=== PATIENT | female | born 1955 | race African-American/Black ===

== ENCOUNTER 2020-04-18 15:00 | Inpatient (IN) | payer MEDICARE, MEDICAID, SELFPAY ==
[2020-04-18 15:01] VITALS: BP 158/100; PULSE 89; RESP 19; TEMP 36.1; O2SAT 99; BMI 19.3
--- NOTE | 2020-04-18 15:05 | ED.RN ---
ENRICO GIBSON - [phone], SABRINA MANRIQUE - [phone], FRIENDS THAT CAN BE CALLED IF NEEDED.
--- NOTE | 2020-04-18 15:31 | ED.VISSUMM ---
- ER Visit Summary Date of Service: 04/18/20 Chief Complaint: Requesting detox for alcohol abuse History of Present Illness: The patient is a 65 F history of alcohol and cocaine abuse. Prior DVT and COPD. Currently has no physician is not taking her medications. Patient states that she has been sober for about a year but started drinking again heavily daily and also smoking crack cocaine. She denies being ill. She is requesting help. She states her last detox was 13 years ago. Physical Examination: Older female no acute distress vital signs stable afebrile. H EENT exam unremarkable. Neck nontender. Lungs clear to auscultation. Heart regular rhythm no murmur. Rate about 90. Chest were nontender. Abdomen soft nontender. Patient moving all 4 extremities. No track hill. 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 Neurologically she is awake and alert. Moving all 4 extremities. Test Results: Screening labs obtained. Urine for drugs abuse pending and will be evaluated by the hospitalist. Emergency Department Course and Treatment: I spoke to the hospitalist and he will admit the patient to general medical floor for detox Treatment Plan: Detox inpatient Disposition: admission Impression: Requesting detox for alcohol abuse History of alcohol and cocaine abuse History of COPD History of DVT This note was generated with [employer] dictation software. It may contain incorrect words, spelling, and punctuation that were not noted in review of the chart prior to signing ED Disposition - Plan for ED Patient: Referrals: NOT,DEFINED [Primary Care Provider] -
--- NOTE | 2020-04-18 15:49 | CM.ED ---
Social Work Consult: Substance Abuse Informant: Self-Referral Met with patient in room. Introduced self as well as social media editor role. Patient unable to stay still or focus on this social workers questions. Patient does report that drug of choice is anything but I don't like needles or pills. Patient states to have used Cocaine today. Patient reports to be homeless and from [place]. Patient states to have a history of Depression and inpatient psychiatric treatment but it is unclear as to when inpatient treatment was received. Patient states to have been clean for 13 years and then relapsed sometime in the past year. Patient restless and not wanting to speak further. Patient updated on [facility] program, patient is wanting to be admitted for medical management of withdrawal symptoms. Patient is seeking residential. Collaborating with Dr. Jesus. Plan is for admission. Telephone call to Debbie Abebe. Updated on patient being admitted and needing assessment completed. Debbie reports plan to complete assessment with patient tomorrow. Velma GODFREY, LUIS EDUARDO
[2020-04-18 16:00] VITALS: BP 158/100; PULSE 89; RESP 19; TEMP 36.6; O2SAT 99
[2020-04-18 16:04] LABS: Absolute Lymphocyte Count 2.36 X10^3/uL (0.83-4.51); Absolute Neutrophil Count 3.2 X10^3/uL (2.0-7.7); Basophil# 0.04 X10^3/uL; Basophil% 0.6 % (0-1); Eosinophil# 0.39 X10^3/uL; Eosinophils% 5.8 % (0-5); Hematocrit 44.9 % (37-47); Hemoglobin 14.9 g/dL (12.0-15.0); Lymphocyte # 2.36 X10^3/ul (4.0); Mean Corp Hgb Conc 33.2 g/dL (32-36); Mean Corpuscular Volume 93.3 fL (81-99); Mean Platelet Vol. 10.1 fl (6.2-12.0); Monocyte# 0.71 X10^3/uL; Monocyte% 10.5 % (0-10); NRBC Flagged by Analyzer 0 % (0-5); Neutrophil # 3.23 X10^3/uL (2.7-7.7); Platelet Count 235 K/mm3 (150-450); RBC Distribution Width CV 14.9 % (11.6-14.6); RBC Distribution Width SD 51.3 fl (35.1-43.9); Red Blood Count 4.81 M/mm3 (4.2-5.4); White Blood Count 6.7 K/mm3 (4.4-11.0)
[2020-04-18 16:20] LABS: Anion Gap 4 (5-15); BUN 29 mg/dL (7-18); BUN/Creat Ratio 23.2 RATIO (10-20); Calcium,Total 9.1 mg/dL (8.5-10.1); Chloride 108 mmol/L (98-107); Creatinine, Serum 1.25 mg/dL (0.55-1.02); EST Glomerular Filtration Rate 46 mL/min (>60); Est Glom Filt Rate - Afr Amer 55 mL/min (>60); Estimated Creatinine Clearance 39.07 ml/min; Glucose 101 mg/dL (74-106); Sodium Level 143 mmol/L (136-145)
[2020-04-18 16:30] VITALS: BMI 19.3
[2020-04-18 16:34] VITALS: BMI 19.3
[2020-04-18 16:46] LABS: Amphetamine Urine VISTA NEGATIVE (<1000 ng/mL); Barbiturate Urine VISTA NEGATIVE (< 200 ng/mL); Benzodiazepine Urine VISTA NEGATIVE (< 200 ng/mL); Cocaine Urine VISTA POSITIVE (< 300 ng/mL); Ecstacy Urine VISTA NEGATIVE (< 500 ng/mL); Methadone Urine VISTA NEGATIVE (< 300 ng/mL); PCP Urine VISTA NEGATIVE (< 25 ng/mL); THC Urine VISTA POSITIVE (< 50 ng/mL); Vista UDS pH Range 5
--- NOTE | 2020-04-18 16:54 | PCM.HP.STD ---
<Tory Terrell - Last Filed: 04/18/20 16:54> Problem List (1) Cocaine abuse Status: Acute (2) Alcohol abuse Status: Acute (3) History of DVT (deep vein thrombosis) Status: Chronic (4) Tobacco abuse Status: Chronic (5) COPD (chronic obstructive pulmonary disease) Status: Chronic (6) Depression Status: Chronic History of Present Illness Date of Admission: 04/18/20 Chief Complaint: Polysubstance use, alcohol withdrawal. The patient is a 65 year old F who presents the emergency room due to polysubstance use and alcohol withdrawal. Patient states she snorts/smokes crack daily and drinks beer or wine daily as well. HPI difficult to obtain as patient is falling asleep and laughing/appears under the influence during exam. Patient states she has been in multiple treatment programs over the years and at one point in her life was sober for 13 years. She is currently homeless, she is from [place]. When asked how much cocaine she uses, she states a lot. She reports she last used alcohol and cocaine earlier today. Patient requesting long-term treatment and states she is motivated to obtain sobriety. She reports a past medical history of COPD, tobacco dependence, history of DVT, depression. 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 Lives: Homeless Smoking Status: Current every day smoker Tobacco Use: Cigarettes Alcohol: Heavy Drugs: Cocaine, Marijuana - *Family History Maternal History Items: Hypertension Paternal History Items: - - States she does not know anything about that juliocesar Review of Systems Constitutional: Denies: Chills, Fever, Weight Change HEENT: Denies: Head Aches, Sinus Congestion, Sinus Drainage Cardiovascular: Denies: Chest Pain, Palpitations Respiratory: Denies: Cough, Shortness of breath at rest, Sputum production Gastrointestinal: Denies: Abdominal Pain, Nausea, Vomiting Genitourinary: Denies: Dysuria Musculoskeletal: Denies: Joint Pain, Joint Tenderness Skin: Denies: Rash, Wounds Neurological: Denies: Numbness, Tingling, Focal weakness Psychiatric: Reports: Depression. Denies: Anxiety, Homicidal Ideations, Suicidal Ideations Hematologic/ Lymphatic: Denies: Easy Bruising, Easy Bleeding VTE Information - Inpt Only VTE Present on Admission: No VTE Mechan Device Prophylaxis: None VTE Pharm Prophylaxis ordered?: Yes Patient Problems: Active and Suspected Problems Cocaine abuse (Acute) Alcohol abuse (Acute) - Physical Exam Vitals/I&O's: Vital Signs Temp Pulse Resp BP Pulse Ox 97.9 F 89 19 H 158/100 H 99 04/18/20 16:00 04/18/20 16:00 04/18/20 16:00 04/18/20 16:00 04/18/20 16:00 Oxygen Delivery Method Room Air Weight: 119 lb 7.849 oz Body Mass Index (BMI) 19.3 General: - - Drowsy, falls asleep during questioning. Laughing inappropriately. Restless. HEENT: Atraumatic, PERRLA, EOMI, Normocephalic Oral: Dry Mucosa Neck: Supple, No JVD, Negative Carotid Bruits Lungs: Clear to auscultation, Diminished Cardiovascular: Regular rate, No murmurs Abdomen: Bowel Sounds Present, Soft, Non Tender, Non-Distended Extremities: No clubbing, No cyanosis, No edema, Capillary Refill Less than 3 Seconds Skin: No rashes, No breakdown Musculoskeletal: No Tenderness to Palpation of Joints or Extremities Neurological: Cranial nerves II-XII grossly intact, Neuro grossly intact Psych/Mental Status: Impulsive, Restless Laboratory Results 04/18/20 15:10: Urine Opiates Screen NEGATIVE, Urine Methadone Screen NEGATIVE, Ur Barbiturates Screen NEGATIVE, Ur Phencyclidine Scrn NEGATIVE, Ur Amphetamines Screen NEGATIVE, U Methamphetamin-MDMA NEGATIVE, U Benzodiazepines Scrn NEGATIVE, Urine Cocaine Screen POSITIVE H, U Cannabinoids Screen POSITIVE H, Ur Drug Screen Comment 04/18/20 15:55: WBC 6.7, RBC 4.81, Hgb 14.9, Hct 44.9, MCV 93.3, MCH 31.0, MCHC 33.2, RDW Std Deviation 51.3 H, RDW Coeff of Oleg 14.9 H, Plt Count 235, MPV 10.1, Immature Gran % (Auto) 0.100, Neut % (Auto) 48.0, Lymph % (Auto) 35.0, Lumpkin % (Auto) 10.5 H, Eos % (Auto) 5.8 H, Baso % (Auto) 0.6, Absolute Neuts (auto) 3.2, Absolute Lymphs (auto) 2.36, Nucleated RBC % 0 04/18/20 15:55: Sodium 143, Potassium 4.0, Chloride 108 H, Carbon Dioxide 31.0, Anion Gap 4 L, BUN 29 H, Creatinine 1.25 H, Estim Creat Clear Calc 39.07, Est GFR (MDRD) Af Amer 55 L, Est GFR (MDRD) Non-Af 46 L, BUN/Creatinine Ratio 23.2 H, Glucose 101, Calcium 9.1 Current Medications Acetaminophen (Tylenol) 650 mg PO Q6H PRN PRN PRN Reason: Pain Score 1-10/Temp > 100.7 F Dicyclomine HCl (Bentyl) 20 mg PO Q6H PRN PRN PRN Reason: abdominal discomfort Folic Acid (Folic Acid) 1 mg PO DAILY@0800 [facility] Gabapentin (Neurontin) 300 mg PO Q8H PRN PRN PRN Reason: moderate to severe anxiety Hydroxyzine Pamoate (Vistaril Pamoate Capsule) 50 mg PO Q4H PRN PRN PRN Reason: mild anxiety Loperamide HCl (Imodium) 2 mg PO Q4H PRN PRN PRN Reason: LOOSE STOOLS Ondansetron HCl (Zofran) 4 mg IV Q8H PRN PRN PRN Reason: NAUSEA/VOMITING Ondansetron HCl (Zofran) 8 mg PO Q8H PRN PRN PRN Reason: NAUSEA Phenobarbital (Phenobarbital) 97.2 mg PO UD [facility]; Taper Stop: 04/23/20 00:59 Sodium Chloride () 10 - 40 ml IV UD PRN PRN Reason: SALINE FLUSH Thiamine HCl (Vitamin B1) 100 mg PO DAILYCM [facility] Trazodone HCl (Desyrel) 100 mg PO QHS PRN PRN Reason: INSOMNIA Assessment/Plan All Active Problems Cocaine abuse (Acute) Alcohol abuse (Acute) 1. Alcohol withdrawal-phenobarbital taper. PRN regimen for somatic complaints. Folic acid, thiamine, multivitamin supplementation. [facility] protocol. [facility] consult for residential evaluation. EtOH level pending. 2. Polysubstance abuse-tox screen positive for cocaine, marijuana. Patient requesting residential treatment. 3. Mildly increased creatinine-suspect secondary to dehydration. Gentle IV fluids. Trend BMP. 4. Tobacco dependence-encouraged cessation. Nicotine replacement patch. 5. History of DVT-states she was previously on Coumadin however is not been taking medications for several years. 6. Chronic COPD-as needed albuterol aerosol. 7. Depression-not on regimen. Outpatient follow-up. DVT prophylaxis- Lovenox sc This patient was seen by CHICO Vicente under the supervision of Dr. Hutson. <Estevan Hutson F - Last Filed: 04/18/20 18:31> History of Present Illness The patient is a 65 year old F [] Past Medical History Allergies No Known Allergies Allergy (Verified 04/18/20 15:01) - Physical Exam Vitals/I&O's: Vital Signs Temp Pulse Resp BP Pulse Ox 97.7 F L 76 18 153/76 H 95 04/18/20 17:08 04/18/20 17:08 04/18/20 17:08 04/18/20 17:08 04/18/20 17:08 Oxygen Delivery Method Room Air Weight: 119 lb 7.849 oz Body Mass Index (BMI) 19.3 Intake and Output for Last 24 Hours 04/16/20 04/17/20 04/18/20 23:59 23:59 23:59 Intake Total 500 / 500 Balance 500 / 500 Laboratory Results 04/18/20 15:10: Urine Opiates Screen NEGATIVE, Urine Methadone Screen NEGATIVE, Ur Barbiturates Screen NEGATIVE, Ur Phencyclidine Scrn NEGATIVE, Ur Amphetamines Screen NEGATIVE, U Methamphetamin-MDMA NEGATIVE, U Benzodiazepines Scrn NEGATIVE, Urine Cocaine Screen POSITIVE H, U Cannabinoids Screen POSITIVE H, Ur Drug Screen Comment 04/18/20 15:55: WBC 6.7, RBC 4.81, Hgb 14.9, Hct 44.9, MCV 93.3, MCH 31.0, MCHC 33.2, RDW Std Deviation 51.3 H, RDW Coeff of Oleg 14.9 H, Plt Count 235, MPV 10.1, Immature Gran % (Auto) 0.100, Neut % (Auto) 48.0, Lymph % (Auto) 35.0, Lumpkin % (Auto) 10.5 H, Eos % (Auto) 5.8 H, Baso % (Auto) 0.6, Absolute Neuts (auto) 3.2, Absolute Lymphs (auto) 2.36, Nucleated RBC % 0 04/18/20 15:55: Sodium 143, Potassium 4.0, Chloride 108 H, Carbon Dioxide 31.0, Anion Gap 4 L, BUN 29 H, Creatinine 1.25 H, Estim Creat Clear Calc 39.07, Est GFR (MDRD) Af Amer 55 L, Est GFR (MDRD) Non-Af 46 L, BUN/Creatinine Ratio 23.2 H, Glucose 101, Calcium 9.1 04/18/20 17:44: Ethyl Alcohol < 3.0 04/18/20 17:44: Hepatitis A IgM Ab Pending, Hepatitis A Ab Total Pending, Hep Bs Antigen Pending, Hep B Core Total Ab Pending, Hep B Core IgM Ab Pending 04/18/20 17:44: HIV 1&2 Antibody Pending Current Medications Acetaminophen (Tylenol) 650 mg PO Q6H PRN PRN PRN Reason: Pain Score 1-10/Temp > 100.7 F Dicyclomine HCl (Bentyl) 20 mg PO Q6H PRN PRN PRN Reason: abdominal discomfort Enoxaparin Sodium (Lovenox) 40 mg SC DAILY@0600 [facility] Folic Acid (Folic Acid) 1 mg PO DAILY@0800 [facility] Gabapentin (Neurontin) 300 mg PO Q8H PRN PRN PRN Reason: moderate to severe anxiety Hydroxyzine Pamoate (Vistaril Pamoate Capsule) 50 mg PO Q4H PRN PRN PRN Reason: mild anxiety Sodium Chloride () 1,000 mls @ 150 mls/hr IV .Q6H40M [facility] Stop: 04/18/20 23:59 Last Admin: 04/18/20 18:10 Dose: 150 mls/hr Documented by: Loperamide HCl (Imodium) 2 mg PO Q4H PRN PRN PRN Reason: LOOSE STOOLS Nicotine (Nicoderm Cq (Pbkc)) 21 mg TRANSDERM. DAILY [facility] Last Admin: 04/18/20 18:10 Dose: 21 mg Documented by: Nutritional Formula (Lactose Free) (Ensure Enlive) 120 ml PO 4X/DAY [facility] Last Admin: 04/18/20 18:11 Dose: Not Given Documented by: Ondansetron HCl (Zofran) 4 mg IV Q8H PRN PRN PRN Reason: NAUSEA/VOMITING Ondansetron HCl (Zofran) 8 mg PO Q8H PRN PRN PRN Reason: NAUSEA Phenobarbital (Phenobarbital) 97.2 mg PO Q4H [facility]; Taper Stop: 04/23/20 00:59 Last Admin: 04/18/20 18:10 Dose: 97.2 mg Documented by: Sodium Chloride () 10 - 40 ml IV UD PRN PRN Reason: SALINE FLUSH Last Admin: 04/18/20 18:10 Dose: 10 ml Documented by: Thiamine HCl (Vitamin B1) 100 mg PO DAILYCM [facility] Trazodone HCl (Desyrel) 100 mg PO QHS PRN PRN Reason: INSOMNIA Addendum: Dr. Hutson I personally examined the patient and reviewed the chart. I agree with the above. 65-year-old female presents with polysubstance abuse and alcohol withdrawal. She also smokes crack cocaine. She is from [place] however she came down here for detox. She cannot tell me how much alcohol she drinks so she says that that is a lot. She also says it is a lot for the crack that she smokes. On evaluation she is very anxious and restless and she she has periods of being tearful. She states that she lost everything in November including her home and her daughters. She is hopeful that she will be able to get into a long-term inpatient rehab unit. She cannot tell me any medical history of her dad as they are estranged, and her mother had hypertension. We will start her on the alcohol withdrawal protocol with phenobarbital and will obtain a UDS for further clarification of what all she is used. Also obtain a hepatitis panel for completeness. Inpatient E&M: 06456 Init Hosp L3
[2020-04-18 17:08] VITALS: BP 153/76; PULSE 76; RESP 18; TEMP 36.5; O2SAT 95
--- NOTE | 2020-04-18 17:24 | NURSING ---
Patient requests that her son, Aries, be the service advocate contact. Aries was called by this RN at this time to update per patient's request. Demo sheet updated with his information. Both patient and Aries are aware that there are no visitors allowed while in the [facility] program.
[2020-04-18] MEDS: 0.9% Saline Lock 10 ML Syringe IV (18:10)
[2020-04-18] MEDS: 0.9% Normal Saline 1,000 ML 150 ML IV (18:10)
[2020-04-18] MEDS: Phenobarbital 32.4 MG Tablet 64.8 MG PO ×2 (18:10→21:41)
[2020-04-18 18:16] LABS: Alcohol, Blood (Medical)-Serum < 3.0 mg/dL
[2020-04-18 19:16] LABS: HIV - WCH Non-Reactive (Nonreactive)
[2020-04-18 19:55] VITALS: BP 136/67; PULSE 71; RESP 17; TEMP 36.6; O2SAT 95
[2020-04-18 19:56] VITALS: BP 136/67; PULSE 71; RESP 17; TEMP 36.6; O2SAT 95
[2020-04-18] MEDS: Gabapentin 300 MG Capsule PO (21:44)
[2020-04-19 00:23] VITALS: BP 117/65; PULSE 68; RESP 16; TEMP 36.6; O2SAT 98
[2020-04-19] MEDS: Phenobarbital 32.4 MG Tablet 64.8 MG PO ×6 (00:27→20:30)
[2020-04-19 00:32] VITALS: BP 117/65; PULSE 68; RESP 16; TEMP 36.6; O2SAT 98
[2020-04-19 05:13] VITALS: BP 133/69; PULSE 66; RESP 16; TEMP 36.6; O2SAT 96
[2020-04-19] MEDS: Enoxaparin 40 MG/0.4 ML Syringe SC (05:18)
[2020-04-19 08:31] VITALS: BP 127/80; PULSE 72; RESP 16; TEMP 36.6; O2SAT 95
[2020-04-19] MEDS: Folic Acid 1 MG Tablet PO (09:17)
[2020-04-19] MEDS: Thiamine Hydrochloride 100 MG Tablet PO (09:17)
--- NOTE | 2020-04-19 10:08 | CASEMGMT ---
Social Work Note Pt is [facility] pt. SW placed a call to Debbie at [facility] and left message that pt will need to be seen. Cherry Ochoa PETROPHYSICIST, WORKSHOP MANAGER
--- NOTE | 2020-04-19 11:23 | PN_ITS ---
<Tory Terrell - Last Filed: 04/19/20 11:27> Patient Problems: Active and Suspected Problems Cocaine abuse (Acute) Alcohol abuse (Acute) Subjective: Patient seen and examined. Requesting Ensure and sugar. Denies withdrawal symptoms. Falling asleep intermittently during conversation. Patient again states that she needs residential treatment. - Physical Exam Vitals/I&O's: Vital Signs Temp Pulse Resp BP Pulse Ox 97.8 F 72 16 127/80 H 95 04/19/20 08:31 04/19/20 08:31 04/19/20 08:31 04/19/20 08:31 04/19/20 08:31 Oxygen Delivery Method Room Air Weight: 119 lb 7.849 oz Body Mass Index (BMI) 19.3 Intake and Output for Last 24 Hours 04/17/20 04/18/20 04/19/20 23:59 23:59 23:59 Intake Total 740 / 740 1320 / 1320 Balance 740 / 740 1320 / 1320 General: Alert, Oriented x3, Cooperative, No apparent distress HEENT: Atraumatic, PERRLA, EOMI, Normocephalic Neck: Supple, No JVD, Negative Carotid Bruits Lungs: Clear to auscultation, Diminished Cardiovascular: Regular rate, No murmurs Abdomen: Bowel Sounds Present, Soft, Non Tender, Non-Distended Extremities: No clubbing, No cyanosis, No edema, Capillary Refill Less than 3 Seconds Skin: No rashes, No breakdown Musculoskeletal: No Tenderness to Palpation of Joints or Extremities Neurological: Cranial nerves II-XII grossly intact, Neuro grossly intact Psych/Mental Status: Impulsive Laboratory Results 04/18/20 15:10: Urine Opiates Screen NEGATIVE, Urine Methadone Screen NEGATIVE, Ur Barbiturates Screen NEGATIVE, Ur Phencyclidine Scrn NEGATIVE, Ur Amphetamines Screen NEGATIVE, U Methamphetamin-MDMA NEGATIVE, U Benzodiazepines Scrn NEGATIVE, Urine Cocaine Screen POSITIVE H, U Cannabinoids Screen POSITIVE H, Ur Drug Screen Comment 04/18/20 15:55: WBC 6.7, RBC 4.81, Hgb 14.9, Hct 44.9, MCV 93.3, MCH 31.0, MCHC 33.2, RDW Std Deviation 51.3 H, RDW Coeff of Oleg 14.9 H, Plt Count 235, MPV 10.1, Immature Gran % (Auto) 0.100, Neut % (Auto) 48.0, Lymph % (Auto) 35.0, Jackson % (Auto) 10.5 H, Eos % (Auto) 5.8 H, Baso % (Auto) 0.6, Absolute Neuts (auto) 3.2, Absolute Lymphs (auto) 2.36, Nucleated RBC % 0 04/18/20 15:55: Sodium 143, Potassium 4.0, Chloride 108 H, Carbon Dioxide 31.0, Anion Gap 4 L, BUN 29 H, Creatinine 1.25 H, Estim Creat Clear Calc 39.07, Est GFR (MDRD) Af Amer 55 L, Est GFR (MDRD) Non-Af 46 L, BUN/Creatinine Ratio 23.2 H , Glucose 101, Calcium 9.1 04/18/20 17:44: Ethyl Alcohol < 3.0 04/18/20 17:44: Hepatitis A IgM Ab Pending, Hepatitis A Ab Total Pending, Hep Bs Antigen Pending, Hep B Core Total Ab Pending, Hep B Core IgM Ab Pending 04/18/20 17:44: HIV 1&2 Antibody Non-Reactive 04/18/20 18:55: COVID-19 ([facility]) Not Detected Current Medications Acetaminophen (Tylenol) 650 mg PO Q6H PRN PRN PRN Reason: Pain Score 1-10/Temp > 100.7 F Dicyclomine HCl (Bentyl) 20 mg PO Q6H PRN PRN PRN Reason: abdominal discomfort Enoxaparin Sodium (Lovenox) 40 mg SC DAILY@0600 [facility] Last Admin: 04/19/20 05:18 Dose: 40 mg Documented by: Folic Acid (Folic Acid) 1 mg PO DAILY@0800 [facility] Last Admin: 04/19/20 09:17 Dose: 1 mg Documented by: Gabapentin (Neurontin) 300 mg PO Q8H PRN PRN PRN Reason: moderate to severe anxiety Last Admin: 04/18/20 21:44 Dose: 300 mg Documented by: Hydroxyzine Pamoate (Vistaril Pamoate Capsule) 50 mg PO Q4H PRN PRN PRN Reason: mild anxiety Loperamide HCl (Imodium) 2 mg PO Q4H PRN PRN PRN Reason: LOOSE STOOLS Nicotine (Nicoderm Cq (Pbkc)) 21 mg TRANSDERM. DAILY [facility] Last Admin: 04/19/20 10:04 Dose: 21 mg Documented by: Nutritional Formula (Lactose Free) (Ensure Enlive) 120 ml PO 4X/DAY [facility] Last Admin: 04/19/20 09:17 Dose: 120 ml Documented by: Ondansetron HCl (Zofran) 4 mg IV Q8H PRN PRN PRN Reason: NAUSEA/VOMITING Ondansetron HCl (Zofran) 8 mg PO Q8H PRN PRN PRN Reason: NAUSEA Phenobarbital (Phenobarbital) 97.2 mg PO Q4H [facility]; Taper Stop: 04/23/20 00:59 Last Admin: 04/19/20 09:17 Dose: 97.2 mg Documented by: Sodium Chloride () 10 - 40 ml IV UD PRN PRN Reason: SALINE FLUSH Last Admin: 04/18/20 18:10 Dose: 10 ml Documented by: Thiamine HCl (Vitamin B1) 100 mg PO DAILYCM [facility] Last Admin: 04/19/20 09:17 Dose: 100 mg Documented by: Trazodone HCl (Desyrel) 100 mg PO QHS PRN PRN Reason: INSOMNIA Medical Necessity - Tobacco Use Smoking Status: Current every day smoker Tobacco Use: Cigarettes Assessment/Plan All Active Problems Cocaine abuse (Acute) Alcohol abuse (Acute) 1. Alcohol withdrawal-phenobarbital taper. PRN regimen for somatic complaints. Folic acid, thiamine, multivitamin supplementation. [facility] protocol. [facility] consult for residential evaluation. EtOH level <3. 2. Polysubstance abuse-tox screen positive for cocaine, marijuana. Patient requesting residential treatment. 3. Mildly increased creatinine-suspect secondary to dehydration. 1 L fluids given. Repeat BMP. 4. Tobacco dependence-encouraged cessation. Nicotine replacement patch. 5. History of DVT-states she was previously on Coumadin however is not been taking medications for several years. 6. Chronic COPD-as needed albuterol aerosol. 7. Depression-not on regimen. Outpatient follow-up. DVT prophylaxis- Lovenox sc This patient was seen by CHICO Vicente under the supervision of Dr. Clarke. <Natasha Clarke - Last Filed: 04/19/20 14:34> - Physical Exam Vitals/I&O's: Vital Signs Temp Pulse Resp BP Pulse Ox 97.8 F 72 16 127/80 H 95 04/19/20 08:31 04/19/20 08:31 04/19/20 08:31 04/19/20 08:31 04/19/20 08:31 Oxygen Delivery Method Room Air Weight: 54.2 kg Body Mass Index (BMI) 19.3 Intake and Output for Last 24 Hours 04/17/20 04/18/20 04/19/20 23:59 23:59 23:59 Intake Total 740 / 740 1320 / 1320 Balance 740 / 740 1320 / 1320 Laboratory Results 04/18/20 15:10: Urine Opiates Screen NEGATIVE, Urine Methadone Screen NEGATIVE, Ur Barbiturates Screen NEGATIVE, Ur Phencyclidine Scrn NEGATIVE, Ur Amphetamines Screen NEGATIVE, U Methamphetamin-MDMA NEGATIVE, U Benzodiazepines Scrn NEGATIVE, Urine Cocaine Screen POSITIVE H, U Cannabinoids Screen POSITIVE H, Ur Drug Screen Comment 04/18/20 15:55: WBC 6.7, RBC 4.81, Hgb 14.9, Hct 44.9, MCV 93.3, MCH 31.0, MCHC 33.2, RDW Std Deviation 51.3 H, RDW Coeff of Oleg 14.9 H, Plt Count 235, MPV 10.1, Immature Gran % (Auto) 0.100, Neut % (Auto) 48.0, Lymph % (Auto) 35.0, Jackson % (Auto) 10.5 H, Eos % (Auto) 5.8 H, Baso % (Auto) 0.6, Absolute Neuts (auto) 3.2, Absolute Lymphs (auto) 2.36, Nucleated RBC % 0 04/18/20 15:55: Sodium 143, Potassium 4.0, Chloride 108 H, Carbon Dioxide 31.0, Anion Gap 4 L, BUN 29 H, Creatinine 1.25 H, Estim Creat Clear Calc 39.07, Est GFR (MDRD) Af Amer 55 L, Est GFR (MDRD) Non-Af 46 L, BUN/Creatinine Ratio 23.2 H , Glucose 101, Calcium 9.1 04/18/20 17:44: Ethyl Alcohol < 3.0 04/18/20 17:44: Hepatitis A IgM Ab Pending, Hepatitis A Ab Total Pending, Hep Bs Antigen Pending, Hep B Core Total Ab Pending, Hep B Core IgM Ab Pending 04/18/20 17:44: HIV 1&2 Antibody Non-Reactive 04/18/20 18:55: COVID-19 (SHEELA) Not Detected Current Medications Acetaminophen (Tylenol) 650 mg PO Q6H PRN PRN PRN Reason: Pain Score 1-10/Temp > 100.7 F Dicyclomine HCl (Bentyl) 20 mg PO Q6H PRN PRN PRN Reason: abdominal discomfort Enoxaparin Sodium (Lovenox) 40 mg SC DAILY@0600 [facility] Last Admin: 04/19/20 05:18 Dose: 40 mg Documented by: Folic Acid (Folic Acid) 1 mg PO DAILY@0800 [facility] Last Admin: 04/19/20 09:17 Dose: 1 mg Documented by: Gabapentin (Neurontin) 300 mg PO Q8H PRN PRN PRN Reason: moderate to severe anxiety Last Admin: 04/18/20 21:44 Dose: 300 mg Documented by: Hydroxyzine Pamoate (Vistaril Pamoate Capsule) 50 mg PO Q4H PRN PRN PRN Reason: mild anxiety Loperamide HCl (Imodium) 2 mg PO Q4H PRN PRN PRN Reason: LOOSE STOOLS Nicotine (Nicoderm Cq (Pbkc)) 21 mg TRANSDERM. DAILY [facility] Last Admin: 04/19/20 10:04 Dose: 21 mg Documented by: Nutritional Formula (Lactose Free) (Ensure Enlive) 120 ml PO 4X/DAY [facility] Last Admin: 04/19/20 09:17 Dose: 120 ml Documented by: Ondansetron HCl (Zofran) 4 mg IV Q8H PRN PRN PRN Reason: NAUSEA/VOMITING Ondansetron HCl (Zofran) 8 mg PO Q8H PRN PRN PRN Reason: NAUSEA Phenobarbital (Phenobarbital) 97.2 mg PO Q4H [facility]; Taper Stop: 04/23/20 00:59 Last Admin: 04/19/20 09:17 Dose: 97.2 mg Documented by: Sodium Chloride () 10 - 40 ml IV UD PRN PRN Reason: SALINE FLUSH Last Admin: 04/18/20 18:10 Dose: 10 ml Documented by: Thiamine HCl ([facility]itamin B1) [facility] Last Admin: 04/19/20 09:17 Dose: 100 mg Documented by: Trazodone HCl (Desyrel) 100 mg PO QHS PRN PRN Reason: INSOMNIA Assessment/Plan This patient was seen in conjunction with Tory Terrell NP. I have independently interviewed and examined the patient and reviewed pertinent historical, laboratory, and other data. Please refer to her note for patient's presentation, findings, and recommendations. Patient was seen and examined. She appeared lethargic. Denied any new complaints. No acute events overnight. Vitals were reviewed -stable Physical Exam: Gen: Lethargic, not pale, not jaundiced, alert oriented x3 CVS:HS I +II, regular, no murmurs RESP: Diminished at lung bases GI: BS present and normal, nontender, no palpable organs EXT:No edema Labs reviewed: ASSESSMENT: 1. Acute alcohol withdrawal 2. Polysubstance use disorder 3. Dehydration 4. Nicotine dependence 5. Depression 6. COPD Meds reviewed Patient continues to require medication and monitoring for withdrawal based on regular assessment and remains appropriate for ASAM level 4.0 Plan: Continue on the withdrawal protocol Continue nicotine replacement Will monitor sedation to prevent oversedation Inpatient E&M: 51515 Subs Hosp L2
[2020-04-19 13:33] LABS: Anion Gap 4 (5-15); BUN 17 mg/dL (7-18); BUN/Creat Ratio 16.5 RATIO (10-20); Calcium,Total 8.4 mg/dL (8.5-10.1); Chloride 110 mmol/L (98-107); Creatinine, Serum 1.03 mg/dL (0.55-1.02); EST Glomerular Filtration Rate 57 mL/min (>60); Est Glom Filt Rate - Afr Amer 69 mL/min (>60); Estimated Creatinine Clearance 47.21 ml/min; Glucose 135 mg/dL (74-106); Potassium 4.2 mmol/L (3.5-5.1); Sodium Level 141 mmol/L (136-145)
[2020-04-19 14:00] VITALS: BP 136/77; PULSE 93; RESP 16; TEMP 37.4; O2SAT 96
--- NOTE | 2020-04-19 16:40 | ADDICTION ---
This curriculum writer met with patient in her room to conduct ASAM assessment and to begin discharge planning. Patient was asleep when this curriculum writer arrived but roused to verbal queuing. She was alert and oriented x4 and participated appropriately. She appeared to be experiencing a flight of ideas and was very focused on ?don?t let them throw me to the wolves?. She nodded off multiple times during assessment but roused easily. This curriculum writer has made referrals to [facility] and [facility] for women?s residential treatment. This curriculum writer has requested that patient remain in the hospital until 04/25/2020 to allow for coordination of care and warm handoff to agency that will be taking her for residential. This curriculum writer will continue to coordinate as needed. ZBIGNIEW?s obtained for both agencies. ASAM, MSE, DUDIT, AUDIT and ROIs to be faxed to . She is appropraite for 4.0 Medically Managed Intensive Inpatient Services based on completed ASAM assessment.
[2020-04-19 20:19] VITALS: BP 151/82; PULSE 88; RESP 16; TEMP 37.1; O2SAT 97
[2020-04-20] MEDS: Phenobarbital 32.4 MG Tablet 64.8 MG PO ×2 (01:19→17:18)
[2020-04-20 01:30] VITALS: BP 128/78; PULSE 74; RESP 16; TEMP 36.7; O2SAT 98
[2020-04-20 05:07] LABS: HEPATITIS B SURFACE AG Negative (Negative); Hepatitis A AB, Total Positive (Negative); Hepatitis A IgM Antibody Negative (Negative); Hepatitis B Core AB IgM Negative (Negative); Hepatitis B Core Ab Total Negative (Negative)
--- NOTE | 2020-04-20 05:39 | NURSING ---
Pt very agitated at this time. Pulled out IV and will not let this RN start new one. Also refusing am medications. Yelling at staff to leave room. Wants to sleep at this time.
[2020-04-20 08:00] VITALS: BP 140/85; PULSE 75; RESP 18; TEMP 36.7; O2SAT 99
[2020-04-20 09:35] LABS: Hep B Surface Antibodies Non Reactive (.)
[2020-04-20 09:37] LABS: Hepatitis C Ab >11.0 s/co ratio (0.0-0.9)
--- NOTE | 2020-04-20 10:56 | ADDICTION ---
This web content writer met with patient in her room. She was awake, alert and oriented and in a euthymic mood. She presented with broad affect and effectively communicated with this web content writer. This web content writer informed patient that she may be able to engage in inpatient treatment at the [facility] and obtained an ZBIGNIEW. This web content writer obtained medical records including nursing and BH notes, demographics, and insurance information to send to potential place of referral. Patient amiable.
--- NOTE | 2020-04-20 11:40 | PCM.PROGNOTE ---
<Tory Terrell - Last Filed: 04/20/20 11:48> Patient Problems: Active and Suspected Problems Cocaine abuse (Acute) Alcohol abuse (Acute) Subjective: Patient seen and examined. Lethargic this morning and overnight per nursing report. Patient arouses to noxious stimuli however becomes irritated when she is awoken. No active withdrawal symptoms. - Physical Exam Vitals/I&O's: Vital Signs Temp Pulse Resp BP Pulse Ox 98.1 F 75 18 140/85 H 99 04/20/20 08:00 04/20/20 08:00 04/20/20 08:00 04/20/20 08:00 04/20/20 08:00 Oxygen Delivery Method Room Air Weight: 119 lb 7.849 oz Body Mass Index (BMI) 19.3 Intake and Output for Last 24 Hours 04/18/20 04/19/20 04/20/20 23:59 23:59 23:59 Intake Total 740 / 740 1800 / 1800 Balance 740 / 740 1800 / 1800 General: Lethargic HEENT: Atraumatic, PERRLA, EOMI, Normocephalic Oral: Dry Mucosa Neck: Supple, No JVD, Negative Carotid Bruits Lungs: Clear to auscultation, Normal air movement Cardiovascular: Regular rate, No murmurs Abdomen: Bowel Sounds Present, Soft, Non Tender, Non-Distended Extremities: No clubbing, No cyanosis, No edema, Capillary Refill Less than 3 Seconds Skin: No rashes, No breakdown Musculoskeletal: No Tenderness to Palpation of Joints or Extremities Neurological: Cranial nerves II-XII grossly intact, Neuro grossly intact Psych/Mental Status: Impulsive Laboratory Results 04/18/20 17:44: Hepatitis A IgM Ab Negative, Hepatitis A Ab Total Positive H, Hep Bs Antigen Negative, Hep B Core Total Ab Negative, Hep B Core IgM Ab Negative, Hepatitis C Ab Confirm >11.0 H 04/19/20 12:55: Sodium 141, Potassium 4.2, Chloride 110 H, Carbon Dioxide 27.0, Anion Gap 4 L, BUN 17, Creatinine 1.03 H, Estim Creat Clear Calc 47.21, Est GFR (MDRD) Af Amer 69, Est GFR (MDRD) Non-Af 57 L, BUN/Creatinine Ratio 16.5, Glucose 135 H, Calcium 8.4 L Current Medications Acetaminophen (Tylenol) 650 mg PO Q6H PRN PRN PRN Reason: Pain Score 1-10/Temp > 100.7 F Dicyclomine HCl (Bentyl) 20 mg PO Q6H PRN PRN PRN Reason: abdominal discomfort Enoxaparin Sodium (Lovenox) 40 mg SC DAILY@0600 [facility] Last Admin: 04/20/20 05:29 Dose: Not Given Documented by: Folic Acid (Folic Acid) 1 mg PO DAILY@0800 [facility] Last Admin: 04/20/20 09:21 Dose: Not Given Documented by: Gabapentin (Neurontin) 300 mg PO Q8H PRN PRN PRN Reason: moderate to severe anxiety Last Admin: 04/18/20 21:44 Dose: 300 mg Documented by: Hydroxyzine Pamoate (Vistaril Pamoate Capsule) 50 mg PO Q4H PRN PRN PRN Reason: mild anxiety Loperamide HCl (Imodium) 2 mg PO Q4H PRN PRN PRN Reason: LOOSE STOOLS Nicotine (Nicoderm Cq (Pbkc)) 21 mg TRANSDERM. DAILY [facility] Last Admin: 04/20/20 10:35 Dose: 21 mg Documented by: Nutritional Formula (Lactose Free) (Ensure Enlive) 120 ml PO 4X/DAY [facility] Last Admin: 04/20/20 10:41 Dose: 120 ml Documented by: Ondansetron HCl (Zofran) 4 mg IV Q8H PRN PRN PRN Reason: NAUSEA/VOMITING Ondansetron HCl (Zofran) 8 mg PO Q8H PRN PRN PRN Reason: NAUSEA Phenobarbital (Phenobarbital) 64.8 mg PO Q4H [facility]; Taper Stop: 04/23/20 00:59 Last Admin: 04/20/20 09:21 Dose: Not Given Documented by: Sodium Chloride () 10 - 40 ml IV UD PRN PRN Reason: SALINE FLUSH Last Admin: 04/18/20 18:10 Dose: 10 ml Documented by: Thiamine HCl (Vitamin B1) 100 mg PO DAILYCM [facility] Last Admin: 04/20/20 09:21 Dose: Not Given Documented by: Trazodone HCl (Desyrel) 100 mg PO QHS PRN PRN Reason: INSOMNIA Medical Necessity - Tobacco Use Smoking Status: Current every day smoker Tobacco Use: Cigarettes Assessment/Plan All Active Problems Cocaine abuse (Acute) Alcohol abuse (Acute) 1. Alcohol withdrawal-phenobarbital taper. PRN regimen for somatic complaints. Folic acid, thiamine, multivitamin supplementation. [facility] protocol. [place] consult for residential evaluation. EtOH level <3. Patient very lethargic this morning. Will discuss with Dr. Pereyra recommendations on de-escalating phenobarbital taper. 2. Polysubstance abuse-tox screen positive for cocaine, marijuana. Patient requesting residential treatment. 3. Mildly increased creatinine-suspect secondary to dehydration. 1 L fluids given. Repeat BMP improved. 4. Tobacco dependence-encouraged cessation. Nicotine replacement patch. 5. History of DVT-states she was previously on Coumadin however is not been taking medications for several years. 6. Chronic COPD-as needed albuterol aerosol. 7. Depression-not on regimen. Outpatient follow-up. 8. Hepatitis a/hepatitis C-outpatient follow-up. DVT prophylaxis- Lovenox sc Discharge planning: Plan for residential treatment facility when bed is available. This patient was seen by CHICO Vicente under the supervision of Dr. Clarke. <Natasha Clarke - Last Filed: 04/20/20 13:36> - Physical Exam Vitals/I&O's: Vital Signs Temp Pulse Resp BP Pulse Ox 97.6 F L 86 18 110/57 L 95 04/20/20 13:16 04/20/20 13:16 04/20/20 13:16 04/20/20 13:16 04/20/20 13:16 Oxygen Delivery Method Room Air Weight: 54.2 kg Body Mass Index (BMI) 19.3 Intake and Output for Last 24 Hours 04/18/20 04/19/20 04/20/20 23:59 23:59 23:59 Intake Total 740 / 740 1800 / 1800 240 / 240 Balance 740 / 740 1800 / 1800 240 / 240 Laboratory Results 04/18/20 17:44: Hepatitis A IgM Ab Negative, Hepatitis A Ab Total Positive H, Hep Bs Antigen Negative, Hep B Core Total Ab Negative, Hep B Core IgM Ab Negative, Hepatitis C Ab Confirm >11.0 H 04/19/20 12:55: Sodium 141, Potassium 4.2, Chloride 110 H, Carbon Dioxide 27.0, Anion Gap 4 L, BUN 17, Creatinine 1.03 H, Estim Creat Clear Calc 47.21, Est GFR (MDRD) Af Amer 69, Est GFR (MDRD) Non-Af 57 L, BUN/Creatinine Ratio 16.5, Glucose 135 H, Calcium 8.4 L Current Medications Acetaminophen (Tylenol) 650 mg PO Q6H PRN PRN PRN Reason: Pain Score 1-10/Temp > 100.7 F Dicyclomine HCl (Bentyl) 20 mg PO Q6H PRN PRN PRN Reason: abdominal discomfort Enoxaparin Sodium (Lovenox) 40 mg SC DAILY@0600 [facility] Last Admin: 04/20/20 05:29 Dose: Not Given Documented by: Folic Acid (Folic Acid) 1 mg PO DAILY@0800 [facility] Last Admin: 04/20/20 09:21 Dose: Not Given Documented by: Gabapentin (Neurontin) 300 mg PO Q8H PRN PRN PRN Reason: moderate to severe anxiety Last Admin: 04/18/20 21:44 Dose: 300 mg Documented by: Hydroxyzine Pamoate (Vistaril Pamoate Capsule) 50 mg PO Q4H PRN PRN PRN Reason: mild anxiety Loperamide HCl (Imodium) 2 mg PO Q4H PRN PRN PRN Reason: LOOSE STOOLS Nicotine (Nicoderm Cq (Pbkc)) 21 mg TRANSDERM. DAILY [facility] Last Admin: 04/20/20 10:35 Dose: 21 mg Documented by: Nutritional Formula (Lactose Free) (Ensure Enlive) 120 ml PO 4X/DAY [facility] Last Admin: 04/20/20 10:41 Dose: 120 ml Documented by: Ondansetron HCl (Zofran) 4 mg IV Q8H PRN PRN PRN Reason: NAUSEA/VOMITING Ondansetron HCl (Zofran) 8 mg PO Q8H PRN PRN PRN Reason: NAUSEA Phenobarbital (Phenobarbital) 64.8 mg PO Q4H [facility]; Taper Stop: 04/23/20 00:59 Last Admin: 04/20/20 13:18 Dose: Not Given Documented by: Sodium Chloride () 10 - 40 ml IV UD PRN PRN Reason: SALINE FLUSH Last Admin: 04/18/20 18:10 Dose: 10 ml Documented by: Thiamine HCl (Vitamin B1) 100 mg PO DAILYCM [facility] Last Admin: 04/20/20 09:21 Dose: Not Given Documented by: Trazodone HCl (Desyrel) 100 mg PO QHS PRN PRN Reason: INSOMNIA Assessment/Plan This patient was seen in conjunction with Tory Terrell NP. I have independently interviewed and examined the patient and reviewed pertinent historical, laboratory, and other data. Please refer to her note for patient's presentation, findings, and recommendations. Patient was seen and examined. She is sleeping; irritated when woken up. No acute events overnight. Vitals were reviewed -stable Physical Exam: Gen: Lethargic, not pale, not jaundiced, alert oriented x3 CVS:HS I +II, regular, no murmurs RESP: Diminished at lung bases GI: BS present and normal, nontender, no palpable organs EXT:No edema Labs reviewed: ASSESSMENT: 1. Acute alcohol withdrawal 2. Polysubstance use disorder 3. Dehydration 4. Nicotine dependence 5. Depression 6. COPD Meds reviewed Patient continues to require medication and monitoring for withdrawal based on regular assessment and remains appropriate for ASAM level 4.0 Plan: Hold phenobarb when lethargic, continue to monitor with CIWA protocol Continue nicotine replacement Will monitor sedation to prevent oversedation Inpatient E&M: 39795 Subs Hosp L2
--- NOTE | 2020-04-20 11:55 | CASEMGMT ---
Addendum entered by Cherry Ochoa 04/20/20 15:00: VITA received call from Debbie at [facility] requesting pt sign [facility] [place]. SW in to speak with pt. Pt signed ZBIGNIEW for [facility]. SW faxed ZBIGNIEW to Debbie at [facility], placed original on pt's chart. Original Note: Social Work Note Jennifer with [facility] updated this worker that pt would like to speak with this worker. SW in to speak with pt. Pt states what are you doing with me for discharge? SW explained that Debbie from [facility] is the person working on the discharge and the [facility] SW are not the ones working on her discharge. SW explained that that is why Debbie from [facility] met with pt yesterday and today as she is the one facilitating pt's discharge. Pt asked when am I leaving? SW explained that discharge depends on when pt gets through the medical detox and when Debbie can arrange discharge plans for pt. Pt states understanding. SW spoke with HEALTH CARE LAW SPECIALIST, it is not appropriate to keep pt until Saturday for [facility] residential. [facility] should look for different options for pt. Debbie from [facility] at [facility] and SW updated Debbie that it is not medically necessary to keep pt until Saturday to get into [facility] residential. Cherry Ochoa DINKEY LOCOMOTIVE OPERATOR, TOOL AND GAUGE INSPECTOR
[2020-04-20 13:16] VITALS: BP 110/57; PULSE 86; RESP 18; TEMP 36.4; O2SAT 95
[2020-04-20 20:38] VITALS: BP 116/67; PULSE 82; RESP 18; TEMP 37.2; O2SAT 96
[2020-04-21 02:52] VITALS: BP 140/74; PULSE 80; RESP 18; TEMP 36.6; O2SAT 98
[2020-04-21] MEDS: Enoxaparin 40 MG/0.4 ML Syringe SC (05:53)
[2020-04-21 08:00] VITALS: BP 133/69; PULSE 88; RESP 18; TEMP 37.1; O2SAT 98
[2020-04-21] MEDS: Folic Acid 1 MG Tablet PO (08:48)
[2020-04-21] MEDS: Thiamine Hydrochloride 100 MG Tablet PO (08:49)
[2020-04-21] MEDS: Magnesium Hydroxide 30 ML UDC PO (10:28)
[2020-04-21] MEDS: Phenobarbital 32.4 MG Tablet PO ×2 (10:30→21:54)
--- NOTE | 2020-04-21 13:41 | PCM.PN.HOSP ---
<Faustino Wesley - Last Filed: 04/21/20 13:41> Patient Problems: Active and Suspected Problems Cocaine abuse (Acute) Alcohol abuse (Acute) Reason for Visit: alcohol withdrawal Subjective: lethargic. mild tremor. no anxiety, nausea, vomiting. pt still without place to go at dc. Vitals/I&O's: Vital Signs Temp Pulse Resp BP Pulse Ox 98.7 F 88 18 133/69 H 98 04/21/20 08:00 04/21/20 08:00 04/21/20 08:00 04/21/20 08:00 04/21/20 08:00 Oxygen Delivery Method Room Air Weight: 119 lb 7.849 oz Body Mass Index (BMI) 19.3 Intake and Output for Last 24 Hours 04/19/20 04/20/20 04/21/20 23:59 23:59 23:59 Intake Total 1800 / 1800 1670 / 1670 940 / 940 Balance 1800 / 1800 1670 / 1670 940 / 940 General: Alert, Oriented x3, Cooperative HEENT: Atraumatic, PERRLA, EOMI, Normocephalic Neck: Supple, No JVD, Negative Carotid Bruits Lungs: Clear to auscultation, Normal air movement Cardiovascular: Regular rate, No murmurs Abdomen: Bowel Sounds Present, Soft, Non Tender Extremities: No edema, Capillary Refill Less than 3 Seconds Skin: No rashes, No breakdown Musculoskeletal: No Tenderness to Palpation of Joints or Extremities Neurological: Cranial nerves II-XII grossly intact Psych/Mental Status: Normal Affect, Appropriate, Alert and oriented to time, place, person, mood and affect Current Medications Acetaminophen (Tylenol) 650 mg PO Q6H PRN PRN PRN Reason: Pain Score 1-10/Temp > 100.7 F Dicyclomine HCl (Bentyl) 20 mg PO Q6H PRN PRN PRN Reason: abdominal discomfort Enoxaparin Sodium (Lovenox) 40 mg SC DAILY@0600 [facility] Last Admin: 04/21/20 05:53 Dose: 40 mg Documented by: Folic Acid (Folic Acid) 1 mg PO DAILY@0800 [facility] Last Admin: 04/21/20 08:48 Dose: 1 mg Documented by: Gabapentin (Neurontin) 300 mg PO Q8H PRN PRN PRN Reason: moderate to severe anxiety Last Admin: 04/18/20 21:44 Dose: 300 mg Documented by: Hydroxyzine Pamoate (Vistaril Pamoate Capsule) 50 mg PO Q4H PRN PRN PRN Reason: mild anxiety Loperamide HCl (Imodium) 2 mg PO Q4H PRN PRN PRN Reason: LOOSE STOOLS Nicotine (Nicoderm Cq (Pbkc)) 21 mg TRANSDERM. DAILY [facility] Last Admin: 04/21/20 08:49 Dose: 21 mg Documented by: Nutritional Formula (Lactose Free) (Ensure Enlive) 120 ml PO 4X/DAY [facility] Last Admin: 04/21/20 08:51 Dose: 120 ml Documented by: Ondansetron HCl (Zofran) 4 mg IV Q8H PRN PRN PRN Reason: NAUSEA/VOMITING Ondansetron HCl (Zofran) 8 mg PO Q8H PRN PRN PRN Reason: NAUSEA Phenobarbital (Phenobarbital) 32.4 mg PO BID [facility] Last Admin: 04/21/20 10:30 Dose: 32.4 mg Documented by: Sodium Chloride () 10 - 40 ml IV UD PRN PRN Reason: SALINE FLUSH Last Admin: 04/18/20 18:10 Dose: 10 ml Documented by: Thiamine HCl (Vitamin B1) 100 mg PO DAILYCM [facility] Last Admin: 04/21/20 08:49 Dose: 100 mg Documented by: Trazodone HCl (Desyrel) 100 mg PO QHS PRN PRN Reason: INSOMNIA Medical Necessity - Tobacco Use Smoking Status: Current every day smoker Tobacco Use: Cigarettes Assessment/Plan All Active Problems Cocaine abuse (Acute) Alcohol abuse (Acute) 1. Alcohol withdrawal - pheno taper held for lethargy. ativan prn. 2. Polysubstance abuse - cocaine, marijuana 3. Hx hepatitis - Hep A ab +, Hep C Ab +. Follow up as outpatient 4. Hx DVT - off coumadin for years. 5. Homelessness - complicating the above DVT ppx: lovenox DC planning: completes withdrawal program tomorrow. would benefit from inpatient treatment This patient was seen by Faustino Wesley PA-C under the supervision of Doctor Tricia. <Tricia,[place] - Last Filed: 04/21/20 15:31> Vitals/I&O's: Vital Signs Temp Pulse Resp BP Pulse Ox 98.2 F 85 18 139/77 H 95 04/21/20 14:00 04/21/20 14:00 04/21/20 14:00 04/21/20 14:00 04/21/20 14:00 Oxygen Delivery Method Room Air Weight: 54.2 kg Body Mass Index (BMI) 19.3 Intake and Output for Last 24 Hours 04/19/20 04/20/20 04/21/20 23:59 23:59 23:59 Intake Total 1800 / 1800 1670 / 1670 940 / 940 Balance 1800 / 1800 1670 / 1670 940 / 940 Current Medications Acetaminophen (Tylenol) 650 mg PO Q6H PRN PRN PRN Reason: Pain Score 1-10/Temp > 100.7 F Dicyclomine HCl (Bentyl) 20 mg PO Q6H PRN PRN PRN Reason: abdominal discomfort Enoxaparin Sodium (Lovenox) 40 mg SC DAILY@0600 [facility] Last Admin: 04/21/20 05:53 Dose: 40 mg Documented by: Folic Acid (Folic Acid) 1 mg PO DAILY@0800 [facility] Last Admin: 04/21/20 08:48 Dose: 1 mg Documented by: Gabapentin (Neurontin) 300 mg PO Q8H PRN PRN PRN Reason: moderate to severe anxiety Last Admin: 04/18/20 21:44 Dose: 300 mg Documented by: Hydroxyzine Pamoate (Vistaril Pamoate Capsule) 50 mg PO Q4H PRN PRN PRN Reason: mild anxiety Loperamide HCl (Imodium) 2 mg PO Q4H PRN PRN PRN Reason: LOOSE STOOLS Nicotine (Nicoderm Cq (Pbkc)) 21 mg TRANSDERM. DAILY [facility] Last Admin: 04/21/20 08:49 Dose: 21 mg Documented by: Nutritional Formula (Lactose Free) (Ensure Enlive) 120 ml PO 4X/DAY [facility] Last Admin: 04/21/20 15:04 Dose: 120 ml Documented by: Ondansetron HCl (Zofran) 4 mg IV Q8H PRN PRN PRN Reason: NAUSEA/VOMITING Ondansetron HCl (Zofran) 8 mg PO Q8H PRN PRN PRN Reason: NAUSEA Phenobarbital (Phenobarbital) 32.4 mg PO BID [facility] Last Admin: 04/21/20 10:30 Dose: 32.4 mg Documented by: Polyethylene Glycol (Miralax) 17 gm PO BID PRN PRN PRN Reason: Constipation Sodium Chloride () 10 - 40 ml IV UD PRN PRN Reason: SALINE FLUSH Last Admin: 04/18/20 18:10 Dose: 10 ml Documented by: Thiamine HCl (Vitamin B1) 100 mg PO DAILYCM [facility] Last Admin: 04/21/20 08:49 Dose: 100 mg Documented by: Trazodone HCl (Desyrel) 100 mg PO QHS PRN PRN Reason: INSOMNIA STROKE Vital Signs/Narrative: Vital Signs Temp Pulse Resp BP Pulse Ox 04/21/20 14:00 98.2 F 85 18 139/77 H 95 Assessment/Plan This patient was seen in conjunction with CARIE Fitzgerald. I have independently interviewed and examined the patient and reviewed pertinent historical, laboratory, and other data. Please refer to CARIE Fitzgerald note for his patient's presentation, findings, and recommendations. I have reviewed and his note and concur with his documentation Patient was seen and examined. She is much more awake today. I discussed about her hepatitis C diagnosis. I recommended follow-up with primary care doctor. She tells me she does not have a primary care doctor. Vitals were reviewed -stable Physical Exam: Gen: Alert, oriented x 3, not pale, not jaundiced, alert oriented x3 CVS:HS I +II, regular, no murmurs RESP: Diminished at lung bases GI: BS present and normal, nontender, no palpable organs EXT:No edema Labs reviewed: ASSESSMENT: 1. Acute alcohol withdrawal 2. Polysubstance use disorder 3. Dehydration 4. Nicotine dependence 5. Depression 6. COPD Meds reviewed Patient continues to require medication and monitoring for withdrawal based on regular assessment and remains appropriate for ASAM level 4.0 Plan: Continue on phenobarb and CIWA protocol Continue nicotine replacement Will monitor sedation to prevent oversedation Plan: Inpatient E&M: 52678 Subs Hosp L2
[2020-04-21 14:00] VITALS: BP 139/77; PULSE 85; RESP 18; TEMP 36.8; O2SAT 95
--- NOTE | 2020-04-21 14:03 | ADDICTION ---
This entry writer coordinated care plan with [facility] long-term and outpatient departments. Patient is scheduled to admit into [facility] immediately following discharge from [facility] and will engage in individual counseling and IOP to address substance abuse barriers. She is amiable to this plan. This entry writer will provide transportation for patient to [facility] upon discharge.
[2020-04-21] MEDS: Polyethylene Glycol 3350 17 GM PACKET PO (19:48)
[2020-04-22 04:30] VITALS: BP 140/91; PULSE 87; RESP 16; TEMP 36.6; O2SAT 98
[2020-04-22] MEDS: Enoxaparin 40 MG/0.4 ML Syringe SC (06:09)
[2020-04-22 06:13] LABS: Absolute Lymphocyte Count 2.14 X10^3/uL (0.83-4.51); Absolute Neutrophil Count 2.3 X10^3/uL (2.0-7.7); Basophil# 0.03 X10^3/uL; Basophil% 0.6 % (0-1); Eosinophil# 0.33 X10^3/uL; Eosinophils% 6.3 % (0-5); Hematocrit 45.9 % (37-47); Lymphocyte # 2.14 X10^3/ul (4.0); Lymphocyte % 40.6 % (19-41); Mean Corp Hgb Conc 32.7 g/dL (32-36); Mean Corpuscular Hgb 30.5 pg (27.0-32.0); Mean Corpuscular Volume 93.5 fL (81-99); Mean Platelet Vol. 10.3 fl (6.2-12.0); Monocyte# 0.45 X10^3/uL; Monocyte% 8.5 % (0-10); NRBC Flagged by Analyzer 0 % (0-5); Neutrophil # 2.31 X10^3/uL (2.7-7.7); Neutrophil % 43.8 % (47-70); Platelet Count 202 K/mm3 (150-450); RBC Distribution Width CV 15.1 % (11.6-14.6); RBC Distribution Width SD 52.5 fl (35.1-43.9); Red Blood Count 4.91 M/mm3 (4.2-5.4); White Blood Count 5.3 K/mm3 (4.4-11.0)
[2020-04-22 06:37] LABS: ALB/GLOB Ratio 0.8 RATIO (0.9-2.4); AST(SGOT) 24 U/L (15-37); Alanine Aminotransfer ALT/SGPT 21 U/L (13-56); Albumin, Serum 2.8 g/dL (3.2-5.0); Alkaline Phosphatase 70 U/L (45-117); Anion Gap 1 (5-15); BUN 19 mg/dL (7-18); BUN/Creat Ratio 23.6 RATIO (10-20); Chloride 107 mmol/L (98-107); EST Glomerular Filtration Rate 76 mL/min (>60); Est Glom Filt Rate - Afr Amer 92 mL/min (>60); Estimated Creatinine Clearance 60.79 ml/min; Globulin 3.7 g/dL (2.2-4.2); Glucose 91 mg/dL (74-106); Potassium 4.5 mmol/L (3.5-5.1); Protein, Total 6.5 g/dL (6.4-8.2); Sodium Level 138 mmol/L (136-145)
[2020-04-22] MEDS: Thiamine Hydrochloride 100 MG Tablet PO (09:34)
[2020-04-22] MEDS: Phenobarbital 32.4 MG Tablet PO (09:34)
[2020-04-22] MEDS: Folic Acid 1 MG Tablet PO (09:34)
[2020-04-22 09:43] VITALS: BP 132/75; PULSE 85; RESP 18; TEMP 36.6; O2SAT 95
--- NOTE | 2020-04-22 11:46 | DCINST_ITS ---
- Discharge Diagnoses Current Active Problems: Current Active and Chronic Problems Cocaine abuse (Acute) Alcohol abuse (Acute) History of DVT (deep vein thrombosis) (Chronic) Tobacco abuse (Chronic) COPD (chronic obstructive pulmonary disease) (Chronic) Depression (Chronic) You will use the following diet at home:: No restrictions Your food should be the consistency of: Regular Your liquids should be the consistency of: Regular/Thin Discharge Activity: Return to Normal Activity Allergies/Adverse Reactions: Allergies No Known Allergies Allergy (Verified 04/18/20 15:01) Primary Care Physician: NOT,DEFINED [NON-STAFF] - Please follow up with your Primary Care Physician in: 1-2 weeks Test Results: Test results from this visit will be discussed in further detail at your follow- up appointment, if applicable.
--- NOTE | 2020-04-22 12:35 | DS.PCM_ITS ---
<Faustino Wesley - Last Filed: 04/22/20 12:35> Discharge Date and Diagnosis Date of Admission: 04/18/20 Date of Discharge: 04/22/20 - Primary Discharge Diagnosis Acute Problems: Active Problems Alcohol abuse (Acute) Cocaine abuse (Acute) History of hepatitis History of DVT Onychomycosis - Secondary Discharge Diagnosis Chronic Problems: Chronic Problems History of DVT (deep vein thrombosis) (Chronic) Tobacco abuse (Chronic) COPD (chronic obstructive pulmonary disease) (Chronic) Depression (Chronic) Hospital Course and Treatment Operations: None Procedures: None Summary of Care Provided: Hospital course: The patient is a 65 year old F with past medical history of alcoholism, hepatitis, DVT, cocaine abuse, homelessness, who presented to the emergency room with a call withdrawal. It was unclear how much alcohol or cocaine she had recently been using but she was using daily. She requested long-term treatment and expressed desire to become sober, had previously been sober for 13 years. She was admitted to the general medical floor and started on the alcohol detox phenobarbital per. She was very lethargic with this and the doses were decreased. She tolerated her withdrawal well with few issues. At discharge she expressed concern about her toes, she has significant dystrophy of her toenails and onychomycosis. We arranged for her to follow-up with podiatry for trimming. We also arranged for her to go to a women's nursing home at discharge and to have follow-up with the [facility]. The patient was discharged home to the nursing home in stable condition. She will need follow-up with a PCP in 1 to 2 weeks, follow-up with podiatry next week, and follow-up with 180 today. This patient was seen by Faustino Wesley PA-C under the supervision of Doctor Clarke. [] - Physical Exam Vitals/I&O's: Vital Signs Temp Pulse Resp BP Pulse Ox 97.8 F 85 18 132/75 H 95 04/22/20 09:43 04/22/20 09:43 04/22/20 09:43 04/22/20 09:43 04/22/20 09:43 Oxygen Delivery Method Room Air Weight: 119 lb 7.849 oz Body Mass Index (BMI) 19.3 Intake and Output for Last 24 Hours 04/20/20 04/21/20 04/22/20 23:59 23:59 23:59 Intake Total 1670 / 1670 0 / 0 1300 / 1300 Balance 1669 / 1670 1659 / 0 1300 / 1300 General: Alert, Oriented x3, Cooperative HEENT: Atraumatic, PERRLA, EOMI, Normocephalic Neck: Supple, No JVD, Negative Carotid Bruits Lungs: Clear to auscultation, Normal air movement Cardiovascular: Regular rate, No murmurs Abdomen: Bowel Sounds Present, Soft, Non Tender Extremities: No edema, Capillary Refill Less than 3 Seconds Skin: No rashes, No breakdown Musculoskeletal: No Tenderness to Palpation of Joints or Extremities Neurological: Cranial nerves II-XII grossly intact Psych/Mental Status: Normal Affect, Appropriate, Alert and oriented to time, юлия ce, person, mood and affect Laboratory Results 04/22/20 05:45: WBC 5.3, RBC 4.91, Hgb 15.0, Hct 45.9, MCV 93.5, MCH 30.5, MCHC 32.7, RDW Std Deviation 52.5 H, RDW Coeff of Oleg 15.1 H, Plt Count 202, MPV 10.3, Immature Gran % (Auto) 0.200, Neut % (Auto) 43.8 L, Lymph % (Auto) 40.6, [place] % (Auto) 8.5, Eos % (Auto) 6.3 H, Baso % (Auto) 0.6, Absolute Neuts (auto) 2.3, Absolute Lymphs (auto) 2.14, Nucleated RBC % 0 04/22/20 05:45: Sodium 138, Potassium 4.5, Chloride 107, Carbon Dioxide 30.0, Anion Gap 1 L, BUN 19 H, Creatinine 0.80, Estim Creat Clear Calc 60.79, Est GFR (MDRD) Af Amer 92, Est GFR (MDRD) Non-Af 76, BUN/Creatinine Ratio 23.6 H, Glucose 91, Calcium 9.0, Total Bilirubin 0.20, AST 24, ALT 21, Alkaline Phosphatase 70, Total Protein 6.5, Albumin 2.8 L, Globulin 3.7, Albumin/Globulin Ratio 0.8 L Current Medications Acetaminophen (Tylenol) 650 mg PO Q6H PRN PRN PRN Reason: Pain Score 1-10/Temp > 100.7 F Dicyclomine HCl (Bentyl) 20 mg PO Q6H PRN PRN PRN Reason: abdominal discomfort Enoxaparin Sodium (Lovenox) 40 mg SC DAILY@0600 [facility] Last Admin: 04/22/20 06:09 Dose: 40 mg Documented by: Folic Acid (Folic Acid) 1 mg PO DAILY@0800 [facility] Last Admin: 04/22/20 09:34 Dose: 1 mg Documented by: Gabapentin (Neurontin) 300 mg PO Q8H PRN PRN PRN Reason: moderate to severe anxiety Last Admin: 04/18/20 21:44 Dose: 300 mg Documented by: Hydroxyzine Pamoate (Vistaril Pamoate Capsule) 50 mg PO Q4H PRN PRN PRN Reason: mild anxiety Loperamide HCl (Imodium) 2 mg PO Q4H PRN PRN PRN Reason: LOOSE STOOLS Nicotine (Nicoderm Cq (Pbkc)) 21 mg TRANSDERM. DAILY [facility] Last Admin: 04/22/20 09:34 Dose: 21 mg Documented by: Nutritional Formula (Lactose Free) (Ensure Enlive) 120 ml PO 4X/DAY [facility] Last Admin: 04/22/20 09:34 Dose: 120 ml Documented by: Ondansetron HCl (Zofran) 4 mg IV Q8H PRN PRN PRN Reason: NAUSEA/VOMITING Ondansetron HCl (Zofran) 8 mg PO Q8H PRN PRN PRN Reason: NAUSEA Phenobarbital (Phenobarbital) 32.4 mg PO BID [facility] Last Admin: 04/22/20 09:34 Dose: 32.4 mg Documented by: Polyethylene Glycol (Miralax) 17 gm PO BID PRN PRN PRN Reason: Constipation Last Admin: 04/21/20 19:48 Dose: 17 gm Documented by: Sodium Chloride () 10 - 40 ml IV UD PRN PRN Reason: SALINE FLUSH Last Admin: 04/18/20 18:10 Dose: 10 ml Documented by: Thiamine HCl (Vitamin B1) 100 mg PO DAILYCM [facility] Last Admin: 04/22/20 09:34 Dose: 100 mg Documented by: Trazodone HCl (Desyrel) 100 mg PO QHS PRN PRN Reason: INSOMNIA Discharge Diet: - - no alcohol whatsoever Discharge Activity: Return to Normal Activity Primary Care Physician: NOT,DEFINED [NON-STAFF] - Please follow up with your Primary Care Physician in: 1-2 weeks Please Follow Up With: [facility] program When: today Please Follow Up With: Chastity Dietrich DPM When: Next week Disposition: Home Minutes spent on discharge:: 35 Patient Condition:: Stable Medical Necessity - Tobacco Use Smoking Status: Current every day smoker Tobacco Use: Cigarettes Meaningful Use Info Meaningful Use Diagnoses (Choose all that apply): None applicable <[place] - Last Filed: 04/22/20 15:28> Discharge Date and Diagnosis - Secondary Discharge Diagnosis Chronic Problems: Chronic Problems History of DVT (deep vein thrombosis) (Chronic) Tobacco abuse (Chronic) COPD (chronic obstructive pulmonary disease) (Chronic) Depression (Chronic) Hospital Course and Treatment Summary of Care Provided: This patient was seen in conjunction with CARIE Fitzgerald. I have independently interviewed and examined the patient and reviewed pertinent historical, laboratory, and other data. Please refer to CARIE Fitzgerald note for his patient's presentation, findings, and recommendations. I have reviewed and his note and concur with his documentation 65-year-old female past medical history of polysubstance use disorder, alcoholism who comes in requesting for medical stabilization. Patient was seen in alcohol withdrawal. Her urine tox was positive for a cane and cannabinoids. She was maintained on the phenobarbital withdrawal protocol. Patient was very lethargic in the initial part of his stay. Phenobarbital was held for lethargy. It was resumed and patient was more alert. She tolerated it. She was seen by [facility] and the plan is for discharge to nursing home and later inpatient drug rehab program. On the day of discharge, patient was seen and examined. She complains of dystrophic nails and requested podiatry consult for treatment. Upon contacting podiatry, they could not see her before her discharge at 12 noon, she was recommended to follow-up with a garment turner on Saturday or Saturday following discharge. Physical Exam: Gen: Alert, oriented x 3, not pale, not jaundiced, alert oriented x3 CVS:HS I +II, regular, no murmurs RESP: Diminished at lung bases GI: BS present and normal, nontender, no palpable organs EXT:No edema - Physical Exam Vitals/I&O's: Vital Signs Temp Pulse Resp BP Pulse Ox 97.8 F 85 18 132/75 H 95 04/22/20 09:43 04/22/20 09:43 04/22/20 09:43 04/22/20 09:43 04/22/20 09:43 Oxygen Delivery Method Room Air Weight: 54.2 kg Body Mass Index (BMI) 19.3 Intake and Output for Last 24 Hours 04/20/20 04/21/20 04/22/20 23:59 23:59 23:59 Intake Total 1670 / 1670 1660 / 2120 1300 / 1300 Balance 1670 / 1670 1660 / 2120 1300 / 1300 Laboratory Results 04/22/20 05:45: WBC 5.3, RBC 4.91, Hgb 15.0, Hct 45.9, MCV 93.5, MCH 30.5, MCHC 32.7, RDW Std Deviation 52.5 H, RDW Coeff of Oleg 15.1 H, Plt Count 202, MPV 10.3, Immature Gran % (Auto) 0.200, Neut % (Auto) 43.8 L, Lymph % (Auto) 40.6, [place] % (Auto) 8.5, Eos % (Auto) 6.3 H, Baso % (Auto) 0.6, Absolute Neuts (auto) 2.3, Absolute Lymphs (auto) 2.14, Nucleated RBC % 0 04/22/20 05:45: Sodium 138, Potassium 4.5, Chloride 107, Carbon Dioxide 30.0, An ion Gap 1 L, BUN 19 H, Creatinine 0.80, Estim Creat Clear Calc 60.79, Est GFR (MDRD) Af Amer 92, Est GFR (MDRD) Non-Af 76, BUN/Creatinine Ratio 23.6 H, Glucose 91, Calcium 9.0, Total Bilirubin 0.20, AST 24, ALT 21, Alkaline Phosphatase 70, Total Protein 6.5, Albumin 2.8 L, Globulin 3.7, Albumin/Globulin Ratio 0.8 L Inpatient E&M: 95011 Disch Hosp
--- NOTE | 2020-04-22 13:06 | ADDICTION ---
This software writer is transporting patient to [facility] ([facility]) upon discharge. She is scheduled to begin treatment with [facility] on 04/25/2020 and is amiable to these recommendations.
== END 2020-04-22 13:55 | disposition home or self-care (01) | DRG 897 ==
LOC: ED 15:47 → MS3 16:05
PROVIDERS: Nurse Practitioner Family; Admitting Provider Family Medicine; Emergency Provider Emergency Medicine; Visit Provider Internal Medicine
DX: F10.239 Alcohol dependence with withdrawal, unspecified (principal); B15.9 Hepatitis A without hepatic coma; B19.20 Unspecified viral hepatitis C without hepatic coma; B35.1 Tinea unguium; L60.3 Nail dystrophy; E86.0 Dehydration; F32.9 Major depressive disorder, single episode, unspecified; J44.9 Chronic obstructive pulmonary disease, unspecified; Z86.718 Personal history of other venous thrombosis and embolism; F17.210 Nicotine dependence, cigarettes, uncomplicated; F14.10 Cocaine abuse, uncomplicated; F12.10 Cannabis abuse, uncomplicated; Z59.0 Homelessness
CPT/HCPCS: 36415; 80048; 80053; 80307; 80320; 85025; 86703; 86704; 86705; 86706; 86708; 86709; 86803; 87340; 87635; 97161; 97165; 97530; 97802; 99283; 99406; G2023; J7030; A4216; G0480; U0003

== ENCOUNTER → 2020-06-28 10:10 | Outpatient (CLI) | payer MEDICARE, MEDICAID, SELFPAY ==
[2020-04-25 13:01] VITALS: BMI 19.3
--- NOTE | 2020-06-28 10:45 | CT_ITS ---
STUDY: CTA OF THE ABDOMINAL AORTA AND BILATERAL LOWER EXTREMITIES REASON FOR EXAM: Female, 65 years old. ISCHEMIC LIMB LEFT ANTIONETTE. HX OF LEFT SIDE STENTS RADIATION DOSAGE (If Supplied By Facility): CTDIvol = ( 8.57 ) mGy, DLP = ( 925.23 ) mGycm TECHNIQUE: Axial CT angiography multi-detector data acquisition was obtained from the dome of the liver to the ankle joints following intravenous administration of IV 100mL Isovue-370. Axial images and MIP images were reconstructed from the axial data set. Post-processing of the angiographic images was performed, with multiplanar reformation and 3D reconstruction. Individualized dose optimization techniques were used for this CT. TECHNICAL QUALITY: Good COMPARISON: None. Descriptors of Narrowing: None (0%) Mild (< 50%) Moderate (50-70%) Severe (70-90%) Subtotal/Total Occlusion (90-100%) Non-Evaluable (technically non-diagnostic FINDINGS: Abdominal aorta: Atherosclerotic calcific plaques. Minimal dilatation of the distal abdominal aorta with a transverse dimension of 2.6 sinus. There is evidence of a mural thrombus along the medial wall of the distal abdominal aorta. Stents are seen in both common iliac arteries with the proximal portion in the distal aspect of the aorta. Celiac and superior mesenteric arteries: No demonstrated narrowing. Inferior mesenteric artery: No demonstrated narrowing. Right renal artery(arteries): No demonstrated narrowing. Left renal artery(arteries): No demonstrated narrowing. Right common iliac artery: A stent is seen in the right common iliac artery. Atherosclerotic plaques more prominent on the posterior aspect of the common iliac artery. Right external iliac artery: Approximately 50% narrowing of the lumen of the distal external iliac artery. Right internal iliac artery: No demonstrated narrowing. Left common iliac artery: Vascular stent seen in the common and external iliac arteries. Left external iliac artery: Patent stent is seen. Left internal iliac artery: No demonstrated narrowing. RIGHT LOWER EXTREMITY Right common femoral artery: Nonstenotic calcific plaques in its distal portion. Right profundus femoris: No demonstrated narrowing. Right superficial femoral: No demonstrated narrowing. Right popliteal artery: No demonstrated narrowing. Right tibioperoneal trunk: No demonstrated narrowing. Right anterior tibial artery: No demonstrated narrowing. Right posterior tibial artery: No demonstrated narrowing. Right peroneal artery: No demonstrated narrowing. LEFT LOWER EXTREMITY Left common femoral artery: No demonstrated narrowing. Left profundus femoris: No demonstrated narrowing. Left superficial femoral: Occlusion of the superficial femoral artery in its distal portion. Left popliteal artery: Occluded. Left tibioperoneal trunk: Reconstitution at its origin. Left anterior tibial artery: Patent. Left posterior tibial artery: Not visualized. Left peroneal artery: Not visualized. 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 Reconstitution of the left tibial peroneal trunk at its origin. Single-vessel runoff in the left leg mainly the anterior tibial artery. Electronically Signed: Anthony Perez, at 12:51 EDT , Service support ,
[2020-07-02 13:26] LABS: CREATININE FINGERSTICK 0.73 mg/dL (0.55-1.02); EGFR FINGERSTICK > 60 mL/min (>60)
== END ==
PROVIDERS: PCP Nurse Practitioner Primary Care
DX: I99.8 Other disorder of circulatory system (principal)
CPT/HCPCS: 75635; Q9967

== ENCOUNTER 2020-08-26 14:32 | Inpatient (IN) | payer MEDICARE, MEDICAID, SELFPAY ==
[2020-04-25 13:01] VITALS: BMI 19.3
[2020-08-26] VITALS (7 sets, daily range): BP systolic 125–136; BP diastolic 78–106; PULSE 60–99; RESP 18–20; TEMP 36.2–36.8; O2SAT 93–97; BMI 28.9; BMI 29.0; BMI 25.5
--- NOTE | 2020-08-26 14:49 | RAD_ITS ---
EXAM DESCRIPTION: PORTABLE AP CHEST CLINICAL HISTORY: 65 years Female, WORSENING DYSPNEA AND COUGH PAST WEEK, EXPOSED TO COVID APPROX 2-3 WEEKS AGO. HX OF COPD WORSENING DYSPNEA AND COUGH PAST WEEK, EXPOSED TO COVID APPROX 2-3 WEEKS AGO. HX OF COPD COMPARISON: None FINDINGS: The thorax is intact. The heart and mediastinum appear to be within normal limits. The lungs appear to be well areated without evidence of pneumonic consolidation or pleural effusion. RAD/Chest 1 View (Portable) IMPRESSION: Normal portable chest. Electronically Signed: Demarco Brenner, at 16:04 EST Tel , Service support ,
--- NOTE | 2020-08-26 14:49 | EKG12_ITS ---
Test Reason : Blood Pressure : / mmHG Vent. Rate : 077 BPM Atrial Rate : 077 BPM P-R Int : 126 ms QRS Dur : 074 ms QT Int : 350 ms P-R-T Axes : 077 077 059 degrees QTc Int : 396 ms Normal sinus rhythm Nonspecific T wave abnormality Abnormal ECG Confirmed by ANN CORTÉS, SONIDO ([id number]), medical editor ANNABELLE HWANG ([id number]) on 08/30/2020 9:05:41 AM Referred By: PHYLICIA Confirmed By:SONIDO JUAREZ MD
--- NOTE | 2020-08-26 14:51 | ED.VISSUMM ---
- ER Visit Summary Date of Service: 08/26/20 Chief Complaint: Shortness of breath History of Present Illness: The patient is a [address] Castillo. She reports she has shortness of breath began 3 days ago. She has an occasional nonproductive cough. She denies any fever, chills, chest pain. Patient reports her shortness of breath is mild now. It is severe with exertion. She reports that she has been wheezing and is not getting relief from her inhaler. She reports that she had similar symptoms all the time. States that she used to be on home O2. Patient does report that she has had sick contacts. 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 She was wearing a mask at that time. Physical Examination: Vitals: Stable. Afebrile. General: Well-nourished and well-developed. Head: Normocephalic atraumatic. Neck: Supple, no lymphadenopathy. No JVD. Nontender. Cardiovascular: Regular rate and rhythm. No murmurs. Respiratory: No respiratory distress. Minimal end expiratory wheezing ds. No guarding, rebound, or peritoneal signs. Back: Nontender. Extremities: Nontender, no edema. Skin: Normal color, no rash. Neurologic: Alert and oriented ?3. Cranial nerves II through XII are intact. Normal strength and sensation. Psych: Normal affect. Test Results: EKG is sinus at [address] changes and inferior T wave inversions. There is no old EKG for comparison. CBC shows an H&H of 15.2 and 47.3, eosinophils of 9. Chem-7 shows potassium 5.3 (moderate hemolysis), chloride of 108, BUN 29, creatinine 1.22. Creatinine has been 0.8?1.25 in 2019. Troponin 0.016. Covid antigen is negative. Chest x-ray shows chronic changes. Emergency Department Course and Treatment: Patient had an IV placed. She was given Solu-Medrol IV. Her ambulatory pulse ox was 88% on room air. Treatment Plan: Patient will be treated discussed with the hospitalist and admitted for further evaluation and treatment. Disposition: Admitted in improved and stable condition. Impression: 1. COPD exacerbation. 2. Hypoxia. This note was generated with [employer] software. It may contain incorrect words, spelling, and punctuation that were not noted in review of the chart prior to signing ED Disposition - Plan for ED Patient: Referrals: Martinez Underwood PERSONAL LINES INSURANCE ADVISOR, PERSONAL LINES INSURANCE ADVISOR-C [NON-STAFF] -
[2020-08-26] MEDS: MethylPREDNISolone 125 MG/2 ML Vial IV (14:54)
[2020-08-26 15:00] LABS: Absolute Lymphocyte Count 2.43 X10^3/uL (0.83-4.51); Absolute Neutrophil Count 3.7 X10^3/uL (2.0-7.7); Basophil# 0.05 X10^3/uL; Basophil% 0.7 % (0-1); Eosinophil# 0.66 X10^3/uL; Eosinophils% 8.9 % (0-5); Hematocrit 47.3 % (37-47); Hemoglobin 15.2 g/dL (12.0-15.0); Lymphocyte # 2.43 X10^3/ul (4.0); Lymphocyte % 32.7 % (19-41); Mean Corp Hgb Conc 32.1 g/dL (32-36); Mean Corpuscular Hgb 30.1 pg (27.0-32.0); Mean Corpuscular Volume 93.7 fL (81-99); Monocyte# 0.55 X10^3/uL; Monocyte% 7.4 % (0-10); NRBC Flagged by Analyzer 0 % (0-5); Neutrophil # 3.73 X10^3/uL (2.7-7.7); Neutrophil % 50.2 % (47-70); Platelet Count 302 K/mm3 (150-450); RBC Distribution Width CV 13.1 % (11.6-14.6); RBC Distribution Width SD 44.7 fl (35.1-43.9); Red Blood Count 5.05 M/mm3 (4.2-5.4); White Blood Count 7.4 K/mm3 (4.4-11.0)
[2020-08-26 15:27] LABS: Anion Gap 2 (5-15); BUN 29 mg/dL (7-18); BUN/Creat Ratio 23.6 RATIO (10-20); Calcium,Total 9.7 mg/dL (8.5-10.1); Chloride 108 mmol/L (98-107); Creatinine, Serum 1.23 mg/dL (0.55-1.02); EST Glomerular Filtration Rate 47 mL/min (>60); Est Glom Filt Rate - Afr Amer 56 mL/min (>60); Estimated Creatinine Clearance 43.26 ml/min; Glucose 92 mg/dL (74-106); Potassium 5.3 mmol/L (3.5-5.1); Sodium Level 139 mmol/L (136-145)
[2020-08-26] MEDS: Doxycycline 100 MG CAPSULE PO (15:55)
[2020-08-26] MEDS: 0.9% Normal Saline 1,000 ML 100 ML IV (18:00)
--- NOTE | 2020-08-26 18:09 | HP.PCM_ITS ---
<Faustino Wesley - Last Filed: 08/26/20 18:09> Problem List (1) COPD exacerbation Status: Acute (2) PAD (peripheral artery disease) Status: Chronic (3) Alcohol abuse Status: Chronic (4) Cocaine abuse Status: Chronic (5) COPD (chronic obstructive pulmonary disease) Status: Chronic (6) Depression Status: Chronic History of Present Illness Date of Admission: 08/26/20 Chief Complaint: SOB The patient is a 65 year old F with pmhx of COPD, nicotine abuse (in remission since February 2020), cocaine and alcohol addiction (sober x128 days), HTN, PAD, cervical pinched nerve, who presented to the ER with c/o SOB. She has been SOB since saturday with progressive worsening. SOB is worth with exertion better at rest. She has an albuterol inhaler however this did not provide her significant relief. She thinks she coughed once, but has not coughed today. She has no fever or chills. She has no CP. She has no LE edema. She is requesting something to help with her chronic neck pain. [] Past Medical History Past Medical History (Chronic Problems): Chronic Problems Cocaine abuse (Chronic) Alcohol abuse (Chronic) History of DVT (deep vein thrombosis) (Chronic) Tobacco abuse (Chronic) COPD (chronic obstructive pulmonary disease) (Chronic) Depression (Chronic) PAD (peripheral artery disease) (Chronic) Allergies No Known Allergies Allergy (Verified 08/26/20 14:37) Home Medications: Ambulatory Orders Medication Instructions Recorded Albuterol Sulfate [Ventolin Hfa] 2 puff IH Q4H PRN PRN 08/26/20 Aspirin [Aspirin, Baby] 81 mg PO DAILY 08/26/20 Cilostazol 100 mg PO BID 08/26/20 Lisinopril [Zestril] 10 mg PO DAILY 08/26/20 Meloxicam [Mobic] 7.5 mg PO DAILY 08/26/20 Oxybutynin Chloride [Oxybutynin 5 mg PO DAILY 08/26/20 Chloride ER] Tizanidine HCl [Zanaflex] 2 mg PO Q8 PRN 08/26/20 Surgical History: - - peripheral arterial stenting Psychiatric History: Depression [place] [place] History: No pertinent [place] history Lives: Alone Smoking Status: Former smoker Tobacco Use: Cigarettes Alcohol: Sober Drugs: - - former cocaine - *Family History Maternal History Items: Hypertension Paternal History Items: - - States she does not know anything about that juliocesar Sibling History Items: Heart Disease - ID Review of Systems Constitutional: Denies: Chills, Fever, Weight Change HEENT: Denies: Head Aches, Sinus Congestion, Sinus Drainage Cardiovascular: Denies: Chest Pain, Edema, Palpitations Respiratory: Reports: Shortness of Breath, Shortness of breath at rest, Re rtness of breath upon exertion, Wheezing. Denies: Cough, Sputum production Gastrointestinal: Denies: Abdominal Pain, Nausea, Vomiting Genitourinary: Denies: Dysuria, Hesitancy, Urgency Musculoskeletal: Denies: Joint Pain, Joint Tenderness, Muscle pain Skin: Denies: Lesions, Rash, Wounds Neurological: Denies: Numbness, Tingling, Focal weakness Psychiatric: Denies: Anxiety, Depression, Homicidal Ideations, Suicidal Ideations Hematologic/ Lymphatic: Denies: Easy Bruising, Easy Bleeding VTE Information - Inpt Only VTE Present on Admission: No VTE Mechan Device Prophylaxis: None VTE Pharm Prophylaxis ordered?: Yes - Physical Exam Vitals/I&O's: Vital Signs Temp Pulse Resp BP Pulse Ox 98.1 F 92 20 H 125/78 H 93 08/26/20 17:20 08/26/20 17:20 08/26/20 17:20 08/26/20 17:20 08/26/20 17:20 Oxygen Flow Rate (L/min) 2 Oxygen Delivery Method Nasal Cannula Weight: 158 lb 7.3 oz Body Mass Index (BMI) 25.5 General: Alert, Oriented x3, Cooperative HEENT: Atraumatic, PERRLA, EOMI, Normocephalic Neck: Supple, No JVD, Negative Carotid Bruits Lungs: Diminished, Wheezes Cardiovascular: Regular rate, No murmurs Abdomen: Bowel Sounds Present, Soft, Non Tender Extremities: No edema, Capillary Refill Less than 3 Seconds Skin: No rashes, No breakdown Musculoskeletal: No Tenderness to Palpation of Joints or Extremities Neurological: Cranial nerves II-XII grossly intact Psych/Mental Status: Normal Affect, Appropriate, Alert and oriented to time, place, person, mood and affect Microbiology Past 72 Hours 08/26/20 14:55 Mucosa - Nose SARS-CoV-2 Antigen (Rapid) - Final Laboratory Results 08/26/20 14:35: WBC 7.4, RBC 5.05, Hgb 15.2 H, Hct 47.3 H, MCV 93.7, MCH 30.1, MCHC 32.1, RDW Std Deviation 44.7 H, RDW Coeff of Oleg 13.1, Plt Count 302, MPV 10.0, Immature Gran % (Auto) 0.100, Neut % (Auto) 50.2, Lymph % (Auto) 32.7, Citrus % (Auto) 7.4, Eos % (Auto) 8.9 H, Baso % (Auto) 0.7, Absolute Neuts (auto) 3.7, Absolute Lymphs (auto) 2.43, Nucleated RBC % 0 08/26/20 14:35: Sodium 139, Potassium 5.3 H, Chloride 108 H, Carbon Dioxide 29.0, Anion Gap 2 L, BUN 29 H, Creatinine 1.23 H, Estim Creat Clear Calc 43.26, Est GFR (MDRD) Af Amer 56 L, Est GFR (MDRD) Non-Af 47 L, BUN/Creatinine Ratio 23.6 H, Glucose 92, Calcium 9.7, Troponin I 0.016 Current Medications Sodium Chloride () 1,000 mls @ 100 mls/hr IV .Q10H [facility] Melatonin (Melatonin 3 Mg Tablet) 3 mg PO QHS PRN PRN PRN Reason: INSOMNIA Ondansetron HCl (Ondansetron 4 Mg/2 Ml Vial) 4 mg IV Q8H PRN PRN PRN Reason: NAUSEA/VOMITING Prednisone (Prednisone 20 Mg Tablet) 40 mg PO DAILY@0800 [facility] Sodium Chloride (0.9% Saline Lock 10 Ml Syringe) 10 - 40 ml IV UD PRN PRN Reason: SALINE FLUSH Assessment/Plan All Active Problems COPD exacerbation (Acute) 1. Acute COPD exacerbation with acute hypoxic resp insufficiency - provide solumedrol, duonebs, IS, CXR is normal. No fever/leukocytosis. Covid neg. 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 States this is first hospital admission for COPD. Quit smoking February 2020. Trop neg. She was 88 percent with ambulation now stable on 2 lpm. 2. Hyperkalemia - kayex x1. 3. PAD - prior stenting - pletal, aspirin 4. HTN - lisinopril 5. Cervical pinched nerve - chronic neck pain, zanaflex and meloxicam as outpatient. continue 6. Former alcoholic - sober x 128 days 7. Former crack cocaine addict - sober x 128 days - check tox screen. DVT ppx: lovenox This patient was seen by Faustino Wesley PA-C under the supervision of Dr. Hutson. <Estevan Hutson F - Last Filed: 08/26/20 19:26> History of Present Illness The patient is a 65 year old F [] Past Medical History Allergies No Known Allergies Allergy (Verified 08/26/20 14:37) - Physical Exam Vitals/I&O's: Vital Signs Temp Pulse Resp BP Pulse Ox 98.1 F 92 20 H 125/78 H 93 08/26/20 17:20 08/26/20 17:20 08/26/20 17:20 08/26/20 17:20 08/26/20 17:20 Oxygen Flow Rate (L/min) 2 Oxygen Delivery Method Nasal Cannula Weight: 158 lb 7.3 oz Body Mass Index (BMI) 25.5 Microbiology Past 72 Hours 08/26/20 14:55 Mucosa - Nose SARS-CoV-2 Antigen (Rapid) - Final Laboratory Results 08/26/20 14:35: WBC 7.4, RBC 5.05, Hgb 15.2 H, Hct 47.3 H, MCV 93.7, MCH 30.1, MCHC 32.1, RDW Std Deviation 44.7 H, RDW Coeff of Oleg 13.1, Plt Count 302, MPV 10.0, Immature Gran % (Auto) 0.100, Neut % (Auto) 50.2, Lymph % (Auto) 32.7, Citrus % (Auto) 7.4, Eos % (Auto) 8.9 H, Baso % (Auto) 0.7, Absolute Neuts (auto) 3.7, Absolute Lymphs (auto) 2.43, Nucleated RBC % 0 08/26/20 14:35: Sodium 139, Potassium 5.3 H, Chloride 108 H, Carbon Dioxide 29.0, Anion Gap 2 L, BUN 29 H, Creatinine 1.23 H, Estim Creat Clear Calc 43.26, Est GFR (MDRD) Af Amer 56 L, Est GFR (MDRD) Non-Af 47 L, BUN/Creatinine Ratio 23.6 H, Glucose 92, Calcium 9.7, Troponin I 0.016 Current Medications Sodium Chloride () 1,000 mls @ 100 mls/hr IV .Q10H [facility] Melatonin (Melatonin 3 Mg Tablet) 3 mg PO QHS PRN PRN PRN Reason: INSOMNIA Ondansetron HCl (Ondansetron 4 Mg/2 Ml Vial) 4 mg IV Q8H PRN PRN PRN Reason: NAUSEA/VOMITING Prednisone (Prednisone 20 Mg Tablet) 40 mg PO DAILY@0800 [facility] Sodium Chloride (0.9% Saline Lock 10 Ml Syringe) 10 - 40 ml IV UD PRN PRN Reason: SALINE FLUSH Addendum: Dr. Hutson I personally examined the patient and reviewed the chart. I agree with the above. 65-year-old female with a history of COPD presents to the hospital with an exacerbation. In the ER she was 96% on room air however with ambulation she dropped to 88%. We will continue with p.o. prednisone and will also obtain a urine drug screen as she is a former cocaine addict as well as has a history of alcohol abuse. Check a urine drug screen and blood alcohol level. She is currently on oxygen for comfort though she is 93% on room air prior to the initiation of oxygen. Continue with IV fluids for her creatinine of 1.23 as well as her elevated potassium, will likely correct by a.m. OBSV E&M: [id number] Initial observation care L3
[2020-08-26] MEDS: tiZANidine HCl 2 MG Tablet PO (20:31)
[2020-08-26 20:37] LABS: Alcohol, Blood (Medical)-Serum < 3.0 mg/dL
[2020-08-27] VITALS (10 sets, daily range): BP systolic 108–153; BP diastolic 62–97; PULSE 86–103; RESP 18–26; TEMP 36.3–36.5; O2SAT 85–97
[2020-08-27] MEDS: BENZOCAINE/MENTHOL 1 LOZENGE MUCOUS MEM ×6 (00:22→22:34)
[2020-08-27] MEDS: 0.9% Normal Saline 1,000 ML 100 ML IV ×3 (02:17→22:31)
[2020-08-27] MEDS: tiZANidine HCl 2 MG Tablet PO ×2 (04:37→18:08)
[2020-08-27 08:21] LABS: Anion Gap 7 (5-15); BUN 26 mg/dL (7-18); BUN/Creat Ratio 27.1 RATIO (10-20); Calcium,Total 8.8 mg/dL (8.5-10.1); Chloride 108 mmol/L (98-107); Creatinine, Serum 0.96 mg/dL (0.55-1.02); EST Glomerular Filtration Rate 62 mL/min (>60); Est Glom Filt Rate - Afr Amer 75 mL/min (>60); Estimated Creatinine Clearance 55.42 ml/min; Glucose 192 mg/dL (74-106); Sodium Level 137 mmol/L (136-145)
[2020-08-27 08:46] LABS: Absolute Lymphocyte Count 1.26 X10^3/uL (0.83-4.51); Absolute Neutrophil Count 7.5 X10^3/uL (2.0-7.7); Basophil# 0.01 X10^3/uL; Basophil% 0.1 % (0-1); Hematocrit 41.6 % (37-47); Hemoglobin 13.1 g/dL (12.0-15.0); Lymphocyte # 1.26 X10^3/ul (4.0); Lymphocyte % 14.1 % (19-41); Mean Corp Hgb Conc 31.5 g/dL (32-36); Mean Corpuscular Hgb 29.7 pg (27.0-32.0); Mean Corpuscular Volume 94.3 fL (81-99); Mean Platelet Vol. 10.1 fl (6.2-12.0); Monocyte% 2.2 % (0-10); NRBC Flagged by Analyzer 0 % (0-5); Neutrophil # 7.47 X10^3/uL (2.7-7.7); Neutrophil % 83.4 % (47-70); Platelet Count 288 K/mm3 (150-450); RBC Distribution Width CV 12.7 % (11.6-14.6); RBC Distribution Width SD 43.9 fl (35.1-43.9); Red Blood Count 4.41 M/mm3 (4.2-5.4)
[2020-08-27] MEDS: predniSONE 20 MG Tablet 40 MG PO (09:10)
[2020-08-27] MEDS: Aspirin 81 MG TAB.CHEW PO (09:10)
[2020-08-27] MEDS: Tolterodine Tartrate 2 MG CAP.SA PO (09:10)
[2020-08-27] MEDS: Lisinopril 10 MG Tablet PO (09:11)
[2020-08-27] MEDS: Meloxicam 7.5 MG Tablet PO (09:11)
--- NOTE | 2020-08-27 10:46 | PCM.PN.HOSP ---
<Faustino Wesley - Last Filed: 08/27/20 10:46> Patient Problems: Active and Suspected Problems COPD exacerbation (Acute) Reason for Visit: SOB Subjective: Pt resting comfortably in bed, somewhat restless. She does appear SOB with conversation. She requested to be given medication for pain in her neck. She does c/o SOB at rest. She has minimal cough. Denies fever/chills. She has no LE edema. She reports ambulating is difficulty due to pain from PAD in her left leg. Vitals/I&O's: Vital Signs Temp Pulse Resp BP Pulse Ox 97.5 F L 95 22 H 120/94 H 95 08/27/20 09:00 08/27/20 09:00 08/27/20 09:00 08/27/20 09:00 08/27/20 09:00 Oxygen Flow Rate (L/min) 1 Oxygen Delivery Method Nasal Cannula Weight: 158 lb 7.3 oz Body Mass Index (BMI) 25.5 Intake and Output for Last 24 Hours 08/25/20 08/26/20 08/27/20 23:59 23:59 23:59 Intake Total 828.33 / 828.33 Output Total 600 / 600 Balance 228.33 / 228.33 General: Alert, Oriented x3, Cooperative HEENT: Atraumatic, PERRLA, EOMI, Normocephalic Neck: Supple, No JVD, Negative Carotid Bruits Lungs: Diminished, Wheezes Cardiovascular: Regular rate, No murmurs Abdomen: Bowel Sounds Present, Soft, Non Tender Extremities: No edema, Capillary Refill Less than 3 Seconds Skin: No rashes, No breakdown Musculoskeletal: No Tenderness to Palpation of Joints or Extremities Neurological: Cranial nerves II-XII grossly intact Psych/Mental Status: Anxious, Alert and oriented to time, place, person, mood and affect Microbiology Past 72 Hours 08/26/20 14:55 Mucosa - Nose SARS-CoV-2 Antigen (Rapid) - Final Laboratory Results 08/26/20 14:35: WBC 7.4, RBC 5.05, Hgb 15.2 H, Hct 47.3 H, MCV 93.7, MCH 30.1, MCHC 32.1, RDW Std Deviation 44.7 H, RDW Coeff of Oleg 13.1, Plt Count 302, MPV 10.0, Immature Gran % (Auto) 0.100, Neut % (Auto) 50.2, Lymph % (Auto) 32.7, Jennings % (Auto) 7.4, Eos % (Auto) 8.9 H, Baso % (Auto) 0.7, Absolute Neuts (auto) 3.7, Absolute Lymphs (auto) 2.43, Nucleated RBC % 0 08/26/20 14:35: Sodium 139, Potassium 5.3 H, Chloride 108 H, Carbon Dioxide 29.0, Anion Gap 2 L, BUN 29 H, Creatinine 1.23 H, Estim Creat Clear Calc 43.26, Est GFR (MDRD) Af Amer 56 L, Est GFR (MDRD) Non-Af 47 L, BUN/Creatinine Ratio 23.6 H, Glucose 92, Calcium 9.7, Troponin I 0.016 08/26/20 20:00: Ethyl Alcohol < 3.0 08/27/20 07:36: WBC 9.0, RBC 4.41, Hgb 13.1, Hct 41.6, MCV 94.3, MCH 29.7, MCHC 31.5 L, RDW Std Deviation 43.9, RDW Coeff of Oleg 12.7, Plt Count 288, MPV 10.1, Immature Gran % (Auto) 0.200, Neut % (Auto) 83.4 H, Lymph % (Auto) 14.1 L, Jennings % (Auto) 2.2, Eos % (Auto) 0.0, Baso % (Auto) 0.1, Absolute Neuts (auto) 7.5, Absolute Lymphs (auto) 1.26, Nucleated RBC % 0 08/27/20 07:36: Sodium 137, Potassium 4.0, Chloride 108 H, Carbon Dioxide 22.0, Anion Gap 7, BUN 26 H, Creatinine 0.96, Estim Creat Clear Calc 55.42, Est GFR (MDRD) Af Amer 75, Est GFR (MDRD) Non-Af 62, BUN/Creatinine Ratio 27.1 H, Glucose 192 H, Calcium 8.8 Current Medications Albuterol Sulfate (Albuterol 2.5 Mg/3 Ml Vial.Neb.) 2.5 mg INHALATION Q6H PRN PRN PRN Reason: SOB &/OR WHEEZING Albuterol/Ipratropium (Ipratropium/Albuterol Sulfate 3 Ml Ampul.Neb) 3 ml INHALATION Q4HWA.RT [facility] Aspirin (Aspirin 81 Mg Tab.Chew) 81 mg PO DAILYCM [facility] Last Admin: 08/27/20 09:10 Dose: 81 mg Documented by: Sodium Chloride () 1,000 mls @ 100 mls/hr IV .Q10H [facility] Last Admin: 08/27/20 02:17 Dose: 100 mls/hr Documented by: Lisinopril (Lisinopril 10 Mg Tablet) 10 mg PO DAILY [facility] Last Admin: 08/27/20 09:11 Dose: 10 mg Documented by: Melatonin (Melatonin 3 Mg Tablet) 3 mg PO QHS PRN PRN PRN Reason: INSOMNIA Meloxicam (Meloxicam 7.5 Mg Tablet) 7.5 mg PO DAILY [facility] Last Admin: 08/27/20 09:11 Dose: 7.5 mg Documented by: Ondansetron HCl (Ondansetron 4 Mg/2 Ml Vial) 4 mg IV Q8H PRN PRN PRN Reason: NAUSEA/VOMITING Prednisone (Prednisone 20 Mg Tablet) 40 mg PO DAILY@0800 [facility] Last Admin: 08/27/20 09:10 Dose: 40 mg Documented by: Sodium Chloride (0.9% Saline Lock 10 Ml Syringe) 10 - 40 ml IV UD PRN PRN Reason: SALINE FLUSH Throat Lozenges (Benzocaine/Menthol 1 Lozenge) 1 lozenge MUCOUS MEM Q2H PRN PRN PRN Reason: sore throat/cough Last Admin: 08/27/20 09:12 Dose: 1 lozenge Documented by: Tizanidine HCl (Tizanidine Hcl 2 Mg Tablet) 2 mg PO Q8H PRN PRN PRN Reason: MUSCLE SPASM Last Admin: 08/27/20 04:37 Dose: 2 mg Documented by: Tolterodine Tartrate (Tolterodine Tartrate 2 Mg Cap.Sa) 2 mg PO DAILY [facility] Last Admin: 08/27/20 09:10 Dose: 2 mg Documented by: STROKE Vital Signs/Narrative: Vital Signs Temp Pulse Resp BP Pulse Ox 08/27/20 09:00 97.5 F L 95 22 H 120/94 H 95 Medical Necessity - Tobacco Use Smoking Status: Former smoker Tobacco Use: Cigarettes Assessment/Plan All Active Problems COPD exacerbation (Acute) 1. Acute COPD exacerbation with acute hypoxic resp insufficiency - provide solumedrol, duonebs, IS, CXR is normal. No fever/leukocytosis. Covid neg. 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 States this is first hospital admission for COPD. Quit smoking February 2020. Trop neg. She was 88 percent with ambulation now stable on 2 lpm. -Wean o2 as tolerated -continue solumedrol/duonebs 2. Hyperkalemia - resolved with IV fluids. 3. PAD - prior stenting - pletal, aspirin. follow up with vascular surgeon as o/p in [place]. Pt planning to have some sort of surgical procedure to correct this in September. 4. HTN - lisinopril 5. Cervical pinched nerve - chronic neck pain, zanaflex and meloxicam as outpatient - continue. 6. Former alcoholic - sober x 128 days 7. Former crack cocaine addict - sober x 128 days - tox screen pending. DVT ppx: lovenox This patient was seen by Faustino Wesley PA-C under the supervision of Dr. Kenny <Rita Kenny - Last Filed: 08/27/20 15:08> Vitals/I&O's: Vital Signs Temp Pulse Resp BP Pulse Ox 97.7 F L 103 H 18 108/97 H 97 08/27/20 12:00 08/27/20 12:00 08/27/20 12:00 08/27/20 12:00 08/27/20 12:00 Oxygen Flow Rate (L/min) 1 Oxygen Delivery Method Nasal Cannula Weight: 158 lb 7.3 oz Body Mass Index (BMI) 25.5 Intake and Output for Last 24 Hours 08/25/20 08/26/20 08/27/20 23:59 23:59 23:59 Intake Total 2428.33 / 2428.33 Output Total 1100 / 1100 Balance 1328.33 / 1328.33 Microbiology Past 72 Hours 08/26/20 14:55 Mucosa - Nose SARS-CoV-2 Antigen (Rapid) - Final Laboratory Results 08/26/20 14:35: WBC 7.4, RBC 5.05, Hgb 15.2 H, Hct 47.3 H, MCV 93.7, MCH 30.1, MCHC 32.1, RDW Std Deviation 44.7 H, RDW Coeff of Oleg 13.1, Plt Count 302, MPV 10.0, Immature Gran % (Auto) 0.100, Neut % (Auto) 50.2, Lymph % (Auto) 32.7, Jennings % (Auto) 7.4, Eos % (Auto) 8.9 H, Baso % (Auto) 0.7, Absolute Neuts (auto) 3.7, Absolute Lymphs (auto) 2.43, Nucleated RBC % 0 08/26/20 14:35: Sodium 139, Potassium 5.3 H, Chloride 108 H, Carbon Dioxide 29.0, Anion Gap 2 L, BUN 29 H, Creatinine 1.23 H, Estim Creat Clear Calc 43.26, Est GFR (MDRD) Af Amer 56 L, Est GFR (MDRD) Non-Af 47 L, BUN/Creatinine Ratio 23.6 H, Glucose 92, Calcium 9.7, Troponin I 0.016 08/26/20 20:00: Ethyl Alcohol < 3.0 08/27/20 07:36: WBC 9.0, RBC 4.41, Hgb 13.1, Hct 41.6, MCV 94.3, MCH 29.7, MCHC 31.5 L, RDW Std Deviation 43.9, RDW Coeff of Oleg 12.7, Plt Count 288, MPV 10.1, Immature Gran % (Auto) 0.200, Neut % (Auto) 83.4 H, Lymph % (Auto) 14.1 L, Jennings % (Auto) 2.2, Eos % (Auto) 0.0, Baso % (Auto) 0.1, Absolute Neuts (auto) 7.5, Absolute Lymphs (auto) 1.26, Nucleated RBC % 0 08/27/20 07:36: Sodium 137, Potassium 4.0, Chloride 108 H, Carbon Dioxide 22.0, Anion Gap 7, BUN 26 H, Creatinine 0.96, Estim Creat Clear Calc 55.42, Est GFR (MDRD) Af Amer 75, Est GFR (MDRD) Non-Af 62, BUN/Creatinine Ratio 27.1 H, Glucose 192 H, Calcium 8.8 08/27/20 11:00: Urine Opiates Screen NEGATIVE, Urine Methadone Screen NEGATIVE, Ur Barbiturates Screen NEGATIVE, Ur Phencyclidine Scrn NEGATIVE, Ur Amphetamines Screen NEGATIVE, U Methamphetamin-MDMA NEGATIVE, U Benzodiazepines Scrn NEGATIVE, Urine Cocaine Screen NEGATIVE, U Cannabinoids Screen NEGATIVE, Ur Drug Screen Comment Current Medications Albuterol Sulfate (Albuterol 2.5 Mg/3 Ml Vial.Neb.) 2.5 mg INHALATION Q6H PRN PRN PRN Reason: SOB &/OR WHEEZING Albuterol/Ipratropium (Ipratropium/Albuterol Sulfate 3 Ml Ampul.Neb) 3 ml INHALATION Q4HWA.RT [facility] Last Admin: 08/27/20 11:33 Dose: 3 ml Documented by: Aspirin (Aspirin 81 Mg Tab.Chew) 81 mg PO DAILYCM [facility] Last Admin: 08/27/20 09:10 Dose: 81 mg Documented by: Sodium Chloride () 1,000 mls @ 100 mls/hr IV .Q10H [facility] Last Admin: 08/27/20 12:22 Dose: 100 mls/hr Documented by: Lisinopril (Lisinopril 10 Mg Tablet) 10 mg PO DAILY [facility] Last Admin: 08/27/20 09:11 Dose: 10 mg Documented by: Melatonin (Melatonin 3 Mg Tablet) 3 mg PO QHS PRN PRN PRN Reason: INSOMNIA Meloxicam (Meloxicam 7.5 Mg Tablet) 7.5 mg PO DAILY [facility] Last Admin: 08/27/20 09:11 Dose: 7.5 mg Documented by: Ondansetron HCl (Ondansetron 4 Mg/2 Ml Vial) 4 mg IV Q8H PRN PRN PRN Reason: NAUSEA/VOMITING Prednisone (Prednisone 20 Mg Tablet) 40 mg PO DAILY@0800 [facility] Last Admin: 08/27/20 09:10 Dose: 40 mg Documented by: Sodium Chloride (0.9% Saline Lock 10 Ml Syringe) 10 - 40 ml IV UD PRN PRN Reason: SALINE FLUSH Throat Lozenges (Benzocaine/Menthol 1 Lozenge) 1 lozenge MUCOUS MEM Q2H PRN PRN PRN Reason: sore throat/cough Last Admin: 08/27/20 11:01 Dose: 1 lozenge Documented by: Tizanidine HCl (Tizanidine Hcl 2 Mg Tablet) 2 mg PO Q8H PRN PRN PRN Reason: MUSCLE SPASM Last Admin: 08/27/20 04:37 Dose: 2 mg Documented by: Tolterodine Tartrate (Tolterodine Tartrate 2 Mg Cap.Sa) 2 mg PO DAILY [facility] Last Admin: 08/27/20 09:10 Dose: 2 mg Documented by: STROKE Vital Signs/Narrative: Vital Signs Temp Pulse Resp BP Pulse Ox 08/27/20 12:00 97.7 F L 103 H 18 108/97 H 97 08/27/20 11:35 95 24 H 91 Assessment/Plan Patient seen by Faustino Wesley PA-C under my supervision Patient seen and examined. He was admitted with a complaint of shortness of breath and has been managed for acute COPD exacerbation. Patient still complains of feeling short of breath today and is wheezing. Is also coughing. Covid was negative. He states he quit smoking in February 2020. She denies any fever or chills, nausea vomiting. Review of symptoms otherwise negative. O/E: Vital Signs Temp Pulse Resp BP Pulse Ox 97.7 F L 103 H 18 108/97 H 97 08/27/20 12:00 08/27/20 12:00 08/27/20 12:00 08/27/20 12:00 08/27/20 12:00 General: Alert, Oriented x3, Cooperative HEENT: Atraumatic, PERRLA, EOMI, Normocephalic Neck: Supple, No JVD, Negative Carotid Bruits Lungs: Diminished, Wheezes Cardiovascular: Regular rate, No murmurs Abdomen: Bowel Sounds Present, Soft, Non Tender Extremities: No edema, Capillary Refill Less than 3 Seconds Skin: No rashes, No breakdown Musculoskeletal: No Tenderness to Palpation of Joints or Extremities Neurological: Cranial nerves II-XII grossly intact Psych/Mental Status: Anxious, Alert and oriented to time, place, person, mood and affect Plan is to switch PO prednisone to IV solumedrol; continue breathing treatment with bronchodilators. Titrate oxygen to maintain saturation above 90%. Patient also had mild hyperkalemia which is now resolved. Patient also complains of pinched nerve in her neck which is chronic and she is to follow-up with a spine surgeon on outpatient basis. Continue Zanaflex and Mobic. Rest as per Faustino Wesley PA-C's note, which I have reviewed and endorsed. Inpatient E&M: [id number] Subs Hosp L2
[2020-08-27 11:32] LABS: Amphetamine Urine VISTA NEGATIVE (<1000 ng/mL); Barbiturate Urine VISTA NEGATIVE (< 200 ng/mL); Benzodiazepine Urine VISTA NEGATIVE (< 200 ng/mL); Cocaine Urine VISTA NEGATIVE (< 300 ng/mL); Ecstacy Urine VISTA NEGATIVE (< 500 ng/mL); Methadone Urine VISTA NEGATIVE (< 300 ng/mL); PCP Urine VISTA NEGATIVE (< 25 ng/mL); THC Urine VISTA NEGATIVE (< 50 ng/mL); Vista UDS pH Range 5
[2020-08-27] MEDS: Ipratropium/Albuterol Sulfate 3 ML AMPUL.NEB INHALATION ×3 (11:33→19:21)
--- NOTE | 2020-08-27 12:40 | CASEMGMT ---
RN ERIK Face to Face with patient for initial transition planning/care coordination assessment. RN CM introduced self and role at [facility]. Patient lying in bed, alert and oriented. Patient willing to participate in assessment and is able to answer all questions appropriately. Care providers, pharmacy, and demographics verified. Patient wishes to discharge home, denies need for home health at this time. Patient states she has no further needs or concerns at this time. CM to follow for discharge planning needs that may arise. PCP: Anna PCP Specialists: [facility] vascular surgeon Preferred Pharmacy: [facility] Insurance: JAYCEE SMITH Prescription Benefit: yes Living Will/HPOA: none LNOK: son Living Arrangements: Patient lives alone in a first floor apartment. Patient state she is independent at home. Transportation: public transport DME/HHC: Patient denies DME or previous HHC. Will monitor need for home oxygen at discharge. DME list provided and would like [employer]. Disposition Plan: Patient to discharge home with follow-up plans in place. Cherry KRISHNAMURTHY, RN, CM
[2020-08-27] MEDS: 0.9% Saline Lock 10 ML Syringe IV (21:02)
[2020-08-27] MEDS: Acetaminophen 325 MG Tablet 650 MG PO (22:31)
[2020-08-28] VITALS (11 sets, daily range): BP systolic 128–175; BP diastolic 53–99; PULSE 68–110; RESP 18–28; TEMP 36.2–37.2; O2SAT 89–100
[2020-08-28] MEDS: BENZOCAINE/MENTHOL 1 LOZENGE MUCOUS MEM ×4 (01:46→17:19)
[2020-08-28] MEDS: tiZANidine HCl 2 MG Tablet PO ×2 (01:51→14:36)
--- NOTE | 2020-08-28 02:50 | EKG12_ITS ---
Test Reason : CP Blood Pressure : / mmHG Vent. Rate : 108 BPM Atrial Rate : 108 BPM P-R Int : 122 ms QRS Dur : 070 ms QT Int : 310 ms P-R-T Axes : 079 084 -83 degrees QTc Int : [address] & T wave abnormality, consider inferolateral ischemia Abnormal ECG Confirmed by MARÍA CORTÉS, BRYANT ([id number]), writer editor ANNABELLE HWANG ([id number]) on 08/31/2020 9:54:05 AM Referred By: CARLOS Confirmed By:BRYANT DANIEL MD
[2020-08-28] MEDS: guaiFENesin/Codeine 5 ML UDC PO ×3 (03:49→17:57)
[2020-08-28] MEDS: Acetaminophen 325 MG Tablet 650 MG PO ×3 (04:53→21:06)
[2020-08-28] MEDS: Ipratropium/Albuterol Sulfate 3 ML AMPUL.NEB INHALATION ×4 (06:50→19:05)
--- NOTE | 2020-08-28 06:54 | CPS ---
patient oxygen 100% while resting, decreases when up moving
[2020-08-28] MEDS: Lisinopril 10 MG Tablet PO (08:32)
[2020-08-28] MEDS: Meloxicam 7.5 MG Tablet PO (08:32)
[2020-08-28] MEDS: Tolterodine Tartrate 2 MG CAP.SA PO (08:32)
[2020-08-28] MEDS: Aspirin 81 MG TAB.CHEW PO (08:32)
[2020-08-28] MEDS: 0.9% Normal Saline 1,000 ML 100 ML IV (08:35)
--- NOTE | 2020-08-28 11:35 | PN_ITS ---
Patient Problems: Active and Suspected Problems COPD exacerbation (Acute) Subjective: Patient seen and examined. She feels much better today, though she does feel short of breath. She denies any cough, chest pain, palpitations, dizziness, nausea and vomiting. Review of systems is otherwise negative. BP is elevated this morning at 175/99. She apparently complained of some chest pain overnight and EKG done showed no acute ST changes. Troponins checked were negative. Vitals/I&O's: Vital Signs Temp Pulse Resp BP Pulse Ox 98.4 F 99 20 H 175/99 H 95 08/28/20 08:20 08/28/20 10:32 08/28/20 10:32 08/28/20 08:20 08/28/20 08:20 Oxygen Flow Rate (L/min) 1 Oxygen Delivery Method Nasal Cannula Weight: 158 lb 7.3 oz Body Mass Index (BMI) 25.5 Intake and Output for Last 24 Hours 08/26/20 08/27/20 08/28/20 23:59 23:59 23:59 Intake Total 4028.33 / 4028.33 1230.33 / 1230.33 Output Total 1600 / 1600 1800 / 1800 Balance 2428.33 / 2428.33 -569.67 / -569.67 General: Alert, Oriented x3, Cooperative HEENT: Atraumatic, PERRLA, EOMI, Normocephalic Neck: Supple, No JVD, Negative Carotid Bruits Lungs: Diminished,minimal wheezes. On 1L of oxygen by nasal canula Cardiovascular: Regular rate, No murmurs Abdomen: Bowel Sounds Present, Soft, Non Tender Extremities: No edema, Capillary Refill Less than 3 Seconds Skin: No rashes, No breakdown Musculoskeletal: No Tenderness to Palpation of Joints or Extremities Neurological: Cranial nerves II-XII grossly intact Psych/Mental Status: Anxious, Alert and oriented to time, place, person, mood and affect Microbiology Past 72 Hours 08/26/20 14:55 Mucosa - Nose SARS-CoV-2 Antigen (Rapid) - Final Laboratory Results 08/28/20 03:35: Troponin I 0.025 08/28/20 07:17: Troponin I 0.033 08/28/20 09:11: Troponin I 0.021 Current Medications Acetaminophen (Acetaminophen 325 Mg Tablet) 650 mg PO Q6H PRN PRN PRN Reason: pain 1-07/09 Last Admin: 08/28/20 04:53 Dose: 650 mg Documented by: Albuterol Sulfate (Albuterol 2.5 Mg/3 Ml Vial.Neb.) 2.5 mg INHALATION Q6H PRN PRN PRN Reason: SOB &/OR WHEEZING Albuterol/Ipratropium (Ipratropium/Albuterol Sulfate 3 Ml Ampul.Neb) 3 ml INHALATION Q4HWA.RT [facility] Last Admin: 08/28/20 10:31 Dose: 3 ml Documented by: Aspirin (Aspirin 81 Mg Tab.Chew) 81 mg PO DAILYCM [facility] Last Admin: 08/28/20 08:32 Dose: 81 mg Documented by: Guaifenesin/Codeine Phosphate (Guaifenesin/Codeine 5 Ml Udc) 5 ml PO Q6H PRN PRN PRN Reason: COUGH Last Admin: 08/28/20 10:19 Dose: 5 ml Documented by: Lisinopril (Lisinopril 10 Mg Tablet) 10 mg PO DAILY [facility] Last Admin: 08/28/20 08:32 Dose: 10 mg Documented by: Melatonin (Melatonin 3 Mg Tablet) 3 mg PO QHS PRN PRN PRN Reason: INSOMNIA Meloxicam (Meloxicam 7.5 Mg Tablet) 7.5 mg PO DAILY [facility] Last Admin: 08/28/20 08:32 Dose: 7.5 mg Documented by: Methylprednisolone (Methylprednisolone 40 Mg/Ml Vial) 40 mg IV Q8 [facility] Last Admin: 08/28/20 04:53 Dose: 40 mg Documented by: Ondansetron HCl (Ondansetron 4 Mg/2 Ml Vial) 4 mg IV Q8H PRN PRN PRN Reason: NAUSEA/VOMITING Sodium Chloride (0.9% Saline Lock 10 Ml Syringe) 10 - 40 ml IV UD PRN PRN Reason: SALINE FLUSH Last Admin: 08/27/20 21:02 Dose: 10 ml Documented by: Throat Lozenges (Benzocaine/Menthol 1 Lozenge) 1 lozenge MUCOUS MEM Q2H PRN PRN PRN Reason: sore throat/cough Last Admin: 08/28/20 08:32 Dose: 1 lozenge Documented by: Tizanidine HCl (Tizanidine Hcl 2 Mg Tablet) 2 mg PO Q8H PRN PRN PRN Reason: MUSCLE SPASM Last Admin: 08/28/20 01:51 Dose: 2 mg Documented by: Tolterodine Tartrate (Tolterodine Tartrate 2 Mg Cap.Sa) 2 mg PO DAILY [facility] Last Admin: 08/28/20 08:32 Dose: 2 mg Documented by: STROKE Vital Signs/Narrative: Vital Signs Temp Pulse Resp BP Pulse Ox 08/28/20 10:32 99 20 H 08/28/20 08:20 98.4 F 85 20 H 175/99 H 95 Medical Necessity - Tobacco Use Smoking Status: Former smoker Tobacco Use: Cigarettes Assessment/Plan All Active Problems COPD exacerbation (Acute) # Acute COPD exacerbation * now on 1L of oxygen. Shortness of breath has improved, and wheezing is better. * on IV solumedrol 40mg q8,. and breathing treatment with bronchodilators * titrate oxygen to maintain sats >90% * check walking pulse ox prior to discharge to see if she qualifies for home oxygen * # Hyperkalemia: resolved # Peripheral artery disease * s/p stents. on aspirin and pletal * to follow up with vascular surgeon on outpatient basis * # Hypertension; on lisinopril # cervical pinched nerve: this is chronic. on xanaflex and meloxicam # History of alcohol and substance abuse: urine tox clean. Currently in outpatient rehab. DVT prophylaxis: lovenox Inpatient E&M: 16206 Subs Hosp L2
[2020-08-28] MEDS: 0.9% Saline Lock 10 ML Syringe IV ×2 (14:40→21:02)
[2020-08-28] MEDS: Senna/Docusate Sodium 1 Tablet 2 TABLET PO ×2 (18:43→21:06)
[2020-08-28] MEDS: MELATONIN 3 MG TABLET PO (21:06)
[2020-08-29] VITALS (8 sets, daily range): BP systolic 116–210; BP diastolic 77–126; PULSE 74–118; RESP 18–28; TEMP 36.2–36.9; O2SAT 89–98
[2020-08-29] MEDS: guaiFENesin/Codeine 5 ML UDC PO (05:49)
[2020-08-29] MEDS: Acetaminophen 325 MG Tablet 650 MG PO (05:49)
[2020-08-29] MEDS: 0.9% Saline Lock 10 ML Syringe IV (05:50)
[2020-08-29 05:52] LABS: Absolute Lymphocyte Count 0.81 X10^3/uL (0.83-4.51); Absolute Neutrophil Count 8.4 X10^3/uL (2.0-7.7); Basophil# 0.01 X10^3/uL; Basophil% 0.1 % (0-1); Hematocrit 41.6 % (37-47); Hemoglobin 13.4 g/dL (12.0-15.0); Lymphocyte # 0.81 X10^3/ul (4.0); Lymphocyte % 8.4 % (19-41); Mean Corp Hgb Conc 32.2 g/dL (32-36); Mean Corpuscular Hgb 30.3 pg (27.0-32.0); Mean Corpuscular Volume 94.1 fL (81-99); Monocyte# 0.21 X10^3/uL; Monocyte% 2.2 % (0-10); NRBC Flagged by Analyzer 0 % (0-5); Neutrophil # 8.43 X10^3/uL (2.7-7.7); Neutrophil % 87.9 % (47-70); Platelet Count 283 K/mm3 (150-450); RBC Distribution Width CV 13.2 % (11.6-14.6); RBC Distribution Width SD 45.4 fl (35.1-43.9); Red Blood Count 4.42 M/mm3 (4.2-5.4); White Blood Count 9.6 K/mm3 (4.4-11.0)
[2020-08-29 06:33] LABS: Anion Gap 4 (5-15); BUN 18 mg/dL (7-18); BUN/Creat Ratio 19.5 RATIO (10-20); Calcium,Total 9.1 mg/dL (8.5-10.1); Chloride 111 mmol/L (98-107); Creatinine, Serum 0.92 mg/dL (0.55-1.02); EST Glomerular Filtration Rate 65 mL/min (>60); Est Glom Filt Rate - Afr Amer 79 mL/min (>60); Estimated Creatinine Clearance 57.83 ml/min; Glucose 118 mg/dL (74-106); Potassium 4.6 mmol/L (3.5-5.1); Sodium Level 140 mmol/L (136-145)
[2020-08-29] MEDS: Aspirin 81 MG TAB.CHEW PO (07:56)
--- NOTE | 2020-08-29 08:34 | EKG12_ITS ---
Test Reason : CP Blood Pressure : / mmHG Vent. Rate : 101 BPM Atrial Rate : 101 BPM P-R Int : 186 ms QRS Dur : 078 ms QT Int : 328 ms P-R-T Axes : 075 082 -83 degrees QTc Int : 425 ms Sinus tachycardia T wave abnormality, consider inferior ischemia Abnormal ECG Confirmed by MARÍA CORTÉS, BRYANT ([id number]), video news editor ANNABELLE HWANG ([id number]) on 08/31/2020 9:56:33 AM Referred By: DR WOOTEN Confirmed By:BRYANT DANIEL MD
[2020-08-29] MEDS: Meloxicam 7.5 MG Tablet PO (09:52)
[2020-08-29] MEDS: Lisinopril 10 MG Tablet PO (09:52)
[2020-08-29] MEDS: Magnesium Hydroxide 30 ML UDC PO (09:52)
[2020-08-29] MEDS: Senna/Docusate Sodium 1 Tablet 2 TABLET PO (09:52)
[2020-08-29] MEDS: Tolterodine Tartrate 2 MG CAP.SA PO (09:52)
[2020-08-29] MEDS: Ipratropium/Albuterol Sulfate 3 ML AMPUL.NEB INHALATION (10:39)
--- NOTE | 2020-08-29 11:17 | DCINST_ITS ---
- Discharge Diagnoses Current Active Problems: Current Active and Chronic Problems Cocaine abuse (Chronic) Alcohol abuse (Chronic) COPD (chronic obstructive pulmonary disease) (Chronic) Depression (Chronic) PAD (peripheral artery disease) (Chronic) COPD exacerbation (Acute) You will use the following diet at home:: Cardiac Your food should be the consistency of: Regular Your liquids should be the consistency of: Regular/Thin Discharge Activity: Return to Normal Activity, - - avoid all smoke exposure Call your doctor if you observe: Fever of 101 or Higher, Shortness of breath Allergies/Adverse Reactions: Allergies No Known Allergies Allergy (Verified 08/26/20 14:37) Medications to take at Discharge Albuterol Sulfate [Ventolin Hfa] 2 puff IH Q4H PRN PRN 08/26/20 Aspirin [Aspirin, Baby] 81 mg PO DAILY 08/26/20 Cilostazol 100 mg PO BID 08/26/20 Lisinopril [Zestril] 10 mg PO DAILY 08/26/20 Oxybutynin Chloride [Oxybutynin Chloride ER] 5 mg PO DAILY 08/26/20 Tizanidine HCl [Zanaflex] 2 mg PO Q8 PRN 08/26/20 Acetaminophen [Tylenol Tablet] 650 mg PO Q6H PRN PRN tab 08/29/20 Meloxicam [Mobic] 7.5 mg PO DAILY #14 tab 08/29/20 Prednisone See Taper PO DAILY #30 tab 08/29/20 The following prescriptions were given: Meloxicam [Mobic] 7.5 mg PO DAILY #14 tab Prescription Printed Prednisone See Taper PO DAILY #30 tab Prescription Printed Primary Care Physician: Martinez Unedrwood NP, [employer] [NON-STAFF] - Please follow up with your Primary Care Physician in: 1 week Test Results: Test results from this visit will be discussed in further detail at your follow- up appointment, if applicable. Please Follow Up With: Vascular surgeon - Your own When: As previously directed Proposed Discharge Date: 08/29/20
--- NOTE | 2020-08-29 13:05 | PCM.DC.SUM ---
<Faustino Wesley - Last Filed: 08/29/20 13:05> Discharge Date and Diagnosis - Problem List Patient Problems: Active and Suspected Problems COPD exacerbation (Acute) Date of Admission: 08/26/20 Date of Discharge: 08/29/20 - Primary Discharge Diagnosis Acute Problems: Active Problems COPD exacerbation (Acute) - Secondary Discharge Diagnosis Chronic Problems: Chronic Problems Cocaine abuse (Chronic) Alcohol abuse (Chronic) History of DVT (deep vein thrombosis) (Chronic) Tobacco abuse (Chronic) COPD (chronic obstructive pulmonary disease) (Chronic) Depression (Chronic) PAD (peripheral artery disease) (Chronic) Hospital Course and Treatment Imaging Results: RAD/Chest 1 View (Portable) IMPRESSION: Normal portable chest. Operations: None Procedures: None Summary of Care Provided: Hospital Course: The patient is a 65 year old F with pmhx of COPD, nicotine abuse, alcoholism and cocaine abuse (now sober), PAD, and chronic neck pain, who presented to the ER with c/o SOB. She was found to have negative CXR, no evidence of sepsis, and she was wheezy with hypoxia to 88% ambulating on room air. The patient was admitted for COPD exacerbation. She was treated with solumedrol and aerosols. She did well with this regimen. Ambulatory hypoxia and wheezing resolved. She was transitioned to prednisone taper. She was discharged home in stable condition. She will follow up with her PCP in 1-2 weeks. She plans to have outpatient follow up with her vascular surgeon to have a bypass surgery for her PAD. This patient was seen by Faustino Wesley PA-C under the supervision of Dr. Kenny [] Patient Problems: Active and Suspected Problems COPD exacerbation (Acute) - Physical Exam Vitals/I&O's: Vital Signs Temp Pulse Resp BP Pulse Ox 97.2 F L 92 18 151/84 H 98 08/29/20 08:15 08/29/20 08:15 08/29/20 09:00 08/29/20 08:15 08/29/20 10:58 Oxygen Flow Rate (L/min) 2 Oxygen Delivery Method Room Air Weight: 158 lb 7.3 oz Body Mass Index (BMI) 25.5 Intake and Output for Last 24 Hours 08/27/20 08/28/20 08/29/20 23:59 23:59 23:59 Intake Total 4028.33 / 4028.33 2230.33 / 2230.33 950 / 950 Output Total 1600 / 1600 3400 / 3400 700 / 700 Balance 2428.33 / 2428.33 -1169.67 / -1169.67 250 / 250 General: Alert, Oriented x3, Cooperative HEENT: Atraumatic, PERRLA, EOMI, Normocephalic Neck: Supple, No JVD, Negative Carotid Bruits Lungs: Clear to auscultation, Normal air movement Cardiovascular: Regular rate, No murmurs Abdomen: Bowel Sounds Present, Soft, Non Tender Extremities: No edema, Capillary Refill Less than 3 Seconds Skin: No rashes, No breakdown Musculoskeletal: No Tenderness to Palpation of Joints or Extremities Neurological: Cranial nerves II-XII grossly intact Psych/Mental Status: Normal Affect, Appropriate, Alert and oriented to time, place, person, mood and affect Microbiology Past 72 Hours 08/26/20 14:55 Mucosa - Nose SARS-CoV-2 Antigen (Rapid) - Final Laboratory Results 08/29/20 05:25: WBC 9.6, RBC 4.42, Hgb 13.4, Hct 41.6, MCV 94.1, MCH 30.3, MCHC 32.2, RDW Std Deviation 45.4 H, RDW Coeff of Oleg 13.2, Plt Count 283, MPV 10.0, Immature Gran % (Auto) 1.400 H, Neut % (Auto) 87.9 H, Lymph % (Auto) 8.4 L, Dare % (Auto) 2.2, Eos % (Auto) 0.0, Baso % (Auto) 0.1, Absolute Neuts (auto) 8.4 H, Absolute Lymphs (auto) 0.81 L, Nucleated RBC % 0 08/29/20 05:25: Sodium 140, Potassium 4.6, Chloride 111 H, Carbon Dioxide 25.0, Anion Gap 4 L, BUN 18, Creatinine 0.92, Estim Creat Clear Calc 57.83, Est GFR (MDRD) Af Amer 79, Est GFR (MDRD) Non-Af 65, BUN/Creatinine Ratio 19.5, Glucose 118 H, Calcium 9.1 Current Medications Acetaminophen (Acetaminophen 325 Mg Tablet) 650 mg PO Q6H PRN PRN PRN Reason: pain 1-07/09 Last Admin: 08/29/20 05:49 Dose: 650 mg Documented by: Albuterol Sulfate (Albuterol 2.5 Mg/3 Ml Vial.Neb.) 2.5 mg INHALATION Q6H PRN PRN PRN Reason: SOB &/OR WHEEZING Albuterol/Ipratropium (Ipratropium/Albuterol Sulfate 3 Ml Ampul.Neb) 3 ml INHALATION Q4HWA.RT [facility] Last Admin: 08/29/20 10:39 Dose: 3 ml Documented by: Aspirin (Aspirin 81 Mg Tab.Chew) 81 mg PO DAILYCM [facility] Last Admin: 08/29/20 07:56 Dose: 81 mg Documented by: Guaifenesin/Codeine Phosphate (Guaifenesin/Codeine 5 Ml Udc) 5 ml PO Q6H PRN PRN PRN Reason: COUGH Last Admin: 08/29/20 05:49 Dose: 5 ml Documented by: Lisinopril (Lisinopril 10 Mg Tablet) 10 mg PO DAILY [facility] Last Admin: 08/29/20 09:52 Dose: 10 mg Documented by: Melatonin (Melatonin 3 Mg Tablet) 3 mg PO QHS PRN PRN PRN Reason: INSOMNIA Last Admin: 08/28/20 21:06 Dose: 3 mg Documented by: Meloxicam (Meloxicam 7.5 Mg Tablet) 7.5 mg PO DAILY [facility] Last Admin: 08/29/20 09:52 Dose: 7.5 mg Documented by: Methylprednisolone (Methylprednisolone 40 Mg/Ml Vial) 40 mg IV Q8 [facility] Last Admin: 08/29/20 05:49 Dose: 40 mg Documented by: Ondansetron HCl (Ondansetron 4 Mg/2 Ml Vial) 4 mg IV Q8H PRN PRN PRN Reason: NAUSEA/VOMITING Senna/Docusate Sodium (Senna/Docusate Sodium 1 Tablet) 2 tablet PO BID [facility] Last Admin: 08/29/20 09:52 Dose: 2 tablet Documented by: Sodium Chloride (0.9% Saline Lock 10 Ml Syringe) 10 - 40 ml IV UD PRN PRN Reason: SALINE FLUSH Last Admin: 08/29/20 05:50 Dose: 10 ml Documented by: Throat Lozenges (Benzocaine/Menthol 1 Lozenge) 1 lozenge MUCOUS MEM Q2H PRN PRN PRN Reason: sore throat/cough Last Admin: 08/28/20 17:19 Dose: 1 lozenge Documented by: Tizanidine HCl (Tizanidine Hcl 2 Mg Tablet) 2 mg PO Q8H PRN PRN PRN Reason: MUSCLE SPASM Last Admin: 08/28/20 14:36 Dose: 2 mg Documented by: Tolterodine Tartrate (Tolterodine Tartrate 2 Mg Cap.Sa) 2 mg PO DAILY [facility] Last Admin: 08/29/20 09:52 Dose: 2 mg Documented by: Discharge Diet: Low fat/ Low Cholesterol, 2000 mg Sodium Diet Discharge Activity: Return to Normal Activity, - - avoid all smoke exposure Call your doctor if you observe: Fever of 101 or Higher, Shortness of breath Home Medications: Medications to take at Discharge Albuterol Sulfate [Ventolin Hfa] 2 puff IH Q4H PRN PRN 08/26/20 Aspirin [Aspirin, Baby] 81 mg PO DAILY 08/26/20 Cilostazol 100 mg PO BID 08/26/20 Lisinopril [Zestril] 10 mg PO DAILY 08/26/20 Oxybutynin Chloride [Oxybutynin Chloride ER] 5 mg PO DAILY 08/26/20 Tizanidine HCl [Zanaflex] 2 mg PO Q8 PRN 08/26/20 Acetaminophen [Tylenol Tablet] 650 mg PO Q6H PRN PRN tab 08/29/20 Meloxicam [Mobic] 7.5 mg PO DAILY #14 tab 08/29/20 Prednisone See Taper PO DAILY #30 tab 08/29/20 Following Prescriptions Were Given to Patient: Meloxicam [Mobic] 7.5 mg PO DAILY #14 tab Prescription Printed Prednisone See Taper PO DAILY #30 tab Prescription Printed Primary Care Physician: Martinez Underwood NP, [employer] [NON-STAFF] - Please follow up with your Primary Care Physician in: 1 week Please Follow Up With: Vascular surgeon - Your own When: As previously directed Disposition: Home Minutes spent on discharge:: 35 Patient Condition:: Stable Medical Necessity - Tobacco Use Smoking Status: Former smoker Tobacco Use: Cigarettes Meaningful Use Info Meaningful Use Diagnoses (Choose all that apply): None applicable <Rita Kenny - Last Filed: 08/29/20 13:54> Discharge Date and Diagnosis - Primary Discharge Diagnosis Acute Problems: Active Problems COPD exacerbation (Acute) - Secondary Discharge Diagnosis Chronic Problems: Chronic Problems Cocaine abuse (Chronic) Alcohol abuse (Chronic) History of DVT (deep vein thrombosis) (Chronic) Tobacco abuse (Chronic) COPD (chronic obstructive pulmonary disease) (Chronic) Depression (Chronic) PAD (peripheral artery disease) (Chronic) Hospital Course and Treatment Summary of Care Provided: Patient seen by Faustino Wesley PA-C under my supervision The patient is a 65 year old F with past medical history as outlined was admitted through the ED with a complaint of shortness of breath and was wheezing and hypoxic as well. She was admitted and managed for acute COPD exacerbation. She was started on IV Solu-Medrol and breathing treatment and bronchodilators. She was also placed on oxygen as needed for shortness of breath. Shortness of breath and wheezing gradually resolved, and patient felt well. Elation, his saturation was 89% on room air and at rest she was at 98% on room air. Patient therefore did not qualify for home oxygen. She remained stable and was discharged on 08/29/2020 on a steroid taper. She is to follow-up with her PCP in 1 to 2 weeks and is also to follow-up with a vascular surgeon for management of her peripheral artery disease. Of note, patient also complained of a pinched nerve in her neck for which she is scheduled to follow-up with spine surgeon on outpatient basis. Patient seen and examined prior to discharge. She felt well and had no complaints. Shortness of breath had resolved. General complain of some constipation. Review of symptoms otherwise negative. Labs and vitals reviewed. Home medication reviewed and reconciled. O/E: Vital Signs Temp Pulse Resp BP Pulse Ox 97.2 F L 92 18 151/84 H 98 08/29/20 08:15 08/29/20 08:15 08/29/20 09:00 08/29/20 08:15 08/29/20 10:58 [] General: Alert, Oriented x3, Cooperative HEENT: Atraumatic, PERRLA, EOMI, Normocephalic Neck: Supple, No JVD, Negative Carotid Bruits Lungs: Diminished,minimal wheezes. On room air Cardiovascular: Regular rate, No murmurs Abdomen: Bowel Sounds Present, Soft, Non Tender Extremities: No edema, Capillary Refill Less than 3 Seconds Skin: No rashes, No breakdown Musculoskeletal: No Tenderness to Palpation of Joints or Extremities Neurological: Cranial nerves II-XII grossly intact Psych/Mental Status: Anxious, Alert and oriented to time, place, person, mood and affect Plan is for discharge home today as above. Rest as per Faustino Wesley PA-C's notes which I have reviewed and endorsed. - Physical Exam Vitals/I&O's: Vital Signs Temp Pulse Resp BP Pulse Ox 97.2 F L 92 18 151/84 H 98 08/29/20 08:15 08/29/20 08:15 08/29/20 09:00 08/29/20 08:15 08/29/20 10:58 Oxygen Flow Rate (L/min) 2 Oxygen Delivery Method Room Air Weight: 158 lb 7.3 oz Body Mass Index (BMI) 25.5 Intake and Output for Last 24 Hours 08/27/20 08/28/20 08/29/20 23:59 23:59 23:59 Intake Total 4028.33 / 4028.33 2230.33 / 2230.33 950 / 950 Output Total 1600 / 1600 3400 / 3400 700 / 700 Balance 2428.33 / 2428.33 -1169.67 / -1169.67 250 / 250 Microbiology Past 72 Hours 08/26/20 14:55 Mucosa - Nose SARS-CoV-2 Antigen (Rapid) - Final Laboratory Results 08/29/20 05:25: WBC 9.6, RBC 4.42, Hgb 13.4, Hct 41.6, MCV 94.1, MCH 30.3, MCHC 32.2, RDW Std Deviation 45.4 H, RDW Coeff of Oleg 13.2, Plt Count 283, MPV 10.0, Immature Gran % (Auto) 1.400 H, Neut % (Auto) 87.9 H, Lymph % (Auto) 8.4 L, Dare % (Auto) 2.2, Eos % (Auto) 0.0, Baso % (Auto) 0.1, Absolute Neuts (auto) 8.4 H, Absolute Lymphs (auto) 0.81 L, Nucleated RBC % 0 08/29/20 05:25: Sodium 140, Potassium 4.6, Chloride 111 H, Carbon Dioxide 25.0, Anion Gap 4 L, BUN 18, Creatinine 0.92, Estim Creat Clear Calc 57.83, Est GFR (MDRD) Af Amer 79, Est GFR (MDRD) Non-Af 65, BUN/Creatinine Ratio 19.5, Glucose 118 H, Calcium 9.1 Current Medications Acetaminophen (Acetaminophen 325 Mg Tablet) 650 mg PO Q6H PRN PRN PRN Reason: pain -07/09 Last Admin: 08/29/20 05:49 Dose: 650 mg Documented by: Albuterol Sulfate (Albuterol 2.5 Mg/3 Ml Vial.Neb.) 2.5 mg INHALATION Q6H PRN PRN PRN Reason: SOB &/OR WHEEZING Albuterol/Ipratropium (Ipratropium/Albuterol Sulfate 3 Ml Ampul.Neb) 3 ml INHALATION Q4HWA.RT [facility] Last Admin: 08/29/20 10:39 Dose: 3 ml Documented by: Aspirin ([facility] 81 [facility]w) [facility] Last Admin: 08/29/20 07:56 Dose: 81 mg Documented by: Guaifenesin/Codeine Phosphate (Guaifenesin/Codeine 5 Ml Udc) 5 ml PO Q6H PRN PRN PRN Reason: COUGH Last Admin: 08/29/20 05:49 Dose: 5 ml Documented by: Lisinopril (Lisinopril 10 Mg Tablet) 10 mg PO DAILY [facility] Last Admin: 08/29/20 09:52 Dose: 10 mg Documented by: Melatonin (Melatonin 3 Mg Tablet) 3 mg PO QHS PRN PRN PRN Reason: INSOMNIA Last Admin: 08/28/20 21:06 Dose: 3 mg Documented by: Meloxicam (Meloxicam 7.5 Mg Tablet) 7.5 mg PO DAILY [facility] Last Admin: 08/29/20 09:52 Dose: 7.5 mg Documented by: Methylprednisolone (Methylprednisolone 40 Mg/Ml Vial) 40 mg IV Q8 [facility] Last Admin: 08/29/20 05:49 Dose: 40 mg Documented by: Ondansetron HCl (Ondansetron 4 Mg/2 Ml Vial) 4 mg IV Q8H PRN PRN PRN Reason: NAUSEA/VOMITING Senna/Docusate Sodium (Senna/Docusate Sodium 1 Tablet) 2 tablet PO BID [facility] Last Admin: 08/29/20 09:52 Dose: 2 tablet Documented by: Sodium Chloride (0.9% Saline Lock 10 Ml Syringe) 10 - 40 ml IV UD PRN PRN Reason: SALINE FLUSH Last Admin: 08/29/20 05:50 Dose: 10 ml Documented by: Throat Lozenges (Benzocaine/Menthol 1 Lozenge) 1 lozenge MUCOUS MEM Q2H PRN PRN PRN Reason: sore throat/cough Last Admin: 08/28/20 17:19 Dose: 1 lozenge Documented by: Tizanidine HCl (Tizanidine Hcl 2 Mg Tablet) 2 mg PO Q8H PRN PRN PRN Reason: MUSCLE SPASM Last Admin: 08/28/20 14:36 Dose: 2 mg Documented by: Tolterodine Tartrate (Tolterodine Tartrate 2 Mg Cap.Sa) 2 mg PO DAILY [facility] Last Admin: 08/29/20 09:52 Dose: 2 mg Documented by: Inpatient E&M: [id number] Disch Hosp
--- NOTE | 2020-08-29 13:55 | PHA.DC.MC ---
Pharmacy Service has performed discharge medication reconciliation and counseling for this patient. 1. PREDNISONE 40MG PO DAILY X 3 DAYS, THEN 30MG X 3 DAYS, THEN 20MG X 3 DAYS, THEN 10MG X 3 DAYS The patient's discharge medication list was reviewed for discrepancies and discrepancies were resolved. Home Medications Albuterol Sulfate [Ventolin Hfa] 2 puff IH Q4H PRN PRN 08/26/20 Aspirin [Aspirin, Baby] 81 mg PO DAILY 08/26/20 Cilostazol 100 mg PO BID 08/26/20 Lisinopril [Zestril] 10 mg PO DAILY 08/26/20 Oxybutynin Chloride [Oxybutynin Chloride ER] 5 mg PO DAILY 08/26/20 Tizanidine HCl [Zanaflex] 2 mg PO Q8 PRN 08/26/20 Acetaminophen [Tylenol Tablet] 650 mg PO Q6H PRN PRN tab 08/29/20 Meloxicam [Mobic] 7.5 mg PO DAILY #14 tab 08/29/20 Prednisone See Taper PO DAILY #30 tab 08/29/20 The patient was counseled on the following discharge medications and changes in medications for homegoing were reviewed. The Reason for Use, instructions for use, and potential side effects were reviewed for all new medications. The patient's questions regarding all of their medications were answered. The patient was able to verbally demonstrate an understanding of their discharge medications.
== END 2020-08-29 14:29 | disposition home or self-care (01) | DRG 192 ==
LOC: ED 16:11 → MS3 16:39
PROVIDERS: Hospitalist; Admitting Provider Family Medicine; Emergency Provider Emergency Medicine; PCP Internal Medicine; Visit Provider Student in an Organized Health Care Education/Training Program
DX: J44.1 Chronic obstructive pulmonary disease with (acute) exacerbation (principal); F10.21 Alcohol dependence, in remission; F14.21 Cocaine dependence, in remission; I73.9 Peripheral vascular disease, unspecified; I10 Essential (primary) hypertension; F32.9 Major depressive disorder, single episode, unspecified; E87.5 Hyperkalemia; G58.9 Mononeuropathy, unspecified; G89.29 Other chronic pain; Z86.718 Personal history of other venous thrombosis and embolism; Z79.899 Other long term (current) drug therapy; Z79.82 Long term (current) use of aspirin; Z95.828 Presence of other vascular implants and grafts; Z87.891 Personal history of nicotine dependence
CPT/HCPCS: 36415; 71045; 80048; 80307; 80320; 84484; 85025; 87426; 93005; 94640; 99285; J7030; A4216; G0480

== ENCOUNTER 2020-09-12 19:48 | Inpatient (IN) | payer MEDICARE, MEDICAID, SELFPAY ==
[2020-08-26 16:50] VITALS: BMI 25.5
[2020-09-12] VITALS (7 sets, daily range): BP systolic 125–132; BP diastolic 81–95; PULSE 100–113; RESP 22–28; TEMP 36.9–37.5; O2SAT 95–96; BMI 26.5
--- NOTE | 2020-09-12 20:13 | EKG12_ITS ---
Test Reason : SOB Blood Pressure : / mmHG Vent. Rate : 102 BPM Atrial Rate : 102 BPM P-R Int : 118 ms QRS Dur : 078 ms QT Int : 306 ms P-R-T Axes : 070 073 249 degrees QTc Int : 398 ms Sinus tachycardia T wave abnormality, consider inferolateral ischemia Abnormal ECG Confirmed by NNAMDI CORTÉS, JOEL ([id number]), school photograph editor ANNABELLE HWANG ([id number]) on 09/21/2020 10:16:25 AM Referred By: IRINA Confirmed By:DEE COTO MD
--- NOTE | 2020-09-12 20:13 | ED.VIS.GEN ---
History of Present Illness Chief Complaint: Shortness of Breath Informant: Patient Narrative: 65-year-old female with history of COPD and previously on O2 presents with shortness of breath and cough. She states has been sick for about 3 days. She has not had a fever but does states she has body aches. She has a painful cough while she does not have chest pain. She states her O2 tanks are in [place]. She moved down here in March for detox from crack. After discharge she lives here now. She denies fevers, change of taste or smell. - Past Medical History (1) Alcohol abuse Status: Chronic (2) Cocaine abuse Status: Chronic (3) Depression Status: Chronic (4) PAD (peripheral artery disease) Status: Chronic Past Medical History - Allergies and Home Meds Allergies/Adverse Reactions: Allergies No Known Allergies Allergy (Verified 09/12/20 19:56) Primary Care Physician: Leonie Castillo MD [Primary Care Provider] - Prior records reviewed: Yes Past Medical History: None Surgical History: noncontributory, - - peripheral arterial stenting Lives: Alone Smoking Status: Former smoker Alcohol: None Drugs: None - Family History Sibling Family History: Reports: Heart Disease - [place] Maternal Family History: Reports: Hypertension Paternal Family History: Reports: - - States she does not know anything about that juliocesar Review of Systems General: Denies: Chills, Fever, Sweats Eyes: Denies: Visual changes - bilaterally, Diplopia ENT: Denies: Rhinorrhea, Sore throat Cardiovascular: Denies: Chest pain, Palpitations Respiratory: Reports: Dyspnea, Cough, Dyspnea on exertion Gastrointestinal: Denies: Abdominal pain, Nausea, Vomiting, Diarrhea, Melena, Hematochezia Genitourinary: Denies: Dysuria, Hematuria, Frequency Musculoskeletal: Reports: Myalgias. Denies: Arthralgias, Neck pain Skin: Denies: Rash, Wounds Neurological: Denies: Headache, Weakness, Numbness Psych: Denies: Depression, Anxiety Physical Exam Vital Signs/Narrative: Vital Signs Temp Pulse Resp BP Pulse Ox 09/12/20 19:49 98.6 F 112 H 28 H 132/95 H 95 Inital Vital Signs reviewed: Yes General: Well nourished, No Acute Distress Head: Normocephalic, Atraumatic Eyes: Perrl, EOMI ENT: Moist mucous membranes, No rhinorrhea Cardiovascular: Regular rate, Tachycardia Respiratory: No distress, Wheezing, Diminished, Decreased Air Movement - Bilateral bases Extremities: Nontender, No edema Skin: Normal color, No rash, Cyanosis. Negative for: Diaphoresis Neurological: Alert, Oriented x3 Psychological: Normal affect, Normal Mood Diagnostic/Tx/Re-eval Clinical Impression(s) from Imaging Studies Chest CTA 09/12/20 20:16 IMPRESSION: No pulmonary embolism, aortic aneurysm, or aortic dissection. Pulmonary emphysema. Severe respiratory motion when imaging the lower lungs. Although no pulmonary embolism is perceived, the negative predictive value of this study to exclude pulmonary embolism within the lower lungs is nondiagnostic due to registration artifact from the respiratory motion. Individualized dose optimization techniques were used for this CT. at 2137 Reported and signed by: Washington Perdomo MD Electronically Signed: Washington Perdomo MD at 21:36 EST Tel , Service support , Chest X-Ray 09/12/20 21:08 IMPRESSION: No acute cardiopulmonary disease. Pulmonary hyperexpansion suggestive of obstructive lung disease. At the time of dictation of the chest x-ray, a chest CT is available. Please refer to that dictation for any additional potential findings.. at 2125 Reported and signed by: Washington Perdomo MD Electronically Signed: Washington Perdomo MD at 21:24 EST Tel , Service support , Laboratory Data 09/12/20 09/12/20 09/12/20 20:05 20:05 20:05 WBC 6.9 RBC 4.50 Hgb 13.4 Hct 40.9 MCV 90.9 MCH 29.8 MCHC 32.8 RDW Std Deviation 44.0 H RDW Coeff of Oleg 13.3 Plt Count 185 MPV 9.9 Immature Gran % (Auto) 0.300 Neut % (Auto) 73.5 H Lymph % (Auto) 22.8 [place] % (Auto) 3.0 Eos % (Auto) 0.3 Baso % (Auto) 0.1 Absolute Neuts (auto) 5.1 Absolute Lymphs (auto) 1.57 Nucleated RBC % 0 PT Cancelled INR Cancelled APTT Cancelled Sodium 136 Potassium 4.6 Chloride 107 Carbon Dioxide 23.0 Anion Gap 6 BUN 19 H Creatinine 0.94 Estim Creat Clear Calc 56.60 Est GFR (MDRD) Af Amer 77 Est GFR (MDRD) Non-Af 64 BUN/Creatinine Ratio 20.3 H Glucose 95 Lactic Acid Calcium 8.6 Total Bilirubin 0.40 AST 52 H ALT 35 Alkaline Phosphatase 68 Troponin I 0.026 Total Protein 7.0 Albumin 2.8 L Globulin 4.2 Albumin/Globulin Ratio 0.7 L Procalcitonin Urine Color Urine Clarity Urine pH Ur Specific [place] Urine Protein Urine Glucose (UA) Urine Ketones Urine Occult Blood Urine Nitrite Urine Bilirubin Urine Urobilinogen Ur Leukocyte Esterase Urine RBC Urine WBC Ur Squamous Epith Cells Amorphous Sediment Urine Bacteria Urine Mucus 09/12/20 09/12/20 09/12/20 20:05 20:49 20:49 WBC RBC Hgb Hct MCV MCH MCHC RDW Std Deviation RDW Coeff of Oleg Plt Count MPV Immature Gran % (Auto) Neut % (Auto) Lymph % (Auto) [place] % (Auto) Eos % (Auto) Baso % (Auto) Absolute Neuts (auto) Absolute Lymphs (auto) Nucleated RBC % PT 12.8 INR 1.0 APTT 33.5 Sodium Potassium Chloride Carbon Dioxide Anion Gap BUN Creatinine Estim Creat Clear Calc Est GFR (MDRD) Af Amer Est GFR (MDRD) Non-Af BUN/Creatinine Ratio Glucose Lactic Acid 0.8 Calcium Total Bilirubin AST ALT Alkaline Phosphatase Troponin I Total Protein Albumin Globulin Albumin/Globulin Ratio Procalcitonin < 0.04 Urine Color Urine Clarity Urine pH Ur Specific [place] Urine Protein Urine Glucose (UA) Urine Ketones Urine Occult Blood Urine Nitrite Urine Bilirubin Urine Urobilinogen Ur Leukocyte Esterase Urine RBC Urine WBC Ur Squamous Epith Cells Amorphous Sediment Urine Bacteria Urine Mucus 09/12/20 20:55 WBC RBC Hgb Hct MCV MCH MCHC RDW Std Deviation RDW Coeff of Oleg Plt Count MPV Immature Gran % (Auto) Neut % (Auto) Lymph % (Auto) [place] % (Auto) Eos % (Auto) Baso % (Auto) Absolute Neuts (auto) Absolute Lymphs (auto) Nucleated RBC % PT INR APTT Sodium Potassium Chloride Carbon Dioxide Anion Gap BUN Creatinine Estim Creat Clear Calc Est GFR (MDRD) Af Amer Est GFR (MDRD) Non-Af BUN/Creatinine Ratio Glucose Lactic Acid Calcium Total Bilirubin AST ALT Alkaline Phosphatase Troponin I Total Protein Albumin Globulin Albumin/Globulin Ratio Procalcitonin Urine Color Yellow Urine Clarity Sl. Cloudy Urine pH 6.0 Ur Specific [place] 1.020 Urine Protein 30 H Urine Glucose (UA) Normal Urine Ketones 5 H Urine Occult Blood 10 H Urine Nitrite Negative Urine Bilirubin Negative Urine Urobilinogen 4 H Ur Leukocyte Esterase 25 H Urine RBC 0-5 SEEN Urine WBC 0-5 SEEN Ur Squamous Epith Cells 0-5 SEEN Amorphous Sediment 1+ URATE Urine Bacteria 0 SEEN Urine Mucus 2+ - Rhythm Strip Rhythm Strip: Sinus Rhythm Rate: 102 - EKG Initial EKG Interpretation: Sinus Tachycardia, Inverted T-Waves - Lateral leads - Medical Decision Making 65-year-old female with history of COPD presenting with shortness of breath. On initial examination she is wheezing. She is given Solu-Medrol 125 mg as well as breathing treatments. She was initially requiring 2 L of oxygen but now she is requiring 4 L of oxygen. Alert and oriented. She is afebrile. She is not complaining of any chest pain. She did have an EKG which is sinus rhythm with T wave inversions in the lateral leads as well as some slight depression in leads II and III interpreted by myself. Does not appear to be changed from her previous EKGs in July 2020. Chest x-ray was negative for acute process as read by myself and the radiologist.. CTA has a lot of motion artifact but does not show any acute PE or obvious disease. CBC is within normal limits. She is slightly dehydrated but otherwise her renal function electrolytes are normal. Regulation studies are normal. Lactic acid is negative. Troponin is negative. Procalcitonin is also negative. On reevaluation patient still appears tachycardic. I did take off her oxygen and she quickly desaturates to 88%. This is without ambulation. Given these findings I did speak with the hospitalist for admission for COPD exacerbation. He states he will wait to determine the Covid status of the patient and determine her needs for home-going versus admission. Patient will be signed out to incoming ED doc for follow-up. Impression: 1. Hypoxia 2. COPD exacerbation ED Disposition - Plan for ED Patient: Referrals: Leonie Castillo MD [Primary Care Provider] -
--- NOTE | 2020-09-12 20:16 | CT_ITS ---
HISTORY: HEMOPTYSIS X 4 DAYS, RECENT HOSPITALIZATION, SOB, HX COPD, RECENT HOSPITALIZATION, HTN, HEPATITIS, SMOKER TECHNIQUE: Helically acquired images were obtained of the chest following the intravenous administration of 75 ML of Isovue-370 Iodinated contrast. as per pulmonary angiogram protocol with 2D , without 3-D MIP reconstructions. A radiation dose optimization technique was used for this scan. COMPARISON: September 12, 2020, a few minutes earlier chest x-ray. A CT angiogram abdomen and pelvis and lower extremity runoff was performed on June 28, 2020. That study begins at the dome of the liver demonstrate some of the lung bases FINDINGS: # of images incl. paperwork: 1125 Motion artifact is fairly severe throughout imaging the lung bases. This significantly diminishes the overall utility of the study. Pulmonary emphysema. Chronic bronchitis. Small area of posterior left lower lobe airspace disease. Small area of left posterior costophrenic sulcus airspace disease. No effusions. Within the thoracic spinebony alignment is normal. 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 Only at the T3-T4 level as they're been ankylosing across the interspinous ligament. Vertebral body height is normal. Facets are well aligned. No rib lesions are perceived. Heart is not enlarged. Thoracic aorta diseased with atherosclerotic plaque. No aneurysms, stenoses, dissections, nor occlusions. Mildly prominent hilar and mediastinal lymphoid tissue without definitive lymphadenopathy. No pulmonary embolism is perceived. However, due to the severity of the respiratory motion within the lower lungs there is significant registration artifact, making this study nondiagnostic to exclude pulmonary embolism within either lower lung Visualized portions of the upper abdomen are without identified acute pathology. CT/CTA Chest W/WO Contrast IMPRESSION: No pulmonary embolism, aortic aneurysm, or aortic dissection. Pulmonary emphysema. Severe respiratory motion when imaging the lower lungs. Although no pulmonary embolism is perceived, the negative predictive value of this study to exclude pulmonary embolism within the lower lungs is nondiagnostic due to registration artifact from the respiratory motion. Individualized dose optimization techniques were used for this CT. at 2137 Reported and signed by: Washington Perdomo MD Electronically Signed: Washington Perdomo MD at 21:36 EST Tel , Service support ,
[2020-09-12 20:25] LABS: Absolute Lymphocyte Count 1.57 X10^3/uL (0.83-4.51); Absolute Neutrophil Count 5.1 X10^3/uL (2.0-7.7); Basophil# 0.01 X10^3/uL; Basophil% 0.1 % (0-1); Eosinophil# 0.02 X10^3/uL; Eosinophils% 0.3 % (0-5); Hematocrit 40.9 % (37-47); Hemoglobin 13.4 g/dL (12.0-15.0); Lymphocyte # 1.57 X10^3/ul (4.0); Lymphocyte % 22.8 % (19-41); Mean Corp Hgb Conc 32.8 g/dL (32-36); Mean Corpuscular Hgb 29.8 pg (27.0-32.0); Mean Corpuscular Volume 90.9 fL (81-99); Mean Platelet Vol. 9.9 fl (6.2-12.0); Monocyte# 0.21 X10^3/uL; NRBC Flagged by Analyzer 0 % (0-5); Neutrophil # 5.06 X10^3/uL (2.7-7.7); Neutrophil % 73.5 % (47-70); Platelet Count 185 K/mm3 (150-450); RBC Distribution Width CV 13.3 % (11.6-14.6); White Blood Count 6.9 K/mm3 (4.4-11.0)
[2020-09-12 20:51] LABS: ALB/GLOB Ratio 0.7 RATIO (0.9-2.4); AST(SGOT) 52 U/L (15-37); Alanine Aminotransfer ALT/SGPT 35 U/L (13-56); Albumin, Serum 2.8 g/dL (3.2-5.0); Alkaline Phosphatase 68 U/L (45-117); Anion Gap 6 (5-15); BUN 19 mg/dL (7-18); BUN/Creat Ratio 20.3 RATIO (10-20); Calcium,Total 8.6 mg/dL (8.5-10.1); Chloride 107 mmol/L (98-107); Creatinine, Serum 0.94 mg/dL (0.55-1.02); EST Glomerular Filtration Rate 64 mL/min (>60); Est Glom Filt Rate - Afr Amer 77 mL/min (>60); Globulin 4.2 g/dL (2.2-4.2); Glucose 95 mg/dL (74-106); Potassium 4.6 mmol/L (3.5-5.1); Sodium Level 136 mmol/L (136-145)
[2020-09-12 21:03] LABS: Bacteria 0 SEEN /hpf (None Seen)
[2020-09-12 21:05] LABS: Color, Urine Yellow (Yellow); Glucose, Dipstick Normal (Normal); Ketone-Dipstick 5 mg/dl (Negative); Leukocyte Esterase-Dipstick 25 /ul (Negative); Nitrite-Dipstick Negative (Negative); Occult Blood-Urine 10 /ul (Negative); Protein-Dipstick 30 mg/dl (Negative); Urine Bilirubin Dipstick Negative (Negative); Urine Clarity Sl. Cloudy (Clear); Urine Urobilinogen 4 mg/dl (Normal)
--- NOTE | 2020-09-12 21:08 | RAD_ITS ---
HISTORY: Tquot;pt recently admitted and discharged around [facility]. cough, started having green and blood tinged sputum since . hx of COPD EXAM: XR Chest 1 View: COMPARISON: August 26, 2020 FINDINGS: # of images incl. paperwork: 1 Calcific plaque in the aortic arch persists. Pulmonary hyperexpansion with interstitial lung disease at the lung bases, left greater than left is chronic Heart is not enlarged. No acute osseous pathology perceived. Pulmonary vascularity is distinct. No effusions. RAD/Chest 1 View (Portable) IMPRESSION: No acute cardiopulmonary disease. Pulmonary hyperexpansion suggestive of obstructive lung disease. At the time of dictation of the chest x-ray, a chest CT is available. Please refer to that dictation for any additional potential findings.. at 2122 Reported and signed by: Washington Perdomo MD Electronically Signed: Washington Perdomo MD at 21:24 EST Tel , Service support ,
[2020-09-12 21:12] LABS: Amorphous Sediment 1+ URATE; Mucous, Urine 2+ /hpf (<or=2+); Red Blood Cells-Urine 0-5 SEEN /hpf (0-5); Squamous Epithelial Cells - UA 0-5 SEEN /hpf (5-10); White Blood Cells 0-5 SEEN /hpf (0-5)
[2020-09-12 21:24] LABS: Partial Thromboplast Time 33.5 Seconds (24.1-36.2); Prothrombin Time (Protime)PT. 12.8 SECONDS (11.7-14.9)
[2020-09-12 21:32] LABS: Lactic Acid 0.8 mmol/L (0.4-1.9)
[2020-09-12] MEDS: Ipratropium/Albuterol Sulfate 3 ML AMPUL.NEB INHALATION (21:34)
[2020-09-12] MEDS: Albuterol 2.5 MG/3 ML VIAL.NEB. INHALATION (21:35)
[2020-09-12 21:37] LABS: Procalcitonin < 0.04 ng/mL (0.00-0.09)
[2020-09-12] MEDS: MethylPREDNISolone 125 MG/2 ML Vial IV (22:55)
[2020-09-13] VITALS (9 sets, daily range): BP systolic 127–147; BP diastolic 53–86; PULSE 92–118; RESP 16–24; TEMP 36.4–37.5; O2SAT 93–96; BMI 25.8; BMI 25.9
--- NOTE | 2020-09-13 00:38 | PCM.HP.STD ---
Problem List (1) Cocaine abuse Status: Chronic (2) Alcohol abuse Status: Chronic (3) Tobacco abuse Status: Chronic (4) COPD (chronic obstructive pulmonary disease) Status: Acute (5) Depression Status: Chronic (6) COPD exacerbation Status: Acute History of Present Illness Date of Admission: 09/13/20 Chief Complaint: Shortness of breath The patient is a 65 year old female patient with a history of drug abuse and chronic obstructive pulmonary disease with a history of smoking presents the emergency room with shortness of breath. She has recently moved here from [place] and has gone through drug detox program. She has not continued her at home use of oxygen that she had been on chronically. She presents with shortness of breath. Covid testing is negative here in the emergency room. CT scan is consistent with COPD exacerbation. Due to hypoxia and increased oxygen demand with tachycardia and rapid respiratory rate patient will be admitted for observation with oxygen support and further support for COPD Past Medical History Past Medical History (Chronic Problems): Chronic Problems Cocaine abuse (Chronic) Alcohol abuse (Chronic) History of DVT (deep vein thrombosis) (Chronic) Tobacco abuse (Chronic) Depression (Chronic) PAD (peripheral artery disease) (Chronic) Allergies No Known Allergies Allergy (Verified 09/12/20 19:56) Home Medications: Ambulatory Orders Medication Instructions Recorded Albuterol Sulfate [Ventolin Hfa] 2 puff IH Q4H PRN PRN 08/26/20 Aspirin [Aspirin, Baby] 81 mg PO DAILY 08/26/20 Cilostazol 100 mg PO BID 08/26/20 Lisinopril [Zestril] 10 mg PO DAILY 08/26/20 Oxybutynin Chloride [Oxybutynin 5 mg PO DAILY 08/26/20 Chloride ER] Tizanidine HCl [Zanaflex] 2 mg PO Q8 PRN 08/26/20 Acetaminophen [Tylenol Tablet] 650 mg PO Q6H PRN PRN tab 08/29/20 Meloxicam [Mobic] 7.5 mg PO DAILY #14 tab 08/29/20 Prednisone See Taper PO DAILY #30 tab 08/29/20 Gabapentin [Neurontin] 300 mg PO QHS 09/12/20 Surgical History: noncontributory, - - peripheral arterial stenting Psychiatric History: Depression 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 Denies: Cough, Sputum production Gastrointestinal: Denies: Abdominal Pain, Nausea, Vomiting Genitourinary: Denies: Dysuria Musculoskeletal: Denies: Joint Pain, Joint Tenderness Skin: Denies: Rash, Wounds Neurological: Denies: Numbness, Tingling, Focal weakness Psychiatric: Denies: Anxiety, Depression, Homicidal Ideations, Suicidal Ideations Hematologic/ Lymphatic: Denies: Easy Bruising, Easy Bleeding VTE Information - Inpt Only VTE Present on Admission: No VTE Mechan Device Prophylaxis: None VTE Pharm Prophylaxis ordered?: Yes - Physical Exam Vitals/I&O's: Vital Signs Temp Pulse Resp BP Pulse Ox 99.5 F H 118 H 24 H 130/86 H 96 09/13/20 00:06 09/13/20 00:06 09/13/20 00:06 09/13/20 00:06 09/13/20 00:06 Oxygen Flow Rate (L/min) 2 Oxygen Delivery Method Nasal Cannula Weight: 164 lb 7.437 oz Body Mass Index (BMI) 26.5 Intake and Output for Last 24 Hours 09/11/20 09/12/20 09/13/20 23:59 23:59 23:59 Intake Total 500 / 500 Balance 500 / 500 General: Alert, Oriented x3, Cooperative HEENT: Atraumatic, Normocephalic Neck: Supple Lungs: Diminished, Wheezes Cardiovascular: Normal S1, Normal S2, No murmurs, Tachycardic Abdomen: Bowel Sounds Present, Soft, Non Tender Extremities: No edema Skin: No rashes Musculoskeletal: No Tenderness to Palpation of Joints or Extremities Neurological: Neuro grossly intact Psych/Mental Status: Normal Affect, Appropriate Microbiology Past 72 Hours 09/12/20 23:45 Mucosa - Nasopharyngeal SARS-CoV-2 Antigen (Rapid) - Final Laboratory Results 09/12/20 20:05: WBC 6.9, RBC 4.50, Hgb 13.4, Hct 40.9, MCV 90.9, MCH 29.8, MCHC 32.8, RDW Std Deviation 44.0 H, RDW Coeff of Oleg 13.3, Plt Count 185, MPV 9.9, Immature Gran % (Auto) 0.300, Neut % (Auto) 73.5 H, Lymph % (Auto) 22.8, [place] % (Auto) 3.0, Eos % (Auto) 0.3, Baso % (Auto) 0.1, Absolute Neuts (auto) 5.1, Absolute Lymphs (auto) 1.57, Nucleated RBC % 0 09/12/20 20:05: PT Cancelled, INR Cancelled, APTT Cancelled 09/12/20 20:05: Sodium 136, Potassium 4.6, Chloride 107, Carbon Dioxide 23.0, Anion Gap 6, BUN 19 H, Creatinine 0.94, Estim Creat Clear Calc 56.60, Est GFR (MDRD) Af Amer 77, Est GFR (MDRD) Non-Af 64, BUN/Creatinine Ratio 20.3 H, Glucose 95, Calcium 8.6, Total Bilirubin 0.40, AST 52 H, ALT 35, Alkaline Phosphatase 68, Troponin I 0.026, Total Protein 7.0, Albumin 2.8 L, Globulin 4.2, Albumin/Globulin Ratio 0.7 L 09/12/20 20:05: Procalcitonin < 0.04 09/12/20 20:49: Lactic Acid 0.8 09/12/20 20:49: PT 12.8, INR 1.0, APTT 33.5 09/12/20 20:55: Urine Color Yellow, Urine Clarity Sl. Cloudy, Urine pH 6.0, Ur Specific [place] 1.020, Urine Protein 30 H, Urine Glucose (UA) Normal, Urine Ketones 5 H, Urine Occult Blood 10 H, Urine Nitrite Negative, Urine Bilirubin Negative, Urine Urobilinogen 4 H, Ur Leukocyte Esterase 25 H, Urine RBC 0-5 SEEN, Urine WBC 0-5 SEEN, Ur Squamous Epith Cells 0-5 SEEN, Amorphous Sediment 1+ URATE, Urine Bacteria 0 SEEN, Urine Mucus 2+ Assessment/Plan All Active Problems COPD (chronic obstructive pulmonary disease) (Acute) COPD exacerbation (Acute) Chronic Problems Cocaine abuse (Chronic) Alcohol abuse (Chronic) History of DVT (deep vein thrombosis) (Chronic) Tobacco abuse (Chronic) COPD (chronic obstructive pulmonary disease) (Chronic) Depression (Chronic) PAD (peripheral artery disease) (Chronic) Plan 1. Acute COPD exacerbation?Place patient in general medical floor, oxygen support per routine, Solu-Medrol 40 mg IV every 8 hours, DuoNeb INH every 4 hours as needed, consult case management for assistance with discharge planning and home oxygen therapy. 2. Tobacco abuse?patient states that she has quit this week however cessation was encouraged further 3. Depression continue home medications 4. DVT prophylaxis?low molecular weight heparin 5. History of cocaine and alcohol abuse?patient is status post rehab but will observe and monitor for symptoms of withdrawal Inpatient E&M: 38211 Init Hosp L3
[2020-09-13] MEDS: 0.9% Normal Saline 1,000 ML 75 ML IV ×2 (02:07→15:05)
[2020-09-13] MEDS: Acetaminophen 325 MG Tablet 650 MG PO ×3 (05:13→21:56)
[2020-09-13] MEDS: Ipratropium/Albuterol Sulfate 3 ML AMPUL.NEB INHALATION ×4 (07:10→23:24)
[2020-09-13 07:41] LABS: Absolute Lymphocyte Count 0.46 X10^3/uL (0.83-4.51); Hematocrit 38.2 % (37-47); Hemoglobin 12.5 g/dL (12.0-15.0); Lymphocyte # 0.46 X10^3/ul (4.0); Mean Corp Hgb Conc 32.7 g/dL (32-36); Mean Corpuscular Hgb 29.6 pg (27.0-32.0); Mean Corpuscular Volume 90.5 fL (81-99); Mean Platelet Vol. 9.9 fl (6.2-12.0); Monocyte# 0.03 X10^3/uL; Monocyte% 0.8 % (0-10); NRBC Flagged by Analyzer 0 % (0-5); Neutrophil # 3.03 X10^3/uL (2.7-7.7); Neutrophil % 85.9 % (47-70); POSITIVE DIFFERENTIAL YES; POSITIVE MORPHOLOGY YES; Platelet Count 176 K/mm3 (150-450); RBC Distribution Width CV 13.2 % (11.6-14.6); RBC Distribution Width SD 43.6 fl (35.1-43.9); Red Blood Count 4.22 M/mm3 (4.2-5.4); White Blood Count 3.5 K/mm3 (4.4-11.0)
--- NOTE | 2020-09-13 07:41 | CCHN_ITS ---
Hospitalist Note 65-year-old female with history of substance use, crack cocaine and smoking cigarette, chronic hypoxic respiratory failure on home oxygen, noncompliant was admitted with shortness of breath, cough along with greenish and blood-tinged sputum consistent with COPD exacerbation. Patient complaining of chronic numbness and tingling of left lower extremities and states she has peripheral vascular disease. Physical exam General: Alert, Oriented x3, Cooperative HEENT: Atraumatic, PERRLA, EOMI, Normocephalic Oral: No Gingival or Mucosal Lesions/ Ulcerations Neck: Supple, No JVD, Negative Carotid Bruits Lungs: Air entry diminished diffusely in all lung stevens. Bilateral coarse rhonchi and wheezing present. Cardiovascular: S1-S2 regular, no murmur gallop or rub. 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 Abdomen: Bowel Sounds Present, Soft, Non Tender, Non-Distended : No renal angle tenderness. No suprapubic tenderness. Extremities: No edema, Capillary Refill Less than 3 Seconds Skin: No rashes, No breakdown Musculoskeletal: No Tenderness to Palpation of Joints or Extremities Neurological: Cranial nerves II-XII grossly intact, Deep Tendon Reflexes 2+/4 and Symmetrical, Neuro grossly intact Psych/Mental Status: Anxious, restless crying. And 1. Acute COPD exacerbation?Place patient in general medical floor, oxygen support per routine, Solu-Medrol 40 mg IV every 8 hours, DuoNeb INH every 4 hours as needed, consult case management for discharge planning and home oxygen therapy. 2. Tobacco abuse?patient states that she has quit this week however cessation was encouraged further. Consult [facility]. 3. Depression continue home medications 4. DVT prophylaxis?low molecular weight heparin 5. History of cocaine and alcohol abuse?patient is status post rehab but will observe and monitor for symptoms of withdrawal Clinical Impression(s) from Imaging Studies Chest CTA 09/12/20 20:16 IMPRESSION: No pulmonary embolism, aortic aneurysm, or aortic dissection. Pulmonary emphysema. Severe respiratory motion when imaging the lower lungs. Although no pulmonary embolism is perceived, the negative predictive value of this study to exclude pulmonary embolism within the lower lungs is nondiagnostic due to registration artifact from the respiratory motion. Individualized dose optimization techniques were used for this CT. Chest X-Ray 09/12/20 21:08 IMPRESSION: No acute cardiopulmonary disease. Pulmonary hyperexpansion suggestive of obstructive lung disease. At the time of dictation of the chest x-ray, a chest CT is available. Please refer to that dictation for any additional potential findings..
[2020-09-13 07:42] LABS: Differential Indicated SCAN CRITERIA MET
[2020-09-13] MEDS: Enoxaparin 40 MG/0.4 ML Syringe SC (07:48)
[2020-09-13] MEDS: Oxybutynin 5 MG Tablet PO (07:48)
[2020-09-13] MEDS: Aspirin 81 MG TAB.CHEW PO (07:48)
[2020-09-13] MEDS: Cilostazol 50 MG Tablet 100 MG PO ×2 (07:48→21:08)
[2020-09-13] MEDS: Meloxicam 7.5 MG Tablet PO (07:49)
[2020-09-13] MEDS: Lisinopril 10 MG Tablet PO (07:49)
[2020-09-13 07:54] LABS: Anion Gap 8 (5-15); BUN 20 mg/dL (7-18); BUN/Creat Ratio 18.7 RATIO (10-20); Calcium,Total 8.6 mg/dL (8.5-10.1); Chloride 105 mmol/L (98-107); Creatinine, Serum 1.07 mg/dL (0.55-1.02); EST Glomerular Filtration Rate 55 mL/min (>60); Est Glom Filt Rate - Afr Amer 66 mL/min (>60); Estimated Creatinine Clearance 49.72 ml/min; Glucose 288 mg/dL (74-106); Potassium 4.1 mmol/L (3.5-5.1); Sodium Level 137 mmol/L (136-145)
[2020-09-13] MEDS: busPIRone 5 MG Tablet 10 MG PO ×2 (12:20→21:08)
[2020-09-13 13:04] LABS: Pathologist Review Reviewed
--- NOTE | 2020-09-13 13:51 | CASEMGMT ---
CHARMAINE VALENCIA Readmission Note Previous Admission: 08/27/20-08/29/20 Diagnosis: COPD exacerbation, history of alcohol, tobacco and cocaine abuse. DC Disposition: Home Current Admission Diagnosis: COPD exacerbation Pt presented with shortness of breath, history of drug abuse and smoking. CHARMAINE VALENCIA intro role of CM to patient and attempted to discuss discharge planning. Patient is easily agitated and irritable. she focused on insisting she needs oxygen on discharge. CHARMAINE VALENCIA attempted to refocus on assessment and how patient was coping @ home. She states she has oxygen tanks up in [place] but has not used them for years. CHARMAINE VALENCIA let her know if oxygen testing showed she needed home oxygen, local company could be used. Pt is agreeable to [employer], but stated it has to be covered under my insurance or forget it. Pt then talked about a nebulizer physician ordered but because it had an $89 copay she did not take it. She states she was given one from a friend and the lady from [employer] got me a mask and the tubing. When asked about the medications for her nebulizer, the patient became agitated and states Nevermind that, I need oxygen. CHARMAINE VALENCIA concluded visit. Patient plans to return home to her apartment on discharge. DC PLAN: home. oxygen testing prior to discharge and [facility] if oxygen is needed. Oh KRISHNAMURTHY RN AC
[2020-09-13] MEDS: traZODone 50 MG Tablet 100 MG PO (21:08)
[2020-09-13] MEDS: Gabapentin 300 MG Capsule PO (21:08)
[2020-09-14] VITALS (11 sets, daily range): BP systolic 137–155; BP diastolic 53–92; PULSE 101–133; RESP 18–20; TEMP 36.4–36.9; O2SAT 90–96
[2020-09-14] MEDS: 0.9% Normal Saline 1,000 ML 75 ML IV ×2 (04:02→17:02)
[2020-09-14] MEDS: busPIRone 5 MG Tablet 10 MG PO ×3 (05:29→22:16)
[2020-09-14] MEDS: Ipratropium/Albuterol Sulfate 3 ML AMPUL.NEB INHALATION ×5 (07:20→23:40)
[2020-09-14] MEDS: Aspirin 81 MG TAB.CHEW PO (09:39)
[2020-09-14] MEDS: Lisinopril 10 MG Tablet PO (09:40)
[2020-09-14] MEDS: Cilostazol 50 MG Tablet 100 MG PO ×2 (09:40→22:16)
[2020-09-14] MEDS: Oxybutynin 5 MG Tablet PO (09:41)
[2020-09-14] MEDS: Meloxicam 7.5 MG Tablet PO (09:41)
[2020-09-14] MEDS: Enoxaparin 40 MG/0.4 ML Syringe SC (09:41)
[2020-09-14] MEDS: 0.9% Saline Lock 10 ML Syringe IV (14:02)
--- NOTE | 2020-09-14 15:24 | PCM.PN.HOSP ---
Patient Problems: Active and Suspected Problems COPD (chronic obstructive pulmonary disease) (Acute) COPD exacerbation (Acute) Reason for Visit: Follow-up for chronic hypoxic respiratory failure and COPD exacerbation Objective: Patient is still short of breath and wheezing. Patient is restless, anxious and has bipolar disorder. 65-year-old female with history of substance use, crack cocaine and smoking cigarette, chronic hypoxic respiratory failure on home oxygen, noncompliant was admitted with shortness of breath, cough along with greenish and blood-tinged sputum consistent with COPD exacerbation. Patient complaining of chronic numbness and tingling of left lower extremities and states she has peripheral vascular disease. Physical exam General: Alert, Oriented x3, Cooperative HEENT: Atraumatic, PERRLA, EOMI, Normocephalic Oral: No Gingival or Mucosal Lesions/ Ulcerations Neck: Supple, No JVD, Negative Carotid Bruits Lungs: Air entry diminished diffusely in all lung stevens. Bilateral coarse rhonchi and wheezing present. Pulse ox 93% on room air Cardiovascular: S1-S2 regular, no murmur gallop or rub. 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 Abdomen: Bowel Sounds Present, Soft, Non Tender, Non-Distended : No renal angle tenderness. No suprapubic tenderness. Extremities: No edema, Capillary Refill Less than 3 Seconds Skin: No rashes, No breakdown Musculoskeletal: No Tenderness to Palpation of Joints or Extremities Neurological: Cranial nerves II-XII grossly intact, Deep Tendon Reflexes 2+/4 and Symmetrical, Neuro grossly intact Psych/Mental Status: Anxious, restless and has flight of ideas. Vitals/I&O's: Vital Signs Temp Pulse Resp BP Pulse Ox 98.5 F 129 H 18 137/53 H 93 09/14/20 13:48 09/14/20 13:48 09/14/20 13:54 09/14/20 13:48 09/14/20 13:48 Oxygen Flow Rate (L/min) 2 Oxygen Delivery Method Room Air Weight: 160 lb 4.417 oz Body Mass Index (BMI) 25.8 Intake and Output for Last 24 Hours 09/12/20 09/13/20 09/14/20 23:59 23:59 23:59 Intake Total 500 / 500 2450.00 / 2450.00 1887.50 / 1887.50 Balance 500 / 500 2450.00 / 2450.00 1887.50 / 1887.50 Microbiology Past 72 Hours 09/13/20 08:05 Sputum, Expectorated/Coughed Gram Stain - Final 09/13/20 08:05 Sputum, Expectorated/Coughed Respiratory Culture - Preliminary Appears to be normal respiratory tanesha. Further studies to follow. 09/12/20 20:55 Urine, Clean Catch Urine Culture - Final Mixed Gram Positive Organisms 09/12/20 23:45 Mucosa - Nasopharyngeal SARS-CoV-2 Antigen (Rapid) - Final Current Medications Acetaminophen (Acetaminophen 325 Mg Tablet) 650 mg PO Q6H PRN PRN PRN Reason: Pain 1-10 or Fever Last Admin: 09/13/20 21:56 Dose: 650 mg Documented by: Albuterol/Ipratropium (Ipratropium/Albuterol Sulfate 3 Ml Ampul.Neb) 3 ml INHALATION Q4H.RT [facility] Last Admin: 09/14/20 15:08 Dose: 3 ml Documented by: Aspirin (Aspirin 81 Mg Tab.Chew) 81 mg PO DAILY [facility] Last Admin: 09/14/20 09:39 Dose: 81 mg Documented by: Buspirone HCl (Buspirone 5 Mg Tablet) 10 mg PO TID [facility] Last Admin: 09/14/20 14:02 Dose: 10 mg Documented by: Cilostazol (Cilostazol 50 Mg Tablet) 100 mg PO BID [facility] Last Admin: 09/14/20 09:40 Dose: 100 mg Documented by: Enoxaparin Sodium (Enoxaparin 40 Mg/0.4 Ml Syringe) 40 mg SC DAILY [facility] Last Admin: 09/14/20 09:41 Dose: 40 mg Documented by: Gabapentin (Gabapentin 300 Mg Capsule) 300 mg PO QHS [facility] Last Admin: 09/13/20 21:08 Dose: 300 mg Documented by: Azithromycin 500 mg/ Dextrose 255 mls @ 250 mls/hr IV Q24 [facility] Stop: 09/15/20 11:02 Last Infusion: 09/14/20 10:41 Dose: Infused Documented by: Sodium Chloride () 1,000 mls @ 75 mls/hr IV .[id number] [facility] Last Infusion: 09/14/20 10:41 Dose: 75 mls/hr Documented by: Lisinopril (Lisinopril 10 Mg Tablet) 10 mg PO DAILY [facility] Last Admin: 09/14/20 09:40 Dose: 10 mg Documented by: Meloxicam (Meloxicam 7.5 Mg Tablet) 7.5 mg PO DAILY [facility] Last Admin: 09/14/20 09:41 Dose: 7.5 mg Documented by: Methylprednisolone (Methylprednisolone 40 Mg/Ml Vial) 40 mg IV Q8 [facility] Last Admin: 09/14/20 14:02 Dose: 40 mg Documented by: Oxybutynin Chloride (Oxybutynin 5 Mg Tablet) 5 mg PO DAILY [facility] Last Admin: 09/14/20 09:41 Dose: 5 mg Documented by: Sodium Chloride (0.9% Saline Lock 10 Ml Syringe) 10 - 40 ml IV UD PRN PRN Reason: SALINE FLUSH Last Admin: 09/14/20 14:02 Dose: 10 ml Documented by: Trazodone HCl (Trazodone 50 Mg Tablet) 100 mg PO QHS [facility] Last Admin: 09/13/20 21:08 Dose: 100 mg Documented by: STROKE Vital Signs/Narrative: Vital Signs Temp Pulse Resp BP Pulse Ox 09/14/20 13:54 18 09/14/20 13:48 98.5 F 129 H 18 137/53 H 93 Medical Necessity - Tobacco Use Smoking Status: Current every day smoker Assessment/Plan All Active Problems COPD (chronic obstructive pulmonary disease) (Acute) COPD exacerbation (Acute) 65-year-old female was admitted with shortness of breath, wheezing consistent with COPD exacerbation. Patient was probably prescribed oxygen in the past but not at compliant. 1. Acute COPD exacerbation?Place patient in general medical floor, oxygen support per routine, Solu-Medrol 40 mg IV every 8 hours, DuoNeb INH every 4 hours as needed, consult case management for discharge planning and home oxygen therapy. 09/14: Discussed with the case hardener and social work lecturer. Patient has not followed up gastroenterologist and had PFT. Continue incentive spirometry and PEP. 2. Tobacco abuse?patient states that she has quit this week however cessation was encouraged further. Consult 180. 3. Anxiety and depression primarily bipolar disorder continue home medications 4. DVT prophylaxis?low molecular weight heparin 5. History of cocaine and alcohol abuse?patient is status post rehab but will observe and monitor for symptoms of withdrawal Clinical Impression(s) from Imaging Studies Chest CTA 09/12/20 20:16 IMPRESSION: No pulmonary embolism, aortic aneurysm, or aortic dissection. Pulmonary emphysema. Severe respiratory motion when imaging the lower lungs. Although no pulmonary embolism is perceived, the negative predictive value of this study to exclude pulmonary embolism within the lower lungs is nondiagnostic due to registration artifact from the respiratory motion. Individualized dose optimization techniques were used for this CT. Chest X-Ray 09/12/20 21:08 IMPRESSION: No acute cardiopulmonary disease. Pulmonary hyperexpansion suggestive of obstructive lung disease. At the time of dictation of the chest x-ray, a chest CT is available. Please refer to that dictation for any additional potential findings.. Inpatient E&M: 12862 Subs Hosp L2
[2020-09-14] MEDS: Gabapentin 300 MG Capsule PO (22:16)
[2020-09-14] MEDS: traZODone 50 MG Tablet 100 MG PO (22:16)
[2020-09-15] VITALS (7 sets, daily range): BP systolic 151–166; BP diastolic 84–102; PULSE 100–146; RESP 18–24; TEMP 36.6–37.1; O2SAT 90–97
[2020-09-15] MEDS: busPIRone 5 MG Tablet 10 MG PO (06:16)
[2020-09-15] MEDS: 0.9% Normal Saline 1,000 ML 75 ML IV (06:20)
[2020-09-15] MEDS: Ipratropium/Albuterol Sulfate 3 ML AMPUL.NEB INHALATION ×2 (07:23→11:20)
--- NOTE | 2020-09-15 08:21 | DCINST_ITS ---
- Discharge Diagnoses Current Active Problems: Current Active and Chronic Problems Cocaine abuse (Chronic) Alcohol abuse (Chronic) Tobacco abuse (Chronic) COPD (chronic obstructive pulmonary disease) (Acute) Depression (Chronic) PAD (peripheral artery disease) (Chronic) COPD exacerbation (Acute) You will use the following diet at home:: Cardiac Your food should be the consistency of: Regular Your liquids should be the consistency of: Regular/Thin Discharge Activity: May Not Drive Weight Bearing Status: Weight bearing as tolerated Call your doctor if you observe: Fever of 101 or Higher, Coldness, Increased Pain, Change in Color, Inability to urinate, Inability to have a bowel movement, Using more than one pad per hour, Shortness of breath, Dizziness, Fainting spells, Chest pain, Prolonged hiccoughing, Increased palpitations (irregular heartbeat), Calf discomfort, Uncontrolled pain Additional Instructions: Patient follows [facility] subspecialist. Advised to follow-up grounds supervisor, referred by PCP in 2 to 3 weeks for formal PFT evaluation, 6- minute walk test. It seems patient was discharged on oxygen but she is noncompliant and mildly following grounds supervisor. She does not remember or cannot tell me know the name of grounds supervisor. Allergies/Adverse Reactions: Allergies No Known Allergies Allergy (Verified 09/12/20 19:56) Medications to take at Discharge Albuterol Sulfate [Ventolin Hfa] 2 puff IH Q4H PRN PRN 08/26/20 Aspirin [Aspirin, Baby] 81 mg PO DAILY 08/26/20 Cilostazol 100 mg PO BID 08/26/20 Lisinopril [Zestril] 10 mg PO DAILY 08/26/20 Oxybutynin Chloride [Oxybutynin Chloride ER] 5 mg PO DAILY 08/26/20 Tizanidine HCl [Zanaflex] 2 mg PO Q8 PRN 08/26/20 Acetaminophen [Tylenol Tablet] 650 mg PO Q6H PRN PRN tab 08/29/20 Meloxicam [Mobic] 7.5 mg PO DAILY #14 tab 08/29/20 Gabapentin [Neurontin] 300 mg PO QHS 09/12/20 traZODone [Desyrel] 50 - 100 mg PO QHS 09/13/20 Guaifenesin [Mucinex] 1,200 mg PO BID #14 tab.er.12h 09/15/20 Prednisone 10 mg PO DAILY #30 tab 09/15/20 The following prescriptions were given: Guaifenesin [Mucinex] 1,200 mg PO BID #14 tab.er.12h Transmission Status: Pending to [facility]30 Prednisone 10 mg PO DAILY #30 tab Transmission Status: Pending to [facility] Primary Care Physician: Leonie Castillo MD [Primary Care Provider] - Please follow up with your Primary Care Physician in: in 1-2 week Test Results: Test results from this visit will be discussed in further detail at your follow- up appointment, if applicable. Please Follow Up With: Zeyad Espinoza DO When: in 3-4 weeks.
--- NOTE | 2020-09-15 08:24 | PCM.DC.SUM ---
Discharge Date and Diagnosis - Problem List Patient Problems: Active and Suspected Problems COPD (chronic obstructive pulmonary disease) (Acute) COPD exacerbation (Acute) Date of Admission: 09/13/20 Date of Discharge: 09/15/20 - Primary Discharge Diagnosis Acute Problems: Active Problems COPD (chronic obstructive pulmonary disease) (Acute) COPD exacerbation (Acute) - Secondary Discharge Diagnosis Chronic Problems: Chronic Problems Cocaine abuse (Chronic) Alcohol abuse (Chronic) History of DVT (deep vein thrombosis) (Chronic) Tobacco abuse (Chronic) Depression (Chronic) PAD (peripheral artery disease) (Chronic) Hospital Course and Treatment Operations: None Summary of Care Provided: The patient is a 65-year-old female was admitted with shortness of breath, wheezing consistent with COPD exacerbation. Patient was probably prescribed oxygen in the past but not at compliant. 1. Acute COPD exacerbation secondary to left lower lobe Streptococcus pneumoniae pneumonia?the patient was admitted on general medical floor, oxygen support per routine, Solu-Medrol 40 mg IV every 8 hours, DuoNeb INH every 4 hours as needed. CTA chest shows no pulmonary embolism but a small left posterior lateral airspace consolidation suggestive of pneumonia. Sputum culture further showed Streptococcus pneumoniae. Patient is discharged home cefdinir 300 mg every 12 total of 7 days of antibiotic. Patient had Zithromax. Discussed with Dr. Espinoza. Patient is to follow-up in pulmonary clinic and has formal PFT and sleep study. Discharged on tapering dose of prednisone. 2. Tobacco abuse?patient states that she has quit this week however cessation was encouraged further. 180 was consulted. On aspirin and cilostazol. She also follows pain management. 3. Peripheral arterial disease mainly in the left lower leg: Patient follows vascular surgeon as an outpatient. 4. Anxiety and depression primarily bipolar disorder continue home medications 5. DVT prophylaxis?low molecular weight heparin History of cocaine and alcohol abuse?patient is status post rehab but will observe and monitor for symptoms of withdrawal Discharge medication reconciliation done. Discharge follow-up instructions completed. Discharge process discussed with the patient and all questions were answered to patient's satisfaction. Total time spent, exact 35 minutes on discharge meds reconciliation, examination, coordination of care with nurses and ancillary staff, review of imaging and blood test and discussion with the patient on follow-up instructions Clinical Impression(s) from Imaging Studies Chest CTA 09/12/20 20:16 IMPRESSION: No pulmonary embolism, aortic aneurysm, or aortic dissection. Pulmonary emphysema. Severe respiratory motion when imaging the lower lungs. Although no pulmonary embolism is perceived, the negative predictive value of this study to exclude pulmonary embolism within the lower lungs is nondiagnostic due to registration artifact from the respiratory motion. Individualized dose optimization techniques were used for this CT. Chest X-Ray 09/12/20 21:08 IMPRESSION: No acute cardiopulmonary disease. Pulmonary hyperexpansion suggestive of obstructive lung disease. At the time of dictation of the chest x-ray, a chest CT is available. Please refer to that dictation for any additional potential findings.. at 2125 Reported and signed by: Washington Perdomo MD Electronically Signed: Washingotn Perdomo MD at 21:24 EST Tel , Service support , Patient Problems: Active and Suspected Problems COPD (chronic obstructive pulmonary disease) (Acute) COPD exacerbation (Acute) Objective: She did not had any fever or chills. Heart rate is elevated mainly related to anxiety. Pulse ox 96% on room air, on ambulation 90% on room air. Physical exam General: Alert, Oriented x3, Cooperative HEENT: Atraumatic, PERRLA, EOMI, Normocephalic Oral: No Gingival or Mucosal Lesions/ Ulcerations Neck: Supple, No JVD, Negative Carotid Bruits Lungs: Air entry diminished diffusely in all lung stevens. Lungs are clear. Pulse ox 96% on room air. Cardiovascular: S1-S2 regular, no murmur gallop or rub. Peripheral pulses diminished mainly in left lower leg, [employer] and dorsalis pedis more than right leg. Abdomen: Bowel Sounds Present, Soft, Non Tender, Non-Distended : No renal angle tenderness. No suprapubic tenderness. Extremities: No edema, Capillary Refill Less than 3 Seconds Skin: No rashes, No breakdown Musculoskeletal: No Tenderness to Palpation of Joints or Extremities Neurological: Cranial nerves II-XII grossly intact, Deep Tendon Reflexes 2+/4 and Symmetrical, Neuro grossly intact Psych/Mental Status: Anxious, restless and has flight of ideas. - Physical Exam Vitals/I&O's: Vital Signs Temp Pulse Resp BP Pulse Ox 97.9 F 117 H 20 H 151/84 H 97 09/15/20 03:15 09/15/20 03:15 09/15/20 03:15 09/15/20 03:15 09/15/20 03:15 Oxygen Flow Rate (L/min) 2 Oxygen Delivery Method Nasal Cannula Weight: 160 lb 4.417 oz Body Mass Index (BMI) 25.8 Intake and Output for Last 24 Hours 09/13/20 09/14/20 09/15/20 23:59 23:59 23:59 Intake Total 2450.00 / 2450.00 2363.75 / 2763.75 1897.5 / 1897.5 Balance 2450.00 / 2450.00 2363.75 / 2763.75 1897.5 / 1897.5 Microbiology Past 72 Hours 09/12/20 20:49 Blood Culture (Wb) - Left Hand Blood Culture - Preliminary No growth in 48 hours. 09/12/20 20:45 Blood Culture (Wb) - Left Wrist Blood Culture - Preliminary No growth in 48 hours. 09/13/20 08:05 Sputum, Expectorated/Coughed Gram Stain - Final 09/13/20 08:05 Sputum, Expectorated/Coughed Respiratory Culture - Preliminary Appears to be normal respiratory tanesha. Further studies to follow. 09/12/20 20:55 Urine, Clean Catch Urine Culture - Final Mixed Gram Positive Organisms 09/12/20 23:45 Mucosa - Nasopharyngeal SARS-CoV-2 Antigen (Rapid) - Final Current Medications Acetaminophen (Acetaminophen 325 Mg Tablet) 650 mg PO Q6H PRN PRN PRN Reason: Pain 1-10 or Fever Last Admin: 09/13/20 21:56 Dose: 650 mg Documented by: Albuterol/Ipratropium (Ipratropium/Albuterol Sulfate 3 Ml Ampul.Neb) 3 ml INHALATION Q4H.RT [facility] Last Admin: 09/15/20 07:23 Dose: 3 ml Documented by: Aspirin (Aspirin 81 Mg Tab.Chew) 81 mg PO DAILY [facility] Last Admin: 09/14/20 09:39 Dose: 81 mg Documented by: Buspirone HCl (Buspirone 5 Mg Tablet) 10 mg PO TID [facility] Last Admin: 09/15/20 06:16 Dose: 10 mg Documented by: Cilostazol (Cilostazol 50 Mg Tablet) 100 mg PO BID [facility] Last Admin: 09/14/20 22:16 Dose: 100 mg Documented by: Enoxaparin Sodium (Enoxaparin 40 Mg/0.4 Ml Syringe) 40 mg SC DAILY [facility] Last Admin: 09/14/20 09:41 Dose: 40 mg Documented by: Gabapentin (Gabapentin 300 Mg Capsule) 300 mg PO QHS [facility] Last Admin: 09/14/20 22:16 Dose: 300 mg Documented by: Azithromycin 500 mg/ Dextrose 255 mls @ 250 mls/hr IV Q24 [facility] Stop: 09/15/20 11:02 Last Infusion: 09/14/20 10:41 Dose: Infused Documented by: Sodium Chloride () 1,000 mls @ 75 mls/hr IV .[id number] [facility] Last Admin: 09/15/20 06:20 Dose: 75 mls/hr Documented by: Lisinopril (Lisinopril 10 Mg Tablet) 10 mg PO DAILY [facility] Last Admin: 09/14/20 09:40 Dose: 10 mg Documented by: Meloxicam (Meloxicam 7.5 Mg Tablet) 7.5 mg PO DAILY [facility] Last Admin: 09/14/20 09:41 Dose: 7.5 mg Documented by: Methylprednisolone (Methylprednisolone 40 Mg/Ml Vial) 40 mg IV Q8 [facility] Last Admin: 09/15/20 06:16 Dose: 40 mg Documented by: Oxybutynin Chloride (Oxybutynin 5 Mg Tablet) 5 mg PO DAILY [facility] Last Admin: 09/14/20 09:41 Dose: 5 mg Documented by: Sodium Chloride (0.9% Saline Lock 10 Ml Syringe) 10 - 40 ml IV UD PRN PRN Reason: SALINE FLUSH Last Admin: 09/14/20 14:02 Dose: 10 ml Documented by: Trazodone HCl (Trazodone 50 Mg Tablet) 100 mg PO QHS [facility] Last Admin: 09/14/20 22:16 Dose: 100 mg Documented by: Discharge Activity: May Not Drive Weight Bearing Status: Weight bearing as tolerated Call your doctor if you observe: Fever of 101 or Higher, Coldness, Increased Pain, Change in Color, Inability to urinate, Inability to have a bowel movement, Using more than one pad per hour, Shortness of breath, Dizziness, Fainting spells, Chest pain, Prolonged hiccoughing, Increased palpitations (irregular heartbeat), Calf discomfort, Uncontrolled pain Home Medications: Medications to take at Discharge Albuterol Sulfate [Ventolin Hfa] 2 puff IH Q4H PRN PRN 08/26/20 Aspirin [Aspirin, Baby] 81 mg PO DAILY 08/26/20 Cilostazol 100 mg PO BID 08/26/20 Lisinopril [Zestril] 10 mg PO DAILY 08/26/20 Oxybutynin Chloride [Oxybutynin Chloride ER] 5 mg PO DAILY 08/26/20 Tizanidine HCl [Zanaflex] 2 mg PO Q8 PRN 08/26/20 Acetaminophen [Tylenol Tablet] 650 mg PO Q6H PRN PRN tab 08/29/20 Meloxicam [Mobic] 7.5 mg PO DAILY #14 tab 08/29/20 Gabapentin [Neurontin] 300 mg PO QHS 09/12/20 traZODone [Desyrel] 50 - 100 mg PO QHS 09/13/20 Cefdinir 300 mg PO BID #14 cap 09/15/20 Guaifenesin [Mucinex] 1,200 mg PO BID #14 tab.er.12h 09/15/20 Prednisone 10 mg PO DAILY #30 tab 09/15/20 Following Prescriptions Were Given to Patient: Cefdinir 300 mg PO BID #14 cap Transmission Status: Pending to [facility] #30 Guaifenesin [Mucinex] 1,200 mg PO BID #14 tab.er.12h Transmission Status: Received by [facility] #30 Prednisone 10 mg PO DAILY #30 tab Transmission Status: Received by [facility] #30 Primary Care Physician: Leonie Castillo MD [Primary Care Provider] - Please follow up with your Primary Care Physician in: in 1-2 week Please Follow Up With: Zeyad Espinoza DO When: in 3-4 weeks. Medical Necessity - Tobacco Use Smoking Status: Current every day smoker Meaningful Use Info Meaningful Use Diagnoses (Choose all that apply): None applicable Inpatient E&M: [id number] [facility]
[2020-09-15] MEDS: Aspirin 81 MG TAB.CHEW PO (10:28)
[2020-09-15] MEDS: Enoxaparin 40 MG/0.4 ML Syringe SC (10:29)
[2020-09-15] MEDS: Cilostazol 50 MG Tablet 100 MG PO (10:29)
[2020-09-15] MEDS: Lisinopril 10 MG Tablet PO (10:29)
[2020-09-15] MEDS: Oxybutynin 5 MG Tablet PO (10:29)
[2020-09-15] MEDS: Meloxicam 7.5 MG Tablet PO (10:29)
[2020-09-15] MEDS: Acetaminophen 325 MG Tablet 650 MG PO (11:22)
--- NOTE | 2020-09-15 13:12 | CASEMGMT ---
RN CM updated by nursing that patient does not qualify for home oxygen at discharge.
--- NOTE | 2020-09-16 14:00 | CASEMGMT ---
CHARMAINE VALENCIA Discharge Follow-up Phone Call: RAE: 12 Strata: 3 Call Date: 09/16/20 Discharge Date: 09/15/20 Time of Call: 1400 Duration: 3 min Admitting Diagnosis: SOB CHARMAINE VALENCIA completed follow-up phone call after recent hospitalization. Patient thankful for call. Patient inquired why she wasn't setup with home oxygen. CHARMAINE VALENCIA explained that patient was tested and did not qualify so [facility] will not cover home oxygen. CHARMAINE VALENCIA instructed patient to attend follow-up appt with PCP and pulmonology. Patient states she lives in [place] and will take care of it. Patient hung up phone with CM before finishing questions.
== END 2020-09-15 14:01 | disposition home or self-care (01) | DRG 190 ==
LOC: ED 20:32 → MS3 09-13 01:04
PROVIDERS: Admitting Provider Family Medicine; Emergency Provider Student in an Organized Health Care Education/Training Program; PCP Internal Medicine; Visit Provider Internal Medicine
DX: J44.0 Chronic obstructive pulmonary disease with (acute) lower respiratory infection (principal); J13 Pneumonia due to Streptococcus pneumoniae; J96.11 Chronic respiratory failure with hypoxia; J44.1 Chronic obstructive pulmonary disease with (acute) exacerbation; F17.200 Nicotine dependence, unspecified, uncomplicated; F31.9 Bipolar disorder, unspecified; F41.9 Anxiety disorder, unspecified; I73.9 Peripheral vascular disease, unspecified; Z86.718 Personal history of other venous thrombosis and embolism; F10.10 Alcohol abuse, uncomplicated; F14.10 Cocaine abuse, uncomplicated; Z79.82 Long term (current) use of aspirin; Z79.899 Other long term (current) drug therapy; Z99.81 Dependence on supplemental oxygen
CPT/HCPCS: 36415; 71045; 71275; 80048; 80053; 81001; 83605; 84145; 84484; 85025; 85610; 85730; 87040; 87070; 87077; 87086; 87088; 87186; 87205; 87426; 93005; 94640; 94667; 99251; 99285; J7030; J7040; Q9967; A4216; G0463

== ENCOUNTER → 2020-10-21 06:15 | Outpatient (CLI) | payer MEDICARE, MEDICAID, SELFPAY ==
[2020-09-13 01:34] VITALS: BMI 25.8
--- NOTE | 2020-10-21 14:58 | STRESSREP ---
Stress Test Report Pharmacologic myocardial perfusion stress test. 65-year-old lady with a history of chest pain. Stress protocol: Resting EKG demonstrates normal sinus rhythm with a rate of 82 bpm T wave inversions noted in leads II, III and aVF V4 through V6. 0.4 mg of regadenoson was infused per usual protocol followed by rapid intravenous saline flush injection continuous EKG monitoring was performed. The maximum heart rate attained was 114 bpm which was 73% of max impacted heart rate the maximum workload was 1 metabolic equivalent. At rest there were no ST or T wave changes noted to suggest ischemia at peak infusion nonspecific ST-T wave changes were noted with no meet the criteria for ischemia. No clinical angina was noted. The test was terminated due to the end of the protocol. The resting blood pressure was 148/80 with a final blood pressure of 154/88 mmHg. Myocardial perfusion protocol. 11.9 mCi of technetium 99m sestamibi was injected at rest. 0.4 mg of regadenoson was infused per usual protocol. At peak infusion 33.8 mCi of technetium 99m sestamibi was injected stress images were obtained stress and rest images were reconstructed and compared in the short axis vertical long horizontal long axis. Gated images were also obtained Perfusion SPECT analysis: Review of the stress images demonstrate normal uptake of tracer noted in all areas of the myocardium the resting images similar demonstrate normal uptake of tracer noted in all areas of the myocardium. No areas of reversibility are noted suggest ischemia no previous infarct is noted. Gated SPECT analysis: The gated ejection fraction is 80%. Conclusion: Normal pharmacologic myocardial perfusion stress test. Preserved ejection fraction.
== END ==
PROVIDERS: PCP Internal Medicine; Referring Provider Internal Medicine Interventional Cardiology; Visit Provider Internal Medicine Interventional Cardiology
DX: Z01.810 Encounter for preprocedural cardiovascular examination (principal); I73.9 Peripheral vascular disease, unspecified; R06.02 Shortness of breath
CPT/HCPCS: 78452; 93017; A9500; A4216; J2785

== ENCOUNTER 2021-02-07 20:45 | Inpatient (IN) | payer MEDICARE, MEDICAID, SELFPAY ==
[2021-02-07 20:45] VITALS: BP 182/86; PULSE 128; RESP 28; TEMP 37.5; BMI 27.4
--- NOTE | 2021-02-07 21:08 | EKG12_ITS ---
Test Reason : COUGH Blood Pressure : / mmHG Vent. Rate : 118 BPM Atrial Rate : 118 BPM P-R Int : 132 ms QRS Dur : 076 ms QT Int : 296 ms P-R-T Axes : 078 080 072 degrees QTc Int : 414 ms Sinus tachycardia Otherwise normal ECG Confirmed by ANN CORTÉS, SONIDO ([id number]), assignment editor ANNABELLE HWANG ([id number]) on 02/09/2021 1:29:19 PM Referred By: Confirmed By:SONIDO JUAREZ MD
[2021-02-07] MEDS: Ipratropium/Albuterol Sulfate 3 ML AMPUL.NEB INHALATION (21:23)
[2021-02-07] MEDS: Albuterol 2.5 MG/3 ML VIAL.NEB. INHALATION ×3 (21:23→22:08)
[2021-02-07 21:27] VITALS: PULSE 120; RESP 28
[2021-02-07 21:47] VITALS: BP 139/70; PULSE 122; PULSE 125; RESP 25; TEMP 37.5; O2SAT 96; O2SAT 97
[2021-02-07 21:49] VITALS: O2SAT 96
--- NOTE | 2021-02-07 21:49 | RAD_ITS ---
STUDY: X-RAY CHEST REASON FOR EXAM: Female, 66 years old. sob TECHNIQUE: Frontal view COMPARISON: 09/12/2020 FINDINGS: The lungs are expanded. Possible mild right infrahilar infiltrate. Normal size heart. Normal mediastinum and tea. Normal visualized pulmonary arteries. Calcified aortic arch and descending thoracic aorta. Degenerative changes of the thoracic spine. Normal visualized ribs, clavicles, and shoulders. There is no demonstrated abnormality of the visualized soft tissue structures of the upper abdomen. RAD/Chest 1 View (Portable) IMPRESSION: Possible mild right infrahilar infiltrate. Electronically Signed: Kyle Whalen DO at 22:37 EDT Tel [phone], Service support ,
[2021-02-07 22:00] VITALS: PULSE 126; RESP 25; O2SAT 91
[2021-02-07 22:31] LABS: Absolute Lymphocyte Count 3.94 X10^3/uL (0.83-4.51); Absolute Neutrophil Count 7.7 X10^3/uL (2.0-7.7); Basophil# 0.04 X10^3/uL; Basophil% 0.3 % (0-1); Eosinophil# 0.24 X10^3/uL; Eosinophils% 1.9 % (0-5); Hematocrit 47.1 % (37-47); Hemoglobin 15.2 g/dL (12.0-15.0); Lymphocyte # 3.94 X10^3/ul (0.83-4.51); Lymphocyte % 31.5 % (19-41); Mean Corp Hgb Conc 32.3 g/dL (32-36); Mean Corpuscular Hgb 29.5 pg (27.0-32.0); Mean Corpuscular Volume 91.3 fL (81-99); Mean Platelet Vol. 10.3 fl (6.2-12.0); Monocyte# 0.54 X10^3/uL; Monocyte% 4.3 % (0-10); NRBC Flagged by Analyzer 0 % (0-5); Neutrophil # 7.73 X10^3/uL (2.7-7.7); Neutrophil % 61.8 % (47-70); Platelet Count 239 K/mm3 (150-450); RBC Distribution Width CV 15.5 % (11.6-14.6); RBC Distribution Width SD 50.1 fl (35.1-43.9); Red Blood Count 5.16 M/mm3 (4.2-5.4); White Blood Count 12.5 K/mm3 (4.4-11.0)
[2021-02-07 23:08] LABS: AST(SGOT) 27 U/L (15-37); Alanine Aminotransfer ALT/SGPT 26 U/L (13-56); Albumin, Serum 3.6 g/dL (3.2-5.0); Alkaline Phosphatase 90 U/L (45-117); Anion Gap 5 (5-15); BUN 16 mg/dL (7-18); BUN/Creat Ratio 13.8 RATIO (10-20); Calcium,Total 9.1 mg/dL (8.5-10.1); Chloride 110 mmol/L (98-107); Creatinine, Serum 1.16 mg/dL (0.55-1.02); EST Glomerular Filtration Rate 50 mL/min (>60); Est Glom Filt Rate - Afr Amer 60 mL/min (>60); Estimated Creatinine Clearance 45.26 ml/min; Globulin 3.6 g/dL (2.2-4.2); Glucose 94 mg/dL (74-106); Potassium 4.5 mmol/L (3.5-5.1); Protein, Total 7.2 g/dL (6.4-8.2); Sodium Level 140 mmol/L (136-145)
[2021-02-07 23:18] VITALS: BP 130/67; PULSE 118; RESP 18; O2SAT 92
[2021-02-07] MEDS: Morphine 4 MG/ML Syringe IV (23:23)
[2021-02-07] MEDS: Ondansetron 4 MG/2 ML Vial IV (23:23)
[2021-02-08] VITALS (9 sets, daily range): BP systolic 111–128; BP diastolic 52–75; PULSE 79–108; RESP 18–24; TEMP 36.6–36.7; O2SAT 93–100; BMI 26.7
--- NOTE | 2021-02-08 00:24 | EX.ED.DYSGE1 ---
HPI History of Present Illness Chief Complaint: Cough Informant: patient Narrative Narrative: 66-year-old female presenting with shortness of breath, cough, chest pain. She states this has been ongoing over the past week and progressively worsening. She states her shortness of breath was severe today. She has had low-grade fevers. Denies exposure to Covid. Her chest pain is worsened with coughing. Prior similar symptoms: Yes Recent Illness/Hospitalization: No PFSH [facility] Medical History (Updated 02/08/21 @ 00:[address] Jerica Urena MD) DVT (deep venous thrombosis) H/O cocaine abuse H/O ETOH abuse Hepatitis C HTN (hypertension) Lumbar herniated disc Pinched nerve in neck Stenosis of artery of left lower extremity Home Medications albuterol sulfate 2 puff IH Q4H PRN PRN 08/26/20 [History Last Taken 08/26/20] aspirin 81 mg PO DAILY 08/26/20 [History Last Taken 09/12/20] cilostazol 100 mg PO BID 08/26/20 [History Last Taken 09/12/20] lisinopril 10 mg PO DAILY 08/26/20 [History Last Taken 09/12/20] oxybutynin chloride 5 mg PO DAILY 08/26/20 [History Last Taken 09/12/20] tizanidine 2 mg PO Q8 PRN 08/26/20 [History Last Taken 08/26/20] acetaminophen 650 mg PO Q6H PRN PRN tab 08/29/20 [Rx Last Taken Unknown] meloxicam 7.5 mg PO DAILY #14 tab 08/29/20 [Rx Last Taken 09/12/20] gabapentin 300 mg PO QHS 09/12/20 [History Last Taken 09/11/20] trazodone 50 - 100 mg PO QHS 09/13/20 [History Last Taken Unknown] guaifenesin 1,200 mg PO BID #14 tab.er.12h 09/15/20 [Rx Last Taken Unknown] prednisone 10 mg PO DAILY #30 tab 09/15/20 [Rx Last Taken Unknown] atorvastatin 40 mg PO DAILY 02/07/21 [History Last Taken Unknown] Allergy/AdvReac Type Severity Reaction Status Date / Time No Known Allergies Allergy Verified 09/12/20 19:56 Social History Smoking Status: Former smoker ROS [facility] ED Constitutional Constitutional ED: Reports chills and fever(s) Eyes Eyes: Denies change in vision ENT ENT ED: Denies rhinorrhea or sore throat Cardiovascular Cardiovascular: Reports chest pain; Denies palpitations Respiratory/Chest Respiratory/Chest: Reports cough, dyspnea and sputum Gastrointestinal Gastrointestinal: Denies abdominal pain, diarrhea, nausea or vomiting Genitourinary Genitourinary ED: Denies dysuria Musculoskeletal Musculoskeletal: Reports myalgias Integumentary Denies rash Neurologic Neurologic: Denies headache(s) Psychiatric Psychiatric: Denies suicidal thoughts EXAM Physical Exam Const Vital Signs: 02/07/21 20:45 02/07/21 21:27 02/07/21 21:47 Temperature 99.5 F H 99.5 F H Temperature Source Temporal Temporal Pulse Rate 128 H 120 H 125 H Respiratory Rate 28 H 28 H 25 H Respiratory Effort Respiratory Depth Respiratory Pattern Blood Pressure 182/86 H 139/70 H Blood Pressure Mean 118 93 Pulse Ox 97 Oxygen Delivery Method Simple Mask Oxygen Flow Rate (L/min) 10 Fraction of Inspired Oxygen (FIO2) 10 02/07/21 21:49 02/07/21 22:00 02/07/21 23:18 Temperature Temperature Source Pulse Rate 126 H 118 H Respiratory Rate 25 H 18 Respiratory Effort Short of Breath Respiratory Depth Normal Respiratory Pattern Tachypnea Blood Pressure 130/67 H Blood Pressure Mean 88 Pulse Ox 91 92 Oxygen Delivery Method Simple Mask Room Air Room Air Oxygen Flow Rate (L/min) 10 Fraction of Inspired Oxygen (FIO2) Positive well nourished and well developed General Appearance ED: well developed HEENT Reports normocephalic and head/scalp atraumatic Eyes PERRL and EOMs intact bilaterally Neck supple General: Negative for tenderness Chest Wall inspection of chest normal Resp normal respiratory effort Auscultation: wheezes and diminished lung sounds Cardio regular rate and regular rhythm GI non-tender and non-distended Palpation: soft; Negative for guarding or rebound tenderness present no CVA tenderness Extremity normal to inspection Neuro oriented x3 Sensorium / Orientation: alert Psych mental status grossly normal MDM MDM MDM Narrative Medical decision making narrative: Patient was given albuterol, Atrovent aerosols. Chest x-ray read by radiology and myself shows right infrahilar infiltrate. Blood cultures were sent. Patient was given Levaquin IV. Patient has continued wheezing after aerosol treatments but is improved. She states she does not feel well enough to go home. Discussed with hospitalist for admission. Lab Data Attestation: I reviewed the patient's lab results. Labs: Laboratory Results - last 24 hr 02/07/21 02/07/21 02/07/21 22:15 22:15 22:15 WBC 12.5 H RBC 5.16 Hgb 15.2 H Hct 47.1 H MCV 91.3 MCH 29.5 MCHC 32.3 RDW Std Deviation 50.1 H RDW Coeff of Oleg 15.5 H Plt Count 239 MPV 10.3 Immature Gran % (Auto) 0.200 Neut % (Auto) 61.8 Lymph % (Auto) 31.5 [place] % (Auto) 4.3 Eos % (Auto) 1.9 Baso % (Auto) 0.3 Absolute Neuts (auto) 7.7 Absolute Lymphs (auto) 3.94 Nucleated RBC % 0 D-Dimer Quant (PE/DVT) Cancelled Sodium 140 Potassium 4.5 Chloride 110 H Carbon Dioxide 25.0 Anion Gap 5 BUN 16 Creatinine 1.16 H Estim Creat Clear Calc 45.26 Est GFR (MDRD) Af Amer 60 Est GFR (MDRD) Non-Af 50 L BUN/Creatinine Ratio 13.8 Glucose 94 Lactic Acid Calcium 9.1 Total Bilirubin 0.50 AST 27 ALT 26 Alkaline Phosphatase 90 Troponin I 0.032 Total Protein 7.2 Albumin 3.6 Globulin 3.6 Albumin/Globulin Ratio 1.0 02/07/21 22:15 WBC RBC Hgb Hct MCV MCH MCHC RDW Std Deviation RDW Coeff of Oleg Plt Count MPV Immature Gran % (Auto) Neut % (Auto) Lymph % (Auto) [place] % (Auto) Eos % (Auto) Baso % (Auto) Absolute Neuts (auto) Absolute Lymphs (auto) Nucleated RBC % D-Dimer Quant (PE/DVT) Sodium Potassium Chloride Carbon Dioxide Anion Gap BUN Creatinine Estim Creat Clear Calc Est GFR (MDRD) Af Amer Est GFR (MDRD) Non-Af BUN/Creatinine Ratio Glucose Lactic Acid Cancelled Calcium Total Bilirubin AST ALT Alkaline Phosphatase Troponin I Total Protein Albumin Globulin Albumin/Globulin Ratio Radiography Chest X-Ray - ED: 1 View, Read by ED Physician and Read by Radiologist Diagnostic Testing: Radiology Impression Chest X-Ray 02/07/21 21:49 IMPRESSION: Possible mild right infrahilar infiltrate. Electronically Signed: Kyle Whalen DO at 22:37 EDT Tel [phone], Service support , EKG Initial EKG: Attestation: I personally reviewed and interpreted this EKG as follows: Interpretation: No Acute Injury Pattern and Sinus Tachycardia Prior EKG tracings: available for review Prior: Unchanged Discharge Plan Triage Chief Complaint: Cough ED Provider: Jerica Urena Dx/Rx/DC Orders Clinical Impression: Pneumonia, COPD exacerbation Prescriptions: No Action cilostazol 100 MG tablet 100 mg PO BID RF: 0 lisinopril 10 MG tablet 10 mg PO DAILY RF: 0 oxybutynin chloride 5 MG tablet extended release 24hr 5 mg PO DAILY RF: 0 aspirin 81 MG tablet,chewable 81 mg PO DAILY RF: 0 albuterol sulfate 18 GM HFA aerosol inhaler 2 puff IH Q4H PRN PRN (Reason: Wheezing) RF: 0 tizanidine 2 MG capsule 2 mg PO Q8 PRN (Reason: Muscle Spasm) RF: 0 acetaminophen 325 MG tablet 650 mg PO Q6H PRN PRN (Reason: pain 1-07/09) RF: 0 meloxicam 7.5 MG tablet 7.5 mg PO DAILY Qty: 14 RF: 0 gabapentin 300 MG capsule 300 mg PO QHS RF: 0 trazodone 50 MG tablet 50 - 100 mg PO QHS RF: 0 prednisone 10 MG tablet 10 mg PO DAILY Qty: 30 RF: 0 guaifenesin 1,200 MG tablet extended release 12hr 1,200 mg PO BID Qty: 14 RF: 0 atorvastatin 40 mg tablet 40 mg PO DAILY RF: 0 Primary Care Provider: Leonie Castillo Referrals: Leonie Castillo MD [Primary Care Provider] - Disposition Disposition: Acute Care Hospital [facility]
[2021-02-08] MEDS: levoFLOXacin IV 750 MG/150 ML BAG 100 MG IV (01:02)
--- NOTE | 2021-02-08 01:27 | HP.PCM.HOS_ITS ---
HPI - General HPI Narrative INDIRA HOLLINGSWORTH, is a 66 F with a significant history of tobacco abuse and cocaine abuse but now in remission; COPD on supplemental home oxygen; DVT; PAD with stents who presents with 1 week history of cough. Usually her cough is dry but occasionally she has a productive sputum. Associated symptom is wheezing; headache; neck pain and back pain. She attributes her pain to coughing. [facility] Medical History (Updated 02/08/21 @ 01:[address] Ede Jimenez MD) Alcohol abuse Cocaine abuse DVT (deep venous thrombosis) H/O cocaine abuse H/O ETOH abuse Hepatitis C HTN (hypertension) Lumbar herniated disc Pinched nerve in neck Presence of stent in artery Home Medications albuterol sulfate 2 puff IH Q4H PRN PRN 08/26/20 [History Last Taken 08/26/20] aspirin 81 mg PO DAILY 08/26/20 [History Last Taken 09/12/20] cilostazol 100 mg PO BID 08/26/20 [History Last Taken 09/12/20] lisinopril 10 mg PO DAILY 08/26/20 [History Last Taken 09/12/20] oxybutynin chloride 5 mg PO DAILY 08/26/20 [History Last Taken 09/12/20] tizanidine 2 mg PO Q8 PRN 08/26/20 [History Last Taken 08/26/20] acetaminophen 650 mg PO Q6H PRN PRN tab 08/29/20 [Rx Last Taken Unknown] meloxicam 7.5 mg PO DAILY #14 tab 08/29/20 [Rx Last Taken 09/12/20] gabapentin 300 mg PO QHS 09/12/20 [History Last Taken 09/11/20] trazodone 50 - 100 mg PO QHS 09/13/20 [History Last Taken Unknown] guaifenesin 1,200 mg PO BID #14 tab.er.12h 09/15/20 [Rx Last Taken Unknown] prednisone 10 mg PO DAILY #30 tab 09/15/20 [Rx Last Taken Unknown] atorvastatin 40 mg PO DAILY 02/07/21 [History Last Taken Unknown] Allergy/AdvReac Type Severity Reaction Status Date / Time No Known Allergies Allergy Verified 09/12/20 19:56 Family History Other Alcoholism Hypertension Surgical History (Updated 02/08/21 @ 01:[address] Ede Jimenez MD) Stenosis of artery of left lower extremity Social History (Updated 02/08/21 @ 01:[address] Ede Jimenez MD) Smoking Status: Current every day smoker ROS ROS Narrative 12 point review of system is negative except as stated in HPI. Vital Signs Vital Signs Vital Signs: 02/07/21 20:45 02/07/21 21:27 02/07/21 21:47 Temperature 99.5 F H 99.5 F H Temperature Source Temporal Temporal Pulse Rate 128 H 120 H 125 H Respiratory Rate 28 H 28 H 25 H Respiratory Effort Respiratory Depth Respiratory Pattern Blood Pressure 182/86 H 139/70 H Blood Pressure Mean 118 93 Pulse Ox 97 Oxygen Delivery Method Simple Mask Oxygen Flow Rate (L/min) 10 Fraction of Inspired Oxygen (FIO2) 10 02/07/21 21:49 02/07/21 22:00 02/07/21 23:18 Temperature Temperature Source Pulse Rate 126 H 118 H Respiratory Rate 25 H 18 Respiratory Effort Short of Breath Respiratory Depth Normal Respiratory Pattern Tachypnea Blood Pressure 130/67 H Blood Pressure Mean 88 Pulse Ox 91 92 Oxygen Delivery Method Simple Mask Room Air Room Air Oxygen Flow Rate (L/min) 10 Fraction of Inspired Oxygen (FIO2) 02/08/21 01:04 Temperature Temperature Source Pulse Rate 108 H Respiratory Rate 24 H Respiratory Effort Respiratory Depth Respiratory Pattern Blood Pressure 114/52 L Blood Pressure Mean 72 Pulse Ox 93 Oxygen Delivery Method Nasal Cannula Oxygen Flow Rate (L/min) 3 Fraction of Inspired Oxygen (FIO2) Physical Exam Narrative Alert and oriented x3 Nontraumatic; normocephalic Tachypnea; lung clear to auscultate Heart sounds S1-S2. Tachycardia; no murmur, gallop or rubs. Abdomen bowel sounds present soft, nontender nondistended Extremity without edema cyanosis or clubbing. Lab / Micro Data Result Diagrams: 02/07/21 22:15 02/07/21 22:15 Labs: Laboratory Results - last 24 hr 02/07/21 02/07/21 02/07/21 22:15 22:15 22:15 WBC 12.5 H RBC 5.16 Hgb 15.2 H Hct 47.1 H MCV 91.3 MCH 29.5 MCHC 32.3 RDW Std Deviation 50.1 H RDW Coeff of Oleg 15.5 H Plt Count 239 MPV 10.3 Immature Gran % (Auto) 0.200 Neut % (Auto) 61.8 Lymph % (Auto) 31.5 [place] % (Auto) 4.3 Eos % (Auto) 1.9 Baso % (Auto) 0.3 Absolute Neuts (auto) 7.7 Absolute Lymphs (auto) 3.94 Nucleated RBC % 0 D-Dimer Quant (PE/DVT) Cancelled Sodium 140 Potassium 4.5 Chloride 110 H Carbon Dioxide 25.0 Anion Gap 5 BUN 16 Creatinine 1.16 H Estim Creat Clear Calc 45.26 Est GFR (MDRD) Af Amer 60 Est GFR (MDRD) Non-Af 50 L BUN/Creatinine Ratio 13.8 Glucose 94 Lactic Acid Calcium 9.1 Total Bilirubin 0.50 AST 27 ALT 26 Alkaline Phosphatase 90 Troponin I 0.032 Total Protein 7.2 Albumin 3.6 Globulin 3.6 Albumin/Globulin Ratio 1.0 02/07/21 22:15 WBC RBC Hgb Hct MCV MCH MCHC RDW Std Deviation RDW Coeff of Oleg Plt Count MPV Immature Gran % (Auto) Neut % (Auto) Lymph % (Auto) [place] % (Auto) Eos % (Auto) Baso % (Auto) Absolute Neuts (auto) Absolute Lymphs (auto) Nucleated RBC % D-Dimer Quant (PE/DVT) Sodium Potassium Chloride Carbon Dioxide Anion Gap BUN Creatinine Estim Creat Clear Calc Est GFR (MDRD) Af Amer Est GFR (MDRD) Non-Af BUN/Creatinine Ratio Glucose Lactic Acid Cancelled Calcium Total Bilirubin AST ALT Alkaline Phosphatase Troponin I Total Protein Albumin Globulin Albumin/Globulin Ratio Micro: Microbiology 02/07/21 21:52 SARS-CoV-2 Antigen (Rapid) - Final Nasal Secretion Radiology Impression Chest X-Ray 02/07/21 21:49 IMPRESSION: Possible mild right infrahilar infiltrate. Electronically Signed: Kyle Whalen DO at 22:37 EDT Tel [phone], Service support , Assessment & Plan Assessment/Plan (1) COPD (chronic obstructive pulmonary disease): QUALIFIERS: COPD type: COPD with acute exacerbation Qualified Code(s): J44.1 - Chronic obstructive pulmonary disease with (acute) exacerbation (2) Pneumonia: QUALIFIERS: Pneumonia type: due to unspecified organism Laterality: right Lung location: unspecified part of lung Qualified Code(s): J18.9 - Pneumonia, unspecified organism (3) Tobacco abuse: PLAN: Acute Exacerbation of COPD Impression of chest x-ray by radiology: Possible mild right infrahilar infiltrate. Scheduled DuoNeb ordered Albuterol as needed ordered Prednisone 40 mg daily. Levaquin 750 mg IV daily ordered at the emergency department and continued. Continue supplemental oxygen. Titrate oxygen to maintain oxygen saturation to at least 92%. Monitor BMP and CBC Pneumonia Gram-positive and gram-negative. Chest x-ray independently viewed show some mild infiltrate at right infrahilar area. Started on on Levaquin IV at emergency department; continue Trend CBC and BMP. Noted to have tachycardia and tachypnea; likely secondary to COPD Tobacco abuse Counseled Nicotine patch prescribed DVT prophylaxis Subcutaneous Lovenox ordered. Visit Charges OBSV E&M: 40133 Initial observation care L3
[2021-02-08] MEDS: Acetaminophen 325 MG Tablet 650 MG PO (05:47)
[2021-02-08 06:58] LABS: Absolute Lymphocyte Count 2.77 X10^3/uL (0.83-4.51); Absolute Neutrophil Count 4.1 X10^3/uL (2.0-7.7); Basophil# 0.01 X10^3/uL; Basophil% 0.1 % (0-1); Eosinophil# 0.16 X10^3/uL; Eosinophils% 2.1 % (0-5); Hemoglobin 12.4 g/dL (12.0-15.0); Lymphocyte # 2.77 X10^3/ul (0.83-4.51); Lymphocyte % 36.5 % (19-41); Mean Corp Hgb Conc 31.8 g/dL (32-36); Mean Corpuscular Hgb 28.5 pg (27.0-32.0); Mean Corpuscular Volume 89.7 fL (81-99); Mean Platelet Vol. 10.2 fl (6.2-12.0); Monocyte# 0.49 X10^3/uL; Monocyte% 6.5 % (0-10); NRBC Flagged by Analyzer 0 % (0-5); Neutrophil # 4.14 X10^3/uL (2.7-7.7); Neutrophil % 54.5 % (47-70); Platelet Count 202 K/mm3 (150-450); RBC Distribution Width CV 14.6 % (11.6-14.6); RBC Distribution Width SD 47.9 fl (35.1-43.9); Red Blood Count 4.35 M/mm3 (4.2-5.4); White Blood Count 7.6 K/mm3 (4.4-11.0)
[2021-02-08 07:27] LABS: Anion Gap 6 (5-15); BUN 19 mg/dL (7-18); BUN/Creat Ratio 18.1 RATIO (10-20); Calcium,Total 8.6 mg/dL (8.5-10.1); Chloride 107 mmol/L (98-107); Creatinine, Serum 1.05 mg/dL (0.55-1.02); EST Glomerular Filtration Rate 56 mL/min (>60); Est Glom Filt Rate - Afr Amer 68 mL/min (>60); Glucose 117 mg/dL (74-106); Potassium 3.6 mmol/L (3.5-5.1); Sodium Level 139 mmol/L (136-145)
[2021-02-08] MEDS: Aspirin 81 MG TAB.CHEW PO (09:29)
[2021-02-08] MEDS: predniSONE 20 MG Tablet 40 MG PO (09:29)
[2021-02-08] MEDS: Lisinopril 10 MG Tablet PO (09:29)
[2021-02-08] MEDS: Cilostazol 50 MG Tablet 100 MG PO ×2 (09:29→21:45)
[2021-02-08] MEDS: Tolterodine Tartrate 2 MG CAP.SA PO (09:30)
[2021-02-08] MEDS: guaiFENesin 1,200 MG Tablet 1200 MG PO ×2 (09:30→21:45)
[2021-02-08] MEDS: Enoxaparin 40 MG/0.4 ML Syringe SC (09:36)
--- NOTE | 2021-02-08 09:59 | CASEMGMT ---
CHARMAINE VALENCIA Assessment: Face to Face with pt for initial transition planning/care coordination assessment. CHARMAINE VALENCIA introduced self and role at [facility], pt voices understanding and consents to assessment. Pt is A/O x4 and answers all questions appropriately at this time. Pt lying in bed with O2 on at 3L NC in no distress. Care providers, pharmacy, and demographics verified/updated. Admitting Dx: COPD exac PCP: [facility] Specialists: Pt states she does not know her specialists name. She states she has a lung doctor in [place] and per previous note, a vascular surgeon at [facility]. Preferred Pharmacy: [facility] Insurance: [facility] Prescription Benefit: yes LW/HPOA: Pt denies having a LW/DPOA LNOK: Aries Alves, son; Felicitas Glez, friend Living Arrangements: Pt lives alone in a ground apartment with 1 step to enter. Pt reports being I in ADL's and denies concerns at home. Transportation: Pt able to drive but states she does not have a car. She uses public transportation and has no concerns with transportation. DME/HHC/SNF: Pt states she has an O2 concentrator that she got from a friend in [place]. She uses 2L continuous at home. She also states she has an old concentrator from [employer] that needs returned because it doesn't work properly. Denies any previous HHC. She states she has stayed at [facility]. She is unsure of where this is. Pt provided list of local in network DME companies. Pt states she does not care who is chosen as she is not from around here. Pt states no concerns with going home at time of dc. Pt states no further concerns/needs. CM to follow. Advised pt to ask CM if any further question/concerns/needs arise, voices understanding. Pt Goal: Home Plan: Home, will follow for O2 needs.
[2021-02-08] MEDS: Ipratropium/Albuterol Sulfate 3 ML AMPUL.NEB INHALATION ×3 (10:55→19:29)
[2021-02-08] MEDS: oxyCODONE 5 MG Tablet PO (16:48)
--- NOTE | 2021-02-08 18:37 | PCM.HOSP.N ---
Hospitalist Note Patient was seen and examined briefly today, she is having coarse expiratory wheezes bilaterally, patient states that she has oxygen at home that was given to her by a friend-she appears to have a concentrator. Patient states that she has been coughing for several days and has severe chest discomfort from the coughing. I have decided to order respiratory panel and the patient, I also placed her on IV Solu-Medrol and discontinued her oral prednisone. Patient will be reevaluated tomorrow
--- NOTE | 2021-02-08 20:30 | NURSING ---
Pt set the bed exit off. Pt found in bathroom. Instructed pt to call for help because of having 02 tubing. we dont want her to fall. Pt told this nurse she aint waiting on anyone because she is not going to pee her pants. Informed pt it is for stafety reason. Pt said not going to happen. Bed exit on
[2021-02-08] MEDS: Gabapentin 300 MG Capsule PO (21:45)
[2021-02-08] MEDS: 0.9% Saline Lock 10 ML Syringe IV (21:45)
[2021-02-08] MEDS: Atorvastatin Calcium 40 MG Tablet PO (21:45)
[2021-02-08] MEDS: levoFLOXacin 750 MG Tablet PO (21:45)
[2021-02-08] MEDS: traZODone 50 MG Tablet PO (21:45)
[2021-02-09] VITALS (10 sets, daily range): BP systolic 103–116; BP diastolic 44–63; PULSE 94–110; RESP 18–22; TEMP 36.5–36.6; O2SAT 92–99
[2021-02-09] MEDS: traZODone 50 MG Tablet PO (00:36)
[2021-02-09] MEDS: Ipratropium/Albuterol Sulfate 3 ML AMPUL.NEB INHALATION ×5 (03:35→23:25)
[2021-02-09] MEDS: 0.9% Saline Lock 10 ML Syringe IV ×3 (05:07→21:17)
[2021-02-09 09:27] LABS: D-Dimer Quantitative (DVT/PE) 1.97 FEU/ug/m (0.27-0.49)
--- NOTE | 2021-02-09 10:16 | CT_ITS ---
EXAM: CT ANGIOGRAPHY CHEST WITHOUT AND WITH INTRAVENOUS CONTRAST : 1955 CLINICAL INDICATION: elevated d-dimer, hypoxia TECHNIQUE: Helically acquired angiography images were obtained of the chest without and with intravenous contrast. This CT exam was performed using one or more of the following dose reduction techniques: automated exposure control, adjustment of the mA and/or kV according to patient size, and/or use of iterative reconstruction technique. This report was created using [employer] report generation technology. MIP reconstructed images were created and reviewed. CONTRAST: IV 100mL [id number] COMPARISON: None. FINDINGS: PULMONARY ARTERIES: Unremarkable. Normal in caliber. No evidence of pulmonary embolism. AORTA: Unremarkable. Normal in caliber. No evidence of dissection. GREAT VESSELS OF AORTIC ARCH: Unremarkable. Normal in caliber. No evidence of dissection. LUNGS AND PLEURAL SPACES: There is consolidation in the lung bases. There is also patchy airspace disease in the right middle lobe. Pression. Consolidation in the lower lobes which may represent atelectasis or developing pneumonia. No mass. No pleural effusion or thickening. HEART: Unremarkable. Heart size is normal. No pericardial effusion. No signs of right heart strain. MEDIASTINUM: Unremarkable. No mediastinal or hilar adenopathy. Esophagus is unremarkable. No hiatal hernia. THYROID: Unremarkable. No thyroid lesions. BONES/JOINTS: Unremarkable. No suspicious lytic or blastic abnormality. CT/CTA Chest W/WO Contrast IMPRESSION: No evidence of pulmonary embolus. Individualized dose optimization techniques were used for this CT. at 1113 Reported and signed by: Renard Chavez MD Electronically Signed: Renard Chavez MD at 11:12 EDT Tel , Service support ,
[2021-02-09] MEDS: Aspirin 81 MG TAB.CHEW PO (10:24)
[2021-02-09] MEDS: oxyCODONE 5 MG Tablet PO (10:24)
[2021-02-09] MEDS: Cilostazol 50 MG Tablet 100 MG PO ×2 (10:25→21:16)
[2021-02-09] MEDS: Tolterodine Tartrate 2 MG CAP.SA PO (10:25)
[2021-02-09] MEDS: Enoxaparin 40 MG/0.4 ML Syringe SC (10:26)
[2021-02-09] MEDS: Lisinopril 10 MG Tablet PO (10:26)
[2021-02-09] MEDS: guaiFENesin 1,200 MG Tablet 1200 MG PO ×2 (10:26→21:17)
--- NOTE | 2021-02-09 11:56 | CASEMGMT ---
Pt screened with [facility] Palliative Care Screening Tool d/t Strata 3, pt did not meet criteria.
--- NOTE | 2021-02-09 12:37 | PCM.PN.HOSP ---
Documented by User: Demarco DARNELL 02/09/21 12:51 Subjective Subjective Patient is a 66-year-old female who is lying in bed, alert and oriented x3. Patient reports significant low back pain, difficulty breathing and productive cough. Denies chest pain, palpitations, fever, chills, N/V/D. Objective Data Objective Data Vital Signs: Vital Signs Temp Pulse Resp BP Pulse Ox 97.9 F 97 18 107/63 99 02/09/21 09:30 02/09/21 09:30 02/09/21 09:30 02/09/21 09:30 02/09/21 09:30 Oxygen Flow Rate (L/min) 2 Oxygen Delivery Method Nasal Cannula Weight: 165 lb 12.602 oz Body Mass Index (BMI) 26.7 Intake & Output: Intake and Output for Last 24 Hours 02/07/21 02/08/21 02/09/21 23:59 23:59 23:59 Intake Total 1000 / 1320 380 / 380 Balance 1000 / 1320 380 / 380 Lab / Micro Data Result Diagrams: 02/08/21 06:45 02/08/21 06:45 Labs: Laboratory Results - last 24 hr 02/09/21 08:08 D-Dimer Quant (PE/DVT) 1.97 H* Micro: Microbiology 02/08/21 17:00 Mucosa - Other Respiratory Panel (PCR) - Final 02/07/21 21:52 Nasal Secretion SARS-CoV-2 Antigen (Rapid) - Final Radiography Diagnostic Testing: Radiology Impression Chest CTA 02/09/21 10:16 IMPRESSION: No evidence of pulmonary embolus. Individualized dose optimization techniques were used for this CT. at 1113 Reported and signed by: Renard Chavez MD Electronically Signed: Renard Chavez MD at 11:12 EDT Tel , Service support , Physical Exam Narrative See subjective. Const alert, oriented x3, no apparent distress and average body habitus HEENT head/scalp atraumatic and moist oral mucous membranes Head and Scalp: normocephalic Eyes PERRL and EOMs intact bilaterally Neck no lymphadenopathy, supple and no JVD Resp Effort and Inspection: respiratory distress Auscultation: rhonchi, wheezes and diminished lung sounds Cardio regular rate, regular rhythm, no murmurs and no JVD GI normal to inspection, nondistended, normoactive bowel sounds, soft to palpation, non-tender and non-distended Extremity normal to inspection, full ROM and no clubbing, cyanosis or edema Skin no rashes or lesions noted, no wounds, skin turgor normal, no jaundice and no petechiae Neuro CN's II-XII intact bilaterally Psych affect normal Assessment & Plan Assessment/Plan (1) COPD (chronic obstructive pulmonary disease): QUALIFIERS: COPD type: COPD with acute exacerbation Qualified Code(s): J44.1 - Chronic obstructive pulmonary disease with (acute) exacerbation (2) Pneumonia: QUALIFIERS: Laterality: right Lung location: unspecified part of lung Pneumonia type: due to unspecified organism Qualified Code(s): J18.9 - Pneumonia, unspecified organism (3) Tobacco abuse: PLAN: See subjective for patient presentation. D-dimer elevated at 1.97, CT- A demonstrated no evidence of PE. 1) COPD exacerbation On my exam patient endorses difficulty breathing as well as productive cough. Lung sounds diminished bilaterally, more pronounced on the right. Vital signs stable, currently satting 99% on 3 L via nasal cannula. Plan; continue supplemental oxygen, titrate to at least 92%, albuterol as needed, DuoNeb every 4, methylprednisolone 40 mg IV every 8 hours, incentive spirometry encouraged. 2) Pneumonia Chest x-ray demonstrates mild right infrahilar infiltrate. Vital signs as above. CBC and BMP unremarkable. Rapid Covid negative. Viral respiratory panel unremarkable. Blood cultures pending. Plan; continue Levaquin, continue to monitor. 3) Tobacco abuse Counseled for smoking cessation. Plan; continue nicotine patch. DVT prophylaxis -Lovenox [place] Patient seen by Demarco Coulter PA-C, under the supervision of Dr. Bejarano. Documented by User: Dr. Stuart Meadows DO 02/09/21 19:03 Objective Data Lab / Micro Data Result Diagrams: 02/08/21 06:45 02/08/21 06:45 Addendum Addendum: Patient was seen and examined today independently of Demarco Coulter, she is still having expiratory rhonchi and I ordered a D-dimer on her today which was elevated, we got a CTA of her chest which showed no evidence of PE. She conveyed she complained of chest discomfort when she coughs, she is still currently on supplemental oxygen-she is only requiring 2 L/min at this time. On examination she appeared in good health and spirits, she does not appear to be in any distress. Vital signs as documented. Skin warm and dry and without overt rashes. Neck without JVD, thyroid appears normal, trachea is midline, neck is supple. Lungs-expiratory rhonchi are noted bilaterally, normal air movement was noted. Heart exam notable for regular rhythm, normal sounds and absence of murmurs, rubs or gallops. Abdomen unremarkable and without evidence of organomegaly, masses, or abdominal aortic enlargement, bowel sounds are present in all 4 quadrants, no abdominal tenderness was noted. Extremities nonedematous, no cyanosis was noted, no clubbing was noted. Neuro: Cranial nerves II through XII are grossly intact, no focal motor deficits were noted, sensation to light touch and pinprick is intact, motor exam 5/5 throughout. Psych: Patient is alert and oriented x3, she does not appear anxious or depressed, she does not appear agitated. Continue present treatment, she will be reevaluated tomorrow. I have reviewed Demarco Coulter's progress note including his medical assessment and plan of care and endorse it. Visit Charges Inpatient E&M: 26726 Subs Hosp L2
[2021-02-09] MEDS: levoFLOXacin 750 MG Tablet PO (21:16)
[2021-02-09] MEDS: Gabapentin 300 MG Capsule PO (21:16)
[2021-02-09] MEDS: Atorvastatin Calcium 40 MG Tablet PO (21:17)
[2021-02-10] VITALS (11 sets, daily range): BP systolic 105–118; BP diastolic 56–77; PULSE 92–110; RESP 16–20; TEMP 36.4; O2SAT 88–97
[2021-02-10] MEDS: traZODone 50 MG Tablet PO (00:03)
[2021-02-10] MEDS: 0.9% Saline Lock 10 ML Syringe IV (05:03)
[2021-02-10] MEDS: Senna/Docusate Sodium 1 Tablet 2 TABLET PO (05:19)
[2021-02-10 06:41] LABS: Absolute Lymphocyte Count 0.94 X10^3/uL (0.83-4.51); Absolute Neutrophil Count 9.9 X10^3/uL (2.0-7.7); Basophil# 0.01 X10^3/uL; Basophil% 0.1 % (0-1); Hematocrit 38.8 % (37-47); Hemoglobin 12.5 g/dL (12.0-15.0); Lymphocyte # 0.94 X10^3/ul (0.83-4.51); Lymphocyte % 8.4 % (19-41); Mean Corp Hgb Conc 32.2 g/dL (32-36); Mean Corpuscular Hgb 28.9 pg (27.0-32.0); Mean Corpuscular Volume 89.8 fL (81-99); Mean Platelet Vol. 10.6 fl (6.2-12.0); Monocyte# 0.21 X10^3/uL; Monocyte% 1.9 % (0-10); NRBC Flagged by Analyzer 0 % (0-5); Neutrophil # 9.91 X10^3/uL (2.7-7.7); Neutrophil % 88.8 % (47-70); Platelet Count 252 K/mm3 (150-450); RBC Distribution Width CV 14.6 % (11.6-14.6); Red Blood Count 4.32 M/mm3 (4.2-5.4); White Blood Count 11.2 K/mm3 (4.4-11.0)
[2021-02-10 07:02] LABS: Anion Gap 5 (5-15); BUN 21 mg/dL (7-18); BUN/Creat Ratio 19.6 RATIO (10-20); Calcium,Total 9.4 mg/dL (8.5-10.1); Chloride 107 mmol/L (98-107); Creatinine, Serum 1.07 mg/dL (0.55-1.02); EST Glomerular Filtration Rate 55 mL/min (>60); Est Glom Filt Rate - Afr Amer 66 mL/min (>60); Estimated Creatinine Clearance 49.07 ml/min; Glucose 163 mg/dL (74-106); Potassium 4.6 mmol/L (3.5-5.1); Sodium Level 137 mmol/L (136-145)
[2021-02-10] MEDS: Ipratropium/Albuterol Sulfate 3 ML AMPUL.NEB INHALATION ×2 (07:28→11:24)
[2021-02-10] MEDS: oxyCODONE 5 MG Tablet PO (08:51)
[2021-02-10] MEDS: Lisinopril 10 MG Tablet PO (08:52)
[2021-02-10] MEDS: Tolterodine Tartrate 2 MG CAP.SA PO (08:52)
[2021-02-10] MEDS: guaiFENesin 1,200 MG Tablet 1200 MG PO (08:52)
[2021-02-10] MEDS: Aspirin 81 MG TAB.CHEW PO (08:53)
[2021-02-10] MEDS: Enoxaparin 40 MG/0.4 ML Syringe SC (08:53)
[2021-02-10] MEDS: Cilostazol 50 MG Tablet 100 MG PO (09:43)
--- NOTE | 2021-02-10 11:29 | PCM.DC ---
Discharge Instructions Follow Up Care Test Results: Test results from this visit will be discussed in further detail at your follow-up appointment, if applicable. Discharge Plan Admission Admit Date/Time: 02/08/21 09:19 Primary Reason for Your Visit: COPD exacerbation Attending Provider: Stuart Meadows Primary Care Provider: Leonie Castillo Instructions Patient Instructions: Care for COPD, COPD: Using Inhalers, ED COPD Flare Discharge Orders/Prescriptions Prescriptions: New albuterol sulfate [ProAir HFA] 90 mcg/actuation HFA aerosol inhaler 1 puff inhalation Q6H Qty: 6.7 RF: 0 prednisone 20 mg tablet 40 mg PO DAILY Qty: 10 RF: 0 levofloxacin 500 mg tablet 500 mg PO DAILY Qty: 5 RF: 0 Advair HFA 45-21 mcg/actuation HFA aerosol inhaler 2 puff inhalation BID Qty: 12 RF: 0 Continued cilostazol 100 MG tablet 100 mg PO BID RF: 0 lisinopril 10 MG tablet 10 mg PO DAILY RF: 0 oxybutynin chloride 5 MG tablet extended release 24hr 5 mg PO DAILY RF: 0 aspirin 81 MG tablet,chewable 81 mg PO DAILY RF: 0 albuterol sulfate 18 GM HFA aerosol inhaler 2 puff IH Q4H PRN PRN (Reason: Wheezing) RF: 0 tizanidine 2 MG capsule 2 mg PO Q8 PRN (Reason: Muscle Spasm) RF: 0 acetaminophen 325 MG tablet 650 mg PO Q6H PRN PRN (Reason: pain 1-10/10) RF: 0 meloxicam 7.5 MG tablet 7.5 mg PO DAILY Qty: 14 RF: 0 gabapentin 300 MG capsule 300 mg PO QHS RF: 0 trazodone 50 MG tablet 50 - 100 mg PO QHS RF: 0 guaifenesin 1,200 MG tablet extended release 12hr 1,200 mg PO BID Qty: 14 RF: 0 atorvastatin 40 mg tablet 40 mg PO DAILY RF: 0 Discontinued prednisone 10 MG tablet 10 mg PO DAILY Qty: 30 RF: 0 Referrals / Follow Up: Leonie Castillo MD [Primary Care Provider] - Disposition Disposition (needs filled in before D/C Order can be placed): Home, self care
--- NOTE | 2021-02-10 11:30 | CASEMGMT ---
RN CM noted pt to be dc'd with home O2. Referral faxed to [facility]. TC to [facility] and confirmed receipt of referral. O2 to be delivered to pt room.
[2021-02-10] MEDS: Bisacodyl 10 MG Suppository RC (13:01)
--- NOTE | 2021-02-10 14:20 | PHA.DC.MC ---
Pharmacy Service has performed discharge medication reconciliation and counseling for this patient. 1. ADVAIR 2PUFFS PO BID 2. LEVOFLOXACIN 500MG PO DAILY 3. PREDNISONE 40MG PO DAILY X 5 DAYS The patient's discharge medication list was reviewed for discrepancies and discrepancies were resolved. This [facility] spoke to CARIE Coulter, new Adv and a scheduled Proair ordered for q6h. Demarco james D/Taryn scheduled Proair, patient already has one at home ordered Q4H PRN. Home Medications albuterol sulfate 2 puff IH Q4H PRN PRN 08/26/20 aspirin 81 mg PO DAILY 08/26/20 cilostazol 100 mg PO BID 08/26/20 lisinopril 10 mg PO DAILY 08/26/20 oxybutynin chloride 5 mg PO DAILY 08/26/20 tizanidine 2 mg PO Q8 PRN 08/26/20 acetaminophen 650 mg PO Q6H PRN PRN tab 08/29/20 meloxicam 7.5 mg PO DAILY #14 tab 08/29/20 gabapentin 300 mg PO QHS 09/12/20 trazodone 50 - 100 mg PO QHS 09/13/20 guaifenesin 1,200 mg PO BID #14 tab.er.12h 09/15/20 atorvastatin 40 mg PO DAILY 02/07/21 fluticasone propion-salmeterol [Advair HFA] 2 puff INHALATION BID #12 g 02/10/21 levofloxacin 500 mg PO DAILY #5 tab 02/10/21 prednisone 40 mg PO DAILY #10 tab 02/10/21 The patient was counseled on the following discharge medications and changes in medications for homegoing were reviewed. The Reason for Use, instructions for use, and potential side effects were reviewed for all new medications. The patient's questions regarding all of their medications were answered. The patient was able to verbally demonstrate an understanding of their discharge medications. Patient counseled by Robert perez.
--- NOTE | 2021-02-10 14:31 | DS.PCM_ITS ---
Providers Date of Admission: 02/08/21 Primary Care Physician: Dr. Leonie Castillo MD Reason For Visit: COPD EXACERBATION Diagnosis Discharge Diagnosis (1) COPD (chronic obstructive pulmonary disease): Status: Acute Code(s): J44.9 - Chronic obstructive pulmonary disease, unspecified Qualifiers: COPD type: COPD with acute exacerbation Qualified Code(s): J44.1 - Chronic obstructive pulmonary disease with (acute) exacerbation (2) Pneumonia: Status: Acute Code(s): J18.9 - Pneumonia, unspecified organism Qualifiers: Pneumonia type: due to unspecified organism Laterality: right Lung location: unspecified part of lung Qualified Code(s): J18.9 - Pneumonia, unspecified organism (3) Tobacco abuse: Status: Chronic Code(s): Z72.0 - Tobacco use Medications at Discharge Home Medications albuterol sulfate 2 puff IH Q4H PRN PRN 08/26/20 aspirin 81 mg PO DAILY 08/26/20 cilostazol 100 mg PO BID 08/26/20 lisinopril 10 mg PO DAILY 08/26/20 oxybutynin chloride 5 mg PO DAILY 08/26/20 tizanidine 2 mg PO Q8 PRN 08/26/20 acetaminophen 650 mg PO Q6H PRN PRN tab 08/29/20 meloxicam 7.5 mg PO DAILY #14 tab 08/29/20 gabapentin 300 mg PO QHS 09/12/20 trazodone 50 - 100 mg PO QHS 09/13/20 guaifenesin 1,200 mg PO BID #14 tab.er.12h 09/15/20 atorvastatin 40 mg PO DAILY 02/07/21 fluticasone propion-salmeterol [Advair HFA] 2 puff INHALATION BID #12 g 02/10/21 levofloxacin 500 mg PO DAILY #5 tab 02/10/21 nicotine [Nicoderm CQ] 1 patch TRANSDERMAL Q24H #14 ea 02/10/21 oxycodone 5 mg PO Q8H PRN 5 Days #15 cap 02/10/21 prednisone 40 mg PO DAILY #10 tab 02/10/21 Hospital Course Summary of Care Provided Minutes Spent on Discharge: 35 Hospital Course: See subjective for patient presentation. Vital signs stable. CBC and BMP unremarkable. Patient reports feeling strong enough to return home for recovery. 1) COPD exacerbation Patient symptoms much improved from yesterday in regard to her shortness of breath and cough. Lung sounds diminished bilaterally, more pronounced on the right. Vital signs stable, currently satting 99% on 3 L via nasal cannula. Patient does endorse chronic chest pain which she relates to her cough. EKG on admission only demonstrated sinus tachycardia that is since resolved. CT- A revealed no evidence of pulmonary embolism or arterial dissection. Chest pain could be related to pleuritis, oxycodone prescribed on discharge. Patient does qualify for home oxygen as her ambulatory pulse ox on room air was 88% with amb ulation. Plan; Advair initiated on discharge, home oxygen initiated on discharge, prednisone burst initiated on discharge for 5 days, Levaquin 500 mg x 5 days initiated on discharge, continue albuterol. 2) Pneumonia Chest x-ray demonstrates mild right infrahilar infiltrate. Vital signs as above. CBC and BMP unremarkable. Rapid Covid negative. Viral respiratory panel unremarkable. Blood cultures demonstrate no growth. Plan; Levaquin x5 days continued on discharge. 3) Tobacco abuse Counseled for smoking cessation. Plan; NicoDerm patches for 2 weeks given at discharge. Patient seen by Demarco Coulter PA-C, under the supervision of Dr. Bejarano. Physical Exam Narrative Patient is a 66-year-old female comfortably resting in bed, alert and oriented x3. Patient symptoms in regard to her shortness of breath and cough are much improved from yesterday, patient feels she is strong enough to return home to resume her recovery. Denies fever, chills, N/V/D. ABG / Lab / Microbiology Data Result Diagrams: 02/10/21 06:08 02/10/21 06:08 Laboratory: Laboratory Results - last 24 hr 02/10/21 02/10/21 06:08 06:08 WBC 11.2 H RBC 4.32 Hgb 12.5 Hct 38.8 MCV 89.8 MCH 28.9 MCHC 32.2 RDW Std Deviation 48.0 H RDW Coeff of Oleg 14.6 Plt Count 252 MPV 10.6 Immature Gran % (Auto) 0.800 Neut % (Auto) 88.8 H Lymph % (Auto) 8.4 L [place] % (Auto) 1.9 Eos % (Auto) 0.0 Baso % (Auto) 0.1 Absolute Neuts (auto) 9.9 H Absolute Lymphs (auto) 0.94 Nucleated RBC % 0 Sodium 137 Potassium 4.6 Chloride 107 Carbon Dioxide 25.0 Anion Gap 5 BUN 21 H Creatinine 1.07 H Estim Creat Clear Calc 49.07 Est GFR (MDRD) Af Amer 66 Est GFR (MDRD) Non-Af 55 L BUN/Creatinine Ratio 19.6 Glucose 163 H Calcium 9.4 Microbiology: Microbiology 02/07/21 22:15 Blood Culture - Preliminary Blood Culture (Wb) - Anticubital Right No growth in 48 hours. Microbiology 02/07/21 22:15 Blood Culture (Wb) - Anticubital Right Blood Culture - Preliminary No growth in 48 hours. 02/08/21 17:00 Mucosa - Other Respiratory Panel (PCR) - Final 02/07/21 21:52 Nasal Secretion SARS-CoV-2 Antigen (Rapid) - Final Meaningful Use Info Meaningful Use Diagnoses (Choose all that apply): None applicable Discharge Plan Admission Admit Date/Time: 02/08/21 09:19 Primary Reason for Your Visit: COPD exacerbation Attending Provider: Stuart Meadows Primary Care Provider: Leonie Castillo Instructions Patient Instructions: Care for COPD, COPD: Using Inhalers, ED COPD Flare Discharge Orders/Prescriptions Prescriptions: New prednisone 20 mg tablet 40 mg PO DAILY Qty: 10 RF: 0 levofloxacin 500 mg tablet 500 mg PO DAILY Qty: 5 RF: 0 Advair HFA 45-21 mcg/actuation HFA aerosol inhaler 2 puff inhalation BID Qty: 12 RF: 0 oxycodone 5 mg capsule 5 mg PO Q8H PRN (Reason: pain) 5 Days Qty: 15 RF: 0 nicotine [Nicoderm CQ] 7 mg/24 hr patch 24 hour 1 patch transdermal Q24H Qty: 14 RF: 0 Continued cilostazol 100 MG tablet 100 mg PO BID RF: 0 lisinopril 10 MG tablet 10 mg PO DAILY RF: 0 oxybutynin chloride 5 MG tablet extended release 24hr 5 mg PO DAILY RF: 0 aspirin 81 MG tablet,chewable 81 mg PO DAILY RF: 0 albuterol sulfate 18 GM HFA aerosol inhaler 2 puff IH Q4H PRN PRN (Reason: Wheezing) RF: 0 tizanidine 2 MG capsule 2 mg PO Q8 PRN (Reason: Muscle Spasm) RF: 0 acetaminophen 325 MG tablet 650 mg PO Q6H PRN PRN (Reason: pain 1-07/09) RF: 0 meloxicam 7.5 MG tablet 7.5 mg PO DAILY Qty: 14 RF: 0 gabapentin 300 MG capsule 300 mg PO QHS RF: 0 trazodone 50 MG tablet 50 - 100 mg PO QHS RF: 0 guaifenesin 1,200 MG tablet extended release 12hr 1,200 mg PO BID Qty: 14 RF: 0 atorvastatin 40 mg tablet 40 mg PO DAILY RF: 0 Discontinued prednisone 10 MG tablet 10 mg PO DAILY Qty: 30 RF: 0 Referrals / Follow Up: Leonie Castillo MD [Primary Care Provider] - 02/16/21 7:40 am Disposition Disposition (needs filled in before D/C Order can be placed): Home, self care
--- NOTE | 2021-02-13 16:08 | CASEMGMT ---
CHARMAINE VALENCIA Discharge Follow-Up Phone Call. Anastasiia: 12 Strata: 3 Discharge Date: 02/10/21 Adm Dx: COPD Exac Call to pt to inquire about how she has been doing since being discharged from the hospital. Pt stated, I'm doing just fine. I did get the oxygen machine. Thank everyone for me that is there, b/c [facility] is just awesome. Pt states she was able to diamond picker the new prescriptions from the pharmacy. Medications reviewed w/pt at this time and pt voices good understanding. She states she did get the Nicotine patches, which she paid $25 for d/t insurance did not cover. She states they gave her 8 patches and she is to return to diamond picker the other 6. Pt stated, I started to smoke a cigarette and then started to cough, so I quit. CHARMAINE VALENCIA instructed pt on the dangers in smoking while wearing the Nicotine patch and she states she is aware. She states her assistant men's soccer coach from [facility] came to her home and saw the pack of cigarettes there and took them so I can't smoke them now. Discussed appt w/Dr Castillo on 02/16 @ 0740. Pt states she was not aware of this appt and she will call to schedule a cab for that AM to pick her up @ 0715 on as soon as she gets off of the phone with this CHARMAINE VALENCIA. Pt inquires if her insurance will pay for Chux and for Ensure. CHARMAINE VALENCIA made her aware they will not cover for Chux, but they may for the Ensure, with a script from her physician and advised her to f/u with her insurance co and angel/Dr Castillo re: same. She voices understanding. She denies having any other questions, concerns, or needs and voices appreciation for the follow-up phone call. Jumana KRISHNAMURTHY RN, CM
== END 2021-02-10 16:21 | disposition home or self-care (01) | DRG 190 ==
LOC: ED 02-08 01:07 → PCU 02-08 02:01
PROVIDERS: Physician Assistant; Admitting Provider Hospitalist; Emergency Provider Emergency Medicine; PCP Internal Medicine; Visit Provider Internal Medicine
DX: J44.1 Chronic obstructive pulmonary disease with (acute) exacerbation (principal); J18.9 Pneumonia, unspecified organism; J44.0 Chronic obstructive pulmonary disease with (acute) lower respiratory infection; R79.89 Other specified abnormal findings of blood chemistry; G89.29 Other chronic pain; I10 Essential (primary) hypertension; M51.26 Other intervertebral disc displacement, lumbar region; I73.9 Peripheral vascular disease, unspecified; Z79.82 Long term (current) use of aspirin; Z86.718 Personal history of other venous thrombosis and embolism; Z99.81 Dependence on supplemental oxygen; Z86.19 Personal history of other infectious and parasitic diseases; Z79.899 Other long term (current) drug therapy; Z87.891 Personal history of nicotine dependence
CPT/HCPCS: 36415; 71045; 71275; 80048; 80053; 84484; 85025; 85379; 87040; 87426; 87633; 93005; 94640; 94667; 94668; 97161; 97166; 97530; 97535; 99251; 99285; J7050; Q9967; A4216; G0463; J2405

== ENCOUNTER 2021-04-20 15:19 | Emergency (ER) | payer MEDICARE, MEDICAID, SELFPAY ==
[2021-02-08 02:49] VITALS: BMI 26.7
[2021-04-20 15:20] VITALS: BP 132/59; PULSE 82; RESP 18; TEMP 36.3; O2SAT 98; BMI 29.2
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
[2021-04-20] MEDS: HYDROcodone Bitartrate/Apap 5/325 Tablet PO (15:32)
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
[2021-04-20 16:29] LABS: Mucous, Urine 0 SEEN /hpf (<or=2+); Red Blood Cells-Urine 0 SEEN /hpf (0-5)
[2021-04-20 16:34] LABS: Color, Urine Yellow (Yellow); Glucose, Dipstick Normal (Normal); Ketone-Dipstick Negative (Negative); Leukocyte Esterase-Dipstick 25 /ul (Negative); Nitrite-Dipstick Negative (Negative); Occult Blood-Urine Negative /ul (Negative); Protein-Dipstick Negative (Negative); Specific Gravity, Urine 1.015 (1.002-1.030); Urine Bilirubin Dipstick Negative (Negative); Urine Clarity Sl. Cloudy (Clear); Urine Urobilinogen Normal (Normal)
[2021-04-20 17:02] LABS: Bacteria 1+ /hpf (None Seen); Squamous Epithelial Cells - UA 0-5 SEEN /hpf (5-10); White Blood Cells 0-5 SEEN /hpf (0-5)
== END 2021-04-20 16:55 | disposition home or self-care (01) ==
PROVIDERS: Emergency Provider Emergency Medicine; PCP Internal Medicine
DX: S30.0XXA Contusion of lower back and pelvis, initial encounter (principal); V03.10XA Pedestrian on foot injured in collision with car, pick-up truck or van in traffic accident, initial encounter; Y93.01 Activity, walking, marching and hiking; Y92.9 Unspecified place or not applicable; I10 Essential (primary) hypertension; F32.9 Major depressive disorder, single episode, unspecified; I73.9 Peripheral vascular disease, unspecified; J44.9 Chronic obstructive pulmonary disease, unspecified; Z86.718 Personal history of other venous thrombosis and embolism; Z79.82 Long term (current) use of aspirin; Z79.899 Other long term (current) drug therapy; F17.210 Nicotine dependence, cigarettes, uncomplicated
CPT/HCPCS: 72100; 72170; 81001; 99284; A4216

== ENCOUNTER 2022-07-30 12:32 | Emergency (ER) | payer MEDICARE, MEDICAID, SELFPAY ==
[2022-07-30 12:33] VITALS: BP 140/93; PULSE 98; RESP 16; TEMP 36.6; O2SAT 95; BMI 32.9
--- NOTE | 2022-07-30 13:50 | EKG12_ITS ---
Test Reason : Blood Pressure : / mmHG Vent. Rate : 069 BPM Atrial Rate : 069 BPM P-R Int : 132 ms QRS Dur : 072 ms QT Int : 334 ms P-R-T Axes : 078 080 -31 degrees QTc Int : 357 ms Normal sinus rhythm Nonspecific T wave abnormality : consider myocardial ischmia: inferior-lateral Abnormal ECG Confirmed by MARÍA CORTÉS, BRYANT ([id number]), material expeditor ANNABELLE HWANG ([id number]) on 08/01/2022 9:26:51 AM Referred By: CLIFF Confirmed By:BRYANT DANIEL MD
--- NOTE | 2022-07-30 13:51 | EDS_ITS ---
HPI History of Present Illness Chief Complaint: Shortness of Breath Informant: patient Narrative Narrative: 2-week history dyspnea productive cough with wheezing. History of COPD chronic oxygen to 3 L. States has appointment with pulmonology tomorrow. Chest dis comfort due to tightness and wheezing. Stop smoking this past January. No vomiting or diarrhea. No myalgias. Prior similar symptoms: Yes PFSH PFSH Medical History Alcohol abuse Chest pain Cocaine abuse COPD (chronic obstructive pulmonary disease) DVT (deep venous thrombosis) H/O cocaine abuse H/O ETOH abuse Hepatitis C HTN (hypertension) Lumbar herniated disc Pinched nerve in neck Presence of stent in artery Smoker Home Medications albuterol sulfate 90 mcg/actuation aerosol inhaler 2 puff IH Q4H PRN PRN Wheezing 08/26/20 [History Last Taken 08/26/20] aspirin 81 mg chewable tablet 81 mg PO DAILY BLOOD CLOT 08/26/20 [History Last Taken 09/12/20] cilostazol 100 mg tablet 100 mg PO BID blood flow 08/26/20 [History Last Taken 09/12/20] lisinopril 10 mg tablet 10 mg PO DAILY bp 08/26/20 [History Last Taken 09/12/20] oxybutynin chloride 5 mg tablet,extended release 24 hr 5 mg PO DAILY BLADDER 08/26/20 [History Last Taken 09/12/20] tizanidine 2 mg capsule 2 mg PO Q8 PRN Muscle Spasm 08/26/20 [History Last Taken 08/26/20] acetaminophen 325 mg tablet 650 mg PO Q6H PRN PRN pain 1-07/0908/29/20 [Rx Last Taken Unknown] meloxicam 7.5 mg tablet 7.5 mg PO DAILY Check with primary doctor #14 tabs 08/29/20 [Rx Last Taken 09/12/20] gabapentin 300 mg capsule 300 mg PO QHS nerve pain 09/12/20 [History Last Taken 09/11/20] trazodone 50 mg tablet 50 - 100 mg PO QHS sleep 09/13/20 [History Last Taken Unknown] guaifenesin 1,200 mg tablet, extended release 12 hr 1,200 mg PO BID ##14 09/15/20 [Rx Last Taken Unknown] atorvastatin 40 mg tablet 40 mg PO DAILY 02/07/21 [History Last Taken Unknown] fluticasone propionate 45 mcg-salmeterol 21 mcg/actuation HFA inhaler (Advair HFA) 2 puff inhalation BID #12 grams 02/10/21 [Rx Last Taken Unknown] nicotine 7 mg/24 hr daily transdermal patch (Nicoderm CQ) 1 patch transdermal Q24H #14 ea 02/10/21 [Rx Last Taken Unknown] oxycodone 5 mg capsule 5 mg PO Q8H PRN pain 5 days #15 caps 02/10/21 [Rx Last Taken Unknown] azithromycin 250 mg tablet 250 mg PO DAILY #4 tabs 07/30/22 [Rx Last Taken Unknown] prednisone 20 mg tablet 60 mg PO DAILY #12 tabs 07/30/22 [Rx Last Taken Unknown] Allergy/AdvReac Type Severity Reaction Status Date / Time No Known Allergies Allergy Verified 07/30/22 12:32 Family History Other Alcoholism Hypertension Surgical History Stenosis of artery of left lower extremity Social History household members: none Smoking Status: Current every day smoker tobacco type: cigarettes details: History of alcoholism substance use type: crack/cocaine ROS ROS ED Constitutional Constitutional ED: Denies chills, fever(s) or sweats Eyes Eyes: Denies change in vision ENT ENT ED: Denies dysphagia or sore throat Cardiovascular Cardiovascular: Denies chest pain, leg edema, palpitations or racing heartbeat Respiratory/Chest Respiratory/Chest: Reports cough, dyspnea and dyspnea on exertion Gastrointestinal Gastrointestinal: Denies abdominal pain, diarrhea, nausea or vomiting Genitourinary Genitourinary ED: Denies dysuria, hematuria or urinary frequency Musculoskeletal Musculoskeletal: Denies back pain, extremity pain or neck pain Integumentary Denies rash or wounds Neurologic Neurologic: Denies headache(s), paresthesias or weakness EXAM Physical Exam Const Vital Signs: 07/30/22 12:33 07/30/22 14:03 07/30/22 14:10 Temperature 97.8 F Temperature Source Temporal Pulse Rate 98 79 Respiratory Rate 16 20 H Respiratory Effort Non-Labored Short of Breath Respiratory Depth Normal Respiratory Pattern Normal Blood Pressure 140/93 H Blood Pressure Mean 108 Pulse Ox 95 95 Oxygen Delivery Method Nasal Cannula Nasal Cannula Nasal Cannula Oxygen Flow Rate (L/min) 3 3 07/30/22 14:34 07/30/22 15:57 07/30/22 13:50 Temperature Temperature Source Pulse Rate 98 Respiratory Rate 20 H 18 Respiratory Effort Respiratory Depth Respiratory Pattern Normal Blood Pressure Blood Pressure Mean Pulse Ox 97 Oxygen Delivery Method Room Air Oxygen Flow Rate (L/min) Positive well nourished and well developed Constitutional Narrative: 3 L nasal cannula no respiratory distress speaking in full sentences. General Appearance ED: well developed and NAD HEENT Reports moist mucous membranes normocephalic and atraumatic Eyes PERRL, EOMs intact bilaterally and conjunctivae normal General Eye ED: Yes normal appearance of both eyes Neck no lymphadenopathy and supple General: Negative for tenderness Chest Wall Chest: Negative for tenderness Resp Resp Narrative: Diminished breath sounds at the bases. Effort and Inspection: symmetric chest movement; Negative for respiratory distress Cardio regular rate, regular rhythm and no murmurs Peripheral Pulses: pulses 2+ throughout GI normal to inspection, nondistended, normoactive bowel sounds and non-tender Palpation: Negative for guarding or rebound tenderness present Back/Spine no CVA tenderness and no thoracic nor lumbar tenderness Extremity normal to inspection General Extremety ED: Negative for edema or tenderness General Extremity: Negative for edema Neuro oriented x3 and no sensory deficits noted Sensorium / Orientation: awake and alert Skin no rashes or lesions noted and no wounds MDM MDM MDM Narrative Medical decision making narrative: Patient is stable on her baseline nasal cannula. She is in no respiratory distress mild diminished breath sounds in the bases. COPD history new produc tive cough with reported wheezing. Aerosol treatment given along with steroids started. Two-view chest x-ray reviewed by myself and read by radiology negative for acute process labs are stable. EKG is nonspecific findings in V6 chronic T wave inversions in inferior leads. COVID testing negative. Reevaluation clinically subjectively improved symptoms. She states at baseline even with well she does not ambulate far distances. Did not want to try. She has a pulmonary appointment tomorrow. She is treated according to golds criteria with antibiotic started. Zithromax started. Additional 4 days of steroids antibiotic sent to her pharmacy. Return precautions. All questions were answered. Lab Data Attestation: I reviewed the patient's lab results. Labs: Laboratory Results - last 24 hr 07/30/22 07/30/22 14:24 14:24 WBC 6.1 RBC 4.70 Hgb 14.1 Hct 42.7 MCV 90.9 MCH 30.0 MCHC 33.0 RDW Std Deviation 44.6 H RDW Coeff of Oleg 13.3 Plt Count 245 MPV 10.3 Immature Gran % (Auto) 0.300 Neut % (Auto) 45.4 L Lymph % (Auto) 39.5 [place] % (Auto) 7.2 Eos % (Auto) 6.9 H Baso % (Auto) 0.7 Absolute Neuts (auto) 2.8 Absolute Lymphs (auto) 2.42 Nucleated RBC % 0 Sodium 140 Potassium 3.9 Chloride 106 Carbon Dioxide 30.0 Anion Gap 4 L BUN 17 Creatinine 0.99 Estim Creat Clear Calc 52.33 Est GFR (MDRD) Af Amer 72 Est GFR (MDRD) Non-Af 59 L BUN/Creatinine Ratio 17.1 Glucose 100 Calcium 9.8 Radiography Diagnostic Testing: Clinical Impression(s) from Imaging Studies Chest X-Ray 07/30/22 15:20 IMPRESSION: Hyperinflation. Mild increased markings in the right middle lobe and lingular segment of the left upper lobe suggestive of scarring. Electronically Signed: Anthony Perez MD at 15:41 EDT , EKG Initial EKG: Attestation: I personally reviewed and interpreted this EKG as follows: Comments: Sinus rate of 69, no ST changes or T wave inversions inferior leads with some similar to January 2021. New T wave version V6, is nonspecific. Discharge Plan Triage Chief Complaint: Shortness of Breath ED Provider: Lucas Marshall Dx/Rx/DC Orders Clinical Impression: COPD exacerbation, Acute dyspnea Instructions: Discharge Instructions: COPD Prescriptions: New azithromycin [azithromycin] 250 mg tablet 250 mg PO DAILY Qty: 4 0RF prednisone 20 mg tablet 60 mg PO DAILY Qty: 12 0RF Discontinued prednisone 20 mg tablet 40 mg PO DAILY Qty: 10 0RF levofloxacin 500 mg tablet 500 mg PO DAILY Qty: 5 0RF No Action cilostazol 100 MG tablet 100 mg PO BID lisinopril 10 MG tablet 10 mg PO DAILY oxybutynin chloride 5 MG tablet extended release 24hr 5 mg PO DAILY aspirin 81 MG tablet,chewable 81 mg PO DAILY Label Comments: Take 1 tablet by mouth once daily. albuterol sulfate 18 GM HFA aerosol inhaler 2 puff IH Q4H PRN PRN (Reason: Wheezing) Label Comments: Inhale 2 Puffs as instructed every 4 hours as needed. tizanidine 2 MG capsule 2 mg PO Q8 PRN (Reason: Muscle Spasm) acetaminophen 325 MG tablet 650 mg PO Q6H PRN PRN (Reason: pain 1-07/09) 0RF meloxicam 7.5 MG tablet 7.5 mg PO DAILY Qty: 14 0RF gabapentin 300 MG capsule 300 mg PO QHS trazodone 50 MG tablet 50 - 100 mg PO QHS guaifenesin 1,200 MG tablet extended release 12hr 1,200 mg PO BID Qty: 14 0RF atorvastatin 40 mg tablet 40 mg PO DAILY Label Comments: Take 1 tablet by mouth once daily. Advair HFA 45-21 mcg/actuation HFA aerosol inhaler 2 puff inhalation BID Qty: 12 0RF oxycodone 5 mg capsule 5 mg PO Q8H PRN (Reason: pain) 5 Days Qty: 15 0RF nicotine [Nicoderm CQ] 7 mg/24 hr patch 24 hour 1 patch transdermal Q24H Qty: 14 0RF Primary Care Provider: Leonie Castillo Referrals: Leonie Castillo MD [Primary Care Provider] - 1 Week Activity Restrictions/Additional Instructions: Take antibiotic and steroid as prescribed. Next dose tomorrow. Keep yoUr pulmonology appointment tomorrow. COVID-negative chest x-ray negative labs are stable. return if any worsening symptoms. Disposition Disposition: Home, Self Care Discharge Date/Time: 07/30/22 16:06
[2022-07-30 14:03] VITALS: PULSE 79; RESP 20; O2SAT 95
[2022-07-30 14:10] VITALS: O2SAT 96
[2022-07-30] MEDS: MethylPREDNISolone 125 MG/2 ML Vial IV (14:21)
[2022-07-30 14:34] VITALS: PULSE 98; RESP 20
[2022-07-30] MEDS: Ipratropium/Albuterol Sulfate 3 ML AMPUL.NEB INHALATION (14:34)
[2022-07-30 14:39] LABS: Absolute Lymphocyte Count 2.42 X10^3/uL (0.83-4.51); Absolute Neutrophil Count 2.8 X10^3/uL (2.0-7.7); Basophil# 0.04 X10^3/uL; Basophil% 0.7 % (0-1); Eosinophil# 0.42 X10^3/uL; Eosinophils% 6.9 % (0-5); Hematocrit 42.7 % (37-47); Hemoglobin 14.1 g/dL (12.0-15.0); Lymphocyte # 2.42 X10^3/ul (0.83-4.51); Lymphocyte % 39.5 % (19-41); Mean Corpuscular Volume 90.9 fL (81-99); Mean Platelet Vol. 10.3 fl (6.2-12.0); Monocyte# 0.44 X10^3/uL; Monocyte% 7.2 % (0-10); NRBC Flagged by Analyzer 0 % (0-5); Neutrophil # 2.78 X10^3/uL (2.7-7.7); Neutrophil % 45.4 % (47-70); Platelet Count 245 K/mm3 (150-450); RBC Distribution Width CV 13.3 % (11.6-14.6); RBC Distribution Width SD 44.6 fl (35.1-43.9); White Blood Count 6.1 K/mm3 (4.4-11.0)
[2022-07-30 14:57] LABS: Anion Gap 4 (5-15); BUN 17 mg/dL (7-18); BUN/Creat Ratio 17.1 RATIO (10-20); Calcium,Total 9.8 mg/dL (8.5-10.1); Chloride 106 mmol/L (98-107); Creatinine, Serum 0.99 mg/dL (0.55-1.02); EST Glomerular Filtration Rate 59 mL/min (>60); Est Glom Filt Rate - Afr Amer 72 mL/min (>60); Estimated Creatinine Clearance 52.33 ml/min; Glucose 100 mg/dL (74-106); Potassium 3.9 mmol/L (3.5-5.1); Sodium Level 140 mmol/L (136-145)
--- NOTE | 2022-07-30 15:20 | RAD_ITS ---
STUDY: X-RAY CHEST REASON FOR EXAM: Female, 67 years old. Cough'' TECHNIQUE: AP and lateral views of the chest. COMPARISON: Comparison is made with prior study dated 02/07/2021. FINDINGS: EKG electrodes are seen. Hyperinflation. Mild increased markings in the right middle lobe and lingular segment of the left upper lobe suggestive of scarring. There is no demonstrated pleural abnormality. Normal size heart. Normal mediastinum and tea. Normal visualized pulmonary arteries. There is atherosclerotic calcification of the aortic arch with tortuosity. There are diffuse degenerative changes of the visualized thoracic spine. Normal visualized ribs, clavicles, and shoulders. There is no demonstrated abnormality of the visualized soft tissue structures of the upper abdomen. RAD/Chest PA and Lateral IMPRESSION: Hyperinflation. Mild increased markings in the right middle lobe and lingular segment of the left upper lobe suggestive of scarring. Electronically Signed: Anthony Perez MD at 15:41 EDT ,
[2022-07-30] MEDS: Azithromycin 250 MG Tablet 500 MG PO (15:50)
[2022-07-30 15:57] VITALS: RESP 18; O2SAT 97
== END 2022-07-30 16:06 | disposition home or self-care (01) ==
PROVIDERS: Emergency Provider Emergency Medicine; PCP Internal Medicine; Visit Provider Emergency Medicine
DX: J44.1 Chronic obstructive pulmonary disease with (acute) exacerbation (principal); F17.210 Nicotine dependence, cigarettes, uncomplicated; I10 Essential (primary) hypertension; Z20.822 Contact with and (suspected) exposure to COVID-19; R06.00 Dyspnea, unspecified; Z99.81 Dependence on supplemental oxygen; Z79.52 Long term (current) use of systemic steroids
CPT/HCPCS: 71046; 80048; 85025; 87811; 93005; 94640; 96374; 99285; A4216

== ENCOUNTER 2022-09-19 12:20 | Outpatient (RCR) | payer MEDICARE, MEDICAID, SELFPAY | END 2022-09-19 14:55 | disposition home or self-care (01) | LOC: PT 12:20 | PROVIDERS: PCP Internal Medicine; Referring Provider Internal Medicine; Visit Provider Internal Medicine | DX: J44.9 Chronic obstructive pulmonary disease, unspecified (principal); Z99.81 Dependence on supplemental oxygen; J96.11 Chronic respiratory failure with hypoxia; I27.20 Pulmonary hypertension, unspecified; R79.89 Other specified abnormal findings of blood chemistry ==

== ENCOUNTER 2022-10-22 15:57 | Emergency (ER) | payer MEDICARE, MEDICAID, SELFPAY ==
[2022-10-22 15:58] VITALS: BP 122/86; PULSE 85; RESP 18; TEMP 36.1; O2SAT 100; BMI 33.9
--- NOTE | 2022-10-22 16:41 | EDS_ITS ---
HPI History of Present Illness Chief Complaint: Other, Pain/Inj Narrative Narrative: 67-year-old female past medical history of COPD, wears oxygen at home, was brought in by her 180 counselor/friend because of left neck pain. She has history of pinched nerve in her neck and she used to receive injections she states. Over the last few months, she has left neck pain but she also states that she has muscle spasms in her hands and feet bilaterally. No fevers or chills. She states when her hands lock up she is not sure if she is having a stroke. She denies any headache, no other symptoms. She presents because of the left neck pain that radiates down her left arm at times. PFSH PFSH Medical History Alcohol abuse Chest pain Chronic hepatitis C without hepatic coma Cocaine abuse COPD (chronic obstructive pulmonary disease) DVT (deep venous thrombosis) H/O cocaine abuse H/O ETOH abuse Hepatitis C HTN (hypertension) Lumbar herniated disc Pinched nerve in neck Presence of stent in artery Smoker Home Medications albuterol sulfate 90 mcg/actuation aerosol inhaler 2 puff IH Q4H PRN PRN Wheezing 08/26/20 [History Last Taken 08/26/20] aspirin 81 mg chewable tablet 81 mg PO DAILY BLOOD CLOT 08/26/20 [History Last Taken 09/12/20] cilostazol 100 mg tablet 100 mg PO BID blood flow 08/26/20 [History Last Taken 09/12/20] lisinopril 10 mg tablet 10 mg PO DAILY bp 08/26/20 [History Last Taken 09/12/20] oxybutynin chloride 5 mg tablet,extended release 24 hr 5 mg PO DAILY BLADDER 08/26/20 [History Last Taken 09/12/20] tizanidine 2 mg capsule 2 mg PO Q8 PRN Muscle Spasm 08/26/20 [History Last Taken 08/26/20] acetaminophen 325 mg tablet 650 mg PO Q6H PRN PRN pain 1-07/0908/29/20 [Rx Last Taken Unknown] meloxicam 7.5 mg tablet 7.5 mg PO DAILY Check with primary doctor #14 tabs 08/29/20 [Rx Last Taken 09/12/20] gabapentin 300 mg capsule 300 mg PO QHS nerve pain 09/12/20 [History Last Taken 09/11/20] trazodone 50 mg tablet 50 - 100 mg PO QHS sleep 09/13/20 [History Last Taken Unknown] guaifenesin 1,200 mg tablet, extended release 12 hr 1,200 mg PO BID ##14 09/15/20 [Rx Last Taken Unknown] atorvastatin 40 mg tablet 40 mg PO DAILY 02/07/21 [History Last Taken Unknown] fluticasone propionate 45 mcg-salmeterol 21 mcg/actuation HFA inhaler (Advair HFA) 2 puff inhalation BID #12 grams 02/10/21 [Rx Last Taken Unknown] nicotine 7 mg/24 hr daily transdermal patch (Nicoderm CQ) 1 patch transdermal Q24H #14 ea 02/10/21 [Rx Last Taken Unknown] oxycodone 5 mg capsule 5 mg PO Q8H PRN pain 5 days #15 caps 02/10/21 [Rx Last Taken Unknown] azithromycin 250 mg tablet 250 mg PO DAILY #4 tabs 07/30/22 [Rx Last Taken Unknown] prednisone 20 mg tablet 60 mg PO DAILY #12 tabs 07/30/22 [Rx Last Taken Unknown] furosemide 20 mg tablet 20 mg PO DAILY 10/17/22 [History Last Taken Unknown] potassium chloride 10 mEq capsule,extended release 10 meq PO DAILY 10/17/22 [History Last Taken Unknown] Allergy/AdvReac Type Severity Reaction Status Date / Time No Known Allergies Allergy Verified 10/22/22 15:58 Family History Other Alcoholism Hypertension Surgical History Stenosis of artery of left lower extremity Social History household members: none Smoking Status: Former smoker details: History of alcoholism substance use type: crack/cocaine ROS ROS ED ROS Narrative Constitutional: No fever, no chills. HEENT: No sore throat. Positive neck pain. No loss of vision. No rhinorrhea. Cardiovascular: No chest pain. No palpitations. No pedal edema. Respiratory: No cough, no shortness of breath. Abdominal: No abdominal pain. No nausea. No vomiting. Genitourinary: No dysuria. No hematuria. Musculoskeletal: No myalgias. No arthralgias. States has muscle spasms in hands and feet bilaterally. Occasional left arm pain. Neurologic: No headaches. No dizziness. No lightheadedness. Skin: No rash. No change in color. Psychiatric: No depression. No anxiety. EXAM Physical Exam Narrative Exam Narrative: Afebrile. Vital signs noted. HEENT: Normocephalic. Atraumatic. PERRL, EOMI. Neck soft and supple. No point tenderness or step off. Cardiovascular: Regular rate and rhythm. No murmurs, rubs, or gallops appreciated. Respiratory: No tachypnea. Lungs clear to auscultation bilaterally. Gastrointestinal: Abdomen soft, nontender, with normoactive bowel sounds. No rebound or guarding. Neurological: Awake. Alert. Nonfocal, nonlateralizing. Able to raise arms above head without difficulty. Skin: No rash. Normal color. No pallor. Musculoskeletal: No pedal edema. Full range of motion extremities. Const Vital Signs: 10/22/22 15:58 10/22/22 16:36 Temperature 97 F L Temperature Source Temporal Pulse Rate 85 Respiratory Rate 18 Respiratory Effort Normal Non-Labored Respiratory Pattern Normal Blood Pressure 122/86 H Blood Pressure Mean 98 Pulse Ox 100 Oxygen Delivery Method Room Air MDM MDM MDM Narrative Medical decision making narrative: I do feel that the patient is having exacerbation of her chronic pinched nerve in her neck/cervical radiculopathy. I do not feel that CT of the brain is indicated. She was reassured that her bilateral hand and feet cramping is not secondary to stroke. I will check her CBC and BMP to look for an electrolyte imbalance. She was told that she will more than likely need to follow-up with her primary care provider or if she was getting injections in her neck for a pinched nerve with that physician even if it is pain management. X-rays were obtained of the cervical spine, interpreted by myself. My interpretation shows no evidence of fracture, there are degenerative changes. I reviewed the radiology report and they confirm. I reviewed her laboratory work. She has normal white count of 6.3, normal hemoglobin of 14.1, although her potassium is slightly elevated at 5.4 I think is nonspecific, I do not feel that she needs to be treated for hyperkalemia. She has a creatinine slightly elevated at 1.12, with a BUN of 19. Glucose normal at 96 with a normal anion gap of 6. As this is a chronic neck pain, I feel she be discharged safely home to use [id number] medications. She was told that narcotic pain medication should come from her primary care provider as this is more of a chronic problem. Return instructions to the emergency department were reviewed. Disposition is discharged home in stable condition. Lab Data Attestation: I reviewed the patient's lab results. Labs: Laboratory Results - last 24 hr 10/22/22 10/22/22 17:10 17:10 WBC 6.3 RBC 4.77 Hgb 14.1 Hct 43.1 MCV 90.4 MCH 29.6 MCHC 32.7 RDW Std Deviation 45.9 H RDW Coeff of Oleg 13.9 Plt Count 244 MPV 10.1 Immature Gran % (Auto) 0.200 Neut % (Auto) 46.3 L Lymph % (Auto) 40.1 Jackson % (Auto) 7.0 Eos % (Auto) 5.9 H Baso % (Auto) 0.5 Absolute Neuts (auto) 2.9 Absolute Lymphs (auto) 2.52 Nucleated RBC % 0 Sodium 138 Potassium 5.4 H Chloride 110 H Carbon Dioxide 22.0 Anion Gap 6 BUN 19 H Creatinine 1.12 H Estim Creat Clear Calc 46.25 Est GFR (MDRD) Af Amer 63 Est GFR (MDRD) Non-Af 52 L BUN/Creatinine Ratio 17.0 Glucose 96 Calcium 9.2 Radiography Diagnostic Testing: Clinical Impression(s) from Imaging Studies Cervical Spine X-Ray 10/22/22 17:50 IMPRESSION: Mild degenerative change. No acute fracture or other significant bony pathology Electronically Signed: Cole Christine MD at 18:09 EST Reading Location ID and State: [facility] / [place] , Service support , Discharge Plan Triage Chief Complaint: Other, Pain/Inj Other Complaint: Numb/Ting Upper Extremity Injury ED Provider: Ganga Kingsley Dx/Rx/DC Orders Clinical Impression: Cervical radiculopathy, Neck pain, chronic Instructions: ED Neck Pain, ED Radiculopathy, Cervical Prescriptions: No Action furosemide 20 mg tablet 20 mg PO DAILY potassium chloride 10 mEq capsule, extended release 10 meq PO DAILY cilostazol 100 MG tablet 100 mg PO BID lisinopril 10 MG tablet 10 mg PO DAILY oxybutynin chloride 5 MG tablet extended release 24hr 5 mg PO DAILY aspirin 81 MG tablet,chewable 81 mg PO DAILY Label Comments: Take 1 tablet by mouth once daily. albuterol sulfate 18 GM HFA aerosol inhaler 2 puff IH Q4H PRN PRN (Reason: Wheezing) Label Comments: Inhale 2 Puffs as instructed every 4 hours as needed. tizanidine 2 MG capsule 2 mg PO Q8 PRN (Reason: Muscle Spasm) acetaminophen 325 MG tablet 650 mg PO Q6H PRN PRN (Reason: pain 1-07/09) 0RF meloxicam 7.5 MG tablet 7.5 mg PO DAILY Qty: 14 0RF gabapentin 300 MG capsule 300 mg PO QHS trazodone 50 MG tablet 50 - 100 mg PO QHS guaifenesin 1,200 MG tablet extended release 12hr 1,200 mg PO BID Qty: 14 0RF atorvastatin 40 mg tablet 40 mg PO DAILY Label Comments: Take 1 tablet by mouth once daily. Advair HFA 45-21 mcg/actuation HFA aerosol inhaler 2 puff inhalation BID Qty: 12 0RF oxycodone 5 mg capsule 5 mg PO Q8H PRN (Reason: pain) 5 Days Qty: 15 0RF nicotine [Nicoderm CQ] 7 mg/24 hr patch 24 hour 1 patch transdermal Q24H Qty: 14 0RF azithromycin [azithromycin] 250 mg tablet 250 mg PO DAILY Qty: 4 0RF prednisone 20 mg tablet 60 mg PO DAILY Qty: 12 0RF Primary Care Provider: Leonie Castillo Referrals: Leonie Castillo MD [Primary Care Provider] - As soon as possible Disposition Disposition: Home, Self Care
[2022-10-22 17:26] LABS: Absolute Lymphocyte Count 2.52 X10^3/uL (0.83-4.51); Absolute Neutrophil Count 2.9 X10^3/uL (2.0-7.7); Basophil# 0.03 X10^3/uL; Basophil% 0.5 % (0-1); Eosinophil# 0.37 X10^3/uL; Eosinophils% 5.9 % (0-5); Hematocrit 43.1 % (37-47); Hemoglobin 14.1 g/dL (12.0-15.0); Lymphocyte # 2.52 X10^3/ul (0.83-4.51); Lymphocyte % 40.1 % (19-41); Mean Corp Hgb Conc 32.7 g/dL (32-36); Mean Corpuscular Hgb 29.6 pg (27.0-32.0); Mean Corpuscular Volume 90.4 fL (81-99); Mean Platelet Vol. 10.1 fl (6.2-12.0); Monocyte# 0.44 X10^3/uL; NRBC Flagged by Analyzer 0 % (0-5); Neutrophil # 2.91 X10^3/uL (2.7-7.7); Neutrophil % 46.3 % (47-70); Platelet Count 244 K/mm3 (150-450); RBC Distribution Width CV 13.9 % (11.6-14.6); RBC Distribution Width SD 45.9 fl (35.1-43.9); Red Blood Count 4.77 M/mm3 (4.2-5.4); White Blood Count 6.3 K/mm3 (4.4-11.0)
[2022-10-22 17:46] LABS: Anion Gap 6 (5-15); BUN 19 mg/dL (7-18); Calcium,Total 9.2 mg/dL (8.5-10.1); Chloride 110 mmol/L (98-107); Creatinine, Serum 1.12 mg/dL (0.55-1.02); EST Glomerular Filtration Rate 52 mL/min (>60); Est Glom Filt Rate - Afr Amer 63 mL/min (>60); Estimated Creatinine Clearance 46.25 ml/min; Glucose 96 mg/dL (74-106); Potassium 5.4 mmol/L (3.5-5.1); Sodium Level 138 mmol/L (136-145)
--- NOTE | 2022-10-22 17:50 | RAD_ITS ---
STUDY: X-RAY - CERVICAL SPINE REASON FOR EXAM: Female, 67 years old. pain TECHNIQUE: 3 view(s) of the cervical spine were obtained. COMPARISON: None FINDINGS: Normal anterior atlantoaxial articulation. Normal odontoid process. Normal cervical lordosis. Normal vertebral bodies . Narrowed C5-6 and C6-7 disc spaces with endplate spurring . Normal visualized intervertebral neuroforamina. The soft tissue structures are unremarkable. RAD/Cerv Spine 2 or 3 Views IMPRESSION: Mild degenerative change. No acute fracture or other significant bony pathology Electronically Signed: Cole Christine MD at 18:09 EST ,
== END 2022-10-22 18:39 | disposition home or self-care (01) ==
PROVIDERS: Emergency Provider Emergency Medicine; PCP Internal Medicine; Visit Provider Emergency Medicine
DX: M54.12 Radiculopathy, cervical region (principal); J44.9 Chronic obstructive pulmonary disease, unspecified; G89.29 Other chronic pain; I10 Essential (primary) hypertension; Z99.81 Dependence on supplemental oxygen; Z79.899 Other long term (current) drug therapy; Z87.891 Personal history of nicotine dependence
CPT/HCPCS: 72040; 80048; 85025; 99282; A4216

== ENCOUNTER 2023-01-14 15:49 | Outpatient (CLI) | payer MEDICARE, MEDICAID, SELFPAY ==
[2023-01-14 16:25] LABS: Absolute Lymphocyte Count 1.72 X10^3/uL (0.83-4.51); Absolute Neutrophil Count 3.7 X10^3/uL (2.0-7.7); Basophil# 0.02 X10^3/uL; Basophil% 0.3 % (0-1); Eosinophil# 0.24 X10^3/uL; Hematocrit 44.9 % (37-47); Hemoglobin 14.6 g/dL (12.0-15.0); Lymphocyte # 1.72 X10^3/ul (0.83-4.51); Lymphocyte % 28.6 % (19-41); Mean Corp Hgb Conc 32.5 g/dL (32-36); Mean Corpuscular Volume 89.3 fL (81-99); Mean Platelet Vol. 10.3 fl (6.2-12.0); Monocyte# 0.33 X10^3/uL; Monocyte% 5.5 % (0-10); NRBC Flagged by Analyzer 0 % (0-5); Neutrophil % 61.6 % (47-70); Platelet Count 244 K/mm3 (150-450); RBC Distribution Width CV 14.1 % (11.6-14.6); RBC Distribution Width SD 46.4 fl (35.1-43.9); Red Blood Count 5.03 M/mm3 (4.2-5.4)
[2023-01-14 16:34] LABS: Erythrocyte Sedimentation Rate 19 mm/hr (0-30)
[2023-01-14 16:36] LABS: International Normalized Ratio 1.1; Prothrombin Time (Protime)PT. 14.2 SECONDS (11.7-14.9)
[2023-01-14 18:33] LABS: HIV - WCH Non-Reactive (Nonreactive)
[2023-01-14 19:46] LABS: ALB/GLOB Ratio 1.2 RATIO (0.9-2.4); AST(SGOT) 21 U/L (15-37); Alanine Aminotransfer ALT/SGPT 24 U/L (13-56); Alkaline Phosphatase 94 U/L (45-117); Anion Gap 7 (5-15); BUN 20 mg/dL (7-18); BUN/Creat Ratio 19.2 RATIO (10-20); CRP < 2.90 mg/L (0.0-3.0); Calcium,Total 9.2 mg/dL (8.5-10.1); Chloride 109 mmol/L (98-107); Creatinine, Serum 1.04 mg/dL (0.55-1.02); EST Glomerular Filtration Rate 56 mL/min (>60); Est Glom Filt Rate - Afr Amer 68 mL/min (>60); Ferritin 67 ng/mL (8-252); Globulin 3.3 g/dL (2.2-4.2); Glucose 146 mg/dL (74-106); LDH 213 U/L (84-246); Potassium 3.9 mmol/L (3.5-5.1); Protein, Total 7.3 g/dL (6.4-8.2); Sodium Level 139 mmol/L (136-145)
[2023-01-15 07:28] LABS: Hepatitis C Antibody REACTIVE (Nonreactive)
[2023-01-16 14:09] LABS: Anti-Centromere B Ab <0.2 AI (0.0-0.9); Anti-Chromatin <0.2 AI (0.0-0.9); Anti-Jo <0.2 AI (0.0-0.9); Anti-Mitochondrial AB <20.0 Units (0.0-20.0); Anti-Scleroderma-70 AB <0.2 AI (0.0-0.9); Anti-dsDNA Ab 3 IU/mL (0-9); RNP Ab <0.2 AI (0.0-0.9); SJOGREN'S Anti-SS-A test < 0.2 AI (0.0-0.9); SJOGREN'S Anti-SS-B test < 0.2 AI (0.0-0.9); Smith Ab <0.2 AI (0.0-0.9)
== END 2023-01-14 23:59 | disposition home or self-care (01) ==
PROVIDERS: PCP Internal Medicine; Referring Provider Internal Medicine Gastroenterology; Visit Provider Internal Medicine Gastroenterology
DX: B19.20 Unspecified viral hepatitis C without hepatic coma (principal); B15.9 Hepatitis A without hepatic coma
CPT/HCPCS: 36415; 80053; 80074; 82140; 82164; 82390; 82525; 82728; 83010; 83516; 83615; 85025; 85610; 85652; 86140; 86225; 86235; 86256; 86703; 86708; 86709; 86803; 87522; 87902

== ENCOUNTER → 2023-01-29 | Outpatient (CLI) | payer MEDICARE, MEDICAID, SELFPAY | END | disposition home or self-care (01) | LOC: PSN 12:51 | PROVIDERS: PCP Internal Medicine; Referring Provider Internal Medicine; Visit Provider Internal Medicine | DX: J44.9 Chronic obstructive pulmonary disease, unspecified (principal) | CPT/HCPCS: 94667 ==

== ENCOUNTER 2023-02-15 14:51 | Emergency (ER) | payer MEDICARE, MEDICAID, SELFPAY ==
[2023-02-15 14:53] VITALS: BP 151/121; PULSE 83; RESP 28; TEMP 36.7; O2SAT 97; BMI 36.6
--- NOTE | 2023-02-15 15:09 | RAD_ITS ---
STUDY: X-RAY - LEFT WRIST REASON FOR EXAM: Female, 68 years old. fall TECHNIQUE: 3 view(s) of the wrist were obtained. COMPARISON: None. FINDINGS: There is comminuted nondisplaced fracture involving the distal radial metaphysis. Fracture is intra-articular. Minimal impaction. No significant angulation. No displaced fragments. No radiocarpal dislocation. Old nondisplaced fracture of the tip of the ulnar styloid. Nonspecific soft tissue swelling. RAD/Wrist min 3 Views IMPRESSION: Comminuted nondisplaced intra-articular fractures of the distal radial metaphysis. Electronically Signed: Gary Abrams MD at 16:41 EDT ,
--- NOTE | 2023-02-15 15:09 | RAD_ITS ---
STUDY: X-RAY - LEFT SHOULDER REASON FOR EXAM: Female, 68 years old. fall TECHNIQUE: 2 view(s) of the shoulder. COMPARISON: None. FINDINGS: Normal glenohumeral articulation. Normal acromioclavicular joint. Normal acromion. Normal humeral head and visualized proximal humerus. The soft tissue structures are unremarkable. There is no demonstrated fracture. Normal visualized pulmonary apex. RAD/Shoulder min 2 Views IMPRESSION: Normal x-ray examination of the shoulder. Electronically Signed: Gary Abrams MD at 16:40 EDT ,
--- NOTE | 2023-02-15 15:12 | ED.VIS.FALL ---
HPI HPI - Fall History of Present Illness Chief Complaint: Fall Informant: patient Occured/Mechanism Occurred: Today Narrative Narrative: Patient presents after a fall in the parking lot. She did come to the hospital for what she thought was preop clearance for upcoming shoulder surgery. She states they were pushing her out to her car any wheelchair. They did not move the foot pedals out of the way and when she got up she tripped over them and fell forward. She has abrasion to her lip. She has pain to her left shoulder and left wrist along with her left chest wall. PFSH [facility] Medical History Alcohol abuse Chest pain Chronic hepatitis C without hepatic coma Cocaine abuse COPD (chronic obstructive pulmonary disease) DVT (deep venous thrombosis) H/O cocaine abuse H/O ETOH abuse HTN (hypertension) Lumbar herniated disc Pinched nerve in neck Presence of stent in artery Smoker Thyroid disorder Home Medications albuterol sulfate 90 mcg/actuation aerosol inhaler 2 puff IH Q4H PRN PRN Wheezing 08/26/20 [History Last Taken 08/26/20] aspirin 81 mg chewable tablet 81 mg PO DAILY BLOOD CLOT 08/26/20 [History Last Taken 09/12/20] lisinopril 10 mg tablet 10 mg PO DAILY bp 08/26/20 [History Last Taken 09/12/20] tizanidine 2 mg capsule 2 mg PO Q8 PRN Muscle Spasm 08/26/20 [History Last Taken 08/26/20] atorvastatin 40 mg tablet 40 mg PO DAILY 02/07/21 [History Last Taken Unknown] furosemide 20 mg tablet 20 mg PO DAILY 10/17/22 [History Last Taken Unknown] potassium chloride 10 mEq capsule,extended release 10 meq PO DAILY 10/17/22 [History Last Taken Unknown] budesonide 160 mcg-glycopyr 9 mcg-formot 4.8 mcg/actuation HFA inhaler (Breztri Aerosphere) 2 inh inhalation BID 02/08/23 [History Last Taken Unknown] etodolac 400 mg tablet 400 mg PO BID 02/08/23 [History Last Taken Unknown] gabapentin 300 mg capsule 300 mg PO TID nerve pain 02/08/23 [History Last Taken Unknown] ipratropium 0.5 mg-albuterol 3 mg (2.5 mg base)/3 mL nebulization soln 3 ml inhalation TID 02/08/23 [History Last Taken Unknown] meloxicam 15 mg tablet 15 mg PO DAILY 02/08/23 [History Last Taken Unknown] oxybutynin chloride 10 mg tablet,extended release 24 hr 10 mg PO DAILY 02/08/23 [History Last Taken Unknown] diclofenac sodium 1 % topical gel (Voltaren Arthritis Pain) 2 g topical BID PRN 02/15/23 [History Last Taken Unknown] oxycodone-acetaminophen 5 mg-325 mg tablet (Percocet) 1 tab PO Q6H PRN pain 3 days #14 tabs 02/15/23 [Rx Last Taken Unknown] Allergy/AdvReac Type Severity Reaction Status Date / Time No Known Allergies Allergy Verified 02/15/23 14:51 Family History Mother Hypertension Other Alcoholism Surgical History H/O vascular surgery Stenosis of artery of left lower extremity Social History household members: none Smoking Status: Former smoker how long ago did patient quit smoking: January 2022 alcohol intake: never substance use type: former substance user Date of last use: 03/2020 and crack/cocaine caffeine: Yes Type: carbonated beverages and coffee ROS ROS ED Constitutional Constitutional ED: Denies chills or fever(s) Eyes Eyes: Denies change in vision or discharge from eye(s) ENT ENT ED: Denies discharge from eye(s), rhinorrhea or sore throat Cardiovascular Cardiovascular: Denies chest pain Respiratory/Chest Respiratory/Chest: Denies cough or dyspnea Gastrointestinal Gastrointestinal: Denies abdominal pain, nausea or vomiting Genitourinary Genitourinary ED: Denies dysuria Musculoskeletal Musculoskeletal: Reports extremity pain; Denies back pain Integumentary Reports Abrasions; Denies rash Neurologic Neurologic: Denies headache(s) or weakness Psychiatric Psychiatric: Reports anxiety Allergic/Immunologic Allergic/Immunologic ED: Denies lip swelling or urticaria EXAM Physical Exam Const Vital Signs: 02/15/23 14:53 02/15/23 15:24 Temperature 98.0 F Temperature Source Oral Pulse Rate 83 Respiratory Rate 28 H Respiratory Effort Normal Respiratory Pattern Tachypnea Blood Pressure 151/121 H Blood Pressure Mean 131 Pulse Ox 97 Oxygen Delivery Method Nasal Cannula Positive well nourished and well developed General Appearance ED: well developed HEENT Reports normocephalic HEENT Narrative: Abrasion noted to the upper lip. Teeth are stable. No evidence of dental fracture. Eyes PERRL and EOMs intact bilaterally Neck supple Chest Wall inspection of chest normal and palpation of chest normal Chest Narrative: Patient reports left chest wall pain just beneath her left breast but no reproducible pain with palpation. Resp normal respiratory effort and clear to auscultation bilaterally Cardio regular rate and regular rhythm GI normal to inspection, nondistended, normoactive bowel sounds Palpation: soft Extremity Extremity Narrative: Tenderness location left shoulder and left wrist. Mild edema noted to the wrist. Able to wiggle fingers and has normal sensation and cap refill. Neuro oriented x3 and no sensory deficits noted Neuro Narrative: Decreased range of motion left upper extremity secondary to pain. Sensorium / Orientation: alert Psych mental status grossly normal Skin Skin Narrative: Lip abrasion as noted above. MDM MDM MDM Narrative Medical decision making narrative: Patient given morphine and Zofran for pain control. Patient sent for CT scan of the head and neck to evaluate for fracture, bleed, acute injury. Patient also sent for x-rays of the chest, left shoulder, and left wrist to evaluate for fracture. Radiography Diagnostic Testing: Clinical Impression(s) from Imaging Studies Shoulder X-Ray 02/15/23 15:09 IMPRESSION: Normal x-ray examination of the shoulder. Electronically Signed: Gary Abrams MD at 16:40 EDT , Wrist X-Ray 02/15/23 15:09 IMPRESSION: Comminuted nondisplaced intra-articular fractures of the distal radial metaphysis. Electronically Signed: Gary Abrams MD at 16:41 EDT , Brain CT 02/15/23 15:30 IMPRESSION: Normal unenhanced CT scan of the brain. Electronically Signed: Gary Abrams MD at 16:32 EDT , Cervical Spine CT 02/15/23 15:30 IMPRESSION: There is no definite acute fracture/dislocation. Degenerative changes. Electronically Signed: Gary Abrams MD at 16:37 EDT , Treatment and Re-Evaluation Narrative: CT scan of the head and C-spine reveal chronic changes with no acute findings. Chest x-ray per my interpretation reveals chronic changes with no evidence of obvious rib fracture. No pneumothorax. Radiology interpretation is reviewed. Left shoulder x-rays per my interpretation reveal no evidence of acute fracture or dislocation. Radiology interpretation is reviewed and agrees. Left wrist x-ray per my interpretation reveals a intra-articular fracture of the distal radius. No significant malalignment is noted at this time. Radiology interpretation is reviewed and agrees. Test results are discussed with the patient. AP Ortho-Glass splint is placed in the left wrist. Following splint application patient can wiggle fingers and has good cap refill and sensation distally. Patient be given a sling. She has an appointment to see her orthopedic doctor this coming week, a week before her scheduled shoulder surgery. I will have her images printed on a disc to take with her to her appointment as her wrist fracture may not change her surgical plan. Prescription for Percocet will be sent to drug [place] for her. Discharge Plan Triage Chief Complaint: Fall ED Provider: Debbie Delgadillo Dx/Rx/DC Orders Clinical Impression: Fall, Fracture of left wrist, Chest wall contusion, Abrasion of lip Instructions: ED Abrasion, ED Chest Wall Contusion, ED Fracture, Wrist, General Prescriptions: New oxycodone-acetaminophen [Percocet] 5-325 mg tablet 1 tab PO Q6H PRN (Reason: pain) 3 Days Qty: 14 0RF No Action furosemide 20 mg tablet 20 mg PO DAILY potassium chloride 10 mEq capsule, extended release 10 meq PO DAILY Passworks 160-9-4.8 mcg/actuation HFA aerosol inhaler 2 inh inhalation BID ipratropium-albuterol 0.5 mg-3 mg(2.5 mg base)/3 mL solution for nebulization 3 ml inhalation TID etodolac 400 mg tablet 400 mg PO BID meloxicam 15 mg tablet 15 mg PO DAILY oxybutynin chloride 10 mg tablet extended release 24hr 10 mg PO DAILY diclofenac sodium [Voltaren Arthritis Pain] 1 % gel 2 g topical BID PRN Rx Instructions: apply to single elbow, wrist or hand; for hand includes palm/fingers/back of hand lisinopril 10 MG tablet 10 mg PO DAILY aspirin 81 MG tablet,chewable 81 mg PO DAILY Label Comments: Take 1 tablet by mouth once daily. albuterol sulfate 18 GM HFA aerosol inhaler 2 puff IH Q4H PRN PRN (Reason: Wheezing) Label Comments: Inhale 2 Puffs as instructed every 4 hours as needed. tizanidine 2 MG capsule 2 mg PO Q8 PRN (Reason: Muscle Spasm) gabapentin 300 mg capsule 300 mg PO TID atorvastatin 40 mg tablet 40 mg PO DAILY Label Comments: Take 1 tablet by mouth once daily. Primary Care Provider: Leonie Castillo Referrals: Leonie Castillo MD [Primary Care Provider] - Activity Restrictions/Additional Instructions: Follow-up with your orthopedic surgeon this coming week as planned. Keep your splint in place until evaluated by your surgeon. The lip abrasions need to be cleansed 3 times daily. You can apply triple antibiotic ointment or bacitracin topically. Disposition Disposition: Home, Self Care
[2023-02-15] MEDS: Morphine 4 MG/ML Syringe IV (15:22)
[2023-02-15] MEDS: Ondansetron 4 MG/2 ML Vial IV (15:22)
--- NOTE | 2023-02-15 15:30 | CT_ITS ---
STUDY: CT CERVICAL SPINE WITHOUT CONTRAST REASON FOR EXAM: Female, 68 years old. trauma RADIATION DOSAGE (If Supplied By Facility): CTDIvol = ( 28.69 ) mGy, DLP = ( 614.34 ) mGycm TECHNIQUE: High resolution transaxial imaging was performed without contrast material. Sagittal and coronal images were reconstructed. Individualized dose optimization techniques were used for this CT. COMPARISON: None FINDINGS: No definite acute fracture/dislocation. The cervical junction is intact. C1-C2 articulation is intact. Mild reversal of curvature. There is normal alignment. Facet joints are intact at all levels bilaterally. No jumped facets. There is multilevel spondyloarthropathy. Multilevel degenerative disc disease seen. Multilevel loss of disc height. Multilevel posterior marginal osteophytes and disc bulges. Multilevel neural foraminal narrowing. Multilevel narrowing of the spinal canal. Visualized paraspinal soft tissues and structures are unremarkable. CT/Spine Cervical without Contras IMPRESSION: There is no definite acute fracture/dislocation. Degenerative changes. Electronically Signed: Gary Abrams MD at 16:37 EDT ,
--- NOTE | 2023-02-15 15:30 | CT_ITS ---
STUDY: CT BRAIN WITHOUT CONTRAST REASON FOR EXAM: Female, 68 years old. trauma RADIATION DOSAGE (If Supplied By Facility): CTDIvol = ( 44.99 ) mGy, DLP = ( 846.73 ) mGycm TECHNIQUE: Transaxial CT imaging of the brain was performed without administration of intravenous contrast material. Individualized dose optimization techniques were used for this CT. COMPARISON: No relevant priors. FINDINGS: Normal soft tissue structures. Normal calvarium. Normal size ventricles and extra-axial spaces for the patient''s age. Normal white matter tracts of the cerebral hemispheres. Normal basal ganglia and thalami. Normal brainstem. Normal cerebellum. There is no intracranial hemorrhage. There are no findings of an acute ischemic infarction. There is mucoperiosteal inflammatory disease of the paranasal sinuses consistent with mild chronic sinusitis. CT/Brain/Head without Contrast IMPRESSION: Normal unenhanced CT scan of the brain. Electronically Signed: Gary Abrams MD at 16:32 EDT ,
--- NOTE | 2023-02-15 15:45 | RAD_ITS ---
STUDY: X-RAY CHEST REASON FOR EXAM: Female, 68 years old. fall TECHNIQUE: Frontal and lateral views of the chest. COMPARISON: 07/30/2022. FINDINGS: The lungs are hyperexpanded. There are coarsened interstitial markings suggestive of mild chronic fibrosis. There is scarring in both lower lung stevens. No gross focal infiltrates. No gross effusions. Normal size heart. Normal mediastinum and tea. Normal visualized pulmonary arteries. Normal visualized aortic arch and descending thoracic aorta. There are diffuse degenerative changes of the visualized thoracic spine. There is degenerative osteoarthritis of the bilateral shoulders. There is no demonstrated abnormality of the visualized soft tissue structures of the upper abdomen. RAD/Chest PA and Lateral IMPRESSION: There are findings consistent with COPD. There is no evidence of acute chest disease. Electronically Signed: Gary Abrams MD at 16:39 EDT ,
[2023-02-15] MEDS: oxyCODONE 5 MG Tablet PO (16:04)
[2023-02-15 17:34] VITALS: BP 106/75; PULSE 76; RESP 14; O2SAT 99
== END 2023-02-15 17:36 | disposition home or self-care (01) ==
PROVIDERS: Emergency Provider Emergency Medicine; PCP Internal Medicine; Visit Provider Emergency Medicine
DX: S62.92XA Unspecified fracture of left hand, initial encounter for closed fracture (principal); J44.9 Chronic obstructive pulmonary disease, unspecified; S00.511A Abrasion of lip, initial encounter; S20.20XA Contusion of thorax, unspecified, initial encounter; Y92.481 Parking lot as the place of occurrence of the external cause; I10 Essential (primary) hypertension; Z87.891 Personal history of nicotine dependence; W17.89XA Other fall from one level to another, initial encounter; Z86.718 Personal history of other venous thrombosis and embolism; Z79.899 Other long term (current) drug therapy; Z79.82 Long term (current) use of aspirin; Z79.51 Long term (current) use of inhaled steroids
CPT/HCPCS: A4565; 29125; 70450; 71046; 72125; 73030; 73110; 96374; 96375; 99284; J7030; A4216; J2405

== ENCOUNTER 2023-04-13 10:30 | Emergency (ER) | payer MEDICARE, MEDICAID, SELFPAY ==
[2023-04-13 10:31] VITALS: BP 181/134; PULSE 88; RESP 16; TEMP 36.6; O2SAT 96; BMI 35.8
--- NOTE | 2023-04-13 11:14 | EDS_ITS ---
HPI History of Present Illness HPI Narrative: 68-year-old female lives alone at home with her dogs. History of COPD on oxygen, DVT and hypertension. Denies any prior hip surgery. States she had atraumatic hip pain for the last several days. Does not remember any recent falls or trauma. No fever or redness. States her left hip feels unstable when she walks. Denies any other complaints. Chief Complaint: Lower Extremity Injury Informant: patient Occured/Mechanism Mechanism/Context: No injury and No blunt trauma Onset/Context/Timing Onset: Days Context: Gradual Onset Timing: Continuous Quality of Pain: Dull and Aching Maximum Severity: Mild Associated Symptoms Associated Symptoms: Negative for Parasthesia, Weakness or Loss of Funtion Narrative Narrative: 68-year-old atraumatic left hip pain. Prior similar symptoms: No Recent Illness/Hospitalization: No PFSH PFSH Medical History Alcohol abuse Chest pain Chronic hepatitis C without hepatic coma Cocaine abuse COPD (chronic obstructive pulmonary disease) DVT (deep venous thrombosis) H/O cocaine abuse H/O ETOH abuse HTN (hypertension) Lumbar herniated disc Pinched nerve in neck Presence of stent in artery Smoker Thyroid disorder Home Medications albuterol sulfate 90 mcg/actuation aerosol inhaler 2 puff IH Q4H PRN PRN Wheezing 08/26/20 [History Last Taken 08/26/20] aspirin 81 mg chewable tablet 81 mg PO DAILY BLOOD CLOT 08/26/20 [History Last Taken 09/12/20] lisinopril 10 mg tablet 10 mg PO DAILY bp 08/26/20 [History Last Taken 09/12/20] tizanidine 2 mg capsule 2 mg PO Q8 PRN Muscle Spasm 08/26/20 [History Last Taken 08/26/20] atorvastatin 40 mg tablet 40 mg PO DAILY 02/07/21 [History Last Taken Unknown] furosemide 20 mg tablet 20 mg PO DAILY 10/17/22 [History Last Taken Unknown] potassium chloride 10 mEq capsule,extended release 10 meq PO DAILY 10/17/22 [History Last Taken Unknown] budesonide 160 mcg-glycopyr 9 mcg-formot 4.8 mcg/actuation HFA inhaler (Breztri Aerosphere) 2 inh inhalation BID 02/08/23 [History Last Taken Unknown] etodolac 400 mg tablet 400 mg PO BID 02/08/23 [History Last Taken Unknown] gabapentin 300 mg capsule 300 mg PO TID nerve pain 02/08/23 [History Last Taken Unknown] ipratropium 0.5 mg-albuterol 3 mg (2.5 mg base)/3 mL nebulization soln 3 ml inhalation TID 02/08/23 [History Last Taken Unknown] meloxicam 15 mg tablet 15 mg PO DAILY 02/08/23 [History Last Taken Unknown] oxybutynin chloride 10 mg tablet,extended release 24 hr 10 mg PO DAILY 02/08/23 [History Last Taken Unknown] diclofenac sodium 1 % topical gel (Voltaren Arthritis Pain) 2 g topical BID PRN 02/15/23 [History Last Taken Unknown] oxycodone-acetaminophen 5 mg-325 mg tablet (Percocet) 1 tab PO Q6H PRN pain 3 days #14 tabs 02/15/23 [Rx Last Taken Unknown] Allergy/AdvReac Type Severity Reaction Status Date / Time No Known Allergies Allergy Verified 04/13/23 10:32 Family History Mother Hypertension Other Alcoholism Surgical History H/O vascular surgery Stenosis of artery of left lower extremity Social History household members: none Smoking Status: Former smoker how long ago did patient quit smoking: January 2022 alcohol intake: never substance use type: former substance user Date of last use: 03/2020 and crack/cocaine caffeine: Yes Type: carbonated beverages and coffee ROS ROS ED ROS Narrative Denies recent illness. Review of Systems ROS Unobtainable: Denies due to encephalopathy Constitutional Constitutional ED: Denies chills or fever(s) Eyes Eyes: Denies blurry vision ENT ENT ED: Denies ear pain Cardiovascular Cardiovascular: Denies chest pain Respiratory/Chest Respiratory/Chest: Denies cough or dyspnea Gastrointestinal Gastrointestinal: Denies abdominal pain Genitourinary Genitourinary ED: Denies dysuria or hematuria Musculoskeletal Musculoskeletal: Denies arthralgias Integumentary Denies abscess or Abrasions Neurologic Neurologic: Denies headache(s) Psychiatric Psychiatric: Denies anxiety Endocrine Endocrinology: Denies polydipsia Hematologic/Lymphatic Hematologic/Lymphatic: Denies easy bleeding or easy bruising Allergic/Immunologic Allergic/Immunologic ED: Denies mouth swelling or tongue swelling EXAM Physical Exam Narrative Exam Narrative: [id number] female no acute distress. Lying on her right hip. No one else present in the room. H EENT exam unremarkable. Neck nontender. Lungs clear to auscultation bilaterally. Chest wall nontender. Abdomen soft nontender. Moving all 4 extremities. Calves are nontender without edema or cords. There is no deformities. 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 Dorsi plantarflexion intact. The left hip appears normal. There is no redness or warmth. No bruising. She has normal flexion extension. No bony deformity. No swelling. She is able to flex and extend her left knee, ankle and foot. Back nontender. Left SI joint nontender. Negative straight leg raise. She is awake and alert with no focal motor deficits. Const Vital Signs: 04/13/23 10:31 Temperature 97.9 F Temperature Source Temporal Pulse Rate 88 Respiratory Rate 16 Blood Pressure 181/134 H Blood Pressure Mean 149 Pulse Ox 96 Oxygen Delivery Method Nasal Cannula Oxygen Flow Rate (L/min) 3 Positive well nourished and well developed; Negative for cachectic, contractures or unkempt General Appearance ED: well developed and NAD; Negative for unkempt, cachectic or contractures Nutritional Appearance: Negative for cachectic HEENT Reports moist mucous membranes normocephalic and atraumatic; Negative for trauma or tenderness Eyes PERRL General Eye ED: Negative for other Neck full ROM and supple Thyroid: Negative for tender Lymph Lymphatic: Negative for other Chest Wall inspection of chest normal and palpation of chest normal Chest: Negative for other Resp normal respiratory effort, no retractions and clear to auscultation bilaterally Effort and Inspection: Negative for pain with movement Auscultation: Negative for rales, rhonchi or wheezes Cardio regular rate, regular rhythm, S1 normal heart sound, S2 normal heart sound and no murmurs Rate: Negative for bradycardia or tachycardic Rhythm: Negative for abnormal rhythm GI non-tender, non-distended and no masses Inspection: Negative for abdominal distention Auscultation: normoactive bowel sounds Palpation: soft; Negative for tender or guarding Bladder / Kidney Exam: No other Back/Spine no CVA tenderness General Back: Negative for CVA tenderness Cervical Spine: Negative for cervical spine tenderness Thoracic Spine / Upper Back: Negative for thoracic spinal tenderness Lumbar Spine / Lower Back: Negative for lumbar spinal tenderness or straight leg raise positive - left Extremity normal to inspection and full ROM General Extremety ED: Negative for cyanosis or edema General Extremity: Negative for cyanosis or edema Neuro oriented x3, CN's II-XII intact bilaterally and moves all extremities Sensorium / Orientation: alert, oriented to person, oriented to place and oriented to time; Negative for orientation impaired, confused, lethargic or stuporous Motor Exam: strength 5/5 throughout Psych mental status grossly normal Appearance: Negative for unkempt Speech: No other Mood & Affect: Negative for anxious Skin No no wounds Lesions: no lesions Rashes: no rashes Trauma: Negative for abrasion, laceration or puncture MDM MDM MDM Narrative Medical decision making narrative: 68-year-old female with atraumatic left hip pain. Exam is benign. She has normal range of motion. No redness no, warmth or swelling. X-ray will be obtained. Repeat exam unchanged. I discussed her x-ray results with her. Nurses will ambulate her. She ambulates okay she will be discharged home and follow-up with primary care physician. Motrin and Tylenol for pain. History & Record Review Discussion w/independent historian: Patient Radiography Diagnostic Testing: Left hip and pelvis x-rays x3. Interpreted by me shows no acute abnormality. There is a prior vascular stent. There are some arthritis in the hip. There is no fracture or dislocation noted. Chronic changes no acute process. Discharge Plan Triage Chief Complaint: Lower Extremity Injury ED Provider: Titi Jesus Dx/Rx/DC Orders Prescriptions: No Action furosemide 20 mg tablet 20 mg PO DAILY potassium chloride 10 mEq capsule, extended release 10 meq PO DAILY Breztri Aerosphere 160-9-4.8 mcg/actuation HFA aerosol inhaler 2 inh inhalation BID ipratropium-albuterol 0.5 mg-3 mg(2.5 mg base)/3 mL solution for nebulization 3 ml inhalation TID etodolac 400 mg tablet 400 mg PO BID meloxicam 15 mg tablet 15 mg PO DAILY oxybutynin chloride 10 mg tablet extended release 24hr 10 mg PO DAILY diclofenac sodium [Voltaren Arthritis Pain] 1 % gel 2 g topical BID PRN Rx Instructions: apply to single elbow, wrist or hand; for hand includes palm/fingers/back of hand lisinopril 10 MG tablet 10 mg PO DAILY aspirin 81 MG tablet,chewable 81 mg PO DAILY Patient Comments: Take 1 tablet by mouth once daily. albuterol sulfate 18 GM HFA aerosol inhaler 2 puff IH Q4H PRN PRN (Reason: Wheezing) Patient Comments: Inhale 2 Puffs as instructed every 4 hours as needed. tizanidine 2 MG capsule 2 mg PO Q8 PRN (Reason: Muscle Spasm) gabapentin 300 mg capsule 300 mg PO TID atorvastatin 40 mg tablet 40 mg PO DAILY Patient Comments: Take 1 tablet by mouth once daily. oxycodone-acetaminophen [Percocet] 5-325 mg tablet 1 tab PO Q6H PRN (Reason: pain) 3 Days Qty: 14 0RF Primary Care Provider: Leonie Castillo Referrals: Leonie Castillo MD [Primary Care Provider] -
--- NOTE | 2023-04-13 11:14 | RAD_ITS ---
STUDY: X-RAY - PELVIS AND LEFT HIP REASON FOR EXAM: Female, 68 years old. left hip pain TECHNIQUE: 3 views of the pelvis and hip. COMPARISON: None. FINDINGS: There is a non-specific bowel gas pattern. Normal visualized soft tissue structures. Normal bilateral iliac wings, sacroiliac joints and visualized sacrum. Normal bilateral superior and inferior pubic rami. Normal pubic symphysis. Normal bilateral ischial tuberosities. Normal visualized femoral head. Normal acetabulum. Normal hip joint. RAD/HIP, UNI W/ Pelvis 2-3 Views IMPRESSION: Normal x-ray examination of the pelvis and hip. Electronically Signed: Duke Douglass MD at 11:57 EDT ,
== END 2023-04-13 11:51 | disposition home or self-care (01) ==
LOC: ED 11:39
PROVIDERS: Emergency Provider Emergency Medicine; PCP Internal Medicine; Visit Provider Emergency Medicine
DX: M25.552 Pain in left hip (principal); J44.9 Chronic obstructive pulmonary disease, unspecified; I10 Essential (primary) hypertension; Z87.891 Personal history of nicotine dependence; Z79.899 Other long term (current) drug therapy; Z79.82 Long term (current) use of aspirin; Z79.51 Long term (current) use of inhaled steroids; Z95.5 Presence of coronary angioplasty implant and graft
CPT/HCPCS: 73502; 99282

== ENCOUNTER → 2023-05-23 | Outpatient (CLI) | payer MEDICARE, MEDICAID, SELFPAY ==
--- NOTE | 2023-05-23 14:25 | RAD_ITS ---
STUDY: X-RAY - ABDOMEN/PELVIS REASON FOR EXAM: Female, 68 years old. Bloating. TECHNIQUE: Single AP view of the abdomen / pelvis on 3 images. COMPARISON: None. FINDINGS: Normal visualized lung bases. Normal bowel gas pattern with air seen to the rectosigmoid. No disproportionate dilatation or free abdominal air. The visualized liver, spleen and kidneys are grossly normal in size and morphology. Phleboliths. Normal visualized osseous structures. RAD/Abd [employer] Decub and/or Erect IMPRESSION: No acute abnormality of the lower chest, abdomen or pelvis. Electronically Signed: Juancarlos Mishra MD at 9:45 EDT ,
== END | disposition home or self-care (01) ==
LOC: RAD 14:10
PROVIDERS: PCP Nurse Practitioner; Referring Provider Internal Medicine Gastroenterology; Visit Provider Internal Medicine Gastroenterology
DX: R14.0 Abdominal distension (gaseous) (principal); B19.20 Unspecified viral hepatitis C without hepatic coma
CPT/HCPCS: 74019

== ENCOUNTER 2023-06-04 12:43 | Emergency (ER) | payer MEDICARE, MEDICAID, SELFPAY ==
[2023-06-04 12:45] VITALS: BP 99/88; PULSE 89; RESP 20; TEMP 37; O2SAT 92
--- NOTE | 2023-06-04 14:01 | EX.ED.DYSGE1 ---
HPI History of Present Illness Chief Complaint: Back Informant: patient Narrative Narrative: Here with daughter nontraumatic right hip pain since yesterday. On meloxicam last dose this morning. Status post left ORIF of the wrist in February from [facility]. States his residual tingling to her thumb. No new injuries. Patient able to ambulate however has difficulty. Does not [place] with assistance. Chronic 2 L oxygen with COPD history. Previous on oxycodone's postsurgery. No history of gastric ulcers or kidney injury. Prior similar symptoms: No PFSH PFSH Medical History Alcohol abuse Chest pain Chronic hepatitis C without hepatic coma Cocaine abuse COPD (chronic obstructive pulmonary disease) DVT (deep venous thrombosis) Euthyroid sick syndrome H/O cocaine abuse H/O ETOH abuse HTN (hypertension) Lumbar herniated disc Pinched nerve in neck Presence of stent in artery Smoker Thyroid disorder Home Medications albuterol sulfate 90 mcg/actuation aerosol inhaler 2 puff IH Q4H PRN PRN Wheezing 08/26/20 [History Last Taken 08/26/20] aspirin 81 mg chewable tablet 81 mg PO DAILY BLOOD CLOT 08/26/20 [History Last Taken 09/12/20] lisinopril 10 mg tablet 10 mg PO DAILY bp 08/26/20 [History Last Taken 09/12/20] tizanidine 2 mg capsule 2 mg PO Q8 PRN Muscle Spasm 08/26/20 [History Last Taken 08/26/20] atorvastatin 40 mg tablet 40 mg PO DAILY 02/07/21 [History Last Taken Unknown] furosemide 20 mg tablet 20 mg PO DAILY 10/17/22 [History Last Taken Unknown] potassium chloride 10 mEq capsule,extended release 10 meq PO DAILY 10/17/22 [History Last Taken Unknown] budesonide 160 mcg-glycopyr 9 mcg-formot 4.8 mcg/actuation HFA inhaler (Breztri Aerosphere) 2 inh inhalation BID 02/08/23 [History Last Taken Unknown] etodolac 400 mg tablet 400 mg PO BID 02/08/23 [History Last Taken Unknown] gabapentin 300 mg capsule 300 mg PO TID nerve pain 02/08/23 [History Last Taken Unknown] ipratropium 0.5 mg-albuterol 3 mg (2.5 mg base)/3 mL nebulization soln 3 ml inhalation TID 02/08/23 [History Last Taken Unknown] meloxicam 15 mg tablet 15 mg PO DAILY 02/08/23 [History Last Taken Unknown] oxybutynin chloride 10 mg tablet,extended release 24 hr 10 mg PO DAILY 02/08/23 [History Last Taken Unknown] diclofenac sodium 1 % topical gel (Voltaren Arthritis Pain) 2 g topical BID PRN 02/15/23 [History Last Taken Unknown] oxycodone-acetaminophen 5 mg-325 mg tablet (Percocet) 1 tab PO Q6H PRN pain 3 days #14 tabs 02/15/23 [Rx Last Taken Unknown] oxycodone-acetaminophen 5 mg-325 mg tablet (Percocet) 1 tab PO Q6H pain 3 days #12 tabs 06/04/23 [Rx Last Taken Unknown] prednisone 20 mg tablet 60 mg (3 x 20 mg) PO DAILY #15 TABLETS 06/04/23 [Rx Last Taken Unknown] Allergy/AdvReac Type Severity Reaction Status Date / Time No Known Allergies Allergy Verified 06/04/23 12:44 Family History Mother Hypertension Other Alcoholism Surgical History H/O vascular surgery Stenosis of artery of left lower extremity Social History household members: none Smoking Status: Former smoker how long ago did patient quit smoking: January 2022 alcohol intake: never substance use type: former substance user Date of last use: 03/2020 and crack/cocaine caffeine: Yes Type: carbonated beverages and coffee ROS ROS ED Constitutional Constitutional ED: Denies chills, fever(s) or sweats Eyes Eyes: Denies change in vision ENT ENT ED: Denies dysphagia or sore throat Cardiovascular Cardiovascular: Denies chest pain, leg edema, palpitations or racing heartbeat Respiratory/Chest Respiratory/Chest: Denies cough, dyspnea or dyspnea on exertion Gastrointestinal Gastrointestinal: Denies abdominal pain, diarrhea, nausea or vomiting Genitourinary Genitourinary ED: Denies dysuria, hematuria or urinary frequency Musculoskeletal Musculoskeletal: Reports extremity pain; Denies back pain or neck pain Integumentary Denies rash or wounds Neurologic Neurologic: Denies headache(s), paresthesias or weakness EXAM Physical Exam Const Vital Signs: 06/04/23 12:45 Temperature 98.6 F Temperature Source Temporal Pulse Rate 89 Respiratory Rate 20 H Blood Pressure 99/88 H Blood Pressure Mean 91 Pulse Ox 92 Oxygen Delivery Method Nasal Cannula Oxygen Flow Rate (L/min) 3 Positive well nourished and well developed Constitutional Narrative: 2 L nasal cannula General Appearance ED: well developed and NAD HEENT Reports moist mucous membranes normocephalic and atraumatic Eyes PERRL, EOMs intact bilaterally and conjunctivae normal General Eye ED: Yes normal appearance of both eyes Neck no lymphadenopathy and supple General: Negative for tenderness Chest Wall Chest: Negative for tenderness Resp normal respiratory effort and normal air movement Effort and Inspection: symmetric chest movement; Negative for respiratory distress Cardio regular rate, regular rhythm and no murmurs Peripheral Pulses: pulses 2+ throughout GI normal to inspection, nondistended, normoactive bowel sounds and non-tender Palpation: Negative for guarding or rebound tenderness present Back/Spine no CVA tenderness and no thoracic nor lumbar tenderness Back/Spine Narrative: No midline tenderness. Straight leg test negative. Extremity Extremity Narrative: Right lower extremity: No shortening or deformities pain with rotation of the hip. Neuro vas intact distally. General Extremety ED: Negative for edema or tenderness General Extremity: Negative for edema Neuro oriented x3 and no sensory deficits noted Sensorium / Orientation: awake and alert Skin no rashes or lesions noted and no wounds MDM MDM MDM Narrative Medical decision making narrative: Interventions / MDM: Differential diagnosis: Hip strain Diagnosis considered but do not suspect: Fracture however image negative. No clinical sciatica presentation. My EKG interpretation: N/A Imaging independently reviewed and interpreted by myself: 3 view right hip with pelvis: No acute process also read by radiology. External documents reviewed: N/A Test considered but not ordered:N/A ED course: Patient right hip strain however is able to ambulate. Toradol oxycodone prescribed. X-ray obtained negative. She is able to ambulate. She is nondiabetic. She is on meloxicam. We will write for short prescription for prednisone short prescription of oxycodone. She follow with her orthopedist. All questions were answered. Re-evaluation: stable Disposition discussed with patient/family/significant other: Patient Case discussed with consulting clinician: N/A This note was generated with Kesha dictation software. It may contain incorrect words, spelling, and punctuation that were not noted in checking the note before signing. Radiography Diagnostic Testing: Clinical Impression(s) from Imaging Studies Hip/Pelvis X-Ray 06/04/23 14:30 IMPRESSION: No evidence of displaced pelvic or hip fracture. Electronically Signed: Arnold Alatorre MD at 14:47 EDT Reading Location ID and State: [facility] / [place] Tel , Service support , Discharge Plan Triage Chief Complaint: Back ED Provider: Lucas Marshall Dx/Rx/DC Orders Clinical Impression: Strain of muscle of right hip, COPD (chronic obstructive pulmonary disease) Instructions: ED Hip Strain Prescriptions: New oxycodone-acetaminophen [Percocet] 5-325 mg tablet 1 tab PO Q6H 3 Days Qty: 12 0RF prednisone 20 mg tablet 60 mg PO DAILY Qty: 15 0RF No Action furosemide 20 mg tablet 20 mg PO DAILY potassium chloride 10 mEq capsule, extended release 10 meq PO DAILY Breztri Aerosphere 160-9-4.8 mcg/actuation HFA aerosol inhaler 2 inh inhalation BID ipratropium-albuterol 0.5 mg-3 mg(2.5 mg base)/3 mL solution for nebulization 3 ml inhalation TID etodolac 400 mg tablet 400 mg PO BID meloxicam 15 mg tablet 15 mg PO DAILY oxybutynin chloride 10 mg tablet extended release 24hr 10 mg PO DAILY diclofenac sodium [Voltaren Arthritis Pain] 1 % gel 2 g topical BID PRN Rx Instructions: apply to single elbow, wrist or hand; for hand includes palm/fingers/back of hand lisinopril 10 MG tablet 10 mg PO DAILY aspirin 81 MG tablet,chewable 81 mg PO DAILY Patient Comments: Take 1 tablet by mouth once daily. albuterol sulfate 18 GM HFA aerosol inhaler 2 puff IH Q4H PRN PRN (Reason: Wheezing) Patient Comments: Inhale 2 Puffs as instructed every 4 hours as needed. tizanidine 2 MG capsule 2 mg PO Q8 PRN (Reason: Muscle Spasm) gabapentin 300 mg capsule 300 mg PO TID atorvastatin 40 mg tablet 40 mg PO DAILY Patient Comments: Take 1 tablet by mouth once daily. oxycodone-acetaminophen [Percocet] 5-325 mg tablet 1 tab PO Q6H PRN (Reason: pain) 3 Days Qty: 14 0RF Primary Care Provider: ELI BRAGG Referrals: ELI BRAGG, FLATWORK [employer]ER-C [Primary Care Provider] - Activity Restrictions/Additional Instructions: Right hip x-ray negative. Take steroids, continue your meloxicam. Use Percocet as needed. Follow-up with your doctors. Disposition Disposition: Home, Self Care
--- NOTE | 2023-06-04 14:30 | RAD_ITS ---
INDICATION: pain EXAMINATION/TECHNIQUE: X-RAY - XR Hip Unilateral with Pelvis when performed; 2-3 Views COMPARISON: 04/13/2023. FINDINGS: PELVIC BONES: No displaced fracture, destructive or sclerotic lesions. Note that overlapping bowel shadows may however obscure fine detail. Sacroiliac joints are unremarkable. No widening of the pubic symphysis. HIPS: The articular structures are within normal limits. No displaced fracture seen in this frontal view. SOFT TISSUES: Stents are seen in the region of the left iliac arteries or veins. RAD/HIP, UNI W/ Pelvis 2-3 Views IMPRESSION: No evidence of displaced pelvic or hip fracture. Electronically Signed: Arnold Alatorre MD at 14:47 EDT ,
[2023-06-04] MEDS: Ketorolac 30 MG/ML Syringe IM (14:44)
[2023-06-04] MEDS: oxyCODONE 5 MG Tablet PO (14:44)
== END 2023-06-04 15:24 | disposition home or self-care (01) ==
PROVIDERS: Emergency Provider Emergency Medicine; PCP Nurse Practitioner; Visit Provider Emergency Medicine
DX: S76.011A Strain of muscle, fascia and tendon of right hip, initial encounter (principal); J44.9 Chronic obstructive pulmonary disease, unspecified; B18.2 Chronic viral hepatitis C; Z87.891 Personal history of nicotine dependence; I10 Essential (primary) hypertension; Z99.81 Dependence on supplemental oxygen; Z79.82 Long term (current) use of aspirin; Z79.899 Other long term (current) drug therapy; Z79.51 Long term (current) use of inhaled steroids
CPT/HCPCS: 73502; 96372; 99283

== ENCOUNTER → 2023-06-17 | Outpatient (CLI) | payer MEDICARE, MEDICAID, SELFPAY ==
--- NOTE | 2023-06-17 09:48 | US_ITS ---
STUDY: ABDOMINAL ULTRASOUND - RIGHT UPPER QUADRANT; ELASTOGRAPHY REASON FOR VISIT: Female, 68 years old. History of hepatitis C TECHNIQUE: Ultrasound evaluation of the right upper quadrant was performed with real-time and static edwards-scale imaging. Point quantification shear wave elastography was performed ([employer]). TECHNICAL QUALITY: Adequate. COMPARISON: None. FINDINGS: Liver: The liver is mildly enlarged and measures 17.4 cm. There is normal echogenicity of the liver. The bile ducts are within normal limits. There is hepatic color flow. The direction of portal flow is hepatopetal. There is no demonstrated mass lesion. Median liver stiffness measured 5.2 kPa. Gallbladder: Normal distended gallbladder. The gallbladder wall measures 1.8 mm. There is a negative sonographic Anne''s sign. There is no pericholecystic fluid. There are no gallstones. Findings suggestive of adenomyomatosis of the gallbladder. Common Bile Duct (C.B.D.): The common bile duct measures 5.8 mm. Pancreas: There is normal echogenicity of the visualized pancreas. There is no demonstrated pancreatic mass or cyst. Right Kidney: Normal size of the right kidney. The right kidney measures 10 cm x 5.3 cm x 3.9 cm. Normal renal cortex. The right cortex measures 1.1 cm. There is no demonstrated renal mass or cyst. There is no right hydronephrosis. US/ABD Limited w/ Elastography IMPRESSION: 1. Liver stiffness measures 5.2 kPa compatible with F0-F1 (Normal to mild liver fibrosis) Metavir score. Electronically Signed: Anthony Perez MD at 15:10 EDT ,
== END | disposition home or self-care (01) ==
LOC: US 09:47
PROVIDERS: PCP Nurse Practitioner; Referring Provider Internal Medicine Gastroenterology; Visit Provider Internal Medicine Gastroenterology
DX: B19.20 Unspecified viral hepatitis C without hepatic coma (principal)
CPT/HCPCS: 76705; 76981

== ENCOUNTER 2023-06-24 10:30 | Outpatient (RCR) | payer MEDICARE, MEDICAID, SELFPAY ==
--- NOTE | 2023-05-01 15:07 | HP.OTEVAL_ITS ---
Patient's Visit Information Visit Information Visit Information: INDIRA HOLLINGSWORTH is a 68 year old F, referred to Occupational Therapy by Dr. Capo Yu MD, with a diagnosis of left wrist fx, with routine healing, subsequent encounter. Date of Evaluation: 05/01/23 Occupational Therapist: Felicitas Harris, ASHOK/Colton, CHT Subjective Subjective: Pt is a 68 year old female with a left wrist fracture now s/p 8 weeks. Injury occurred when patient was leaving hospital and tripped over the foot pedal on February 15 and had surgery on March 06. Pt reports main concern is numbness in thenar and palm of hand and ulnar pain/sensitivity and sensitive over scar. Pt has a wrist cock up splint that irritates the proximal end of her scar when she does not have a protective barrier, therefore is not wearing the brace. She cares for 2 dogs and has trouble picking the dogs up. Pt has COPD and is on 3L of O2 all of the time. Pt lives alone and reports sleeping in bed. Pt reports muscle spasm type wrist pain. Pt reports placing wrist in warm water helps decrease pain. Pt plans to have surgery for her left rotator cuff tear soon, was delayed due to injury. Pt is right hand dominant. ADLs Comments: Pt reports she has found was to compensate for ADL tasks, though does not give specific areas of concern at evaluation. 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: Right 35# Left 6# Lateral Pinch: Right 12# Left 4# Tripod Pinch: Right 10# Left 8# Sensation Thumb: Left and Right 2.83 normal sensation Index: Left and Right 2.83 normal sensation Middle: Left and Right 2.83 normal sensation Ring: Left and Right 2.83 normal sensation Other Location: Thenar eminence Left and Right 2.83 normal sensation Nine Hole Peg Right: 34 Left: 29 Quick DASH-Disab of Arm,Shoulder& Hand Quick DASH Score: 56.8175 Goals Goal:100% adherence to protocol: Yes Comment: distal radius ORIF guidelines Goal:Daily scar massage when approriate: Yes Goal:ROM equal to unaffected hand: Yes Goal:Drilling Machine Runner/Pinch strength at least 75% of unaffected hand: Yes Goal:No pain with affected hand use: Yes Goal:Full use of affected hand in daily activities including work: Yes Goal:Decrease scar hypersensitivity: Yes Rehabilitation General Assessment: Pt presents with a wrist fracture status post 8 weeks. Pt was very sensitive to light touch on scar, is limited in left UE ROM of radial and ulnar deviation, supination and left wrist flexion/extension. This is limiting pt's ability to perform ADL/IADL tasks. Pt will benefit from skilled OT for 1-2x a week for 8 weeks for increased strength and mobility in her left wrist to safely return to ADL/IADL tasks. Pt educated in sensory desensitization, wrist strengthening, and OT POC. Pt verbalizes understanding and agreeable to POC. Therapy session directly supervised and doc. approved by Felicitas Harris OTR/Colton,CHT. Rehabilitation Potential: Good Anticipated Interventions Anticipated Interventions: A/AAROM/PROM, Strengthening, Edema Control, Scar Care, Triggerpoint Release, Desensitization, Modalities, Joint Protection/Energy Conservation, Ergonomic Education, ADL Training, Education re Diagnosis and Home Program Visit Plan Frequency: 1-2x /Week Duration: 6 Weeks General Plan: Due to delay of skilled therapy will begin with stretching to increase ROM prior to strengthening following a general protocol for distal radius fracture ORIF Work on wrist ROM with stretching until stretch is ~30 change (1st-2nd visit) Following the wrist ORIF protocol as a guideline (pg 293 of [employer] hand and shoulder ) of 1-5 pounds for weight Can start BTE by 3rd visit or increase in ROM TEXT: Thank you for the opportunity to evaluate your patient. For Medicare and Medicare HMO plans, please review the plan of care and approve it. It will need to be FAXED BACK to us at [phone] for Medicare purposes. Please let me know if there are questions or concerns regarding this plan of care. Physician Signature: Date:
--- NOTE | 2023-06-24 11:10 | HP.OTDCSUM ---
Discharge Summary D/C Summary: It has been my pleasure to treat INDIRA HOLLINGSWORTH under orders from Dr. Capo Yu MD, for the diagnosis of left wrist fx, with routine healing, subsequent encounter for a total of 12 visit(s). Please see the following information for a summary of their discharge status. Overall Improvement % Improvement: 50 Objective Objective/Function: left wrist 55/45 initial was 35/50 left radiological equipment specialist 35# increase from initial 6# left lateral pinch 16# initial 4# left tripod pinch 8# initial 8# pt states she feels like she gets hand spasms from time to time. pt states she continues to get pain in wrist/ thumb area - ( pt points to CMC region ) pt also states she gets spasms in left hand. Goals Patient Goals: Decrease Pain, Improve Fine Motor Skills, Use Hand/Wrist/Arm Normally Again, Decrease Tingling/Numbness, Increase ROM, Decrease Sensitivity and Resume Former Household Responsibilities (Cooking,Cleaning,Yard, etc.) Goal:100% adherence to protocol: Yes Goal:Daily scar massage when approriate: Yes Goal:ROM equal to unaffected hand: Yes Goal:Road Design Engineer/Pinch strength at least 75% of unaffected hand: Yes Goal:No pain with affected hand use: Yes Goal:Full use of affected hand in daily activities including work: Yes Goal:Decrease scar hypersensitivity: Yes Plan Plan: D/C D/C Information Discharge Comments: pt states she has concerns with muscle spasms in left hand and pain in left thumb. refer to pt return DrJuan Antonio pt did meet initial established goals of left wrist. pt agrees to call and return to discuss pain of left thumb and muscle spasms. d/c sentence: If there are questions or concerns regarding this patient's occupational therapy, please fell free to call me at [phone]. Thank you for the referral of this patient. Sincerely, Felicitas Harris, OTR/L, CHT
== END 2023-06-24 19:00 | disposition home or self-care (01) ==
LOC: OT 10:30
PROVIDERS: PCP Nurse Practitioner; Referring Provider Orthopaedic Surgery; Visit Provider Orthopaedic Surgery
DX: S62.102D Fracture of unspecified carpal bone, left wrist, subsequent encounter for fracture with routine healing (principal)
CPT/HCPCS: 97110; 97166; 97530

== ENCOUNTER 2023-08-05 02:19 | Observation (INO) | payer MEDICARE, MEDICAID, SELFPAY ==
[2023-08-05] VITALS (10 sets, daily range): BP systolic 105–163; BP diastolic 58–97; PULSE 72–90; RESP 15–20; TEMP 36.1–36.7; O2SAT 88–98; BMI 39.1; BMI 36.8
--- NOTE | 2023-08-05 02:20 | ED.VIS.CHEST ---
HPI History of Present Illness Chief Complaint: Chest Pain [facility] Medical History (Updated 08/05/23 @ 05:[address] Miguelina Castanon MD) Alcohol abuse Chronic hepatitis C without hepatic coma Cocaine abuse COPD (chronic obstructive pulmonary disease) DVT (deep venous thrombosis) Euthyroid sick syndrome H/O cocaine abuse H/O ETOH abuse HTN (hypertension) Lumbar herniated disc Pinched nerve in neck Presence of stent in artery Smoker Thyroid disorder Home Medications albuterol sulfate 90 mcg/actuation aerosol inhaler 2 puff IH Q4H PRN PRN Wheezing 08/26/20 [History Last Taken 08/26/20] aspirin 81 mg chewable tablet 81 mg PO DAILY BLOOD CLOT 08/26/20 [History Last Taken 09/12/20] lisinopril 10 mg tablet 20 mg PO DAILY bp 08/26/20 [History Last Taken 09/12/20] tizanidine 2 mg capsule 2 mg PO Q8 PRN Muscle Spasm 08/26/20 [History Last Taken 08/26/20] atorvastatin 40 mg tablet 40 mg PO DAILY 02/07/21 [History Last Taken Unknown] furosemide 20 mg tablet 20 mg PO DAILY 10/17/22 [History Last Taken Unknown] potassium chloride 10 mEq capsule,extended release 10 meq PO DAILY 10/17/22 [History Last Taken Unknown] budesonide 160 mcg-glycopyr 9 mcg-formot 4.8 mcg/actuation HFA inhaler (Breztri Aerosphere) 2 inh inhalation BID 02/08/23 [History Last Taken Unknown] etodolac 400 mg tablet 400 mg PO BID 02/08/23 [History Last Taken Unknown] gabapentin 300 mg capsule 300 mg PO TID nerve pain 02/08/23 [History Last Taken Unknown] ipratropium 0.5 mg-albuterol 3 mg (2.5 mg base)/3 mL nebulization soln 3 ml inhalation TID 02/08/23 [History Last Taken Unknown] meloxicam 15 mg tablet 15 mg PO DAILY 02/08/23 [History Last Taken Unknown] oxybutynin chloride 10 mg tablet,extended release 24 hr 10 mg PO DAILY 02/08/23 [History Last Taken Unknown] diclofenac sodium 1 % topical gel (Voltaren Arthritis Pain) 2 g topical BID PRN pain 02/15/23 [History Last Taken Unknown] oxycodone-acetaminophen 5 mg-325 mg tablet (Percocet) 1 tab PO Q6H PRN pain 3 days #14 tabs 02/15/23 [Rx Last Taken Unknown] oxycodone-acetaminophen 5 mg-325 mg tablet (Percocet) 1 tab PO Q6H pain 3 days #12 tabs 06/04/23 [Rx Last Taken Unknown] prednisone 20 mg tablet 60 mg (3 x 20 mg) PO DAILY #15 TABLETS 06/04/23 [Rx Last Taken Unknown] gabapentin 100 mg capsule 400 mg PO QHS 08/05/23 [History Last Taken Unknown] omeprazole 40 mg capsule,delayed release 40 mg PO DAILY 08/05/23 [History Last Taken Unknown] Allergy/AdvReac Type Severity Reaction Status Date / Time No Known Allergies Allergy Verified 08/05/23 02:19 Family History (Updated 08/05/23 @ 05:[address] Miguelina Castanon MD) Mother Hypertension Other Alcoholism Surgical History (Updated 08/05/23 @ 05:[address] Miguelina Castanon MD) H/O vascular surgery History of rotator cuff surgery Stenosis of artery of left lower extremity Social History (Updated 08/05/23 @ 05:[address] Miguelina Castanon MD) household members: none Smoking Status: Former smoker how long ago did patient quit smoking: January 2022 alcohol intake: former substance use type: former substance user Date of last use: 03/2020 and crack/cocaine caffeine: Yes Type: carbonated beverages and coffee EXAM Physical Exam Const Vital Signs: 08/05/23 02:19 08/05/23 02:19 08/05/23 02:26 Temperature 96.9 F L Temperature Source Temporal Pulse Rate 90 Respiratory Rate 17 Respiratory Effort Normal Non-Labored Blood Pressure 163/85 H Blood Pressure Mean 111 Pulse Ox 93 Oxygen Delivery Method Room Air Oxygen Flow Rate (L/min) 08/05/23 04:58 08/05/23 02:27 Temperature Temperature Source Pulse Rate 85 Respiratory Rate 15 Respiratory Effort Blood Pressure 112/97 H Blood Pressure Mean 102 Pulse Ox 96 88 Oxygen Delivery Method Nasal Cannula Room Air Oxygen Flow Rate (L/min) 2 MDM MDM MDM Narrative Medical decision making narrative: HISTORY OF PRESENT ILLNESS: 68-year-old female here with concern for chest pain. Notes pain started approximately 1 hour prior to arrival. It is sharp. It is not pressure-like and is not associate with shortness of breath. She denies taking blood thinners. She denies any recent cocaine use. Denies any recent sick contacts or illnesses. No cough or fever. The patient denies recent surgery in the last 4 weeks or immobilization in the last 3 days, denies previous diagnosis of DVT or PE, hemoptysis, unilateral leg swelling or malignancy with treatment the last 6 months or palliative. No estrogen use noted. Patient denies sudden onset of pain, no tearing sensation, no migratory symptoms, no new numbness, weakness or loss of sensation. Patient denies family history or personal history of Connective tissue disorders (Marfan's Syndrome, Adilia Danlos etc) REVIEW OF SYSTEMS: Pertinent positives: Chest pain Pertinent negatives: Shortness of breath, cough, leg swelling, unilateral leg swelling or weakness PHYSICAL EXAM: Nursing triage notes reviewed, Vital signs reviewed Constitutional: please see mdm HENT: MMM Eyes: Pupils equal round and reactive to light, Extraocular muscles intact Neck: No stridor, no JVD, full neck ROM Lungs: Clear to auscultation, No wheezing or rales. No increased work of breathing, no conversational dyspnea, no accessory muscle use, no nasal flaring. No respiratory distress noted Heart: Regular rate and rhythm, No murmurs, No rubs and No gallops, 2+ distal pulses (radial, femoral, posterior tibial) in all extremities Abdomen: Soft, there is no tenderness, rigidity, rebound or guarding, no obvious peritoneal signs, no palpable pulsatile abdominal masses, no auscultated abdominal bruit : No CVAT Extremities: No edema Neuro: No focal neurological deficits, cranial nerves II through XII intact, 5/5 strength in all extremities. Intact sensation to light touch in all extremities, 2+ reflexes bilateral patella tendons. Normal gait. No ataxia. Skin: Surgical site of left shoulder is clean dry intact with no focal induration or signs of infection. MEDICAL DECISION MAKING: Chief Complaint: Chest pain External records reviewed: Prior echocardiogram reviewed. Last ejection fraction 69% Factors affecting care: COPD, history of DVT, history of peripheral artery disease, hyperlipidemia, attention history of possible abuse including cocaine Social determinants of health: History of cocaine use History obtained from others: EMS Consults: Internal medicine (Dr. Castanon) MDM Narrative: Patient was hemodynamically stable, afebrile, nontoxic-appearing. Exam without focal cardiopulmonary normalities. I considered the following differential diagnosis: ACS, arrhythmia, anemia, PE, cocaine induced chest pain, aortic dissection While the patient did not complain of pleuritic chest pain she did have history of DVT and recent surgery which increase her risk for PE substantially. Given this I obtained a CT scan of the chest with contrast. Patient was difficult to gain IV access on. I assess patient's willingness to continue with IV access. Patient is willing to continue IV access despite significant pain. Had a conversation with cottrell blower, RN for the patient about IV access. Occurred approximately 3 AM. Checked in again at 3:10 AM. At this time patient is awaiting using the bathroom we will attempt to try obtain IV access once again. After several attempts by multiple RNs I did place a right medial humerus peripheral IV. This IV unfortunately was nonfunctional and CT scan. I was able to obtain peripheral access at approximately 4:30 AM At 520 I asked if any nurses could do a ultrasound-guided IV. We will attempt this and reassess. There is a possibility of placing a line through a line company per hospitalist. Per cottrell blower is not available until potentially 10 or 11 AM. This point given elevated troponin and concern for PE I placed a right femoral vein central line. After central line was placed radiology called and said that they were not able to time the study probably for PE through a central line. I asked them to look at their timing protocols and adjust for the patient's needs. They said they are looking into it. ALL IMAGES (IF OBTAINED) HAVE BEEN PERSONALLY REVIEWED AND INTERPRETED BY MYSELF. EKG with normal sinus rhythm, normal axis, no STEMI. No evidence right axis deviation. Noted lateral non-specific t-wave changes that are similar to prior EKG from 2021. CBC without leukocytosis, severe anemia, no thrombocytopenia. BMP with hyperkalemia, GAILNA Initial troponin elevated consistent with myocardial ischemia, will send delta troponin BNP within normal limits suggestive of no increased ventricular stretch or significant heart strain CTA chest was attempted with patient's 1 and only IV did not allow for procedure to be completed In lieu of CTA chest obtained 1 view x-ray to rule out any intrathoracic pathology I have personally reviewed the patient's chest x-ray. Chest x-ray is unremarkable for pulmonary edema, pneumothorax, pneumonia or focal cardiopulmonary abnormality. Urine tox screen negative The synthesis of the patient's history, physical exam, labs, images show evidence of myocardial ischemia. EKG was nonischemic. Elevate troponin likely demand ischemia. Low suspicion for clot occlusion at this time. Elevate troponin may be secondary to demand ischemia given GALINA. Will be due to pulmonary embolism. Given patient difficult IV access did have to place a right femoral vein central venous catheter. Patient was consented. Consent form was signed. Procedure: Central line placement. Indication: Venous Access Consent: Written risks of bleeding, infection, and pneumothorax were explained. A time out was completed. Maximal sterile barrier technique was used including cap, gown, sterile gloves, large sheet, hand washing and chlorhexidine prep. Anesthesia: The area anesthetized with 1% lidocaine. Procedure: The right femoral vein vein was punctured with a 19 gauge finder needle, then a wire introducer was placed, a 7 [place] triple lumen catheter was placed using Seldinger technique. There were no complications. Blood return was low pressure and non-pulsatile dark blood. Line secured in place with suture, and a sterile bio-occlusive dressing was applied. Patient tolerated procedure well. The procedure was performed by Castro Lane DO The patient and/or family, caregivers express understanding. The patient and/or family, caregivers agrees with the plan. Shared decision making: I will have a discussion with the patient and or visitors regarding risk/benefits of further testing or admission. They will be made aware of of the risk/benefits inherent in this decision they will be given the opportunity to voice understanding. Total critical care time today provided was at least 0 minutes. This excludes separately billable procedures. Critical care time (if documented) is secondary to the patient having high probability of clinically significant/life threatening deterioration in the patient's condition which required my urgent intervention. Impression: 1. Chest pain 2. History of DVT 3. Elevated troponin 4. GALINA 5. Hyperkalemia 6. Hypoxia Dispo: Admit PCU observation Lab Data Labs: Laboratory Results - last 24 hr 08/05/23 08/05/23 03:20 05:00 WBC 6.3 RBC 4.69 Hgb 13.4 Hct 44.5 MCV 94.9 MCH 28.6 MCHC 30.1 L RDW Std Deviation 54.4 H RDW Coeff of Oleg 15.6 H Plt Count 244 MPV 10.5 Immature Gran % (Auto) 0.200 Neut % (Auto) 48.3 Lymph % (Auto) 37.6 Hardy % (Auto) 7.6 Eos % (Auto) 5.7 H Baso % (Auto) 0.6 Absolute Neuts (auto) 3.1 Absolute Lymphs (auto) 2.38 Nucleated RBC % 0 Sodium 137 Potassium 5.2 H Chloride 103 Carbon Dioxide 30.0 Anion Gap 4 L BUN 28 H Creatinine 1.30 H Estim Creat Clear Calc 39.31 Est GFR (MDRD) Af Amer 53 L Est GFR (MDRD) Non-Af 43 L BUN/Creatinine Ratio 21.5 H Glucose 115 H Calcium 9.2 Troponin I High Sens 73 H B-Natriuretic Peptide 7.2 Urine Opiates Screen POSITIVE H Urine Methadone Screen NEGATIVE Ur Barbiturates Screen NEGATIVE Ur Phencyclidine Scrn NEGATIVE Ur Amphetamines Screen NEGATIVE MDMA (Ecstasy) Screen NEGATIVE U Benzodiazepines Scrn NEGATIVE Urine Cocaine Screen NEGATIVE U Cannabinoids Screen NEGATIVE Ur Drug Screen Comment Radiography Diagnostic Testing: Clinical Impression(s) from Imaging Studies Chest X-Ray 08/05/23 05:05 IMPRESSION: No evidence of acute cardiopulmonary disease. Electronically Signed: Cole Huynh DO at 5:28 EST , Discharge Plan Triage Chief Complaint: Chest Pain ED Provider: Castro Lane Dx/Rx/DC Orders Primary Care Provider: Aquiles Jones
--- NOTE | 2023-08-05 02:27 | EKG12_ITS ---
Test Reason : DYSRHYTHMIA Blood Pressure : / mmHG Vent. Rate : 087 BPM Atrial Rate : 087 BPM P-R Int : 134 ms QRS Dur : 068 ms QT Int : 302 ms P-R-T Axes : 073 074 057 degrees QTc Int : 363 ms Normal sinus rhythm Nonspecific T wave abnormality Abnormal ECG Confirmed by NNAMDI CORTÉS, JOEL ([id number]), video editor ANNABELLE HWANG ([id number]) on 08/12/2023 10:10:41 AM Referred By: ILSA Confirmed By:DEE COTO MD
[2023-08-05 04:03] LABS: Absolute Lymphocyte Count 2.38 X10^3/uL (0.83-4.51); Absolute Neutrophil Count 3.1 X10^3/uL (2.0-7.7); Basophil# 0.04 X10^3/uL; Basophil% 0.6 % (0-1); Eosinophil# 0.36 X10^3/uL; Eosinophils% 5.7 % (0-5); Hematocrit 44.5 % (37-47); Hemoglobin 13.4 g/dL (12.0-15.0); Lymphocyte # 2.38 X10^3/ul (0.83-4.51); Lymphocyte % 37.6 % (19-41); Mean Corp Hgb Conc 30.1 g/dL (32-36); Mean Corpuscular Hgb 28.6 pg (27.0-32.0); Mean Corpuscular Volume 94.9 fL (81-99); Mean Platelet Vol. 10.5 fl (6.2-12.0); Monocyte# 0.48 X10^3/uL; Monocyte% 7.6 % (0-10); NRBC Flagged by Analyzer 0 % (0-5); Neutrophil # 3.06 X10^3/uL (2.7-7.7); Neutrophil % 48.3 % (47-70); Platelet Count 244 K/mm3 (150-450); RBC Distribution Width CV 15.6 % (11.6-14.6); RBC Distribution Width SD 54.4 fl (35.1-43.9); Red Blood Count 4.69 M/mm3 (4.2-5.4); White Blood Count 6.3 K/mm3 (4.4-11.0)
[2023-08-05 04:21] LABS: Anion Gap 4 (5-15); BUN 28 mg/dL (7-18); BUN/Creat Ratio 21.5 RATIO (10-20); Calcium,Total 9.2 mg/dL (8.5-10.1); Chloride 103 mmol/L (98-107); EST Glomerular Filtration Rate 43 mL/min (>60); Est Glom Filt Rate - Afr Amer 53 mL/min (>60); Estimated Creatinine Clearance 39.31 ml/min; Glucose 115 mg/dL (74-106); Potassium 5.2 mmol/L (3.5-5.1); Sodium Level 137 mmol/L (136-145); Troponin-I HS (w/2H Reflex) 73 pg/mL (3.0-54.0)
[2023-08-05 04:45] LABS: BNP,B-Type NATRIURETIC PEPTIDE 7.2 pg/mL (0-100)
[2023-08-05] MEDS: Aspirin 81 MG TAB.CHEW 324 MG PO (04:54)
--- NOTE | 2023-08-05 05:05 | RAD_ITS ---
INDICATION: chest pain EXAMINATION/TECHNIQUE: X-RAY - XR Chest 1 View COMPARISON: 02/15/2023. FINDINGS: LINES/DEVICES: None. LUNGS: No consolidation or evidence of an effusion. No evidence of edema or a pneumothorax. Hyperinflation of the lungs which may represent COPD. MEDIASTINUM AND CARDIOVASCULAR STRUCTURES: Cardiac silhouette is normal in size and contour. Mediastinum is unremarkable. BONES AND SOFT TISSUES: No acute abnormality. Chronic left rib fracture RAD/Chest 1 View (Portable) IMPRESSION: No evidence of acute cardiopulmonary disease. Electronically Signed: Cole Huynh DO at 5:28 EST ,
--- NOTE | 2023-08-05 05:25 | HP.PCM.HOS_ITS ---
HPI - General General Date of Admission: 08/05/23 Date of Service: 08/05/23 Chief Complaint: Chest pain. HPI Narrative The patient is a 68 y/o F w/ PMHx: Morbid Obesity, Chart reported thyroid disorder unclear type, PAD s/p LLE angioplasty/PCI, Hx VTE, COPD, EtOH abuse, Polysubstance abuse, Chronic Hepatitis C, HTN, Former tobacco use, Depression and Anxiety who presents to the [facility] ED on 08/05/23 with history of onset chest discomfort described as a burning and tightness in the sternal region starting approximately 1:15 AM with self administration of Mylanta without any marked improvement prompting self administration of oxycodone 5 mg without complete resolution prompting eventual ED evaluation. Notes that she was awake when the discomfort occurred and it was very short lasting rated 10 out of 10 in severity and resolved shortly after and has not recurred since. Unclear short of breath and this was unchanged. She denied any nausea or diaphoresis with this event. Patient had a rotater cuff repair on . In the ED patient administered full-strength aspirin therapy, famotidine 20 mg IV x1, Zofran 4 mg IV x1. Work-up in the ED included T96.9, heart rate 90, BP 163/85, respiratory rate 17, initially 93% on room air however desaturated to 88, improved to 96% on 2 L nasal cannula, CBC with WC 6.3, and 113.4, platelet 244 without marked shift, BMP with potassium 5.2, BUN/creatinine 28/1.30, glucose 115, troponin 73, UDS pending upon request evaluation of patient, EKG was sinus rhythm with no acute evidence of ischemia with lateral nonspecific T wave changes similar to previous, CXR with no acute evidence of ischemia. CTPA ordered upon requested evaluation of patient given patient history of onset of chest discomfort with recent rotator cuff repair on 07/30/2023 however unfortunately patient per discussion with ED physician does not have appropriate access to obtain the CT. Discussed with ED physician and given the fact that she would potentially need a stress test she would likely not be able to have both a V/Q and a nuclear stress test therefore requested ED initiate call for access placement with access company for potentially midline or other access to be placed to proceed with ED ordered CTPA as best course. [facility] Medical History (Updated 11/06/23 @ 05:[address] Miguelina Castanon MD) Alcohol abuse Chronic hepatitis C without hepatic coma Cocaine abuse COPD (chronic obstructive pulmonary disease) DVT (deep venous thrombosis) Euthyroid sick syndrome H/O cocaine abuse H/O ETOH abuse HTN (hypertension) Lumbar herniated disc Pinched nerve in neck Presence of stent in artery Smoker Thyroid disorder Home Medications albuterol sulfate 90 mcg/actuation aerosol inhaler 2 puff IH Q4H PRN PRN Wheezing 08/26/20 [History Last Taken 08/26/20] aspirin 81 mg chewable tablet 81 mg PO DAILY BLOOD CLOT 08/26/20 [History Last Taken 09/12/20] lisinopril 10 mg tablet 20 mg PO DAILY bp 08/26/20 [History Last Taken 09/12/20] tizanidine 2 mg capsule 2 mg PO Q8 PRN Muscle Spasm 08/26/20 [History Last Taken 08/26/20] atorvastatin 40 mg tablet 40 mg PO DAILY 02/07/21 [History Last Taken Unknown] furosemide 20 mg tablet 20 mg PO DAILY 10/17/22 [History Last Taken Unknown] potassium chloride 10 mEq capsule,extended release 10 meq PO DAILY 10/17/22 [History Last Taken Unknown] budesonide 160 mcg-glycopyr 9 mcg-formot 4.8 mcg/actuation HFA inhaler (Breztri Aerosphere) 2 inh inhalation BID 02/08/23 [History Last Taken Unknown] etodolac 400 mg tablet 400 mg PO BID 02/08/23 [History Last Taken Unknown] gabapentin 300 mg capsule 300 mg PO TID nerve pain 02/08/23 [History Last Taken Unknown] ipratropium 0.5 mg-albuterol 3 mg (2.5 mg base)/3 mL nebulization soln 3 ml inhalation TID 02/08/23 [History Last Taken Unknown] meloxicam 15 mg tablet 15 mg PO DAILY 02/08/23 [History Last Taken Unknown] oxybutynin chloride 10 mg tablet,extended release 24 hr 10 mg PO DAILY 02/08/23 [History Last Taken Unknown] diclofenac sodium 1 % topical gel (Voltaren Arthritis Pain) 2 g topical BID PRN pain 02/15/23 [History Last Taken Unknown] oxycodone-acetaminophen 5 mg-325 mg tablet (Percocet) 1 tab PO Q6H PRN pain 3 days #14 tabs 02/15/23 [Rx Last Taken Unknown] oxycodone-acetaminophen 5 mg-325 mg tablet (Percocet) 1 tab PO Q6H pain 3 days #12 tabs 06/04/23 [Rx Last Taken Unknown] prednisone 20 mg tablet 60 mg (3 x 20 mg) PO DAILY #15 TABLETS 06/04/23 [Rx Last Taken Unknown] gabapentin 100 mg capsule 400 mg PO QHS 08/05/23 [History Last Taken Unknown] omeprazole 40 mg capsule,delayed release 40 mg PO DAILY 08/05/23 [History Last Taken Unknown] Allergy/AdvReac Type Severity Reaction Status Date / Time No Known Allergies Allergy Verified 08/05/23 02:19 Family History (Updated 08/05/23 @ 05:[address] Miguelina Castanon MD) Mother Hypertension Other Alcoholism other (Patient does not know her paternal family history.) Surgical History (Updated 08/05/23 @ 05:[address] Miguelina Castanon MD) H/O vascular surgery History of rotator cuff surgery Stenosis of artery of left lower extremity Social History (Updated 08/05/23 @ 05:[address] Miguelina Castanon MD) household members: none Smoking Status: Former smoker how long ago did patient quit smoking: January 2022 alcohol intake: former substance use type: former substance user Date of last use: 03/2020 and crack/cocaine caffeine: Yes Type: carbonated beverages and coffee ROS ROS Narrative Admission Review of Systems: CONSTITUTIONAL: No weight loss, fever, chills, + weakness or fatigue. HEENT: Eyes: No visual loss, blurred vision, double vision or yellow sclerae. Ears, Nose, Throat: No hearing loss, sneezing, congestion, runny nose or sore throat. SKIN: No rash or itching, lesions, wounds. CARDIOVASCULAR: + chest pain. No palpitations, edema, orthopnea, syncopal even ts. RESPIRATORY: + Chronic shortness of breath. No cough or sputum, wheezing, hemoptysis. GASTROINTESTINAL: No anorexia, nausea, vomiting or diarrhea, abdominal pain, melena, BRBPR. GENITOURINARY: No dysuria, frequency, urgency or retention. NEUROLOGICAL: No headache, dizziness, syncope, paralysis, ataxia, numbness or tingling in the extremities, focal weakness, change in bowel or bladder control, seizure. MUSCULOSKELETAL: + muscle, back pain, joint pain or stiffness. HEMATOLOGIC: No anemia, bleeding or bruising. LYMPHATICS: No enlarged nodes. No history of splenectomy. PSYCHIATRIC: + history of depression or anxiety. ENDOCRINOLOGIC: No reports of sweating, cold or heat intolerance. No polyuria or polydipsia. ALLERGIES: No history of asthma, hives, eczema or rhinitis. Vital Signs Vital Signs Vital Signs: 08/05/23 02:19 08/05/23 02:19 08/05/23 02:26 Temperature 96.9 F L Temperature Source Temporal Pulse Rate 90 Respiratory Rate 17 Respiratory Effort Normal Non-Labored Blood Pressure 163/85 H Blood Pressure Mean 111 Pulse Ox 93 Oxygen Delivery Method Room Air Oxygen Flow Rate (L/min) 08/05/23 04:58 08/05/23 02:27 Temperature Temperature Source Pulse Rate 85 Respiratory Rate 15 Respiratory Effort Blood Pressure 112/97 H Blood Pressure Mean 102 Pulse Ox 96 88 Oxygen Delivery Method Nasal Cannula Room Air Oxygen Flow Rate (L/min) 2 Weight Weight: 242 lb 4.608 oz Body Mass Index (BMI) 39.1 Physical Exam Narrative Physical Examination: General: Awake, alert, oriented x 3 and cooperative, seated upright in the ED bed, denies any ongoing chest discomfort. Skin: Normal color, normal turgor, no icterus, no cyanosis. HEENT: AT/NC, EOMI, PERRLA, MMM, no carotid bruits or JVD noted. Lungs: Mildly diminished, greater bases, appropriate effort, no rales, ronchi or wheezing. Heart: Regular rate and rhythm; no gallop, rub audible. Abdomen: Soft, morbidly obese, NTTP, mildly hyperactive BS, no appreciated dist ention or HSM however difficult given habitus. Extremities: No cyanosis, no clubbing or marked peripheral pitting edema, status post recent left upper extremity rotator cuff repair with arm in sling, able to move fingers, pulses intact. Neurological: Patient awake, alert, oriented as noted, cognitive function intact; pupils equally reactive to light and accommodation, cranial nerves grossly normal, moving all 4 extremities except expected limitation left upper extremity with recent rotator cuff repair, strength accordingly moderately globally decreased. Psychiatric: Affect appears fatigued otherwise normal, no acute evidence of depressive or anxiety feelings. Results Lab / Micro Data 08/05/23 03:20 08/05/23 03:20 Labs: Laboratory Results - last 24 hr 08/05/23 03:20: WBC 6.3, RBC 4.69, Hgb 13.4, Hct 44.5, MCV 94.9, MCH 28.6, MCHC 30.1 L, RDW Std Deviation 54.4 H, RDW Coeff of Oleg 15.6 H, Plt Count 244, MPV 10.5, Immature Gran % (Auto) 0.200, Neut % (Auto) 48.3, Lymph % (Auto) 37.6, [place] % (Auto) 7.6, Eos % (Auto) 5.7 H, Baso % (Auto) 0.6, Absolute Neuts (auto) 3.1, Absolute Lymphs (auto) 2.38, Nucleated RBC % 0, Sodium 137, Potassium 5.2 H , Chloride 103, Carbon Dioxide 30.0, Anion Gap 4 L, BUN 28 H, Creatinine 1.30 H, Estim Creat Clear Calc 39.31, Est GFR (MDRD) Af Amer 53 L, Est GFR (MDRD) Non-Af 43 L, BUN/Creatinine Ratio 21.5 H, Glucose 115 H, Calcium 9.2, Troponin I High Sens 73 H, B-Natriuretic Peptide 7.2 08/05/23 05:00: Ur Drug Screen Comment Assessment & Plan Assessment/Plan (1) Chest pain: PLAN: Plan The patient is a 68 y/o F w/ PMHx: Morbid Obesity, Chart reported thyroid disorder unclear type, PAD s/p LLE angioplasty/PCI, Hx VTE, COPD, EtOH abuse, Polysubstance abuse, Chronic Hepatitis C, HTN, Former tobacco use, Depression and Anxiety who presents to the [facility] ED on 08/05/23 with history of onset chest discomfort described as a burning and tightness in the sternal region starting approximately 1:15 AM with self administration of Mylanta without any marked improvement prompting self administration of oxycodone 5 mg without complete resolution prompting eventual ED evaluation. #1. Chest Pain with indeterminate cardiac enzyme with Hypoxia: EKG in ED sinus rhythm with no acute evidence of ischemia with lateral nonspecific T wave changes similar to previous, CTPA pending upon request evaluation of patient, initial trop 73. Will admit to PCU, place on a monitored bed to assure no acute myocardial infarction with serial cardiac enzymes and EKGs. CTPA unable to be obtained secondary to lack of access per discussion with ED physician. Access company consulted and pending. Will obtain CTPA once access appropriately placed and if negative for any emboli or etiology precluding stress and repeat serial cardiac enzymes remain at least similar and did not further markedly elevate with also similar EKGs would need to then pursue a.m. cardiac stress testing. Magnesium level requested. FLP in AM. ECHO requested. Urine drug screen requested. ASA, NG. #2. Chronic COPD: Will continue oxygen supplementation with wean as tolerated to room air, new ATC DuoNeb therapy as well as temporally hold Breztri treatment and transition to ATC budesonide therapy, PRN albuterol, HOB, IS parameters. #3. Hypokalemia: Potassium 5.2, minimally elevated, continue to just hydration, repeat BMP in AM. #4. History of polysubstance abuse with chronic hepatitis C: Reportedly clean since 03/2020 with history of crack and cocaine usage, urine drug screen pending, unclear exact treatment history for hepatitis C. #5. History of alcohol abuse: Reportedly sober, encourage continued sobriety. #6. PAD: History of lower extremity angioplasty/PCI, will continue aspirin, statin, hypertensive regimen as noted. #7. Hypertension: Continue home regimen including lisinopril, Lasix, PRN hydralazine. #8. Hyperlipidemia: We will continue patient on statin therapy, FLP in AM. #9. Former tobacco use: Encourage continued tobacco cessation. #10. Morbid Obesity: Weight loss and lifestyle changes encouraged. #11. Chart reported thyroid disorder, unclear type: Clarify medications but currently does not appear to be on any thyroid medications, TSH and free T4 requested. #12. Anxiety and depression: Per current list not on any chronic regimen, encourage continued outpatient follow-up and evaluation. #13. History of VTE: Patient with chart reported history of previous DVT, not currently chronically anticoagulated. #14. DVT prophylaxis: Lovenox, therapeutic dosing given awaiting CTPA with concern for pulmonary emboli as potential chest pain etiology given high risk with recent operative intervention however if CTPA is negative for PE then will de-escalate to chemoprophylactic dosing only. #15. CODE STATUS: Full code. Charges/Coding Visit Charges Inpatient E&M: 12652 Init Hosp L2
[2023-08-05 05:52] LABS: Reflex Troponin-HS? (from REC) Y
[2023-08-05 05:55] LABS: Amphetamine Urine VISTA NEGATIVE (<1000 ng/mL); Barbiturate Urine VISTA NEGATIVE (< 200 ng/mL); Benzodiazepine Urine VISTA NEGATIVE (< 200 ng/mL); Cocaine Urine VISTA NEGATIVE (< 300 ng/mL); Ecstacy Urine VISTA NEGATIVE (< 500 ng/mL); Methadone Urine VISTA NEGATIVE (< 300 ng/mL); PCP Urine VISTA NEGATIVE (< 25 ng/mL); THC Urine VISTA NEGATIVE (< 50 ng/mL); Vista UDS pH Range 7
[2023-08-05 05:58] LABS: Magnesium 2.6 mg/dL (1.6-2.6)
[2023-08-05] MEDS: 0.9% Normal Saline (500mL Bag) 500 ML 999 ML IV (07:36)
[2023-08-05] MEDS: Ondansetron 4 MG/2 ML Vial IV (07:36)
[2023-08-05] MEDS: Famotidine 200 MG/20 ML MDV 20 MG in 0.9% Normal Saline (Pres. free 8 ML 300 MG IV (07:36)
--- NOTE | 2023-08-05 08:04 | PN.HOSP_ITS ---
Reason for Visit Reason for Visit: Diagnoses Chest pain, unspecified (08/05/23) Subjective Subjective Chest pain. Not active at present. Denied any radiation. Denied any diaphoresis or nausea and vomiting. Stating that she has to urinate quite a bit and is upset currently because her sling from her recent rotator cuff repair is sliding off. Objective Data Objective Data Vital Signs: Vital Signs Temp Pulse Resp BP Pulse Ox O2 Del Method O2 Flow Rate 36.1 C L 89 16 112/97 H 98 Nasal Cannula 2 08/05/23 02:19 08/05/23 07:59 08/05/23 07:59 08/05/23 07:59 08/05/23 07:59 08/05/23 04:58 08/05/23 04:58 Oxygen Flow Rate (L/min) 2 Oxygen Delivery Method Nasal Cannula Weight: 109.9 kg Body Mass Index (BMI) 39.1 Intake & Output: Intake and Output for Last 24 Hours 08/04/23 08/04/23 08/05/23 00:59 23:59 23:59 Intake Total Balance Lab / Micro Data 08/05/23 03:20 08/05/23 03:20 Labs: Laboratory Results - last 24 hr 08/05/23 03:20: WBC 6.3, RBC 4.69, Hgb 13.4, Hct 44.5, MCV 94.9, MCH 28.6, MCHC 30.1 L, RDW Std Deviation 54.4 H, RDW Coeff of Oleg 15.6 H, Plt Count 244, MPV 10.5, Immature Gran % (Auto) 0.200, Neut % (Auto) 48.3, Lymph % (Auto) 37.6, M evangelina % (Auto) 7.6, Eos % (Auto) 5.7 H, Baso % (Auto) 0.6, Absolute Neuts (auto) 3.1, Absolute Lymphs (auto) 2.38, Nucleated RBC % 0, Sodium 137, Potassium 5.2 H , Chloride 103, Carbon Dioxide 30.0, Anion Gap 4 L, BUN 28 H, Creatinine 1.30 H, Estim Creat Clear Calc 39.31, Est GFR (MDRD) Af Amer 53 L, Est GFR (MDRD) Non-Af 43 L, BUN/Creatinine Ratio 21.5 H, Glucose 115 H, Calcium 9.2, Troponin I High Sens 73 H, B-Natriuretic Peptide 7.2 08/05/23 05:00: Urine Opiates Screen POSITIVE H, Urine Methadone Screen NEGATIVE, Ur Barbiturates Screen NEGATIVE, Ur Phencyclidine Scrn NEGATIVE, Ur Amphetamines Screen NEGATIVE, MDMA (Ecstasy) Screen NEGATIVE, U Benzodiazepines Scrn NEGATIVE, Urine Cocaine Screen NEGATIVE, U Cannabinoids Screen NEGATIVE, Ur Drug Screen Comment 08/05/23 05:30: Magnesium 2.6 Radiography Diagnostic Testing: Radiology Impression Chest X-Ray 08/05/23 05:05 IMPRESSION: No evidence of acute cardiopulmonary disease. Electronically Signed: Cole HuynhDO tamra at 5:28 EST , Physical Exam Const Constitutional Narrative: Nontoxic. Anxious. No respiratory distress. No conversational dyspnea. HEENT head/scalp atraumatic Resp normal respiratory effort, no retractions, no use of accessory muscles and clear to auscultation bilaterally Cardio regular rate, regular rhythm, S1 normal heart sound and S2 normal heart sound GI normal to inspection, nondistended, normoactive bowel sounds, soft to palpation, non-tender and non-distended Extremity Extremity Narrative: Left arm in sling with dressing over the left shoulder. Assessment & Plan Assessment/Plan (1) Chest pain: QUALIFIERS: Chest pain type: unspecified Qualified Code(s): R07.9 - Chest pain, unspecified PLAN: Chest Pain with indeterminate cardiac enzyme with Hypoxia: EKG in ED sinus rhythm with no acute evidence of ischemia with lateral nonspecific T wave changes similar to previous, Patient with difficult IV access. Femoral central line placed but the ER physician was notified by radiology that they would not be able to do the contrast timing through that. D-dimer is elevated. Since they are unable to run it through the femoral line, patient will need to have a power PICC placed after which, patient can undergo a CT angiogram. FLP in AM. ECHO requested. Urine drug screen + opiates. PLAN: Plan Chronic conditions: * Chronic COPD: Will continue oxygen supplementation with wean as tolerated to room air, new ATC DuoNeb therapy as well as temporally hold Breztri treatment and transition to ATC budesonide therapy, PRN albuterol, HOB, IS parameters. * Hypokalemia: Potassium 5.2, minimally elevated, continue to just hydration, repeat BMP in AM. * History of polysubstance abuse with chronic hepatitis C: Reportedly clean since 03/2020 with history of crack and cocaine usage, urine drug screen pending, unclear exact treatment history for hepatitis C. * History of alcohol abuse: Reportedly sober, encourage continued sobriety. * PAD: History of lower extremity angioplasty/PCI, will continue aspirin, statin, hypertensive regimen as noted. * Hypertension: Continue home regimen including lisinopril, Lasix, PRN hydralazine. * Hyperlipidemia: We will continue patient on statin therapy, FLP in AM. * Former tobacco use: Encourage continued tobacco cessation. * Morbid Obesity: Weight loss and lifestyle changes encouraged. * Chart reported thyroid disorder, unclear type: Clarify medications but currently does not appear to be on any thyroid medications, TSH and free T4 requested. * Anxiety and depression: Per current list not on any chronic regimen, encourage continued outpatient follow-up and evaluation. * History of VTE: Patient with chart reported history of previous DVT, not currently chronically anticoagulated. DVT prophylaxis: Lovenox, therapeutic dosing given awaiting CTPA with concern for pulmonary emboli as potential chest pain etiology given high risk with recent operative intervention however if CTPA is negative for PE then will de- escalate to chemoprophylactic dosing only. CODE STATUS: Full code. Discussed with the patient's friend at bedside. Charges/Coding Visit Charges Inpatient E&M: 45869 Subs Hosp L2
[2023-08-05 08:07] LABS: Troponin-I HS 70 pg/mL (3.0-54.0)
--- NOTE | 2023-08-05 08:16 | ECHOCS_ITS ---
Reason For Study: CAD/ASHD Procedure This was a 2D Doppler, Color Flow transthoracic echocardiogram. The study was technically difficult. Patient scanned supine due to left rotator cuff surgery on (07/30/2023), patient unable to hold still for exam. Contrast injection was performed. Exam performed portable in patient room. Left Ventricle Normal LV size. The estimated ejection fraction is 70 %. No evidence for diastolic dysfunction. No regional wall motion abnormalities noted. Right Ventricle Normal RV size. Normal systolic function. Atria Normal left atrium. Normal right atrium. No doppler evidence for ASD. Mitral Valve There is no mitral valve stenosis. No mitral valve insufficiency. Tricuspid Valve There is no tricuspid stenosis. No tricuspid valve insufficiency. Unable to estimate RV systolic pressure due to inadequate jet, pulmonary artery pressure probably normal. Aortic Valve Trisinus/trileaflet aortic valve. There is no aortic stenosis. No aortic valve insufficiency. Pulmonic Valve There is no pulmonic valvular stenosis. No pulmonic valve insufficiency. Great Vessels Normal aortic root. Pericardium/Pleural No pericardial effusion. Medication Diluted definity 3ml given slow IV push to enhance endocardial definition. MMode/2D Measurements & Calculations LVIDd: 4.1 cm IVSd: 0.94 cm LA dimension: 2.6 cm LVIDs: 2.7 cm LVPWd: 0.98 cm RVDd: 3.7 cm FS: 34.8 % LAV(MOD-bp): 48.6 ml LA A4 area: 18.7 cm2 RA A4 area: 16.4 cm2 LAV(MOD-bp) Indexed: 22.4 ml/m2 LAV(MOD-sp2): 42.5 ml LAV(MOD-sp4): 50.5 ml TAPSE: 1.6 cm Time Measurements MV dec time: 0.28 sec Doppler Measurements & Calculations MV E max john: 58.5 cm/sec Lat Peak E' John: 10.1 cm/sec Med Peak E' John: 6.6 cm/sec MV A max john: 77.6 cm/sec E/E' lat: 5.8 E/E' med: 8.8 MV E/A: 0.75 MV V2 max: 83.7 cm/sec MV P1/2t max john: 67.3 cm/sec Ao V2 max: 135.3 cm/sec MV max P.8 mmHg MV P1/2t: 87.6 msec Ao max P.3 mmHg MV V2 mean: 45.9 cm/sec MV dec slope: 225.1 cm/sec2 Ao V2 mean: 94.6 cm/sec MV mean P.98 mmHg MVA(P1/2t): 2.5 cm2 Ao mean P.0 mmHg MV V2 VTI: 19.1 cm Ao V2 VTI: 29.0 cm AV (velocity ratio): 0.85 LV V1 max: 116.4 cm/sec PA V2 max: 66.2 cm/sec LV V1 max P.4 mmHg LV V1 mean P.8 mmHg LV V1 mean: 77.1 cm/sec LV V1 VTI: 24.7 cm ECHO/Echo Complete W/ Contrast Interpretation Summary The estimated ejection fraction is 70 %. No evidence for diastolic dysfunction. Ordering Physician: Miguelina Castanon Referring Physician: Aquiles Jones Performed By: Rick Pruitt RCS
[2023-08-05 09:20] LABS: D-Dimer Quantitative (DVT/PE) 9.13 FEU/ug/m (0.27-0.49)
[2023-08-05] MEDS: Gabapentin 300 MG Capsule PO ×2 (11:45→17:18)
[2023-08-05] MEDS: Enoxaparin 120 MG/0.8 ML Syringe 110 MG SC ×2 (11:46→20:38)
[2023-08-05] MEDS: 0.9% Normal Saline (1000mL) 1,000 ML 100 ML IV (11:47)
[2023-08-05] MEDS: Aspirin 81 MG TAB.CHEW PO (11:47)
[2023-08-05] MEDS: Lisinopril 20 MG Tablet PO (11:47)
[2023-08-05] MEDS: Pantoprazole Sodium 40 MG Tablet PO (11:47)
[2023-08-05] MEDS: Furosemide 20 MG Tablet PO (11:47)
[2023-08-05] MEDS: Ipratropium/Albuterol Sulfate 3 ML AMPUL.NEB INHALATION ×2 (13:04→19:34)
[2023-08-05 13:28] LABS: Troponin-I HS 64 pg/mL (3.0-54.0)
--- NOTE | 2023-08-05 19:11 | CASEMGMT ---
Social Work This chief writer received report patient is from [facility]. Met with patient in room and introduced to SW role. While this chief writer in room, nursing in room working on ultrasound guided IV insertion. Nursing and patient both indicated that okay for SW to be in room. Introduced self to patient and checking in about discharge planning. Patient reports has lived in [place] for 3 years, but most family is in the [place] area. Patient reports has surgery at [facility] and was placed at [facility] last Saturday08.02.23 for skilled care, which was to start today. This chief writer inquired whether this is patient's discharge plan, to return to [facility]. Patient indicated, where else am I going to go? as needs to get rehab. Patient then went on to reports that [facility] but was told there were no beds. Patient asked this chief writer to check on [facility] again. Let patient know there still may be not beds, but willing to check. Patient asked if this chief writer had any pull to get patient to TCU. Let patient know this chief writer can check, but unsure about availability. If no beds, then plan would be to go to [facility] again. This chief writer agreed to let patient know and update today if time allows, or tomorrow. Spoke with Milla in [facility]. At this time unit is at max capacity with [facility]. Unable to accept patient at this time. Plan: SW to follow up with patient again on 08.06.23 to update about [facility] not being an option. Due to patient's insurance, precert will be needed for patient to return to any . SW to follow and assist. -APARNA Enciso
[2023-08-05] MEDS: Budesonide Respules 0.5 MG/2 ML AMPUL.NEB. INHALATION (19:34)
[2023-08-05] MEDS: Atorvastatin Calcium 40 MG Tablet PO (20:38)
[2023-08-05] MEDS: Gabapentin 400 MG Capsule PO (20:38)
[2023-08-06] VITALS (7 sets, daily range): BP systolic 90–130; BP diastolic 50–67; PULSE 72–89; RESP 16–20; TEMP 36.2–36.7; O2SAT 93–98; BMI 29.9
[2023-08-06] MEDS: Acetaminophen 325 MG Tablet 650 MG PO ×4 (03:14→22:30)
[2023-08-06] MEDS: oxyCODONE 5 MG Tablet PO ×3 (05:45→20:30)
--- NOTE | 2023-08-06 06:51 | NURSING ---
Patient requested help through call light, nurse Kvng went into room. Patient was screaming saying her chest was hurting but wanted to talk to administration stating we aren't helping her pain. While patient was screaming, nurse Kvng tried to deescalate by saying that she needed to describe to this nurse her pain she was experiencing and that he was here to help and had given all her prescribed pain medicine when requested if it was available. She yelled at this nurse to get out of the room and not come back, and continuing to scream for administration. This nurse attempted to educate the patient that he was there to help and would contact physician for additional orders but patient continued to scream over this nurse to get out the room and to not come back. Notified discharge door operator.
--- NOTE | 2023-08-06 08:16 | CASEMGMT ---
Social Work As per initial stock clipper, pt does not have LW/POA and declined further information. DELANEY Barth
--- NOTE | 2023-08-06 08:35 | PCM.PN.HOSP ---
Reason for Visit Reason for Visit: Diagnoses Chest pain, unspecified (08/05/23) Subjective Subjective No further chest pain. Objective Data Objective Data Vital Signs: Vital Signs Temp Pulse Resp BP Pulse Ox O2 Del Method O2 Flow Rate 36.6 C 89 16 110/52 L 97 Nasal Cannula 2 08/06/23 03:24 08/06/23 03:24 08/06/23 03:24 08/06/23 03:24 08/06/23 03:24 08/06/23 03:24 08/06/23 03:24 Oxygen Flow Rate (L/min) 2 Oxygen Delivery Method Nasal Cannula Weight: 84.1 kg Body Mass Index (BMI) 29.9 Intake & Output: Intake and Output for Last 24 Hours 08/04/23 08/05/23 08/06/23 23:59 23:59 23:59 Intake Total 1695 / 1935 340 / 340 Output Total 550 / 750 500 / 500 Balance 1145 / 1185 -160 / -160 Lab / Micro Data 08/06/23 11:17 08/06/23 11:17 Labs: Laboratory Results - last 24 hr 08/05/23 05:30: D-Dimer Quant (PE/DVT) 9.13 H* 08/05/23 12:50: Troponin I High Sens 64 H Radiography Diagnostic Testing: Radiology Impression Echocardiogram 08/05/23 08:16 Interpretation Summary The estimated ejection fraction is 70 %. No evidence for diastolic dysfunction. Ordering Physician: Miguelina Castanon Referring Physician: Aquiles Jones Performed By: Rick Pruitt RCS Physical Exam Const alert and no apparent distress HEENT head/scalp atraumatic and moist oral mucous membranes Resp normal respiratory effort, no retractions, no use of accessory muscles and clear to auscultation bilaterally Cardio regular rate, regular rhythm, S1 normal heart sound and S2 normal heart sound GI normal to inspection, nondistended, normoactive bowel sounds, soft to palpation, non-tender and non-distended Assessment & Plan Assessment/Plan (1) Chest pain: QUALIFIERS: Chest pain type: unspecified Qualified Code(s): R07.9 - Chest pain, unspecified PLAN: Chest Pain with indeterminate cardiac enzyme with Hypoxia: EKG in ED sinus rhythm with no acute evidence of ischemia with lateral nonspecific T wave changes similar to previous, Patient with difficult IV access. Femoral central line placed but the ER physician was notified by radiology that they would not be able to do the contrast timing through that. D-dimer is elevated. Echocardiogram shows an EF of 70%. No diastolic dysfunction. Stress test negative. VQ scan pending. Urine drug screen + opiates. PLAN: Plan Chronic conditions: Chronic COPD: Will continue oxygen supplementation with wean as tolerated to room air, new ATC DuoNeb therapy as well as temporally hold Breztri treatment and transition to ATC budesonide therapy, PRN albuterol, HOB, IS parameters. Hypokalemia: Potassium 5.2, minimally elevated, continue to just hydration, repeat BMP in AM. History of polysubstance abuse with chronic hepatitis C: Reportedly clean since 03/2020 with history of crack and cocaine usage, urine drug screen pending, unclear exact treatment history for hepatitis C. History of alcohol abuse: Reportedly sober, encourage continued sobriety. PAD: History of lower extremity angioplasty/PCI, will continue aspirin, statin, hypertensive regimen as noted. Hypertension: Continue home regimen including lisinopril, Lasix, PRN hydralazine. Hyperlipidemia: We will continue patient on statin therapy, FLP in AM. Former tobacco use: Encourage continued tobacco cessation. Morbid Obesity: Weight loss and lifestyle changes encouraged. Chart reported thyroid disorder, unclear type: Clarify medications but currently does not appear to be on any thyroid medications, TSH and free T4 requested. Anxiety and depression: Per current list not on any chronic regimen, encourage continued outpatient follow-up and evaluation. History of VTE: Patient with chart reported history of previous DVT, not currently chronically anticoagulated. DVT prophylaxis: Lovenox, therapeutic dosing given awaiting CTPA with concern for pulmonary emboli as potential chest pain etiology given high risk with recent operative intervention however if CTPA is negative for PE then will de-escalate to chemoprophylactic dosing only. CODE STATUS: Full code. Charges/Coding Visit Charges Inpatient E&M: 98818 Subs Hosp L2
--- NOTE | 2023-08-06 09:18 | CASEMGMT ---
Discharge Planning Updates sent to [facility]. Emmie Perkins, Discharge Planning Asst.
--- NOTE | 2023-08-06 09:46 | CASEMGMT ---
Social Work SW let pt know that TCU will not be able to take her. Pt is agreeable to return to [facility]. SW also double checked w/pt about LW/POA, pt confirms does not have these documents, not interested in completing them at this time. DELANEY Barth
--- NOTE | 2023-08-06 10:14 | CASEMGMT ---
Met with patient to complete [employer] GU[employer]MAN form. [employer] form explained to patient who voiced understanding and signed form. Original form placed in pt?s chart and copy provided to?patient. Emmie Perkins, Discharge Planning Asst
[2023-08-06] MEDS: Gabapentin 300 MG Capsule PO ×2 (11:00→16:13)
[2023-08-06] MEDS: Pantoprazole Sodium 40 MG Tablet PO (11:00)
[2023-08-06] MEDS: Aspirin 81 MG TAB.CHEW PO (11:00)
[2023-08-06 11:26] LABS: Absolute Lymphocyte Count 2.34 X10^3/uL (0.83-4.51); Absolute Neutrophil Count 2.5 X10^3/uL (2.0-7.7); Basophil# 0.04 X10^3/uL; Basophil% 0.7 % (0-1); Eosinophil# 0.38 X10^3/uL; Eosinophils% 6.4 % (0-5); Lymphocyte # 2.34 X10^3/ul (0.83-4.51); Lymphocyte % 39.6 % (19-41); Mean Corp Hgb Conc 30.8 g/dL (32-36); Mean Corpuscular Hgb 28.8 pg (27.0-32.0); Mean Corpuscular Volume 93.5 fL (81-99); Mean Platelet Vol. 9.8 fl (6.2-12.0); Monocyte% 10.2 % (0-10); NRBC Flagged by Analyzer 0 % (0-5); Neutrophil # 2.54 X10^3/uL (2.7-7.7); Neutrophil % 42.9 % (47-70); Platelet Count 235 K/mm3 (150-450); RBC Distribution Width CV 15.3 % (11.6-14.6); RBC Distribution Width SD 52.4 fl (35.1-43.9); Red Blood Count 4.17 M/mm3 (4.2-5.4); White Blood Count 5.9 K/mm3 (4.4-11.0)
[2023-08-06] MEDS: Lisinopril 20 MG Tablet PO (12:06)
[2023-08-06] MEDS: Furosemide 20 MG Tablet PO (12:07)
[2023-08-06 12:10] LABS: ALB/GLOB Ratio 0.8 RATIO (0.9-2.4); AST(SGOT) 14 U/L (15-37); Alanine Aminotransfer ALT/SGPT 20 U/L (13-56); Albumin, Serum 2.8 g/dL (3.2-5.0); Alkaline Phosphatase 77 U/L (45-117); Anion Gap 1 (5-15); BUN 25 mg/dL (7-18); BUN/Creat Ratio 17.7 RATIO (10-20); Calcium,Total 8.4 mg/dL (8.5-10.1); Chloride 105 mmol/L (98-107); Cholesterol 131 mg/dL (200); Creatinine, Serum 1.41 mg/dL (0.55-1.02); EST Glomerular Filtration Rate 40 mL/min (>60); Est Glom Filt Rate - Afr Amer 48 mL/min (>60); Estimated Creatinine Clearance 36.24 ml/min; Globulin 3.4 g/dL (2.2-4.2); Glucose 112 mg/dL (74-106); High Density Lipoprotein 46 mg/dL; Potassium 4.4 mmol/L (3.5-5.1); Protein, Total 6.2 g/dL (6.4-8.2); Sodium Level 138 mmol/L (136-145); Triglycerides 108 mg/dL; Very Low Density Lipoprotein 22 mg/dL (5-40)
[2023-08-06] MEDS: Ipratropium/Albuterol Sulfate 3 ML AMPUL.NEB INHALATION ×2 (13:21→19:18)
--- NOTE | 2023-08-06 13:43 | STRESSREP_ITS ---
Stress Test Report Date: 08/06/2023 Procedure: Pharmacologic stress nuclear imaging study Indications: Chest pain Consent: Per the patient Procedure: The patient underwent pharmacologic (Regadenoson) evaluation with a peak heart rate of 100 beats per minute (65%predicted maximal heart rate) and a peak blood pressure of 122/62 mmHg. The baseline ECG demonstrated normal sinus rhythm, nonspecific ST-T changes. EKG during lexiscan infusion revealed no significant ischemic changes. EKG post infusion revealed no significant ischemic changes [There were no cardiac dysrhythmias pretest, during pharmacologic infusion, or recovery]. [There was no complaint of chest discomfort during pharmacologic infusion or recovery]. The examination was discontinued secondary to completion of protocol. Impression: 1. Lexiscan stress test test is negative for Lexiscan infusion induced EKG changes of ischemia. 2. Lexiscan stress test test is negative for Lexiscan infusion induced chest pain. 3. Results of the nuclear portion of the test is as below Myocardial perfusion imaging study: Technique: The patient was injected with 15 millicuries of technetium 99m Cardiolite and subsequently rest SPECT Cardiolite nuclear imaging was obtained in the horizontal long, vertical long, and short axis views. The patient underwent pharmacologic [Regadenoson 0.4mg] evaluation. Please see above for details. The patient was injected with 44.8 millicuries of technetium 99m Cardiolite and subsequently stress SPECT Cardiolite nuclear imaging was obtained in the horizontal long, vertical long, and short axis views. A gated Cardiolite study at peak stress was obtained. Interpretation: Rest and stress SPECT Cardiolite nuclear imaging status post realignment, normalization, and attenuation correction demonstrate overall normal myocardial radioisotope uptake. Gated images reveal no significant regional wall motion abnormalities. The reported LVEF is greater than 70%. Impression: 1. There is no evidence of significant ischemia or infarction. 2. Estimated ejection fraction is greater than 70%. This note was generated with [facility] software. It may contain incorrect words, spelling, and punctuation that were not noted in checking the note before signing.
--- NOTE | 2023-08-06 16:08 | CHAPLAIN ---
Type of Pastoral Visit _x__ Initial Visit ___ Follow-up Visit ___ On-call Visit ___ General Patient Visit ___ Spiritual Assessment ___ Family Conference ___ Bereavement ___ Rapid Response ___ Code Blue ___ Other (describe below) Pastoral Care Referral From _x__ Patient ___ Family ___ Nurse ___ Physician ___ Trade Facilitator ___ Box Blank Machine Feeder _x__ Other (describe below) Sacrament/Intervention _x__ Active listening ___ Anointing ___ Baptist ___ Bereavement ___ Communion ___ Laurie exploration ___ ___ Life review _x__ Prayer ___ Reconciliation ___ Sacrament of Sick _x__ Supportive presence ___ Wedding _x__ Other (describe below) Pastoral Comments EVS staff member contacted this sales professional bilingual to inform that patient was asking for spiritual literature to read; met patient in room and she welcomed the visit and asked for things to read that would be inspiring and helpful; brought back several booklets for patient; listened to pt tell her experience and need; pt has a restorationist connection and welcomed a prayer for extra support
[2023-08-06] MEDS: Budesonide Respules 0.5 MG/2 ML AMPUL.NEB. INHALATION (19:17)
[2023-08-06] MEDS: Enoxaparin 120 MG/0.8 ML Syringe 110 MG SC (20:29)
[2023-08-06] MEDS: Gabapentin 400 MG Capsule PO (20:30)
[2023-08-06] MEDS: Atorvastatin Calcium 40 MG Tablet PO (20:30)
[2023-08-07] VITALS (9 sets, daily range): BP systolic 91–141; BP diastolic 52–85; PULSE 72–88; RESP 16–20; TEMP 36.2–36.9; O2SAT 92–97; BMI 29.9
[2023-08-07] MEDS: Ipratropium/Albuterol Sulfate 3 ML AMPUL.NEB INHALATION ×3 (06:52→19:51)
[2023-08-07] MEDS: Budesonide Respules 0.5 MG/2 ML AMPUL.NEB. INHALATION ×2 (06:52→19:51)
[2023-08-07] MEDS: Furosemide 20 MG Tablet PO (08:23)
[2023-08-07] MEDS: Lisinopril 20 MG Tablet PO (08:23)
[2023-08-07] MEDS: Pantoprazole Sodium 40 MG Tablet PO (08:23)
[2023-08-07] MEDS: Enoxaparin 120 MG/0.8 ML Syringe 110 MG SC ×2 (08:23→22:05)
[2023-08-07] MEDS: Aspirin 81 MG TAB.CHEW PO (08:23)
[2023-08-07] MEDS: Gabapentin 300 MG Capsule PO ×3 (08:33→17:00)
[2023-08-07] MEDS: Acetaminophen 325 MG Tablet 650 MG PO (08:33)
[2023-08-07] MEDS: oxyCODONE 5 MG Tablet PO (08:33)
--- NOTE | 2023-08-07 08:51 | PN.HOSP_ITS ---
Reason for Visit Reason for Visit: Diagnoses Chest pain, unspecified (08/05/23) Subjective Subjective Still having pain in her left shoulder after rotator cuff surgery. Despite being told not to, patient has gotten up to go to the restroom. Patient again was reminded not to get up because of the femoral line that she still has. Objective Data Objective Data Vital Signs: Vital Signs Temp Pulse Resp BP Pulse Ox O2 Del Method O2 Flow Rate 36.9 C 87 16 126/77 H 92 Nasal Cannula 2 08/07/23 08:15 08/07/23 08:15 08/07/23 08:15 08/07/23 08:15 08/07/23 08:15 08/07/23 08:15 08/07/23 08:15 Oxygen Flow Rate (L/min) 2 Oxygen Delivery Method Nasal Cannula Weight: 84 kg Body Mass Index (BMI) 29.9 Intake & Output: Intake and Output for Last 24 Hours 08/05/23 08/06/23 08/07/23 23:59 23:59 23:59 Intake Total 1695 / 1935 1840 / 2080 240 / 240 Output Total 550 / 750 2150 / 2450 400 / 400 Balance 1145 / 1185 -310 / -370 -160 / -160 Lab / Micro Data 08/06/23 11:17 08/06/23 11:17 Labs: Laboratory Results - last 24 hr 08/06/23 11:17: WBC 5.9, RBC 4.17 L, Hgb 12.0, Hct 39.0, MCV 93.5, MCH 28.8, MCHC 30.8 L, RDW Std Deviation 52.4 H, RDW Coeff of Oleg 15.3 H, Plt Count 235, MPV 9.8, Immature Gran % (Auto) 0.200, Neut % (Auto) 42.9 L, Lymph % (Auto) 39.6, [place] % (Auto) 10.2 H, Eos % (Auto) 6.4 H, Baso % (Auto) 0.7, Absolute Neuts (auto) 2.5, Absolute Lymphs (auto) 2.34, Nucleated RBC % 0, Sodium 138, Potassium 4.4, Chloride 105, Carbon Dioxide 32.0, Anion Gap 1 L, BUN 25 H, Creatinine 1.41 H, Estim Creat Clear Calc 36.24, Est GFR (MDRD) Af Amer 48 L, Est GFR (MDRD) Non-Af 40 L, BUN/Creatinine Ratio 17.7, Glucose 112 H, Calcium 8.4 L, Total Bilirubin 0.30, AST 14 L, ALT 20, Alkaline Phosphatase 77, Total Protein 6.2 L, Albumin 2.8 L, Globulin 3.4, Albumin/Globulin Ratio 0.8 L, Triglycerides 108, Cholesterol 131, LDL Cholesterol 63, VLDL Cholesterol 22, HDL Cholesterol 46 Physical Exam Const alert and no apparent distress Constitutional Narrative: Pleasant today. Making jokes. Resp normal respiratory effort, no retractions and no use of accessory muscles Cardio regular rate, regular rhythm, S1 normal heart sound and S2 normal heart sound GI normal to inspection, nondistended, normoactive bowel sounds Extremity Extremity Narrative: Right femoral triple-lumen catheter sites intact without any hematoma. Psych affect normal Assessment & Plan Assessment/Plan (1) Chest pain: QUALIFIERS: Chest pain type: unspecified Qualified Code(s): R07.9 - Chest pain, unspecified PLAN: Chest Pain with indeterminate cardiac enzyme with Hypoxia. Hypoxia since resolved. Troponins only mildly elevated peaked at 73 and trended down since. Echocardiogram shows an EF of 70%. Stress test performed on the was negative. VQ scan has been ordered but unable to be performed until the so as the rest of the contrast can be washed out. Unfortunately, given the fact that patient is a extremely difficult IV access and needle access would benefit to obtain was a right femoral triple-lumen catheter. Radiology department was unable to coordinate a CTA of the chest with a femoral line therefore that has not been performed and we are proceeding with a VQ scan. If the VQ scan is negative I would not advise any additional work-up and to remove the triple- lumen catheter. (2) Difficult intravenous access: PLAN: Patient has been unable to have a peripheral IV placed. Partly is due to the fact that her left arm is not amenable to that given her recent rotator cuff surgery and requiring a sling. A PICC line was attempted but was unsuccessful. A triple-lumen catheter was placed in the right femoral vein. Patient is currently on bedrest while the femoral line is in place. Patient has gone up despite that and has been instructed to be on bedrest until that can be removed. If the VQ scan to be performed on the ninth is negative then the triple-lumen catheter can be removed and she can be off of bedrest. The patient does require frequent hospitalizations in the future, it may be advisable for the patient to be considered for port placement given the profound difficulty of IV access. PLAN: Plan Chronic conditions: * Chronic COPD: Will continue oxygen supplementation with wean as tolerated to room air, new ATC DuoNeb therapy as well as temporally hold Breztri treatment and transition to ATC budesonide therapy, PRN albuterol, HOB, IS parameters. * Hypokalemia: Potassium 5.2, minimally elevated, continue to just hydration, repeat BMP in AM. * History of polysubstance abuse with chronic hepatitis C: Reportedly clean since 03/2020 with history of crack and cocaine usage, urine drug screen pending, unclear exact treatment history for hepatitis C. * History of alcohol abuse: Reportedly sober, encourage continued sobriety. * PAD: History of lower extremity angioplasty/PCI, will continue aspirin, statin, hypertensive regimen as noted. * Hypertension: Continue home regimen including lisinopril, Lasix, PRN hydralazine. * Hyperlipidemia: We will continue patient on statin therapy, FLP in AM. * Former tobacco use: Encourage continued tobacco cessation. * Morbid Obesity: Weight loss and lifestyle changes encouraged. * Chart reported thyroid disorder, unclear type: Clarify medications but currently does not appear to be on any thyroid medications, TSH and free T4 requested. * Anxiety and depression: Per current list not on any chronic regimen, encourage continued outpatient follow-up and evaluation. * History of VTE: Patient with chart reported history of previous DVT, not currently chronically anticoagulated. * Recent rotator cuff pair in the left. Nonweightbearing on the left upper extremity. Patient may follow-up with orthopedics as outpatient. Patient requesting more pain control and her oxycodone was increased from 5 to 10 mg every 4 hours as needed. DVT prophylaxis: Lovenox, therapeutic dosing given awaiting CTPA with concern for pulmonary emboli as potential chest pain etiology given high risk with recent operative intervention however if CTPA is negative for PE then will de- escalate to chemoprophylactic dosing only. CODE STATUS: Full code. Disposition: Plan is for the patient to return to [facility], however she will require precertification before that. Unfortunately with the patient being on bedrest and having recent rotator cuff on the left and a femoral triple-lumen catheter on the right and being on bedrest, she is not able to participate in therapy at this time. After the triple-lumen catheter has been removed then physical therapy can be consulted. Then will need to wait on insurance authorization afterwards. Greater than 35 minutes of which greater than 50% time was counseled the patient at bedside about the need to remain on bedrest with the triple-lumen catheter is in place Charges/Coding Visit Charges Inpatient E&M: 79717 Subs Hosp L2
--- NOTE | 2023-08-07 10:01 | NURSING ---
Per nuclear medicine VQ scan cannot be done until 08/08 due to stress test isotope. Will take 48 ours for isotope to leave system before able to complete VQ scan.
--- NOTE | 2023-08-07 11:16 | VDLE_ITS ---
Reason For Study: Chest pain RIGHT LEFT GSV is normal. GSV is normal. PICC Line noted in groin area. CFV is compressible, spontaneous, phasic, CFV visualized with color and doppler only, competent, and demonstrates normal appear patent, normal venous flow. augmentation. FV is compressible, spontaneous, phasic, FV is compressible, spontaneous, phasic, competent and demonstrates normal competent and demonstrates normal augmentation. augmentation. POP V is compressible, spontaneous, phasic, POP V is compressible, spontaneous, phasic, competent and demonstrates normal competent and demonstrates normal augmentation. augmentation. T/P Trunk is compressible. T/P Trunk is compressible. PTV is compressible. PTV is compressible. RT PerV is compressible. LT PerV is compressible. Procedure Acute deep vein thrombosis is noted in the This is a venous duplex using B-mode, color Soleus V. It is dilated and NONCOMPRESSIBLE. flow and spectral Doppler. Exam performed portable in patient room. A preliminary report was called and/or faxed to [facility]. VL/Venous Duplex US - Shar Extrem Interpretation Summary Acute deep vein thrombosis is noted in the left soleus vein. Deep veins of the right lower extremity are patent and compressible segmentally . There is no evidence of right lower extremity deep vein thrombosis. The bilateral great sap henous veins appear patent and compressible segmentally. Ordering Physician: Woodrow Cardenas Referring Physician: Aquiles Jones Performed By: Cherry Mercedes RVT
[2023-08-07] MEDS: oxyCODONE 5 MG Tablet 10 MG PO ×2 (15:04→22:04)
[2023-08-07] MEDS: tiZANidine HCl 2 MG Tablet PO (17:00)
[2023-08-07] MEDS: Acetaminophen 500 MG Tablet 1000 MG PO (17:00)
--- NOTE | 2023-08-07 20:32 | CPS ---
Asked pt to put call light on to take off aerosol, RT was called to [facility] care [facility].
[2023-08-07] MEDS: Gabapentin 400 MG Capsule PO (22:04)
[2023-08-07] MEDS: Atorvastatin Calcium 40 MG Tablet PO (22:04)
[2023-08-08] VITALS (7 sets, daily range): BP systolic 115–136; BP diastolic 71–85; PULSE 74–86; RESP 12–20; TEMP 36.1–36.8; O2SAT 2–95; BMI 30.1
[2023-08-08] MEDS: Acetaminophen 500 MG Tablet 1000 MG PO (02:09)
[2023-08-08] MEDS: Senna/Docusate Sodium 1 Tablet 2 TABLET PO (02:09)
[2023-08-08] MEDS: Mag Hydrox/Al Hydrox/Simeth 30 ML UDC PO (02:10)
[2023-08-08] MEDS: oxyCODONE 5 MG Tablet 10 MG PO ×4 (03:15→21:58)
[2023-08-08] MEDS: Budesonide Respules 0.5 MG/2 ML AMPUL.NEB. INHALATION ×2 (07:18→20:58)
[2023-08-08] MEDS: Ipratropium/Albuterol Sulfate 3 ML AMPUL.NEB INHALATION ×3 (07:18→20:58)
[2023-08-08] MEDS: Gabapentin 300 MG Capsule PO ×3 (08:56→16:11)
[2023-08-08] MEDS: Aspirin 81 MG TAB.CHEW PO (08:56)
[2023-08-08] MEDS: Furosemide 20 MG Tablet PO (08:57)
[2023-08-08] MEDS: Pantoprazole Sodium 40 MG Tablet PO (08:57)
[2023-08-08] MEDS: Lisinopril 20 MG Tablet PO (08:57)
[2023-08-08] MEDS: Enoxaparin 120 MG/0.8 ML Syringe 110 MG SC ×2 (08:57→20:34)
--- NOTE | 2023-08-08 10:00 | NM_ITS ---
CLINICAL: 68-year-old female with history of chest discomfort and elevation of the d-dimer. VENTILATION-PERFUSION LUNG SCINTIGRAPHY COMPARISON: Plain film chest radiograph report 08/05/2023 FINDINGS: The patient was administered 29.5 mCi 99m Tc DTPA aerosol. The aerosol ventilation study demonstrates heterogeneous ventilation in the bilateral lung stevens without corresponding radiographic changes visualized on review of plain film chest x-ray dated 08/05/2023. Central clumping of the aerosol is identified in the bilateral hemithorax. Following the intravenous administration of 5.9 mCi of 99m Tc MAA, the pulmonary perfusion study reveals matching non-uniform perfusion in the right and left lungs of less significant severity than the previously defined ventilation pattern. No moderate subsegmental or large segmental ventilation-perfusion mismatches are noted. There are regions of retained normal perfusion visualized. NM/Lung Scan Vent/Perf IMPRESSION: 1. VERY LOW PROBABILITY FOR PULMONARY EMBOLUS (<10%) 99m Tc DTPA aerosol ventilation / 99m Tc MAA pulmonary perfusion imaging examination, according to PIOPED II interpretive criteria with regard given to the presence of > 2 ventilation-perfusion matches without corresponding radiographic changes. (Sotsman et al, Radiology 246: 941, 2008 Sotsman et al, J Nucl Med 49: 1741, 2008). 2. Central clumping of the aerosol may be secondary to obstructive airway mechanics and or clinical tachypnea. Electronically Signed: Duke Brunner DO at 11:19 EST ,
[2023-08-08] MEDS: tiZANidine HCl 2 MG Tablet PO (12:18)
--- NOTE | 2023-08-08 15:44 | CASEMGMT ---
Discharge Planning Updates sent to [facility]. Asked for precert to be submitted. Emmie Perkins, Discharge Planning Asst.
--- NOTE | 2023-08-08 17:31 | PN.HOSP_ITS ---
Reason for Visit Reason for Visit: Diagnoses Chest pain, unspecified (08/05/23) Other specified health status (08/05/23) Objective Data Objective Data Vital Signs: Vital Signs Temp Pulse Resp BP Pulse Ox O2 Del Method O2 Flow Rate 98.2 F 76 16 136/85 H 95 Room Air 2 08/08/23 15:31 08/08/23 15:31 08/08/23 15:31 08/08/23 15:31 08/08/23 15:31 08/08/23 15:31 08/08/23 15:08 Oxygen Flow Rate (L/min) 2 Oxygen Delivery Method Room Air Weight: 186 lb 8.177 oz Body Mass Index (BMI) 30.1 Intake & Output: Intake and Output for Last 24 Hours 08/06/23 08/07/23 08/08/23 23:59 23:59 23:59 Intake Total 1840 / 2080 1360 / 1760 900 / 900 Output Total 2150 / 2450 1500 / 1900 1100 / 1100 Balance -310 / -370 -140 / -140 -200 / -200 Lab / Micro Data 08/06/23 11:17 08/06/23 11:17 Radiography Diagnostic Testing: Radiology Impression Venous Doppler Study 08/07/23 11:16 Interpretation Summary Acute deep vein thrombosis is noted in the left soleus vein. Deep veins of the right lower extremity are patent and compressible segmentally. There is no evidence of right lower extremity deep vein thrombosis. The bilateral great saphenous veins appear patent and compressible segmentally. Ordering Physician: Woodrow Cardenas Referring Physician: Aquiles Jones Performed By: Cherry Mercedes RVT Lung Scan-VQ NM 08/08/23 10:00 IMPRESSION: 1. VERY LOW PROBABILITY FOR PULMONARY EMBOLUS (<10%) 99m Tc DTPA aerosol ventilation / 99m Tc MAA pulmonary perfusion imaging examination, according to PIOPED II interpretive criteria with regard given to the presence of > 2 ventilation-perfusion matches without corresponding radiographic changes. (Soladi et al, Radiology 246: 941, 2008 Soladi et al, J Nucl Med 49: 1741, 2008). 2. Central clumping of the aerosol may be secondary to obstructive airway mechanics and or clinical tachypnea. Electronically Signed: Duke Brunner, DO at 11:19 EST , Physical Exam Narrative Seen and examined. Patient has left shoulder surgery. Intermittently she gets spasm in the left neck. She has triple-lumen catheter in the groin which I ordered to remove as venous duplex of lower extremities negative. Physical exam General: Alert, Oriented x3, Cooperative, overweight BMI 30.1 kg/m? HEENT: Atraumatic, PERRLA, EOMI, Normocephalic Oral: No Gingival or Mucosal Lesions/ Ulcerations Neck: Supple, No JVD, Negative Carotid Bruits Lungs: Air entry diminished in bilateral lung bases. No crepitation/rhonchi Cardiovascular: Regular rate, Regular Rhythm, Normal S1, Normal S2, No murmurs Abdomen: Bowel Sounds Present, Soft, Non Tender, Non-Distended : No renal angle tenderness. No suprapubic tenderness. Extremities: No edema, Capillary Refill Less than 3 Seconds Skin: Triple-lumen catheter in groin. No rashes, No breakdown Musculoskeletal: No Tenderness to Palpation of Joints or Extremities. ROM restricted at knees and hip joints. Neurological: Cranial nerves II-XII grossly intact, DTR 2+/4. No acute focal neurological deficit. Psych/Mental Status: Flat affect. Assessment & Plan Assessment/Plan (1) Chest pain: QUALIFIERS: Chest pain type: unspecified Qualified Code(s): R07.9 - Chest pain, unspecified PLAN: Chest Pain with indeterminate cardiac enzyme with Hypoxia. Hypoxia since resolved. Troponins only mildly elevated peaked at 73 and trended down since. Echocardiogram shows an EF of 70%. Stress test performed on the seventh was negative. VQ scan has been ordered but unable to be performed until the so as the rest of the contrast can be washed out. Unfortunately, given the fact that patient is a extremely difficult IV access and needle access would benefit to obtain was a right femoral triple-lumen catheter. ' Radiologist but could not do CTA because of femoral line therefore VQ scan ordered. VQ scan reported very low priority for for PE. Triple-lumen catheter discontinued. PT and OT ordered. (2) Difficult intravenous access: PLAN: Patient has been unable to have a peripheral IV placed. Partly is due to the fact that her left arm is not amenable to that given her recent rotator cuff surgery and requiring a sling. A PICC line was attempted but was unsuccessful. For future hospitalizations recommended to have a Mediport as patient is difficult IV access PLAN: Plan Chronic conditions: * Chronic COPD: Will continue oxygen supplementation with wean as tolerated to room air, new ATC DuoNeb therapy as well as temporally hold Breztri treatment and transition to ATC budesonide therapy, PRN albuterol, HOB, IS parameters. * Hypokalemia: Potassium 5.2, minimally elevated, continue to just hydration, repeat BMP in AM. * History of polysubstance abuse with chronic hepatitis C: Reportedly clean since 03/2020 with history of crack and cocaine usage, urine drug screen pending, unclear exact treatment history for hepatitis C. * History of alcohol abuse: Reportedly sober, encourage continued sobriety. * PAD: History of lower extremity angioplasty/PCI, will continue aspirin, statin, hypertensive regimen as noted. * Hypertension: Continue home regimen including lisinopril, Lasix, PRN hydralazine. * Hyperlipidemia: We will continue patient on statin therapy, FLP in AM. * Former tobacco use: Encourage continued tobacco cessation. * Morbid Obesity: Weight loss and lifestyle changes encouraged. * Chart reported thyroid disorder, unclear type: Clarify medications but currently does not appear to be on any thyroid medications, TSH and free T4 requested. * Anxiety and depression: Per current list not on any chronic regimen, encourage continued outpatient follow-up and evaluation. * History of VTE: Patient with chart reported history of previous DVT, not currently chronically anticoagulated. * Recent rotator cuff pair in the left. Nonweightbearing on the left upper extremity. Patient may follow-up with orthopedics as outpatient. Patient requesting more pain control and her oxycodone was increased from 5 to 10 mg every 4 hours as needed. DVT prophylaxis: Lovenox, therapeutic dosing given awaiting CTPA with concern for pulmonary emboli as potential chest pain etiology given high risk with recent operative intervention however if CTPA is negative for PE then will de- escalate to chemoprophylactic dosing only. CODE STATUS: Full code. Disposition: Plan is for the patient to return to [facility], however she will require precertification before that. Unfortunately with the patient being on bedrest and having recent rotator cuff on the left and a femoral triple-lumen catheter on the right and being on bedrest, she is not able to participate in therapy at this time. After the triple-lumen catheter has been removed then physical therapy can be consulted. Then will need to wait on insurance authorization afterwards. Charges/Coding Visit Charges Inpatient E&M: 78683 Subs Hosp L2
[2023-08-08] MEDS: Gabapentin 400 MG Capsule PO (20:34)
[2023-08-08] MEDS: Atorvastatin Calcium 40 MG Tablet PO (20:34)
[2023-08-09] VITALS (8 sets, daily range): BP systolic 103–122; BP diastolic 51–78; PULSE 76–88; RESP 18–20; TEMP 36.3–36.6; O2SAT 92–100; BMI 30.4
[2023-08-09] MEDS: Lactulose 20 GM/30 ML UDC 30 GM PO (02:44)
[2023-08-09] MEDS: oxyCODONE 5 MG Tablet 10 MG PO ×3 (02:45→22:34)
[2023-08-09] MEDS: Polyethylene Glycol 3350 17 GM PACKET PO ×2 (02:48→12:52)
[2023-08-09] MEDS: Ipratropium/Albuterol Sulfate 3 ML AMPUL.NEB INHALATION ×2 (07:39→23:21)
[2023-08-09] MEDS: Budesonide Respules 0.5 MG/2 ML AMPUL.NEB. INHALATION ×2 (07:39→23:21)
[2023-08-09] MEDS: Gabapentin 300 MG Capsule PO ×3 (09:46→17:48)
[2023-08-09] MEDS: Enoxaparin 120 MG/0.8 ML Syringe 110 MG SC ×2 (09:46→22:23)
[2023-08-09] MEDS: Pantoprazole Sodium 40 MG Tablet PO (09:46)
[2023-08-09] MEDS: Furosemide 20 MG Tablet PO (09:46)
[2023-08-09] MEDS: Lisinopril 20 MG Tablet PO (09:46)
[2023-08-09] MEDS: Aspirin 81 MG TAB.CHEW PO (09:46)
[2023-08-09] MEDS: Acetaminophen 500 MG Tablet 1000 MG PO ×2 (12:57→22:23)
[2023-08-09] MEDS: Ondansetron ODT 4 MG Tablet PO (14:23)
[2023-08-09] MEDS: tiZANidine HCl 2 MG Tablet 4 MG PO ×2 (14:23→22:16)
--- NOTE | 2023-08-09 14:25 | CASEMGMT ---
Social Work Per Marni at [facility], the insurance is asking for provider notes within the last 72 hours indicating patient requires a skilled need. Noted documentation had previously indicated PT/OT not on board and patient on bedrest; patient did have a femoral line. Messaged Dr. Duong via back line, and also spoke with provider in person of need for updated note to reflect need for skilled services, if providers agrees. Plan: Send updated notes to [facility] when available; insurance determination pending. -APARNA Enciso
--- NOTE | 2023-08-09 17:19 | PN.HOSP_ITS ---
Reason for Visit Reason for Visit: Diagnoses Chest pain, unspecified (08/05/23) Other specified health status (08/05/23) Objective Data Objective Data Vital Signs: Vital Signs Temp Pulse Resp BP Pulse Ox O2 Del Method O2 Flow Rate 97.9 F 88 18 107/51 L 98 Nasal Cannula 2 08/09/23 15:45 08/09/23 15:45 08/09/23 15:45 08/09/23 15:45 08/09/23 15:45 08/09/23 15:45 08/09/23 15:45 Oxygen Flow Rate (L/min) 2 Oxygen Delivery Method Nasal Cannula Weight: 188 lb 14.978 oz Body Mass Index (BMI) 30.4 Intake & Output: Intake and Output for Last 24 Hours 08/07/23 08/08/23 08/09/23 23:59 23:59 23:59 Intake Total 1360 / 1760 1380 / 1380 480 / 480 Output Total 1500 / 1900 2350 / 2350 700 / 700 Balance -140 / -140 -970 / -970 -220 / -220 Lab / Micro Data 08/06/23 11:17 08/06/23 11:17 Physical Exam Narrative Seen and examined. Patient has left shoulder surgery. She is nonadherent to left shoulder sling and nurses tried to put several time when she removes it. Intermittently she gets spasm in the left neck, ongoing problem. She has triple-lumen catheter in the groin which was removed yesterday. Zofran dose increased to 4 mg 3 times daily. Tylenol increased to 1 g every 8 hourly. Physical exam General: Alert, Oriented x3, Cooperative, overweight BMI 30.1 kg/m? HEENT: Atraumatic, PERRLA, EOMI, Normocephalic Oral: No Gingival or Mucosal Lesions/ Ulcerations Neck: Supple, No JVD, Negative Carotid Bruits Lungs: Air entry diminished in bilateral lung bases. No crepitation/rhonchi Cardiovascular: Regular rate, Regular Rhythm, Normal S1, Normal S2, No murmurs Abdomen: Bowel Sounds Present, Soft, Non Tender, Non-Distended : No renal angle tenderness. No suprapubic tenderness. Extremities: No edema, Capillary Refill Less than 3 Seconds Skin: Triple-lumen catheter in groin. No rashes, No breakdown Musculoskeletal: No Tenderness to Palpation of Joints or Extremities. ROM restricted at knees and hip joints. Restricted left shoulder movement due to shoulder surgery. Neurological: Cranial nerves II-XII grossly intact, DTR 2+/4. No acute focal neurological deficit. Psych/Mental Status: Flat affect. Assessment & Plan Assessment/Plan (1) Chest pain: QUALIFIERS: Chest pain type: unspecified Qualified Code(s): R07.9 - Chest pain, unspecified PLAN: Chest Pain with indeterminate cardiac enzyme with Hypoxia. Hypoxia since resolved. Troponins only mildly elevated peaked at 73 and trended down since. Echocardiogram shows an EF of 70%. Stress test performed on the was negative. VQ scan has been ordered but unable to be performed until the so as the rest of the contrast can be washed out. Unfortunately, given the fact that patient is a extremely difficult IV access and needle access would benefit to obtain was a right femoral triple-lumen catheter. ' Radiologist but could not do CTA because of femoral line therefore VQ scan ordered. VQ scan reported very low priority for for PE. Triple-lumen catheter discontinued. PT and OT ordered. 06/09 chest pain seems most likely musculoskeletal. She is physically deconditio mell advised aggressive PT and OT which she does not follow. (2) Difficult intravenous access: PLAN: Patient has been unable to have a peripheral IV placed. Partly is due to the fact that her left arm is not amenable to that given her recent rotator cuff surgery and requiring a sling. A PICC line was attempted but was unsuccessful. For future hospitalizations recommended to have a Mediport as patient is difficult IV access She complains of severe pain and spasm of neck for which Zanaflex increased to 4 mg every 8 on Tylenol scheduled 1 g every 8 hourly along with oxycodone. PLAN: Plan Chronic conditions: * Chronic COPD: Will continue oxygen supplementation with wean as tolerated to room air, new ATC DuoNeb therapy as well as temporally hold Breztri treatment and transition to ATC budesonide therapy, PRN albuterol, HOB, IS parameters. * Hypokalemia: Potassium 5.2, minimally elevated, continue to just hydration, repeat BMP in AM. * History of polysubstance abuse with chronic hepatitis C: Reportedly clean since 03/2020 with history of crack and cocaine usage, urine drug screen pending, unclear exact treatment history for hepatitis C. * History of alcohol abuse: Reportedly sober, encourage continued sobriety. * PAD: History of lower extremity angioplasty/PCI, will continue aspirin, statin, hypertensive regimen as noted. * Hypertension: Continue home regimen including lisinopril, Lasix, PRN hydralazine. * Hyperlipidemia: We will continue patient on statin therapy, FLP in AM. * Former tobacco use: Encourage continued tobacco cessation. * Morbid Obesity: Weight loss and lifestyle changes encouraged. * Chart reported thyroid disorder, unclear type: Clarify medications but currently does not appear to be on any thyroid medications, TSH and free T4 requested. * Anxiety and depression: Per current list not on any chronic regimen, encourage continued outpatient follow-up and evaluation. * History of VTE: Patient with chart reported history of previous DVT, not currently chronically anticoagulated. * Recent rotator cuff pair in the left. Nonweightbearing on the left upper extremity. Patient may follow-up with orthopedics as outpatient. Patient requesting more pain control and her oxycodone was increased from 5 to 10 mg every 4 hours as needed. DVT prophylaxis: Lovenox, therapeutic dosing given awaiting CTPA with concern for pulmonary emboli as potential chest pain etiology given high risk with recent operative intervention however if CTPA is negative for PE then will de- escalate to chemoprophylactic dosing only. CODE STATUS: Full code. Disposition: Plan is for the patient to return to [facility], however she will require precertification before that. Unfortunately with the patient being on bedrest and having recent rotator cuff on the left and a femoral triple-lumen catheter on the right and being on bedrest, she is not able to participate in therapy at this time. After the triple-lumen catheter has been removed then physical therapy can be consulted. Then will need to wait on insurance authorization afterwards. Charges/Coding Visit Charges Inpatient E&M: 82865 Subs Hosp L2
[2023-08-09] MEDS: Senna/Docusate Sodium 1 Tablet 2 TABLET PO (22:16)
[2023-08-09] MEDS: Atorvastatin Calcium 40 MG Tablet PO (22:16)
[2023-08-09] MEDS: Gabapentin 400 MG Capsule PO (22:23)
[2023-08-10] VITALS (9 sets, daily range): BP systolic 95–116; BP diastolic 47–78; PULSE 69–80; RESP 16–18; TEMP 36.1–36.6; O2SAT 87–99; BMI 30.2
[2023-08-10] MEDS: Acetaminophen 500 MG Tablet 1000 MG PO ×3 (05:24→22:38)
[2023-08-10] MEDS: tiZANidine HCl 2 MG Tablet 4 MG PO ×3 (05:24→22:28)
[2023-08-10] MEDS: Budesonide Respules 0.5 MG/2 ML AMPUL.NEB. INHALATION ×2 (07:32→19:08)
[2023-08-10] MEDS: Ipratropium/Albuterol Sulfate 3 ML AMPUL.NEB INHALATION ×3 (07:32→19:08)
[2023-08-10] MEDS: Polyethylene Glycol 3350 17 GM PACKET PO (08:38)
[2023-08-10] MEDS: Gabapentin 300 MG Capsule PO ×3 (08:38→16:13)
[2023-08-10] MEDS: Senna/Docusate Sodium 1 Tablet 2 TABLET PO ×2 (08:48→20:24)
[2023-08-10] MEDS: Lisinopril 20 MG Tablet PO (08:48)
[2023-08-10] MEDS: Furosemide 20 MG Tablet PO (08:48)
[2023-08-10] MEDS: Pantoprazole Sodium 40 MG Tablet PO (08:48)
[2023-08-10] MEDS: Aspirin 81 MG TAB.CHEW PO (08:48)
[2023-08-10] MEDS: oxyCODONE 5 MG Tablet 10 MG PO ×3 (10:08→20:23)
[2023-08-10] MEDS: Sodium Chloride 0.65% 1 SPRAY SPRAY.BTL 2 SPRAY NASAL (13:00)
--- NOTE | 2023-08-10 14:22 | PN.HOSP_ITS ---
Reason for Visit Reason for Visit: Diagnoses Chest pain, unspecified (08/05/23) Other specified health status (08/05/23) Objective Data Objective Data Vital Signs: Vital Signs Temp Pulse Resp BP Pulse Ox O2 Del Method O2 Flow Rate 97.0 F L 79 16 116/78 90 Nasal Cannula 2 08/10/23 08:35 08/10/23 13:30 08/10/23 13:30 08/10/23 10:06 08/10/23 13:30 08/10/23 13:31 08/10/23 13:31 Oxygen Flow Rate (L/min) 2 Oxygen Delivery Method Nasal Cannula Weight: 187 lb 2.759 oz Body Mass Index (BMI) 30.2 Intake & Output: Intake and Output for Last 24 Hours 08/08/23 08/09/23 08/10/23 23:59 23:59 23:59 Intake Total 1380 / 1380 1100 / 1100 500 / 500 Output Total 2350 / 2350 700 / 700 350 / 350 Balance -970 / -970 400 / 400 150 / 150 Lab / Micro Data 08/06/23 11:17 08/06/23 11:17 Physical Exam Narrative Seen and examined. She has left shoulder sling and swath. Patient gets intermittently aggressive and inappropriate states she is bleeding a lot around the right groin around midline/femoral line. Redressing was done with pressure bandage applied. Encouraged to put shoulder sling to help her with the neck spasm pain. Physical exam General: Alert, Oriented x3, Cooperative, overweight BMI 30.1 kg/m? HEENT: Atraumatic, PERRLA, EOMI, Normocephalic Oral: No Gingival or Mucosal Lesions/ Ulcerations Neck: Supple, No JVD, Negative Carotid Bruits Lungs: Air entry diminished in bilateral lung bases. No crepitation/rhonchi Cardiovascular: Regular rate, Regular Rhythm, Normal S1, Normal S2, No murmurs Abdomen: Bowel Sounds Present, Soft, Non Tender, Non-Distended : No renal angle tenderness. No suprapubic tenderness. Extremities: Present dressing on right femoral triangle. No edema, Capillary Refill Less than 3 Seconds Skin: Triple-lumen catheter in groin. No rashes, No breakdown Musculoskeletal: No Tenderness to Palpation of Joints or Extremities. ROM restricted at knees and hip joints. Restricted left shoulder movement due to shoulder surgery. Neurological: Cranial nerves II-XII grossly intact, DTR 2+/4. No acute focal neurological deficit. Psych/Mental Status: Flat affect. Assessment & Plan Assessment/Plan (1) Chest pain: QUALIFIERS: Chest pain type: unspecified Qualified Code(s): R07.9 - Chest pain, unspecified PLAN: Chest Pain with indeterminate cardiac enzyme with Hypoxia. Hypoxia since resolved. Troponins only mildly elevated peaked at 73 and trended down since. Echocardiogram shows an EF of 70%. Stress test performed on the was negative. VQ scan has been ordered but unable to be performed until the so as the rest of the contrast can be washed out. Unfortunately, given the fact that patient is a extremely difficult IV access and needle access would benefit to obtain was a right femoral triple-lumen catheter. ' Radiologist but could not do CTA because of femoral line therefore VQ scan ordered. VQ scan reported very low priority for for PE. Triple-lumen catheter discontinued. PT and OT ordered. 08/09 chest pain seems most likely musculoskeletal. She is physically deconditioned advised aggressive PT and OT which she does not follow. 08/10: Patient encouraged for PT and OT after 3 to 4 hours bedrest after she had right groin bleeding. There is no active bleeding. Continue present bandage. (2) Difficult intravenous access: PLAN: Patient has been unable to have a peripheral IV placed. Partly is due to the fact that her left arm is not amenable to that given her recent rotator cuff surgery and requiring a sling. A PICC line was attempted but was unsuccessful. For future hospitalizations recommended to have a Mediport as patient is difficult IV access She complains of severe pain and spasm of neck for which Zanaflex increased to 4 mg every 8 on Tylenol scheduled 1 g every 8 hourly along with oxycodone. PLAN: Plan Chronic conditions: * Chronic COPD: Will continue oxygen supplementation with wean as tolerated to room air, new ATC DuoNeb therapy as well as temporally hold Breztri treatment and transition to ATC budesonide therapy, PRN albuterol, HOB, IS parameters. * Hypokalemia: Potassium 5.2, minimally elevated, continue to just hydration, repeat BMP in AM. * History of polysubstance abuse with chronic hepatitis C: Reportedly clean since 03/2020 with history of crack and cocaine usage, urine drug screen pending, unclear exact treatment history for hepatitis C. * History of alcohol abuse: Reportedly sober, encourage continued sobriety. * PAD: History of lower extremity angioplasty/PCI, will continue aspirin, statin, hypertensive regimen as noted. * Hypertension: Continue home regimen including lisinopril, Lasix, PRN hydralazine. * Hyperlipidemia: We will continue patient on statin therapy, FLP in AM. * Former tobacco use: Encourage continued tobacco cessation. * Morbid Obesity: Weight loss and lifestyle changes encouraged. * Chart reported thyroid disorder, unclear type: Clarify medications but currently does not appear to be on any thyroid medications, TSH and free T4 requested. * Anxiety and depression: Per current list not on any chronic regimen, encourage continued outpatient follow-up and evaluation. * History of VTE: Patient with chart reported history of previous DVT, not currently chronically anticoagulated. * Recent rotator cuff pair in the left. Nonweightbearing on the left upper extremity. Patient may follow-up with orthopedics as outpatient. Patient requesting more pain control and her oxycodone was increased from 5 to 10 mg every 4 hours as needed. DVT prophylaxis: Lovenox, therapeutic dosing given awaiting CTPA with concern for pulmonary emboli as potential chest pain etiology given high risk with recent operative intervention however if CTPA is negative for PE then will de- escalate to chemoprophylactic dosing only. CODE STATUS: Full code. Disposition: Plan is for the patient to return to [facility], however she will require precertification before that. Unfortunately with the patient being on bedrest and having recent rotator cuff on the left and a femoral triple-lumen catheter on the right and being on bedrest, she is not able to participate in therapy at this time. After the triple-lumen catheter has been removed then physical therapy can be consulted. Then will need to wait on insurance authorization afterwards. Charges/Coding Visit Charges Inpatient E&M: 79966 Subs Hosp L2
[2023-08-10] MEDS: Atorvastatin Calcium 40 MG Tablet PO (20:24)
[2023-08-10] MEDS: Gabapentin 400 MG Capsule PO ×2 (22:28)
--- NOTE | 2023-08-10 22:35 | NURSING ---
REmoved dressing from rt groin to assess bleeding from earlier today. Pt was very agitated with tape removal yelling you're trying to kill me during the encounter. explained to pt several times that this nurse was just trying to assess if the bleeding had stopped from earlier because she is supposed to get a blood thinner tonight. Pt refused the blood thinner. Femoral site was noted to have slight oozing to site. folded 4x4 gauze, sensitive skin tape, and abd dressing placed to site. Pt was also c/o burning to skin from tape irritation. applied powder to area per request.
[2023-08-11] VITALS (8 sets, daily range): BP systolic 99–122; BP diastolic 49–70; PULSE 62–85; RESP 12–20; TEMP 36.1–36.7; O2SAT 94–98
[2023-08-11] MEDS: Acetaminophen 500 MG Tablet 1000 MG PO ×3 (05:27→21:59)
[2023-08-11] MEDS: tiZANidine HCl 2 MG Tablet 4 MG PO (05:27)
[2023-08-11] MEDS: oxyCODONE 5 MG Tablet 10 MG PO ×3 (05:28→18:19)
[2023-08-11 06:27] LABS: Absolute Neutrophil Count 2.3 X10^3/uL (2.0-7.7); Basophil# 0.04 X10^3/uL; Basophil% 0.7 % (0-1); Eosinophil# 0.38 X10^3/uL; Eosinophils% 6.7 % (0-5); Hematocrit 41.3 % (37-47); Hemoglobin 12.9 g/dL (12.0-15.0); Lymphocyte % 44.2 % (19-41); Mean Corp Hgb Conc 31.2 g/dL (32-36); Mean Corpuscular Hgb 28.7 pg (27.0-32.0); Mean Corpuscular Volume 91.8 fL (81-99); Mean Platelet Vol. 10.2 fl (6.2-12.0); Monocyte# 0.46 X10^3/uL; Monocyte% 8.1 % (0-10); NRBC Flagged by Analyzer 0 % (0-5); Neutrophil # 2.26 X10^3/uL (2.7-7.7); Neutrophil % 40.1 % (47-70); Platelet Count 268 K/mm3 (150-450); RBC Distribution Width SD 50.7 fl (35.1-43.9); White Blood Count 5.7 K/mm3 (4.4-11.0)
[2023-08-11 07:16] LABS: Anion Gap 2 (5-15); BUN 43 mg/dL (7-18); BUN/Creat Ratio 30.1 RATIO (10-20); Calcium,Total 8.9 mg/dL (8.5-10.1); Chloride 103 mmol/L (98-107); Creatinine, Serum 1.43 mg/dL (0.55-1.02); EST Glomerular Filtration Rate 39 mL/min (>60); Est Glom Filt Rate - Afr Amer 47 mL/min (>60); Estimated Creatinine Clearance 35.74 ml/min; Glucose 95 mg/dL (74-106); Potassium 6.2 mmol/L (3.5-5.1); Sodium Level 134 mmol/L (136-145)
[2023-08-11] MEDS: Ipratropium/Albuterol Sulfate 3 ML AMPUL.NEB INHALATION ×3 (07:30→19:32)
[2023-08-11] MEDS: Budesonide Respules 0.5 MG/2 ML AMPUL.NEB. INHALATION ×2 (07:30→19:32)
[2023-08-11] MEDS: Enoxaparin 120 MG/0.8 ML Syringe 110 MG SC ×2 (09:48→22:07)
[2023-08-11] MEDS: Pantoprazole Sodium 40 MG Tablet PO (09:49)
[2023-08-11] MEDS: Aspirin 81 MG TAB.CHEW PO (09:49)
[2023-08-11] MEDS: Furosemide 20 MG Tablet PO (09:49)
[2023-08-11] MEDS: Lisinopril 20 MG Tablet PO (09:49)
[2023-08-11] MEDS: Senna/Docusate Sodium 1 Tablet 2 TABLET PO ×2 (09:49→21:58)
[2023-08-11] MEDS: Polyethylene Glycol 3350 17 GM PACKET PO (09:49)
[2023-08-11] MEDS: Gabapentin 300 MG Capsule PO ×3 (10:11→17:08)
[2023-08-11] MEDS: Sodium Polystyrene Sulfonate 15 GM/60 ML UDC 30 GM PO (11:17)
[2023-08-11 13:16] LABS: Potassium 5.8 mmol/L (3.5-5.1)
--- NOTE | 2023-08-11 15:08 | PN.HOSP_ITS ---
Reason for Visit Reason for Visit: Diagnoses Chest pain, unspecified (08/05/23) Other specified health status (08/05/23) Objective Data Objective Data Vital Signs: Vital Signs Temp Pulse Resp BP Pulse Ox O2 Del Method O2 Flow Rate 97.1 F L 85 16 122/49 H 96 Nasal Cannula 2 08/11/23 09:05 08/11/23 13:59 08/11/23 13:59 08/11/23 09:05 08/11/23 13:59 08/11/23 14:17 08/11/23 14:17 Oxygen Flow Rate (L/min) 2 Oxygen Delivery Method Nasal Cannula Weight: 187 lb 2.759 oz Body Mass Index (BMI) 30.2 Intake & Output: Intake and Output for Last 24 Hours 08/09/23 08/10/23 08/11/23 23:59 23:59 23:59 Intake Total 1100 / 1100 1300 / 1300 690 / 690 Output Total 700 / 700 950 / 950 900 / 900 Balance 400 / 400 350 / 350 -210 / -210 Lab / Micro Data 08/11/23 05:51 08/11/23 12:40 Labs: Laboratory Results - last 24 hr 08/11/23 05:51: WBC 5.7, RBC 4.50, Hgb 12.9, Hct 41.3, MCV 91.8, MCH 28.7, MCHC 31.2 L, RDW Std Deviation 50.7 H, RDW Coeff of Oleg 15.0 H, Plt Count 268, MPV 10.2, Immature Gran % (Auto) 0.200, Neut % (Auto) 40.1 L, Lymph % (Auto) 44.2 H, [place] % (Auto) 8.1, Eos % (Auto) 6.7 H, Baso % (Auto) 0.7, Absolute Neuts (auto) 2.3, Absolute Lymphs (auto) 2.50, Nucleated RBC % 0, Sodium 134 L, Potassium 6.2 H*, Chloride 103, Carbon Dioxide 29.0, Anion Gap 2 L, BUN 43 H, Creatinine 1.43 H, Estim Creat Clear Calc 35.74, Est GFR (MDRD) Af Amer 47 L, Est GFR (MDRD) Non-Af 39 L, BUN/Creatinine Ratio 30.1 H, Glucose 95, Calcium 8.9 08/11/23 12:40: Potassium 5.8 H Physical Exam Narrative Seen and examined. She has left shoulder sling and swath. Patient gets intermittently aggressive and inappropriate with change in her voice. No active bleeding or hematoma around the right groin around midline/femoral line which was removed on 08/08/2023. Encouraged to put shoulder sling to help her with the neck spasm pain. Physical exam General: Alert, Oriented x3, Cooperative, overweight BMI 30.1 kg/m? HEENT: Atraumatic, PERRLA, EOMI, Normocephalic Oral: No Gingival or Mucosal Lesions/ Ulcerations Neck: Supple, No JVD, Negative Carotid Bruits Lungs: Air entry diminished in bilateral lung bases. No crepitation/rhonchi Cardiovascular: Regular rate, Regular Rhythm, Normal S1, Normal S2, No murmurs Abdomen: Bowel Sounds Present, Soft, Non Tender, Non-Distended : No renal angle tenderness. No suprapubic tenderness. Extremities: Present dressing on right femoral triangle. No edema, Capillary Refill Less than 3 Seconds Skin: No active bleeding or hematoma at right femoral triangle. Mild tenderness. No rashes, No breakdown Musculoskeletal: No Tenderness to Palpation of Joints or Extremities. ROM restricted at knees and hip joints. Restricted left shoulder movement due to shoulder surgery. Steri-Strip dressing at left shoulder. Neurological: Cranial nerves II-XII grossly intact, DTR 2+/4. No acute focal neurological deficit. Psych/Mental Status: Flat affect. Assessment & Plan Assessment/Plan (1) Chest pain: QUALIFIERS: Chest pain type: unspecified Qualified Code(s): R07.9 - Chest pain, unspecified PLAN: Chest Pain with indeterminate cardiac enzyme with Hypoxia. Hypoxia since resolved. Troponins only mildly elevated peaked at 73 and trended down since. Echocardiogram shows an EF of 70%. Stress test performed on the was negative. VQ scan has been ordered but unable to be performed until the so as the rest of the contrast can be washed out. Unfortunately, given the fact that patient is a extremely difficult IV access and needle access would benefit to obtain was a right femoral triple-lumen catheter. ' Radiologist but could not do CTA because of femoral line therefore VQ scan ordered. VQ scan reported very low priority for for PE. Triple-lumen catheter discontinued. PT and OT ordered. 08/09 chest pain seems most likely musculoskeletal. She is physically deco nditioned advised aggressive PT and OT which she does not follow. 08/10: Patient encouraged for PT and OT after 3 to 4 hours bedrest after she had right groin bleeding. There is no active bleeding. Continue present bandage. 08/11: PT OT. Pre-CERT pending. Right groin no hematoma. Encourage to walk under supervision of PT. Ready for discharge. (2) Difficult intravenous access: PLAN: Patient has been unable to have a peripheral IV placed. Partly is due to the fact that her left arm is not amenable to that given her recent rotator cuff surgery and requiring a sling. A PICC line was attempted but was unsuccessful. For future hospitalizations recommended to have a Mediport as patient is difficult IV access She complains of severe pain and spasm of neck for which Zanaflex increased to 4 mg every 8 on Tylenol scheduled 1 g every 8 hourly along with oxycodone. PLAN: Plan Chronic conditions: * Chronic COPD: Will continue oxygen supplementation with wean as tolerated to room air, new ATC DuoNeb therapy as well as temporally hold Breztri treatment and transition to ATC budesonide therapy, PRN albuterol, HOB, IS parameters. * Hypokalemia: Potassium 5.2, minimally elevated, continue to just hydration, repeat BMP in AM. * History of polysubstance abuse with chronic hepatitis C: Reportedly clean since 03/2020 with history of crack and cocaine usage, urine drug screen pending, unclear exact treatment history for hepatitis C. * History of alcohol abuse: Reportedly sober, encourage continued sobriety. * PAD: History of lower extremity angioplasty/PCI, will continue aspirin, statin, hypertensive regimen as noted. * Hypertension: Continue home regimen including lisinopril, Lasix, PRN hydralazine. * Hyperlipidemia: We will continue patient on statin therapy, FLP in AM. * Former tobacco use: Encourage continued tobacco cessation. * Morbid Obesity: Weight loss and lifestyle changes encouraged. * Chart reported thyroid disorder, unclear type: Clarify medications but currently does not appear to be on any thyroid medications, TSH and free T4 requested. * Anxiety and depression: Per current list not on any chronic regimen, encourage continued outpatient follow-up and evaluation. * History of VTE: Patient with chart reported history of previous DVT, not currently chronically anticoagulated. * Recent rotator cuff pair in the left. Nonweightbearing on the left upper extremity. Patient may follow-up with orthopedics as outpatient. Patient requesting more pain control and her oxycodone was increased from 5 to 10 mg every 4 hours as needed. DVT prophylaxis: Lovenox, therapeutic dosing given awaiting CTPA with concern for pulmonary emboli as potential chest pain etiology given high risk with recent operative intervention however if CTPA is negative for PE then will de- escalate to chemoprophylactic dosing only. CODE STATUS: Full code. Disposition: Plan is for the patient to return to [facility], however she will require precertification before that. Unfortunately with the patient being on bedrest and having recent rotator cuff on the left and a femoral triple-lumen catheter on the right and being on bedrest, she is not able to participate in therapy at this time. After the triple-lumen catheter has been removed then physical therapy can be consulted. Then will need to wait on insurance authorization afterwards. Charges/Coding Visit Charges Inpatient E&M: 85245 Subs Hosp L2
[2023-08-11] MEDS: Atorvastatin Calcium 40 MG Tablet PO (21:58)
[2023-08-11] MEDS: Gabapentin 400 MG Capsule PO (22:06)
[2023-08-12 04:00] VITALS: BMI 30.3
[2023-08-12 05:45] VITALS: BP 104/60; PULSE 74; RESP 15; TEMP 36.7; O2SAT 97
[2023-08-12] MEDS: Acetaminophen 500 MG Tablet 1000 MG PO ×2 (05:52→14:32)
[2023-08-12] MEDS: oxyCODONE 5 MG Tablet 10 MG PO ×2 (05:58→10:52)
--- NOTE | 2023-08-12 06:29 | EKG12_ITS ---
Test Reason : CP Blood Pressure : / mmHG Vent. Rate : 067 BPM Atrial Rate : 067 BPM P-R Int : 148 ms QRS Dur : 074 ms QT Int : 372 ms P-R-T Axes : 077 075 070 degrees QTc Int : 393 ms Normal sinus rhythm Nonspecific T wave abnormality Abnormal ECG When compared with ECG of 05-AUG-2023 02:21, MANUAL COMPARISON REQUIRED, DATA IS UNCONFIRMED Confirmed by ANN CORTÉS, SONIDO ([id number]), photo editor ANNABELLE HWANG ([id number]) on 08/21/2023 12:48:02 PM Referred By: SUSANA Confirmed By:SONIDO JUAREZ MD
[2023-08-12] MEDS: Ipratropium/Albuterol Sulfate 3 ML AMPUL.NEB INHALATION ×2 (06:44→12:55)
[2023-08-12] MEDS: Budesonide Respules 0.5 MG/2 ML AMPUL.NEB. INHALATION (06:44)
[2023-08-12 06:45] VITALS: PULSE 72; RESP 18; O2SAT 94
[2023-08-12 10:10] LABS: Anion Gap 5 (5-15); BUN 30 mg/dL (7-18); BUN/Creat Ratio 22.1 RATIO (10-20); Chloride 102 mmol/L (98-107); Creatinine, Serum 1.36 mg/dL (0.55-1.02); EST Glomerular Filtration Rate 41 mL/min (>60); Est Glom Filt Rate - Afr Amer 50 mL/min (>60); Estimated Creatinine Clearance 37.58 ml/min; Glucose 148 mg/dL (74-106); Potassium 5.1 mmol/L (3.5-5.1); Sodium Level 138 mmol/L (136-145)
--- NOTE | 2023-08-12 10:20 | CASEMGMT ---
SW sent updates to [facility] via [employer]. Guera Fernández DIESEL ENGINE SPECIALIST HEAD COUNSELOR
[2023-08-12 10:32] VITALS: BP 97/52; PULSE 81; RESP 17; TEMP 36.6; O2SAT 96
[2023-08-12] MEDS: Furosemide 20 MG Tablet PO (10:52)
[2023-08-12] MEDS: Pantoprazole Sodium 40 MG Tablet PO (10:52)
[2023-08-12] MEDS: Polyethylene Glycol 3350 17 GM PACKET PO (10:52)
[2023-08-12] MEDS: Senna/Docusate Sodium 1 Tablet 2 TABLET PO (10:52)
[2023-08-12] MEDS: Enoxaparin 120 MG/0.8 ML Syringe 110 MG SC (10:53)
[2023-08-12] MEDS: Aspirin 81 MG TAB.CHEW PO (10:53)
[2023-08-12] MEDS: Gabapentin 300 MG Capsule PO ×2 (10:53→14:32)
--- NOTE | 2023-08-12 11:24 | CASEMGMT ---
Patient was approved to go back to [facility]. SW notified physician. Guera HOFF
[2023-08-12 12:55] VITALS: PULSE 68; RESP 18
--- NOTE | 2023-08-12 13:21 | DCINST_ITS ---
Discharge Instructions Diet Discharge Diet: Carb Control Diet Activity Discharge Activity: Return to Normal Activity Weight Bearing Status: Full weight bearing Follow Up Care Please Follow Up With: Aquiles Jones MD When: As needed Test Results: Test results from this visit will be discussed in further detail at your follow- up appointment, if applicable. Pending Tests Upon Discharge: None Discharge Plan Admission Admit Date/Time: 08/05/23 05:27 Attending Provider: Adrián Burris Primary Care Provider: Aquiles Jones Consulting Providers: Miguelina Castanon; Woodrow Cardenas; Julio Duong Instructions Additional Instructions / Restrictions: Please take medications as prescribed below on discharge. Follow-up with your primary care doctor after your stay at the rehab facility as needed. Discharge Orders/Prescriptions Prescriptions: New polyethylene glycol 3350 17 gram Powder In Packet 17 g PO DAILY 30 Days Qty: 30 0RF sennosides-docusate sodium [Stool Softener-Stimulant Laxat] 8.6-50 mg Tablet 2 tab PO BID 30 Days Qty: 120 0RF acetaminophen 500 mg Tablet 1,000 mg PO Q8 14 Days Qty: 84 0RF oxycodone 5 mg Tablet 10 mg PO Q4H PRN PRN (Reason: Pain Score 6-10) 7 Days Qty: 42 0RF enoxaparin 120 mg/0.8 mL Syringe 110 mg subcut BID 30 Days Qty: 43.998 0RF Continued furosemide 20 mg tablet 20 mg PO DAILY potassium chloride 10 mEq capsule, extended release 10 meq PO DAILY Breztri Aerosphere 160-9-4.8 mcg/actuation HFA aerosol inhaler 2 inh inhalation BID ipratropium-albuterol 0.5 mg-3 mg(2.5 mg base)/3 mL solution for nebulization 3 ml inhalation TID meloxicam 15 mg tablet 15 mg PO DAILY oxybutynin chloride 10 mg tablet extended release 24hr 10 mg PO DAILY diclofenac sodium [Voltaren Arthritis Pain] 1 % gel 2 g topical BID PRN (Reason: pain) Rx Instructions: apply to single elbow, wrist or hand; for hand includes palm/fingers/back of hand lisinopril 10 MG tablet 20 mg PO DAILY aspirin 81 MG tablet,chewable 81 mg PO DAILY Patient Comments: Take 1 tablet by mouth once daily. albuterol sulfate 18 GM HFA aerosol inhaler 2 puff IH Q4H PRN PRN (Reason: Wheezing) Patient Comments: Inhale 2 Puffs as instructed every 4 hours as needed. tizanidine 2 MG capsule 2 mg PO Q8 PRN (Reason: Muscle Spasm) gabapentin 300 mg capsule 300 mg PO TID atorvastatin 40 mg tablet 40 mg PO DAILY Patient Comments: Take 1 tablet by mouth once daily. gabapentin 100 mg capsule 400 mg PO QHS Patient Comments: TAKE 1 CAPSULE BY MOUTH DAILY AT BEDTIME FOR 90 DAYS. TAKE IN ADDITION TO 300MG DOSE TO EQUAL 400MG BEFORE BED omeprazole 40 mg capsule,delayed release(DR/EC) 40 mg PO DAILY Patient Comments: Take 1 capsule by mouth once daily. Discontinued etodolac 400 mg tablet 400 mg PO BID oxycodone-acetaminophen [Percocet] 5-325 mg tablet 1 tab PO Q6H PRN (Reason: pain) 3 Days Qty: 14 0RF oxycodone-acetaminophen [Percocet] 5-325 mg tablet 1 tab PO Q6H 3 Days Qty: 12 0RF prednisone 20 mg tablet 60 mg PO DAILY Qty: 15 0RF Referrals / Follow Up: Aquiles Jones MD [Primary Care Provider] - ELI BRAGG NP-C [Non-Staff] - Disposition Disposition (needs filled in before D/C Order can be placed): Detention Facility
[2023-08-12 13:28] VITALS: BP 105/48; PULSE 87; RESP 18; TEMP 36.6; O2SAT 99
--- NOTE | 2023-08-12 13:28 | PCM.DC.SUM ---
Providers Date of Admission: 08/05/23 Date of Discharge: 08/12/23 Primary Care Physician: Dr. Aquiles Jones MD Reason For Visit: CHEST PAIN, INDETERM TROP Diagnosis Discharge Diagnosis (1) Chest pain: Status: Acute Code(s): R07.9 - Chest pain, unspecified Qualifiers: Chest pain type: unspecified Qualified Code(s): R07.9 - Chest pain, unspecified (2) Difficult intravenous access: Status: Acute Code(s): Z78.9 - Other specified health status Medications at Discharge Home Medications albuterol sulfate 90 mcg/actuation aerosol inhaler 2 puff IH Q4H PRN PRN Wheezing 08/26/20 aspirin 81 mg chewable tablet 81 mg PO DAILY BLOOD CLOT 08/26/20 lisinopril 10 mg tablet 20 mg PO DAILY bp 08/26/20 tizanidine 2 mg capsule 2 mg PO Q8 PRN Muscle Spasm 08/26/20 atorvastatin 40 mg tablet 40 mg PO DAILY 02/07/21 furosemide 20 mg tablet 20 mg PO DAILY 10/17/22 potassium chloride 10 mEq capsule,extended release 10 meq PO DAILY 10/17/22 budesonide 160 mcg-glycopyr 9 mcg-formot 4.8 mcg/actuation HFA inhaler (Breztri Aerosphere) 2 inh inhalation BID 02/08/23 gabapentin 300 mg capsule 300 mg PO TID nerve pain 02/08/23 ipratropium 0.5 mg-albuterol 3 mg (2.5 mg base)/3 mL nebulization soln 3 ml inhalation TID 02/08/23 meloxicam 15 mg tablet 15 mg PO DAILY 02/08/23 oxybutynin chloride 10 mg tablet,extended release 24 hr 10 mg PO DAILY 02/08/23 diclofenac sodium 1 % topical gel (Voltaren Arthritis Pain) 2 g topical BID PRN pain 02/15/23 gabapentin 100 mg capsule 400 mg PO QHS 08/05/23 omeprazole 40 mg capsule,delayed release 40 mg PO DAILY 08/05/23 acetaminophen 500 mg tablet 1,000 mg (2 x 500 mg) PO Q8 14 days #84 tabs 08/12/23 enoxaparin 40 mg/0.4 mL subcutaneous syringe (Lovenox) 40 mg (0.4 mL) subcut DAILY 14 days #5.6 mL 08/12/23 oxycodone 5 mg tablet 10 mg (2 x 5 mg) PO Q4H PRN PRN Pain Score 6-10 7 days #42 tabs 08/12/23 polyethylene glycol 3350 17 gram oral powder packet 17 g PO DAILY 30 days #30 ea 08/12/23 sennosides 8.6 mg-docusate sodium 50 mg tablet (Stool Softener-Stimulant Laxative) 2 tab PO BID 30 days #120 tabs 08/12/23 Hospital Course Operations None Procedures EKG, Nuclear stress test, Transthoracic echo and - (VQ scan, venous Doppler study, chest x-ray) Summary of Care Provided Minutes Spent on Discharge: 35 Hospital Course: Patient presented to [facility] on 08/05/2023 from [facility] with chest pain. Hospital course as noted below. Chest pain: Presented with chest pain and mild hypoxia. Hypoxia resolved fairly quickly. Troponins were only mildly elevated. Stress test 08/06 was negative. Echo showed an EF of 70%, was otherwise normal. CTA was unable to be performed due to difficult IV access as noted below so VQ scan was done; VQ scan showed very low priority for PE. Suspected that chest pain is most likely musculoskeletal versus possibly due to acid reflux. Continued home PPI, symptom management as needed on discharge. Difficult IV access: Patient was unable to have a peripheral IV placed hospitalized. This was partially due to the fact that her left arm was not amenable to IV placement due to recent left rotator cuff surgery requiring a sling. A PICC line was attempted but was also unsuccessful. Patient ultimately had to have a right femoral triple-lumen catheter placed during admission. Femoral line was then removed prior to discharge. Patient did have some bleeding post line removal, required stitches at right femoral artery site. Ultimately, would recommend that patient have a Mediport placed for future hospitalizations if IV access is needed. Recent left rotator cuff repair, debility: Patient came to the ED from [facility]. PT/OT/case management followed during this hospitalization. Patient was stable for discharge back to [facility] on 08/12. Patient notably did require oxycodone somewhat frequently during his admission for pain control. Discharged on Tylenol 1000 mg every 8 hours scheduled plus oxycodone 10 mg every 4 hours as needed for pain control. Discharge diagnoses: ? Chest pain, improved ? Difficult IV access ? Recent left rotator cuff repair with pain ? Debility ? Chronic COPD ? Hyperkalemia, improved ? PAD ? Hypertension ? Hyperlipidemia ? Morbid obesity ? Anxiety/depression Total clinical time spent by myself addressing the patient's medical issues, reviewing all the data, and collaborating with patient's care team: 35 minutes. Physical Exam Const alert, oriented x3 and no apparent distress Constitutional Narrative: Obese, sitting comfortably in bed, conversing normally, no acute distress. General Appearance: cooperative and comfortable HEENT normocephalic, head/scalp atraumatic, hearing grossly normal bilaterally, nasal mucous membranes and turbinates normal and moist oral mucous membranes Eyes PERRL, EOMs intact bilaterally and conjunctivae normal Neck full ROM, no lymphadenopathy and supple Lymph Lymphatic: no lymphadenopathy noted Chest inspection of chest normal Resp normal respiratory effort, normal air movement, no use of accessory muscles and clear to auscultation bilaterally Cardio regular rate, regular rhythm, no murmurs and peripheral pulses 2+ throughout GI normal to inspection, nondistended, normoactive bowel sounds, soft to palpation, non-tender and non-distended Back/Spine normal ROM Extremity normal to inspection and no pedal edema Extremity Narrative: Left shoulder in sling. Skin no rashes or lesions noted Psych mental status grossly normal Weight / BMI Weight Weight: 85.2 kg Body Mass Index (BMI) 30.3 ABG / Lab / Microbiology Data 08/11/23 05:51 08/12/23 09:21 Laboratory: Laboratory Results - last 24 hr 08/12/23 09:21: Sodium 138, Potassium 5.1, Chloride 102, Carbon Dioxide 31.0, Anion Gap 5, BUN 30 H, Creatinine 1.36 H, Estim Creat Clear Calc 37.58, Est GFR (MDRD) Af Amer 50 L, Est GFR (MDRD) Non-Af 41 L, BUN/Creatinine Ratio 22.1 H, Glucose 148 H, Calcium 9.0 D/C Instructions Discharge Diet: Carb Control Diet Weight Bearing Status: Full weight bearing Pending Tests Upon Discharge: None Please Follow Up With: Aquiles Jones MD When: As needed Meaningful Use Info Meaningful Use Diagnoses (Choose all that apply): None applicable Discharge Plan Admission Admit Date/Time: 08/05/23 05:27 Attending Provider: Adrián Burris Primary Care Provider: Aquiles Jones Consulting Providers: Miguelina Castanon; Woodrow Cardenas; Julio Duong Instructions Additional Instructions / Restrictions: Please take medications as prescribed below on discharge. Follow-up with your primary care doctor after your stay at the rehab facility as needed. Discharge Orders/Prescriptions Prescriptions: New polyethylene glycol 3350 17 gram Powder In Packet 17 g PO DAILY 30 Days Qty: 30 0RF sennosides-docusate sodium [Stool Softener-Stimulant Laxat] 8.6-50 mg Tablet 2 tab PO BID 30 Days Qty: 120 0RF acetaminophen 500 mg Tablet 1,000 mg PO Q8 14 Days Qty: 84 0RF oxycodone 5 mg Tablet 10 mg PO Q4H PRN PRN (Reason: Pain Score 6-10) 7 Days Qty: 42 0RF enoxaparin [Lovenox] 40 mg/0.4 mL syringe 40 mg subcut DAILY 14 Days Qty: 5.6 0RF Continued furosemide 20 mg tablet 20 mg PO DAILY potassium chloride 10 mEq capsule, extended release 10 meq PO DAILY Breztri Aerosphere 160-9-4.8 mcg/actuation HFA aerosol inhaler 2 inh inhalation BID ipratropium-albuterol 0.5 mg-3 mg(2.5 mg base)/3 mL solution for nebulization 3 ml inhalation TID meloxicam 15 mg tablet 15 mg PO DAILY oxybutynin chloride 10 mg tablet extended release 24hr 10 mg PO DAILY diclofenac sodium [Voltaren Arthritis Pain] 1 % gel 2 g topical BID PRN (Reason: pain) Rx Instructions: apply to single elbow, wrist or hand; for hand includes palm/fingers/back of hand lisinopril 10 MG tablet 20 mg PO DAILY aspirin 81 MG tablet,chewable 81 mg PO DAILY Patient Comments: Take 1 tablet by mouth once daily. albuterol sulfate 18 GM HFA aerosol inhaler 2 puff IH Q4H PRN PRN (Reason: Wheezing) Patient Comments: Inhale 2 Puffs as instructed every 4 hours as needed. tizanidine 2 MG capsule 2 mg PO Q8 PRN (Reason: Muscle Spasm) gabapentin 300 mg capsule 300 mg PO TID atorvastatin 40 mg tablet 40 mg PO DAILY Patient Comments: Take 1 tablet by mouth once daily. gabapentin 100 mg capsule 400 mg PO QHS Patient Comments: TAKE 1 CAPSULE BY MOUTH DAILY AT BEDTIME FOR 90 DAYS. TAKE IN ADDITION TO 300MG DOSE TO EQUAL 400MG BEFORE BED omeprazole 40 mg capsule,delayed release(DR/EC) 40 mg PO DAILY Patient Comments: Take 1 capsule by mouth once daily. Discontinued etodolac 400 mg tablet 400 mg PO BID oxycodone-acetaminophen [Percocet] 5-325 mg tablet 1 tab PO Q6H PRN (Reason: pain) 3 Days Qty: 14 0RF oxycodone-acetaminophen [Percocet] 5-325 mg tablet 1 tab PO Q6H 3 Days Qty: 12 0RF prednisone 20 mg tablet 60 mg PO DAILY Qty: 15 0RF Referrals / Follow Up: Aquiles Jones MD [Primary Care Provider] - ELI BRAGG NP-C [Non-Staff] - Disposition Disposition (needs filled in before D/C Order can be placed): [facility] Facility Charges/Coding Visit Charges Inpatient E&M: 68316 Disch Hosp >30min
--- NOTE | 2023-08-12 13:37 | PHA.DC.MR.R ---
Pharmacy [place] Med Reconciliation Pharmacy Service has performed discharge medication reconciliation for this patient. The patient's discharge medication list was reviewed for discrepancies and discrepancies were resolved. Medications at Discharge Home Medications albuterol sulfate 90 mcg/actuation aerosol inhaler 2 puff IH Q4H PRN PRN Wheezing 08/26/20 aspirin 81 mg chewable tablet 81 mg PO DAILY BLOOD CLOT 08/26/20 lisinopril 10 mg tablet 20 mg PO DAILY bp 08/26/20 tizanidine 2 mg capsule 2 mg PO Q8 PRN Muscle Spasm 08/26/20 atorvastatin 40 mg tablet 40 mg PO DAILY 02/07/21 furosemide 20 mg tablet 20 mg PO DAILY 10/17/22 potassium chloride 10 mEq capsule,extended release 10 meq PO DAILY 10/17/22 budesonide 160 mcg-glycopyr 9 mcg-formot 4.8 mcg/actuation HFA inhaler (Breztri Aerosphere) 2 inh inhalation BID 02/08/23 gabapentin 300 mg capsule 300 mg PO TID nerve pain 02/08/23 ipratropium 0.5 mg-albuterol 3 mg (2.5 mg base)/3 mL nebulization soln 3 ml inhalation TID 02/08/23 meloxicam 15 mg tablet 15 mg PO DAILY 02/08/23 oxybutynin chloride 10 mg tablet,extended release 24 hr 10 mg PO DAILY 02/08/23 diclofenac sodium 1 % topical gel (Voltaren Arthritis Pain) 2 g topical BID PRN pain 02/15/23 gabapentin 100 mg capsule 400 mg PO QHS 08/05/23 omeprazole 40 mg capsule,delayed release 40 mg PO DAILY 08/05/23 acetaminophen 500 mg tablet 1,000 mg (2 x 500 mg) PO Q8 14 days #84 tabs 08/12/23 enoxaparin 120 mg/0.8 mL subcutaneous syringe 110 mg (0.7333 mL) subcut BID 30 days #43.998 mL 08/12/23 oxycodone 5 mg tablet 10 mg (2 x 5 mg) PO Q4H PRN PRN Pain Score 6-10 7 days #42 tabs 08/12/23 polyethylene glycol 3350 17 gram oral powder packet 17 g PO DAILY 30 days #30 ea 08/12/23 sennosides 8.6 mg-docusate sodium 50 mg tablet (Stool Softener-Stimulant Laxative) 2 tab PO BID 30 days #120 tabs 08/12/23
[2023-08-12 14:00] VITALS: O2SAT 99
--- NOTE | 2023-08-12 14:16 | CASEMGMT ---
Patient is ready for discharge back to [facility]. SW sent orders to [facility] via [employer]. SW called [facility] and arranged for patient to get picked up at 330 via wheelchair. RN and secretary board of commissioners notified. SW will also notify patient. Plan: d/c back to [facility] under skilled level of care. [facility] will transport patient. Guera HOFF
--- NOTE | 2023-08-12 15:40 | NURSING ---
Pt report called to [facility]. Pt left at 1540.
== END 2023-08-12 15:28 ==
LOC: ED 05:43 → PCU 05:46
PROVIDERS: Internal Medicine; Admitting Provider Family Medicine; Emergency Provider Emergency Medicine; PCP Family Medicine; Visit Provider Hospitalist
DX: R07.89 Other chest pain (principal); J44.9 Chronic obstructive pulmonary disease, unspecified; I73.9 Peripheral vascular disease, unspecified; E66.01 Morbid (severe) obesity due to excess calories; R53.81 Other malaise; I10 Essential (primary) hypertension; R77.8 Other specified abnormalities of plasma proteins; M25.512 Pain in left shoulder; Z79.82 Long term (current) use of aspirin; Z87.891 Personal history of nicotine dependence; E87.5 Hyperkalemia; E78.5 Hyperlipidemia, unspecified; Z68.30 Body mass index [BMI] 30.0-30.9, adult; R09.02 Hypoxemia; Z79.899 Other long term (current) drug therapy; Z87.898 Personal history of other specified conditions; Z86.19 Personal history of other infectious and parasitic diseases; Z86.718 Personal history of other venous thrombosis and embolism; R94.31 Abnormal electrocardiogram [ECG] [EKG]; Z98.890 Other specified postprocedural states
CPT/HCPCS: 36415; 71045; 78452; 78582; 80048; 80053; 80061; 80307; 83735; 83880; 84132; 84484; 85025; 85379; 93005; 93017; 93306; 93970; 94640; 94668; 96361; 96365; 96372; 96375; 97110; 97162; 97166; 97530; 97535; 99221; 99285; A9500; A9540; A9567; J7030; J7040; Q9957; A4216; C8929; G0378; J2405; J2785; J3490

== ENCOUNTER 2023-11-10 18:40 | Emergency (ER) | payer MEDICARE, MEDICAID, SELFPAY ==
[2023-11-10 18:41] VITALS: BP 182/94; PULSE 92; RESP 16; TEMP 36.3; O2SAT 99; BMI 35.0
--- NOTE | 2023-11-10 18:55 | ED.VIS.LOWEX ---
HPI History of Present Illness Chief Complaint: Lower Extremity Injury Informant: patient Narrative Narrative: Patient accidentally slipped and hit the left lateral 3 toes into the leg of a couch at home. No other injury. She did not fall to the ground. Nothing was else was hurt. This happened about 5 or 6 hours ago. [facility] Medical History Alcohol abuse Chronic hepatitis C without hepatic coma Cocaine abuse COPD (chronic obstructive pulmonary disease) DVT (deep venous thrombosis) Euthyroid sick syndrome H/O cocaine abuse H/O ETOH abuse HTN (hypertension) Lumbar herniated disc Pinched nerve in neck Presence of stent in artery Smoker Thyroid disorder Home Medications albuterol sulfate 90 mcg/actuation aerosol inhaler 2 puff IH Q4H PRN PRN Wheezing 08/26/20 [History Last Taken 08/26/20] aspirin 81 mg chewable tablet 81 mg PO DAILY BLOOD CLOT 08/26/20 [History Last Taken 09/12/20] lisinopril 10 mg tablet 20 mg PO DAILY bp 08/26/20 [History Last Taken 09/12/20] tizanidine 2 mg capsule 2 mg PO Q8 PRN Muscle Spasm 08/26/20 [History Last Taken 08/26/20] atorvastatin 40 mg tablet 40 mg PO DAILY 02/07/21 [History Last Taken Unknown] furosemide 20 mg tablet 20 mg PO DAILY 10/17/22 [History Last Taken Unknown] potassium chloride 10 mEq capsule,extended release 10 meq PO DAILY 10/17/22 [History Last Taken Unknown] budesonide 160 mcg-glycopyr 9 mcg-formot 4.8 mcg/actuation HFA inhaler (Breztri Aerosphere) 2 inh inhalation BID 02/08/23 [History Last Taken Unknown] gabapentin 300 mg capsule 300 mg PO TID nerve pain 02/08/23 [History Last Taken Unknown] ipratropium 0.5 mg-albuterol 3 mg (2.5 mg base)/3 mL nebulization soln 3 ml inhalation TID 02/08/23 [History Last Taken Unknown] meloxicam 15 mg tablet 15 mg PO DAILY 02/08/23 [History Last Taken Unknown] oxybutynin chloride 10 mg tablet,extended release 24 hr 10 mg PO DAILY 02/08/23 [History Last Taken Unknown] diclofenac sodium 1 % topical gel (Voltaren Arthritis Pain) 2 g topical BID PRN pain 02/15/23 [History Last Taken Unknown] gabapentin 100 mg capsule 400 mg PO QHS 08/05/23 [History Last Taken Unknown] omeprazole 40 mg capsule,delayed release 40 mg PO DAILY 08/05/23 [History Last Taken Unknown] acetaminophen 500 mg tablet 1,000 mg (2 x 500 mg) PO Q8 14 days #84 tabs 08/12/23 [Rx Last Taken Unknown] enoxaparin 40 mg/0.4 mL subcutaneous syringe (Lovenox) 40 mg (0.4 mL) subcut DAILY 14 days #5.6 mL 08/12/23 [Rx Last Taken Unknown] oxycodone 5 mg tablet 10 mg (2 x 5 mg) PO Q4H PRN PRN Pain Score 6-10 7 days #42 tabs 08/12/23 [Rx Last Taken Unknown] polyethylene glycol 3350 17 gram oral powder packet 17 g PO DAILY 30 days #30 ea 08/12/23 [Rx Last Taken Unknown] sennosides 8.6 mg-docusate sodium 50 mg tablet (Stool Softener-Stimulant Laxative) 2 tab PO BID 30 days #120 tabs 08/12/23 [Rx Last Taken Unknown] Allergy/AdvReac Type Severity Reaction Status Date / Time No Known Allergies Allergy Verified 08/05/23 02:19 Family History Mother Hypertension Other Alcoholism Surgical History H/O vascular surgery History of rotator cuff surgery Stenosis of artery of left lower extremity Social History household members: none Smoking Status: Former smoker how long ago did patient quit smoking: January 2022 alcohol intake: former substance use type: former substance user Date of last use: 03/2020 and crack/cocaine caffeine: Yes Type: carbonated beverages and coffee ROS ROS ED Constitutional Constitutional ED: Denies chills or fever(s) ENT ENT ED: Denies sore throat Cardiovascular Cardiovascular: Denies chest pain Respiratory/Chest Respiratory/Chest: Denies cough Gastrointestinal Gastrointestinal: Denies nausea or vomiting Musculoskeletal Musculoskeletal: Reports arthralgias Integumentary Denies rash Hematologic/Lymphatic Hematologic/Lymphatic: Denies easy bleeding or easy bruising Allergic/Immunologic Allergic/Immunologic ED: Denies urticaria EXAM Physical Exam Narrative Exam Narrative: General: Patient awake alert no acute distress laying comfortably on the bed. HEENT shows no trauma. Cardiorespiratory shows easy unlabored breathing. Abdomen is prominent but nontender. Extremities left foot had sock and shoe removed. There may be just a little bit of redness to the lateral 3 toes. But is not warm. It looks more contused. I see no deformity. There is mild tenderness. No tenderness in the midfoot ankle or higher up the leg. Const Vital Signs: 11/10/23 18:41 Temperature 97.3 F L Temperature Source Temporal Pulse Rate 92 Respiratory Rate 16 Blood Pressure 182/94 H Blood Pressure Mean 123 Pulse Ox 99 Oxygen Delivery Method Room Air MDM MDM MDM Narrative Medical decision making narrative: My independent interpretation of the patient's three-view x-ray of the left foot shows a fracture of the distal portion of the proximal phalanx of the fourth ray. This is seen in 1 view but not well and the others but she is tender there I think is likely real. But this should heal with kasandra taping and rest. I was going to prescribe pain meds for her. But when I do an online prescribing report she has gotten regular pain meds from a single prescriber for quite some time. She got 7 days of pain meds just about 5 or 6 days ago. I will give her Percocet here which she has had before but I cannot write for further narcotics at home. Radiography Diagnostic Testing: Clinical Impression(s) from Imaging Studies Foot X-Ray 11/10/23 19:10 IMPRESSION: Fracture through the distal portion of the fourth proximal phalanx. Electronically Signed: Jb Lei MD at 19:33 EST , Discharge Plan Triage Chief Complaint: Lower Extremity Injury ED Provider: Isidro Dominguez Dx/Rx/DC Orders Clinical Impression: Closed fracture of toe Instructions: ED Fracture, Toe, Closed Prescriptions: No Action furosemide 20 mg tablet 20 mg PO DAILY potassium chloride 10 mEq capsule, extended release 10 meq PO DAILY Breztri Aerosphere 160-9-4.8 mcg/actuation HFA aerosol inhaler 2 inh inhalation BID ipratropium-albuterol 0.5 mg-3 mg(2.5 mg base)/3 mL solution for nebulization 3 ml inhalation TID meloxicam 15 mg tablet 15 mg PO DAILY oxybutynin chloride 10 mg tablet extended release 24hr 10 mg PO DAILY diclofenac sodium [Voltaren Arthritis Pain] 1 % gel 2 g topical BID PRN (Reason: pain) Rx Instructions: apply to single elbow, wrist or hand; for hand includes palm/fingers/back of hand lisinopril 10 MG tablet 20 mg PO DAILY aspirin 81 MG tablet,chewable 81 mg PO DAILY Patient Comments: Take 1 tablet by mouth once daily. albuterol sulfate 18 GM HFA aerosol inhaler 2 puff IH Q4H PRN PRN (Reason: Wheezing) Patient Comments: Inhale 2 Puffs as instructed every 4 hours as needed. tizanidine 2 MG capsule 2 mg PO Q8 PRN (Reason: Muscle Spasm) gabapentin 300 mg capsule 300 mg PO TID atorvastatin 40 mg tablet 40 mg PO DAILY Patient Comments: Take 1 tablet by mouth once daily. gabapentin 100 mg capsule 400 mg PO QHS Patient Comments: TAKE 1 CAPSULE BY MOUTH DAILY AT BEDTIME FOR 90 DAYS. TAKE IN ADDITION TO 300MG DOSE TO EQUAL 400MG BEFORE BED omeprazole 40 mg capsule,delayed release(DR/EC) 40 mg PO DAILY Patient Comments: Take 1 capsule by mouth once daily. polyethylene glycol 3350 17 gram Powder In Packet 17 g PO DAILY 30 Days Qty: 30 0RF sennosides-docusate sodium [Stool Softener-Stimulant Laxat] 8.6-50 mg Tablet 2 tab PO BID 30 Days Qty: 120 0RF acetaminophen 500 mg Tablet 1,000 mg PO Q8 14 Days Qty: 84 0RF oxycodone 5 mg Tablet 10 mg PO Q4H PRN PRN (Reason: Pain Score 6-10) 7 Days Qty: 42 0RF enoxaparin [Lovenox] 40 mg/0.4 mL syringe 40 mg subcut DAILY 14 Days Qty: 5.6 0RF Primary Care Provider: Leonie Castillo Referrals: Leonie Castillo MD [Primary Care Provider] - 1 Week Disposition Disposition: Home, Self Care
--- OUTSIDE RECORDS SUMMARY | 2023-11-10 18:55 | XMS RPT_ITS | CCD ---
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 Role Phone Myke Burdick Attending Unavail able Darryl Boudreaux Referring Unavailable Brown, Delorise Primary Care Unavailable Myke Burdick Attending Unavail able Alexis, Delorise Primary Care Unavailable Myke Burdick Attending Unavail able Myke Burdick Referring Unavail able Brown, Delorise Primary Care Unavailable Myke Burdick Admitting Unavail able Iglesia Sesay Primary Care Provider UnavailLUCIANO Hawkins Attending Unavailable PROVIDER, UNKNOWN Admitting Unavailable PROVIDER, UNKNOWN Attending Unavailable PROVIDER, UNKNOWN Admitting Unavailable GANTA, MOLLY Primary Care Unavailable DOMINICK PAYTON Referring Unavailab le GANTA, MOLLY Primary Care Unavailable JANETTDOMINICK ARRIAGA Attending Unavailab le GANTA, MOLLY Primary Care Unavailable GANTA, MOLLY Primary Care Unavailable DOMINICK PAYTON Referring Unavailab le GANTA, MOLLY Primary Care Unavailable JANETTDOMINICK ARRIAGA Attending Unavailab le GANTA, MOLLY Primary Care Unavailable JANETTDOMINICK ARRIAGA Attending Unavailab le GANTA, MOLLY Primary Care Unavailable MAXWELL, MATTHEW Attending Unavailable GANTA, MOLLY Primary Care Unavailable MAXWELL MATTHEW Attending Unavailable GANTA, MOLLY Primary Care Unavailable MAXWELL, MATTHEW Attending Unavailable GANTA, MOLLY Primary Care Unavailable DIDI CARVAJAL Attending Unavailable GANTA, MOLLY Primary Care Unavailable ELI BRAGG Attending Unavailable GANTA, MOLLY Primary Care Unavailable CHANDANA CONN Attending Unavailable MAXWELL, MATTHEW Referring Unavailable GANTA, MOLLY Primary Care Unavailable CHANDANA CONN Attending Unavailable MAXWELL, MATTHEW Referring Unavailable GANTA, MOLLY Primary Care Unavailable KHUSHBOO HARMAN Referring Unavailable GANTA, MOLLY Primary Care Unavailable KATHLEEN GOINS Referring Unavailable KATHLEEN GOINS Attending Unavailable GANTA, MOLLY Primary Care Unavailable OLDER ELI Attending Unavailable GANTA, MOLLY Primary Care Unavailable OLDER, ELI Referring Unavailable GANTA, MOLLY Primary Care Unavailable MYKE CHONG Referring Unavailable GANTA, MOLLY Primary Care Unavailable STACEY LUZ Attending Unavailable OLDER, ELI Referring Unavailable GANTA, MOLLY Primary Care Unavailable CHANDANA CONN Attending Unavailable GANTA, MOLLY Primary Care Unavailable GANTA, MOLLY Referring Unavailable GANTA, MOLLY Primary Care Unavailable GANTA, MOLLY Referring Unavailable GANTA, MOLLY Referring Unavailable GANTA, MOLLY Primary Care Unavailable GANTA, MOLLY Primary Care Unavailable GANTA, MOLLY Referring Unavailable OLDER, ELI Referring Unavailable OBED BARTHA Attending Unavailable GANTA, MOLLY Primary Care Unavailable OBED BARTHA Attending Unavailable GANTA, MOLLY Primary Care Unavailable JOHN STOVALL Referring Unavailable GANTA, MOLLY Primary Care Unavailable KHUSHBOO HARMAN Attending Unavailable GANTA, MOLLY Primary Care Unavailable JOHN STOVALL Referring Unavailable GANTA, MOLLY Primary Care Unavailable JOHN STOVALL Attending Unavailable GANTA, MOLLY Primary Care Unavailable MYKE CHONG Attending Unavailable KHUSHBOO HARMAN Referring Unavailable GANTA, MOLLY Primary Care Unavailable OLDERELI Attending Unavailable GANTA, MOLLY Primary Care Unavailable OLDER ELI Attending Unavailable GANTA, MOLLY Primary Care Unavailable CHANDANA CONN Attending Unavailable GANTA, MOLLY Primary Care Unavailable GANTA, MOLLY Referring Unavailable CHANDANA CONN Attending Unavailable GANTA, MOLLY Primary Care Unavailable GANTA, MOLLY Referring Unavailable GANTA, MOLLY Primary Care Unavailable GANTA, MOLLY Referring Unavailable CHANDANA CONN Attending Unavailable GANTA, MOLLY Primary Care Unavailable GANTA, MOLLY Referring Unavailable OLDER, ELI Referring Unavailable GANTA, MOLLY Primary Care Unavailable GANTA, MOLLY Referring Unavailable GANTA, MOLLY Primary Care Unavailable OLDER ELI Attending Unavailable GANTA, MOLLY Primary Care Unavailable ARMANI GUTIERREZ Attending Unavailable GANTA, MOLLY Primary Care Unavailable GANTA, MOLLY Primary Care Unavailable GANTA, MOLLY Referring Unavailable MATHEUS FERNANDEZ Attending Unavailable GANTA, MOLLY Primary Care Unavailable DOMINICK PAYTON Attending Unavailab le GANTA, MOLLY Primary Care Unavailable GHAZALKHUSHBOO Referring Unavailable GANTA, MOLLY Primary Care Unavailable GHAZALKHUSHBOO Attending Unavailable GHAZAL, KHUSHBOO [place] Referring Unavailable GANTA, MOLLY Primary Care Unavailable KATHLEEN GOINS Referring Unavailable GANTA, MOLLY Primary Care Unavailable GANTA, MOLLY Primary Care Unavailable GANTA, MOLLY Referring Unavailable CHRIS CRAVEN Attending Unavailable GANTA, MOLLY Primary Care Unavailable OLDERELI Referring Unavailable GANTA, MOLLY Primary Care Unavailable GHAZALKHUSHBOO Referring Unavailable GANTA, MOLLY Primary Care Unavailable OLDERELI Attending Unavailable GANTA, MOLLY Primary Care Unavailable GANTA, MOLLY Attending Unavailable GANTA, MOLLY Primary Care Unavailable MIRTHA SAMANO Referring Unavailable GANTA, MOLLY Primary Care Unavailable MIRTHA SAMANO Attending Unavailable GANTA, MOLLY Primary Care Unavailable ELI BRAGG Attending Unavailable GANTA, MOLLY Primary Care Unavailable JOHN STOVALL Referring Unavailable JOHN STOVALL Attending Unavailable GANTA, MOLLY Primary Care Unavailable MATTHEW ARREOLA Referring Unavailable GANTA, MOLLY Primary Care Unavailable OLDERELI Attending Unavailable GANTA, MOLLY Primary Care Unavailable JOHN STOVALL Referring Unavailable GANTA, MOLLY Primary Care Unavailable GHAZALKHUSHBOO Referring Unavailable GANTA, MOLLY Primary Care Unavailable GHAZALKHUSHBOO Attending Unavailable GANTA, MOLLY Primary Care Unavailable GHAZAL, KHUSHBOO [place] Referring Unavailable GANTA, MOLLY Primary Care Unavailable GHAZALKHUSHBOO Referring Unavailable GANTA, MOLLY Primary Care Unavailable Allergies Allergy Classification Reported Allergen(s) Allergy Type Date of Onset Reaction(s) Facility (1 source) traMADol Drug Allergy 05-22-2016 Nausea Only [facility] [place], [place] Medications Current Medications Medication Drug Class(es) Dates Sig (Normalized) Sig (Original) PHENobarbital 97.2 mg oral tablet (1 source) Start: 04-13-2020 PHENobarbital (LUMINAL) tablet 97.2 mg Problems Active Problems Problem Classification Problem Date Documented Da te Episodic/Chronic Chronic obstructive pulmonary disease and bronchiectasis (5 sources) Chronic obstructive pulmonary disease, unspecified; Translations: [Chronic obstructive lung disease] Onset: 04-17-2016 05-22-2016 Chronic Complications of surgical procedures or medical care (1 source) Other intraoperative and postprocedural complications and disorders of the musculoskeletal system; Translations: [Failure of rotator cuff repair] Onset: 11-05-2023 Episodic Disorders of lipid metabolism (2 sources) Other hyperlipidemia; Translations: [Other hyperlipidemia] Onset: 12-12-2020 Chronic Essential hypertension (3 sources) Essential hypertension; Translations: [Essential (primary) hypertension] Onset: 04-17-2016 05-22-2016 Chronic Hepatitis (2 sources) Chronic viral hepatitis C; Translations: [Chronic hepatitis C without hepatic coma (HCC)] Onset: 06-07-2020 Chronic Mood disorders (1 source) Depressive disorder; Translations: [Depression] Onset: 04-17-2016 05-22-2016 Chronic Osteoarthritis (1 source) Secondary osteoarthritis, left shoulder; Translations: [Other secondary osteoarthritis of left shoulder] Onset: 11-05-2023 Chronic Other and ill-defined heart disease (1 source) Other ill-defined heart diseases; Translations: [Diastolic dysfunction] Onset: 09-13-2022 Chronic Other nervous system disorders (2 sources) Other chronic pain; Translations: [Chronic left shoulder pain] Onset: 11-01-2020 Chronic Other nervous system disorders (1 source) Other acute postprocedural pain; Translations: [Acute post-operative pain] Onset: 08-15-2023 Episodic Peripheral and visceral atherosclerosis (2 sources) Peripheral vascular disease, unspecified; Translations: [PAD (peripheral artery disease) ([facility])] Onset: 09-21-2020 Chronic Phlebitis; thrombophlebitis and thromboembolism (1 source) Personal history of other venous thrombosis and embolism; Translations: [Personal history of other venous thrombosis and embolism] Onset: 01-05-2019 Episodic Pulmonary heart disease (2 sources) Pulmonary hypertension, unspecified; Translations: [Pulmonary hypertension (HCC)] Onset: 09-13-2022 Chronic Residual codes; unclassified (4 sources) Other specified postprocedural states; Translations: [S/P left rotator cuff repair] Onset: 08-15-2023 Episodic Respiratory failure; insufficiency; arrest (adult) (3 sources) Chronic respiratory failure with hypoxia; Translations: [Dependence on supplemental oxygen] Onset: 07-19-2022 Chronic Spondylosis; intervertebral disc disorders; other back problems (3 sources) Other spondylosis with radiculopathy, cervical region; Translations: [Spondylosis without myelopathy or radiculopathy, cervical region] Onset: 01-05-2019 Chronic Substance-related disorders (3 sources) Nicotine dependence, cigarettes, uncomplicated; Translations: [Cocaine abuse] Onset: 04-17-2016 05-22-2016 Chronic Thyroid disorders (2 sources) Thyrotoxicosis, unspecified without thyrotoxic crisis or storm; Translations: [Other specified hypothyroidism] Onset: 01-30-2023 Chronic Unclassified (1 source) Long-term current use of drug therapy; 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] Onset: 04-17-2016 05-22-2016 Past or Other Problems Problem Classification Problem Date Documented Da te Episodic/Chronic Diabetes mellitus without complication (2 sources) Prediabetes; Translations: [Other abnormal glucose] Onset: 02-05-2023 Episodic Fracture of upper limb (2 sources) Fracture of unspecified carpal bone, left wrist, subsequent encounter for fracture with routine healing; Translations: [Closed fracture of left wrist with routine healing, subsequent encounter] Onset: 03-06-2023 Episodic Immunizations and screening for infectious disease (2 sources) Encounter for immunization; Translations: [Encounter for immunization] Onset: 05-17-2023 Episodic Malaise and fatigue (1 source) Asthenia; Translations: [Adynamia] Onset: 11-19-2011 05-22-2016 Episodic Other aftercare (1 source) Other detention (current) drug therapy; Translations: [Medication management] Onset: 05-22-2023 Episodic Other connective tissue disease (1 source) Other muscle spasm; Translations: [Muscle spasm] Onset: 02-22-2023 Episodic Other diseases of kidney and ureters (1 source) Disorder of kidney and ureter, unspecified; Translations: [Function kidney decreased] Onset: 07-02-2023 Episodic Other injuries and conditions due to external causes (1 source) Injury of shoulder and upper arm; Translations: [Injury of shoulder and upper arm] Onset: 04-05-2011 05-22-2016 Episodic Other lower respiratory disease (1 source) Shortness of breath; Translations: [SOB (shortness of breath)] Onset: 10-17-2020 Episodic Other non-traumatic joint disorders (3 sources) Pain in left shoulder; Translations: [Chronic left shoulder pain] Onset: 11-01-2020 Episodic Other screening for suspected conditions (not mental disorders or infectious disease) (4 sources) Encounter for screening for malignant neoplasm of respiratory organs; Translations: [Encounter for screening for osteoporosis] Onset: 12-27-2022 Episodic Residual codes; unclassified (1 source) Tobacco use; Translations: [Tobacco abuse] Onset: 06-26-2021 Episodic Residual codes; unclassified (1 source) Asymptomatic menopausal state; Translations: [Asymptomatic menopause] Onset: 05-17-2023 Episodic Screening and history of mental health and substance abuse codes (1 source) Personal history of nicotine dependence; Translations: [Former cigarette smoker] Onset: 05-28-2023 Episodic Spondylosis; intervertebral disc disorders; other back problems (4 sources) Radiculopathy, cervical region; Translations: [Backache] Onset: 04-17-2016 05-22-2016 Episodic Sprains and strains (1 source) Strain of muscle(s) and tendon(s) of the rotator cuff of left shoulder, subsequent encounter; Translations: [Traumatic tear of left rotator cuff, subsequent encounter] Onset: 07-18-2023 Episodic Results Test Name Value Interpretation Reference Range Facil ity Vital Signs Date Time Vital Sign Value Performing Clinician León andujar 04-13-2020 18:51-0400 Body Temperature 98.4 [degF] [facility] [place] 04-13-2020 18:51-0400 BP Diastolic 84 mm[Hg] [facility] [place] 04-13-2020 18:51-0400 BP Systolic 145 mm[Hg] [facility] [place] 04-13-2020 18:51-0400 Pulse (Heart Rate) 79 /min [facility] 04-13-2020 18:51-0400 Pulse Oximetry 95 % [facility] [place] 04-13-2020 18:51-0400 Respiratory Rate 18 /min [facility] [place] 04-13-2020 09:30-0400 BMI (Body Mass Index) 16.94 kg/m2 [facility] [place] 04-13-2020 09:30-0400 Body weight 47.6 kg [facility] [place] Encounters Encounter Date Encounter Type Care Provider Facility Start: 11-06-2023 End: 11-07-2023 ambulatory ELI BRGAG Facility:[facility] Start: 11-05-2023 End: 11-05-2023 ambulatory DOMINICK PAYTON Facility:[facility] Start: 10-25-2023 End: 10-25-2023 ambulatory MATTHEW MAXWELL Facility:[facility] Start: 10-04-2023 End: 10-04-2023 ambulatory CHANDANA FABIEN Facility:[facility] Start: 10-01-2023 End: 10-01-2023 ambulatory MATTHEW MAXWELL Facility:[facility] Start: 09-27-2023 End: 09-27-2023 ambulatory CHANDANA FABIEN Facility:[facility] Start: 09-19-2023 End: 09-19-2023 ambulatory MOLLY KEVINTA Facility:[facility] Start: 09-16-2023 End: 09-16-2023 ambulatory CHANDANA FABIEN Facility:[facility] Start: 09-13-2023 End: 09-13-2023 ambulatory CHANDANA FABIEN Facility:[facility] Start: 09-11-2023 End: 09-11-2023 ambulatory CHANDANA FABIEN Facility:[facility] Start: 09-10-2023 End: 09-10-2023 ambulatory MATTHEW MAXWELL Facility:[facility] Start: 09-04-2023 End: 09-04-2023 ambulatory MATHEUS FERNANDEZ Facility:[facility] Start: 09-03-2023 End: 09-03-2023 ambulatory CHANDANA FABIEN Facility:[facility] Start: 08-15-2023 End: 08-15-2023 ambulatory MATTHEW MAXWELL Facility:[facility] Start: 07-22-2023 End: 07-23-2023 ambulatory DOMINICK PAYTON Facility:[facility] Start: 07-17-2023 End: 07-17-2023 ambulatory KHUSHBOO HARMAN Facility:[facility] Start: 07-11-2023 End: 07-11-2023 ambulatory JOHN STOVALL Facility:[facility] Start: 07-10-2023 End: 07-10-2023 ambulatory ELI OLDER Facility:[facility] Start: 07-02-2023 End: 07-02-2023 ambulatory KATHLEEN HALLLE Facility:[facility] Start: 07-02-2023 End: 07-03-2023 ambulatory MOLLY GANTA Facility:[facility] Start: 06-28-2023 End: 06-28-2023 ambulatory KATHLEEN HALLLE Facility:[facility] Start: 05-28-2023 End: 05-28-2023 ambulatory MYKE TORITOPSTER Facility:[facility] Start: 05-27-2023 End: 05-28-2023 ambulatory ELI OLDER Facility:[facility] Start: 05-22-2023 End: 05-23-2023 ambulatory MOLLY GANTA Facility:[facility] Start: 05-17-2023 End: 05-18-2023 ambulatory ARMANI GUTIERREZ Facility:[facility] Start: 05-02-2023 End: 05-03-2023 ambulatory ELI OLDER Facility:[facility] Start: 05-01-2023 End: 05-01-2023 ambulatory MYKE ANNETER Facility:[facility] Start: 04-30-2023 End: 04-30-2023 ambulatory DOMINICK PAYTON Facility:[facility] Start: 04-15-2023 End: 04-15-2023 ambulatory JOHN STOVALL Facility:[facility] Start: 03-18-2023 End: 03-18-2023 ambulatory KHUSHBOO HARMAN Facility:[facility] Start: 03-06-2023 End: 03-06-2023 ambulatory UNKNOWN PROVIDER Facility:[facility] Start: 02-28-2023 End: 02-28-2023 ambulatory ELI OLDER Facility:[facility] Start: 02-22-2023 End: 02-23-2023 ambulatory ELI OLDER Facility:[facility] Start: 02-20-2023 End: 02-21-2023 ambulatory MOLLY PETERSON Facility:[facility] Start: 02-19-2023 Encounter for other preprocedural examination DOMINICK PAYTON [facility] Start: 02-11-2023 End: 02-11-2023 ambulatory KHUSHBOO HARMAN Facility:[facility] Start: 02-05-2023 End: 02-06-2023 ambulatory ELI OLDER Facility:[facility] Start: 02-05-2023 Encounter for other preprocedural examination DIDI CARVAJAL [facility] Start: 02-04-2023 End: 02-04-2023 ambulatory ELI OLDER Facility:[facility] Start: 01-30-2023 End: 01-31-2023 ambulatory MOLLY GANTA Facility:[facility] Start: 01-21-2023 End: 01-22-2023 ambulatory MOLLY GANTA Facility:[facility] Start: 01-21-2023 Encounter for other preprocedural examination MOLLY GANTA [facility] Start: 01-11-2023 End: 01-11-2023 ambulatory MOLLY GANTA Facility:[facility] Start: 01-10-2023 End: 01-10-2023 ambulatory MOLLY GANTA Facility:[facility] Start: 12-27-2022 End: 12-28-2022 ambulatory ELI OLDER Facility:[facility] Start: 12-27-2022 Encounter for other preprocedural examination ELI OLDER [facility] Start: 12-21-2022 End: 12-21-2022 ambulatory DIDI CARVAJAL Facility:[facility] Start: 12-19-2022 End: 12-19-2022 ambulatory KHUSHBOO HARMAN Facility:[facility] Start: 12-14-2022 End: 12-14-2022 ambulatory DOMINICK PAYTON Facility:[facility] Start: 12-11-2022 ambulatory DOMINICK PAYTON F acility:[facility] Start: 12-04-2022 End: 12-04-2022 ambulatory DOMINICK PAYTON Facility:[facility] Start: 11-29-2022 ambulatory CHRIS Traore lity:[facility] Start: 11-22-2022 End: 11-23-2022 ambulatory ELI OLDER Facility:[facility] Start: 11-09-2022 End: 11-09-2022 ambulatory MIRTHA SAMANO Facility:[facility] Start: 04-13-2020 End: 04-13-2020 Emergency department patient visit Tommie Odonnell Work Phone: [facility] Emergency Dept Procedures Date Procedure Procedure Detail Performing Clinician Start: 04-30-2023 Follow-up visit Follow Up PRASANTH PAYTON Start: 04-13-2020 COVID-19 Ben Box [employer] Work Phone: Start: 04-13-2020 Assay of ethanol Ben D Juan Work Phone: Start: 04-13-2020 Blood count complete auto&auto difrntl wbc Ben Franky [employer] Work Phone: Start: 04-13-2020 Comprehensive metabolic panel Ben Franky [employer] Work Phone: Start: 04-13-2020 Creatine kinase total A sirena Franky [employer] Work Phone: Start: 04-13-2020 Drug screen class list a Ben Franky Juan Work Phone: Start: 04-13-2020 Urnls dip stick/tabl et rgnt auto w/o microscopy Ben Franky [employer] Work Phone: Start: 12-12-2019 Blood count complete auto&auto difrntl wbc RAHI MELINDA Start: 12-12-2019 CATH BLADDER FOR UA RAH I MELINDA Start: 12-12-2019 Ct head/brain w/o co ntrast material RAHI MELINDA Start: 12-12-2019 DISCHARGE PATIENT RAHI MELINDA Start: 12-12-2019 Drug screen class list a RAHI MELINDA Start: 12-12-2019 Drug screen quantita tive alcohols RAHI MELINDA Start: 12-12-2019 PROVIDE CONSTANT SUP ERVISION, PSYCHIATRIC RAHI MELINDA Start: 12-12-2019 Urnls dip stick/tabl et rgnt auto w/o microscopy RAHI MELINDA Start: 11-29-2019 Electrocardiogram Start: 11-25-2019 Electrocardiogram Start: 01-05-2019 Njx dx/ther sbst int rlmnr crv/thrc w/img gdn Myke Burdick Plan of Treatment Date Care Activity Detail Author Start: 05-31-2020 Influenza vaccination Flu vaccine (# 1) [facility] [place] Start: 01-19-2006 Screening for malign ant neoplasm of breast Breast cancer screen [place], [place] Start: 01-19-2006 Screening for malign ant neoplasm of colon Colon cancer screen colonoscopy [place], [place] Start: 01-19-2006 Shingles Vaccine (1 of 2) Shingles Vaccine (1 of 2) [place], [place] Start: 1996 Lipid panel Lipid screen [place], [place] Start: 01-19-1977 Screening for malign ant neoplasm of cervix Cervical cancer screen [place], [place] Start: 01-19-1975 DTaP/Tdap/Td vaccine (1 - Tdap) DTaP/Tdap/Td vaccine (1 - Tdap) [place], [place] Start: 01-19-1971 HIV screening HIV screen [place], [place] Start: 1956 Creatinine measurement Creatinine mo nitoring [place], [place] Start: 1956 Hepatitis C screening Hepatitis C sc reen [place], [place] Start: 1956 [facility] [place] [place] Payers Date Payer Category Payer Unknown [id number] 2017 Medicaid [id number] 2017 Medicare [id number] 2016 Unknown [facility] [id number] 2016-Present [phone] CLAIMS DEPARTMENT [address] [place] [address] [id number] 1956 Unknown [id number] 1956 Unknown [id number] 1956 Unknown [id number] 1956 Unknown [id number] Medicare [id number] Social History Date Type Detail Facility Start: 04-13-2020 Tobacco smoking stat us NHIS Current every day smoker [place], [place] History of tobacco use Cigarette Smoker M [place], [place] Start: 04-13-2020 Cigarettes smoked current (pack per day) - Reported [place], [place] Start: 04-13-2020 Tobacco use and exposure Never used [place], [place] Start: 04-13-2020 Alcohol intake Current drinke r of alcohol (finding) [place], [place] Sex Assigned At Not on file [place] Exposure to SARS-CoV -2 (event) Not sure [place] Clinical Notes 11-09-2022 to 11-06-2023 Note Date & Type Note Facility 11-06-2023 Note [facility] 10-25-2023 Note [facility] 10-04-2023 Note [facility] 10-01-2023 Note HNO ID: [id number] Author: Matthew Arreola PA-C Service: ? Author Type: Physician Acid Adjuster Type: Progress Notes Filed: 10/01/2023 12:48 PM Note Text: Matthew Arreola PA-C Department of Orthopaedics October 01, 2023 SURGERY: Left shoulder arthroscopic rotator cuff repair of supraspinatus 1 cm, subscapularis 5 mm, biceps tenodesis SUBJECTIVE: Patient returns to clinic now 8 weeks status post the above procedure. Has continued to have fairly significant pain in the shoulder and arm, particularly into her biceps. Denies any specific injury. Has been struggling with physical therapy. Exam: Well healed portal sites. Active forward elevation to 90 with pain. Tender along biceps muscle but no obvious deformity. ASSESSMENT: M25.512 Left shoulder pain, unspecified chronicity (primary encounter diagnosis) Z98.890 S/P left rotator cuff repair SUMMARY/PLAN: Reviewed her exam and treatment options. She has had worsening pain over the last couple of weeks without acute injury that she can recall today. Will obtain an MRI of her shoulder to evaluate her repair. Recommend she continue with physical therapy in the interim. Return to clinic after the MRIs been completed to review the results with Dr. Payton. Matthew Arreola PA-C [facility] 09-27-2023 Note [facility] 09-19-2023 Note [facility] 09-16-2023 Note [facility] 09-13-2023 Note [facility] 09-11-2023 Note [facility] 09-10-2023 Note HNO ID: [id number] Author: Matthew Arreola PA-C Service: ? Author Type: Physician Acid Adjuster Type: Progress Notes Filed: 09/10/2023 10:55 AM Note Text: Matthew Arreola PA-C Department of Orthopaedics September 10, 2023 SURGERY: Left shoulder arthroscopic rotator cuff repair of supraspinatus 1 cm partial articular and subscapularis 5 mm articular, biceps tenodesis SUBJECTIVE: Patient returns to clinic now 6 weeks status post the above procedure. Has been progressing with PT. Very tearful today regarding pain. Requesting a refill. Recommend she stop her tizanidine while taking the Percocet. Exam: Well healed portal sites. Active forward elevation to 30, passive to 90 with guarding. ASSESSMENT: Z98.890 S/P left rotator cuff repair (primary encounter diagnosis) SUMMARY/PLAN: We will progress to PT phase 2 exercises. No lifting greater than 1 pound. Wean off pain medication as able. Continue to ice/heat as needed. Return to clinic in 6 weeks for repeat examination. Matthew Arreola PA-C [facility] 09-04-2023 Note [facility] 09-03-2023 Note [facility] 08-15-2023 Note HNO ID: [id number] Author: Matthew Arreola PA-C Service: ? Author Type: Physician Acid Adjuster Type: Progress Notes Filed: 08/15/2023 3:30 PM Note Text: Matthew Arreola PA-C Department of Orthopaedics August 15, 2023 SURGERY: Left shoulder arthroscopic rotator cuff repair of supraspinatus 1 cm partial articular and subscapularis 5 mm articular sided, arthroscopic biceps tenodesis SUBJECTIVE: Patient returns to clinic now 2 weeks status post the above procedure. Wearing sling as directed. Pain controlled on pain medication. [facility] been [facility] a [facility] facility and is not happy with this. She wants to go home. States they have not done any therapy with her. Exam: Examination of shoulder reveals healing portal sites without erythema or drainage. Resolving ecchymoses. Able to flex and extend through elbow and digits. ASSESSMENT: Z98.890 S/P rotator cuff repair (primary encounter diagnosis) G89.18 Acute post-operative pain SUMMARY/PLAN: Provided outpatient physical therapy order and rehabilitation protocol. I refilled her pain medication. No lifting greater than 1 lb with arm. Discussed sling use. Continue to ice the shoulder. She can discharge from the penitentiary facility when they deem her safe to do so. Return to clinic in 4 weeks for repeat examination. Matthew Arreola PA-C [facility] 08-02-2023 Note HNO ID: [id number] Author: Millie Barnes RN Service: Care Management Author Type: Registered Nurse Type: Care Mgt Progress Note Filed: 08/02/2023 3:07 PM Note Text: CARE MANAGEMENT DISCHARGE NOTE SERVICE DATE: August 02, 2023 SERVICE TIME: 3:05 PM Admission Date: 07/30/2023 LOS: 1 day Discharge Arrangement Discharge Arrangement: [facility] Facility Was an expedited discharge program used?: No Services Arranged Medical Services: Other: See Comment Provider Name: [facility] Caregiver Assessment Caregiver is ready, willing and able to meet the patient's needs as recommended by the inter-professional team: No Caregiver needed Transportation Arrangements Transportation Arrangements: Ambulance Transportation Agency and Phone #:: [facility] ( [facility] ) [phone] / [phone] Date of Trip: 08/02/23 Time of Trip: 1200 Type of Service: BLS Non-emergency Is Patient Medicaid Pending?: No Was transportation financial coverage discussed with family?: Patient [facility] Location: [facility] Destination: [facility] Financial Care Management Responsibility: None Additional Information: Discharge orders in place, pt has precert for [facility], facility able to accept pt today, pt agreeable to cot transportation at discharge, pt aware of potential oop cost, cot transportation set up for noon today through [employer]; pt notified of the following information and agreeable to plan; pt ready for discharge from care management standpoint SIGNATURE: Millie Barnes RN PATIENT NAME: Dianne Alves DATE: August 02, 2023 TIME: 3:05 PM CONTACT #: [id number] [facility] 08-02-2023 Note HNO ID: [id number] Author: Pankaj Lagos MD Service: Orthopaedic Surgery Author Type: Resident Type: Progress Notes Filed: 08/02/2023 6:25 AM Note Text: Orthopaedic Surgery Inpatient Progress Note Assessment Dianne Alves is a 68 year old female who is POD #2 status-post left rotator cuff repair. Plan Pain control. Weight Bearing Status: NWB in sling. Dressing(s): maintain sling and swatch with soft dressing PT/OT: recommending SNF DVT PPx: SCDs. Antibiotic PPx: 2 g ancef Q8H x 2 doses. Chang: none. Imaging: none. Anticipated Length of Stay/Disposition: SNF, precert accepted - discharge today Subjective No acute events overnight. Pain to left shoulder. No new numbness or tingling. Hasn't had a bowel movement in a few days. Senna added on. No fevers, chills, chest pain, or shortness of breath. No new complaints. Precert accepted. Plan to discharge today following transportation arrangements. Physical Examination Vitals BP 91/73 Pulse 78 Temp 36.2 ?C (97.2 ?F) (Oral) Resp 18 SpO2 96% General Alert. No acute distress. Cooperative with interview. Left Upper Extremity No swelling, ecchymosis, or erythema. Tape over left shoulder No open wounds or lacerations. SILT Ax/M/U/R. Motor intact Ax/AIN/PIN/U. R/U pulses palpable; BCR all digits. Compartments soft and compressible Labs Recent Labs 07/31/23 0426 CREAT 1.09* HB 14.4 HCT 43.7 Imaging No new imaging Pankaj Lagos MD Orthopaedic Surgery - PGY 3 5:59 AM 08/02/2023 Pager #[phone] [facility] 08-01-2023 Note HNO ID: [id number] Author: Karen Massey Service: Care Management Author Type: ? Type: Care Mgt Progress Note Filed: 08/01/2023 4:04 PM Note Text: [facility] ([facility]CERT [facility] for [facility]. Precert approved through 08/03. SIGNATURE: Karen Massey DATE: August 01, 2023 TIME: 4:04 PM [facility] 08-01-2023 Note HNO ID: [id number] Author: Millie Barnes RN Service: Care Management Author Type: Registered Nurse Type: Care Mgt Progress Note Filed: 08/01/2023 3:44 PM Note Text: -- Attestation signed by Doron Nicole MD at 08/01/2023 5:07 PM Agree with the above statement. No further changes. Patient in need of additional assistance in the form of penitentiary. Doron Nicole MD Orthopaedic Surgery 08/01/2023 5:07 PM -- CARE MANAGEMENT PROGRESS NOTE SERVICE DATE: 08/01/2023 SERVICE TIME: 3:43 PM LOS: 0 days Physician Certification of Less Than 30 Days Post-Acute Nursing Facility Needed Earliest Possible Discharge Date: 08/01/23 To the best of my knowledge, all information provided about the individual is a true and an accurate reflection of Dianne Alves's needs. I certify that following the inpatient level of care, a post-acute nursing facility stay is required for less than 30 days related to the condition(s) for which the patient was treated during the inpatient level of care: Principal Problem: Traumatic tear of left rotator cuff, subsequent encounter Resolved Problems: * No resolved hospital problems. * Physician: Doron Nicole MD SIGNATURE: Millie Barnes RN PATIENT NAME: Dianne Alves DATE: August 01, 2023 TIME: 3:43 PM PAGER/CONTACT #: [id number] [facility] 08-01-2023 Note HNO ID: [id number] Author: Millie Barnes RN Service: Care Management Author Type: Registered Nurse Type: Care Mgt Initial Assessment Filed: 08/01/2023 3:51 PM Note Text: CARE MANAGEMENT: ASSESSMENT AND DISCHARGE PLAN SERVICE DATE: August 01, 2023 SERVICE TIME: 2:27 PM PCP: Molly Peterson MD Primary Contact: Extended Emergency Contact Information Primary Emergency Contact: Felicitas Glez Relation: Friend Admission Status: Inpatient Insurance Provider: [facility] Discharge Planning requested by: Per Department Practice Potential Transition Plans [facility] Facility/Intermediate Care Facility Advance Directives Current Advance Directive: None [employer] Manager Attempted to Assist with AD Completion: Yes Action: Patient Unwilling Current Living Arrangements and Support Lives with: Alone Type of Residence: Private Residence (Apartment or Condo) Does the patient have to climb stairs at home?: Yes Support: Friends/neighbors How do you manage to accomplish the following: Independent: Ambulation;Bathe/Shower;Dress;Going to the bathroom;Meals/Meal Prep;Medication Management;Transportation to appointments/community Current Services/Equipment Current Post-Acute Service(s): DME Current DME Type: Other: See Comment, Oxygen (rollator) Current Post-Acute Service(s) Provider: receives O2 from [employer] Discharge Planning Patient Goal(s): General wellness, Ambulate a little better [place] of Choice Explained: [place] of Choice Given: Yes Level of Care Discussed: [facility] Facility Are you interested in bedside delivery of your medications? No Discharge Planning Participant(s): Patient Patient/Family Comments: Caregiver Assessment: Caregiver is ready, willing and able to meet the patient's needs as recommended by the inter-professional team: No Caregiver needed Transport at Discharge: Transportation Arrangements: Ambulance Needs Prior to Discharge: Needs Prior to Discharge: Accepting Facility;Precertification Post-Acute Discharge Plan: Functional: Independent prior to admission Transportation: pt will likely need cot transportation at dc Equipment Prior to Admission: rollator , home O2 (2-3L at baseline, from [employer]) Support: pt lives at home alone Pharmacy: [facility] PCP: Molly Peterson Spoke with pt for initial assessment , discussed PT/OT recs for SNF, pt agreeable to SNF list, SNF list provided, [facility] ; also agreeable to sending referrals to [facility], [facility] , and [facility]; referrals sent Addendum: [facility] not able to accept at this time, only accepting facility is [facility], pt agreeable to starting precert for SNF [facility] , precert requested SIGNATURE: Millie Barnes RN PATIENT NAME: Dianne Alves DATE: August 01, 2023 TIME: 2:27 PM CONTACT #: [id number] [facility] 08-01-2023 Note HNO ID: [id number] Author: Pankaj Lagos MD Service: Orthopaedic Surgery Author Type: Resident Type: Progress Notes Filed: 08/01/2023 6:14 AM Note Text: Orthopaedic Surgery Inpatient Progress Note Assessment Dianne Alves is a 68 year old female who is POD #2 status-post left rotator cuff repair. Plan Pain control. Weight Bearing Status: NWB in sling. Dressing(s): maintain sling and swatch with soft dressing PT/OT: recommending SNF DVT PPx: SCDs. Antibiotic PPx: 2 g ancef Q8H x 2 doses. Chang: none. Imaging: none. Anticipated Length of Stay/Disposition: SNF Subjective No acute events overnight. Still complaining of significant pain. Does not feel like she can go home and wants to go to a facility. No new numbness or tingling. No fevers, chills, chest pain, or shortness of breath. No new complaints. Physical Examination Vitals BP (!) 101/49 Pulse 72 Temp 36.7 ?C (98.1 ?F) (Axillary) Resp 16 SpO2 95% General Alert. No acute distress. Cooperative with interview. Left Upper Extremity No swelling, ecchymosis, or erythema. Tape over left shoulder No open wounds or lacerations. SILT Ax/M/U/R. Motor intact Ax/AIN/PIN/U. R/U pulses palpable; BCR all digits. Compartments soft and compressible Labs Recent Labs 07/31/23 0426 CREAT 1.09* HB 14.4 HCT 43.7 Imaging No new imaging Pankaj Lagos MD Orthopaedic Surgery - PGY 3 6:01 AM 08/01/2023 Pager #[phone] [facility] 07-31-2023 Note HNO ID: [id number] Author: Pankaj Lagos MD Service: Orthopaedic Surgery Author Type: Resident Type: Progress Notes Filed: 07/31/2023 6:24 AM Note Text: Orthopaedic Surgery Inpatient Progress Note Assessment Dianne Alves is a 68 year old female who is POD #1 status-post left rotator cuff repair. Plan Pain control. Weight Bearing Status: NWB in sling. Dressing(s): maintain sling and swatch with soft dressing PT/OT: Evaluation AND recommendations. DVT PPx: SCDs. Antibiotic PPx: 2 g ancef Q8H x 2 doses. Chang: none. Imaging: none. Anticipated Length of Stay/Disposition: dc home in AM. Subjective No acute events overnight. Pain to left shoulder. She says it kept her up at night. Denies any new numbness or tingling. No fevers, chills, chest pain, or shortness of breath. No new complaints. Physical Examination Vitals BP (!) 126/46 Pulse 79 Temp 36.8 ?C (98.2 ?F) (Temporal) Resp 15 SpO2 96% General Alert. No acute distress. Cooperative with interview. Left Upper Extremity No swelling, ecchymosis, or erythema. Tape over left shoulder No open wounds or lacerations. SILT Ax/M/U/R. Motor intact Ax/AIN/PIN/U. R/U pulses palpable; BCR all digits. Compartments soft and compressible Labs Recent Labs 07/31/23 0426 CREAT 1.09* HB 14.4 HCT 43.7 Imaging No new imaging Pankaj Lagos MD Orthopaedic Surgery - PGY 3 6:02 AM 07/31/2023 Pager #[phone] [facility] 07-30-2023 Note HNO ID: [id number] Author: Kristi Hoskins, CHARMAINE Service: Nursing Author Type: Registered Nurse Type: Nursing Progress Note Filed: 07/30/2023 5:30 PM Note Text: Dr. Sam at the bedside and gave 100 mcg phenylephrine IV. [facility] 07-30-2023 Note HNO ID: [id number] Author: Kristi Hoskins RN Service: Nursing Author Type: Registered Nurse Type: Nursing Progress Note Filed: 07/30/2023 5:28 PM Note Text: Dr. Sam aware of systolic blood pressures= 60's/70's. States he will come to the bedside. [facility] 07-30-2023 Note HNO ID: [id number] Author: Adia Mckeon APRN.CRNA Service: ? Author Type: Nurse Ticket Puller Type: Anesthesia Procedure Notes Filed: 07/30/2023 3:47 PM Note Text: ANESTHESIOLOGY PROCEDURE NOTE Airway General Information Procedure Start Time/Medication Administration: 07/30/2023 3:34 PM Patient location during procedure: OR Timeout Performed Pre-procedure: timeout performed Consent Obtained: Yes Patient identity confirmed: arm band Staffing Anesthesiologist: Delisa Howell MD [employer] PROGRAM COORDINATOR: Adia Mckeon APRN.CRNA SRNA: Drake Currie SRNA Performed by: BRENT Indications and Patient Condition Indications for airway management: anesthesia and airway protection Preoxygenated: yes anesthesia circuit Patient position: sniffing Method: asleep Cricoid Pressure: No Manual In-Line Stabilization: No Difficult Mask: No Airway Accessory: oral airway Final Airway Details Final airway type: endotracheal airway Final Endotracheal Airway: ETT Cuffed: yes Successful intubation technique: video laryngoscopy Devices used: Lang Endotracheal tube insertion site: oral Blade: Hernesto Blade size: #3 ETT size (mm): 7.0 Measured from: lips Measurement (cm): 22 Placement verified by: chest auscultation and capnometry Cormack-Lehane Classification: grade I - full view of glottis Number of attempts at approach: 1 Failed airway: no Unrecognized esophageal intubation: no Airway not difficult SIGNATURE: Adia Mckeon APRN.CRNA PATIENT NAME: Dianne Alves DATE: July 30, 2023 TIME: 3:47 PM CSN: [id number] [facility] 07-23-2023 Note HNO ID: [id number] Author: Courtney Cline APRN.CNP Service: General Surgery Author Type: Nurse Practitioner Type: Progress Notes Filed: 07/23/2023 10:44 AM Note Text: -- Summary: anesthesia -- Reviewed progress note from [facility] with Dr. Siddhartha Hong in anesthesia. Will evaluate patient DOS. OK to proceed at this time. [facility] 07-22-2023 Note HNO ID: [id number] Author: Addie Pratt APRN.CNP Service: ? Author Type: Nurse Practitioner Type: Progress Notes Filed: 07/22/2023 12:49 PM Note Text: -- Summary: [facility] -- [employer] please review with anesthesia for a heads up, patient is having shoulder surgery under general anesthesia with interscalene block, history significant for COPD and chronic use of O2, 3L today at [facility], pulse ox 92%, up to 96% after taking deep breaths, appears SOB with talking, however pt states it's been her baseline. Pt does have pulmonary, cardiac and primary care clearance, MARTIN with pulmonary 07/17/23. METs 1.75 Surgery 07/30/[address] Payton. PMHx: Traumatic tear of left rotator cuff, subsequent encounter Surgery scheduled 07/30/[address] Payton Chronic hypoxemic respiratory failure (HCC) Home O2 2-3L use - 3L when I'm up and about, 2L when in hospital Follow pulmonary, MARTIN 07/17/23 per note: ARISCAT score for postoperative pulmonary complications 11 points, low risk, 1.6% risk of in-hospital postop pulmonary complications including respiratory failure, respiratory infection, pleural effusion, atelectasis, pneumothorax, bronchospasm and aspiration pneumonia. Recommend use of triple inhaler therapy and scheduled Duoneb in perioperative periods; Early ambulation, IS; Monitor oxygen needs closely On PE pt appears SOB when talking, need to take a breath before finishing a sentence; patient states feeling breathing has been about the same, no increase in SOB. Lung sound CTA no crackles or wheezing Instructed patient to adhere with instruction from boat master and use inhalers as prescibed COPD (chronic obstructive pulmonary disease) (HCC) Bretzi, DuoNeb, Albuterol Pt uses rescue inhaler 1-2 times daily. Use of Duoneb sometimes. Denies hospitalization or pneumonia in the last 6 months. Instructed to use inhaler as prescribed and bring DOS. Tobacco abuse Former 52 years smoker, quit 02/11/22 Pulmonary hypertension (HCC) Follow with pulmonary ECHO 07/31/22 no measurement of RVSP, EF 69%, Grade I LV diastolic dysfuction Essential hypertension On lasix, lisinopril Instructed to take BP medication DOS with sip of water. Hold Lasix DOS PAD (peripheral artery disease) (HCC) S/p vascular surgery left leg stenting 2014 Stable, follow vascular. Other hyperlipidemia On statin Continue therapy perioperatively Chronic hepatitis C without hepatic coma ([facility]) No medication. Followed by PCP [facility] 07-17-2023 Note [facility] 07-17-2023 Note [facility] 07-11-2023 Note [facility] 07-11-2023 Note [facility] 07-10-2023 Note [facility] 07-02-2023 Note [facility] 07-02-2023 Note HNO ID: [id number] Author: Kathleen Goins, Service: ? Author Type: Physician Type: Progress Notes Filed: 07/30/2023 5:12 PM Note Text: This office note has been dictated. Kathleen Goins DO [facility] 05-28-2023 Note HNO ID: [id number] Author: Myke Chong APRN.CNP Service: ? Author Type: Nurse Practitioner Type: Progress Notes Filed: 05/28/2023 5:06 PM Note Text: opened in error [facility] 05-28-2023 Note [facility] 05-27-2023 Note [facility] 05-17-2023 Note [facility] 05-02-2023 Note [facility] 05-01-2023 Note [facility] 04-30-2023 Note HNO ID: [id number] Author: Dominick Payton MD Service: ? Author Type: Physician Type: Progress Notes Filed: 04/30/2023 2:03 PM Note Text: PAIN EVALUATION 04/30/2023 0958 Pain Level: 7 Description: Aching;Sore Encounter Diagnosis ICD-10-CM 1. Tear of left rotator cuff, unspecified tear extent, unspecified whether traumatic M75.102 Dianne Alves turns follow-up on left shoulder pain and weakness due to rotator cuff tearing. She had been scheduled for surgery but unfortunately broke her wrist and had to have this fixed. She has been recovering uneventfully from the wrist surgery and would like to reschedule her shoulder surgery. On exam today she demonstrates once again difficulty with lifting and rotating of the left shoulder with weakness in elevation and rotation. I reviewed her MRI which shows high-grade partial-thickness tearing with possible full-thickness component to the supraspinatus tearing. We discussed once again surgery to fix her rotator cuff. This would involve a 3 to 6-month recovery and I would like to wait at least 3 months from the time of her wrist surgery before she undergoes shoulder surgery to ensure that she heals from the last procedure. We will schedule her for an appropriate date later in the fall. Risk benefits and alternatives to surgery were discussed and informed consent was signed in the office. She will require presurgical testing as well specifically related to her COPD. We reviewed her history of drug abuse but she states she has been clean since about 2019 and she states that she would take a drug test if needed. We will order this for her prior to surgery if necessary based on anesthesia evaluation. Dominick Payton MD Shoulder AND Elbow Surgeon Department of Orthopaedic Surgery [facility] 04-30-2023 Note HNO ID: [id number] Author: Diogenes Maciel Tech Service: ? Author Type: Ironer Sock Type: Progress Notes Filed: 04/30/2023 2:03 PM Note Text: REVIEW OF SYSTEMS: GENERAL: Well developed, well nourished. No acute distress PAIN: Negative for pain, history of chronic pain or current treatment for chronic pain conditions CARDIOVASCULAR: Negative for chest pain, leg swelling and palpations. MSK: Negative for joint swelling SKIN: Negative for lesions, rash, itching, metal sensitivity NEURO: Numbness/tingling of extremties ENDOCRINE: Negative for diabetic associated symptoms HEMATOLOGY: Clots yes [facility] 04-15-2023 Note [facility] 04-15-2023 Note [facility] 04-15-2023 Note [facility] 03-18-2023 Note [facility] 03-18-2023 Note [facility] 03-18-2023 Note [facility] 03-18-2023 Note [facility] 03-06-2023 Note HNO ID: [id number] Author: Ben Walters MD Service: ? Author Type: Anesthesiologist Type: Anesthesia Procedure Notes Filed: 03/06/2023 2:48 PM Note Text: ANESTHESIOLOGY PROCEDURE NOTE Peripheral Nerve Block General Information Procedure Start Time/Medication Administration: 03/06/2023 2:04 PM Procedure End time: 03/06/2023 2:10 PM Patient location during procedure: OR Timeout Performed Pre-procedure: timeout performed Consent Obtained: Yes Patient identity confirmed: arm band and patient Reason for block: post-op pain management/at surgeon's request Staffing Anesthesiologist: Ben Walters MD Performed by: anesthesiologist Preparation Sterility Preparation: hand hygiene performed prior to procedure, sterile gloves, drapes, and procedure tray, surgical cap used, mask used, sterile drape used during line insertion, skin prep agent completely dried prior to procedure Site Prep: Chloraprep Pre-Procedure Neuro Exam Location: LUE Sensory: intact Motor: intact Procedure Details Patient Position: supine Block Type Upper Extremity: brachial plexus Approach: axillary Laterality: left Injection Technique: single-shot Ultrasound Guided: Yes Image in Chart: yes Needle Needle Type: echogenic Needle Gauge: 20 G Needle Length: 50 mm Assessment Injection assessment: negative aspiration, no paresthesia on injection, incremental injection and local visualized surrounding nerve on ultrasound Paresthesia: immediately resolved Post-Procedure Neuro Exam Expected Regional Anesthesia: No Medications Administered ropivacaine (PF) 5 mg/mL (0.5 %) injection (NAROPIN) - peripheral nerve block 10 mL - 03/06/2023 2:04:00 PM lidocaine 100 mg/5 mL (2 %) IV syringe - INTRAVENOUS 5 mL - 03/06/2023 2:04:00 PM SIGNATURE: Ben Walters MD PATIENT NAME: Dianne Alves DATE: March 06, 2023 TIME: 2:47 PM CSN: [id number] [facility] 02-28-2023 Note [facility] 02-22-2023 Note [facility] 02-20-2023 Note HNO ID: [id number] Author: Destiny Rivera APRN.[place] Service: ? Author Type: Nurse Practitioner Type: Progress Notes Filed: 02/20/2023 1:05 PM Note Text: -- Summary: PAT -- After completion of PAT visit, surgery was canceled by surgeon's office, per open case documentation. [facility] 02-11-2023 Note [facility] 02-05-2023 Note [facility] 02-04-2023 Note [facility] 01-21-2023 Note [facility] 01-10-2023 Note [facility] 12-27-2022 Note [facility] 12-24-2022 Note [facility] 12-21-2022 Note [facility] 12-19-2022 Note [facility] 12-19-2022 Note [facility] 12-19-2022 Note [facility] 12-19-2022 Note [facility] 12-11-2022 Note HNO ID: [id number] Author: Felicitas Whatley RT(R) Service: Radiology Author Type: Technologist Type: Progress Notes Filed: 12/11/2022 2:47 PM Note Text: Radiology Service Progress Note PATIENT NAME: Dianne Alves DATE OF SERVICE: December 11, 2022 TIME: 2:46 PM PATIENT IDENTITY VERIFICATION COMPLETED USING TWO (2) IDENTIFIERS: Name and Date of confirmed by patient verbally. FALL SCREENING: Has the patient had 2 falls in the last year or 1 fall with injury or currently using an Ambulatory Assistive Device (Walker, Cane, Wheelchair, Crutches, etc.)? No PATIENT GENDER DATA: Female. status: : No status: NO. PATIENT RELEVANT IMPLANT DATA REVIEWED: Not Applicable RADIOLOGY DEPARTMENT: MR; Exam(s) Completed: Upper MSK: Shoulder, left PERIPHERAL IV DATA: Not applicable SIGNED BY: Nino Forrest RT(R) December 11, 2022 2:46 PM [facility] 12-04-2022 Note HNO ID: [id number] Author: Dominick Payton MD Service: ? Author Type: Physician Type: Progress Notes Filed: 12/05/2022 8:03 AM Note Text: ORTHOPAEDIC SHOULDER AND ELBOW SERVICE HISTORY AND PHYSICAL EXAM REFERRING PROVIDER: SELF CHIEF COMPLAINT: Left shoulder pain and weakness PAIN EVALUATION 12/04/2022 1351 Pain Level: 8 Pain Location: Shoulder-Left Description: Shooting;Sharp;Aching;Radiating Duration Units: Years Frequency: Intermittent Intervention/Comfort measure: Reposition;Relaxation;Positioning Dianne Alves is a 67 year old woman presents today for evaluation of her left shoulder. She has been referred by her primary care office after she has had essentially no progress with conservative treatment including medical management and injections as well as physical therapy. She has been offered shoulder surgery in the past but declined this. She now is interested in discussing surgical options. She has pain both at rest and with use of the arm. She feels weak with any attempted lifting and rotating of the arm. Treatments and therapies to-date include: Activity modification/changes to daily activities: Yes Medical management (Tylenol, NSAIDs): Yes Physical therapy: Yes Corticosteroid Injection: Yes PAST MEDICAL HISTORY: PAST MEDICAL HISTORY Diagnosis Date Back injury COPD (chronic obstructive pulmonary disease) ([facility]) 09/18 CT chest c/w emphysema, history c/w chronic bronchitis. 12/12/20 FEV1 70% predicted. Depression DVT (deep venous thrombosis) ([facility]) Hepatitis C Hypertension Left shoulder pain PAD (peripheral artery disease) ([facility]) Pinched nerve in neck Substance abuse ([facility]) PAST SURGICAL HISTORY: PAST SURGICAL HISTORY Procedure Laterality Date SHX VASCULAR SURGERY 06/03/15 aortogram,bifem arteriogram,right approach SOCIAL HISTORY: Social History Tobacco Use Smoking status: Former Packs/day: 0.50 Years: 30.00 Pack years: 15.00 Types: Cigarettes Quit date: 02/11/2022 Years since quittin.8 Smokeless tobacco: Never Tobacco comments: I can't afford the patches. 12/12/2020 Vaping Use Vaping Use: Never used Substance Use Topics Alcohol use: Not Currently Comment: recovering alcoholic Drug use: Not Currently Types: Crack Cocaine, Marijuana, Opiates Comment: sober as of 04/19/2020 ALLERGIES: ALLERGIES No Known Allergies MEDICATIONS: Current Outpatient Medications on File Prior to Visit Medication Sig meloxicam (MOBIC) 15 mg tablet Take 1 tablet by mouth once daily. Take with food. diclofenac (VOLTAREN) 1 % topical gel Apply 2 g to affected area twice daily. tiZANidine (ZANAFLEX) 2 mg tablet Take 1-2 tablets every 8 hours as needed for pain/muscle spasms. rkmaubyvhi-mpcnxokm-oravtczhyv (BREZTRI) 160-9-4.8 mcg/actuation HFA aerosol inhaler Inhale 2 Puffs as instructed twice daily. guaiFENesin (MUCINEX) 600 mg 12 hr tablet Take 1 tablet by mouth twice daily. furosemide (LASIX) 20 mg tablet Take 1 tablet by mouth once daily. potassium chloride (K-TAB) 10 mEq tablet Take 1 tablet by mouth daily with breakfast. ipratropium-albuterol (DUONEB) 0.5 mg-3 mg(2.5 mg base)/3 mL nebu Inhale 3 mL as instructed three times daily. lisinopril (ZESTRIL, PRINIVIL) 10 mg tablet Take 1 tablet by mouth once daily. oxybutynin ER (DITROPAN XL) 10 mg 24 hr tablet Take 1 tablet by mouth once daily. Incontinence Pad, Liner, Disp pads 2-3x daily for urge incontinence Blood Pressure Monitor (BLOOD PRESSURE KIT) 1 Each once daily. albuterol HFA (VENTOLIN HFA) 90 mcg/actuation inhaler Inhale 2 Puffs as instructed every 4 hours as needed. atorvastatin (LIPITOR) 40 mg tablet Take 1 tablet by mouth once daily. aspirin 81 mg chewable tablet Take 1 tablet by mouth once daily. Nebulizer and Compressor For Neb 1 Each once daily. Nebulizer Accessories kit 1 Each three times daily as needed. gabapentin (NEURONTIN) 300 mg capsule Take 1 capsule by mouth three times daily for 30 days. Current Facility-Administered Medications on File Prior to Visit Medication perflutren lipid microspheres 1.3 mL in NaCl (PF) 0.9% 10 mL injection (DEFINITY) sodium chloride 0.9 % (flush) 10 mL (BD POSIFLUSH) PHYSICAL EXAMINATION: Resp 20 Ht 167.6 cm (5' 6 ) Wt 97.1 kg (214 lb) BMI 34.54 kg/m? EXAM: Shoulder Musculoskeletal Exam Inspection Left Ecchymosis: none Peripheral edema: none Atrophy: none Symmetry: symmetric Masses: none Skin tenting: none Prior incision: none Palpation Left Crepitus: no crepitus Increased warmth: none Tenderness: present Anterior shoulder: moderate Posterior shoulder: mild Clavicle: none AC joint: mild Sternoclavicular joint: none Rotator cuff: moderate Greater tuberosity: mild Trapezius: mild Medial scapula: none Superior pole of scapula: none Inferior pole of scapula: none Bicipital groove: mild Proximal biceps: moderate Range of Motion Left A (more content not included)... [facility] 11-22-2022 Note [facility] 11-09-2022 Note [facility] 11-09-2022 Note [facility] 11-09-2022 Note [facility] Summary Purpose Family History No Family History Records FoundNo Family History Records FoundNo Family History Records FoundNo Family History Records FoundNo Family History Records FoundNo Family History Records FoundNo Family History Records FoundNo Family History Records FoundNo Family History Records Found Advance Directives No Advanced Directives Records FoundDocuments on File Type Date Recorded Patient Antiquer Expl anation Advance Directives and Living Will Power of Senior Compensation Analyst Hospital Course Note NAME: DIANNE ALVES MR# : [id number] ADMIT DATE: 11/25/2019 DISCHARGE DATE: 12/07/2019 DISCHARGE SUMMARY HISTORY OF PRESENT ILLNESS: The patient is a 64-year-old -[place] female who was evicted from her apartment and brought to the ER. Apparently she reports that she has chronic neuropathy and a history of depression. She has been off medications for some time. For further details of her admitting history, past history, mental status upon admission, please refer to admitting psychiatric assessment. HOSPITAL COURSE: The patient was further assessed, evaluated, treated in our inpatient unit. Furthermore, she was encouraged to take part in all of the treatment activities including occupational and milieu therapies. She is compliant with the medication and treatment of care. There are no significant side effects from the medication. She is pleasant and cooperative. Affect and thought process both shows much improvement. She is more easily redirectable than before. The patient d (more content not included)... Discharge Instructions * Instructions* Ben Martinez PA - 04/13/2020 You were seen in the emergency Department for your cocaine. Unfortunately there are no beds at [facility] detox facility. Please follow-up with the resources provided to you for local help. * Attachments The following attachments cannot be sent through Care Everywhere. * Drug Overdose: Cocaine (Mongolian) documented in this encounter Assessments Diagnosis Cocaine abuse (HCC) Cocaine abuse, unspecified Additional Source Comments INFORMATION SOURCE (unrecogn ized section and content) DATE CREATED AUTHOR AUTHOR'S ORGANIZ ATION 06/19/2019 [facility] DATE CREATED AUTHOR AUTHOR'S ORGANIZ ATION 12/14/2019 [facility] DATE CREATED AUTHOR AUTHOR'S ORGANIZ ATION 02/12/2020 [facility] DATE CREATED AUTHOR AUTHOR'S ORGANIZ ATION 04/22/2020 [facility] DATE CREATED AUTHOR AUTHOR'S ORGANIZ ATION 10/29/2021 [facility] DATE CREATED AUTHOR AUTHOR'S ORGANIZ ATION 03/12/2023 [facility] DATE CREATED AUTHOR AUTHOR'S ORGANIZ ATION 11/06/2023 [facility] DATE CREATED AUTHOR AUTHOR'S ORGANIZ ATION 11/08/2023 [facility] Reason for Visit (unrecogniz ed section and content) FOR RECORDS PERTAINING TO PATIENTS WHO ARE OR HAVE BEEN ENROLLED IN A CHEMICAL DEPENDENCY/SUBSTANCEABUSE PROGRAM, SOME INFORMATION MAY BE OMITTED. This clinical summary was aggregated from multiple sources. Caution should be exercised in using it in the provision of clinical care. This summary normalizes information from multiple sources, and as a consequence, information in this document may materially change the coding, format and clinical context of patient data. In addition, data may be omitted in some cases. CLINICAL DECISIONS SHOULD BE BASED ON THE PRIMARY CLINICAL RECORDS. [facility]. provides no warranty or guarantee of the accuracy or completeness of information in this document.
--- NOTE | 2023-11-10 19:10 | RAD_ITS ---
STUDY: XR Foot Min 3 Views CLINICAL: Female, 68 years old. trauma TECHNIQUE: XR Foot Min 3 ViewsLEFT COMPARISON: None. FINDINGS: There is a plantar calcaneal spur. Normal visualized subtalar, talonavicular, calcaneocuboid, tarsal and tarsometatarsal articulations. Normal metatarsi. Normal metatarsophalangeal joint of the great toe. Normal tibial and fibular sesamoid bones. Normal interphalangeal joint of the great toe. Normal phalanges of the great toe. Normal second through fifth metatarsophalangeal joints. Fracture through the distal portion of the fourth proximal phalanx. The soft tissue structures are unremarkable. RAD/Foot min 3 Views IMPRESSION: Fracture through the distal portion of the fourth proximal phalanx. Electronically Signed: Jb Lei MD at 19:33 EST ,
[2023-11-10] MEDS: Oxycodone/Apap 5/325 Tablet PO (23:28)
== END 2023-11-10 23:35 | disposition home or self-care (01) ==
PROVIDERS: Emergency Provider Emergency Medicine; PCP Internal Medicine; Visit Provider Emergency Medicine
DX: S92.512A Displaced fracture of proximal phalanx of left lesser toe(s), initial encounter for closed fracture (principal); J44.9 Chronic obstructive pulmonary disease, unspecified; Z87.891 Personal history of nicotine dependence; W18.40XA Slipping, tripping and stumbling without falling, unspecified, initial encounter; Y92.009 Unspecified place in unspecified non-institutional (private) residence as the place of occurrence of the external cause; I10 Essential (primary) hypertension; Z79.82 Long term (current) use of aspirin; Z79.899 Other long term (current) drug therapy; Z79.51 Long term (current) use of inhaled steroids; Z86.718 Personal history of other venous thrombosis and embolism; Z79.01 Long term (current) use of anticoagulants
CPT/HCPCS: 73630; 99282

== ENCOUNTER 2023-11-21 11:23 | Emergency (ER) | payer MEDICARE, MEDICAID, SELFPAY ==
[2023-11-21 11:24] VITALS: BP 181/119; PULSE 89; RESP 14; TEMP 36.2; O2SAT 100
[2023-11-21 11:32] VITALS: BMI 34.0
--- NOTE | 2023-11-21 11:43 | CT_ITS ---
STUDY: CT ABDOMEN AND PELVIS WITHOUT CONTRAST REASON FOR EXAM: Female, 68 years old. Left flank pain RADIATION DOSAGE (If Supplied By Facility): CTDIvol = ( 16.80 ) mGy, DLP = ( 835.21 ) mGycm TECHNIQUE: Transaxial images were obtained from the dome of the diaphragm to the symphysis pubis without oral contrast, and without intravenous contrast. Sagittal and coronal images were reconstructed. Individualized dose optimization techniques were used for this CT. COMPARISON: None. FINDINGS: Increased markings in the posterior aspect of the right middle lobe abutting the fissure. Mild scarring at the lung bases. The visualized portions of the heart are within normal limits. Calcified granuloma in the upper aspect of the right lobe of the liver. Normal gallbladder and extrahepatic biliary system. Normal spleen. Normal pancreas. Normal bilateral adrenal glands. Normal right kidney. Normal left kidney. There is a small hiatal hernia. Normal small intestine. There are multiple colonic diverticula consistent with diverticulosis. The appendix is visualized and appears normal. There is diffuse atherosclerotic calcification of the abdominal aorta, without a demonstrated aneurysm. There is evidence of a intraluminal stenting in the distal abdominal aorta and both common iliac arteries. Normal inferior vena cava. Normal retroperitoneum. Normal urinary bladder. There is a small umbilical hernia containing fat. Normal osseous structures. CT/Abdomen/Pelvis without Cont IMPRESSION: Calcified granuloma in the right lobe of the liver. Small umbilical hernia containing fat. Prior stenting of the distal abdominal aorta and common iliac arteries bilaterally. No evidence of a urinary tract obstruction. Electronically Signed: Anthony Perez MD at 12:45 EST ,
--- NOTE | 2023-11-21 11:44 | EX.ED.DYSGE1 ---
HPI History of Present Illness Chief Complaint: Flank Pain Informant: patient Onset/Context/Timing Onset: Yesterday Narrative Narrative: Patient presents with left flank pain that started yesterday morning. She is rolling in the bed having difficult time staying still secondary to pain. She states she tried taking Mobic at home without improvement. No nausea or vomiting. [facility] Medical History Alcohol abuse Chronic hepatitis C without hepatic coma Cocaine abuse COPD (chronic obstructive pulmonary disease) DVT (deep venous thrombosis) Euthyroid sick syndrome H/O cocaine abuse H/O ETOH abuse HTN (hypertension) Lumbar herniated disc Pinched nerve in neck Presence of stent in artery Smoker Thyroid disorder Home Medications albuterol sulfate 90 mcg/actuation aerosol inhaler 2 puff IH Q4H PRN PRN Wheezing 08/26/20 [History Last Taken 08/26/20] aspirin 81 mg chewable tablet 81 mg PO DAILY BLOOD CLOT 08/26/20 [History Last Taken 09/12/20] lisinopril 10 mg tablet 20 mg PO DAILY bp 08/26/20 [History Last Taken 09/12/20] tizanidine 2 mg capsule 2 mg PO Q8 PRN Muscle Spasm 08/26/20 [History Last Taken 08/26/20] atorvastatin 40 mg tablet 40 mg PO DAILY 02/07/21 [History Last Taken Unknown] furosemide 20 mg tablet 20 mg PO DAILY 10/17/22 [History Last Taken Unknown] potassium chloride 10 mEq capsule,extended release 10 meq PO DAILY 10/17/22 [History Last Taken Unknown] budesonide 160 mcg-glycopyr 9 mcg-formot 4.8 mcg/actuation HFA inhaler (Breztri Aerosphere) 2 inh inhalation BID 02/08/23 [History Last Taken Unknown] gabapentin 300 mg capsule 300 mg PO TID nerve pain 02/08/23 [History Last Taken Unknown] ipratropium 0.5 mg-albuterol 3 mg (2.5 mg base)/3 mL nebulization soln 3 ml inhalation TID 02/08/23 [History Last Taken Unknown] meloxicam 15 mg tablet 15 mg PO DAILY 02/08/23 [History Last Taken Unknown] oxybutynin chloride 10 mg tablet,extended release 24 hr 10 mg PO DAILY 02/08/23 [History Last Taken Unknown] diclofenac sodium 1 % topical gel (Voltaren Arthritis Pain) 2 g topical BID PRN pain 02/15/23 [History Last Taken Unknown] gabapentin 100 mg capsule 400 mg PO QHS 08/05/23 [History Last Taken Unknown] omeprazole 40 mg capsule,delayed release 40 mg PO DAILY 08/05/23 [History Last Taken Unknown] acetaminophen 500 mg tablet 1,000 mg (2 x 500 mg) PO Q8 14 days #84 tabs 08/12/23 [Rx Last Taken Unknown] enoxaparin 40 mg/0.4 mL subcutaneous syringe (Lovenox) 40 mg (0.4 mL) subcut DAILY 14 days #5.6 mL 08/12/23 [Rx Last Taken Unknown] oxycodone 5 mg tablet 10 mg (2 x 5 mg) PO Q4H PRN PRN Pain Score 6-10 7 days #42 tabs 08/12/23 [Rx Last Taken Unknown] polyethylene glycol 3350 17 gram oral powder packet 17 g PO DAILY 30 days #30 ea 08/12/23 [Rx Last Taken Unknown] sennosides 8.6 mg-docusate sodium 50 mg tablet (Stool Softener-Stimulant Laxative) 2 tab PO BID 30 days #120 tabs 08/12/23 [Rx Last Taken Unknown] oxycodone 5 mg tablet 5 mg PO Q6H PRN pain 3 days #10 tabs 11/21/23 [Rx Last Taken Unknown] Allergy/AdvReac Type Severity Reaction Status Date / Time No Known Allergies Allergy Verified 11/21/23 11:26 Family History Mother Hypertension Other Alcoholism Surgical History H/O vascular surgery History of rotator cuff surgery Stenosis of artery of left lower extremity Social History household members: none Smoking Status: Former smoker how long ago did patient quit smoking: January 2022 alcohol intake: former substance use type: former substance user Date of last use: 03/2020 and crack/cocaine caffeine: Yes Type: carbonated beverages and coffee ROS ROS ED Constitutional Constitutional ED: Denies chills or fever(s) Eyes Eyes: Denies discharge from eye(s) ENT ENT ED: Denies discharge from eye(s), rhinorrhea or sore throat Cardiovascular Cardiovascular: Denies chest pain or palpitations Respiratory/Chest Respiratory/Chest: Denies cough or dyspnea Gastrointestinal Gastrointestinal: Reports abdominal pain; Denies nausea or vomiting Genitourinary Genitourinary ED: Denies dysuria Musculoskeletal Musculoskeletal: Reports back pain; Denies extremity pain Integumentary Denies Abrasions or rash Neurologic Neurologic: Denies headache(s) or weakness Psychiatric Psychiatric: Reports anxiety; Denies depression Allergic/Immunologic Allergic/Immunologic ED: Denies lip swelling or urticaria EXAM Physical Exam Const Vital Signs: 11/21/23 11:24 11/21/23 13:23 11/21/23 15:00 Temperature 97.1 F L Temperature Source Temporal Pulse Rate 89 75 72 Respiratory Rate 14 19 H 16 Blood Pressure 181/119 H 157/120 H 117/96 H Blood Pressure Mean 139 132 103 Pulse Ox 100 99 100 Oxygen Delivery Method Nasal Cannula Nasal Cannula Nasal Cannula Oxygen Flow Rate (L/min) 3 2 2 11/21/23 16:54 Temperature Temperature Source Pulse Rate 83 Respiratory Rate 17 Blood Pressure 124/82 H Blood Pressure Mean 96 Pulse Ox 99 Oxygen Delivery Method Nasal Cannula Oxygen Flow Rate (L/min) 2 Positive obese Nutritional Appearance: obese HEENT Reports moist mucous membranes Eyes EOMs intact bilaterally Chest Wall inspection of chest normal and palpation of chest normal Resp normal respiratory effort and clear to auscultation bilaterally Cardio regular rate and regular rhythm GI non-tender Palpation: soft Extremity normal to inspection Neuro oriented x3 Psych Mood & Affect: anxious MDM MDM MDM Narrative Medical decision making narrative: IV line established. Patient given morphine, Toradol, Zofran, and IV fluids. Labwork obtained to evaluate for leukocytosis, anemia, and electrolyte derangement. Urinalysis obtained to evaluate for infection/hematuria. CT flank obtained to evaluate for potential renal stone. History & Record Review Discussion w/independent historian: Patient Lab Data Attestation: I reviewed the patient's lab results. Labs: Laboratory Results - last 24 hr 11/21/23 11/21/23 11/21/23 12:05 12:05 12:50 WBC Cancelled 7.6 Corrected WBC Cancelled RBC Cancelled 5.61 H Hgb Cancelled 15.8 H Hct Cancelled 49.6 H MCV Cancelled 88.4 MCH Cancelled 28.2 MCHC Cancelled 31.9 L RDW Std Deviation Cancelled 43.2 RDW Coeff of Oleg Cancelled 13.3 Plt Count Cancelled 196 MPV Cancelled 10.5 Immature Gran % (Auto) Cancelled 0.300 Neut % (Auto) Cancelled 64.6 Lymph % (Auto) Cancelled 26.8 [place] % (Auto) Cancelled 7.3 Eos % (Auto) Cancelled 0.5 Baso % (Auto) Cancelled 0.5 Absolute Neuts (auto) Cancelled 4.9 Absolute Lymphs (auto) Cancelled 2.03 Total Counted Cancelled Neutrophils % (Manual) Cancelled Band Neutrophils % Cancelled Lymphocytes % (Manual) Cancelled Monocytes % (Manual) Cancelled Eosinophils % (Manual) Cancelled Basophils % (Manual) Cancelled Metamyelocytes % Cancelled Myelocytes % Cancelled Promyelocytes % Cancelled Blast Cells % Cancelled Plasma Cell % (Manual) Cancelled Other Cells % Cancelled Nucleated RBC % Cancelled 0 Nucleated RBCs/100 WBC Cancelled Differential Comment Cancelled Diff Path Review Cancelled Hypersegmented Neuts Cancelled Atypical Lymphocytes Cancelled Reactive Lymphocytes Cancelled Smudge Cells Cancelled Toxic Granulation Cancelled Toxic Vacuolation Cancelled Dohle Bodies Cancelled [place] Cancelled Platelet Estimate Cancelled Plt Morphology Comment Cancelled RBC Morphology Cancelled Cancelled Polychromasia Cancelled Hypochromasia Cancelled Poikilocytosis Cancelled Basophilic Stippling Cancelled Anisocytosis Cancelled Microcytosis Cancelled Macrocytosis Cancelled Spherocytes Cancelled Sickle Cells Cancelled Target Cells Cancelled Tear Drop Cells Cancelled Ovalocytes Cancelled Stomatocytes Cancelled [place] Bodies Cancelled Vinny Cells Cancelled Bite Cells Cancelled Crenated Cell Cancelled Acanthocytes (Spur) Cancelled Rouleaux Cancelled Schistocytes Cancelled Sodium Cancelled 138 Potassium Cancelled 4.0 Chloride Cancelled 112 H Carbon Dioxide Cancelled 23.0 Anion Gap Cancelled 3 L BUN Cancelled 19 H Creatinine Cancelled 0.98 Estim Creat Clear Calc Cancelled 64.92 Est GFR (MDRD) Af Amer Cancelled 73 Est GFR (MDRD) Non-Af Cancelled 60 BUN/Creatinine Ratio Cancelled 19.4 Glucose Cancelled 97 Calcium Cancelled 9.7 Total Bilirubin Cancelled 0.70 Direct Bilirubin Cancelled 0.14 AST Cancelled 17 ALT Cancelled 26 Alkaline Phosphatase Cancelled 88 Troponin I High Sens Total Protein Cancelled 7.4 Albumin Cancelled 3.7 Globulin Cancelled 3.7 Urine Color Urine Clarity Urine pH Ur Specific [place] Urine Protein Urine Glucose (UA) Urine Ketones Urine Occult Blood Urine Nitrite Urine Bilirubin Urine Urobilinogen Ur Leukocyte Esterase Urine RBC Urine WBC Ur Squamous Epith Cells Urine Bacteria Urine Mucus 11/21/23 11/21/23 11/21/23 13:35 14:04 16:23 WBC Corrected WBC RBC Hgb Hct MCV MCH MCHC RDW Std Deviation RDW Coeff of Oleg Plt Count MPV Immature Gran % (Auto) Neut % (Auto) Lymph % (Auto) [place] % (Auto) Eos % (Auto) Baso % (Auto) Absolute Neuts (auto) Absolute Lymphs (auto) Total Counted Neutrophils % (Manual) Band Neutrophils % Lymphocytes % (Manual) Monocytes % (Manual) Eosinophils % (Manual) Basophils % (Manual) Metamyelocytes % Myelocytes % Promyelocytes % Blast Cells % Plasma Cell % (Manual) Other Cells % Nucleated RBC % Nucleated RBCs/100 WBC Differential Comment Diff Path Review Hypersegmented Neuts Atypical Lymphocytes Reactive Lymphocytes Smudge Cells Toxic Granulation Toxic Vacuolation Dohle Bodies [place] Rods Platelet Estimate Plt Morphology Comment RBC Morphology Polychromasia Hypochromasia Poikilocytosis Basophilic Stippling Anisocytosis Microcytosis Macrocytosis Spherocytes Sickle Cells Target Cells Tear Drop Cells Ovalocytes Stomatocytes [place] Bodies Vinny Cells Bite Cells Crenated Cell Acanthocytes (Spur) Rouleaux Schistocytes Sodium Potassium Chloride Carbon Dioxide Anion Gap BUN Creatinine Estim Creat Clear Calc Est GFR (MDRD) Af Amer Est GFR (MDRD) Non-Af BUN/Creatinine Ratio Glucose Calcium Total Bilirubin Direct Bilirubin AST ALT Alkaline Phosphatase Troponin I High Sens 67 H 64 H Total Protein Albumin Globulin Urine Color Yellow Urine Clarity Clear Urine pH 6.0 Ur Specific [place] 1.020 Urine Protein 30 H Urine Glucose (UA) Normal Urine Ketones 15 H Urine Occult Blood Negative Urine Nitrite Negative Urine Bilirubin Negative Urine Urobilinogen Normal Ur Leukocyte Esterase 25 H Urine RBC 0 SEEN Urine WBC 0-5 SEEN Ur Squamous Epith Cells 0 SEEN Urine Bacteria 0 SEEN Urine Mucus 0 SEEN Radiography Diagnostic Testing: Clinical Impression(s) from Imaging Studies Abdomen/Pelvis CT 11/21/23 11:43 IMPRESSION: Calcified granuloma in the right lobe of the liver. Small umbilical hernia containing fat. Prior stenting of the distal abdominal aorta and common iliac arteries bilaterally. No evidence of a urinary tract obstruction. Electronically Signed: Anthony Perez MD at 12:45 EST , Chest X-Ray 11/21/23 13:19 IMPRESSION: Hyperinflation. Stable increased markings at the lung bases suggestive of bibasilar scarring. Electronically Signed: Anthony Perez MD at 14:30 EST , Treatment and Re-Evaluation :: CBC was normal white count 7.6 with a hemoglobin concentrated at 15.8. Chemistry studies unremarkable with normal renal function, creatinine 0.98. Glucose is 97. LFTs are unremarkable. Urinalysis reveals no evidence of infection and no evidence of hematuria. CT scan of the flank is obtained that reveals calcified granuloma in the right lobe of the liver. There is a small umbilical hernia containing fat. Prior stenting to the distal abdominal aorta and common iliac arteries are noted with no acute abnormalities. No evidence of ureteral tract stone. As notified by nursing staff that the patient was now complaining of pain radiating up into her chest. At that time EKG, chest x-ray, and troponin is added. EKG is sinus rhythm at 75 bpm with nonspecific lateral T wave flattening. This is unchanged compared to her prior EKGs. Portable chest x-ray per my interpretation was chronic changes with no focal infiltrate. Radiology interpretation reviewed and agrees. Initial troponin is 67 with a repeat 2-hour troponin of 64. Patient was admitted to the hospital in July secondary to chest pain. Troponin values were in the 60s at that time. She had a stress test that was normal. After receiving Dilaudid patient was quite comfortable. I does appear patient is comfortable and watching TV frequently, but will then start complaining of pain and rolling [id number] in the bed. I did review her OARRS report. She has been getting analgesics [place] She states that she had a rotator cuff surgery on July 30 and just found out in late September that it did not hold. They are currently scheduling her for another shoulder surgery. Based on the most recent meds prescribed, patient does not have any opiates at home at this time. She will be given a short prescription for oxycodone which she has done well with in the past. When she is complaining of recurrent pain at this time she continues to complain of pain to the left flank. I believe this is likely musculoskeletal in nature. Given her recent cardiac workup with flat troponins I do not feel she needs repeat admission for further cardiac investigation. Discharge Plan Triage Chief Complaint: Flank Pain ED Provider: Debbie Delgadillo Dx/Rx/DC Orders Clinical Impression: Left flank pain, Chest pain Instructions: ED Chest Pain, Uncertain Cause, ED Flank Pain, Uncertain Cause Prescriptions: New oxycodone 5 mg tablet 5 mg PO Q6H PRN (Reason: pain) 3 Days Qty: 10 0RF No Action furosemide 20 mg tablet 20 mg PO DAILY potassium chloride 10 mEq capsule, extended release 10 meq PO DAILY Breztri Aerosphere 160-9-4.8 mcg/actuation HFA aerosol inhaler 2 inh inhalation BID ipratropium-albuterol 0.5 mg-3 mg(2.5 mg base)/3 mL solution for nebulization 3 ml inhalation TID meloxicam 15 mg tablet 15 mg PO DAILY oxybutynin chloride 10 mg tablet extended release 24hr 10 mg PO DAILY diclofenac sodium [Voltaren Arthritis Pain] 1 % gel 2 g topical BID PRN (Reason: pain) Rx Instructions: apply to single elbow, wrist or hand; for hand includes palm/fingers/back of hand lisinopril 10 MG tablet 20 mg PO DAILY aspirin 81 MG tablet,chewable 81 mg PO DAILY Patient Comments: Take 1 tablet by mouth once daily. albuterol sulfate 18 GM HFA aerosol inhaler 2 puff IH Q4H PRN PRN (Reason: Wheezing) Patient Comments: Inhale 2 Puffs as instructed every 4 hours as needed. tizanidine 2 MG capsule 2 mg PO Q8 PRN (Reason: Muscle Spasm) gabapentin 300 mg capsule 300 mg PO TID atorvastatin 40 mg tablet 40 mg PO DAILY Patient Comments: Take 1 tablet by mouth once daily. gabapentin 100 mg capsule 400 mg PO QHS Patient Comments: TAKE 1 CAPSULE BY MOUTH DAILY AT BEDTIME FOR 90 DAYS. TAKE IN ADDITION TO 300MG DOSE TO EQUAL 400MG BEFORE BED omeprazole 40 mg capsule,delayed release(DR/EC) 40 mg PO DAILY Patient Comments: Take 1 capsule by mouth once daily. polyethylene glycol 3350 17 gram Powder In Packet 17 g PO DAILY 30 Days Qty: 30 0RF sennosides-docusate sodium [Stool Softener-Stimulant Laxat] 8.6-50 mg Tablet 2 tab PO BID 30 Days Qty: 120 0RF acetaminophen 500 mg Tablet 1,000 mg PO Q8 14 Days Qty: 84 0RF oxycodone 5 mg Tablet 10 mg PO Q4H PRN PRN (Reason: Pain Score 6-10) 7 Days Qty: 42 0RF enoxaparin [Lovenox] 40 mg/0.4 mL syringe 40 mg subcut DAILY 14 Days Qty: 5.6 0RF Primary Care Provider: Leonie Castillo Referrals: Leonie Castillo MD [Primary Care Provider] - 1 Week Disposition Disposition: Home, Self Care
[2023-11-21] MEDS: Morphine 4 MG/ML Syringe IV (12:13)
[2023-11-21] MEDS: Ketorolac 15 MG/ML Vial IV (12:13)
[2023-11-21] MEDS: Ondansetron 4 MG/2 ML Vial IV (12:13)
--- OUTSIDE RECORDS SUMMARY | 2023-11-21 12:23 | XMS RPT_ITS | CCD ---
Author Name Unknown Address [address] [place] [address] Organization [facility] Care Team Providers Care Medical Records Specialist Name Role Phone Myke Burdick Attending Unavail [...] Admitting Unavailable GANTA, MOLLY Primary Care Unavailable DIDI [...] Primary Care Unavailable STACEY LUZ Attending Unavailable OLDER ELI Referring Unavailable GANTA, MOLLY Primary Care Unavailable CHANDANA CONN Attending Unavailable GANTA, MOLLY Primary Care Unavailable GANTA, MOLLY Referring Unavailable GANTA, MOLLY Primary Care Unavailable GANTA, MOLLY Referring Unavailable GANTA, MOLLY Referring Unavailable GANTA, MOLLY Primary Care Unavailable GANTA, MOLLY Primary Care Unavailable GANTA, MOLLY Referring Unavailable ELI BRAGG Referring Unavailable OBED BARTHA Attending Unavailable GANTA, [...] Referring Unavailable GANTA, MOLLY Primary Care Unavailable ELI [...] Primary Care Unavailable GANTA, MOLLY Referring Unavailable OLDERELI Referring Unavailable GANTA, MOLLY Primary Care Unavailable GANTA, MOLLY Referring Unavailable GANTA, MOLLY Primary Care Unavailable ELI BRAGG Attending Unavailable GANTA, MOLLY Primary Care Unavailable ARMANI GUTIERREZ Attending Unavailable GANTA, MOLLY Primary Care Unavailable GANTA, MOLLY Primary Care Unavailable GANTA, MOLLY Referring Unavailable MATHEUS FERNANDEZ Attending Unavailable GANTA, MOLLY Primary Care Unavailable DOMINICK PAYTON Attending Unavailab le GANTA, MOLLY Primary Care Unavailable KHUSHBOO HARMAN Referring Unavailable GANTA, MOLLY Primary Care Unavailable KHUSHBOO HARMAN Attending Unavailable KHSUHBOO HARMAN Referring Unavailable GANTA, MOLLY Primary Care Unavailable KATHLEEN GOINS Referring Unavailable GANTA, MOLLY Primary Care Unavailable GANTA, MOLLY Primary Care Unavailable GANTA, MOLLY Referring Unavailable CHRIS CRAVEN Attending Unavailable GANTA, MOLLY Primary Care Unavailable ELI BRAGG Referring Unavailable GANTA, MOLLY Primary Care Unavailable KHUSHBOO HARMAN Referring Unavailable GANTA, MOLLY Primary Care Unavailable ELI BRAGG Attending Unavailable GANTA, MOLLY Primary Care Unavailable GANTA, MOLLY Attending Unavailable GANTA, MOLLY Primary Care Unavailable MIRTHA SAMANO Referring Unavailable GANTA, MOLLY Primary Care Unavailable MIRTHA SAMANO Attending Unavailable GANTA, MOLLY Primary Care Unavailable OLDER, ELI Attending Unavailable GANTA, MOLLY Primary Care Unavailable JOHN STOVALL Referring Unavailable STOVALLJOHN Attending Unavailable GANTA, MOLLY Primary Care Unavailable MAXWELL, MATTHEW Referring Unavailable GANTA, MOLLY Primary Care Unavailable OLDERELI Attending Unavailable GANTA, MOLLY Primary Care Unavailable JOHN STOVALL Referring Unavailable GANTA, MOLLY Primary Care Unavailable GHAZALADILIAKHUSHBOO M Referring Unavailable GANTA, MOLLY Primary Care Unavailable GHAZALKHUSHBOO M Attending Unavailable GANTA, MOLLY Primary Care Unavailable GHAZAL, KHUSHBOO M Referring Unavailable GANTA, MOLLY Primary Care Unavailable GHAZAL, KHUSHBOO M Referring Unavailable GANTA, MOLLY Primary Care Unavailable MAXWELL, MATTHEW Attending Unavailable GANTA, MOLLY Primary Care Unavailable MAXWELL, MATTHEW Attending Unavailable GANTA, MOLLY Primary Care Unavailable MAXWELL, MATTHEW Attending Unavailable GANTA, MOLLY Primary Care Unavailable DOMINICK PAYTON Attending Unavailab le GANTA, MOLLY Primary Care Unavailable JANETTDOMINICK Attending Unavailab le GANTA, MOLLY Primary Care Unavailable DOMINICK PAYTON Referring Unavailab le GANTA, MOLLY Primary Care Unavailable GANTA, MOLLY Primary Care Unavailable DOMINICK PAYTON Attending Unavailab le GANTA, MOLLY Primary Care Unavailable DOMINICK PAYTON Referring Unavailab le GANTA, MOLLY Primary Care Unavailable Allergies Allergy Classification Reported Allergen(s) Allergy Type Date of Onset Reaction(s) Facility (1 source) traMADol Drug Allergy 05-22-2016 Nausea Only [facility] [place], [place] Medications Current Medications Medication Drug [...] [Chronic left shoulder pain] Onset: 11-01-2020 Chronic Peripheral and visceral atherosclerosis (2 sources) Peripheral vascular disease, unspecified; Translations: [PAD (peripheral artery disease) ([facility])] Onset: 09-21-2020 Chronic Phlebitis; thrombophlebitis and thromboembolism [...] Respiratory failure; insufficiency; arrest (adult) (3 sources) Dependence on supplemental oxygen; Translations: [Chronic respiratory failure with hypoxia] Onset: 07-19-2022 Chronic Spondylosis; intervertebral disc disorders; [...] current use of drug therapy; Translations: [Other director long term care (current) drug therapy] Onset: 04-17-2016 05-22-2016 Past or Other Problems Problem Classification Problem Date Documented Date Episodic/Chronic Diabetes mellitus without complication (2 sources) [...] 05-22-2016 Episodic Other aftercare (1 source) Other director long term care (current) drug therapy; Translations: [Medication management] Onset: [...] (shortness of breath)] Onset: 10-17-2020 Episodic Other nervous system disorders (1 source) Other acute postprocedural pain; Translations: [Acute post-operative pain] Onset: 08-15-2023 Episodic Other non-traumatic joint disorders (3 sources) Pain in left shoulder; Translations: [Chronic left shoulder pain] Onset: 11-01-2020 Episodic Other screening for suspected conditions (not mental disorders or infectious disease) (4 sources) Encounter for screening for malignant neoplasm of respiratory organs; Translations: [Encounter for screening for osteoporosis] Onset: 12-27-2022 Episodic Residual codes; unclassified (1 source) Asymptomatic menopausal state; Translations: [Asymptomatic menopause] Onset: 05-17-2023 Episodic Residual codes; unclassified (1 source) Tobacco use; Translations: [Tobacco abuse] Onset: 06-26-2021 Episodic Screening and history of mental health [...] 04-13-2020 18:51-0400 Body Temperature 98.4 [degF] [facility] [place] 04-13-2020 18:51-0400 BP Diastolic 84 mm[Hg] [facility] , [place] 04-13-2020 18:51-0400 BP Systolic 145 mm[Hg] Tommie [facility] , [place] 04-13-2020 18:51-0400 Pulse (Heart Rate) 79 /min Tommie [facility] 04-13-2020 18:51-0400 Pulse Oximetry 95 % [facility] [place] 04-13-2020 18:51-0400 Respiratory Rate 18 /min [facility] [place] 04-13-2020 09:30-0400 BMI (Body Mass Index) 16.94 kg/m2 [facility] [place] 04-13-2020 09:30-0400 Body weight 47.6 kg [facility] [place] [facility] [place] Encounters Encounter Date Encounter Type Care Provider Facility Start: 11-06-2023 End: 11-07-2023 ambulatory ELI BRAGG Facility:[facility] Start: 11-05-2023 End: 11-05-2023 ambulatory DOMINICK PAYTON Facility:[facility] Start: 10-25-2023 End: 10-25-2023 ambulatory MATTHEW MAXWELL Facility:[facility] Start: 10-04-2023 End: 10-04-2023 ambulatory CHANDANA FABIEN Facility:[facility] Start: 10-01-2023 End: 10-01-2023 ambulatory MATTHEW MAXWELL Facility:[facility] Start: 09-27-2023 End: 09-27-2023 ambulatory CHANDANA FABIEN Facility:[facility] Start: 09-19-2023 End: 09-19-2023 ambulatory MOLLY GANTA Facility:[facility] Start: 09-16-2023 End: 09-16-2023 ambulatory CHANDANA FABIEN Facility:[facility] Start: 09-13-2023 End: 09-13-2023 ambulatory CHANDANA FABIEN Facility:[facility] Start: 09-11-2023 End: 09-11-2023 ambulatory CHANDANA FABIEN Facility:[facility] Start: 09-10-2023 End: 09-10-2023 ambulatory MATTHEW MAXWELL Facility:[facility] Start: 09-04-2023 End: 09-04-2023 ambulatory MATHEUS FERNANDEZ Facility:[facility] Start: 09-03-2023 End: 09-03-2023 ambulatory CHANDANAValerie CONN Facility:[facility] Start: 08-15-2023 End: 08-15-2023 ambulatory MATTHEW MAXWELL Facility:[facility] Start: 07-22-2023 End: 07-23-2023 ambulatory DOMINICK PAYTON Facility:[facility] Start: 07-17-2023 End: 07-17-2023 ambulatory KHUSHBOO HARMAN Facility:[facility] Start: 07-11-2023 End: 07-11-2023 ambulatory JOHN STOVALL Facility:[facility] Start: 07-10-2023 End: 07-10-2023 ambulatory ELI OLDER Facility:[facility] Start: 07-02-2023 End: 07-02-2023 ambulatory KATHLEEN HALLLE Facility:[facility] Start: 07-02-2023 End: 07-03-2023 ambulatory MOLLY GANTA Facility:[facility] Start: 06-28-2023 End: 06-28-2023 ambulatory KATHLEEN HALLLE Facility:[facility] Start: 05-28-2023 End: 05-28-2023 ambulatory MYKE HARPSTER Facility:[facility] Start: 05-27-2023 End: 05-28-2023 ambulatory ELI OLDER Facility:[facility] Start: 05-22-2023 End: 05-23-2023 ambulatory MOLLY GANTA Facility:[facility] Start: 05-17-2023 End: 05-18-2023 ambulatory ARMANI GUTIERREZ Facility:[facility] Start: 05-02-2023 End: 05-03-2023 ambulatory ELI OLDER Facility:[facility] Start: 05-01-2023 End: 05-01-2023 ambulatory MYKE DAYANATER Facility:[facility] Start: 04-30-2023 End: 04-30-2023 ambulatory DOMINICK PAYTON Facility:[facility] Start: 04-15-2023 End: 04-15-2023 ambulatory JOHN STOVALL Facility:[facility] Start: 03-18-2023 End: 03-18-2023 ambulatory KHUSHBOO HARMAN Facility:[facility] Start: 03-06-2023 End: 03-06-2023 ambulatory UNKNOWN PROVIDER Facility:[facility] Start: 02-28-2023 End: 02-28-2023 ambulatory ELI OLDER Facility:[facility] Start: 02-22-2023 End: 02-23-2023 ambulatory ELI OLDER Facility:[facility] Start: 02-20-2023 End: 02-21-2023 ambulatory MOLLY PETERSON Facility:[facility] Start: 02-19-2023 Encounter for other preprocedural examination MATTHEW ARREOLA [facility] Start: 02-11-2023 End: 02-11-2023 ambulatory KHUSHBOO HARMAN Facility:[facility] Start: 02-05-2023 End: 02-06-2023 ambulatory ELI OLDER Facility:[facility] Start: 02-05-2023 Encounter for other preprocedural examination DIDI CARVAJAL [facility] Start: 02-04-2023 End: 02-04-2023 ambulatory ELI OLDER Facility:[facility] Start: 01-30-2023 End: 01-31-2023 ambulatory MOLLY GANTA Facility:[facility] Start: 01-21-2023 End: 01-22-2023 ambulatory MOLLY GANTA Facility:[facility] Start: 01-21-2023 Encounter for other preprocedural examination MOLLY GANTA [facility] Start: 01-11-2023 End: 01-11-2023 ambulatory MOLLY GANTA Facility:[facility] Start: 01-10-2023 End: 01-10-2023 ambulatory MOLLY GANTA Facility:[facility] Start: 12-27-2022 End: 12-28-2022 ambulatory ELI OLDER Facility:[facility] Start: 12-27-2022 Encounter for other preprocedural examination ELI OLDER [facility] Start: 12-21-2022 End: 12-21-2022 ambulatory DIDI CARVAJAL Facility:[facility] Start: 12-19-2022 End: 12-19-2022 ambulatory KHUSHBOO HARMAN Facility:[facility] Start: 12-14-2022 End: 12-14-2022 ambulatory DOMINICK PAYTON Facility:[facility] Start: 12-11-2022 ambulatory DOMINICK PAYTON F acility:[facility] Start: 12-04-2022 End: 12-04-2022 ambulatory DOMINICK PAYTON Facility:[facility] Start: 11-29-2022 ambulatory CHRIS Traore lity:[facility] Start: 11-22-2022 End: 11-23-2022 ambulatory ELI OLDER Facility:[facility] Start: 11-09-2022 End: 11-09-2022 ambulatory MIRTHA SAMANO Facility:[facility] Start: 04-13-2020 End: 04-13-2020 Emergency department patient visit Tommie Odonnell Work Phone: [facility] Emergency Dept Procedures Date Procedure Procedure Detail Performing Clinician Start: 04-30-2023 Follow-up visit Follow Up PRASANTH PAYTON Start: 04-13-2020 COVID-19 Ben D Charu kim Work Phone: Start: 04-13-2020 Assay of ethanol Ben D Juan Work Phone: Start: 04-13-2020 Blood count complete auto&auto difrntl wbc Ben Franky Juan Work Phone: Start: 04-13-2020 Comprehensive metabolic panel Ben Franky [facility] Work Phone: Start: 04-13-2020 Creatine kinase total A sirena Franky Juan Work Phone: Start: 04-13-2020 Drug screen class list a Ben Franky Juan Work Phone: Start: 04-13-2020 Urnls dip stick/tabl et rgnt auto w/o microscopy Ben Franky Juan Work Phone: Start: 12-12-2019 Blood count complete [...] Njx dx/ther sbst int rlmnr crv/thrc w/img najman Myke Burdick Plan of Treatment Date Care Activity Detail Author Start: 05-31-2020 Influenza vaccination Flu vaccine (# 1) [facility], [place] Start: 01-19-2006 Screening for malign ant neoplasm of breast Breast cancer screen [place], [place] Start: 01-19-2006 Screening for malign ant neoplasm of colon Colon cancer screen colonoscopy [place], [place] Start: 01-19-2006 Shingles Vaccine (1 of 2) Shingles Vaccine (1 of 2) [place], [place] Start: 1996 Lipid panel Lipid screen [place], [place] Start: 01-19-1977 Screening for malign ant neoplasm of cervix Cervical cancer screen [place], [place] Start: 01-19-1975 DTaP/Tdap/Td vaccine (1 - Tdap) DTaP/Tdap/Td vaccine (1 - Tdap) [place], [place] Start: 01-19-1971 HIV screening HIV screen [place], [place] Start: 1956 Creatinine measurement Creatinine mo nitoring [place], [place] Start: 1956 Hepatitis C screening Hepatitis C sc reen [place], [place] Start: 1956 Potassium monitoring Potassium monit oring [place], [place] Payers Date Payer Category Payer Unknown [id number] 2017 Medicaid [id number] 2017 Medicare [id number] 2016 Unknown [facility] MEDICA[facility] [id number] 2016-Present [phone] CLAIMS DEPARTMENT [address] [place] [address] [id number] 1956 Unknown [id number] 1956 Unknown [id number] 1956 Unknown [id number] 1956 Unknown [id number] Medicare [id number] Social History Date Type Detail Facility Start: 04-13-2020 Tobacco smoking stat us NHIS Current every day smoker [place], [place] History of tobacco use Cigarette Smoker [facility] [place], [place] Start: 04-13-2020 Cigarettes smoked current (pack per day) - Reported [place], [place] Start: 04-13-2020 Tobacco use and exposure Never used [place], [place] Start: 04-13-2020 Alcohol intake Current drinke r of alcohol (finding) [place], [place] Sex Assigned At Not on file [place], [place] Exposure to SARS-CoV -2 (event) Not sure [place], [place] Clinical Notes 11-09-2022 to 11-06-2023 Note Date & Type Note Facility 11-06-[address] [facility] 11-05-2023 Note HNO ID: [id number] Author: EDUARDO LITTLE LPN Service: ? Author Type: LICENSED NURSE Type: Progress Notes Filed: 11/13/2023 13:13 Note Text: Injection prepared per Dr. Payton's order and handed directly to him. Injection site: left shoulder Eduardo Little LPN [facility] 11-05-2023 Note HNO ID: [id number] Author: DOMINICK PAYTON MD Service: ? Author Type: Physician Type: Progress Notes Filed: 11/13/2023 13:13 Note Text: PAIN EVALUATION 11/05/2023 1317 Pain Level: 8 Description: Throbbing;Tingling;Sore Frequency: Intermittent Encounter Diagnosis ICD-10-CM 1. 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 She continues to have severe painful weakness of her left shoulder. IMAGING: I personally reviewed the MRI of the left shoulder in the office today, and I am in agreement with the radiologist's interpretation with the following modifications: None Status post rotator cuff repair with recurrent supraspinatus tendon tearing with an associated displaced bone anchor along the torn anterior supraspinatus. No muscle atrophy. Background rotator cuff tendinosis. Intact subscapularis tendon status post repair. Moderate to severe glenohumeral osteoarthritis. Status post biceps tenodesis with long head biceps tendinosis. PLAN: Today we discussed the current condition of her shoulder with MRI indicating failure of her rotator cuff repair as well as advancement of her osteoarthritis of the glenohumeral joint. We discussed that there is an option and that reverse total shoulder arthroplasty would be the most appropriate treatment for this condition. She is not sure whether she would like to proceed with this and request more information about the procedure today. A packet of information was given to her. She would like to continue with medical management of her pain at this time. She requests that she be treated with opioid medication while awaiting her decision about surgery but I declined this today and know that a pain management provider would be more appropriate for this type of treatment. Although I cannot provide her with long-term treatment using opioid medication I did offer her a corticosteroid injection today and she would like to proceed with this. This was administered in the office and she will follow-up on an as-needed basis to consider continued treatment with corticosteroid or to consider surgical options in the future. Large Joint Arthro/Inj: L shoulder joint 11/05/2023 1:47 PM The procedure site was prepped in the usual sterile fashion. Site: L shoulder joint Medications: 80 mg triamcinolone acetonide 40 mg/mL Anesthetics: 4 mL bupivacaine (PF) 0.25 % (2.5 mg/mL) Outcome: Tolerated well, no immediate complications Post-injection instructions were reviewed with the patient and the patient voiced understanding of these instructions. Dominick Payton MD Shoulder AND Elbow Surgeon Department of Orthopaedic Surgery [facility] 11-05-2023 Note HNO ID: [id number] Author: DIOGENES MACIEL Tech Service: ? Author Type: Director Data Processing Type: Progress Notes Filed: 11/13/2023 13:13 Note Text: REVIEW OF SYSTEMS: GENERAL: Well developed, well nourished. No acute distress PAIN: Negative for pain, history of chronic pain or current treatment for chronic pain conditions CARDIOVASCULAR: Negative for chest pain, leg swelling and palpations. MSK: Negative for joint swelling SKIN: Rash yes NEURO: Numbness/tingling of extremties ENDOCRINE: Negative for diabetic associated symptoms HEMATOLOGY: Clots yes [facility] 10-25-[address] [facility] 10-04-[address] [facility] 10-01-2023 Note HNO ID: [id number] Author: Matthew Arreola PA-C Service: ? Author Type: Physician Legal Administrative Assistant Type: Progress Notes Filed: 10/01/2023 12:48 PM [...] results with Dr. Payton. Matthew Arreola PA-C [facility] 09-27-[address] [facility] 09-19-[address] [facility] 09-16-[address] [facility] 09-13-[address] [facility] 09-11-[address] [facility] 09-10-2023 Note HNO ID: [id number] Author: Matthew Arreola PA-C Service: ? Author Type: Physician Legal Administrative Assistant Type: Progress Notes Filed: 09/10/2023 10:55 AM [...] weeks for repeat examination. Matthew Arreola PA-C [facility] 09-04-[address] [facility] 09-03-[address] [facility] 08-15-2023 Note HNO ID: [id number] Author: Matthew Arreola PA-C Service: ? Author Type: Physician Legal Administrative Assistant Type: Progress Notes Filed: 08/15/2023 3:30 PM [...] pain medication. Has been residing at a retirement facility and is not happy with this. [...] the shoulder. She can discharge from the retirement facility when they deem her safe to do so. Return to clinic in 4 weeks for repeat examination. Matthew Arreola PA-C [facility] 08-02-2023 Note HNO ID: [id number] Author: Millie Barnes RN Service: Care Management Author Type: Registered Nurse Type: Care Mgt Progress Note Filed: 08/02/2023 3:07 PM Note Text: CARE MANAGEMENT DISCHARGE NOTE SERVICE DATE: August 02, 2023 SERVICE TIME: 3:05 PM Admission Date: 07/30/2023 LOS: 1 day Discharge Arrangement Discharge Arrangement: Penitentiary Facility Was an expedited discharge program used?: No Services Arranged Medical Services: Other: See Comment Provider Name: [facility] Caregiver Assessment Caregiver is ready, willing and able to meet the patient's needs as recommended by the inter-professional team: No Caregiver needed Transportation Arrangements Transportation Arrangements: Ambulance Transportation Agency and Phone #:: [phone] ( [facility] ) [phone] / [phone] Date of Trip: 08/02/23 Time of Trip: 1200 Type of Service: BLS Non-emergency Is Patient Medicaid Pending?: No Was transportation financial coverage discussed with family?: Patient Trade Clerk Location: [facility] Destination: [facility] Financial Care Management Responsibility: None Additional Information: Discharge orders in place, pt has precert for [facility], facility able to accept pt today, pt agreeable to cot transportation at discharge, pt aware of potential oop cost, cot transportation set up for noon today through [employer]; pt notified of the following information and agreeable to plan; pt ready for discharge from care management standpoint SIGNATURE: Millie Barnes RN PATIENT NAME: Dianne Alves DATE: August 02, 2023 TIME: 3:05 PM CONTACT #: [id number] [facility] 08-02-2023 Note HNO ID: [id number] Author: Pankaj Lagos MD Service: Orthopaedic Surgery [...] - PGY 3 5:59 AM 08/02/2023 Pager #[phone] [facility] 08-01-2023 Note HNO ID: [id number] Author: Karen Massey Service: Care Management Author Type: ? Type: Care Mgt Progress Note Filed: 08/01/2023 4:04 PM Note Text: [facility] ([facility]) PRECERT NOTE [facility] approved Penitentiary Facility for [facility]. Precert approved through 08/03. SIGNATURE: Karen Massey DATE: August 01, 2023 TIME: 4:04 PM [facility] 08-01-2023 Note HNO ID: [id number] Author: Millie Barnes RN Service: Care Management Author Type: Registered Nurse Type: Care Mgt Progress Note Filed: 08/01/2023 3:44 PM Note Text: -- Attestation signed by Doron Nicole MD at 08/01/2023 5:07 PM Agree with the above statement. No further changes. Patient in need of additional assistance in the form of retirement. Doron Nicole MD Orthopaedic Surgery 08/01/2023 5:07 [...] 01, 2023 TIME: 3:43 PM PAGER/CONTACT #: [phone] [facility] 08-01-2023 Note HNO ID: [id number] Author: Millie Barnes RN Service: Care Management Author Type: Registered Nurse Type: Care Mgt Initial Assessment Filed: 08/01/2023 3:51 PM Note Text: CARE MANAGEMENT: ASSESSMENT AND DISCHARGE PLAN SERVICE DATE: August 01, 2023 SERVICE TIME: 2:27 PM PCP: Molly Peterson MD Primary Contact: Extended Emergency Contact Information Primary Emergency Contact: Felicitas Glez Relation: Friend Admission Status: Inpatient Insurance Provider: [facility] Discharge Planning requested by: Per Department Practice Potential Transition Plans Penitentiary Facility/Intermediate Care Facility Advance Directives Current Advance Directive: None Account Manager [employer] Attempted to Assist with AD Completion: Yes [...] Current Post-Acute Service(s) Provider: receives O2 from [facility] Discharge Planning Patient Goal(s): General wellness, Ambulate a little better [place] of Choice Explained: [place] of Choice Given: Yes Level of Care Discussed: Penitentiary Facility Are you interested in bedside delivery [...] , home O2 (2-3L at baseline, from [facility]) Support: pt lives at home alone Pharmacy: [facility] PCP: Molly Peterson Spoke with pt for initial assessment , discussed PT/OT recs for SNF, pt agreeable to SNF list, SNF list provided, [facility] ; also agreeable to sending [facility]errals to [facility], [facility] , and [facility]; referrals sent Addendum: [facility] not able to accept at this time, only accepting facility is [facility], pt agreeable to starting precert for [facility] SIGNATURE: Millie Barnes RN PATIENT NAME: Dianne Alves DATE: August 01, 2023 TIME: 2:27 PM CONTACT #: [id number] [facility] 08-01-2023 Note HNO ID: [id number] Author: Pankaj Lagos MD Service: Orthopaedic Surgery [...] - PGY 3 6:01 AM 08/01/2023 Pager #[phone] [facility] 07-31-2023 Note HNO ID: [id number] Author: Pankaj Lagos MD Service: Orthopaedic Surgery [...] - PGY 3 6:02 AM 07/31/2023 Pager #[phone] [facility] 07-30-2023 Note HNO ID: [id number] Author: Kristi Hoskins, CHARMAINE Service: Nursing Author Type: Registered Nurse Type: Nursing Progress Note Filed: 07/30/2023 5:30 PM Note Text: Dr. Sam at the bedside and gave 100 mcg phenylephrine IV. [facility] 07-30-2023 Note HNO ID: [id number] Author: Kristi Hoskins RN Service: Nursing Author Type: Registered Nurse Type: Nursing Progress Note Filed: 07/30/2023 5:28 PM Note Text: Dr. Sam aware of systolic blood pressures= 60's/70's. States he will come to the bedside. [facility] 07-30-2023 Note HNO ID: [id number] Author: Adia Mckeon APRN.CITY COUNCILMAN Service: ? Author Type: Nurse Agriscience Technology Instructor Type: Anesthesia Procedure Notes Filed: 07/30/2023 3:47 PM Note Text: ANESTHESIOLOGY PROCEDURE NOTE Airway General Information Procedure Start Time/Medication Administration: 07/30/2023 3:34 PM Patient location during procedure: OR Timeout Performed Pre-procedure: timeout performed Consent Obtained: Yes Patient identity confirmed: arm band Staffing Anesthesiologist: Delisa Howell MD CITY COUNCILMAN: Adia Mckeon APRN.CITY COUNCILMAN SRNA: Drake Currie SRNA Performed by: BRENT Indications and Patient Condition Indications for airway management: anesthesia and airway protection Preoxygenated: yes anesthesia circuit Patient position: sniffing Method: asleep Cricoid Pressure: No Manual In-Line Stabilization: No Difficult Mask: No Airway Accessory: oral airway Final Airway Details Final airway type: endotracheal airway Final Endotracheal Airway: ETT Cuffed: yes Successful intubation technique: video laryngoscopy Devices used: [place] Endotracheal tube insertion site: oral Blade: Hernesto Blade size: #3 ETT size (mm): 7.0 Measured from: lips Measurement (cm): 22 Placement verified by: chest auscultation and capnometry Cormack-Lehane Classification: grade I - full view of glottis Number of attempts at approach: 1 Failed airway: no Unrecognized esophageal intubation: no Airway not difficult SIGNATURE: Adia Mckeon APRN.CITY COUNCILMAN PATIENT NAME: Dianne Alves DATE: July 30, 2023 TIME: 3:47 PM CSN: [id number] [facility] 07-23-2023 Note HNO ID: [id number] Author: Courtney Cline APRN.CNP Service: General Surgery Author Type: Nurse Practitioner Type: Progress Notes Filed: 07/23/2023 10:44 AM Note Text: -- Summary: anesthesia -- Reviewed progress note from PAT with Dr. Siddhartha Hong in anesthesia. Will evaluate patient DOS. OK to proceed at this time. [facility] 07-22-2023 Note HNO ID: [id number] Author: Addie Pratt APRN.CNP Service: ? Author Type: Nurse Practitioner Type: Progress Notes Filed: 07/22/2023 12:49 PM Note Text: -- Summary: PAT -- [employer] please review with anesthesia for a heads up, patient is having shoulder surgery under general anesthesia with interscalene block, history significant for COPD and chronic use of O2, 3L today at PAT, pulse ox 92%, up to 96% after [...] Instructed patient to adhere with instruction from estate and trust tax principal and use inhalers as prescibed COPD (chronic [...] perioperatively Chronic hepatitis C without hepatic coma (HCC) No medication. Followed by PCP [facility] 07-17-[address] [facility] 07-17-[address] [facility] 07-11-[address] [facility] 07-11-[address] [facility] 07-10-[address] [facility] 07-02-[address] [facility] 07-02-2023 Note HNO ID: [id number] Author: Kathleen Goins DO Service: ? Author Type: Physician Type: Progress Notes Filed: 07/30/2023 5:12 PM Note Text: This office note has been dictated. Kathleen Goins DO [facility] 05-28-2023 Note HNO ID: [id number] Author: Myke Chong APRN.[place] Service: ? Author Type: Nurse Practitioner Type: Progress Notes Filed: 05/28/2023 5:06 PM Note Text: opened in error [facility] 05-28-[address] [facility] 05-27-[address] [facility] 05-17-[address] [facility] 05-02-[address] [facility] 05-01-[address] [facility] 04-30-2023 Note HNO ID: [id number] Author: Dominick Payton MD Service: ? Author [...] AND Elbow Surgeon Department of Orthopaedic Surgery [facility] 04-30-2023 Note HNO ID: [id number] Author: Diogenes Maciel Tech Service: ? Author Type: Director Data Processing Type: Progress Notes Filed: 04/30/2023 2:03 PM [...] for diabetic associated symptoms HEMATOLOGY: Clots yes [facility] 04-15-[address] [facility] 04-15-[address] [facility] 04-15-[address] [facility] 03-18-[address] [facility] 03-18-[address] [facility] 03-18-[address] [facility] 03-18-[address] [facility] 03-06-2023 Note HNO ID: [id number] Author: Ben Walters MD Service: ? Author [...] March 06, 2023 TIME: 2:47 PM CSN: [id number] [facility] 02-28-[address] [facility] 02-22-[address] [facility] 02-20-2023 Note HNO ID: [id number] Author: Destiny Rivera APRN.EXHIBITS MANAGER Service: ? Author Type: Nurse Practitioner Type: Progress Notes Filed: 02/20/2023 1:05 PM Note Text: -- Summary: PAT -- After completion of PAT visit, surgery was canceled by surgeon's office, per open case documentation. [facility] 02-11-[address] [facility] 02-05-[address] [facility] 02-04-[address] [facility] 01-21-[address] [facility] 01-10-[address] [facility] 12-27-[address] [facility] 12-24-[address] [facility] 12-21-[address] [facility] 12-19-[address] [facility] 12-19-[address] [facility] 12-19-[address] [facility] 12-19-[address] [facility] 12-11-2022 Note HNO ID: [id number] Author: Felicitas Whatley RT(R) Service: Radiology Author [...] IV DATA: Not applicable SIGNED BY: Nino VILA(R) December 11, 2022 2:46 PM [facility] 12-04-2022 Note HNO ID: [id number] Author: Dominick Payton MD Service: ? Author [...] Back injury COPD (chronic obstructive pulmonary disease) (HCC) 09/18 CT chest c/w emphysema, history c/w chronic bronchitis. 12/12/20 FEV1 70% predicted. Depression DVT (deep venous thrombosis) (HCC) Hepatitis C Hypertension Left shoulder pain PAD (peripheral artery disease) (HCC) Pinched nerve in neck Substance abuse (HCC) PAST SURGICAL HISTORY: PAST SURGICAL HISTORY Procedure [...] 8 hours as needed for pain/muscle spasms. sqznjxzias-nvwedwlx-xiykokfcht (BREZTRI) 160-9-4.8 mcg/actuation HFA aerosol inhaler Inhale [...] Motion Left A (more content not included)... [facility] 11-22-[address] [facility] 11-09-[address] [facility] 11-09-[address] [facility] 11-09-[address] 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 Unfortunately there are no beds at [facility]. Please follow-up with the resources provided to you for local help. * Attachments The following attachments cannot be sent through Care Everywhere. * Drug Overdose: Cocaine (Burkin[place]) documented in this encounter Assessments Diagnosis Cocaine abuse (HCC) Cocaine abuse, unspecified Additional Source Comments INFORMATION SOURCE (unrecogn ized section and content) DATE CREATED AUTHOR AUTHOR'S ORGANIZ ATION 06/19/2019 [employer] DATE CREATED AUTHOR AUTHOR'S ORGANIZ ATION 12/14/2019 [facility] DATE CREATED AUTHOR AUTHOR'S ORGANIZ ATION 02/12/2020 [facility] DATE CREATED AUTHOR AUTHOR'S ORGANIZ ATION 04/22/2020 [facility] DATE CREATED AUTHOR AUTHOR'S ORGANIZ ATION 10/29/2021 [employer] DATE CREATED AUTHOR AUTHOR'S ORGANIZ ATION 03/12/2023 [facility] DATE CREATED AUTHOR AUTHOR'S ORGANIZ ATION 11/08/2023 [facility] DATE CREATED AUTHOR AUTHOR'S ORGANIZ ATION 11/15/2023 [facility] Reason for Visit (unrecogniz ed [...] BE BASED ON THE PRIMARY CLINICAL RECORDS. [employer] [facility]. provides no warranty or guarantee of the accuracy or completeness of information in this document.
--- NOTE | 2023-11-21 12:25 | NURSING ---
CHEMISTRIES AND CBCD TOO SHORT, LAB TO REDRAW
[2023-11-21] MEDS: 0.9% Normal Saline (1000mL) 1,000 ML 150 ML IV (12:30)
[2023-11-21 13:06] LABS: Absolute Lymphocyte Count 2.03 X10^3/uL (0.83-4.51); Absolute Neutrophil Count 4.9 X10^3/uL (2.0-7.7); Basophil# 0.04 X10^3/uL; Basophil% 0.5 % (0-1); Eosinophil# 0.04 X10^3/uL; Eosinophils% 0.5 % (0-5); Hematocrit 49.6 % (37-47); Hemoglobin 15.8 g/dL (12.0-15.0); Lymphocyte # 2.03 X10^3/ul (0.83-4.51); Lymphocyte % 26.8 % (19-41); Mean Corp Hgb Conc 31.9 g/dL (32-36); Mean Corpuscular Hgb 28.2 pg (27.0-32.0); Mean Corpuscular Volume 88.4 fL (81-99); Mean Platelet Vol. 10.5 fl (6.2-12.0); Monocyte# 0.55 X10^3/uL; Monocyte% 7.3 % (0-10); NRBC Flagged by Analyzer 0 % (0-5); Neutrophil # 4.89 X10^3/uL (2.7-7.7); Neutrophil % 64.6 % (47-70); POSITIVE COUNT YES; Platelet Count 196 K/mm3 (150-450); RBC Distribution Width CV 13.3 % (11.6-14.6); RBC Distribution Width SD 43.2 fl (35.1-43.9); Red Blood Count 5.61 M/mm3 (4.2-5.4); White Blood Count 7.6 K/mm3 (4.4-11.0)
[2023-11-21 13:19] LABS: AST(SGOT) 17 U/L (15-37); Alanine Aminotransfer ALT/SGPT 26 U/L (13-56); Albumin, Serum 3.7 g/dL (3.2-5.0); Alkaline Phosphatase 88 U/L (45-117); Anion Gap 3 (5-15); BUN 19 mg/dL (7-18); BUN/Creat Ratio 19.4 RATIO (10-20); Bilirubin, Direct 0.14 mg/dL (0.00-0.30); Calcium,Total 9.7 mg/dL (8.5-10.1); Chloride 112 mmol/L (98-107); Creatinine, Serum 0.98 mg/dL (0.55-1.02); EST Glomerular Filtration Rate 60 mL/min (>60); Est Glom Filt Rate - Afr Amer 73 mL/min (>60); Estimated Creatinine Clearance 64.92 ml/min; Globulin 3.7 g/dL (2.2-4.2); Glucose 97 mg/dL (74-106); Protein, Total 7.4 g/dL (6.4-8.2); Sodium Level 138 mmol/L (136-145)
--- NOTE | 2023-11-21 13:19 | EKG12_ITS ---
Test Reason : Blood Pressure : / mmHG Vent. Rate : 075 BPM Atrial Rate : 075 BPM P-R Int : 130 ms QRS Dur : 070 ms QT Int : 328 ms P-R-T Axes : 080 075 082 degrees QTc Int : 366 ms Normal sinus rhythm Nonspecific ST and T wave abnormality Abnormal ECG Confirmed by ANN CORTÉS, SONIDO ([id number]), editor dictionary JUSTYN TURPIN ([id number]) on 11/22/2023 10:39:35 AM Referred By: Confirmed By:SONIDO JUAREZ MD
--- NOTE | 2023-11-21 13:19 | RAD_ITS ---
STUDY: X-RAY CHEST REASON FOR EXAM: Female, 68 years old. cp TECHNIQUE: Single AP portable view of the chest. COMPARISON: Comparison is made with prior study dated August 05, 2023. FINDINGS: EKG electrodes are seen. Hyperinflation. Stable increased markings at the lung bases suggestive of a bibasilar scarring. There is no demonstrated pleural abnormality. Normal size heart. Normal mediastinum and tea. Normal visualized pulmonary arteries. There is atherosclerotic calcification of the aortic arch with tortuosity. There are diffuse degenerative changes of the visualized thoracic spine. Normal visualized ribs, clavicles, and shoulders. There is no demonstrated abnormality of the visualized soft tissue structures of the upper abdomen. RAD/Chest 1 View (Portable) IMPRESSION: Hyperinflation. Stable increased markings at the lung bases suggestive of bibasilar scarring. Electronically Signed: Anthony Perez MD at 14:30 EST ,
[2023-11-21 13:23] VITALS: BP 157/120; PULSE 75; RESP 19; O2SAT 99
[2023-11-21] MEDS: HYDROmorphone 0.5 MG/0.5 ML SYRINGE IV (13:25)
[2023-11-21 13:46] LABS: Bacteria 0 SEEN /hpf (None Seen); Mucous, Urine 0 SEEN /hpf (<or=2+); Red Blood Cells-Urine 0 SEEN /hpf (0-5); Squamous Epithelial Cells - UA 0 SEEN /hpf (5-10)
[2023-11-21 13:47] LABS: Color, Urine Yellow (Yellow); Glucose, Dipstick Normal (Normal); Ketone-Dipstick 15 mg/dl (Negative); Leukocyte Esterase-Dipstick 25 /ul (Negative); Nitrite-Dipstick Negative (Negative); Occult Blood-Urine Negative /ul (Negative); Protein-Dipstick 30 mg/dl (Negative); Urine Bilirubin Dipstick Negative (Negative); Urine Clarity Clear (Clear); Urine Urobilinogen Normal (Normal)
[2023-11-21] MEDS: Pantoprazole Sodium 40 MG in 0.9% Normal Saline (100mL MB+) 100 ML 330 MG IV (13:59)
[2023-11-21 14:12] LABS: White Blood Cells 0-5 SEEN /hpf (0-5)
[2023-11-21 15:00] VITALS: BP 117/96; PULSE 72; RESP 16; O2SAT 100
[2023-11-21 15:30] LABS: Troponin-I HS 67 pg/mL (3.0-54.0)
[2023-11-21 16:54] VITALS: BP 124/82; PULSE 83; RESP 17; O2SAT 99
[2023-11-21 17:11] LABS: Troponin-I HS 64 pg/mL (3.0-54.0)
[2023-11-21] MEDS: oxyCODONE 5 MG Tablet PO (17:25)
[2023-11-21 18:05] VITALS: BP 124/82; PULSE 83; RESP 17; TEMP 36.2; O2SAT 99
== END 2023-11-21 18:06 | disposition home or self-care (01) ==
PROVIDERS: Emergency Provider Emergency Medicine; PCP Internal Medicine; Visit Provider Emergency Medicine
DX: R10.9 Unspecified abdominal pain (principal); J44.9 Chronic obstructive pulmonary disease, unspecified; Z87.891 Personal history of nicotine dependence; R07.9 Chest pain, unspecified; Z95.5 Presence of coronary angioplasty implant and graft; Z79.82 Long term (current) use of aspirin; Z79.51 Long term (current) use of inhaled steroids; I10 Essential (primary) hypertension; Z79.899 Other long term (current) drug therapy
CPT/HCPCS: 36415; 71045; 74176; 80048; 80076; 81001; 84484; 85025; 93005; 96361; 96365; 96375; 99282; J7030; A4216; J2405

== ENCOUNTER 2024-04-29 09:01 | Day surgery (SDC) | payer MEDICARE, MEDICAID, SELFPAY ==
[2024-04-29] VITALS (9 sets, daily range): BP systolic 89–161; BP diastolic 45–80; PULSE 77–101; RESP 16–19; TEMP 36.2–36.4; O2SAT 19–100; BMI 33.4
--- NOTE | 2024-04-29 | COLBX_PTH ---
PATIENT: INDIRA HOLLINGSWORTH LOC: EN U#:[id number] AGE/SX: 69/F ROOM: RE04/29/[address]: Dr. Stef Bennett DO : 1955 BED: DIS: 04/29/2024 SPEC #: [id number] RECD: 04/29/24 13:10 STATUS: GREGORY DARYA #: [id number] TRISTIAN: 04/29/24 00:[address]: Stef Bennett DEPT: SURGICAL PATHOLOGY RECD BY: Nino Brandt ENTERED: 04/29/24 13:15 SP TYPE: COLON BX MARIANGEL DR: MD ELI Hendrix, SUPERVISOR CELLARS-C Tissues: A - COLON BIOPSY B - Transverse colon C - Sigmoid colon biopsy Procedures: Surgery Specimen Level IV HEADER OPERATION: Colonoscopy, polypectomy, clip, biopsy PRE-OP DIAGNOSIS: Encounter for screening for malignant neoplasm of colon TISSUE SUBMITTED: A- Hepatic flexure polyp, B- Transverse colon polyp biopsy, C- Sigmoid colon polyp MICROSCOPIC DIAGNOSIS A. Colonic polyp at hepatic flexure, biopsy: Fragments of tubular adenoma. B. Transverse colon polyp, biopsy: Fragments of tubular adenoma. C. Sigmoid colon polyp, biopsy: Tubular adenoma. / 04/30/2024 MICROSCOPIC DESCRIPTION Slides are reviewed. GROSS DESCRIPTION A. Received in fixative is one container labeled with the patient's name and designated Hepatic flexure polyp. The specimen consists of multiple irregular fragments of light rasmussen soft tissue that range in size from 0.2 to 1.5cm. The specimen is submitted in its entirety one cassette. B. Received in fixative is one container labeled with the patient's name and designated Transverse colon polyp. The specimen consists of multiple irregular fragments of light rasmussen soft tissue that in aggregate measure 0.7 x 0.5 x 0.1 cm. The specimen is totally submitted in one cassette. C. Received in fixative is one container labeled with the patient's name and designated Sigmoid colon polyp. The specimen consists of a polypoid fragment of rasmussen tissue measuring 1.0 x 1.0 x 0.6cm. The specimen is bisected and totally submitted in one cassette. AM/ 04/29/2024 TC:5 AM/ 04/29/2024 TC: CPT:45899h6
--- NOTE | 2024-04-29 09:13 | PCM.HP.STD ---
[facility] - General General Date of Admission: 04/29/24 Date of Service: 04/29/24 Chief Complaint: Screening colonoscopy HPI Narrative INDIRA HOLLINGSWORTH, is a 69 F who presents today for screening colonoscopy. She has a past medical history of hypertension, chronic hepatitis C, COPD, hyperlipidemia, peripheral artery disease on Aspirin. She has never had a colonoscopy in the past. She does not have any abdominal pain, cramping, chest pain or shortness of breath. [facility] Medical History (Updated 04/27/24 @ 10:49 by Becca Delgado) Wears glasses Post-menopausal Gastric reflux Depression Walker as ambulation aid Arthritis Bladder disease High cholesterol Hx of fracture of wrist Back pain Syncope Loss of consciousness Shortness of breath on exertion Leg cramps History of edema History of echocardiogram History of stress test Cardiology follow-up encounter Dependence on supplemental oxygen Euthyroid sick syndrome Thyroid disorder Chronic hepatitis C without hepatic coma Smoker COPD (chronic obstructive pulmonary disease) Presence of stent in artery H/O cocaine abuse H/O ETOH abuse DVT (deep venous thrombosis) Lumbar herniated disc HTN (hypertension) Alcohol abuse Cocaine abuse Home Medications ?Medication ?Instructions ?Recorded ?Last Taken ?Type albuterol sulfate 90 mcg/actuation 2 puff IH Q4H PRN PRN Wheezing 08/26/20 08/26/20 History aerosol inhaler aspirin 81 mg chewable tablet 81 mg PO DAILY BLOOD CLOT 08/26/20 09/12/20 History lisinopril 10 mg tablet 30 mg PO DAILY bp 08/26/20 09/12/20 History tizanidine 2 mg capsule 4 mg PO Q8 PRN Muscle Spasm 08/26/20 08/26/20 History atorvastatin 40 mg tablet 40 mg PO DAILY 02/07/21 Unknown History furosemide 20 mg tablet 20 mg PO DAILY 10/17/22 Unknown History potassium chloride 10 mEq 10 meq PO DAILY 10/17/22 Unknown History capsule,extended release budesonide 160 mcg-glycopyr 9 2 inh inhalation BID 02/08/23 Unknown History mcg-formot 4.8 mcg/actuation HFA inhaler (Breztri Aerosphere) gabapentin 300 mg capsule 300 mg PO TID nerve pain 02/08/23 Unknown History ipratropium 0.5 mg-albuterol 3 mg 3 ml inhalation TID PRN shortness 02/08/23 Unknown History (2.5 mg base)/3 mL nebulization of breath or wheezing soln diclofenac sodium 1 % topical gel 2 g topical BID PRN pain 02/15/23 Unknown History (Voltaren Arthritis Pain) gabapentin 100 mg capsule 400 mg PO QHS 08/05/23 Unknown History acetaminophen 500 mg tablet 1,000 mg PO Q8 PRN pain 04/27/24 Unknown History omeprazole 40 mg capsule,delayed 40 mg PO DAILY 04/27/24 Unknown History release Allergy/AdvReac Type Severity Reaction Status Date / Time No Known Allergies Allergy Verified 04/27/24 10:15 Family History Mother Hypertension Other Alcoholism Surgical History (Updated 04/27/24 @ 10:35 by Becca Delgado) History of rotator cuff surgery H/O vascular surgery Stenosis of artery of left lower extremity Social History (Updated 04/14/24 @ 09:39 by Maylin Walters) household members: none housing: apartment current occupational status: retired Smoking Status: Former smoker how long ago did patient quit smoking: January 2022 alcohol intake: former substance use type: former substance user Date of last use: 03/2020 and crack/cocaine caffeine: Yes Type: carbonated beverages and coffee ROS ROS Narrative Admission Review of Systems: CONSTITUTIONAL: No weight loss, fever, chills, + weakness or fatigue. HEENT: Eyes: No visual loss, blurred vision, double vision or yellow sclerae. Ears, Nose, Throat: No hearing loss, sneezing, congestion, runny nose or sore throat. SKIN: No rash or itching, lesions, wounds. CARDIOVASCULAR: + chest pain. No palpitations, edema, orthopnea, syncopal events. RESPIRATORY: + Chronic shortness of breath. No cough or sputum, wheezing, hemoptysis. GASTROINTESTINAL: No anorexia, nausea, vomiting or diarrhea, abdominal pain, melena, BRBPR. GENITOURINARY: No dysuria, frequency, urgency or retention. NEUROLOGICAL: No headache, dizziness, syncope, paralysis, ataxia, numbness or tingling in the extremities, focal weakness, change in bowel or bladder control, seizure. MUSCULOSKELETAL: + muscle, back pain, joint pain or stiffness. HEMATOLOGIC: No anemia, bleeding or bruising. LYMPHATICS: No enlarged nodes. No history of splenectomy. PSYCHIATRIC: + history of depression or anxiety. ENDOCRINOLOGIC: No reports of sweating, cold or heat intolerance. No polyuria or polydipsia. ALLERGIES: No history of asthma, hives, eczema or rhinitis. Physical Exam Const alert, oriented x3 and no apparent distress Constitutional Narrative: Obese, sitting comfortably in bed, conversing normally, no acute distress. General Appearance: cooperative and comfortable HEENT normocephalic, head/scalp atraumatic, hearing grossly normal bilaterally, nasal mucous membranes and turbinates normal and moist oral mucous membranes Eyes PERRL, EOMs intact bilaterally and conjunctivae normal Neck full ROM, no lymphadenopathy and supple Lymph Lymphatic: no lymphadenopathy noted Chest inspection of chest normal Resp normal respiratory effort, normal air movement, no use of accessory muscles and clear to auscultation bilaterally Cardio regular rate, regular rhythm, no murmurs and peripheral pulses 2+ throughout GI normal to inspection, nondistended, normoactive bowel sounds, soft to palpation, non-tender and non-distended Back/Spine normal ROM Extremity normal to inspection and no pedal edema Extremity Narrative: Left shoulder in sling. Skin no rashes or lesions noted Psych mental status grossly normal Assessment & Plan Assessment/Plan (1) Encounter for screening for malignant neoplasm of colon: PLAN: She was explained alternatives, risk, benefits including outstanding bleeding, infection, sepsis, perforation, need for emergent urgent . She will have an ASA of 3.
--- NOTE | 2024-04-29 09:31 | PCM.PRE.AN2 ---
ASA Classification* ASA Classification ASA Classification: 3 Assessment & Plan Anesthesia* Anesthesia Assessment Anesthesia Assessment: Discussed sedation and/or anesthesia options, risks, benefits, and alternatives with patient/parents/legal guardian/POA. Questions invited. The patient/parents/legal guardian/POA seems to understand and agrees to proceed with anesthesia plan. Reviewed the physical assessment, medical history, allergy history and patient home medications list prior to surgery/procedure/anesthetic and documented any changes. Performed airway and anesthesia risk assessments. Anesthesia Type Anesthesia Type: MAC Anesthesia Focused Assessment* Temperature: 97.6 F Pulse Rate: 101 Blood Pressure: 161/80 Respiratory Rate: 18 Pulse Ox: 100 Airway Assessment Mouth opens: >3 cm Mallampati Score: II Focused Labs Anesthesia Preop lab: CBC WBC 7.6 K/mm3 (4.4-11.0) 11/21/23 12:50 RBC 5.61 M/mm3 (4.2-5.4) H 11/21/23 12:50 Hgb 15.8 g/dL (12.0-15.0) H 11/21/23 12:50 Hct 49.6 % (37-47) H 11/21/23 12:50 Plt Count 196 K/mm3 (150-450) 11/21/23 12:50 CHEMISTRY Potassium 4.0 mmol/L (3.5-5.1) 11/21/23 12:50 Sodium 138 mmol/L (136-145) 11/21/23 12:50 Magnesium 2.6 mg/dL (1.6-2.6) 08/05/23 05:30 BUN 19 mg/dL (7-18) H 11/21/23 12:50 Creatinine 0.98 mg/dL (0.55-1.02) 11/21/23 12:50 Glucose 97 mg/dL (74-106) 11/21/23 12:50 COAG PT 14.2 SECONDS (11.7-14.9) 01/14/23 15:54 Pre-Assessment Diagnosis/Proposed Procedure Planned Operative Procedure(s): CSCOPE OA Anesthesia History 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 When Was Last Pacemaker Check QUESTION #4 FULL TEXT: You/Your Family Experience fever (hyperthermia) with Anesthesia Last Oral Intake Last Oral intake: Last Oral Intake NPO since 05:00 04/29/24 09:22 Meds taken in AM with sips of Yes 04/29/24 09:22 water? Meds patient instructed to SEE MAR 04/29/24 09:22 take am of surgery PONV PONV - divisional merchandising manager: PONV - divisional merchandising manager Female Yes 04/27/24 10:23 HX of Motion Sickness Yes 04/27/24 10:23 HX of N/V After Surgery No 04/27/24 10:23 Non-Smoker Yes 04/27/24 10:23 Duration of Surgery greater No 04/27/24 10:23 than 60 minutes Number of Risk Factors 3 04/27/24 10:23 PONV Score Moderate Risk 04/27/24 10:23 Height & Weight Height & Weight: Anesthesia: Height & Weight Height 5 ft 6 in 04/29/24 09:22 Weight: 93.894 kg 04/29/24 09:22 Body Mass Index (BMI) 33.4 04/29/24 09:22 Respiratory Assessment Respiratory Assessment - divisional merchandising manager: Respiratory Tract Infection Hx - divisional merchandising manager Hx Respiratory Tract Infection No 04/27/24 10:23 STOP Sleep Apnea STOP Sleep Apnea - divisional merchandising manager: STOP Sleep Apnea - divisional merchandising manager Hx Hypertension Yes 04/27/24 10:23 Hx Sleep Apnea No 04/27/24 10:23 CPAP BIPAP Do you snore loudly (louder Yes 04/27/24 10:23 than talking or can be heard Do you often feel tired/ Yes 04/27/24 10:23 fatigued/ sleepy during daytime? Has anyone observed you stop No 04/27/24 10:23 breathing during sleep? STOP Results Positive 04/27/24 10:23 QUESTION #5 FULL TEXT : Do you snore loudly (louder than talking or can be heard through closed doors)? Tobacco Use History Tobacco Use History - divisional merchandising manager: Tobacco Use History - divisional merchandising manager Tobacco Use Cigarettes 02/08/21 02:49 Smoking Status Former smoker 04/27/24 10:23 Hx Tobacco Use No 04/27/24 10:23 Years Smoking Packs Smoked per Day Smoking Cessation Date was Yes - quit smoking within 15 04/27/24 10:23 within the last 15 years years Hx Smoking Cessation Date 04/18/20 04/27/24 10:23 Hx Smoking Cessation No 04/27/24 10:23 Counseling Hematologic Medial History Hematologic Hx - divisional merchandising manager: Hematologic Medical Hx - director informatics Hx of Blood Transfusion No 04/27/24 10:23 Hx of Transfusion in last 3 No 04/27/24 10:23 Months Date of Last Transfusion (if within last 3 months) Ever experience any problems No 04/27/24 10:23 with transfusion(s)? Specify any problems Hx of Preganancy in last 3 No 04/27/24 10:23 Months Nurse Filling Out Transfusion DSCHRIBER 04/27/24 10:23 & Questions: Date: 04/27/24 04/27/24 10:23 Time: 10:26 04/27/24 10:23 Patient unable to answer at this time (ie. confused, unrespo /Reproduction History /Reproductive History - divisional merchandising manager: /Reproductive Hx- divisional merchandising manager Hx Now No 04/27/24 10:23 Gestational Age (in weeks): EDC: Hx Hx Para Hx Section SAB No 04/27/24 10:23 Active Medications Active Medications: Current Medications Generic Name Dose Route Start Last Admin Trade Name Freq PRN Reason Stop Dose Admin Lactated Ringer's 1,000 mls @ 15 mls/hr 04/29/24 09:15 IV .Q48H MULUGETA PFSH Medical History (Updated 04/27/24 @ 10:49 by Becca Delgado) Wears glasses Post-menopausal Gastric reflux Depression Walker as ambulation aid Arthritis Bladder disease High cholesterol Hx of fracture of wrist Back pain Syncope Loss of consciousness Shortness of breath on exertion Leg cramps History of edema History of echocardiogram History of stress test Cardiology follow-up encounter Dependence on supplemental oxygen Euthyroid sick syndrome Thyroid disorder Chronic hepatitis C without hepatic coma Smoker COPD (chronic obstructive pulmonary disease) Presence of stent in artery H/O cocaine abuse H/O ETOH abuse DVT (deep venous thrombosis) Lumbar herniated disc HTN (hypertension) Alcohol abuse Cocaine abuse Home Medications ?Medication ?Instructions ?Recorded ?Last Taken ?Type albuterol sulfate 90 mcg/actuation 2 puff IH Q4H PRN PRN Wheezing 08/26/20 08/26/20 History aerosol inhaler aspirin 81 mg chewable tablet 81 mg PO DAILY BLOOD CLOT 08/26/20 04/26/24 History lisinopril 10 mg tablet 30 mg PO DAILY bp 08/26/20 04/29/24 07:30 History tizanidine 2 mg capsule 4 mg PO Q8 PRN Muscle Spasm 08/26/20 04/29/24 History atorvastatin 40 mg tablet 40 mg PO DAILY 02/07/21 Unknown History furosemide 20 mg tablet 20 mg PO DAILY 10/17/22 Unknown History potassium chloride 10 mEq 10 meq PO DAILY 10/17/22 Unknown History capsule,extended release budesonide 160 mcg-glycopyr 9 2 inh inhalation BID 02/08/23 Unknown History mcg-formot 4.8 mcg/actuation HFA inhaler (Breztri Aerosphere) gabapentin 300 mg capsule 300 mg PO TID nerve pain 02/08/23 Unknown History ipratropium 0.5 mg-albuterol 3 mg 3 ml inhalation TID PRN shortness 02/08/23 Unknown History (2.5 mg base)/3 mL nebulization of breath or wheezing soln diclofenac sodium 1 % topical gel 2 g topical BID PRN pain 02/15/23 Unknown History (Voltaren Arthritis Pain) gabapentin 100 mg capsule 400 mg PO QHS 08/05/23 Unknown History acetaminophen 500 mg tablet 1,000 mg PO Q8 PRN pain 04/27/24 Unknown History omeprazole 40 mg capsule,delayed 40 mg PO DAILY 04/27/24 Unknown History release Allergy/AdvReac Type Severity Reaction Status Date / Time No Known Allergies Allergy Verified 04/29/24 09:20 Family History Mother Hypertension Other Alcoholism Surgical History (Updated 04/27/24 @ 10:35 by Becca Delgado) History of rotator cuff surgery H/O vascular surgery Stenosis of artery of left lower extremity Social History (Updated 07/16/24 @ 09:39 by Maylin Walters) household members: none housing: apartment current occupational status: retired Smoking Status: Former smoker how long ago did patient quit smoking: January 2022 alcohol intake: former substance use type: former substance user Date of last use: 03/2020 and crack/cocaine caffeine: Yes Type: carbonated beverages and coffee Review of Systems (Anesthesia) ROS Narrative System reviewed and no additional complaints, except as documented.
[2024-04-29] MEDS: Lactated Ringers 1,000 ML 15 ML IV (09:36)
--- NOTE | 2024-04-29 11:15 | PCM.POST.ANE ---
Anesthesia: Postop Eval I Current Vital Signs Temperature: 97.2 F Pulse Rate: 80 Blood Pressure: 101/48 Respiratory Rate: 16 Pulse Ox: 98 Oxygen Delivery Method: Room Air Assessment Airway patent: Yes Spontaneous unlabored respirations: Yes Mental status: Asleep nausea: No Vomiting: No Anesthesia Complication: No Fluid Hydration Crystalloid volume administer (ml): 600 Total IV fluid infused: 600 Progress Note Anesthesia document: Postop Eval 1 completed: Yes
--- NOTE | 2024-04-29 11:16 | OP.CCLET_ITS ---
04/29/2024 Leonie Castillo [address] [id number] Re : Colonoscopy procedure for Dianne Alves Dear Dr. Castillo This procedure was performed on Monday, April 29, 2024. My impressions and recommendations are as follows: Impressions : - Diverticulosis in the recto-sigmoid colon and in the sigmoid colon. - Three 1 to 2 mm polyps in the sigmoid colon and at the hepatic flexure, removed with a hot snare. Resected and retrieved. - One 3 mm polyp in the descending colon, removed with a jumbo cold forceps. Resected and retrieved. - The examination was otherwise normal on direct and retroflexion views. Recommendations : - Discharge patient to home. - Resume previous diet. - Continue present medications. - Await pathology results. - Repeat colonoscopy in 1 year for surveillance. My findings are described in the full procedure note, which is enclosed. If I can be of further assistance, please feel free to contact me at . Sincerely, Stef Bennett, 04/29/2024 11:15:46 AM This report has been signed electronically.
--- NOTE | 2024-04-29 11:16 | OP.COLON_ITS ---
Patient Name: Dianne Alves Procedure Date: 04/29/2024 10:24 AM Date of : 1955 Age: 69 Procedure: Colonoscopy Indications: Screening for colorectal malignant neoplasm Providers: Stef Bennett DO Medicines: Monitored Anesthesia Care Patient Profile: This is a 69 year old female. Refer to note in patient chart for documentation of history and physical. Last Colonoscopy: none. The patient's first colonoscopy is today. Complications: No immediate complications. Procedure: Pre-Anesthesia Assessment: - Prior to the procedure, a History and Physical was performed, and patient medications and allergies were reviewed. The patient is competent. The risks and benefits of the procedure and the sedation options and risks were discussed with the patient. All questions were answered and informed consent was obtained. Patient identification and proposed procedure were verified in the pre-procedure area. Mental Status Examination: alert and oriented. Airway Examination: normal oropharyngeal airway and neck mobility. Respiratory Examination: clear to auscultation. CV Examination: normal. Prophylactic Antibiotics: The patient does not require prophylactic antibiotics. Prior Anticoagulants: The patient has taken no anticoagulant or antiplatelet agents. ASA Grade Assessment: II - A patient with mild systemic disease. After reviewing the risks and benefits, the patient was deemed in satisfactory condition to undergo the procedure. The anesthesia plan was to use monitored anesthesia care (MAC). Immediately prior to administration of medications, the patient was re-assessed for adequacy to receive sedatives. The heart rate, respiratory rate, oxygen saturations, blood pressure, adequacy of pulmonary ventilation, and response to care were monitored throughout the procedure. The physical status of the patient was re-assessed after the procedure. After I obtained informed consent, the scope was passed under direct vision. Throughout the procedure, the patient's blood pressure, pulse, and oxygen saturations were monitored continuously. The Colonoscope was introduced through the anus and advanced to the cecum, identified by appendiceal orifice and ileocecal valve. The colonoscopy was performed without difficulty. The patient tolerated the procedure well. The quality of the bowel preparation was adequate. The ileocecal valve, appendiceal orifice, and rectum were photographed. Scope In: 10:42:08 AM Scope Withdrawal Time 0 hours 20 minutes 49 seconds Scope Out: 11:07:26 AM Total Procedure Duration Time 0 hours 25 minutes 18 seconds Findings: The perianal and digital rectal examinations were normal. Multiple small-mouthed diverticula were found in the recto-sigmoid colon and sigmoid colon. Three sessile polyps were found in the sigmoid colon and hepatic flexure. The polyps were 1 to 2 mm in size. These polyps were removed with a hot snare. Resection and retrieval were complete. Verification of patient identification for the specimen was done. Estimated blood loss was minimal. A 3 mm polyp was found in the descending colon. The polyp was sessile. The polyp was removed with a jumbo cold forceps. Resection and retrieval were complete. Verification of patient identification for the specimen was done. Estimated blood loss was minimal. The exam was otherwise without abnormality on direct and retroflexion views. Impression: - Diverticulosis in the recto-sigmoid colon and in the sigmoid colon. - Three 1 to 2 mm polyps in the sigmoid colon and at the hepatic flexure, removed with a hot snare. Resected and retrieved. - One 3 mm polyp in the descending colon, removed with a jumbo cold forceps. Resected and retrieved. - The examination was otherwise normal on direct and retroflexion views. Recommendation: - Discharge patient to home. - Resume previous diet. - Continue present medications. - Await pathology results. - Repeat colonoscopy in 1 year for surveillance. Procedure Code(s): --- Professional --- 77034, Colonoscopy, flexible; with removal of tumor(s), polyp(s), or other lesion(s) by snare technique 02308, 59, Colonoscopy, flexible; with biopsy, single or multiple CPT copyright 2021 [employer]. All rights reserved. The codes documented in this report are preliminary and upon digital sales director review may be revised to meet current compliance requirements. Stef Bennett DO 04/29/2024 11:15:46 AM This report has been signed electronically. Number of Addenda: 0 Note Initiated On: 04/29/2024 10:24 AM
--- NOTE | 2024-04-29 11:43 | PCM.POSTANE2 ---
Anesthesia Postop Eval I Sum Postop Eval Completion status Anesthesia document: Postop Eval 1 completed: Yes Anesthesia Postop Eval I Summary Anesthesia Postop Eval I Summary: Anesthesia Postop Eval I: Assessment Summary Airway patent Yes 04/29/24 11:16 [email or web address] Spontaneous unlabored Yes 04/29/24 11:16 [email or web address] respirations Mental status Asleep 04/29/24 11:16 [email or web address] nausea No 04/29/24 11:16 [email or web address] Vomiting No 04/29/24 11:16 [email or web address] Anesthesia Postop Eval I: Fluid Summary Crystalloid volume administer 600 04/29/24 11:16 [email or web address] (ml) Colloids volume administered ( ml) Blood Product volume administered (ml) Total IV fluid infused 600 04/29/24 11:16 [email or web address] Anesthesia Postop Eval I: Summary Notes Anesthesia Complication No 04/29/24 11:16 [email or web address] Anesthesia Complication Comment: Post-operative progress note Anesthesia: Postop Eval II Evaluation Mental status: Awake Pain Level: 0 nausea: No Vomiting: No Complications Anesthesia Complication: No
== END 2024-04-29 12:08 | disposition home or self-care (01) ==
LOC: EN 09:06 → AC 09:06
PROVIDERS: PCP Internal Medicine; Referring Provider Internal Medicine; Visit Provider Internal Medicine Gastroenterology
PROC: 0DJD8ZZ Inspection of Lower Intestinal Tract, Via Natural or Artificial Opening Endoscopic (ICD-10-PCS; CPT 45378; principal; 2024-04-29 10:10)
DX: Z12.11 Encounter for screening for malignant neoplasm of colon (principal); J44.9 Chronic obstructive pulmonary disease, unspecified; D12.3 Benign neoplasm of transverse colon; D12.5 Benign neoplasm of sigmoid colon; E78.00 Pure hypercholesterolemia, unspecified; K57.30 Diverticulosis of large intestine without perforation or abscess without bleeding; I73.9 Peripheral vascular disease, unspecified; I10 Essential (primary) hypertension; Z79.82 Long term (current) use of aspirin; Z79.51 Long term (current) use of inhaled steroids; Z79.899 Other long term (current) drug therapy; Z87.891 Personal history of nicotine dependence; Z86.718 Personal history of other venous thrombosis and embolism
CPT/HCPCS: 45380; 45385; 88305; J7120; J2405

== ENCOUNTER 2024-11-17 11:11 | Inpatient (IN) | payer MEDICARE, MEDICAID, SELFPAY ==
[2024-11-17] VITALS (13 sets, daily range): BP systolic 111–159; BP diastolic 54–114; PULSE 78–101; RESP 15–24; TEMP 36.1–37.2; O2SAT 92–96; BMI 32.9; BMI 32.3
[2024-11-17 12:33] LABS: Absolute Lymphocyte Count 2.17 X10^3/uL (0.83-4.51); Absolute Neutrophil Count 5.5 X10^3/uL (2.0-7.7); Basophil# 0.02 X10^3/uL; Basophil% 0.2 % (0-1); Eosinophil# 0.05 X10^3/uL; Eosinophils% 0.6 % (0-5); Hematocrit 43.6 % (37-47); Lymphocyte # 2.17 X10^3/ul (0.83-4.51); Lymphocyte % 26.5 % (19-41); Mean Corp Hgb Conc 32.1 g/dL (32-36); Mean Corpuscular Hgb 28.3 pg (27.0-32.0); Mean Corpuscular Volume 88.1 fL (81-99); Mean Platelet Vol. 11.2 fl (6.2-12.0); Monocyte# 0.45 X10^3/uL; Monocyte% 5.5 % (0-10); NRBC Flagged by Analyzer 0 % (0-5); Neutrophil # 5.48 X10^3/uL (2.7-7.7); POSITIVE COUNT YES; Platelet Count 179 K/mm3 (150-450); RBC Distribution Width CV 13.3 % (11.6-14.6); RBC Distribution Width SD 43.4 fl (35.1-43.9); Red Blood Count 4.95 M/mm3 (4.2-5.4); White Blood Count 8.2 K/mm3 (4.4-11.0)
--- NOTE | 2024-11-17 12:33 | RAD_ITS ---
PROCEDURE: CHEST PA AND LATERAL REASON FOR EXAM: Chest pain TECHNIQUE: Frontal and lateral views of the chest. COMPARISON: 11/21/2023 FINDINGS: The heart size is normal. There are atherosclerotic calcifications of the thoracic aorta. The lungs are clear. Degenerative changes are identified within the thoracic spine.. Left total shoulder arthroplasty RAD/Chest PA and Lateral IMPRESSION: No radiographic evidence of acute cardiopulmonary disease Reading Location: [facility]
[2024-11-17 12:57] LABS: BNP,B-Type NATRIURETIC PEPTIDE 25.2 pg/mL (0-100)
[2024-11-17 13:12] LABS: Anion Gap 10 (5-15); BUN 10 mg/dL (7-18); BUN/Creat Ratio 9.3 RATIO (10-20); Calcium,Total 9.4 mg/dL (8.5-10.1); Chloride 102 mmol/L (98-107); Creatinine, Serum 1.07 mg/dL (0.55-1.02); EST Glomerular Filtration Rate 54 mL/min (>60); Est Glom Filt Rate - Afr Amer 65 mL/min (>60); Estimated Creatinine Clearance 57.66 ml/min; Glucose 105 mg/dL (74-106); Potassium 3.5 mmol/L (3.5-5.1); Sodium Level 139 mmol/L (136-145); Troponin-I HS (w/2H Reflex) 68 pg/mL (3.0-54.0)
[2024-11-17] MEDS: MethylPREDNISolone 125 MG/2 ML Vial IV (13:22)
[2024-11-17 13:25] LABS: Differential Indicated SCAN CRITERIA MET; Platelet Estimate A (ADEQ)
--- NOTE | 2024-11-17 13:37 | EX.ED.DYSGE1 ---
HPI History of Present Illness Chief Complaint: Shortness of Breath Narrative Narrative: Patient is a 61-year-old female with past medical history of COPD chronically on 2 L nasal cannula, DVT, hypertension, alcohol abuse, hypercholesteremia, depression who presented to the emerged department chief complaint of shortness of breath and cough. According to patient's family member on Saturday she became ill and states that her mother passed out at home. She states that she got through the weekend followed up with their primary care doctor and noted that she was hypoxic on her oxygen called EMS to have her brought here further evaluation management. Per EMS she was 88% on 2 L they placed her on 5 L nasal cannula. [facility] Medical History Wears glasses Post-menopausal Gastric reflux Depression Walker as ambulation aid Arthritis Bladder disease High cholesterol Hx of fracture of wrist Back pain Syncope Loss of consciousness Shortness of breath on exertion Leg cramps History of edema History of echocardiogram History of stress test Cardiology follow-up encounter Dependence on supplemental oxygen Euthyroid sick syndrome Thyroid disorder Chronic hepatitis C without hepatic coma Smoker COPD (chronic obstructive pulmonary disease) Presence of stent in artery H/O cocaine abuse H/O ETOH abuse DVT (deep venous thrombosis) Lumbar herniated disc HTN (hypertension) Alcohol abuse Cocaine abuse Home Medications ?Medication ?Instructions ?Recorded ?Last Taken ?Type albuterol sulfate 90 mcg/actuation 2 puff IH Q4H PRN PRN Wheezing 08/26/20 08/26/20 History aerosol inhaler aspirin 81 mg chewable tablet 81 mg PO DAILY BLOOD CLOT 08/26/20 04/26/24 History lisinopril 10 mg tablet 30 mg PO DAILY bp 08/26/20 04/29/24 07:30 History tizanidine 2 mg capsule 4 mg PO Q8 PRN Muscle Spasm 08/26/20 04/29/24 History atorvastatin 40 mg tablet 40 mg PO DAILY 02/07/21 Unknown History furosemide 20 mg tablet 20 mg PO DAILY 10/17/22 Unknown History potassium chloride 10 mEq 10 meq PO DAILY 10/17/22 Unknown History capsule,extended release budesonide 160 mcg-glycopyr 9 2 inh inhalation BID 02/08/23 Unknown History mcg-formot 4.8 mcg/actuation HFA inhaler (Breztri Aerosphere) gabapentin 300 mg capsule 300 mg PO TID nerve pain 02/08/23 Unknown History ipratropium 0.5 mg-albuterol 3 mg 3 ml inhalation TID PRN shortness 02/08/23 Unknown History (2.5 mg base)/3 mL nebulization of breath or wheezing soln diclofenac sodium 1 % topical gel 2 g topical BID PRN pain 02/15/23 Unknown History (Voltaren Arthritis Pain) gabapentin 100 mg capsule 400 mg PO QHS 08/05/23 Unknown History acetaminophen 500 mg tablet 1,000 mg PO Q8 PRN pain 04/27/24 Unknown History omeprazole 40 mg capsule,delayed 40 mg PO DAILY 04/27/24 Unknown History release Allergy/AdvReac Type Severity Reaction Status Date / Time No Known Allergies Allergy Verified 11/17/24 11:55 Family History Mother Hypertension Other Alcoholism Surgical History History of rotator cuff surgery H/O vascular surgery Stenosis of artery of left lower extremity Social History household members: none housing: apartment current occupational status: retired Smoking Status: Former smoker how long ago did patient quit smoking: January 2022 alcohol intake: former substance use type: former substance user Date of last use: 03/2020 and crack/cocaine caffeine: Yes Type: carbonated beverages and coffee ROS ROS ED ROS Narrative Constitutional: Complains of chills diffuse bodyaches and not feeling well overall Eyes: Denies change in vision double vision blurry vision Cardiovascular: Complains of chest discomfort from coughing denies palpitations Respiratory: Complains of cough and shortness of breath as noted above Abdomen: Denies abdominal pain nausea vomit diarrhea : Denies any urinary symptoms Neurological: Denies numbness, weakness, tingling Musculoskeletal: Denies back pain Skin: Denies any rashes or lesions EXAM Physical Exam Narrative Exam Narrative: General: Patient lying in bed did appear to be not feeling well overall Head: Atraumatic, normocephalic Eyes: PERRL bilaterally, EOMI bilaterally, no conjunctival injection noted Neck: Soft, supple, trachea midline Cardiovascular: Regular rate and rhythm no murmurs gallops rubs noted Respiratory: Diffuse end expiratory wheezing noted on exam Abdomen: No tenderness palpation, soft, nondistended Extremities: +5/5 strength noted in the bilateral upper and lower extremities, radial pulses +2/4 in the bilateral extremities Neurological: Patient following commands knew that she was at [facility] year is 2024 Skin: Warm, dry, intact no rashes or lesions noted Const Vital Signs: 11/17/24 11:26 11/17/24 11:52 11/17/24 12:17 Temperature 99.0 F Temperature Source Oral Pulse Rate 100 Respiratory Rate 18 Respiratory Effort Short of Breath Respiratory Depth Normal Respiratory Pattern Normal Blood Pressure 136/114 H Blood Pressure Mean 121 Pulse Ox 94 Oxygen Delivery Method Nasal Cannula Nasal Cannula Nasal Cannula Oxygen Flow Rate (L/min) 3 3 11/17/24 13:00 Temperature Temperature Source Pulse Rate 94 Respiratory Rate 20 H Respiratory Effort Respiratory Depth Respiratory Pattern Blood Pressure 119/82 H Blood Pressure Mean 89 Pulse Ox Oxygen Delivery Method Oxygen Flow Rate (L/min) MDM MDM MDM Narrative Medical decision making narrative: Patient is a 69-year-old female who presents to the Emergency Department chief complaint of cough and shortness of breath. On the differential diagnose includes but not limited to pneumonia, ACS, pneumothorax, upper respiratory infection secondary to viral etiology. Once workup is obtained and reviewed she will be reevaluated.Patient will be given a liter of IV fluids. 3 DuoNebs and Solu-Medrol. Patient CBC showed no evidence leukocytosis white blood count normal at 8.2, hemoglobin 14, plate count noted be normal at 179. Patient sodium was noted be normal at 139, potassium normal at 3.5, creatinine is at be 1.07. Patient's troponin was noted be 68 however she has chronically elevated troponins, patient is EKG reviewed showed sinus rhythm with a rate of 96 bpm With depressions noted in the inferior and lateral leads. This was compared to previous EKG from November 21, 2023 which is slightly worsening depressions in these leads however V1 looks similar in nature. Delta troponin will be obtained. Patient test positive for influenza A. I will discuss case with hospitalist for COPD exacerbation setting of influenza with increasing oxygen requirements. Discussed case with hospitalist Dr. Yu who accept patient for admission. Patient notified as well as family at bedside all question concerns answered. Lab Data Labs: Laboratory Results - last 24 hr 11/17/24 12:20 WBC 8.2 RBC 4.95 Hgb 14.0 Hct 43.6 MCV 88.1 MCH 28.3 MCHC 32.1 RDW Std Deviation 43.4 RDW Coeff of Oleg 13.3 Plt Count 179 MPV 11.2 Immature Gran % (Auto) 0.200 Neut % (Auto) 67.0 Lymph % (Auto) 26.5 [place] % (Auto) 5.5 Eos % (Auto) 0.6 Baso % (Auto) 0.2 Absolute Neuts (auto) 5.5 Absolute Lymphs (auto) 2.17 Nucleated RBC % 0 Platelet Estimate A PT Cancelled INR Cancelled APTT Cancelled Sodium 139 Potassium 3.5 Chloride 102 Carbon Dioxide 27.0 Anion Gap 10 BUN 10 Creatinine 1.07 H Estim Creat Clear Calc 57.66 Est GFR (MDRD) Af Amer 65 Est GFR (MDRD) Non-Af 54 L BUN/Creatinine Ratio 9.3 L Glucose 105 Calcium 9.4 Troponin I High Sens 68 H B-Natriuretic Peptide 25.2 Radiography Diagnostic Testing: Clinical Impression(s) from Imaging Studies Chest X-Ray 11/17/24 12:33 IMPRESSION: No radiographic evidence of acute cardiopulmonary disease Reading Location: [facility] Discharge Plan Triage Chief Complaint: Shortness of Breath ED Provider: Doron Bernardo Dx/Rx/DC Orders Clinical Impression: Acute on chronic hypoxic respiratory failure, Influenza A, Type 2 acute myocardial infarction Prescriptions: No Action furosemide 20 mg tablet 20 mg PO DAILY potassium chloride 10 mEq capsule, extended release 10 meq PO DAILY Breztri Aerosphere 160-9-4.8 mcg/actuation HFA aerosol inhaler 2 inh inhalation BID ipratropium-albuterol 0.5 mg-3 mg(2.5 mg base)/3 mL solution for nebulization 3 ml inhalation TID PRN (Reason: shortness of breath or wheezing) diclofenac sodium [Voltaren Arthritis Pain] 1 % gel 2 g topical BID PRN (Reason: pain) Rx Instructions: apply to single elbow, wrist or hand; for hand includes palm/fingers/back of hand lisinopril 10 MG tablet 30 mg PO DAILY aspirin 81 MG tablet,chewable 81 mg PO DAILY Patient Comments: Take 1 tablet by mouth once daily. albuterol sulfate 18 GM HFA aerosol inhaler 2 puff IH Q4H PRN PRN (Reason: Wheezing) Patient Comments: Inhale 2 Puffs as instructed every 4 hours as needed. tizanidine 2 MG capsule 4 mg PO Q8 PRN (Reason: Muscle Spasm) gabapentin 300 mg capsule 300 mg PO TID atorvastatin 40 mg tablet 40 mg PO DAILY Patient Comments: Take 1 tablet by mouth once daily. gabapentin 100 mg capsule 400 mg PO QHS Patient Comments: TAKE 1 CAPSULE BY MOUTH DAILY AT BEDTIME FOR 90 DAYS. TAKE IN ADDITION TO 300MG DOSE TO EQUAL 400MG BEFORE BED acetaminophen 500 mg Tablet 1,000 mg PO Q8 PRN (Reason: pain) omeprazole 40 mg capsule,delayed release(DR/EC) 40 mg PO DAILY Primary Care Provider: Leonie Castillo Referrals: Leonie Castillo MD [Primary Care Provider] - Print Language: Urdu Disposition Disposition: Acute Care Hospital [facility]
[2024-11-17] MEDS: Acetaminophen 500 MG Tablet 1000 MG PO (13:57)
[2024-11-17] MEDS: 0.9% Normal Saline (1000mL) 1,000 ML 999 ML IV (13:58)
[2024-11-17 14:13] LABS: Partial Thromboplast Time 28.7 Seconds (24.1-36.2)
[2024-11-17 14:16] LABS: International Normalized Ratio 1.1; Prothrombin Time (Protime)PT. 14.5 SECONDS (11.7-14.9)
[2024-11-17] MEDS: Ipratropium/Albuterol Sulfate 3 ML AMPUL.NEB INHALATION ×4 (14:23→18:41)
--- NOTE | 2024-11-17 14:23 | ED.RN ---
Patient refused to wear oxygen to bathroom. States I cannot wait
[2024-11-17 14:26] LABS: Reflex Troponin-HS? (from REC) Y
--- NOTE | 2024-11-17 14:57 | PCM.HP.STD ---
HPI - General General Date of Admission: 11/17/24 Date of Service: 11/17/24 Chief Complaint: Increase shortness of breath HPI Narrative INDIRA HOLLINGSWORTH, is a 69-year-old female history of COPD on 2 L nasal cannula chronically, GERD, hep C who presented [facility] ED 09/16/2025 due to shortness of breath. She has been feeling ill with increased shortness of breath and cough since Saturday and had a syncopal episode but recovered and stayed at home throughout the weekend until today when she saw her primary care doc but was noted to be 84% on 2 L of O2 and EMS was called. By the time EMS got there she was 88% on 2 L and she was then placed on 5 L nasal cannula. In the ED patient 94% on 3 L, chest x-ray within normal limits, troponin slightly elevated at 68 and she was found to be influenza A positive. Patient was given steroids and breathing treatments and hospitalist contacted for admission for COPD exacerbation. Patient seen at bedside and is having increased work of breathing as she took off her oxygen walk to the bathroom and back, breathing treatment being applied. Patient somewhat poor historian and friend at bedside provided some the history. Patient has been sick since Saturday and had a syncopal episode the patient reports she was walking and then she just was on the floor, had not had this before or after and said maybe she was feeling lightheaded and days prior to that been having nausea, vomiting, and diarrhea. Notes her chest hurts when she coughs and has had increased cough and shortness of breath as well as fever, stuffy nose and sore throat, feels generally achy and unwell. When asked about blood clots in her legs she comments that she had a surgery before on the vessels with a stent and is on aspirin, she is unsure if she supposed to be on a full dose blood thinner or if she is on 1. [facility] Medical History Wears glasses Post-menopausal Gastric reflux Depression Walker as ambulation aid Arthritis Bladder disease High cholesterol Hx of fracture of wrist Back pain Syncope Loss of consciousness Shortness of breath on exertion Leg cramps History of edema History of echocardiogram History of stress test Cardiology follow-up encounter Dependence on supplemental oxygen Euthyroid sick syndrome Thyroid disorder Chronic hepatitis C without hepatic coma Smoker COPD (chronic obstructive pulmonary disease) Presence of stent in artery H/O cocaine abuse H/O ETOH abuse DVT (deep venous thrombosis) Lumbar herniated disc HTN (hypertension) Alcohol abuse Cocaine abuse Home Medications ?Medication ?Instructions ?Recorded ?Last Taken ?Type albuterol sulfate 90 mcg/actuation 2 puff inhalation Q4H PRN Wheezing 08/26/20 08/26/20 History aerosol inhaler aspirin 81 mg chewable tablet 81 mg PO DAILY BLOOD CLOT 08/26/20 11/16/24 History atorvastatin 40 mg tablet 40 mg PO DAILY 02/07/21 11/16/24 History furosemide 20 mg tablet 20 mg PO DAILY 10/17/22 11/16/24 History potassium chloride 10 mEq 10 meq PO DAILY 10/17/22 11/16/24 History capsule,extended release budesonide 160 mcg-glycopyr 9 2 inh inhalation BID 02/08/23 11/16/24 History mcg-formot 4.8 mcg/actuation HFA inhaler (Breztri Aerosphere) diclofenac sodium 1 % topical gel 2 g topical BID PRN pain 02/15/23 11/16/24 History (Voltaren Arthritis Pain) omeprazole 40 mg capsule,delayed 40 mg PO DAILY 04/27/24 11/16/24 History release famotidine 40 mg tablet 40 mg PO QHS 11/17/24 Unknown History lisinopril 30 mg tablet 30 mg PO DAILY 11/17/24 11/16/24 History methimazole 5 mg tablet 5 mg PO DAILY 11/17/24 Unknown History tizanidine 4 mg tablet 4 mg PO Q8 PRN muscle spasms 11/17/24 Unknown History Allergy/AdvReac Type Severity Reaction Status Date / Time No Known Allergies Allergy Verified 11/17/24 11:55 Family History Mother Hypertension Other Alcoholism Surgical History History of rotator cuff surgery H/O vascular surgery Stenosis of artery of left lower extremity Social History household members: none housing: apartment current occupational status: retired Smoking Status: Former smoker how long ago did patient quit smoking: January 2022 alcohol intake: former substance use type: former substance user Date of last use: 03/2020 and crack/cocaine caffeine: Yes Type: carbonated beverages and coffee ROS ROS Narrative General: Fevers and chills HENT: Headache, stuffy nose, sore throat EYES: Denies changes in vision Resp: Increased cough and shortness of breath Cardiac: Chest pain when she coughs GI: Denies abdominal pain, was having nausea, vomiting, diarrhea last week : Denies changes in urination Extremity: Denies swelling MSK: Some generalized weakness Neuro: Denies any numbness/tingling Heme: Denies any bleeding or bruising Skin: Denies rashes Psychiatric: No complaints voiced Vital Signs Vital Signs Vital Signs: 11/17/24 11:26 11/17/24 11:52 11/17/24 12:17 Temperature 99.0 F Temperature Source Oral Pulse Rate 100 Respiratory Rate 18 Respiratory Effort Short of Breath Respiratory Depth Normal Respiratory Pattern Normal Blood Pressure 136/114 H Blood Pressure Mean 121 Pulse Ox 94 Oxygen Delivery Method Nasal Cannula Nasal Cannula Nasal Cannula Oxygen Flow Rate (L/min) 3 3 11/17/24 13:00 11/17/24 13:55 11/17/24 14:26 Temperature 98.6 F Temperature Source Pulse Rate 94 89 90 Respiratory Rate 20 H 15 24 H Respiratory Effort Respiratory Depth Respiratory Pattern Tachypnea Blood Pressure 119/82 H 147/87 H Blood Pressure Mean 89 107 Pulse Ox 92 Oxygen Delivery Method Oxygen Flow Rate (L/min) 11/17/24 14:27 Temperature Temperature Source Pulse Rate Respiratory Rate Respiratory Effort Respiratory Depth Respiratory Pattern Blood Pressure Blood Pressure Mean Pulse Ox 92 Oxygen Delivery Method Nasal Cannula Oxygen Flow Rate (L/min) 3 Weight Weight: 92.5 kg Body Mass Index (BMI) 32.9 Physical Exam Narrative General: Alert, somewhat poor historian HEENT: Atraumatic, normocephalic Eyes: Anicteric, normal conjunctiva, extraocular movements grossly intact Neck: Supple Respiratory: Increased respiratory effort with diffuse wheezes Cardiovascular: Regular rate and rhythm GI: Soft, nontender, nondistended Extremities: No edema Musculoskeletal: Moving all extremities Neuro: No overt focal neurological deficits Skin: No rashes appreciated Psych: Fairly cooperative Results Lab / Micro Data 11/17/24 12:20 11/17/24 12:20 Labs: Laboratory Results - last 24 hr 11/17/24 12:20: WBC 8.2, RBC 4.95, Hgb 14.0, Hct 43.6, MCV 88.1, MCH 28.3, MCHC 32.1, RDW Std Deviation 43.4, RDW Coeff of Oleg 13.3, Plt Count 179, MPV 11.2, Immature Gran % (Auto) 0.200, Neut % (Auto) 67.0, Lymph % (Auto) 26.5, [place] % (Auto) 5.5, Eos % (Auto) 0.6, Baso % (Auto) 0.2, Absolute Neuts (auto) 5.5, Absolute Lymphs (auto) 2.17, Nucleated RBC % 0, Platelet Estimate A, PT Cancelled, INR Cancelled, APTT Cancelled, Sodium 139, Potassium 3.5, Chloride 102, Carbon Dioxide 27.0, Anion Gap 10, BUN 10, Creatinine 1.07 H, Estim Creat Clear Calc 57.66, Est GFR (MDRD) Af Amer 65, Est GFR (MDRD) Non-Af 54 L, BUN/Creatinine Ratio 9.3 L, Glucose 105, Calcium 9.4, Troponin I High Sens 68 H, B-Natriuretic Peptide 25.2 11/17/24 13:49: PT 14.5, INR 1.1, APTT 28.7 Micro: Microbiology 11/17/24 12:20 Mucosa - Nose SARS-CoV-2, Influenza & RSV (PCR) - Final Influenzae A Imaging Radiology Impression Chest X-Ray 11/17/24 12:33 IMPRESSION: No radiographic evidence of acute cardiopulmonary disease Reading Location: [facility] Assessment & Plan Assessment/Plan (1) Acute on chronic hypoxic respiratory failure: PLAN: Plan #Acute exacerbation of COPD secondary to influenza A on top of chronic hypoxic respiratory failure on 2 L O2 -Admit to floor, continuous O2 monitoring -Chest x-ray: No acute process -Patient influenza A positive, symptoms that been going on since Saturday, not a candidate for Tamiflu -O2 in place, wean as tolerated -IV methylprednisone -Scheduled DuoNebs -Albuterol prn -Incentive spirometer -Mucinex # Syncopal episode at home -Patient somewhat poor historian but reports she was having nausea, vomiting, diarrhea and possibly been having some lightheadedness around that time -Likely it may have been due to her acute illness and volume depletion but will obtain echo considering this and slight elevation of troponin even though that is not new and could be explained by her hypoxia -Patient received some IV fluids in the ED -Hold furosemide at this time, monitor daily weights and I's and O's -Patient reports history consistent with PAD, unclear what the VTE history is, she knows she is on an aspirin but does not appear to be on any other anticoagulation -Given there is an explanation for her syncopal episode as well as her COPD exacerbation do not think that patient had acute PE, if slow to improve or any vital abnormalities could consider CTA however given alternative explanations as well as patient's CKD would be hesitant to give her contrast unless absolutely necessary or high clinical suspicion # Elevated troponin -Does appear to have somewhat chronically elevated troponin however suspect that this is due to her hypoxia she denies any chest pain outside of some aching when she coughs -Will check echo as above -Patient's EKG with some ST/T wave changes more so in lateral leads, review of patient's EKGs available in our system it appears she has had some T wave inversions and ST changes previously and these are not necessarily acute #GERD -Continue PPI and home famotidine #Hypertension -Continue lisinopril #DVT ppx: Lovenox subcu Stephenie Yu MD Charges/Coding Visit Charges Inpatient E&M: 35324 Init Hosp L2
[2024-11-17 15:25] LABS: Troponin-I HS 71 pg/mL (3.0-54.0)
--- NOTE | 2024-11-17 15:58 | ECHOCS_ITS ---
Reason For Study Reason For Study: SYNCOPE/NEAR SYNCOPE Procedure This was a 2D Doppler, Color Flow transthoracic echocardiogram. The study was technically difficult. Exam performed portable in patient room. Left Ventricle Normal size and thickness. The left ventricular ejection fraction is 65 %. Normal diastology for age. Right Ventricle Normal right ventricle. Atria The left and right atria are normal. Mitral Valve Trivial mitral valve insufficiency. Tricuspid Valve Trivial tricuspid valve insufficiency. Right ventricular systolic pressure estimated to be 36 mmHg. Aortic Valve Aortic sclerosis, no stenosis. Pulmonic Valve The pulmonic valve is not well visualized. Great Vessels Normal sized aortic root. Pericardium/Pleural No pericardial effusion. Medication Diluted definity 1ml given slow IV push to enhance endocardial definition. MMode/2D Measurements & Calculations LVIDd: 3.5 cm IVSd: 1.1 cm Ao root diam: 3.2 cm LVIDs: 2.4 cm LVPWd: 1.1 cm RVDd: 3.1 cm FS: 32.1 % LAV(MOD-bp): 18.9 ml LVAd ap4: 16.5 cm2 SV(MOD-sp4): 24.9 ml LAV(MOD-bp) Indexed: 9.3 ml/m2 LVLd ap4: 6.3 cm SI(MOD-sp4): 12.3 ml/m2 LAV(MOD-sp2): 19.3 ml EDV(MOD-sp4): 35.8 ml LAV(MOD-sp4): 18.6 ml EDV(sp4-el): 36.8 ml LVAs ap4: 8.2 cm2 LVLs ap4: 5.0 cm ESV(MOD-sp4): 10.8 ml ESV(sp4-el): 11.3 ml EF(MOD-sp4): 69.7 % EF(sp4-el): 69.3 % SV(sp4-el): 25.5 ml LA A4 area: 9.8 cm2 LA dimension(2D): 2.3 cm RA A4 area: 9.3 cm2 TAPSE: 1.8 cm Time Measurements MV dec time: 0.30 sec Doppler Measurements & Calculations MV E max john: 67.2 cm/sec Lat Peak E' John: 10.3 cm/sec Med Peak E' John: 8.5 cm/sec MV A max john: 87.7 cm/sec E/E' lat: 6.5 E/E' med: 7.9 MV E/A: 0.77 Ao V2 max: 134.2 cm/sec LV V1 max: 111.8 cm/sec TR max john: 277.6 cm/sec Ao max P.2 mmHg LV V1 max P.0 mmHg TR max P.8 mmHg ECHO/Echo Complete W/ Contrast Interpretation Summary The left ventricular ejection fraction is 65 %. Right ventricular systolic pressure estimated to be 36 mmHg. Aortic sclerosis, no stenosis. Ordering Physician: Stephenie Yu Referring Physician: MOLLY PETERSON Performed By: Gregoria Joseph RDCS
--- NOTE | 2024-11-17 16:02 | CASEMGMT ---
Care Management Face to Face with patient for initial transition planning/care coordination assessment in the ED.? This typewriters functional tester introduced self and role at [facility]. Patient alert and oriented. Patient willing to participate in assessment and is able to answer all questions appropriately.? Care providers, pharmacy, and demographics verified. Admitting Diagnosis: hypoxic respiratory failure Other diagnosis history: ?COPD, HTN, influenza A PCP: [facility] Specialists: ?says she sees a lot of them but cannot remember any of their names Preferred Pharmacy: ?[facility] Insurance: ?[place] Prescription Benefit: Yes Living Will/HPOA: ?Does not have any complete LNOK: sister Living Arrangements: lives in first floor apartment, is independent with ADLs and IADLs.? Transportation: uses cab DME: ?shower chair, grab bars in bathroom, walker, cane HHC: ?has used in past, could not remember name SNF/Rehab: short stay at [facility] Community Resources: ?None Behavioral Health History: Depression, is not taking any antidepressants Patient goals: Patient wishes to discharge home. Disposition Plan: admission to acute; RN CM/SW to follow for discharge planning needs that may arise. Elva Davis, MOUTHPIECE MAKER, CIGAR MAKING SUPERVISOR
[2024-11-17] MEDS: Acetaminophen 325 MG Tablet 650 MG PO (19:35)
--- NOTE | 2024-11-17 20:06 | PCM.HOSP.N ---
Hospitalist Note Called that patient was complaining of some chest pain, patient vitally stable, is on 4 L O2 but saturating 95%, EKG similar to earlier if not slightly improved and again similar changes were seen on previous EKGs. Troponin ordered
[2024-11-17] MEDS: 0.9% Saline Lock 10 ML Syringe IV (22:21)
[2024-11-17] MEDS: guaiFENesin 600 MG Tablet PO (22:22)
[2024-11-17] MEDS: Famotidine 20 MG Tablet 40 MG PO (22:22)
[2024-11-17] MEDS: Arthritis Pain Compound 60 CLICK TUBE TOPICAL (22:25)
[2024-11-17 22:38] LABS: Troponin-I HS 59 pg/mL (3.0-54.0)
--- NOTE | 2024-11-17 23:00 | CPS ---
ATTEMPTED AEROSOL TX WITH PT AT 2300 11/17/24 PT WAS ASLEEP, AND WAVED ME TO STOP AT THAT TIME, NURSE AWARE WILL CALL WHEN READY FOR AEROSOL TX.
[2024-11-18] VITALS (10 sets, daily range): BP systolic 102–146; BP diastolic 56–86; PULSE 74–89; RESP 16–22; TEMP 35.8–36.5; O2SAT 94–98; BMI 33.0
[2024-11-18] MEDS: Ipratropium/Albuterol Sulfate 3 ML AMPUL.NEB INHALATION ×5 (01:12→20:01)
[2024-11-18] MEDS: Sodium Chloride 0.65% 1 SPRAY SPRAY.BTL 2 SPRAY NASAL ×2 (02:47→14:32)
[2024-11-18] MEDS: Albuterol 2.5 MG/3 ML VIAL.NEB. INHALATION (04:10)
[2024-11-18] MEDS: BENZOCAINE/MENTHOL 1 LOZENGE 2 LOZENGE MUCOUS MEM (04:16)
[2024-11-18] MEDS: Acetaminophen 325 MG Tablet 650 MG PO ×2 (04:17→14:23)
[2024-11-18] MEDS: Arthritis Pain Compound 60 CLICK TUBE TOPICAL ×2 (05:14→19:13)
[2024-11-18] MEDS: 0.9% Saline Lock 10 ML Syringe IV ×3 (05:14→23:53)
[2024-11-18 06:14] LABS: Absolute Neutrophil Count 6.1 X10^3/uL (2.0-7.7); Basophil# 0.02 X10^3/uL; Basophil% 0.3 % (0-1); Hematocrit 40.4 % (37-47); Hemoglobin 13.4 g/dL (12.0-15.0); Lymphocyte % 16.1 % (19-41); Mean Corp Hgb Conc 33.2 g/dL (32-36); Mean Corpuscular Volume 87.4 fL (81-99); Mean Platelet Vol. 11.5 fl (6.2-12.0); Monocyte# 0.09 X10^3/uL; Monocyte% 1.2 % (0-10); NRBC Flagged by Analyzer 0 % (0-5); Neutrophil # 6.13 X10^3/uL (2.7-7.7); Neutrophil % 82.1 % (47-70); Platelet Count 205 K/mm3 (150-450); RBC Distribution Width CV 13.3 % (11.6-14.6); RBC Distribution Width SD 42.8 fl (35.1-43.9); Red Blood Count 4.62 M/mm3 (4.2-5.4); White Blood Count 7.5 K/mm3 (4.4-11.0)
[2024-11-18 06:43] LABS: Anion Gap 10 (5-15); BUN 12 mg/dL (7-18); BUN/Creat Ratio 10.8 RATIO (10-20); Calcium,Total 9.3 mg/dL (8.5-10.1); Chloride 105 mmol/L (98-107); Creatinine, Serum 1.11 mg/dL (0.55-1.02); EST Glomerular Filtration Rate 52 mL/min (>60); Est Glom Filt Rate - Afr Amer 63 mL/min (>60); Estimated Creatinine Clearance 55.64 ml/min; Glucose 272 mg/dL (74-106); Potassium 3.4 mmol/L (3.5-5.1); Sodium Level 139 mmol/L (136-145)
[2024-11-18] MEDS: Enoxaparin 40 MG/0.4 ML Syringe SC (10:42)
[2024-11-18] MEDS: guaiFENesin 600 MG Tablet PO ×2 (10:42→23:49)
[2024-11-18] MEDS: Pantoprazole Sodium 40 MG Tablet PO (10:42)
[2024-11-18] MEDS: Aspirin 81 MG TAB.CHEW PO (10:42)
[2024-11-18] MEDS: Atorvastatin Calcium 40 MG Tablet PO (10:42)
[2024-11-18] MEDS: Lisinopril 20 MG Tablet 30 MG PO (10:43)
[2024-11-18] MEDS: Methimazole 5 MG Tablet PO (10:43)
[2024-11-18] MEDS: tiZANidine HCl 2 MG Tablet 4 MG PO ×2 (10:44→19:12)
[2024-11-18] MEDS: Potassium Chloride Oral Tablet 10 MEQ PO (10:53)
[2024-11-18] MEDS: Potassium Chloride Oral Tablet 20 MEQ 40 MEQ PO (10:53)
[2024-11-18] MEDS: Furosemide 20 MG Tablet PO (10:53)
--- NOTE | 2024-11-18 13:59 | PN_ITS ---
Subjective Subjective Patient seen and examined. She was feeling very short of breath and was wheezing. She was very uncomfortable with the coughing and wheezing. She said her throat was sore because of the coughing. She denied any fever or chills. Review of systems otherwise negative. Objective Data Objective Data Vital Signs: Vital Signs Temp Pulse Resp BP Pulse Ox O2 Del Method O2 Flow Rate 97.6 F L 85 20 H 146/86 H 95 Nasal Cannula 4 11/18/24 09:28 11/18/24 10:56 11/18/24 10:56 11/18/24 09:28 11/18/24 09:28 11/18/24 10:00 11/18/24 12:47 Oxygen Flow Rate (L/min) 4 Oxygen Delivery Method Nasal Cannula Weight: 204 lb 5.896 oz Body Mass Index (BMI) 33.0 Intake & Output: Intake and Output for Last 24 Hours 11/16/24 11/17/24 11/18/24 23:59 23:59 23:59 Intake Total 1120 / 1120 240 / 240 Balance 1120 / 1120 240 / 240 Lab / Micro Data 11/18/24 05:30 11/18/24 05:30 Labs: Laboratory Results - last 24 hr 11/17/24 13:49: PT 14.5, INR 1.1, APTT 28.7 11/17/24 14:54: Troponin I High Sens 71 H 11/17/24 22:00: Troponin I High Sens 59 H 11/18/24 05:30: WBC 7.5, RBC 4.62, Hgb 13.4, Hct 40.4, MCV 87.4, MCH 29.0, MCHC 33.2, RDW Std Deviation 42.8, RDW Coeff of Oleg 13.3, Plt Count 205, MPV 11.5, Immature Gran % (Auto) 0.300, Neut % (Auto) 82.1 H, Lymph % (Auto) 16.1 L, [place] % (Auto) 1.2, Eos % (Auto) 0.0, Baso % (Auto) 0.3, Absolute Neuts (auto) 6.1, Absolute Lymphs (auto) 1.20, Nucleated RBC % 0, Sodium 139, Potassium 3.4 L, Chloride 105, Carbon Dioxide 24.0, Anion Gap 10, BUN 12, Creatinine 1.11 H, Estim Creat Clear Calc 55.64, Est GFR (MDRD) Af Amer 63, Est GFR (MDRD) Non-Af 52 L, BUN/Creatinine Ratio 10.8, Glucose 272 H, Calcium 9.3 Micro: Microbiology 11/17/24 12:20 Mucosa - Nose SARS-CoV-2, Influenza & RSV (PCR) - Final Influenzae A Physical Exam Const Constitutional Narrative: Alert. In moderate distress due to severe shortness of breath and wheezing as well as coughing. HEENT normocephalic, head/scalp atraumatic, moist oral mucous membranes and oropharynx normal Eyes PERRL and EOMs intact bilaterally Neck no lymphadenopathy and supple Lymph Lymphatic: no lymphadenopathy noted and no lymphedema noted Resp Resp Narrative: Moderately diminished breath sounds laterally. Coarse crackles in both lung stevens with very audible wheezing. On 4 L of oxygen by nasal cannula Cardio regular rate, regular rhythm, S1 normal heart sound, S2 normal heart sound and no murmurs GI normal to inspection, nondistended, normoactive bowel sounds, soft to palpation, non-tender and non-distended Extremity normal capillary refill, no clubbing, cyanosis or edema and no calf tenderness General Extremity: no tenderness to palpation of joints or extremities Skin General Skin Exam: no breakdown Neuro CN's II-XII intact bilaterally, no focal motor deficits, no sensory deficits noted and deep tendon reflexes 2+ bilaterally Motor Exam: strength 5/5 throughout and general weakness Psych thought process normal, cooperative and affect normal Appearance: appropriate Assessment & Plan Assessment/Plan (1) Influenza A: (2) Acute on chronic hypoxic respiratory failure: (3) Type 2 acute myocardial infarction: PLAN: Plan #Acute on chronic hypoxic respiratory failure due to COPD exacerbation and influenza infection * not a candidate for tamiflu * on IV solumedrol and breathing treatment with bronchodilators * titrate oxygen to maintain sats>90% * breathing treatment with bronchodilators * on robitussin * # #Syncope * complained of nausea, vomiting and diarrhea whilst at home. * She also complained of dizziness, which may have been due to volume depletion from her nausea, vomiting and diarrhea. She did have a slight elevation in her troponin, * 2D echo ordered. Lasix on hold * being gently hydrated with IVF * fall precautions. * EKG showed acute ST changes in lateral leads which is not new. * 2D echo showed EF of 65% with normal diastole, and right ventricular systolic pressure of 36 mmHg. * #Hypokalemia: Potassium is 3.4. Will replace and trend. #GERD: on PPI #Hypertension: on lisinopril. #Hyperlipidemia: on statin #Hyperthyroidism: on methimazole DVT prophylaxis: lovenox Charges/Coding Visit Charges Inpatient E&M: 95495 Subs Hosp L2
[2024-11-18] MEDS: BMX LIQUID 180 ML 10 ML PO ×3 (14:25→23:50)
--- NOTE | 2024-11-18 15:00 | CASEMGMT ---
CHARMAINE VALENCIA NOTE: CHARMAINE VALENCIA to room. Introduced self and role. Discussed home O2. Pt states he has home O2 through [employer], stating she wears it @ 2 L/M. She states she has a concentrator and portable O2, stating she has a portable O2 tank in her closet here @ [facility] to go home on @ discharge. She also states she has a pulse ox @ home. She voices no home-going needs/concerns at this time. Jumana JOHNSONN CHARMAINE VALENICA
[2024-11-18] MEDS: Senna/Docusate Sodium 1 Tablet 2 TABLET PO (19:12)
[2024-11-18] MEDS: Famotidine 20 MG Tablet 40 MG PO (23:49)
[2024-11-19] VITALS (12 sets, daily range): BP systolic 114–141; BP diastolic 66–86; PULSE 86–105; RESP 18–24; TEMP 36.1–36.6; O2SAT 88–100; BMI 33.4
[2024-11-19] MEDS: 0.9% Saline Lock 10 ML Syringe IV ×3 (06:01→21:56)
[2024-11-19] MEDS: Ipratropium/Albuterol Sulfate 3 ML AMPUL.NEB INHALATION ×6 (07:11→23:35)
[2024-11-19 07:58] LABS: Allen Test Positive; Base Excess 0 mmol/L (-2 to +2); Bicarbonate 22.1 mmol/L (22-26); Blood Gas Specimen Type ART; Mode Not entered; O2 Delivery Device Cannula; PO2 162 mmHG (75-100); SITE L Radial; SO2 100 % (95-99); Total Carbon Dioxide 23 mmol/L; pCO2 25.4 mmHg (35-45); pH 7.55 (7.35-7.45)
[2024-11-19 08:21] LABS: Absolute Lymphocyte Count 0.91 X10^3/uL (0.83-4.51); Absolute Neutrophil Count 11.6 X10^3/uL (2.0-7.7); Basophil# 0.02 X10^3/uL; Basophil% 0.2 % (0-1); Hematocrit 40.8 % (37-47); Hemoglobin 13.4 g/dL (12.0-15.0); Lymphocyte # 0.91 X10^3/ul (0.83-4.51); Mean Corp Hgb Conc 32.8 g/dL (32-36); Mean Corpuscular Hgb 29.1 pg (27.0-32.0); Mean Corpuscular Volume 88.5 fL (81-99); Mean Platelet Vol. 11.8 fl (6.2-12.0); Monocyte# 0.32 X10^3/uL; Monocyte% 2.5 % (0-10); NRBC Flagged by Analyzer 0 % (0-5); Neutrophil % 89.3 % (47-70); Platelet Count 261 K/mm3 (150-450); RBC Distribution Width CV 13.7 % (11.6-14.6); RBC Distribution Width SD 44.3 fl (35.1-43.9); Red Blood Count 4.61 M/mm3 (4.2-5.4)
[2024-11-19 08:52] LABS: Anion Gap 7 (5-15); BUN 14 mg/dL (7-18); BUN/Creat Ratio 13.5 RATIO (10-20); Calcium,Total 9.6 mg/dL (8.5-10.1); Chloride 108 mmol/L (98-107); Creatinine, Serum 1.04 mg/dL (0.55-1.02); EST Glomerular Filtration Rate 56 mL/min (>60); Est Glom Filt Rate - Afr Amer 68 mL/min (>60); Estimated Creatinine Clearance 59.81 ml/min; Glucose 153 mg/dL (74-106); Sodium Level 139 mmol/L (136-145)
--- NOTE | 2024-11-19 10:06 | CON.PCM.CC_ITS ---
Assessment & Plan Assessment/Plan (1) Influenza A: (2) Acute on chronic hypoxic respiratory failure: PLAN: Plan RECOMMENDATIONS: 1. Continue supplemental oxygen to maintain saturations at or above 90%. 2. Given onset of symptoms, the patient is outside of the window for Tamiflu. 3. I agree with continuing scheduled bronchodilators and steroids. 4. Continue gentle diuresis as tolerated by hemodynamics and renal function. 5. CTA chest is pending. 6. Check strep and urine Legionella antigens along with procalcitonin. 7. Initiate aggressive bronchopulmonary hygiene. IMPRESSIONS: 1. Acute on chronic hypoxemic respiratory failure Most likely secondary to COPD exacerbation related to influenza A infection. There was no additional infiltrate noted on chest x-ray at presentation to suggest a secondary bacterial pneumonia. However, CTA chest is currently pending. It is certainly plausible that mucous plugging is contributing to the patient's hypoxemia. Therefore, in addition to continuing scheduled bronchodilators and steroids, will initiate aggressive bronchopulmonary hygiene. The patient, at presentation, was outside of the window for Tamiflu administration. She will be continued on supplemental oxygen to maintain saturations at or above 90%. Continue gentle diuresis as tolerated by hemodynamics and renal function. 2. History of nicotine dependency in remission/hypothyroidism/hypertension/hyperlipidemia/GERD Complicates care, management, recovery and prognosis. Continue home medications as indicated. This note was generated with [employer] dictation software. It may contain incorrect words, spelling, and punctuation that were not noted in checking the note before signing. HPI Consult Data Date of Consult: 11/19/24 HPI Narrative Reason for Consultation: Acute on chronic hypoxemic respiratory failure HPI Narrative: The patient is a 69-year-old female, with a history as outlined below, who presented to the emergency department via EMS on November 17 with progressive dyspnea. The patient reported that her symptoms initially began approximately 1 week ago. She reports associated cough with sputum production. The patient has an extensive tobacco abuse history, having quit completely 3 years ago. She is currently followed in the pulmonary medicine clinic at [facility] due to a history of COPD and chronic hypoxemic respiratory failure with a baseline oxygen requirement of 2 L/min. On presentation to the emergency department, the patient was documented to be afebrile and hemodynamically stable. Laboratory evaluation revealed a normal white blood cell count. Coagulation profile was unremarkable. Chemistry profile was unrevealing. BNP was normal. Influenza A PCR was positive. Chest x-ray demonstrated no acute cardiopulmonary process. Following admission to the hospital, the patient has been maintained on scheduled bronchodilators and IV steroids. Surface echocardiogram completed yesterday demonstrated normal LV size and thickness with an ejection fraction of 65% and a right ventricular systolic pressure estimated to be 36 mmHg. [facility] Medical History (Updated 11/17/24 @ 16:23 by Gabriela West) Wears glasses Post-menopausal Gastric reflux Depression Walker as ambulation aid Arthritis Bladder disease High cholesterol Hx of fracture of wrist Back pain Syncope Loss of consciousness Shortness of breath on exertion Leg cramps History of edema History of echocardiogram History of stress test Cardiology follow-up encounter Dependence on supplemental oxygen Euthyroid sick syndrome Thyroid disorder Chronic hepatitis C without hepatic coma Smoker COPD (chronic obstructive pulmonary disease) Presence of stent in artery H/O cocaine abuse H/O ETOH abuse DVT (deep venous thrombosis) Lumbar herniated disc HTN (hypertension) Alcohol abuse Cocaine abuse Home Medications ?Medication ?Instructions ?Recorded ?Last Taken ?Type albuterol sulfate 90 mcg/actuation 2 puff inhalation Q 4H PRN Wheezing 08/26/20 08/26/20 History aerosol inhaler aspirin 81 mg chewable tablet 81 mg PO DAILY BLOOD FLORECITA T 08/26/20 11/16/24 History atorvastatin 40 mg tablet 40 mg PO DAILY 02/07/2110/31 History furosemide 20 mg tablet 20 mg PO DAILY 10/17/2210/31 History budesonide 160 mcg-glycopyr 9 2 inh inhalation BID 09/2111/16/24 History mcg-formot 4.8 mcg/actuation HFA inhaler (Breztri Aerosphere) diclofenac sodium 1 % topical gel 2 g topical BID PRN pain 02/15/23 11/16/24 History (Voltaren Arthritis Pain) omeprazole 40 mg capsule,delayed 40 mg PO DAILY 11/16/24 History release famotidine 40 mg tablet 40 mg PO QHS 11/17/24 Unknow n History lisinopril 30 mg tablet 30 mg PO DAILY 11/17/2410/31 History methimazole 5 mg tablet 5 mg PO DAILY 11/17/24 Unkno wn History tizanidine 4 mg tablet 4 mg PO Q8 PRN muscle spasms 11/17/24 Unknown History Allergy/AdvReac Type Severity Reaction Status Date / Time No Known Allergies Allergy Verified 11/17/24 11:55 Family History Mother Hypertension Other Alcoholism Surgical History History of rotator cuff surgery H/O vascular surgery Stenosis of artery of left lower extremity Social History household members: none housing: apartment current occupational status: retired Smoking Status: Former smoker how long ago did patient quit smoking: January 2022 alcohol intake: former substance use type: former substance user Date of last use: 03/2020 and crack/cocaine caffeine: Yes Type: carbonated beverages and coffee ROS ROS Narrative 10 systems were reviewed pertinent positives as noted in the HPI above. Physical Exam Const alert, oriented x3 and no apparent distress General Appearance: cooperative HEENT normocephalic and head/scalp atraumatic Eyes PERRL, EOMs intact bilaterally and conjunctivae normal Neck supple General: trachea midline Chest inspection of chest normal Resp normal respiratory effort Auscultation: wheezes and diminished lung sounds Cardio regular rate and regular rhythm GI normal to inspection, nondistended, normoactive bowel sounds Extremity no clubbing, cyanosis or edema Skin no rashes or lesions noted Neuro CN's II-XII intact bilaterally, moves all extremities and no focal motor deficits Psych cooperative and affect normal Lab / Micro Data 11/19/24 07:40 11/19/24 07:40 Labs: Laboratory Results - last 24 hr 11/19/24 07:40: WBC 13.0 H, RBC 4.61, Hgb 13.4, Hct 40.8, MCV 88.5, MCH 29.1, MCHC 32.8, RDW Std Deviation 44.3 H, RDW Coeff of Oleg 13.7, Plt Count 261, MPV 11.8, Immature Gran % (Auto) 1.000 H, Neut % (Auto) 89.3 H, Lymph % (Auto) 7.0 L , [place] % (Auto) 2.5, Eos % (Auto) 0.0, Baso % (Auto) 0.2, Absolute Neuts (auto) 11.6 H, Absolute Lymphs (auto) 0.91, Nucleated RBC % 0, Sodium 139, Potassium 4.0, Chloride 108 H, Carbon Dioxide 24.0, Anion Gap 7, BUN 14, Creatinine 1.04 H , Estim Creat Clear Calc 59.81, Est GFR (MDRD) Af Amer 68, Est GFR (MDRD) Non-Af 56 L, BUN/Creatinine Ratio 13.5, Glucose 153 H, Calcium 9.6 ABG Data ABG results: ABG 11/19/24 07:53 Specimen Type ART Sample Site L Radial pH 7.55 H Bicarbonate Actual 22.1 Total CO2 23 Base Excess 0 O2 Saturation 100 H O2 % 12.0 ABG pCO2 25.4 L ABG pO2 162 H Raheem Test Positive O2 Delivery Device Cannula Vent Mode Not entered Imaging Radiology Impression Echocardiogram 11/17/24 15:58 Interpretation Summary The left ventricular ejection fraction is 65 %. Right ventricular systolic pressure estimated to be 36 mmHg. Aortic sclerosis, no stenosis. Ordering Physician: Stephenie Yu Referring Physician: MOLLY PETERSON Performed By: Gregoria Joseph RDCS Charges/Coding Visit Charges Inpatient E&M: 09582 Init Hosp L3
[2024-11-19] MEDS: Furosemide 20 MG Tablet PO (10:07)
[2024-11-19] MEDS: Lisinopril 20 MG Tablet 30 MG PO (10:07)
[2024-11-19] MEDS: guaiFENesin 600 MG Tablet PO ×2 (10:07→21:56)
[2024-11-19] MEDS: tiZANidine HCl 2 MG Tablet 4 MG PO ×2 (10:07→20:03)
[2024-11-19] MEDS: Potassium Chloride Oral Tablet 10 MEQ PO (10:08)
[2024-11-19] MEDS: Aspirin 81 MG TAB.CHEW PO (10:08)
[2024-11-19] MEDS: Methimazole 5 MG Tablet PO (10:08)
[2024-11-19] MEDS: Pantoprazole Sodium 40 MG Tablet PO (10:08)
[2024-11-19] MEDS: Enoxaparin 40 MG/0.4 ML Syringe SC (10:08)
[2024-11-19] MEDS: Atorvastatin Calcium 40 MG Tablet PO (10:09)
--- NOTE | 2024-11-19 11:39 | PN_ITS ---
Subjective Subjective Patient seen and examined. She says she feels her breathing is worsening. She is up to 8 L and says she was given 1012 L of oxygen overnight. She still have a expiratory wheezing. She states she is not able to cough up and expectorate sputum and feels like the sputum is stuck in her lungs. Review of systems otherwise negative. Objective Data Objective Data Vital Signs: Vital Signs Temp Pulse Resp BP Pulse Ox O2 Del Method O2 Flow Rate 97.8 F 94 20 H 133/86 H 92 High Flow 8 11/19/24 03:56 11/19/24 10:27 11/19/24 10:27 11/19/24 03:56 11/19/24 08:00 11/19/24 10:27 11/19/24 10:27 Oxygen Flow Rate (L/min) 8 Oxygen Delivery Method High Flow Weight: 207 lb 3.752 oz Body Mass Index (BMI) 33.4 Intake & Output: Intake and Output for Last 24 Hours 11/17/24 11/18/24 11/19/24 23:59 23:59 23:59 Intake Total 1120 / 1120 1040 / 1040 Balance 1120 / 1120 1040 / 1040 Lab / Micro Data 11/19/24 07:40 11/19/24 07:40 Labs: Laboratory Results - last 24 hr 11/19/24 07:40: WBC 13.0 H, RBC 4.61, Hgb 13.4, Hct 40.8, MCV 88.5, MCH 29.1, MCHC 32.8, RDW Std Deviation 44.3 H, RDW Coeff of Oleg 13.7, Plt Count 261, MPV 11.8, Immature Gran % (Auto) 1.000 H, Neut % (Auto) 89.3 H, Lymph % (Auto) 7.0 L , [place] % (Auto) 2.5, Eos % (Auto) 0.0, Baso % (Auto) 0.2, Absolute Neuts (auto) 11.6 H, Absolute Lymphs (auto) 0.91, Nucleated RBC % 0, Sodium 139, Potassium 4.0, Chloride 108 H, Carbon Dioxide 24.0, Anion Gap 7, BUN 14, Creatinine 1.04 H , Estim Creat Clear Calc 59.81, Est GFR (MDRD) Af Amer 68, Est GFR (MDRD) Non-Af 56 L, BUN/Creatinine Ratio 13.5, Glucose 153 H, Calcium 9.6 Micro: Microbiology 11/17/24 12:20 Mucosa - Nose SARS-CoV-2, Influenza & RSV (PCR) - Final Influenzae A ABG Data ABG results: ABG 11/19/24 07:53 Specimen Type ART Sample Site L Radial pH 7.55 H Bicarbonate Actual 22.1 Total CO2 23 Base Excess 0 O2 Saturation 100 H O2 % 12.0 ABG pCO2 25.4 L ABG pO2 162 H Raheem Test Positive O2 Delivery Device Cannula Vent Mode Not entered Radiography Diagnostic Testing: Radiology Impression Echocardiogram 11/17/24 15:58 Interpretation Summary The left ventricular ejection fraction is 65 %. Right ventricular systolic pressure estimated to be 36 mmHg. Aortic sclerosis, no stenosis. Ordering Physician: Stephenie Yu Referring Physician: MOLLY PETERSON Performed By: Gregoria Joseph RDCS Physical Exam Const Constitutional Narrative: Alert. In moderate distress due to severe shortness of breath and wheezing as well as coughing. General Appearance: cooperative HEENT normocephalic, head/scalp atraumatic, moist oral mucous membranes and oropharynx normal Eyes PERRL and EOMs intact bilaterally Neck no lymphadenopathy and supple Lymph Lymphatic: no lymphadenopathy noted and no lymphedema noted Resp Resp Narrative: Moderately diminished breath sounds laterally. Coarse crackles in both lung stevens with very audible wheezing. Now on 8 L of oxygen by nasal cannula Cardio regular rate, regular rhythm, S1 normal heart sound, S2 normal heart sound and no murmurs GI normal to inspection, nondistended, normoactive bowel sounds, soft to palpation, non-tender and non-distended Extremity normal capillary refill, no clubbing, cyanosis or edema and no calf tenderness General Extremity: no tenderness to palpation of joints or extremities Skin General Skin Exam: no breakdown Neuro CN's II-XII intact bilaterally, no focal motor deficits, no sensory deficits noted and deep tendon reflexes 2+ bilaterally Motor Exam: strength 5/5 throughout and general weakness Psych thought process normal, cooperative and affect normal Appearance: appropriate Assessment & Plan Assessment/Plan (1) Influenza A: (2) Acute on chronic hypoxic respiratory failure: (3) Type 2 acute myocardial infarction: PLAN: Plan #Acute on chronic hypoxic respiratory failure due to COPD exacerbation and influenza infection * now up to 8L of oxygen. Feels very short of breath still * not a candidate for tamiflu * on IV solumedrol and breathing treatment with bronchodilators * titrate oxygen to maintain sats>90% * breathing treatment with bronchodilators * on robitussin * will start on IV lasix today to help with fluid overload. Check BNP * pulmonology consulted. Will get CTA chest also * order chest physiotherapy * start IV levofloxacin to cover for any superimposed bacterial pneumonia. # #Syncope * complained of nausea, vomiting and diarrhea whilst at home. * She also complained of dizziness, which may have been due to volume depletion from her nausea, vomiting and diarrhea. She did have a slight elevation in her troponin, * being gently hydrated with IVF * fall precautions. * EKG showed acute ST changes in lateral leads which is not new. * 2D echo showed EF of 65% with normal diastole, and right ventricular systolic pressure of 36 mmHg. * #Hypokalemia: resolved. K is 4 today. #GERD: on PPI #Hypertension: on lisinopril. #Hyperlipidemia: on statin #Hyperthyroidism: on methimazole DVT prophylaxis: lovenox Charges/Coding Visit Charges Inpatient E&M: 21897 Subs Hosp L3
--- NOTE | 2024-11-19 11:43 | CT_ITS ---
PROCEDURE: CTA CHEST W/WO CONTRAST REASON FOR EXAM: Acute on chronic hypoxic respiratory failure. TECHNIQUE: CTA imaging of the chest with intravenous contrast. 3D reconstructions. CONTRAST: 75 mL of Isovue-300. COMPARISON: Comparison is made with prior chest radiograph dated on November 17, 2024. FINDINGS: Hardware: None. Lymph nodes: No mediastinal hilar or axillary lymphadenopathy. Heart: Normal heart size. No pericardial effusion. Coronary artery calcification. RV/LV Diameter Ratio: N/A Thoracic Aorta: No thoracic aortic aneurysm or dissection. Pulmonary Vessels: No evidence of acute pulmonary emboli through the major subsegmental branches. Most Proximal Level of Embolus (if embolus present): N/A Lungs and Airways: Hyperinflation. Emphysematous changes. There is volume loss in the right middle lobe with findings suggestive of scarring. There is evidence of scarring in the lingula segment of the left upper lobe as well as in the lower lobes more prominent on the right side. Pleura: No pleural effusion. No pneumothorax. Upper Abdomen: Visualized portions of the upper abdominal viscera are unremarkable. Bones: Degenerative changes of the thoracic spine. CT/CTA Chest W/WO Contrast IMPRESSION: No evidence of pulmonary embolism. Scarring in the right upper lobe as well as lingular segment of the left upper lobe in both lung bases worse on the right side. One or more dose reduction techniques were used (e.g., Automated exposure contr ol, adjustment of the mA and/or kV according to patient size, use of iterative reconstruction technique). Reading Location: [id number]
[2024-11-19] MEDS: levoFLOXacin IV 750 MG/150 ML BAG 100 MG IV (12:49)
[2024-11-19 13:58] LABS: Procalcitonin 0.05 ng/mL (0.00-0.09)
[2024-11-19] MEDS: Furosemide 40 MG/4 ML Vial IV (17:20)
[2024-11-19] MEDS: Acetaminophen 325 MG Tablet 650 MG PO (20:03)
[2024-11-19] MEDS: Arthritis Pain Compound 60 CLICK TUBE TOPICAL (20:03)
[2024-11-19] MEDS: Famotidine 20 MG Tablet 40 MG PO (21:56)
[2024-11-20] VITALS (9 sets, daily range): BP systolic 122–144; BP diastolic 67–91; PULSE 72–119; RESP 17–26; TEMP 36–36.4; O2SAT 94–99; BMI 34.0
[2024-11-20] MEDS: Senna/Docusate Sodium 1 Tablet 2 TABLET PO ×2 (02:39→21:39)
[2024-11-20] MEDS: Ipratropium/Albuterol Sulfate 3 ML AMPUL.NEB INHALATION ×3 (03:07→11:27)
[2024-11-20] MEDS: 0.9% Saline Lock 10 ML Syringe IV ×2 (05:14→10:01)
[2024-11-20] MEDS: BMX LIQUID 180 ML 10 ML PO (05:19)
[2024-11-20 05:29] LABS: Absolute Lymphocyte Count 0.87 X10^3/uL (0.83-4.51); Absolute Neutrophil Count 8.9 X10^3/uL (2.0-7.7); Basophil# 0.02 X10^3/uL; Basophil% 0.2 % (0-1); Hematocrit 42.9 % (37-47); Lymphocyte # 0.87 X10^3/ul (0.83-4.51); Lymphocyte % 8.5 % (19-41); Mean Corp Hgb Conc 32.6 g/dL (32-36); Mean Corpuscular Hgb 28.7 pg (27.0-32.0); Mean Corpuscular Volume 88.1 fL (81-99); Mean Platelet Vol. 10.7 fl (6.2-12.0); Monocyte# 0.25 X10^3/uL; Monocyte% 2.4 % (0-10); NRBC Flagged by Analyzer 0 % (0-5); Neutrophil # 8.94 X10^3/uL (2.7-7.7); Neutrophil % 87.4 % (47-70); Platelet Count 289 K/mm3 (150-450); RBC Distribution Width CV 13.8 % (11.6-14.6); RBC Distribution Width SD 44.6 fl (35.1-43.9); Red Blood Count 4.87 M/mm3 (4.2-5.4); White Blood Count 10.2 K/mm3 (4.4-11.0)
[2024-11-20 05:39] LABS: Anion Gap 6 (5-15); BUN 19 mg/dL (7-18); BUN/Creat Ratio 16.4 RATIO (10-20); Calcium,Total 9.7 mg/dL (8.5-10.1); Chloride 102 mmol/L (98-107); Creatinine, Serum 1.16 mg/dL (0.55-1.02); EST Glomerular Filtration Rate 49 mL/min (>60); Est Glom Filt Rate - Afr Amer 60 mL/min (>60); Estimated Creatinine Clearance 53.62 ml/min; Glucose 135 mg/dL (74-106); Potassium 4.3 mmol/L (3.5-5.1); Sodium Level 138 mmol/L (136-145)
--- NOTE | 2024-11-20 09:35 | PCM.PN.INT ---
Assessment & Plan Assessment/Plan (1) Influenza A: (2) Acute on chronic hypoxic respiratory failure: PLAN: Plan RECOMMENDATIONS: 1. Continue supplemental oxygen to maintain saturations at or above 90%. 2. Given onset of symptoms, the patient is outside of the window for Tamiflu. 3. Continue scheduled bronchodilators and steroids. 4. Continue gentle diuresis as tolerated by hemodynamics and renal function. 5. Continue empiric antimicrobials. 6. Continue aggressive bronchopulmonary hygiene. IMPRESSIONS: 1. Acute on chronic hypoxemic respiratory failure Most likely secondary to COPD exacerbation related to influenza A infection. There was no additional infiltrate noted on chest x-ray at presentation to suggest a secondary bacterial pneumonia. CTA chest ruled out pulmonary embolism. It is certainly plausible that mucous plugging is contributing to the patient's increased oxygen demand. At her baseline, the patient requires 2 L/min of supplemental oxygen. For now, the patient will be continued on scheduled bronchodilators, steroids, antimicrobials and aggressive bronchopulmonary hygiene. The patient, at presentation, was outside of the window for Tamiflu administration. I agree with continuing gentle diuresis as tolerated by hemodynamics and renal function. Overall, the patient's oxygen requirement is improved from yesterday. 2. History of nicotine dependency in remission/hypothyroidism/hypertension/hyperlipidemia/GERD Complicates care, management, recovery and prognosis. Continue home medications as indicated. This note was generated with [employer] dictation software. It may contain incorrect words, spelling, and punctuation that were not noted in checking the note before signing. Subjective Subjective The patient was seen and examined at the bedside this morning. Events from the last 24 hours have been reviewed. The patient is currently afebrile, hemodynamically stable and maintaining appropriate oxygen saturations on 3 L/min via nasal cannula. White blood cell count is normal this morning. Creatinine is stable at 1.16. Procalcitonin was normal. CTA imaging completed yesterday was reviewed. No PE was identified. The patient continues to have a nonproductive cough with associated chest discomfort. Objective Data Objective Data The patient's most recent lab work, culture data and imaging studies have all been personally reviewed. Influenza A PCR was positive on November 17. Strep and urine Legionella antigens were negative. Surface echocardiogram revealed an ejection fraction of 65% with a right ventricular systolic pressure of 36 mmHg. Vital Signs: Vital Signs Temp Pulse Resp BP Pulse Ox O2 Del Method O2 Flow Rate 97.3 F L 105 H 18 144/91 H 94 Nasal Cannula 3 11/20/24 03:55 11/20/24 07:25 11/20/24 07:25 11/20/24 03:55 11/20/24 07:25 11/20/24 07:25 11/20/24 07: Oxygen Flow Rate (L/min) 3 Oxygen Delivery Method Nasal Cannula Weight: 210 lb 12.191 oz Body Mass Index (BMI) 34.0 Intake & Output: Intake and Output for Last 24 Hours 11/18/24 11/19/24 11/20/24 23:59 23:59 23:59 Intake Total 1040 / 1040 150 / 390 480 / 480 Output Total 1200 / 2300 1100 / 1100 Balance 1040 / 1040 -1050 / -1910 -620 / -620 Lab / Micro Data Attestation: I reviewed the patient's lab results. 11/20/24 05:03 11/20/24 05:03 Labs: Laboratory Results - last 24 hr 11/19/24 07:40: Procalcitonin 0.05 11/20/24 05:03: WBC 10.2, RBC 4.87, Hgb 14.0, Hct 42.9, MCV 88.1, MCH 28.7, MCHC 32.6, RDW Std Deviation 44.6 H, RDW Coeff of Oleg 13.8, Plt Count 289, MPV 10.7, Immature Gran % (Auto) 1.500 H, Neut % (Auto) 87.4 H, Lymph % (Auto) 8.5 L, [place] % (Auto) 2.4, Eos % (Auto) 0.0, Baso % (Auto) 0.2, Absolute Neuts (auto) 8.9 H, Absolute Lymphs (auto) 0.87, Nucleated RBC % 0, Sodium 138, Potassium 4.3, Chloride 102, Carbon Dioxide 29.0, Anion Gap 6, BUN 19 H, Creatinine 1.16 H, Estim Creat Clear Calc 53.62, Est GFR (MDRD) Af Amer 60, Est GFR (MDRD) Non-Af 49 L, BUN/Creatinine Ratio 16.4, Glucose 135 H, Calcium 9.7 Micro: Microbiology 11/19/24 14:15 Urine, Clean Catch Legionella Antigen - Final 11/19/24 14:15 Urine, Clean Catch Streptococcus pneumoniae Antigen (M - Final 11/17/24 12:20 Mucosa - Nose SARS-CoV-2, Influenza & RSV (PCR) - Final Influenzae A Radiography Diagnostic Testing: Radiology Impression Chest CTA 11/19/24 11:43 IMPRESSION: No evidence of pulmonary embolism. Scarring in the right upper lobe as well as lingular segment of the left upper lobe in both lung bases worse on the right side. One or more dose reduction techniques were used (e.g., Automated exposure control, adjustment of the mA and/or kV according to patient size, use of iterative reconstruction technique). Reading Location: [facility] Physical Exam Const alert and oriented x3 General Appearance: cooperative HEENT normocephalic, head/scalp atraumatic and moist oral mucous membranes Eyes PERRL, EOMs intact bilaterally and conjunctivae normal Neck supple General: trachea midline Chest inspection of chest normal Resp normal respiratory effort Effort and Inspection: actively coughing Auscultation: wheezes and diminished lung sounds Cardio regular rate and regular rhythm GI normal to inspection, nondistended, normoactive bowel sounds Extremity no clubbing, cyanosis or edema Skin no rashes or lesions noted Neuro CN's II-XII intact bilaterally, moves all extremities and no focal motor deficits Psych cooperative and affect normal Charges/Coding Visit Charges Inpatient E&M: 37806 Subs Hosp L2
[2024-11-20] MEDS: Aspirin 81 MG TAB.CHEW PO (09:55)
[2024-11-20] MEDS: Potassium Chloride Oral Tablet 10 MEQ PO (09:55)
[2024-11-20] MEDS: Atorvastatin Calcium 40 MG Tablet PO (10:01)
[2024-11-20] MEDS: Enoxaparin 40 MG/0.4 ML Syringe SC (10:01)
[2024-11-20] MEDS: Lisinopril 20 MG Tablet 30 MG PO (10:01)
[2024-11-20] MEDS: levoFLOXacin IV 750 MG/150 ML BAG 100 MG IV (10:03)
[2024-11-20] MEDS: Furosemide 40 MG/4 ML Vial IV ×2 (10:03→18:21)
[2024-11-20] MEDS: Pantoprazole Sodium 40 MG Tablet PO (10:03)
[2024-11-20] MEDS: guaiFENesin 600 MG Tablet PO ×2 (10:03→21:39)
[2024-11-20] MEDS: Methimazole 5 MG Tablet PO (10:03)
--- NOTE | 2024-11-20 10:48 | PN_ITS ---
Subjective Subjective Paitent seen and examined. She still complained of coughing and shortness of breath. Review of systems is otherwise negative. SHe is down to 3L of oxygen from 8L yesterday. Objective Data Objective Data Vital Signs: Vital Signs Temp Pulse Resp BP Pulse Ox O2 Del Method O2 Flow Rate 97.3 F L 105 H 18 144/91 H 94 Nasal Cannula 3 11/20/24 03:55 11/20/24 07:25 11/20/24 07:25 11/20/24 03:55 11/20/24 07:25 11/20/24 07:25 11/20/24 07:25 Oxygen Flow Rate (L/min) 3 Oxygen Delivery Method Nasal Cannula Weight: 210 lb 12.191 oz Body Mass Index (BMI) 34.0 Intake & Output: Intake and Output for Last 24 Hours 11/18/24 11/19/24 11/20/24 23:59 23:59 23:59 Intake Total 1040 / 1040 150 / 390 480 / 480 Output Total 1200 / 2300 1100 / 1100 Balance 1040 / 1040 -1050 / -1910 -620 / -620 Lab / Micro Data 11/20/24 05:03 11/20/24 05:03 Labs: Laboratory Results - last 24 hr 11/19/24 07:40: Procalcitonin 0.05 11/20/24 05:03: WBC 10.2, RBC 4.87, Hgb 14.0, Hct 42.9, MCV 88.1, MCH 28.7, MCHC 32.6, RDW Std Deviation 44.6 H, RDW Coeff of Oleg 13.8, Plt Count 289, MPV 10.7, Immature Gran % (Auto) 1.500 H, Neut % (Auto) 87.4 H, Lymph % (Auto) 8.5 L, [place] % (Auto) 2.4, Eos % (Auto) 0.0, Baso % (Auto) 0.2, Absolute Neuts (auto) 8.9 H, Absolute Lymphs (auto) 0.87, Nucleated RBC % 0, Sodium 138, Potassium 4.3, Chloride 102, Carbon Dioxide 29.0, Anion Gap 6, BUN 19 H, Creatinine 1.16 H, Estim Creat Clear Calc 53.62, Est GFR (MDRD) Af Amer 60, Est GFR (MDRD) Non-Af 49 L, BUN/Creatinine Ratio 16.4, Glucose 135 H, Calcium 9.7 Micro: Microbiology 11/19/24 14:15 Urine, Clean Catch Legionella Antigen - Final 11/19/24 14:15 Urine, Clean Catch Streptococcus pneumoniae Antigen (M - Final 11/17/24 12:20 Mucosa - Nose SARS-CoV-2, Influenza & RSV (PCR) - Final Influenzae A Radiography Diagnostic Testing: Radiology Impression Chest CTA 11/19/24 11:43 IMPRESSION: No evidence of pulmonary embolism. Scarring in the right upper lobe as well as lingular segment of the left upper lobe in both lung bases worse on the right side. One or more dose reduction techniques were used (e.g., Automated exposure control, adjustment of the mA and/or kV according to patient size, use of iterative reconstruction technique). Reading Location: [facility] Physical Exam Const alert and oriented x3 General Appearance: cooperative HEENT normocephalic, head/scalp atraumatic, moist oral mucous membranes and oropharynx normal Eyes PERRL and EOMs intact bilaterally Neck no lymphadenopathy and supple Lymph Lymphatic: no lymphadenopathy noted and no lymphedema noted Resp Resp Narrative: Moderately diminished breath sounds laterally. Coarse crackles in both lung stevens with very audible wheezing. Now down to 3L of oxygen by nasal canula Cardio regular rate, regular rhythm, S1 normal heart sound, S2 normal heart sound and no murmurs GI normal to inspection, nondistended, normoactive bowel sounds, soft to palpation, non-tender and non-distended Extremity normal capillary refill, no clubbing, cyanosis or edema and no calf tenderness General Extremity: no tenderness to palpation of joints or extremities Skin General Skin Exam: no breakdown Neuro CN's II-XII intact bilaterally, no focal motor deficits, no sensory deficits noted and deep tendon reflexes 2+ bilaterally Motor Exam: strength 5/5 throughout and general weakness Psych thought process normal, cooperative and affect normal Appearance: appropriate Assessment & Plan Assessment/Plan (1) Influenza A: (2) Acute on chronic hypoxic respiratory failure: (3) Type 2 acute myocardial infarction: PLAN: Plan #Acute on chronic hypoxic respiratory failure due to COPD exacerbation and influenza infection * now down to 3L of oxygen. * not a candidate for tamiflu * on IV solumedrol and breathing treatment with bronchodilators * titrate oxygen to maintain sats>90% * breathing treatment with bronchodilators * on robitussin * continue diuresis with IV lasix * pulmonology on board * CTA chest showed no evidence of PE and showed scarring in the right upper lobe as well as lingular segment of the left upper lobe in both lung bases wrse on he right side. * on IV levofloxacin to cover for any superimposed bacterial pneumonia. # #Syncope * complained of nausea, vomiting and diarrhea whilst at home. * She also complained of dizziness, which may have been due to volume depletion from her nausea, vomiting and diarrhea. She did have a slight elevation in her troponin, * being gently hydrated with IVF * fall precautions. * EKG showed acute ST changes in lateral leads which is not new. * 2D echo showed EF of 65% with normal diastole, and right ventricular systolic pressure of 36 mmHg. * #Hypokalemia: resolved. #GERD: on PPI #Hypertension: on lisinopril. #Hyperlipidemia: on statin #Hyperthyroidism: on methimazole DVT prophylaxis: lovenox Charges/Coding Visit Charges Inpatient E&M: 18922 Subs Hosp L2
[2024-11-20] MEDS: tiZANidine HCl 2 MG Tablet 4 MG PO ×2 (11:47→21:39)
[2024-11-20] MEDS: Famotidine 20 MG Tablet 40 MG PO (21:39)
[2024-11-20] MEDS: Acetaminophen 325 MG Tablet 650 MG PO (21:39)
[2024-11-21 03:25] VITALS: BP 162/83; PULSE 89; RESP 16; TEMP 36.7; O2SAT 94
[2024-11-21 04:38] VITALS: BMI 33.0
[2024-11-21] MEDS: Acetaminophen 325 MG Tablet 650 MG PO ×2 (04:59→14:55)
[2024-11-21] MEDS: tiZANidine HCl 2 MG Tablet 4 MG PO ×2 (05:09→14:54)
[2024-11-21 07:20] VITALS: PULSE 104; RESP 20; O2SAT 95
[2024-11-21] MEDS: Ipratropium 0.5 MG/2.5 ML SOLUTION INHALATION ×2 (07:20→13:19)
[2024-11-21 08:31] VITALS: BP 131/85; PULSE 80; RESP 18; TEMP 36.6; O2SAT 95
[2024-11-21 08:31] LABS: Absolute Lymphocyte Count 1.11 X10^3/uL (0.83-4.51); Basophil# 0.02 X10^3/uL; Basophil% 0.2 % (0-1); Hematocrit 44.5 % (37-47); Hemoglobin 14.5 g/dL (12.0-15.0); Lymphocyte # 1.11 X10^3/ul (0.83-4.51); Mean Corp Hgb Conc 32.6 g/dL (32-36); Mean Corpuscular Hgb 28.9 pg (27.0-32.0); Mean Corpuscular Volume 88.6 fL (81-99); Mean Platelet Vol. 10.6 fl (6.2-12.0); Monocyte# 0.33 X10^3/uL; Monocyte% 3.9 % (0-10); NRBC Flagged by Analyzer 0 % (0-5); Neutrophil # 7.02 X10^3/uL (2.7-7.7); Neutrophil % 81.8 % (47-70); Platelet Count 321 K/mm3 (150-450); RBC Distribution Width CV 13.8 % (11.6-14.6); RBC Distribution Width SD 44.8 fl (35.1-43.9); Red Blood Count 5.02 M/mm3 (4.2-5.4); White Blood Count 8.6 K/mm3 (4.4-11.0)
[2024-11-21] MEDS: levoFLOXacin IV 750 MG/150 ML BAG 100 MG IV (08:33)
[2024-11-21] MEDS: Enoxaparin 40 MG/0.4 ML Syringe SC (08:36)
[2024-11-21] MEDS: Furosemide 40 MG/4 ML Vial IV ×2 (08:36→17:10)
[2024-11-21] MEDS: Lisinopril 20 MG Tablet 30 MG PO (08:37)
[2024-11-21] MEDS: Aspirin 81 MG TAB.CHEW PO (08:37)
[2024-11-21] MEDS: Potassium Chloride Oral Tablet 10 MEQ PO (08:37)
[2024-11-21] MEDS: Methimazole 5 MG Tablet PO (08:37)
[2024-11-21] MEDS: Pantoprazole Sodium 40 MG Tablet PO (08:37)
[2024-11-21] MEDS: guaiFENesin 600 MG Tablet PO ×2 (08:38→20:43)
[2024-11-21] MEDS: Atorvastatin Calcium 40 MG Tablet PO (08:38)
[2024-11-21 09:01] LABS: Anion Gap 9 (5-15); BUN 26 mg/dL (7-18); BUN/Creat Ratio 20.8 RATIO (10-20); Calcium,Total 9.4 mg/dL (8.5-10.1); Chloride 102 mmol/L (98-107); Creatinine, Serum 1.25 mg/dL (0.55-1.02); EST Glomerular Filtration Rate 45 mL/min (>60); Est Glom Filt Rate - Afr Amer 55 mL/min (>60); Estimated Creatinine Clearance 49.49 ml/min; Glucose 129 mg/dL (74-106); Potassium 4.4 mmol/L (3.5-5.1); Sodium Level 137 mmol/L (136-145)
--- NOTE | 2024-11-21 11:33 | PN_ITS ---
Subjective Subjective Patient seen and examined. She is feeling so much better. She feels her breathing has improved. She is down to 2 to 3 L of oxygen. She is denying any chest pain but still admits to the cough. She denies any lightheadedness or dizziness or any other symptoms. Review of systems otherwise negative. Objective Data Objective Data Vital Signs: Vital Signs Temp Pulse Resp BP Pulse Ox O2 Del Method O2 Flow Rate 97.8 F 80 18 131/85 H 95 Nasal Cannula 3 11/21/24 08:31 11/21/24 08:31 11/21/24 08:31 11/21/24 08:31 11/21/24 08:31 11/21/24 10:00 11/21/24 10:00 Oxygen Flow Rate (L/min) 3 Oxygen Delivery Method Nasal Cannula Weight: 205 lb 0.478 oz Body Mass Index (BMI) 33.0 Intake & Output: Intake and Output for Last 24 Hours 11/19/24 11/20/24 11/21/24 23:59 23:59 23:59 Intake Total 150 / 390 630 / 630 390 / 390 Output Total 1200 / 2300 2600 / 2600 250 / 250 Balance -1050 / -1910 -1969 / -1969 140 / 140 Lab / Micro Data 11/21/24 08:10 11/21/24 08:10 Labs: Laboratory Results - last 24 hr 11/21/24 08:10: WBC 8.6, RBC 5.02, Hgb 14.5, Hct 44.5, MCV 88.6, MCH 28.9, MCHC 32.6, RDW Std Deviation 44.8 H, RDW Coeff of Oleg 13.8, Plt Count 321, MPV 10.6, Immature Gran % (Auto) 1.100 H, Neut % (Auto) 81.8 H, Lymph % (Auto) 13.0 L, [place] % (Auto) 3.9, Eos % (Auto) 0.0, Baso % (Auto) 0.2, Absolute Neuts (auto) 7.0, Absolute Lymphs (auto) 1.11, Nucleated RBC % 0, Sodium 137, Potassium 4.4, Chloride 102, Carbon Dioxide 26.0, Anion Gap 9, BUN 26 H, Creatinine 1.25 H, Estim Creat Clear Calc 49.49, Est GFR (MDRD) Af Amer 55 L, Est GFR (MDRD) Non-Af 45 L, BUN/Creatinine Ratio 20.8 H, Glucose 129 H, Calcium 9.4 Micro: Microbiology 11/19/24 14:15 Urine, Clean Catch Legionella Antigen - Final 11/19/24 14:15 Urine, Clean Catch Streptococcus pneumoniae Antigen (M - Final 11/17/24 12:20 Mucosa - Nose SARS-CoV-2, Influenza & RSV (PCR) - Final Influenzae A Physical Exam Const alert and oriented x3 Constitutional Narrative: Alert. In moderate distress due to severe shortness of breath and wheezing as well as coughing. General Appearance: cooperative HEENT normocephalic, head/scalp atraumatic, moist oral mucous membranes and oropharynx normal Eyes PERRL and EOMs intact bilaterally Neck no lymphadenopathy and supple Lymph Lymphatic: no lymphadenopathy noted and no lymphedema noted Resp Resp Narrative: Moderately diminished breath sounds laterally. wheezing is improving. Few crackles. On 2-3L of oxygen by nasal canula Cardio regular rate, regular rhythm, S1 normal heart sound, S2 normal heart sound and no murmurs GI normal to inspection, nondistended, normoactive bowel sounds, soft to palpation, non-tender and non-distended Extremity normal capillary refill, no clubbing, cyanosis or edema and no calf tenderness General Extremity: no tenderness to palpation of joints or extremities Skin General Skin Exam: no breakdown Neuro CN's II-XII intact bilaterally, no focal motor deficits, no sensory deficits noted and deep tendon reflexes 2+ bilaterally Motor Exam: strength 5/5 throughout and general weakness Psych thought process normal, cooperative and affect normal Appearance: appropriate Assessment & Plan Assessment/Plan (1) Influenza A: (2) Acute on chronic hypoxic respiratory failure: (3) Type 2 acute myocardial infarction: PLAN: Plan #Acute on chronic hypoxic respiratory failure due to COPD exacerbation and influenza infection * on 2-3L of oxygen. Has improved markedly. * not a candidate for tamiflu * on IV solumedrol and breathing treatment with bronchodilators * titrate oxygen to maintain sats>90% * breathing treatment with bronchodilators * on robitussin * continue diuresis with IV lasix * pulmonology on board * CTA chest showed no evidence of PE and showed scarring in the right upper lobe as well as lingular segment of the left upper lobe in both lung bases worse on he right side. * on IV levofloxacin to cover for any superimposed bacterial pneumonia. * urine for strep and legionella negative # #Syncope * complained of nausea, vomiting and diarrhea whilst at home. * She also complained of dizziness, which may have been due to volume depletion from her nausea, vomiting and diarrhea. She did have a slight elevation in her troponin, * being gently hydrated with IVF * fall precautions. * EKG showed acute ST changes in lateral leads which is not new. * 2D echo showed EF of 65% with normal diastole, and right ventricular systolic pressure of 36 mmHg. * #Hypokalemia: resolved. #GERD: on PPI #Hypertension: on lisinopril. #Hyperlipidemia: on statin #Hyperthyroidism: on methimazole DVT prophylaxis: lovenox Disposition: For likely DC tomorrow. Patient states she does not want to be discharged and was to be discharged tomorrow because that is when her daughter will have time to pick her up. Charges/Coding Visit Charges Inpatient E&M: 58557 Subs Hosp L2
[2024-11-21 13:19] VITALS: PULSE 101; RESP 20
[2024-11-21 15:24] VITALS: BP 116/82; PULSE 79; RESP 18; TEMP 36.3; O2SAT 96
[2024-11-21] MEDS: Mag Hydrox/Al Hydrox/Simeth 30 ML UDC 15 ML PO (20:43)
[2024-11-21] MEDS: 0.9% Saline Lock 10 ML Syringe IV (20:44)
[2024-11-21] MEDS: Famotidine 20 MG Tablet 40 MG PO (20:44)
[2024-11-21] MEDS: MELATONIN 3 MG TABLET PO (20:45)
[2024-11-21 21:00] VITALS: BP 133/80; PULSE 78; RESP 18; TEMP 36.1; O2SAT 100
[2024-11-22] VITALS (7 sets, daily range): BP systolic 116–136; BP diastolic 64–90; PULSE 66–99; RESP 17–18; TEMP 36–36.6; O2SAT 94–100; BMI 33.0
[2024-11-22] MEDS: tiZANidine HCl 2 MG Tablet 4 MG PO (03:26)
[2024-11-22] MEDS: Acetaminophen 325 MG Tablet 650 MG PO (03:27)
[2024-11-22 05:15] LABS: Absolute Lymphocyte Count 1.19 X10^3/uL (0.83-4.51); Absolute Neutrophil Count 7.9 X10^3/uL (2.0-7.7); Basophil# 0.03 X10^3/uL; Basophil% 0.3 % (0-1); Hematocrit 45.4 % (37-47); Hemoglobin 14.8 g/dL (12.0-15.0); Lymphocyte # 1.19 X10^3/ul (0.83-4.51); Lymphocyte % 12.1 % (19-41); Mean Corp Hgb Conc 32.6 g/dL (32-36); Mean Corpuscular Hgb 28.7 pg (27.0-32.0); Mean Corpuscular Volume 88.2 fL (81-99); Monocyte# 0.58 X10^3/uL; Monocyte% 5.9 % (0-10); NRBC Flagged by Analyzer 0 % (0-5); Neutrophil # 7.88 X10^3/uL (2.7-7.7); Neutrophil % 80.3 % (47-70); Platelet Count 346 K/mm3 (150-450); RBC Distribution Width CV 13.7 % (11.6-14.6); RBC Distribution Width SD 44.1 fl (35.1-43.9); Red Blood Count 5.15 M/mm3 (4.2-5.4); White Blood Count 9.8 K/mm3 (4.4-11.0)
[2024-11-22 05:32] LABS: Anion Gap 11 (5-15); BUN 39 mg/dL (7-18); BUN/Creat Ratio 26.9 RATIO (10-20); Chloride 100 mmol/L (98-107); Creatinine, Serum 1.45 mg/dL (0.55-1.02); EST Glomerular Filtration Rate 38 mL/min (>60); Est Glom Filt Rate - Afr Amer 46 mL/min (>60); Estimated Creatinine Clearance 42.59 ml/min; Glucose 172 mg/dL (74-106); Potassium 4.7 mmol/L (3.5-5.1); Sodium Level 137 mmol/L (136-145)
[2024-11-22] MEDS: 0.9% Saline Lock 10 ML Syringe IV ×2 (05:42→11:44)
[2024-11-22] MEDS: Mag Hydrox/Al Hydrox/Simeth 30 ML UDC 15 ML PO (05:45)
[2024-11-22] MEDS: Ipratropium 0.5 MG/2.5 ML SOLUTION INHALATION ×2 (07:15→19:33)
[2024-11-22] MEDS: Potassium Chloride Oral Tablet 10 MEQ PO (09:06)
[2024-11-22] MEDS: Aspirin 81 MG TAB.CHEW PO (09:06)
[2024-11-22] MEDS: Atorvastatin Calcium 40 MG Tablet PO (11:01)
[2024-11-22] MEDS: Methimazole 5 MG Tablet PO (11:01)
[2024-11-22] MEDS: Lisinopril 20 MG Tablet 30 MG PO (11:02)
[2024-11-22] MEDS: Pantoprazole Sodium 40 MG Tablet PO (11:02)
[2024-11-22] MEDS: Enoxaparin 40 MG/0.4 ML Syringe SC (11:03)
[2024-11-22] MEDS: guaiFENesin 600 MG Tablet PO ×2 (11:04→21:04)
[2024-11-22] MEDS: levoFLOXacin IV 750 MG/150 ML BAG 100 MG IV (11:14)
[2024-11-22] MEDS: Furosemide 40 MG/4 ML Vial IV (11:44)
--- NOTE | 2024-11-22 14:04 | PN_ITS ---
Subjective Subjective Patient seen and examined. She says she is having chest pain and does not feel comfortable going home today. The chest pain that she had been having throughout this admission was always pleuritic in associated with the coughing but today she tells me still assisted with the coughing. She still coughing though. Review of systems otherwise negative. Objective Data Objective Data Vital Signs: Vital Signs Temp Pulse Resp BP Pulse Ox O2 Del Method O2 Flow Rate 97.8 F 66 17 121/84 H 100 Nasal Cannula 2 11/22/24 08:55 11/22/24 08:55 11/22/24 08:55 11/22/24 08:55 11/22/24 08:55 11/22/24 10:00 11/22/24 10:00 Oxygen Flow Rate (L/min) 2 Oxygen Delivery Method Nasal Cannula Weight: 204 lb 5.896 oz Body Mass Index (BMI) 33.0 Intake & Output: Intake and Output for Last 24 Hours 11/20/24 11/21/24 11/22/24 23:59 23:59 23:59 Intake Total 630 / 630 1190 / 1430 810 / 810 Output Total 2600 / 2600 1150 / 1350 550 / 550 Balance -1969 / -1969 40 / 80 260 / 260 Lab / Micro Data 11/22/24 04:15 11/22/24 04:15 Labs: Laboratory Results - last 24 hr 11/22/24 04:15: WBC 9.8, RBC 5.15, Hgb 14.8, Hct 45.4, MCV 88.2, MCH 28.7, MCHC 32.6, RDW Std Deviation 44.1 H, RDW Coeff of Oleg 13.7, Plt Count 346, MPV 11.0, Immature Gran % (Auto) 1.400 H, Neut % (Auto) 80.3 H, Lymph % (Auto) 12.1 L, [place] % (Auto) 5.9, Eos % (Auto) 0.0, Baso % (Auto) 0.3, Absolute Neuts (auto) 7.9 H, Absolute Lymphs (auto) 1.19, Nucleated RBC % 0, Sodium 137, Potassium 4.7, Chloride 100, Carbon Dioxide 26.0, Anion Gap 11, BUN 39 H, Creatinine 1.45 H, Estim Creat Clear Calc 42.59, Est GFR (MDRD) Af Amer 46 L, Est GFR (MDRD) Non-Af 38 L, BUN/Creatinine Ratio 26.9 H, Glucose 172 H, Calcium 9.0 Micro: Microbiology 11/19/24 14:15 Urine, Clean Catch Legionella Antigen - Final 11/19/24 14:15 Urine, Clean Catch Streptococcus pneumoniae Antigen (M - Final 11/17/24 12:20 Mucosa - Nose SARS-CoV-2, Influenza & RSV (PCR) - Final Influenzae A Physical Exam Const alert and oriented x3 General Appearance: cooperative HEENT normocephalic, head/scalp atraumatic, moist oral mucous membranes and oropharynx normal Eyes PERRL and EOMs intact bilaterally Neck no lymphadenopathy and supple Lymph Lymphatic: no lymphadenopathy noted and no lymphedema noted Resp Resp Narrative: mildly diminished breath sounds bilaterally, no wheezes or crackles. On 2L of oxygen by nasal canula Cardio regular rate, regular rhythm, S1 normal heart sound, S2 normal heart sound and no murmurs GI normal to inspection, nondistended, normoactive bowel sounds, soft to palpation, non-tender and non-distended Extremity normal capillary refill, no clubbing, cyanosis or edema and no calf tenderness General Extremity: no tenderness to palpation of joints or extremities Skin General Skin Exam: no breakdown Neuro CN's II-XII intact bilaterally, no focal motor deficits, no sensory deficits noted and deep tendon reflexes 2+ bilaterally Motor Exam: strength 5/5 throughout and general weakness Psych thought process normal, cooperative and affect normal Appearance: appropriate Assessment & Plan Assessment/Plan (1) Influenza A: (2) Acute on chronic hypoxic respiratory failure: (3) Type 2 acute myocardial infarction: PLAN: Plan #Acute on chronic hypoxic respiratory failure due to COPD exacerbation and influenza infection * on 2 L of oxygen. Has improved markedly. * not a candidate for tamiflu * on IV solumedrol and breathing treatment with bronchodilators * titrate oxygen to maintain sats>90% * breathing treatment with bronchodilators * on robitussin * switch IV solumedrol to PO prednisone and IV lasix to PO lasix * pulmonology on board * CTA chest showed no evidence of PE and showed scarring in the right upper lobe as well as lingular segment of the left upper lobe in both lung bases worse on he right side. * on IV levofloxacin to cover for any superimposed bacterial pneumonia. * urine for strep and legionella negative * now complaining of chest pain. EKG showed no acute ST change. Will get stress test for tomorrow. Echo as below * patient requesting nebuliser on dc # #Syncope * complained of nausea, vomiting and diarrhea whilst at home. * She also complained of dizziness, which may have been due to volume depletion from her nausea, vomiting and diarrhea. She did have a slight elevation in her troponin, * fall precautions. * EKG showed acute ST changes in lateral leads which is not new. * 2D echo showed EF of 65% with normal diastole, and right ventricular systolic pressure of 36 mmHg. * still complaining of chest pain, though I think it is pleuritic, will get stress test for tomorrow. * #Hypokalemia: resolved. #GERD: on PPI #Hypertension: on lisinopril. #Hyperlipidemia: on statin #Hyperthyroidism: on methimazole DVT prophylaxis: lovenox Disposition: dc tomorrow after stress test. Charges/Coding Visit Charges Inpatient E&M: 13623 Subs Hosp L2
[2024-11-22] MEDS: Famotidine 20 MG Tablet 40 MG PO (21:04)
[2024-11-23 03:11] VITALS: BMI 33.0
--- NOTE | 2024-11-23 05:30 | EKG12_ITS ---
Test Reason : am ekg/cp Blood Pressure : */* mmHG Vent. Rate : 74 BPM Atrial Rate : 74 BPM P-R Int : 122 ms QRS Dur : 84 ms QT Int : 366 ms P-R-T Axes : 78 78 76 degrees QTcB Int : 406 ms Sinus rhythm with occasional Premature ventricular complexes T wave abnormality, consider anterolateral ischemia Abnormal ECG Confirmed by Amrik Weber ([id number]), editor map JUSTYN TURPIN ([id number]) on 11/23/2024 10:37:36 AM Referred By: Confirmed By: Amrik Weber
[2024-11-23 05:35] VITALS: BP 134/94; PULSE 75; RESP 18; TEMP 36.4; O2SAT 99
[2024-11-23] MEDS: Aspirin 81 MG TAB.CHEW PO (05:38)
[2024-11-23] MEDS: Mag Hydrox/Al Hydrox/Simeth 30 ML UDC 15 ML PO (05:38)
[2024-11-23] MEDS: levoFLOXacin 750 MG Tablet PO (05:39)
[2024-11-23] MEDS: Lisinopril 20 MG Tablet 30 MG PO (05:39)
[2024-11-23 05:52] LABS: Absolute Lymphocyte Count 2.32 X10^3/uL (0.83-4.51); Absolute Neutrophil Count 7.1 X10^3/uL (2.0-7.7); Basophil# 0.03 X10^3/uL; Basophil% 0.3 % (0-1); Eosinophil# 0.01 X10^3/uL; Eosinophils% 0.1 % (0-5); Hematocrit 46.5 % (37-47); Hemoglobin 14.8 g/dL (12.0-15.0); Lymphocyte # 2.32 X10^3/ul (0.83-4.51); Lymphocyte % 22.2 % (19-41); Mean Corp Hgb Conc 31.8 g/dL (32-36); Mean Corpuscular Hgb 28.2 pg (27.0-32.0); Mean Corpuscular Volume 88.6 fL (81-99); Mean Platelet Vol. 10.5 fl (6.2-12.0); Monocyte# 0.87 X10^3/uL; Monocyte% 8.3 % (0-10); NRBC Flagged by Analyzer 0 % (0-5); Neutrophil # 7.09 X10^3/uL (2.7-7.7); Neutrophil % 67.8 % (47-70); Platelet Count 346 K/mm3 (150-450); RBC Distribution Width CV 13.8 % (11.6-14.6); RBC Distribution Width SD 44.6 fl (35.1-43.9); Red Blood Count 5.25 M/mm3 (4.2-5.4); White Blood Count 10.5 K/mm3 (4.4-11.0)
[2024-11-23 06:27] LABS: Anion Gap 7 (5-15); BUN 33 mg/dL (7-18); BUN/Creat Ratio 28.2 RATIO (10-20); Chloride 103 mmol/L (98-107); Creatinine, Serum 1.17 mg/dL (0.55-1.02); EST Glomerular Filtration Rate 49 mL/min (>60); Est Glom Filt Rate - Afr Amer 59 mL/min (>60); Estimated Creatinine Clearance 52.87 ml/min; Glucose 113 mg/dL (74-106); Potassium 4.5 mmol/L (3.5-5.1); Sodium Level 136 mmol/L (136-145)
[2024-11-23 07:19] VITALS: PULSE 80; RESP 18; O2SAT 93
[2024-11-23] MEDS: Ipratropium 0.5 MG/2.5 ML SOLUTION INHALATION ×2 (07:19→13:05)
[2024-11-23] MEDS: Methimazole 5 MG Tablet PO (09:56)
[2024-11-23] MEDS: Pantoprazole Sodium 40 MG Tablet PO (09:56)
[2024-11-23] MEDS: predniSONE 20 MG Tablet 40 MG PO (09:57)
[2024-11-23] MEDS: guaiFENesin 600 MG Tablet PO (10:00)
[2024-11-23] MEDS: Furosemide 20 MG Tablet PO (10:00)
[2024-11-23 10:30] VITALS: BP 120/65; PULSE 91; RESP 16; TEMP 36.2; O2SAT 100
--- NOTE | 2024-11-23 13:27 | STRESSREP ---
Stress Test Report Date: 11/23/2024 Procedure: Pharmacologic stress nuclear imaging study Indications: Chest pain Consent: Per the patient Procedure: The patient underwent pharmacologic (Regadenoson) evaluation with a peak heart rate of 100 beats per minute (65%predicted maximal heart rate) and a peak blood pressure of 118/80 mmHg. The baseline ECG demonstrated normal sinus rhythm, nonspecific ST-T changes. EKG during lexiscan infusion revealed no significant ischemic changes. EKG post infusion revealed no significant ischemic changes [There were no cardiac dysrhythmias pretest, during pharmacologic infusion, or recovery]. [There was no complaint of chest discomfort during pharmacologic infusion or recovery]. The examination was discontinued secondary to completion of protocol. Impression: 1. Lexiscan stress test test is negative for Lexiscan infusion induced EKG changes of ischemia. 2. Lexiscan stress test test is negative for Lexiscan infusion induced chest pain. 3. Results of the nuclear portion of the test is as below Myocardial perfusion imaging study: Technique: The patient was injected with 14.5 millicuries of technetium 99m Cardiolite and subsequently rest SPECT Cardiolite nuclear imaging was obtained in the horizontal long, vertical long, and short axis views. The patient underwent pharmacologic [Regadenoson 0.4mg] evaluation. Please see above for details. The patient was injected with 44.6 millicuries of technetium 99m Cardiolite and subsequently stress SPECT Cardiolite nuclear imaging was obtained in the horizontal long, vertical long, and short axis views. A gated Cardiolite study at peak stress was obtained. Interpretation: Rest and stress SPECT Cardiolite nuclear imaging status post realignment, normalization, and attenuation correction demonstrate no evidence of significant ischemia or infarction. Gated images reveal no significant regional wall motion abnormalities. The reported LVEF is greater than 70%. Impression: 1. There is no evidence of significant ischemia or infarction. 2. Estimated ejection fraction is greater than 70%. This note was generated with [email or web address] software. It may contain incorrect words, spelling, and punctuation that were not noted in checking the note before signing.
[2024-11-23 13:57] VITALS: PULSE 78; RESP 18
--- NOTE | 2024-11-23 14:52 | DCINST_ITS ---
Discharge Instructions Diet Discharge Diet: - (DASH diet) DC O2, CPAP, BIPAP needs Home O2 Discharge instructions: Yes Type of respiratory needs?: Oxygen Oxygen frequency: Continuous Continuous oxygen liters per minute: 2 Dressing / Incision Discharge Activity: - (Increase activity as tolerated) Follow Up Care Test Results: Test results from this visit will be discussed in further detail at your follow- up appointment, if applicable. Discharge Plan Admission Admit Date/Time: 11/17/24 14:58 Primary Reason for Your Visit: Shortness of breath Attending Provider: Stephenie Yu Primary Care Provider: Leonie Castillo Consulting Providers: Stephenie Yu; Ben Alvarado; Antwon Ferreira; Jose Rosa; Zeyad Espinoza; Darryl Evans; Heladio Paige; Nelson Interiano; Maria M Ochoa; Sebastian Kimble; Kd Corral; Kvng Vizcaino; Niyah Mejia; Sean Cisneros; Fela Smith; Kane Knox; Vishnu Herrera; Eladio Garcia; Lion Khan; Dianna Shah; Murali Arceo; Jorje Dixon; Gustavo Bal; Devante Stoddard; Rita Kenny Instructions Patient Instructions: ED Influenza (Adult) Additional Instructions / Restrictions: DISCHARGE INSTRUCTIONS PLEASE READ *Please take this with you to your next doctors appointment* -You were admitted for influenza and pneumonia -you will be discharged on 2 more days of levofloxacin and 4 more days of prednisone, the scripts were sent to your preferred pharmacy on file, drug [place] -Please call your primary care provider's office upon discharge to schedule a hospital follow up within 1 week. -For any concerning signs or symptoms please call 911 or proceed to the nearest emergency department Discharge Orders/Prescriptions Prescriptions: New prednisone 20 mg Tablet 40 mg PO BREAKFAST 4 Days Qty: 8 0RF Rx Instructions: first dose 11/24/24 levofloxacin 750 mg Tablet 750 mg PO DAILY 2 Days Qty: 2 0RF Rx Instructions: first dose 11/24/24 Continued furosemide 20 mg tablet 20 mg PO DAILY Breztri Aerosphere 160-9-4.8 mcg/actuation HFA aerosol inhaler 2 inh inhalation BID diclofenac sodium [Voltaren Arthritis Pain] 1 % gel 2 g topical BID PRN (Reason: pain) Rx Instructions: apply to single elbow, wrist or hand; for hand includes palm/fingers/back of hand aspirin 81 MG tablet,chewable 81 mg PO DAILY albuterol sulfate 18 GM HFA aerosol inhaler 2 puff inhalation Q4H PRN (Reason: Wheezing) Patient Comments: Inhale 2 Puffs as instructed every 4 hours as needed. atorvastatin 40 mg tablet 40 mg PO DAILY omeprazole 40 mg capsule,delayed release(DR/EC) 40 mg PO DAILY lisinopril 30 mg tablet 30 mg PO DAILY famotidine 40 mg tablet 40 mg PO QHS methimazole 5 mg tablet 5 mg PO DAILY tizanidine 4 mg tablet 4 mg PO Q8 PRN (Reason: muscle spasms) Referrals / Follow Up: Leonie Castillo MD [Primary Care Provider] - In 1 Week Disposition Disposition (needs filled in before D/C Order can be placed): Home, Self Care
--- NOTE | 2024-11-23 14:58 | DS.PCM_ITS ---
Providers Date of Admission: 11/17/24 Date of Discharge: 11/23/24 Primary Care Physician: Dr. Leonie Castillo MD Consultations 11/19/24 09:34 Consult: Bar Supervisor / Pulmonary Medicine Routine Consulting Provider: Intensivists/Pulmonary Med Reason for Consult: acute on chronic hypoxic resp failure EMERGENT Consult: No MD Notified: Yes Date Notified: 11/19/24 Time Notified: 09:34 Method of Notification: Verbal Reason For Visit: ACUTE ON CHRONIC RESPIRATORY FAILURE/2ND TO FLU Diagnosis Discharge Diagnosis (1) Influenza A: Status: Acute Code(s): J10.1 - Influenza due to other identified influenza virus with other respiratory manifestations (2) Acute on chronic hypoxic respiratory failure: Status: Chronic Code(s): J96.21 - Acute and chronic respiratory failure with hypoxia (3) Type 2 acute myocardial infarction: Status: Acute Code(s): I21.A1 - Myocardial infarction type 2 Plan #Acute exacerbation of COPD secondary to influenza A on top of chronic hypoxic respiratory failure on 2 L O2 # Concern for superimposed bacterial pneumonia # Syncopal episode at home-suspect secondary to dehydration, did not recur # Elevated troponin-suspect secondary to patient's underlying respiratory distress on arrival #GERD #Hypertension Medications at Discharge Home Medications albuterol sulfate 90 mcg/actuation aerosol inhaler 2 puff inhalation Q4H PRN Wheezing 08/26/20 aspirin 81 mg chewable tablet 81 mg PO DAILY BLOOD CLOT 08/26/20 atorvastatin 40 mg tablet 40 mg PO DAILY 02/07/21 furosemide 20 mg tablet 20 mg PO DAILY 10/17/22 budesonide 160 mcg-glycopyr 9 mcg-formot 4.8 mcg/actuation HFA inhaler (Breztri Aerosphere) 2 inh inhalation BID 02/08/23 diclofenac sodium 1 % topical gel (Voltaren Arthritis Pain) 2 g topical BID PRN pain 02/15/23 omeprazole 40 mg capsule,delayed release 40 mg PO DAILY 04/27/24 famotidine 40 mg tablet 40 mg PO QHS 11/17/24 lisinopril 30 mg tablet 30 mg PO DAILY 11/17/24 methimazole 5 mg tablet 5 mg PO DAILY 11/17/24 tizanidine 4 mg tablet 4 mg PO Q8 PRN muscle spasms 11/17/24 albuterol sulfate 2.5 mg/3 mL (0.083 %) solution for nebulization 2.5 mg (3 mL) inhalation Q2H PRN PRN SOB &/OR WHEEZING #90 mL 11/23/24 ipratropium bromide 0.02 % solution for inhalation 0.5 mg (2.5 mL) inhalation Q6HWA.RT #75 mL 11/23/24 levofloxacin 750 mg tablet 750 mg PO DAILY 2 days #2 tabs 11/23/24 prednisone 20 mg tablet 40 mg (2 x 20 mg) PO BREAKFAST 4 days #8 tabs 11/23/24 Hospital Course Procedures Transthoracic echo Summary of Care Provided Minutes Spent on Discharge: 25 Hospital Course: INDIRA HOLLINGSWORTH, is a 69-year-old female history of COPD on 2 L nasal cannula chronically, GERD, hep C who presented [facility] ED 09/16/2025 due to shortness of breath for several days, saw her PCP and was 84% on 2 L of O2 and brought to the ED. Patient influenza A positive but outside the window of Tamiflu and also seem to be in a COPD exacerbation, patient treated for COPD exacerbation but did continue to have poor respiratory status so she had CTA which showed no PE but some scarring, she also had IV Levaquin added for possible superimposed bacterial pneumonia. Patient ultimately did improve from respiratory status and was stable for discharge home. Of note patient the day before discharge complained that she had been having some chest pain so she had a stress test on the day of discharge which was within normal limits, also had an echocardiogram 11/18/2024 with no acute abnormalities noted. On day of discharge patient denies any chest pain, breathing is much better than on arrival. Patient feels comfortable going home and was discharged home on 2 more days of Levaquin for 1 days of prednisone as well as with DME for nebulizers Physical Exam Narrative General: Alert, oriented, no apparent distress HEENT: Atraumatic, normocephalic Eyes: Anicteric, normal conjunctiva, extraocular movements grossly intact Neck: Supple Respiratory: Normal respiratory effort, no overt wheezes or rhonchi Cardiovascular: Regular rate GI: Soft, nontender, nondistended Extremities: No edema Musculoskeletal: Moving all extremities Neuro: No overt focal neurological deficits Skin: No rashes appreciated Psych: Cooperative Weight / BMI Weight Weight: 93 kg Body Mass Index (BMI) 33.0 ABG / Lab / Microbiology Data 11/23/24 05:22 11/23/24 05:22 Laboratory: Laboratory Results - last 24 hr 11/23/24 05:22: WBC 10.5, RBC 5.25, Hgb 14.8, Hct 46.5, MCV 88.6, MCH 28.2, MCHC 31.8 L, RDW Std Deviation 44.6 H, RDW Coeff of Oleg 13.8, Plt Count 346, MPV 10.5, Immature Gran % (Auto) 1.300 H, Neut % (Auto) 67.8, Lymph % (Auto) 22.2, [place] % (Auto) 8.3, Eos % (Auto) 0.1, Baso % (Auto) 0.3, Absolute Neuts (auto) 7.1, Absolute Lymphs (auto) 2.32, Nucleated RBC % 0, Sodium 136, Potassium 4.5, Chloride 103, Carbon Dioxide 26.0, Anion Gap 7, BUN 33 H, Creatinine 1.17 H, Estim Creat Clear Calc 52.87, Est GFR (MDRD) Af Amer 59 L, Est GFR (MDRD) Non-Af 49 L, BUN/Creatinine Ratio 28.2 H, Glucose 113 H, Calcium 9.0 Microbiology: Microbiology 11/19/24 14:15 Urine, Clean Catch Legionella Antigen - Final 11/19/24 14:15 Urine, Clean Catch Streptococcus pneumoniae Antigen (M - Final 11/17/24 12:20 Mucosa - Nose SARS-CoV-2, Influenza & RSV (PCR) - Final Influenzae A D/C Instructions Discharge Diet: - (DASH diet) DC O2, CPAP, BIPAP Needs Home O2 Discharge instructions: Yes Type of respiratory needs?: Oxygen Oxygen frequency: Continuous Continuous oxygen liters per minute: 2 DC home with Oxygen: Yes Home O2 MD Review: I have reviewed the oxygen testing, and the patient qualifies for home oxygen equipment and portability. The patient is mobile in the home and the community. Meaningful Use Info Meaningful Use Meaningful Use Diagnoses (Choose all that apply): None applicable Ischemic Stroke Statin Dosing Therapy Reference: STATIN DOSE THERAPY REFERENCE: * Patients > 75 years receive moderate or high dose statin therapy. * Patients 75 years or YOUNGER should receive HIGH intensity statin dose unless contraindicated. You will be required to document reason for non-treatment if statin daily dose does not meet guidelines. HIGH DOSE STATIN THERAPY DAILY Atorvastatin > than or = to 40 mg Rosuvastatin > than or = to 20 mg Amlodipine + Atorvastatin > than or = to 2.5/40 mg Ezetimibe + Simvastatin 10/80 mg Simvastatin 80mg Discharge Plan Admission Admit Date/Time: 11/17/24 14:58 Primary Reason for Your Visit: Shortness of breath Attending Provider: Stephenie Yu Primary Care Provider: Leonie Castillo Consulting Providers: Stephenie Yu; Ben Alvarado; Antwon Ferreira; Jose Rosa; Zeyad Espinoza; Darryl Evans; Heladio Paige; Nelson Interiano; Maria M Ochoa; Sebastian Kimble; Kd Corral; Kvng Vizcaino; Niyah Mejia; Sean Cisneros; Fela Smith; Kane Knox; Vishnu Herrera; Eladio Garcia; Lion Khan; Dianna Shah; Murali Arceo; Jorje Dixon; Gustavo Bal; Devante Stoddard; Rita Kenny Instructions Patient Instructions: ED Influenza (Adult) Additional Instructions / Restrictions: DISCHARGE INSTRUCTIONS PLEASE READ *Please take this with you to your next doctors appointment* -You were admitted for influenza and pneumonia -you will be discharged on 2 more days of levofloxacin and 4 more days of prednisone, the scripts were sent to your preferred pharmacy on file, drug [place] -Please call your primary care provider's office upon discharge to schedule a hospital follow up within 1 week. -For any concerning signs or symptoms please call 911 or proceed to the nearest emergency department Discharge Orders/Prescriptions Prescriptions: New prednisone 20 mg Tablet 40 mg PO BREAKFAST 4 Days Qty: 8 0RF Rx Instructions: first dose 11/24/24 levofloxacin 750 mg Tablet 750 mg PO DAILY 2 Days Qty: 2 0RF Rx Instructions: first dose 11/24/24 ipratropium bromide 0.02 % Solution 0.5 mg inhalation Q6HWA.RT Qty: 75 0RF albuterol sulfate 2.5 mg /3 mL (0.083 %) Solution For Nebulization 2.5 mg inhalation Q2H PRN PRN (Reason: SOB &/OR WHEEZING) Qty: 90 0RF Continued furosemide 20 mg tablet 20 mg PO DAILY Gary Aerosphere 160-9-4.8 mcg/actuation HFA aerosol inhaler 2 inh inhalation BID diclofenac sodium [Voltaren Arthritis Pain] 1 % gel 2 g topical BID PRN (Reason: pain) Rx Instructions: apply to single elbow, wrist or hand; for hand includes palm/fingers/back of hand aspirin 81 MG tablet,chewable 81 mg PO DAILY albuterol sulfate 18 GM HFA aerosol inhaler 2 puff inhalation Q4H PRN (Reason: Wheezing) Patient Comments: Inhale 2 Puffs as instructed every 4 hours as needed. atorvastatin 40 mg tablet 40 mg PO DAILY omeprazole 40 mg capsule,delayed release(DR/EC) 40 mg PO DAILY lisinopril 30 mg tablet 30 mg PO DAILY famotidine 40 mg tablet 40 mg PO QHS methimazole 5 mg tablet 5 mg PO DAILY tizanidine 4 mg tablet 4 mg PO Q8 PRN (Reason: muscle spasms) Referrals / Follow Up: Leonie Castillo MD [Primary Care Provider] - In 1 Week Disposition Disposition (needs filled in before D/C Order can be placed): Home, Self Care Charges/Coding Visit Charges Inpatient E&M: 93200 Disch Hosp
[2024-11-23 15:18] VITALS: O2SAT 94; O2SAT 98
--- NOTE | 2024-11-23 15:22 | DCINST_ITS ---
Discharge Instructions Diet Discharge Diet: - (DASH diet) DC O2, CPAP, BIPAP needs Home O2 Discharge instructions: Yes Type of respiratory needs?: Oxygen Oxygen frequency: Continuous Continuous oxygen liters per minute: 2 Follow Up Care Test Results: Test results from this visit will be discussed in further detail at your follow- up appointment, if applicable. Discharge Plan Admission Admit Date/Time: 11/17/24 14:58 Primary Reason for Your Visit: Shortness of breath Attending Provider: Stephenie Yu Primary Care Provider: Leonie Castillo Consulting Providers: Stephenie Yu; Ben Alvarado; Antwon Ferreira; Jose Rosa; Zeyad Espinoza; Darryl Evans; Heladio Paige; Nelson Interiano; Maria M Ochoa; Sebastian Kimble; Kd Corral; Kvng Vizcaino; Niyah Mejia; Sean Cisneros; Fela Smith; Kane Knox; Vishnu Herrera; Eladio Garcia; Lion Khan; Dianna Shah; Murali Arceo; Jorje Dixon; Gustavo Bal; Devante Stoddard; Rita Kenny Instructions Patient Instructions: ED Influenza (Adult) Additional Instructions / Restrictions: DISCHARGE INSTRUCTIONS PLEASE READ *Please take this with you to your next doctors appointment* -You were admitted for influenza and pneumonia -you will be discharged on 2 more days of levofloxacin and 4 more days of p rednisone, the scripts were sent to your preferred pharmacy on file, drug [place] -Please call your primary care provider's office upon discharge to schedule a hospital follow up within 1 week. -For any concerning signs or symptoms please call 911 or proceed to the nearest emergency department Discharge Orders/Prescriptions Prescriptions: New prednisone 20 mg Tablet 40 mg PO BREAKFAST 4 Days Qty: 8 0RF Rx Instructions: first dose 11/24/24 levofloxacin 750 mg Tablet 750 mg PO DAILY 2 Days Qty: 2 0RF Rx Instructions: first dose 11/24/24 ipratropium bromide 0.02 % Solution 0.5 mg inhalation Q6HWA.RT Qty: 75 0RF albuterol sulfate 2.5 mg /3 mL (0.083 %) Solution For Nebulization 2.5 mg inhalation Q2H PRN PRN (Reason: SOB &/OR WHEEZING) Qty: 90 0RF Continued furosemide 20 mg tablet 20 mg PO DAILY Breztri Aerosphere 160-9-4.8 mcg/actuation HFA aerosol inhaler 2 inh inhalation BID diclofenac sodium [Voltaren Arthritis Pain] 1 % gel 2 g topical BID PRN (Reason: pain) Rx Instructions: apply to single elbow, wrist or hand; for hand includes palm/fingers/back of hand aspirin 81 MG tablet,chewable 81 mg PO DAILY albuterol sulfate 18 GM HFA aerosol inhaler 2 puff inhalation Q4H PRN (Reason: Wheezing) Patient Comments: Inhale 2 Puffs as instructed every 4 hours as needed. atorvastatin 40 mg tablet 40 mg PO DAILY omeprazole 40 mg capsule,delayed release(DR/EC) 40 mg PO DAILY lisinopril 30 mg tablet 30 mg PO DAILY famotidine 40 mg tablet 40 mg PO QHS methimazole 5 mg tablet 5 mg PO DAILY tizanidine 4 mg tablet 4 mg PO Q8 PRN (Reason: muscle spasms) Referrals / Follow Up: Leonie Castillo MD [Primary Care Provider] - In 1 Week Disposition Disposition (needs filled in before D/C Order can be placed): Home, Self Care
--- NOTE | 2024-11-23 15:32 | CASEMGMT ---
Patient has order for discharge. Script received for nebulizer. CHARMAINE VALENCIA in to discuss needs at discharge. Patient states she would like nebulizer sent to [facility]. Patient has portable oxygen for at discharge. Patient denies needs or help at discharge. Patient had no further questions or concerns. CHARMAINE VALENCIA sent referral to [facility] via [facility] and arranged for delivery of nebulizer to patient's room. CHARMAINE VALENCIA updated discharge plan.
--- NOTE | 2024-11-23 15:54 | PHA.DC_ITS ---
Pharmacy [facility] has performed discharge medication reconciliation and counseling for this patient. 1. IPRATROPIUM NEBULIZED SOLUTION 0.5MG Q6HWA.RT 2. LEVOFLOXACIN 750MG PO DAILY X 2 DOSES 3. PREDNISONE 40MG PO DAILYCM X 4 DAYS The patient's discharge medication list was reviewed for discrepancies and discrepancies were resolved. The patient was counseled on the following discharge medications and changes in medications for homegoing were reviewed. The Reason for Use, instructions for use, and potential side effects were reviewed for all new medications. The patient's questions regarding all of their medications were answered. The patient was able to verbally demonstrate an understanding of their discharge medications. Medications at Discharge Home Medications albuterol sulfate 90 mcg/actuation aerosol inhaler 2 puff inhalation Q4H PRN Wheezing 08/26/20 aspirin 81 mg chewable tablet 81 mg PO DAILY BLOOD CLOT 08/26/20 atorvastatin 40 mg tablet 40 mg PO DAILY 02/07/21 furosemide 20 mg tablet 20 mg PO DAILY 10/17/22 budesonide 160 mcg-glycopyr 9 mcg-formot 4.8 mcg/actuation HFA inhaler (Breztri Aerosphere) 2 inh inhalation BID 02/08/23 diclofenac sodium 1 % topical gel (Voltaren Arthritis Pain) 2 g topical BID PRN pain 02/15/23 omeprazole 40 mg capsule,delayed release 40 mg PO DAILY 04/27/24 famotidine 40 mg tablet 40 mg PO QHS 11/17/24 lisinopril 30 mg tablet 30 mg PO DAILY 11/17/24 methimazole 5 mg tablet 5 mg PO DAILY 11/17/24 tizanidine 4 mg tablet 4 mg PO Q8 PRN muscle spasms 11/17/24 albuterol sulfate 2.5 mg/3 mL (0.083 %) solution for nebulization 2.5 mg (3 mL) inhalation Q2H PRN PRN SOB &/OR WHEEZING #90 mL 11/23/24 ipratropium bromide 0.02 % solution for inhalation 0.5 mg (2.5 mL) inhalation Q6HWA.RT #75 mL 11/23/24 levofloxacin 750 mg tablet 750 mg PO DAILY 2 days #2 tabs 11/23/24 prednisone 20 mg tablet 40 mg (2 x 20 mg) PO BREAKFAST 4 days #8 tabs 11/23/24
[2024-11-23 17:05] VITALS: BP 115/71; PULSE 86; RESP 20; TEMP 36.3; O2SAT 99
== END 2024-11-23 19:02 | disposition home or self-care (01) | DRG 190 ==
LOC: ED 13:57 → PCU 11-18 07:15
PROVIDERS: Internal Medicine Critical Care Medicine; Student in an Organized Health Care Education/Training Program; Admitting Provider Internal Medicine; Emergency Provider Emergency Medicine; PCP Internal Medicine; Visit Provider Internal Medicine
DX: J44.1 Chronic obstructive pulmonary disease with (acute) exacerbation (principal); J96.21 Acute and chronic respiratory failure with hypoxia; I21.A1 Myocardial infarction type 2; J15.9 Unspecified bacterial pneumonia; I10 Essential (primary) hypertension; E05.90 Thyrotoxicosis, unspecified without thyrotoxic crisis or storm; E78.00 Pure hypercholesterolemia, unspecified; K21.9 Gastro-esophageal reflux disease without esophagitis; J10.1 Influenza due to other identified influenza virus with other respiratory manifestations; E87.6 Hypokalemia; Z99.81 Dependence on supplemental oxygen; Z86.718 Personal history of other venous thrombosis and embolism; Z87.891 Personal history of nicotine dependence; R55 Syncope and collapse; Z79.82 Long term (current) use of aspirin; Z79.899 Other long term (current) drug therapy; Z79.51 Long term (current) use of inhaled steroids; R79.89 Other specified abnormal findings of blood chemistry; R07.9 Chest pain, unspecified
CPT/HCPCS: 36415; 36600; 71046; 71275; 78452; 80048; 82803; 83880; 84145; 84484; 85025; 85610; 85730; 87449; 87631; 93005; 93017; 93306; 94640; 94667; 94668; 97116; 97162; 97166; 97530; 99285; A9500; Q9957; Q9967; A4216; C8929; J1940; J2785

== ENCOUNTER 2024-12-11 15:44 | Emergency (ER) | payer MEDICARE, MEDICAID, SELFPAY ==
[2024-12-11 15:44] VITALS: BP 151/101; PULSE 101; RESP 20; TEMP 36.3; O2SAT 100
[2024-12-11 15:46] VITALS: BMI 33.7
[2024-12-11 16:30] VITALS: O2SAT 98
--- NOTE | 2024-12-11 16:30 | EKG12_ITS ---
Test Reason : ABN LABS Blood Pressure : */* mmHG Vent. Rate : 86 BPM Atrial Rate : 86 BPM P-R Int : 134 ms QRS Dur : 72 ms QT Int : 324 ms P-R-T Axes : 72 78 83 degrees QTcB Int : 387 ms Normal sinus rhythm Nonspecific T wave abnormality Abnormal ECG Confirmed by NNAMDI CORTÉS, JOEL ([id number]), editorial project manager JUSTYN TURPIN ([id number]) on 12/14/2024 10:57:23 AM Referred By: Confirmed By: JOEL COTO MD
--- NOTE | 2024-12-11 16:34 | EX.ED.DYSGE1 ---
HPI History of Present Illness Chief Complaint: Abn Labs Informant: patient Onset/Context/Timing Onset: Days Context: Gradual Onset Timing: Continuous Current Severity: Mild Maximum Severity: Mild Narrative Narrative: 69-year-old female history of prior MO, hep C, COPD, hypertension, prior lower extremity DVT. Currently not on blood thinners besides aspirin. Had a hospitalization last month for influenza. Followed up with her primary care provider and nurse practitioner today at the office. Had an elevated D-dimer for atypical right-sided chest pain and was sent to the emergency department for further evaluation. Patient describes discomfort in her right upper chest. Mild shortness of breath. No hemoptysis. No fever. No exertional chest pain or left-sided chest pain. Prior similar symptoms: No Recent Illness/Hospitalization: Yes PFSH PFS Medical History Type 2 acute myocardial infarction Wears glasses Post-menopausal Gastric reflux Depression Walker as ambulation aid Arthritis Bladder disease High cholesterol Hx of fracture of wrist Back pain Syncope Loss of consciousness Shortness of breath on exertion Leg cramps History of edema History of echocardiogram History of stress test Cardiology follow-up encounter Dependence on supplemental oxygen Euthyroid sick syndrome Thyroid disorder Chronic hepatitis C without hepatic coma Smoker COPD (chronic obstructive pulmonary disease) Presence of stent in artery H/O cocaine abuse H/O ETOH abuse DVT (deep venous thrombosis) Lumbar herniated disc HTN (hypertension) Alcohol abuse Cocaine abuse Home Medications ?Medication ?Instructions ?Recorded ?Last Taken ?Type albuterol sulfate 90 mcg/actuation 2 puff inhalation Q4H PRN Wheezing 08/26/20 08/26/20 History aerosol inhaler aspirin 81 mg chewable tablet 81 mg PO DAILY BLOOD CLOT 08/26/20 11/16/24 History atorvastatin 40 mg tablet 40 mg PO DAILY 02/07/21 11/16/24 History furosemide 20 mg tablet 20 mg PO DAILY 10/17/22 11/16/24 History budesonide 160 mcg-glycopyr 9 2 inh inhalation BID 02/08/23 11/16/24 History mcg-formot 4.8 mcg/actuation HFA inhaler (Breztri Aerosphere) diclofenac sodium 1 % topical gel 2 g topical BID PRN pain 02/15/23 11/16/24 History (Voltaren Arthritis Pain) omeprazole 40 mg capsule,delayed 40 mg PO DAILY 04/27/24 11/16/24 History release famotidine 40 mg tablet 40 mg PO QHS 11/17/24 Unknown History lisinopril 30 mg tablet 30 mg PO DAILY 11/17/24 11/16/24 History methimazole 5 mg tablet 5 mg PO DAILY 11/17/24 Unknown History tizanidine 4 mg tablet 4 mg PO Q8 PRN muscle spasms 11/17/24 Unknown History albuterol sulfate 2.5 mg/3 mL 2.5 mg (3 mL) inhalation Q2H PRN 11/23/24 Unknown Rx (0.083 %) solution for nebulization PRN SOB &/OR WHEEZING #90 mL ipratropium bromide 0.02 % 0.5 mg (2.5 mL) inhalation 11/23/24 Unknown Rx solution for inhalation Q6HWA.RT #75 mL levofloxacin 750 mg tablet 750 mg PO DAILY 2 days #2 tabs 11/23/24 Unknown Rx prednisone 20 mg tablet 40 mg (2 x 20 mg) PO BREAKFAST 4 11/23/24 Unknown Rx days #8 tabs Allergy/AdvReac Type Severity Reaction Status Date / Time No Known Allergies Allergy Verified 12/11/24 15:46 Family History Mother Hypertension Other Alcoholism Surgical History History of rotator cuff surgery H/O vascular surgery Stenosis of artery of left lower extremity Social History household members: none housing: apartment current occupational status: retired Smoking Status: Former smoker how long ago did patient quit smoking: January 2022 alcohol intake: former substance use type: former substance user Date of last use: 03/2020 and crack/cocaine caffeine: Yes Type: carbonated beverages and coffee ROS ROS ED ROS Narrative Right upper chest wall pain. Mild shortness of breath. Constitutional Constitutional ED: Denies chills or fever(s) Eyes Eyes: Denies blurry vision ENT ENT ED: Denies ear pain Cardiovascular Cardiovascular: Reports chest pain Respiratory/Chest Respiratory/Chest: Reports dyspnea; Denies cough or dyspnea on exertion Gastrointestinal Gastrointestinal: Denies abdominal pain Genitourinary Genitourinary ED: Denies dysuria or hematuria Musculoskeletal Musculoskeletal: Denies arthralgias or back pain Integumentary Denies abscess or Abrasions Neurologic Neurologic: Denies headache(s) Psychiatric Psychiatric: Denies anxiety or depression Endocrine Endocrinology: Denies cold intolerance Hematologic/Lymphatic Hematologic/Lymphatic: Reports none Allergic/Immunologic Allergic/Immunologic ED: Denies mouth swelling, tongue swelling or urticaria EXAM Physical Exam Narrative Exam Narrative: 69-year-old female sitting upright in bed. Vital signs are stable afebrile. Pulse ox 100% on room air no hypoxia. No distress. H EENT exam unremarkable. Pupils round reactive light. Moist mucous membranes. Neck nontender no JVD. No lymphadenopathy. Lungs clear to auscultation bilaterally. Heart regular rhythm rate about 100 no murmur. Chest wall left chest wall nontender right upper chest wall mild reproducible tenderness. No ecchymosis or bruising. No subcu air crepitus. No signs of trauma. Ribs nontender. Abdomen soft nontender. Moving all 4 extremities. 5 out of 5 automation qa lead strength. Equal symmetrical radial pulses. Dorsi plantarflexion intact. Calves nontender without edema or cords. Neurologically she is awake and alert no focal motor deficits. Back nontender. Const Vital Signs: 12/11/24 15:44 12/11/24 16:30 12/11/24 16:44 Temperature 97.4 F L Temperature Source Oral Pulse Rate 101 H 91 Respiratory Rate 20 H 16 Respiratory Effort Respiratory Pattern Blood Pressure 151/101 H 168/108 H Blood Pressure Mean 117 128 Pulse Ox 100 98 96 Oxygen Delivery Method Room Air Nasal Cannula Nasal Cannula Oxygen Flow Rate (L/min) 2 12/11/24 16:47 12/11/24 17:00 12/11/24 18:00 Temperature Temperature Source Pulse Rate 75 74 Respiratory Rate 17 Respiratory Effort Short of Breath Respiratory Pattern Normal Blood Pressure 154/74 H Blood Pressure Mean 100 Pulse Ox 96 Oxygen Delivery Method Nasal Cannula Oxygen Flow Rate (L/min) 2 12/11/24 19:00 Temperature Temperature Source Pulse Rate 72 Respiratory Rate 16 Respiratory Effort Respiratory Pattern Blood Pressure 148/76 H Blood Pressure Mean 100 Pulse Ox 96 Oxygen Delivery Method Oxygen Flow Rate (L/min) Positive well nourished and well developed; Negative for cachectic, contractures or unkempt General Appearance ED: well developed and NAD; Negative for unkempt, cachectic, contractures, cyanotic, diaphoretic or pallor Nutritional Appearance: Negative for cachectic HEENT Reports moist mucous membranes Negative for trauma or tenderness Eyes PERRL and EOMs intact bilaterally General Eye ED: Negative for pale conjunctiva or scleral icterus Neck supple and no JVD General: Negative for tenderness Chest Wall inspection of chest normal; Negative for palpation of chest normal Chest Narrative: Reproducible chest wall pain right upper chest. No ecchymosis or bruising. No subcu air or crepitance. Resp normal respiratory effort and clear to auscultation bilaterally Auscultation: Negative for rales, rhonchi, wheezes or diminished lung sounds Cardio regular rate, regular rhythm, S1 normal heart sound, S2 normal heart sound and no murmurs GI normal to inspection, nondistended, normoactive bowel sounds, non-tender, non-distended and no masses Palpation: soft; Negative for tender, guarding or rebound tenderness present Back/Spine no CVA tenderness General Back: Negative for CVA tenderness Cervical Spine: Negative for cervical spine tenderness Thoracic Spine / Upper Back: Negative for thoracic spinal tenderness or paraspinal muscle tenderness Lumbar Spine / Lower Back: Negative for lumbar spinal tenderness Extremity normal to inspection General Extremety ED: Negative for edema or tenderness General Extremity: Negative for edema Neuro CN's II-XII intact bilaterally Sensorium / Orientation: alert; Negative for orientation impaired, lethargic or stuporous Psych mental status grossly normal Appearance: Negative for unkempt Attitude: No agitated Mood & Affect: Negative for depressed, anxious or tearful Skin no rashes or lesions noted, no wounds and skin turgor normal General Skin Exam: Negative for jaundice or pallor Lesions: No lesion noted Rashes: No rashes noted Trauma: Negative for abrasion Wounds: Negative for wounds noted MDM MDM MDM Narrative Medical decision making narrative: 69-year-old female with reproducible upper chest wall pain. Could be a chest wall strain. Primary care provider's office did not elevated D-dimer and sent in for further evaluation. To the chest pain we will do a cardiac workup I do not think this is cardiac. Should get a CTA of her chest to evaluate for possible pulmonary emboli. Repeat exam at around 630 and now at 7:35 PM patient doing well. We went over her test results. She will be discharged home. There is no signs of a PE. She has residual of her recent pneumonia but I will think its acute or needs additional treatment at this time. Patient is comfortable with the plan. History & Record Review Discussion w/independent historian: Patient Additional record(s) reviewed:: Prior inpatient record, Prior outpatient record, Prior ED visit and Prior labs Lab Data Attestation: I reviewed the patient's lab results. Lab results narrative: CBC shows a white count of 5. H&H of 13 and 39. Platelets 266. Electrolytes show a sodium 141. Gap 13. Normal BUN and creatinine of 12 and 1. Glucose 120. CTA of the chest showed no PE. Initial troponin 14. Labs: Laboratory Results - last 24 hr 12/11/24 16:37 WBC 5.6 RBC 4.51 Hgb 13.0 Hct 39.5 MCV 87.6 MCH 28.8 MCHC 32.9 RDW Std Deviation 45.6 H RDW Coeff of Oleg 14.3 Plt Count 266 MPV 9.5 Immature Gran % (Auto) 0.200 Neut % (Auto) 49.1 Lymph % (Auto) 37.9 Dewey % (Auto) 7.5 Eos % (Auto) 4.8 Baso % (Auto) 0.5 Absolute Neuts (auto) 2.7 Absolute Lymphs (auto) 2.11 Nucleated RBC % 0 Sodium 141 Potassium 3.7 Chloride 105 Carbon Dioxide 23.3 Anion Gap 13 BUN 12 Creatinine 1.03 Estim Creat Clear Calc 60.72 Est GFR (MDRD) Non-Af 59 L BUN/Creatinine Ratio 11.2 Glucose 120 H Calcium 9.6 Troponin T High Sens 14 Radiography Diagnostic Testing: Clinical Impression(s) from Imaging Studies Chest CTA 12/11/24 17:15 IMPRESSION: 1. No evidence of pulmonary embolism. 2. Right middle lobe consolidative opacity with air bronchograms, concerning for pneumonia. Moderate upper lobe predominant centrilobular emphysema. 3. Multiple low-attenuation thyroid lobe nodules. Recommend nonemergent thyroid ultrasound. One or more dose reduction techniques were used (e.g., Automated exposure control, adjustment of the mA and/or kV according to patient size, use of iterative reconstruction technique). Reading Location: [facility] Rhythm Strip Rhythm Strip: Sinus Rhythm Rate: 86 Ectopy: None EKG Initial EKG: Attestation: I personally reviewed and interpreted this EKG as follows: Interpretation: Sinus Rhythm and No Acute Injury Pattern Comments: Normal sinus rhythm rate 86 no acute signs of MO nor ischemia. Discharge Plan Triage Chief Complaint: Abn Labs ED Provider: Titi Jesus Dx/Rx/DC Orders Clinical Impression: Chest pain, History of deep vein thrombosis, History of COPD Instructions: ED Chest Pain, Uncertain Cause Prescriptions: No Action furosemide 20 mg tablet 20 mg PO DAILY Breztri Aerosphere 160-9-4.8 mcg/actuation HFA aerosol inhaler 2 inh inhalation BID diclofenac sodium [Voltaren Arthritis Pain] 1 % gel 2 g topical BID PRN (Reason: pain) Rx Instructions: apply to single elbow, wrist or hand; for hand includes palm/fingers/back of hand aspirin 81 MG tablet,chewable 81 mg PO DAILY albuterol sulfate 18 GM HFA aerosol inhaler 2 puff inhalation Q4H PRN (Reason: Wheezing) Patient Comments: Inhale 2 Puffs as instructed every 4 hours as needed. atorvastatin 40 mg tablet 40 mg PO DAILY omeprazole 40 mg capsule,delayed release(DR/EC) 40 mg PO DAILY lisinopril 30 mg tablet 30 mg PO DAILY famotidine 40 mg tablet 40 mg PO QHS methimazole 5 mg tablet 5 mg PO DAILY tizanidine 4 mg tablet 4 mg PO Q8 PRN (Reason: muscle spasms) prednisone 20 mg Tablet 40 mg PO BREAKFAST 4 Days Qty: 8 0RF Rx Instructions: first dose 2/25/25 levofloxacin 750 mg Tablet 750 mg PO DAILY 2 Days Qty: 2 0RF Rx Instructions: first dose 2/25/25 ipratropium bromide 0.02 % Solution 0.5 mg inhalation Q6HWA.RT Qty: 75 0RF albuterol sulfate 2.5 mg /3 mL (0.083 %) Solution For Nebulization 2.5 mg inhalation Q2H PRN PRN (Reason: SOB &/OR WHEEZING) Qty: 90 0RF Primary Care Provider: Leonie Castillo Referrals: Leonie Castillo MD [Primary Care Provider] - As Needed Activity Restrictions/Additional Instructions: See CAT scan your chest look good. No blood clot. Your other tests look good tonight. Follow-up with your doctor as needed. Print Language: Yi Disposition Disposition: Home, Self Care
[2024-12-11 16:44] VITALS: BP 168/108; PULSE 91; RESP 16; O2SAT 96
[2024-12-11 16:50] LABS: Absolute Lymphocyte Count 2.11 X10^3/uL (0.83-4.51); Absolute Neutrophil Count 2.7 X10^3/uL (2.0-7.7); Basophil# 0.03 X10^3/uL; Basophil% 0.5 % (0-1); Eosinophil# 0.27 X10^3/uL; Eosinophils% 4.8 % (0-5); Hematocrit 39.5 % (37-47); Lymphocyte # 2.11 X10^3/ul (0.83-4.51); Lymphocyte % 37.9 % (19-41); Mean Corp Hgb Conc 32.9 g/dL (32-36); Mean Corpuscular Hgb 28.8 pg (27.0-32.0); Mean Corpuscular Volume 87.6 fL (81-99); Mean Platelet Vol. 9.5 fl (6.2-12.0); Monocyte# 0.42 X10^3/uL; Monocyte% 7.5 % (0-10); NRBC Flagged by Analyzer 0 % (0-5); Neutrophil # 2.73 X10^3/uL (2.7-7.7); Neutrophil % 49.1 % (47-70); Platelet Count 266 K/mm3 (150-450); RBC Distribution Width CV 14.3 % (11.6-14.6); RBC Distribution Width SD 45.6 fl (35.1-43.9); Red Blood Count 4.51 M/mm3 (4.2-5.4); White Blood Count 5.6 K/mm3 (4.4-11.0)
[2024-12-11 17:00] VITALS: PULSE 75
[2024-12-11 17:11] LABS: Anion Gap 13 (5-15); BUN 12 mg/dL (4-19); BUN/Creat Ratio 11.2 RATIO (10-20); Calcium,Total 9.6 mg/dL (7.6-11.0); Carbon Dioxide 23.3 mmol/L (21.0-32.0); Chloride 105 mmol/L (98-108); Creatinine, Serum 1.03 mg/dL (0.70-1.20); EST Glomerular Filtration Rate 59 (>60); Estimated Creatinine Clearance 60.72 ml/min (50-250); Glucose 120 mg/dL (70-99); Potassium 3.7 mmol/L (3.3-5.1); Sodium Level 141 mmol/L (133-145)
--- NOTE | 2024-12-11 17:15 | CT_ITS ---
PROCEDURE: CTA CHEST W/WO CONTRAST REASON FOR EXAM: R-SIDED CP AND ELEVATED D-DIMER TECHNIQUE: CTA imaging of the chest with intravenous contrast. 3D reconstructions. CONTRAST: COMPARISON: None. FINDINGS: Hardware: None. Lymph nodes: No mediastinal hilar or axillary lymphadenopathy. Multiple low-attenuation thyroid nodules, measuring up to 16 mm. Heart: Normal heart size. No pericardial effusion. RV/LV Diameter Ratio: N/A Thoracic Aorta: No thoracic aortic aneurysm or dissection. Pulmonary Vessels: No evidence of acute pulmonary emboli through the major subsegmental branches. Most Proximal Level of Embolus (if embolus present): N/A Lungs and Airways: Central airways are patent without endobronchial lesions. Right middle lobe consolidative opacity, with air bronchograms, concerning for lobar pneumonia. Moderate upper lobe predominant centrilobular emphysema. No suspicious pulmonary nodules. No pneumothorax. No pleural effusion. Patchy opacities in the lingula, likely secondary to atelectasis. Mild bibasilar atelectasis. Upper Abdomen: Visualized portions of the upper abdominal viscera are unremarkable. Bones: Bone windows are unremarkable. CT/CTA Chest W/WO Contrast IMPRESSION: 1. No evidence of pulmonary embolism. 2. Right middle lobe consolidative opacity with air bronchograms, concerning fo r pneumonia. Moderate upper lobe predominant centrilobular emphysema. 3. Multiple low-attenuation thyroid lobe nodules. Recommend nonemergent thyroi d ultrasound. One or more dose reduction techniques were used (e.g., Automated exposure contr ol, adjustment of the mA and/or kV according to patient size, use of iterative reconstruction technique). Reading Location: [facility]
[2024-12-11 18:00] VITALS: BP 154/74; PULSE 74; RESP 17; O2SAT 96
[2024-12-11 19:00] VITALS: BP 148/76; PULSE 72; RESP 16; O2SAT 96
[2024-12-11 19:12] LABS: Troponin T High Sensitivity 14 ng/L (<=14)
== END 2024-12-11 19:46 | disposition home or self-care (01) ==
PROVIDERS: Emergency Provider Emergency Medicine; PCP Internal Medicine; Visit Provider Emergency Medicine
DX: R79.9 Abnormal finding of blood chemistry, unspecified (principal); J44.9 Chronic obstructive pulmonary disease, unspecified; R07.9 Chest pain, unspecified; E78.00 Pure hypercholesterolemia, unspecified; Z87.891 Personal history of nicotine dependence; Z86.718 Personal history of other venous thrombosis and embolism; I10 Essential (primary) hypertension; I25.2 Old myocardial infarction; Z79.82 Long term (current) use of aspirin; Z95.5 Presence of coronary angioplasty implant and graft; Z79.899 Other long term (current) drug therapy; K21.9 Gastro-esophageal reflux disease without esophagitis
CPT/HCPCS: 71275; 80048; 84484; 85025; 93005; 99284; Q9967; A4216

== ENCOUNTER 2025-09-16 17:14 | Emergency (ER) | payer MEDICARE, MEDICAID, SELFPAY ==
[2025-09-16 17:18] VITALS: BP 189/102; PULSE 103; RESP 18; TEMP 36.8; O2SAT 97
[2025-09-16 18:06] LABS: Hematocrit 43.2 % (37-47); Hemoglobin 13.9 g/dL (12.0-15.0); Immature Granulocytes Count 0.020 X10^3/uL (0.0-0.0); Mean Corp Hgb Conc 32.2 g/dL (32-36); Mean Corpuscular Volume 89.8 fL (81-99); Mean Platelet Vol. 10.8 fl (6.2-12.0); NRBC Flagged by Analyzer 0 % (0-5); Platelet Count 258 K/mm3 (150-450); RBC Distribution Width CV 14.3 % (11.6-14.6); RBC Distribution Width SD 47.1 fl (35.1-43.9); Red Blood Count 4.81 M/mm3 (4.2-5.4); White Blood Count 8.1 K/mm3 (4.4-11.0)
[2025-09-16] MEDS: HYDROcodone Bitartrate/Apap 5/325 Tablet PO ×2 (18:19→20:51)
[2025-09-16 18:51] LABS: Mucous, Urine 0 SEEN /hpf (<or=2+); Red Blood Cells-Urine 0 SEEN /hpf (0-5); Squamous Epithelial Cells - UA 0 SEEN /hpf (5-10)
[2025-09-16 18:54] LABS: Color, Urine Straw (Yellow); Glucose, Dipstick Normal (Normal); Ketone-Dipstick Negative (Negative); Leukocyte Esterase-Dipstick Negative /ul (Negative); Nitrite-Dipstick Negative (Negative); Occult Blood-Urine Negative /ul (Negative); Protein-Dipstick 15 mg/dl (Negative); Specific Gravity, Urine 1.020 (1.002-1.030); Urine Bilirubin Dipstick Negative (Negative)
--- NOTE | 2025-09-16 19:45 | EX.ED.DYSGE1 ---
HPI History of Present Illness Chief Complaint: Flank Pain Detail of Chief Complaint: Right-sided flank abdominal pain that started on September 13 Informant: patient Onset/Context/Timing Onset: Days Context: Sudden Onset Timing: Continuous Quality: Pain Location: Right flank area Current Severity: Mild Maximum Severity: Moderate Worsened by: Movement Relieved by: Remaining still Associated Symptoms Associated Symptoms: Frequency Narrative Narrative: Patient is 70-year-old woman. 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 The started several days ago. Is worse with movement. She also complains of frequency without dysuria or hematuria. She denies any vaginal discharge or vaginal bleeding. She denies history of renal ureterolithiasis. She denies cough, shortness of breath or difficulty breathing. She denies pain with breathing. She denies any pressure, tightness or heaviness in her chest. She denies any recent swelling or discoloration of her legs. She not have any pain in her legs. She denies any history of direct or indirect trauma. She has not noted any bruising. There is no rash Prior similar symptoms: No Recent Illness/Hospitalization: No PFSH PFSH Medical History Type 2 acute myocardial infarction Wears glasses Post-menopausal Gastric reflux Depression Walker as ambulation aid Arthritis Bladder disease High cholesterol Hx of fracture of wrist Back pain Syncope Loss of consciousness Shortness of breath on exertion Leg cramps History of edema History of echocardiogram History of stress test Cardiology follow-up encounter Dependence on supplemental oxygen Euthyroid sick syndrome Thyroid disorder Chronic hepatitis C without hepatic coma Smoker COPD (chronic obstructive pulmonary disease) Presence of stent in artery H/O cocaine abuse H/O ETOH abuse DVT (deep venous thrombosis) Lumbar herniated disc HTN (hypertension) Alcohol abuse Cocaine abuse Home Medications ?Medication ?Instructions ?Recorded ?Last Taken ?Type albuterol sulfate 90 mcg/actuation 2 puff inhalation Q4H PRN Wheezing 08/26/20 08/26/20 History aerosol inhaler aspirin 81 mg chewable tablet 81 mg PO DAILY BLOOD CLOT 08/26/20 09/16/25 History atorvastatin 40 mg tablet 40 mg PO DAILY 02/07/21 09/16/25 History furosemide 20 mg tablet 20 mg PO DAILY 10/17/22 11/16/24 History diclofenac sodium 1 % topical gel 2 g topical BID PRN pain 02/15/23 09/16/25 History (Voltaren Arthritis Pain) omeprazole 40 mg capsule,delayed 40 mg PO DAILY 04/27/24 11/16/24 History release famotidine 40 mg tablet 40 mg PO QHS 11/17/24 09/15/25 History lisinopril 30 mg tablet 30 mg PO DAILY 11/17/24 11/16/24 History methimazole 5 mg tablet 5 mg PO DAILY 11/17/24 Unknown History tizanidine 4 mg tablet 4 mg PO Q8 PRN muscle spasms 11/17/24 Unknown History albuterol sulfate 2.5 mg/3 mL 2.5 mg (3 mL) inhalation Q2H PRN 11/23/24 Unknown Rx (0.083 %) solution for nebulization PRN SOB &/OR WHEEZING #90 mL ipratropium bromide 0.02 % 0.5 mg (2.5 mL) inhalation 11/23/24 09/13/25 Rx solution for inhalation Q6HWA.RT #75 mL fluticasone fur. 100 mcg-umeclid 1 ea inhalation DAILY 09/16/25 Unknown History 62.5 mcg-vilant 25 mcg inhalat.powder (Trelegy Ellipta) hydrocodone-acetaminophen 5-325mg 1 tab PO Q6H PRN PRN Pain 3 days 09/16/25 Unknown Rx 5mg-325mg #10 TABLETS Allergy/AdvReac Type Severity Reaction Status Date / Time No Known Allergies Allergy Verified 09/16/25 17:19 Family History Mother Hypertension Other Alcoholism Surgical History History of rotator cuff surgery H/O vascular surgery Stenosis of artery of left lower extremity Social History household members: none housing: apartment current occupational status: retired Smoking Status: Former smoker how long ago did patient quit smoking: January 2022 alcohol intake: former substance use type: former substance user Date of last use: 03/2020 and crack/cocaine caffeine: Yes Type: carbonated beverages and coffee ROS ROS ED Constitutional Constitutional ED: Denies chills, fever(s), subjective, sweats or weight loss Cardiovascular Cardiovascular: Denies chest pain, orthopnea, palpitations or paroxysmal nocturnal dyspnea Respiratory/Chest Respiratory/Chest: Denies cough, dyspnea, dyspnea on exertion, orthopnea or paroxysmal nocturnal dyspnea Gastrointestinal Gastrointestinal: Reports abdominal pain; Denies constipation, diarrhea, melena, nausea or vomiting Genitourinary Genitourinary ED: Reports urinary frequency; Denies dysuria or hematuria Musculoskeletal Musculoskeletal: Denies arthralgias or myalgias Integumentary Denies rash Neurologic Neurologic: Denies paresthesias Hematologic/Lymphatic Hematologic/Lymphatic: Reports systems reviewed and no addt'l complaints, except as documented EXAM Physical Exam Const Vital Signs: 09/16/25 17:18 Temperature 98.2 F Temperature Source Temporal Pulse Rate 103 H Respiratory Rate 18 Blood Pressure 189/102 H Blood Pressure Mean 131 Pulse Ox 97 Oxygen Delivery Method Room Air Positive well nourished and well developed Constitutional Narrative: Patient's in no respiratory distress. She does not appear in any significant pain. BMI is elevated General Appearance ED: well developed; Negative for cyanotic, diaphoretic or pallor HEENT Reports moist mucous membranes Eyes PERRL and EOMs intact bilaterally General Eye ED: Negative for pale conjunctiva Neck no lymphadenopathy, supple and no JVD Resp normal respiratory effort and clear to auscultation bilaterally Cardio regular rate, regular rhythm, S1 normal heart sound, S2 normal heart sound and no murmurs GI non-distended and no masses; Negative for non-tender or hepatosplenomegaly Inspection: Negative for abdominal distention Auscultation: hypoactive bowel sounds Palpation: soft and tender other (Tenderness from the posterior to anterior axillary line on the right side below the right costal margin. There is no bruising noted. Having her twist bend causes her pain in the same area.) Back/Spine no CVA tenderness Extremity Extremity Narrative: Patient has stigmata of peripheral arterial disease with absence of hair on her toes and thickened toenails. She also has dry skin Neuro oriented x3 and CN's II-XII intact bilaterally Sensorium / Orientation: alert Psych mental status grossly normal Skin no rashes or lesions noted and no wounds General Skin Exam: Negative for jaundice or pallor MDM MDM MDM Narrative Medical decision making narrative: Suspect this is musculoskeletal. With her having frequency obtain UA to determine if there is blood which would suggest atypical presentation for renal lithiasis or possible infection. History & Record Review Additional record(s) reviewed:: Prior ED visit Lab Data Attestation: I reviewed the patient's lab results. Lab results narrative: CBC is unremarkable. Neutrophils slightly decreased otherwise it is normal. UA is normal. In my opinion this is [place]. In light of her medical problems we will treat with short course of opiate analgesics. Competence of metabolic panel reveals acute mild renal insufficiency. CO2 anion gap is normal. Glucose is normal. Labs: Laboratory Results - last 24 hr 09/16/25 09/16/25 17:43 18:24 WBC 8.1 RBC 4.81 Hgb 13.9 Hct 43.2 MCV 89.8 MCH 28.9 MCHC 32.2 RDW Std Deviation 47.1 H RDW Coeff of Oleg 14.3 Plt Count 258 MPV 10.8 Immature Gran % (Auto) 0.200 Neut % (Auto) 44.9 L Lymph % (Auto) 40.0 [place] % (Auto) 6.9 Eos % (Auto) 7.4 H Baso % (Auto) 0.6 Absolute Neuts (auto) 3.6 Absolute Lymphs (auto) 3.24 Nucleated RBC % 0 Sodium 144 Potassium 4.4 Chloride 105 Carbon Dioxide 24.8 Anion Gap 14 BUN 18 Creatinine 1.36 H Est GFR (MDRD) Non-Af 42 L BUN/Creatinine Ratio 13.0 Glucose 99 Calcium 9.6 Total Bilirubin 0.37 AST 19 ALT 10 Alkaline Phosphatase 122 H Total Protein 7.3 Albumin 4.4 Globulin 2.9 Albumin/Globulin Ratio 1.5 Urine Color Straw Urine Clarity Clear Urine pH 5.0 Ur Specific [place] 1.020 Urine Protein 15 H Urine Glucose (UA) Normal Urine Ketones Negative Urine Occult Blood Negative Urine Nitrite Negative Urine Bilirubin Negative Urine Urobilinogen Normal Ur Leukocyte Esterase Negative Urine RBC 0 SEEN Urine WBC 0-5 SEEN Ur Squamous Epith Cells 0 SEEN Urine Bacteria 0 SEEN Urine Mucus 0 SEEN Discharge Plan Triage Chief Complaint: Flank Pain ED Provider: Perry Florence Dx/Rx/DC Orders Clinical Impression: Abdominal wall strain, Frequency of urination, Acute kidney insufficiency, Thyroid disorder, COPD exacerbation, Chronic hypoxemic respiratory failure, COPD (chronic obstructive pulmonary disease), History of DVT (deep vein thrombosis) Instructions: ED Muscle Strain, Abdomen Prescriptions: New hydrocodone-acetaminophen 5-325 mg tablet 1 tab PO Q6H PRN PRN (Reason: Pain) 3 Days Qty: 10 0RF No Action furosemide 20 mg tablet 20 mg PO DAILY diclofenac sodium [Voltaren Arthritis Pain] 1 % gel 2 g topical BID PRN (Reason: pain) Rx Instructions: apply to single elbow, wrist or hand; for hand includes palm/fingers/back of hand aspirin 81 MG tablet,chewable 81 mg PO DAILY albuterol sulfate 18 GM HFA aerosol inhaler 2 puff inhalation Q4H PRN (Reason: Wheezing) Patient Comments: Inhale 2 Puffs as instructed every 4 hours as needed. atorvastatin 40 mg tablet 40 mg PO DAILY Trelegy Ellipta 100-62.5-25 mcg blister with device 1 ea inhalation DAILY omeprazole 40 mg capsule,delayed release(DR/EC) 40 mg PO DAILY lisinopril 30 mg tablet 30 mg PO DAILY famotidine 40 mg tablet 40 mg PO QHS methimazole 5 mg tablet 5 mg PO DAILY tizanidine 4 mg tablet 4 mg PO Q8 PRN (Reason: muscle spasms) ipratropium bromide 0.02 % Solution 0.5 mg inhalation Q6HWA.RT Qty: 75 0RF albuterol sulfate 2.5 mg /3 mL (0.083 %) Solution For Nebulization 2.5 mg inhalation Q2H PRN PRN (Reason: SOB &/OR WHEEZING) Qty: 90 0RF Primary Care Provider: Leonie Castillo Referrals: Leonie Castillo MD [Primary Care Provider, Internal Medicine] - 1 Week if not improving Print Language: Icelandic Disposition Disposition: Home, Self Care
[2025-09-16 19:56] LABS: AST(SGOT) 19 U/L (<=31); Alanine Aminotransfer ALT/SGPT 10 U/L (<=34); Alkaline Phosphatase 122 U/L (35-104); Anion Gap 14 (5-15); BUN 18 mg/dL (4-19); BUN/Creat Ratio 13.0 RATIO (10-20); Calcium,Total 9.6 mg/dL (7.6-11.0); Carbon Dioxide 24.8 mmol/L (21.0-32.0); Chloride 105 mmol/L (98-108); Glucose 99 mg/dL (70-99); Potassium 4.4 mmol/L (3.3-5.1)
[2025-09-16 20:09] LABS: Albumin, Serum 4.4 g/dL (3.4-4.8); Globulin 2.9 g/dL (2.2-4.2)
[2025-09-16 20:54] VITALS: BP 149/90; PULSE 92; RESP 20; TEMP 36.8; O2SAT 98
== END 2025-09-16 21:28 | disposition home or self-care (01) ==
PROVIDERS: Emergency Provider Emergency Medicine; PCP Internal Medicine; Visit Provider Emergency Medicine
DX: S39.011A Strain of muscle, fascia and tendon of abdomen, initial encounter (principal); J96.11 Chronic respiratory failure with hypoxia; J44.1 Chronic obstructive pulmonary disease with (acute) exacerbation; R10.A1 Flank pain, right side; Z87.891 Personal history of nicotine dependence; N28.9 Disorder of kidney and ureter, unspecified; I10 Essential (primary) hypertension; R35.0 Frequency of micturition; E78.00 Pure hypercholesterolemia, unspecified; Z86.718 Personal history of other venous thrombosis and embolism; E07.9 Disorder of thyroid, unspecified; Z99.81 Dependence on supplemental oxygen; I25.2 Old myocardial infarction; Z79.82 Long term (current) use of aspirin; Z79.899 Other long term (current) drug therapy; K21.9 Gastro-esophageal reflux disease without esophagitis; Z79.51 Long term (current) use of inhaled steroids
CPT/HCPCS: 80053; 81001; 85025; 99284; P9612; A4216

== ENCOUNTER 2025-09-25 20:11 | Inpatient (IN) | payer MEDICARE, MEDICAID, SELFPAY ==
[2025-09-25 20:12] VITALS: BP 145/71; PULSE 108; RESP 18; TEMP 36.9; O2SAT 96
--- NOTE | 2025-09-25 20:25 | EX.ED.DYSGE1 ---
HPI History of Present Illness Chief Complaint: Abd Pain [facility] Medical History (Updated 09/24/25 @ 00:01 by Background Yolanda) Anticoagulant long-term use Type 2 acute myocardial infarction Wears glasses Post-menopausal Gastric reflux Depression Walker as ambulation aid Arthritis Bladder disease High cholesterol Hx of fracture of wrist Back pain Syncope Loss of consciousness Shortness of breath on exertion Leg cramps History of edema History of echocardiogram History of stress test Cardiology follow-up encounter Dependence on supplemental oxygen Euthyroid sick syndrome Thyroid disorder Chronic hepatitis C without hepatic coma Smoker COPD (chronic obstructive pulmonary disease) Presence of stent in artery H/O cocaine abuse H/O ETOH abuse DVT (deep venous thrombosis) Lumbar herniated disc HTN (hypertension) Alcohol abuse Cocaine abuse Home Medications ?Medication ?Instructions ?Recorded ?Last Taken ?Type albuterol sulfate 90 mcg/actuation 2 puff inhalation Q4H PRN Wheezing 08/26/20 08/26/20 History aerosol inhaler aspirin 81 mg chewable tablet 81 mg PO DAILY BLOOD CLOT 08/26/20 09/16/25 History atorvastatin 40 mg tablet 40 mg PO DAILY 02/07/21 09/16/25 History furosemide 20 mg tablet 20 mg PO DAILY 10/17/22 11/16/24 History diclofenac sodium 1 % topical gel 2 g topical BID PRN pain 02/15/23 09/16/25 History (Voltaren Arthritis Pain) omeprazole 40 mg capsule,delayed 40 mg PO DAILY 04/27/24 11/16/24 History release famotidine 40 mg tablet 40 mg PO QHS 11/17/24 09/15/25 History lisinopril 30 mg tablet 30 mg PO DAILY 11/17/24 11/16/24 History methimazole 5 mg tablet 5 mg PO DAILY 11/17/24 Unknown History tizanidine 4 mg tablet 4 mg PO Q8 PRN muscle spasms 11/17/24 Unknown History albuterol sulfate 2.5 mg/3 mL 2.5 mg (3 mL) inhalation Q2H PRN 11/23/24 Unknown Rx (0.083 %) solution for nebulization PRN SOB &/OR WHEEZING #90 mL ipratropium bromide 0.02 % 0.5 mg (2.5 mL) inhalation 11/23/24 09/13/25 Rx solution for inhalation Q6HWA.RT #75 mL fluticasone fur. 100 mcg-umeclid 1 ea inhalation DAILY 09/16/25 Unknown History 62.5 mcg-vilant 25 mcg inhalat.powder (Trelegy Ellipta) hydrocodone-acetaminophen 5-325mg 1 tab PO Q6H PRN PRN Pain 3 days 09/16/25 Unknown Rx 5mg-325mg #10 TABLETS Allergy/AdvReac Type Severity Reaction Status Date / Time No Known Allergies Allergy Verified 09/25/25 20:14 Family History Mother Hypertension Other Alcoholism Surgical History History of rotator cuff surgery H/O vascular surgery Stenosis of artery of left lower extremity Social History household members: none housing: apartment current occupational status: retired Smoking Status: Former smoker how long ago did patient quit smoking: January 2022 alcohol intake: former substance use type: former substance user Date of last use: 03/2020 and crack/cocaine caffeine: Yes Type: carbonated beverages and coffee EXAM Physical Exam Const Vital Signs: 09/25/25 20:12 Temperature 98.5 F Temperature Source Oral Pulse Rate 108 H Respiratory Rate 18 Blood Pressure 145/71 H Blood Pressure Mean 95 Pulse Ox 96 Oxygen Delivery Method Nasal Cannula Oxygen Flow Rate (L/min) 5 MDM MDM MDM Narrative Medical decision making narrative: HISTORY OF PRESENT ILLNESS: Chief complaint: Abdominal pain 70-year-old female history of of hepatitis A, type C, COPD, PAD, DVT, hypertension, GERD presents with abdominal pain. She endorses right-sided abdominal pain for last couple weeks REVIEW OF SYSTEMS: Pertinent positives: Abdominal pain Pertinent negatives: [] PHYSICAL EXAM: Nursing triage notes reviewed, Vital signs reviewed Constitutional: please see mdm HENT: MMM Eyes: Pupils equal round and reactive to light, Extraocular muscles intact Neck: No stridor, no JVD, full neck ROM Lungs: Clear to auscultation, No wheezing or rales. No increased work of breathing, no conversational dyspnea, no accessory muscle use, no nasal flaring. No respiratory distress noted Heart: Regular rate and rhythm, No murmurs, No rubs and No gallops, 2+ distal pulses (radial, femoral, posterior tibial) in all extremities Abdomen: Soft, there is no tenderness, rigidity, rebound or guarding, no obvious peritoneal signs, no palpable pulsatile abdominal masses, no auscultated abdominal bruit : No CVAT Extremities: No edema Neuro: No new focal neurological deficits, cranial nerves II through XII intact, 5/5 strength in all present extremities. Intact sensation to light touch in all present extremities, 2+ reflexes bilateral patella tendons. Skin: No rash or lesions noted MEDICAL DECISION MAKING: Chief Complaint: please see HPI External records reviewed: Reviewed prior imaging studies: Reviewed CT scan of the abdomen pelvis in 2023 which shows calcified granuloma of the right lobe of the liver, umbilical hernia Factors affecting care: As per HPI Social determinants of health: none History obtained from others: none Consults: none [facility] Narrative: Patient was initially hemodynamically stable saturating well on 5 L nasal cannula which is her baseline. Abdominal exam [] I considered the following differential diagnosis: AAA, small bowel obstruction, abdominal perforation, appendicitis, pancreatitis, hepatobiliary pathology (acute cholecystitis), mesenteric ischemia, pathology (ie nephrolithiasis, pyelonephritis). I obtained [] to further determine if the patient was suffering from a life-threatening etiology. [] ALL IMAGES (IF OBTAINED) HAVE BEEN PERSONALLY REVIEWED AND INTERPRETED BY MYSELF. [] The patient and/or family, caregivers express understanding. The patient and/or family, caregivers agrees with the plan. Shared decision making: I will have a discussion with the patient and or visitors regarding risk/benefits of further testing or admission. They will be made aware of of the risk/benefits inherent in this decision they will be given the opportunity to voice understanding. Total critical care time today provided was at least 0 [] minutes. This excludes separately billable procedures. Critical care time (if documented) is secondary to the patient having high probability of clinically significant/life threatening deterioration in the patient's condition which required my urgent intervention. Impression: 1. [] 2. [] [] Dispo: [] This note was generated with citizenmade dictation software. It may contain incorrect words, spelling, and punctuation that were not noted in review of the chart prior to signing. Discharge Plan Triage Chief Complaint: Abd Pain ED Provider: Castro Lane Dx/Rx/DC Orders Prescriptions: No Action furosemide 20 mg tablet 20 mg PO DAILY diclofenac sodium [Voltaren Arthritis Pain] 1 % gel 2 g topical BID PRN (Reason: pain) Rx Instructions: apply to single elbow, wrist or hand; for hand includes palm/fingers/back of hand aspirin 81 MG tablet,chewable 81 mg PO DAILY albuterol sulfate 18 GM HFA aerosol inhaler 2 puff inhalation Q4H PRN (Reason: Wheezing) Patient Comments: Inhale 2 Puffs as instructed every 4 hours as needed. atorvastatin 40 mg tablet 40 mg PO DAILY Trelegy Ellipta 100-62.5-25 mcg blister with device 1 ea inhalation DAILY hydrocodone-acetaminophen 5-325 mg tablet 1 tab PO Q6H PRN PRN (Reason: Pain) 3 Days Qty: 10 0RF omeprazole 40 mg capsule,delayed release(DR/EC) 40 mg PO DAILY lisinopril 30 mg tablet 30 mg PO DAILY famotidine 40 mg tablet 40 mg PO QHS methimazole 5 mg tablet 5 mg PO DAILY tizanidine 4 mg tablet 4 mg PO Q8 PRN (Reason: muscle spasms) ipratropium bromide 0.02 % Solution 0.5 mg inhalation Q6HWA.RT Qty: 75 0RF albuterol sulfate 2.5 mg /3 mL (0.083 %) Solution For Nebulization 2.5 mg inhalation Q2H PRN PRN (Reason: SOB &/OR WHEEZING) Qty: 90 0RF Primary Care Provider: Leonie Castillo Referrals: Leonie Castillo MD [Primary Care Provider, Internal Medicine] Print Language: Moroccan
--- NOTE | 2025-09-25 20:43 | CT_ITS ---
PROCEDURE: ABDOMEN/PELVIS W IV CONT ONLY 09/25/2025 REASON FOR EXAM: RIGHT SIDED ABDOMINAL PAIN TECHNIQUE: Procedure Code: [id number] Modality: CT Procedure: ABDOMEN/PELVIS W IV CONT ONLY Coronal and Sagittal reconstruction series were provided. CONTRAST: 100 cc of Isovue 370. One or more dose reduction techniques were used (e.g., Automated exposure control, adjustment of the mA and/or kV according to patient size, use of iterative reconstruction technique. COMPARISON: CT abdomen and pelvis 11/21/2023 FINDINGS: Lung bases: Mild dependent atelectasis Liver: Mildly enlarged measuring 18.1 cm craniocaudally. Stable punctate calcified granuloma. Right hepatic cysts measuring up to 8 mm. No obvious hepatic mass. Gallbladder: Unremarkable. Spleen: Normal size. Pancreas: Normal size without evidence of mass surrounding inflammation or ductal dilation. Adrenals: No adrenal masses. Kidneys: Normal renal sizes. No hydronephrosis. Bladder: Unremarkable. Reproductive Organs: Fibroid uterus. Adnexal regions unremarkable. Bowel: Colonic diverticulosis without diverticulitis. No bowel obstruction. Appendix: Unremarkable. Lymph nodes: Unremarkable. Vasculature: Moderate atherosclerotic calcifications. Redemonstrated intraluminal stenting of the distal abdominal aorta and bilateral common iliac arteries. No aneurysm. Peritoneum / Retroperitoneum: No free fluid or air. Bones: Degenerative changes of the spine. No acute fractures. Other: Small fat containing umbilical hernia unchanged. CT/Abdomen/Pelvis W IV Cont ONLY IMPRESSION: 1. No acute findings in the abdomen or pelvis. 2. Mild hepatomegaly. 3. Small fat containing umbilical hernia. 4. Unchanged abdominal aortoiliac stenting. Reading [facility]
[2025-09-25 21:01] LABS: Hematocrit 42.4 % (37-47); Hemoglobin 13.7 g/dL (12.0-15.0); Immature Granulocytes Count 0.020 X10^3/uL (0.0-0.0); Mean Corp Hgb Conc 32.3 g/dL (32-36); Mean Corpuscular Volume 89.3 fL (81-99); Mean Platelet Vol. 10.9 fl (6.2-12.0); NRBC Flagged by Analyzer 0 % (0-5); POSITIVE COUNT YES; RBC Distribution Width CV 13.4 % (11.6-14.6); RBC Distribution Width SD 44.2 fl (35.1-43.9); Red Blood Count 4.75 M/mm3 (4.2-5.4); White Blood Count 7.7 K/mm3 (4.4-11.0)
[2025-09-25] MEDS: 0.9% Normal Saline (1000mL) 1,000 ML 999 ML IV (21:01)
[2025-09-25 21:04] LABS: Differential Indicated SCAN CRITERIA MET
[2025-09-25 21:21] LABS: Anion Gap 10 (7-18); BUN 12 mg/dL (4-19); BUN/Creat Ratio 12.2 RATIO (10-20); Calcium,Total 9.6 mg/dL (7.6-11.0); Carbon Dioxide 25.8 mmol/L (20.0-29.0); Chloride 104 mmol/L (96-106); Glucose 103 mg/dL (70-99); Lipase 36 U/L (13-75); Potassium 4.6 mmol/L (3.5-5.1)
[2025-09-25 22:00] VITALS: BP 147/80; PULSE 78; RESP 16; O2SAT 99
--- OUTSIDE RECORDS SUMMARY | 2025-09-25 22:24 | XMS RPT_ITS | CCD ---
Author Organization [facility] Care Team Providers Care Statistical Engineer Name Role Phone Myke Burdick Attending Unavail able Darryl Boudreaux Referring Unavailable Brown, Delorise Primary Care Unavailable Myke Burdick Attending Unavail able Brown, Delorise Primary Care Unavailable Myke Burdick Attending Unavail able Myke Burdick Referring Unavail able Brown, Delorise Primary Care Unavailable Myke Burdick Admitting Unavail able Iglesia Sesay Primary Care Provider Unavailabl LUCIANO Valiente Attending Unavailable PROVIDER, UNKNOWN Admitting Unavailable Dr. Molly Castillo Primary Care Provider Dr. Molly Castillo Referring Provider 1([facility])[phone] Stef Bennett Attending Provider 1([facility])[phone] Dr. Yeison Verma Attending Provider 1([facility])[phone] Molly Castillo Primary Care Provider 1([facility])[phone] Dr. Molly Castillo Referring Provider 1([facility])[phone] Omar Walters Attending Provider [employer] ELI Primary Care Provider Dr. Stef Bennett Attending Provider 1([facility])[phone] Dr. Molly Castillo Referring Provider operative site, and all were in agreement that left reverse shoulder arthroplasty was the correct procedure. I began by making a standard deltopectoral approach to the shoulder. The skin was incised with the bovie, and the subcutaneous tissues were dissected with Bovie electrocautery. The deltopectoral interval was identified using the cephalic vein as a landmark, and the vein was taken medially with the pectoralis muscle. After releasing subdeltoid adhesions, the subacromial space was cleared bluntly and a Brown deltoid retractor was placed. Long head of biceps tendon had previously been tenodesed. The rotator cuff was examined. The patient was found to have complete tearing of supraspinatus. The glenohumeral joint was exposed by tenotomizing the subscapularis tendon from the lesser tuberosity of the humerus using Bovie electrocautery. The proximal humerus was exposed after releasing soft tissues from around the humeral neck. Using a guide, the humeral head was cut in 30 degrees of retroversion. All remaining osteophytes and irregularities were then removed from the humeral neck with a rongeour. The axillary nerve was palpated and found to be intact. The humeral metaphysis was reamed using the humerosocket reamer. Then the canal was sized and reamed to a distance beyond 108 mm for placement of a humeral stem. Bone quality was determined to be appropriate for uncemented fixation. The glenoid was exposed next, with the humerus retracted posteriorly using a Darrach retractor. I exposed the coracoid process and removed the stump of the biceps tendon from the superior glenoid. The anterior labrum was removed and a Cobra retractor was placed in the subscapularis fossa. Another Hohmann retractor was then placed superiorly to expose the entire glenoid. The cartilage was found to be mildly worn. I removed the remaining labrum and marked the center of the glenoid with the Bovie. Using sequential guides, the glenoid baseplate was placed and securely fixed using locking screws. I placed the glenosphere and tested the moser taper mechanism, then secured this with a central screw. The area was then thoroughly irrigated and inspected for any remaining bone or soft tissue that might cause impingement, and this was removed. The humerus was then brought forward and exposed proximally with the Brown deltoid retractor and sharp Hohmann retractor. The canal was thoroughly irrigated. I then placed the final humeral component and seated this with a mallet in 30 degrees of retroversion. A trial humeral liner was used to assess tension and range of motion. I was able to obtain excellent internal and external rotation with the arm at the side and with the arm abducted. The patient?s arm could easily be ranged overhead. There was no gapping of the socket away from the ball with rotational motion. The final humeral liner was then placed and (more content not included)... Normal [facility] XR SHOULDER SPECIFY 1V LTon 08-07-2024 XR SHOULDER SPECIFY 1V LT * * *Final Report* * * DATE OF EXAM: Aug 07 2024 4:28PM MDX 5256 - XR SHOULDER SPECIFY 1V LT / PROCEDURE REASON: Postoperative assessment * * * * Physician Interpretation * * * * EXAM(s): XR SHOULDER SPECIFY 1V LT..... HISTORY: 69 years old Clinical information: Postoperative assessment left shoulder post op evaluation TECHNIQUE: Images: XR SHOULDER SPECIFY 1V LT Comparison: 11/09/2022. RESULT: Findings: Interval placement of LEFT reverse shoulder Arthroplasty. The components of the arthroplasty are in good alignment with respect to bones and each other. No fractures or dislocations are seen. IMPRESSION: Findings as discussed in results portion of report Mds Coordinator: VINCENT Transcribe Date/Time: Aug 07 2024 4:37P Dictated by : GELA CAMARGO DO This examination was interpreted and the report reviewed and electronically signed by: GELA CAMARGO DO on Aug 07 2024 4:38PM EST [id number] Normal [facility] CNOVon 07-31-2024 CNOV Normal [facility] ECG COMPLETEon 07-31-2024 ECG COMPLETE Normal [facility] CNOVon 07-29-2024 CNOV Normal [facility] CNPNon 07-27-2024 CNPN Normal [facility] CNPTOUTREACHon 07-24-2024 CNPTOUTREACH Normal [facility] CBC W Auto Differential pane l (Bld)on 07-22-2024 Basophils (Bld) [#/Vol] 0.04 10*3/uL Normal <0.11 [facility] Comment on above: Order Comment: Speci men Type: BLOOD SPECIMENOrdering Facility: [facility] Address: [address] [place] [address] Performed By: #### 5 7021-8 ####[facility] [id number] [place] [id number] [place] Basophils/100 WBC (Bld) 0.7 % Normal [facility] Comment on above: Order Comment: Speci men Type: BLOOD SPECIMENOrdering Facility: [facility] Address: [address] [place] [address] Performed By: #### 5 7021-8 ####[facility] [id number] [place] [address] [place] Differential cell count method Nom (Bld) Auto Normal [facility] Comment on above: Order Comment: Speci men Type: BLOOD SPECIMENOrdering Facility: [facility] Address: [address] [place] [address] Performed By: #### 5 7021-8 ####[facility] [id number] [place] [address] [place] Eosinophils (Bld) [#/Vol] 0.18 10*3/uL Normal <0.46 [facility] Comment on above: Order Comment: Speci men Type: BLOOD SPECIMENOrdering Facility: [facility] Address: [address] [place] [address] Performed By: #### 5 7021-8 ####[facility] [id number] [place] [address] [place] Eosinophils/100 WBC (Bld) 3.3 % Normal [facility] Comment on above: Order Comment: Speci men Type: BLOOD SPECIMENOrdering Facility: [facility] Address: [address] [place] [address] Performed By: #### 5 7021-8 ####[facility] [id number] [place] [address] [place] Erythrocyte distribution width (RBC) [Ratio] 14.9 % Normal 11.5-15.0 [facility] Comment on above: Order Comment: Speci men Type: BLOOD SPECIMENOrdering Facility: [facility] Address: [address] [place] [address] Performed By: #### 5 7021-8 ####[facility] LORINWKARYNLIA [id number] [place] [address] [place] Hematocrit (Bld) [Volume fraction] 44.6 % Normal 36.0-46.0 [facility] Comment on above: Order Comment: Speci men Type: BLOOD SPECIMENOrdering Facility: [facility] Address: [address] [place] [address] Performed By: #### 5 7021-8 ####[facility]ENTERKARYNLIA [id number] [place] [address] [place] Hemoglobin (Bld) [Mass/Vol] 14.6 g/dL Normal 11.5-15.5 [facility] Comment on above: Order Comment: Speci men Type: BLOOD SPECIMENOrdering Facility: [facility] Address: [address] [place] [address] Performed By: #### 5 7021-8 ####[facility]ENTERKARYNLIA [id number] [place] [address] [place] Immature granulocytes (Bld) [#/Vol] 10*3/uL Normal <0.10 [facility] Comment on above: Order Comment: Speci men Type: BLOOD SPECIMENOrdering Facility: [facility] Address: [address] [place] [address] Performed By: #### 5 7021-8 ####[facility] TASHWNCLIA [id number] [place] [address] [place] Immature granulocytes/100 WBC (Bld) 0.0 % Normal [facility] Comment on above: Order Comment: Speci men Type: BLOOD SPECIMENOrdering Facility: [facility] Address: [address] [place] [address] Performed By: #### 5 7021-8 ####[facility]NL[facility] [id number] [place] [address] [place] Lymphocytes (Bld) [#/Vol] 1.64 10*3/uL Normal 1.00-4.00 [facility] Comment on above: Order Comment: Speci men Type: BLOOD SPECIMENOrdering Facility: [facility] Address: [address] [place] [address] Performed By: #### 5 7021-8 ####[facility] [id number] [place] [address] [place] Lymphocytes/100 WBC (Bld) 30.4 % Normal [facility] Comment on above: Order Comment: Speci men Type: BLOOD SPECIMENOrdering Facility: [facility] Address: [address] [place] [address] Performed By: #### 5 7021-8 ####[facility] [id number] [place] [address] [place] MCH (RBC) [Entitic mass] 29.6 pg Normal 26.0-34.0 [facility] Comment on above: Order Comment: Speci men Type: BLOOD SPECIMENOrdering Facility: [facility] Address: [address] [place] [address] Performed By: #### 5 7021-8 ####[facility] [id number] [place] [address] [place] MCHC (RBC) [Mass/Vol] 32.7 g/dL Normal 30.5-36.0 [facility] Comment on above: Order Comment: Speci men Type: BLOOD SPECIMENOrdering Facility: [facility] Address: [address] [place] [address] Performed By: #### 5 7021-8 ####[facility]ENTERNCLIA [id number] [place] [address] [place] MCV (RBC) [Entitic vol] 90.5 fL Normal 80.0-100.0 [facility] Comment on above: Order Comment: Speci men Type: BLOOD SPECIMENOrdering Facility: [facility] Address: [address] [place] [address] Performed By: #### 5 7021-8 ####[facility] [id number] [place] [address] [place] Monocytes (Bld) [#/Vol] 0.27 10*3/uL Normal <0.87 [facility] Comment on above: Order Comment: Speci men Type: BLOOD SPECIMENOrdering Facility: [facility] Address: [address] [place] [address] Performed By: #### 5 7021-8 ####[facility] [id number] [place] [address] [place] Monocytes/100 WBC (Bld) 5.0 % Normal [facility] Comment on above: Order Comment: Speci men Type: BLOOD SPECIMENOrdering Facility: [facility] Address: [address] [place] [address] Performed By: #### 5 7021-8 ####[facility] [id number] [place] [address] [place] Neutrophils (Bld) [#/Vol] 3.26 10*3/uL Normal 1.45-7.50 [facility] Comment on above: Order Comment: Speci men Type: BLOOD SPECIMENOrdering Facility: [facility] Address: [address] [place] [address] Performed By: #### 5 7021-8 ####[facility] [id number] [place] [address] [place] Neutrophils/100 WBC (Bld) 60.6 % Normal [facility] Comment on above: Order Comment: Speci men Type: BLOOD SPECIMENOrdering Facility: [facility] Address: [address] [place] [address] Performed By: #### 5 7021-8 ####[facility] TASHWNCLIA [id number] [place] [address] [place] Nucleated RBC (Bld) [#/Vol] 10*3/uL Normal <0.01 [facility] Comment on above: Order Comment: Speci men Type: BLOOD SPECIMENOrdering Facility: [facility] Address: [address] [place] [address] Performed By: #### 5 7021-8 ####[facility]ENTERNCA [id number] [place] [address] [place] Nucleated RBC/100 WBC (Bld) [Ratio] 0.0 /100 WBC Normal [facility] Comment on above: Order Comment: Speci men Type: BLOOD SPECIMENOrdering Facility: [facility] Address: [address] [place] [address] Performed By: #### 5 7021-8 ####[facility]ENTERNCLIA [id number] [place] [address] [place] Platelet mean volume (Bld) [Entitic vol] 10.4 fL Normal 9.0-12.7 [facility] Comment on above: Order Comment: Speci men Type: BLOOD SPECIMENOrdering Facility: [facility] Address: [address] [place] [address] Performed By: #### 5 7021-8 ####[facility]ENTERNCL[facility] [id number] [place] [address] [place] Platelets (Bld) [#/Vol] 236 10*3/uL Normal 150-400 [facility] Comment on above: Order Comment: Speci men Type: BLOOD SPECIMENOrdering Facility: [facility] Address: [address] [place] [address] Performed By: #### 5 7021-8 ####[facility]ENTERNCA [id number] [place] [address] [place] RBC (Bld) [#/Vol] 4.93 10*6/uL Normal 3.90-5.20 [facility] Comment on above: Order Comment: Speci men Type: BLOOD SPECIMENOrdering Facility: [facility] Address: [address] [place] [address] Performed By: #### 5 7021-8 ####[facility] [id number] [place] [address] [place] WBC (Bld) [#/Vol] 5.39 10*3/uL Normal 3.70-11.00 [facility] Comment on above: Order Comment: Speci men Type: BLOOD SPECIMENOrdering Facility: [facility] Address: [address] [place] [address] Performed By: #### 5 7021-8 ####[facility] [id number] [place] [address] [place] Comprehensive metabolic 2000 panelon 07-22-2024 Albumin [Mass/Vol] 4.3 g/dL Normal 3.9-4.9 [facility] Comment on above: Order Comment: Speci men Type: BLOOD SPECIMENOrdering Facility: [facility] Address: [address] [place] [address] Performed By: #### 2 4323-8 ####[facility] LABCLIA [id number] [address] [address] [place] ALP [Catalytic activity/Vol] 87 U/L Normal 34-123 [facility] Comment on above: Order Comment: Speci men Type: BLOOD SPECIMENOrdering Facility: [facility] Address: [address] [place] [address] Performed By: #### 2 4323-8 ####[facility] LABCLIA [id number] [address] [address] [place] ALT [Catalytic activity/Vol] 10 U/L Normal 7-38 [facility] Comment on above: Order Comment: Speci men Type: BLOOD SPECIMENOrdering Facility: [facility] Address: [address] [place] [id number] Performed By: #### 2 4323-8 ####[facility] LABCLIA [id number] [address] [address] [place] Anion gap [Moles/Vol] 13 mmol/L Normal 8-15 [facility] Comment on above: Order Comment: Speci men Type: BLOOD SPECIMENOrdering Facility: [facility] Address: [address] [place] [address] Performed By: #### 2 4323-8 ####[facility] LABCLIA [id number] [place] [address] [place] AST [Catalytic activity/Vol] 18 U/L Normal 13-35 [facility] Comment on above: Order Comment: Speci men Type: BLOOD SPECIMENOrdering Facility: [facility] Address: [address] [place], [place] [address] Performed By: #### 2 4323-8 ####[facility] LABCLIA [id number] [place] [address] [place] Bilirubin [Mass/Vol] 0.5 mg/dL Normal 0.2-1.3 [facility] Comment on above: Order Comment: Speci men Type: BLOOD SPECIMENOrdering Facility: [facility] Address: [address] [place] [address] Performed By: #### 2 4323-8 ####[facility] LABCLIA [id number] [place] [address] [place] Calcium [Mass/Vol] 10.0 mg/dL Normal 8.5-10.2 [facility] Comment on above: Order Comment: Speci men Type: BLOOD SPECIMENOrdering Facility: [facility] Address: [address] [place], [place] [address] Performed By: #### 2 4323-8 ####[facility] LABCLIA [id number] [place] [address] [place] Chloride [Moles/Vol] 103 mmol/L Normal 98-107 [facility] Comment on above: Order Comment: Speci men Type: BLOOD SPECIMENOrdering Facility: [facility] Address: [address] [place] [address] Performed By: #### 2 4323-8 ####[facility] LABCLIA [id number] [place] [address] [place] CO2 [Moles/Vol] 23 mmol/L Normal 22-30 [facility] Comment on above: Order Comment: Speci men Type: BLOOD SPECIMENOrdering Facility: [facility] Address: [address] [place] [address] Performed By: #### 2 4323-8 ####[facility] LABCLIA [id number] [place] [address] [place] Creatinine [Mass/Vol] 0.97 mg/dL High 0.58-0.96 [facility] Comment on above: Order Comment: Speci men Type: BLOOD SPECIMENOrdering Facility: [facility] Address: [address] [place] [address] Performed By: #### 2 4323-8 ####[facility] LABIA [id number] [address] [place] Creatinine and Glomerular filtration rate.predicted panel (S/P/Bld) 64 mL/min/1.73m??? Normal >=60 [facility] Comment on above: Order Comment: Speci men Type: BLOOD SPECIMENOrdering Facility: [facility] Address: [address] [place] [address] Result Comment: Sigrid mated Glomerular Filtration Rate (eGFR) is calculated using the 2020 CKD-EPI creatinine equation. This equation utilizes serum creatinine, sex, and age as parameters. The creatinine assay has traceable calibration to isotope dilution-mass spectrometry. Refer to KDIGO guidelines for clinical interpretation. In patients with unstable renal function, e.g. those with acute kidney injury, the eGFR may not accurately reflect actual GFR. Performed By: #### 2 4323-8 ####[facility] LABCLIA [id number] [place] [address] [place] Glucose [Mass/Vol] 118 mg/dL High 74-99 [facility] Comment on above: Order Comment: Speci men Type: BLOOD SPECIMENOrdering Facility: [facility] Address: [address] [place] [address] Result Comment: The [place] Diabetes Association (ADA) provides guidance for cutoff values for fasting glucose and random glucose. The ADA defines fasting as no caloric intake for at least 8 hours. Fasting plasma glucose results between 100 to 125 mg/dL indicate increased risk for diabetes (prediabetes).Fasting plasma glucose results greater than or equal to 126 mg/dL meet the criteria for diagnosis of diabetes. In the absence of unequivocal hyperglycemia, results should be confirmed by repeat testing. In a patient with classic symptoms of hyperglycemia or hyperglycemic crisis, random plasma glucose results greater than or equal to 200 mg/dL meet the criteria for diagnosis of diabetes.Reference: Standards of Medical Care in Diabetes 2016, [place] [employer] Association. Diabetes Care. 2016.39(Suppl 1). Performed By: #### 2 4323-8 ####[facility] LABCLIA [id number] [place] [id number] [place] Potassium [Moles/Vol] 4.3 mmol/L Normal 3.7-5.1 [facility] Comment on above: Order Comment: Speci men Type: BLOOD SPECIMENOrdering Facility: [facility] Address: [address] [place] [address] Performed By: #### 2 4323-8 ####[facility] LABCLIA [id number] [address] [address] [place] Protein [Mass/Vol] 7.1 g/dL Normal 6.3-8.0 [facility] Comment on above: Order Comment: Speci men Type: BLOOD SPECIMENOrdering Facility: [facility] Address: [address] [place], [place] [address] Performed By: #### 2 4323-8 ####[facility] LABCLIA [id number] [address] [address] [place] Sodium [Moles/Vol] 139 mmol/L Normal 136-144 [facility] Comment on above: Order Comment: Speci men Type: BLOOD SPECIMENOrdering Facility: [facility] Address: [address] [place] [address] Performed By: #### 2 4323-8 ####[facility] LABCLIA [id number] [place] [address] [place] Urea nitrogen [Mass/Vol] 14 mg/dL Normal 7-21 [facility] Comment on above: Order Comment: Speci men Type: BLOOD SPECIMENOrdering Facility: [facility] Address: [address] [place] [address] Performed By: #### 2 4323-8 ####[facility] LABCLIA [id number] [place] [address] [place] HISTORY PHYSICALon HISTORY PHYSICAL Normal [facility] T3 SerPl-mCncon 07-22-2024 T3 [Mass/Vol] 95 ng/dL Normal 79-165 [facility] Comment on above: Order Comment: Speci men Type: BLOOD SPECIMENOrdering Facility: [facility] Address: [address] [place] [address] Performed By: #### 3 024-7, 3053-6, 3016-3 ####[facility] LABCLIA [id number] [place] [address] [place] T4 Free SerPl-mCncon 024 Free T4 [Mass/Vol] 1.3 ng/dL Normal 0.9-1.7 [facility] Comment on above: Order Comment: Speci men Type: BLOOD SPECIMENOrdering Facility: [facility] Address: [address] [place] [address] Performed By: #### 3 024-7, 3053-6, 3016-3 ####[facility] LABCLIA [id number] [place] [address] [place] TSH SerPl-aCncon 07-22-2024 TSH Qn 0.183 m[IU]/L Low 0.270-4.200 [facility] Comment on above: Order Comment: Speci men Type: BLOOD SPECIMENOrdering Facility: [facility] Address: [address] [place] [address] Performed By: #### 3 024-7, 3053-6, 3016-3 ####[facility] LABCLIA [id number] [address] [place] CNOVon 07-21-2024 CNOV Normal [facility] PVR ANK PRESS ARTEM VAS LABon 07-21-2024 PVR ANK PRESS ARTEM VAS LAB Normal [facility] CNCOon 06-24-2024 CNCO Letter Text Normal [facility] CNOVon 06-23-2024 CNOV Office Visit (AGHWW1 ) -------- DIANNE ALVES ([id number]) 1955 F Date Time Provider Department 06/23/24 11:30 AM DOMINICK PAYTON [id number] During your visit today, we recorded the following information about you: Respiration Weight Height 18/minute 97.5 kg 1.676 m Dominick Payton MD 06/24/2024 10:47 AM Signed PAIN EVALUATION 06/23/2024 1116 Pain Level: 10 Pain Location: -- l shoulder Description: Aching Duration Amount of Time: -- 7 Duration Units: Months Frequency: Continuous Encounter Diagnosis ICD-10-CM 1. 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 Osteoarthritis of shoulder, unspecified laterality, unspecified osteoarthritis type M19.019 3. Morbid obesity (HCC) E66.01 Dianne Alves returns to follow up on left shoulder pain due to failed rotator cuff repair and osteoarthritis. She has had worsening pain and function. Injections are not relieving her pain. She is interested in discussing surgery. Examination of her left shoulder again demonstrates minimal ability to lift or rotator the left shoulder due to severe pain and guarding. IMAGING: I personally reviewed the MRI of the left shoulder in the office today, and I am in agreement with the radiologist's interpretation with the following modifications: None IMPRESSION: Status post rotator cuff repair with recurrent supraspinatus tendon tearing with an associated displaced bone anchor along the torn anterior supraspinatus. No muscle atrophy. Background rotator cuff tendinosis. Intact subscapularis tendon status post repair. Moderate to severe glenohumeral osteoarthritis. Status post biceps tenodesis with long head biceps tendinosis. PLAN: Dianne Alves presents today with worsening pain and weakness of the left shoulder due to failed rotator cuff repair. The current condition represents a significant risk of loss of function of the extremity due to the worsening pain and diminished use of the arm at this time. Based on my evaluation today, I do not feel that nonsurgical interventions including physical therapy, activity modification, and medical management are likely to provide this patient with an acceptable level of improvement in functional use of the arm, nor significant pain relief. After thorough review of history, examination findings, and imaging, we discussed surgical intervention today which would be reverse total shoulder arthroplasty. I described the procedure in detail as well as the expected healing time of 3-6 months and physical therapy regimen following surgery, likely for much of this time. Informed consent was discussed in detail and signed in the office today. Significant risks of surgery include general anesthesia, and those from surgery including infection, nerve injury, bleeding, procedure failure and possible need for repeat procedure. No guarantees as to the outcome of surgery were given or implied. Surgery will be scheduled for the next available date. This elective procedure carries significant risk, and this was discussed with the patient at the time of consent. Risk factors include: Obesity, COPD, revision surgery. I have therefore recommended that the procedure be performed in a hospital setting to promote the best possible outcome for this patient. Dominick Payton MD Shoulder AND Elbow Surgeon Department of Orthopaedic Surgery [facility] Referring Provider: SELF [200] Allergies As of Date: 06/23/2024 (No Known Allergies) Date Reviewed: 06/23/2024 Reviewed by: Boy Marin Tech - Fully Assessed Reason for Visit: Follow Up [171] Primary Visit Diagnosis:Failure of rotator cuff repair [M96.89] Other Visit Diagnoses:Osteoarthritis of shoulder, unspecified laterality, unspecified osteoarthritis type [M19.019] Morbid obesity (HCC) [E66.01] Prescriptions as of 06/24/2024 - tiZANidine (ZANAFLEX) 4 mg tablet Take 1 tablet by mouth every 8 hours as needed. - lisinopril (ZESTRIL) 30 mg tablet Take 1 tablet by mouth once daily. - methIMAzole (TAPAZOLE) 5 mg tablet Take 1 tablet by mouth once daily. - GAVILYTE-G 236-22.74-6.74 -5.86 gram suspension Take 4,000 mL by mouth one time only. Refer to printed prep instructions from your provider - gabapentin (NEURONTIN) 300 mg capsule Take 2 capsules by mouth three times a day for 180 days. - omeprazole (PRILOSEC) 40 mg capsule Take 1 capsule by mouth once daily. - potassium chloride (K-TAB) 10 mEq tablet Take 1 tablet by mouth daily with breakfast. take with furosemide. - aspirin 81 mg chewable tablet Take 1 tablet by mouth once daily. - OXYGEN, HOME THERAPY, Inhale 2-4 L/min as instructed continuous. - Blood Pressure Monitor (BLOOD PRESSURE KIT) 1 Each once daily. - diclofenac (VOLTAREN) 1 % topical gel Apply 2 g to (more content not included)... Normal [facility] Colonoscopy Reporton 024 Colonoscopy Report [facility] Medical Records Department [address] [place] [address] Colonoscopy Report MR#: [id number] Acct: [id number] Name: DIANNE ALVES Rep #: [id number] : 1955 69 From: Stef Friend DO PCP: Dr. Molly Castillo MD Status:REG [facility] [place] Patient Name: Dianne Alves Procedure Date: 04/29/2024 10:24 AM Date of : 1955 Age: 69 Procedure: Colonoscopy Indications: Screening for colorectal malignant neoplasm Providers: Stef Bennett DO Medicines: Monitored Anesthesia Care Patient Profile: This is a 69 year old female. Refer to note in patient chart for documentation of history and physical. Last Colonoscopy: none. The patient's first colonoscopy is today. Complications: No immediate complications. Procedure: Pre-Anesthesia Assessment: - Prior to the procedure, a History and Physical was performed, and patient medications and allergies were reviewed. The patient is competent. The risks and benefits of the procedure and the sedation options and risks were discussed with the patient. All questions were answered and informed consent was obtained. Patient identification and proposed procedure were verified in the pre-procedure area. Mental Status Examination: alert and oriented. Airway Examination: normal oropharyngeal airway and neck mobility. Respiratory Examination: clear to auscultation. CV Examination: normal. Prophylactic Antibiotics: The patient does not require prophylactic antibiotics. Prior Anticoagulants: The patient has taken no anticoagulant or antiplatelet agents. ASA Grade Assessment: II - A patient with mild systemic disease. After reviewing the risks and benefits, the patient was deemed in satisfactory condition to undergo the procedure. The anesthesia plan was to use monitored anesthesia care (MAC). Immediately prior to administration of medications, the patient was re-assessed for adequacy to receive sedatives. The heart rate, respiratory rate, oxygen saturations, blood pressure, adequacy of pulmonary ventilation, and response to care were monitored throughout the procedure. The physical status of the patient was re-assessed after the procedure. After I obtained informed consent, the scope was passed under direct vision. Throughout the procedure, the patient's blood pressure, pulse, and oxygen saturations were monitored continuously. The Colonoscope was introduced through the anus and advanced to the cecum, identified by appendiceal orifice and ileocecal valve. The colonoscopy was performed without difficulty. The patient tolerated the procedure well. The quality of the bowel preparation was adequate. The ileocecal valve, appendiceal orifice, and rectum were photographed. Scope In: 10:42:08 AM Scope Withdrawal Time 0 hours 20 minutes 49 seconds Scope Out: 11:07:26 AM Total Procedure Duration Time 0 hours 25 minutes 18 seconds Findings: The perianal and digital rectal examinations were normal. Multiple small-mouthed diverticula were found in the recto-sigmoid colon and sigmoid colon. Three sessile polyps were found in the sigmoid colon and hepatic flexure. The polyps were 1 to 2 mm in size. These polyps were removed with a hot snare. Resection and retrieval were complete. Verification of patient identification for the specimen was done. Estimated blood loss was minimal. A 3 mm polyp was found in the descending colon. The polyp was sessile. The polyp was removed with a jumbo cold forceps. Resection and retrieval were complete. Verification of patient identification for the specimen was done. Estimated blood loss was minimal. The exam was otherwise without abnormality on direct and retroflexion views. Impression: - Diverticulosis in the recto-sigmoid colon and in the sigmoid colon. - Three 1 to 2 mm polyps in the sigmoid colon and at the hepatic flexure, removed with a hot snare. Resected and retrieved. - One 3 mm polyp in the descending colon, removed with a jumbo cold forceps. Resected and retrieved. - The examination was otherwise normal on direct and retroflexion views. Recommendation: - Discharge patient to home. - Resume previous diet. - Continue present medications. - Await pathology results. - Repeat colonoscopy in 1 year for surveillance. Procedure Code(s): --- Professional --- 51485, Colonoscopy, flexible; with removal of tumor(s), polyp(s), or other lesion(s) by snare technique 23100, 59, Colonoscopy, flexible; with biopsy, single or multiple CPT copyright 2021 [employer]. All rights reserved. The codes documented in this report are preliminary and upon bottle tester review may be revised to meet current compliance requirements. Stef Bennett DO 04/29/2024 11:15:46 AM This report has been signed electronically. Number of Addenda: 0 Note Initiated On: (more content not included)... Normal [facility] MR/POSTOP.Jay Jay 04-29-2024 MR/POSTOP.[facility] Medical Records Department [address] [place] [address] Anesthesia Postop Eval I 04/29/24 1115 MR#: [id number] Acct: [id number] Name: DIANNE ALVES Rep #: [id number] : 1955 69 From: Juancarlos Bernardo PCP: Dr. Molly Castillo MD Status:REG [place] Y Race: AA Location: [place] [address] Anesthesia: Postop Eval I Current Vital Signs Temperature: 97.2 F Pulse Rate: 80 Blood Pressure: 101/48 Respiratory Rate: 16 Pulse Ox: 98 Oxygen Delivery Method: Room Air Assessment Airway patent: Yes Spontaneous unlabored respirations: Yes Mental status: Asleep nausea: No Vomiting: No Anesthesia Complication: No Fluid Hydration Crystalloid volume administer (ml): 600 Total IV fluid infused: 600 Progress Note Anesthesia document: Postop Eval 1 completed: Yes 04/29/24 1116 Date Juancarlos Bernardo Cosigner Signature: Date CC: Signed Normal [facility] MR/FNLAZFZD9rs 04-29-2024 [facility] Medical Records Department [address] [place] [address] Anesthesia Postop Eval II 04/29/24 1143 MR#: [id number] Acct: [id number] Name: DIANNE ALVES Rep #: [id number] : 1955 69 From: Robert Smith MD PCP: Dr. Molly Castillo MD Status:REG [facility] [place] Y Race: AA Location: [place] [address] Anesthesia Postop Eval I Sum Postop Eval Completion status Anesthesia document: Postop Eval 1 completed: Yes Anesthesia Postop Eval I Summary Anesthesia Postop Eval I Summary: Anesthesia Postop Eval I: Assessment Summary Airway patent Yes 04/29/24 11:16 [email or web address] Spontaneous unlabored Yes 04/29/24 11:16 [email or web address] respirations Mental status Asleep 04/29/24 11:16 [email or web address] nausea No 04/29/24 11:16 [email or web address] Vomiting No 04/29/24 11:16 [email or web address] Anesthesia Postop Eval I: Fluid Summary Crystalloid volume administer 600 04/29/24 11:16 [email or web address] (ml) Colloids volume administered ( ml) Blood Product volume administered (ml) Total IV fluid infused 600 04/29/24 11:16 [email or web address] Anesthesia Postop Eval I: Summary Notes Anesthesia Complication No 04/29/24 11:16 [email or web address] Anesthesia Complication Comment: Post-operative progress note Anesthesia: Postop Eval II Evaluation Mental status: Awake Pain Level: 0 nausea: No Vomiting: No Complications Anesthesia Complication: No 04/29/24 1143 Date Robert Quinn Signature: Date CC: Signed Normal [facility] Surgery Specimen Level Keren 04-29-2024 Surgery Specimen Level IV Patient Age/Sex Location Account Attending Physician DIANNE ALVES 69/F EN [id number] Stef Bennett DO Specimen: [id number] Received: 04/29/24 Status: GREGORY Saldaña Num: [id number] Spec Type: COLON BX Subm Dr: DO JUDITH Antonio OPERATION: Colonoscopy, polypectomy, clip, biopsy PRE-OP DIAGNOSIS: Encounter for screening for malignant neoplasm of colon TISSUE SUBMITTED: A- Hepatic flexure polyp, B- Transverse colon polyp biopsy, C- Sigmoid colon polyp MICROSCOPIC DIAGNOSIS A. Colonic polyp at hepatic flexure, biopsy: Fragments of tubular adenoma. B. Transverse colon polyp, biopsy: Fragments of tubular adenoma. C. Sigmoid colon polyp, biopsy: Tubular adenoma. AM/mr 04/30/2024 MICROSCOPIC DESCRIPTION Slides are reviewed. GROSS DESCRIPTION A. Received in fixative is one container labeled with the patient's name and designated Hepatic flexure polyp. The specimen consists of multiple irregular fragments of light rasmussen soft tissue that range in size from 0.2 to 1.5cm. The specimen is submitted in its entirety one cassette. B. Received in fixative is one container labeled with the patient's name and designated Transverse colon polyp. The specimen consists of multiple irregular fragments of light rasmussen soft tissue that in aggregate measure 0.7 x 0.5 x 0.1 cm. The specimen is totally submitted in one cassette. C. Received in fixative is one container labeled with the patient's name and designated Sigmoid colon polyp. The specimen consists of a polypoid fragment of rasmussen tissue measuring 1.0 x 1.0 x 0.6cm. The specimen is bisected and totally submitted in one cassette. AM/mr 04/29/2024 TC:5 AM/mr 04/29/2024 TC: CPT:84313b8 Patient Age/Sex Location Account Attending Physician DIANNE ALVES 69/F EN [id number] Stef Bennett DO Signed (signature on file) Dr. Chencho Barrientos DO 04/30/24 1134 Normal [facility] Comment on above: Performed By: #### P SABINE ####[facility] [address] [place], [address] CNOVon 03-24-2024 CNOV Office Visit (AGHWW1 ) -------- KRYSTIN ALVESORANoelle Griggs ([id number]) 1955 F Date Time Provider Department 03/24/24 10:45 AM DOMINICK PAYTON AGHWW1 During your visit today, we recorded the following information about you: Respiration Weight Height 18/minute 97.1 kg 1.676 m Eduardo Peña LPN 03/24/2024 10:56 AM Signed Injection prepared per Dr. Payton's order and handed directly to him. Injection site: left shoulder NICK Plasencia Jonathan James, MD 03/24/2024 10:56 AM Signed PAIN EVALUATION 03/24/2024 1034 Pain Level: 8 Pain Location: Shoulder-Left Description: Aching;Sharp;Shooting Frequency: Continuous Encounter Diagnosis ICD-10-CM 1. Left shoulder pain, unspecified chronicity M25.512 2. 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 Site: L shoulder joint Medications: 80 mg triamcinolone acetonide 40 mg/mL Anesthetics: 4 mL bupivacaine (PF) 0.25 % (2.5 mg/mL) Outcome: Tolerated well, no immediate complications Post-injection instructions were reviewed with the patient and the patient voiced understanding of these instructions. Dominick Payton MD Shoulder AND Elbow Surgeon Department of Orthopaedic Surgery [facility] Referring Provider: SELF [200] Allergies As of Date: 03/24/2024 (No Known Allergies) Date Reviewed: 03/24/2024 Reviewed by: Gilkerson, Eduardo, OIL INSPECTOR - Fully Assessed Reason for Visit: Follow Up [171] Pain [78] Injections [199] Primary Visit Diagnosis:Left shoulder pain, unspecified chronicity [M25.512] Other Visit Diagnosis:Failure of rotator cuff repair [M96.89] Order(s):Large Joint Arthro/Inj: L shoulder joint [LLJ433] Order #: [id number] [] bupivacaine (PF) 0.25 % (2.5 mg/mL) 4 mL injection (SENSORCAINE MPF)Disp: Rfl: [] triamcinolone acetonide 80 mg injection (KeNALog 40)Disp: Rfl: Prescriptions as of 03/24/2024 - gabapentin (NEURONTIN) 300 mg capsule Take 2 capsules by mouth three times a day for 180 days. - omeprazole (PRILOSEC) 40 mg capsule Take 1 capsule by mouth once daily. - potassium chloride (K-TAB) 10 mEq tablet Take 1 tablet by mouth daily with breakfast. take with furosemide. - tiZANidine (ZANAFLEX) 4 mg tablet Take 1 tablet by mouth every 8 hours as needed. - lisinopril (ZESTRIL) 30 mg tablet Take 1 tablet by mouth once daily. - aspirin 81 mg chewable tablet Take 1 tablet by mouth once daily. - OXYGEN, HOME THERAPY, Inhale 2-4 L/min as instructed continuous. - Blood Pressure Monitor (BLOOD PRESSURE KIT) 1 Each once daily. - diclofenac (VOLTAREN) 1 % topical gel Apply 2 g to affected area two times a day. - methIMAzole (TAPAZOLE) 5 mg tablet Take 1 tablet by mouth once daily. - Nebulizer Accessories kit 1 Each three times a day as needed. - Nebulizer and Compressor For Neb 1 Each once daily. - ipratropium-albuterol (DUONEB) 0.5 mg-3 mg(2.5 mg base)/3 mL nebu Inhale 3 mL as instructed three times a day. - furosemide (LASIX) 20 mg tablet Take 1 tablet by mouth once daily. Take in the morning - albuterol HFA (VENTOLIN HFA) 90 mcg/actuation inhaler Inhale 2 Puffs as instructed every 4 hours as needed. - Incontinence Pad, Liner, Disp pads 2-3x daily for urge incontinence - jmuymarkmj-cotmjtat-tdte oterol (BREZTRI) 160-9-4.8 mcg/actuation HFA aerosol inhaler Inhale 2 Puffs as instructed twice daily. - Spirometers and Accessories deidre Patient needs an inspiratory spirometer - MEDICAL SUPPLY Hand rails- for the shower and rest room - Blood Pressure Monitor (BLOOD PRESSURE KIT) 1 Each once daily. - atorvastatin (LIPITOR) 40 mg tablet Take 1 tablet by mouth once daily. Problem List As Of Date 03/24/2024 Noted Resolved Weakness [R53.1] 11/19/2011 Back pain without radiation [M54.9] 04/17/2016 Essential hypertension [I10] 04/17/2016 Depression [F32.A] 04/17/2016 H/O: substance abuse [F19.11] 04/17/2016 Chronic use of opiate drugs therapeutic purpose*04/17/2016 COPD (chronic obstructive pulmonary disease) (H*04/17/2016 Spondylosis of lumbar region without myelopathy*06/01/2016 Chronic hepatitis C without hepatic coma (HCC) *06/07/2020 Cervical radiculopathy [M54.12] 06/15/2020 Cervical spondylosis without myelopathy [M47.81*06/15/2020 Lumbosacral spondylosis without myelopathy [M47*06/15/2020 Insomnia [G47.00] 09/21/2020 PAD (peripheral artery disease) (HCC) [I73.9] 09/21/2020 SOB (shortness of breath) [R06.02] 10/17/2020 Pre-operative cardiovascular examination [Z01.8*10/17/2020 Chronic left shoulder pain [M25.512, G89.29] 11/01/2020 Other hyperlipidemia [E78.49] 12/12/2020 Urge incontinence [N39.41] 04/05/2021 Acute right-sided low back pain without sciatic*05/03/2021 (more content not included)... Normal [facility] CNOVon 12-17-2023 CNOV Office Visit (AGHWW1 ) -------- DIANNE ALVES ([id number]) 1955 F Date Time Provider Department 12/17/23 10:45 AM DOMINICK PAYTON AGHWW1 During your visit today, we recorded the following information about you: Respiration Weight Height 16/minute 98.4 kg 1.676 m Filipe AdriánTim 12/17/2023 10:50 AM Signed REVIEW OF SYSTEMS: GENERAL: Well developed, well nourished. No acute distress PAIN: left shoulder pain CARDIOVASCULAR: Negative for chest pain, leg swelling and palpations. MSK: Negative for joint swelling SKIN: Negative for lesions, rash, itching, metal sensitivity NEURO: Negative for seizure, trauma, numbness/tingling of extremities. ENDOCRINE: Negative for diabetic associated symptoms HEMATOLOGY: Negative for excessive bleeding, clots, bleeding disorders. Dominick Payton MD 12/17/2023 10:50 AM Signed PAIN EVALUATION 12/17/2023 1025 Pain Level: 8 Pain Location: Shoulder-Left Description: Aching;Sore Duration Amount of Time: 6 Duration Units: Weeks Frequency: Continuous Intervention/Comfort measure: Medication Encounter Diagnosis ICD-10-CM 1. 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 Left shoulder pain, unspecified chronicity M25.512 Dianne Alves returns today requesting another injection for her left shoulder. The injection worked well at her last visit and she would like to avoid any need for surgery. We discussed that she should return in 3 months after today's injection to get on a schedule for continued medical management. Large Joint Arthro/Inj: L shoulder joint 12/17/2023 10:49 AM The procedure site was prepped in the usual sterile fashion. Site: L shoulder joint Medications: 80 mg triamcinolone acetonide 40 mg/mL Anesthetics: 4 mL bupivacaine (PF) 0.25 % (2.5 mg/mL) Outcome: Tolerated well, no immediate complications Post-injection instructions were reviewed with the patient and the patient voiced understanding of these instructions. Dominick Payton MD Shoulder AND Elbow Surgeon Department of Orthopaedic Surgery [facility] Allergies As of Date: 12/17/2023 (No Known Allergies) Date Reviewed: 12/17/2023 Reviewed by: Adrián Tamayo Tech - Fully Assessed Reason for Visit: Follow Up [171] Primary Visit Diagnosis:Failure of rotator cuff repair [M96.89] Other Visit Diagnosis:Left shoulder pain, unspecified chronicity [M25.512] Order(s):Large Joint Arthro/Inj: L shoulder joint [ROA332] Order #: [id number] [] bupivacaine (PF) 0.25 % (2.5 mg/mL) 4 mL injection (SENSORCAINE MPF)Disp: Rfl: [] triamcinolone acetonide 80 mg injection (KeNALog 40)Disp: Rfl: Prescriptions as of 12/17/2023 - gabapentin (NEURONTIN) 300 mg capsule Take 2 capsules by mouth three times a day for 120 days. - PERCOCET 5-325 mg tablet Take 1 tablet by mouth every 6 hours as needed for pain for up to 5 days. - methIMAzole (TAPAZOLE) 5 mg tablet Take 1 tablet by mouth once daily. - lidocaine 5 % gel Apply topically to area of concern up to 6 times daily. - tiZANidine (ZANAFLEX) 2 mg tablet Take 1-2 tablets every 8 hours as needed for pain/muscle spasms. - Nebulizer Accessories kit 1 Each three times a day as needed. - Nebulizer and Compressor For Neb 1 Each once daily. - ipratropium-albuterol (DUONEB) 0.5 mg-3 mg(2.5 mg base)/3 mL nebu Inhale 3 mL as instructed three times a day. - diclofenac (VOLTAREN) 1 % topical gel Apply 2 g to affected area two times a day. - lisinopril (ZESTRIL) 30 mg tablet Take 1 tablet by mouth once daily. - gabapentin (NEURONTIN) 100 mg capsule Take 1 capsule by mouth daily at bedtime for 90 days. Take in addition to 300mg dose to equal 400mg before bed. - potassium chloride (K-TAB) 10 mEq tablet Take 1 tablet by mouth daily with breakfast. take with furosemide. - furosemide (LASIX) 20 mg tablet Take 1 tablet by mouth once daily. Take in the morning - albuterol HFA (VENTOLIN HFA) 90 mcg/actuation inhaler Inhale 2 Puffs as instructed every 4 hours as needed. - Incontinence Pad, Liner, Disp pads 2-3x daily for urge incontinence - omeprazole (PRILOSEC) 40 mg capsule Take 1 capsule by mouth once daily. - meloxicam (MOBIC) 15 mg tablet Take 1 tablet by mouth once daily. Take with food. - txzocrrdcf-xopzttdb-tmri oterol (BREZTRI) 160-9-4.8 mcg/actuation HFA aerosol inhaler Inhale 2 Puffs as instructed twice daily. - Spirometers and Accessories deidre Patient needs an inspiratory spirometer - MEDICAL SUPPLY Hand rails- for the shower and rest room - Blood Pressure Monitor (BLOOD PRESSURE KIT) 1 Each once daily. - atorvastatin (LIPITOR) 40 mg tablet Take 1 tablet by mouth once daily. - aspirin 81 mg chewable tablet Take 1 tablet by mouth once daily. Problem List As Of Date 12/17/2023 Noted Resolved Weakness [R53. (more content not included)... Normal [facility] Absolute lymphocyte countOrd ered By: Debbie Delgadillo on 11-21-2023 Lymphocytes Auto (Unsp spec) [#/Vol] 2.03 10*3/uL 0.83-4.51 [facility] Automated lymphocyte count a s percentage of total leukocytesOrdered By: Debbie Delgadillo on 11-21-2023 Lymphocytes/100 WBC Auto (Unsp spec) 26.8 % 19-41 [facility] Basophil percentageOrdered B y: Debbie Delgadillo on 11-21-2023 Basophil percentage 0-5 SEEN /hpf 0-5 [facility] Basophils/100 WBC (Bld) 0.5 % 0-1 [facility] Bilirubin [Mass/Vol] 0.70 mg/dL 0.20-1.00 [facility] Comment on above: For patients on eltr ombopag therapy, use of Dimension [place] TBIL is not recommended. Chloride [Moles/Vol] 112 mmol/L 98-107 [facility] Eosinophils/100 WBC (Bld) 0.5 % 0-5 [facility] Glucose [Mass/Vol] 97 mg/dL 74-106 [facility] Hemoglobin (Bld) [Mass/Vol] 15.8 g/dL 12.0-15.0 [facility] Monocytes/100 WBC (Bld) 7.3 % 0-10 [facility] Neutrophils (Bld) [#/Vol] 4.9 10*3/uL 2.0-7.7 [facility] Neutrophils/100 WBC (Bld) 64.6 % 47-70 [facility] Potassium [Moles/Vol] 4.0 mmol/L 3.5-5.1 [facility] Comment on above: Slight Hemolysis, Re sult may be falsely increased. Protein [Mass/Vol] 7.4 g/dL 6.4-8.2 [facility] Sodium [Moles/Vol] 138 mmol/L 136-145 [facility] WBC (Bld) [#/Vol] 7.6 10*3/uL 4.4-11.0 [facility] Bilirubin Test strip Ql (U)O rdered By: Debbie Delgadillo on 11-21-2023 Bilirubin Ql (U) Negative Negative [facility] Determination of erythrocyte mean corpuscular volume (MCV)Ordered By: Debbie Delgadillo on 11-21-2023 MCV (RBC) [Entitic vol] 88.4 fL 81-99 [facility] Direct bilirubinOrdered By: Debbie Delgadillo on 11-21-2023 Bilirubin.direct [Mass/Vol] 0.14 mg/dL 0.00-0.30 [facility] Erythrocyte distribution wid th ratioOrdered By: Debbie Delgadillo on 11-21-2023 Erythrocyte distribution width (RBC) [Ratio] 13.3 % 11.6-14.6 [facility] Erythrocyte distribution wid th standard deviationOrdered By: Debbie Delgadillo on 11-21-2023 Erythrocyte distribution width (RBC) [Entitic vol] 43.2 fL 35.1-43.9 [facility] Hematocrit Auto (Bld) [Volum e fraction]Ordered By: Debbie Delgadillo on 11-21-2023 Hematocrit (Bld) [Volume fraction] 49.6 % 37-47 [facility] Immature granulocytes/100 WB C Auto (Bld)Ordered By: Debbie Delgadillo on 11-21-2023 Immature granulocytes/100 WBC (Bld) 0.300 % 0.0-0.9 [facility] Comment on above: IG% - Immature Granu locytes (promyelocytes, myelocytes and metamyelocytes) > 1% indicates that a LEFT SHIFT is Present. Ketones Test strip Ql (U)Ord ered By: Debbie Delgadillo on 11-21-2023 Ketones Ql (U) 15 mg/dl Negative [facility] Laboratory - Chemistry and C hemistry - challengeOrdered By: Debbie Delgadillo on 11-21-2023 ALP [Catalytic activity/Vol] 88 U/L 45-117 [facility] ALT [Catalytic activity/Vol] 26 U/L 13-56 [facility] CO2 [Moles/Vol] 23.0 mmol/L 21.0-32.0 [facility] Globulin (S) [Mass/Vol] 3.7 g/dL 2.2-4.2 [facility] Urea nitrogen/Creatinine [Mass ratio] 19.4 mg/mg 10-20 [facility] Laboratory - Hematology and Cell countsOrdered By: Debbie Delgadillo on 11-21-2023 MCH (RBC) [Entitic mass] 28.2 pg 27.0-32.0 [facility] MCHC (RBC) [Mass/Vol] 31.9 g/dL 32-36 [facility] Nucleated RBC/100 WBC (Bld) [Ratio] 0 % 0-5 [facility] Platelet mean volume (Bld) [Entitic vol] 10.5 fL 6.2-12.0 [facility] Platelets (Bld) [#/Vol] 196 10*3/uL 150-450 [facility] Mucus LM Ql (Urine sed)Order ed By: Debbie Delgadillo on 11-21-2023 Mucus Ql (Urine sed) 0 SEEN /hpf [facility] Nitrite Test strip Ql (U)Ord ered By: Debbie Delgadillo on 11-21-2023 Nitrite Ql (U) Negative Negative [facility] No Panel InformationOrdered By: Debbie Delgadillo on 11-21-2023 Troponin I High Sensitivity 64 pg/mL 3.0-54.0 [facility] Comment on above: Please Note: New Fina t Units and Gender Specific Reference Ranges. For more information see Policy Stat Procedure [place] High Sensitivity Troponin (TNIH) and attachments. Urine RBC 0 SEEN /hpf 0-5 [facility] Estimated Creatinine Clearance Calc 64.92 ml/min [facility] Estimated GFR (MDRD) Amer 73 mL/min >60 [facility] Comment on above: GFR Calc Estimated GFR (MDRD) Non-Af Amer 60 mL/min >60 [facility] Comment on above: Non- GFR Calc Protein Test strip Ql (U)Ord ered By: Debbie Delgadillo on 11-21-2023 Protein Ql (U) 30 mg/dl Negative [facility] RBC Auto (Bld) [#/Vol]Ordere d By: Debbie Delgadillo on 11-21-2023 RBC (Bld) [#/Vol] 5.61 10*6/uL 4.2-5.4 [facility] Serum or plasma calcium margarita urement (mass/volume)Ordered By: Debbie Delgadillo on 11-21-2023 Calcium [Mass/Vol] 9.7 mg/dL 8.5-10.1 [facility] Serum or plasma creatinine m easurement (mass/volume)Ordered By: Debbie Delgadillo on 11-21-2023 Creatinine [Mass/Vol] 0.98 mg/dL 0.55-1.02 [facility] Comment on above: The validity of the calculated GFR & GFRAA in patients over 70 years has not been determined. Clinical correlation is essential. Serum or plasma urea nitroge n measurement (mass/volume)Ordered By: Debbie Delgadillo on 11-21-2023 Urea nitrogen [Mass/Vol] 19 mg/dL 7-18 [facility] Squamous epithelial cells de tection in urine sediment by light microscopyOrdered By: Debbie Delgadillo on 11-21-2023 Epithelial cells.squamous LM Ql (Urine sed) 0 SEEN /hpf 5-10 [facility] Thin prep Papanicolaou smear with manual screeningOrdered By: Debbie Delgadillo on 11-21-2023 Thin prep Papanicolaou smear with manual screening 3.7 g/dL 3.2-5.0 [facility] Thin prep Papanicolaou smear with manual screening 17 U/L 15-37 [facility] Comment on above: Slight Hemolysis, Re sult may be falsely increased. Thin prep Papanicolaou smear with manual screening 3 5-15 [facility] Urine blood detectionOrdered By: Debbie Delgadillo on 11-21-2023 RBC Ql (U) Negative Negative [facility] Urine clarityOrdered By: Milla Delgadillo on 11-21-2023 Clarity (U) Clear Clear [facility] Urine color determinationOrd ered By: Debbie Delgadillo on 11-21-2023 Color (U) Yellow Yellow [facility] Urine glucose detectionOrder ed By: Debbie Delgadillo on 11-21-2023 Glucose Ql (U) Normal mg/dl Normal [facility] Urine leukocyte esterase det ection by dipstickOrdered By: Debbie Delgadillo on 11-21-2023 Leukocyte esterase Test strip Ql (U) 25 /ul Negative [facility] Urine pHOrdered By: Debbie Delgadillo on 11-21-2023 pH (U) 6.0 [pH] 5.0 - 8.0 [facility] Urine sediment bacteria coun t by microscopy (number/high power field)Ordered By: Debbie Delgadillo on 11-21-2023 Bacteria LM.HPF (Urine sed) [#/Area] 0 /[HPF] None Seen [facility] Urine specific gravity measu rementOrdered By: Debbie Delgadillo on 11-21-2023 Specific gravity (U) [Rel density] 1.020 1.002-1.030 [facility] Urine urobilinogen measureme ntOrdered By: Debbie Delgadillo on 11-21-2023 Urobilinogen Ql (U) Normal mg/dl Normal [facility] CNOVon 11-05-2023 CNOV Office Visit ([id number] ) -------- DIANNE ALVES ([id number]) 1955 F Date Time Provider Department 11/05/23 1:15 PM DOMINICK PAYTON [id number] During your visit today, we recorded the following information about you: Temperature Weight Height 98.3 degrees 102.1 kg 1.676 m Diogenes Varela Tech 11/13/2023 1:13 PM Signed REVIEW OF SYSTEMS: GENERAL: Well developed, well nourished. No acute distress PAIN: Negative for pain, history of chronic pain or current treatment for chronic pain conditions CARDIOVASCULAR: Negative for chest pain, leg swelling and palpations. MSK: Negative for joint swelling SKIN: Rash yes NEURO: Numbness/tingling of extremties ENDOCRINE: Negative for diabetic associated symptoms HEMATOLOGY: Clots yes Dominick Payton MD 11/13/2023 1:13 PM Signed PAIN EVALUATION 11/05/2023 1317 Pain Level: 8 [...] AND Elbow Surgeon Department of Orthopaedic Surgery [facility] Eduardo Peña LPN 11/13/2023 1:13 PM Signed Injection prepared per Dr. Payton's order and handed directly to him. 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 - Nebulizer Accessories kit 1 Each three times a day as needed. - Nebulizer and Compressor For Neb 1 Each once daily. - ipratropium-albuterol (DUONEB) 0.5 mg-3 mg(2.5 mg base)/3 mL nebu Inhale 3 mL as instructed three times a day. - diclofenac (VOLTAREN) 1 % topical gel Apply 2 g to affected area two times a day. - lisinopril (ZESTRIL) 30 mg tablet Take 1 tablet by mouth once daily. - gabapentin (NEURONTIN) 100 mg capsule Take 1 capsule by (more content not included)... Normal [facility] Basophil percentageOrdered B y: Aquiles Jones on 08-13-2023 Chloride [Moles/Vol] 101 mmol/L 98-107 [facility] Glucose [Mass/Vol] 119 mg/dL 74-106 [facility] Comment on above: Fasting Glucose resu lt from 100 to 125 mg/dL suggests IMPAIRED HOMEOSTASIS per A.D.A. criteria. Potassium [Moles/Vol] 4.8 mmol/L 3.5-5.1 [facility] Sodium [Moles/Vol] 135 mmol/L 136-145 [facility] WBC (Bld) [#/Vol] 6.6 10*3/uL 4.4-11.0 [facility] Blood erythrocytes count (nu mber/volume)Ordered By: Aquiles Jones on 08-13-2023 RBC (Bld) [#/Vol] 4.61 10*6/uL 4.2-5.4 [facility] Blood hemoglobin measurement (mass/volume)Ordered By: Aquiles Jones on 08-13-2023 Hemoglobin (Bld) [Mass/Vol] 13.5 g/dL 12.0-15.0 [facility] Blood platelet mean volumeOr dered By: Aquiles Jones on 08-13-2023 Platelet mean volume (Bld) [Entitic vol] 10.8 fL 6.2-12.0 [facility] Determination of erythrocyte mean corpuscular volume (MCV)Ordered By: Aquiles Jones on 08-13-2023 MCV (RBC) [Entitic vol] 93.3 fL 81-99 [facility] Hematocrit Auto (Bld) [Volum e fraction]Ordered By: Aquiles Jonse on 08-13-2023 Hematocrit (Bld) [Volume fraction] 43.0 % 37-47 [facility] Laboratory - Chemistry and C hemistry - challengeOrdered By: Aquiles Jones on 08-13-2023 CO2 [Moles/Vol] 27.0 mmol/L 21.0-32.0 [facility] Urea nitrogen/Creatinine [Mass ratio] 21.5 mg/mg 10-20 [facility] Laboratory - Hematology and Cell countsOrdered By: Aquiles Jones on 08-13-2023 Erythrocyte distribution width (RBC) [Entitic vol] 52.2 fL 35.1-43.9 [facility] Erythrocyte distribution width (RBC) [Ratio] 15.0 % 11.6-14.6 [facility] MCH (RBC) [Entitic mass] 29.3 pg 27.0-32.0 [facility] MCHC Auto (RBC) [Mass/Vol]Or dered By: Aquiles Jones on 08-13-2023 MCHC (RBC) [Mass/Vol] 31.4 g/dL 32-36 [facility] No Panel InformationOrdered By: Aquiles Jones on 08-13-2023 Estimated GFR (MDRD) Amer 57 mL/min >60 [facility] Comment on above: GFR Calc Estimated GFR (MDRD) Non-Af Amer 47 mL/min >60 [facility] Comment on above: Non- GFR Calc Platelets bldOrdered By: Erika Jones on 08-13-2023 Platelets (Bld) [#/Vol] 304 10*3/uL 150-450 [facility] Serum or plasma calcium margarita urement (mass/volume)Ordered By: Aquiles Jones on 08-13-2023 Calcium [Mass/Vol] 9.4 mg/dL 8.5-10.1 [facility] Serum or plasma creatinine m easurement (mass/volume)Ordered By: Aquiles Jones on 08-13-2023 Creatinine [Mass/Vol] 1.21 mg/dL 0.55-1.02 [facility] Comment on above: The validity of the calculated GFR & GFRAA in patients over 70 years has not been determined. Clinical correlation is essential. Serum or plasma urea nitroge n measurement (mass/volume)Ordered By: Aquiles Jones on 08-13-2023 Urea nitrogen [Mass/Vol] 26 mg/dL 7-18 [facility] Thin prep Papanicolaou smear with manual screeningOrdered By: Aquiles Jones on 08-13-2023 Thin prep Papanicolaou smear with manual screening 7 5-15 [facility] Basophil percentageOrdered B y: Adrián Burris on 08-12-2023 Chloride [Moles/Vol] 102 mmol/L 98-107 [facility] Glucose [Mass/Vol] 148 mg/dL 74-106 [facility] Comment on above: Fasting Glucose resu lt greater than or equal to 126 mg/dL suggests DIABETES MELLITUS per A.D.A. criteria. Potassium [Moles/Vol] 5.1 mmol/L 3.5-5.1 [facility] Sodium [Moles/Vol] 138 mmol/L 136-145 [facility] Laboratory - Chemistry and C hemistry - challengeOrdered By: Adrián Burris on 08-12-2023 CO2 [Moles/Vol] 31.0 mmol/L 21.0-32.0 [facility] Urea nitrogen/Creatinine [Mass ratio] 22.1 mg/mg 10-20 [facility] No Panel InformationOrdered By: Adrián Burris on 08-12-2023 Estimated Creatinine Clearance Calc 37.58 ml/min [facility] Estimated GFR (MDRD) Amer 50 mL/min >60 [facility] Comment on above: GFR Calc Estimated GFR (MDRD) Non-Af Amer 41 mL/min >60 [facility] Comment on above: Non- GFR Calc Serum or plasma calcium margarita urement (mass/volume)Ordered By: Adrián Burris on 08-12-2023 Calcium [Mass/Vol] 9.0 mg/dL 8.5-10.1 [facility] Serum or plasma creatinine m easurement (mass/volume)Ordered By: Adrián Burris on 08-12-2023 Creatinine [Mass/Vol] 1.36 mg/dL 0.55-1.02 [facility] Comment on above: The validity of the calculated GFR & GFRAA in patients over 70 years has not been determined. Clinical correlation is essential. Serum or plasma urea nitroge n measurement (mass/volume)Ordered By: Adrián Burris on 08-12-2023 Urea nitrogen [Mass/Vol] 30 mg/dL 7-18 [facility] Thin prep Papanicolaou smear with manual screeningOrdered By: Adrián Burris on 08-12-2023 Thin prep Papanicolaou smear with manual screening 5 5-15 [facility] Absolute lymphocyte countOrd ered By: Julio Duong on 08-11-2023 Lymphocytes Auto (Unsp spec) [#/Vol] 2.50 10*3/uL 0.83-4.51 [facility] Basophil percentageOrdered B y: Julio Duong on 08-11-2023 Basophils/100 WBC (Bld) 0.7 % 0-1 [facility] Eosinophils/100 WBC (Bld) 6.7 % 0-5 [facility] Neutrophils (Bld) [#/Vol] 2.3 10*3/uL 2.0-7.7 [facility] Neutrophils/100 WBC (Bld) 40.1 % 47-70 [facility] WBC (Bld) [#/Vol] 5.7 10*3/uL 4.4-11.0 [facility] Blood erythrocytes count (nu mber/volume)Ordered By: Julio Duong on 08-11-2023 RBC (Bld) [#/Vol] 4.50 10*6/uL 4.2-5.4 [facility] Blood hemoglobin measurement (mass/volume)Ordered By: Julio Duong on 08-11-2023 Hemoglobin (Bld) [Mass/Vol] 12.9 g/dL 12.0-15.0 [facility] Blood lymphocytes/100 leukoc ytesOrdered By: Julio Duong on 08-11-2023 Lymphocytes/100 WBC (Bld) 44.2 % 19-41 [facility] Blood monocytes/100 leukocyt esOrdered By: Julio Duong on 08-11-2023 Monocytes/100 WBC (Bld) 8.1 % 0-10 [facility] Blood platelet mean volumeOr dered By: Julio Duong on 08-11-2023 Platelet mean volume (Bld) [Entitic vol] 10.2 fL 6.2-12.0 [facility] Determination of erythrocyte mean corpuscular volume (MCV)Ordered By: Julio Duong on 08-11-2023 MCV (RBC) [Entitic vol] 91.8 fL 81-99 [facility] Hematocrit Auto (Bld) [Volum e fraction]Ordered By: Julio Duong on 08-11-2023 Hematocrit (Bld) [Volume fraction] 41.3 % 37-47 [facility] Laboratory - Hematology and Cell countsOrdered By: Julio Duong on 08-11-2023 Erythrocyte distribution width (RBC) [Entitic vol] 50.7 fL 35.1-43.9 [facility] Erythrocyte distribution width (RBC) [Ratio] 15.0 % 11.6-14.6 [facility] Immature granulocytes/100 WBC (Bld) 0.200 % 0.0-0.9 [facility] Comment on above: IG% - Immature Granu locytes (promyelocytes, myelocytes and metamyelocytes) > 1% indicates that a LEFT SHIFT is Present. MCH (RBC) [Entitic mass] 28.7 pg 27.0-32.0 [facility] Nucleated RBC/100 WBC (Bld) [Ratio] 0 % 0-5 [facility] MCHC Auto (RBC) [Mass/Vol]Or dered By: Julio Duong on 08-11-2023 MCHC (RBC) [Mass/Vol] 31.2 g/dL 32-36 [facility] Platelets bldOrdered By: Conchis Duong on 08-11-2023 Platelets (Bld) [#/Vol] 268 10*3/uL 150-450 [facility] Basophil percentageOrdered B y: Miguelina Castanon on 08-06-2023 Bilirubin [Mass/Vol] 0.30 mg/dL 0.20-1.00 [facility] Comment on above: For patients on eltr ombopag therapy, use of Dimension [place] TBIL is not recommended. Cholesterol [Mass/Vol] 131 mg/dL <200 [facility] Comment on above: <200 mg/dL Desirable 200-240 mg/dL Borderline >240 mg/dL High Risk Protein [Mass/Vol] 6.2 g/dL 6.4-8.2 [facility] Triglyceride [Mass/Vol] 108 mg/dL <199 [facility] Comment on above: The drugs N-Acetylcy steine and Metamizole may falsely depress this assay.Serum Triglycerides Reference Interval Normal <150 mg/dL Borderline high 150 - 199 mg/dL High 200 - 499 mg/dL Very High > or = 500 mg/dL Laboratory - Chemistry and C hemistry - challengeOrdered By: Miguelina Castanon on 08-06-2023 ALP [Catalytic activity/Vol] 77 U/L 45-117 [facility] ALT [Catalytic activity/Vol] 20 U/L 13-56 [facility] Globulin (S) [Mass/Vol] 3.4 g/dL 2.2-4.2 [facility] Serum or plasma albumin margarita urement (mass/volume)Ordered By: Miguelina Lg on 08-06-2023 Albumin [Mass/Vol] 2.8 g/dL 3.2-5.0 [facility] Serum or plasma albumin/glob ulin mass ratioOrdered By: [facility] Lg on 08-06-2023 Albumin/Globulin [Mass ratio] 0.8 {ratio} 0.9-2.4 [facility] Serum or plasma cholesterol in HDL measurement (mass/volume)Ordered By: Miguelina Lg on 08-06-2023 Cholesterol in HDL [Mass/Vol] 46 mg/dL >40 [facility] Comment on above: The drugs N-Acetylcy steine and Metamizole may falsely depress this assay. Reference Range HDL <40 mg/dL Low HDL Cholesterol HDL >or= 60 mg/dL High HDL Cholesterol Serum or plasma cholesterol in VLDL measurement (mass/volume)Ordered By: [facility] Lg on 08-06-2023 Cholesterol in VLDL [Mass/Vol] 22 mg/dL 5-40 [facility] Serum or plasma low density lipoprotein (LDL) cholesterol measurement (mass/volume)Ordered By: [facility] Lg on 08-06-2023 Cholesterol in LDL [Mass/Vol] 63 mg/dL 0-130 [facility] Thin prep Papanicolaou smear with manual screeningOrdered By: Miguelina Castanon on 08-06-2023 Thin prep Papanicolaou smear with manual screening 14 U/L 15-37 [facility] Absolute lymphocyte countOrd ered By: Castro Lane on 08-05-2023 Lymphocytes Auto (Unsp spec) [#/Vol] 2.38 10*3/uL 0.83-4.51 [facility] Basophil percentageOrdered B y: Castro Lane on 08-05-2023 Basophils/100 WBC (Bld) 0.6 % 0-1 [facility] Chloride [Moles/Vol] 103 mmol/L 98-107 [facility] Eosinophils/100 WBC (Bld) 5.7 % 0-5 [facility] Glucose [Mass/Vol] 115 mg/dL 74-106 [facility] Comment on above: Fasting Glucose resu lt from 100 to 125 mg/dL suggests IMPAIRED HOMEOSTASIS per A.D.A. criteria. Neutrophils (Bld) [#/Vol] 3.1 10*3/uL 2.0-7.7 [facility] Neutrophils/100 WBC (Bld) 48.3 % 47-70 [facility] Potassium [Moles/Vol] 5.2 mmol/L 3.5-5.1 [facility] Sodium [Moles/Vol] 137 mmol/L 136-145 [facility] WBC (Bld) [#/Vol] 6.3 10*3/uL 4.4-11.0 [facility] Blood erythrocytes count (nu mber/volume)Ordered By: Castro Lane on 08-05-2023 RBC (Bld) [#/Vol] 4.69 10*6/uL 4.2-5.4 [facility] Blood hemoglobin measurement (mass/volume)Ordered By: Castro Lane on 08-05-2023 Hemoglobin (Bld) [Mass/Vol] 13.4 g/dL 12.0-15.0 [facility] Blood lymphocytes/100 leukoc ytesOrdered By: Castro Lane on 08-05-2023 Lymphocytes/100 WBC (Bld) 37.6 % 19-41 [facility] Blood monocytes/100 leukocyt esOrdered By: Castro [address] on 08-05-2023 Monocytes/100 WBC (Bld) 7.6 % 0-10 [facility] Blood platelet mean volumeOr dered By: Castro Lane on 08-05-2023 Platelet mean volume (Bld) [Entitic vol] 10.5 fL 6.2-12.0 [facility] Determination of erythrocyte mean corpuscular volume (MCV)Ordered By: Castro Lane on 08-05-2023 MCV (RBC) [Entitic vol] 94.9 fL 81-99 [facility] Hematocrit Auto (Bld) [Volum e fraction]Ordered By: Castro Lane on 08-05-2023 Hematocrit (Bld) [Volume fraction] 44.5 % 37-47 [facility] Laboratory - Chemistry and C hemistry - challengeOrdered By: Miguelina Castanon on 08-05-2023 Magnesium [Mass/Vol] 2.6 mg/dL 1.6-2.6 [facility] Laboratory - Chemistry and C hemistry - challengeOrdered By: Castro Lane on 08-05-2023 CO2 [Moles/Vol] 30.0 mmol/L 21.0-32.0 [facility] Natriuretic peptide B (Bld) [Mass/Vol] 7.2 pg/mL 0-100 [facility] Urea nitrogen/Creatinine [Mass ratio] 21.5 mg/mg 10-20 [facility] Laboratory - Drug toxicology Ordered By: Castro Lane on 08-05-2023 Amphetamines Ql (U) Negative <1000 ng/mL [facility] Benzodiazepines Ql (U) Negative < 200 ng/mL [facility] Cannabinoids Screen Ql (U) Negative < 50 ng/mL [facility] Cocaine Ql (U) Negative < 300 ng/mL [facility] Opiates Ql (U) Positive < 300 ng/mL [facility] Laboratory - Hematology and Cell countsOrdered By: Castro Lane on 08-05-2023 Erythrocyte distribution width (RBC) [Entitic vol] 54.4 fL 35.1-43.9 [facility] Erythrocyte distribution width (RBC) [Ratio] 15.6 % 11.6-14.6 [facility] Immature granulocytes/100 WBC (Bld) 0.200 % 0.0-0.9 [facility] Comment on above: IG% - Immature Granu locytes (promyelocytes, myelocytes and metamyelocytes) > 1% indicates that a LEFT SHIFT is Present. MCH (RBC) [Entitic mass] 28.6 pg 27.0-32.0 [facility] Nucleated RBC/100 WBC (Bld) [Ratio] 0 % 0-5 [facility] MCHC Auto (RBC) [Mass/Vol]Or dered By: Castro Lane on 08-05-2023 MCHC (RBC) [Mass/Vol] 30.1 g/dL 32-36 [facility] No Panel InformationOrdered By: Miguelina Castanon on 08-05-2023 Troponin I High Sensitivity 64 pg/mL 3.0-54.0 [facility] Comment on above: Please Note: New Fina t Units and Gender Specific Reference Ranges. For more information see Policy Stat Procedure [place] High Sensitivity Troponin (TNIH) and attachments. No Panel InformationOrdered By: Woodrow Cardenas on 08-05-2023 D-Dimer Quantitative (PE/DVT) 9.13 FEU/ug/m 0.27-0.49 [facility] Comment on above: D-Dimer ELEVATED (>0 .49): Additional studies and clinicalassessments are indicated to conclude diagnosis of:Deep Vein Thrombosis (DVT) or Pulmonary Embolism (PE)CRITICAL VALUE VERIFIED. CALLED TO ROSALINDA MONTANO ([facility])08/05/23 09 Niles Mendoza.RESULTS READ BACK BY SAME. No Panel InformationOrdered By: Castro Lane on 08-05-2023 MDMA (Ecstasy) Screen Negative < 500 ng/mL [facility] Urine Barbiturates Screen Negative < 200 ng/mL [facility] Urine Drug Screen Comment [facility] Comment on above: CONFIRMATORY TESTING FOR ALL POSITIVE URINE DRUG SCREENRESULTS WILL ONLY BE SENT OUT UPON PHYSICIAN ORDER. VISTA Urine Drug Screen methods provide only preliminaryanalytical test results. A more specific alternate chemicalmethod must be used in order to obtain a confirmedanalytical result. Gas chromatography/mass spectrometery(GC/MS) is the preferred confirmatory method. Clinicalconsideration and professional judgement should be appliedto any drug of abuse test result, particularly whenpreliminary positive results are used. URINE TCA TESTING MUST BE ORDERED SEPARATELY. USE TESTMNEMONIC: [facility] Urine Methadone Screen Negative < 300 ng/mL [facility] Estimated Creatinine Clearance Calc 39.31 ml/min [facility] Estimated GFR (MDRD) Amer 53 mL/min >60 [facility] Comment on above: GFR Calc Estimated GFR (MDRD) Non-Af Amer 43 mL/min >60 [facility] Comment on above: Non- GFR Calc Troponin I High Sensitivity 73 pg/mL 3.0-54.0 [facility] Comment on above: Please Note: New Fina t Units and Gender Specific Reference Ranges. For more information see Policy Stat Procedure [place] High Sensitivity Troponin (TNIH) and attachments. Platelets bldOrdered By: Temo Laen on 08-05-2023 Platelets (Bld) [#/Vol] 244 10*3/uL 150-450 [facility] Serum or plasma calcium margarita urement (mass/volume)Ordered By: Castro Lane on 08-05-2023 Calcium [Mass/Vol] 9.2 mg/dL 8.5-10.1 [facility] Serum or plasma creatinine m easurement (mass/volume)Ordered By: Castro Lane on 08-05-2023 Creatinine [Mass/Vol] 1.30 mg/dL 0.55-1.02 [facility] Comment on above: The validity of the calculated GFR & GFRAA in patients over 70 years has not been determined. Clinical correlation is essential. Serum or plasma urea nitroge n measurement (mass/volume)Ordered By: Castro Lane on 08-05-2023 Urea nitrogen [Mass/Vol] 28 mg/dL 7-18 [facility] Thin prep Papanicolaou smear with manual screeningOrdered By: Castro Lane on 08-05-2023 Thin prep Papanicolaou smear with manual screening 4 5-15 [facility] Urine phencyclidine (PCP) de tectionOrdered By: Castro Lane on 08-05-2023 Phencyclidine Ql (U) Negative < 25 ng/mL [facility] Absolute lymphocyte countOrd ered By: Stef Bennett on 01-14-2023 Lymphocytes Auto (Unsp spec) [#/Vol] 1.72 10*3/uL 0.83-4.51 [facility] Basophil percentageOrdered B y: Stef Bennett on 01-14-2023 Ammonia (P) [Moles/Vol] 15.0 umol/L 11-32 [facility] Basophil percentage < 0.2 AI 0.0-0.9 [facility] Basophils/100 WBC (Bld) 0.3 % 0-1 [facility] Bilirubin [Mass/Vol] 0.40 mg/dL 0.20-1.00 [facility] Comment on above: For patients on eltr ombopag therapy, use of Dimension [place] TBIL is not recommended. Chloride [Moles/Vol] 109 mmol/L 98-107 [facility] Eosinophils/100 WBC (Bld) 4.0 % 0-5 [facility] Glucose [Mass/Vol] 146 mg/dL 74-106 [facility] Comment on above: Fasting Glucose resu lt greater than or equal to 126 mg/dL suggests DIABETES MELLITUS per A.D.A. criteria. LDH [Catalytic activity/Vol] 213 U/L 84-246 [facility] Neutrophils (Bld) [#/Vol] 3.7 10*3/uL 2.0-7.7 [facility] Neutrophils/100 WBC (Bld) 61.6 % 47-70 [facility] Potassium [Moles/Vol] 3.9 mmol/L 3.5-5.1 [facility] Protein [Mass/Vol] 7.3 g/dL 6.4-8.2 [facility] Sodium [Moles/Vol] 139 mmol/L 136-145 [facility] WBC (Bld) [#/Vol] 6.0 10*3/uL 4.4-11.0 [facility] Blood erythrocytes count (nu mber/volume)Ordered By: Stef Bennett on 01-14-2023 RBC (Bld) [#/Vol] 5.03 10*6/uL 4.2-5.4 [facility] Blood hemoglobin measurement (mass/volume)Ordered By: Stef Bennett on 01-14-2023 Hemoglobin (Bld) [Mass/Vol] 14.6 g/dL 12.0-15.0 [facility] Blood lymphocytes/100 leukoc ytesOrdered By: Stef Bennett on 01-14-2023 Lymphocytes/100 WBC (Bld) 28.6 % 19-41 [facility] Blood monocytes/100 leukocyt esOrdered By: Stef Bennett on 01-14-2023 Monocytes/100 WBC (Bld) 5.5 % 0-10 [facility] Blood platelet mean volumeOr dered By: Stef Bennett on 01-14-2023 Platelet mean volume (Bld) [Entitic vol] 10.3 fL 6.2-12.0 [facility] Determination of erythrocyte mean corpuscular volume (MCV)Ordered By: Stef Bennett on 01-14-2023 MCV (RBC) [Entitic vol] 89.3 fL 81-99 [facility] Erythrocyte sedimentation ra teOrdered By: Stef Bennett on 01-14-2023 ESR (Bld) [Velocity] 19 mm/h 0-30 [facility] HIV 1 and HIV-2 antibody ass ay with HIV-1 p24 antigen detectionOrdered By: Stef Bennett on 01-14-2023 HIV 1+2 Ab+HIV1 p24 Ag IA Ql Non-Reactive Nonreactive [facility] Hematocrit Auto (Bld) [Volum e fraction]Ordered By: Stef Bennett on 01-14-2023 Hematocrit (Bld) [Volume fraction] 44.9 % 37-47 [facility] INR in Blood by Coagulation assayOrdered By: Stef Bennett on 01-14-2023 INR Coag (Bld) [Relative time] 1.1 {INR} [facility] Laboratory - Chemistry and C hemistry - challengeOrdered By: Stef Bennett on 01-14-2023 ALP [Catalytic activity/Vol] 94 U/L 45-117 [facility] ALT [Catalytic activity/Vol] 24 U/L 13-56 [facility] CO2 [Moles/Vol] 23.0 mmol/L 21.0-32.0 [facility] Globulin (S) [Mass/Vol] 3.3 g/dL 2.2-4.2 [facility] Urea nitrogen/Creatinine [Mass ratio] 19.2 mg/mg 10-20 [facility] Laboratory - CoagulationOrde red By: Stef Bennett on 01-14-2023 PT Coag (PPP) [Time] 14.2 s 11.7-14.9 [facility] Laboratory - Hematology and Cell countsOrdered By: Stef Bennett on 01-14-2023 Erythrocyte distribution width (RBC) [Entitic vol] 46.4 fL 35.1-43.9 [facility] Erythrocyte distribution width (RBC) [Ratio] 14.1 % 11.6-14.6 [facility] Immature granulocytes/100 WBC (Bld) 0.000 % 0.0-0.9 [facility] Comment on above: IG% - Immature Granu locytes (promyelocytes, myelocytes and metamyelocytes) > 1% indicates that a LEFT SHIFT is Present. MCH (RBC) [Entitic mass] 29.0 pg 27.0-32.0 [facility] Nucleated RBC/100 WBC (Bld) [Ratio] 0 % 0-5 [facility] MCHC Auto (RBC) [Mass/Vol]Or dered By: Stef Friend on 01-14-2023 MCHC (RBC) [Mass/Vol] 32.5 g/dL 32-36 [facility] No Panel InformationOrdered By: Stef Friend on 01-14-2023 Centromere B Antibody <0.2 AI 0.0-0.9 [facility] Estimated GFR (MDRD) Amer 68 mL/min >60 [facility] Comment on above: GFR Calc Estimated GFR (MDRD) Non-Af Amer 56 mL/min >60 [facility] Comment on above: Non- GFR Calc Hepatitis C Antibody Reactive Nonreactive [facility] Comment on above: Previous reported re sult: Preliminary Reactive Edited by: TIMO on 01/15/23:0728 AMENDED REPORT 01/15/23 0728 HEPATITIS C AB previously reported as: Preliminary Reactive Non Reactive: < 0.8 Equivocal: >/= 0.8 to < 1.0 Reactive: >/= 1.0The CDC recommends that a reactive/equivocal HCV antibody result be followed up by the HCV Nucleic Acid Amplificationtest (104004) Miscellaneous Test See comment [facility] Comment on above: TEST RESULTS LIMITSH CV RNA Diagnosis, NAAHCV RNA, Quantitation HCV Not Detected IU/mLNo evidence of active HCV infection.Test Information: The quantitative range of this assay is 15 IU/mL to 100 million IU/mL. TESTING PERFORMED AT [facility]. ORIGINAL REPORT ON FILE IN LAB CONTAINS ADDITIONAL TEST SITE INFORMATION. 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 Antibody <0.2 AI 0.0-0.9 [facility] Platelets bldOrdered By: Pedro Bennett on 01-14-2023 Platelets (Bld) [#/Vol] 244 10*3/uL 150-450 [facility] Serum DNA double strand anti body assay (units/volume)Ordered By: Stef Bennett on 01-14-2023 DNA double strand Ab Qn (S) 3 [IU]/mL 0-9 [facility] Comment on above: Negative <5 Equivoca l 5 - 9 Positive >9 Serum Tia-1 antibody assay (u nits/volume)Ordered By: Stef Bennett on 01-14-2023 Tia-1 extractable nuclear Ab Qn (S) <0.2 AI 0.0-0.9 [facility] Serum Scl-70 extractable nuc lear antibody assay (units/volume)Ordered By: Stef Bennett on 01-14-2023 SCL-70 extractable nuclear Ab Qn (S) <0.2 AI 0.0-0.9 [facility] Serum Farah extractable nucl ear antibody detectionOrdered By: Stef Bennett on 01-14-2023 Farah extractable nuclear Ab Ql (S) <0.2 AI 0.0-0.9 [facility] Serum mitochondria antibody detectionOrdered By: Stef Bennett on 01-14-2023 Mitochondria Ab Ql (S) <20.0 Units 0.0-20.0 [facility] Comment on above: Negative 0.0 - 20.0 Equivocal 20.1 - 24.9 Positive >24.9Mitochondrial (M2) Antibodies are found in 90-96% ofpatients with primary biliary cirrhosis.Performed at: [address] [id number] Director: Curry Andrews PhD, Phone: [phone] Serum or plasma C reactive p rotein measurement (mass/volume)Ordered By: Stef Bennett on 01-14-2023 CRP [Mass/Vol] mg/L 0.0-3.0 [facility] Comment on above: C-Reactive Protein ( CRP) provides useful information for thediagnosis, therapy and monitoring of inflammatory processesand associated diseases. For the evaluation of Relative Riskfor Cardiovascular Disease, a High Sensitivity CRP (HSCRP)should be ordered. Serum or plasma albumin margarita urement (mass/volume)Ordered By: Stef Bennett on 01-14-2023 Albumin [Mass/Vol] 4.0 g/dL 3.2-5.0 [facility] Serum or plasma albumin/glob ulin mass ratioOrdered By: Stef Bennett on 01-14-2023 Albumin/Globulin [Mass ratio] 1.2 {ratio} 0.9-2.4 [facility] Serum or plasma calcium margarita urement (mass/volume)Ordered By: Stef Bennett on 01-14-2023 Calcium [Mass/Vol] 9.2 mg/dL 8.5-10.1 [facility] Serum or plasma creatinine m easurement (mass/volume)Ordered By: Stef Bennett on 01-14-2023 Creatinine [Mass/Vol] 1.04 mg/dL 0.55-1.02 [facility] Comment on above: The validity of the calculated GFR & GFRAA in patients over 70 years has not been determined. Clinical correlation is essential. Serum or plasma ferritin joseph surement (mass/volume)Ordered By: Stef Bennett on 01-14-2023 Ferritin [Mass/Vol] 67 ng/mL 8-252 [facility] Serum or plasma urea nitroge n measurement (mass/volume)Ordered By: Stef Bennett on 01-14-2023 Urea nitrogen [Mass/Vol] 20 mg/dL 7-18 [facility] Thin prep Papanicolaou smear with manual screeningOrdered By: Stef Bennett on 01-14-2023 Thin prep Papanicolaou smear with manual screening 21 U/L 15-37 [facility] Thin prep Papanicolaou smear with manual screening 7 5-15 [facility] Absolute lymphocyte countOrd ered By: Dr. Kingsley on 10-22-2022 Lymphocytes Auto (Unsp spec) [#/Vol] 2.52 10*3/uL 0.83-4.51 [facility] Basophil percentageOrdered B y: Dr. Kingsley on 10-22-2022 Basophils/100 WBC (Bld) 0.5 % 0-1 [facility] Chloride [Moles/Vol] 110 mmol/L 98-107 [facility] Eosinophils/100 WBC (Bld) 5.9 % 0-5 [facility] Glucose [Mass/Vol] 96 mg/dL 74-106 [facility] Neutrophils (Bld) [#/Vol] 2.9 10*3/uL 2.0-7.7 [facility] Neutrophils/100 WBC (Bld) 46.3 % 47-70 [facility] Potassium [Moles/Vol] 5.4 mmol/L 3.5-5.1 [facility] Comment on above: Moderate Hemolysis, Result may be falsely increased. Sodium [Moles/Vol] 138 mmol/L 136-145 [facility] WBC (Bld) [#/Vol] 6.3 10*3/uL 4.4-11.0 [facility] Blood erythrocytes count (nu mber/volume)Ordered By: Dr. Kingsley on 10-22-2022 RBC (Bld) [#/Vol] 4.77 10*6/uL 4.2-5.4 [facility] Blood hemoglobin measurement (mass/volume)Ordered By: Dr. Kingsley on 10-22-2022 Hemoglobin (Bld) [Mass/Vol] 14.1 g/dL 12.0-15.0 [facility] Blood lymphocytes/100 leukoc ytesOrdered By: Dr. Kingsley on 10-22-2022 Lymphocytes/100 WBC (Bld) 40.1 % 19-41 [facility] Blood monocytes/100 leukocyt esOrdered By: Dr. Kingsley on 10-22-2022 Monocytes/100 WBC (Bld) 7.0 % 0-10 [facility] Blood platelet mean volumeOr dered By: Dr. Kingsley on 10-22-2022 Platelet mean volume (Bld) [Entitic vol] 10.1 fL 6.2-12.0 [facility] Determination of erythrocyte mean corpuscular volume (MCV)Ordered By: Dr. Kingsley on 10-22-2022 MCV (RBC) [Entitic vol] 90.4 fL 81-99 [facility] Hematocrit Auto (Bld) [Volum e fraction]Ordered By: Dr. Kingsley on 10-22-2022 Hematocrit (Bld) [Volume fraction] 43.1 % 37-47 [facility] Laboratory - Chemistry and C hemistry - challengeOrdered By: Dr. Kingsley on 10-22-2022 CO2 [Moles/Vol] 22.0 mmol/L 21.0-32.0 [facility] Urea nitrogen/Creatinine [Mass ratio] 17.0 mg/mg 10-20 [facility] Laboratory - Hematology and Cell countsOrdered By: Dr. Kingsley on 10-22-2022 Erythrocyte distribution width (RBC) [Entitic vol] 45.9 fL 35.1-43.9 [facility] Erythrocyte distribution width (RBC) [Ratio] 13.9 % 11.6-14.6 [facility] Immature granulocytes/100 WBC (Bld) 0.200 % 0.0-0.9 [facility] Comment on above: IG% - Immature Granu locytes (promyelocytes, myelocytes and metamyelocytes) > 1% indicates that a LEFT SHIFT is Present. MCH (RBC) [Entitic mass] 29.6 pg 27.0-32.0 [facility] Nucleated RBC/100 WBC (Bld) [Ratio] 0 % 0-5 [facility] MCHC Auto (RBC) [Mass/Vol]Or dered By: Dr. Kingsley on 10-22-2022 MCHC (RBC) [Mass/Vol] 32.7 g/dL 32-36 [facility] No Panel InformationOrdered By: Dr. Kingsley on 10-22-2022 Estimated Creatinine Clearance Calc 46.25 ml/min [facility] Estimated GFR (MDRD) Amer 63 mL/min >60 [facility] Comment on above: GFR Calc Estimated GFR (MDRD) Non-Af Amer 52 mL/min >60 [facility] Comment on above: Non- GFR Calc Platelets bldOrdered By: Dr. Kingsley on 10-22-2022 Platelets (Bld) [#/Vol] 244 10*3/uL 150-450 [facility] Serum or plasma calcium margarita urement (mass/volume)Ordered By: Dr. Kingsley on 10-22-2022 Calcium [Mass/Vol] 9.2 mg/dL 8.5-10.1 [facility] Serum or plasma creatinine m easurement (mass/volume)Ordered By: Dr. Kingsley on 10-22-2022 Creatinine [Mass/Vol] 1.12 mg/dL 0.55-1.02 [facility] Comment on above: The validity of the calculated GFR & GFRAA in patients over 70 years has not been determined. Clinical correlation is essential. Serum or plasma urea nitroge n measurement (mass/volume)Ordered By: Dr. Kingsley on 10-22-2022 Urea nitrogen [Mass/Vol] 19 mg/dL 7-18 [facility] Thin prep Papanicolaou smear with manual screeningOrdered By: Dr. Kingsley on 10-22-2022 Thin prep Papanicolaou smear with manual screening 6 5-15 [facility] Absolute lymphocyte countOrd ered By: Dr. Marshall on 07-30-2022 Lymphocytes Auto (Unsp spec) [#/Vol] 2.42 10*3/uL 0.83-4.51 [facility] Basophil percentageOrdered B y: Dr. Marshall on 07-30-2022 Basophils/100 WBC (Bld) 0.7 % 0-1 [facility] Chloride [Moles/Vol] 106 mmol/L 98-107 [facility] Eosinophils/100 WBC (Bld) 6.9 % 0-5 [facility] Glucose [Mass/Vol] 100 mg/dL 74-106 [facility] Comment on above: Fasting Glucose resu lt from 100 to 125 mg/dL suggests IMPAIRED HOMEOSTASIS per A.D.A. criteria. Neutrophils (Bld) [#/Vol] 2.8 10*3/uL 2.0-7.7 [facility] Neutrophils/100 WBC (Bld) 45.4 % 47-70 [facility] Potassium [Moles/Vol] 3.9 mmol/L 3.5-5.1 [facility] Sodium [Moles/Vol] 140 mmol/L 136-145 [facility] WBC (Bld) [#/Vol] 6.1 10*3/uL 4.4-11.0 [facility] Blood erythrocytes count (nu mber/volume)Ordered By: Dr. Marshall on 07-30-2022 RBC (Bld) [#/Vol] 4.70 10*6/uL 4.2-5.4 [facility] Blood hemoglobin measurement (mass/volume)Ordered By: Dr. Marshall on 07-30-2022 Hemoglobin (Bld) [Mass/Vol] 14.1 g/dL 12.0-15.0 [facility] Blood lymphocytes/100 leukoc ytesOrdered By: Dr. Marshall on 07-30-2022 Lymphocytes/100 WBC (Bld) 39.5 % 19-41 [facility] Blood monocytes/100 leukocyt esOrdered By: Dr. Marshall on 07-30-2022 Monocytes/100 WBC (Bld) 7.2 % 0-10 [facility] Blood platelet mean volumeOr dered By: Dr. Marshall on 07-30-2022 Platelet mean volume (Bld) [Entitic vol] 10.3 fL 6.2-12.0 [facility] COVID-19 virus antigen assay Ordered By: Dr. Marshall on 07-30-2022 SARS-CoV-2 (COVID-19) Ag IA.rapid Ql (Resp) [facility] Determination of erythrocyte mean corpuscular volume (MCV)Ordered By: Dr. Marshall on 07-30-2022 MCV (RBC) [Entitic vol] 90.9 fL 81-99 [facility] Hematocrit Auto (Bld) [Volum e fraction]Ordered By: Dr. Marshall on 07-30-2022 Hematocrit (Bld) [Volume fraction] 42.7 % 37-47 [facility] Laboratory - Chemistry and C hemistry - challengeOrdered By: Dr. Marshall on 07-30-2022 CO2 [Moles/Vol] 30.0 mmol/L 21.0-32.0 [facility] Urea nitrogen/Creatinine [Mass ratio] 17.1 mg/mg 10- [facility] Laboratory - Hematology and Cell countsOrdered By: Dr. Marshall on 07-30-2022 Erythrocyte distribution width (RBC) [Entitic vol] 44.6 fL 35.1-43.9 [facility] Erythrocyte distribution width (RBC) [Ratio] 13.3 % 11.6-14.6 [facility] Immature granulocytes/100 WBC (Bld) 0.300 % 0.0-0.9 [facility] Comment on above: IG% - Immature Granu locytes (promyelocytes, myelocytes and metamyelocytes) > 1% indicates that a LEFT SHIFT is Present. MCH (RBC) [Entitic mass] 30.0 pg 27.0-32.0 [facility] Nucleated RBC/100 WBC (Bld) [Ratio] 0 % 0-5 [facility] MCHC Auto (RBC) [Mass/Vol]Or dered By: Dr. Marshall on 07-30-2022 MCHC (RBC) [Mass/Vol] 33.0 g/dL 32-36 [facility] No Panel InformationOrdered By: Dr. Marshall on 07-30-2022 Estimated Creatinine Clearance Calc 52.33 ml/min [facility] Estimated GFR (MDRD) Amer 72 mL/min >60 [facility] Comment on above: GFR Calc Estimated GFR (MDRD) Non-Af Amer 59 mL/min >60 [facility] Comment on above: Non- GFR Calc Platelets bldOrdered By: Dr. Marshall on 07-30-2022 Platelets (Bld) [#/Vol] 245 10*3/uL 150-450 [facility] Serum or plasma calcium margarita urement (mass/volume)Ordered By: Dr. Marshall on 07-30-2022 Calcium [Mass/Vol] 9.8 mg/dL 8.5-10.1 [facility] Serum or plasma creatinine m easurement (mass/volume)Ordered By: Dr. Marshall on 07-30-2022 Creatinine [Mass/Vol] 0.99 mg/dL 0.55-1.02 [facility] Comment on above: The validity of the calculated GFR & GFRAA in patients over 70 years has not been determined. Clinical correlation is essential. Serum or plasma urea nitroge n measurement (mass/volume)Ordered By: Dr. Marshall on 07-30-2022 Urea nitrogen [Mass/Vol] 17 mg/dL 7-18 [facility] Thin prep Papanicolaou smear with manual screeningOrdered By: Dr. Marshall on 07-30-2022 Thin prep Papanicolaou smear with manual screening 4 5-15 [facility] CKon 04-13-2020 CK [Catalytic activity/Vol] 216 U/L High 30-170 [facility] Comment on above: Performed By: #### H EMDF, CMP3, ETOH4, CK3 #### [address] [id number] Total CK 216 U/L High 30 - 170 U/L [place] COVID-19on 04-13-2020 SARS-CoV-2 Not Detected Expected Result: Not Detected _ Real-time, RT-PCR performed on the [employer] System by the [facility]. Negative results do not preclude SARS-CoV-2 infection and should not be used as the sole basis for treatment or other patient management decisions. This assay was developed by [employer] and distributed under an Emergency Use Authorization (EUA) granted by the FDA for the qualitative detection of SARS-CoV-2 nucleic acid. [place], [place] Test Performed by [facility], [address] [place] [address] Specimen Source Comment:Nasopharyngeal Swab [place], [place] Comp Metabolic Panelon 04-13 ALP [Catalytic activity/Vol] 72 U/L Normal 38-126 [facility] Comment on above: Performed By: #### H EMDF, CMP3, ETOH4, CK3 #### [address] [id number] ALT [Catalytic activity/Vol] 17 U/L Normal 0-34 [facility] Comment on above: Result Comment: The ALT test is performed by an updated assay method. Please note that the reference intervals have been changed and are now sex specific. Performed By: #### H EMDF, CMP3, ETOH4, CK3 #### [address] [address] [place] [address] AST [Catalytic activity/Vol] 32 U/L Normal 15-46 [facility] Comment on above: Performed By: #### H EMDF, CMP3, ETOH4, CK3 #### [address] [id number] Calcium [Mass/Vol] 9.6 mg/dL Normal 8.4-10.4 [facility] [place] Comment on above: Performed By: #### H EMDF, CMP3, ETOH4, CK3 #### [facility] [address], [place] Glucose [Mass/Vol] 107 mg/dL High 70-100 [facility] Comment on above: Performed By: #### H EMDF, CMP3, ETOH4, CK3 #### [facility] [address], [place] Protein [Mass/Vol] 7.3 g/dL Normal 6.3-8.2 [facility] Comment on above: Performed By: #### H EMDF, CMP3, ETOH4, CK3 #### [place] [address], [place] Urea nitrogen [Mass/Vol] 17 mg/dL Normal 7-20 [facility] Comment on above: Performed By: #### H EMDF, CMP3, ETOH4, CK3 #### [place] [address] [place], [place] Anion gap [Moles/Vol] 7 Normal [facility] Comment on above: Performed By: #### H EMDF, CMP3, ETOH4, CK3 #### [place] [address], [place] Bilirubin [Mass/Vol] 0.5 mg/dL Normal 0.2-1.[address] [facility] Comment on above: Performed By: #### H EMDF, CMP3, ETOH4, CK3 #### [place] [address] [place], [place] CO2 [Moles/Vol] 25 mmol/L Normal 22-30 [facility] Comment on above: Performed By: #### H EMDF, CMP3, ETOH4, CK3 #### [facility] [address], [place] Creatinine [Mass/Vol] 0.98 mg/dL Normal 0.52-1.25 [facility] Comment on above: Performed By: #### H EMDF, CMP3, ETOH4, CK3 #### [facility] [address], [place] GFR/1.73 sq M predicted among blacks MDRD (S/P/Bld) [Vol rate/Area] 70.5 mL/min/{1.73_m2} Normal >60 [facility] Comment on above: Performed By: #### H EMDF, CMP3, ETOH4, CK3 #### [address] GFR/1.73 sq M predicted among non-blacks MDRD (S/P/Bld) [Vol rate/Area] 60.9 mL/min/{1.73_m2} Normal >60 [facility] Comment on above: Result Comment: KDIG O guidelines provide the following GFR categories: Stage GFR(ml/min/1.73 m2) Terms G1 >=90 Normal or high G2 60-89 Mildly decreased* G3a 45-59 Mildly to moderately decreased G3b 30-44 Moderately to severely decreased G4 15-29 Severely decreased G5 <15 Kidney failure *Relative to young adult level. In the absence of evidence of kidney damage, neither GFR category G1 nor G2 fulfill the criteria for CKD. The CKD-EPI equation is validated in individuals 18 years of age and older. Currently the best equation for estimating glomerular filtration rate (GFR) from serum creatinine in children is the Bedside Kidd equation. It is less accurate in patients with extremes of muscle mass, restriction of dietary protein, ingestion of creatine, extra-renal metabolism of creatinine, or treatment with medications that affect renal tubular creatinine secretion. Performed By: #### H EMDF, CMP3, ETOH4, CK3 #### [address] Albumin [Mass/Vol] 4.2 g/dL Normal 3.5-5.0 [facility] Comment on above: Performed By: #### H EMDF, CMP3, ETOH4, CK3 #### [address] Chloride [Moles/Vol] 105 mmol/L Normal 98-[address] [facility] Comment on above: Performed By: #### H EMDF, CMP3, ETOH4, CK3 #### [address] Potassium [Moles/Vol] 3.9 mmol/L Normal 3.5-5.1 [facility] Comment on above: Performed By: #### H EMDF, CMP3, ETOH4, CK3 #### [place] [address] [place], [place] Sodium [Moles/Vol] 137 mmol/L Normal 135-145 [facility] Comment on above: Performed By: #### H EMDF, CMP3, ETOH4, CK3 #### [place] [address] [place], [place] Complete Urinalysison 2019 Appearance (U) Clear Normal Clear [facility] Comment on above: Result Comment: . Performed By: #### C UA2, DRGA4 #### [place] [address] [place], [place] Bacteria LM.HPF (Urine sed) [#/Area] Negative Normal Negative [facility] Comment on above: Result Comment: . Performed By: #### C UA2, DRGA4 #### [place] [address] [place], [place] Bilirubin,Urine Negative Normal Negative [facility] Comment on above: Result Comment: . Performed By: #### C UA2, DRGA4 #### [place] [address] [place], [place] Cast, Hyaline Negative Normal Negative [facility] Comment on above: Result Comment: . Performed By: #### C UA2, DRGA4 #### [place] [address] [place], [place] Color (U) Yellow Normal Lt. Yellow [facility] Comment on above: Result Comment: . Performed By: #### C UA2, DRGA4 #### [place] [address] [place], [place] Glucose Ql (U) Normal Normal Normal (<70) [facility] Comment on above: Result Comment: . Performed By: #### C UA2, DRGA4 #### [place] [address] [place], [place] Ketone,Urine Trace Abnormal Negative [facility] Comment on above: Result Comment: . Performed By: #### C UA2, DRGA4 #### [place] [address] [place], [place] Leukocytes,Urine 25 Charles/uL Abnormal Negative [facility] Comment on above: Result Comment: . Performed By: #### C UA2, DRGA4 #### [facility] [address], [place] Mucous Threads Few Normal Negative [facility] Comment on above: Result Comment: . Performed By: #### C UA2, DRGA4 #### [facility] [address], [place] Nitrites,Urine Negative Normal Negative [facility] Comment on above: Result Comment: . Performed By: #### C UA2, DRGA4 #### [place] [address] [place], [place] Occult Blood,Urine Negative Normal Negative [facility] Comment on above: Result Comment: . Performed By: #### C UA2, DRGA4 #### [place] [address] [place], [place] pH (U) 5.5 Normal 5.0-8.0 [facility] Comment on above: Result Comment: . Performed By: #### C UA2, DRGA4 #### [place] [address] [place], [place] Protein (U) [Mass/Vol] 20 mg/dL Abnormal Negative [facility] Comment on above: Result Comment: . Performed By: #### C UA2, DRGA4 #### [place] [address] [place], [place] RBC LM.HPF (Urine sed) [#/Area] 0 - 2 Normal 0-2 [facility] Comment on above: Result Comment: . Performed By: #### C UA2, DRGA4 #### [place] [address] [place], [place] Specific [place],Urine > 1.030 Abnormal 1.005 - 1.030 [facility] Comment on above: Result Comment: . Performed By: #### C UA2, DRGA4 #### [place] [address] [place], [place] Squamous Epithelial 3 - 5 Normal 3-5 [facility] Comment on above: Result Comment: . Performed By: #### C UA2, DRGA4 #### [facility] [address], [place] Urobilinogen,Urine 3 mg/dL Abnormal Normal (0-1) [facility] Comment on above: Result Comment: . Performed By: #### C UA2, DRGA4 #### [facility] [address], [place] WBC LM.HPF (Urine sed) [#/Area] 6 - 10 Abnormal 0-5 [facility] Comment on above: Result Comment: . Performed By: #### C UA2, DRGA4 #### [facility] [address] [place] [address] Comprehensive Metabolic Pane cassia 04-13-2020 Albumin [Mass/Vol] 4.2 g/dL 3.5 - 5 g/dL [place], [place] ALP [Catalytic activity/Vol] 72 U/L 38 - 126 U/L [place] ALT [Catalytic activity/Vol] 17 U/L 0 - 34 U/L [place] Comment on above: The ALT test is perf ormed by an updated assay method. Please note that the reference intervals have been changed and are now sex specific. Anion gap [Moles/Vol] 7 mmol/L [place], [place] AST [Catalytic activity/Vol] 32 U/L 15 - 46 U/L [place] Bilirubin Ql (U) 0.5 mg/dL 0.2 - 1.3 mg/dL [place] Calcium [Mass/Vol] 9.6 mg/dL 8.4 - 10. 4 mg/dL [place] Chloride [Moles/Vol] 105 mmol/L 98 - 10 7 mmol/L [place] CO2 [Moles/Vol] 25 mmol/L 22 - 30 mmol/L [place] Creatinine [Mass/Vol] 0.98 mg/dL 0.52 - 1.25 mg/dL [place] EGFR IF NonAfrican Barbadian 60.9 mL/min >60 [place] Comment on above: KDIGO guidelines pro vide the following GFR categories: Stage GFR(ml/min/1.73 m2) Terms G1 >=90 Normal or high G2 60-89 Mildly decreased* G3a 45-59 Mildly to moderately decreased G3b 30-44 Moderately to severely decreased G4 15-29 Severely decreased G5 <15 Kidney failure *Relative to young adult level. In the absence of evidence of kidney damage, neither GFR category G1 nor G2 fulfill the criteria for CKD. The CKD-EPI equation is validated in individuals 18 years of age and older. Currently the best equation for estimating glomerular filtration rate (GFR) from serum creatinine in children is the Bedside Kidd equation. It is less accurate in patients with extremes of muscle mass, restriction of dietary protein, ingestion of creatine, extra-renal metabolism of creatinine, or treatment with medications that affect renal tubular creatinine secretion. GFR/1.73 sq M predicted among blacks MDRD (S/P/Bld) [Vol rate/Area] 70.5 mL/min/{1.73_m2} >60 [facility], [place] Glucose [Mass/Vol] 107 mg/dL High 70 - 100 mg/dL [facility], [place] Potassium [Moles/Vol] 3.9 mmol/L 3.5 - 5.1 mmol/L [facility], [place] Protein [Mass/Vol] 7.3 g/dL 6.3 - 8.2 g/dL [place] Sodium [Moles/Vol] 137 mmol/L 135 - 145 mmol/L [facility], [place] Urea nitrogen [Mass/Vol] 17 mg/dL 7 - 20 mg/dL [place] Drugs of Abuseon 04-13-2020 Phencyclidine (PCP), Ur Negative Normal [facility] Comment on above: Result Comment: The expected value for all of the drugs listed above is Negative. The following drugs or drug groups have been screened for by Immunoassay at the following thresholds: Amphetamine class (1000 ng/mL), Barbiturates (200 ng/mL), Benzodiazepines (200 ng/mL), Cocaine (300 ng/mL), Methadone (300 ng/mL), Opiates (300 ng/mL), Oxycodone (100 ng/mL), and PCP (25 ng/mL). NOTE: These results are for medical treatment only. Analysis performed using non-forensic procedures. POSITIVE results are NOT confirmed by a more specific alternative method unless requested. If confirmation is needed, request confirmation under separate order. Performed By: #### C UA2, DRGA4 #### [facility] [address] [facility], [place] Methadone, Ur Negative Normal [facility] Comment on above: Performed By: #### C UA2, DRGA4 #### [facility] [address], [place] Opiates, Ur Negative Normal [facility] Comment on above: Performed By: #### C UA2, DRGA4 #### [facility] [address] [facility], [place] Cocaine, Ur Positive Normal [facility] Comment on above: Performed By: #### C UA2, DRGA4 #### [facility] [address], [place] Amphetamines, Ur Negative Normal [facility] Comment on above: Performed By: #### C UA2, DRGA4 #### [facility] [address] [facility], [place] Barbiturates, Ur Negative Normal [facility] Comment on above: Performed By: #### C UA2, DRGA4 #### [facility] [address], [place] Benzodiazepines, Ur Negative Normal [facility] Comment on above: Performed By: #### C UA2, DRGA4 #### [facility] [address], [place] Oxycodone/Oxymorphine, Ur Negative Normal [facility] Comment on above: Performed By: #### C UA2, DRGA4 #### [facility] [address] [facility], [place] Ethanolon 04-13-2020 Ethanol Lvl <0.010 0 - 0.01 g/dL [facility], [place] Comment on above: NOTE: This result is for medical treatment only. Analysis performed using non-forensic procedures. Ethanol Serum/Plasmaon 04-13 Ethanol-Serum/Plasma < 0.010 Normal 0.000-0.010 [facility] Comment on above: Result Comment: NOTE : This result is for medical treatment only. Analysis performed using non-forensic procedures. Performed By: #### H EMDF, CMP3, ETOH4, CK3 #### [facility] [address] [place] [address] Hemogram (CBC) w/Auto Diffon 04-13-2020 Absolute Baso # 0.0 10*3/uL 0 - 0.2 10*3/uL [place] Absolute Neut # 3.8 10*3/uL 1.8 - 7 10*3/uL [place] Basophils/100 WBC (Bld) 0.5 % 0 - 2 % [place] Eosinophils (Bld) [#/Vol] 0.2 10*3/uL 0 - 0.5 10*3/uL [place] Eosinophils/100 WBC (Bld) 2.4 % 1 - 6 % [place] Erythrocyte distribution width (RBC) [Ratio] 15.3 % High 11.5 - 14.5 % [place] Granulocytes/100 WBC (Bld) 58.0 % 40 - 80 % [place] Hematocrit (Bld) [Volume fraction] 46.0 % 35 - 47 % [place] Hemoglobin (Bld) [Mass/Vol] 15.5 g/dL 11.7 - 16 g/dL [place] Interpretation and review of laboratory results Abnormal [place] Lymphocytes (Bld) [#/Vol] 2.2 10*3/uL 1 - 4.3 10*3/uL [place] Lymphocytes/100 WBC (Bld) 34.0 % 20 - 40 % [place] MCH (RBC) [Entitic mass] 31.3 pg 26 - 34 pg [place] MCHC (RBC) [Mass/Vol] 33.7 % 32 - 36 % [place] MCV (RBC) [Entitic vol] 93.1 fL 79 - 98 fL [place] Monocytes (Bld) [#/Vol] 0.3 10*3/uL 0 - 0.8 10*3/uL [place] Monocytes/100 WBC (Bld) 5.1 % 2 - 10 % [place] Platelet mean volume (Bld) [Entitic vol] 9.3 fL 7.4 - 10.4 fL [place] Platelets (Bld) [#/Vol] 211 10*3/uL 140 - 440 10*3/uL [place] RBC (Bld) [#/Vol] 4.94 10*6/uL 3.8 - 5.2 10*6/uL [place] WBC (Bld) [#/Vol] 6.6 10*3/uL 3.6 - 10.7 10*3/uL [place] Test Performed by [facility], [address] [place] [id number] [place] [address] Hemogram w/ Autodiffon 04-13 Abs Baso Cnt 0.0 10*3/uL Normal 0.0-0.2 [facility] Comment on above: Performed By: #### H EMDF, CMP3, ETOH4, CK3 #### [address] [address] Abs Neutrophile Cnt 3.8 10*3/uL Normal 1.8-7.[address] [facility] Comment on above: Performed By: #### H EMDF, CMP3, ETOH4, CK3 #### [address] [address] Basophils/100 WBC (Bld) 0.5 % Normal 0.0-2.0 [facility] Comment on above: Performed By: #### H EMDF, CMP3, ETOH4, CK3 #### [address] [address] Eosinophils (Bld) [#/Vol] 0.2 10*3/uL Normal 0.0-0.5 [facility] Comment on above: Performed By: #### H EMDF, CMP3, ETOH4, CK3 #### [address] [address] Eosinophils/100 WBC (Bld) 2.4 % Normal 1.0-6.0 [facility] Comment on above: Performed By: #### H EMDF, CMP3, ETOH4, CK3 #### [place] [address] [place], [place] Erythrocyte distribution width (RBC) [Ratio] 15.3 % High 11.5-14.5 [facility] Comment on above: Performed By: #### H EMDF, CMP3, ETOH4, CK3 #### [place] [address] [place], [place] Granulocytes/100 WBC (Bld) 58.0 % Normal 40.0-80.0 [facility] Comment on above: Performed By: #### H EMDF, CMP3, ETOH4, CK3 #### [address] Hematocrit (Bld) [Volume fraction] 46.0 % Normal 35.0-47.0 [facility] Comment on above: Performed By: #### H EMDF, CMP3, ETOH4, CK3 #### [place] [address] [place], [place] Hemoglobin (Bld) [Mass/Vol] 15.5 g/dL Normal 11.7-16.0 [facility] Comment on above: Performed By: #### H EMDF, CMP3, ETOH4, CK3 #### [address] Lymphocytes (Bld) [#/Vol] 2.2 10*3/uL Normal 1.0-4.3 [facility] Comment on above: Performed By: #### H EMDF, CMP3, ETOH4, CK3 #### [place] [address] [place], [place] Lymphocytes/100 WBC (Bld) 34.0 % Normal 20.0-40.0 [facility] Comment on above: Performed By: #### H EMDF, CMP3, ETOH4, CK3 #### [address] MCH (RBC) [Entitic mass] 31.3 pg Normal 26.0-34.0 [facility] Comment on above: Performed By: #### H EMDF, CMP3, ETOH4, CK3 #### [place] [address] [place], [place] MCHC (RBC) [Mass/Vol] 33.7 % Normal 32.0-36.0 [facility] Comment on above: Performed By: #### H EMDF, CMP3, ETOH4,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 mg/dL Normal <200 [facility] Comment on above: Order Comment: TEST: LIPID Added [place] SPECIMEN at 215211/25/19 by [facility] CONSERVATION Is patient fasting? UNKNOWN Result Comment: <200 mg/dL (Desirable) 200-240 mg/dL (Borderline) >240 mg/dL (High Risk) Performed By: #### L 500.66677, L500.05750, L500.24918, L500.25161 #### Test performed at: [address] [address] Cholesterol in HDL [Mass/Vol] 71 mg/dL High 40-60 [facility] Comment on above: Order Comment: TEST: LIPID Added TO SPECIMEN at 215211/25/19 by [employer] [employer] Is patient fasting? UNKNOWN Performed By: #### L 500.52406, L500.95165, L500.84378, L500.66594 #### Test performed at: [address] [address] Cholesterol in LDL [Mass/Vol] 87 mg/dL Normal 60-130 [facility] Comment on above: Order Comment: TEST: LIPID Added TO SPECIMEN at 215211/25/19 by [facility]ATION Is patient fasting? UNKNOWN Performed By: #### L 500.13597, L500.31217, L500.51985, L500.13867 #### Test performed at: [place] [address] Triglyceride [Mass/Vol] 103 mg/dL Normal <150 [facility] Comment on above: Order Comment: TEST: LIPID Added TO SPECIMEN at 215211/25/19 by [facility] CONSERVATION Is patient fasting? UNKNOWN Result Comment: <150 mg/dL (Normal) 150-199 mg/dL (Borderline) 200-499 mg/dL (High) >500 mg/dL (Very High) Performed By: #### L 500.20674, L500.05192, L500.69501, L500.82596 #### Test performed at: [place] [address] Psychiatric Progress Noteon 11-26-2019 Psychiatric Progress Note [facility] Pt Name: DIANNE ALVES [address] [place] [address] MR#: [id number] [place] [address] ACCT: [id number] PROGRESS NOTE - Psychiatric : 57 Service Date: 12/02/19 1510 NAME: DIANNE ALVES MR#: [id number] DATE OF SERVICE: 12/02/2019 PSYCHIATRIC PROGRESS NOTE Dianne Alves is a 64-year-old woman with prior history of psychiatric illness, was admitted in an extremely depressed state. The patient addition has not been taking care of herself and essentially been evicted from her place. She in addition has multitude of physical problems and was not taking care of herself adequately. Dianne Alves is doing much better. Speech thought processes are better focused. She is expressing better insight. She, however, has not been cooperating fully in terms of her placement. The patient has finally agreed to going to a homeless senior care from where she could be transferred to transitional housing if she cooperates with her casework manager. So far she is tolerating her medications well. Her pain depression and her thought processes all appear to show improvement. Dianne Alves progress discharge planning followup care was reviewed with the members of nursing team. The patient's chart was reviewed as well. I would maintain her current combination medication, Cymbalta as well as Seroquel. Plan on discharging her to a homeless senior care in the next few days' time. MD RICKY GAGNON/MODL/[id number] Electronically Signed eSign Date and Time Olivia Joe MD 12/04/19 1601 Normal [facility] Psychiatric Progress Note [facility] Pt Name: DIANNE ALVES [address] [place] [address] MR#: [id number] [place] [address] ACCT: [id number] PROGRESS NOTE - Psychiatric : 57 Service Date: 12/07/19 1521 NAME: DIANNE ALVES MR#: [id number] DATE OF SERVICE: 12/07/2019 PSYCHIATRIC PROGRESS NOTE The patient Dianne Alves is a 64-year-old woman with prior history of major depressive disorder. In addition, she has prior history of substance abuse, was admitted in a highly disorganized state. The patient was entertaining suicidal ideations and was not able to take care of herself, was noncompliant with her medications. Dianne Alves is doing significantly better. Affect, thought processes show improvement. She is calm, redirectable, appears to have gained maximum benefit from hospitalization. She is being discharged today and will be followed up on an outpatient basis. MD RICKY GAGNON/MODL/[id number] Electronically Signed eSign Date and Time Olivia Joe MD 12/08/19 1330 Normal [facility] Psychiatric Progress Note [facility] Pt Name: DIANNE ALVES [address] MR#: [id number] [place] [address] ACCT: [id number] PROGRESS NOTE - Psychiatric : 57 Service Date: 12/03/19 1320 NAME: DIANNE ALVES MR#: [id number] DATE OF SERVICE: 12/03/2019 PSYCHIATRIC PROGRESS NOTE HISTORY OF PRESENT ILLNESS: Dianne Alves is a 64-year-old female with a history of extreme depressed state. She had been evicted from her apartment. In addition, she has multiple medical issues and had not been performing self-care. Dianne Alves was seen today in her room. She continues to be very somatically focused. She denied any auditory or visual hallucinations. She denies any suicidal or homicidal ideation. Seems she is comprehending that and cooperating with obtaining housing for her Social Work has contacted a halfway and is going to interview her. She is also going to be community treatment through the [facility]. Nursing reports she has been medication compliant. She continues to have depressed mood, but states that she has had some improvement. PLAN: Dianne Alves's progress and discharge planning reviewed with the nursing team. Her chart was reviewed. Plan is to continue her on her current combination of medications which include Cymbalta and Seroquel. Chest x-ray was done, so that she could be admitted to a halfway for housing. If those arrangements work out, plan will be to discharge her in the next few days. LANDRY JOE MD Dictated by: GENA LEAHY NP /ROSANA/[id number] Electronically Signed eSign Date and Time Olivia Joe MD 12/04/19 1601 Normal [facility] Psychiatric Progress Note [facility] Pt Name: DIANNE ALVES [address] MR#: [id number] [place] [id number] ACCT: [id number] PROGRESS NOTE - Psychiatric : 57 Service Date: 11/30/19 1238 NAME: DIANNE ALVES MR#: [id number] DATE OF SERVICE: 11/30/2019 PSYCHIATRIC PROGRESS NOTE SUBJECTIVE: Dianne Alves is a 64-year-old female with a history of depression and polysubstance abuse that was admitted after she was evicted from her apartment and she was entertaining suicidal thoughts. Dianne Alves was seen today in her room. Her main complaint is related to her peripheral vascular disease. She is complaining that her feet are on fire. She is having difficulty with sleep related to the pain in her lower extremities. Over the weekend apparently, she had a cardiac workup for chest pain which resulted results of the test being negative. She is medication compliant. She currently denies auditory or visual hallucinations, but does state that she feels helpless and hopeless and stated that I am so depressed, I want to go to sleep and never wake up again, although when asked if she has a plan, she once again stated that she is coward. She also is very concerned about her 2 dogs that she had to leave behind when admitted to the hospital. The patient's progress, discharge planning, followup reviewed with the nursing team. Her chart was reviewed. PLAN: To continue her current combination of medications, which include Cymbalta as well as Seroquel. Social work has been in contact with her apartment to let her know that her dogs are alright. Also Medicine was contacted to discuss with her that her peripheral vascular disease and concomitant pain. Meanwhile, we will encourage participation in milieu and therapy activities and wait for further improvement for discharge to be finalized. LANDRY JOE MD Dictated by: GENA LEAHY NP /[id number] Electronically Signed eSign Date and Time Olivia Joe MD 12/04/19 1601 Normal [facility] Psychiatric Progress Note [facility] Pt Name: DIANNE ALVES [address] MR#: [id number] [place] [address] ACCT: [id number] PROGRESS NOTE - Psychiatric : 57 Service Date: 12/05/19 1434 NAME: DIANNE ALVES MR#: [id number] DATE OF SERVICE: 12/05/2019 PSYCHIATRIC PROGRESS NOTE The patient, Dianne Alves is a 64-year-old woman with prior history of depressive disorder. Patient in addition has history of substance abuse as well as peripheral vascular disease, was admitted with chief complaints of worsening of mental status and feeling very depressed. The patient was not able to take care of herself and essentially she has lost her home. Dianne Alves is doing better. Affect is improving. She is a lot more alert, spontaneous. Thought processes are appropriate. She is expressing better insight into her condition. Initially, she was resistive towards placement, but now is agreeable to going to a halfway. Dianne Alves's progress, discharge planning, followup care was reviewed with the nursing team. The patient's chart was reviewed as well. I would discontinue her morning time Seroquel, would continue just now nighttime Seroquel, would continue with her Neurontin as well as Cymbalta. The patient is noted to be sedated in the morning. She meanwhile is being encouraged to participate in all other treatment activities, once the condition improves further, discharge will be considered. LANDRY JOE MD ANS/MODL/[id number] Electronically Signed eSign Date and Time Olivia Joe MD 12/08/19 1330 Normal [facility] ALC ETHANOLon 11-25-2019 ALC ETHANOL < 3.0 Normal <10.0 [facility] Comment on above: Order Comment: TEST: LIPID Added TO SPECIMEN at 2153 11/25/19 by GLBNOE CONSERVATION Is patient fasting? UNKNOWN Result Comment: UNCO NFIRMED Toxicology results. For MEDICAL purposes only. Performed By: #### L 500.01463, L500.25972, L500.00724, L500.49249 #### Test performed at: [address] [address] CBC W/DIFFon 11-25-2019 BASO ABS 0.0 K/uL Normal 0.0-0.2 [facility] Comment on above: Order Comment: CONSE RVATION Performed By: #### L 200.73363 #### Test performed at: [address] [address] Basophils/100 WBC (Bld) 0.5 % Normal [facility] Comment on above: Order Comment: CONSE RVATION Performed By: #### L 200.70360 #### Test performed at: [place] [id number] EOS ABS 0.4 K/uL Normal 0.0-0.5 [facility] Comment on above: Order Comment: CONSE RVATION Performed By: #### L 200.49668 #### Test performed at: [address] [address] Eosinophils/100 WBC (Bld) 6.2 % Normal [facility] Comment on above: Order Comment: CONSE RVATION Performed By: #### L 200.22217 #### Test performed at: [address] [address] Erythrocyte distribution width (RBC) [Ratio] 15.3 % High 11.5-14.5 [facility] Comment on above: Order Comment: CONSE RVATION Performed By: #### L 200.20258 #### Test performed at: [address] [address] Hematocrit (Bld) [Volume fraction] 44.8 % Normal 36.0-48.0 [facility] Comment on above: Order Comment: CONSE RVATION Performed By: #### L 200.38066 #### Test performed at: [address] [address] Hemoglobin (Bld) [Mass/Vol] 14.8 g/dL Normal 12.0-15.0 [facility] Comment on above: Order Comment: CONSE RVATION Performed By: #### L 200.04437 #### Test performed at: [place] [address] IG % 0.2 % Normal [facility] Comment on above: Order Comment: CONSE RVATION Performed By: #### L 200.14463 #### Test performed at: [place] [address] IG ABS 0.01 K/uL Normal 0-0.05 [facility] Comment on above: Order Comment: CONSE RVATION Performed By: #### L 200.92919 #### Test performed at: [address] [address] Lymphocytes (Bld) [#/Vol] 2.7 10*3/uL Normal 1.2-3.5 [facility] Comment on above: Order Comment: CONSE RVATION Performed By: #### L 200.69423 #### Test performed at: [address] [address] Lymphocytes/100 WBC (Bld) 44.2 % Normal [facility] Comment on above: Order Comment: CONSE RVATION Performed By: #### L 200.40976 #### Test performed at: [address] [address] MCH (RBC) [Entitic mass] 31.0 pg Normal 25.4-34.6 [facility] Comment on above: Order Comment: CONSE RVATION Performed By: #### L 200.16260 #### Test performed at: [address] [address] MCHC (RBC) [Mass/Vol] 33.0 g/dL Normal 31.5-36.5 [facility] Comment on above: Order Comment: CONSE RVATION Performed By: #### L 200.86006 #### Test performed at: [address] [address] MCV (RBC) [Entitic vol] 93.7 fL Normal 79.0-98.0 [facility] Comment on above: Order Comment: CONSE RVATION Performed By: #### L 200.93447 #### Test performed at: [address] [address] MONO ABS 0.5 K/uL Normal 0.0-1.0 [facility] Comment on above: Order Comment: CONSE RVATION Performed By: #### L 200.38600 #### Test performed at: [address] [address] Monocytes/100 WBC (Bld) 7.6 % Normal [facility] Comment on above: Order Comment: CONSE RVATION Performed By: #### L 200.46072 #### Test performed at: [address] [address] NEUTROPHIL ABS 2.6 K/uL Normal 1.4-6.6 [facility] Comment on above: Order Comment: CONSE RVATION Performed By: #### L 200.45253 #### Test performed at: [address] [address] Neutrophils/100 WBC (Bld) 41.3 % Normal [facility] Comment on above: Order Comment: CONSE RVATION Performed By: #### L 200.65850 #### Test performed at: [address] [address] NRBC # 0.000 K/uL Normal 0-0.012 [facility] Comment on above: Order Comment: CONSE RVATION Performed By: #### L 200.44920 #### Test performed at: [address] [address] NRBC % 0.0 /100 WBC Normal 0-0.2 [facility] Comment on above: Order Comment: CONSE RVATION Performed By: #### L 200.86328 #### Test performed at: [address] [address] Platelet mean volume (Bld) [Entitic vol] 10.3 fL Normal 8.7-12.4 [facility] Comment on above: Order Comment: CONSE RVATION Performed By: #### L 200.37282 #### Test performed at: [address] [address] Platelets (Bld) [#/Vol] 233 10*3/uL Normal 140-440 [facility] Comment on above: Order Comment: CONSE RVATION Performed By: #### L 200.46167 #### Test performed at: [address] [address] RBC (Bld) [#/Vol] 4.78 10*6/uL Normal 3.5-5.5 [facility] Comment on above: Order Comment: CONSE RVATION Performed By: #### L 200.03072 #### Test performed at: [address] [address] WBC (Bld) [#/Vol] 6.2 10*3/uL Normal 3.9-11.0 [facility] Comment on above: Order Comment: CONSE RVATION Performed By: #### L 200.27318 #### Test performed at: [address] [address] COMP META PANELon 11-25-2019 Albumin [Mass/Vol] 3.7 g/dL Normal 3.4-5.0 [facility] Comment on above: Order Comment: TEST: LIPID Added [place] SPECIMEN at 215211/25/19 by GLBNOE CONSERVATION Is patient fasting? UNKNOWN Performed By: #### L 500.71745, L500.16723, L500.58261, L500.76171 #### Test performed at: [address] [address] ALK PHOS TOTAL 87 U/L Normal 45-117 [facility] Comment on above: Order Comment: TEST: LIPID Added TO SPECIMEN at 215211/25/19 by GLBNOE CONSERVATION Is patient fasting? UNKNOWN Performed By: #### L 500.75736, L500.42624, L500.70691, L500.05262 #### Test performed at: [address] [address] ALT [Catalytic activity/Vol] 21 U/L Normal 13-61 [facility] Comment on above: Order Comment: TEST: LIPID Added TO SPECIMEN at 215211/25/19 by GLBNOE CONSERVATION Is patient fasting? UNKNOWN Performed By: #### L 500.63431, L500.96094, L500.08395, L500.32998 #### Test performed at: [address] [address] AST [Catalytic activity/Vol] 26 U/L Normal 15-37 [facility] Comment on above: Order Comment: TEST: LIPID Added TO SPECIMEN at 215211/25/19 by GLBNOE CONSERVATION Is patient fasting? UNKNOWN Performed By: #### L 500.96829, L500.35185, L500.34936, L500.58402 #### Test performed at: [address] [address] BILI TOTAL 0.2 mg/dL Normal 0.2-1.0 [facility] Comment on above: Order Comment: TEST: LIPID Added TO SPECIMEN at 215211/25/19 by GLBNOE CONSERVATION Is patient fasting? UNKNOWN Performed By: #### L 500.11952, L500.54226, L500.06123, L500.36267 #### Test performed at: [address] [address] Calcium [Mass/Vol] 9.4 mg/dL Normal 8.5-10.1 [facility] Comment on above: Order Comment: TEST: LIPID Added TO SPECIMEN at 215211/25/19 by GLBNOE CONSERVATION Is patient fasting? UNKNOWN Performed By: #### L 500.05966, L500.54039, L500.25962, L500.22597 #### Test performed at: [address] [address] Chloride [Moles/Vol] 108 mmol/L High 98-107 [facility] Comment on above: Order Comment: TEST: LIPID Added TO SPECIMEN at 215211/25/19 by GLBNOE CONSERVATION Is patient fasting? UNKNOWN Performed By: #### L 500.37710, L500.18171, L500.12821, L500.29409 #### Test performed at: [address] [address] CO2 [Moles/Vol] 27 mmol/L Normal 21-32 [facility] Comment on above: Order Comment: TEST: LIPID Added TO SPECIMEN at 215211/25/19 by GLBNOE CONSERVATION Is patient fasting? UNKNOWN Performed By: #### L 500.57109, L500.03101, L500.69134, L500.91197 #### Test performed at: [address] [address] Creatinine [Mass/Vol] 1.120 mg/dL High 0.550-1.020 [facility] Comment on above: Order Comment: TEST: LIPID Added TO SPECIMEN at 215211/25/19 by GLBNOE CONSERVATION Is patient fasting? UNKNOWN Performed By: #### L 500.27139, L500.65444, L500.69180, L500.02132 #### Test performed at: [address], [place] [address] Glucose [Mass/Vol] 94 mg/dL Normal 70-99 [facility] Comment on above: Order Comment: TEST: LIPID Added TO SPECIMEN at 215211/25/19 by GLBNOE CONSERVATION Is patient fasting? UNKNOWN Result Comment: Fast ing GLUCOSE reference range has been updated per (ADA) [place] [employer]'s recommendation. 12/23/2018 Performed By: #### L 500.00052, L500.65405, L500.77944, L500.76660 #### Test performed at: [address] [address] Potassium [Moles/Vol] 5.1 mmol/L Normal 3.5-5.1 [facility] Comment on above: Order Comment: TEST: LIPID Added TO SPECIMEN at 215211/25/19 by GLBNOE CONSERVATION Is patient fasting? UNKNOWN Performed By: #### L 500.17175, L500.30703, L500.59477, L500.82539 #### Test performed at: [address] [address] Protein [Mass/Vol] 7.1 g/dL Normal 6.4-8.2 [facility] Comment on above: Order Comment: TEST: LIPID Added TO SPECIMEN at 215211/25/19 by GLBNOE CONSERVATION Is patient fasting? UNKNOWN Performed By: #### L 500.90775, L500.06600, L500.25109, L500.14178 #### Test performed at: [address] [address] Sodium [Moles/Vol] 138 mmol/L Normal 136-145 [facility] Comment on above: Order Comment: TEST: LIPID Added TO SPECIMEN at 215211/25/19 by GLBNOE CONSERVATION Is patient fasting? UNKNOWN Performed By: #### L 500.04955, L500.20713, L500.88839, L500.37156 #### Test performed at: [address] [address] Urea nitrogen [Mass/Vol] 23 mg/dL High 7-18 [facility] Comment on above: Order Comment: TEST: LIPID Added TO SPECIMEN at 215211/25/19 by GLBNOE CONSERVATION Is patient fasting? UNKNOWN Performed By: #### L 500.23514, L500.71155, L500.93626, L500.46045 #### Test performed at: [place] [address] GFR ESTIMATEon 11-25-2019 IF AMER 60 Normal > 60 [facility] Comment on above: Order Comment: TEST: LIPID Added TO SPECIMEN at 215211/25/19 by GLBNOE CONSERVATION Is patient fasting? UNKNOWN Result Comment: eGFR (Estimated GFR) Units of measure:mL/min/1.73 meters sq. *CALCULATION REVISED 07/19/2015;IDMS-traceable MDRD equation eGFR is derived from the reexpressed MDRD Study equation using the following parameters: serum creatinine, age, gender and race. An eGFR<60 mL/min/1.73m2 for >3 months is consistent with chronic kidney disease. Refer to KDOQI guidelines for clinical interpretation. Performed By: #### L 500.68727, L500.56366, L500.41784, L500.91182 #### Test performed at: [place] [address] IF non-AFR AMER 49 Low > 60 [facility] Comment on above: Order Comment: TEST: LIPID Added TO SPECIMEN at 215211/25/19 by GLBNOE CONSERVATION Is patient fasting? UNKNOWN Performed By: #### L 500.14000, L500.76780, L500.91248, L500.56092 #### Test performed at: [place] [address] LIMIT UR TOXon 11-25-2019 UR AMPH Negative Normal Negative [facility] Comment on above: Order Comment: CONSE RVATION Result Comment: CUTO SY=5160 Performed By: #### L 600.95526 #### Test performed at: [address] [address] UR PARMINDER Negative Normal Negative [facility] Comment on above: Order Comment: CONSE RVATION Result Comment: CUTO UY=981 Performed By: #### L 600.24808 #### Test performed at: [place] [id number] UR CITLALY Negative Normal Negative [facility] Comment on above: Order Comment: CONSE RVATION Result Comment: CUTO ZX=249 Performed By: #### L 600.82698 #### Test performed at: [place] [address] UR BUPREN/NORBU Negative Normal Negative [facility] Comment on above: Order Comment: CONSE RVATION Result Comment: CUTO FF=10 Performed By: #### L 600.65546 #### Test performed at: [place] [address] UR BERE/THC Negative Normal Negative [facility] Comment on above: Order Comment: CONSE RVATION Result Comment: CUTO FF=50 Performed By: #### L 600.83604 #### Test performed at: [place] [address] UR ARCHANA Positive Critically abnormal Negative [facility] Comment on above: Order Comment: CONSE RVATION Result Comment: CUTO LV=350 Performed By: #### L 600.43165 #### Test performed at: [address] [address] UR ECSTASY Negative Normal Negative [facility] Comment on above: Order Comment: CONSE RVATION Result Comment: CUTO VP=346 Performed By: #### L 600.74800 #### Test performed at: [place] [address] UR FENTANYL Negative Normal Negative [facility] Comment on above: Order Comment: CONSE RVATION Result Comment: CUTO XY=3872 Performed By: #### L 600.64997 #### Test performed at: [place] [address] UR METH Negative Normal Negative [facility] Comment on above: Order Comment: CONSE RVATION Result Comment: CUTO JZ=293 Performed By: #### L 600.37547 #### Test performed at: [place] [address] UR OPIAT Positive Critically abnormal Negative [facility] Comment on above: Order Comment: CONSE RVATION Result Comment: CUTO ZQ=631 Performed By: #### L 600.05928 #### Test performed at: [place] [address] UR OXYCOCONE Negative Normal Negative [facility] Comment on above: Order Comment: CONSE RVATION Result Comment: CUTO VB=286 Performed By: #### L 600.75678 #### Test performed at: [place] [address] UR PCP Negative Normal Negative [facility] Comment on above: Order Comment: CONSE RVATION Result Comment: CUTO FF=25 Performed By: #### L 600.89991 #### Test performed at: [place] [address] PH TOX 6.0 Normal 5.0-8.0 [facility] Comment on above: Order Comment: CONSE RVATION Performed By: #### L 600.66649 #### Test performed at: [place] [address] TOX COMMENT *PLEASE NOTE: Normal [facility] Comment on above: Order Comment: CONSE RVATION Result Comment: UNCO NFIRMED Toxicology results. For MEDICAL purposes only. Performed By: #### L 600.32704 #### Test performed at: [place] [address] ACUTE TOXICOLOGY PANEL, BLOO Don 06-12-2019 Acetaminophen [Mass/Vol] <10.0 Normal 10.0 - 30.0 [facility] Comment on above: Performed By: #### D RUBL #### [facility] [address] [place] [address] Ethanol [Mass/Vol] mg/dL Normal [facility] Comment on above: Result Comment: FOR MEDICAL USE ONLY. . REF VALUES <10 Performed By: #### D RUBL #### [facility] [address] [place] [address] SALICYLATE <3 Normal 4 - 20 [facility] Comment on above: Performed By: #### D RUBL #### [facility] [address] [place] [address] BASIC METABOLIC PANELon 05-31 Anion gap [Moles/Vol] 12 mmol/L Normal 10 - 20 [facility] Comment on above: Performed By: #### B MP #### [facility] [address] [place] [address] Calcium [Mass/Vol] 9.4 mg/dL Normal 8.6 - 10.6 [facility] Comment on above: Performed By: #### B MP #### [facility] [address] [place] [address] Chloride [Moles/Vol] 107 mmol/L Normal 98 - 107 [facility] Comment on above: Performed By: #### B MP #### [facility] [address] [place] [address] Creatinine [Mass/Vol] 1.10 mg/dL High 0.50 - 1.05 [facility] Comment on above: Performed By: #### B MP #### [facility] [address] [place] [address] GFR- AM. 61 mL/min/1.73m2 Normal >60 [facility] Comment on above: Result Comment: CALC ULATIONS OF ESTIMATED GFR ARE PERFORMED USING THE MDRD STUDY EQUATION FOR THE IDMS-TRACEABLE CREATININE METHODS. CLIN CHEM 2007;53:766-72 Performed By: #### B MP #### [facility] [address] [place] [address] GFR-NON AM. 50 mL/min/1.73m2 Abnormal >60 [facility] Comment on above: Performed By: #### B MP #### [facility] [address] [place] [address] Glucose [Mass/Vol] 128 mg/dL High 74 - 99 [facility] Comment on above: Performed By: #### B MP #### [facility] [address] [place] [address] HCO3 (Bld) [Moles/Vol] 25 mmol/L Normal 21 - 32 [facility] Comment on above: Performed By: #### B MP #### [facility] [address] [place] [address] Potassium [Moles/Vol] 4.1 mmol/L Normal 3.5 - 5.3 [facility] Comment on above: Performed By: #### B MP #### [facility] [address] [place] [address] Sodium [Moles/Vol] 140 mmol/L Normal 136 - 145 [facility] Comment on above: Performed By: #### B MP #### [facility] [address] [place] [address] Urea nitrogen [Mass/Vol] 19 mg/dL Normal 6 - 23 [facility] Comment on above: Performed By: #### B MP #### [facility] [address] [place] [address] CHEST ABDOMEN PELVIS W CONTRASTon 06-12-[address] CHEST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 to sit still and is writhing in pain. Patient is maintained on cyclobenzaprine 5mg TID, gabapentin 300mg, and naproxen 500mg BID. Patient states the only thing that helps is Percocet, which her PCP has stopped prescribing. Patient is asking for percocet. All Imaging has been unremarkable except for mild lumbar facet arthropathy, and narrowing of the C5-6 disc space. Patient is afraid of needles and does not want any injections. She previously saw my partner Dr. Lane with a very similar presentation in regards to her behavior, writhing around on the exam table. Review of Systems Respiratory: COPD. Genitourinary: FREQUENCY. Musculoskeletal: limb pain. Neurological: headache, numbness and tingling. 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 (Dr Yadira Yousif) History of Thrombolysis (Non-Coronary) 04/29/2015, Angiogram, Thrombolysis therapy, angioplasty of tibioperoneal trunk and posterior tibial artery. (Dr Gustavo Ayoub) Social History Alcohol use (V49.89) (Z78.9) Formerly daily, Quit 06/14/2015 Current every day smoker (305.1) (F17.200) Quit 06/14/2015 Allergies No Known Drug Allergies Recorded By: Bernadette Arenas; 05/26/2014 4:18:21 PM Current Meds Acidophilus Oral Capsule; TAKE DIRECTED; Therapy: (Recorded:[id number]) to Recorded Dispense: 0 Days ; #: Sufficient Capsule; Refill: 0;For: Health Maintenance; EARL = N; Record; Last Updated By: Bernadette Arenas; 09/01/2015 1:18:49 PM Docusate Sodium 100 MG Oral Capsule; TAKE 1 CAPSULE TWICE DAILY; Therapy: (Recorded:[id number]) to Recorded Dispense: 0 Days ; #: Sufficient Capsule; Refill: 0;For: Health Maintenance; EARL = N; Record; Last Updated By: Bernadette Arenas; 09/01/2015 1:18:50 PM GaviLAX Oral Powder; USE DIRECTED NEEDED FOR CONSTIPATION; Therapy: 03Aug2015 to Recorded Dispense: 0 Days ; #: Sufficient GM; Refill: 0;For: Health Maintenance; EARL = N; Record; Last Updated By: Bernadette Arenas; 09/06/2015 7:41:29 AM Polyethylene Glycol 3350 Oral Powder; USE DIRECTED NEEDED; Therapy: (Recorded:[id number]) to Recorded Dispense: 0 Days ; #: Sufficient GM; Refill: 0;For: Health Maintenance; EARL = N; Record; Last Updated By: Bernadette Arenas; 09/01/2015 1:18:50 PM Vitamin B1 100 MG TABS; TAKE 1 TABLET DAILY DIRECTED; Therapy: (Recorded:[id number]) to Recorded Dispense: 0 Days ; #: Sufficient Tablet; Refill: 0;For: Health Maintenance; EARL = N; Record; Last Updated By: Bernadette Arenas; 09/01/2015 1:18:50 PM Acetaminophen 325 MG Oral Tablet; USE DIRECTED NEEDED; Therapy: 03Aug2015 to Recorded Dispense: 0 Days ; #: Sufficient Tablet; Refill: 0; EARL = N; Record; Last Updated By: Bernadette Arenas; 08/03/2015 4:04:31 PM Aspirin 81 MG TABS; Take 1 tablet daily; Therapy: (Recorded:[id number]) to Recorded Dispense: 0 Days ; #: Sufficient Tablet; Refill: 0; EARL = N; Record; Last Updated By: Bernadette Arenas; 09/01/2015 1:18:50 PM Atorvastatin Calcium 20 MG Oral Tablet; Therapy: (Recorded:29Oct2018) to Recorded Dispense: 0 Days ; #: Sufficient; Refill: 0; EARL = N; Record; Last Updated By: Shirley Card; 10/29/2018 11:30:52 AM Clopidogrel Bisulfate 75 MG Oral Tablet; Take 1 tablet daily; Therapy: (Recorded:01Sep2015) to Recorded Dispense: 0 Days ; #: Sufficient Tablet; Refill: 0; EARL = N; Record; Last Updated By: Bernadette Arenas; 09/01/2015 1:18:50 PM Cyclobenzaprine HCl - 5 MG Oral Tablet; TAKE 1 TABLET 3 times daily as directed; Therapy: 03Aug2015 to Recorded Dispense: 0 Days ; #: Sufficient Tablet; Refill: 0; EARL = N; Record; Last Updated By: Bernadette Arenas; 08/03/2015 4:04:31 PM DuoNeb 0.5-2.5 (3) MG/3ML SOLN; USE DIRECTED NEEDED; Therapy: (Recorded:01Sep2015) to Recorded Dispense: 0 Days ; #: Sufficient; Refill: 0; EARL = N; Record; Last Updated By: Bernadette Arenas; 09/01/2015 1:18:50 PM Gabapentin 300 MG Oral Capsule; USE DIRECTED NEEDED; Therapy: 10Jun2014 to (Evaluate:[id number]) Recorded Dispense: 0 Days ; #: Sufficient Capsule; Refill: 0; EARL = N; Record; Last Updated By: Bernadette Arenas; 08/03/2015 4:04:31 PM GuaiFENesin 100 MG/5ML SYRP; USE DIRECTED NEEDED; Therapy: 03Aug2015 to Recorded Dispense: 0 Days ; #: Sufficient ML; Refill: 0; EARL = N; Record; Last Updated By: Bernadette Arenas; 08/03/2015 4:04:31 PM Lidocaine 5 % External Patch; APPLY DIRECTED; Therapy: (Recorded:[id number]) to Recorded Dispense: 0 Days ; #: Sufficient Patch; Refill: 0; EARL = N; Record; Last Updated By: Bernadette Arenas; 09/06/2015 11:22:11 AM Lovenox 40 MG/0.4ML Subcutaneous Solution; USE DIRECTED; Therapy: 03Aug2015 to Recorded Dispense: 0 Days ; #: Sufficient ML; Refill: 0; EARL = N; Record; Last Updated By: Bernadette Arenas; 09/01/2015 1:18:49 PM methylPREDNISolone 4 MG Oral Tablet Therapy Pack; Therapy: (Recorded:29Oct2018) to Recorded Dispense: 0 Days ; #: Sufficient; Refill: 0; EARL = N; Record; Last Updated By: Shirley Card; 10/29/2018 11:30:52 AM Mirtazapine 30 MG Oral Tablet; TAKE 1 TABLET DAILY AT BEDTIME; Therapy: 03Aug2015 to Recorded Dispense: 0 Days ; #: Sufficient Tablet; Refill: 0; EARL = N; Record; Last Updated By: Bernadette Arenas; 08/03/2015 4:04:31 PM Multivitamins Oral Capsule; TAKE 1 CAPSULE DAILY; Therapy: 03Aug2015 to (Evaluate:28Jul2016) Recorded Dispense: 30 Days ; #:30 Capsule; Refill: 11; EARL = N; Record; Last Updated By: Bernadette Arenas; 08/03/2015 4:04:31 PM Naproxen 500 MG Oral Tablet; Take 1 tablet twice daily; Therapy: 03Aug2015 to Recorded Dispense: 0 Days ; #: Sufficient Tablet; Refill: 0; EARL = N; Record; Last Updated By: Bernadette Arenas; 08/03/2015 4:04:31 PM oxyCODONE-Acetaminophen 5-325 MG Oral Tablet; USE DIRECTED NEEDED; Therapy: 10May2014 to (Evaluate:20Aug2015) Recorded Dispense: 0 Days ; #: Sufficient Tablet; Refill: 0; EARL = N; Record; Last Updated By: Bernadette Arenas; 08/03/2015 4:04:30 PM SEROquel XR 50 MG Oral Tablet Extended Release 24 Hour; TAKE 1 TABLET DAILY; Therapy: 03Aug2015 to Recorded Dispense: 0 Days ; #: Sufficient Tablet Extended Release 24 Hour; Refill: 0; EARL = N; Record; Last Updated By: Bernadette Arenas; 08/03/2015 4:04:31 PM Ventolin HFA 108 (90 Base) MCG/ACT Inhalation Aerosol Solution; INHALE 2 PUFFS 4 TIMES DAILY DIRECTED; Therapy: 03Aug2015 to Recorded Dispense: 0 Days ; #: Sufficient GM; Refill: 0; EARL = N; Record; Last Updated By: Bernadette Arenas; 08/03/2015 4:04:31 PM Vitals Vital Signs Recorded: [id number] 12:51PM Heart Rate98 Ukacbsvn626 Zierftjgd32 Physical Exam Constitutional: General appearance is abnormal. in significant distress, unable to sit still, writing in pain and clutching her left arm. Eyes: conjunctiva non-icteric and eye lids are without obvious rash or drooping. Pupils are symmetric. Ears, Nose, Mouth, and Throat: External ears and nose appear to be without deformity or rash. No lesions or masses noted. Hearing is grossly intact. Neck:. No JVD noted, tracheal position is midline. No goiter noted on assessment of thyroid. Head and Face: examination of the head and face revealed no abnormalities. Cardiovascular: Examination for edema is normal. Skin: No rashes or open lesions/ulcers identified on skin. No induration/tightening noted with palpation of skin. Musculoskeletal: Gait is grossly normal. Neurologic: dullness to sensation in ulnar and median nerve distribution. examination of sensation is abnormal. Examination of Cranial Nerves: II- XII were intact Examination of Motor Strength: Normal Psychiatric: Alert, orientation to person, place, and time. Recent/remote memory as evidenced through [id number]-up-[id number] interaction and discussion appear grossly intact. Mood and affect are normal. Results/Data Radiology were obtained and reviewed. Pertinent positive and negative findings were considered in medical decision making. Diagnoses/Problems Cervical radicular pain (723.4) (M54.12) Orders Start: Topiramate 25 MG Oral Tablet (Topamax); 25mg tabs titrate to 100mg bid per protocol faxed to pharm Rx By: Myke Burdick; Dispense: 0 Days ; #:196 Tablet; Refill: 0;For: Cervical radicular pain; EARL = N; Verified Transmission to [facility]; Last Updated By: Mahamed Mcnamara; 11/18/2018 1:22:42 PM Physical Therapy Referral Evaluation and Treatment Evaluate AND Treat 2-3 times per week for 8 weeks Status: Hold For - Scheduling,Retrospective Authorization Requested for: [id number] Ordered;For: Cervical radicular pain; Ordered By: Myke Burdick Performed: Due: [id number]; Last Updated By: Brittany Rogers; 11/18/2018 1:22:07 PM MRI Cervical without Contrast; Status:Active; Requested for:04Dec2018; Perform:[facility];Ordered; For:Cervical radicular pain; Ordered By:Myke Burdick; Reason: Unspecified for MRI Cervical without Contrast Radiologist to Determine Optimal Study : Y What are the patient's signs and symptoms? : neck pain Provider Impressions 63 year old female with neck and arm pain. Intractable in nature. PLAN: - We will order an MRI of C-spine. - We will start patient on topiramate titration. Side effect profile discussed. - Refer to physical therapy for neck. - Patient repeatedly asking for opioid medication. I discussed with her that I would not repeat providing this. The patient started flopping around on the exam table, throwing her body around on the table. Patient Discussion/Summary As we discussed today we will order you an MRI for your c-spine, refer you to physical therapy for your neck, and start you on a medication called topiramate. You will start with 25mg of topiramate and titrate up to the full dose of 100mg twice a day. Attending Note Attendee Role: Resident Attestation: I saw and evaluated the patient. I personally obtained the gonzalez and critical portions of the history and physical exam or was physically present for gonzalez and critical portions performed by the attendee. I reviewed the attendee's documentation and discussed the patient with the attendee. I agree with the attendee's medical decision making as documented on the attendee's note. Signatures Electronically signed by : Fidel Soto DO; Nov 18 2018 1:22PM EST (Author) Electronically signed by : Myke Burdick MD; Nov 20 2018 11:18AM EST (Author) [facility] Initial Visit (Rheumatology) on 10-29-2018 Initial Visit (Rheumatology) Chief Complaint new patient visit. patient states she have bad shoulder pain (left) down to her hand History of Present Illness This 63 year old female is self-referred. She reports pain, numbness and tingling radiating down the Lt arm for about 2 months. In the past she saw Pain Medicine for back and neck pain but the recent symptoms are new. She has a supply of gabapentin 300 mg to be taken 3 times daily, that she says was prescribed at the time of a hospital discharge, in 2017. [facility] any other [facility] system during the past year. Review of Systems As per the HPI, otherwise negative. 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 (Dr Yadira Yousif) History of Thrombolysis (Non-Coronary) 04/29/2015, Angiogram, Thrombolysis therapy, angioplasty of tibioperoneal trunk and posterior tibial artery. (Dr Gustavo Ayoub) Social History Alcohol use (V49.89) (Z78.9) Formerly daily, Quit 06/14/2015 Current every day smoker (305.1) (F17.200) Quit 06/14/2015 Allergies No Known Drug Allergies Recorded By: Bernadette Arenas; 05/26/2014 4:18:21 PM Current Meds Medication NameInstruction Acetaminophen 325 MG Oral TabletUSE DIRECTED NEEDED Acidophilus Oral CapsuleTAKE DIRECTED. Aspirin 81 MG TABSTake 1 tablet daily Clopidogrel Bisulfate 75 MG Oral TabletTake 1 tablet daily Cyclobenzaprine HCl - 5 MG Oral TabletTAKE 1 TABLET 3 times daily as directed Docusate Sodium 100 MG Oral CapsuleTAKE 1 CAPSULE TWICE DAILY. DuoNeb 0.5-2.5 (3) MG/3ML SOLNUSE DIRECTED NEEDED Gabapentin 300 MG Oral CapsuleUSE DIRECTED NEEDED GaviLAX Oral PowderUSE DIRECTED NEEDED FOR CONSTIPATION GuaiFENesin 100 MG/5ML SYRPUSE DIRECTED NEEDED Lidocaine 5 % External PatchAPPLY DIRECTED. Lovenox 40 MG/0.4ML Subcutaneous SolutionUSE DIRECTED Mirtazapine 30 MG Oral TabletTAKE 1 TABLET DAILY AT BEDTIME. Multivitamins Oral CapsuleTAKE 1 CAPSULE DAILY. Naproxen 500 MG Oral TabletTake 1 tablet twice daily Oxycodone-Acetaminophen 5-325 MG Oral TabletUSE DIRECTED NEEDED Polyethylene Glycol 3350 Oral PowderUSE DIRECTED NEEDED SEROquel XR 50 MG Oral Tablet Extended Release 24 HourTAKE 1 TABLET DAILY. Ventolin HFA 108 (90 Base) MCG/ACT Inhalation Aerosol SolutionINHALE 2 PUFFS 4 TIMES DAILY DIRECTED Vitamin B1 100 MG TABSTAKE 1 TABLET DAILY DIRECTED. Vitals Vital Signs Recorded: 29Oct2018 11:29AM Fpjbdtwixtd41.8 F Heart Rate93 Clohtjxw176 Qklabwsos78 Height5 ft 6 in Pjjjdl306 lb BMI Vubmovvhow60.73 BSA Calculated1.9 Physical Exam General: appears well. Skin: no rash. HEENT: sclerae clear. Musculoskeletal: No active synovitis in any joint. ROM in the Lt shoulder is normal and does not exacerbate the pain. Neuro: there is pain in the entire Lt arm extending to the fingers that is exacerbated by extension of the neck.. There is subjective numbness in all the fingers of the Lt hand. Diagnoses/Problems Cervical radicular pain (723.4) (M54.12) Orders Pain Management Referral Evaluation and Treatment Evaluate AND Treat. Left cervical radiculopathy. Status: Hold For - Scheduling Requested for: 29Oct2018 Ordered;For: Cervical radicular pain; Ordered By: Darryl Boudreaux Performed: Due: 27Jan2019 Xray Cervical Spine Min 4 View; Status:Hold For - Scheduling; Requested for:29Oct2018; Perform:[facility]; Due:27Jan2019;Ordered; For:Cervical radicular pain; Ordered By:Darryl Boudreaux; Radiologist to Determine Optimal Study : Y What are the patient's signs and symptoms? : Pain radiating from neck to left fingers Provider Impressions Assessment: Probable Lt cervical radiculopathy with radicular pain. ROM of the Lt shoulder does not localize the pain to the Lt shoulder or subacromial space. Plan: 1. Pt advised to take the gabapentin previously prescribed. 2. Cervical spine radiographs today. 3. Pain Management consult requested. 4. Rheumatology does not have any modality of therapy for Ms. Alves other than that which is available in Pain Management. Rheumatology followup will be as needed. Signatures Electronically signed by : Darryl Boudreaux MD; Oct 29 2018 12:20PM EST (Author) [facility] COVID-19 virus antigen assay SARS-CoV-2 (COVID-19) Ag IA.rapid Ql (Resp) [facility] Work Phone: Vital Signs Date Time Vital Sign Value Performing Clinician Facility 12-11-2024 19:00-0400 Diastolic blood pressure 76 mm[Hg] Dr. Molly Castillo MD Work Phone: [facility] 12-11-2024 19:00-0400 Heart rate 72 /min Dr. Molly Castillo MD Work Phone: [facility] 12-11-2024 19:00-0400 Respiratory rate 16 /min Dr. Molly Castillo MD Work Phone: [facility] 12-11-2024 19:00-0400 SaO2% (BldA) [Mass fraction] 96 % Dr. Molly Castillo MD Work Phone: [facility] 12-11-2024 19:00-0400 Systolic blood pressure 148 mm[Hg] Dr. Molly Castillo MD Work Phone: [facility] 12-11-2024 18:00-0400 Inhaled oxygen flow rate 2 L/min Dr. Molly Castillo MD Work Phone: [facility] 12-11-2024 15:46-0400 Body mass index (BMI) [Ratio] 33.7 kg/m2 Dr. Molly Castillo MD Work Phone: 0(535)608-952412 [place] [address] 12-11-2024 15:46-0400 Body weight [address] Molly Castillo MD Work Phone: 2(315)008-479212 [place] [address] 12-11-2024 15:44-0400 Body height 167.[address] Molly Castillo MD Work Phone: 4(508)632-655212 [place] [address] 12-11-2024 15:44-0400 Body temperature 97.4 [degF] Dr. Molly Castillo MD Work Phone: 9(359)875-408612 [place] [address] 11-23-2024 17:05-0500 Body temperature 97.3 [degF] Dr. Molly Castillo MD Work Phone: 6(013)221-460412 [place] [address] 11-23-2024 17:05-0500 Diastolic blood pressure 71 mm[Hg] Dr. Molly Castillo MD Work Phone: 8(729)313-905112 [place] [address] 11-23-2024 17:05-0500 Heart rate 86 /min Dr. Molly Castillo MD Work Phone: 1(702)347-210712 [place] [address] 11-23-2024 17:05-0500 Inhaled oxygen flow rate 2 L/min Dr. Molly Castillo MD Work Phone: 5(733)380-920512 [place] [address] 11-23-2024 17:05-0500 Respiratory rate 20 /min Dr. Molly Castillo MD Work Phone: 5(109)618-010512 [place] [address] 11-23-2024 17:05-0500 SaO2% (BldA) [Mass fraction] 99 % Dr. Molly Castillo MD Work Phone: 1(067)450-661912 [place] [address] 11-23-2024 17:05-0500 Systolic blood pressure 115 mm[Hg] Dr. Molly Castillo MD Work Phone: 5(227)115-236212 [place] [address] 11-23-2024 03:11-0500 Body mass index (BMI) [Ratio] 33 kg/m2 Dr. Molly Castillo MD Work Phone: 5(511)492-776212 [place] [address] 11-23-2024 03:11-0500 Body weight [address] Molly Castillo MD Work Phone: [facility] 11-21-2023 18:05-0500 Body temperature 97.1 [degF] Dr. Aquiles Jones Work Phone: [facility] 11-21-2023 18:05-0500 Diastolic blood pressure 82 mm[Hg] Dr. Aquiles Jones Work Phone: [facility] 11-21-2023 18:05-0500 Heart rate 83 /min Dr. Aquiles Jones Work Phone: [facility] 11-21-2023 18:05-0500 Respiratory rate 17 /min Dr. Aquiles Jones Work Phone: [facility] 11-21-2023 18:05-0500 SaO2% (BldA) [Mass fraction] 99 % Dr. Aquiles Jones Work Phone: [facility] 11-21-2023 18:05-0500 Systolic blood pressure 124 mm[Hg] Dr. Aquiles Jones Work Phone: [facility] 11-21-2023 16:54-0500 Inhaled oxygen flow rate 2 L/min Dr. Aquiles Jones Work Phone: [facility] 11-21-2023 11:32-0500 Body mass index (BMI) [Ratio] 34 kg/m2 Dr. Aquiles Jones Work Phone: [facility] 11-21-2023 11:32-0500 Body weight 95.[address] Aquiles Jones Work Phone: [facility] 11-21-2023 11:24-0500 Body height 167.[address] Aquiles Jones Work Phone: [facility] 11-10-2023 18:41-0500 Body height 167.[address] Aquiles Jones Work Phone: [facility] 11-10-2023 18:41-0500 Body mass index (BMI) [Ratio] 35 kg/m2 Dr. Aquiles Jones Work Phone: [facility] 11-10-2023 18:41-0500 Body temperature 97.3 [degF] Dr. Aquiles Jones Work Phone: [facility] 11-10-2023 18:41-0500 Body weight 98.[address] Aquiles Jones Work Phone: [facility] 11-10-2023 18:41-0500 Diastolic blood pressure 94 mm[Hg] Dr. Aquiles Jones Work Phone: [facility] 11-10-2023 18:41-0500 Heart rate 92 /min Dr. Aquiles Jones Work Phone: [facility] 11-10-2023 18:41-0500 Respiratory rate 16 /min Dr. Aquiles Jones Work Phone: [facility] 11-10-2023 18:41-0500 SaO2% (BldA) [Mass fraction] 99 % Dr. Aquiles Jones Work Phone: [facility] 11-10-2023 18:41-0500 Systolic blood pressure 182 mm[Hg] Dr. Aquiles Jones Work Phone: [facility] 08-12-2023 14:00-0500 Inhaled oxygen flow rate 2 L/min Dr. Molly Castillo Work Phone: [facility] 08-12-2023 14:00-0500 SaO2% (BldA) [Mass fraction] 99 % Dr. Molly Castillo Work Phone: [facility] 08-12-2023 13:28-0500 Body temperature 97.8 [degF] Dr. Molly Castillo Work Phone: [facility] 08-12-2023 13:28-0500 Diastolic blood pressure 48 mm[Hg] Dr. Molly Castillo Work Phone: [facility] 08-12-2023 13:28-0500 Heart rate 87 /min Dr. Molly Castillo Work Phone: [facility] 08-12-2023 13:28-0500 Respiratory rate 18 /min Dr. Molly Castillo Work Phone: 5(088)072-713412 [place] [address] 08-12-2023 13:28-0500 Systolic blood pressure 105 mm[Hg] Dr. Molly Castillo Work Phone: 7(762)447-903712 [place] [address] 08-12-2023 04:00-0500 Body mass index (BMI) [Ratio] 30.3 kg/m2 Dr. Molly Castillo Work Phone: 6(127)918-390712 [place] [address] 08-12-2023 04:00-0500 Body weight 85.[address] Molly Castillo Work Phone: 4(524)106-499912 [place] [address] 08-05-2023 08:52-0500 Body height 167.[address] Molly Castillo Work Phone: 4(051)541-850412 [place] [address] 08-05-2023 07:59-0500 Diastolic blood pressure 97 mm[Hg] Dr. Molly Castillo Work Phone: 7(715)241-350312 [place] [address] 08-05-2023 07:59-0500 Heart rate 89 /min Dr. Molly Castillo Work Phone: 2(660)866-080712 [place] [address] 08-05-2023 07:59-0500 Respiratory rate 16 /min Dr. Molly Castillo Work Phone: 9(623)551-087012 [place] [address] 08-05-2023 07:59-0500 SaO2% (BldA) [Mass fraction] 98 % Dr. Molly Castillo Work Phone: 5(694)994-212812 [place] [address] 08-05-2023 07:59-0500 Systolic blood pressure 112 mm[Hg] Dr. Molly Castillo Work Phone: 9(722)335-364112 [place] [address] 08-05-2023 04:58-0500 Inhaled oxygen flow rate 2 L/min Dr. Molly Castillo Work Phone: 6(525)413-386712 [place] [address] 08-05-2023 02:19-0500 Body height 167.[address] Molly Castillo Work Phone: 7(537)209-187412 [place] [address] 08-05-2023 02:19-0500 Body mass index (BMI) [Ratio] 39.1 kg/m2 Dr. Molly Castillo Work Phone: 6(764)615-655398 [place] [address] 08-05-2023 02:19-0500 Body temperature 96.9 [degF] Dr. Molly Castillo Work Phone: 8(163)700-757612 [place] [address] 08-05-2023 02:19-0500 Body weight 109.[address] Molly Castillo Work Phone: 3(326)803-119412 [place] [address] 06-04-2023 12:45-0400 Body height 167.[address] Molly Castillo Work Phone: 8(292)864-020912 [address] [place] [address] 06-04-2023 12:45-0400 Body temperature 98.6 [degF] Dr. Molly Castillo Work Phone: 1(892)926-685312 [place] [address] 06-04-2023 12:45-0400 Diastolic blood pressure 88 mm[Hg] Dr. Molly Castillo Work Phone: 4(284)789-407712 [place] [address] 06-04-2023 12:45-0400 Heart rate 89 /min Dr. Molly Castillo Work Phone: 3(842)014-941412 [place] [address] 06-04-2023 12:45-0400 Inhaled oxygen flow rate 3 L/min Dr. Molly Castillo Work Phone: 7(826)263-190912 [place] [address] 06-04-2023 12:45-0400 Respiratory rate 20 /min Dr. Molly Castillo Work Phone: 5(683)764-766612 [place] [address] 06-04-2023 12:45-0400 SaO2% (BldA) [Mass fraction] 92 % Dr. Molly Castillo Work Phone: 0(642)910-811112 [place] [address] 06-04-2023 12:45-0400 Systolic blood pressure 99 mm[Hg] Dr. oMlly Castillo Work Phone: 6(267)093-810712 [place] [address] 04-29-2023 14:12-0400 Body mass index (BMI) [Ratio] 35.4 kg/m2 Dr. Molly Castillo Work Phone: 4(736)691-418612 [place] [address] 04-29-2023 14:12-0400 Body temperature 98.2 [degF] Dr. Molly Castillo Work Phone: 6(326)816-585398 [place] [address] 04-29-2023 14:12-0400 Body weight 99.[address] Molly Castillo Work Phone: 0(881)342-183112 [place] [address] 04-29-2023 14:12-0400 Diastolic blood pressure 82 mm[Hg] Dr. Molly Castillo Work Phone: 2(766)823-129012 [place] [address] 04-29-2023 14:12-0400 Heart rate 78 /min Dr. Molly Castillo Work Phone: 5(416)735-947512 [place] [address] 04-29-2023 14:12-0400 Respiratory rate 22 /min Dr. Molly Castillo Work Phone: 6(332)597-914312 [place] [address] 04-29-2023 14:12-0400 Systolic blood pressure 128 mm[Hg] Dr. Molly Castillo Work Phone: 8(223)241-936912 [place] [address] 04-13-2023 10:31-0400 Body height 167.[address] Molly Castillo Work Phone: 4(156)970-903612 [place] [address] 04-13-2023 10:31-0400 Body mass index (BMI) [Ratio] 35.8 kg/m2 Dr. Molly Castillo Work Phone: 6(328)392-546312 [place] [address] 04-13-2023 10:31-0400 Body temperature 97.9 [degF] Dr. Molly Castillo Work Phone: 2(985)143-168012 [place] [address] 04-13-2023 10:31-0400 Body weight 100.[address] Molly Castillo Work Phone: 8(878)657-283412 [place] [address] 04-13-2023 10:31-0400 Diastolic blood pressure 134 mm[Hg] Dr. Molly Castillo Work Phone: 0(362)440-725612 [place] [address] 04-13-2023 10:31-0400 Heart rate 88 /min Dr. Molly Castillo Work Phone: 1(580)281-704912 [place] [address] 04-13-2023 10:31-0400 Inhaled oxygen flow rate 3 L/min Dr. Molly Castillo Work Phone: 3(434)264-803212 [place] [address] 04-13-2023 10:31-0400 Respiratory rate 16 /min Dr. Molly Castillo Work Phone: 0(193)315-313112 [place] [address] 04-13-2023 10:31-0400 SaO2% (BldA) [Mass fraction] 96 % Dr. Molly Castillo Work Phone: 0(216)151-207212 [place] [address] 04-13-2023 10:31-0400 Systolic blood pressure 181 mm[Hg] Dr. Molly Castillo Work Phone: 1(319)939-105912 [place] [address] 02-15-2023 17:34-0400 Diastolic blood pressure 75 mm[Hg] Dr. Molly Csatillo Work Phone: 1(852)021-735712 [place] [address] 02-15-2023 17:34-0400 Heart rate 76 /min Dr. Molly Castillo Work Phone: 8(583)081-798412 [place] [address] 02-15-2023 17:34-0400 Respiratory rate 14 /min Dr. Molly Castillo Work Phone: 0(650)524-786412 [place] [address] 02-15-2023 17:34-0400 SaO2% (BldA) [Mass fraction] 99 % Dr. Molly Castillo Work Phone: 1(235)970-093612 [place] [address] 02-15-2023 17:34-0400 Systolic blood pressure 106 mm[Hg] Dr. Molly Castillo Work Phone: 6(073)532-204912 [place] [address] 02-15-2023 14:53-0400 Body mass index (BMI) [Ratio] 36.6 kg/m2 Dr. Molly Castillo Work Phone: 8(505)096-577412 [place] [address] 02-15-2023 14:53-0400 Body temperature 98 [degF] Dr. Molly Castillo Work Phone: 5(427)808-949712 [place] [address] 02-15-2023 14:53-0400 Body weight [address] Molly Castillo Work Phone: 5(104)472-309112 [place] [address] 02-15-2023 13:00-0400 Body mass index (BMI) [Ratio] 35.6 kg/m2 Dr. Molly Castillo Work Phone: 2(205)358-443612 [place] [address] 02-15-2023 13:00-0400 Body weight 100.[address] Molly Castillo Work Phone: [facility] 02-15-2023 13:00-0400 Diastolic blood pressure 73 mm[Hg] Dr. Molly Castillo Work Phone: [facility] 02-15-2023 13:00-0400 Heart rate 89 /min Dr. Molly Castillo Work Phone: [facility] 02-15-2023 13:00-0400 Inhaled oxygen flow rate 3 L/min Dr. Molly Castillo Work Phone: 8(795)281-027198 [place] [address] 02-15-2023 13:00-0400 Respiratory rate 18 /min Dr. Molly Castillo Work Phone: 4(329)998-627598 [place] [address] 02-15-2023 13:00-0400 SaO2% (BldA) [Mass fraction] 9 % Dr. Molly Castillo Work Phone: [facility] 02-15-2023 13:00-0400 Systolic blood pressure 124 mm[Hg] Dr. Molly Castillo Work Phone: [facility] 10-22-2022 15:58-0500 Body height 167.64 cm [facility] 10-22-2022 15:58-0500 Body mass index (BMI) [Ratio] 33.9 kg/m2 [facility] 10-22-2022 15:58-0500 Body temperature 97 [degF] [facility] 10-22-2022 15:58-0500 Body weight 95.25 kg [facility] 10-22-2022 15:58-0500 Diastolic blood pressure 86 mm[Hg] [facility] 10-22-2022 15:58-0500 Heart rate 85 /min [facility] 10-22-2022 15:58-0500 Respiratory rate 18 /min [facility] 10-22-2022 15:58-0500 SaO2% (BldA) [Mass fraction] 100 % [facility] 10-22-2022 15:58-0500 Systolic blood pressure 122 mm[Hg] [facility] 07-30-2022 15:57-0400 Respiratory rate 18 /min [facility] 07-30-2022 15:57-0400 SaO2% (BldA) [Mass fraction] 97 % [facility] 07-30-2022 14:34-0400 Heart rate 98 /min [facility] 07-30-2022 14:03-0400 Inhaled oxygen flow rate 3 L/min [facility] 07-30-2022 12:33-0400 Body height 167.64 cm [facility] Work Phone: 07-30-2022 12:33-0400 Body mass index (BMI) [Ratio] 32.9 kg/m2 [facility] 07-30-2022 12:33-0400 Body temperature 97.8 [degF] [facility] 07-30-2022 12:33-0400 Body weight 92.53 kg [facility] 07-30-2022 12:33-0400 Diastolic blood pressure 93 mm[Hg] [facility] 07-30-2022 12:33-0400 Systolic blood pressure 140 mm[Hg] [facility] 04-13-2020 18:51-0400 Body Temperature 98.4 [degF] [facility] [place] 04-13-2020 18:51-0400 BP Diastolic 84 mm[Hg] [facility] [place] 04-13-2020 18:51-0400 BP Systolic 145 mm[Hg] [facility] [place] 04-13-2020 18:51-0400 Pulse (Heart Rate) 79 /min [facility] [place] 04-13-2020 18:51-0400 Pulse Oximetry 95 % [facility] [place] 04-13-2020 18:51-0400 Respiratory Rate 18 /min [facility] [place] 04-13-2020 09:30-0400 BMI (Body Mass Index) 16.94 kg/m2 [facility] [place] 04-13-2020 09:30-0400 Body weight 47.6 kg Tommie Odonnell [facility] PATRICIA Comment on above: pt states she has lost weight r/t daily cocaine use over the past year 04-13-2020 08:58-0400 Height 167.6 cm Tommie Longoria [facility] PATRICIA 06-12-2019 00:29-0400 Body temperature 37.0 degrees C [facility] Comment on above: Result Comment: NOTE: PATIENT RESULTS AR E NOT CORRECTED FOR TEMPERATURE. Performed By: #### V FPA3 #### [facility] [id number] [address] Encounters Encounter Date Encounter Type Care Provider Facility Start: 07-12-2025 End: 07-12-2025 ambulatory [facility] Facility:[facility] Start: 07-12-2025 Patient encounter procedure MOLLY [facility] Start: 06-22-2025 End: 06-22-2025 ambulatory CHRISTA FRANZ Facility:[facility] Start: 06-01-2025 End: 06-01-2025 ambulatory ELHAMYINA DOMINGUEZ Facility:[facility] Start: 05-11-2025 ambulatory [facility] Facility:[facility] Start: 05-11-2025 End: 05-11-2025 ambulatory HAYLEE WANG Facility:[facility] Start: 04-09-2025 End: 04-09-2025 ambulatory ELI BRAGG Facility:[facility] Start: 03-23-2025 End: 03-23-2025 ambulatory CHRISTA FRANZ Facility:[facility] Start: 03-01-2025 End: 03-01-2025 ambulatory ELHAM MCKAYITALO BLANKENSHIPARAM Facility:[facility] Start: 02-23-2025 End: 02-23-2025 ambulatory CHRISTA FRANZ Facility:[facility] Start: 02-05-2025 ambulatory HAYLEE WANG Facil ity:[facility] Start: 02-05-2025 End: 02-05-2025 ambulatory HAYLEE WANG Facility:[facility] Start: 02-02-2025 End: 02-02-2025 ambulatory TRACEY D GOINS Facility:[facility] Start: 01-01-2025 End: 01-01-2025 ambulatory MANKATO OLDER Facility:[facility] Start: 12-21-2024 End: 12-21-2024 ambulatory ELHAM DOMINGUEZ Facility:[facility] Start: 12-18-2024 End: 12-18-2024 ambulatory [facility] Facility:[facility] Start: 12-11-2024 End: 12-11-2024 Emergency department patient visit Titi Jesus Facility:[facility] Start: 12-11-2024 End: 12-11-2024 ambulatory [facility] Facility:[facility] Start: 12-10-2024 End: 12-10-2024 ambulatory [facility] Facility:[facility] Start: 11-23-2024 Non-patient / Non-visit Dr. Stephenie velasco MD [facility] Work Phone: Start: 11-23-2024 Non-patient / Non-visit Dr. Elizabeth Corley MD [facility] Start: 11-22-2024 Non-patient / Non-visit Dr. Elizabeth Kenny MD [facility] Work Phone: Start: 11-21-2024 Non-patient / Non-visit Dr. Elizabeth Kenny MD [facility] Work Phone: Start: 11-20-2024 Non-patient / Non-visit Dr. Elizabeth Kenny MD [facility] Work Phone: Start: 11-20-2024 Non-patient / Non-visit Dr. Zeyad Urbina own -[facility] Start: 11-19-2024 Non-patient / Non-visit Dr. Elizabeth Kenny MD [facility] Work Phone: Start: 11-19-2024 Non-patient / Non-visit Dr. Zeyad Urbina own DO -[facility] Start: 11-18-2024 ambulatory Alexia Jeffery [facility] Start: 11-18-2024 Non-patient / Non-visit Dr. Elizabeth Kenny MD -[facility] Work Phone: Start: 11-17-2024 End: 11-17-2024 ambulatory Alexia Gil Facility:[facility] Start: 11-17-2024 End: 11-17-2024 Non-patient / Non-visit Dr. Alexia Gil MD -[facility] Work Phone: Start: 11-17-2024 ambulatory Stephenie Yu Facility:[facility] Start: 11-17-2024 End: 11-23-2024 Evaluation and management of inpatient Stephenie [place] Facility:[facility] Start: 11-17-2024 ambulatory [facility] Facility:[facility] Start: 11-09-2024 End: 11-09-2024 ambulatory MYKE UGARTEKALLI Facility:[facility] Start: 10-30-2024 End: 10-30-2024 ambulatory ELI BRAGG Facility:[facility] Start: 10-27-2024 End: 10-27-2024 ambulatory MATTHEW MAXWELL [facility] Start: 09-21-2024 End: 09-21-2024 ambulatory ELHAM DOMINGUEZ Facility:[facility] Start: 09-15-2024 End: 09-15-2024 ambulatory MATTHEW MAXWELL [facility] Start: 08-21-2024 [facility] Start: 08-18-2024 End: 08-18-2024 ambulatory DOMINICK PAYTON [facility] Start: 08-14-2024 End: 08-14-2024 ambulatory LISS STUBBS Facility:[facility] Start: 08-07-2024 End: 08-09-2024 ambulatory [facility] Start: 07-31-2024 End: 07-31-2024 ambulatory ELI BRAGG Facility:[facility] Start: 07-29-2024 End: 07-29-2024 ambulatory HAYLEE WANG Facility:[facility] Start: 07-22-2024 Encounter for other preprocedural examination ELHAM DOMINGUEZ [facility] Start: 07-22-2024 End: 07-22-2024 ambulatory ELHAM RAMANITALO BLANKENSHIPPEDRO LUIS Facility:[facility] Start: 07-21-2024 End: 07-21-2024 ambulatory TRACEY GOINS Facility:[facility] Start: 06-23-2024 End: 06-23-2024 ambulatory DOMINICK PAYTON Facility:[facility] Start: 04-29-2024 End: 04-29-2024 ambulatory Stefanne Bennett Facility:[facility] Start: 04-14-2024 ambulatory Molly Castillo [facility] Start: 03-30-2024 ambulatory Stef Bennett [facility] Start: 03-24-2024 End: 03-24-2024 ambulatory DOMINICK PAYTON Facility:[facility] Start: 12-17-2023 End: 12-17-2023 ambulatory DOMINICK PAYTON Facility:[facility] Start: 11-21-2023 End: 11-21-2023 Emergency department patient visit Dr. Aquiles Jones Work Phone: [facility] Work Phone: Start: 11-10-2023 End: 11-10-2023 Emergency department patient visit Dr. Aquiles Jones Work Phone: [facility] Work Phone: Start: 11-05-2023 End: 11-05-2023 ambulatory DOMINICK PAYTON Facility:[facility] Start: 08-13-[address] Aquiles gupta Work Phone: [facility] Start: 08-12-2023 Non-patient / Non-visit Dr. Sanjuana Castillo Work Phone: [facility] Work Phone: Start: 08-12-2023 End: 08-12-2023 Non-patient / Non-visit Dr. Aquiles Jones Work Phone: [facility] Work Phone: Start: 08-11-2023 Non-patient / Non-visit Dr. Sanjuana Castillo Work Phone: [facility] Work Phone: Start: 08-10-2023 Non-patient / Non-visit Dr. Sanjuana Castillo Work Phone: [facility] Work Phone: Start: 08-09-2023 Non-patient / Non-visit Dr. Sanjuana Castillo Work Phone: [facility] Work Phone: Start: 08-08-2023 Non-patient / Non-visit Dr. Sanjuana Castillo Work Phone: [facility] Work Phone: Start: 08-07-2023 Non-patient / Non-visit Dr. Sanjuana Castillo Work Phone: [facility] Start: 08-07-2023 Non-patient / Non-visit Dr. Sanjuana Castillo Work Phone: [facility] Work Phone: Start: 08-06-2023 Non-patient / Non-visit Dr. Sanjuana Castillo Work Phone: [facility] Start: 08-06-2023 Non-patient / Non-visit Dr. Sanjuana Castillo Work Phone: [facility] Work Phone: Start: 08-05-2023 Non-patient / Non-visit Dr. Sanjuana Castillo Work Phone: [facility] Start: 08-05-2023 End: 08-12-2023 Evaluation and management of inpatient Dr. Molly Castillo Work Phone: [facility]Pro[facility] Work Phone: Start: 08-05-2023 End: 08-12-[address] Molly Castillo Work Phone: [facility] Work Phone: Start: 06-24-2023 End: 06-24-[address] Molly Castillo Work Phone: [facility] Work Phone: Start: 06-24-2023 End: 06-24-[address] Molly Castillo Work Phone: [facility]Occupational Therapy Work Phone: Start: 06-20-[address] Luba Castillo Work Phone: [facility] Work Phone: Start: 06-17-2023 End: 06-17-[address] Molly Castillo Work Phone: [facility] Work Phone: Start: 06-17-2023 End: 06-17-[address] Molly Castillo Work Phone: [facility] Work Phone: Start: 06-04-2023 End: 06-04-2023 Emergency department patient visit Dr. Molly Castillo Work Phone: [facility]Emergency [facility] Work Phone: Start: 05-29-[address] Luba Castillo Work Phone: [facility] Work Phone: Start: 05-23-2023 End: 05-23-[address] Molly Castillo Work Phone: [facility] Work Phone: Start: 04-29-2023 End: 04-29-[address] Molly Castillo Work Phone: [facility] Work Phone: Start: 04-13-2023 End: 04-13-2023 Emergency department patient visit Dr. Molly Castillo Work Phone: [facility] Work Phone: Start: 02-15-2023 End: 02-15-2023 Emergency department patient visit Dr. Molly Castillo Work Phone: [facility] Work Phone: Start: 02-15-[address] Molly Castillo Work Phone: [facility] Start: 02-15-2023 End: 02-15-2023 Admission to same day surgery center Dr. Molly Castillo Work Phone: [facility] Start: 02-15-2023 End: 02-15-[address] Molly Castillo Work Phone: [facility] Work Phone: Start: 01-29-2023 End: 01-29-[address] Molly Castillo Work Phone: [facility]-Pulmonary Services/Neurology Work Phone: Start: 01-14-2023 End: 01-14-[address] Molly Castillo Work Phone: [facility] Work Phone: Start: 01-14-2023 End: 01-14-[address] Molly Castillo Work Phone: [facility] Start: 10-22-2022 End: 10-22-2022 Emergency department patient visit [facility] Start: 09-19-2022 End: 09-19-2022 ambulatory [facility] Work Phone: Start: 09-19-2022 End: 09-19-2022 Discharged Recurring [facility]-Physical Therapy Start: 07-30-2022 End: 07-30-2022 Emergency department patient visit [facility] Start: 04-13-2020 End: 04-13-2020 Emergency department patient visit Tommie Odonnell Work Phone: [facility] Emergency Dept Comment on above: Cocaine abuse (HCC) (Primary Dx) Start: 12-12-2019 End: 12-13-2019 Emergency department patient visit LUCIANO LAWRENCE Facility:[facility] Start: 01-05-2019 End: 01-05-2019 Patient encounter procedure Myke Burdick Facility[facility] Start: 12-12-2018 Patient encounter procedure Myke Burdick Facility:[facility] Start: 11-18-2018 Patient encounter procedure Myke Burdick Facility:[facility] Procedures Date Procedure Procedure Detail Performing Clinician Start: 06-22-2025 Echocardiography LORI DOMINGUEZ Start: 12-11-2024 CT angiography of ch est with contrast Dr. Molly Castillo MD Work Phone: Start: 11-23-2024 Cardiovascular stres s test using pharmacologic stress agent Dr. Molly Castillo MD Work Phone: Start: 11-19-2024 Legionella pneumophi la antigen assay Dr. Molly Castillo MD Work Phone: Start: 11-19-2024 Streptococcus pneumo niae antigen assay Dr. Molly Castillo MD Work Phone: Start: 11-19-2024 CT angiography of ch est with contrast Dr. Molly Castillo MD Work Phone: Start: 11-17-2024 SARS-CoV-2, Influenz a & RSV (PCR) Dr. Molly Castillo MD Work Phone: Start: 11-17-2024 X-ray of chest, PA a nd lateral views Dr. Molly Castillo MD Work Phone: Start: 06-23-2024 Follow-up visit Follow Up PRASANTH PAYTON Start: 11-21-2023 Plain chest X-ray Dr. Tino Jones Work Phone: Start: 11-21-2023 CT of abdomen and pe lvis without contrast Dr. Aquiles Jones Work Phone: Start: 11-10-2023 X-ray of both feet Dr. Aquiles Jones Work Phone: Start: 08-08-2023 Pulmonary ventilatio n perfusion study Dr. Molly Castillo Work Phone: Start: 08-05-2023 Cardiovascular stres s test using pharmacologic stress agent Dr. Molly Castillo Work Phone: Start: 08-05-2023 Plain chest X-ray Dr. Taryn Castillo Work Phone: Start: 06-17-2023 Ultrasound elastogra phy of liver Dr. Molly Castillo Work Phone: Start: 06-04-2023 Plain x-ray of pelvi s and lower extremity Dr. Molly Castillo Work Phone: Start: 05-23-2023 Diagnostic radiograp hy of abdomen, decubitus and erect Dr. Molly Castillo Work Phone: Start: 04-13-2023 Plain x-ray of pelvi s and lower extremity Dr. Molly Castillo Work Phone: Start: 02-15-2023 Plain chest X-ray Dr. Taryn Castillo Work Phone: Start: 02-15-2023 CT cervical spine wi thout contrast Dr. Molly Castillo Work Phone: Start: 02-15-2023 CT of head without contrast Dr. Molly Castillo Work Phone: Start: 02-15-2023 Plain X-ray of shoulder Dr. Molly Castillo Work Phone: Start: 02-15-2023 Plain x-ray of wrist Dr Juan Antonio Castillo Work Phone: Start: 10-22-2022 X-ray of cervical spine Start: 07-30-2022 Plain chest X-ray Start: 04-13-2020 COVID-19 Ishaan kim Work Phone: Start: 04-13-2020 Assay of ethanol Ishaan Martinez Work Phone: Start: 04-13-2020 Blood count complete auto&auto difrntl wbc Ishaan Martinez Work Phone: Start: 04-13-2020 Comprehensive metabolic panel Ishaan Martinez Work Phone: Start: 04-13-2020 Creatine kinase total A sirena Martinez Work Phone: Start: 04-13-2020 Drug screen class list a Ishaan Martinez Work Phone: Start: 04-13-2020 Urnls dip stick/tabl et rgnt auto w/o microscopy Ishaan Martinez Work Phone: Start: 12-12-2019 Blood count complete [...] int rlmnr crv/thrc w/img najman Myke Burdick Viral antigen assay Viral antigen assay Plan of Treatment Date Care Activity Detail Author Start: 12-11-2024 End: 12-11-2024 [facility] Start: 12-11-2024 [facility] Start: 11-23-2024 Patient discharge [facility] Start: 11-22-2024 [facility] Start: 11-20-2024 [facility] Start: 11-19-2024 Physiotherapy of chest [facility] Start: 11-19-2024 Consultation [facility] Start: 11-17-2024 Respiratory secretion precautions [facility] Start: 11-17-2024 Following clinical pathway protocol [facility] Start: 11-17-2024 Assessment of risk of venous thromboembolism [facility] Start: 11-17-2024 Insertion of catheter into peripheral vein [facility] Start: 11-17-2024 Measuring intake and output [facility] Start: 11-17-2024 Oxygen therapy [facility] Start: 11-17-2024 Providing care according to standard [facility] Start: 11-17-2024 Provision of activity privileges [facility] Start: 11-17-2024 Referral to occupational therapist [facility] Start: 11-17-2024 Referral to service [facility] Start: 11-17-2024 [facility] Start: 11-17-2024 Admission procedure [facility] Start: 11-17-2024 Inhalation therapy procedure [facility] Start: 11-17-2024 [facility] Start: 11-21-2023 [facility] Start: 11-10-2023 [facility] Start: 08-12-2023 Patient discharge [facility] Start: 08-08-2023 Care planning and problem solving actions [facility] Start: 08-08-2023 Referral to occupational therapist [facility] Start: 08-08-2023 Referral to service [facility] Start: 08-08-2023 Physiotherapy of chest [facility] Start: 08-06-2023 End: 08-07-2023 [facility] Start: 08-05-2023 [facility] Start: 08-05-2023 Following clinical pathway protocol [facility] Start: 08-05-2023 Assessment of risk of venous thromboembolism [facility] Start: 08-05-2023 Care of central venous catheter [facility] Start: 08-05-2023 Inhalation therapy procedure [facility] Start: 08-05-2023 Insertion of catheter into peripheral vein [facility] Start: 08-05-2023 Introduction of urinary catheter [facility] Start: 08-05-2023 Measuring intake and output [facility] Start: 08-05-2023 Oxygen therapy [facility] Start: 08-05-2023 Providing care according to standard [facility] Start: 08-05-2023 Provision of activity privileges [facility] Start: 08-05-2023 Referral to service [facility] Start: 08-05-2023 [facility] Start: 08-05-2023 Hospital admission, emergency, from emergency room, medical nature [facility] Start: 08-05-2023 Troponin I measurement [facility] Start: 08-05-2023 Verification routine [facility] Start: 08-05-2023 Admission procedure [facility] Start: 08-05-2023 CT angiography of chest with contrast CTA Chest W/WO Contrast [facility] Start: 08-05-2023 [facility] Start: 04-13-2023 Plain x-ray of pelvis and lower extremity HIP, UNI W/ Pelvis 2-3 Views [facility] Start: 04-13-2023 XR Pelvis and Hip Views [facility] Start: 01-29-2023 Physiotherapy of chest [facility] Start: 01-14-2023 Acute hepatitis 2000 panel - Serum [facility] Start: 01-14-2023 Angiotensin converting enzyme [Enzymatic activity/volume] in Serum or Plasma [facility] Start: 01-14-2023 Ceruloplasmin [Mass/volume] in Serum or Plasma [facility] Start: 01-14-2023 Copper [Moles/volume] in Serum or Plasma [facility] Start: 01-14-2023 Haptoglobin [Mass/volume] in Serum or Plasma [facility] Start: 01-14-2023 Hepatitis A virus Ab panel - Serum [facility] Start: 01-14-2023 Hepatitis B virus genotype [Identifier] in Serum or Plasma by SHEELA with probe detection [facility] Start: 01-14-2023 Hepatitis C virus RNA assay [facility] Start: 01-14-2023 Smooth muscle Ab [Presence] in Serum [facility] Start: 01-14-2023 [facility] Start: 07-30-2022 [facility] Start: 05-31-2020 Influenza vaccination Flu vaccine (#1) [place] Start: 01-19-2006 Screening for malignant neoplasm of breast Breast cancer screen [place] Start: 01-19-2006 Screening for malignant neoplasm of colon Colon cancer screen colonoscopy [place] Start: 01-19-2006 Shingles Vaccine (1 of 2) Shingles Vaccine (1 of 2) [place] Start: 1996 Lipid panel Lipid [place] Start: 01-19-1977 Screening for malignant neoplasm of cervix Cervical cancer [place] Start: 01-19-1975 DTaP/Tdap/Td vaccine (1 - Tdap) DTaP/Tdap/Td vaccine (1 - Tdap) [place] Start: 01-19-1971 HIV screening HIV screen [place] Start: 1956 Creatinine measurement Creatinine monitoring [place] Start: 1956 Hepatitis C screening Hepatitis C screen [place] Start: 1956 Potassium monitoring Potassium monitoring [place] Hepatic function panel [facility] Hepatitis A virus Ab [Presence] in Serum [facility] Hepatitis A virus Ig M Ab [Presence] in Serum [facility] Hepatitis B core ant ibody measurement, IgM type [facility] Hepatitis B surface antigen measurement [facility] Hepatitis C antibody measurement [facility] Hepatitis C virus ge notype [Identifier] in Blood by SHEELA with probe detection [facility] Liver stiffness by US.transient elastography [facility] Neutrophil cytoplasm ic Ab.classic [Units/volume] in Serum [facility] P-ANCA measurement [facility] Patient Education [facility] Work Phone: Patient referral [facility] Work Phone: PCR for Hepatitis C [facility] T4 free measurement [facility] Thyroid stimulating hormone measurement [facility] Triiodothyronine, fr ee measurement [facility] Immunizations Immunization Date Immunization Notes Care Provider Johanna smith 10-19-2021 Covid (Pfizer) Dr. Molly nuñez Work Phone: [facility] 2021 Covid (Pfizer) Dr. Molly nuñez Work Phone: [facility] 12-23-2020 Covid (VINTAGEHUB) Dr. Molly nuñez Work Phone: [facility] 05-16-2015 pneumococcal polysaccharide vaccine, [address] Molly Castillo Work Phone: [facility] Payers Date Payer Category Payer Self-pay [id number] 2021 Medicare [id number] 2017 Medicaid [id number] 2017 Medicare [id number] 2016 Unknown [facility] MEDICAID [id number] 2016-Present [phone] CLAIMS DEPARTMENT [address] [place] [address] [id number] 1956 Unknown [id number] 1955 Unknown [id number] [id number] 1955 Unknown [id number] 2.840.1.383100.3.579.2.356 1955 Unknown [id number] [id number] Medicare [id number] Unknown [id number] 2.16.840.1.571470.3.579.2.462 Unknown [id number] 2.16.840.1.801651.3.579.2.462 Unknown [id number] 2.16.840.1.402545.3.579.2.462 Unknown [id number] 2.16840.1.340850.3.579.2.462 Unknown [id number] 2.16.840.1.891394.3.579.2.462 Unknown [id number] 2.16.840.1.258044.3.579.2.462 Unknown [id number] 2.16.840.1.293426.3.579.2.462 Unknown [id number] 2.16.840.1.248874.3.579.2.462 Unknown [id number] 2.16.840.1.683295.3.579.2.462 Unknown [id number] 2.16.840.1.036795.3.579.2.462 Unknown [id number] 2.16.840.1.281336.3.579.2.462 Unknown [id number] 2.16.840.1.480561.3.579.2.462 Unknown [id number] 2.16.840.1.247779.3.579.2.462 Unknown [id number] 2.16.840.1.025552.3.579.2.462 Unknown [id number] 2.16.840.1.300714.3.579.2.462 Unknown [id number] 2.16.840.1.892615.3.579.2.462 Unknown [id number] 2.16.840.1.920509.3.579.2.462 Unknown [id number] 2.16.840.1.058621.3.579.2.462 Unknown [id number] [id number] Social History Date Type Detail Facility Start: 04-13-2020 [facility] [place] History of tobacco use Cigarette Smoker [place] Start: 04-13-2020 Cigarettes smoked current (pack per day) - Reported [place] Start: 04-13-2020 Tobacco use and exposure Never used [place] Start: 04-13-2020 Alcohol intake Current drinke r of alcohol (finding) [place] Sex Assigned At Not on file [place] Exposure to SARS-CoV -2 (event) Not sure [facility] [place], [place] Start: 07-30-2022 End: 11-21-2023 Tobacco smoking status NHIS Unknown if ever smoked [facility] Start: 09-12-2020 None [facility] Start: 09-12-2020 Alone [facility] Start: 02-08-2021 Cigarettes [facility] Start: 1955 Sex Assigned At Female W [facility] Start: 12-11-2024 Tobacco smoking stat us NHIS Ex-smoker (finding) [facility] Start: 12-11-2024 Sex Female (finding) [facility] Medical Equipment Procedure Code Equipment Code Equipment Origin al Text Equipment Identifier Dates Colonoscopy Ligation clip, metallic ([id number] [facility] Start: 04-29-2024 Goals Date Patient Goal Desired Activity /State Functional Status Date Assessment Result Facility 11-23-2024 Functional status Ambulates [facility] Work Phone: 08-12-2023 Functional status Ambulates;Bathroom Priv ilege [facility] Work Phone: Mental Status Date Assessment Result Facility 12-11-2024 Cognitive function Level Of Cons ciousness Awake;Alert;Appropriate;Follow s Commands [facility] Work Phone: 11-23-2024 Cognitive function Voice/Name [facility] Work Phone: 08-12-2023 Cognitive function Voice/Name [facility] Work Phone: 08-05-2023 Cognitive function Voice/Name [facility] Work Phone: 10-22-2022 Cognitive function Level Of Cons ciousness Awake;Alert;Appropriate;Follow s Commands [facility] Work Phone: Clinical Notes 10-22-2022 to 07-12-2025 Note Date & Type Note Facility 07-12-2025 Note [facility] 06-22-2025 Note [facility] 06-01-2025 Note [facility] 05-11-2025 Note [facility] 05-11-2025 Note [facility] 04-16-2025 Note [facility] 04-09-2025 Note [facility] 03-23-2025 Note [facility] 03-01-2025 Note [facility] 02-05-2025 Note [facility] 02-05-2025 Note [facility] 01-01-2025 Note [facility] 12-21-2024 Note [facility] 12-18-2024 Note [facility] 12-11-2024 Discharge summary [facility] 12-11-2024 Radiology Diagnostic study note [facility] Imaging Services [address], [place] [address] CTA Chest W/WO Contrast MR#: [id number] Acct: [id number] Name: DIANNE ALVES Rep #: [id number] : 1955 F 69 From: Xiomara Do MD PCP: Dr. Molly Castillo MD Status: REG E R Study:CTA Chest W/WO Contrast Date of Exam: 12/11/24 Exam# [id number] Ordering Dr: Remedios Jesus MD PROCEDURE: CTA CHEST W/WO CONTRAST REASON FOR EXAM: R-SIDED CP AND ELEVATED D-DIMER TECHNIQUE: CTA imaging of the chest with intravenous contrast. 3D reconstructions. CONTRAST: COMPARISON: None. FINDINGS: Hardware: None. Lymph nodes: No mediastinal hilar or axillary lymphadenopathy. Multiple low-attenuation thyroid nodules, measuring up to 16 mm. Heart: Normal heart size. No pericardial effusion. RV/LV Diameter Ratio: N/A Thoracic Aorta: No thoracic aortic aneurysm or dissection. Pulmonary Vessels: No evidence of acute pulmonary emboli through the major subsegmental branches. Most Proximal Level of Embolus (if embolus present): N/A Lungs and Airways: Central airways are patent without endobronchial lesions. Right middle lobe consolidative opacity, with air bronchograms, concerning for lobar pneumonia. Moderate upper lobe predominant centrilobular emphysema. No suspicious pulmonary nodules. No pneumothorax. No pleural effusion. Patchy opacities in the lingula, likely secondary to atelectasis. Mild bibasilar atelectasis. Upper Abdomen: Visualized portions of the upper abdominal viscera are unremarkable. Bones: Bone windows are unremarkable. CT/CTA Chest W/WO Contrast IMPRESSION: 1. No evidence of pulmonary embolism. 2. Right middle lobe consolidative opacity with air bronchograms, concerning forpneumonia. Moderate upper lobe predominant centrilobular emphysema. 3. Multiple low-attenuation thyroid lobe nodules. Recommend nonemergent thyroidultrasound. One or more dose reduction techniques were used (e.g., Automated exposure control, adjustment of the mA and/or kV according to patient size, use of iterative reconstruction technique). Reading Location: [facility] CC: Dr. Molly Castillo MD; Dr. Titi Jesus MD ~ Mds Coordinator: Signed [facility] 12-11-2024 Discharge summary Note Date/Time December 11, 2024 7:36pm [facility] Medical Records Department [address] [place] [address] Emergency Department Summary 12/11/24 MR#: [id number] Acct: [id number] Name: DIANNE ALVES Rep #:[id number] : 1955 69 From: Titi Jesus MD PCP: Dr. Molly Castillo MD Status:REG E R Location: ED HPI History of Present Illness Chief Complaint: Abn Labs Informant: patient Onset/Context/Timing Onset: Days Context: Gradual Onset Timing: Continuous Current Severity: Mild Maximum Severity: Mild Narrative Narrative: 69-year-old female history of prior DC, hep C, COPD, hypertension, prior lower extremity DVT. Currently not on blood thinners besides aspirin. Had a hospitalization last month for influenza. Followed up with her primary care provider and nurse practitioner today at the office. Had an elevated D-dimer for atypical right-sided chest pain and was sent to the emergency department forfurther evaluation. Patient describes discomfort in her right upper chest. Mild shortness of breath. No hemoptysis. No fever. No exertional chest pain or left-sided chest pain. Prior similar symptoms: No Recent Illness/Hospitalization: Yes [facility] Medical History Type 2 acute myocardial infarction Wears glasses Post-menopausal Gastric reflux Depression Walker as ambulation aid Arthritis Bladder disease High cholesterol Hx of fracture of wrist Back pain Syncope Loss of consciousness Shortness of breath on exertion Leg cramps History of edema History of echocardiogram History of stress test Cardiology follow-up encounter Dependence on supplemental oxygen Euthyroid sick syndrome Thyroid disorder Chronic hepatitis C without hepatic coma Smoker COPD (chronic obstructive pulmonary disease) Presence of stent in artery H/O cocaine abuse H/O ETOH abuse DVT (deep venous thrombosis) Lumbar herniated disc HTN (hypertension) Alcohol abuse Cocaine abuse Home Medications ?Medication ?Instructions ?Recorded ?Last Taken ?Type albuterol sulfate 90 mcg/actuation 2 puff inhalation Q 4H PRN Wheezing 08/26/20 08/26/20 History aerosol inhaler aspirin 81 mg chewable tablet 81 mg PO DAILY BLOOD FLORECITA T 08/26/20 11/16/24 History atorvastatin 40 mg tablet 40 mg PO DAILY 02/07/2110/31 History furosemide 20 mg tablet 20 mg PO DAILY 10/17/2210/31 History budesonide 160 mcg-glycopyr 9 2 inh inhalation BID 09/2111/16/24 History mcg-formot 4.8 mcg/actuation HFA inhaler (Breztri Aerosphere) diclofenac sodium 1 % topical gel 2 g topical BID PRN pain 02/15/23 11/16/24 History (Voltaren Arthritis Pain) omeprazole 40 mg capsule,delayed 40 mg PO DAILY 11/16/24 History release famotidine 40 mg tablet 40 mg PO QHS 11/17/24 Unknow n History lisinopril 30 mg tablet 30 mg PO DAILY 11/17/2410/31 History methimazole 5 mg tablet 5 mg PO DAILY 11/17/24 Unkno wn History tizanidine 4 mg tablet 4 mg PO Q8 PRN muscle spasms 11/17/24 Unknown History albuterol sulfate 2.5 mg/3 mL 2.5 mg (3 mL) inhalation Q2H PRN 11/23/24 Unknown Rx (0.083 %) solution for nebulization PRN SOB &/OR WHEEZ ING #90 mL ipratropium bromide 0.02 % 0.5 mg (2.5 mL) inhalation 11/23/24 Unknown Rx solution for inhalation Q6HWA.RT #75 mL levofloxacin 750 mg tablet 750 mg PO DAILY 2 days #2 t abs 11/23/24 Unknown Rx prednisone 20 mg tablet 40 mg (2 x 20 mg) PO BREAKFA ST 4 11/23/24 Unknown Rx days #8 tabs Allergy/AdvReac Type Severity Reaction Status Date / Time No Known Allergies Allergy Verified 12/11/24 15:46 Family History Mother Hypertension Other Alcoholism Surgical History History of rotator cuff surgery H/O vascular surgery Stenosis of artery of left lower extremity Social History household members: none housing: apartment current occupational status: retired Smoking Status: Former smoker how long ago did patient quit smoking: January 2022 alcohol intake: former substance use type: former substance user Date of last use: 03/2020 and crack/cocaine caffeine: Yes Type: carbonated beverages and coffee ROS ROS ED ROS Narrative Right upper chest wall pain. Mild shortness of breath. Constitutional Constitutional ED: Denies chills or fever(s) Eyes Eyes: Denies blurry vision ENT ENT ED: Denies ear pain Cardiovascular Cardiovascular: Reports chest pain Respiratory/Chest Respiratory/Chest: Reports dyspnea; Denies cough or dyspnea on exertion Gastrointestinal Gastrointestinal: Denies abdominal pain Genitourinary Genitourinary ED: Denies dysuria or hematuria Musculoskeletal Musculoskeletal: Denies arthralgias or back pain Integumentary Denies abscess or Abrasions Neurologic Neurologic: Denies headache(s) Psychiatric Psychiatric: Denies anxiety or depression Endocrine Endocrinology: Denies cold intolerance Hematologic/Lymphatic Hematologic/Lymphatic: Reports none Allergic/Immunologic Allergic/Immunologic ED: Denies mouth swelling, tongue swelling or urticaria EXAM Physical Exam Narrative Exam Narrative: 69-year-old female sitting upright in bed. Vital signs are stable afebrile. Pulse ox 100% on room air no hypoxia. No distress. H EENT exam unremarkable. Pupils round reactive light. Moist mucous membranes. Neck nontender no JVD. No lymphadenopathy. Lungs clear to auscultation bilaterally. Heart regular rhythm rate about 100 no murmur. Chest wall left chest wall nontender right upper chest wall mild reproducible tenderness. No ecchymosis or bruising. No subcu air crepitus. No signs of trauma. Ribs nontender. Abdomen soft nontender. Moving all 4 extremities. 5 out of 5 electric serviceman strength. Equal symmetrical radial pulses. Dorsi plantarflexion intact. Calves nontender without edema or cords. Neurologically she is awake and alert no focal motor deficits. Back nontender. Const Vital Signs: 12/11/24 15:44 12/11/24 16:30 12/11/24 16:44 Temperature 97.4 F L Temperature Source Oral Pulse Rate 101 H 91 Respiratory Rate 20 H 16 Respiratory Effort Respiratory Pattern Blood Pressure 151/101 H 168/108 H Blood Pressure Mean 117 128 Pulse Ox 100 98 96 Oxygen Delivery Method Room Air Nasal Cannula Nasal Cannula Oxygen Flow Rate (L/min) 2 12/11/24 16:47 12/11/24 17:00 12/11/24 18:00 Temperature Temperature Source Pulse Rate 75 74 Respiratory Rate 17 Respiratory Effort Short of Breath Respiratory Pattern Normal Blood Pressure 154/74 H Blood Pressure Mean 100 Pulse Ox 96 Oxygen Delivery Method Nasal Cannula Oxygen Flow Rate (L/min) 2 12/11/24 19:00 Temperature Temperature Source Pulse Rate 72 Respiratory Rate 16 Respiratory Effort Respiratory Pattern Blood Pressure 148/76 H Blood Pressure Mean 100 Pulse Ox 96 Oxygen Delivery Method Oxygen Flow Rate (L/min) Positive well nourished and well developed; Negative for cachectic, contracturesor unkempt General Appearance ED: well developed and NAD; Negative for unkempt, cachectic, contractures, cyanotic, diaphoretic or pallor Nutritional Appearance: Negative for cachectic HEENT Reports moist mucous membranes Negative for trauma or tenderness Eyes PERRL and EOMs intact bilaterally General Eye ED: Negative for pale conjunctiva or scleral icterus Neck supple and no JVD General: Negative for tenderness Chest Wall inspection of chest normal; Negative for palpation of chest normal Chest Narrative: Reproducible chest wall pain right upper chest. No ecchymosis or bruising. No subcu air or crepitance. Resp normal respiratory effort and clear to auscultation bilaterally Auscultation: Negative for rales, rhonchi, wheezes or diminished lung sounds Cardio regular rate, regular rhythm, S1 normal heart sound, S2 normal heart sound and no murmurs GI normal to inspection, nondistended, normoactive bowel sounds, non-tender, non-distended and no masses Palpation: soft; Negative for tender, guarding or rebound tenderness present Back/Spine no CVA tenderness General Back: Negative for CVA tenderness Cervical Spine: Negative for cervical spine tenderness Thoracic Spine / Upper Back: Negative for thoracic spinal tenderness or paraspinal muscle tenderness Lumbar Spine / Lower Back: Negative for lumbar spinal tenderness Extremity normal to inspection General Extremety ED: Negative for edema or tenderness General Extremity: Negative for edema Neuro CN's II-XII intact bilaterally Sensorium / Orientation: alert; Negative for orientation impaired, lethargic or stuporous Psych mental status grossly normal Appearance: Negative for unkempt Attitude: No agitated Mood & Affect: Negative for depressed, anxious or tearful Skin no rashes or lesions noted, no wounds and skin turgor normal General Skin Exam: Negative for jaundice or pallor Lesions: No lesion noted Rashes: No rashes noted Trauma: Negative for abrasion Wounds: Negative for wounds noted MDM MDM MDM Narrative Medical decision making narrative: 69-year-old female with reproducible upper chest wall pain. Could be a chest wall strain. Primary care provider's office did not elevated D-dimer and sent in for further evaluation. To the chest pain we will do a cardiac workup I do not think this is cardiac. Should get a CTA of her chest to evaluate for possible pulmonary emboli. Repeat exam at around 630 and now at 7:35 PM patient doing well. We went over her test results. She will be discharged home. There is no signs of a PE. Shehas residual of her recent pneumonia but I will think its acute or needs additional treatment at this time. Patient is comfortable with the plan. History & Record Review Discussion w/independent historian: Patient Additional record(s) reviewed:: Prior inpatient record, Prior outpatient record,Prior ED visit and Prior labs Lab Data Attestation: I reviewed the patient's lab results. Lab results narrative: CBC shows a white count of 5. H&H of 13 and 39. Platelets 266. Electrolytes show a sodium 141. Gap 13. Normal BUN and creatinine of 12 and 1. Glucose 120. CTA of the chest showed no PE. Initial troponin 14. Labs: Laboratory Results - last 24 hr 12/11/24 16:37 WBC 5.6 RBC 4.51 Hgb 13.0 Hct 39.5 MCV 87.6 MCH 28.8 MCHC 32.9 RDW Std Deviation 45.6 H RDW Coeff of Oleg 14.3 Plt Count 266 MPV 9.5 Immature Gran % (Auto) 0.200 Neut % (Auto) 49.1 Lymph % (Auto) 37.9 [place] % (Auto) 7.5 Eos % (Auto) 4.8 Baso % (Auto) 0.5 Absolute Neuts (auto) 2.7 Absolute Lymphs (auto) 2.11 Nucleated RBC % 0 Sodium 141 Potassium 3.7 Chloride 105 Carbon Dioxide 23.3 Anion Gap 13 BUN 12 Creatinine 1.03 Estim Creat Clear Calc 60.72 Est GFR (MDRD) Non-Af 59 L BUN/Creatinine Ratio 11.2 Glucose 120 H Calcium 9.6 Troponin T High Sens 14 Radiography Diagnostic Testing: Clinical Impression(s) from Imaging Studies Chest CTA 12/11/24 17:15 IMPRESSION: 1. No evidence of pulmonary embolism. 2. Right middle lobe consolidative opacity with air bronchograms, concerning forpneumonia. Moderate upper lobe predominant centrilobular emphysema. 3. Multiple low-attenuation thyroid lobe nodules. Recommend nonemergent thyroidultrasound. One or more dose reduction techniques were used (e.g., Automated exposure control, adjustment of the mA and/or kV according to patient size, use of iterative reconstruction technique). Reading Location: [facility] Rhythm Strip Rhythm Strip: Sinus Rhythm Rate: 86 Ectopy: None EKG Initial EKG: Attestation: I personally reviewed and interpreted this EKG as follows: Interpretation: Sinus Rhythm and No Acute Injury Pattern Comments: Normal sinus rhythm rate 86 no acute signs of DC nor ischemia. Discharge Plan Triage Chief Complaint: Abn Labs ED Provider: Titi Jesus Dx/Rx/DC Orders Clinical Impression: Chest pain, History of deep vein thrombosis, History of COPD Instructions: ED Chest Pain, Uncertain Cause Prescriptions: No Action furosemide 20 mg tablet 20 mg PO DAILY Gary Lockett 160-9-4.8 mcg/actuation HFA aerosol inhaler 2 inh inhalation BID diclofenac sodium [Voltaren Arthritis Pain] 1 % gel 2 g topical BID PRN (Reason: pain) Rx Instructions: apply to single elbow, wrist or hand; for hand includes palm/fingers/back of hand aspirin 81 MG tablet,chewable 81 mg PO DAILY albuterol sulfate 18 GM HFA aerosol inhaler 2 puff inhalation Q4H PRN (Reason: Wheezing) Patient Comments: Inhale 2 Puffs as instructed every 4 hours as needed. atorvastatin 40 mg tablet 40 mg PO DAILY omeprazole 40 mg capsule,delayed release(DR/EC) 40 mg PO DAILY lisinopril 30 mg tablet 30 mg PO DAILY famotidine 40 mg tablet 40 mg PO QHS methimazole 5 mg tablet 5 mg PO DAILY tizanidine 4 mg tablet 4 mg PO Q8 PRN (Reason: muscle spasms) prednisone 20 mg Tablet 40 mg PO BREAKFAST 4 Days Qty: 8 0RF Rx Instructions: first dose 11/24/24 levofloxacin 750 mg Tablet 750 mg PO DAILY 2 Days Qty: 2 0RF Rx Instructions: first dose 11/24/24 ipratropium bromide 0.02 % Solution 0.5 mg inhalation Q6HWA.RT Qty: 75 0RF albuterol sulfate 2.5 mg /3 mL (0.083 %) Solution For Nebulization 2.5 mg inhalation Q2H PRN PRN (Reason: SOB &/OR WHEEZING) Qty: 90 0RF Primary Care Provider: Molly Castillo Referrals: Molly Castillo MD [Primary Care Provider] - As Needed Activity Restrictions/Additional Instructions: See CAT scan your chest look good. No blood clot. Your other tests look good tonight. Follow-up with your doctor as needed. Print Language: Niuean Disposition Disposition: Home, Self Care What to do if you have Problems For any increased pain, shortness of breath, bleeding, nausea or vomiting, chestpain, or any unexpected problems, contact your Primary Care Provider. Call [facility] ([phone]) or report to the closest Emergency Room. Call 911 if necessary. 12/11/241935 <Electronically signed by Titi Jesus MD> Cosigner Signature (if applicable): CC: Dr. Molly Castillo MD ~ Signed [facility] Work Phone: 1(989) 329-531903-14-2025 [facility]-23-2024 [facility] Medical Records Department [address] [place] [address] Discharge Summary 11/23/24 1458 MR#: [id number] Acct: [id number] Name: DIANNE ALVES Rep #: [id number] : [id number] From: Stephenie Yu MD PCP: Dr. Molly Castillo MD Status:ADM IN Location: [place] [address] Providers Date of Admission: 11/17/24 Date of Discharge: 11/23/24 Primary Care Physician: Dr. Molly Castillo MD Consultations 11/19/24 09:34 Consult: Postdoctoral Research Associate / Pulmonary Medicine Routine Consulting Provider: Intensivists/Pulmonary Med Reason for Consult: acute on chronic hypoxic resp failure EMERGENT Consult: No MD Notified: Yes Date Notified: 11/19/24 Time Notified: 09:34 Method of Notification: Verbal Reason For Visit: ACUTE ON CHRONIC RESPIRATORY FAILURE/2ND TO FLU Diagnosis Discharge Diagnosis (1) Influenza A: Status: Acute Code(s): J10.1 - Influenza due to other identified influenza virus with other respiratory manifestations (2) Acute on chronic hypoxic respiratory failure: Status: Chronic Code(s): J96.21 - Acute and chronic respiratory failure with hypoxia (3) Type 2 acute myocardial infarction: Status: Acute Code(s): I21.A1 - Myocardial infarction type 2 Plan #Acute exacerbation of COPD secondary to influenza A on top of chronic hypoxic respiratory failure on 2 L O2 # Concern for superimposed bacterial pneumonia # Syncopal episode at home-suspect secondary to dehydration, did not recur # Elevated troponin-suspect secondary to patient's underlying respiratory distress on arrival #GERD #Hypertension Medications at Discharge Home Medications albuterol sulfate 90 mcg/actuation aerosol inhaler 2 puff inhalation Q4H PRN Wheezing 08/26/20 aspirin 81 mg chewable tablet 81 mg PO DAILY BLOOD CLOT 08/26/20 atorvastatin 40 mg tablet 40 mg PO DAILY 02/07/21 furosemide 20 mg tablet 20 mg PO DAILY 10/17/22 budesonide 160 mcg-glycopyr 9 mcg-formot 4.8 mcg/actuation HFA inhaler (Breztri Aerosphere) 2 inh inhalation BID 02/08/23 diclofenac sodium 1 % topical gel (Voltaren Arthritis Pain) 2 g topical BID PRN pain 02/15/23 omeprazole 40 mg capsule,delayed release 40 mg PO DAILY 04/27/24 famotidine 40 mg tablet 40 mg PO QHS 11/17/24 lisinopril 30 mg tablet 30 mg PO DAILY 11/17/24 methimazole 5 mg tablet 5 mg PO DAILY 11/17/24 tizanidine 4 mg tablet 4 mg PO Q8 PRN muscle spasms 11/17/24 albuterol sulfate 2.5 mg/3 mL (0.083 %) solution for nebulization 2.5 mg (3 mL) inhalation Q2H PRN PRN SOB /OR WHEEZING #90 mL 11/23/24 ipratropium bromide 0.02 % solution for inhalation 0.5 mg (2.5 mL) inhalation Q6HWA.RT #75 mL 11/23/24 levofloxacin 750 mg tablet 750 mg PO DAILY 2 days #2 tabs 11/23/24 prednisone 20 mg tablet 40 mg (2 x 20 mg) PO BREAKFAST 4 days #8 tabs 11/23/24 Hospital Course Procedures Transthoracic echo Summary of Care Provided Minutes Spent on Discharge: 25 Hospital Course: DIANNE ALVES, is a 69-year-old female history of COPD on 2 L nasal cannula chronically, GERD, hep C who presented [facility] ED 09/16/2025 due to shortness of breath for several days, saw her PCP and was 84% on 2 L of O2 and brought to the ED. Patient influenza A positive but outside the window of Tamiflu and also seem to be in a COPD exacerbation, patient treated for COPD exacerbation but did continue to have poor respiratory status so she had CTA which showed no PE but some scarring, she also had IV Levaquin added for possible superimposed bacterial pneumonia. Patient ultimately did improve from respiratory status and was stable for discharge home. Of note patient the day before discharge complained that she had been having some chest pain so she had a stress test on the day of discharge which was within normal limits, also had an echocardiogram 11/18/2024 with no acute abnormalities noted. On day of discharge patient denies any chest pain, breathing is much better than on arrival. Patient feels comfortable going home and was discharged home on 2 more days of Levaquin for 1 days of prednisone as well as with DME for nebulizers Physical Exam Narrative General: Alert, oriented, no apparent distress HEENT: Atraumatic, normocephalic Eyes: Anicteric, normal conjunctiva, extraocular movements grossly intact Neck: Supple Respiratory: Normal respiratory effort, no overt wheezes or rhonchi Cardiovascular: Regular rate GI: Soft, nontender, nondistended Extremities: No edema Musculoskeletal: Moving all extremities Neuro: No overt focal neurological deficits Skin: No rashes appreciated Psych: Cooperative Weight / BMI Weight Weight: 93 kg Body Mass Index (BMI) 33.0 ABG / Lab / Microbiology Data 11/23/24 05:22 11/23/24 05:22 Laboratory: Laboratory Results - last 24 hr 11/23/24 05:22: WBC 10.5, RBC 5.25, Hgb 14.8, Hct 46.5, MCV (more content not included)...[facility]02-18-2025 Evaluation note* Diagnosis Onset Date Resolution Status Admit Date Influenza A acute October 2:58pm Acute on chronic hypoxic respiratory failure resolved October 2:58pm Type 2 acute myocardial infarction inactive November 17 025 2:58pm [facility] Work Phone: 1(249) 792-756602-10-2025 [facility] 10-27-2024 NoteHNO ID: [id number] Author: MATTHEW FRANKS PA-C Service: ? Author Type: Physician Party Planner Type: Progress Notes Filed: 10/27/2024 10:59 Note Text: Matthew Franks PA-C Department of Orthopaedics October 27, 2024 SURGERY: Reverse total shoulder arthroplasty - left SUBJECTIVE: Returns to clinic now 3 months status post the above procedure. Never went to outpatient PT. Overall pain and function are improving. Exam: Well healed anterior incision. Active forward elevation to 120, passive to 150 without difficulty. Strong deltoid contraction against resistance. Nontender along scapular spine or acromion. Imaging: I did order and interpret radiographs today, 3 views left shoulder. Reverse total shoulder arthroplasty intact without evidence of mechanical loosening or periprosthetic fracture. ASSESSMENT: Z96.612 S/P reverse total shoulder arthroplasty, left (primary encounter diagnosis) SUMMARY/PLAN: Patient is progressing home exercises. Continue to use arm for activity as tolerates. She asked about a muscle relaxant, recommend she discuss this with her PCP. No formal follow up needed, return to clinic with any concerns. Matthew Franks [facility]12-23-2024 [facility]2024 NoteHNO ID: [id number] Author: MATTHEW FRANKS PA-C Service: ? Author Type: Physician Party Planner Type: Progress Notes Filed: 09/15/2024 11:13 Note Text: Matthew Franks PA-C Department of Orthopaedics September 15, 2024 SURGERY: Reverse total shoulder arthroplasty - left SUBJECTIVE: Returns to clinic now 6 weeks status post the above procedure. Home PT just finished. She does not have outpatient PT set up. Burning pain over lateral shoulder. Pain into her neck. Exam: Well healed anterior incision. Active forward elevation to 90. Strong deltoid contraction against resistance. Nontender along scapular spine or acromion. Imaging: I did order and interpret radiographs today, 3 views left shoulder. Reverse total shoulder arthroplasty intact without evidence of mechanical loosening or periprosthetic fracture. ASSESSMENT: Z96.612 S/P reverse total shoulder arthroplasty, left (primary encounter diagnosis) SUMMARY/PLAN: Outpatient PT order provided. Final refill of Percocet given. Discussed the importance of continued PT. Continue to use arm for activity as tolerates. Recheck in 6 weeks with repeat xrays of shoulder at that time. Matthew Franks [facility]12-10-2024 [facility]2024 NoteHNO ID: [id number] Author: DOMINICK PAYTON MD Service: ? Author Type: Physician Type: Progress Notes Filed: 08/19/2024 08:50 Note Text: PAIN EVALUATION 08/18/2024 1041 Pain Level: 8 Description: Sharp;Burning;Aching Frequency: Continuous Dianne Alves comes in today for first postoperative visit following reverse total shoulder arthroplasty. Pain is significant She fell and landed against her right side, she has bruising and pain She has questions about recovery and PT EXAM: Incision intact, no drainage, normal healing Moderate shoulder edema Normal ecchymosis pattern of arm and chest left side Ecchymosis right chest as well Strong deltoid contraction with attempted elevation and rotation Significant pain limits range of motion testing today IMAGING: Radiographs of the left shoulder personally reviewed today. Date of exam today. This is a 3-view shoulder exam, including AP, outlet, and axillary views. My interpretation of the examination: Expected position of reverse total shoulder arthroplasty components without any sign of component malalignment or breakage. There is no fracture. PLAN: Discussed surgery and outlined recovery today Advance range of motion at home and with physical therapy Wean use of pain medication and transition to NSAID/Tylenol Ice/Cold water therapy as needed Sling may be worn for comfort but removed during the day for mobility Weightbearing limit 5 pounds Return in 4 weeks for repeat examination and x-rays Dominick Payton MD Shoulder AND Elbow Surgeon Department of Orthopaedic Surgery [facility]11-19-2024 NoteHNO ID: [id number] Author: DIOGENES VARELA Tech Service: ? Author Type: Senior Hr Manager Type: Progress Notes Filed: 08/19/2024 08:50 Note Text: REVIEW OF SYSTEMS: GENERAL: Well developed, well nourished. No acute distress PAIN: Negative for pain, history of chronic pain or current treatment for chronic pain conditions CARDIOVASCULAR: Negative for chest pain, leg swelling and palpations. MSK: Negative for joint swelling SKIN: Negative for lesions, rash, itching, metal sensitivity NEURO: Negative for seizure, trauma, numbness/tingling of extremities. ENDOCRINE: Negative for diabetic associated symptoms HEMATOLOGY: [place]11-15-2024 [facility]-2024 NoteHNO ID: [id number] Author: TALON BRITT MD Service: General Internal Medicine Author Type: Physician Type: Progress Notes Filed: 08/09/2024 10:09 Note Text: INPATIENT PROGRESS NOTES Patient Name: Dianne Alves DATE of SERVICE: 08/09/2024 TIME of SERVICE: 8:03 PRIMARY SERVICE: medicine INTERVAL HPI: , no shortness of breath or palpitation. No pleuritic chest pain. Pain is fairly controlled ASSESSMENT AND PLAN: Osteoarthritis, status post left shoulder arthroplasty, continue current pain medication COPD continue bronchodilators GERD currently on PPI Hypertension continue lisinopril Chronic diastolic congestive heart failure continue diuretics, clinically well compensated Suspect CKD stage II avoid nephrotoxic drugs Discharge home with [facility] Med reviewed PERTINENT ROS: All other reviewed and negative other than HPI. MEDICATIONS: Current Facility-Administered Medications Medication Dose Route Frequency atorvastatin 40 mg tab(s) (LIPITOR) 40 mg ORAL DAILY methIMAzole 5 mg tab(s) (TAPAZOLE) 5 mg ORAL DAILY lisinopril (ZESTRIL) tab(s) 30 mg 30 mg ORAL DAILY diclofenac (EC) 50 mg tab(s) (VOLTAREN) 50 mg ORAL TID furosemide 20 mg tab(s) (LASIX) 20 mg ORAL DAILY pantoprazole DR 40 mg tab(s) (PROTONIX) 40 mg ORAL DAILY ipratropium-albuterol 3 mL nebulizer solution (DUONEB) 3 mL INHALATION TID PRN albuterol HFA 90 mcg/actuation 2 Puff (PROVENTIL HFA, VENTOLIN HFA) 2 Puff INHALATION q 4 H PRN morphine 2 mg injection 2 mg INTRAVENOUS q 2 H PRN oxyCODONE-acetaminophen 5-325 mg 1-2 tablet (PERCOCET) 1-2 tablet ORAL q 4 H PRN diphenhydrAMINE 25 mg capsule (BENADRYL) 25 mg ORAL q 4 H PRN docusate sodium 100 mg cap(s) (COLACE) 100 mg ORAL BID ondansetron orally disintegrating 4 mg tab(s) (ZOFRAN ODT) 4 mg ORAL q 6 H PRN Or ondansetron (PF) 4 mg injection (ZOFRAN) 4 mg INTRAVENOUS q 6 H PRN metoclopramide HCl 10 mg injection (REGLAN) 10 mg INTRAVENOUS q 6 H PRN budesonide 0.25 mg/2 mL 0.25 mg (PULMICORT) 0.25 mg INHALATION BID And ipratropium-albuterol 3 mL nebulizer solution (DUONEB) 3 mL INHALATION QID polyethylene glycol 3350 17 g packet 17 g ORAL DAILY PHYSICAL EXAM: Blood pressure 143/79, pulse 70, temperature 36.7 ?C (98.1 ?F), temperature source Oral, resp. rate 18, height 167.6 cm (5' 6), weight 97.1 kg (214 lb 1.1 oz), SpO2 92%. Body mass index is 34.55 kg/m?. GENERAL: Alert, no distress, cooperative LUNGS: CTAB CARDIAC: Normal S1 and S2; no rubs, murmurs, or gallops ABDOMEN: Abdomen soft, non-tender, BS normal, No masses or organomegaly EXTREMITIES: no edema SIGNATURE: [facility] [id number] NoteHNO ID: [id number] Author: TALON BRITT MD Service: General Internal Medicine Author Type: Physician Type: Progress Notes Filed: 08/08/2024 12:14 Note Text: INPATIENT PROGRESS NOTES Patient Name: Dianne Alves DATE of SERVICE: 08/08/2024 TIME of SERVICE: 8:41 PRIMARY SERVICE: medicine INTERVAL HPI: Mild sore throat, no shortness of breath or palpitation. No pleuritic chest pain. Pain is not fairly controlled ASSESSMENT AND PLAN: Osteoarthritis, status post left shoulder arthroplasty, continue current pain medication COPD continue bronchodilators GERD currently on PPI Hypertension continue lisinopril Chronic diastolic congestive heart failure continue diuretics, clinically well compensated Suspect CKD stage II avoid nephrotoxic drugs Plan of care discussed with: Provider, RN, Patient. PERTINENT ROS: All other reviewed and negative other than HPI. MEDICATIONS: Current Facility-Administered Medications Medication Dose Route Frequency atorvastatin 40 mg tab(s) (LIPITOR) 40 mg ORAL DAILY methIMAzole 5 mg tab(s) (TAPAZOLE) 5 mg ORAL DAILY lisinopril (ZESTRIL) tab(s) 30 mg 30 mg ORAL DAILY diclofenac (EC) 50 mg tab(s) (VOLTAREN) 50 mg ORAL TID furosemide 20 mg tab(s) (LASIX) 20 mg ORAL DAILY pantoprazole DR 40 mg tab(s) (PROTONIX) 40 mg ORAL DAILY ipratropium-albuterol 3 mL nebulizer solution (DUONEB) 3 mL INHALATION TID PRN albuterol HFA 90 mcg/actuation 2 Puff (PROVENTIL HFA, VENTOLIN HFA) 2 Puff INHALATION q 4 H PRN morphine 2 mg injection 2 mg INTRAVENOUS q 2 H PRN oxyCODONE-acetaminophen 5-325 mg 1-2 tablet (PERCOCET) 1-2 tablet ORAL q 4 H PRN diphenhydrAMINE 25 mg capsule (BENADRYL) 25 mg ORAL q 4 H PRN docusate sodium 100 mg cap(s) (COLACE) 100 mg ORAL BID polyethylene glycol 3350 17 g packet 17 g ORAL DAILY PRN ondansetron orally disintegrating 4 mg tab(s) (ZOFRAN ODT) 4 mg ORAL q 6 H PRN Or ondansetron (PF) 4 mg injection (ZOFRAN) 4 mg INTRAVENOUS q 6 H PRN metoclopramide HCl 10 mg injection (REGLAN) 10 mg INTRAVENOUS q 6 H PRN budesonide 0.25 mg/2 mL 0.25 mg (PULMICORT) 0.25 mg INHALATION BID And ipratropium-albuterol 3 mL nebulizer solution (DUONEB) 3 mL INHALATION QID PHYSICAL EXAM: Patient Vitals for the past 24 hrs: BP Temp Temp src Pulse Resp SpO2 Height Weight 08/08/24 0911 -- -- -- 78 16 95 % -- -- 08/08/24 0900 -- -- -- 74 16 93 % -- -- 08/08/24 0816 121/64 36.6 ?C (97.9 ?F) Axillary 79 16 95 % -- -- 08/08/24 0309 140/74 36.4 ?C (97.6 ?F) Oral -- 18 96 % -- -- 08/08/24 0308 140/74 36.5 ?C (97.7 ?F) Oral 85 18 96 % -- -- 08/08/24 0058 117/60 36.6 ?C (97.9 ?F) Axillary 72 16 97 % -- -- 08/07/24 2147 119/58 36.6 ?C (97.9 ?F) Oral 89 18 96 % -- -- 08/07/248 110/50 36.5 ?C (97.7 ?F) Oral 87 18 95 % -- -- 08/07/242015 -- -- -- 86 16 -- -- -- 08/07/242009 -- -- -- 80 20 95 % -- -- 08/07/24 1758 108/57 36.8 ?C (98.2 ?F) Oral 81 18 96 % -- -- 08/07/24 1709 120/62 36.6 ?C (97.9 ?F) Oral 74 17 95 % -- -- 08/07/24 1615 143/74 -- -- 81 18 96 % -- -- 08/07/24 1600 -- -- -- -- -- -- 167.6 cm (5' 6) 97.1 kg (214 lb 1.1 oz) 08/07/24 1530 146/56 36.3 ?C (97.3 ?F) -- 70 13 97 % -- -- 08/07/24 1515 148/63 -- -- 72 11 99 % -- -- 08/07/24 1500 137/59 -- -- 66 18 97 % -- -- 08/07/24 1445 164/67 -- -- 73 19 98 % -- -- 08/07/24 1432 151/90 -- -- 81 26 99 % -- -- 08/07/24 1430 156/108 -- -- 82 30 100 % -- -- 08/07/24 1422 149/74 36.2 ?C (97.2 ?F) -- 82 22 99 % -- -- Body mass index is 34.55 kg/m?. GENERAL: Alert, no distress, cooperative NECK: No jugulovenous distention LUNGS: Lungs clear to auscultation, CARDIAC: Normal S1 and S2; no rubs, murmurs, or gallops ABDOMEN: Abdomen soft, non-tender, BS normal, No masses or organomegaly EXTREMITIES: no edema SIGNATURE: [facility]on Britt [facility] [id number] NoteHNO ID: [id number] Author: ISHAAN WALTERS MD Service: ? Author Type: Anesthesiologist Type: Anesthesia Procedure Notes Filed: 08/07/2024 16:49 Note Text: ANESTHESIOLOGY PROCEDURE NOTE Peripheral Nerve Block General Information Procedure Start Time/Medication Administration: 08/07/2024 12:02 PM Procedure End time: 08/07/2024 12:06 PM Patient location during procedure: pre-op Timeout Performed Pre-procedure: timeout performed Consent Obtained: Yes Patient identity confirmed: arm band and patient Reason for block: post-op pain management/at surgeon's request Staffing Anesthesiologist: Ishaan Walters MD Performed by: anesthesiologist Preparation Sterility Preparation: hand hygiene performed prior to procedure, sterile gloves, drapes, and procedure tray, surgical cap used, mask used, sterile drape used during line insertion, skin prep agent completely dried prior to procedure Sterility Technique Not Completely Performed Due to Extreme Emergency: No Site Prep: Chloraprep Pre-Procedure Neuro Exam Location: LUE Sensory: intact Motor: intact Procedure Details Patient Position: supine Monitoring: Pulse OX, EKG and NIBP Block Type Upper Extremity: brachial plexus Approach: interscalene Laterality: left Injection Technique: single-shot Ultrasound Guided: Yes Image in Chart: yes Local Infiltration: Yes Needle Needle Type: echogenic Needle Gauge: 20 G Needle Length: 100 mm Needle Localization: ultrasound Assessment Injection assessment: negative aspiration, no paresthesia on injection, incremental injection and local visualized surrounding nerve on ultrasound Paresthesia: immediately resolved Post-Procedure Neuro Exam Expected Regional Anesthesia: Yes Medications Administered bupivacaine (PF) 0.5 % (5 mg/mL) injection - peripheral nerve block 10 mL - 08/07/2024 12:02:00 PM bupivacaine liposome (PF) 1.3 % (13.3 mg/mL) injection (EXPAREL) - INFILTRATION 133 mg - 08/07/2024 12:02:00 PM SIGNATURE: Ishaan Walters MD PATIENT NAME: Dianne Alves DATE: August 07, 2024 TIME: 4:48 PM CSN: [id number] NoteHNO ID: [id number] Author: DAIJA LEDEZMA RT(Elham) Service: ? Author Type: Technologist Type: Progress Notes Filed: 08/07/2024 16:29 Note Text: Radiology Service Progress Note PATIENT NAME: Dianne Alves DATE OF SERVICE: August 07, 2024 TIME: 4:29 PM PATIENT IDENTITY VERIFICATION COMPLETED USING TWO (2) IDENTIFIERS: Name and Date of confirmed by patient verbally and Name and Date of confirmed by identification band. FALL SCREENING: Has the patient had 2 falls in the last year or 1 fall with injury or currently using an Ambulatory Assistive Device (Walker, Cane, Wheelchair, Crutches, etc.)? Inpatient: Screened on floor PATIENT GENDER DATA: Female. status: : No status: NO. PATIENT RELEVANT IMPLANT DATA REVIEWED: Not Applicable PATIENT PRESENTS WITH AN IMPLANTABLE OR ATTACHED COLLAR FOLDER OPERATOR: No RADIOLOGY DEPARTMENT: General X-ray: Exam(s) Completed: Upper Extremity X-Ray(s): Shoulder, AP / TRUE AP left PERIPHERAL IV DATA: Not applicable SIGNED BY: RT Aysha(R) August 07, 2024 4:29 PMUniversity [facility] [id number] NoteHNO ID: [id number] Author: ESTEVAN MUNGUIA APRN.CRNA Service: Anesthesiology Author Type: Nurse Sand Bobber Type: Anesthesia Procedure Notes Filed: 08/07/2024 13:11 Note Text: ANESTHESIOLOGY PROCEDURE NOTE Airway General Information Procedure Start Time/Medication Administration: 08/07/2024 1:01 PM Procedure End Time: 08/07/2024 1:10 PM Patient location during procedure: OR Timeout Performed Pre-procedure: timeout performed Consent Obtained: Yes Patient identity confirmed: arm band Staffing CUT OUT MARKER: Estevan Munguia APRN.CUT OUT MARKER Performed by: LEX Indications and Patient Condition Indications for airway management: anesthesia Preoxygenated: yes anesthesia circuit Patient position: sniffing Method: asleep Cricoid Pressure: No Manual In-Line Stabilization: No Difficult Mask: No Final Airway Details Final airway type: endotracheal airway Final Endotracheal Airway: ETT Cuffed: yes Successful intubation technique: direct laryngoscopy Endotracheal tube insertion site: oral Blade: Hernesto Blade size: #4 ETT size (mm): 7.0 Measured from: lips Measurement (cm): 23 Placement verified by: chest auscultation and capnometry Cormack-Lehane Classification: grade I - full view of glottis Number of attempts at approach: 1 Failed airway: no Airway not difficult SIGNATURE: Estevan Munguia APRN.CUT OUT MARKER PATIENT NAME: Dianne Alves DATE: August 07, 2024 TIME: 1:10 PM CSN: [id number] [facility] NoteHNO ID: [id number] Author: DOMINICK PAYTON MD Service: ? Author Type: Physician Type: Progress Notes Filed: 06/24/2024 10:47 Note Text: PAIN EVALUATION 06/23/2024 1116 Pain Level: 10 Pain Location: -- l shoulder Description: Aching Duration Amount of Time: -- 7 Duration Units: Months Frequency: Continuous Encounter Diagnosis ICD-10-CM 1. 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 Osteoarthritis of shoulder, unspecified laterality, unspecified osteoarthritis type M19.019 3. Morbid obesity (HCC) E66.01 Dianne Alves returns to follow up on left shoulder pain due to failed rotator cuff repair and osteoarthritis. She has had worsening pain and function. Injections are not relieving her pain. She is interested in discussing surgery. Examination of her left shoulder again demonstrates minimal ability to lift or rotator the left shoulder due to severe pain and guarding. IMAGING: I personally reviewed the MRI of the left shoulder in the office today, and I am in agreement with the radiologist's interpretation with the following modifications: None IMPRESSION: Status post rotator cuff repair with recurrent supraspinatus tendon tearing with an associated displaced bone anchor along the torn anterior supraspinatus. No muscle atrophy. Background rotator cuff tendinosis. Intact subscapularis tendon status post repair. Moderate to severe glenohumeral osteoarthritis. Status post biceps tenodesis with long head biceps tendinosis. PLAN: Dianne Alves presents today with worsening pain and weakness of the left shoulder due to failed rotator cuff repair. The current condition represents a significant risk of loss of function of the extremity due to the worsening pain and diminished use of the arm at this time. Based on my evaluation today, I do not feel that nonsurgical interventions including physical therapy, activity modification, and medical management are likely to provide this patient with an acceptable level of improvement in functional use of the arm, nor significant pain relief. After thorough review of history, examination findings, and imaging, we discussed surgical intervention today which would be reverse total shoulder arthroplasty. I described the procedure in detail as well as the expected healing time of 3-6 months and physical therapy regimen following surgery, likely for much of this time. Informed consent was discussed in detail and signed in the office today. Significant risks of surgery include general anesthesia, and those from surgery including infection, nerve injury, bleeding, procedure failure and possible need for repeat procedure. No guarantees as to the outcome of surgery were given or implied. Surgery will be scheduled for the next available date. This elective procedure carries significant risk, and this was discussed with the patient at the time of consent. Risk factors include: Obesity, COPD, revision surgery. I have therefore recommended that the procedure be performed in a hospital setting to promote the best possible outcome for this patient. Dominick Payton MD Shoulder AND Elbow Surgeon Department of Orthopaedic Surgery [facility]07-31-2024 [facility] Medical Records Department [address] [place] [address] History Physical Exam 04/29/24912 MR#: [id number] Acct: [id number] Name: DIANNE ALVES Rep #: [id number] : 1955 69 From: Stef Friend DO PCP: Dr. Molly Castillo MD Status:[facility] Location: [address] - General General Date of Admission: 04/29/24 Date of Service: 04/29/24 Chief Complaint: Screening colonoscopy HPI Narrative DIANNE ALVES, is a 69 F who presents today for screening colonoscopy. She has a past medical history of hypertension, chronic hepatitis C, COPD, hyperlipidemia, peripheral artery disease on Aspirin. She has never had a colonoscopy in the past. She does not have any abdominal pain, cramping, chest pain or shortness of breath. [facility] Medical History (Updated 04/27/24 @ 10:49 by Becca Delgado) Wears glasses Post-menopausal Gastric reflux Depression Walker as ambulation aid Arthritis Bladder disease High cholesterol Hx of fracture of wrist Back pain Syncope Loss of consciousness Shortness of breath on exertion Leg cramps History of edema History of echocardiogram History of stress test Cardiology follow-up encounter Dependence on supplemental oxygen Euthyroid sick syndrome Thyroid disorder Chronic hepatitis C without hepatic coma Smoker COPD (chronic obstructive pulmonary disease) Presence of stent in artery H/O cocaine abuse H/O ETOH abuse DVT (deep venous thrombosis) Lumbar herniated disc HTN (hypertension) Alcohol abuse Cocaine abuse Home Medications ???Medication ???Instructions ???Recorded ???Last Taken ???Type albuterol sulfate 90 mcg/actuation 2 puff IH Q4H PRN PRN Wheezing 08/26/20 08/26/20 History aerosol inhaler aspirin 81 mg chewable tablet 81 mg PO DAILY BLOOD CLOT 08/26/20 09/12/20 History lisinopril 10 mg tablet 30 mg PO DAILY bp 08/26/20 09/12/20 History tizanidine 2 mg capsule 4 mg PO Q8 PRN Muscle Spasm 08/26/20 08/26/20 History atorvastatin 40 mg tablet 40 mg PO DAILY 02/07/21 Unknown History furosemide 20 mg tablet 20 mg PO DAILY 10/17/22 Unknown History potassium chloride 10 mEq 10 meq PO DAILY 10/17/22 Unknown History capsule,extended release budesonide 160 mcg-glycopyr 9 2 inh inhalation BID 02/08/23 Unknown History mcg-formot 4.8 mcg/actuation HFA inhaler ([employer] coUrbanizephere) gabapentin 300 mg capsule 300 mg PO TID nerve pain 02/08/23 Unknown History ipratropium 0.5 mg-albuterol 3 mg 3 ml inhalation TID PRN shortness 02/08/23 Unknown History (2.5 mg base)/3 mL nebulization of breath or wheezing soln diclofenac sodium 1 % topical gel 2 g topical BID PRN pain 02/15/23 Unknown History (Voltaren Arthritis Pain) gabapentin 100 mg capsule 400 mg PO QHS 08/05/23 Unknown History acetaminophen 500 mg tablet 1,000 mg PO Q8 PRN pain 04/27/24 Unknown History omeprazole 40 mg capsule,delayed 40 mg PO DAILY 04/27/24 Unknown History release Allergy/AdvReac Type Severity Reaction Status Date / Time No Known Allergies Allergy Verified 04/27/24 10:15 Family History Mother Hypertension Other Alcoholism Surgical History (Updated 04/27/24 @ 10:35 by Becca Delgado) History of rotator cuff surgery H/O vascular surgery Stenosis of artery of left lower extremity Social History (Updated 04/14/24 @ 09:39 by Maylin Walters) household members: none housing: apartment current occupational status: retired Smoking Status: Former smoker how long ago did patient quit smoking: January 2022 alcohol intake: former substance use type: former substance user Date of last use: 03/2020 and crack/cocaine caffeine: Yes Type: carbonated beverages and coffee ROS ROS Narrative Admission Review of Systems: CONSTITUTIONAL: No weight loss, fever, chills, + weakness or fatigue. HEENT: Eyes: No visual loss, blurred vision, double vision or yellow sclerae. Ears, Nose, Throat: No hearing loss, sneezing, congestion, runny nose or sore throat. SKIN: No rash or itching, lesions, wounds. CARDIOVASCULAR: + chest pain. No palpitations, edema, orthopnea, syncopal events. RESPIRATORY: + Chronic shortness of breath. No cough or sputum, wheezing, hemoptysis. GASTROINTESTINAL: No anorexia, nausea, vomiting or diarrhea, abdominal pain, melena, BRBPR. GENITOURINARY: No dysuria, frequency, urgency or retention. NEUROLOGICAL: No headache, dizziness, syncope, paralysis, ataxia, numbness or tingling in the extremities, focal weakness, change in bowel or bladder control, seizure. MUSCULOSKELETAL: + muscle, back pain, joint pain or stiffness. HEMATOLOGIC: No anemia, bleeding or bruising. LYMPHATICS: No enlarged nodes. No history of splenectomy. PSYCHIATRIC: + history of depression or anxiety. ENDOCRINOLOGIC: No reports of sweating, cold or heat (more content not included)...[facility]06-25-2024 NoteHNO ID: [id number] Author: DOMINICK PAYTON MD Service: ? Author Type: Physician Type: Progress Notes Filed: 03/24/2024 10:56 Note Text: PAIN EVALUATION 03/24/2024 1034 Pain Level: 8 Pain Location: Shoulder-Left Description: Aching;Sharp;Shooting Frequency: Continuous Encounter Diagnosis ICD-10-CM 1. Left shoulder pain, unspecified chronicity M25.512 2. 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 Site: L shoulder joint Medications: 80 mg triamcinolone acetonide 40 mg/mL Anesthetics: 4 mL bupivacaine (PF) 0.25 % (2.5 mg/mL) Outcome: Tolerated well, no immediate complications Post-injection instructions were reviewed with the patient and the patient voiced understanding of these instructions. Dominick Payton MD Shoulder AND Elbow Surgeon Department of Orthopaedic Surgery [facility]06-25-2024 NoteHNO ID: [id number] Author: EDUARDO PEÑA LPN Service: ? Author Type: LICENSED NURSE Type: Progress Notes Filed: 03/24/2024 10:56 Note Text: Injection prepared per Dr. Payton's order and handed directly to him. Injection site: left shoulder [facility]ardo Peña [facility]03-19-2024 NoteHNO ID: [id number] Author: DOMINICK PAYTON MD Service: ? Author Type: Physician Type: Progress Notes Filed: 12/17/2023 10:50 Note Text: PAIN EVALUATION 12/17/2023 1025 Pain Level: 8 Pain Location: Shoulder-Left Description: Aching;Sore Duration Amount of Time: 6 Duration Units: Weeks Frequency: Continuous Intervention/Comfort measure: Medication Encounter Diagnosis ICD-10-CM 1. 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 Left shoulder pain, unspecified chronicity M25.512 Dianne Alves returns today requesting another injection for her left shoulder. The injection worked well at her last visit and she would like to avoid any need for surgery. We discussed that she should return in 3 months after today's injection to get on a schedule for continued medical management. Large Joint Arthro/Inj: L shoulder joint 12/17/2023 10:49 AM The procedure site was prepped in the usual sterile fashion. Site: L shoulder joint Medications: 80 mg triamcinolone acetonide 40 mg/mL Anesthetics: 4 mL bupivacaine (PF) 0.25 % (2.5 mg/mL) Outcome: Tolerated well, no immediate complications Post-injection instructions were reviewed with the patient and the patient voiced understanding of these instructions. Dominick Payton MD Shoulder AND Elbow Surgeon Department of Orthopaedic Surgery [facility]03-19-2024 NoteHNO ID: [id number] Author: ADRIÁN TAMAYO Tech Service: ? Author Type: Senior Hr Manager Type: Progress Notes Filed: 12/17/2023 10:50 Note Text: REVIEW OF SYSTEMS: GENERAL: Well developed, well nourished. No acute distress PAIN: left shoulder pain CARDIOVASCULAR: Negative for chest pain, leg swelling and palpations. MSK: Negative for joint swelling SKIN: Negative for lesions, rash, itching, metal sensitivity NEURO: Negative for seizure, trauma, numbness/tingling of extremities. ENDOCRINE: Negative for diabetic associated symptoms HEMATOLOGY: Negative for excessive bleeding, clots, bleeding disorders.[facility]02-11-2024 Discharge summary Author Isidro Dominguez [facility] November 10, 2023 11:08pm Note Date/Time November 10, 2023 6:57pm [facility] Medical Records Department [address] [place] [address] Emergency Department Summary 11/10/23 MR#: [id number] Acct: [id number] Name: DIANNE ALVES Rep #:[id number] : 1955 68 From: Isidro Dominguez MD PCP: Dr. Molly Castillo MD Status:REG E R Location: ED HPI History of Present Illness Chief Complaint: Lower Extremity Injury Informant: patient Narrative Narrative: Patient accidentally slipped and hit the left lateral 3 toes into the leg of a couch at home. No other injury. She did not fall to the ground. Nothing was else was hurt. This happened about 5 or 6 hours ago. [facility] Medical History Alcohol abuse Chronic hepatitis C without hepatic coma Cocaine abuse COPD (chronic obstructive pulmonary disease) DVT (deep venous thrombosis) Euthyroid sick syndrome H/O cocaine abuse H/O ETOH abuse HTN (hypertension) Lumbar herniated disc Pinched nerve in neck Presence of stent in artery Smoker Thyroid disorder Home Medications albuterol sulfate 90 mcg/actuation aerosol inhaler 2 puff IH Q4H PRN PRN Wheezing 08/26/20 [History Last Taken 08/26/20] aspirin 81 mg chewable tablet 81 mg PO DAILY BLOOD CLOT 08/26/20 [History Last Taken 09/12/20] lisinopril 10 mg tablet 20 mg PO DAILY bp 08/26/20 [History Last Taken 09/12/20] tizanidine 2 mg capsule 2 mg PO Q8 PRN Muscle Spasm 08/26/20 [History Last Taken 08/26/20] atorvastatin 40 mg tablet 40 mg PO DAILY 02/07/21 [History Last Taken Unknown] furosemide 20 mg tablet 20 mg PO DAILY 10/17/22 [History Last Taken Unknown] potassium chloride 10 mEq capsule,extended release 10 meq PO DAILY 10/17/22 [History Last Taken Unknown] budesonide 160 mcg-glycopyr 9 mcg-formot 4.8 mcg/actuation HFA inhaler ([employer] Aerosphere) 2 inh inhalation BID 02/08/23 [History Last Taken Unknown] gabapentin 300 mg capsule 300 mg PO TID nerve pain 02/08/23 [History Last Taken Unknown] ipratropium 0.5 mg-albuterol 3 mg (2.5 mg base)/3 mL nebulization soln 3 ml inhalation TID 02/08/23 [History Last Taken Unknown] meloxicam 15 mg tablet 15 mg PO DAILY 02/08/23 [History Last Taken Unknown] oxybutynin chloride 10 mg tablet,extended release 24 hr 10 mg PO DAILY 02/08/23 [History Last Taken Unknown] diclofenac sodium 1 % topical gel (Voltaren Arthritis Pain) 2 g topical BID PRN pain 02/15/23 [History Last Taken Unknown] gabapentin 100 mg capsule 400 mg PO QHS 08/05/23 [History Last Taken Unknown] omeprazole 40 mg capsule,delayed release 40 mg PO DAILY 08/05/23 [History Last Taken Unknown] acetaminophen 500 mg tablet 1,000 mg (2 x 500 mg) PO Q8 14 days #84 tabs 08/12/23 [Rx Last Taken Unknown] enoxaparin 40 mg/0.4 mL subcutaneous syringe (Lovenox) 40 mg (0.4 mL) subcut DAILY 14 days #5.6 mL 08/12/23 [Rx Last Taken Unknown] oxycodone 5 mg tablet 10 mg (2 x 5 mg) PO Q4H PRN PRN Pain Score 6-10 7 days #42tabs 08/12/23 [Rx Last Taken Unknown] polyethylene glycol 3350 17 gram oral powder packet 17 g PO DAILY 30 days #30 ea08/12/23 [Rx Last Taken Unknown] sennosides 8.6 mg-docusate sodium 50 mg tablet (Stool Softener-Stimulant Laxative) 2 tab PO BID 30 days #120 tabs 08/12/23 [Rx Last Taken Unknown] Allergy/AdvReac Type Severity Reaction Status Date / Time No Known Allergies Allergy Verified 08/05/23 02:19 Family History Mother Hypertension Other Alcoholism Surgical History H/O vascular surgery History of rotator cuff surgery Stenosis of artery of left lower extremity Social History household members: none Smoking Status: Former smoker how long ago did patient quit smoking: January 2022 alcohol intake: former substance use type: former substance user Date of last use: 03/2020 and crack/cocaine caffeine: Yes Type: carbonated beverages and coffee ROS ROS ED Constitutional Constitutional ED: Denies chills or fever(s) ENT ENT ED: Denies sore throat Cardiovascular Cardiovascular: Denies chest pain Respiratory/Chest Respiratory/Chest: Denies cough Gastrointestinal Gastrointestinal: Denies nausea or vomiting Musculoskeletal Musculoskeletal: Reports arthralgias Integumentary Denies rash Hematologic/Lymphatic Hematologic/Lymphatic: Denies easy bleeding or easy bruising Allergic/Immunologic Allergic/Immunologic ED: Denies urticaria EXAM Physical Exam Narrative Exam Narrative: General: Patient awake alert no acute distress laying comfortably on the bed. HEENT shows no trauma. Cardiorespiratory shows easy unlabored breathing. Abdomen is prominent but nontender. Extremities left foot had sock and shoe removed. There may be just a little bitof redness to the lateral 3 toes. But is not warm. It looks more contused. I see no deformity. There is mild tenderness. No tenderness in the midfoot ankleor higher up the leg. Const Vital Signs: 11/10/23 18:41 Temperature 97.3 F L Temperature Source Temporal Pulse Rate 92 Respiratory Rate 16 Blood Pressure 182/94 H Blood Pressure Mean 123 Pulse Ox 99 Oxygen Delivery Method Room Air MDM MDM MDM Narrative Medical decision making narrative: My independent interpretation of the patient's three-view x-ray of the left footshows a fracture of the distal portion of the proximal phalanx of the fourth ray. This is seen in 1 view but not well and the others but she is tender thereI think is likely real. But this should heal with kasandra taping and rest. I was going to prescribe pain meds for her. But when I do an online prescribingreport she has gotten regular pain meds from a single prescriber for quite some time. She got 7 days of pain meds just about 5 or 6 days ago. I will give her Percocet here which she has had before but I cannot write for further narcotics at home. Radiography Diagnostic Testing: Clinical Impression(s) from Imaging Studies Foot X-Ray 11/10/23 19:10 IMPRESSION: Fracture through the distal portion of the fourth proximal phalanx. Electronically Signed: Jb Lei MD at 19:33 EST , Discharge Plan Triage Chief Complaint: Lower Extremity Injury ED Provider: Isidro Dominguez Dx/Rx/DC Orders Clinical Impression: Closed fracture of toe Instructions: ED Fracture, Toe, Closed Prescriptions: No Action furosemide 20 mg tablet 20 mg PO DAILY potassium chloride 10 mEq capsule, extended release 10 meq PO DAILY [employer]tri Aerosphere 160-9-4.8 mcg/actuation HFA aerosol inhaler 2 inh inhalation BID ipratropium-albuterol 0.5 mg-3 mg(2.5 mg base)/3 mL solution for nebulization 3 ml inhalation TID meloxicam 15 mg tablet 15 mg PO DAILY oxybutynin chloride 10 mg tablet extended release 24hr 10 mg PO DAILY diclofenac sodium [Voltaren Arthritis Pain] 1 % gel 2 g topical BID PRN (Reason: pain) Rx Instructions: apply to single elbow, wrist or hand; for hand includes palm/fingers/back of hand lisinopril 10 MG tablet 20 mg PO DAILY aspirin 81 MG tablet,chewable 81 mg PO DAILY Patient Comments: Take 1 tablet by mouth once daily. albuterol sulfate 18 GM HFA aerosol inhaler 2 puff IH Q4H PRN PRN (Reason: Wheezing) Patient Comments: Inhale 2 Puffs as instructed every 4 hours as needed. tizanidine 2 MG capsule 2 mg PO Q8 PRN (Reason: Muscle Spasm) gabapentin 300 mg capsule 300 mg PO TID atorvastatin 40 mg tablet 40 mg PO DAILY Patient Comments: Take 1 tablet by mouth once daily. gabapentin 100 mg capsule 400 mg PO QHS Patient Comments: TAKE 1 CAPSULE BY MOUTH DAILY AT BEDTIME FOR 90 DAYS. TAKE IN ADDITION TO 300MG DOSE TO EQUAL 400MG BEFORE BED omeprazole 40 mg capsule,delayed release(DR/EC) 40 mg PO DAILY Patient Comments: Take 1 capsule by mouth once daily. polyethylene glycol 3350 17 gram Powder In Packet 17 g PO DAILY 30 Days Qty: 30 0RF sennosides-docusate sodium [Stool Softener-Stimulant Laxat] 8.6-50 mg Tablet 2 tab PO BID 30 Days Qty: 120 0RF acetaminophen 500 mg Tablet 1,000 mg PO Q8 14 Days Qty: 84 0RF oxycodone 5 mg Tablet 10 mg PO Q4H PRN PRN (Reason: Pain Score 6-10) 7 Days Qty: 42 0RF enoxaparin [Lovenox] 40 mg/0.4 mL syringe 40 mg subcut DAILY 14 Days Qty: 5.6 0RF Primary Care Provider: Molly Castillo Referrals: Molly Castillo MD [Primary Care Provider] - 1 Week Disposition Disposition: Home, Self Care What to do if you have Problems For any increased pain, shortness of breath, bleeding, nausea or vomiting, chestpain, or any unexpected problems, contact your Primary Care Provider. Call [facility] ([phone]) or report to the closest Emergency Room. Call 911 if necessary. 11/10/23 2300 <Electronically signed by Isidro Dominguez MD> Cosigner Signature (if applicable): CC: Dr. Molly Castillo MD ~ Signed [facility] Work Phone: [phone] 661-941702-06-2024 NoteHNO ID: [id number] Author: EDUARDO PEÑA LPN Service: ? Author Type: LICENSED NURSE Type: Progress Notes Filed: 11/13/2023 13:13 Note Text: Injection prepared per Dr. Payton's order and handed directly to him. Injection site: left shoulder Eduardo Peña [facility]02-06-2024 NoteHNO ID: [id number] Author: DOMINICK PAYTON MD Service: ? Author [...] AND Elbow Surgeon Department of Orthopaedic Surgery [facility]02-06-2024 NoteHNO ID: [id number] Author: DIOGENES VARELA Tech Service: ? Author Type: Senior Hr Manager Type: Progress Notes Filed: 11/13/2023 13:13 Note Text: REVIEW OF SYSTEMS: GENERAL: Well developed, well nourished. No acute distress PAIN: Negative for pain, history of chronic pain or current treatment for chronic pain conditions CARDIOVASCULAR: Negative for chest pain, leg swelling and palpations. MSK: Negative for joint swelling SKIN: Rash yes NEURO: Numbness/tingling of extremties ENDOCRINE: Negative for diabetic associated symptoms HEMATOLOGY: [facility] [place]11-13-2023 Discharge summary Author Adrián [facility] August 12, 2023 1:42pm Note Date/Time August 12, 2023 1:33pm [facility] Medical Records Department [address] [place] [address] Transfer to [facility] MR#: [id number] Acct: [id number] Name: DIANNE ALVES Rep #:[id number] : 1955 68 From: Adrián nichole DO PCP: Dr. Aquiles Jones MD Status:ADM I NO Certification of patient admission REQUIRED AT TIME OF ADMISSION. I CERTIFY THAT POST-HOSPITAL [facility] SERVICES ARE REQUIRED TO BE GIVEN ON AN IN-PATIENT BASIS BECAUSE OF THE ABOVE NAMED PATIENT'S NEED FOR CORRECTION CARE ON A CONTINUING BASIS FOR THE CONDITION(S) FOR WHICH HE/SHE WAS RECEIVING IN-PATIENT HOSPITAL SERVICES PRIOR TO HIS/HER TRANSFER TO THE [facility]. 08/12/23 1342<Electronically signed by Adrián Burris DO> Diet Diet Order/Speech Therapy: 08/07/23 08:22 Diet: Cardiac - Heart Healthy Is pt able to select menu?: Yes Routine Orders/Code Status Code Status: Full Code Wound(s) Left Shoulder: Wound Type: Surgical Incision Rt femoral: Wound Type: Puncture Therapies Weight Bearing: Full weight bearing Problem/Diagnosis (1) Chest pain: Status: Acute Code(s): R07.9 - Chest pain, unspecified (2) Difficult intravenous access: Status: Acute Code(s): Z78.9 - Other specified health status Plan Patient presented to [facility] on 08/05/2023 from [facility] with chest pain. Hospital course as noted below. Chest pain: Presented with chest pain and mild hypoxia. Hypoxia resolved fairlyquickly. Troponins were only mildly elevated. Stress test 08/06 was negative. Echo showed an EF of 70%, was otherwise normal. CTA was unable to be performed due to difficult IV access as noted below so VQ scan was done; VQ scan showed very low priority for PE. Suspected that chest pain is most likely musculoskeletal versus possibly due to acid reflux. Continued home PPI, symptommanagement as needed on discharge. Difficult IV access: Patient was unable to have a peripheral IV placed hospitalized. This was partially due to the fact that her left arm was not amenable to IV placement due to recent left rotator cuff surgery requiring a sling. A PICC line was attempted but was also unsuccessful. Patient ultimatelyhad to have a right femoral triple- lumen catheter placed during admission. Femoral line was then removed prior to discharge. Patient did have some bleeding post line removal, required stitches at right femoral artery site. Ultimately, would recommend that patient have a Mediport placed for future hospitalizations if IV access is needed. Recent left rotator cuff repair, debility: Patient came to the ED from [facility]. PT/OT/case management followed during this hospitalization. Patient was stable for discharge back to [facility] on 08/12. Patient notably did require oxycodone somewhat frequently during his admission for pain control. Discharged on Tylenol 1000 mgevery 8 hours scheduled plus oxycodone 10 mg every 4 hours as needed for pain control. Discharge diagnoses: ? Chest pain, improved ? Difficult IV access ? Recent left rotator cuff repair with pain ? Debility ? Chronic COPD ? Hyperkalemia, improved ? PAD ? Hypertension ? Hyperlipidemia ? Morbid obesity ? Anxiety/depression Total clinical time spent by myself addressing the patient's medical issues, reviewing all the data, and collaborating with patient's care team: 35 minutes. Allergies/Procedures Done in Hospital Allergies No Known Allergies Allergy (Verified 08/05/23 02:19) Procedures: Central line placement Type of Care/Length of Stay Estimated LOS: Convalescent Care Less Than 30 days Type of Care Needed: Skilled Rehab Potential: Fair Prognosis: Fair Additional Orders/Day of Discharge H&P will serve as current which was dated: 08/05/23 Day of Discharge: 08/12/23 Follow Up Care Please Follow Up With: Aquiles Jones MD When: As needed Discharge Plan Admission Admit Date/Time: 08/05/23 05:27 Attending Provider: Adrián Burris Primary Care Provider: Aquiles Jones Consulting Providers: Miguelina Castanon; Woodrow Cardenas; Julio Duong Instructions Additional Instructions / Restrictions: Please take medications as prescribed below on discharge. Follow-up with your primary care doctor after your stay at the rehab facility as needed. Discharge Orders/Prescriptions Prescriptions: New polyethylene glycol 3350 17 gram Powder In Packet 17 g PO DAILY 30 Days Qty: 30 0RF sennosides-docusate sodium [Stool Softener-Stimulant Laxat] 8.6-50 mg Tablet 2 tab PO BID 30 Days Qty: 120 0RF acetaminophen 500 mg Tablet 1,000 mg PO Q8 14 Days Qty: 84 0RF oxycodone 5 mg Tablet 10 mg PO Q4H PRN PRN (Reason: Pain Score 6-10) 7 Days Qty: 42 0RF enoxaparin 120 mg/0.8 mL Syringe 110 mg subcut BID 30 Days Qty: 43.998 0RF Continued furosemide 20 mg tablet 20 mg PO DAILY potassium chloride 10 mEq capsule, extended release 10 meq PO DAILY Breztri Aerosphere 160-9-4.8 mcg/actuation HFA aerosol inhaler 2 inh inhalation BID ipratropium-albuterol 0.5 mg-3 mg(2.5 mg base)/3 mL solution for nebulization 3 ml inhalation TID meloxicam 15 mg tablet 15 mg PO DAILY oxybutynin chloride 10 mg tablet extended release 24hr 10 mg PO DAILY diclofenac sodium [Voltaren Arthritis Pain] 1 % gel 2 g topical BID PRN (Reason: pain) Rx Instructions: apply to single elbow, wrist or hand; for hand includes palm/fingers/back of hand lisinopril 10 MG tablet 20 mg PO DAILY aspirin 81 MG tablet,chewable 81 mg PO DAILY Patient Comments: Take 1 tablet by mouth once daily. albuterol sulfate 18 GM HFA aerosol inhaler 2 puff IH Q4H PRN PRN (Reason: Wheezing) Patient Comments: Inhale 2 Puffs as instructed every 4 hours as needed. tizanidine 2 MG capsule 2 mg PO Q8 PRN (Reason: Muscle Spasm) gabapentin 300 mg capsule 300 mg PO TID atorvastatin 40 mg tablet 40 mg PO DAILY Patient Comments: Take 1 tablet by mouth once daily. gabapentin 100 mg capsule 400 mg PO QHS Patient Comments: TAKE 1 CAPSULE BY MOUTH DAILY AT BEDTIME FOR 90 DAYS. TAKE IN ADDITION TO 300MG DOSE TO EQUAL 400MG BEFORE BED omeprazole 40 mg capsule,delayed release(DR/EC) 40 mg PO DAILY Patient Comments: Take 1 capsule by mouth once daily. Discontinued etodolac 400 mg tablet 400 mg PO BID oxycodone-acetaminophen [Percocet] 5-325 mg tablet 1 tab PO Q6H PRN (Reason: pain) 3 Days Qty: 14 0RF oxycodone-acetaminophen [Percocet] 5-325 mg tablet 1 tab PO Q6H 3 Days Qty: 12 0RF prednisone 20 mg tablet 60 mg PO DAILY Qty: 15 0RF Referrals / Follow Up: Aquiles Jones MD [Primary Care Provider] - ELI BRAGG NP-C [Non-Staff] - Disposition Disposition (needs filled in before D/C Order can be placed): [facility] Charges/Coding Visit Charges Inpatient E&M: 29070 Disch Hosp >30min (1) Chest pain Qualifiers: Chest pain type: unspecified Qualified Code(s): R07.9 - Chest pain, unspecified 08/12/23 1342 <Electronically signed by Adrián Burris DO> Cosigner Signature (if applicable): CC: Dr. Miguelina Castanon MD; Dr. Woodrow Cardenas DO; Dr. Aquiles Jones MD; Dr. Julio Duong MD ~ [facility] Work Phone: 1(347) 179-387911-13-2023 Consult note Author Melvin West [facility] August 12, 2023 1:37pm Note Date/Time August 12, 2023 1:37pm [facility] Medical Records Department [address] [place] [address] Counseling Note - Pharmacy 08/12/23 1337 MR#: [id number] Acct: [id number] Name: DIANNE ALVES Rep #:[id number] : 1955 68 From: Melvin West PCP: Dr. Aquiles Jones MD Status:ADM I NO Y Location: [place] [address] Pharmacy [place] Med Reconciliation Pharmacy Service has performed discharge medication reconciliation for this patient. The patient's discharge medication list was reviewed for discrepancies and discrepancies were resolved. Medications at Discharge Home Medications albuterol sulfate 90 mcg/actuation aerosol inhaler 2 puff IH Q4H PRN PRN Wheezing 08/26/20 aspirin 81 mg chewable tablet 81 mg PO DAILY BLOOD CLOT 08/26/20 lisinopril 10 mg tablet 20 mg PO DAILY bp 08/26/20 tizanidine 2 mg capsule 2 mg PO Q8 PRN Muscle Spasm 08/26/20 atorvastatin 40 mg tablet 40 mg PO DAILY 02/07/21 furosemide 20 mg tablet 20 mg PO DAILY 10/17/22 potassium chloride 10 mEq capsule,extended release 10 meq PO DAILY 10/17/22 budesonide 160 mcg-glycopyr 9 mcg-formot 4.8 mcg/actuation HFA inhaler (Breztri Aerosphere) 2 inh inhalation BID 02/08/23 gabapentin 300 mg capsule 300 mg PO TID nerve pain 02/08/23 ipratropium 0.5 mg-albuterol 3 mg (2.5 mg base)/3 mL nebulization soln 3 ml inhalation TID 02/08/23 meloxicam 15 mg tablet 15 mg PO DAILY 02/08/23 oxybutynin chloride 10 mg tablet,extended release 24 hr 10 mg PO DAILY 02/08/23 diclofenac sodium 1 % topical gel (Voltaren Arthritis Pain) 2 g topical BID PRN pain 02/15/23 gabapentin 100 mg capsule 400 mg PO QHS 08/05/23 omeprazole 40 mg capsule,delayed release 40 mg PO DAILY 08/05/23 acetaminophen 500 mg tablet 1,000 mg (2 x 500 mg) PO Q8 14 days #84 tabs 08/12/23 enoxaparin 120 mg/0.8 mL subcutaneous syringe 110 mg (0.7333 mL) subcut BID 30 days #43.998 mL 08/12/23 oxycodone 5 mg tablet 10 mg (2 x 5 mg) PO Q4H PRN PRN Pain Score 6-10 7 days #42tabs 08/12/23 polyethylene glycol 3350 17 gram oral powder packet 17 g PO DAILY 30 days #30 ea08/12/23 sennosides 8.6 mg-docusate sodium 50 mg tablet (Stool Softener-Stimulant Laxative) 2 tab PO BID 30 days #120 tabs 08/12/23 08/12/23 1337 <Electronically signed by Melvin broussard> Date _ Melvin West Cosigner Signature (if applicable): Date CC: ~ Signed [facility] Work Phone: 1(471) 986-891411-13-2023 Discharge summary Author Adrián Burris [facility] August 12, 2023 1:28pm Note Date/Time August 12, 2023 1:22pm [facility] Medical Records Department [address] [place] [address] Instructions for Home/Discharge Instructions 08/12/23 1321 MR#: [id number] Acct: [id number] Name: DIANNE ALVES Rep #:[id number] : 1955 68 From: Adrián Mendez prince DONOVAN PCP: Dr. Aquiles Jones MD Status:ADM I NO Discharge Instructions Diet Discharge Diet: Carb Control Diet Activity Discharge Activity: Return to Normal Activity Weight Bearing Status: Full weight bearing Follow Up Care Please Follow Up With: Aquiles Jones MD When: As needed Test Results: Test results from this visit will be discussed in further detail at your follow- up appointment, if applicable. Pending Tests Upon Discharge: None Discharge Plan Admission Admit Date/Time: 08/05/23 05:27 Attending Provider: Adrián Burris Primary Care Provider: Aquiles Jones Consulting Providers: Miguelina Castanon; Woodrow Cardenas; Julio Duong Instructions Additional Instructions / Restrictions: Please take medications as prescribed below on discharge. Follow-up with your primary care doctor after your stay at the rehab facility as needed. Discharge Orders/Prescriptions Prescriptions: New polyethylene glycol 3350 17 gram Powder In Packet 17 g PO DAILY 30 Days Qty: 30 0RF sennosides-docusate sodium [Stool Softener-Stimulant Laxat] 8.6-50 mg Tablet 2 tab PO BID 30 Days Qty: 120 0RF acetaminophen 500 mg Tablet 1,000 mg PO Q8 14 Days Qty: 84 0RF oxycodone 5 mg Tablet 10 mg PO Q4H PRN PRN (Reason: Pain Score 6-10) 7 Days Qty: 42 0RF enoxaparin 120 mg/0.8 mL Syringe 110 mg subcut BID 30 Days Qty: 43.998 0RF Continued furosemide 20 mg tablet 20 mg PO DAILY potassium chloride 10 mEq capsule, extended release 10 meq PO DAILY Breztri Aerosphere 160-9-4.8 mcg/actuation HFA aerosol inhaler 2 inh inhalation BID ipratropium-albuterol 0.5 mg-3 mg(2.5 mg base)/3 mL solution for nebulization 3 ml inhalation TID meloxicam 15 mg tablet 15 mg PO DAILY oxybutynin chloride 10 mg tablet extended release 24hr 10 mg PO DAILY diclofenac sodium [Voltaren Arthritis Pain] 1 % gel 2 g topical BID PRN (Reason: pain) Rx Instructions: apply to single elbow, wrist or hand; for hand includes palm/fingers/back of hand lisinopril 10 MG tablet 20 mg PO DAILY aspirin 81 MG tablet,chewable 81 mg PO DAILY Patient Comments: Take 1 tablet by mouth once daily. albuterol sulfate 18 GM HFA aerosol inhaler 2 puff IH Q4H PRN PRN (Reason: Wheezing) Patient Comments: Inhale 2 Puffs as instructed every 4 hours as needed. tizanidine 2 MG capsule 2 mg PO Q8 PRN (Reason: Muscle Spasm) gabapentin 300 mg capsule 300 mg PO TID atorvastatin 40 mg tablet 40 mg PO DAILY Patient Comments: Take 1 tablet by mouth once daily. gabapentin 100 mg capsule 400 mg PO QHS Patient Comments: TAKE 1 CAPSULE BY MOUTH DAILY AT BEDTIME FOR 90 DAYS. TAKE IN ADDITION TO 300MG DOSE TO EQUAL 400MG BEFORE BED omeprazole 40 mg capsule,delayed release(DR/EC) 40 mg PO DAILY Patient Comments: Take 1 capsule by mouth once daily. Discontinued etodolac 400 mg tablet 400 mg PO BID oxycodone-acetaminophen [Percocet] 5-325 mg tablet 1 tab PO Q6H PRN (Reason: pain) 3 Days Qty: 14 0RF oxycodone-acetaminophen [Percocet] 5-325 mg tablet 1 tab PO Q6H 3 Days Qty: 12 0RF prednisone 20 mg tablet 60 mg PO DAILY Qty: 15 0RF Referrals / Follow Up: Aquiles Jones MD [Primary Care Provider] - ELI BRAGG NP-Taryn [Non-Staff] - Disposition Disposition (needs filled in before D/C Order can be placed): [facility] Facility 08/12/23 1328<Electronically signed by Adrián Burris DO>Adrián Burris DO CC: Dr. Miguelina Castanon MD; Dr. Woodrow Cardenas DO; Dr. Aquiles Jones MD; Dr. Julio Duong MD ~ Signed [facility] Work Phone: 1(415) 320-996311-12-2023 Progress note Author Julio Duong [facility] August 11, 2023 3:12pm Note Date/Time August 11, 2023 3:11pm [facility] Medical Records Department [address] [place] [address] Progress Note - Hospitalist 08/11/23 1508 MR#: [id number] Acct: [id number] Name: DIANNE ALVES Rep #:[id number] : 1955 68 From: Julio Wilkins PCP: Dr. Aquiles Jones MD Status:ADM I NO Location: [place] [address]- Reason for Visit Reason for Visit: Diagnoses Chest pain, unspecified (08/05/23) Other specified health status (08/05/23) Objective Data Objective Data Vital Signs: Vital Signs Temp Pulse Resp BP Pulse Ox O2 Del Method O2 Flow Rate 97.1 F L 85 16 122/49 H 96 Nasal Cannula 2 08/11/23 09:05 08/11/23 13:59 08/11/23 13:59 08/11/23 09:05 08/11/23 13:59 08/11/23 14:17 08/11/23 14:17 Oxygen Flow Rate (L/min) 2 Oxygen Delivery Method Nasal Cannula Weight: 187 lb 2.759 oz Body Mass Index (BMI) 30.2 Intake & Output: Intake and Output for Last 24 Hours 08/09/23 08/10/23 08/11/23 23:59 23:59 23:59 Intake Total 1100 / 1100 1300 / 1300 690 / 690 Output Total 700 / 700 950 / 950 900 / 900 Balance 400 / 400 350 / 350 -210 / -210 Lab / Micro Data 08/11/23 05:51 08/11/23 12:40 Labs: Laboratory Results - last 24 hr 08/11/23 05:51: WBC 5.7, RBC 4.50, Hgb 12.9, Hct 41.3, MCV 91.8, MCH 28.7, MCHC 31.2 L, RDW Std Deviation 50.7 H, RDW Coeff of Oleg 15.0 H, Plt Count 268, MPV 10.2, Immature Gran % (Auto) 0.200, Neut % (Auto) 40.1 L, Lymph % (Auto) 44.2 H,[place] % (Auto) 8.1, Eos % (Auto) 6.7 H, Baso % (Auto) 0.7, Absolute Neuts (auto) 2.3, Absolute Lymphs (auto) 2.50, Nucleated RBC % 0, Sodium 134 L, Potassium 6.2 H*, Chloride 103, Carbon Dioxide 29.0, Anion Gap 2 L, BUN 43 H, Creatinine 1.43 H, Estim Creat Clear Calc 35.74, Est GFR (MDRD) Af Amer 47 L, Est GFR (MDRD) Non-Af 39 L, BUN/Creatinine Ratio 30.1 H, Glucose 95, Calcium 8.9 08/11/23 12:40: Potassium 5.8 H Physical Exam Narrative Seen and examined. She has left shoulder sling and swath. Patient gets intermittently aggressive and inappropriate with change in her voice. No active bleeding or hematoma around the right groin around midline/femoral line which was removed on 08/08/2023. Encouraged to put shoulder sling to help her with the neck spasm pain. Physical exam General: Alert, Oriented x3, Cooperative, overweight BMI 30.1 kg/m? HEENT: Atraumatic, PERRLA, EOMI, Normocephalic Oral: No Gingival or Mucosal Lesions/ Ulcerations Neck: Supple, No JVD, Negative Carotid Bruits Lungs: Air entry diminished in bilateral lung bases. No crepitation/rhonchi Cardiovascular: Regular rate, Regular Rhythm, Normal S1, Normal S2, No murmurs Abdomen: Bowel Sounds Present, Soft, Non Tender, Non-Distended : No renal angle tenderness. No suprapubic tenderness. Extremities: Present dressing on right femoral triangle. No edema, Capillary Refill Less than 3 Seconds Skin: No active bleeding or hematoma at right femoral triangle. Mild tenderness. No rashes, No breakdown Musculoskeletal: No Tenderness to Palpation of Joints or Extremities. ROM restricted at knees and hip joints. Restricted left shoulder movement due to shoulder surgery. Steri-Strip dressing at left shoulder. Neurological: Cranial nerves II-XII grossly intact, DTR 2+/4. No acute focal neurological deficit. Psych/Mental Status: Flat affect. Assessment & Plan Assessment/Plan (1) Chest pain: QUALIFIERS: Chest pain type: unspecified Qualified Code(s): R07.9- Chest pain, unspecified PLAN: Chest Pain with indeterminate cardiac enzyme with Hypoxia. Hypoxia since resolved. Troponins only mildly elevated peaked at 73 and trended down since. Echocardiogram shows an EF of 70%. Stress test performed on the was negative. VQ scan has been ordered but unable to be performed until the so as the rest of the contrast can be washed out. Unfortunately, given the factthat patient is a extremely difficult IV access and needle access would benefit to obtain was a right femoral triple-lumen catheter. ' Radiologist but could not do CTA because of femoral line therefore VQ scan ordered. VQ scan reported very low priority for for PE. Triple-lumen catheter discontinued. PT and OT ordered. 08/09 chest pain seems most likely musculoskeletal. She is physically deconditioned advised aggressive PT and OT which she does not follow. 08/10: Patient encouraged for PT and OT after 3 to 4 hours bedrest after she hadright groin bleeding. There is no active bleeding. Continue present bandage. 08/11: PT OT. Pre-CERT pending. Right groin no hematoma. Encourage to walk under supervision of PT. Ready for discharge. (2) Difficult intravenous access: PLAN: Patient has been unable to have a peripheral IV placed. Partly is due to the fact that her left arm is not amenable to that given her recent rotator cuffsurgery and requiring a sling. A PICC line was attempted but was unsuccessful. For future hospitalizations recommended to have a Mediport as patient is difficult IV access She complains of severe pain and spasm of neck for which Zanaflex increased to 4mg every 8 on Tylenol scheduled 1 g every 8 hourly along with oxycodone. PLAN: Plan Chronic conditions: * Chronic COPD: Will continue oxygen supplementation with wean as tolerated to room air, new ATC DuoNeb therapy as well as temporally hold Breztri treatment and transition to ATC budesonide therapy, PRN albuterol, HOB, IS parameters. * Hypokalemia: Potassium 5.2, minimally elevated, continue to just hydration, repeat BMP in AM. * History of polysubstance abuse with chronic hepatitis C: Reportedly clean [facility] e 03/2020 with history of crack and cocaine usage, urine drug screen pending, unclear exact treatment history for hepatitis C. * History of alcohol abuse: Reportedly sober, encourage continued sobriety. * PAD: History of lower extremity angioplasty/PCI, will continue aspirin, statin, hypertensive regimen as noted. * Hypertension: Continue home regimen including lisinopril, Lasix, PRN hydralazine. * Hyperlipidemia: We will continue patient on statin therapy, FLP in AM. * Former tobacco use: Encourage continued tobacco cessation. * Morbid Obesity: Weight loss and lifestyle changes encouraged. * Chart reported thyroid disorder, unclear type: Clarify medications but currently does not appear to be on any thyroid medications, TSH and free T4 requested. * Anxiety and depression: Per current list not on any chronic regimen, encourage continued outpatient follow-up and evaluation. * History of VTE: Patient with chart reported history of previous DVT, not currently chronically anticoagulated. * Recent rotator cuff pair in the left. Nonweightbearing on the left upper extremity. Patient may follow-up with orthopedics as outpatient. Patient requesting more pain control and her oxycodone was increased from 5 to 10 mg every 4 hours as needed. DVT prophylaxis: Lovenox, therapeutic dosing given awaiting CTPA with concern for pulmonary emboli as potential chest pain etiology given high risk with recent operative intervention however if CTPA is negative for PE then will de-escalate to chemoprophylactic dosing only. CODE STATUS: Full code. Disposition: Plan is for the patient to return to [facility], however she will require precertification before that. Unfortunately with the patient being on bedrest and having recent rotator cuff on the left and a femoral triple-lumen catheter on the right and being on bedrest, she is not able to participate in therapy at this time. After the triple-lumen catheter has been removed then physical therapy can be consulted. Then will need to wait on insurance authorization afterwards. Charges/Coding Visit Charges Inpatient E&M: 26742 Subs Hosp L2 08/11/231510 <Electronically signed by Julio Duong MD> Cosigner Signature (if applicable): CC: ~ Signed ADDENDUM by Dr. Julio Duong MD on 08/11/23 at 1512 Addendum Patient had hyperkalemia K6.2. Kayexalate was given. Repeat potassium 5.8. Patient creatinine 1.43 estimated creatinine clearance 35.7, CKD stage IIIb 08/11/231511<Electronically signed by Julio Duong MD> Cosigner Signature (if applicable): cc: ~* Signed [facility] Work Phone: 1(461) 823-480511-11-2023 Progress note Author Julio Duong [facility] August 10, 2023 2:25pm Note Date/Time August 10, 2023 2:25pm [facility] Medical Records Department [address] [place] [address] Progress Note - Hospitalist 08/10/23 1422 MR#: [id number] Acct: [id number] Name: DIANNE ALVES Rep #:[id number] : 1955 68 From: Julio Wilkins PCP: Dr. Aquiles Jones MD Status:ADM I NO Location: [place] [id number] Reason for Visit Reason for Visit: Diagnoses Chest pain, unspecified (08/05/23) Other specified health status (08/05/23) Objective Data Objective Data Vital Signs: Vital Signs Temp Pulse Resp BP Pulse Ox O2 Del Method O2 Flow Rate 97.0 F L 79 16 116/78 90 Nasal Cannula 2 08/10/23 08:35 08/10/23 13:30 08/10/23 13:30 08/10/23 10:06 08/10/23 13:30 08/10/23 13:31 08/10/23 13:31 Oxygen Flow Rate (L/min) 2 Oxygen Delivery Method Nasal Cannula Weight: 187 lb 2.759 oz Body Mass Index (BMI) 30.2 Intake & Output: Intake and Output for Last 24 Hours 08/08/23 08/09/23 08/10/23 23:59 23:59 23:59 Intake Total 1380 / 1380 1100 / 1100 500 / 500 Output Total 2350 / 2350 700 / 700 350 / 350 Balance -970 / -970 400 / 400 150 / 150 Lab / Micro Data 08/06/23 11:17 08/06/23 11:17 Physical Exam Narrative Seen and examined. She has left shoulder sling and swath. Patient gets intermittently aggressive and inappropriate states she is bleeding a lot around the right groin around midline/femoral line. Redressing was done with pressure bandage applied. Encouraged to put shoulder sling to help her with the neck spasm pain. Physical exam General: Alert, Oriented x3, Cooperative, overweight BMI 30.1 kg/m? HEENT: Atraumatic, PERRLA, EOMI, Normocephalic Oral: No Gingival or Mucosal Lesions/ Ulcerations Neck: Supple, No JVD, Negative Carotid Bruits Lungs: Air entry diminished in bilateral lung bases. No crepitation/rhonchi Cardiovascular: Regular rate, Regular Rhythm, Normal S1, Normal S2, No murmurs Abdomen: Bowel Sounds Present, Soft, Non Tender, Non-Distended : No renal angle tenderness. No suprapubic tenderness. Extremities: Present dressing on right femoral triangle. No edema, Capillary Refill Less than 3 Seconds Skin: Triple-lumen catheter in groin. No rashes, No breakdown Musculoskeletal: No Tenderness to Palpation of Joints or Extremities. ROM restricted at knees and hip joints. Restricted left shoulder movement due to shoulder surgery. Neurological: Cranial nerves II-XII grossly intact, DTR 2+/4. No acute focal neurological deficit. Psych/Mental Status: Flat affect. Assessment & Plan Assessment/Plan (1) Chest pain: QUALIFIERS: Chest pain type: unspecified Qualified Code(s): R07.9- Chest pain, unspecified PLAN: Chest Pain with indeterminate cardiac enzyme with Hypoxia. Hypoxia since resolved. Troponins only mildly elevated peaked at 73 and trended down since. Echocardiogram shows an EF of 70%. Stress test performed on the was negative. VQ scan has been ordered but unable to be performed until the so as the rest of the contrast can be washed out. Unfortunately, given the factthat patient is a extremely difficult IV access and needle access would benefit to obtain was a right femoral triple-lumen catheter. ' Radiologist but could not do CTA because of femoral line therefore VQ scan ordered. VQ scan reported very low priority for for PE. Triple-lumen catheter discontinued. PT and OT ordered. 08/09 chest pain seems most likely musculoskeletal. She is physically deconditioned advised aggressive PT and OT which she does not follow. 08/10: Patient encouraged for PT and OT after 3 to 4 hours bedrest after she hadright groin bleeding. There is no active bleeding. Continue present bandage. (2) Difficult intravenous access: PLAN: Patient has been unable to have a peripheral IV placed. Partly is due to the fact that her left arm is not amenable to that given her recent rotator cuffsurgery and requiring a sling. A PICC line was attempted but was unsuccessful. For future hospitalizations recommended to have a Mediport as patient is difficult IV access She complains of severe pain and spasm of neck for which Zanaflex increased to 4mg every 8 on Tylenol scheduled 1 g every 8 hourly along with oxycodone. PLAN: Plan Chronic conditions: * Chronic COPD: Will continue oxygen supplementation with wean as tolerated to room air, new ATC DuoNeb therapy as well as temporally hold Breztri treatment and transition to ATC budesonide therapy, PRN albuterol, HOB, IS parameters. * Hypokalemia: Potassium 5.2, minimally elevated, continue to just hydration, repeat BMP in AM. * History of polysubstance abuse with chronic hepatitis C: Reportedly clean since 03/2020 with history of crack and cocaine usage, urine drug screen pending, unclear exact treatment history for hepatitis C. * History of alcohol abuse: Reportedly sober, encourage continued sobriety. * PAD: History of lower extremity angioplasty/PCI, will continue aspirin, statin, hypertensive regimen as noted. * Hypertension: Continue home regimen including lisinopril, Lasix, PRN hydralazine. * Hyperlipidemia: We will continue patient on statin therapy, FLP in AM. * Former tobacco use: Encourage continued tobacco cessation. * Morbid Obesity: Weight loss and lifestyle changes encouraged. * Chart reported thyroid disorder, unclear type: Clarify medications but currently does not appear to be on any thyroid medications, TSH and free T4 requested. * Anxiety and depression: Per current list not on any chronic regimen, encourage continued outpatient follow-up and evaluation. * History of VTE: Patient with chart reported history of previous DVT, not currently chronically anticoagulated. * Recent rotator cuff pair in the left. Nonweightbearing on the left upper extremity. Patient may follow-up with orthopedics as outpatient. Patient requesting more pain control and her oxycodone was increased from 5 to 10 mg every 4 hours as needed. DVT prophylaxis: Lovenox, therapeutic dosing given awaiting CTPA with concern for pulmonary emboli as potential chest pain etiology given high risk with recent operative intervention however if CTPA is negative for PE then will de-escalate to chemoprophylactic dosing only. CODE STATUS: Full code. Disposition: Plan is for the patient to return to [facility], however she will require precertification before that. Unfortunately with the patient being on bedrest and having recent rotator cuff on the left and a femoral triple-lumen catheter on the right and being on bedrest, she is not able to participate in therapy at this time. After the triple-lumen catheter has been removed then physical therapy can be consulted. Then will need to wait on insurance authorization afterwards. Charges/Coding Visit Charges Inpatient E&M: 34500 Subs Hosp L2 08/10/23 9886 <Electronically signed by Julio Duong MD> Cosigner Signature (if applicable): CC: ~ Signed [facility] Work Phone: 1(637) 395-763611-10-2023 Progress note Author Julio Duong [facility] August 09, 2023 5:22pm Note Date/Time August 09, 2023 5:22pm [facility] Medical Records Department [address] [place] [address] Progress Note - Hospitalist 08/09/23 9826 MR#: [id number] Acct: [id number] Name: DIANNE ALVES Rep #:[id number] : 1955 68 From: Julio Wilkins PCP: Dr. Aquiles Jones MD Status:ADM I NO Location: [place] [id number] Reason for Visit Reason for Visit: Diagnoses Chest pain, unspecified (08/05/23) Other specified health status (08/05/23) Objective Data Objective Data Vital Signs: Vital Signs Temp Pulse Resp BP Pulse Ox O2 Del Method O2 Flow Rate 97.9 F 88 18 107/51 L 98 Nasal Cannula 2 08/09/23 15:45 08/09/23 15:45 08/09/23 15:45 08/09/23 15:45 08/09/23 15:45 08/09/23 15:45 08/09/23 15:45 Oxygen Flow Rate (L/min) 2 Oxygen Delivery Method Nasal Cannula Weight: 188 lb 14.978 oz Body Mass Index (BMI) 30.4 Intake & Output: Intake and Output for Last 24 Hours 08/07/23 08/08/23 08/09/23 23:59 23:59 23:59 Intake Total 1360 / 1760 1380 / 1380 480 / 480 Output Total 1500 / 1900 2350 / 2350 700 / 700 Balance -140 / -140 -970 / -970 -220 / -220 Lab / Micro Data 08/06/23 11:17 08/06/23 11:17 Physical Exam Narrative Seen and examined. Patient has left shoulder surgery. She is nonadherent to left shoulder sling and nurses tried to put several time when she removes it. Intermittently she gets spasm in the left neck, ongoing problem. She has triple-lumen catheter in the groin which was removed yesterday. Zofran dose increased to 4 mg 3 times daily. Tylenol increased to 1 g every 8 hourly. Physical exam General: Alert, Oriented x3, Cooperative, overweight BMI 30.1 kg/m? HEENT: Atraumatic, PERRLA, EOMI, Normocephalic Oral: No Gingival or Mucosal Lesions/ Ulcerations Neck: Supple, No JVD, Negative Carotid Bruits Lungs: Air entry diminished in bilateral lung bases. No crepitation/rhonchi Cardiovascular: Regular rate, Regular Rhythm, Normal S1, Normal S2, No murmurs Abdomen: Bowel Sounds Present, Soft, Non Tender, Non-Distended : No renal angle tenderness. No suprapubic tenderness. Extremities: No edema, Capillary Refill Less than 3 Seconds Skin: Triple-lumen catheter in groin. No rashes, No breakdown Musculoskeletal: No Tenderness to Palpation of Joints or Extremities. ROM restricted at knees and hip joints. Restricted left shoulder movement due to shoulder surgery. Neurological: Cranial nerves II-XII grossly intact, DTR 2+/4. No acute focal neurological deficit. Psych/Mental Status: Flat affect. Assessment & Plan Assessment/Plan (1) Chest pain: QUALIFIERS: Chest pain type: unspecified Qualified Code(s): R07.9- Chest pain, unspecified PLAN: Chest Pain with indeterminate cardiac enzyme with Hypoxia. Hypoxia since resolved. Troponins only mildly elevated peaked at 73 and trended down since. Echocardiogram shows an EF of 70%. Stress test performed on the was negative. VQ scan has been ordered but unable to be performed until the so as the rest of the contrast can be washed out. Unfortunately, given the factthat patient is a extremely difficult IV access and needle access would benefit to obtain was a right femoral triple-lumen catheter. ' Radiologist but could not do CTA because of femoral line therefore VQ scan ordered. VQ scan reported very low priority for for PE. Triple-lumen catheter discontinued. PT and OT ordered. 06/09 chest pain seems most likely musculoskeletal. She is physically deconditioned advised aggressive PT and OT which she does not follow. (2) Difficult intravenous access: PLAN: Patient has been unable to have a peripheral IV placed. Partly is due to the fact that her left arm is not amenable to that given her recent rotator cuffsurgery and requiring a sling. A PICC line was attempted but was unsuccessful. For future hospitalizations recommended to have a Mediport as patient is difficult IV access She complains of severe pain and spasm of neck for which Zanaflex increased to 4mg every 8 on Tylenol scheduled 1 g every 8 hourly along with oxycodone. PLAN: Plan Chronic conditions: * Chronic COPD: Will continue oxygen supplementation with wean as tolerated to room air, new ATC DuoNeb therapy as well as temporally hold Breztri treatment and transition to ATC budesonide therapy, PRN albuterol, HOB, IS parameters. * Hypokalemia: Potassium 5.2, minimally elevated, continue to just hydration, repeat BMP in AM. * History of polysubstance abuse with chronic hepatitis C: Reportedly clean since 03/2020 with history of crack and cocaine usage, urine drug screen pending, unclear exact treatment history for hepatitis C. * History of alcohol abuse: Reportedly sober, encourage continued sobriety. * PAD: History of lower extremity angioplasty/PCI, will continue aspirin, statin, hypertensive regimen as noted. * Hypertension: Continue home regimen including lisinopril, Lasix, PRN hydrala zine. * Hyperlipidemia: We will continue patient on statin therapy, FLP in AM. * Former tobacco use: Encourage continued tobacco cessation. * Morbid Obesity: Weight loss and lifestyle changes encouraged. * Chart reported thyroid disorder, unclear type: Clarify medications but currently does not appear to be on any thyroid medications, TSH and free T4 requested. * Anxiety and depression: Per current list not on any chronic regimen, encourage continued outpatient follow-up and evaluation. * History of VTE: Patient with chart reported history of previous DVT, not currently chronically anticoagulated. * Recent rotator cuff pair in the left. Nonweightbearing on the left upper extremity. Patient may follow-up with orthopedics as outpatient. Patient requesting more pain control and her oxycodone was increased from 5 to 10 mg every 4 hours as needed. DVT prophylaxis: Lovenox, therapeutic dosing given awaiting CTPA with concern for pulmonary emboli as potential chest pain etiology given high risk with recent operative intervention however if CTPA is negative for PE then will de-escalate to chemoprophylactic dosing only. CODE STATUS: Full code. Disposition: Plan is for the patient to return to [facility], however she will require precertification before that. Unfortunately with the patient being on bedrest and having recent rotator cuff on the left and a femoral triple-lumen catheter on the right and being on bedrest, she is not able to participate in therapy at this time. After the triple-lumen catheter has been removed then physical therapy can be consulted. Then will need to wait on insurance authorization afterwards. Charges/Coding Visit Charges Inpatient E&M: 28823 Subs Hosp L2 08/09/231721 <Electronically signed by Julio Duong MD> Cosigner Signature (if applicable): CC: ~ Signed [facility] Work Phone: 1(132) 900-940111-09-2023 Progress note Author Julio Duong [facility] August 08, 2023 5:35pm Note Date/Time August 08, 2023 5 :36pm [facility] Medical Records Department [address] [place] [address] Progress Note - Hospitalist 08/08/23 1731 MR#: [id number] Acct: [id number] Name: DIANNE ALVES Rep #:[id number] : 1955 68 From: Julio Wilkins PCP: Dr. Aquiles Jones MD Status:ADM I NO Location: [place] [address] Reason for Visit Reason for Visit: Diagnoses Chest pain, unspecified (08/05/23) Other specified health status (08/05/23) Objective Data Objective Data Vital Signs: Vital Signs Temp Pulse Resp BP Pulse Ox O2 Del Method O2 Flow Rate 98.2 F 76 16 136/85 H 95 Room Air 2 08/08/23 15:31 08/08/23 15:31 08/08/23 15:31 08/08/23 15:31 08/08/23 15:31 08/08/23 15:31 08/08/23 15:08 Oxygen Flow Rate (L/min) 2 Oxygen Delivery Method Room Air Weight: 186 lb 8.177 oz Body Mass Index (BMI) 30.1 Intake & Output: Intake and Output for Last 24 Hours 08/06/23 08/07/23 08/08/23 23:59 23:59 23:59 Intake Total 1840 / 2080 1360 / 1760 900 / 900 Output Total 2150 / 2450 1500 / 1900 1100 / 1100 Balance -310 / -370 -140 / -140 -200 / -200 Lab / Micro Data 08/06/23 11:17 08/06/23 11:17 Radiography Diagnostic Testing: Radiology Impression Venous Doppler Study 08/07/23 11:16 Interpretation Summary Acute deep vein thrombosis is noted in the left soleus vein. Deep veins of the right lower extremity are patent and compressible segmentally.There is no evidence of right lower extremity deep vein thrombosis. The bilateral great saphenous veins appear patent and compressible segmentally. Ordering Physician: Woodrow Cardenas Referring Physician: Aquiles Jones Performed By: Cherry Mercedes RVT Lung Scan-VQ NM 08/08/23 10:00 IMPRESSION: 1. VERY LOW PROBABILITY FOR PULMONARY EMBOLUS (<10%) 99m Tc DTPA aerosol ventilation / 99m Tc MAA pulmonary perfusion imaging examination, according to PIOPED II interpretive criteria with regard given to the presence of > 2 ventilation-perfusion matches without corresponding radiographic changes. (Sotssherman et al, Radiology 246: 941, 2008 Sotssherman et al, J Nucl Med 49: 1741, 2008). 2. Central clumping of the aerosol may be secondary to obstructive airway mechanics and or clinical tachypnea. Electronically Signed: Duke Brunner DO at 11:19 EST , Physical Exam Narrative Seen and examined. Patient has left shoulder surgery. Intermittently she gets spasm in the left neck. She has triple-lumen catheter in the groin which I ordered to remove as venous duplex of lower extremities negative. Physical exam General: Alert, Oriented x3, Cooperative, overweight BMI 30.1 kg/m? HEENT: Atraumatic, PERRLA, EOMI, Normocephalic Oral: No Gingival or Mucosal Lesions/ Ulcerations Neck: Supple, No JVD, Negative Carotid Bruits Lungs: Air entry diminished in bilateral lung bases. No crepitation/rhonchi Cardiovascular: Regular rate, Regular Rhythm, Normal S1, Normal S2, No murmurs Abdomen: Bowel Sounds Present, Soft, Non Tender, Non-Distended : No renal angle tenderness. No suprapubic tenderness. Extremities: No edema, Capillary Refill Less than 3 Seconds Skin: Triple-lumen catheter in groin. No rashes, No breakdown Musculoskeletal: No Tenderness to Palpation of Joints or Extremities. ROM restricted at knees and hip joints. Neurological: Cranial nerves II-XII grossly intact, DTR 2+/4. No acute focal neurological deficit. Psych/Mental Status: Flat affect. Assessment & Plan Assessment/Plan (1) Chest pain: QUALIFIERS: Chest pain type: unspecified Qualified Code(s): R07.9- Chest pain, unspecified PLAN: Chest Pain with indeterminate cardiac enzyme with Hypoxia. Hypoxia since resolved. Troponins only mildly elevated peaked at 73 and trended down since. Echocardiogram shows an EF of 70%. Stress test performed on the seventh was negative. VQ scan has been ordered but unable to be performed until the ninth so as the rest of the contrast can be washed out. Unfortunately, given the factthat patient is a extremely difficult IV access and needle access would benefit to obtain was a right femoral triple-lumen catheter. ' Radiologist but could not do CTA because of femoral line therefore VQ scan ordered. VQ scan reported very low priority for for PE. Triple-lumen catheter discontinued. PT and OT ordered. (2) Difficult intravenous access: PLAN: Patient has been unable to have a peripheral IV placed. Partly is due to the fact that her left arm is not amenable to that given her recent rotator cuffsurgery and requiring a sling. A PICC line was attempted but was unsuccessful. For future hospitalizations recommended to have a Mediport as patient is difficult IV access PLAN: Plan Chronic conditions: * Chronic COPD: Will continue oxygen supplementation with wean as tolerated to room air, new ATC DuoNeb therapy as well as temporally hold Breztri treatment and transition to ATC budesonide therapy, PRN albuterol, HOB, IS parameters. * Hypokalemia: Potassium 5.2, minimally elevated, continue to just hydration, repeat BMP in AM. * History of polysubstance abuse with chronic hepatitis C: Reportedly clean si gae 03/2020 with history of crack and cocaine usage, urine drug screen pending, unclear exact treatment history for hepatitis C. * History of alcohol abuse: Reportedly sober, encourage continued sobriety. * PAD: History of lower extremity angioplasty/PCI, will continue aspirin, statin, hypertensive regimen as noted. * Hypertension: Continue home regimen including lisinopril, Lasix, PRN hydralazine. * Hyperlipidemia: We will continue patient on statin therapy, FLP in AM. * Former tobacco use: Encourage continued tobacco cessation. * Morbid Obesity: Weight loss and lifestyle changes encouraged. * Chart reported thyroid disorder, unclear type: Clarify medications but currently does not appear to be on any thyroid medications, TSH and free T4 requested. * Anxiety and depression: Per current list not on any chronic regimen, encourage continued outpatient follow-up and evaluation. * History of VTE: Patient with chart reported history of previous DVT, not currently chronically anticoagulated. * Recent rotator cuff pair in the left. Nonweightbearing on the left upper extremity. Patient may follow-up with orthopedics as outpatient. Patient requesting more pain control and her oxycodone was increased from 5 to 10 mg every 4 hours as needed. DVT prophylaxis: Lovenox, therapeutic dosing given awaiting CTPA with concern for pulmonary emboli as potential chest pain etiology given high risk with recent operative intervention however if CTPA is negative for PE then will de-escalate to chemoprophylactic dosing only. CODE STATUS: Full code. Disposition: Plan is for the patient to return to [facility], however she will require precertification before that. Unfortunately with the patient being on bedrest and having recent rotator cuff on the left and a femoral triple-lumen catheter on the right and being on bedrest, she is not able to participate in therapy at this time. After the triple-lumen catheter has been removed then physical therapy can be consulted. Then will need to wait on insurance authorization afterwards. Charges/Coding Visit Charges Inpatient E&M: 70078 Subs Hosp L2 08/08/23 7098 <Electronically signed by Julio Duong MD> Cosigner Signature (if applicable): CC: ~ Signed [facility] Work Phone: 1(225) 240-103711-08-2023 Progress note Author Woodrow Cardenas [facility] August 07, 2023 2:50pm Note Date/Time August 07, 2023 8 :52am [facility] Medical Records Department [address] [place] [address] Progress Note - Hospitalist 08/07/23 0851 MR#: [id number] Acct: [id number] Name: DIANNE ALVES Rep #:[id number] : 1955 68 From: Woodrow Cardenas DO PCP: Dr. Aquiles Jones MD Status:ADM I NO Location: [place] [address] Reason for Visit Reason for Visit: Diagnoses Chest pain, unspecified (08/05/23) Subjective Subjective Still having pain in her left shoulder after rotator cuff surgery. Despite being told not to, patient has gotten up to go to the restroom. Patient again was reminded not to get up because of the femoral line that she still has. Objective Data Objective Data Vital Signs: Vital Signs Temp Pulse Resp BP Pulse Ox O2 Del Method O2 Flow Rate 36.9 C 87 16 126/77 H 92 Nasal Cannula 2 08/07/23 08:15 08/07/23 08:15 08/07/23 08:15 08/07/23 08:15 08/07/23 08:15 08/07/23 08:15 08/07/23 08:15 Oxygen Flow Rate (L/min) 2 Oxygen Delivery Method Nasal Cannula Weight: 84 kg Body Mass Index (BMI) 29.9 Intake & Output: Intake and Output for Last 24 Hours 08/05/23 08/06/23 08/07/23 23:59 23:59 23:59 Intake Total 1695 / 1935 1840 / 2080 240 / 240 Output Total 550 / 750 2150 / 2450 400 / 400 Balance 1145 / 1185 -310 / -370 -160 / -160 Lab / Micro Data 08/06/23 11:17 08/06/23 11:17 Labs: Laboratory Results - last 24 hr 08/06/23 11:17: WBC 5.9, RBC 4.17 L, Hgb 12.0, Hct 39.0, MCV 93.5, MCH 28.8, MCHC 30.8 L, RDW Std Deviation 52.4 H, RDW Coeff of Oleg 15.3 H, Plt Count 235, MPV 9.8, Immature Gran % (Auto) 0.200, Neut % (Auto) 42.9 L, Lymph % (Auto) 39.6, [place] % (Auto) 10.2 H, Eos % (Auto) 6.4 H, Baso % (Auto) 0.7, Absolute Neuts (auto) 2.5, Absolute Lymphs (auto) 2.34, Nucleated RBC % 0, Sodium 138, Potassium 4.4, Chloride 105, Carbon Dioxide 32.0, Anion Gap 1 L, BUN 25 H, Creatinine 1.41 H, Estim Creat Clear Calc 36.24, Est GFR (MDRD) Af Amer 48 L, Est GFR (MDRD) Non-Af 40 L, BUN/Creatinine Ratio 17.7, Glucose 112 H, Calcium 8.4 L, Total Bilirubin 0.30, AST 14 L, ALT 20, Alkaline Phosphatase 77, Total Protein 6.2 L, Albumin 2.8 L, Globulin 3.4, Albumin/Globulin Ratio 0.8 L, Triglycerides 108, Cholesterol 131, LDL Cholesterol 63, VLDL Cholesterol 22, HDLCholesterol 46 Physical Exam Const alert and no apparent distress Constitutional Narrative: Pleasant today. Making jokes. Resp normal respiratory effort, no retractions and no use of accessory muscles Cardio regular rate, regular rhythm, S1 normal heart sound and S2 normal heart sound GI normal to inspection, nondistended, normoactive bowel sounds Extremity Extremity Narrative: Right femoral triple-lumen catheter sites intact without any hematoma. Psych affect normal Assessment & Plan Assessment/Plan (1) Chest pain: QUALIFIERS: Chest pain type: unspecified Qualified Code(s): R07.9- Chest pain, unspecified PLAN: Chest Pain with indeterminate cardiac enzyme with Hypoxia. Hypoxia since resolved. Troponins only mildly elevated peaked at 73 and trended down since. Echocardiogram shows an EF of 70%. Stress test performed on the was negative. VQ scan has been ordered but unable to be performed until the so as the rest of the contrast can be washed out. Unfortunately, given the factthat patient is a extremely difficult IV access and needle access would benefit to obtain was a right femoral triple-lumen catheter. Radiology department was unable to coordinate a CTA of the chest with a femoral line therefore that has not been performed and we are proceeding with a VQ scan. If the VQ scan is negative I would not advise any additional work-up and to remove the triple-lumen catheter. (2) Difficult intravenous access: PLAN: Patient has been unable to have a peripheral IV placed. Partly is due to the fact that her left arm is not amenable to that given her recent rotator cuffsurgery and requiring a sling. A PICC line was attempted but was unsuccessful. A triple- lumen catheter was placed in the right femoral vein. Patient is currently on bedrest while the femoral line is in place. Patient has gone up despite that and has been instructed to be on bedrest until that can be removed. If the VQ scan to be performed on the is negative then the triple-lumen catheter can be removed and she can be off of bedrest. The patient does require frequent hospitalizations in the future, it may be advisable for the patient to be considered for port placement given the profounddifficulty of IV access. PLAN: Plan Chronic conditions: * Chronic COPD: Will continue oxygen supplementation with wean as tolerated to room air, new ATC DuoNeb therapy as well as temporally hold Breztri treatment and transition to ATC budesonide therapy, PRN albuterol, HOB, IS parameters. * Hypokalemia: Potassium 5.2, minimally elevated, continue to just hydration, repeat BMP in AM. * History of polysubstance abuse with chronic hepatitis C: Reportedly clean since 03/2020 with history of crack and cocaine usage, urine drug screen pending, unclear exact treatment history for hepatitis C. * History of alcohol abuse: Reportedly sober, encourage continued sobriety. * PAD: History of lower extremity angioplasty/PCI, will continue aspirin, statin, hypertensive regimen as noted. * Hypertension: Continue home regimen including lisinopril, Lasix, PRN hydralazine. * Hyperlipidemia: We will continue patient on statin therapy, FLP in AM. * Former tobacco use: Encourage continued tobacco cessation. * Morbid Obesity: Weight loss and lifestyle changes encouraged. * Chart reported thyroid disorder, unclear type: Clarify medications but currently does not appear to be on any thyroid medications, TSH and free T4 requested. * Anxiety and depression: Per current list not on any chronic regimen, encourage continued outpatient follow-up and evaluation. * History of VTE: Patient with chart reported history of previous DVT, not currently chronically anticoagulated. * Recent rotator cuff pair in the left. Nonweightbearing on the left upper extremity. Patient may follow-up with orthopedics as outpatient. Patient requesting more pain control and her oxycodone was increased from 5 to 10 mg every 4 hours as needed. DVT prophylaxis: Lovenox, therapeutic dosing given awaiting CTPA with concern for pulmonary emboli as potential chest pain etiology given high risk with recent operative intervention however if CTPA is negative for PE then will de-escalate to chemoprophylactic dosing only. CODE STATUS: Full code. Disposition: Plan is for the patient to return to [facility], however she will require precertification before that. Unfortunately with the patient being on bedrest and having recent rotator cuff on the left and a femoral triple-lumen catheter on the right and being on bedrest, she is not able to participate in therapy at this time. After the triple-lumen catheter has been removed then physical therapy can be consulted. Then will need to wait on insurance authorization afterwards. Greater than 35 minutes of which greater than 50% time was counseled the patientat bedside about the need to remain on bedrest with the triple-lumen catheter isin place Charges/Coding Visit Charges Inpatient E&M: 82887 Subs Hosp L2 08/07/23 1450 <Electronically signed by Woodrow Cardenas DO> Cosigner Signature (if applicable): CC: ~ Signed [facility] Work Phone: 1(927) 187-312111-07-2023 Progress note Author Woodrow Cardenas [facility] August 06, 2023 2:18pm Note Date/Time August 06, 2023 8 :36am [facility] Medical Records Department [address] [facility] [place] [address] Progress Note - Hospitalist 08/06/23 0835 MR#: [id number] Acct: [id number] Name: DIANNE ALVES Rep #:[id number] : 1955 68 From: Woodrow Cardenas DO PCP: Dr. Aquiles Jones MD Status:ADM I NO Location: [place] [address] Reason for Visit Reason for Visit: Diagnoses Chest pain, unspecified (08/05/23) Subjective Subjective No further chest pain. Objective Data Objective Data Vital Signs: Vital Signs Temp Pulse Resp BP Pulse Ox O2 Del Method O2 Flow Rate 36.6 C 89 16 110/52 L 97 Nasal Cannula 2 08/06/23 03:24 08/06/23 03:24 08/06/23 03:24 08/06/23 03:24 08/06/23 03:24 08/06/23 03:24 08/06/23 03:24 Oxygen Flow Rate (L/min) 2 Oxygen Delivery Method Nasal Cannula Weight: 84.1 kg Body Mass Index (BMI) 29.9 Intake & Output: Intake and Output for Last 24 Hours 08/04/23 08/05/23 08/06/23 23:59 23:59 23:59 Intake Total 1695 / 1935 340 / 340 Output Total 550 / 750 500 / 500 Balance 1145 / 1185 -160 / -160 Lab / Micro Data 08/06/23 11:17 08/06/23 11:17 Labs: Laboratory Results - last 24 hr 08/05/23 05:30: D-Dimer Quant (PE/DVT) 9.13 H* 08/05/23 12:50: Troponin I High Sens 64 H Radiography Diagnostic Testing: Radiology Impression Echocardiogram 08/05/23 08:16 Interpretation Summary The estimated ejection fraction is 70 %. No evidence for diastolic dysfunction. Ordering Physician: Miguelina Castanon Referring Physician: Aquiles Jones Performed By: Rick Pruitt RCS Physical Exam Const alert and no apparent distress HEENT head/scalp atraumatic and moist oral mucous membranes Resp normal respiratory effort, no retractions, no use of accessory muscles and clearto auscultation bilaterally Cardio regular rate, regular rhythm, S1 normal heart sound and S2 normal heart sound GI normal to inspection, nondistended, normoactive bowel sounds, soft to palpation,non-tender and non-distended Assessment & Plan Assessment/Plan (1) Chest pain: QUALIFIERS: Chest pain type: unspecified Qualified Code(s): R07.9- Chest pain, unspecified PLAN: Chest Pain with indeterminate cardiac enzyme with Hypoxia: EKG in ED sinus rhythm with no acute evidence of ischemia with lateral nonspecific T wave changes similar to previous, Patient with difficult IV access. Femoral central line placed but the ER physician was notified by radiology that they would not be able to do the contrast timing through that. D-dimer is elevated. Echocardiogram shows an EF of 70%. No diastolic dysfunction. Stress test negative. VQ scan pending. Urine drug screen + opiates. PLAN: Plan Chronic conditions: * Chronic COPD: Will continue oxygen supplementation with wean as tolerated to room air, new ATC DuoNeb therapy as well as temporally hold Breztri treatment and transition to ATC budesonide therapy, PRN albuterol, HOB, IS parameters. * Hypokalemia: Potassium 5.2, minimally elevated, continue to just hydration, repeat BMP in AM. * History of polysubstance abuse with chronic hepatitis C: Reportedly clean since 03/2020 with history of crack and cocaine usage, urine drug screen pending, unclear exact treatment history for hepatitis C. * History of alcohol abuse: Reportedly sober, encourage continued sobriety. * PAD: History of lower extremity angioplasty/PCI, will continue aspirin, statin, hypertensive regimen as noted. * Hypertension: Continue home regimen including lisinopril, Lasix, PRN hydralazine. * Hyperlipidemia: We will continue patient on statin therapy, FLP in AM. * Former tobacco use: Encourage continued tobacco cessation. * Morbid Obesity: Weight loss and lifestyle changes encouraged. * Chart reported thyroid disorder, unclear type: Clarify medications but currently does not appear to be on any thyroid medications, TSH and free T4 requested. * Anxiety and depression: Per current list not on any chronic regimen, encourage continued outpatient follow-up and evaluation. * History of VTE: Patient with chart reported history of previous DVT, not currently chronically anticoagulated. DVT prophylaxis: Lovenox, therapeutic dosing given awaiting CTPA with concern for pulmonary emboli as potential chest pain etiology given high risk with recent operative intervention however if CTPA is negative for PE then will de-escalate to chemoprophylactic dosing only. CODE STATUS: Full code. Charges/Coding Visit Charges Inpatient E&M: 19814 Subs Hosp L2 08/06/23 1418 <Electronically signed by Woodrow Cardenas DO> Cosigner Signature (if applicable): CC: ~ Signed [facility] Work Phone: 1(761) 761-981111-06-2023 Progress note Author Woodrow Cardenas [facility] August 05, 2023 1:28pm Note Date/Time August 05, 2023 8 :09am [facility] Medical Records Department [address] [place] [address] Progress Note - Hospitalist 08/05/23 0804 MR#: [id number] Acct: [id number] Name: DIANNE ALVES Rep #:[id number] : 1955 68 From: Woodrow Cardenas DO PCP: Dr. Aquiles Jones MD Status:ADM I NO Location: [place] [address] 1 Reason for Visit Reason for Visit: Diagnoses Chest pain, unspecified (08/05/23) Subjective Subjective Chest pain. Not active at present. Denied any radiation. Denied any diaphoresis or nausea and vomiting. Stating that she has to urinate quite a bitand is upset currently because her sling from her recent rotator cuff repair is sliding off. Objective Data Objective Data Vital Signs: Vital Signs Temp Pulse Resp BP Pulse Ox O2 Del Method O2 Flow Rate 36.1 C L 89 16 112/97 H 98 Nasal Cannula 2 08/05/23 02:19 08/05/23 07:59 08/05/23 07:59 08/05/23 07:59 08/05/23 07:59 08/05/23 04:58 08/05/23 04:58 Oxygen Flow Rate (L/min) 2 Oxygen Delivery Method Nasal Cannula Weight: 109.9 kg Body Mass Index (BMI) 39.1 Intake & Output: Intake and Output for Last 24 Hours 08/04/23 08/04/23 08/05/23 00:59 23:59 23:59 Intake Total Balance Lab / Micro Data 08/05/23 03:20 08/05/23 03:20 Labs: Laboratory Results - last 24 hr 08/05/23 03:20: WBC 6.3, RBC 4.69, Hgb 13.4, Hct 44.5, MCV 94.9, MCH 28.6, MCHC 30.1 L, RDW Std Deviation 54.4 H, RDW Coeff of Oleg 15.6 H, Plt Count 244, MPV 10.5, Immature Gran % (Auto) 0.200, Neut % (Auto) 48.3, Lymph % (Auto) 37.6, [place] % (Auto) 7.6, Eos % (Auto) 5.7 H, Baso % (Auto) 0.6, Absolute Neuts (auto) 3.1, Absolute Lymphs (auto) 2.38, Nucleated RBC % 0, Sodium 137, Potassium 5.2 H, Chloride 103, Carbon Dioxide 30.0, Anion Gap 4 L, BUN 28 H, Creatinine 1.30 H,Estim Creat Clear Calc 39.31, Est GFR (MDRD) Af Amer 53 L, Est GFR (MDRD) Non-Af43 L, BUN/Creatinine Ratio 21.5 H, Glucose 115 H, Calcium 9.2, Troponin I High Sens 73 H, B- Natriuretic Peptide 7.2 08/05/23 05:00: Urine Opiates Screen POSITIVE H, Urine Methadone Screen NEGATIVE, Ur Barbiturates Screen NEGATIVE, Ur Phencyclidine Scrn NEGATIVE, Ur Amphetamines Screen NEGATIVE, MDMA (Ecstasy) Screen NEGATIVE, U Benzodiazepines Scrn NEGATIVE, Urine Cocaine Screen NEGATIVE, U Cannabinoids Screen NEGATIVE, UrDrug Screen Comment 08/05/23 05:30: Magnesium 2.6 Radiography Diagnostic Testing: Radiology Impression Chest X-Ray 08/05/23 05:05 IMPRESSION: No evidence of acute cardiopulmonary disease. Electronically Signed: Cole Huynh DO at 5:28 EST , Physical Exam Const Constitutional Narrative: Nontoxic. Anxious. No respiratory distress. No conversational dyspnea. HEENT head/scalp atraumatic Resp normal respiratory effort, no retractions, no use of accessory muscles and clearto auscultation bilaterally Cardio regular rate, regular rhythm, S1 normal heart sound and S2 normal heart sound GI normal to inspection, nondistended, normoactive bowel sounds, soft to palpation,non-tender and non-distended Extremity Extremity Narrative: Left arm in sling with dressing over the left shoulder. Assessment & Plan Assessment/Plan (1) Chest pain: QUALIFIERS: Chest pain type: unspecified Qualified Code(s): R07.9- Chest pain, unspecified PLAN: Chest Pain with indeterminate cardiac enzyme with Hypoxia: EKG in ED sinus rhythm with no acute evidence of ischemia with lateral nonspecific T wave changes similar to previous, Patient with difficult IV access. Femoral central line placed but the ER physician was notified by radiology that they would not be able to do the contrast timing through that. D-dimer is elevated. Since they are unable to run it through the femoral line, patient will need to have a power PICC placed after which, patient can undergo aCT angiogram. FLP in AM. ECHO requested. Urine drug screen + opiates. PLAN: Plan Chronic conditions: * Chronic COPD: Will continue oxygen supplementation with wean as tolerated to room air, new ATC DuoNeb therapy as well as temporally hold Breztri treatment and transition to ATC budesonide therapy, PRN albuterol, HOB, IS parameters. * Hypokalemia: Potassium 5.2, minimally elevated, continue to just hydration, repeat BMP in AM. * History of polysubstance abuse with chronic hepatitis C: Reportedly clean since 03/2020 with history of crack and cocaine usage, urine drug screen pending, unclear exact treatment history for hepatitis C. * History of alcohol abuse: Reportedly sober, encourage continued sobriety. * PAD: History of lower extremity angioplasty/PCI, will continue aspirin, statin, hypertensive regimen as noted. * Hypertension: Continue home regimen including lisinopril, Lasix, PRN hydralazine. * Hyperlipidemia: We will continue patient on statin therapy, FLP in AM. * Former tobacco use: Encourage continued tobacco cessation. * Morbid Obesity: Weight loss and lifestyle changes encouraged. * Chart reported thyroid disorder, unclear type: Clarify medications but currently does not appear to be on any thyroid medications, TSH and free T4 requested. * Anxiety and depression: Per current list not on any chronic regimen, encourage continued outpatient follow-up and evaluation. * History of VTE: Patient with chart reported history of previous DVT, not currently chronically anticoagulated. DVT prophylaxis: Lovenox, therapeutic dosing given awaiting CTPA with concern for pulmonary emboli as potential chest pain etiology given high risk with recent operative intervention however if CTPA is negative for PE then will de-escalate to chemoprophylactic dosing only. CODE STATUS: Full code. Discussed with the patient's friend at bedside. Charges/Coding Visit Charges Inpatient E&M: 14615 Subs Hosp L2 08/05/23 1328 <Electronically signed by Woodrow Cardenas DO> Cosigner Signature (if applicable): CC: ~ Signed [facility] Work Phone: 1(735) 327-132611-06-[address] [facility] August 05, 2023 7:57am Note Date/Time August 05, 2023 2 :22am [facility] Medical Records Department [address] [place] [address] [place] [address] Emergency Department Summary 08/05/23 MR#: [id number] Acct: [id number] Name: DIANNE ALVES Rep #:[id number] : 1955 68 From: Castro Guallpa PCP: Dr. Aquiles Jones MD Status:ADM I NO Location: [address] History of Present Illness Chief Complaint: Chest Pain [facility] Medical History (Updated 08/05/23 @ 05:[address] Miguelina Castanon MD) Alcohol abuse Chronic hepatitis C without hepatic coma Cocaine abuse COPD (chronic obstructive pulmonary disease) DVT (deep venous thrombosis) Euthyroid sick syndrome H/O cocaine abuse H/O ETOH abuse HTN (hypertension) Lumbar herniated disc Pinched nerve in neck Presence of stent in artery Smoker Thyroid disorder Home Medications albuterol sulfate 90 mcg/actuation aerosol inhaler 2 puff IH Q4H PRN PRN Wheezing 08/26/20 [History Last Taken 08/26/20] aspirin 81 mg chewable tablet 81 mg PO DAILY BLOOD CLOT 08/26/20 [History Last Taken 09/12/20] lisinopril 10 mg tablet 20 mg PO DAILY bp 08/26/20 [History Last Taken 09/12/20] tizanidine 2 mg capsule 2 mg PO Q8 PRN Muscle Spasm 08/26/20 [History Last Taken 08/26/20] atorvastatin 40 mg tablet 40 mg PO DAILY 02/07/21 [History Last Taken Unknown] furosemide 20 mg tablet 20 mg PO DAILY 10/17/22 [History Last Taken Unknown] potassium chloride 10 mEq capsule,extended release 10 meq PO DAILY 10/17/22 [History Last Taken Unknown] budesonide 160 mcg-glycopyr 9 mcg-formot 4.8 mcg/actuation HFA inhaler (Breztri Aerosphere) 2 inh inhalation BID 02/08/23 [History Last Taken Unknown] etodolac 400 mg tablet 400 mg PO BID 02/08/23 [History Last Taken Unknown] gabapentin 300 mg capsule 300 mg PO TID nerve pain 02/08/23 [History Last Taken Unknown] ipratropium 0.5 mg-albuterol 3 mg (2.5 mg base)/3 mL nebulization soln 3 ml inhalation TID 02/08/23 [History Last Taken Unknown] meloxicam 15 mg tablet 15 mg PO DAILY 02/08/23 [History Last Taken Unknown] oxybutynin chloride 10 mg tablet,extended release 24 hr 10 mg PO DAILY 02/08/23 [History Last Taken Unknown] diclofenac sodium 1 % topical gel (Voltaren Arthritis Pain) 2 g topical BID PRN pain 02/15/23 [History Last Taken Unknown] oxycodone-acetaminophen 5 mg-325 mg tablet (Percocet) 1 tab PO Q6H PRN pain 3 days #14 tabs 02/15/23 [Rx Last Taken Unknown] oxycodone-acetaminophen 5 mg-325 mg tablet (Percocet) 1 tab PO Q6H pain 3 days #12 tabs 06/04/23 [Rx Last Taken Unknown] prednisone 20 mg tablet 60 mg (3 x 20 mg) PO DAILY #15 TABLETS 06/04/23 [Rx Last Taken Unknown] gabapentin 100 mg capsule 400 mg PO QHS 08/05/23 [History Last Taken Unknown] omeprazole 40 mg capsule,delayed release 40 mg PO DAILY 08/05/23 [History Last Taken Unknown] Allergy/AdvReac Type Severity Reaction Status Date / Time No Known Allergies Allergy Verified 08/05/23 02:19 Family History (Updated 08/05/23 @ 05:[address] Miguelina Castanon MD) Mother Hypertension Other Alcoholism Surgical History (Updated 08/05/23 @ 05:[address] Miguelina Castanon MD) H/O vascular surgery History of rotator cuff surgery Stenosis of artery of left lower extremity Social History (Updated 08/05/23 @ 05:[address] Miguelina Castanon MD) household members: none Smoking Status: Former smoker how long ago did patient quit smoking: January 2022 alcohol intake: former substance use type: former substance user Date of last use: 03/2020 and crack/cocaine caffeine: Yes Type: carbonated beverages and coffee EXAM Physical Exam Const Vital Signs: 08/05/23 02:19 08/05/23 02:19 08/05/23 02:26 Temperature 96.9 F L Temperature Source Temporal Pulse Rate 90 Respiratory Rate 17 Respiratory Effort Normal Non-Labored Blood Pressure 163/85 H Blood Pressure Mean 111 Pulse Ox 93 Oxygen Delivery Method Room Air Oxygen Flow Rate (L/min) 08/05/23 04:58 08/05/23 02:27 Temperature Temperature Source Pulse Rate 85 Respiratory Rate 15 Respiratory Effort Blood Pressure 112/97 H Blood Pressure Mean 102 Pulse Ox 96 88 Oxygen Delivery Method Nasal Cannula Room Air Oxygen Flow Rate (L/min) 2 MDM [facility] Narrative Medical decision making narrative: HISTORY OF PRESENT ILLNESS: 68-year-old female here with concern for chest pain. Notes pain started approximately 1 hour prior to arrival. It is sharp. It is not pressure-like and is not associate with shortness of breath. She denies taking blood thinners. She denies any recent cocaine use. Denies any recent sick contacts or illnesses. No cough or fever. The patient denies recent surgery in the last 4 weeks or immobilization in the last 3 days, denies previous diagnosis of DVT or PE, hemoptysis, unilateral leg swelling or malignancy with treatment the last 6 months or palliative. No estrogen use noted. Patient denies sudden onset of pain, no tearing sensation, no migratory symptoms, no new numbness, weakness or loss of sensation. Patient denies family history or personal history of Connective tissue disorders (Marfan's Syndrome, Adilia Danlos etc) REVIEW OF SYSTEMS: Pertinent positives: Chest pain Pertinent negatives: Shortness of breath, cough, leg swelling, unilateral leg swelling or weakness PHYSICAL EXAM: Nursing triage notes reviewed, Vital signs reviewed Constitutional: please see mdm HENT: MMM Eyes: Pupils equal round and reactive to light, Extraocular muscles intact Neck: No stridor, no JVD, full neck ROM Lungs: Clear to auscultation, No wheezing or rales. No increased work of breathing, no conversational dyspnea, no accessory muscle use, no nasal flaring. No respiratory distress noted Heart: Regular rate and rhythm, No murmurs, No rubs and No gallops, 2+ distal pulses (radial, femoral, posterior tibial) in all extremities Abdomen: Soft, there is no tenderness, rigidity, rebound or guarding, no obviousperitoneal signs, no palpable pulsatile abdominal masses, no auscultated abdominal bruit : No CVAT Extremities: No edema Neuro: No focal neurological deficits, cranial nerves II through XII intact, 5/5strength in all extremities. Intact sensation to light touch in all extremities,2+ reflexes bilateral patella tendons. Normal gait. No ataxia. Skin: Surgical site of left shoulder is clean dry intact with no focal induration or signs of infection. MEDICAL DECISION MAKING: Chief Complaint: Chest pain External records reviewed: Prior echocardiogram reviewed. Last ejection fraction 69% Factors affecting care: COPD, history of DVT, history of peripheral artery disease, hyperlipidemia, attention history of possible abuse including cocaine Social determinants of health: History of cocaine use History obtained from others: EMS Consults: Internal medicine (Dr. Castanon) MDM Narrative: Patient was hemodynamically stable, afebrile, nontoxic-appearing. Exam without focal cardiopulmonary normalities. I considered the following differential diagnosis: ACS, arrhythmia, anemia, PE, cocaine induced chest pain, aortic dissection While the patient did not complain of pleuritic chest pain she did have history of DVT and recent surgery which increase her risk for PE substantially. Given this I obtained a CT scan of the chest with contrast. Patient was difficult to gain IV access on. I assess patient's willingness to continue with IV access. Patient is willing to continue IV access despite significant pain. Had a conversation with online content developer, RN for the patient about IV access. Occurredapproximately 3 AM. Checked in again at 3:10 AM. At this time patient is awaiting using the bathroom we will attempt to try obtain IV access once again. After several attempts by multiple RNs I did place a right medial humerus peripheral IV. This IV unfortunately was nonfunctional and CT scan. I was able to obtain peripheral access at approximately 4:30 AM At 520 I asked if any nurses could do a ultrasound-guided IV. We will attempt this and reassess. There is a possibility of placing a line through a line company per hospitalist. Per online content developer is not available until potentially 10 or 11 AM. This point given elevated troponin and concern for PE I placed a right femoral vein central line. After central line was placed radiology called and said that they were not able to time the study probably for PE through a central line. I asked them to look at their timing protocols and adjust for the patient's needs. They said they are looking into it. ALL IMAGES (IF OBTAINED) HAVE BEEN PERSONALLY REVIEWED AND INTERPRETED BY MYSELF. EKG with normal sinus rhythm, normal axis, no STEMI. No evidence right axis deviation. Noted lateral non-specific t-wave changes that are similar to prior EKG from 2021. CBC without leukocytosis, severe anemia, no thrombocytopenia. BMP with hyperkalemia, GALINA Initial troponin elevated consistent with myocardial ischemia, will send delta troponin BNP within normal limits suggestive of no increased ventricular stretch or significant heart strain CTA chest was attempted with patient's 1 and only IV did not allow for procedureto be completed In lieu of CTA chest obtained 1 view x-ray to rule out any intrathoracic pathology I have personally reviewed the patient's chest x-ray. Chest x-ray is unremarkable for pulmonary edema, pneumothorax, pneumonia or focal cardiopulmonary abnormality. Urine tox screen negative The synthesis of the patient's history, physical exam, labs, images show evidence of myocardial ischemia. EKG was nonischemic. Elevate troponin likely demand ischemia. Low suspicion for clot occlusion at this time. Elevate troponin may be secondary to demand ischemia given GALINA. Will be due to pulmonary embolism. Given patient difficult IV access did have to place a rightfemoral vein central venous catheter. Patient was consented. Consent form was signed. Procedure: Central line placement. Indication: Venous Access Consent: Written risks of bleeding, infection, and pneumothorax were explained. A time out was completed. Maximal sterile barrier technique was used including cap, gown, sterile gloves, large sheet, hand washing and chlorhexidine prep. Anesthesia: The area anesthetized with 1% lidocaine. Procedure: The right femoral vein vein was punctured with a 19 gauge finder needle, then a wire introducer was placed, a 7 Yoruba triple lumen catheter was placed using Seldinger technique. There were no complications. Blood return waslow pressure and non-pulsatile dark blood. Line secured in place with suture, and a sterile bio-occlusive dressing was applied. Patient tolerated procedure well. The procedure was performed by Castro Lane DO The patient and/or family, caregivers express understanding. The patient and/orfamily, caregivers agrees with the plan. Shared decision making: I will have a discussion with the patient and or visitors regarding risk/benefits of further testing or admission. They will be made aware of of the risk/benefits inherent in this decision they will be given the opportunity to voice understanding. Total critical care time today provided was at least 0 minutes. This excludes separately billable procedures. Critical care time (if documented) is secondary to the patient having high probability of clinically significant/life threatening deterioration in the patient's condition which required my urgent intervention. Impression: 1. Chest pain 2. History of DVT 3. Elevated troponin 4. GALINA 5. Hyperkalemia 6. Hypoxia Dispo: Admit PCU observation Lab Data Labs: Laboratory Results - last 24 hr 08/05/23 08/05/23 03:20 05:00 WBC 6.3 RBC 4.69 Hgb 13.4 Hct 44.5 MCV 94.9 MCH 28.6 MCHC 30.1 L RDW Std Deviation 54.4 H RDW Coeff of Oleg 15.6 H Plt Count 244 MPV 10.5 Immature Gran % (Auto) 0.200 Neut % (Auto) 48.3 Lymph % (Auto) 37.6 [place] % (Auto) 7.6 Eos % (Auto) 5.7 H Baso % (Auto) 0.6 Absolute Neuts (auto) 3.1 Absolute Lymphs (auto) 2.38 Nucleated RBC % 0 Sodium 137 Potassium 5.2 H Chloride 103 Carbon Dioxide 30.0 Anion Gap 4 L BUN 28 H Creatinine 1.30 H Estim Creat Clear Calc 39.31 Est GFR (MDRD) Af Amer 53 L Est GFR (MDRD) Non-Af 43 L BUN/Creatinine Ratio 21.5 H Glucose 115 H Calcium 9.2 Troponin I High Sens 73 H B-Natriuretic Peptide 7.2 Urine Opiates Screen POSITIVE H Urine Methadone Screen NEGATIVE Ur Barbiturates Screen NEGATIVE Ur Phencyclidine Scrn NEGATIVE Ur Amphetamines Screen NEGATIVE MDMA (Ecstasy) Screen NEGATIVE U Benzodiazepines Scrn NEGATIVE Urine Cocaine Screen NEGATIVE U Cannabinoids Screen NEGATIVE Ur Drug Screen Comment Radiography Diagnostic Testing: Clinical Impression(s) from Imaging Studies Chest X-Ray 08/05/23 05:05 IMPRESSION: No evidence of acute cardiopulmonary disease. Electronically Signed: Cole Huynh DO at 5:28 EST Reading Location ID and State: [facility] / [place] Tel , Service support , Discharge Plan Triage Chief Complaint: Chest Pain ED Provider: Castro Lane Dx/Rx/DC Orders Primary Care Provider: Aquiles Jones What to do if you have Problems For any increased pain, shortness of breath, bleeding, nausea or vomiting, chestpain, or any unexpected problems, contact your Primary Care Provider. Call [facility] ([phone]) or report to the closest Emergency Room. Call 911 if necessary. 08/05/23 0753 <Electronically signed by Castro Lane DO> Cosigner Signature (if applicable): CC: Dr. Aquiles Jones MD ~ Signed ADDENDUM by Dr. Castro Lane DO on 08/05/23 at 0757 Of note during central line procedure there was approximately 1 cm linear neck placed in the right groin. This was repaired with nonabsorbable sutures given the extent and relative dirty location to prevent infection. Procedure: Laceration repair. The procedure was performed by myself. Indication: Wound repair Risks and benefits: risks, benefits and alternatives were discussed Consent: Consent was obtained. Wound Details: superficial linear defect in the right anterior groin approxi-1 cm in length less than 1 mm in depth Anesthesia: 1% lidocaine Wound prep: Patient was prepped and draped in the usual sterile fashion. Irrigation Solution: Saline Wound Preparation: Chlorhexidine The wound was explored to its base in a bloodless field. Procedure Description: Use 1-0 silk nonabsorbable suture placed in running stitch with good approximation. Patient tolerated the procedure well with no immediate complications 08/05/23 0757<Electronically signed by Castro Lane DO> Cosigner Signature (if applicable): cc: Dr. Aquiles Jones MD ~* Signed [facility] Work Phone: 1(409) 751-216111-06-2023 History and physical note Author Miguelina Castanon [facility] August 05, 2023 5:49am Note Date/Time August 05, 2023 5 :30am [facility] Medical Records Department [address] [place] [id number] H&P Exam - Hospitalist 08/05/23 0525 MR#: [id number] Acct: [id number] Name: DIANNE ALVES Rep #:[id number] : 1955 68 From: Miguelina Castanon MD PCP: Dr. Aquiles Jones MD Status:ADM I NO Location: [place] [address] HPI - General General Date of Admission: 08/05/23 Date of Service: 08/05/23 Chief Complaint: Chest pain. HPI Narrative The patient is a 68 y/o F w/ PMHx: Morbid Obesity, Chart reported thyroid disorder unclear type, PAD s/p LLE angioplasty/PCI, Hx VTE, COPD, EtOH abuse, Polysubstance abuse, Chronic Hepatitis C, HTN, Former tobacco use, Depression and Anxiety who presents to the [facility] ED on 08/05/23 with history of onset chest discomfort described as a burning and tightness in the sternal region starting approximately 1:15 AM with self administration of Mylanta without any marked improvement prompting self administration of oxycodone 5 mg without complete resolution prompting eventual ED evaluation. Notes that she was awake when the discomfort occurred and it was very short lasting rated 10 out of 10 in severityand resolved shortly after and has not recurred since. Unclear short of breath and this was unchanged. She denied any nausea or diaphoresis with this event. Patient had a rotater cuff repair on . In the ED patient administered full-strength aspirin therapy, famotidine 20 mg IV x1, Zofran 4 mg IV x1. Work-up in the ED included T96.9, heart rate 90, BP 163/85, respiratory rate 17, initially 93% on room air however desaturated to 88, improved to 96% on 2 L nasal cannula, CBC with WC 6.3, and 113.4, platelet 244 without marked shift, BMP with potassium 5.2, BUN/creatinine 28/1.30, glucose 115, troponin 73, UDS pending upon request evaluation of patient, EKG was sinus rhythm with no acute evidence of ischemia with lateral nonspecific T wave changes similar to previous, CXR with no acute evidence of ischemia. CTPA ordered upon requested evaluation of patient given patient history of onset of chest discomfort with recent rotator cuff repair on 07/30/2023 however unfortunately patient per discussion with ED physician does not have appropriate access to obtain the CT. Discussed with ED physician and given the fact that she would potentially need astress test she would likely not be able to have both a V/Q and a nuclear stresstest therefore requested ED initiate call for access placement with access company for potentially midline or other access to be placed to proceed with ED ordered CTPA as best course. [facility] Medical History (Updated 08/05/23 @ 05:[address] Miguelina Castanon MD) Alcohol abuse Chronic hepatitis C without hepatic coma Cocaine abuse COPD (chronic obstructive pulmonary disease) DVT (deep venous thrombosis) Euthyroid sick syndrome H/O cocaine abuse H/O ETOH abuse HTN (hypertension) Lumbar herniated disc Pinched nerve in neck Presence of stent in artery Smoker Thyroid disorder Home Medications albuterol sulfate 90 mcg/actuation aerosol inhaler 2 puff IH Q4H PRN PRN Wheezing 08/26/20 [History Last Taken 08/26/20] aspirin 81 mg chewable tablet 81 mg PO DAILY BLOOD CLOT 08/26/20 [History Last Taken 09/12/20] lisinopril 10 mg tablet 20 mg PO DAILY bp 08/26/20 [History Last Taken 09/12/20] tizanidine 2 mg capsule 2 mg PO Q8 PRN Muscle Spasm 08/26/20 [History Last Taken 08/26/20] atorvastatin 40 mg tablet 40 mg PO DAILY 02/07/21 [History Last Taken Unknown] furosemide 20 mg tablet 20 mg PO DAILY 10/17/22 [History Last Taken Unknown] potassium chloride 10 mEq capsule,extended release 10 meq PO DAILY 10/17/22 [History Last Taken Unknown] budesonide 160 mcg-glycopyr 9 mcg-formot 4.8 mcg/actuation HFA inhaler ([employer]ztri coUrbanizephere) 2 inh inhalation BID 02/08/23 [History Last Taken Unknown] etodolac 400 mg tablet 400 mg PO BID 02/08/23 [History Last Taken Unknown] gabapentin 300 mg capsule 300 mg PO TID nerve pain 02/08/23 [History Last Taken Unknown] ipratropium 0.5 mg-albuterol 3 mg (2.5 mg base)/3 mL nebulization soln 3 ml inhalation TID 02/08/23 [History Last Taken Unknown] meloxicam 15 mg tablet 15 mg PO DAILY 02/08/23 [History Last Taken Unknown] oxybutynin chloride 10 mg tablet,extended release 24 hr 10 mg PO DAILY 02/08/23 [History Last Taken Unknown] diclofenac sodium 1 % topical gel (Voltaren Arthritis Pain) 2 g topical BID PRN pain 02/15/23 [History Last Taken Unknown] oxycodone-acetaminophen 5 mg-325 mg tablet (Percocet) 1 tab PO Q6H PRN pain 3 days #14 tabs 02/15/23 [Rx Last Taken Unknown] oxycodone-acetaminophen 5 mg-325 mg tablet (Percocet) 1 tab PO Q6H pain 3 days #12 tabs 06/04/23 [Rx Last Taken Unknown] prednisone 20 mg tablet 60 mg (3 x 20 mg) PO DAILY #15 TABLETS 06/04/23 [Rx Last Taken Unknown] gabapentin 100 mg capsule 400 mg PO QHS 08/05/23 [History Last Taken Unknown] omeprazole 40 mg capsule,delayed release 40 mg PO DAILY 08/05/23 [History Last Taken Unknown] Allergy/AdvReac Type Severity Reaction Status Date / Time No Known Allergies Allergy Verified 08/05/23 02:19 Family History (Updated 08/05/23 @ 05:[address] Miguelina Castanon MD) Mother Hypertension Other Alcoholism other (Patient does not know her paternal family history.) Surgical History (Updated 08/05/23 @ 05:[address] Miguelina Castanon MD) H/O vascular surgery History of rotator cuff surgery Stenosis of artery of left lower extremity Social History (Updated 08/05/23 @ 05:[address] Miguelina Castanon MD) household members: none Smoking Status: Former smoker how long ago did patient quit smoking: January 2022 alcohol intake: former substance use type: former substance user Date of last use: 03/2020 and crack/cocaine caffeine: Yes Type: carbonated beverages and coffee ROS ROS Narrative Admission Review of Systems: CONSTITUTIONAL: No weight loss, fever, chills, + weakness or fatigue. HEENT: Eyes: No visual loss, blurred vision, double vision or yellow sclerae. Ears, Nose, Throat: No hearing loss, sneezing, congestion, runny nose or sore throat. SKIN: No rash or itching, lesions, wounds. CARDIOVASCULAR: + chest pain. No palpitations, edema, orthopnea, syncopal events. RESPIRATORY: + Chronic shortness of breath. No cough or sputum, wheezing, hemoptysis. GASTROINTESTINAL: No anorexia, nausea, vomiting or diarrhea, abdominal pain, melena, BRBPR. GENITOURINARY: No dysuria, frequency, urgency or retention. NEUROLOGICAL: No headache, dizziness, syncope, paralysis, ataxia, numbness or tingling in the extremities, focal weakness, change in bowel or bladder control,seizure. MUSCULOSKELETAL: + muscle, back pain, joint pain or stiffness. HEMATOLOGIC: No anemia, bleeding or bruising. LYMPHATICS: No enlarged nodes. No history of splenectomy. PSYCHIATRIC: + history of depression or anxiety. ENDOCRINOLOGIC: No reports of sweating, cold or heat intolerance. No polyuria orpolydipsia. ALLERGIES: No history of asthma, hives, eczema or rhinitis. Vital Signs Vital Signs Vital Signs: 08/05/23 02:19 08/05/23 02:19 08/05/23 02:26 Temperature 96.9 F L Temperature Source Temporal Pulse Rate 90 Respiratory Rate 17 Respiratory Effort Normal Non-Labored Blood Pressure 163/85 H Blood Pressure Mean 111 Pulse Ox 93 Oxygen Delivery Method Room Air Oxygen Flow Rate (L/min) 08/05/23 04:58 08/05/23 02:27 Temperature Temperature Source Pulse Rate 85 Respiratory Rate 15 Respiratory Effort Blood Pressure 112/97 H Blood Pressure Mean 102 Pulse Ox 96 88 Oxygen Delivery Method Nasal Cannula Room Air Oxygen Flow Rate (L/min) 2 Weight Weight: 242 lb 4.608 oz Body Mass Index (BMI) 39.1 Physical Exam Narrative Physical Examination: General: Awake, alert, oriented x 3 and cooperative, seated upright in the ED bed, denies any ongoing chest discomfort. Skin: Normal color, normal turgor, no icterus, no cyanosis. HEENT: AT/NC, EOMI, PERRLA, MMM, no carotid bruits or JVD noted. Lungs: Mildly diminished, greater bases, appropriate effort, no rales, ronchi orwheezing. Heart: Regular rate and rhythm; no gallop, rub audible. Abdomen: Soft, morbidly obese, NTTP, mildly hyperactive BS, no appreciated distention or HSM however difficult given habitus. Extremities: No cyanosis, no clubbing or marked peripheral pitting edema, statuspost recent left upper extremity rotator cuff repair with arm in sling, able to move fingers, pulses intact. Neurological: Patient awake, alert, oriented as noted, cognitive function intact; pupils equally reactive to light and accommodation, cranial nerves grossly normal, moving all 4 extremities except expected limitation left upper extremity with recent rotator cuff repair, strength accordingly moderately globally decreased. Psychiatric: Affect appears fatigued otherwise normal, no acute evidence of depressive or anxiety feelings. Results Lab / Micro Data 08/05/23 03:20 08/05/23 03:20 Labs: Laboratory Results - last 24 hr 08/05/23 03:20: WBC 6.3, RBC 4.69, Hgb 13.4, Hct 44.5, MCV 94.9, MCH 28.6, MCHC 30.1 L, RDW Std Deviation 54.4 H, RDW Coeff of Oleg 15.6 H, Plt Count 244, MPV 10.5, Immature Gran % (Auto) 0.200, Neut % (Auto) 48.3, Lymph % (Auto) 37.6, [place] % (Auto) 7.6, Eos % (Auto) 5.7 H, Baso % (Auto) 0.6, Absolute Neuts (auto) 3.1, Absolute Lymphs (auto) 2.38, Nucleated RBC % 0, Sodium 137, Potassium 5.2 H, Chloride 103, Carbon Dioxide 30.0, Anion Gap 4 L, BUN 28 H, Creatinine 1.30 H,Estim Creat Clear Calc 39.31, Est GFR (MDRD) Af Amer 53 L, Est GFR (MDRD) Non-Af43 L, BUN/Creatinine Ratio 21.5 H, Glucose 115 H, Calcium 9.2, Troponin I High Sens 73 H, B- Natriuretic Peptide 7.2 08/05/23 05:00: Ur Drug Screen Comment Assessment & Plan Assessment/Plan (1) Chest pain: PLAN: Plan The patient is a 68 y/o F w/ PMHx: Morbid Obesity, Chart reported thyroid disorder unclear type, PAD s/p LLE angioplasty/PCI, Hx VTE, COPD, EtOH abuse, Polysubstance abuse, Chronic Hepatitis C, HTN, Former tobacco use, Depression and Anxiety who presents to the [facility] ED on 08/05/23 with history of onset chest discomfort described as a burning and tightness in the sternal region starting approximately 1:15 AM with self administration of Mylanta without any marked improvement prompting self administration of oxycodone 5 mg without complete resolution prompting eventual ED evaluation. #1. Chest Pain with indeterminate cardiac enzyme with Hypoxia: EKG in ED sinus rhythm with no acute evidence of ischemia with lateral nonspecific T wave changes similar to previous, CTPA pending upon request evaluation of patient, initial trop 73. Will admit to PCU, place on a monitored bed to assure no acute myocardial infarction with serial cardiac enzymes and EKGs. CTPA unable to be obtained secondary to lack of access per discussion with ED physician. [employer] consulted and pending. Will obtain CTPA once access appropriately placedand if negative for any emboli or etiology precluding stress and repeat serial cardiac enzymes remain at least similar and did not further markedly elevate with also similar EKGs would need to then pursue a.m. cardiac stress testing. Magnesium level requested. FLP in AM. ECHO requested. Urine drug screen requested. ASA, NG. #2. Chronic COPD: Will continue oxygen supplementation with wean as tolerated to room air, new ATC DuoNeb therapy as well as temporally hold Breztri treatmentand transition to ATC budesonide therapy, PRN albuterol, HOB, IS parameters. #3. Hypokalemia: Potassium 5.2, minimally elevated, continue to just hydration,repeat BMP in AM. #4. History of polysubstance abuse with chronic hepatitis C: Reportedly clean since 03/2020 with history of crack and cocaine usage, urine drug screen pending,unclear exact treatment history for hepatitis C. #5. History of alcohol abuse: Reportedly sober, encourage continued sobriety. #6. PAD: History of lower extremity angioplasty/PCI, will continue aspirin, statin, hypertensive regimen as noted. #7. Hypertension: Continue home regimen including lisinopril, Lasix, PRN hydralazine. #8. Hyperlipidemia: We will continue patient on statin therapy, FLP in AM. #9. Former tobacco use: Encourage continued tobacco cessation. #10. Morbid Obesity: Weight loss and lifestyle changes encouraged. #11. Chart reported thyroid disorder, unclear type: Clarify medications but currently does not appear to be on any thyroid medications, TSH and free T4 requested. #12. Anxiety and depression: Per current list not on any chronic regimen, encourage continued outpatient follow-up and evaluation. #13. History of VTE: Patient with chart reported history of previous DVT, not currently chronically anticoagulated. #14. DVT prophylaxis: Lovenox, therapeutic dosing given awaiting CTPA with concern for pulmonary emboli as potential chest pain etiology given high risk with recent operative intervention however if CTPA is negative for PE then will de-escalate to chemoprophylactic dosing only. #15. CODE STATUS: Full code. Charges/Coding Visit Charges Inpatient E&M: 80266 Init Hosp L2 08/05/23 0549 <Electronically signed by Miguelina Castanon MD> Cosigner Signature (if applicable): CC: Dr. Miguelina Castanon MD; Dr. Aquiles Jones MD~ Signed [facility] Work Phone: [phone]) [phone] History and physical note Author Miguelina Castanon [facility] August 05, 2023 5:49am Note Date/Time August 05, 2023 5 :30am [facility] Medical Records Department [address] [place] [address] H&P Exam - Hospitalist 08/05/23 0525 MR#: [id number] Acct: [id number] Name: DIANNE ALVES Rep #:[id number] : 1955 68 From: Miguelina Castanon MD PCP: Dr. Aquiles Jones MD Status:ADM I NO Location: [place] [address] HPI - General General Date of Admission: 08/05/23 Date of Service: 08/05/23 Chief Complaint: Chest pain. HPI Narrative The patient is a 68 y/o F w/ PMHx: Morbid Obesity, Chart reported thyroid disorder unclear type, PAD s/p LLE angioplasty/PCI, Hx VTE, COPD, EtOH abuse, Polysubstance abuse, Chronic Hepatitis C, HTN, Former tobacco use, Depression and Anxiety who presents to the [facility] ED on 08/05/23 with history of onset chest discomfort described as a burning and tightness in the sternal region starting approximately 1:15 AM with self administration of Mylanta without any marked improvement prompting self administration of oxycodone 5 mg without complete resolution prompting eventual ED evaluation. Notes that she was awake when the discomfort occurred and it was very short lasting rated 10 out of 10 in severityand resolved shortly after and has not recurred since. Unclear short of breath and this was unchanged. She denied any nausea or diaphoresis with this event. [facility] In the ED patient administered full-strength aspirin therapy, famotidine 20 mg IV x1, Zofran 4 mg IV x1. Work-up in the ED included T96.9, heart rate 90, BP 163/85, respiratory rate 17, initially 93% on room air however desaturated to 88, improved to 96% on 2 L nasal cannula, CBC with WC 6.3, and 113.4, platelet 244 without marked shift, BMP with potassium 5.2, BUN/creatinine 28/1.30, glucose 115, troponin 73, UDS pending upon request evaluation of patient, EKG was sinus rhythm with no acute evidence of ischemia with lateral nonspecific T wave changes similar to previous, CXR with no acute evidence of ischemia. CTPA ordered upon requested evaluation of patient given patient history of onset of chest discomfort with recent rotator cuff repair on 07/30/2023 however unfortunately patient per discussion with ED physician does not have appropriate access to obtain the CT. Discussed with ED physician and given the fact that she would potentially need astress test she would likely not be able to have both a V/Q and a nuclear stresstest therefore requested ED initiate call for access placement with access company for potentially midline or other access to be placed to proceed with ED ordered CTPA as best course. [facility] Medical History (Updated 08/05/23 @ 05:[address] Miguelina Castanon MD) Alcohol abuse Chronic hepatitis C without hepatic coma Cocaine abuse COPD (chronic obstructive pulmonary disease) DVT (deep venous thrombosis) Euthyroid sick syndrome H/O cocaine abuse H/O ETOH abuse HTN (hypertension) Lumbar herniated disc Pinched nerve in neck Presence of stent in artery Smoker Thyroid disorder Home Medications albuterol sulfate 90 mcg/actuation aerosol inhaler 2 puff IH Q4H PRN PRN Wheezing 08/26/20 [History Last Taken 08/26/20] aspirin 81 mg chewable tablet 81 mg PO DAILY BLOOD CLOT 08/26/20 [History Last Taken 09/12/20] lisinopril 10 mg tablet 20 mg PO DAILY bp 08/26/20 [History Last Taken 09/12/20] tizanidine 2 mg capsule 2 mg PO Q8 PRN Muscle Spasm 08/26/20 [History Last Taken 08/26/20] atorvastatin 40 mg tablet 40 mg PO DAILY 02/07/21 [History Last Taken Unknown] furosemide 20 mg tablet 20 mg PO DAILY 10/17/22 [History Last Taken Unknown] potassium chloride 10 mEq capsule,extended release 10 meq PO DAILY 10/17/22 [History Last Taken Unknown] budesonide 160 mcg-glycopyr 9 mcg-formot 4.8 mcg/actuation HFA inhaler ([employer]) 2 inh inhalation BID 02/08/23 [History Last Taken Unknown] etodolac 400 mg tablet 400 mg PO BID 02/08/23 [History Last Taken Unknown] gabapentin 300 mg capsule 300 mg PO TID nerve pain 02/08/23 [History Last Taken Unknown] ipratropium 0.5 mg-albuterol 3 mg (2.5 mg base)/3 mL nebulization soln 3 ml inhalation TID 02/08/23 [History Last Taken Unknown] meloxicam 15 mg tablet 15 mg PO DAILY 02/08/23 [History Last Taken Unknown] oxybutynin chloride 10 mg tablet,extended release 24 hr 10 mg PO DAILY 02/08/23 [History Last Taken Unknown] diclofenac sodium 1 % topical gel (Voltaren Arthritis Pain) 2 g topical BID PRN pain 02/15/23 [History Last Taken Unknown] oxycodone-acetaminophen 5 mg-325 mg tablet (Percocet) 1 tab PO Q6H PRN pain 3 days #14 tabs 02/15/23 [Rx Last Taken Unknown] oxycodone-acetaminophen 5 mg-325 mg tablet (Percocet) 1 tab PO Q6H pain 3 days #12 tabs 06/04/23 [Rx Last Taken Unknown] prednisone 20 mg tablet 60 mg (3 x 20 mg) PO DAILY #15 TABLETS 06/04/23 [Rx Last Taken Unknown] gabapentin 100 mg capsule 400 mg PO QHS 08/05/23 [History Last Taken Unknown] omeprazole 40 mg capsule,delayed release 40 mg PO DAILY 08/05/23 [History Last Taken Unknown] Allergy/AdvReac Type Severity Reaction Status Date / Time No Known Allergies Allergy Verified 08/05/23 02:19 Family History (Updated 08/05/23 @ 05:[address] Miguelina Castanon MD) Mother Hypertension Other Alcoholism other (Patient does not know her paternal family history.) Surgical History (Updated 08/05/23 @ 05:[address] Miguelina Castanon MD) H/O vascular surgery History of rotator cuff surgery Stenosis of artery of left lower extremity Social History (Updated 08/05/23 @ 05:[address] Miguelina Castanon MD) household members: none Smoking Status: Former smoker how long ago did patient quit smoking: January 2022 alcohol intake: former substance use type: former substance user Date of last use: 03/2020 and crack/cocaine caffeine: Yes Type: carbonated beverages and coffee ROS ROS Narrative Admission Review of Systems: CONSTITUTIONAL: No weight loss, fever, chills, + weakness or fatigue. HEENT: Eyes: No visual loss, blurred vision, double vision or yellow sclerae. Ears, Nose, Throat: No hearing loss, sneezing, congestion, runny nose or sore throat. SKIN: No rash or itching, lesions, wounds. CARDIOVASCULAR: + chest pain. No palpitations, edema, orthopnea, syncopal events. RESPIRATORY: + Chronic shortness of breath. No cough or sputum, wheezing, hemoptysis. GASTROINTESTINAL: No anorexia, nausea, vomiting or diarrhea, abdominal pain, melena, BRBPR. GENITOURINARY: No dysuria, frequency, urgency or retention. NEUROLOGICAL: No headache, dizziness, syncope, paralysis, ataxia, numbness or tingling in the extremities, focal weakness, change in bowel or bladder control,seizure. MUSCULOSKELETAL: + muscle, back pain, joint pain or stiffness. HEMATOLOGIC: No anemia, bleeding or bruising. LYMPHATICS: No enlarged nodes. No history of splenectomy. PSYCHIATRIC: + history of depression or anxiety. ENDOCRINOLOGIC: No reports of sweating, cold or heat intolerance. No polyuria orpolydipsia. ALLERGIES: No history of asthma, hives, eczema or rhinitis. Vital Signs Vital Signs Vital Signs: 08/05/23 02:19 08/05/23 02:19 08/05/23 02:26 Temperature 96.9 F L Temperature Source Temporal Pulse Rate 90 Respiratory Rate 17 Respiratory Effort Normal Non-Labored Blood Pressure 163/85 H Blood Pressure Mean 111 Pulse Ox 93 Oxygen Delivery Method Room Air Oxygen Flow Rate (L/min) 08/05/23 04:58 08/05/23 02:27 Temperature Temperature Source Pulse Rate 85 Respiratory Rate 15 Respiratory Effort Blood Pressure 112/97 H Blood Pressure Mean 102 Pulse Ox 96 88 Oxygen Delivery Method Nasal Cannula Room Air Oxygen Flow Rate (L/min) 2 Weight Weight: 242 lb 4.608 oz Body Mass Index (BMI) 39.1 Physical Exam Narrative Physical Examination: General: Awake, alert, oriented x 3 and cooperative, seated upright in the ED bed, denies any ongoing chest discomfort. Skin: Normal color, normal turgor, no icterus, no cyanosis. HEENT: AT/NC, EOMI, PERRLA, MMM, no carotid bruits or JVD noted. Lungs: Mildly diminished, greater bases, appropriate effort, no rales, ronchi orwheezing. Heart: Regular rate and rhythm; no gallop, rub audible. Abdomen: Soft, morbidly obese, NTTP, mildly hyperactive BS, no appreciated distention or HSM however difficult given habitus. Extremities: No cyanosis, no clubbing or marked peripheral pitting edema, statuspost recent left upper extremity rotator cuff repair with arm in sling, able to move fingers, pulses intact. Neurological: Patient awake, alert, oriented as noted, cognitive function intact; pupils equally reactive to light and accommodation, cranial nerves grossly normal, moving all 4 extremities except expected limitation left upper extremity with recent rotator cuff repair, strength accordingly moderately globally decreased. Psychiatric: Affect appears fatigued otherwise normal, no acute evidence of depressive or anxiety feelings. Results Lab / Micro Data 08/05/23 03:20 08/05/23 03:20 Labs: Laboratory Results - last 24 hr 08/05/23 03:20: WBC 6.3, RBC 4.69, Hgb 13.4, Hct 44.5, MCV 94.9, MCH 28.6, MCHC 30.1 L, RDW Std Deviation 54.4 H, RDW Coeff of Oleg 15.6 H, Plt Count 244, MPV 10.5, Immature Gran % (Auto) 0.200, Neut % (Auto) 48.3, Lymph % (Auto) 37.6, [place] % (Auto) 7.6, Eos % (Auto) 5.7 H, Baso % (Auto) 0.6, Absolute Neuts (auto) 3.1, Absolute Lymphs (auto) 2.38, Nucleated RBC % 0, Sodium 137, Potassium 5.2 H, Chloride 103, Carbon Dioxide 30.0, Anion Gap 4 L, BUN 28 H, Creatinine 1.30 H,Estim Creat Clear Calc 39.31, Est GFR (MDRD) Af Amer 53 L, Est GFR (MDRD) Non-Af43 L, BUN/Creatinine Ratio 21.5 H, Glucose 115 H, Calcium 9.2, Troponin I High Sens 73 H, B- Natriuretic Peptide 7.2 08/05/23 05:00: Ur Drug Screen Comment Assessment & Plan Assessment/Plan (1) Chest pain: PLAN: Plan The patient is a 68 y/o F w/ PMHx: Morbid Obesity, Chart reported thyroid disorder unclear type, PAD s/p LLE angioplasty/PCI, Hx VTE, COPD, EtOH abuse, Polysubstance abuse, Chronic Hepatitis C, HTN, Former tobacco use, Depression and Anxiety who presents to the [facility] ED on 08/05/23 with history of onset chest discomfort described as a burning and tightness in the sternal region starting approximately 1:15 AM with self administration of Mylanta without any marked improvement prompting self administration of oxycodone 5 mg without complete resolution prompting eventual ED evaluation. #1. Chest Pain with indeterminate cardiac enzyme with Hypoxia: EKG in ED sinus rhythm with no acute evidence of ischemia with lateral nonspecific T wave changes similar to previous, CTPA pending upon request evaluation of patient, initial trop 73. Will admit to PCU, place on a monitored bed to assure no acute myocardial infarction with serial cardiac enzymes and EKGs. CTPA unable to be obtained secondary to lack of access per discussion with ED physician. Access company consulted and pending. Will obtain CTPA once access appropriately placedand if negative for any emboli or etiology precluding stress and repeat serial cardiac enzymes remain at least similar and did not further markedly elevate with also similar EKGs would need to then pursue a.m. cardiac stress testing. Magnesium level requested. FLP in AM. ECHO requested. Urine drug screen requested. ASA, NG. #2. Chronic COPD: Will continue oxygen supplementation with wean as tolerated to room air, new ATC DuoNeb therapy as well as temporally hold Breztri treatmentand transition to ATC budesonide therapy, PRN albuterol, HOB, IS parameters. #3. Hypokalemia: Potassium 5.2, minimally elevated, continue to just hydration,repeat BMP in AM. #4. History of polysubstance abuse with chronic hepatitis C: Reportedly clean since 03/2020 with history of crack and cocaine usage, urine drug screen pending,unclear exact treatment history for hepatitis C. #5. History of alcohol abuse: Reportedly sober, encourage continued sobriety. #6. PAD: History of lower extremity angioplasty/PCI, will continue aspirin, statin, hypertensive regimen as noted. #7. Hypertension: Continue home regimen including lisinopril, Lasix, PRN hydralazine. #8. Hyperlipidemia: We will continue patient on statin therapy, FLP in AM. #9. Former tobacco use: Encourage continued tobacco cessation. #10. Morbid Obesity: Weight loss and lifestyle changes encouraged. #11. Chart reported thyroid disorder, unclear type: Clarify medications but currently does not appear to be on any thyroid medications, TSH and free T4 requested. #12. Anxiety and depression: Per current list not on any chronic regimen, encourage continued outpatient follow-up and evaluation. #13. History of VTE: Patient with chart reported history of previous DVT, not currently chronically anticoagulated. #14. DVT prophylaxis: Lovenox, therapeutic dosing given awaiting CTPA with concern for pulmonary emboli as potential chest pain etiology given high risk with recent operative intervention however if CTPA is negative for PE then will de-escalate to chemoprophylactic dosing only. #15. CODE STATUS: Full code. Charges/Coding Visit Charges Inpatient E&M: 65992 Init Hosp L2 08/05/23 0549 <Electronically signed by Miguelina Castanon MD> Cosigner Signature (if applicable): CC: Dr. Miguelina Castanon MD; Dr. Aquiles Jones MD~ Signed [facility] Work Phone: 1(580) 798-795611-06-2023 Discharge summary Author [facility] August 05, 2023 7:57am Note Date/Time August 05, 2023 2 :22am [facility] Medical Records Department [address] [place] [id number] Emergency Department Summary 08/05/23 MR#: [id number] Acct: [id number] Name: DIANNE ALVES Rep #:[id number] : 1955 68 From: Castro Guallpa PCP: Dr. Aquiles Jones MD Status:ADM I NO Location: [address] History of Present Illness Chief Complaint: Chest Pain PFSH [facility] Medical History (Updated 08/05/23 @ 05:[address] Miguelina Castanon MD) Alcohol abuse Chronic hepatitis C without hepatic coma Cocaine abuse COPD (chronic obstructive pulmonary disease) DVT (deep venous thrombosis) Euthyroid sick syndrome H/O cocaine abuse H/O ETOH abuse HTN (hypertension) Lumbar herniated disc Pinched nerve in neck Presence of stent in artery Smoker Thyroid disorder Home Medications albuterol sulfate 90 mcg/actuation aerosol inhaler 2 puff IH Q4H PRN PRN Wheezing 08/26/20 [History Last Taken 08/26/20] aspirin 81 mg chewable tablet 81 mg PO DAILY BLOOD CLOT 08/26/20 [History Last Taken 09/12/20] lisinopril 10 mg tablet 20 mg PO DAILY bp 08/26/20 [History Last Taken 09/12/20] tizanidine 2 mg capsule 2 mg PO Q8 PRN Muscle Spasm 08/26/20 [History Last Taken 08/26/20] atorvastatin 40 mg tablet 40 mg PO DAILY 02/07/21 [History Last Taken Unknown] furosemide 20 mg tablet 20 mg PO DAILY 10/17/22 [History Last Taken Unknown] potassium chloride 10 mEq capsule,extended release 10 meq PO DAILY 10/17/22 [History Last Taken Unknown] budesonide 160 mcg-glycopyr 9 mcg-formot 4.8 mcg/actuation HFA inhaler (Breztri Aerosphere) 2 inh inhalation BID 02/08/23 [History Last Taken Unknown] etodolac 400 mg tablet 400 mg PO BID 02/08/23 [History Last Taken Unknown] gabapentin 300 mg capsule 300 mg PO TID nerve pain 02/08/23 [History Last Taken Unknown] ipratropium 0.5 mg-albuterol 3 mg (2.5 mg base)/3 mL nebulization soln 3 ml inhalation TID 02/08/23 [History Last Taken Unknown] meloxicam 15 mg tablet 15 mg PO DAILY 02/08/23 [History Last Taken Unknown] oxybutynin chloride 10 mg tablet,extended release 24 hr 10 mg PO DAILY 02/08/23 [History Last Taken Unknown] diclofenac sodium 1 % topical gel (Voltaren Arthritis Pain) 2 g topical BID PRN pain 02/15/23 [History Last Taken Unknown] oxycodone-acetaminophen 5 mg-325 mg tablet (Percocet) 1 tab PO Q6H PRN pain 3 days #14 tabs 02/15/23 [Rx Last Taken Unknown] oxycodone-acetaminophen 5 mg-325 mg tablet (Percocet) 1 tab PO Q6H pain 3 days #12 tabs 06/04/23 [Rx Last Taken Unknown] prednisone 20 mg tablet 60 mg (3 x 20 mg) PO DAILY #15 TABLETS 06/04/23 [Rx Last Taken Unknown] gabapentin 100 mg capsule 400 mg PO QHS 08/05/23 [History Last Taken Unknown] omeprazole 40 mg capsule,delayed release 40 mg PO DAILY 08/05/23 [History Last Taken Unknown] Allergy/AdvReac Type Severity Reaction Status Date / Time No Known Allergies Allergy Verified 08/05/23 02:19 Family History (Updated 08/05/23 @ 05:[address] Miguelina Castanon MD) Mother Hypertension Other Alcoholism Surgical History (Updated 08/05/23 @ 05:[address] Miguelina Castanon MD) H/O vascular surgery History of rotator cuff surgery Stenosis of artery of left lower extremity Social History (Updated 08/05/23 @ 05:[address] Miguelina Castanon MD) household members: none Smoking Status: Former smoker how long ago did patient quit smoking: January 2022 alcohol intake: former substance use type: former substance user Date of last use: 03/2020 and crack/cocaine caffeine: Yes Type: carbonated beverages and coffee EXAM Physical Exam Const Vital Signs: 08/05/23 02:19 08/05/23 02:19 08/05/23 02:26 Temperature 96.9 F L Temperature Source Temporal Pulse Rate 90 Respiratory Rate 17 Respiratory Effort Normal Non-Labored Blood Pressure 163/85 H Blood Pressure Mean 111 Pulse Ox 93 Oxygen Delivery Method Room Air Oxygen Flow Rate (L/min) 08/05/23 04:58 08/05/23 02:27 Temperature Temperature Source Pulse Rate 85 Respiratory Rate 15 Respiratory Effort Blood Pressure 112/97 H Blood Pressure Mean 102 Pulse Ox 96 88 Oxygen Delivery Method Nasal Cannula Room Air Oxygen Flow Rate (L/min) 2 MDM MDM MDM Narrative Medical decision making narrative: HISTORY OF PRESENT ILLNESS: 68-year-old female here with concern for chest pain. Notes pain started approximately 1 hour prior to arrival. It is sharp. It is not pressure-like and is not associate with shortness of breath. She denies taking blood thinners. She denies any recent cocaine use. Denies any recent sick contacts or illnesses. No cough or fever. The patient denies recent surgery in the last 4 weeks or immobilization in the last 3 days, denies previous diagnosis of DVT or PE, hemoptysis, unilateral leg swelling or malignancy with treatment the last 6 months or palliative. No estrogen use noted. Patient denies sudden onset of pain, no tearing sensation, no migratory symptoms, no new numbness, weakness or loss of sensation. Patient denies family history or personal history of Connective tissue disorders (Marfan's Syndrome, Adilia Danlos etc) REVIEW OF SYSTEMS: Pertinent positives: Chest pain Pertinent negatives: Shortness of breath, cough, leg swelling, unilateral leg swelling or weakness PHYSICAL EXAM: Nursing triage notes reviewed, Vital signs reviewed Constitutional: please see mdm HENT: MMM Eyes: Pupils equal round and reactive to light, Extraocular muscles intact Neck: No stridor, no JVD, full neck ROM Lungs: Clear to auscultation, No wheezing or rales. No increased work of breathing, no conversational dyspnea, no accessory muscle use, no nasal flaring. No respiratory distress noted Heart: Regular rate and rhythm, No murmurs, No rubs and No gallops, 2+ distal pulses (radial, femoral, posterior tibial) in all extremities Abdomen: Soft, there is no tenderness, rigidity, rebound or guarding, no obviousperitoneal signs, no palpable pulsatile abdominal masses, no auscultated abdominal bruit : No CVAT Extremities: No edema Neuro: No focal neurological deficits, cranial nerves II through XII intact, 5/5strength in all extremities. Intact sensation to light touch in all extremities,2+ reflexes bilateral patella tendons. Normal gait. No ataxia. Skin: Surgical site of left shoulder is clean dry intact with no focal induration or signs of infection. MEDICAL DECISION MAKING: Chief Complaint: Chest pain External records reviewed: Prior echocardiogram reviewed. Last ejection fraction 69% Factors affecting care: COPD, history of DVT, history of peripheral artery disease, hyperlipidemia, attention history of possible abuse including cocaine Social determinants of health: History of cocaine use History obtained from others: EMS Consults: Internal medicine (Dr. Castanon) [facility] Narrative: Patient was hemodynamically stable, afebrile, nontoxic-appearing. Exam without focal cardiopulmonary normalities. I considered the following differential diagnosis: ACS, arrhythmia, anemia, PE, cocaine induced chest pain, aortic dissection While the patient did not complain of pleuritic chest pain she did have history of DVT and recent surgery which increase her risk for PE substantially. Given this I obtained a CT scan of the chest with contrast. Patient was difficult to gain IV access on. I assess patient's willingness to continue with IV access. Patient is willing to continue IV access despite significant pain. Had a conversation with online content developer, RN for the patient about IV access. Occurredapproximately 3 AM. Checked in again at 3:10 AM. At this time patient is awaiting using the bathroom we will attempt to try obtain IV access once again. After several attempts by multiple RNs I did place a right medial humerus peripheral IV. This IV unfortunately was nonfunctional and CT scan. I was able to obtain peripheral access at approximately 4:30 AM At 520 I asked if any nurses could do a ultrasound-guided IV. We will attempt this and reassess. There is a possibility of placing a line through a line company per hospitalist. Per online content developer is not available until potentially 10 or 11 AM. This point given elevated troponin and concern for PE I placed a right femoral vein central line. After central line was placed radiology called and said that they were not able to time the study probably for PE through a central line. I asked them to look at their timing protocols and adjust for the patient's needs. They said they are looking into it. ALL IMAGES (IF OBTAINED) HAVE BEEN PERSONALLY REVIEWED AND INTERPRETED BY MYSELF. EKG with normal sinus rhythm, normal axis, no STEMI. No evidence right axis deviation. Noted lateral non-specific t-wave changes that are similar to prior EKG from 2021. CBC without leukocytosis, severe anemia, no thrombocytopenia. BMP with hyperkalemia, GALINA Initial troponin elevated consistent with myocardial ischemia, will send delta troponin BNP within normal limits suggestive of no increased ventricular stretch or significant heart strain CTA chest was attempted with patient's 1 and only IV did not allow for procedureto be completed In lieu of CTA chest obtained 1 view x-ray to rule out any intrathoracic pathology I have personally reviewed the patient's chest x-ray. Chest x-ray is unremarkable for pulmonary edema, pneumothorax, pneumonia or focal cardiopulmonary abnormality. Urine tox screen negative The synthesis of the patient's history, physical exam, labs, images show evidence of myocardial ischemia. EKG was nonischemic. Elevate troponin likely demand ischemia. Low suspicion for clot occlusion at this time. Elevate troponin may be secondary to demand ischemia given GALINA. Will be due to pulmonary embolism. Given patient difficult IV access did have to place a rightfemoral vein central venous catheter. Patient was consented. Consent form was signed. Procedure: Central line placement. Indication: Venous Access Consent: Written risks of bleeding, infection, and pneumothorax were explained. A time out was completed. Maximal sterile barrier technique was used including cap, gown, sterile gloves, large sheet, hand washing and chlorhexidine prep. Anesthesia: The area anesthetized with 1% lidocaine. Procedure: The right femoral vein vein was punctured with a 19 gauge finder needle, then a wire introducer was placed, a 7 Yoruba triple lumen catheter was placed using Seldinger technique. There were no complications. Blood return waslow pressure and non-pulsatile dark blood. Line secured in place with suture, and a sterile bio-occlusive dressing was applied. Patient tolerated procedure well. The procedure was performed by Castro Lane DO The patient and/or family, caregivers express understanding. The patient and/orfamily, caregivers agrees with the plan. Shared decision making: I will have a discussion with the patient and or visitors regarding risk/benefits of further testing or admission. They will be made aware of of the risk/benefits inherent in this decision they will be given the opportunity to voice understanding. Total critical care time today provided was at least 0 minutes. This excludes separately billable procedures. Critical care time (if documented) is secondary to the patient having high probability of clinically significant/life threatening deterioration in the patient's condition which required my urgent intervention. Impression: 1. Chest pain 2. History of DVT 3. Elevated troponin 4. GALINA 5. Hyperkalemia 6. Hypoxia Dispo: Admit PCU observation Lab Data Labs: Laboratory Results - last 24 hr 08/05/23 08/05/23 03:20 05:00 WBC 6.3 RBC 4.69 Hgb 13.4 Hct 44.5 MCV 94.9 MCH 28.6 MCHC 30.1 L RDW Std Deviation 54.4 H RDW Coeff of Oleg 15.6 H Plt Count 244 MPV 10.5 Immature Gran % (Auto) 0.200 Neut % (Auto) 48.3 Lymph % (Auto) 37.6 [place] % (Auto) 7.6 Eos % (Auto) 5.7 H Baso % (Auto) 0.6 Absolute Neuts (auto) 3.1 Absolute Lymphs (auto) 2.38 Nucleated RBC % 0 Sodium 137 Potassium 5.2 H Chloride 103 Carbon Dioxide 30.0 Anion Gap 4 L BUN 28 H Creatinine 1.30 H Estim Creat Clear Calc 39.31 Est GFR (MDRD) Af Amer 53 L Est GFR (MDRD) Non-Af 43 L BUN/Creatinine Ratio 21.5 H Glucose 115 H Calcium 9.2 Troponin I High Sens 73 H B-Natriuretic Peptide 7.2 Urine Opiates Screen POSITIVE H Urine Methadone Screen NEGATIVE Ur Barbiturates Screen NEGATIVE Ur Phencyclidine Scrn NEGATIVE Ur Amphetamines Screen NEGATIVE MDMA (Ecstasy) Screen NEGATIVE U Benzodiazepines Scrn NEGATIVE Urine Cocaine Screen NEGATIVE U Cannabinoids Screen NEGATIVE Ur Drug Screen Comment Radiography Diagnostic Testing: Clinical Impression(s) from Imaging Studies Chest X-Ray 08/05/23 05:05 IMPRESSION: No evidence of acute cardiopulmonary disease. Electronically Signed: Cole HuynhDO at 5:28 EST Reading Location ID and State: [facility] / [place] Tel , Service support , Discharge Plan Triage Chief Complaint: Chest Pain ED Provider: Castro Lane Dx/Rx/DC Orders Primary Care Provider: Aquiles Jones What to do if you have Problems For any increased pain, shortness of breath, bleeding, nausea or vomiting, chestpain, or any unexpected problems, contact your Primary Care Provider. Call [facility] ([phone]) or report to the closest Emergency Room. Call 911 if necessary. 08/05/23752 <Electronically signed by Castro Lane DO> Cosigner Signature (if applicable): CC: Dr. Aquiles Jones MD ~ Signed ADDENDUM by Dr. Castro Lane DO on 08/05/23 at 0757 Of note during central line procedure there was approximately 1 cm linear neck placed in the right groin. This was repaired with nonabsorbable sutures given the extent and relative dirty location to prevent infection. Procedure: Laceration repair. The procedure was performed by myself. Indication: Wound repair Risks and benefits: risks, benefits and alternatives were discussed Consent: Consent was obtained. Wound Details: superficial linear defect in the right anterior groin approxi-1 cm in length less than 1 mm in depth Anesthesia: 1% lidocaine Wound prep: Patient was prepped and draped in the usual sterile fashion. Irrigation Solution: Saline Wound Preparation: Chlorhexidine The wound was explored to its base in a bloodless field. Procedure Description: Use 1-0 silk nonabsorbable suture placed in running stitch with good approximation. Patient tolerated the procedure well with no immediate complications 08/05/23756<Electronically signed by Castro Lane DO> Cosigner Signature (if applicable): cc: Dr. Aquiles Jones MD ~* Signed [facility] Work Phone: 1([phone]) 979-431809-25-2023 Discharge summary Author Felicitas Harris [facility] June 24, 2023 11:10am Note Date/Time June 24, 2023 11:10am [facility] Occupational Therapy [facility] [address] [place] [address] / REHABILITATION SERVICES DISCHARGE SUMMARY MR#: [id number] Acct: [id number] Name: DIANNE ALVES Rep #: [id number] : 1955 68 From: Felicitas Harris OTR/L, CHT Referring Dr.: Dr. Capo Yu MD Status: REG RCR Eval Date: Discharge Date: Discharge Summary D/C Summary: It has been my pleasure to treat DIANNE ALVES under orders from Dr.Bradley Gigi MD, for the diagnosis of left wrist fx, with routine healing, subsequent encounter for a total of 12 visit(s). Please see the following information for a summary of their discharge status. Overall Improvement % Improvement: 50 Objective Objective/Function: left wrist 55/45 initial was 35/50 left electric serviceman 35# increase from initial 6# left lateral pinch 16# initial 4# left tripod pinch 8# initial 8# pt states she feels like she gets hand spasms from time to time. pt states she continues to get pain in wrist/ thumb area - ( pt points to [facility] region ) pt also states she gets spasms in left hand. Goals Patient Goals: Decrease Pain, Improve Fine Motor Skills, Use Hand/Wrist/Arm Normally Again, Decrease Tingling/Numbness, Increase ROM, Decrease Sensitivity and Resume Former Household Responsibilities (Cooking,Cleaning,Yard, etc.) Goal:100% adherence to protocol: Yes Goal:Daily scar massage when approriate: Yes Goal:ROM equal to unaffected hand: Yes Goal:Neighborhood Planner/Pinch strength at least 75% of unaffected hand: Yes Goal:No pain with affected hand use: Yes Goal:Full use of affected hand in daily activities including work: Yes Goal:Decrease scar hypersensitivity: Yes Plan Plan: D/C D/C Information Discharge Comments: pt states she has concerns with muscle spasms in left hand and pain in left thumb. refer to pt return Dr. pt did meet initial established goals of left wrist. pt agrees to call and return to discuss pain of left thumb and muscle spasms. d/c sentence: If there are questions or concerns regarding this patient's occupational therapy, please fell free to call me at [phone]. Thank you for the referral of this patient. Sincerely, Felicitas Harris, OTR/L, CHT <Electronically signed by Felicitas Harris OTR/L, CHT> 06/24/23 1110 CC: [employer] ELI BRAGG; Dr. Capo Yu MD ~ MK Signed [facility] Work Phone: 1([phone]) 610-626409-05-2023 Discharge summary Author Lucas Marshall [facility] June 04, 2023 3:14pm Note Date/Time June 04, 2023 2:03pm [facility] Medical Records Department [address] [place] [address] Emergency Department Summary 06/04/23 MR#: [id number] Acct: [id number] Name: DIANNE ALVES Rep #:[id number] : 1955 68 From: Lucas Penny PCP: CHICO DREW Status:REG ER Location: ED HPI History of Present Illness Chief Complaint: Back Informant: patient Narrative Narrative: Here with daughter nontraumatic right hip pain since yesterday. On meloxicam last dose this morning. Status post left ORIF of the wrist in February from [facility]. States his residual tingling to her thumb. No new injuries. Patient able to ambulate however has difficulty. Does not Delisa with assistance. Chronic 2 L oxygen with COPD history. Previous on oxycodone's postsurgery. No history of gastric ulcers or kidney injury. Prior similar symptoms: No PFSH PFSH Medical History Alcohol abuse Chest pain Chronic hepatitis C without hepatic coma Cocaine abuse COPD (chronic obstructive pulmonary disease) DVT (deep venous thrombosis) Euthyroid sick syndrome H/O cocaine abuse H/O ETOH abuse HTN (hypertension) Lumbar herniated disc Pinched nerve in neck Presence of stent in artery Smoker Thyroid disorder Home Medications albuterol sulfate 90 mcg/actuation aerosol inhaler 2 puff IH Q4H PRN PRN Wheezing 08/26/20 [History Last Taken 08/26/20] aspirin 81 mg chewable tablet 81 mg PO DAILY BLOOD CLOT 08/26/20 [History Last Taken 09/12/20] lisinopril 10 mg tablet 10 mg PO DAILY bp 08/26/20 [History Last Taken 09/12/20] tizanidine 2 mg capsule 2 mg PO Q8 PRN Muscle Spasm 08/26/20 [History Last Taken 08/26/20] atorvastatin 40 mg tablet 40 mg PO DAILY 02/07/21 [History Last Taken Unknown] furosemide 20 mg tablet 20 mg PO DAILY 10/17/22 [History Last Taken Unknown] potassium chloride 10 mEq capsule,extended release 10 meq PO DAILY 10/17/22 [History Last Taken Unknown] budesonide 160 mcg-glycopyr 9 mcg-formot 4.8 mcg/actuation HFA inhaler ([employer]ztri coUrbanizephere) 2 inh inhalation BID 02/08/23 [History Last Taken Unknown] etodolac 400 mg tablet 400 mg PO BID 02/08/23 [History Last Taken Unknown] gabapentin 300 mg capsule 300 mg PO TID nerve pain 02/08/23 [History Last Taken Unknown] ipratropium 0.5 mg-albuterol 3 mg (2.5 mg base)/3 mL nebulization soln 3 ml inhalation TID 02/08/23 [History Last Taken Unknown] meloxicam 15 mg tablet 15 mg PO DAILY 02/08/23 [History Last Taken Unknown] oxybutynin chloride 10 mg tablet,extended release 24 hr 10 mg PO DAILY 02/08/23 [History Last Taken Unknown] diclofenac sodium 1 % topical gel (Voltaren Arthritis Pain) 2 g topical BID PRN 02/15/23 [History Last Taken Unknown] oxycodone-acetaminophen 5 mg-325 mg tablet (Percocet) 1 tab PO Q6H PRN pain 3 days #14 tabs 02/15/23 [Rx Last Taken Unknown] oxycodone-acetaminophen 5 mg-325 mg tablet (Percocet) 1 tab PO Q6H pain 3 days #12 tabs 06/04/23 [Rx Last Taken Unknown] prednisone 20 mg tablet 60 mg (3 x 20 mg) PO DAILY #15 TABLETS 06/04/23 [Rx Last Taken Unknown] Allergy/AdvReac Type Severity Reaction Status Date / Time No Known Allergies Allergy Verified 06/04/23 12:44 Family History Mother Hypertension Other Alcoholism Surgical History H/O vascular surgery Stenosis of artery of left lower extremity Social History household members: none Smoking Status: Former smoker how long ago did patient quit smoking: January 2022 alcohol intake: never substance use type: former substance user Date of last use: 03/2020 and crack/cocaine caffeine: Yes Type: carbonated beverages and coffee ROS ROS ED Constitutional Constitutional ED: Denies chills, fever(s) or sweats Eyes Eyes: Denies change in vision ENT ENT ED: Denies dysphagia or sore throat Cardiovascular Cardiovascular: Denies chest pain, leg edema, palpitations or racing heartbeat Respiratory/Chest Respiratory/Chest: Denies cough, dyspnea or dyspnea on exertion Gastrointestinal Gastrointestinal: Denies abdominal pain, diarrhea, nausea or vomiting Genitourinary Genitourinary ED: Denies dysuria, hematuria or urinary frequency Musculoskeletal Musculoskeletal: Reports extremity pain; Denies back pain or neck pain Integumentary Denies rash or wounds Neurologic Neurologic: Denies headache(s), paresthesias or weakness EXAM Physical Exam Const Vital Signs: 06/04/23 12:45 Temperature 98.6 F Temperature Source Temporal Pulse Rate 89 Respiratory Rate 20 H Blood Pressure 99/88 H Blood Pressure Mean 91 Pulse Ox 92 Oxygen Delivery Method Nasal Cannula Oxygen Flow Rate (L/min) 3 Positive well nourished and well developed Constitutional Narrative: 2 L nasal cannula General Appearance ED: well developed and NAD HEENT Reports moist mucous membranes normocephalic and atraumatic Eyes PERRL, EOMs intact bilaterally and conjunctivae normal General Eye ED: Yes normal appearance of both eyes Neck no lymphadenopathy and supple General: Negative for tenderness Chest Wall Chest: Negative for tenderness Resp normal respiratory effort and normal air movement Effort and Inspection: symmetric chest movement; Negative for respiratory distress Cardio regular rate, regular rhythm and no murmurs Peripheral Pulses: pulses 2+ throughout GI normal to inspection, nondistended, normoactive bowel sounds and non-tender Palpation: Negative for guarding or rebound tenderness present Back/Spine no CVA tenderness and no thoracic nor lumbar tenderness Back/Spine Narrative: No midline tenderness. Straight leg test negative. Extremity Extremity Narrative: Right lower extremity: No shortening or deformities pain with rotation of the hip. Neuro vas intact distally. General Extremety ED: Negative for edema or tenderness General Extremity: Negative for edema Neuro oriented x3 and no sensory deficits noted Sensorium / Orientation: awake and alert Skin no rashes or lesions noted and no wounds MDM MDM MDM Narrative Medical decision making narrative: Interventions / MDM: Differential diagnosis: Hip strain Diagnosis considered but do not suspect: Fracture however image negative. No clinical sciatica presentation. My EKG interpretation: N/A Imaging independently reviewed and interpreted by myself: 3 view right hip with pelvis: No acute process also read by radiology. External documents reviewed: N/A Test considered but not ordered:N/A ED course: Patient right hip strain however is able to ambulate. Toradol oxycodone prescribed. X-ray obtained negative. She is able to ambulate. She is nondiabetic. She is on meloxicam. We will write for short prescription for prednisone short prescription of oxycodone. She follow with her orthopedist. All questions were answered. Re-evaluation: stable Disposition discussed with patient/family/significant other: Patient Case discussed with consulting clinician: N/A This note was generated with [employer] dictation software. It may contain incorrectwords, spelling, and punctuation that were not noted in checking the note beforesigning. Radiography Diagnostic Testing: Clinical Impression(s) from Imaging Studies Hip/Pelvis X-Ray 06/04/23 14:30 IMPRESSION: No evidence of displaced pelvic or hip fracture. Electronically Signed: Arnold Alatorre MD at 14:47 EDT , Discharge Plan Triage Chief Complaint: Back ED Provider: Lucas Marshall Dx/Rx/DC Orders Clinical Impression: Strain of muscle of right hip, COPD (chronic obstructive pulmonary disease) Instructions: ED Hip Strain Prescriptions: New oxycodone-acetaminophen [Percocet] 5-325 mg tablet 1 tab PO Q6H 3 Days Qty: 12 0RF prednisone 20 mg tablet 60 mg PO DAILY Qty: 15 0RF No Action furosemide 20 mg tablet 20 mg PO DAILY potassium chloride 10 mEq capsule, extended release 10 meq PO DAILY Breztri Aerosphere 160-9-4.8 mcg/actuation HFA aerosol inhaler 2 inh inhalation BID ipratropium-albuterol 0.5 mg-3 mg(2.5 mg base)/3 mL solution for nebulization 3 ml inhalation TID etodolac 400 mg tablet 400 mg PO BID meloxicam 15 mg tablet 15 mg PO DAILY oxybutynin chloride 10 mg tablet extended release 24hr 10 mg PO DAILY diclofenac sodium [Voltaren Arthritis Pain] 1 % gel 2 g topical BID PRN Rx Instructions: apply to single elbow, wrist or hand; for hand includes palm/fingers/back of hand lisinopril 10 MG tablet 10 mg PO DAILY aspirin 81 MG tablet,chewable 81 mg PO DAILY Patient Comments: Take 1 tablet by mouth once daily. albuterol sulfate 18 GM HFA aerosol inhaler 2 puff IH Q4H PRN PRN (Reason: Wheezing) Patient Comments: Inhale 2 Puffs as instructed every 4 hours as needed. tizanidine 2 MG capsule 2 mg PO Q8 PRN (Reason: Muscle Spasm) gabapentin 300 mg capsule 300 mg PO TID atorvastatin 40 mg tablet 40 mg PO DAILY Patient Comments: Take 1 tablet by mouth once daily. oxycodone-acetaminophen [Percocet] 5-325 mg tablet 1 tab PO Q6H PRN (Reason: pain) 3 Days Qty: 14 0RF Primary Care Provider: ELI BRAGG Referrals: ELI BRAGG NP-C [Primary Care Provider] - Activity Restrictions/Additional Instructions: Right hip x-ray negative. Take steroids, continue your meloxicam. Use Percocetas needed. Follow-up with your doctors. Disposition Disposition: Home, Self Care What to do if you have Problems For any increased pain, shortness of breath, bleeding, nausea or vomiting, chestpain, or any unexpected problems, contact your Primary Care Provider. Call [facility] ([phone]) or report to the closest Emergency Room. Call 911 if necessary. 06/04/23 1330 <Electronically signed by Lucas Penny> Cosigner Signature (if applicable): CC: [employer] KNITTED GOODSBlair ELI BRAGG ~ Signed [facility] Work Phone: [phone] 664-200801-23-[address] Kingsley [facility] October 22, 2022 6:28pm Note Date/Time October 22, 2022 4 :44pm [facility] Medical Records Department [address] [place] [address] Emergency Department Summary 10/22/22 MR#: [id number] Acct: [id number] Name: DIANNE ALVES Rep #:[id number] : 1955 67 From: Ganga Kingsley MD PCP: Dr. Molly Castillo MD Status:REG E R Location: ED HPI History of Present Illness Chief Complaint: Other, Pain/Inj Narrative Narrative: 67-year-old female past medical history of COPD, wears oxygen at home, was brought in by her 180 counselor/friend because of left neck pain. She has history of pinched nerve in her neck and she used to receive injections she states. Over the last few months, she has left neck pain but she also states that she has muscle spasms in her hands and feet bilaterally. No fevers or chills. She states when her hands lock up she is not sure if she is having a stroke. She denies any headache, no other symptoms. She presents because of the left neck pain that radiates down her left arm at times. PFSH PFSH Medical History Alcohol abuse Chest pain Chronic hepatitis C without hepatic coma Cocaine abuse COPD (chronic obstructive pulmonary disease) DVT (deep venous thrombosis) H/O cocaine abuse H/O ETOH abuse Hepatitis C HTN (hypertension) Lumbar herniated disc Pinched nerve in neck Presence of stent in artery Smoker Home Medications albuterol sulfate 90 mcg/actuation aerosol inhaler 2 puff IH Q4H PRN PRN Wheezing 08/26/20 [History Last Taken 08/26/20] aspirin 81 mg chewable tablet 81 mg PO DAILY BLOOD CLOT 08/26/20 [History Last Taken 09/12/20] cilostazol 100 mg tablet 100 mg PO BID blood flow 08/26/20 [History Last Taken 09/12/20] lisinopril 10 mg tablet 10 mg PO DAILY bp 08/26/20 [History Last Taken 09/12/20] oxybutynin chloride 5 mg tablet,extended release 24 hr 5 mg PO DAILY BLADDER 08/26/20 [History Last Taken 09/12/20] tizanidine 2 mg capsule 2 mg PO Q8 PRN Muscle Spasm 08/26/20 [History Last Taken 08/26/20] acetaminophen 325 mg tablet 650 mg PO Q6H PRN PRN pain 1-07/0908/29/20 [Rx Last Taken Unknown] meloxicam 7.5 mg tablet 7.5 mg PO DAILY Check with primary doctor #14 tabs 08/29/20 [Rx Last Taken 09/12/20] gabapentin 300 mg capsule 300 mg PO QHS nerve pain 09/12/20 [History Last Taken 09/11/20] trazodone 50 mg tablet 50 - 100 mg PO QHS sleep 09/13/20 [History Last Taken Unknown] guaifenesin 1,200 mg tablet, extended release 12 hr 1,200 mg PO BID ##14 09/15/20 [Rx Last Taken Unknown] atorvastatin 40 mg tablet 40 mg PO DAILY 02/07/21 [History Last Taken Unknown] fluticasone propionate 45 mcg-salmeterol 21 mcg/actuation HFA inhaler (Advair HFA) 2 puff inhalation BID #12 grams 02/10/21 [Rx Last Taken Unknown] nicotine 7 mg/24 hr daily transdermal patch (Nicoderm CQ) 1 patch transdermal Q24H #14 ea 02/10/21 [Rx Last Taken Unknown] oxycodone 5 mg capsule 5 mg PO Q8H PRN pain 5 days #15 caps 02/10/21 [Rx Last Taken Unknown] azithromycin 250 mg tablet 250 mg PO DAILY #4 tabs 07/30/22 [Rx Last Taken Unknown] prednisone 20 mg tablet 60 mg PO DAILY #12 tabs 07/30/22 [Rx Last Taken Unknown] furosemide 20 mg tablet 20 mg PO DAILY 10/17/22 [History Last Taken Unknown] potassium chloride 10 mEq capsule,extended release 10 meq PO DAILY 10/17/22 [History Last Taken Unknown] Allergy/AdvReac Type Severity Reaction Status Date / Time No Known Allergies Allergy Verified 10/22/22 15:58 Family History Other Alcoholism Hypertension Surgical History Stenosis of artery of left lower extremity Social History household members: none Smoking Status: Former smoker details: History of alcoholism substance use type: crack/cocaine ROS ROS ED ROS Narrative Constitutional: No fever, no chills. HEENT: No sore throat. Positive neck pain. No loss of vision. No rhinorrhea. Cardiovascular: No chest pain. No palpitations. No pedal edema. Respiratory: No cough, no shortness of breath. Abdominal: No abdominal pain. No nausea. No vomiting. Genitourinary: No dysuria. No hematuria. Musculoskeletal: No myalgias. No arthralgias. States has muscle spasms in hands and feet bilaterally. Occasional left arm pain. Neurologic: No headaches. No dizziness. No lightheadedness. Skin: No rash. No change in color. Psychiatric: No depression. No anxiety. EXAM Physical Exam Narrative Exam Narrative: Afebrile. Vital signs noted. HEENT: Normocephalic. Atraumatic. PERRL, EOMI. Neck soft and supple. No pointtenderness or step off. Cardiovascular: Regular rate and rhythm. No murmurs, rubs, or gallops appreciated. Respiratory: No tachypnea. Lungs clear to auscultation bilaterally. Gastrointestinal: Abdomen soft, nontender, with normoactive bowel sounds. No rebound or guarding. Neurological: Awake. Alert. Nonfocal, nonlateralizing. Able to raise arms abovehead without difficulty. Skin: No rash. Normal color. No pallor. Musculoskeletal: No pedal edema. Full range of motion extremities. Const Vital Signs: 10/22/22 15:58 10/22/22 16:36 Temperature 97 F L Temperature Source Temporal Pulse Rate 85 Respiratory Rate 18 Respiratory Effort Normal Non-Labored Respiratory Pattern Normal Blood Pressure 122/86 H Blood Pressure Mean 98 Pulse Ox 100 Oxygen Delivery Method Room Air MDM MDM MDM Narrative Medical decision making narrative: I do feel that the patient is having exacerbation of her chronic pinched nerve in her neck/cervical radiculopathy. I do not feel that CT of the brain is indicated. She was reassured that her bilateral hand and feet cramping is not secondary to stroke. I will check her CBC and BMP to look for an electrolyte imbalance. She was told that she will more than likely need to follow-up with her primary care provider or if she was getting injections in her neck for a pinched nerve with that physician even if it is pain management. X-rays were obtained of the cervical spine, interpreted by myself. My interpretation shows no evidence of fracture, there are degenerative changes. Ireviewed the radiology report and they confirm. I reviewed her laboratory work. She has normal white count of 6.3, normal hemoglobin of 14.1, although her potassium is slightly elevated at 5.4 I think is nonspecific, I do not feel thatshe needs to be treated for hyperkalemia. She has a creatinine slightly elevated at 1.12, with a BUN of 19. Glucose normal at 96 with a normal anion gap of 6. As this is a chronic neck pain, I feel she be discharged safely home to use [id number] medications. She was told that narcotic pain medicationshould come from her primary care provider as this is more of a chronic problem. Return instructions to the emergency department were reviewed. Disposition is discharged home in stable condition. Lab Data Attestation: I reviewed the patient's lab results. Labs: Laboratory Results - last 24 hr 10/22/22 10/22/22 17:10 17:10 WBC 6.3 RBC 4.77 Hgb 14.1 Hct 43.1 MCV 90.4 MCH 29.6 MCHC 32.7 RDW Std Deviation 45.9 H RDW Coeff of Oleg 13.9 Plt Count 244 MPV 10.1 Immature Gran % (Auto) 0.200 Neut % (Auto) 46.3 L Lymph % (Auto) 40.1 [place] % (Auto) 7.0 Eos % (Auto) 5.9 H Baso % (Auto) 0.5 Absolute Neuts (auto) 2.9 Absolute Lymphs (auto) 2.52 Nucleated RBC % 0 Sodium 138 Potassium 5.4 H Chloride 110 H Carbon Dioxide 22.0 Anion Gap 6 BUN 19 H Creatinine 1.12 H Estim Creat Clear Calc 46.25 Est GFR (MDRD) Af Amer 63 Est GFR (MDRD) Non-Af 52 L BUN/Creatinine Ratio 17.0 Glucose 96 Calcium 9.2 Radiography Diagnostic Testing: Clinical Impression(s) from Imaging Studies Cervical Spine X-Ray 10/22/22 17:50 IMPRESSION: Mild degenerative change. No acute fracture or other significant bony pathology Electronically Signed: Cole Christine MD at 18:09 EST , Discharge Plan Triage Chief Complaint: Other, Pain/Inj Other Complaint: Numb/Ting Upper Extremity Injury ED Provider: Ganga Kingsley Dx/Rx/DC Orders Clinical Impression: Cervical radiculopathy, Neck pain, chronic Instructions: ED Neck Pain, ED Radiculopathy, Cervical Prescriptions: No Action furosemide 20 mg tablet 20 mg PO DAILY potassium chloride 10 mEq capsule, extended release 10 meq PO DAILY cilostazol 100 MG tablet 100 mg PO BID lisinopril 10 MG tablet 10 mg PO DAILY oxybutynin chloride 5 MG tablet extended release 24hr 5 mg PO DAILY aspirin 81 MG tablet,chewable 81 mg PO DAILY Label Comments: Take 1 tablet by mouth once daily. albuterol sulfate 18 GM HFA aerosol inhaler 2 puff IH Q4H PRN PRN (Reason: Wheezing) Label Comments: Inhale 2 Puffs as instructed every 4 hours as needed. tizanidine 2 MG capsule 2 mg PO Q8 PRN (Reason: Muscle Spasm) acetaminophen 325 MG tablet 650 mg PO Q6H PRN PRN (Reason: pain 1-07/09) 0RF meloxicam 7.5 MG tablet 7.5 mg PO DAILY Qty: 14 0RF gabapentin 300 MG capsule 300 mg PO QHS trazodone 50 MG tablet 50 - 100 mg PO QHS guaifenesin 1,200 MG tablet extended release 12hr 1,200 mg PO BID Qty: 14 0RF atorvastatin 40 mg tablet 40 mg PO DAILY Label Comments: Take 1 tablet by mouth once daily. Advair HFA 45-21 mcg/actuation HFA aerosol inhaler 2 puff inhalation BID Qty: 12 0RF oxycodone 5 mg capsule 5 mg PO Q8H PRN (Reason: pain) 5 Days Qty: 15 0RF nicotine [Nicoderm CQ] 7 mg/24 hr patch 24 hour 1 patch transdermal Q24H Qty: 14 0RF azithromycin [azithromycin] 250 mg tablet 250 mg PO DAILY Qty: 4 0RF prednisone 20 mg tablet 60 mg PO DAILY Qty: 12 0RF Primary Care Provider: Molly Castillo Referrals: Molly Castillo MD [Primary Care Provider] - As soon as possible Disposition Disposition: Home, Self Care What to do if you have Problems For any increased pain, shortness of breath, bleeding, nausea or vomiting, chestpain, or any unexpected problems, contact your Primary Care Provider. Call [facility] ([phone]) or report to the closest Emergency Room. Call 911 if necessary. 10/22/221827 <Electronically signed by Ganga Kingsley MD> Cosigner Signature (if applicable): CC: Dr. Molly Castillo MD ~ Signed [facility] Work Phone: Evyjyation noteNo assessment information available [facility] Work Phone: Evaluation note* Diagnosis Onset Date Resolution Status Hepatitis A chronic Hepatitis C chronic [facility] Work Phone: Evaluation note* Diagnosis Onset Date Resolution Status Hepatitis A chronic Hepatitis C chronic Preop cardiovascular exam ac [facility] Work Phone: Evaluation note* Diagnosis Onset Date Resolution Status Preop cardiovascular exam [place] Euthyroid sick syndrome acut e Bloating acute Hepatitis A chronic Hepatitis C chronic [facility] Work Phone: Evaluation note* Diagnosis Onset Date Resolution Status Euthyroid sick syndrome acut e Bloating acute Hepatitis A chronic Hepatitis C chronic [facility] Work Phone: Evaluation note* Diagnosis Onset Date Resolution Status Euthyroid sick syndrome acut e Bloating acute Hepatitis A chronic Hepatitis C chronic Chest pain acute [facility] Work Phone: Evaluation note* Diagnosis Onset Date Resolution Status Euthyroid sick syndrome acut e Bloating acute Hepatitis A chronic Hepatitis C chronic Chest pain acute Difficult intravenous access acute [facility] Work Phone: Evaluation note* Diagnosis Onset Date Resolution Status Difficult intravenous access acute Chest pain resolved [facility] Work Phone: Hospital Discharge instructions Additional Instructions Take antibiotic and steroid as prescribed. Next dose tomorrow. Keep yoUr pulmonology appointment tomorrow. COVID-negative chest x-ray negative labs are stable. return if any worsening symptoms.[facility] Work Phone: Hospital Discharge instructions Additional Instructions Motrin and Tylenol for pain. The x-rays of your hip showed arthritis but no broken bones or any other significant abnormalities. Follow-up with your doctor if not improving.[facility] Work Phone: Hospital Discharge instructions Additional Instructions Right hip x-ray negative. Take steroids, continue your meloxicam. Use Percocet as needed. Follow-up with your doctors.[facility] Work Phone: Hospital Discharge instructions Additional Instructions See CAT scan your chest look good. No blood clot. Your other tests look good tonight. 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 Advance Directives and Living Will Power of Administrative Sales Assistant Advance Directive Response Recorded Date/ Time Living Will No July 30 2:10pm Power of Administrative Sales Assistant No July 30, 2022 2:10pm Advance Directive Response Recorded Date/ Time Living Will No July 30 1:10pm Power of Administrative Sales Assistant No July 30, 2022 1:10pm Advance Directive Response Recorded Date/ Time Living Will No October 22 4:35pm Power of Administrative Sales Assistant No October 22, 2022 4:35pm Advance Directive Response Recorded Date/ Time Living Will No October 22 5:35pm Power of Administrative Sales Assistant No October 22, 2022 5:35pm Advance Directive Response Recorded Date/ Time Living Will No April 13, 2023 10:36am Power of Administrative Sales Assistant No April 13 10:36am Advance Directive Response Recorded Date/ Time Living Will No June 04, 2 023 3:10pm Power of Administrative Sales Assistant No June 04, 2023 3:10pm Advance Directive Response Recorded Date/ Time Living Will No June 04, 2 023 2:10pm Power of Administrative Sales Assistant No June 04, 2023 2:10pm Advance Directive Response Recorded Date/ Time Living Will No August 05 8:52am Power of Administrative Sales Assistant No August 05, 2023 8:52am Advance Directive Response Recorded Date/ Time Living Will No November 10, 2 024 8:26pm Power of Administrative Sales Assistant No November 10, 2023 8:26pm Advance Directive Response Recorded Date/ Time Living Will No November 21 2 024 11:32am Power of Administrative Sales Assistant No November 21, 2023 11:32am Advance Directive Response Recorded Date/ Time Living Will No November 17, 025 5:00pm Power of Administrative Sales Assistant No November 17, 2024 5:00pm Living Will No December 11, 2024 4:45pm Power of Administrative Sales Assistant No December 11 4:45pm Hospital Course Note NAME: DIANNE ALVES MR# : [id number] ADMIT DATE: 11/25/2019 DISCHARGE DATE: 12/07/2019 DISCHARGE SUMMARY HISTORY OF PRESENT ILLNESS: The patient is a 64-year-old -[place] female who was evicted from her apartment [...] content not included)... Discharge Instructions * Instructions* Ishaan Martinez, PA - 04/13/2020 You were seen in the emergency Department for your cocaine. Unfortunately there are no beds at [facility]. Please follow-up with the resources provided to you for local help. * Attachments The following attachments cannot be sent through Care Everywhere. * Drug Overdose: Cocaine (Niuean) documented in this encounter Assessments Diagnosis Cocaine abuse (HCC) Cocaine abuse, unspecified Chief Complaint and Reason for Visit Chief Complaint SOB Chief Complaint SOB STRENGTHENING,WEAKNESS/PT HAS RX Chief Complaint SOB STRENGTHENING,WEAKNESS/PT HAS RX neck pain, left arm pain Chief Complaint neck pain, left arm pain HEP C Reason for Visit Hepatitis A Hepatitis C Chief Complaint HEP C *ORDER FOR PEP DEVICE* (PER DECEMBER) ABN EKG/ SURG CLEARANCE ([place]) FALL LEFT HIP Reason for Visit Hepatitis A Hepatitis C Preop cardiovascular exam Chief Complaint ABN EKG/ SURG CLEARA NCE ([place]) FALL LEFT HIP Thyroid 4 mo fu EORDER L WRIST FX/RX HERE BACK Reason for Visit Preop cardiovascular exam Euthyroid sick syndrome Bloating Hepatitis A Hepatitis C Chief Complaint LEFT HIP Thyroid 4 mo fu EORDER BACK Unspecified viral hepatitis C without hepatic coma L WRIST FX/RX HERE Reason for Visit Euthyroid sick syndr ome Bloating Hepatitis A Hepatitis C Chief Complaint LEFT HIP Thyroid 4 mo fu EORDER BACK Unspecified viral hepatitis C without hepatic coma L WRIST FX/RX HERE CHEST PAIN, INDETERM TROP Reason for Visit Euthyroid sick syndr ome Bloating Hepatitis A Hepatitis C Chest pain Chief Complaint Thyroid 4 mo fu EORDER BACK Unspecified viral hepatitis C without hepatic coma L WRIST FX/RX HERE CHEST PAIN, INDETERM TROP CHEST PAIN, INDETERM TROP CHEST PAIN, INDETERM TROP CHEST PAIN, INDETERM TROP CHEST PAIN, INDETERM TROP CHEST PAIN, INDETERM TROP CHEST PAIN, INDETERM TROP CHEST PAIN, INDETERM TROP CHEST PAIN, INDETERM TROP Reason for Visit Euthyroid sick syndr ome Bloating Hepatitis A Hepatitis C Chest pain Difficult intravenous access Chief Complaint CHEST PAIN, INDETERM TROP CHEST PAIN, INDETERM TROP CHEST PAIN, INDETERM TROP CHEST PAIN, INDETERM TROP CHEST PAIN, INDETERM TROP CHEST PAIN, INDETERM TROP CHEST PAIN, INDETERM TROP CHEST PAIN, INDETERM TROP CP CHEST PAIN, INDETERM TROP LAB WORK LEFT FOOT Reason for Visit Difficult intravenou s access Chest pain Chief Complaint CHEST PAIN, INDETERM TROP CHEST PAIN, INDETERM TROP CHEST PAIN, INDETERM TROP CHEST PAIN, INDETERM TROP CHEST PAIN, INDETERM TROP CHEST PAIN, INDETERM TROP CHEST PAIN, INDETERM TROP CHEST PAIN, INDETERM TROP CP CHEST PAIN, INDETERM TROP LAB WORK LEFT FOOT LEFT FLANK Reason for Visit Difficult intravenou s access Chest pain Chief Complaint Admit Date ACUTE ON CHRONIC RESPIRATORY FAILURE/ TO November 17, 2024 2:58pm CP November 17, 2024 6:45pm ACUTE ON CHRONIC RESPIRATORY FAILURE/2ND TO FLU November 18, 2024 1:59pm ACUTE ON CHRONIC RESPIRATORY FAILURE/2ND TO November 19, 2024 10:06am ACUTE ON CHRONIC RESPIRATORY FAILURE/2ND TO FLU November 19, 2024 11:39am ACUTE ON CHRONIC RESPIRATORY FAILURE/2ND TO FLU November 20, 2024 9:35am ACUTE ON CHRONIC RESPIRATORY FAILURE/2ND TO FLU November 20, 2024 10:48am ACUTE ON CHRONIC RESPIRATORY FAILURE/2ND TO FLU November 21, 2024 11:33am ACUTE ON CHRONIC RESPIRATORY FAILURE/2ND TO FLU November 22, 2024 2:04pm ACUTE ON CHRONIC RESPIRATORY FAILURE/2ND TO FLU November 23, 2024 1:27pm ACUTE ON CHRONIC RESPIRATORY FAILURE/2ND TO FLU November 23, 2024 2:58pm ABN LABS December 11, 2024 3:4 4pm Reason for Visit Admit Date Influenza A November 17, 2024 2:58pm Acute on chronic hypoxic respiratory dennis lure November 17, 2024 2:58pm Type 2 acute myocardial infarction Febru [email or web address] 2:58pm Additional Source Comments INFORMATION SOURCE (unrecogn ized section and content) DATE CREATED AUTHOR 02/04/2019 [facility] DATE CREATED AUTHOR AUTHOR'S ORGANIZ ATION 06/19/2019 [employer] DATE CREATED AUTHOR AUTHOR'S ORGANIZ ATION 12/14/2019 [facility] DATE CREATED AUTHOR AUTHOR'S ORGANIZ ATION 02/12/2020 [facility] DATE CREATED AUTHOR AUTHOR'S ORGANIZ ATION 04/22/2020 [facility] DATE CREATED AUTHOR AUTHOR'S ORGANIZ ATION 10/29/2021 [facility] DATE CREATED AUTHOR AUTHOR'S ORGANIZ ATION 08/22/2024 [facility] DATE CREATED AUTHOR AUTHOR'S ORGANIZ ATION 10/28/2024 [facility] DATE CREATED AUTHOR AUTHOR'S ORGANIZ ATION 12/22/2024 [facility] DATE CREATED AUTHOR AUTHOR'S ORGANIZ ATION 07/17/2025 [facility] Reason for Visit (unrecogniz ed section and content) Reason Comments Drug / Alcohol Assessment wants detox fr om cocaine,, denies SI denies HI,, denies hallucinations,, she has them only when she is high,, last use this morning at 0700,, she has abusing cocaine everyday for the past year Goals (unrecognized section and content) Goals may be documented in a n alternate sectionGoals may be documented in an alternate sectionGoals may be documented in an alternate sectionGoals may be documented in an alternate sectionGoals may be documented in an alternate sectionGoals may be documented in an alternate sectionGoals may be documented in an alternate sectionGoals may be documented in an alternate sectionGoals may be documented in an alternate section Care Teams (unrecognized sec tion and content) Team Status: Active Member Role Status Dates Dr. Molly Castillo MD Primary Care Provider Active Team Status: Inactive Member Role Status Dates Dr. Molly Castillo MD Primary Care Provider Active Start: November 17, 2024 End: November 23, 2024 Dr. Doron Bernardo , Emergency Provider Active Start: November 17, 2024 End: November 23, 2024 Dr. Stephenie Yu MD Admit Provider Active Star t: November 17, 2024 End: November 23, 2024 Dr. Stephenie Yu MD Attending Provider Active Start: November 17, 2024 End: November 23, 2024 Dr. Stephenie Yu MD Other Provider Active Star t: November 17, 2024 End: November 23, 2024 Dr. Ishaan Alvarado MD Other Provider Active Start: November 17, 2024 End: November 23, 2024 Dr. Antwon Ferreira MD Other Provider Active Start: November 17, 2024 End: November 23, 2024 Dr. Jose Rosa MD Other Provider Active Star t: November 17, 2024 End: November 23, 2024 Dr. Zeyad Espinoza DO Other Provider Active Start : November 17, 2024 End: November 23, 2024 Dr. Darryl Evans MD Other Provider Active Sta rt: November 17, 2024 End: November 23, 2024 Dr. Heladio Paige MD Other Provider Active St art: November 17, 2024 End: November 23, 2024 Dr. Nelson Interiano MD Other Provider Active S tart: November 17, 2024 End: November 23, 2024 Dr. Maria M Ochoa MD Other Provider Active Start: November 17, 2024 End: November 23, 2024 Dr. Sebastian Kimble MD Other Provider Active Start : November 17, 2024 End: November 23, 2024 Dr. Kd Corral MD Other Provider Active Start: November 17, 2024 End: November 23, 2024 Dr. Kvng Vizcaino MD Other Provider Active Start : November 17, 2024 End: November 23, 2024 Dr. Niyah Mejia MD Other Provider Active Star t: November 17, 2024 End: November 23, 2024 Dr. Sean Cisneros MD Other Provider Active Sta rt: November 17, 2024 End: November 23, 2024 Dr. Fela Smith MD Other Provider Active Sta rt: November 17, 2024 End: November 23, 2024 Dr. Kane Knox MD Other Provider Active Star t: November 17, 2024 End: November 23, 2024 Dr. Vishnu Herrera MD Other Provider Active St art: November 17, 2024 End: November 23, 2024 Dr. Eladio Garcia MD Other Provider Active Star t: November 17, 2024 End: November 23, 2024 Dr. Lion Khan DO Other Provider Active St art: November 17, 2024 End: November 23, 2024 Dr. Dianna Shah MD Other Provider Active Start: November 17, 2024 End: November 23, 2024 Dr. Murali Arceo MD Other Provider Active St art: November 17, 2024 End: November 23, 2024 Dr. Jorje Dixon DO Other Provider Active Start: November 17, 2024 End: November 23, 2024 Dr. Gustavo Bal MD Other Provider Active Star t: November 17, 2024 End: November 23, 2024 Dr. Devante Stoddard MD Other Provider Active Sta rt: November 17, 2024 End: November 23, 2024 Dr. Rita Kenny MD Other Provider Active St art: November 17, 2024 End: November 23, 2024 Team Status: Active Member Role Status Dates Dr. Molly Castillo MD Primary Care Provider Active Start: November 17, 2024 End: November 17, 2024 Dr. Alexia Gil MD Attending Provider Active Start: November 17, 2024 End: November 17, 2024 Dr. Alexia Gil MD Referring Provider Active Start: November 17, 2024 End: November 17, 2024 Team Status: Active Member Role Status Dates Dr. Molly Castillo MD Primary Care Provider Active Start: November 18, 2024 Dr. Alexia Gil MD Attending Provider Active Start: November 18, 2024 Team Status: Active Member Role Status Dates Dr. Molly Castillo MD Primary Care Provider Active Start: November 18, 2024 Dr. Doron Bernardo DO Emergency Provider Active Start: November 18, 2024 Dr. Stephenie Yu MD Admit Provider Active Star t: November 18, 2024 Dr. Stephenie Yu MD Other Provider Active Star t: November 18, 2024 Dr. Rita Kenny MD Attending Provider Active Start: November 18, 2024 Dr. Rita Kenny MD Other Provider Active St art: November 18, 2024 Team Status: Active Member Role Status Dates Dr. Molly Castillo MD Primary Care Provider Active Start: November 19, 2024 Dr. Doron Bernardo DO Emergency Provider Active Start: November 19, 2024 Dr. Stephenie Yu MD Admit Provider Active Star t: November 19, 2024 Dr. Stephenie Yu MD Other Provider Active Star t: November 19, 2024 Dr. Rita Kenny MD Referring Provider Active Start: November 19, 2024 Dr. Rita Kenny MD Other Provider Active St art: November 19, 2024 Dr. Ishaan Alvarado MD Other Provider Active Start: November 19, 2024 Dr. Antwon Ferreira MD Other Provider Active Start: November 19, 2024 Dr. Jose Rosa MD Other Provider Active Star t: November 19, 2024 Dr. Zeyad Espinoza DO Attending Provider Active S tart: November 19, 2024 Dr. Zeyad Espinoza DO Other Provider Active Start : November 19, 2024 Dr. Darryl Evans MD Other Provider Active Sta rt: November 19, 2024 Dr. Heladio Paige MD Other Provider Active St art: November 19, 2024 Dr. Nelson Interiano MD Other Provider Active S tart: November 19, 2024 Dr. Maria M Ochoa MD Other Provider Active Start: November 19, 2024 Dr. Sebastian Kimble MD Other Provider Active Start : November 19, 2024 Dr. Kd Corral MD Other Provider Active Start: November 19, 2024 Dr. Kvng Vizcaino MD Other Provider Active Start : November 19, 2024 Dr. Niyah Mejia MD Other Provider Active Star t: November 19, 2024 Dr. Sean Cisneros MD Other Provider Active Sta rt: November 19, 2024 Dr. Fela Smith MD Other Provider Active Sta rt: November 19, 2024 Dr. Kane Knox MD Other Provider Active Star t: November 19, 2024 Dr. Vishnu Herrera MD Other Provider Active St art: November 19, 2024 Dr. Eladio Garcia MD Other Provider Active Star t: November 19, 2024 Dr. Lion Khan DO Other Provider Active St art: November 19, 2024 Dr. Dianna Shah MD Other Provider Active Start: November 19, 2024 Dr. Murali Arceo MD Other Provider Active St art: November 19, 2024 Dr. Jorje Dixon DO Other Provider Active Start: November 19, 2024 Dr. Gustavo Bal MD Other Provider Active Star t: November 19, 2024 Dr. Devante Stoddard MD Other Provider Active Sta rt: November 19, 2024 Team Status: Active Member Role Status Dates Dr. Molly Castillo MD Primary Care Provider Active Start: November 19, 2024 Dr. Doron Bernardo DO Emergency Provider Active Start: November 19, 2024 Dr. Stephenie Yu MD Admit Provider Active Star t: November 19, 2024 Dr. Stephenie Yu MD Other Provider Active Star t: November 19, 2024 Dr. Rita Kenny MD Attending Provider Active Start: November 19, 2024 Dr. Rita Kenny MD Other Provider Active St art: November 19, 2024 Dr. Ishaan Alvarado MD Other Provider Active Start: November 19, 2024 Dr. Antwon Ferreira MD Other Provider Active Start: November 19, 2024 Dr. Jose Rosa MD Other Provider Active Star t: November 19, 2024 Dr. Zeyad Espinoza , Other Provider Active Start : November 19, 2024 Dr. Darryl Evans MD Other Provider Active Sta rt: November 19, 2024 Dr. Heladio Paige MD Other Provider Active St art: November 19, 2024 Dr. Nelson Interiano MD Other Provider Active S tart: November 19, 2024 Dr. Maria M Ochoa MD Other Provider Active Start: November 19, 2024 Dr. Sebastian Kimble MD Other Provider Active Start : November 19, 2024 Dr. Kd Corral MD Other Provider Active Start: November 19, 2024 Dr. Kvng Vizcaino MD Other Provider Active Start : November 19, 2024 Dr. Niyah Mjeia MD Other Provider Active Star t: November 19, 2024 Dr. Sean Cisneros MD Other Provider Active Sta rt: November 19, 2024 Dr. Fela Smith MD Other Provider Active Sta rt: November 19, 2024 Dr. Kane Knox MD Other Provider Active Star t: November 19, 2024 Dr. Vishnu Herrera MD Other Provider Active St art: November 19, 2024 Dr. Eladio Garcia MD Other Provider Active Star t: November 19, 2024 Dr. Lion Khan DO Other Provider Active St art: November 19, 2024 Dr. Dianna Shah MD Other Provider Active Start: November 19, 2024 Dr. Murali Arceo MD Other Provider Active St art: November 19, 2024 Dr. Jorje Dixon DO Other Provider Active Start: November 19, 2024 Dr. Gustavo Bal MD Other Provider Active Star t: November 19, 2024 Dr. Devante Stoddard MD Other Provider Active Sta rt: November 19, 2024 Team Status: Active Member Role Status Dates Dr. Molly Castillo MD Primary Care Provider Active Start: November 20, 2024 Dr. Doron Bernardo DO Emergency Provider Active Start: November 20, 2024 Dr. Stephenie Yu MD Admit Provider Active Star t: November 20, 2024 Dr. Stephenie Yu MD Other Provider Active Star t: November 20, 2024 Dr. Rita Kenny MD Referring Provider Active Start: November 20, 2024 Dr. Rita Kenny MD Other Provider Active St art: November 20, 2024 Dr. Ishaan Alvarado MD Other Provider Active Start: November 20, 2024 Dr. Antwon Ferreira MD Other Provider Active Start: November 20, 2024 Dr. Jose Rosa MD Other Provider Active Star t: November 20, 2024 Dr. Zeyad Espinoza , Attending Provider Active S tart: November 20, 2024 Dr. Zeyad Espinoza DO Other Provider Active Start : November 20, 2024 Dr. Darryl Evans MD Other Provider Active Sta rt: November 20, 2024 Dr. Heladio Paige MD Other Provider Active St art: November 20, 2024 Dr. Nelson Interiano MD Other Provider Active S tart: November 20, 2024 Dr. Maria M Ochoa MD Other Provider Active Start: November 20, 2024 Dr. Sebastian Kimble MD Other Provider Active Start : November 20, 2024 Dr. Kd Corral MD Other Provider Active Start: November 20, 2024 Dr. Kvng Vizcaino MD Other Provider Active Start : November 20, 2024 Dr. Niyah Mejia MD Other Provider Active Star t: November 20, 2024 Dr. Sean Cisneros MD Other Provider Active Sta rt: November 20, 2024 Dr. Fela Smith MD Other Provider Active Sta rt: November 20, 2024 Dr. Kane Knox MD Other Provider Active Star t: November 20, 2024 Dr. Vishnu Herrera MD Other Provider Active St art: November 20, 2024 Dr. Eladio Garcia MD Other Provider Active Star t: November 20, 2024 Dr. Lion Khan DO Other Provider Active St art: November 20, 2024 Dr. Dianna Shah MD Other Provider Active Start: November 20, 2024 Dr. Murali Arceo MD Other Provider Active St art: November 20, 2024 Dr. Jorje Dixon DO Other Provider Active Start: November 20, 2024 Dr. Gustavo Bal MD Other Provider Active Star t: November 20, 2024 Dr. Devante Stoddard MD Other Provider Active Sta rt: November 20, 2024 Team Status: Active Member Role Status Dates Dr. Molly Castillo MD Primary Care Provider Active Start: November 20, 2024 Dr. Doron Bernardo , Emergency Provider Active Start: November 20, 2024 Dr. Stephenie Yu MD Admit Provider Active Star t: November 20, 2024 Dr. Stephenie Yu MD Other Provider Active Star t: November 20, 2024 Dr. Rita Kenny MD Attending Provider Active Start: November 20, 2024 Dr. Rita Kenny MD Other Provider Active St art: November 20, 2024 Dr. Ishaan Alvarado MD Other Provider Active Start: November 20, 2024 Dr. Antwon Ferreira MD Other Provider Active Start: November 20, 2024 Dr. Jose Rosa MD Other Provider Active Star t: November 20, 2024 Dr. Zeyad Espinoza DO Other Provider Active Start : November 20, 2024 Dr. Darryl Evans MD Other Provider Active Sta rt: November 20, 2024 Dr. Heladio aPige MD Other Provider Active St art: November 20, 2024 Dr. Nelson Interiano MD Other Provider Active S tart: November 20, 2024 Dr. Maria M Ochoa MD Other Provider Active Start: November 20, 2024 Dr. Sebastian Kimble MD Other Provider Active Start : November 20, 2024 Dr. Kd Corral MD Other Provider Active Start: November 20, 2024 Dr. Kvng Vizcaino MD Other Provider Active Start : November 20, 2024 Dr. Niyah Mejia MD Other Provider Active Star t: November 20, 2024 Dr. Sean Cisneros MD Other Provider Active Sta rt: November 20, 2024 Dr. Fela Smith MD Other Provider Active Sta rt: November 20, 2024 Dr. Kane Knox MD Other Provider Active Star t: November 20, 2024 Dr. Vishnu Herrera MD Other Provider Active St art: November 20, 2024 Dr. Eladio Garcia MD Other Provider Active Star t: November 20, 2024 Dr. Lion Khan DO Other Provider Active St art: November 20, 2024 Dr. Dianna Shah MD Other Provider Active Start: November 20, 2024 Dr. Murali Arceo MD Other Provider Active St art: November 20, 2024 Dr. Jorje Dixon DO Other Provider Active Start: November 20, 2024 Dr. Gustavo Bal MD Other Provider Active Star t: November 20, 2024 Dr. Devante Stoddard MD Other Provider Active Sta rt: November 20, 2024 Team Status: Active Member Role Status Dates Dr. Molly Castillo MD Primary Care Provider Active Start: November 21, 2024 Dr. Doron Bernardo DO Emergency Provider Active Start: November 21, 2024 Dr. Stephenie Yu MD Admit Provider Active Star t: November 21, 2024 Dr. Stephenie Yu MD Other Provider Active Star t: November 21, 2024 Dr. Rita Kenny MD Attending Provider Active Start: November 21, 2024 Dr. Rita Kenny MD Other Provider Active St art: November 21, 2024 Dr. Ishaan Alvarado MD Other Provider Active Start: November 21, 2024 Dr. Antwon Ferreira MD Other Provider Active Start: November 21, 2024 Dr. Jose Rosa MD Other Provider Active Star t: November 21, 2024 Dr. Zeyad Espinoza DO Other Provider Active Start : November 21, 2024 Dr. Darryl Evasn MD Other Provider Active Sta rt: November 21, 2024 Dr. Heladio Paige MD Other Provider Active St art: November 21, 2024 Dr. Nelson Interiano MD Other Provider Active S tart: November 21, 2024 Dr. Maria M Ochoa MD Other Provider Active Start: November 21, 2024 Dr. Sebastian Kimble MD Other Provider Active Start : November 21, 2024 Dr. Kd Corral MD Other Provider Active Start: November 21, 2024 Dr. Kvng Vizcaino MD Other Provider Active Start : November 21, 2024 Dr. Niyah Mejia MD Other Provider Active Star t: November 21, 2024 Dr. Sean Cisneros MD Other Provider Active Sta rt: November 21, 2024 Dr. Fela Smith MD Other Provider Active Sta rt: November 21, 2024 Dr. Kane Knox MD Other Provider Active Star t: November 21, 2024 Dr. Vishnu Herrera MD Other Provider Active St art: November 21, 2024 Dr. lEadio Garcia MD Other Provider Active Star t: November 21, 2024 Dr. Lion Khna DO Other Provider Active St art: November 21, 2024 Dr. Dianna Shah MD Other Provider Active Start: November 21, 2024 Dr. Murali Arceo MD Other Provider Active St art: November 21, 2024 Dr. Jorje Dixon DO Other Provider Active Start: November 21, 2024 Dr. Gustavo Bal MD Other Provider Active Star t: November 21, 2024 Dr. Devante Stoddard MD Other Provider Active Sta rt: November 21, 2024 Team Status: Active Member Role Status Dates Dr. Molly Castillo MD Primary Care Provider Active Start: November 22, 2024 Dr. Doron Bernardo DO Emergency Provider Active Start: November 22, 2024 Dr. Stephenie Yu MD Admit Provider Active Star t: November 22, 2024 Dr. Stephenie Yu MD Other Provider Active Star t: November 22, 2024 Dr. Rita Kenny MD Attending Provider Active Start: November 22, 2024 Dr. Rita Kenny MD Other Provider Active St art: November 22, 2024 Dr. Ishaan Alvarado MD Other Provider Active Start: November 22, 2024 Dr. Antwon Ferreira MD Other Provider Active Start: November 22, 2024 Dr. Jose Rosa MD Other Provider Active Star t: November 22, 2024 Dr. Zeyad Espinoza DO Other Provider Active Start : November 22, 2024 Dr. Darryl Evans MD Other Provider Active Sta rt: November 22, 2024 Dr. Heladio Paige MD Other Provider Active St art: November 22, 2024 Dr. Nelson Inteirano MD Other Provider Active S tart: November 22, 2024 Dr. Maria M Ochoa MD Other Provider Active Start: November 22, 2024 Dr. Sebastian Kimble MD Other Provider Active Start : November 22, 2024 Dr. Kd Corral MD Other Provider Active Start: November 22, 2024 Dr. Kvng Vizcaino MD Other Provider Active Start : November 22, 2024 Dr. Niyah Mejia MD Other Provider Active Star t: November 22, 2024 Dr. Sean Cisneros MD Other Provider Active Sta rt: November 22, 2024 Dr. Fela Smith MD Other Provider Active Sta rt: November 22, 2024 Dr. Kane Konx MD Other Provider Active Star t: November 22, 2024 Dr. Vishnu Herrera MD Other Provider Active St art: November 22, 2024 Dr. Eladio Garcia MD Other Provider Active Star t: November 22, 2024 Dr. Lion Khan , Other Provider Active St art: November 22, 2024 Dr. Dianna Shah MD Other Provider Active Start: November 22, 2024 Dr. Murali Arceo MD Other Provider Active St art: November 22, 2024 Dr. Jorje Dixon DO Other Provider Active Start: November 22, 2024 Dr. Gustavo Bal MD Other Provider Active Star t: November 22, 2024 Dr. Devante Stoddard MD Other Provider Active Sta rt: November 22, 2024 Team Status: Active Member Role Status Dates Dr. Molly Castillo MD Primary Care Provider Active Start: November 23, 2024 Dr. Doron Bernardo , Emergency Provider Active Start: November 23, 2024 Dr. Stephenie Yu MD Admit Provider Active Star t: November 23, 2024 Dr. Stephenie Yu MD Other Provider Active Star t: November 23, 2024 Dr. Ishaan Alvarado MD Other Provider Active Start: November 23, 2024 Dr. Antwon Ferreira MD Other Provider Active Start: November 23, 2024 Dr. Jose Rosa MD Other Provider Active Star t: November 23, 2024 Dr. Zeyad Espinoza DO Other Provider Active Start : November 23, 2024 Dr. Darryl Evans MD Other Provider Active Sta rt: November 23, 2024 Dr. Heladio Paige MD Other Provider Active St art: November 23, 2024 Dr. Nelson Interiano MD Other Provider Active S tart: November 23, 2024 Dr. Maria M Ochoa MD Other Provider Active Start: November 23, 2024 Dr. Sebastian Kimble MD Other Provider Active Start : November 23, 2024 Dr. Kd Corral MD Other Provider Active Start: November 23, 2024 Dr. Kvng Vizcaino MD Other Provider Active Start : November 23, 2024 Dr. Niyah Mejia MD Other Provider Active Star t: November 23, 2024 Dr. Sean Cisneros MD Other Provider Active Sta rt: November 23, 2024 Dr. Fela Smith MD Other Provider Active Sta rt: November 23, 2024 Dr. Kane Knox MD Other Provider Active Star t: November 23, 2024 Dr. Vishnu Herrera MD Other Provider Active St art: November 23, 2024 Dr. Eladio Garcia MD Other Provider Active Star t: November 23, 2024 Dr. Lion Khan DO Other Provider Active St art: November 23, 2024 Dr. Dianna Shah MD Other Provider Active Start: November 23, 2024 Dr. Murali Arceo MD Other Provider Active St art: November 23, 2024 Dr. Jorje Dixon DO Other Provider Active Start: November 23, 2024 Dr. Gustavo Bal MD Other Provider Active Star t: November 23, 2024 Dr. Devante Stoddard MD Other Provider Active Sta rt: November 23, 2024 Dr. Rita Kenny MD Other Provider Active St art: November 23, 2024 Dr. Tej Corley MD Attending Provider Activ e Start: November 23, 2024 Team Status: Active Member Role Status Dates Dr. Molly Castillo MD Primary Care Provider Active Start: November 23, 2024 Dr. Doron Bernardo DO Emergency Provider Active Start: November 23, 2024 Dr. Stephenie Yu MD Admit Provider Active Star t: November 23, 2024 Dr. Stephenie Yu MD Attending Provider Active Start: November 23, 2024 Dr. Stephenie Yu MD Other Provider Active Star t: November 23, 2024 Dr. Ishaan Alvarado MD Other Provider Active Start: November 23, 2024 Dr. Antwon Ferreira MD Other Provider Active Start: November 23, 2024 Dr. Jose Rosa MD Other Provider Active Star t: November 23, 2024 Dr. Zeyad Espinoza DO Other Provider Active Start : November 23, 2024 Dr. Darryl Evans MD Other Provider Active Sta rt: November 23, 2024 Dr. Heladio Paige MD Other Provider Active St art: November 23, 2024 Dr. Nelson Interiano MD Other Provider Active S tart: November 23, 2024 Dr. Maria M Ochoa MD Other Provider Active Start: November 23, 2024 Dr. Sebastian Kimble MD Other Provider Active Start : November 23, 2024 Dr. Kd Corral MD Other Provider Active Start: November 23, 2024 Dr. Kvng Vizcaino MD Other Provider Active Start : November 23, 2024 Dr. Niyah Mejia MD Other Provider Active Star t: November 23, 2024 Dr. Sean Cisneros MD Other Provider Active Sta rt: November 23, 2024 Dr. Fela Smith MD Other Provider Active Sta rt: November 23, 2024 Dr. Kane Knox MD Other Provider Active Star t: November 23, 2024 Dr. Vishnu Herrera MD Other Provider Active St art: November 23, 2024 Dr. Eladio Garcia MD Other Provider Active Star t: November 23, 2024 Dr. Lion Khan DO Other Provider Active St art: November 23, 2024 Dr. Dianna Shah MD Other Provider Active Start: November 23, 2024 Dr. Murali Arceo MD Other Provider Active St art: November 23, 2024 Dr. Jorje Dixon DO Other Provider Active Start: November 23, 2024 Dr. Gustavo Bal MD Other Provider Active Star t: November 23, 2024 Dr. Devante Stoddard MD Other Provider Active Sta rt: November 23, 2024 Dr. Rita Kenny MD Other Provider Active St art: November 23, 2024 Team Status: Inactive Member Role Status Dates Dr. Molly Castillo MD Primary Care Provider Active Start: December 11, 2024 End: December 11, 2024 Dr. Titi Jesus MD Emergency Provider Active S tart: December 11, 2024 End: December 11, 2024 Team Status: Active Member Role Status Dates Dr. Aquiles Jones MD Primary Care Provider Active Dr. Tej Corley MD Attending Provider Activ e Team Status: Active Member Role Status Dates Dr. Castro Lane DO Emergency Provider Active Dr. Aquiles Jones MD Primary Care Provider Active Dr. Miguelina Castanon MD Admit Provider, Other Provider Active Dr. Woodrow Cardenas DO Other Provider Active Dr. Tej Corley MD Attending Provider Activ e Team Status: Active Member Role Status Dates Dr. Castro Lane DO Emergency Provider Active Dr. Aquiles Jones MD Primary Care Provider Active Dr. Miguelina Castanon MD Admit Provider, Other Provider Active Dr. Woodrow Cardenas DO Attending Provider, Other Provid er Active Team Status: Active Member Role Status Dates Dr. Aquiles Jones MD Primary Care Provider Active Dr. Woodrow Cristobal MD Attending Provider Active Dr. Woodrow Cardenas DO Referring Provider Active Team Status: Active Member Role Status Dates Dr. Castro Lane DO Emergency Provider Active Dr. Aquiles Jones MD Primary Care Provider Active Dr. Miguelina Castanon MD Admit Provider, Other Provider Active Dr. Julio Duong MD Attending Provider, Other Provi mal Active Dr. Woodrow Cardenas DO Other Provider Active Team Status: Active Member Role Status Dates Dr. Castro Lane DO Emergency Provider Active Dr. Aquiles Jones MD Primary Care Provider Active Dr. Miguelina Castanon MD Admit Provider, Other Provider Active Dr. Woodrow Cardenas DO Other Provider Active Dr. Adrián Burris , DO Attending Provider, Other Provider Active Dr. Julio Duong MD Other Provider Active Team Status: Active Member Role Status Dates Dr. Aquiles Jones MD Primary Care Provider Active Dr. Yeison Verma MD Attending Provider Active Dr. Woodrow Cardenas DO Referring Provider Active Team Status: Inactive Member Role Status Dates Dr. Castro Lane DO Emergency Provider Active Dr. Aquiles Jones MD Primary Care Provider Active Dr. Miguelina Castanon MD Admit Provider, Other Provider Active Dr. Woodrow Cardenas DO Other Provider Active Dr. Adrián Burris DO Attending Provider Active Dr. Julio Duong MD Other Provider Active Team Status: Active Member Role Status Dates Dr. Aquiles Jones MD Primary Care Provider Active Aquiles COLE Attending Provider Active Team Status: Inactive Member Role Status Dates Dr. Isidro Dominguez MD Emergency Provider Active Dr. Molly Castillo MD Primary Care Provider Active Team Status: Active Member Role Status Dates Dr. Aquiles Jones MD Primary Care Provider Active Team Status: Inactive Member Role Status Dates Dr. Molly Castillo MD Referring Provider Active Dr. Stef Bennett DO Attending Provider Active ELI BRAGG , [employer] Primary Care Provider Active Team Status: Inactive Member Role Status Dates Dr. Molly Castillo MD Referring Provider Active Dr. Omar Walters MD Attending Provider Active ELI BRAGG , [employer] Primary Care Provider Active Team Status: Inactive Member Role Status Dates Dr. Capo Yu MD Attending Provider, Referring Provider Active ELI BRAGG , [employer] Primary Care Provider Active Team Status: Inactive Member Role Status Dates ELI BRAGG [employer] Primary Care Provider Active Dr. Stef Bennett DO Attending Provider, Referring Provider Active Team Status: Inactive Member Role Status Dates ELI BRAGG [employer] Primary Care Provider Active Dr. Lucas Marshall DO Attending Provider, Emergency Provide r Active Team Status: Active Member Role Status Dates Dr. Castro Lane DO Emergency Provider Active Dr. Aquiles Jones MD Primary Care Provider Active Dr. Miguelina Castanon MD Admit Provider, Other Provider Active Dr. Woodrow Cardenas DO Attending Provider Active Team Status: Inactive Member Role Status Dates Dr. Molly Castillo MD Primary Care Provider Active Dr. Titi Jesus MD Attending Provider, Emergency Pro vider Active Team Status: Inactive Member Role Status Dates Dr. Molly Castillo MD Primary Care Provider Active Dr. Lucas Marshall DO Attending Provider, Emergency Provide r Active Team Status: Inactive Member Role Status Dates Dr. Molly Castillo MD Primary Care Provi mal, Attending Provider, Referring Provider Active Team Status: Inactive Member Role Status Dates Dr. Molly Castillo MD Primary Care Provider Active Ganga Kingsley MD Emergency Provider Active Team Status: Inactive Member Role Status Dates Dr. Molly Castillo MD Primary Care Provider, Referring Provider Active Dr. Stef Bennett DO Attending Provider Active Team Status: Inactive Member Role Status Dates Dr. Molly Castillo MD Primary Care Provider Active Ganga Kingsley MD Attending Provider, Emergency Provid er Active Team Status: Inactive Member Role Status Dates Dr. Molly Castillo MD Primary Care Provider Active Dr. Stef Bennett DO Attending Provider, Referring Provider Active Team Status: Inactive Member Role Status Dates Dr. Molly Castillo MD Primary Care Provider, Referring Provider Active Dr. Yeison Verma MD Attending Provider Active Team Status: Inactive Member Role Status Dates Dr. Molly Castillo MD Primary Care Provider Active Dr. Debbie Delgadillo MD Attending Provider, Emergency Provider Active Team Status: Inactive Member Role Status Dates Dr. Molly Castillo MD Primary Care Provider Active Dr. Titi Jesus MD Emergency Provider Active Team Status: Active Member Role Status Dates ELI BRAGG , [employer] Primary Care Provider Active Team Status: Active Member Role Status Dates Dr. Capo Yu MD Attending Provider, Referring Provider Active ELI BRAGG , [employer] Primary Care Provider Active Team Status: Inactive Member Role Status Dates ELI BRAGG , [employer] Primary Care Provider Active Dr. Lucas Marshall DO Emergency Provider Active Team Status: Active Member Role Status Dates Dr. Aquiles Jones MD Primary Care Provider Active Dr. Woodrow Cristobal MD Attending Provider Active Team Status: Inactive Member Role Status Dates Dr. Isidro Dominguez MD Attending Provider, Emergency Provider Active Dr. Molly Castillo MD Primary Care Provider Active Team Status: Inactive Member Role Status Dates Dr. Molly Castillo MD Primary Care Provider Active Dr. Debbie Delgadillo MD Emergency Provider Active FOR RECORDS PERTAINING TO PATIENTS WHO ARE [...] BE BASED ON THE PRIMARY CLINICAL RECORDS. [employer] provides no warranty or guarantee of the accuracy or completeness of information in this document.
[2025-09-25 22:46] LABS: Mucous, Urine 0 SEEN /hpf (<or=2+); Red Blood Cells-Urine 0 SEEN /hpf (0-5)
[2025-09-25 22:48] LABS: Color, Urine Straw (Yellow); Glucose, Dipstick Normal (Normal); Ketone-Dipstick Negative (Negative); Leukocyte Esterase-Dipstick Negative /ul (Negative); Nitrite-Dipstick Negative (Negative); Occult Blood-Urine Negative /ul (Negative); Protein-Dipstick 15 mg/dl (Negative); Specific Gravity, Urine 1.010 (1.002-1.030); Urine Bilirubin Dipstick Negative (Negative)
[2025-09-25 22:53] LABS: Squamous Epithelial Cells - UA 0-5 SEEN /hpf (5-10)
[2025-09-25] MEDS: HYDROmorphone 0.5 MG/0.5 ML SYRINGE IV (22:53)
--- NOTE | 2025-09-25 23:05 | RAD_ITS ---
PROCEDURE: HIP MIN 2 VIEWS (PORTABLE) 09/25/2025 REASON FOR EXAM: HIP PAIN TECHNIQUE: Procedure Code: RADH_P Modality: DX Procedure: HIP MIN 2 VIEWS (PORTABLE) Laterality: Right COMPARISON: 06/04/2023 FINDINGS: Bones: No acute fractures. No suspicious osseous lesions. Joints: Normal alignment. Mild degenerative changes. Soft tissues: Soft tissues are unremarkable. RAD/Hip Min 2 Views (Portable) IMPRESSION: No acute fractures or dislocations. Mild degenerative changes. Reading [facility]
[2025-09-26] VITALS (10 sets, daily range): BP systolic 121–160; BP diastolic 59–78; PULSE 72–82; RESP 16–20; TEMP 36.6–37; O2SAT 94–100; BMI 33.3
--- OUTSIDE RECORDS SUMMARY | 2025-09-26 03:16 | XMS RPT_ITS | CCD ---
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 Leonie Peterson Primary Care Provider Dr. Leonie Peterson Referring Provider Dr. Stef Bennett Attending Provider Dr. Yeison Verma Attending Provider Dr. Leonie Peterson Primary Care Provider Dr. Leonie Peterson Referring Provider Dr. Omar Walters Attending Provider OLDER, ENTRY SPECIALIST-C ELI Primary Care Provider Dr. Stef Bennett Attending Provider Dr. Leonie Peterson Referring Provider Dr. Leonie Peterson Referring Provider Dr. Omar Walters Attending Provider OLDER, ENTRY SPECIALIST-C ELI Primary Care Provider Dr. Stef Bennett Attending Provider Dr. Aquiles Jones Primary Care Provider Dr. Tej Corley Attending Provider [phone] Emergency Provider [phone] Dr. Miguelina Castanon Admit Provider Dr. Miguelina Castanon Other Provider Dr. Woodrow Cardenas Attending Provider Dr. Woodrow Cardenas Other Provider Dr. Woodrow Cristobal Attending Provider Dr. Julio Duong Attending Provider Dr. Julio Duong Other Provider Dr. Shady Burris Attending Provider Dr. Shady Burris Other Provider Dr. Woodrow Cardenas Referring Provider Dr. Yeison Verma Attending Provider GANTA, LEONIE Primary Care Unavailable TALON BRITT Consulting Unavailable JANETTDOMINICK Attending Unavailab le JANETT, DOMINICK RODNEY Admitting Unavailab le JANETT, DOMINICK RODNEY Attending Unavailab le GANTA, LEONIE Primary Care Unavailable JANETT, DOMINICK RODNEY Attending Unavailab le GANTA, LEONIE Primary Care Unavailable JANETTDOMINICK Attending Unavailab le GANTA, LEONIE Primary Care Unavailable YUE FRANKS Attending Unavailable SELF Referring Unavailable GANTA, LEONIE Primary Care Unavailable MAXWELL YUE Attending Unavailable GANTA, LEONIE Primary Care Unavailable JANETT, DOMINICK RODNEY Attending Unavailab le GANTA, LEONIE Primary Care Unavailable JANETT, DOMINICK RODNEY Attending Unavailab le SELF Referring Unavailable GANTA, LEONIE Primary Care Unavailable Jeffery, Alexia Attending Unavailable Ganta, Leonie Primary Care Unavailable Jeffery, Alexia Referring Unavailable Jeffery, Alexia Attending Unavailable Ganta, Leonie Primary Care Unavailable Stephenie Yu Consulting Unavailable Stephenie Yu Attending Unavailable Gigi Stephenie Admitting Unavailable Ganta, Leonie Primary Care Unavailable Rita Kenny Vani Attending Unavailable Ishaan Alvarado Consulting Unavailable Ferreira, Antwon Consulting Unavailable Jose Rosa Consulting Unavailable Zeyad Espinoza Consulting Unavailable Darryl Evans Consulting Unavailable Heladio Paige Consulting Unavailable Laisha, Nelson Consulting Unavailable HabteJovana schultzs Consulting Unavailab le Dand, Sebastian Consulting Unavailable Corral, Kd Consulting Unavailable Kvng Vizcaino Consulting Unavailable Jackie, Niyah Consulting Unavailable Aljundi, Lamia Consulting Unavailable Smith, Fela Consulting Unavailable Abilio, Kane Consulting Unavailable Irukulla, Vishnu Consulting Unavailable Jose, Eladio Consulting Unavailable Dhesi, Lion Consulting Unavailable Dianna Shah Consulting Unavailable Murali Arceo Consulting Unavailable Jorje Dixon Consulting Unavailable Gustavo Bal Consulting Unavailable Devante Stoddard Consulting Unavailable Karlam, Rita Vani Consulting Unavailable Stef Bennett Attending Unavailable OLDER, ELI Consulting Unavailable Ganta, Leonie Primary Care Unavailable Ganta, Leonie Referring Unavailable Donald, Stef Consulting Unavailable Tej Corley Attending Unavailabl indu Kenny, Rita Vani Referring Unavailable Zeyad Espinoza Attending Unavailable Friend, Stef Attending Unavailable OLDER, ELI Referring Unavailable Ganta, Leonie Primary Care Unavailable Ganta, Leonie Primary Care Unavailable Maylin Walters Attending Unavailable Friend, Stef Attending Unavailable Ganta, Leonie Primary Care Unavailable OLDER, ELI Consulting Unavailable Ganta, Leonie Referring Unavailable Ganta, Leonie Primary Care Unavailable Dominick Payton Attending Unavailable Dominick Payton Referring Unavailable Titi Jesus Attending Unavailable Ganta, Leonie Primary Care Unavailable Stephenie Yu Consulting Unavailable Stephenie Yu Attending Unavailable Stephenie Yu Admitting Unavailable Ganta, Leonie Primary Care Unavailable Ishaan Alvarado Consulting Unavailable Ferreira, Antwon Consulting Unavailable Jose Rosa Consulting Unavailable Zeyad Espinoza Consulting Unavailable Darryl Evans Consulting Unavailable Heladio Paige Consulting Unavailable Laisha, Nelson Consulting Unavailable Tawnyteantoine, Maria M Consulting Unavailab le Dand, Sebastian Consulting Unavailable Corral, Kd Consulting Unavailable Kvng Vizcaino Consulting Unavailable Jackie, Niyah Consulting Unavailable Aljundi, Lamia Consulting Unavailable Smith, Fela Consulting Unavailable Abilio, Kane Consulting Unavailable Irukulla, Vishnu Consulting Unavailable Jose, Eladio Consulting Unavailable Dhesi, Lion Consulting Unavailable Dianna Shah Consulting Unavailable Jewell Ridge, Soleyanoelle Consulting Unavailable Fernstrom, Jorje Consulting Unavailable Valeriano, Gustavo Consulting Unavailable Richi, Devante Consulting Unavailable Efraín, Rita Vani Consulting Unavailable Anna CORTÉS, Dr. Hadley Primary Care Provider Tova DONOVAN, Dr. Sal Emergency Provider Gigi CORTÉS, Dr. Casiano Admit Provider Gigi CORTÉS, Dr. Casiano Attending Provider Gigi CORTÉS, Dr. Casiano Other Provider Jenny CORTÉS, Dr. Contreras Other Provider Hanna CORTÉS, Dr. Kapoor Other Provider Moe CORTÉS, Dr. Garcia Other Provider Alexis DONOVAN, Dr. Jeffers Other Provider Nathan CORTÉS, Dr. Darryl Jiménez Other Provider [phone] Royal CORTÉS, Dr. Leija Other Provider Laisha CORTÉS, Dr. Damon Other Provider [phone] Don CORTÉS, Dr. Franz Other Provider Shyanne CORTÉS, Dr. Cortes Other Provider Dr. Kd Corral MD Other Provider [phone] Kvng Vizcaino MD Other Provider Dr. Niyah Mejia MD Other Provider Blayne CORTÉS, Dr. Estrada Other Provider Unavailabl indu Smith MD, Dr. Chahal Other Provider Dr. Kane Knox MD Other Provider Dr. Vishnu Herrera MD Other Provider Jose CORTÉS, Dr. Hendricks Other Provider Dr. Lion Khan DO Other Provider [phone] Alyssa CORTÉS, Dr. Bustamante Other Provider [phone] Marielos CORTÉS, Dr. Carrion Other Provider Zack DONOVAN, Dr. Recinos Other Provider Valeriano CORTÉS, Dr. Chen Other Provider Richi CORTÉS, Dr. Low Other Provider [phone] Efraín CORTÉS, Dr. Rita Ludwig Other Provider [phone] Jeffery CORTÉS, Dr. Hale Attending Provider Jeffery CORTÉS, Dr. Hale Referring Provider Efraín CORTÉS, Dr. Rita Ludwig Attending Provider Efraín CORTÉS, Dr. Rita Ludwig Referring Provider Dr. Zeyad Espinoza DO Attending Provider Jory CORTÉS, Dr. Burnham Attending Provider Edin CORTÉS, Dr. Walls Emergency Provider BENDARAM, ELHAM MCKAY Referring Unavaila ble GANTA, LEONIE Primary Care Unavailable GANTA, LEONIE Attending Unavailable GANTA, LEONIE Primary Care Unavailable OLDER, ELI Attending Unavailable GANTA, LEONIE Primary Care Unavailable OLDER, ELI Referring Unavailable GANTA, LEONIE Primary Care Unavailable OLDER, ELI Referring Unavailable GANTA, LEONIE Primary Care Unavailable LISS STUBBS Referring Unavailable GANTA, LEONIE Primary Care Unavailable OLDER, ELI Attending Unavailable GANTA, LEONIE Primary Care Unavailable CLICK, HAYLEE M Referring Unavailable GANTA, LEONIE Primary Care Unavailable CLICK, HAYLEE M Referring Unavailable GANTA, LEONIE Primary Care Unavailable CLICK, HAYLEE M Referring Unavailable GANTA, LEONIE Primary Care Unavailable OLDER, ELI Attending Unavailable SELF Referring Unavailable GANTA, LEONIE Primary Care Unavailable OLDER, ELI Referring Unavailable GANTA, LEONIE Primary Care Unavailable HARPSTER, MYKE Referring Unavailable GANTA, LEONIE Primary Care Unavailable HARPSTER, MYKE Attending Unavailable HARPSTER, MYKE Referring Unavailable GANTA, LEONIE Primary Care Unavailable BENDARAM, ELHAM MCKAY Referring Unavaila ble GANTA, LEONIE Primary Care Unavailable CLICK, HAYLEE M Attending Unavailable CLICK, HAYLEE M Referring Unavailable GANTA, LEONIE Primary Care Unavailable CHRISTA FRANZ Attending Unavailable OLDERELI Referring Unavailable GANTA, LEONIE Primary Care Unavailable BENDARAM, ELHAM MCKAY Attending Unavaila ble GANTA, LEONIE Primary Care Unavailable BENDARAM, ELHAM MCKAY Referring Unavaila ble GANTA, LEONIE Primary Care Unavailable FRANZCHRISTA MALIK Attending Unavailable GANTA, LEONIE Primary Care Unavailable OLDER, ELI Attending Unavailable GANTA, LEONIE Primary Care Unavailable CLICK, HAYLEE M Attending Unavailable GANTA, LEONIE Primary Care Unavailable CLICK, HAYLEE M Referring Unavailable GANTA, LEONIE Primary Care Unavailable GANTA, LEONIE Primary Care Unavailable OLDER, ELI Referring Unavailable OLDER, ELI Attending Unavailable GANTA, LEONIE Primary Care Unavailable BENDARAM, ELHAM MCKAY Attending Unavaila ble GANTA, LEONIE Primary Care Unavailable GOINSTRACEY D Referring Unavailable GANTA, LEONIE Primary Care Unavailable OLDERELI Referring Unavailable GANTA, LEONIE Primary Care Unavailable CHRISTA FRANZ Attending Unavailable GANTA, LEONIE Primary Care Unavailable CLICK, HAYLEE M Referring Unavailable GANTA, LEONIE Primary Care Unavailable BENDARAM, ELHAM MCKAY Attending Unavaila ble GANTA, LEONIE Primary Care Unavailable CLICK, HAYLEE M Referring Unavailable GANTA, LEONIE Primary Care Unavailable CLICK, HAYLEE M Referring Unavailable GANTA, LEONIE Primary Care Unavailable CLICK, HAYLEE M Attending Unavailable GANTA, LEONIE Primary Care Unavailable OLDER, ELI Attending Unavailable GANTA, LEONIE Primary Care Unavailable LISS STUBBS Attending Unavailable GANTA, LEONIE Primary Care Unavailable LISS STUBBS Referring Unavailable GANTA, LEONIE Primary Care Unavailable GANTA, LEONIE Attending Unavailable GANTA, LEONIE Primary Care Unavailable GOINSTRACEY Attending Unavailable GOINS TRACEY D Referring Unavailable GANTA, LEONIE Primary Care Unavailable DOMINICK PAYTON Referring Unavailab le GANTA, LEONIE Primary Care Unavailable BENDARAM, ELHAM MCKAY Referring Unavaila ble GANTA, LEONIE Primary Care Unavailable TRACEY GOINS D Referring Unavailable GANTA, LEONIE Primary Care Unavailable BENDARAM, ELHAM MCKAY Attending Unavaila ble GANTA, LEONIE Primary Care Unavailable Allergies Allergy Classification Reported Allergen(s) Allergy Type Date of Onset Reaction(s) Facility (1 source) traMADol Drug Allergy 05-22-2016 Nausea Only [facility]- [place], [place] Medications Current Medications Medication Drug Class(es) Dates Sig (Normalized) Sig (Original) albuterol 0.83 mg/ml inhalation solution (14 sources) beta2-Adrenergic Agonist Start: 11-23-2024 take 2.5 mg by inhalation every two hours as needed for wheezing Albuterol Sulfate 2.5 mg /3 mL (0.083 %) Solution For Nebulization Active 2.5 mg INHALATION EVERY 2 HOURS NEEDED as needed for SOB &/OR WHEEZING 90 November 23, 2024 1:00am Start: 08-26-2020 Albuterol Sulf ate 18 GM HFA aerosol inhaler Active 2 NMA INHALATION Q4H as needed for Wheezing August 26, 2020 1:00am Start: 08-26-2020 take 1 puff(s) by in halation every four hours as needed Albuterol Sulfate Active 2 PUFF IH EVERY 4 HOURS NEEDED August 26, 2020 12:00am aspirin 81 mg chewable tablet (13 sources) Platelet Aggregation Inhibitor, Nonsteroidal Anti-inflammatory Drug Start: 08-26-2020 take 1 tablet by mouth once daily Aspirin 81 MG tablet,chewable Active 81 mg PO DAILY August 26, 2020 1:00am atorvastatin 40 mg oral tablet (13 sources) HMG-CoA Reductase Inhibitor Start: 02-07-2021 take 1 tablet by mouth once daily Atorvastatin 40 mg tablet Active 40 mg PO DAILY February 07, 2021 12:00am Budesonide-Glycop yr-Formoterol (9 sources) Corticosteroid, beta2-Adrenergic Agonist Start: 02-08-2023 Budesonide-Glycopyr- Formoterol (Breztri Aerosphere) 160-9-4.8 mcg/actuation HFA aerosol inhaler Active 2 NMA INHALATION TWICE A DAY February 08, 2023 12:00am Start: 02-08-2023 Budesonide-Gly copyr-Formoterol (Breztri Aerosphere) 160-9-4.8 mcg/actuation HFA aerosol inhaler Active 2 INH INHALATION TWICE A DAY February 07, 2023 11:00pm Start: 02-08-2023 Budesonide-Gly copyr-Formoterol (Breztri Aerosphere) 160-9-4.8 mcg/actuation HFA aerosol inhaler Active 2 INH INHALATION TWICE A DAY February 08, 2023 12:00am diclofenac sodium 0.01 mg/mg topical gel (18 sources) Nonsteroidal Anti-inflammatory Drug Start: 02-08-2023 End: 02-15-2023 Diclofenac Sodium (Voltaren Arthritis Pain) 1 % gel Active 2 g TOPICAL TWICE A DAY as needed for pain February 15, 2023 1:09pm apply to single elbow, wrist or hand; for hand includes palm/fingers/back of hand famotidine 40 mg oral tablet (1 source) Histamine-2 Receptor Antagonist Start: 11-17-2024 take 1 tablet by mouth at bedtime Famotidine 40 mg tablet Active 40 mg PO AT BEDTIME November 17, 2024 1:00am furosemide 20 mg oral tablet (11 sources) Loop Diuretic Start: 10-17-2022 take 1 tablet by mouth once daily Furosemide 20 mg tablet Active 20 mg PO DAILY October 17, 2022 1:00am ipratropium bromide 0.2 mg/ml inhalation solution (1 source) Anticholinergic Start: 11-23-2024 take 0.5 mg by inhalation every six hours Ipratropium Anderson 0.02 % Solution Active 0.5 mg INHALATION EVERY 6 HOURS WHILE AWAKE November 23, 2024 1:00am levoFLOXacin 750 mg oral tablet (14 sources) Quinolone Antimicrobial Start: 11-23-2024 take 1 tablet by mouth once daily Levofloxacin 750 mg Tablet Active 750 mg PO DAILY 2 2 November 23, 2024 1:00am first dose 11/24/24 Start: 02-10-2021 End: 07-30-2022 take 1 tablet by mouth once daily Levofloxacin 500 mg tablet Discontinued 500 mg PO DAILY February 10, 2021 12:00am July 30, 2022 3:44pm lisinopril 30 mg oral tablet (14 sources) Angiotensin Converting Enzyme Inhibitor Start: 11-17-2024 take 1 tablet by mouth once daily Lisinopril 30 mg tablet Active 30 mg PO DAILY November 17, 2024 1:00am Start: 08-26-2020 End: 11-17-2024 take 3 tablets by mouth once daily Lisinopril 10 MG tablet Discontinued 30 mg PO DAILY August 26, 2020 1:00am November 17, 2024 2:55pm Start: 08-26-2020 take 20 mg by mouth once daily Lisinopril Active 20 MG PO DAILY August 26, 2020 12:00am Start: 08-26-2020 take 10 mg by mouth once daily Lisinopril Active 10 MG PO DAILY August 26, 2020 1:00am methIMAzole 5 mg oral tablet (1 source) Thyroid Hormone Synthesis Inhibitor Start: 11-17-2024 take 1 tablet by mouth once daily Methimazole 5 mg tablet Active 5 mg PO DAILY November 17, 2024 1:00am omeprazole 40 mg delayed release oral capsule (6 sources) Proton Pump Inhibitor Start: 08-05-2023 End: 04-27-2024 take 1 capsule by mouth once daily Omeprazole 40 mg capsule,delayed release(DR/EC) Active 40 mg PO DAILY April 27, 2024 12:00am PHENobarbital 97.2 mg oral tablet (1 source) Start: 04-13-2020 PHENobarbital (LUMINAL) tablet 97.2 mg predniSONE 20 mg oral tablet (20 sources) Start: 11-23-2024 take 2 tablets by mouth at breakfast Prednisone 20 mg Tablet Active 40 mg PO WITH BREAKFAST 8 November 23, 2024 1:00am first dose 11/24/24 Start: 06-04-2023 End: 08-12-2023 take 3 tablets by mouth once daily Prednisone 20 mg tablet Discontinued 60 mg PO DAILY June 04, 2023 12:00am August 12, 2023 2:24pm Start: 06-04-2023 End: 08-12-2023 take 60 mg by mouth once daily Prednisone Discontinued 60 MG PO DAILY June 03, 2023 11:00pm August 12, 2023 1:24pm Start: 07-30-2022 End: 02-08-2023 take 3 tablets by mouth once daily Prednisone 20 mg tablet Discontinued 60 mg PO DAILY July 30, 2022 12:00am February 08, 2023 1:24pm Start: 07-30-2022 End: 02-08-2023 take 60 mg by mouth once daily Prednisone Discontinued 60 MG PO DAILY July 29, 2022 11:00pm February 08, 2023 12:24pm Start: 02-10-2021 End: 07-30-2022 take 2 tablets by mouth once daily Prednisone 20 mg tablet Discontinued 40 mg PO DAILY February 10, 2021 12:00am July 30, 2022 3:44pm Start: 02-10-2021 End: 07-30-2022 take 40 mg by mouth once daily Prednisone Discontinued 40 MG PO DAILY February 09, 2021 11:00pm July 30, 2022 2:44pm Start: 09-15-2020 End: 02-10-2021 take 3 tablets by mouth once daily Prednisone 10 MG tablet Discontinued 10 mg PO DAILY September 15, 2020 1:00am February 10, 2021 11:31am 40 mg aily for 3 days 30 mg daily for 3 days 20 mg daily for 3 days 10 mg daily 3 days Start: 09-15-2020 End: 02-10-2021 take 30 mg by mouth once daily Prednisone Discontinued 10 MG PO DAILY September 15, 2020 12:00am February 10, 2021 10:31am 40 mg aily for 3 days 30 mg daily for 3 days 20 mg daily for 3 days 10 mg daily 3 days tiZANidine 4 mg oral tablet (14 sources) Central alpha-2 Adrenergic Agonist Start: 11-17-2024 take 1 tablet by mouth every eight hours as needed for muscle spasms Tizanidine 4 mg tablet Active 4 mg PO EVERY 8 HOURS as needed for muscle spasms November 17, 2024 1:00am Start: 08-26-2020 End: 11-17-2024 take 2 capsules by mouth every eight hours as needed for muscle spasms Tizanidine 2 MG capsule Discontinued 4 mg PO EVERY 8 HOURS as needed for Muscle Spasm August 26, 2020 1:00am November 17, 2024 2:59pm Completed/Discontinued Medications Medication Drug Class(es) Dates Sig (Normalized) Sig (Original) acetaminophen 500 mg oral tablet (18 sources) Start: 08-12-2023 End: 11-17-2024 take 2 tablets by mouth every eight hours as needed for pain Acetaminophen 500 mg Tablet Discontinued 1000 mg PO EVERY 8 HOURS as needed for pain April 27, 2024 12:00am November 17, 2024 2:52pm Start: 08-12-2023 take 1000 mg by mout h every eight hours Acetaminophen Active 1000 MG PO EVERY 8 HOURS 84 August 12, 2023 12:00am Start: 08-29-2020 End: 02-08-2023 take 2 tablets by mouth every six hours as needed for pain Acetaminophen 325 MG tablet Discontinued 650 mg PO EVERY 6 HOURS NEEDED as needed for pain August 29, 2020 1:00am February 08, 2023 1:25pm Start: 08-29-2020 End: 02-08-2023 take 650 mg by mouth every six hours as needed Acetaminophen Discontinued 650 MG PO EVERY 6 HOURS NEEDED August 29, 2020 12:00am February 08, 2023 12:25pm acetaminophen 325 mg / oxyCODONE hydrochloride 5 mg oral tablet (17 sources) Opioid Agonist Start: 02-15-2023 End: 08-12-2023 Oxycodone-Acetaminophen (Percocet) 5-325 mg tablet Discontinued 1 {tbl} PO EVERY 6 HOURS 12 June 04, 2023 August 12, 2023 2:22pm albuterol 0.833 mg/ml / ipratropium bromide 0.167 mg/ml inhalation solution (9 sources) Anticholiner gic, beta2-Adrene rgic Agonist Start: 02-08-2023 End: 11-17-2024 take 1 mL by inhalation three times daily as needed for wheezing Ipratropium-Albuterol 0.5 mg-3 mg(2.5 mg base)/3 mL solution for nebulization Discontinued 3 mL INHALATION THREE TIMES A DAY as needed for shortness of breath or wheezing February 08, 2023 12:00am November 17, 2024 2:55pm Start: 02-08-2023 take 1 mL by inhalat ion three times daily Ipratropium-Albuterol Active 3 ML INHALATION THREE TIMES A DAY February 07, 2023 11:00pm azithromycin 250 mg oral tablet (13 sources) Macrolide Antimicrobial Start: 07-30-2022 End: 02-08-2023 take 1 tablet by mouth once daily Azithromycin 250 mg tablet Discontinued 250 mg PO DAILY July 30, 2022 12:00am February 08, 2023 1:24pm cilostazol 100 mg oral tablet (13 sources) Phosphodiesterase 3 Inhibitor Start: 08-26-2020 End: 02-08-2023 take 1 tablet by mouth twice daily Cilostazol 100 MG tablet Discontinued 100 mg PO TWICE A DAY August 26, 2020 1:00am February 08, 2023 1:24pm docusate sodium 50 mg / sennosides, detention 8.6 mg oral tablet (4 sources) Start: 08-12-2023 End: 04-27-2024 Sennosides-Docusa te Sodium (Stool Softener-Stimulan t Laxat) 8.6-50 mg Tablet Discontinued 2 {tbl} PO TWICE A DAY 120 August 12, 2023 1:00am April 27, 2024 10:18am 0.4 ml enoxaparin sodium 100 mg/ml prefilled syringe (4 sources) Low Molecular Weight Heparin Start: 08-12-2023 End: 04-27-2024 Enoxaparin (Lovenox) 40 mg/0.4 mL syringe Discontinued 40 mg SC DAILY 5.6 August 12, 2023 1:00am April 27, 2024 10:21am etodolac 400 mg oral tablet (9 sources) Nonsteroidal Anti-inflammatory Drug Start: 02-08-2023 End: 08-12-2023 take 1 tablet by mouth twice daily Etodolac 400 mg tablet Discontinued 400 mg PO TWICE A DAY February 08, 2023 12:00am August 12, 2023 2:23pm Fluticasone Propion-Salmeterol (13 sources) Corticosteroid, beta2-Adrenergic Agonist Start: 02-10-2021 End: 02-08-2023 Fluticasone Propion-Salmetero l (Advair Hfa) 45-21 mcg/actuation HFA aerosol inhaler Discontinued 2 NMA INHALATION TWICE A DAY February 10, 2021 12:00am February 08, 2023 1:24pm Start: 02-10-2021 End: 02-08-2023 take 1 puff(s) by inhalation twice daily Fluticasone Propion-Salmeterol (Advair Hfa) 45-21 mcg/actuation HFA aerosol inhaler Discontinued 2 PUFF INHALATION TWICE A DAY February 09, 2021 11:00pm February 08, 2023 12:24pm Start: 02-10-2021 End: 02-08-2023 take 1 puff(s) by inhalation twice daily Fluticasone Propion-Salmeterol (Advair Hfa) 45-21 mcg/actuation HFA aerosol inhaler Discontinued 2 PUFF INHALATION TWICE A DAY February 10, 2021 12:00am February 08, 2023 1:24pm Start: 02-10-2021 take 1 puff(s) by in halation twice daily Fluticasone Propion-Salmeterol (Advair Hfa) 45-21 mcg/actuation HFA aerosol inhaler Active 2 PUFF INHALATION TWICE A DAY February 09, 2021 11:00pm Start: 02-10-2021 take 1 puff(s) by in halation twice daily Fluticasone Propion-Salmeterol (Advair Hfa) 45-21 mcg/actuation HFA aerosol inhaler Active 2 PUFF INHALATION TWICE A DAY February 10, 2021 12:00am gabapentin 100 mg oral capsule (20 sources) Anti-epileptic Agent Start: 08-05-2023 End: 11-17-2024 take 4 capsules by mouth at bedtime Gabapentin 100 mg capsule Discontinued 400 mg PO AT BEDTIME August 05, 2023 1:00am November 17, 2024 2:55pm Start: 08-05-2023 take 400 mg by mouth at bedtim e Gabapentin Active 400 MG PO AT BEDTIME August 05, 2023 12:00am Start: 09-12-2020 End: 11-17-2024 take 1 capsule by mouth three times daily Gabapentin 300 mg capsule Discontinued 300 mg PO THREE TIMES A DAY February 08, 2023 1:21pm November 17, 2024 2:55pm 12 hr guaiFENesin 600 mg extended release oral tablet (20 sources) Start: 02-08-2023 End: 02-15-2023 take 1 tablet by mouth twice daily Guaifenesin 600 mg tablet extended release 12hr Discontinued 600 mg PO TWICE A DAY February 08, 2023 12:00am February 15, 2023 1:10pm Start: 02-08-2023 End: 02-15-2023 take 600 mg by mouth twice daily Guaifenesin Discontinued 600 MG PO TWICE A DAY February 07, 2023 11:00pm February 15, 2023 12:10pm Start: 09-15-2020 End: 02-08-2023 take 1 tablet by mouth twice daily Guaifenesin 1,200 MG tablet extended release 12hr Discontinued 1200 mg PO TWICE A DAY September 15, 2020 1:00am May 12th, 2023 1:04pm meloxicam 15 mg oral tablet (20 sources) Nonsteroidal Anti-inflammatory Drug Start: 02-08-2023 End: 04-27-2024 take 1 tablet by mouth once daily Meloxicam 15 mg tablet Discontinued 15 mg PO DAILY February 08, 2023 12:00am April 27, 2024 10:19am Start: 08-26-2020 End: 02-08-2023 take 1 tablet by mouth once daily Meloxicam 7.5 MG tablet Discontinued 7.5 mg PO DAILY August 29, 2020 12:16pm February 08, 2023 1:02pm 24 hr nicotine 0.292 mg/hr transdermal system (13 sources) Cholinergic Nicotinic Agonist Start: 02-10-2021 End: 02-08-2023 apply 1 dose transdermal route every twenty-four hours Nicotine (Nicoderm Cq) 7 mg/24 hr patch 24 hour Discontinued 1 NMA TD Q24H February 10, 2021 12:00am February 08, 2023 1:24pm Start: 02-10-2021 End: 02-08-2023 Nicotine (Nicoderm Cq) 7 mg/ 24 hr patch 24 hour Discontinued 1 PATCH TD Q24H February 09, 2021 11:00pm February 08, 2023 12:24pm 24 hr oxybutynin chloride 10 mg extended release oral tablet (20 sources) Cholinergic Muscarinic Antagonist Start: 02-08-2023 End: 04-27-2024 take 1 tablet by mouth once daily Oxybutynin Chloride 10 mg tablet extended release 24hr Discontinued 10 mg PO DAILY February 08, 2023 12:00am April 27, 2024 10:45am Start: 08-26-2020 End: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 4321-2, 6-3, ####[facility] LABCLIA [id number] [place] [id number] [place] CO2 [Moles/Vol] 26 mmol/L Normal 22-30 [facility] Comment on above: Order Comment: Speci men Type: BLOOD SPECIMENOrdering Facility: [facility] Address: [address] [place] [address] Performed By: #### 2 4321-2, 3015-3, ####[facility] LABIA [id number] [place] [id number] [place] Creatinine [Mass/Vol] 1.00 mg/dL High 0.58-0.96 [facility] Comment on above: Order Comment: Speci men Type: BLOOD SPECIMENOrdering Facility: [facility] Address: [address] [place] [address] Performed By: #### 2 4321-2, 3, ####[facility] LABIA [id number] [place] [address] [place] Creatinine and Glomerular filtration rate.predicted panel (S/P/Bld) 61 mL/min/1.73m??? Normal >=60 [facility] Comment on above: Order Comment: Speci men Type: BLOOD SPECIMENOrdering Facility: [facility] Address: [address] [place] [address] Result Comment: Sigrid mated Glomerular Filtration Rate [...] reflect actual GFR. Performed By: #### 2 4321-2, 6-3, ####[facility] LABCLIA [id number] [place] [id number] [place] Glucose [Mass/Vol] 103 mg/dL High 74-99 [facility] Comment on above: Order Comment: Speci men Type: BLOOD SPECIMENOrdering Facility: [facility] Address: [address] [place] [address] Result Comment: The [place] [employer] (ADA) provides guidance for cutoff [...] Standards of Medical Care in Diabetes 2016, [place] [employer]. Diabetes Care. 2016.39(Suppl 1). Performed By: #### 2 4321-2, 3015-3, ####[facility] [id number] [place] [address] [place] Potassium [Moles/Vol] 4.0 mmol/L Normal 3.7-5.1 [facility] Comment on above: Order Comment: Speci men Type: BLOOD SPECIMENOrdering Facility: [facility] Address: [address] [place], [place] [address] Performed By: #### 2 4321-2, 3, ####[facility] [id number] [place] [address] [place] Sodium [Moles/Vol] 142 mmol/L Normal 136-144 [facility] Comment on above: Order Comment: Speci men Type: BLOOD SPECIMENOrdering Facility: [facility] Address: [address] [place], [place] [address] Performed By: #### 2 4321-2, 3, ####[facility] LABCLIA [id number] [address] [address] [place] Urea nitrogen [Mass/Vol] 10 mg/dL Normal 7-21 [facility] Comment on above: Order Comment: Speci men Type: BLOOD SPECIMENOrdering Facility: [facility] Address: [address] [place] [address] Performed By: #### 2 4321-2, 3016-3, 03558-7 ####[facility] LABCLIA [id number] [address] [address] [place] Basophil percentageOrdered B y: Titi Jesus on 12-11-2024 Basophils/100 WBC (Bld) 0.5 % 0-1 [facility] CBC W Auto Differential pane l (Bld)on 12-11-2024 Basophils (Bld) [#/Vol] 10*3/uL Normal <0.11 [facility] Comment on above: Order Comment: Speci men Type: BLOOD SPECIMENOrdering Facility: [facility] Address: [address] [place] [address] Performed By: #### 5 7021-8 ####[facility] LABCLIA [id number] [place] [address] [place] Basophils/100 WBC (Bld) 0.4 % Normal [facility] Comment on above: Order Comment: Speci men Type: BLOOD SPECIMENOrdering Facility: [facility] Address: [address] [place] [address] Performed By: #### 5 7021-8 ####[facility] LABCLIA [id number] [place] [address] [place] Differential cell count method Nom (Bld) Auto Normal [facility] Comment on above: Order Comment: Speci men Type: BLOOD SPECIMENOrdering Facility: [facility] Address: [address] [place] [address] Performed By: #### 5 7021-8 ####[facility] LABCLIA [id number] [place] [address] [place] Eosinophils (Bld) [#/Vol] 0.26 10*3/uL Normal <0.46 [facility] Comment on above: Order Comment: Speci men Type: BLOOD SPECIMENOrdering Facility: [facility] Address: [address] [place] [address] Performed By: #### 5 7021-8 ####[facility] LABCLIA [id number] [place] [address] [place] Eosinophils/100 WBC (Bld) 4.7 % Normal [facility] Comment on above: Order Comment: Speci men Type: BLOOD SPECIMENOrdering Facility: [facility] Address: [address] [place] [address] Performed By: #### 5 7021-8 ####[facility] LABCLIA [id number] [place] [address] [place] Erythrocyte distribution width (RBC) [Ratio] 14.4 % Normal 11.5-15.0 [facility] Comment on above: Order Comment: Speci men Type: BLOOD SPECIMENOrdering Facility: [facility] Address: [address] [place] [address] Performed By: #### 5 7021-8 ####[facility] LABCLIA [id number] [place] [address] [place] Hematocrit (Bld) [Volume fraction] 41.9 % Normal 36.0-46.0 [facility] Comment on above: Order Comment: Speci men Type: BLOOD SPECIMENOrdering Facility: [facility] Address: [address] [place] [address] Performed By: #### 5 7021-8 ####[facility] LABCLIA [id number] [address], [facility] [place] Hemoglobin (Bld) [Mass/Vol] 13.5 g/dL Normal 11.5-15.5 [facility] Comment on above: Order Comment: Speci men Type: BLOOD SPECIMENOrdering Facility: [facility] Address: [address] [place] [address] Performed By: #### 5 7021-8 ####[facility] LABCLIA [id number] [address] [place] [address] [place] Immature granulocytes (Bld) [#/Vol] 10*3/uL Normal <0.10 [facility] Comment on above: Order Comment: Speci men Type: BLOOD SPECIMENOrdering Facility: [facility] Address: [address] [place] [address] Performed By: #### 5 7021-8 ####[facility] LABCLIA [id number] [place] [address] [place] Immature granulocytes/100 WBC (Bld) 0.0 % Normal [facility] Comment on above: Order Comment: Speci men Type: BLOOD SPECIMENOrdering Facility: [facility] Address: [address] [place] [address] Performed By: #### 5 7021-8 ####[facility] LABCLIA [id number] [place] [address] [place] Lymphocytes (Bld) [#/Vol] 1.81 10*3/uL Normal 1.00-4.00 [facility] Comment on above: Order Comment: Speci men Type: BLOOD SPECIMENOrdering Facility: [facility] Address: [address] [place] [address] Performed By: #### 5 7021-8 ####[facility] LABCLIA [id number] [place] [id number] [place] Lymphocytes/100 WBC (Bld) 32.4 % Normal [facility] Comment on above: Order Comment: Speci men Type: BLOOD SPECIMENOrdering Facility: [facility] Address: [address] [place] [address] Performed By: #### 5 7021-8 ####[facility] LABIA [id number] [place] [address] [place] MCH (RBC) [Entitic mass] 28.8 pg Normal 26.0-34.0 [facility] Comment on above: Order Comment: Speci men Type: BLOOD SPECIMENOrdering Facility: [facility] Address: [address] [place] [address] Performed By: #### 5 7021-8 ####[facility] LABIA [id number] [place] [address] [place] MCHC (RBC) [Mass/Vol] 32.2 g/dL Normal 30.5-36.0 [facility] Comment on above: Order Comment: Speci men Type: BLOOD SPECIMENOrdering Facility: [facility] Address: [address] [place] [address] Performed By: #### 5 7021-8 ####[facility] LABIA [id number] [place] [address] [place] MCV (RBC) [Entitic vol] 89.5 fL Normal 80.0-100.0 [facility] Comment on above: Order Comment: Speci men Type: BLOOD SPECIMENOrdering Facility: [facility] Address: [address] [place] [address] Performed By: #### 5 7021-8 ####[facility] [id number] [place] [address] [place] Monocytes (Bld) [#/Vol] 0.39 10*3/uL Normal <0.87 [facility] Comment on above: Order Comment: Speci men Type: BLOOD SPECIMENOrdering Facility: [facility] Address: [address] [place] [address] Performed By: #### 5 7021-8 ####[facility] LABIA [id number] [address] [place] Monocytes/100 WBC (Bld) 7.0 % Normal [facility] Comment on above: Order Comment: Speci men Type: BLOOD SPECIMENOrdering Facility: [facility] Address: [address] [place] [address] Performed By: #### 5 7021-8 ####[facility] LABCLIA [id number] [place] [id number] [place] Neutrophils (Bld) [#/Vol] 3.11 10*3/uL Normal 1.45-7.50 [facility] Comment on above: Order Comment: Speci men Type: BLOOD SPECIMENOrdering Facility: [facility] Address: [address] [place] [address] Performed By: #### 5 7021-8 ####[facility] LABCLIA [id number] [place] [address] [place] Neutrophils/100 WBC (Bld) 55.5 % Normal [facility] Comment on above: Order Comment: Speci men Type: BLOOD SPECIMENOrdering Facility: [facility] Address: [address] [place] [address] Performed By: #### 5 7021-8 ####[facility] LABCLIA [id number] [place] [address] [place] Nucleated RBC (Bld) [#/Vol] 10*3/uL Normal <0.01 [facility] Comment on above: Order Comment: Speci men Type: BLOOD SPECIMENOrdering Facility: [facility] Address: [address] [place] [address] Performed By: #### 5 7021-8 ####[facility] LABCLIA [id number] [place] [address] [place] Nucleated RBC/100 WBC (Bld) [Ratio] 0.0 /100 WBC Normal [facility] Comment on above: Order Comment: Speci men Type: BLOOD SPECIMENOrdering Facility: [facility] Address: [address] [place] [address] Performed By: #### 5 7021-8 ####[facility] LABCLIA [id number] [facility] [address] [place] [address] [place] Platelet mean volume (Bld) [Entitic vol] 10.2 fL Normal 9.0-12.7 [facility] Comment on above: Order Comment: Speci men Type: BLOOD SPECIMENOrdering Facility: [facility] Address: [address] [place] [address] Performed By: #### 5 7021-8 ####[facility] LABCLIA [id number] [address] [place] [address] [place] Platelets (Bld) [#/Vol] 259 10*3/uL Normal 150-400 [facility] Comment on above: Order Comment: Speci men Type: BLOOD SPECIMENOrdering Facility: [facility] Address: [address] [place] [address] Performed By: #### 5 7021-8 ####[facility] LABIA [id number] [address] [place] [address] [place] RBC (Bld) [#/Vol] 4.68 10*6/uL Normal 3.90-5.20 [facility] Comment on above: Order Comment: Speci men Type: BLOOD SPECIMENOrdering Facility: [facility] Address: [address] [place] [address] Performed By: #### 5 7021-8 ####[facility] LABCLIA [id number] [address] [place] [address] [place] WBC (Bld) [#/Vol] 5.59 10*3/uL Normal 3.70-11.00 [facility] Comment on above: Order Comment: Speci men Type: BLOOD SPECIMENOrdering Facility: [facility] Address: [address] [place] [address] Performed By: #### 5 7021-8 ####[facility] LABIA [id number] [address] [place] [address] [place] CBC W/Diff, Automatedon 03-1 Absolute Lymph 2.11 X10 3/uL Normal 0.83-4.51 [facility] Comment on above: Performed By: #### L 509.7000 #### [facility] [address] [place], [address] Absolute Neut 2.7 X10 3/uL Normal 2.0-7.7 [facility] Comment on above: Performed By: #### L 509.7000 #### [facility] [address] [place], [address] Basophils/100 WBC (Bld) 0.5 % Normal 0-1 [facility] Comment on above: Performed By: #### L 509.7000 #### [facility] [address] [place], [address] Eosinophils/100 WBC (Bld) 4.8 % Normal 0-5 [facility] Comment on above: Performed By: #### L 509.7000 #### [facility] [address] [place], [address] Erythrocyte distribution width (RBC) [Ratio] 14.3 % Normal 11.6-14.6 [facility] Comment on above: Performed By: #### L 509.7000 #### [facility] [address] [place], [address] Hematocrit (Bld) [Volume fraction] 39.5 % Normal 37-47 [facility] Comment on above: Performed By: #### L 509.7000 #### [facility] [address] [place], [address] Hemoglobin (Bld) [Mass/Vol] 13.0 g/dL Normal 12.0-15.0 [facility] Comment on above: Performed By: #### L 509.7000 #### [facility] [address] [place], [address] IG% 0.200 Normal 0.0-0.9 [facility] Comment on above: Result Comment: IG% - Immature Granulocytes (promyelocytes, myelocytes and metamyelocytes) > 1% indicates that a LEFT SHIFT is Present. Performed By: #### L 509.7000 #### [facility] [address] [place], [address] Lymphocytes/100 WBC (Bld) 37.9 % Normal 19-41 [facility] Comment on above: Performed By: #### L 509.7000 #### [facility] [address] [place], [address] MCH (RBC) [Entitic mass] 28.8 pg Normal 27.0-32.0 [facility] Comment on above: Performed By: #### L 509.7000 #### [facility] [address] [place], [address] MCHC (RBC) [Mass/Vol] 32.9 g/dL Normal 32-36 [facility] Comment on above: Performed By: #### L 509.7000 #### [facility] [address] [place], [address] MCV (RBC) [Entitic vol] 87.6 fL Normal 81-99 [facility] Comment on above: Performed By: #### L 509.7000 #### [facility] [address] [place], [address] Monocytes/100 WBC (Bld) 7.5 % Normal 0-10 [facility] Comment on above: Performed By: #### L 509.7000 #### [facility] [address] [place], [address] Neutrophils/100 WBC (Bld) 49.1 % Normal 47-70 [facility] Comment on above: Performed By: #### L 509.7000 #### [facility] [address] [place], [address] Nucleated RBC (Bld) [#/Vol] 0 10*3/uL Normal 0-5 [facility] Comment on above: Performed By: #### L 509.7000 #### [facility] [address] [place], [address] Platelet mean volume (Bld) [Entitic vol] 9.5 fL Normal 6.2-12.0 [facility] Comment on above: Performed By: #### L 509.7000 #### [facility] [address] [place], [address] Platelets (Bld) [#/Vol] 266 10*3/uL Normal 150-450 [facility] Comment on above: Performed By: #### L 509.7000 #### [facility] [address] [place], [address] RBC (Bld) [#/Vol] 4.51 10*6/uL Normal 4.2-5.4 [facility] Comment on above: Performed By: #### L 509.7000 #### [facility] [address] [place], [address] RDW SD 45.6 fl High 35.1-43.9 [facility] Comment on above: Performed By: #### L 509.7000 #### [facility] [address] [place], [address] WBC (Bld) [#/Vol] 5.6 10*3/uL Normal 4.4-11.0 [facility] Comment on above: Performed By: #### L 509.7000 #### [facility] [address] [place], [address] CNOVon 12-11-2024 CNOV Normal [facility] CTA Chest W/WO Contraston CTA Chest W/WO Contrast [facility] [address] [place] [address] CTA Chest W/WO Contrast MR#: [id number] Acct: [id number] Name: DIANNE ALVES Rep #: [id number] : 1955 F 69 From: Ramirez griggs MD PCP: Dr. Leonie Peterson MD Status: REG ER Study: CTA Chest W/WO Contrast Date of Exam: 12/11/24 Exam# [id number] Ordering Dr: Titi Jesus MD PROCEDURE: CTA CHEST W/WO CONTRAST [...] lobe consolidative opacity with air bronchograms, concerning for pneumonia. Moderate upper lobe predominant centrilobular emphysema. 3. Multiple low-attenuation thyroid lobe nodules. Recommend nonemergent thyroid ultrasound. One or more dose reduction techniques were used (e.g., Automated exposure control, adjustment of the mA and/or kV according to patient size, use of iterative reconstruction technique). Reading Location: [facility] CC: Dr. Leonie Peterson MD; Dr. Titi Jesus MD Drill Runner: Signed Normal [facility] Carbon dioxide, total [Moles /volume] in Central venous bloodOrdered By: Titi Jesus on 12-11-2024 CO2 [Moles/Vol] 23.3 mmol/L 21.0-32.0 [facility] Chloride assayOrdered By: Zheng Jesus on 12-11-2024 Chloride [Moles/Vol] 105 mmol/L 98-108 [facility] D dimer FEU PPP-mCncon 12-11 Fibrin D-dimer FEU (PPP) [Mass/Vol] 4180 ng/mL FEU High <500 [facility] Comment on above: Order Comment: Speci men Type: BLOOD SPECIMENOrdering Facility: [facility] Address: [address] [place] [address] Performed By: #### 4 8065-7 ####[facility] LABCLIA [id number] [place] [address] [place] [id number] 12-11-2024 ECG01 Normal [facility] Emergency Department Summary on 12-11-2024 Emergency Department Summary [facility] Medical Records Department [address] [place] [address] Emergency Department Summary 12/11/24 MR#: [id number] Acct: [id number] Name: DIANNE ALVES Rep #: [id number] : 1955 69 From: Titi Jesus MD PCP: Dr. Leonie Peterson MD Status:REG ER Location: ED HPI History of Present Illness Chief Complaint: Abn Labs Informant: patient Onset/Context/Timing Onset: Days Context: Gradual Onset Timing: Continuous Current Severity: Mild Maximum Severity: Mild Narrative Narrative: 69-year-old female history of prior ME, hep C, COPD, hypertension, prior lower extremity DVT. Currently not on blood thinners besides aspirin. Had a hospitalization last month for influenza. Followed up with her primary care provider and nurse practitioner today at the office. Had an elevated D-dimer for atypical right-sided chest pain and was sent to the emergency department for further evaluation. Patient describes discomfort in her right upper chest. Mild shortness of breath. No hemoptysis. No fever. No exertional chest pain or left-sided chest pain. Prior similar symptoms: No Recent Illness/Hospitalization: Yes [facility] Medical History Type 2 acute myocardial infarction [...] ???Type albuterol sulfate 90 mcg/actuation 2 puff inhalation Q4H PRN Wheezi ng 08/26/20 08/26/20 History aerosol inhaler aspirin 81 mg chewable tablet 81 mg PO DAILY BLOOD CLOT 08/26/20 11/16/24 History atorvastatin 40 mg tablet 40 mg PO DAILY 02/07/21 11/16/24 H istory furosemide 20 mg tablet 20 mg PO DAILY 10/17/22 11/16/24 H istory budesonide 160 mcg-glycopyr 9 2 inh inhalation BID 02/08/2310/31 History mcg-formot 4.8 mcg/actuation HFA inhaler (Breztri Aerosphere) diclofenac sodium 1 % topical gel 2 g topical BID PRN pain 02/15/23 11/16/24 History (Voltaren Arthritis Pain) omeprazole 40 mg capsule,delayed 40 mg PO DAILY 04/27/24 11/16/24 H istory release famotidine 40 mg tablet 40 mg PO QHS 11/17/24 Unknown Hist ory lisinopril 30 mg tablet 30 mg PO DAILY 11/17/24 11/16/24 H istory methimazole 5 mg tablet 5 mg PO DAILY 11/17/24 Unknown His tory tizanidine 4 mg tablet 4 mg PO Q8 PRN muscle spasms 11/17 Unknown History albuterol sulfate 2.5 mg/3 mL 2.5 mg (3 mL) inhalation Q2H PRN 0 11/23/24 Unknown Rx (0.083 %) solution for nebulization PRN SOB /OR WHEEZING #90 mL ipratropium bromide 0.02 % 0.5 mg (2.5 mL) inhalation 5 Unknown Rx solution for inhalation Q6HWA.RT #75 mL levofloxacin 750 mg tablet 750 mg PO DAILY 2 days #2 tabs Unknown Rx prednisone 20 mg tablet 40 mg (2 x 20 mg) PO BREAKFAST 4 0 11/23/24 Unknown Rx days #8 tabs Allergy/AdvReac [...] Genitourinary ED: Denies dysuria or hematuria Musculoskeletal (more content not included)... Normal [facility] Eosinophil percentageOrdered By: Titi Jesus on 12-11-2024 Eosinophils/100 WBC (Bld) 4.8 % 0-5 [facility] Erythrocyte distribution wid th ratioOrdered By: Titi Jesus on 12-11-2024 Erythrocyte distribution width (RBC) [Ratio] 14.3 % 11.6-14.6 [facility] Erythrocyte distribution wid th standard deviationOrdered By: Titi Jesus on 12-11-2024 Erythrocyte distribution width (RBC) [Entitic vol] 45.6 fL High 35.1-43.9 [facility] Estimation of creatinine adriana aranceOrdered By: Titi Jesus on 12-11-2024 Estimated Creatinine Clearance Calc 60.72 ml/min 50-250 [facility] Fibrin D-dimer FEU (PPP) [Ma ss/Vol]on 12-11-2024 D DIMER AGE-RELATED CUTOFF 680 ng/mL FEU Normal [facility] Comment on above: Order Comment: Speci men Type: BLOOD SPECIMENOrdering Facility: [facility] Address: [address] [place] [address] Performed By: #### 4 8065-7 ####[facility] LABCLIA [id number] [place] [address] [place] GFR/1.73 sq M.predicted zeina g non-blacks MDRD (S/P/Bld) [Vol rate/Area]Ordered By: Titi Jesus on 12-11-2024 Estimated GFR (MDRD) Non-Af Amer 59 Low >60 [facility] Comment on above: mL/min/1.73m2 CKD-EP I Creatinine Equation (2020) Hematocrit Auto (Bld) [Volum e fraction]Ordered By: Titi Jesus on 12-11-2024 Hematocrit (Bld) [Volume fraction] 39.5 % 37-47 [facility] Hemoglobin measurementOrdere d By: Titi Jesus on 12-11-2024 Hemoglobin (Bld) [Mass/Vol] 13.0 g/dL 12.0-15.0 [facility] Immature granulocytes/100 WB C Auto (Bld)Ordered By: Titi Jesus on 12-11-2024 Immature granulocytes/100 WBC (Bld) 0.200 % 0.0-0.9 [facility] Comment on above: IG% - Immature Granu locytes (promyelocytes, myelocytes and metamyelocytes) > 1% indicates that a LEFT SHIFT is Present. L499.0042on 12-11-2024 Trop T High Sen Normal <=14 [facility] Comment on above: Result Comment: Moraima abel via OM: Ordered Performed By: #### L 509.7000 #### [facility] [address] [place], [address] L501.4021on 12-11-2024 Trop T High Sen 14 ng/L Normal <=14 [facility] Comment on above: Performed By: #### L 501.4021 ####[facility] [address] [place], [address] Lymphocytes Auto (Unsp spec) [#/Vol]Ordered By: Titi Jesus on 12-11-2024 Lymphocytes (Bld) [#/Vol] 2.11 10*3/uL 0.83-4.51 [facility] Lymphocytes/100 WBC Auto (Un sp spec)Ordered By: Titi Jesus on 12-11-2024 Lymphocytes/100 WBC (Bld) 37.9 % 19-41 [facility] MCV (mean corpuscular volume ) determinationOrdered By: Titi Jesus on 12-11-2024 MCV (RBC) [Entitic vol] 87.6 fL 81-99 [facility] Magnesium SerPl-mCncon 12-11 Magnesium [Mass/Vol] 2.0 mg/dL Normal 1.7-2.3 [facility] Comment on above: Order Comment: Speci men Type: BLOOD SPECIMENOrdering Facility: [facility] Address: [address] [place] [address] Performed By: #### 2 4321-2, 3016-3, 04962-6 ####[facility] LABCLIA [id number] [place] [address] [place] Mean corpuscular hemoglobin (MCH) determinationOrdered By: Titi Jesus on 12-11-2024 MCH (RBC) [Entitic mass] 28.8 pg 27.0-32.0 [facility] Mean corpuscular hemoglobin concentration (MCHC) determinationOrdered By: Titi Jesus on 12-11-2024 MCHC (RBC) [Mass/Vol] 32.9 g/dL 32-36 [facility] Mean platelet volume determi nationOrdered By: Titi Jesus on 12-11-2024 Platelet mean volume (Bld) [Entitic vol] 9.5 fL 6.2-12.0 [facility] Monocyte percentageOrdered B y: Titi Jesus on 12-11-2024 Monocytes/100 WBC (Bld) 7.5 % 0-10 [facility] Neutrophil percentageOrdered By: Titi Jesus on 12-11-2024 Neutrophils/100 WBC (Bld) 49.1 % 47-70 [facility] No Panel InformationOrdered By: Titi Jesus on 12-11-2024 Troponin T High Sensitivity 14 ng/L <14 [facility] Nucleated red blood cell per centageOrdered By: Titi Jesus on 12-11-2024 Nucleated RBC/100 WBC (Bld) [Ratio] 0 % 0-5 [facility] Platelet countOrdered By: Zheng Jesus on 12-11-2024 Platelets (Bld) [#/Vol] 266 10*3/uL 150-450 [facility] Potassium (Unsp spec) [Mass/ Vol]Ordered By: Titi Jesus on 12-11-2024 Potassium [Moles/Vol] 3.7 mmol/L 3.3-5.1 [facility] RBC Auto (Bld) [#/Vol]Ordere d By: Titi Jesus on 12-11-2024 RBC (Bld) [#/Vol] 4.51 10*6/uL 4.2-5.4 [facility] Serum creatinine measurement (mass/volume)Ordered By: Titi Jesus on 12-11-2024 Creatinine [Mass/Vol] 1.03 mg/dL 0.70-1.20 [facility] Serum glucose measurement (m ass/volume)Ordered By: Titi Jesus on 12-11-2024 Glucose [Mass/Vol] 120 mg/dL High 70-99 [facility] Serum or plasma calcium margarita urement (mass/volume)Ordered By: Titi Jesus on 12-11-2024 Calcium [Mass/Vol] 9.6 mg/dL 7.6-11.0 [facility] Serum or plasma urea nitroge n measurement (mass/volume)Ordered By: Titi Jesus on 12-11-2024 Urea nitrogen [Mass/Vol] 12 mg/dL 4-19 [facility] Sodium levelOrdered By: Titi Jesus on 12-11-2024 Sodium [Moles/Vol] 141 mmol/L 133-145 [facility] TSH SerPl-aCncon 12-11-2024 TSH Qn 0.610 m[IU]/L Normal 0.270-4.200 [facility] Comment on above: Order Comment: Speci men Type: BLOOD SPECIMENOrdering Facility: [facility] Address: [address] [place] [address] Performed By: #### 2 4321-2, 3016-3, 38154-1 ####[facility] LABCLIA [id number] [address] White blood cell (WBC) count Ordered By: Titi Jesus on 12-11-2024 WBC (Bld) [#/Vol] 5.6 10*3/uL 4.4-11.0 [facility] XR CHEST 2V FRONTAL/LATon XR CHEST 2V FRONTAL/LAT Normal [facility] BD DXA - AXIAL SKELETONon BD DXA - AXIAL SKELETON Normal [facility] BD DXA TRABECLR BONE SCORE ( TBS)on 12-10-2024 BD DXA TRABECLR BONE SCORE (TBS) Normal [facility] Basic Metabolic Profile (BMP )on 11-26-2024 BUN Normal 7-18 [facility] Comment on above: Result Comment: Canc elled via OM: Order cancelled - Patient discharged Performed By: #### L 100.0100, L500.2500 #### [facility] [address] [place], [address] BUN/CRE Normal 10-20 [facility] Comment on above: Result Comment: Canc elled via OM: Order cancelled - Patient discharged Performed By: #### L 100.0100, L500.2500 #### [facility] [address] [place], [address] CA,Total Normal 8.5-10.1 [facility] Comment on above: Result Comment: Canc elled via OM: Order cancelled - Patient discharged Performed By: #### L 100.0100, L500.2500 #### [facility] [address] [place], [address] CL Normal 98-107 [facility] Comment on above: Result Comment: Canc elled via OM: Order cancelled - Patient discharged Performed By: #### L 100.0100, L500.2500 #### [facility] [address] [place], [address] CO2 Normal 21.0-32.0 [facility] Comment on above: Result Comment: Canc elled via OM: Order cancelled - Patient discharged Performed By: #### L 100.0100, L500.2500 #### [facility] [address] [place], [address] CREAT,SERUM Normal 0.55-1.02 [facility] Comment on above: Result Comment: Canc elled via OM: Order cancelled - Patient discharged Performed By: #### L 100.0100, L500.2500 #### [facility] [address] [place], [address] EST GFR Normal >60 [facility] Comment on above: Result Comment: Canc elled via OM: Order cancelled - Patient discharged Performed By: #### L 100.0100, L500.2500 #### [facility] [address] [place], [address] EST GFR - AA Normal >60 [facility] Comment on above: Result Comment: Canc elled via OM: Order cancelled - Patient discharged Performed By: #### L 100.0100, L500.2500 #### [facility] [address] [place], [address] GAP Normal 5-15 [facility] Comment on above: Result Comment: Canc elled via OM: Order cancelled - Patient discharged Performed By: #### L 100.0100, L500.2500 #### [facility] [address] [place], [address] GLU Normal 74-106 [facility] Comment on above: Result Comment: Canc elled via OM: Order cancelled - Patient discharged Performed By: #### L 100.0100, L500.2500 #### [facility] [address] [place], [address] Potassium Normal 3.5-5.1 [facility] Comment on above: Result Comment: Canc elled via OM: Order cancelled - Patient discharged Performed By: #### L 100.0100, L500.2500 #### [facility] [address] [place], [address] Basic Metabolic Profile (BMP) Normal 136-145 [facility] Comment on above: Result Comment: Canc elled via OM: Order cancelled - Patient discharged Performed By: #### L 100.0100, L500.2500 #### [facility] [address] [place], [address] CBC W/Diff, Automatedon 02-2 Absolute Neut Normal 2.0-7.7 [facility] Comment on above: Result Comment: Canc elled via OM: Order cancelled - Patient discharged Performed By: #### L 100.0100, L500.2500 #### [facility] [address] [place], [address] HCT Normal 37-47 [facility] Comment on above: Result Comment: Canc elled via OM: Order cancelled - Patient discharged Performed By: #### L 100.0100, L500.2500 #### [facility] [address] [place], [address] HGB Normal 12.0-15.0 [facility] Comment on above: Result Comment: Canc elled via OM: Order cancelled - Patient discharged Performed By: #### L 100.0100, L500.2500 #### [facility] [address] [place], [address] MCH Normal 27.0-32.0 [facility] Comment on above: Result Comment: Canc elled via OM: Order cancelled - Patient discharged Performed By: #### L 100.0100, L500.2500 #### [facility] [address] [place], [address] MCHC Normal 32-36 [facility] Comment on above: Result Comment: Canc elled via OM: Order cancelled - Patient discharged Performed By: #### L 100.0100, L500.2500 #### [facility] [address] [place], [address] MCV Normal 81-99 [facility] Comment on above: Result Comment: Canc elled via OM: Order cancelled - Patient discharged Performed By: #### L 100.0100, L500.2500 #### [facility] [address] [place], [address] NEUT% Normal 47-70 [facility] Comment on above: Result Comment: Canc elled via OM: Order cancelled - Patient discharged Performed By: #### L 100.0100, L500.2500 #### [facility] [address] [place], [address] PLT Normal 150-450 [facility] Comment on above: Result Comment: Canc elled via OM: Order cancelled - Patient discharged Performed By: #### L 100.0100, L500.2500 #### [facility] [address] [place], [address] RBC Normal 4.2-5.4 [facility] Comment on above: Result Comment: Canc elled via OM: Order cancelled - Patient discharged Performed By: #### L 100.0100, L500.2500 #### [facility] [address] [place], [address] RDW CV Normal 11.6-14.6 [facility] Comment on above: Result Comment: Canc elled via OM: Order cancelled - Patient discharged Performed By: #### L 100.0100, L500.2500 #### [facility] [address] [place], [address] RDW SD Normal 35.1-43.9 [facility] Comment on above: Result Comment: Canc elled via OM: Order cancelled - Patient discharged Performed By: #### L 100.0100, L500.2500 #### [facility] [address] [place], [address] WBC Normal 4.4-11.0 [facility] Comment on above: Result Comment: Canc elled via OM: Order cancelled - Patient discharged Performed By: #### L 100.0100, L500.2500 #### [facility] [address] [place], [address] Basic Metabolic Profile (BMP )on 11-25-2024 BUN Normal 7-18 [facility] Comment on above: Result Comment: Canc elled via OM: Order cancelled - Patient discharged Performed By: #### L 100.0100, L500.2500 #### [facility] [address] [place], [address] BUN/CRE Normal 10-20 [facility] Comment on above: Result Comment: Canc elled via OM: Order cancelled - Patient discharged Performed By: #### L 100.0100, L500.2500 #### [facility] [address] [place], [address] CA,Total Normal 8.5-10.1 [facility] Comment on above: Result Comment: Canc elled via OM: Order cancelled - Patient discharged Performed By: #### L 100.0100, L500.2500 #### [facility] [address] [place], [address] CL Normal 98-107 [facility] Comment on above: Result Comment: Canc elled via OM: Order cancelled - Patient discharged Performed By: #### L 100.0100, L500.2500 #### [facility] [address] [place], [address] CO2 Normal 21.0-32.0 [facility] Comment on above: Result Comment: Canc elled via OM: Order cancelled - Patient discharged Performed By: #### L 100.0100, L500.2500 #### [facility] [address] [place], [address] CREAT,SERUM Normal 0.55-1.02 [facility] Comment on above: Result Comment: Canc elled via OM: Order cancelled - Patient discharged Performed By: #### L 100.0100, L500.2500 #### [facility] [address] [place], [address] EST GFR Normal >60 [facility] Comment on above: Result Comment: Canc elled via OM: Order cancelled - Patient discharged Performed By: #### L 100.0100, L500.2500 #### [facility] [address] [place], [address] EST GFR - AA Normal >60 [facility] Comment on above: Result Comment: Canc elled via OM: Order cancelled - Patient discharged Performed By: #### L 100.0100, L500.2500 #### [facility] [address] [place], [address] GAP Normal 5-15 [facility] Comment on above: Result Comment: Canc elled via OM: Order cancelled - Patient discharged Performed By: #### L 100.0100, L500.2500 #### [facility] [address] [place], [address] GLU Normal 74-106 [facility] Comment on above: Result Comment: Canc elled via OM: Order cancelled - Patient discharged Performed By: #### L 100.0100, L500.2500 #### [facility] [address] [place], [address] Potassium Normal 3.5-5.1 [facility] Comment on above: Result Comment: Canc elled via OM: Order cancelled - Patient discharged Performed By: #### L 100.0100, L500.2500 #### [facility] [address] [place], [address] Basic Metabolic Profile (BMP) Normal 136-145 [facility] Comment on above: Result Comment: Canc elled via OM: Order cancelled - Patient discharged Performed By: #### L 100.0100, L500.2500 #### [facility] [address] [place], [address] CBC W/Diff, Automatedon 02-2 Absolute Neut Normal 2.0-7.7 [facility] Comment on above: Result Comment: Canc elled via OM: Order cancelled - Patient discharged Performed By: #### L 100.0100, L500.2500 #### [facility] [address] [place], [address] HCT Normal 37-47 [facility] Comment on above: Result Comment: Canc elled via OM: Order cancelled - Patient discharged Performed By: #### L 100.0100, L500.2500 #### [facility] [address] [place], [address] HGB Normal 12.0-15.0 [facility] Comment on above: Result Comment: Canc elled via OM: Order cancelled - Patient discharged Performed By: #### L 100.0100, L500.2500 #### [facility] [address] [place], [address] MCH Normal 27.0-32.0 [facility] Comment on above: Result Comment: Canc elled via OM: Order cancelled - Patient discharged Performed By: #### L 100.0100, L500.2500 #### [facility] [address] [place], [address] MCHC Normal 32-36 [facility] Comment on above: Result Comment: Canc elled via OM: Order cancelled - Patient discharged Performed By: #### L 100.0100, L500.2500 #### [facility] [address] [place], [address] MCV Normal 81-99 [facility] Comment on above: Result Comment: Canc elled via OM: Order cancelled - Patient discharged Performed By: #### L 100.0100, L500.2500 #### [facility] [address] [place], [address] NEUT% Normal 47-70 [facility] Comment on above: Result Comment: Canc elled via OM: Order cancelled - Patient discharged Performed By: #### L 100.0100, L500.2500 #### [facility] [address] [place], [address] PLT Normal 150-450 [facility] Comment on above: Result Comment: Canc elled via OM: Order cancelled - Patient discharged Performed By: #### L 100.0100, L500.2500 #### [facility] [address] [place], [address] RBC Normal 4.2-5.4 [facility] Comment on above: Result Comment: Canc elled via OM: Order cancelled - Patient discharged Performed By: #### L 100.0100, L500.2500 #### [facility] [address] [place], [address] RDW CV Normal 11.6-14.6 [facility] Comment on above: Result Comment: Canc elled via OM: Order cancelled - Patient discharged Performed By: #### L 100.0100, L500.2500 #### [facility] [address] [place], [address] RDW SD Normal 35.1-43.9 [facility] Comment on above: Result Comment: Canc elled via OM: Order cancelled - Patient discharged Performed By: #### L 100.0100, L500.2500 #### [facility] [address] [place], [address] WBC Normal 4.4-11.0 [facility] Comment on above: Result Comment: Canc elled via OM: Order cancelled - Patient discharged Performed By: #### L 100.0100, L500.2500 #### [facility] [address] [place], [address] Basic Metabolic Profile (BMP )on 11-24-2024 BUN Normal 7-18 [facility] Comment on above: Result Comment: Canc elled via OM: Order cancelled - Patient discharged Performed By: #### L 509.7000 #### [facility] [address] [place], [address] BUN/CRE Normal 10-20 [facility] Comment on above: Result Comment: Canc elled via OM: Order cancelled - Patient discharged Performed By: #### L 509.7000 #### [facility] [address] [place], [address] CA,Total Normal 8.5-10.1 [facility] Comment on above: Result Comment: Canc elled via OM: Order cancelled - Patient discharged Performed By: #### L 509.7000 #### [facility] [address] [place], [address] CL Normal 98-107 [facility] Comment on above: Result Comment: Canc elled via OM: Order cancelled - Patient discharged Performed By: #### L 509.7000 #### [facility] [address] [place], [address] CO2 Normal 21.0-32.0 [facility] Comment on above: Result Comment: Canc elled via OM: Order cancelled - Patient discharged Performed By: #### L 509.7000 #### [facility] [address] [place], [address] CREAT,SERUM Normal 0.55-1.02 [facility] Comment on above: Result Comment: Canc elled via OM: Order cancelled - Patient discharged Performed By: #### L 509.7000 #### [facility] [address] [place], [address] EST GFR Normal >60 [facility] Comment on above: Result Comment: Canc elled via OM: Order cancelled - Patient discharged Performed By: #### L 509.7000 #### [facility] [address] [place], [address] EST GFR - AA Normal >60 [facility] Comment on above: Result Comment: Canc elled via OM: Order cancelled - Patient discharged Performed By: #### L 509.7000 #### [facility] [address] [place], [address] GAP Normal 5-15 [facility] Comment on above: Result Comment: Canc elled via OM: Order cancelled - Patient discharged Performed By: #### L 509.7000 #### [facility] [address] [place], [address] GLU Normal 74-106 [facility] Comment on above: Result Comment: Canc elled via OM: Order cancelled - Patient discharged Performed By: #### L 509.7000 #### [facility] [address] [place], [address] Potassium Normal 3.5-5.1 [facility] Comment on above: Result Comment: Canc elled via OM: Order cancelled - Patient discharged Performed By: #### L 509.7000 #### [facility] [address] [place], [address] Basic Metabolic Profile (BMP) Normal 136-145 [facility] Comment on above: Result Comment: Canc elled via OM: Order cancelled - Patient discharged Performed By: #### L 509.7000 #### [facility] [address] [place], [address] CBC W/Diff, Automatedon 02-2 Absolute Neut Normal 2.0-7.7 [facility] Comment on above: Result Comment: Canc elled via OM: Order cancelled - Patient discharged Performed By: #### L 509.7000 #### [facility] [address] [place], [address] HCT Normal 37-47 [facility] Comment on above: Result Comment: Canc elled via OM: Order cancelled - Patient discharged Performed By: #### L 509.7000 #### [facility] [address] [place], [address] HGB Normal 12.0-15.0 [facility] Comment on above: Result Comment: Canc elled via OM: Order cancelled - Patient discharged Performed By: #### L 509.7000 #### [facility] [facility] [address] [place], [address] MCH Normal 27.0-32.0 [facility] Comment on above: Result Comment: Canc elled via OM: Order cancelled - Patient discharged Performed By: #### L 509.7000 #### [facility] [address] [place], [address] MCHC Normal 32-36 [facility] Comment on above: Result Comment: Canc elled via OM: Order cancelled - Patient discharged Performed By: #### L 509.7000 #### [facility] [address] [place], [address] MCV Normal 81-99 [facility] Comment on above: Result Comment: Canc elled via OM: Order cancelled - Patient discharged Performed By: #### L 509.7000 #### [facility] [address] [place], [address] NEUT% Normal 47-70 [facility] Comment on above: Result Comment: Canc elled via OM: Order cancelled - Patient discharged Performed By: #### L 509.7000 #### [facility] [address] [place], [address] PLT Normal 150-450 [facility] Comment on above: Result Comment: Canc elled via OM: Order cancelled - Patient discharged Performed By: #### L 509.7000 #### [facility] [address] [place], [address] RBC Normal 4.2-5.4 [facility] Comment on above: Result Comment: Canc elled via OM: Order cancelled - Patient discharged Performed By: #### L 509.7000 #### [facility] [address] [place], [address] RDW CV Normal 11.6-14.6 [facility] Comment on above: Result Comment: Canc elled via OM: Order cancelled - Patient discharged Performed By: #### L 509.7000 #### [facility] [address] [place], [address] RDW SD Normal 35.1-43.9 [facility] Comment on above: Result Comment: Canc elled via OM: Order cancelled - Patient discharged Performed By: #### L 509.7000 #### [facility] [address] [place], [address] WBC Normal 4.4-11.0 [facility] Comment on above: Result Comment: Canc elled via OM: Order cancelled - Patient discharged Performed By: #### L 509.7000 #### [facility] [address] [place], [address] 12 Lead EKGon 11-23-2024 12 Lead EKG [facility] [address] [place] [address] 12 Lead EKG 11/23/24 0538 MR#: [id number] Acct: [id number] Name: DIANNE ALVES Rep #: [id number] : 1955 69 From: Amrik Weber MD Attending Dr: Dr. Stephenie Yu MD Status: ADM IN Ordering Dr: Rita Kenny MD Date: 11/23/24 Location: [facility] Sex: F AA Admitted: 11/17/24 Test Reason : am ekg/cp Blood Pressure : */* mmHG Vent. Rate : 74 BPM Atrial Rate : 74 BPM P-R Int : 122 ms QRS Dur : 84 ms QT Int : 366 ms P-R-T Axes : 78 78 76 degrees QTcB Int : 406 ms Sinus rhythm with occasional Premature ventricular complexes T wave abnormality, consider anterolateral ischemia Abnormal ECG Confirmed by Amrik Weber ([id number]), industrial editor JUSTYN TURPIN ([id number]) on 11/23/2024 10:37:36 AM Referred By: Confirmed By: Amrik Weber 11/23/24 1037 Date Amrik Weber MD CC: Dr. Leonie Peterson MD; Dr. Rita Kenny MD; Dr. Stephenie Yu MD Signed Normal [facility] Absolute neutrophil countOrd ered By: Rita Kenny on 11-23-2024 Neutrophils (Bld) [#/Vol] 7.1 10*3/uL 2.0-7.7 [facility] Basic Metabolic Profile (BMP )on 11-23-2024 BUN/CRE 28.2 RATIO High 10-20 [facility] Comment on above: Performed By: #### L 100.0100, L500.2500 #### [facility] [address] [place], [address] CA,Total 9.0 mg/dL Normal 8.5-10.1 [facility] Comment on above: Performed By: #### L 100.0100, L500.2500 #### [facility] [address] [place], [address] Chloride [Moles/Vol] 103 mmol/L Normal 98-107 [facility] Comment on above: Performed By: #### L 100.0100, L500.2500 #### [facility] [address] [place], [address] CO2 [Moles/Vol] 26.0 mmol/L Normal 21.0-32.0 [facility] Comment on above: Performed By: #### L 100.0100, L500.2500 #### [facility] [address] [place], [address] Creatinine [Mass/Vol] 1.17 mg/dL High 0.55-1.02 [facility] Comment on above: Result Comment: The validity of the calculated GFR GFRAA in patients over 70 years has not been determined. Clinical correlation is essential. Performed By: #### L 100.0100, L500.2500 #### [facility] [address] [place], [address] ECRCL 52.87 ml/min Normal [facility] Comment on above: Performed By: #### L 100.0100, L500.2500 #### [facility] [address] [place], [address] EST GFR - AA 59 mL/min Low >60 [facility] Comment on above: Result Comment: Afri can Taiwanese GFR Calc Performed By: #### L 100.0100, L500.2500 #### [facility] [address] [place], [address] GAP 7 Normal 5-15 [facility] Comment on above: Performed By: #### L 100.0100, L500.2500 #### [facility] [address] [place], [address] GFR/1.73 sq M.predicted among non-blacks MDRD (S/P/Bld) [Vol rate/Area] 49 mL/min/{1.73_m2} Low >60 [facility] Comment on above: Result Comment: Non- GFR Calc Performed By: #### L 100.0100, L500.2500 #### [facility] [address] [place], [address] Glucose [Mass/Vol] 113 mg/dL High 74-106 [facility] Comment on above: Result Comment: Fast ing Glucose result from 100 to 125 mg/dL suggests IMPAIRED HOMEOSTASIS per A.D.A. criteria. Performed By: #### L 100.0100, L500.2500 #### [facility] [address] [place], [address] Potassium [Moles/Vol] 4.5 mmol/L Normal 3.5-5.1 [facility] Comment on above: Performed By: #### L 100.0100, L500.2500 #### [facility] [address] [place], [address] Sodium [Moles/Vol] 136 mmol/L Normal 136-145 [facility] Comment on above: Performed By: #### L 100.0100, L500.2500 #### [facility] [address] [place], [address] Urea nitrogen [Mass/Vol] 33 mg/dL High 7-18 [facility] Comment on above: Performed By: #### L 100.0100, L500.2500 #### [facility] [address] [place], [address] Basophil percentageOrdered B y: Rita Kenny on 11-23-2024 Basophils/100 WBC (Bld) 0.3 % 0-1 [facility] Blood urea nitrogen (BUN)/cr eatinine ratioOrdered By: Rita Kenny on 11-23-2024 Urea nitrogen/Creatinine [Mass ratio] 28.2 mg/mg High 10-20 [facility] CBC W/Diff, Automatedon 11-01 Absolute Lymph 2.32 X10 3/uL Normal 0.83-4.51 [facility] Comment on above: Performed By: #### L 100.0100, L500.2500 #### [facility] [address] [place], [address] Absolute Neut 7.1 X10 3/uL Normal 2.0-7.7 [facility] Comment on above: Performed By: #### L 100.0100, L500.2500 #### [facility] [address] [place], [address] Basophils/100 WBC (Bld) 0.3 % Normal 0-1 [facility] Comment on above: Performed By: #### L 100.0100, L500.2500 #### [facility] [address] [place], [address] Eosinophils/100 WBC (Bld) 0.1 % Normal 0-5 [facility] Comment on above: Performed By: #### L 100.0100, L500.2500 #### [facility] [address] [place], [address] Erythrocyte distribution width (RBC) [Ratio] 13.8 % Normal 11.6-14.6 [facility] Comment on above: Performed By: #### L 100.0100, L500.2500 #### [facility] [address] [place], [address] Hematocrit (Bld) [Volume fraction] 46.5 % Normal 37-47 [facility] Comment on above: Performed By: #### L 100.0100, L500.2500 #### [facility] [address] [place], [address] Hemoglobin (Bld) [Mass/Vol] 14.8 g/dL Normal 12.0-15.0 [facility] Comment on above: Performed By: #### L 100.0100, L500.2500 #### [facility] [address] [place], [address] IG% 1.300 High 0.0-0.9 [facility] Comment on above: Result Comment: IG% - Immature Granulocytes (promyelocytes, myelocytes and metamyelocytes) > 1% indicates that a LEFT SHIFT is Present. Performed By: #### L 100.0100, L500.2500 #### [facility] [address] [place], [address] Lymphocytes/100 WBC (Bld) 22.2 % Normal 19-41 [facility] Comment on above: Performed By: #### L 100.0100, L500.2500 #### [facility] [address] [place], [address] MCH (RBC) [Entitic mass] 28.2 pg Normal 27.0-32.0 [facility] Comment on above: Performed By: #### L 100.0100, L500.2500 #### [facility] [address] [place], [address] MCHC (RBC) [Mass/Vol] 31.8 g/dL Low 32-36 [facility] Comment on above: Performed By: #### L 100.0100, L500.2500 #### [facility] [address] [place], [address] MCV (RBC) [Entitic vol] 88.6 fL Normal 81-99 [facility] Comment on above: Performed By: #### L 100.0100, L500.2500 #### [facility] [address] [place], [address] Monocytes/100 WBC (Bld) 8.3 % Normal 0-10 [facility] Comment on above: Performed By: #### L 100.0100, L500.2500 #### [facility] [address] [place], [address] Neutrophils/100 WBC (Bld) 67.8 % Normal 47-70 [facility] Comment on above: Performed By: #### L 100.0100, L500.2500 #### [facility] [address] [place], [address] Nucleated RBC (Bld) [#/Vol] 0 10*3/uL Normal 0-5 [facility] Comment on above: Performed By: #### L 100.0100, L500.2500 #### [facility] [address] [place], [address] Platelet mean volume (Bld) [Entitic vol] 10.5 fL Normal 6.2-12.0 [facility] Comment on above: Performed By: #### L 100.0100, L500.2500 #### [facility] [address] [place], [address] Platelets (Bld) [#/Vol] 346 10*3/uL Normal 150-450 [facility] Comment on above: Performed By: #### L 100.0100, L500.2500 #### [facility] [address] [place], [address] RBC (Bld) [#/Vol] 5.25 10*6/uL Normal 4.2-5.4 [facility] Comment on above: Performed By: #### L 100.0100, L500.2500 #### [facility] [address] [place], [address] RDW SD 44.6 fl High 35.1-43.9 [facility] Comment on above: Performed By: #### L 100.0100, L500.2500 #### [facility] [address] [place], [address] WBC (Bld) [#/Vol] 10.5 10*3/uL Normal 4.4-11.0 [facility] Comment on above: Performed By: #### L 100.0100, L500.2500 #### [facility] [address] [place], [address] Carbon dioxide measurementOr dered By: Ritamorgan Kenny on 11-23-2024 CO2 [Moles/Vol] 26.0 mmol/L 21.0-32.0 [facility] Chloride measurementOrdered By: Rita Kenny on 11-23-2024 Chloride [Moles/Vol] 103 mmol/L 98-107 [facility] Discharge Instructionon 11-01 Discharge Instruction [facility] Medical Records Department [address] [place] [address] Instructions for Home/Discharge Instructions 11/23/24 1522 MR#: [id number] Acct: [id number] Name: DIANNE ALVES Rep #: [id number] : 1955 69 From: Stephenie Yu MD PCP: Dr. Leonie Peterson MD Status:ADM IN Discharge Instructions Diet Discharge Diet: - (DASH diet) DC O2, CPAP, BIPAP needs Home O2 Discharge instructions: Yes Type of respiratory needs?: Oxygen Oxygen frequency: Continuous Continuous oxygen liters per minute: 2 Follow Up Care Test Results: Test results from this visit will be discussed in further detail at your follow-up appointment, if applicable. Discharge Plan Admission Admit Date/Time: 11/17/24 14:58 Primary Reason for Your Visit: Shortness of breath Attending Provider: Stephenie Yu Primary Care Provider: Leonie Peterson Consulting Providers: Stephenie Yu; Ishaan Alvarado; Antwon Ferreira; Jose Rosa; Zeyad Espinoza; Darryl Evans; Heladio Paige; Nelson Interiano; Maria M Ochoa; Sebastian Kimble; Kd Corral; Kvng Vizcaino; Niyah Mejia; Sean Cisneros; Sarah,Fela; Abilio,Kane; Vishnu Herrera; Eladio Garcia; Lion Khan; Dianna Shah; Murali Arceo; Jorje Dixon; Gustavo Bal; Devante Stoddard; Rita Kenny Instructions Patient Instructions: ED Influenza (Adult) Additional Instructions / Restrictions: DISCHARGE INSTRUCTIONS PLEASE READ *Please take this with you to your next doctors appointment* -You were admitted for influenza and pneumonia -you will be discharged on 2 more days of levofloxacin and 4 more days of prednisone, the scripts were sent to your preferred pharmacy on file, [facility] -Please call your primary care provider's office upon discharge to schedule a hospital follow up within 1 week. -For any concerning signs or symptoms please call 911 or proceed to the nearest emergency department Discharge Orders/Prescriptions Prescriptions: New prednisone 20 mg Tablet 40 mg PO BREAKFAST 4 Days Qty: 8 0RF Rx Instructions: first dose 11/24/25 levofloxacin 750 mg Tablet 750 mg PO DAILY 2 Days Qty: 2 0RF Rx Instructions: first dose 11/24/24 ipratropium bromide 0.02 % Solution 0.5 mg inhalation Q6HWA.RT Qty: 75 0RF albuterol sulfate 2.5 mg /3 mL (0.083 %) Solution For Nebulization 2.5 mg inhalation Q2H PRN PRN (Reason: SOB /OR WHEEZING) Qty: 90 0RF Continued furosemide 20 mg tablet 20 mg PO DAILY Breztri Aerosphere 160-9-4.8 mcg/actuation HFA [...] mg PO Q8 PRN (Reason: muscle spasms) Referrals / Follow Up: Leonie Peterson MD [Primary Care Provider] - In 1 Week Disposition Disposition (needs filled in before D/C Order can be placed): Home, Self Care 11/23/24 1523 Stephenie Yu MD CC: Dr. Antwon Ferreira MD; Dr. Ishaan Alvarado MD; Dr. Jose Rosa MD; Dr. Leonie Peterson MD; Dr. Darryl Evans MD; Dr. Zeyad Espinoza DO; Dr. Heladio Paige MD; Dr. Nelson Interiano MD; Dr. Sebastian Kimble MD; Dr. Kd Corral MD; Dr. Kvng Vizcaino MD; Dr. Niyah Mejia MD; Dr. Sean Cisneros MD; Dr. Fela Smith MD; Dr. Rita Kenny MD; Dr. Stephenie Yu MD; Dr. Vishnu Herrera MD; Dr. Kane Knox MD; Dr. Eladio Garcia MD; Dr. Murali Arceo MD; Dr. Dianna Shah MD; Dr. Lion Khan DO; Dr. Jorje Dixon DO; Dr. Gustavo Bal MD; Dr. Devante Stoddard MD; Dr. Maria M Ochoa MD Signed Normal [facility] Discharge Instruction [facility] Medical Records Department [address] [place] [address] Instructions for Home/Discharge Instructions 11/23/24 1452 MR#: [id number] Acct: [id number] Name: DIANNE ALVES Rep #: [id number] : 1955 69 From: Stephenie Yu MD PCP: Dr. Leonie Peterson MD Status:ADM IN Discharge Instructions Diet Discharge Diet: - (DASH diet) DC O2, CPAP, BIPAP needs Home O2 Discharge instructions: Yes Type of respiratory needs?: Oxygen Oxygen frequency: Continuous Continuous oxygen liters per minute: 2 Dressing / Incision Discharge Activity: - (Increase activity as tolerated) Follow Up Care Test Results: Test results from this visit will be discussed in further detail at your follow-up appointment, if applicable. Discharge Plan Admission Admit Date/Time: 11/17/24 14:58 Primary Reason for Your Visit: Shortness of breath Attending Provider: Stephenie Yu Primary Care Provider: Leonie Peterson Consulting Providers: Stephenie Yu; Ishaan Alvarado; Antwon Ferreira; Jose Rosa; Zeyad Espinoza; Darryl Evans; Heladio Paige; Nelson Interiano; Maria M Ochoa; Sebastian Kimble; Kd Corral; Kvng Vizcaino; Niyah Mejia; Sean Cisneros; Sarah,Fela; Abilio,Kane; Vishnu Herrera; Eladio Garcia; Lion Khan; Dianna Shah; Murali Arceo; Jorje Dixon; Gustavo Bal; Devante Stoddard; Rita Kenny Instructions Patient Instructions: ED Influenza (Adult) Additional Instructions / Restrictions: DISCHARGE INSTRUCTIONS PLEASE READ *Please take this with you to your next doctors appointment* -You were admitted for influenza and pneumonia -you will be discharged on 2 more days of levofloxacin and 4 more days of prednisone, the scripts were sent to your preferred pharmacy on file, [facility] -Please call your primary care provider's office upon discharge to schedule a hospital follow up within 1 week. -For any concerning signs or symptoms please call 911 or proceed to the nearest emergency department Discharge Orders/Prescriptions Prescriptions: New prednisone 20 mg Tablet 40 mg PO BREAKFAST 4 Days Qty: 8 0RF Rx Instructions: first dose 11/24/24 levofloxacin 750 mg Tablet 750 mg PO DAILY 2 Days Qty: 2 0RF Rx Instructions: first dose 11/24/24 Continued furosemide 20 mg tablet 20 mg PO DAILY Breztri Aerosphere 160-9-4.8 mcg/actuation HFA [...] mg PO Q8 PRN (Reason: muscle spasms) Referrals / Follow Up: Leonie Peterson MD [Primary Care Provider] - In 1 Week Disposition Disposition (needs filled in before D/C Order can be placed): Home, Self Care 11/23/24 0206 Stephenie Yu MD CC: Dr. Antwon Ferreira MD; Dr. Ishaan Alvarado MD; Dr. Jose Rosa MD; Dr. Leonie Peterson MD; Dr. Darryl Evans MD; Dr. Zeyad Espinoza DO; Dr. Heladio Paige MD; Dr. Nelson Interiano MD; Dr. Sebastian Kimble MD; Dr. Kd Corral MD; Dr. Kvng Vizcaino MD; Dr. Niyah Mejia MD; Dr. Sean Cisneros MD; Dr. Fela Smith MD; Dr. Rita Kenny MD; Dr. Stephenie Yu MD; Dr. Vishnu Herrera MD; Dr. Kane Knox MD; Dr. Eladio Garcia MD; Dr. Murali Arceo MD; Dr. Dianna Shah MD; Dr. Lion Khan DO; Dr. Jorje Dixon DO; Dr. Gustavo Bla MD; Dr. Devante Stoddard MD; Dr. Maria M Ochoa MD Signed Normal [facility] Eosinophil percentageOrdered By: Rita Kenny on 11-23-2024 Eosinophils/100 WBC (Bld) 0.1 % 0-5 [facility] Erythrocyte distribution wid th ratioOrdered By: Rita Kenny on 11-23-2024 Erythrocyte distribution width (RBC) [Ratio] 13.8 % 11.6-14.6 [facility] Erythrocyte distribution wid th standard deviationOrdered By: Rita Kenny on 11-23-2024 Erythrocyte distribution width (RBC) [Entitic vol] 44.6 fL High 35.1-43.9 [facility] Estimated glomerular filtrat ion rate (GFR) AmericanOrdered By: Rita Kenny on 11-23-2024 Estimated GFR (MDRD) Amer 59 mL/min Low >60 [facility] Comment on above: GFR Calc Estimation of creatinine adriana aranceOrdered By: Rita Kenny on 11-23-2024 Estimated Creatinine Clearance Calc 52.87 ml/min [facility] Glomerular filtration rate ( GFR) estimationOrdered By: Rita Kenny on 11-23-2024 Estimated GFR (MDRD) Non-Af Amer 49 mL/min Low >60 [facility] Comment on above: Non- GFR Calc Glucose measurementOrdered B y: Rita Kenny on 11-23-2024 Glucose [Mass/Vol] 113 mg/dL High 74-106 [facility] Comment on above: Fasting Glucose resu lt from 100 to 125 mg/dL suggests IMPAIRED HOMEOSTASIS per A.D.A. criteria. Hematocrit Auto (Bld) [Volum e fraction]Ordered By: Rita Kenny on 11-23-2024 Hematocrit (Bld) [Volume fraction] 46.5 % 37-47 [facility] Hemoglobin measurementOrdere d By: Rita Kenny on 11-23-2024 Hemoglobin (Bld) [Mass/Vol] 14.8 g/dL 12.0-15.0 [facility] Immature granulocytes/100 WB C Auto (Bld)Ordered By: Rita Kenny on 11-23-2024 Immature granulocytes/100 WBC (Bld) 1.300 % High 0.0-0.9 [facility] Comment on above: IG% - Immature Granu locytes (promyelocytes, myelocytes and metamyelocytes) > 1% indicates that a LEFT SHIFT is Present. Lymphocytes Auto (Unsp spec) [#/Vol]Ordered By: Rita Kenny on 11-23-2024 Lymphocytes (Bld) [#/Vol] 2.32 10*3/uL 0.83-4.51 [facility] Lymphocytes/100 WBC Auto (Un sp spec)Ordered By: Rita Kenny on 11-23-2024 Lymphocytes/100 WBC (Bld) 22.2 % 19-41 [facility] MCV (mean corpuscular volume ) determinationOrdered By: Rita Kenny on 11-23-2024 MCV (RBC) [Entitic vol] 88.6 fL 81-99 [facility] Mean corpuscular hemoglobin (MCH) determinationOrdered By: Rita Kenny on 11-23-2024 MCH (RBC) [Entitic mass] 28.2 pg 27.0-32.0 [facility] Mean corpuscular hemoglobin concentration (MCHC) determinationOrdered By: Rita Kenny on 11-23-2024 MCHC (RBC) [Mass/Vol] 31.8 g/dL Low 32-36 [facility] Mean platelet volume determi nationOrdered By: Rita Kenny on 11-23-2024 Platelet mean volume (Bld) [Entitic vol] 10.5 fL 6.2-12.0 [facility] Monocyte percentageOrdered B y: Rita Kenny on 11-23-2024 Monocytes/100 WBC (Bld) 8.3 % 0-10 [facility] Neutrophil percentageOrdered By: Rita Kenny on 11-23-2024 Neutrophils/100 WBC (Bld) 67.8 % 47-70 [facility] Nucleated red blood cell per centageOrdered By: Rita Kenny on 11-23-2024 Nucleated RBC/100 WBC (Bld) [Ratio] 0 % 0-5 [facility] Platelet countOrdered By: Na elizabeth Kenny on 11-23-2024 Platelets (Bld) [#/Vol] 346 10*3/uL 150-450 [facility] Potassium measurementOrdered By: Rita Kenny on 11-23-2024 Potassium [Moles/Vol] 4.5 mmol/L 3.5-5.1 [facility] RBC Auto (Bld) [#/Vol]Ordere d By: Rita Kenny on 11-23-2024 RBC (Bld) [#/Vol] 5.25 10*6/uL 4.2-5.4 [facility] Serum anion gap measurementO rdered By: Rita Kenny on 11-23-2024 Anion gap [Moles/Vol] 7 mmol/L 5-15 [facility] Serum or plasma calcium margarita urement (mass/volume)Ordered By: Rita Karlbella on 11-23-2024 Calcium [Mass/Vol] 9.0 mg/dL 8.5-10.1 [facility] Serum or plasma creatinine m easurement (mass/volume)Ordered By: Rita Barajasbella on 11-23-2024 Creatinine [Mass/Vol] 1.17 mg/dL High 0.55-1.02 [facility] Comment on above: The validity of the calculated GFR & GFRAA in patients over 70 years has not been determined. Clinical correlation is essential. Serum or plasma urea nitroge n measurement (mass/volume)Ordered By: Ritamorgan Kenny on 11-23-2024 Urea nitrogen [Mass/Vol] 33 mg/dL High 7-18 [facility] Sodium levelOrdered By: Rita Karlbella on 11-23-2024 Sodium [Moles/Vol] 136 mmol/L 136-145 [facility] Stress Reporton 11-23-2024 Stress Report [facility] [address] [place] [id number] MR#: [id number] Acct: [id number] Name: DIANNE ALVES Rep #: [id number] : 1955 69 From: Tej Corley MD Primary Care: Dr. Leonie Peterson MD Status: ADM IN Referring Dr: Sex: F AA Stress Test Report Date: 11/23/2024 Procedure: Pharmacologic stress nuclear imaging study Indications: Chest pain Consent: Per the patient Procedure: The patient underwent pharmacologic (Regadenoson) evaluation with a peak heart rate of 100 beats per minute (65%predicted maximal heart rate) and a peak blood pressure of 118/80 mmHg. The baseline ECG demonstrated normal sinus rhythm, nonspecific ST-T changes. EKG during lexiscan infusion revealed no significant ischemic changes. EKG post infusion revealed no significant ischemic changes [There were no cardiac dysrhythmias pretest, during pharmacologic infusion, or recovery]. [There was no complaint of chest discomfort during pharmacologic infusion or recovery]. The examination was discontinued secondary to completion of protocol. Impression: 1. Lexiscan stress test test is negative for Lexiscan infusion induced EKG changes of ischemia. 2. Lexiscan stress test test is negative for Lexiscan infusion induced chest pain. 3. Results of the nuclear portion of the test is as below Myocardial perfusion imaging study: Technique: The patient was injected with 14.5 millicuries of technetium 99m Cardiolite and subsequently rest SPECT Cardiolite nuclear imaging was obtained in the horizontal long, vertical long, and short axis views. The patient underwent pharmacologic [Regadenoson 0.4mg] evaluation. Please see above for details. The patient was injected with 44.6 millicuries of technetium 99m Cardiolite and subsequently stress SPECT Cardiolite nuclear imaging was obtained in the horizontal long, vertical long, and short axis views. A gated Cardiolite study at peak stress was obtained. Interpretation: Rest and stress SPECT Cardiolite nuclear imaging status post realignment, normalization, and attenuation correction demonstrate no evidence of significant ischemia or infarction. Gated images reveal no significant regional wall motion abnormalities. The reported LVEF is greater than 70%. Impression: 1. There is no evidence of significant ischemia or infarction. 2. Estimated ejection fraction is greater than 70%. This note was generated with Variab.[email or web address] software. It may contain incorrect words, spelling, and punctuation that were not noted in checking the note before signing. 11/23/24 1330 Date Tej Corley MD CC: Dr. Antwon Ferreira MD; Dr. Ishaan Alvarado MD; Dr. Jose Rosa MD; Dr. Leonie Peterson MD; Dr. Darryl Evans MD; Dr. Zeyad Espinoza DO; Dr. Heladio Paige MD; Dr. Nelson Interiano MD; Dr. Sebastian Kimble MD; Dr. Kd Corral MD; Dr. Kvng Vizcaino MD; Dr. Niyah Mejia MD; Dr. Sean Cisneros MD; Dr. Fela Smith MD; Dr. Rita Kenny MD; Dr. Stephenie Yu MD; Dr. Vishnu Herrera MD; Dr. Kane Knox MD; Dr. Eladio Garcia MD; Dr. Murali Arceo MD; Dr. Dianna Shah MD; Dr. Lion Khan DO; Dr. Jorje Dixon DO; Dr. Doron Bernardo DO; Dr. Gustavo Bal MD; Dr. Devante Stoddard MD; Dr. Maria M Ochoa MD Date Dictated: 11/23/241326 Date Transcribed: 11/23/241326 Drill Runner: NN Signed Normal [facility] White blood cell (WBC) count Ordered By: Rita Kenny on 11-23-2024 WBC (Bld) [#/Vol] 10.5 10*3/uL 4.4-11.0 [facility] Basic Metabolic Profile (BMP )on 11-22-2024 BUN/CRE 26.9 RATIO High 10-20 [facility] Comment on above: Performed By: #### L 509.7000 #### [facility] [address] [place], [address] CA,Total 9.0 mg/dL Normal 8.5-10.1 [facility] Comment on above: Performed By: #### L 509.7000 #### [facility] [address] [place], [address] Chloride [Moles/Vol] 100 mmol/L Normal 98-107 [facility] Comment on above: Performed By: #### L 509.7000 #### [facility] [address] [place], [address] CO2 [Moles/Vol] 26.0 mmol/L Normal 21.0-32.0 [facility] Comment on above: Performed By: #### L 509.7000 #### [facility] [address] [place], [address] Creatinine [Mass/Vol] 1.45 mg/dL High 0.55-1.02 [facility] Comment on above: Result Comment: The validity of the calculated GFR GFRAA in patients over 70 years has not been determined. Clinical correlation is essential. Performed By: #### L 509.7000 #### [facility] [address] [place], [address] ECRCL 42.59 ml/min Normal [facility] Comment on above: Performed By: #### L 509.7000 #### [facility] [address] [place], [address] EST GFR - AA 46 mL/min Low >60 [facility] Comment on above: Result Comment: Afri can Taiwanese GFR Calc Performed By: #### L 509.7000 #### [facility] [address] [place], [address] GAP 11 Normal 5-15 [facility] Comment on above: Performed By: #### L 509.7000 #### [facility] [address] [place], [address] GFR/1.73 sq M.predicted among non-blacks MDRD (S/P/Bld) [Vol rate/Area] 38 mL/min/{1.73_m2} Low >60 [facility] Comment on above: Result Comment: Non- GFR Calc Performed By: #### L 509.7000 #### [facility] [address] [place], [address] Glucose [Mass/Vol] 172 mg/dL High 74-106 [facility] Comment on above: Result Comment: Fast ing Glucose result greater than or equal to 126 mg/dL suggests DIABETES MELLITUS per A.D.A. criteria. Performed By: #### L 509.7000 #### [facility] [address] [place], [address] Potassium [Moles/Vol] 4.7 mmol/L Normal 3.5-5.1 [facility] Comment on above: Performed By: #### L 509.7000 #### [facility] [address] [place], [address] Sodium [Moles/Vol] 137 mmol/L Normal 136-145 [facility] Comment on above: Performed By: #### L 509.7000 #### [facility] [address] [place], [address] Urea nitrogen [Mass/Vol] 39 mg/dL High 7-18 [facility] Comment on above: Performed By: #### L 509.7000 #### [facility] [address] [place], [address] CBC W/Diff, Automatedon 02-2 -2024 Absolute Lymph 1.19 X10 3/uL Normal 0.83-4.51 [facility] Comment on above: Performed By: #### L 509.7000 #### [facility] [address] [place], [address] Absolute Neut 7.9 X10 3/uL High 2.0-7.7 [facility] Comment on above: Performed By: #### L 509.7000 #### [facility] [address] [place], [address] Basophils/100 WBC (Bld) 0.3 % Normal 0-1 [facility] Comment on above: Performed By: #### L 509.7000 #### [facility] [address] [place], [address] Eosinophils/100 WBC (Bld) 0.0 % Normal 0-5 [facility] Comment on above: Performed By: #### L 509.7000 #### [facility] [address] [place], [address] Erythrocyte distribution width (RBC) [Ratio] 13.7 % Normal 11.6-14.6 [facility] Comment on above: Performed By: #### L 509.7000 #### [facility] [address] [place], [address] Hematocrit (Bld) [Volume fraction] 45.4 % Normal 37-47 [facility] Comment on above: Performed By: #### L 509.7000 #### [facility] [address] [place], [address] Hemoglobin (Bld) [Mass/Vol] 14.8 g/dL Normal 12.0-15.0 [facility] Comment on above: Performed By: #### L 509.7000 #### [facility] [address] [place], [address] IG% 1.400 High 0.0-0.9 [facility] Comment on above: Result Comment: IG% - Immature Granulocytes (promyelocytes, myelocytes and metamyelocytes) > 1% indicates that a LEFT SHIFT is Present. Performed By: #### L 509.7000 #### [facility] [address] [place], [address] Lymphocytes/100 WBC (Bld) 12.1 % Low 19-41 [facility] Comment on above: Performed By: #### L 509.7000 #### [facility] [address] [place], [address] MCH (RBC) [Entitic mass] 28.7 pg Normal 27.0-32.0 [facility] Comment on above: Performed By: #### L 509.7000 #### [facility] [address] [place], [address] MCHC (RBC) [Mass/Vol] 32.6 g/dL Normal 32-36 [facility] Comment on above: Performed By: #### L 509.7000 #### [facility] [address] [place], [address] MCV (RBC) [Entitic vol] 88.2 fL Normal 81-99 [facility] Comment on above: Performed By: #### L 509.7000 #### [facility] [address] [place], [address] Monocytes/100 WBC (Bld) 5.9 % Normal 0-10 [facility] Comment on above: Performed By: #### L 509.7000 #### [facility] [address] [place], [address] Neutrophils/100 WBC (Bld) 80.3 % High 47-70 [facility] Comment on above: Performed By: #### L 509.7000 #### [facility] [address] [place], [address] Nucleated RBC (Bld) [#/Vol] 0 10*3/uL Normal 0-5 [facility] Comment on above: Performed By: #### L 509.7000 #### [facility] [address] [place], [address] Platelet mean volume (Bld) [Entitic vol] 11.0 fL Normal 6.2-12.0 [facility] Comment on above: Performed By: #### L 509.7000 #### [facility] [address] [place], [address] Platelets (Bld) [#/Vol] 346 10*3/uL Normal 150-450 [facility] Comment on above: Performed By: #### L 509.7000 #### [facility] [address] [place], [address] RBC (Bld) [#/Vol] 5.15 10*6/uL Normal 4.2-5.4 [facility] Comment on above: Performed By: #### L 509.7000 #### [facility] [address] [place], [address] RDW SD 44.1 fl High 35.1-43.9 [facility] Comment on above: Performed By: #### L 509.7000 #### [facility] [address] [place], [address] WBC (Bld) [#/Vol] 9.8 10*3/uL Normal 4.4-11.0 [facility] Comment on above: Performed By: #### L 509.7000 #### [facility] [address] [place], [address] Basic Metabolic Profile (BMP )on 11-21-2024 BUN/CRE 20.8 RATIO High 10-20 [facility] Comment on above: Performed By: #### L 509.7000 #### [facility] [address] [place], [address] CA,Total 9.4 mg/dL Normal 8.5-10.1 [facility] Comment on above: Performed By: #### L 509.7000 #### [facility] [address] [place], [address] Chloride [Moles/Vol] 102 mmol/L Normal 98-107 [facility] Comment on above: Performed By: #### L 509.7000 #### [facility] [address] [place], [address] CO2 [Moles/Vol] 26.0 mmol/L Normal 21.0-32.0 [facility] Comment on above: Performed By: #### L 509.7000 #### [facility] [address] [place], [address] Creatinine [Mass/Vol] 1.25 mg/dL High 0.55-1.02 [facility] Comment on above: Result Comment: The validity of the calculated GFR GFRAA in patients over 70 years has not been determined. Clinical correlation is essential. Performed By: #### L 509.7000 #### [facility] [address] [place], [address] ECRCL 49.49 ml/min Normal [facility] Comment on above: Performed By: #### L 509.7000 #### [facility] [address] [place], [address] EST GFR - AA 55 mL/min Low >60 [facility] Comment on above: Result Comment: Afri can Taiwanese GFR Calc Performed By: #### L 509.7000 #### [facility] [address] [place], [address] GAP 9 Normal 5-15 [facility] Comment on above: Performed By: #### L 509.7000 #### [facility] [address] [place], [address] GFR/1.73 sq M.predicted among non-blacks MDRD (S/P/Bld) [Vol rate/Area] 45 mL/min/{1.73_m2} Low >60 [facility] Comment on above: Result Comment: Non- GFR Calc Performed By: #### L 509.7000 #### [facility] [address] [place], [address] Glucose [Mass/Vol] 129 mg/dL High 74-106 [facility] Comment on above: Result Comment: Fast ing Glucose result greater than or equal to 126 mg/dL suggests DIABETES MELLITUS per A.D.A. criteria. Performed By: #### L 509.7000 #### [facility] [address] [place], [address] Potassium [Moles/Vol] 4.4 mmol/L Normal 3.5-5.1 [facility] Comment on above: Performed By: #### L 509.7000 #### [facility] [address] [place], [address] Sodium [Moles/Vol] 137 mmol/L Normal 136-145 [facility] Comment on above: Performed By: #### L 509.7000 #### [facility] [address] [place], [address] Urea nitrogen [Mass/Vol] 26 mg/dL High 7-18 [facility] Comment on above: Performed By: #### L 509.7000 #### [facility] [address] [place], [address] CBC W/Diff, Automatedon 11-01 Absolute Lymph 1.11 X10 3/uL Normal 0.83-4.51 [facility] Comment on above: Performed By: #### L 509.7000 #### [facility] [address] [place], [address] Absolute Neut 7.0 X10 3/uL Normal 2.0-7.7 [facility] Comment on above: Performed By: #### L 509.7000 #### [facility] [address] [place], [address] Basophils/100 WBC (Bld) 0.2 % Normal 0-1 [facility] Comment on above: Performed By: #### L 509.7000 #### [facility] [address] [place], [address] Eosinophils/100 WBC (Bld) 0.0 % Normal 0-5 [facility] Comment on above: Performed By: #### L 509.7000 #### [facility] [address] [place], [address] Erythrocyte distribution width (RBC) [Ratio] 13.8 % Normal 11.6-14.6 [facility] Comment on above: Performed By: #### L 509.7000 #### [facility] [address] [place], [address] Hematocrit (Bld) [Volume fraction] 44.5 % Normal 37-47 [facility] Comment on above: Performed By: #### L 509.7000 #### [facility] [address] [place], [address] Hemoglobin (Bld) [Mass/Vol] 14.5 g/dL Normal 12.0-15.0 [facility] Comment on above: Performed By: #### L 509.7000 #### [facility] [address] [place], [address] IG% 1.100 High 0.0-0.9 [facility] Comment on above: Result Comment: IG% - Immature Granulocytes (promyelocytes, myelocytes and metamyelocytes) > 1% indicates that a LEFT SHIFT is Present. Performed By: #### L 509.7000 #### [facility] [address] [place], [address] Lymphocytes/100 WBC (Bld) 13.0 % Low 19-41 [facility] Comment on above: Performed By: #### L 509.7000 #### [facility] [address] [place], [address] MCH (RBC) [Entitic mass] 28.9 pg Normal 27.0-32.0 [facility] Comment on above: Performed By: #### L 509.7000 #### [facility] [address] [place], [address] MCHC (RBC) [Mass/Vol] 32.6 g/dL Normal 32-36 [facility] Comment on above: Performed By: #### L 509.7000 #### [facility] [address] [place], [address] MCV (RBC) [Entitic vol] 88.6 fL Normal 81-99 [facility] Comment on above: Performed By: #### L 509.7000 #### [facility] [address] [place], [address] Monocytes/100 WBC (Bld) 3.9 % Normal 0-10 [facility] Comment on above: Performed By: #### L 509.7000 #### [facility] [address] [place], [address] Neutrophils/100 WBC (Bld) 81.8 % High 47-70 [facility] Comment on above: Performed By: #### L 509.7000 #### [facility] [address] [place], [address] Nucleated RBC (Bld) [#/Vol] 0 10*3/uL Normal 0-5 [facility] Comment on above: Performed By: #### L 509.7000 #### [facility] [address] [place], [address] Platelet mean volume (Bld) [Entitic vol] 10.6 fL Normal 6.2-12.0 [facility] Comment on above: Performed By: #### L 509.7000 #### [facility] [address] [place], [address] Platelets (Bld) [#/Vol] 321 10*3/uL Normal 150-450 [facility] Comment on above: Performed By: #### L 509.7000 #### [facility] [address] [place], [address] RBC (Bld) [#/Vol] 5.02 10*6/uL Normal 4.2-5.4 [facility] Comment on above: Performed By: #### L 509.7000 #### [facility] [address] [place], [address] RDW SD 44.8 fl High 35.1-43.9 [facility] Comment on above: Performed By: #### L 509.7000 #### [facility] [address] [place], [address] WBC (Bld) [#/Vol] 8.6 10*3/uL Normal 4.4-11.0 [facility] Comment on above: Performed By: #### L 509.7000 #### [facility] [address] [place], [address] Basic Metabolic Profile (BMP )on 11-20-2024 BUN/CRE 16.4 RATIO Normal 10-20 [facility] Comment on above: Performed By: #### L 100.0100, L500.2500 #### [facility] [address] [place], [address] CA,Total 9.7 mg/dL Normal 8.5-10.1 [facility] Comment on above: Performed By: #### L 100.0100, L500.2500 #### [facility] [address] [place], [address] Chloride [Moles/Vol] 102 mmol/L Normal 98-107 [facility] Comment on above: Performed By: #### L 100.0100, L500.2500 #### [facility] [address] [place], [address] CO2 [Moles/Vol] 29.0 mmol/L Normal 21.0-32.0 [facility] Comment on above: Performed By: #### L 100.0100, L500.2500 #### [facility] [address] [place], [address] Creatinine [Mass/Vol] 1.16 mg/dL High 0.55-1.02 [facility] Comment on above: Result Comment: The validity of the calculated GFR GFRAA in patients over 70 years has not been determined. Clinical correlation is essential. Performed By: #### L 100.0100, L500.2500 #### [facility] [address] [place], [address] ECRCL 53.62 ml/min Normal [facility] Comment on above: Performed By: #### L 100.0100, L500.2500 #### [facility] [address] [place], [address] EST GFR - AA 60 mL/min Normal >60 [facility] Comment on above: Result Comment: Afri can Taiwanese GFR Calc Performed By: #### L 100.0100, L500.2500 #### [facility] [address] [place], [address] GAP 6 Normal 5-15 [facility] Comment on above: Performed By: #### L 100.0100, L500.2500 #### [facility] [address] [place], [address] GFR/1.73 sq M.predicted among non-blacks MDRD (S/P/Bld) [Vol rate/Area] 49 mL/min/{1.73_m2} Low >60 [facility] Comment on above: Result Comment: Non- GFR Calc Performed By: #### L 100.0100, L500.2500 #### [facility] [address] [place], [address] Glucose [Mass/Vol] 135 mg/dL High 74-106 [facility] Comment on above: Result Comment: Fast ing Glucose result greater than or equal to 126 mg/dL suggests DIABETES MELLITUS per A.D.A. criteria. Performed By: #### L 100.0100, L500.2500 #### [facility] [address] [place], [address] Potassium [Moles/Vol] 4.3 mmol/L Normal 3.5-5.1 [facility] Comment on above: Performed By: #### L 100.0100, L500.2500 #### [facility] [address] [place], [address] Sodium [Moles/Vol] 138 mmol/L Normal 136-145 [facility] Comment on above: Performed By: #### L 100.0100, L500.2500 #### [facility] [address] [place], [address] Urea nitrogen [Mass/Vol] 19 mg/dL High 7-18 [facility] Comment on above: Performed By: #### L 100.0100, L500.2500 #### [facility] [address] [place], [address] CBC W/Diff, Automatedon 11-01 Absolute Lymph 0.87 X10 3/uL Normal 0.83-4.51 [facility] Comment on above: Performed By: #### L 100.0100, L500.2500 #### [facility] [address] [place], [address] Absolute Neut 8.9 X10 3/uL High 2.0-7.7 [facility] Comment on above: Performed By: #### L 100.0100, L500.2500 #### [facility] [address] [place], [address] Basophils/100 WBC (Bld) 0.2 % Normal 0-1 [facility] Comment on above: Performed By: #### L 100.0100, L500.2500 #### [facility] [address] [place], [address] Eosinophils/100 WBC (Bld) 0.0 % Normal 0-5 [facility] Comment on above: Performed By: #### L 100.0100, L500.2500 #### [facility] [address] [place], [address] Erythrocyte distribution width (RBC) [Ratio] 13.8 % Normal 11.6-14.6 [facility] Comment on above: Performed By: #### L 100.0100, L500.2500 #### [facility] [address] [place], [address] Hematocrit (Bld) [Volume fraction] 42.9 % Normal 37-47 [facility] Comment on above: Performed By: #### L 100.0100, L500.2500 #### [facility] [address] [place], [address] Hemoglobin (Bld) [Mass/Vol] 14.0 g/dL Normal 12.0-15.0 [facility] Comment on above: Performed By: #### L 100.0100, L500.2500 #### [facility] [address] [place], [address] IG% 1.500 High 0.0-0.9 [facility] Comment on above: Result Comment: IG% - Immature Granulocytes (promyelocytes, myelocytes and metamyelocytes) > 1% indicates that a LEFT SHIFT is Present. Performed By: #### L 100.0100, L500.2500 #### [facility] [address] [place], [address] Lymphocytes/100 WBC (Bld) 8.5 % Low 19-41 [facility] Comment on above: Performed By: #### L 100.0100, L500.2500 #### [facility] [address] [place], [address] MCH (RBC) [Entitic mass] 28.7 pg Normal 27.0-32.0 [facility] Comment on above: Performed By: #### L 100.0100, L500.2500 #### [facility] [address] [place], [address] MCHC (RBC) [Mass/Vol] 32.6 g/dL Normal 32-36 [facility] Comment on above: Performed By: #### L 100.0100, L500.2500 #### [facility] [address] [place], [address] MCV (RBC) [Entitic vol] 88.1 fL Normal 81-99 [facility] Comment on above: Performed By: #### L 100.0100, L500.2500 #### [facility] [address] [place], [address] Monocytes/100 WBC (Bld) 2.4 % Normal 0-10 [facility] Comment on above: Performed By: #### L 100.0100, L500.2500 #### [facility] [address] [place], [address] Neutrophils/100 WBC (Bld) 87.4 % High 47-70 [facility] Comment on above: Performed By: #### L 100.0100, L500.2500 #### [facility] [address] [place], [address] Nucleated RBC (Bld) [#/Vol] 0 10*3/uL Normal 0-5 [facility] Comment on above: Performed By: #### L 100.0100, L500.2500 #### [facility] [address] [place], [address] Platelet mean volume (Bld) [Entitic vol] 10.7 fL Normal 6.2-12.0 [facility] Comment on above: Performed By: #### L 100.0100, L500.2500 #### [facility] [address] [place], [address] Platelets (Bld) [#/Vol] 289 10*3/uL Normal 150-450 [facility] Comment on above: Performed By: #### L 100.0100, L500.2500 #### [facility] [address] [place], [address] RBC (Bld) [#/Vol] 4.87 10*6/uL Normal 4.2-5.4 [facility] Comment on above: Performed By: #### L 100.0100, L500.2500 #### [facility] [address] [place], [address] RDW SD 44.6 fl High 35.1-43.9 [facility] Comment on above: Performed By: #### L 100.0100, L500.2500 #### [facility] [address] [place], [address] WBC (Bld) [#/Vol] 10.2 10*3/uL Normal 4.4-11.0 [facility] Comment on above: Performed By: #### L 100.0100, L500.2500 #### [facility] [address] [place], [address] Arterial patency Wrist arter y --pre arterial punctureOrdered By: Rita Kenny on 11-19-[address] [facility] Base excess Calc (BldV) [Mol es/Vol]Ordered By: Rita Kenny on 11-19-2024 Blood Gas Base Excess 0 mmol/L -2-2 [facility] Basic Metabolic Profile (BMP )on 11-19-2024 BUN/CRE 13.5 RATIO Normal 07-19 [facility] Comment on above: Performed By: #### L 100.0100, L500.2500 #### [facility] [address] [place], [address] CA,Total 9.6 mg/dL Normal 8.5-10.1 [facility] Comment on above: Performed By: #### L 100.0100, L500.2500 #### [facility] [address] [place], [address] Chloride [Moles/Vol] 108 mmol/L High 98-107 [facility] Comment on above: Performed By: #### L 100.0100, L500.2500 #### [facility] [address] [place], [address] CO2 [Moles/Vol] 24.0 mmol/L Normal 21.0-32.0 [facility] [facility] Comment on above: Performed By: #### L 100.0100, L500.2500 #### [facility] [address] [place], [address] Creatinine [Mass/Vol] 1.04 mg/dL High 0.55-1.02 [facility] Comment on above: Result Comment: The validity of the calculated GFR GFRAA in patients over 70 years has not been determined. Clinical correlation is essential. Performed By: #### L 100.0100, L500.2500 #### [facility] [address] [place], [address] ECRCL 59.81 ml/min Normal [facility] Comment on above: Performed By: #### L 100.0100, L500.2500 #### [facility] [address] [place], [address] EST GFR - AA 68 mL/min Normal >60 [facility] Comment on above: Result Comment: Afri can Taiwanese GFR Calc Performed By: #### L 100.0100, L500.2500 #### [facility] [address] [place], [address] GAP 7 Normal 5-15 [facility] Comment on above: Performed By: #### L 100.0100, L500.2500 #### [facility] [address] [place], [address] GFR/1.73 sq M.predicted among non-blacks MDRD (S/P/Bld) [Vol rate/Area] 56 mL/min/{1.73_m2} Low >60 [facility] Comment on above: Result Comment: Non- GFR Calc Performed By: #### L 100.0100, L500.2500 #### [facility] [address] [place], [address] Glucose [Mass/Vol] 153 mg/dL High 74-106 [facility] Comment on above: Result Comment: Fast ing Glucose result greater than or equal to 126 mg/dL suggests DIABETES MELLITUS per A.D.A. criteria. Performed By: #### L 100.0100, L500.2500 #### [facility] [address] [place], [address] Potassium [Moles/Vol] 4.0 mmol/L Normal 3.5-5.1 [facility] Comment on above: Performed By: #### L 100.0100, L500.2500 #### [facility] [address] [place], [address] Sodium [Moles/Vol] 139 mmol/L Normal 136-145 [facility] Comment on above: Performed By: #### L 100.0100, L500.2500 #### [facility] [address] [place], [address] Urea nitrogen [Mass/Vol] 14 mg/dL Normal 7-18 [facility] Comment on above: Performed By: #### L 100.0100, L500.2500 #### [facility] [address] [place], [address] Blood Gases by [facility] 025 NICHOLE TEST Positive Normal [facility] Comment on above: Performed By: #### L 9000.0800 #### [facility] [address] [place], [address] Base excess Calc (Bld) [Moles/Vol] 0 mmol/L Normal -2 to +2 [facility] Comment on above: Performed By: #### L 9000.0800 #### [facility] [address] [place], [address] Blood Gas Type ART Normal [facility] Comment on above: Performed By: #### L 9000.0800 #### [facility] [address] [place], [address] CO2 [Moles/Vol] 23 mmol/L Normal [facility] Comment on above: Performed By: #### L 9000.0800 #### [facility] [address] [place], [address] [facility] Comment on above: Performed By: #### L 9000.0800 #### [facility] [address] [place], [address] HCO3 (Bld) [Moles/Vol] 22.1 mmol/L Normal 22-26 [facility] Comment on above: Performed By: #### L 0.0800 #### [facility] [address] [place], [address] Mode Not entered Normal [facility] Comment on above: Performed By: #### L 8999.0800 #### [facility] [address] [place], [address] O2 Delivery Dev Cannula Normal [facility] Comment on above: Performed By: #### L 8999.0800 #### [facility] [address] [place], [address] pCO2 25.4 mmHg Low 35-45 [facility] Comment on above: Performed By: #### L 8999.0800 #### [facility] [address] [place], [address] pH (Bld) 7.55 [pH] High 7.35-7.45 [facility] Comment on above: Performed By: #### L 8999.08 #### [facility] [address] [place], [address] PO2 162 mmHG High 75-100 [facility] Comment on above: Performed By: #### L 0.0800 #### [facility] [address] [place], [address] SITE L Radial Normal [facility] Comment on above: Performed By: #### L 8999.08 #### [facility] [address] [place], [address] SO2 100 High 95-99 [facility] Comment on above: Performed By: #### L 8999.0800 #### [facility] [address] [place], [address] Blood bicarbonate measuremen tOrdered By: Rita Kenny on 11-19-2024 Blood Gas Bicarbonate Actual 22.1 mmol/L - [facility] CBC W/Diff, Automatedon 11-01 Absolute Lymph 0.91 X10 3/uL Normal 0.83-4.51 [facility] Comment on above: Performed By: #### L 100.0100, L500.2500 #### [facility] [address] [place], [address] Absolute Neut 11.6 X10 3/uL High 2.0-7.7 [facility] Comment on above: Performed By: #### L 100.0100, L500.2500 #### [facility] [address] [place], [address] Basophils/100 WBC (Bld) 0.2 % Normal 0-1 [facility] Comment on above: Performed By: #### L 100.0100, L500.2500 #### [facility] [address] [place], [address] Eosinophils/100 WBC (Bld) 0.0 % Normal 0-5 [facility] Comment on above: Performed By: #### L 100.0100, L500.2500 #### [facility] [address] [place], [address] Erythrocyte distribution width (RBC) [Ratio] 13.7 % Normal 11.6-14.6 [facility] Comment on above: Performed By: #### L 100.0100, L500.2500 #### [facility] [address] [place], [address] Hematocrit (Bld) [Volume fraction] 40.8 % Normal 37-47 [facility] Comment on above: Performed By: #### L 100.0100, L500.2500 #### [facility] [address] [place], [address] Hemoglobin (Bld) [Mass/Vol] 13.4 g/dL Normal 12.0-15.0 [facility] Comment on above: Performed By: #### L 100.0100, L500.2500 #### [facility] [address] [place], [address] IG% 1.000 High 0.0-0.9 [facility] Comment on above: Result Comment: IG% - Immature Granulocytes (promyelocytes, myelocytes and metamyelocytes) > 1% indicates that a LEFT SHIFT is Present. Performed By: #### L 100.0100, L500.2500 #### [facility] [address] [place], [address] Lymphocytes/100 WBC (Bld) 7.0 % Low 19-41 [facility] Comment on above: Performed By: #### L 100.0100, L500.2500 #### [facility] [address] [place], [address] MCH (RBC) [Entitic mass] 29.1 pg Normal 27.0-32.0 [facility] Comment on above: Performed By: #### L 100.0100, L500.2500 #### [facility] [address] [place], [address] MCHC (RBC) [Mass/Vol] 32.8 g/dL Normal 32-36 [facility] Comment on above: Performed By: #### L 100.0100, L500.2500 #### [facility] [address] [place], [address] MCV (RBC) [Entitic vol] 88.5 fL Normal 81-99 [facility] Comment on above: Performed By: #### L 100.0100, L500.2500 #### [facility] [address] [place], [address] Monocytes/100 WBC (Bld) 2.5 % Normal 0-10 [facility] Comment on above: Performed By: #### L 100.0100, L500.2500 #### [facility] [address] [place], [address] Neutrophils/100 WBC (Bld) 89.3 % High 47-70 [facility] Comment on above: Performed By: #### L 100.0100, L500.2500 #### [facility] [address] [place], [address] Nucleated RBC (Bld) [#/Vol] 0 10*3/uL Normal 0-5 [facility] Comment on above: Performed By: #### L 100.0100, L500.2500 #### [facility] [address] [place], [address] Platelet mean volume (Bld) [Entitic vol] 11.8 fL Normal 6.2-12.0 [facility] Comment on above: Performed By: #### L 100.0100, L500.2500 #### [facility] [address] [place], [address] Platelets (Bld) [#/Vol] 261 10*3/uL Normal 150-450 [facility] Comment on above: Performed By: #### L 100.0100, L500.2500 #### [facility] [address] [place], [address] RBC (Bld) [#/Vol] 4.61 10*6/uL Normal 4.2-5.4 [facility] Comment on above: Performed By: #### L 100.0100, L500.2500 #### [facility] [address] [place], [address] RDW SD 44.3 fl High 35.1-43.9 [facility] Comment on above: Performed By: #### L 100.0100, L500.2500 #### [facility] [address] [place], [address] WBC (Bld) [#/Vol] 13.0 10*3/uL High 4.4-11.0 [facility] Comment on above: Performed By: #### L 100.0100, L500.2500 #### [facility] [address] [place], [address] CTA Chest W/WO Contraston CTA Chest W/WO Contrast [facility] [address] [place], [place] [address] CTA Chest W/WO Contrast MR#: [id number] Acct: [id number] Name: DIANNE ALVES Rep #: [id number] : 1955 F 69 From: Anthony wolff MD PCP: Dr. Leonie Peterson MD Status: ADM IN Study: CTA Chest W/WO Contrast Date of Exam: 11/19/24 Exam# [id number] Ordering Dr: Rita Kenny MD PROCEDURE: CTA CHEST W/WO CONTRAST REASON FOR EXAM: Acute on chronic hypoxic respiratory failure. TECHNIQUE: CTA imaging of the chest with intravenous contrast. 3D reconstructions. CONTRAST: 75 mL of Isovue-300. COMPARISON: Comparison is made with prior chest radiograph dated on November 17, 2024. FINDINGS: Hardware: None. Lymph nodes: No mediastinal hilar or axillary lymphadenopathy. Heart: Normal heart size. No pericardial effusion. Coronary artery calcification. RV/LV Diameter Ratio: N/A Thoracic Aorta: No thoracic aortic aneurysm or dissection. Pulmonary Vessels: No evidence of acute pulmonary emboli through the major subsegmental branches. Most Proximal Level of Embolus (if embolus present): N/A Lungs and Airways: Hyperinflation. Emphysematous changes. There is volume loss in the right middle lobe with findings suggestive of scarring. There is evidence of scarring in the lingula segment of the left upper lobe as well as in the lower lobes more prominent on the right side. Pleura: No pleural effusion. No pneumothorax. Upper Abdomen: Visualized portions of the upper abdominal viscera are unremarkable. Bones: Degenerative changes of the thoracic spine. CT/CTA Chest W/WO Contrast IMPRESSION: No evidence of pulmonary embolism. Scarring in the right upper lobe as well as lingular segment of the left upper lobe in both lung bases worse on the right side. One or more dose reduction techniques were used (e.g., Automated exposure control, adjustment of the mA and/or kV according to patient size, use of iterative reconstruction technique). Reading Location: [id number] CC: Dr. Leonie Peterson MD; Dr. Rita Kenny MD Drill Runner: Signed Normal [facility] Consultation - Intensiviston 11-19-2024 Consultation - Sealing Machine Operator [facility] Medical Records Department [address] [place] [address] Consultation - Sealing Machine Operator 11/19/24 1006 MR#: [id number] Acct: [id number] Name: DIANNE ALVES Rep #: [id number] : 1955 69 From: Zeyad Espinoza DO PCP: Dr. Leonie Peterson MD Status:ADM IN Location: [place] [id number] Assessment Plan Assessment/Plan (1) Influenza A: (2) Acute on chronic hypoxic respiratory failure: PLAN: Plan RECOMMENDATIONS: 1. Continue supplemental oxygen to maintain saturations at or above 90%. 2. Given onset of symptoms, the patient is outside of the window for Tamiflu. 3. I agree with continuing scheduled bronchodilators and steroids. 4. Continue gentle diuresis as tolerated by hemodynamics and renal function. 5. CTA chest is pending. 6. Check strep and urine Legionella antigens along with procalcitonin. 7. Initiate aggressive bronchopulmonary hygiene. IMPRESSIONS: 1. Acute on chronic hypoxemic respiratory failure Most likely secondary to COPD exacerbation related to influenza A infection. There was no additional infiltrate noted on chest x-ray at presentation to suggest a secondary bacterial pneumonia. However, CTA chest is currently pending. It is certainly plausible that mucous plugging is contributing to the patient's hypoxemia. Therefore, in addition to continuing scheduled bronchodilators and steroids, will initiate aggressive bronchopulmonary hygiene. The patient, at presentation, was outside of the window for Tamiflu administration. She will be continued on supplemental oxygen to maintain saturations at or above 90%. Continue gentle diuresis as tolerated by hemodynamics and renal function. 2. History of nicotine dependency in remission/hypothyroidism /hypertension/hyperlipid emia/GERD Complicates care, management, recovery and prognosis. Continue home medications as indicated. This note was generated with [employer] dictation software. It may contain incorrect words, spelling, and punctuation that were not noted in checking the note before signing. HPI Consult Data Date of Consult: 11/19/24 HPI Narrative Reason for Consultation: Acute on chronic hypoxemic respiratory failure HPI Narrative: The patient is a 69-year-old female, with a history as outlined below, who presented to the emergency department via EMS on November 17 with progressive dyspnea. The patient reported that her symptoms initially began approximately 1 week ago. She reports associated cough with sputum production. The patient has an extensive tobacco abuse history, having quit completely 3 years ago. She is currently followed in the pulmonary medicine clinic at [facility] due to a history of COPD and chronic hypoxemic respiratory failure with a baseline oxygen requirement of 2 L/min. On presentation to the emergency department, the patient was documented to be afebrile and hemodynamically stable. Laboratory evaluation revealed a normal white blood cell count. Coagulation profile was unremarkable. Chemistry profile was unrevealing. BNP was normal. Influenza A PCR was positive. Chest x-ray demonstrated no acute cardiopulmonary process. Following admission to the hospital, the patient has been maintained on scheduled bronchodilators and IV steroids. Surface echocardiogram completed yesterday demonstrated normal LV size and thickness with an ejection fraction of 65% and a right ventricular systolic pressure estimated to be 36 mmHg. [facility] Medical History (Updated 11/17/24 @ 16:23 by Gabriela West) Wears glasses Post-menopausal Gastric reflux Depression Walker [...] ???Type albuterol sulfate 90 mcg/actuation 2 puff inhalation Q4H PRN Wheezi ng 08/26/20 08/26/20 History aerosol inhaler aspirin 81 mg chewable tablet 81 mg PO DAILY BLOOD CLOT 08/26/20 11/16/24 History atorvastatin 40 mg tablet 40 mg PO DAILY 02/07/21 11/16/24 H istory furosemide 20 mg tablet 20 mg PO DAILY 10/17/22 11/16/24 H istory budesonide 160 mcg-glycopyr 9 2 inh inhalation BID 02/08/2310/31 History mcg-formot 4.8 mcg/actuation HFA inhaler (Breztri Aerosphere) diclofenac sodium 1 % topical gel 2 g topical BID PRN pain 02/15/23 (more content not included)... Normal [facility] Determination of fraction of inspired oxygenOrdered By: Rita Kenny on 11-19-2024 Blood Gas Oxygen Percent 12.0 [facility] L. pneumophila Ag Ql (U)Orde red By: Zeyad Espinoza on 11-19-2024 Legionella Antigen [facility] Legionella Antigen Urineon 0 11-19-2024 LEGU URINE, CLEAN CATCH Legionella Antigen result interpretation: L pneumo Ag Ur Ql Negative Presumptive negative for Legionella pneumophila serogroup 1 antigen in urine, suggesting no recent or current infection. Legionella Ag, Urine Negative (See interpretation below) Normal [facility] Comment on above: Performed By: #### M 300.9400, M300.2605 ####[facility] [id number] [place], [place], [id number] No Panel InformationOrdered By: Rita Kenny on 11-19-2024 Blood Gas Sample Site L Radial [facility] Blood Gas Specimen Type ART [facility] Blood Gas Vent Mode Not entered [facility] Oxygen Delivery Device Cannula [facility] Oxygen saturation measuremen tOrdered By: Rita Kenny on 11-19-2024 Blood Gas Oxygen Saturation 100 % High 95-99 [facility] Partial pressure of carbon d ioxide measurementOrdered By: Rita Kenny on 11-19-2024 Arterial Blood Partial Pressure CO2 25.4 mmHg Low 35-45 [facility] Partial pressure of oxygen m easurementOrdered By: Rita Kenny on 11-19-2024 Arterial Blood Partial Pressure O2 162 mmHG High 75-100 [facility] Procalcitoninon 11-19-2024 Procalcitonin 0.05 ng/mL Normal 0.00-0.09 [facility] Comment on above: Result Comment: A procalcitonin (PCT) level above 2.0 ng/mL on the first day of ICU admission is associated with a high risk for progression to severe sepsis and/or septic shock. A PCT level below 0.5 ng/mL on the first day of ICU admission is associated with a low risk for progression to severe and/or septic shock. Note: Concentrations <0.5 ng/mL do not exclude an infection on account of localized infections (without systemic signs) which can be associated with such low concentrations, or a systemic infection in its initial stages (<6 hours). Furthermore, increased procalcitonin can occur without infection. PCT concentrations between 0.5 and 2.0 ng/mL should be interpreted taking into account the patient's history. It is recommended to retest PCT within 6-24 hours if any concentrations <2 ng/mL are obtained. Performed By: #### L 509.7000 #### [facility] [place], [address] Procalcitonin [Mass/Vol]Orde red By: Zeyad Espinoza on 11-19-2024 Procalcitonin 0.05 ng/mL 0.00-0.09 [facility] Comment on above: A procalcitonin (PCT ) level above 2.0 ng/mL on the first day of ICU admission is associated with a high risk for progression to severe sepsis and/or septic shock. A PCT level below 0.5 ng/mL on the first day of ICU admission is associated with a low risk for progression to severe and/or septic shock. Note: Concentrations <0.5 ng/mL do not exclude an infection on account of localized infections (without systemic signs) which can be associated with such low concentrations, or a systemic infection in its initial stages (<6 hours). Furthermore, increased procalcitonin can occur without infection. PCT concentrations between 0.5 and 2.0 ng/mL should be interpreted taking into account the patient's history. It is recommended to retest PCT within 6-24 hours if any concentrations <2 ng/mL are obtained. Strep pneumoniae Antig(UR,CS F)on 11-19-2024 STPAG URINE INTERPRETATION Strep pneumoniae Antig(UR,CSF) Strep pneumoniae Antig(UR,CSF) Negative Urine Presumptive negative for pneumococcal pneumonia, suggesting no current or recent pneumococcal infection. Infection due to S pneumoniae cannot be ruled out since the antigen present in the sample may be below the detection limit of the test. Strep pneumo Test Negative URINE (See interpretation below) Normal [facility] Comment on above: Performed By: #### L 509.7000 #### [facility] [address] [place], [address] Streptococcus pneumoniae ant igen assayOrdered By: Zeyad Espinoza on 11-19-2024 Streptococcus pneumoniae Antigen (M [facility] Total carbon dioxide measure mentOrdered By: Rita Kenny on 11-19-2024 Blood Gas Total CO2 23 mmol/L [facility] pH (Unsp spec)Ordered By: Elizabeth Kenny on 11-19-2024 Blood Gas pH 7.55 High 7.35-7.45 [facility] Basic Metabolic Profile (BMP )on 11-18-2024 BUN/CRE 10.8 RATIO Normal - [facility] Comment on above: Performed By: #### L 500.2500, L100.0100 #### [facility] [address] [place], [address] CA,Total 9.3 mg/dL Normal 8.5-10.1 [facility] Comment on above: Performed By: #### L 500.2500, L100.0100 #### [facility] [address] [place], [address] Chloride [Moles/Vol] 105 mmol/L Normal 98-107 [facility] Comment on above: Performed By: #### L 500.2500, L100.0100 #### [facility] [address] [place], [address] CO2 [Moles/Vol] 24.0 mmol/L Normal 21.0-32.0 [facility] Comment on above: Performed By: #### L 500.2500, L100.0100 #### [facility] [address] [place], [address] Creatinine [Mass/Vol] 1.11 mg/dL High 0.55-1.02 [facility] Comment on above: Result Comment: The validity of the calculated GFR GFRAA in patients over 70 years has not been determined. Clinical correlation is essential. Performed By: #### L 500.2500, L100.0100 #### [facility] [address] [place], [address] ECRCL 55.64 ml/min Normal [facility] Comment on above: Performed By: #### L 500.2500, L100.0100 #### [facility] [address] [place], [address] EST GFR - AA 63 mL/min Normal >60 [facility] Comment on above: Result Comment: Afri can Taiwanese GFR Calc Performed By: #### L 500.2500, L100.0100 #### [facility] [address] [place], [address] GAP 10 Normal 5-15 [facility] Comment on above: Performed By: #### L 500.2500, L100.0100 #### [facility] [address] [place], [address] GFR/1.73 sq M.predicted among non-blacks MDRD (S/P/Bld) [Vol rate/Area] 52 mL/min/{1.73_m2} Low >60 [facility] Comment on above: Result Comment: Non- GFR Calc Performed By: #### L 500.2500, L100.0100 #### [facility] [address] [place], [address] Glucose [Mass/Vol] 272 mg/dL High 74-106 [facility] Comment on above: Result Comment: Gluc ose result greater than or equal to 200 mg/dL suggests DIABETES MELLITUS per A.D.A. criteria. Performed By: #### L 500.2500, L100.0100 #### [facility] [address] [place], [address] Potassium [Moles/Vol] 3.4 mmol/L Low 3.5-5.1 [facility] Comment on above: Performed By: #### L 500.2500, L100.0100 #### [facility] [address] [place], [address] Sodium [Moles/Vol] 139 mmol/L Normal 136-145 [facility] Comment on above: Performed By: #### L 500.2500, L100.0100 #### [facility] [address] [place], [address] Urea nitrogen [Mass/Vol] 12 mg/dL Normal 7-18 [facility] Comment on above: Performed By: #### L 500.2500, L100.0100 #### [facility] [address] [place], [address] CBC W/Diff, Automatedon 10-31 Absolute Lymph 1.20 X10 3/uL Normal 0.83-4.51 [facility] Comment on above: Performed By: #### L 500.2500, L100.0100 #### [facility] [address] [place], [address] Absolute Neut 6.1 X10 3/uL Normal 2.0-7.7 [facility] Comment on above: Performed By: #### L 500.2500, L100.0100 #### [facility] [address] [place], [address] Basophils/100 WBC (Bld) 0.3 % Normal 0-1 [facility] Comment on above: Performed By: #### L 500.2500, L100.0100 #### [facility] [address] [place], [address] Eosinophils/100 WBC (Bld) 0.0 % Normal 0-5 [facility] Comment on above: Performed By: #### L 500.2500, L100.0100 #### [facility] [address] [place], [address] Erythrocyte distribution width (RBC) [Ratio] 13.3 % Normal 11.6-14.6 [facility] Comment on above: Performed By: #### L 500.2500, L100.0100 #### [facility] [address] [place], [address] Hematocrit (Bld) [Volume fraction] 40.4 % Normal 37-47 [facility] Comment on above: Performed By: #### L 500.2500, L100.0100 #### [facility] [address] [place], [address] Hemoglobin (Bld) [Mass/Vol] 13.4 g/dL Normal 12.0-15.0 [facility] Comment on above: Performed By: #### L 500.2500, L100.0100 #### [facility] [address] [place], [address] IG% 0.300 Normal 0.0-0.9 [facility] Comment on above: Result Comment: IG% - Immature Granulocytes (promyelocytes, myelocytes and metamyelocytes) > 1% indicates that a LEFT SHIFT is Present. Performed By: #### L 500.2500, L100.0100 #### [facility] [address] [place], [address] Lymphocytes/100 WBC (Bld) 16.1 % Low 19-41 [facility] Comment on above: Performed By: #### L 500.2500, L100.0100 #### [facility] [address] [place] [facility] [place], [address] MCH (RBC) [Entitic mass] 29.0 pg Normal 27.0-32.0 [facility] Comment on above: Performed By: #### L 500.2500, L100.0100 #### [facility] [address] [place], [address] MCHC (RBC) [Mass/Vol] 33.2 g/dL Normal 32-36 [facility] Comment on above: Performed By: #### L 500.2500, L100.0100 #### [facility] [address] [place], [address] MCV (RBC) [Entitic vol] 87.4 fL Normal 81-99 [facility] Comment on above: Performed By: #### L 500.2500, L100.0100 #### [facility] [address] [place], [address] Monocytes/100 WBC (Bld) 1.2 % Normal 0-10 [facility] Comment on above: Performed By: #### L 500.2500, L100.0100 #### [facility] [address] [place], [address] Neutrophils/100 WBC (Bld) 82.1 % High 47-70 [facility] Comment on above: Performed By: #### L 500.2500, L100.0100 #### [facility] [address] [place], [address] Nucleated RBC (Bld) [#/Vol] 0 10*3/uL Normal 0-5 [facility] Comment on above: Performed By: #### L 500.2500, L100.0100 #### [facility] [address] [place], [address] Platelet mean volume (Bld) [Entitic vol] 11.5 fL Normal 6.2-12.0 [facility] Comment on above: Performed By: #### L 500.2500, L100.0100 #### [facility] [address] [place], [address] Platelets (Bld) [#/Vol] 205 10*3/uL Normal 150-450 [facility] Comment on above: Performed By: #### L 500.2500, L100.0100 #### [facility] [address] [place], [address] RBC (Bld) [#/Vol] 4.62 10*6/uL Normal 4.2-5.4 [facility] Comment on above: Performed By: #### L 500.2500, L100.0100 #### [facility] [address] [place], [address] RDW SD 42.8 fl Normal 35.1-43.9 [facility] Comment on above: Performed By: #### L 500.2500, L100.0100 #### [facility] [address] [place], [address] WBC (Bld) [#/Vol] 7.5 10*3/uL Normal 4.4-11.0 [facility] Comment on above: Performed By: #### L 500.2500, L100.0100 #### [facility] [address] [place], [address] BNP (brain natriuretic pepti de measurement)Ordered By: Doron Bernardo on 11-17-2024 Natriuretic peptide B (Bld) [Mass/Vol] 25.2 pg/mL 0-100 [facility] BNP,B-Type NATRIURETIC PEPTI Izaiah 11-17-2024 Natriuretic peptide B (Bld) [Mass/Vol] 25.2 pg/mL Normal 0-100 [facility] Comment on above: Performed By: #### L 100.0100, L500.2500 #### [facility] [address] [place], [address] Basic Metabolic Profile (BMP )on 11-17-2024 BUN/CRE 9.3 RATIO Low 10-20 [facility] Comment on above: Performed By: #### L 100.0100, L500.2500 #### [facility] [address] [place], [address] CA,Total 9.4 mg/dL Normal 8.5-10.1 [facility] Comment on above: Performed By: #### L 100.0100, L500.2500 #### [facility] [address] [place], [address] Chloride [Moles/Vol] 102 mmol/L Normal 98-107 [facility] Comment on above: Performed By: #### L 100.0100, L500.2500 #### [facility] [address] [place], [address] CO2 [Moles/Vol] 27.0 mmol/L Normal 21.0-32.0 [facility] Comment on above: Performed By: #### L 100.0100, L500.2500 #### [facility] [address] [place], [address] Creatinine [Mass/Vol] 1.07 mg/dL High 0.55-1.02 [facility] Comment on above: Result Comment: The validity of the calculated GFR GFRAA in patients over 70 years has not been determined. Clinical correlation is essential. Performed By: #### L 100.0100, L500.2500 #### [facility] [address] [place], [address] ECRCL 57.66 ml/min Normal [facility] Comment on above: Performed By: #### L 100.0100, L500.2500 #### [facility] [address] [place], [address] EST GFR - AA 65 mL/min Normal >60 [facility] Comment on above: Result Comment: Afri can Taiwanese GFR Calc Performed By: #### L 100.0100, L500.2500 #### [facility] [address] [place], [address] GAP 10 Normal 5-15 [facility] Comment on above: Performed By: #### L 100.0100, L500.2500 #### [facility] [address] [place], [address] GFR/1.73 sq M.predicted among non-blacks MDRD (S/P/Bld) [Vol rate/Area] 54 mL/min/{1.73_m2} Low >60 [facility] Comment on above: Result Comment: Non- GFR Calc Performed By: #### L 100.0100, L500.2500 #### [facility] [address] [place], [address] Glucose [Mass/Vol] 105 mg/dL Normal 74-106 [facility] Comment on above: Result Comment: Fast ing Glucose result from 100 to 125 mg/dL suggests IMPAIRED HOMEOSTASIS per A.D.A. criteria. Performed By: #### L 100.0100, L500.2500 #### [facility] [address] [place], [address] Potassium [Moles/Vol] 3.5 mmol/L Normal 3.5-5.1 [facility] Comment on above: Result Comment: Slig ht Hemolysis, Result may be falsely increased. Performed By: #### L 100.0100, L500.2500 #### [facility] [address] [place], [address] Sodium [Moles/Vol] 139 mmol/L Normal 136-145 [facility] Comment on above: Performed By: #### L 100.0100, L500.2500 #### [facility] [address] [place], [address] Urea nitrogen [Mass/Vol] 10 mg/dL Normal 7-18 [facility] Comment on above: Performed By: #### L 100.0100, L500.2500 #### [facility] [address] [place], [address] CBC W/Diff, Automatedon 10-31 PLT EST A Normal ADEQ [facility] Comment on above: Performed By: #### L 100.0100, L500.2500 #### [facility] [address] [place], [address] Chest PA and Lateralon 11-17 Chest PA and Lateral [facility] [address] [place] [address] Chest PA and Lateral MR#: [id number] Acct: [id number] Name: DIANNE ALVES Rep #: [id number] : 1955 F 69 From: Aquiles De La Torre MD PCP: Dr. Leonie Peterson MD Status: REG ER Study: Chest PA and Lateral Date of Exam: 11/17/24 Exam# [id number] Ordering Dr: Doron Bernardo DO PROCEDURE: CHEST PA AND LATERAL REASON FOR EXAM: Chest pain TECHNIQUE: Frontal and lateral views of the chest. COMPARISON: 11/21/2023 FINDINGS: The heart size is normal. There are atherosclerotic calcifications of the thoracic aorta. The lungs are clear. Degenerative changes are identified within the thoracic spine.. Left total shoulder arthroplasty RAD/Chest PA and Lateral IMPRESSION: No radiographic evidence of acute cardiopulmonary disease Reading Location: [facility] CC: Dr. Leonie Peterson MD; Dr. Doron Bernardo DO Drill Runner: Signed Normal [facility] Echo Complete W/ Contraston 11-17-2024 Echo Complete W/ Contrast [facility] [address] [place] [address] Echo Complete W/ Contrast 11/18/24 1311 MR#: [id number] Acct: [id number] Name: DIANNE ALVES Rep #: [id number] : 1955 69 From: Alexia Gil MD Attending Dr: Dr. Rita Kenny MD Status: AD M IN Ordering Dr: Stephenie Yu MD Date: 11/17/24 Location: [facility] Sex: F AA Admitted: 11/17/24 Reason For Study Reason For Study: SYNCOPE/NEAR SYNCOPE Procedure This was a 2D Doppler, Color Flow transthoracic echocardiogram. The study was technically difficult. Exam performed portable in patient room. Left Ventricle Normal size and thickness. The left ventricular ejection fraction is 65 %. Normal diastology for age. Right Ventricle Normal right ventricle. Atria The left and right atria are normal. Mitral Valve Trivial mitral valve insufficiency. Tricuspid Valve Trivial tricuspid valve insufficiency. Right ventricular systolic pressure estimated to be 36 mmHg. Aortic Valve Aortic sclerosis, no stenosis. Pulmonic Valve The pulmonic valve is not well visualized. Great Vessels Normal sized aortic root. Pericardium/Pleural No pericardial effusion. Medication Diluted definity 1ml given slow IV push to enhance endocardial definition. MMode/2D Measurements Calculations LVIDd: 3.5 cm IVSd: 1.1 cm Ao root diam: 3.2 cm LVIDs: 2.4 cm LVPWd: 1.1 cm RVDd: 3.1 cm FS: 32.1 % _ LAV(MOD-bp): 18.9 ml LVAd ap4: 16.5 cm2 SV(MOD-sp4): 24.9 ml LAV(MOD-bp) Indexed: 9.3 ml/m2 LVLd ap4: 6.3 cm SI(MOD-sp4): 12.3 ml/m2 LAV(MOD-sp2): 19.3 ml EDV(MOD-sp4): 35.8 ml LAV(MOD-sp4): 18.6 ml EDV(sp4-el): 36.8 ml LVAs ap4: 8.2 cm2 LVLs ap4: 5.0 cm ESV(MOD-sp4): 10.8 ml ESV(sp4-el): 11.3 ml EF(MOD-sp4): 69.7 % EF(sp4-el): 69.3 % _ SV(sp4-el): 25.5 ml LA A4 area: 9.8 cm2 LA dimension(2D): 2.3 cm _ RA A4 area: 9.3 cm2 TAPSE: 1.8 cm Time Measurements MV dec time: 0.30 sec Doppler Measurements Calculations MV E max ernie: 67.2 cm/sec Lat Peak E' Ernie: 10.3 cm/sec Med Peak E' Ernie: 8.5 cm/sec MV A max ernie: 87.7 cm/sec E/E' lat: 6.5 E/E' med: 7.9 MV E/A: 0.77 _ Ao V2 max: 134.2 cm/sec LV V1 max: 111.8 cm/sec TR max ernie: 277.6 cm/sec Ao max P.2 mmHg LV V1 max P.0 mmHg TR max P.8 mmHg ECHO/Echo Complete W/ Contrast Interpretation Summary The left ventricular ejection fraction is 65 %. Right ventricular systolic pressure estimated to be 36 mmHg. Aortic sclerosis, no stenosis. Ordering Physician: Stephenie Yu Referring Physician: LEONIE PETERSON Performed By: Gregoria Joseph RDCS 11/18/24 1447 Date Alexia Gil MD CC: Dr. Leonie Peterson MD; Dr. Rita Kenny MD; Dr. Stephenie Yu MD Date Dictated: 11/18/24 1311 Date Transcribed: 11/18/24 1447 Drill Runner: Signed Normal [facility] Emergency Department Summary on 11-17-2024 Emergency Department Summary [facility] Medical Records Department [address] [place] [id number] Emergency Department Summary 11/17/24 MR#: [id number] Acct: [id number] Name: DIANNE ALVES Rep #: [id number] : 1955 69 From: Doron Bernardo DO PCP: Dr. Leonie Peterson MD Status:REG ER Location: ED HPI History of Present Illness Chief Complaint: Shortness of Breath Narrative Narrative: Patient is a 61-year-old female with past medical history of COPD chronically on 2 L nasal cannula, DVT, hypertension, alcohol abuse, hypercholesteremia, depression who presented to the emerged depar tment chief complaint of shortness of breath and cough. According to patient's family member on Saturday she became ill and states that her mother passed out at home. She states that she got through the weekend followed up with their primary care doctor and noted that she was hypoxic on her oxygen called EMS to have her brought here further evaluation management. Per EMS she was 88% on 2 L they placed her on 5 L nasal cannula. [facility] Medical History Wears glasses Post-menopausal Gastric reflux Depression Walker [...] 2 puff IH Q4H PRN PRN Wheezing 1 10/26/19 08/26/20 History aerosol inhaler aspirin 81 mg chewable tablet 81 mg PO DAILY BLOOD CLOT 08/26/20 04/26/24 History lisinopril 10 mg tablet 30 mg PO DAILY bp 08/26/20 4 07:30 History tizanidine 2 mg capsule 4 mg PO Q8 PRN Muscle Spasm 04/29/24 History atorvastatin 40 mg tablet 40 mg PO DAILY 02/07/21 Unknown Hi story furosemide 20 mg tablet 20 mg PO DAILY 10/17/22 Unknown Hi story potassium chloride 10 mEq 10 meq PO DAILY 10/17/22 Unknown H istory capsule,extended release budesonide 160 mcg-glycopyr 9 2 inh inhalation BID 02/08/23 Unkn own History mcg-formot 4.8 mcg/actuation HFA inhaler (Breztri Aerosphere) gabapentin 300 mg capsule 300 mg PO [...] capsule 400 mg PO QHS 08/05/23 Unknown His tory acetaminophen 500 mg tablet 1,000 mg PO Q8 PRN pain 04/27/24 U nknown History omeprazole 40 mg capsule,delayed 40 mg PO DAILY 04/27/24 Unknown Hi story release Allergy/AdvReac Type Severity Reaction Status Date / Time No Known Allergies Allergy Verified 11/17/24 11:55 Family History Mother Hypertension Other Alcoholism Surgical [...] and coffee ROS ROS ED ROS Narrative Constitutional: Complains of chills diffuse bodyaches and not feeling well overall Eyes: Denies change in vision double vision blurry vision Cardiovascular: Complains of chest discomfort from coughing denies palpitations Respiratory: Complains of cough and shortness of breath as noted above Abdomen: Denies abdominal pain nausea vomit diarrhea : Denies any urinary symptoms Neurological: Denies numbness, weakness, tingling Musculoskeletal: Denies back pain Skin: Denies any rashes or lesions EXAM Physical Exam Narrative Exam Narrative: General: Patient lying in bed did appear to be not feeling well overall Head: Atraumatic, normocephalic Eyes: PERRL bilaterally, EOMI bilaterally, no conjunctival injection (more content not included)... Normal [facility] H AND P Exam - [facility]iston 11-17-2024 H&P Exam - Hospitalist [facility] Medical Records Department [address] [place] [address] H P Exam - Hospitalist 11/17/24 1457 MR#: [id number] Acct: [id number] Name: DIANNE ALVES Rep #: [id number] : 1955 69 From: Stephenie Yu MD PCP: Dr. Leonie Peterson MD Status:ADM IN Location: [place] [id number] HPI - General General Date of Admission: 11/17/24 Date of Service: 11/17/24 Chief Complaint: Increase shortness of breath HPI Narrative DIANNE ALVES, is a 69-year-old female history of COPD on 2 L nasal cannula chronically, GERD, hep C who presented [facility] ED 09/16/2025 due to shortness of breath. She has been feeling ill with increased shortness of breath and cough since Saturday and had a syncopal episode but recovered and stayed at home throughout the weekend until today when she saw her primary care doc but was noted to be 84% on 2 L of O2 and EMS was called. By the time EMS got there she was 88% on 2 L and she was then placed on 5 L nasal cannula. In the ED patient 94% on 3 L, chest x-ray within normal limits, troponin slightly elevated at 69 and she was found to be influenza A positive. Patient was given steroids and breathing treatments and hospitalist contacted for admission for COPD exacerbation. Patient seen at bedside and is having increased work of breathing as she took off her oxygen walk to the bathroom and back, breathing treatment being applied. Patient somewhat poor historian and friend at bedside provided some the history. Patient has been sick since Saturday and had a syncopal episode the patient reports she was walking and then she just was on the floor, had not had this before or after and said maybe she was feeling lightheaded and days prior to that been having nausea, vomiting, and diarrhea. Notes her chest hurts when she coughs and has had increased cough and shortness of breath as well as fever, stuffy nose and sore throat, feels generally achy and unwell. When asked about blood clots in her legs she comments that she had a surgery before on the vessels with a stent and is on aspirin, she is unsure if she supposed to be on a full dose blood thinner or if she is on 1. [facility] Medical History Wears glasses Post-menopausal Gastric reflux Depression Walker [...] ???Type albuterol sulfate 90 mcg/actuation 2 puff inhalation Q4H PRN Wheezi ng 08/26/20 08/26/20 History aerosol inhaler aspirin 81 mg chewable tablet 81 mg PO DAILY BLOOD CLOT 08/26/20 11/16/24 History atorvastatin 40 mg tablet 40 mg PO DAILY 02/07/21 11/16/24 H istory furosemide 20 mg tablet 20 mg PO DAILY 10/17/22 11/16/24 H istory potassium chloride 10 mEq 10 meq PO DAILY 10/17/22 11/16/24 History capsule,extended release budesonide 160 mcg-glycopyr 9 2 inh inhalation BID 02/08/2310/31 History mcg-formot 4.8 mcg/actuation HFA inhaler (Breztri Aerosphere) diclofenac sodium 1 % topical gel 2 g topical BID PRN pain 02/15/23 11/16/24 History (Voltaren Arthritis Pain) omeprazole 40 mg capsule,delayed 40 mg PO DAILY 04/27/24 11/16/24 H istory release famotidine 40 mg tablet 40 mg PO QHS 11/17/24 Unknown Hist ory lisinopril 30 mg tablet 30 mg PO DAILY 11/17/24 11/16/24 H istory methimazole 5 mg tablet 5 mg PO DAILY 11/17/24 Unknown His tory tizanidine 4 mg tablet 4 mg PO Q8 PRN muscle spasms 11/17 Unknown History Allergy/AdvReac Type Severity Reaction Status Date / Time No Known Allergies Allergy Verified 11/17/24 11:55 Family History Mother Hypertension Other Alcoholism Surgical History History of rotator cuff surgery H/O vascular surgery Stenosis of artery of left lower extremity Social History household members: none housing: apartment current occupational status: retired Smoking Status: Former smoker how long ago did patient quit smoking: January 2022 alcohol intake: former substance use type: former substanc (more content not included)... Normal [facility] Influenza virus A and B and SARS-CoV-2 (COVID-19) and Respiratory syncytial virus RNAOrdered By: Doron Bernardo on 11-17-2024 SARS-CoV-2 (COVID-19) RNA SHEELA+probe Ql (Unsp spec) Influenzae A Abnormal [facility] International normalized rat io (INR) calculationOrdered By: Doron Bernardo on 11-17-2024 INR Coag (Bld) [Relative time] 1.1 {INR} [facility] L501.4020on 11-17-2024 TROPONIN-I HS 59 pg/mL High 3.0-54.0 [facility] Comment on above: Order Comment: 'TROP ' Serial specimen #1, #2 or #3: 1 Result Comment: Plea se Note: New Test Units and Gender Specific Reference Ranges. For more information see Policy Stat Procedure [place] High Sensitivity Troponin (TNIH) and attachments. Performed By: #### L 100.0100, L500.2500 #### [facility] [address] [place], [address] TROPONIN-I HS 71 pg/mL High 3.0-54.0 [facility] Comment on above: Result Comment: Plea se Note: New Test Units and Gender Specific Reference Ranges. For more information see Policy Stat Procedure [place] High Sensitivity Troponin (TNIH) and attachments. Performed By: #### L 501.4020 #### [facility] [address] [place], [address] L501.5425on 11-17-2024 TROPONIN-I HS 68 pg/mL High 3.0-54.0 [facility] Comment on above: Order Comment: 1Y Result Comment: [place] Note: New Test Units and Gender Specific Reference Ranges. For more information see Policy Stat Procedure [place] High Sensitivity Troponin (TNIH) and attachments. Performed By: #### L 100.0100, L500.2500 #### [facility] [address] [place], [address] M100.678on 11-17-2024 M100.678 Normal Reference Ran ge = Negative FLUABV+SARS-CoV-2+RSV Pnl Resp SHEELA+probe GeneXI-Shake Instrument, PCR method FLUABV+SARS-CoV-2+RSV Pnl Resp SHEELA+probe Copy of report sent to Infection Control Printer [id number] 11/17/24 8819 HEATHERJAIMIE. FLUABV+SARS-CoV-2+RSV Pnl Resp SHEELA+probe RESULTS CALLED TO Yves FITZPATRICK 11/17/24 1317 [place]. REPORT READ BACK BY . SARS-CoV-2 (COVID 19) Negative INFLUENZA A A Positive A INFLUENZA B Negative RSV PCR Negative INFLUENZAE A Normal [facility] Comment on above: Performed By: #### M 100.678 ####[facility] [address] [place], [place], [id number] Partial Thromboplast Timeon 11-17-2024 aPTT Coag (Bld) [Time] 28.7 s Normal 24.1-36.2 [facility] Comment on above: Order Comment: HUGO Alegria PREVIOUS SPECIMEN REJECTED DUE TOHEMOLYSIS. 11/17/24 1237 Maria Elena Courtney. Performed By: #### L 300.4310, L300.3900 ####[facility] [address] [place], [place], [id number] Platelets LM Ql (Bld)Ordered By: Doron Bernardo on 11-17-2024 Platelet [address] A ADEQ [facility] Prothrombin Time w/INRon INR Coag (PPP) [Relative time] 1.1 {INR} Normal [facility] Comment on above: Order Comment: REDRA W. PREVIOUS SPECIMEN REJECTED DUE TOHEMOLYSIS. 11/17/24 1237 Maria Elena Courtney. Performed By: #### L 300.4310, L300.3900 ####[facility] [address] [place], [address] PT Coag (PPP) [Time] 14.5 s Normal 11.7-14.9 [facility] Comment on above: Order Comment: REDRA W. PREVIOUS SPECIMEN REJECTED DUE TOHEMOLYSIS. 11/17/24 1237 Maria Elena Courtney. Performed By: #### L 300.4310, L300.3900 ####[facility] [address] [place], [address] [facility] Comment on above: Result Comment: This specimen has been REJECTED due to Laboratory criteria: Hemolyzed. KRANTHI has been notified of need of recollection. 11/17/24 1236 Maria Elena Dealzano Performed By: #### L 100.0100, L500.2500 #### [facility] [address] [place], [address] PROTIME Normal 11.7-14.9 [facility] Comment on above: Result Comment: This specimen has been REJECTED due to Laboratory criteria: Hemolyzed. KRANTHI has been notified of need of recollection. 11/17/24 1236 Maria Elena Dealzano Performed By: #### L 100.0100, L500.2500 #### [facility] [address] [place], [address] Prothrombin timeOrdered By: Doron Bernardo on 11-17-2024 PT Coag (PPP) [Time] 14.5 s 11.7-14.9 [facility] Troponin IOrdered By: Stephenie Yu on 11-17-2024 Troponin I High Sensitivity 59 pg/mL High 3.0-54.0 [facility] Comment on above: Please Note: New Fina t Units and Gender Specific Reference Ranges. For more information see Policy Stat Procedure [place] High Sensitivity Troponin (TNIH) and attachments. aPTT Coag (PPP) [Time]Ordere d By: Doron Bernardo on 11-17-2024 aPTT Coag (Bld) [Time] 28.7 s 24.1-36.2 [facility] CNCOon 11-11-2024 CNCO Letter Text Normal [facility] CNOVon 11-09-2024 CNOV Normal [facility] CT LUNG SCREEN WO IVCONon CT LUNG SCREEN WO IVCON Normal [facility] Basic metabolic 2000 panelon 10-30-2024 Anion gap [Moles/Vol] 11 mmol/L Normal 8-15 [facility] Comment on above: Order Comment: Speci men Type: BLOOD SPECIMENOrdering Facility: [facility] Address: [address] [place] [address] Performed By: #### 2 4321-2, 02980-2, 3051-0, 3053-6 ####[facility] LABCLIA [id number] [place] [address] [place] Calcium [Mass/Vol] 9.8 mg/dL Normal 8.5-10.2 [facility] Comment on above: Order Comment: Speci men Type: BLOOD SPECIMENOrdering Facility: [facility] Address: [address] [place] [address] Performed By: #### 2 4321-2, 98366-8, 3051-0, 3053-6 ####[facility] LABCLIA [id number] [place] [address] [place] Chloride [Moles/Vol] 106 mmol/L Normal 98-107 [facility] Comment on above: Order Comment: Speci men Type: BLOOD SPECIMENOrdering Facility: [facility] Address: [address] [place] [address] Performed By: #### 2 4321-2, 77607-4, 3051-0, 3053-6 ####[facility] LABCLIA [id number] [place] [address] [place] CO2 [Moles/Vol] 23 mmol/L Normal 22-30 [facility] Comment on above: Order Comment: Speci men Type: BLOOD SPECIMENOrdering Facility: [facility] Address: [address] [place] [address] Performed By: #### 2 4321-2, 12045-2, 3051-0, 3053-6 ####[facility] LABCLIA [id number] [place] [address] [place] Creatinine [Mass/Vol] 1.03 mg/dL High 0.58-0.96 [facility] Comment on above: Order Comment: Speci men Type: BLOOD SPECIMENOrdering Facility: [facility] Address: [address] [place] [address] Performed By: #### 2 4321-2, 97393-5, 3051-0, 3053-6 ####[facility] LABIA [id number] [place] [address] [place] Creatinine and Glomerular filtration rate.predicted panel (S/P/Bld) 59 mL/min/1.73m??? Low >=60 [facility] Comment on above: Order Comment: Jalen santizo Type: BLOOD SPECIMENOrdering Facility: [facility] Address: [address] [place] [address] Result Comment: Sigrid mated Glomerular Filtration Rate [...] reflect actual GFR. Performed By: #### 2 4321-2, 25196-2, 3051-0, 3053-6 ####[facility] LABCLIA [id number] [place] [id number] [place] Glucose [Mass/Vol] 98 mg/dL Normal 74-99 [facility] Comment on above: Order Comment: Wmi men Type: BLOOD SPECIMENOrdering Facility: [facility] Address: [address] [place] [address] Result Comment: The [place] Diabetes Association (ADA) provides guidance for cutoff [...] Standards of Medical Care in Diabetes 2016, [place] [employer] Association. Diabetes Care. 2016.39(Suppl 1). Performed By: #### 2 4321-2, 15783-8, 3051-0, 3053-6 ####[facility] LABCLIA [id number] [place] [address] [place] Potassium [Moles/Vol] 4.1 mmol/L Normal 3.7-5.1 [facility] Comment on above: Order Comment: Jalen santizo Type: BLOOD SPECIMENOrdering Facility: [facility] Address: [address] [place] [address] Performed By: #### 2 4321-2, 26824-8, 3051-0, 3053-6 ####[facility] LABCLIA [id number] [place] [address] [place] Sodium [Moles/Vol] 140 mmol/L Normal 136-144 [facility] Comment on above: Order Comment: Wmi men Type: BLOOD SPECIMENOrdering Facility: [facility] Address: [address] [place] [address] Performed By: #### 2 4321-2, 38835-6, 3051-0, 3053-6 ####[facility] LABCLIA [id number] [place] [address] [place] Urea nitrogen [Mass/Vol] 14 mg/dL Normal 7-21 [facility] Comment on above: Order Comment: Speci men Type: BLOOD SPECIMENOrdering Facility: [facility] Address: [address] [place] [address] Performed By: #### 2 4321-2, 21338-2, 3051-0, 3053-6 ####[facility] LABCLIA [id number] [place] [address] [place] CBC W Auto Differential pane l (Bld)on 10-30-2024 Basophils (Bld) [#/Vol] 0.04 10*3/uL Normal <0.11 [facility] Comment on above: Order Comment: Speci men Type: BLOOD SPECIMENOrdering Facility: [facility] Address: [address] [place] [address] Performed By: #### 5 7021-8 ####[facility] LABCLIA [id number] [place] [address] [place] Basophils/100 WBC (Bld) 0.7 % Normal [facility] Comment on above: Order Comment: Speci men Type: BLOOD SPECIMENOrdering Facility: [facility] Address: [address] [place] [address] Performed By: #### 5 7021-8 ####[facility] LABCLIA [id number] [place] [address] [place] Differential cell count method Nom (Bld) Auto Normal [facility] Comment on above: Order Comment: Speci men Type: BLOOD SPECIMENOrdering Facility: [facility] Address: [address] [place] [address] Performed By: #### 5 7021-8 ####[facility] LABCLIA [id number] [place] [address] [place] Eosinophils (Bld) [#/Vol] 0.27 10*3/uL Normal <0.46 [facility] Comment on above: Order Comment: Speci men Type: BLOOD SPECIMENOrdering Facility: [facility] Address: [address] [place] [address] Performed By: #### 5 7021-8 ####[facility] LABCLIA [id number] [place] [id number] [place] Eosinophils/100 WBC (Bld) 4.7 % Normal [facility] Comment on above: Order Comment: Speci men Type: BLOOD SPECIMENOrdering Facility: [facility] Address: [address] [place] [address] Performed By: #### 5 7021-8 ####[facility] LABIA [id number] [place] [address] [place] Erythrocyte distribution width (RBC) [Ratio] 13.9 % Normal 11.5-15.0 [facility] Comment on above: Order Comment: Speci men Type: BLOOD SPECIMENOrdering Facility: [facility] Address: [address] [place] [address] Performed By: #### 5 7021-8 ####[facility] LABCLIA [id number] [place] [address] [place] Hematocrit (Bld) [Volume fraction] 46.4 % High 36.0-46.0 [facility] Comment on above: Order Comment: Speci men Type: BLOOD SPECIMENOrdering Facility: [facility] Address: [address] [place] [address] Performed By: #### 5 7021-8 ####[facility] LABCLIA [id number] [place] [id number] [place] Hemoglobin (Bld) [Mass/Vol] 15.1 g/dL Normal 11.5-15.5 [facility] Comment on above: Order Comment: Speci men Type: BLOOD SPECIMENOrdering Facility: [facility] Address: [address] [place] [address] Performed By: #### 5 7021-8 ####[facility] LABCLIA [id number] [place] [address] [place] Immature granulocytes (Bld) [#/Vol] 10*3/uL Normal <0.10 [facility] Comment on above: Order Comment: Speci men Type: BLOOD SPECIMENOrdering Facility: [facility] Address: [address] [place] [address] Performed By: #### 5 7021-8 ####[facility] LABCLIA [id number] [place] [address] [place] Immature granulocytes/100 WBC (Bld) 0.2 % Normal [facility] Comment on above: Order Comment: Speci men Type: BLOOD SPECIMENOrdering Facility: [facility] Address: [address] [place] [address] Performed By: #### 5 7021-8 ####[facility] LABCLIA [id number] [place] [address] [place] Lymphocytes (Bld) [#/Vol] 2.33 10*3/uL Normal 1.00-4.00 [facility] Comment on above: Order Comment: Speci men Type: BLOOD SPECIMENOrdering Facility: [facility] Address: [address] [place] [address] Performed By: #### 5 7021-8 ####[facility] LABCLIA [id number] [place] [address] [place] Lymphocytes/100 WBC (Bld) 40.9 % Normal [facility] Comment on above: Order Comment: Speci men Type: BLOOD SPECIMENOrdering Facility: [facility] Address: [address] [place] [address] Performed By: #### 5 7021-8 ####[facility] LABCLIA [id number] [place] [address] [place] MCH (RBC) [Entitic mass] 29.2 pg Normal 26.0-34.0 [facility] Comment on above: Order Comment: Speci men Type: BLOOD SPECIMENOrdering Facility: [facility] Address: [address] [place] [address] Performed By: #### 5 7021-8 ####[facility] LABCLIA [id number] [place] [address] [place] MCHC (RBC) [Mass/Vol] 32.5 g/dL Normal 30.5-36.0 [facility] Comment on above: Order Comment: Speci men Type: BLOOD SPECIMENOrdering Facility: [facility] Address: [address] [place] [address] Performed By: #### 5 7021-8 ####[facility] LABIA [id number] [place] [address] [place] MCV (RBC) [Entitic vol] 89.6 fL Normal 80.0-100.0 [facility] Comment on above: Order Comment: Speci men Type: BLOOD SPECIMENOrdering Facility: [facility] Address: [address] [place] [address] Performed By: #### 5 7021-8 ####[facility] LABIA [id number] [place] [address] [place] Monocytes (Bld) [#/Vol] 0.37 10*3/uL Normal <0.87 [facility] Comment on above: Order Comment: Speci men Type: BLOOD SPECIMENOrdering Facility: [facility] Address: [address] [place] [address] Performed By: #### 5 7021-8 ####[facility] LABIA [id number] [place] [address] [place] Monocytes/100 WBC (Bld) 6.5 % Normal [facility] Comment on above: Order Comment: Speci men Type: BLOOD SPECIMENOrdering Facility: [facility] Address: [address] [place] [address] Performed By: #### 5 7021-8 ####[facility] LABCLIA [id number] [place] [address] [place] Neutrophils (Bld) [#/Vol] 2.67 10*3/uL Normal 1.45-7.50 [facility] Comment on above: Order Comment: Speci men Type: BLOOD SPECIMENOrdering Facility: [facility] Address: [address] [place] [address] Performed By: #### 5 7021-8 ####[facility] LABCLIA [id number] [place] [address] [place] Neutrophils/100 WBC (Bld) 47.0 % Normal [facility] Comment on above: Order Comment: Speci men Type: BLOOD SPECIMENOrdering Facility: [facility] Address: [address] [place] [address] Performed By: #### 5 7021-8 ####[facility] LABCLIA [id number] [place] [address] [place] Nucleated RBC (Bld) [#/Vol] 10*3/uL Normal <0.01 [facility] Comment on above: Order Comment: Speci men Type: BLOOD SPECIMENOrdering Facility: [facility] Address: [address] [place] [address] Performed By: #### 5 7021-8 ####[facility] LABCLIA [id number] [place] [address] [place] Nucleated RBC/100 WBC (Bld) [Ratio] 0.0 /100 WBC Normal [facility] Comment on above: Order Comment: Speci men Type: BLOOD SPECIMENOrdering Facility: [facility] Address: [address] [place] [address] Performed By: #### 5 7021-8 ####[facility] LABCLIA [id number] [place] [address] [place] Platelet mean volume (Bld) [Entitic vol] 10.8 fL Normal 9.0-12.7 [facility] Comment on above: Order Comment: Speci men Type: BLOOD SPECIMENOrdering Facility: [facility] Address: [address] [place] [address] Performed By: #### 5 7021-8 ####[facility] LABCLIA [id number] [place] [address] [place] Platelets (Bld) [#/Vol] 290 10*3/uL Normal 150-400 [facility] Comment on above: Order Comment: Speci men Type: BLOOD SPECIMENOrdering Facility: [facility] Address: [address] [place] [address] Performed By: #### 5 7021-8 ####[facility] LABCLIA [id number] [place] [address] [place] RBC (Bld) [#/Vol] 5.18 10*6/uL Normal 3.90-5.20 [facility] Comment on above: Order Comment: Speci men Type: BLOOD SPECIMENOrdering Facility: [facility] Address: [address] [place] [address] Performed By: #### 5 7021-8 ####[facility] LABCLIA [id number] [place] [address] [place] WBC (Bld) [#/Vol] 5.69 10*3/uL Normal 3.70-11.00 [facility] Comment on above: Order Comment: Speci men Type: BLOOD SPECIMENOrdering Facility: [facility] Address: [address] [place] [address] Performed By: #### 5 7021-8 ####[facility] LABCLIA [id number] [place] [address] [place] CNOVon 10-30-2024 CNOV Normal [facility] HbA1c (Bld)on 10-30-2024 Average glucose Estimated from glycated hemoglobin (Bld) [Mass/Vol] 120 mg/dL Normal [facility] Comment on above: Order Comment: Jalen santizo Type: BLOOD SPECIMENOrdering Facility: [facility] Address: [address] [place] [address] Result Comment: eAG: (Estimated average glucose) is a calculated value from HgbA1c and is hvac sales representative of the average blood glucose level in the last 2-3 month period. Performed By: #### 5 5454-3 ####[facility] LABCLIA [id number] [place] [address] [place] HbA1c (Bld) [Mass fraction] 5.8 % High 4.3-5.6 [facility] Comment on above: Order Comment: Jalen santizo Type: BLOOD SPECIMENOrdering Facility: [facility] Address: [address] [place] [address] Result Comment: [place] Diabetes Association guidelines indicate that patients with HgbA1c in the range 5.7-6.4% are at increased risk for development of diabetes, and intervention by lifestyle modification may be beneficial. HgbA1c greater or equal to 6.5% is considered diagnostic of diabetes. Performed By: #### 5 5454-3 ####[facility] LABCLIA [id number] [place] [address] [place] Lipid 1996 panelon 5 Cholesterol [Mass/Vol] 241 mg/dL High <200 [facility] Comment on above: Order Comment: Jalen santizo Type: BLOOD SPECIMENOrdering Facility: [facility] Address: [address] [place] [address] Result Comment: <200 mg/dL, Desirable 200-239 mg/dL, Borderline high>239 mg/dL, High Performed By: #### 2 4321-2, 32490-5, 3051-0, 3053-6 ####[facility] LABCLIA [id number] [address] [place] Cholesterol in HDL [Mass/Vol] 51 mg/dL Normal >39 [facility] Comment on above: Order Comment: Jalen sukhdev Type: BLOOD SPECIMENOrdering Facility: [facility] Address: [address] [place] [address] Result Comment: 40-5 9 mg/dL, Acceptable>59 mg/dL, High: Negative risk factor for coronary heart disease<40 mg/dL, Low: Positive risk factor for coronary heart disease Performed By: #### 2 4321-2, 13520-4, 3051-0, 3053-6 ####[facility] LABCLIA [id number] [place] [id number] [place] Cholesterol in LDL [Mass/Vol] 166 mg/dL High <100 [facility] Comment on above: Order Comment: Speci men Type: BLOOD SPECIMENOrdering Facility: [facility] Address: [address] [place] [address] Result Comment: <100 mg/dL, Optimal 100-129 mg/dL, Near optimal/above optimal 130-159 mg/dL, Borderline high 160-189 mg/dL, High>189 mg/dL, Very highSecondary prevention optimal LDL Cholesterol levels are recommended to be < 70 mg/dL Performed By: #### 2 4321-2, 02554-1, 3051-0, 3053-6 ####[facility] LABCLIA [id number] [place] [address] [place] Cholesterol in LDL/Cholesterol in HDL [Mass ratio] 3.25 {ratio} High <2.54 [facility] Comment on above: Order Comment: Speci men Type: BLOOD SPECIMENOrdering Facility: [facility] Address: [address] [place] [address] Result Comment: Refe rence:1. National Cholesterol Education Program ATP III Guideline At-A-Glance Quick Desk Reference: National Heart, Lung, and Blood [place]. National Institutes of Health. 2001: NIH Publication No. 01-3305.2. An International Atherosclerosis Society position paper: global recommendations for the management of dyslipidemia: executive summary, Atherosclerosis. 2014: 232(2):410-413. Performed By: #### 2 4321-2, 44256-4, 3051-0, 3053-6 ####[facility] LABCLIA [id number] [address] [address] [place] Cholesterol in VLDL [Mass/Vol] 24 mg/dL Normal <30 [facility] Comment on above: Order Comment: Speci men Type: BLOOD SPECIMENOrdering Facility: [facility] Address: [address] [place] [address] Performed By: #### 2 4321-2, 81901-4, 305-0, 305-6 ####[facility] LABCLIA [id number] [address] [address] [place] Cholesterol non HDL [Mass/Vol] 190 mg/dL High <130 [facility] Comment on above: Order Comment: Speci men Type: BLOOD SPECIMENOrdering Facility: [facility] Address: [address] [place] [address] Result Comment: <130 mg/dL, Optimal 130-159 mg/dL, Near optimal/above optimal 160-189 mg/dL, Borderline high 190-219 mg/dL, High>219 mg/dL, Very highSecondary prevention optimal non HDL Cholesterol levels are recommended to be <100 mg/dL Performed By: #### 2 4321-2, 60782-0, 305-0, 305-6 ####[facility] LABCLIA [id number] [address] [address] [place] Cholesterol.total/Chol esterol in HDL [Mass ratio] 4.73 {ratio} Normal <5.10 [facility] Comment on above: Order Comment: Speci men Type: BLOOD SPECIMENOrdering Facility: [facility] Address: [address] [place], [place] [address] Performed By: #### 2 4321-2, 43518-4, 305-0, 305-6 ####[facility] LABCLIA [id number] [address] [address] [place] FASTING TIME 12 hrs Normal [facility] Comment on above: Order Comment: Speci men Type: BLOOD SPECIMENOrdering Facility: [facility] Address: [address] [place] [address] Performed By: #### 2 4321-2, 17136-7, 305-0, 3056 ####[facility] LABCLIA [id number] [place] [address] [place] Triglyceride [Mass/Vol] 120 mg/dL Normal <150 [facility] Comment on above: Order Comment: Speci men Type: BLOOD SPECIMENOrdering Facility: [facility] Address: [address] [place] [address] Result Comment: <150 mg/dL, Normal 150-199 mg/dL, Borderline high 200-499 mg/dL, High>499 mg/dL, Very high Performed By: #### 2 4321-2, 41055-7, 305-0, 6 ####[facility] LABCLIA [id number] [place] [address] [place] Magnesium SerPl-mCncon 10-30 Magnesium [Mass/Vol] 2.0 mg/dL Normal 1.7-2.3 [facility] Comment on above: Order Comment: Speci men Type: BLOOD SPECIMENOrdering Facility: [facility] Address: [address] [place] [address] Performed By: #### 3 024-7, 21550-9, 3016-3 ####[facility] LABCLIA [id number] [place] [address] [place] T3 SerPl-mCncon 10-30-2024 T3 [Mass/Vol] 101 ng/dL Normal 79-165 [facility] Comment on above: Order Comment: Speci men Type: BLOOD SPECIMENOrdering Facility: [facility] Address: [address] [place] [address] Performed By: #### 2 4321-2, 48560-8, 305-0, 3056 ####[facility] LABCLIA [id number] [place] [address] [place] T3Free SerPl-mCncon 10-30-19 25 Free T3 [Mass/Vol] 3.1 pg/mL Normal 2.3-4.1 [facility] Comment on above: Order Comment: Speci men Type: BLOOD SPECIMENOrdering Facility: [facility] Address: [address] [place] [address] Performed By: #### 2 4321-2, 68928-0, 3051-0, 3053-6 ####[facility] LABIA [id number] [place] [address] [place] T4 Free SerPl-mCncon 025 Free T4 [Mass/Vol] 1.3 ng/dL Normal 0.9-1.7 [facility] Comment on above: Order Comment: Speci men Type: BLOOD SPECIMENOrdering Facility: [facility] Address: [address] [place] [address] Performed By: #### 3 024-7, 59035-0, 3016-3 ####[facility] [id number] [place] [address] [place] TSH SerPl-aCncon 10-30-2024 TSH Qn 0.138 m[IU]/L Low 0.270-4.200 [facility] Comment on above: Order Comment: Speci men Type: BLOOD SPECIMENOrdering Facility: [facility] Address: [address] [place] [address] Performed By: #### 3 024-7, 22604-2, 3016-3 ####[facility] [id number] [place] [id number] [place] CNOVon 10-27-2024 CNOV Office Visit (AGHWW1 ) -------- DIANNE ALVES ([id number]) 1955 F Date Time Provider Department 10/27/24 10:45 AM YUE FRANKS AGHWW1 During your visit today, we recorded the following information about you: Respiration Weight Height 20/minute 97.5 kg 1.676 m Yue Franks PA-C 10/27/2024 10:59 AM Signed Yue Franks PA-C Department of Orthopaedics October 27, [...] needed, return to clinic with any concerns. 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 - methIMAzole (TAPAZOLE) 5 mg tablet Take 1 tablet by mouth once daily. - STOOL SOFTENER 100 mg capsule Take 1 capsule by mouth two times a day. - tiZANidine (ZANAFLEX) 4 mg tablet Take 1 tablet by mouth every 8 hours as needed. - ondansetron (ZOFRAN) 4 mg tablet Take 1 tablet by mouth every 8 hours as needed for nausea/vomiting. - ipratropium-albuterol (DUONEB) 0.5 mg-3 mg(2.5 mg base)/3 mL nebu Inhale 3 mL as instructed three times a day as needed for wheezing/shortness of breath. - qkbgdgjvcp-arvhznhu-rhly oterol (BREZTRI) 160-9-4.8 mcg/actuation HFA aerosol inhaler Inhale 2 Puffs as instructed two times a day. - albuterol HFA (VENTOLIN HFA) 90 mcg/actuation inhaler Inhale 2 Puffs as instructed every 4 hours as needed. - furosemide (LASIX) 20 mg tablet Take 1 tablet by mouth once daily. Take in the morning - omeprazole (PRILOSEC) 40 mg capsule Take 1 capsule by mouth once daily. - etodolac (LODINE) 400 mg tablet Take 1 tablet by mouth two times a day. - lisinopril (ZESTRIL) 30 mg tablet Take 1 tablet by mouth once daily. - OXYGEN, HOME THERAPY, Inhale 2-4 L/min as instructed continuous. - Blood Pressure Monitor (BLOOD PRESSURE KIT) 1 Each once daily. - Nebulizer Accessories kit 1 Each three times a day as needed. - Nebulizer and Compressor For Neb 1 Each once daily. - Incontinence Pad, Liner, Disp pads 2-3x daily for urge incontinence - Spirometers and Accessories deidre Patient needs an inspiratory spirometer - MEDICAL SUPPLY Hand rails- for the shower and rest room - atorvastatin (LIPITOR) 40 mg tablet Take 1 tablet by mouth once daily. Problem List As Of Date 10/27/2024 Noted Resolved Weakness [R53.1] 11/19/2011 Back pain [...] Acute right-sided low back pain without sciatic*05/03/2021 Tobacco abuse [Z72.0] 06/26/2021 OAB (overactive bladder) [N32.81] 12/13/2021 Other chest pain [R07.89] 06/11/2022 Chronic hypoxemic respiratory failure (HCC) [J9*07/19/2022 Diastolic dysfunction [I51.89] 09/13/2022 Pulmona (more content not included)... Normal [facility] CNPNon 09-25-2024 CNPN Normal [facility] CNOVon 09-21-2024 CNOV Normal [facility] T3 SerPl-mCncon 09-21-2024 T3 [Mass/Vol] 88 ng/dL Normal 79-165 [facility] Comment on above: Order Comment: Speci men Type: BLOOD SPECIMENOrdering Facility: [facility] Address: [address] [place] [address] Performed By: #### 3 053-6, 3016-3, 3024-7 ####[facility] LABCLIA [id number] [facility] [place] [address] [place] T4 Free SerPl-mCncon 024 Free T4 [Mass/Vol] 1.3 ng/dL Normal 0.9-1.7 [facility] Comment on above: Order Comment: Speci men Type: BLOOD SPECIMENOrdering Facility: [facility] Address: [address] [place] [address] Performed By: #### 3 053-6, 3016-3, 3024-7 ####[facility] LABCLIA [id number] [address] OF [place] TSH SerPl-aCncon 09-21-2024 TSH Qn 0.648 m[IU]/L Normal 0.270-4.200 [facility] Comment on above: Order Comment: Speci men Type: BLOOD SPECIMENOrdering Facility: [facility] Address: [address] [place] [address] Performed By: #### 3 053-6, 3016-3, 3024-7 ####[facility] LABCLIA [id number] [address] OF [facility] CNOVon 09-15-2024 CNOV Office Visit (AGHWW1 ) -------- DIANNE ALVES ([id number]) 1955 F Date Time Provider Department 09/15/24 10:45 AM YUE FRANKS AGHWW1 During your visit today, we recorded the following information about you: Respiration Weight Height 20/minute 97.5 kg 1.676 m Yue Franks PA-C 09/15/2024 11:13 AM Signed Yue Franks PA-C Department of Orthopaedics September 15, [...] repeat xrays of shoulder at that time. 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 for pain.Disp: 28 tabletRfl: 0 Prescriptions as of 09/15/2024 - oxyCODONE-acetaminophen (PERCOCET) 5-325 mg tablet Take 1 tablet by mouth every 6 hours as needed for pain for up to 7 days. for pain. - STOOL SOFTENER 100 mg capsule Take 1 capsule by mouth two times a day. - tiZANidine (ZANAFLEX) 4 mg tablet Take 1 tablet by mouth every 8 hours as needed. - ondansetron (ZOFRAN) 4 mg tablet Take 1 tablet by mouth every 8 hours as needed for nausea/vomiting. - ipratropium-albuterol (DUONEB) 0.5 mg-3 mg(2.5 mg base)/3 mL nebu Inhale 3 mL as instructed three times a day as needed for wheezing/shortness of breath. - zmjymgfcwd-rkszulco-dgzn oterol (BREZTRI) 160-9-4.8 mcg/actuation HFA aerosol inhaler Inhale 2 Puffs as instructed two times a day. - albuterol HFA (VENTOLIN HFA) 90 mcg/actuation inhaler Inhale 2 Puffs as instructed every 4 hours as needed. - furosemide (LASIX) 20 mg tablet Take 1 tablet by mouth once daily. Take in the morning - omeprazole (PRILOSEC) 40 mg capsule Take 1 capsule by mouth once daily. - etodolac (LODINE) 400 mg tablet Take 1 tablet by mouth two times a day. - lisinopril (ZESTRIL) [...] affected area two times a day. - Nebulizer Accessories kit 1 Each three times a day as needed. - Nebulizer and Compressor For Neb 1 Each once daily. - Incontinence Pad, Liner, Disp pads 2-3x daily for urge incontinence - Spirometers and Accessories deidre Patient needs an inspiratory spirometer - MEDICAL SUPPLY Hand rails- for the shower and rest room - atorvastatin (LIPITOR) 40 mg tablet Take 1 tablet by mouth once daily. Problem List As Of Date 09/15/2024 Noted Resolved Weakness [R53.1] 11/19/2011 Back pain [...] left shoulder pain [M25.512, G89.29] 11/01/2020 Other (more content not included)... Normal [facility] CNPTOUTREACHon 09-08-2024 CNPTOUTREACH Normal [facility] CNPTOUTREACHon 08-28-2024 CNPTOUTREACH Normal [facility] CNPTOUTREACHon 08-25-2024 CNPTOUTREACH Normal [facility] CNOVon 08-18-2024 CNOV Office Visit (AGHWW1 ) -------- DIANNE ALVES ([id number]) 1955 F Date Time Provider Department 08/18/24 10:45 AM DOMINICK PAYTON HWW1 During your visit today, we recorded the following information about you: Temperature Weight Height 98.2 degrees 97.5 kg 1.676 m Diogenes Varela Tech 08/19/2024 8:50 AM Signed REVIEW OF SYSTEMS: GENERAL: Well [...] symptoms HEMATOLOGY: Clots yes Dominick Payton MD 08/19/2024 8:50 AM Signed PAIN EVALUATION 08/18/2024 1041 Pain Level: 8 [...] AND Elbow Surgeon Department of Orthopaedic Surgery [facility] Allergies As of Date: 08/18/2024 (No Known Allergies) Date Reviewed: 08/18/2024 Reviewed by: Diogenes Varela Tech - Fully Assessed Reason for Visit: Follow Up [171] Pain [78] Post Op [174] Primary Visit Diagnosis:S/P reverse total shoulder arthroplasty, 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 for pain.Disp: 28 tabletRfl: 0 Prescriptions as of 08/19/2024 - oxyCODONE-acetaminophen (PERCOCET) 5-325 mg tablet Take 1 tablet by mouth every 6 hours as needed for pain for up to 7 days. for pain. - tiZANidine (ZANAFLEX) 4 mg tablet Take 1 tablet by mouth every 8 hours as needed. - oxyCODONE-Acetaminophen (PERCOCET) 2.5-325 mg per tablet Take 1 tablet by mouth every 8 hours as needed for pain. - polyethylene glycol 3350 17 gram packet Take 1 Packet by mouth once daily. Dissolve dose in 4 - 8 ounces of liquid and take as directed. - docusate sodium (COLACE) 100 mg capsule Take 1 capsule by mouth two times a day. - ondansetron (ZOFRAN) 4 mg tablet Take 1 tablet by mouth every 8 hours as needed for nausea/vomiting. - ipratropium-albuterol (DUONEB) 0.5 mg-3 mg(2.5 mg base)/3 mL nebu Inhale 3 mL as instructed three times a day as needed for wheezing/shortness of breath. - itzhezyelz-uacavgfh-jazq oterol (BREZTRI) 160-9-4.8 mcg/actuation HFA aerosol inhaler Inhale 2 Puffs as instructed two times a day. - albuterol HFA (VENTOLIN HFA) 90 mcg/actuation inhaler Inhale 2 Puffs as instructed every 4 hours as needed. - furosemide (LASIX) 20 mg tablet Take 1 tablet by mouth once daily. Take in the morning - omeprazole (PRILOSEC) 40 mg capsule Take 1 capsule by mouth once daily. - etodolac (LODINE) 400 mg tablet Take 1 tablet by mouth two times a day. - lisinopril (ZESTRIL) [...] affected area two times a day. - Nebulizer Accessories kit 1 Each three times a day as needed. - Nebulizer and Compressor For Neb 1 Each once daily. - Incontinence Pad, Liner, Disp pa (more content not included)... Normal [facility] CNPNon 08-18-2024 CNPN Normal [facility] CNPNon 08-17-2024 CNPN Normal [facility] CBC panel Auto (Bld)on 08-14 Erythrocyte distribution width (RBC) [Ratio] 14.4 % Normal 11.5-15.0 [facility] Comment on above: Order Comment: Speci men Type: BLOOD SPECIMENOrdering Facility: [facility] Address: [address] [place] [address] Performed By: #### 5 8410-2 ####[facility] LABIA [id number] [place] [address] [place] Hematocrit (Bld) [Volume fraction] 41.4 % Normal 36.0-46.0 [facility] Comment on above: Order Comment: Speci men Type: BLOOD SPECIMENOrdering Facility: [facility] Address: [address] [place] [address] Performed By: #### 5 8410-2 ####[facility] LABIA [id number] [place] [address] [place] Hemoglobin (Bld) [Mass/Vol] 13.2 g/dL Normal 11.5-15.5 [facility] Comment on above: Order Comment: Speci men Type: BLOOD SPECIMENOrdering Facility: [facility] Address: [address] [place] [address] Performed By: #### 5 8410-2 ####[facility] LABIA [id number] [place] [address] [place] MCH (RBC) [Entitic mass] 29.3 pg Normal 26.0-34.0 [facility] Comment on above: Order Comment: Speci men Type: BLOOD SPECIMENOrdering Facility: [facility] Address: [address] [place] [address] Performed By: #### 5 8410-2 ####[facility] LABIA [id number] [place] [address] [place] MCHC (RBC) [Mass/Vol] 31.9 g/dL Normal 30.5-36.0 [facility] Comment on above: Order Comment: Speci men Type: BLOOD SPECIMENOrdering Facility: [facility] Address: [address] [place] [address] Performed By: #### 5 8410-2 ####[facility] LABCLIA [id number] [place] [address] [place] MCV (RBC) [Entitic vol] 92.0 fL Normal 80.0-100.0 [facility] Comment on above: Order Comment: Speci men Type: BLOOD SPECIMENOrdering Facility: [facility] Address: [address] [place] [address] Performed By: #### 5 8410-2 ####[facility] LABCLIA [id number] [place] [address] [place] Nucleated RBC (Bld) [#/Vol] 10*3/uL Normal <0.01 [facility] Comment on above: Order Comment: Speci men Type: BLOOD SPECIMENOrdering Facility: [facility] Address: [address] [place] [address] Performed By: #### 5 8410-2 ####[facility] LABCLIA [id number] [place] [address] [place] Platelet mean volume (Bld) [Entitic vol] 10.7 fL Normal 9.0-12.7 [facility] Comment on above: Order Comment: Speci men Type: BLOOD SPECIMENOrdering Facility: [facility] Address: [address] [place] [address] Performed By: #### 5 8410-2 ####[facility] LABCLIA [id number] [place] [address] [place] Platelets (Bld) [#/Vol] 301 10*3/uL Normal 150-400 [facility] Comment on above: Order Comment: Speci men Type: BLOOD SPECIMENOrdering Facility: [facility] Address: [address] [place] [address] Performed By: #### 5 8410-2 ####[facility] LABCLIA [id number] [place] [address] [place] RBC (Bld) [#/Vol] 4.50 10*6/uL Normal 3.90-5.20 [facility] Comment on above: Order Comment: Speci men Type: BLOOD SPECIMENOrdering Facility: [facility] Address: [address] [place] [address] Performed By: #### 5 8410-2 ####[facility] LABCLIA [id number] [place] [address] [place] WBC (Bld) [#/Vol] 7.01 10*3/uL Normal 3.70-11.00 [facility] Comment on above: Order Comment: Speci men Type: BLOOD SPECIMENOrdering Facility: [facility] Address: [address] [place] [address] Performed By: #### 5 8410-2 ####[facility] LABCLIA [id number] [place] [address] [place] CNOVon 08-14-2024 CNOV Normal [facility] CNPNon 08-14-2024 CNPN Normal [facility] PT panel Coag (PPP)on 2023 INR Coag (PPP) [Relative time] 1.1 {INR} Normal 0.9-1.3 [facility] Comment on above: Order Comment: Speci men Type: BLOOD SPECIMENOrdering Facility: [facility] Address: [address] [place] [address] Result Comment: Soraida min K Antagonist (VKA) Therapeutic Range: INR 2 to 3 (Target INR of 2.5)Note: For patients treated with VKA drugs, such as warfarin, the [employer] 2012 Guideline recommends a therapeutic INR range of 2 to 3 (target INR of 2.5). This recommendation includes high-risk patients with antiphospholipid syndrome with previous arterial or venous thromboembolism, current-generation mechanical or bioprosthetic aortic heart valve replacement.Note: Patients with mechanical aortic valve replacement and additional risk factors for thromboembolic events (atrial fibrillation, previous thromboembolism, LV dysfunction, hypercoagulable conditions) or an older generation mechanical AVR (i.e., ball in-Cage) or any mechanical MVR should have a INR therapeutic range of 2.5 to 3.5 (target INR of 3).Myra GH, et al. Chest 2012, 141:7S-47SNishimura RA, et al. [facility] 2017, 70: 252-289 Performed By: #### 3 4528-0 ####[facility] [id number] [place] [address] [place] PT Coag (PPP) [Time] 11.3 s Normal 9.7-13.0 [facility] Comment on above: Order Comment: Speci men Type: BLOOD SPECIMENOrdering Facility: [facility] Address: [address] [place] [address] Performed By: #### 3 4528-0 ####[facility] [id number] [place] [address] [place] XR RIBS 2V AP/OBL RTon 08-14 XR RIBS 2V AP/OBL RT Normal [facility] XR SHOULDER 2V AP/TRUE AP LT on 08-14-2024 XR SHOULDER 2V AP/TRUE AP LT Normal [facility] CNPNon 08-13-2024 CNPN Normal [facility] CNPNon 08-12-2024 CNPN Normal [facility] CNPTOUTREACHon 08-11-2024 CNPTOUTREACH Normal [facility] CNPNon 08-10-2024 CNPN Normal [facility] CASE MANAGEMon 08-09-2024 CASE MANAGEM HNO ID: [id number] Author: VANESA GUERRA RN Service: ? Author Type: Registered Nurse Type: Care Mgt Progress Note Filed: 08/09/2024 10:54 Note Text: CARE MANAGEMENT DISCHARGE NOTE SERVICE DATE: August 09, 2024 SERVICE TIME: 10:13 AM Admission Date: 08/07/2024 LOS: 0 days Discharge Arrangement Discharge Arrangement: Home with Home Health Services Arranged Medical Services: Skilled Home Health Care Type: Home Health Agency, Long-Term, Physical Therapy, Occupational Therapy Provider Name: [facility] Caregiver Assessment Caregiver is ready, willing and able to meet the patient's needs as recommended by the inter-professional team: Yes Name of Caregiver: Judaism friends Transportation Arrangements Transportation Arrangements: Car- Friend to transport Handoff Communication: Handoff to: Primary Care Physician Primary Care Physician Name/Phone: Dr. Leonie Peterson- [phone] Additional Information: Discharge order written for today. [facility] will be seeing the patient for [facility] services at discharge, they will notify the patient of a start of care date. Notified [facility] of the patients discharge home today. Discharge instructions sent to [facility] via noodls. Patient states she has a portable 02 tank with her for her transport home. Discharge Information Row Name Admission (Current) from 08/07/[address] Home Health Care Agency [facility] SIGNATURE: Vanesa Guerra RN PATIENT NAME: Dianne Alves DATE: August 09, 2024 TIME: 10:13 AM CONTACT #: [phone] [facility] CASE MGT INIT Barbara 2023 CASE MGT INIT [facility] HNO ID: [id number] Author: VANESA GUERRA RN Service: ? Author Type: Registered Nurse Type: Care Mgt Initial Assessment Filed: 08/09/2024 09:32 Note Text: CARE MANAGEMENT: ASSESSMENT AND DISCHARGE PLAN SERVICE DATE: August 09, 2024 SERVICE TIME: 9:11 AM PCP: Leonie Peterson MD Primary Contact: Extended Emergency Contact Information Primary Emergency Contact: Felicitas Glez Relation: Friend Admission Status: Ambulatory Surgery Insurance Provider: [employer] HMO Discharge Planning requested by: Per Department Practice Potential Transition Plans Home Care Advance Directives Current Advance Directive: None Wood Barrel Reconditioner Attempted to Assist with AD Completion: Yes Action: Patient Unwilling Current Living Arrangements and Support Lives with: Alone Type of Residence: Private Residence (Apartment or Condo) Does the patient have to climb stairs at home?: No Support: Judaism/karo community How do you manage to accomplish the following: Independent: Ambulation;Bathe/Shower; Dress;Meals/Meal Prep;Going to the bathroom;Medication Management Dependent: Transportation to appointments/community Current Services/Equipment Current Post-Acute Service(s): DME, Oxygen Current O2 Usage (device, rate, continuous/pulse and hrs per day): 2 LPM, continuous Current DME Type: Rollator Scooter, Cane Discharge Planning Patient Goal(s): Be able to go home, Less pain [place] Explained: [place] Given: Yes Level of Care Discussed: Home Care Are you interested in bedside delivery of your medications? No Drug [place] [facility] Discharge Planning Participant(s): Patient Patient/Family Comments: Caregiver Assessment: Caregiver is ready, willing and able to meet the patient's needs as recommended by the inter-professional team: No Caregiver needed Transport at Discharge: Transportation Arrangements: Car Needs Prior to Discharge: Needs Prior to Discharge: Home Care Order;Other: See Comment (Accepting HHC agency) Post-Acute Discharge Plan: Review of the chart and met with the patient. 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 Does not drive, takes a cab to her doctor appointments and jainism members take her grocery shopping. The patient has Home 02 at 2L through [employer], states has her portable tank with her for her transport home. The patient stated she wants HHC at discharge, no preference on a HHC agency. Referral placed to multiple C agencies. CM department will continue to follow for DC needs. 9:32 am- [facility] able to accept. SIGNATURE: Vanesa Guerra RN PATIENT NAME: Dianne Alves DATE: August 09, 2024 TIME: 9:11 AM CONTACT #: [phone] [facility] 08-09-2024 [facility] HNO ID: [id number] Author: DOMINICK PAYTON MD Service: Orthopaedic Surgery Author Type: Physician Type: Discharge Summary Filed: 08/19/2024 10:34 Note Text: DISCHARGE NOTE (Patient Admitted Less than 48 Hours) SERVICE DATE: 08/09/2024 ADMISSION DATE: 08/07/2024 DISCHARGE DISPOSITION: Home with Self Care PHYSICAL EXAM: Blood pressure 143/79, pulse 70, [...] No masses or organomegaly EXTREMITIES: no edema DIET: Regular ACTIVITY AFTER DISCHARGE: Resume pre-hospital activity FOLLOW UP CARE REQUIRED: Dr. Payton DISCHARGE MEDICATIONS: Medication List START taking these medications docusate sodium 100 mg capsule Commonly known as: COLACE Take 1 capsule by mouth two times a day. ondansetron 4 mg tablet Commonly known as: ZOFRAN Take 1 tablet by mouth every 8 hours as needed for nausea/vomiting. polyethylene glycol 3350 17 gram packet Take 1 Packet by mouth once daily. Dissolve dose in 4 - 8 ounces of liquid and take as directed. CONTINUE taking these medications albuterol HFA 90 mcg/actuation inhaler Commonly known as: VENTOLIN HFA Inhale 2 Puffs as instructed every 4 hours as needed. atorvastatin 40 mg tablet Commonly known as: LIPITOR Take 1 tablet by mouth once daily. Blood Pressure Monitor Commonly known as: BLOOD PRESSURE KIT 1 Each once daily. mcqywexoit-bfnhmiob-msvp oterol 160-9-4.8 mcg/actuation HFA aerosol inhaler Commonly known as: BREZTRI Inhale 2 Puffs as instructed two times a day. diclofenac 1 % topical gel Commonly known as: VOLTAREN Apply 2 g to affected area two times a day. etodolac 400 mg tablet Commonly known as: LODINE Take 1 tablet by mouth two times a day. furosemide 20 mg tablet Commonly known as: LASIX Take 1 tablet by mouth once daily. Take in the morning Incontinence Pad, Liner, Disp Pads 2-3x daily for urge incontinence ipratropium-albuterol 0.5 mg-3 mg(2.5 mg base)/3 mL Nebu Commonly known as: DUONEB Inhale 3 mL as instructed three times a day as needed for wheezing/shortness of breath. lisinopril 30 mg tablet Commonly known as: ZESTRIL Take 1 tablet by mouth once daily. MEDICAL SUPPLY Hand rails- for the shower and rest room methIMAzole 5 mg tablet Commonly known as: TAPAZOLE Take 1 tablet by mouth once daily. Nebulizer Accessories Kit 1 Each three times a day as needed. Nebulizer and Compressor For Neb 1 Each once daily. omeprazole 40 mg capsule Commonly known as: PriLOSEC Take 1 capsule by mouth once daily. OXYGEN (HOME THERAPY) Spirometers and Accessories Deidre Patient needs an inspiratory spirometer STOP taking these medications GAVILYTE-G 236-22.74-6.74 -5.86 gram suspension Generic drug: peg 3350-Electrolytes mupirocin 2 % ointment Commonly known as: BACTROBAN tiZANidine 4 mg tablet Commonly known as: ZANAFLEX ASK your doctor about these medications oxyCODONE-acetaminophen 5-325 mg tablet Commonly known as: PERCOCET Take 1-2 tablets by mouth every 4 hours as needed for pain for up to 3 days. Ask about: Should I take this medication? Where to Get Your Medications These medications were sent to [facility] - [place] [address] - [address] - [phone] [address] [place] [address] docusate sodium 100 mg capsule ondansetron 4 mg tablet oxyCODONE-acetaminophen 5-325 mg tablet polyethylene glycol 3350 17 gram packet FINAL DIAGNOSIS: s/p left reverse total shoulder arthroplasty Obesity Class I (BMI 30-34.9) SIGNATURE: Dominick Payton MD PATIENT NAME: Dianne Alves DATE: August 19, 2024 TIME: 10:32 AM [facility] THERAPY NTon 08-09-2024 THERAPY NT HNO ID: [id number] Author: CHANDLER ARAIZA PT Service: Physical Therapy Author Type: Physical Therapist Type: Therapy (PT/OT/Speech/Resp) Filed: 08/09/2024 10:10 Note Text: -------- Summary: PT Evaluation -------- Physical Therapy Evaluation Summary SERVICE DATE: 08/09/2024 SERVICE TIME: 912 to 935 ROOM: [id number]- PT 6 Clicks Score: 19 Total Joint Replacement Discharge Readiness: Cleared from Physical Therapy DISCHARGE RECOMMENDATIONS Home PT Recommended Discharge Disposition Comments: Pt currently functioning below baseline s/p L reverse total shoulder surgery. Pt presents with decreased ROM, decreased strength, impaired activity tolerance, impaired balance, and overall decreased funtional mobility. Pt would benefit from continued skilled services post acute stay to address deficits Recommended Discharge Equipment: No equipment needs anticipated ASSESSMENT Response to Therapy Interventions: Good Participation in Activities, Improved Tolerance for Activity, On-Track to Achieve Discharge Goals, Multiple Ongoing Medical Issues Discussed with patient potential benefits of SNF stay s/p hospital stay due to limited assistance at home, however patient refuses SNF and reports she is confident in her ability to perform tasks at home and is agreeable to Home PT servics upon discharge. Patient requires SBA-CGA this date with no AD for ambulation. Demonstrates low tolerance however states she is mostly sedentary at home and only plans to ambulate to/from the bathroom. Of note, it has been recommended multiple times during this admission that patient have OT orders to educate on reverse total shoulder protocol/restrictions and to assist patient with learning self care tasks independently such as bathing and dressing, however MD declined OT services. PRECAUTIONS Fall Risk, Sling Assuming NWB in sling on LUE. 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 Reports has 2 dogs who are currently home alone with no one to let them out for toileting. Reports, I set up pads in the bathroom so they could go. Patient reports she sleeps on her couch and only gets off the couch to go to/from the bathroom. Patient reports intent to return home so the Lord can heal her. Reports friend from [employer] will drive her home today. 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 Discussed importance of in-hospital mobility to promote home-going and decreased chance of in-hospital complications such as DVTs and pneumonia. Patient also reports she will not go to a nursing facility and has a ride home today at 2 PM. THERAPY DIAGNOSIS Reduced mobility-other TREATMENT INTERVENTIONS Evaluation, Gait Training (37228) Timed Code Treatment (minutes): 8 Skilled Treatment Time (minutes): 23 TRAINING AND EDUCATION PROVIDED Anatomy and Impact on Deficits, Assistive Device Use, Bed Mobility, Benefits of In-Hospital Mobility, Discharge Planning, Expected Functional Level, Falls Prevention, Gait Pattern, Reduction of Deviations, Role of Physical Therapy, Sitting Balance, Standing Balance, Transfers, Treatment Protocol THERAPEUTIC SKILLS USED Activity Dosing, Cues for Sequencing/Proper Technique for Activity, Cuing Tactile, Cuing Verbal, Cuing Visual, Management of Critical Lines, Tubes and/or Drains, Muscle Activation Facilitation, Physical Assist, Postural Alignment Correction FUNCTIONAL STATUS Bed Mobility Supine To Sit: Additional Information, Stand By Assistance HOB elevated, use of handrail Sit to Supine: Additional Information OOB in bedside chair at session end however patient reports she prefers laying in bed. Scooting: Stand By Assistance Transfers Sit To Stand: Additional Information, Stand By Assistance X 3 trials Stand To Sit: Contact Guard Assistance Bed to Chair Gait Additional Information, Contact Guard Assistance Patient demonstrates reciprocating stepping pattern, reaching RUE for external support intermittently. No LOB Gait Device: None, Other: See Comment (gait belt) Gait Distance (feet): 1 X 40 Stairs GOALS Patient will demonstrate progress with functional mobility to allow saf (more content not included)... Normal [facility] THERAPY NT HNO ID: [id number] Author: CHANDLER AARIZA, PT Service: Physical Therapy Author Type: Physical Therapist Type: Therapy (PT/OT/Speech/Resp) Filed: 08/09/2024 09:07 Note Text: -------- Summary: PT MV -------- PHYSICAL THERAPY MISSED VISIT SERVICE DATE: 08/09/2024 SERVICE TIME: 0900 ROOM: [place] [address] Patient not seen due to Refused Treatment. Patient refuses PT this AM due to eating breakfast. Discussed importance of mobility for home-going, patient requesting PT return once she is finished with her breakfast. Of note - Patient s/p reverse total shoulder by Dr. Payton. Discussed with RN yesterday (08/08) that patient requires OT order for home-going, and only PT if indicated by gait instability. 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 Today (08/09) patient with remaining active PT order, and no OT order. Discussed with today's RN who addressed concerns with MD Britt, stating patient requires OT order to learn basic dressing/ADLs skills with unilateral extremity, however MD sophia Britt insists only PT, no OT for this patient. Patient with extended LOS due to inconsistencies in PT/OT orders/needs despite open communication between team members. Notes remain unclear why patient was admitted to hospital when intended to be same day ambulatory surgery. No WB orders have been entered for this patient despite multiple requests on 08/08, so this PT will assume NWB in sling for all activities to promote optimal patient safety/healing. SIGNATURE: Chandler Araiza PT PATIENT NAME: Dianne Alves DATE: August 09, 2024 TIME: 9:00 AM [facility] ANES POSTPROC EVALon 024 ANES POSTPROC EVAL HNO ID: [id number] Author: ISHAAN WALTERS MD Service: ? Author Type: Anesthesiologist Type: Anesthesia Postprocedure Evaluation Filed: 08/07/2024 16:46 Note Text: POST ANESTHESIA EVALUATION NOTE : 1955 Procedure Summary Date: 08/07/24 Room / Location: [place] [address] / [place] Anesthesia Start: 1251 Anesthesia Stop: 1422 Procedure: REVERSE TOTAL SHOULDER ARTHROPLASTY (Left: Shoulder) Diagnosis: Traumatic complete tear of left rotator cuff, initial encounter Primary osteoarthritis of left shoulder (Traumatic complete tear of left rotator cuff, initial encounter [S46.012A]) (Primary osteoarthritis of left shoulder [M19.012]) Surgeons: Dominick Payton MD Responsible Provider: Ishaan Walters MD Anesthesia Type: general ASA Status: 3 Anesthesia Type: general Airway Type: ETT Last Vitals Vitals Value Taken Time BP 143/74 08/07/24 1615 Temp 36.3 ?C (97.3 ?F) 08/07/24 1530 Pulse 81 08/07/24 1615 Resp 18 08/07/24 1615 SpO2 96 % 08/07/24 1615 Post Anesthesia Patient Status Patient Evaluation: bedside. Anticipated Disposition: inpatient floor planned admission. Neurological Status: sleepy but arousable. Pulmonary Status: breathing comfortably on room air Airway Control: returned to baseline unsupported. Cardiovascular Status: stable. Pain Management: clinically adequate Postoperative Hydration: acceptable. Intraoperative Events: no significant anesthesia events Post Operative Nausea/Vomiting Status: no significant post operative nausea or vomiting Recommendation: continue current plan of care and pain control. Anesthesia Observations No Documentation SIGNATURE: Ishaan Walters MD PATIENT NAME: Dianne Alves DATE: August 07, 2024 TIME: 4:46 PM CSN: [id number] [facility] ANES PRE-OPon 08-07-2024 ANES PRE-OP HNO ID: [id number] Author: ISHAAN WALTERS MD Service: ? Author Type: Anesthesiologist Type: Anesthesia Preprocedure Evaluation Filed: 08/07/2024 15:55 Note Text: ANESTHESIOLOGY DAY OF SURGERY NOTE : 1955 Procedure Information Anesthesia Start Date/Time: 08/07/24 1251 Procedure: REVERSE TOTAL SHOULDER ARTHROPLASTY (Left: Shoulder) Location: [place] [facility] [place] Surgeons: Dominick Payton MD Estimated body mass index is 34.4 kg/m? as calculated from the following: Height as of 07/29/24: 166.4 cm (5' 5.51). Weight as of 07/31/24: 95.3 kg (210 lb). Most recent hematocrit and potassium results: Hematocrit 44.6 07/22/2024 Potassium 4.3 07/22/2024 Relevant Problems CARDIO (+) Essential hypertension (+) PAD (peripheral artery disease) (HCC) (+) Pulmonary hypertension (HCC) ENDO (+) Hyperthyroidism -RENAL (+) Chronic hepatitis C without hepatic coma (HCC) NEURO-PSYCH (+) H/O: substance abuse (HCC) (+) History of deep venous thrombosis PULMONARY (+) COPD (chronic obstructive pulmonary disease) (HCC) (+) SOB (shortness of breath) I - PHYSICAL EVALUATION AIRWAY Patient intubated: No. Tracheostomy tube not present Mallampati: II. TM distance: >3 FB. Neck ROM: full ROM without neurological symptoms. Mouth opening: adequate. Short neck: no. Thick neck: no DENTAL Dental findings: missing tooth/teeth and poor dentition. Additional exam findings: yes. CARDIOVASCULAR Rhythm: regular Rate: normal PULMONARY Decreased breath sound: decreased breath sounds present. II - ANESTHESIA PLAN ASA Score: 3 Anesthetic Plan: general Airway type: ETT The patient is not a current smoker. NPO Status: adequate Beta Chastity Administration of chronic beta chastity medication planned. Monitoring Plan Monitoring plan: standard ASA. Post Procedure Analgesic Plan Postoperative analgesic plan: multimodal analgesia. Informed Consent Anesthetic risks, benefits, alternatives, personnel and consent discussed: yes. Patient / Responsible Democrat agrees to proceed: yes Patient / Surrogate agrees to blood products: Yes DNR status not reviewed with patient and/or family prior to surgery. Significant changes in the patient condition since the History and Physical, not otherwise documented in primary service progress note: no. Potential Anesthesia issues that may suggest increased risk of complications or contraindication to planned procedure: none. Vitals Value Taken Time BP 144/84 08/07/24 1230 Pulse 76 08/07/24 1229 Resp 28 08/07/24 1229 Temp 36.3 ?C (97.3 ?F) 08/07/24 1035 SpO2 75 % 08/07/24 1229 Vitals shown include unfiled device data. Facility-Administered Medications as of 08/07/2024 Medication Dose Route Frequency [COMPLETED] acetaminophen 650 mg tab(s) (TYLENOL) 650 mg ORAL Pre-Op Once [COMPLETED] midazolam (PF) 2 mg injection (VERSED) 2 mg INTRAVENOUS Pre-Op Once [COMPLETED] promethazine 12.5 mg tab(s) (PHENERGAN) 12.5 mg ORAL Pre-Op Once lactated ringers iv infusion 50 mL/hr INTRAVENOUS CONTINUOUS [COMPLETED] fentaNYL 50 mcg/mL 50 mcg injection (SUBLIMAZE) 50 mcg INTRAVENOUS q 10 MIN PRN HYDROmorphone 0.2 mg injection (DILAUDID) 0.2 mg INTRAVENOUS q 5 MIN PRN ondansetron orally disintegrating 4 mg tab(s) (ZOFRAN ODT) 4 mg ORAL q 6 H PRN Or ondansetron (PF) 4 mg injection (ZOFRAN) 4 mg INTRAVENOUS q 6 H PRN scopolamine (delivers 1 mg over 3 days) 1 Patch (TRANSDERM-SCOP) 1 Patch TRANSDERMAL PRN And scopolamine - VERIFY patch OTHER q 8 H And [START ON 08/08/2024] scopolamine - REMOVE PATCH OTHER ONCE oxyCODONE IR 5 mg tab(s) (ROXICODONE) 5 mg ORAL PRN Outpatient Medications as of 08/07/2024 Medication Sig lisinopril (ZESTRIL) 30 mg tablet Take 1 tablet by mouth once daily. methIMAzole (TAPAZOLE) 5 mg tablet Take 1 tablet by mouth once daily. OXYGEN, HOME THERAPY, Inhale 2-4 L/min as instructed continuous. Blood Pressure Monitor (BLOOD PRESSURE KIT) 1 Each once daily. Incontinence Pad, Liner, Disp pads 2-3x daily for urge incontinence Spirometers and Accessories deidre Patient needs an inspiratory spirometer oxyCODONE-acetaminophen (PERCOCET) 5-325 mg tablet Take 1-2 tablets by mouth every 4 hours as needed for pain for up to 3 days. docusate sodium (COLACE) 100 mg capsule Take 1 capsule by mouth two times a day. ondansetron (ZOFRAN) 4 mg tablet Take 1 tablet by mouth every 8 hours as needed for nausea/vomiting. GAVILYTE-G 236-22.74-6.74 -5.86 gram suspension Take 4,000 mL by mouth one time only. Refer to printed prep instructions from your provider (Patient not taking: Reported on 07/29/2024) diclofenac (VOLTAREN) 1 % topical gel Apply 2 g to affected area two times a day. Nebulizer Accessories kit 1 Each three times a day as needed. Nebulizer and Compressor For Neb 1 Each once daily. MEDICAL SUPPLY Hand rails- for the shower and rest room atorvastatin (LIPITOR) 40 mg tablet Take 1 tablet by mouth once bobby (more content not included)... Normal [facility] CONSULTon 08-07-2024 CONSULT HNO ID: [id number] Author: TALON BRITT MD Service: General Internal Medicine Author Type: Physician Type: Consults Filed: 08/09/2024 11:03 Note Text: [facility]- Consultation DIANNE ALVES Indu : 1955 AGE: 69 SEX: F ACCTNUM: [id number] [facility]: Surgical LOCATION: [facility] ATTENDING PHYSICIAN: DOMINICK PAYTON DATE OF SERVICE: 08/07/2024 TIME OF SERVICE: 04:22 PM REASON FOR CONSULTATION: Postop medical. HISTORY: 69-year-old female whose significant medical history includes osteoarthritis; hyperthyroidism; prediabetic; peripheral arterial disease, status post stent placement; provoked DVT in 2014; depression; cervical spondylosis; chronic hep C without any complication; COPD; chronic hypoxic respiratory failure, she is on 2 to 3 L oxygen at home; pulmonary hypertension; chronic diastolic congestive heart failure; hyperlipidemia; hypertension. Patient underwent elective left reverse shoulder arthroplasty under general anesthesia. Patient had uneventful intraoperative course. Estimated blood loss 50 mL. Currently, she is having some pain. Otherwise, no nausea, vomiting, lightheadedness, dizziness. No chest pain. PAST MEDICAL HISTORY: As mentioned above. PAST SURGICAL HISTORY: Includes ORIF of the left wrist, shoulder surgery, angiogram, and wrist surgery. FAMILY HISTORY: Father had alcohol issues. Mother had hypertension. SOCIAL HISTORY: She quit smoking in 2021. She smoked less than half pack for 52 years. She does not drink alcohol. MEDICATIONS: Current home medication list reviewed. ALLERGIES: She has no known drug allergies. REVIEW OF SYSTEMS: HEENT/Neck: She has no history of glaucoma. No history of TIA or CVA. No history of seizure disorder. No history of dysphagia or odynophagia. History of COPD with mild dyspnea with exertion. History of home oxygen. No recent pulmonary infection. No history of obstructive sleep apnea. History of pulmonary hypertension. No history of coronary artery disease. History of diastolic congestive heart failure, provoked DVTs, hypertension, hyperlipidemia, peripheral vascular disease. No history of bleeding, peptic ulcer, hepatitis, colitis. Good appetite. Regular bowel movement. Does have GERD and hep C positive. No melenic stools. No history of chronic dysuria, hematuria. Does have history of CKD; however, her last creatinine was 0.97, suspect a stage 2. No recent urinary tract infection. Some urinary incontinence. No history of diabetes. She has hyperthyroidism. History of provoked DVTs. No paresthesia of feet. . History of chronic back pain, neck pain. PHYSICAL EXAM: General: Elderly female. The patient is alert. HEENT: Sclerae anicteric. Oral mucosa dry. Neck: No thyromegaly appreciated. No carotid bruit. Lungs: Clear to auscultation bilaterally. No wheezing present. Cardiovascular: S1, S2. Regular rhythm. Unable to appreciate murmur, gallop, rub. Abdomen: Soft, nontender, nondistended. Bowel sounds present. Lower Extremities: No ankle edema noted. IMPRESSION: 1. Osteoarthritis, status post Left reverse shoulder arthroplasty. 2. Hyperlipidemia. Continue statins. 3. Chronic diastolic congestive heart failure. Continue Lasix. 4. Hypertension. Continue lisinopril. 6. Gastroesophageal reflux disease. Continue pantoprazole. 7. History of provoked deep vein thromboses. 8. Chronic obstructive pulmonary disease. Continue bronchodilators. 9. Suspect chronic kidney disease stage 2. Avoid nephrotoxic drugs. Thank you very much for kind referral. Continue to follow her while she is in the hospital. Talon Britt M.D. Internal Medicine SKJ:[id number] [facility] HISTORY PHYSICALon HISTORY PHYSICAL HNO ID: [id number] Author: DOMINICK PAYTON MD Service: Orthopaedic Surgery Author Type: Physician Type: H&P Filed: 08/07/2024 12:48 Note Text: UPDATED HISTORY AND PHYSICAL EXAMINATION SERVICE DATE: 08/07/2024 SERVICE TIME: 12:48 PM SENSITIVE EXAMINATION CONSENT: The sensitive examination was discussed with the Patient or Patient's Authorized Director Perioperative. As applicable, any other physician, advance practice provider, medical student, or other health professional student that will be observing or involved in the sensitive examination for educational or training purposes was discussed with the Patient or Authorized Director Perioperative. The Patient or Authorized Director Perioperative has agreed to proceed with the sensitive examination. (Sensitive examination includes inspection and/or palpation of the breasts, pelvis, prostate and anorectal regions) PHYSICAL EXAM MUST BE COMPLETED ON ADMISSION The History and Physical (completed in the past 30 days) has been reviewed and the patient has been examined. The contents accurately reflect the patient's condition with the following additions or revisions since the HANDP was completed. Examination indicates no changes. This HANDP can be found in the Electronic Medical Record dated 07/22/24. SIGNATURE: Dominick Payton MD PATIENT NAME: Dianne Alves DATE: August 07, 2024 TIME: 12:48 PM [facility] NURSING PROGon 08-07-2024 NURSING PROG HNO ID: [id number] Author: GIA BOB RN Service: Nursing Author Type: Registered Nurse Type: Nursing Progress Note Filed: 08/07/2024 12:30 Note Text: Dr. Walters at bedside for Left interscalene nerve block. RN at bedside, pt monitored throughout, BP 152/80 Pulse 77 Temp 36.3 ?C (97.3 ?F) (Temporal Artery) Resp 18 SpO2 95% .Pt tolerated procedure without difficulty. 2mg versed given after sign in. [facility] OPERATIVE NOon 08-07-2024 OPERATIVE NO HNO ID: [id number] Author: DOMINICK PAYTON MD Service: Orthopaedic Surgery Author Type: Physician Type: Operative Report Filed: 08/07/2024 16:00 Note Text: OPERATIVE/PROCEDURE REPORT LOG ID: [id number] SURGERY/PROCEDURE DATE: 08/07/2024 INCISION/PROCEDURE START TIME: 1:23 PM INCISION CLOSE/PROCEDURE END TIME: 2:13 PM SURGEON(S)/PROCEDURALIST (S) AND SUPERINTENDENT TRACK(S): Surgeons and Role: * Dominick Payton MD - Primary Physician Law Writer: Ana Holder PA-C; Yue Franks PA-C SURGERY/PROCEDURE(S): Left reverse total shoulder arthroplasty ANESTHESIA: General SURGERY/PROCEDURE DETAILS: Dianne Alves is a 69 year old woman who presented with persistent pain and shoulder weakness due to failure of a previous rotator cuff repair. I offered reverse total shoulder arthroplasty for the purposes of pain relief and improved function of the shoulder. The risks, benefits, and alternatives to the procedure were discussed in detail in the office prior to scheduling surgery, and the patient expressed agreement and understanding with the plan. The patient was greeted in the preoperative holding area and identified by name and date of . Preoperative nerve block was administered. A preoperative meeting was held between the patient, myself, and other personnel that would be participating in surgery, and all were in agreement that left reverse total shoulder arthroplasty was the intended procedure. The left shoulder was marked as the operative site. The patient was taken to the operating room and transferred to the operating table in the supine position. General anesthesia was induced with endotracheal intubation. The patient was placed in the beach chair position with bilateral lower extremities padded and bilateral lower extremity sequential compression devices were applied. Intravenous antibiotic was given. The shoulder and upper extremity were prepped and draped in a sterile fashion. Time out was performed to confirm the correct patient, procedure, and operative site, and all were in agreement [...] The humeral metaphysis was reamed using the hum[employer]one[employer]P [employer] reamer. Then the canal was sized and [...] placed and (more content not included)... Normal [facility] XR SHOULDER SPECIFY 1V LTon 08-07-2024 XR [...] as discussed in results portion of report Drill Runner: VINCENT Transcribe Date/Time: Aug 07 2024 4:37P Dictated by : GELA CAMARGO DO This examination was interpreted and the report reviewed and electronically signed by: GELA CAMARGO DO on Aug 07 2024 4:38PM EST [id number] Normal [facility] CNOVon 07-31-2024 CNOV Normal [facility] ECG COMPLETEon 07-31-2024 ECG COMPLETE Normal [facility] CNOVon 07-29-2024 CNOV Normal [facility] CNPNon 07-27-2024 CNPN Normal [facility] CNPTOUTREACHon 07-24-2024 CNPTOUTREACH Normal [facility] CBC W Auto Differential pane l (Bld)on 07-22-2024 Basophils (Bld) [#/Vol] 0.04 10*3/uL Normal <0.11 [facility] Comment on above: Order Comment: Speci men Type: BLOOD SPECIMENOrdering Facility: [facility] Address: [address] [place] [address] Performed By: #### 5 7021-8 ####[facility] [id number] [place] [address] [place] Basophils/100 WBC (Bld) 0.7 % Normal [facility] Comment on above: Order Comment: Speci men Type: BLOOD SPECIMENOrdering Facility: [facility] Address: [address] [place] [address] Performed By: #### 5 7021-8 ####[facility]NL[facility] [id number] [place] [address] [place] Differential cell count method Nom (Bld) Auto Normal [facility] Comment on above: Order Comment: Speci men Type: BLOOD SPECIMENOrdering Facility: [facility] Address: [address] [place] [address] Performed By: #### 5 7021-8 ####[facility] [id number] [place] [address] [place] Eosinophils (Bld) [#/Vol] 0.18 10*3/uL Normal <0.46 [facility] Comment on above: Order Comment: Speci men Type: BLOOD SPECIMENOrdering Facility: [facility] Address: [address] [place] [address] Performed By: #### 5 7021-8 ####[facility] [id number] [place] [address] [place] Eosinophils/100 WBC (Bld) 3.3 % Normal [facility] Comment on above: Order Comment: Speci men Type: BLOOD SPECIMENOrdering Facility: [facility] Address: [address] [place] [address] Performed By: #### 5 7021-8 ####[facility] [id number] [place] [address] [place] Erythrocyte distribution width (RBC) [Ratio] 14.9 % Normal 11.5-15.0 [facility] Comment on above: Order Comment: Speci men Type: BLOOD SPECIMENOrdering Facility: [facility] Address: [address] [place] [address] Performed By: #### 5 7021-8 ####[facility]WNCL[facility] [id number] [place] [address] [place] Hematocrit (Bld) [Volume fraction] 44.6 % Normal 36.0-46.0 [facility] Comment on above: Order Comment: Speci men Type: BLOOD SPECIMENOrdering Facility: [facility] Address: [address] [place] [address] Performed By: #### 5 7021-8 ####[facility] [id number] [place] [address] [place] Hemoglobin (Bld) [Mass/Vol] 14.6 g/dL Normal 11.5-15.5 [facility] Comment on above: Order Comment: Speci men Type: BLOOD SPECIMENOrdering Facility: [facility] Address: [address] [place] [address] Performed By: #### 5 7021-8 ####[facility] [id number] [place] [address] [place] Immature granulocytes (Bld) [#/Vol] 10*3/uL Normal <0.10 [facility] Comment on above: Order Comment: Speci men Type: BLOOD SPECIMENOrdering Facility: [facility] Address: [address] [place] [address] Performed By: #### 5 7021-8 ####[facility] [id number] [address] [place] Immature granulocytes/100 WBC (Bld) 0.0 % Normal [facility] [facility] Comment on above: Order Comment: Speci men Type: BLOOD SPECIMENOrdering Facility: [facility] Address: [address] [place] [address] Performed By: #### 5 7021-8 ####[facility]ITALNCLIA [id number] [place] [address] [place] Lymphocytes (Bld) [#/Vol] 1.64 10*3/uL Normal 1.00-4.00 [facility] Comment on above: Order Comment: Speci men Type: BLOOD SPECIMENOrdering Facility: [facility] Address: [address] [place] [address] Performed By: #### 5 7021-8 ####[facility] [id number] [place] [address] [place] Lymphocytes/100 WBC (Bld) 30.4 % Normal [facility] Comment on above: Order Comment: Speci men Type: BLOOD SPECIMENOrdering Facility: [facility] Address: [address] [place] [address] Performed By: #### 5 7021-8 ####[facility]ITALNCGAR[facility] [id number] [place] [address] [place] MCH (RBC) [Entitic mass] 29.6 pg Normal 26.0-34.0 [facility] Comment on above: Order Comment: Speci men Type: BLOOD SPECIMENOrdering Facility: [facility] Address: [address] [place] [address] Performed By: #### 5 7021-8 ####[facility] [id number] [place] [address] [place] MCHC (RBC) [Mass/Vol] 32.7 g/dL Normal 30.5-36.0 [facility] Comment on above: Order Comment: Speci men Type: BLOOD SPECIMENOrdering Facility: [facility] Address: [address] [place] [address] Performed By: #### 5 7021-8 ####[facility] HOSPITALNCLI [id number] [place] [address] [place] MCV (RBC) [Entitic vol] 90.5 fL Normal 80.0-100.0 [facility] Comment on above: Order Comment: Speci men Type: BLOOD SPECIMENOrdering Facility: [facility] Address: [address] [place] [address] Performed By: #### 5 7021-8 ####[facility] TASHBEVERLY [id number] [place] [address] [place] Monocytes (Bld) [#/Vol] 0.27 10*3/uL Normal <0.87 [facility] Comment on above: Order Comment: Speci men Type: BLOOD SPECIMENOrdering Facility: [facility] Address: [address] [place] [address] Performed By: #### 5 7021-8 ####[facility] HOSPITALKARYNA [id number] [place] [address] [place] Monocytes/100 WBC (Bld) 5.0 % Normal [facility] Comment on above: Order Comment: Speci men Type: BLOOD SPECIMENOrdering Facility: [facility] Address: [address] [place] [address] Performed By: #### 5 7021-8 ####[facility] HOSPITALNCA [id number] [place] [address] [place] Neutrophils (Bld) [#/Vol] 3.26 10*3/uL Normal 1.45-7.50 [facility] Comment on above: Order Comment: Speci men Type: BLOOD SPECIMENOrdering Facility: [facility] Address: [address] [place] [address] Performed By: #### 5 7021-8 ####[facility] HOSPITALNCLIA [id number] [place] [address] [place] Neutrophils/100 WBC (Bld) 60.6 % Normal [facility] Comment on above: Order Comment: Speci men Type: BLOOD SPECIMENOrdering Facility: [facility] Address: [address] [place] [address] Performed By: #### 5 7021-8 ####[facility] HOSPITALWKARYNLIA [id number] [place] [address] [place] Nucleated RBC (Bld) [#/Vol] 10*3/uL Normal <0.01 [facility] Comment on above: Order Comment: Speci men Type: BLOOD SPECIMENOrdering Facility: [facility] Address: [address] [place] [address] Performed By: #### 5 7021-8 ####[facility]ITALLIA [id number] [place] [address] [place] Nucleated RBC/100 WBC (Bld) [Ratio] 0.0 /100 WBC Normal [facility] Comment on above: Order Comment: Speci men Type: BLOOD SPECIMENOrdering Facility: [facility] Address: [address] [place] [address] Performed By: #### 5 7021-8 ####[facility]OSPITALNCGARFIELD [facility] [id number] [place] [address] [place] Platelet mean volume (Bld) [Entitic vol] 10.4 fL Normal 9.0-12.7 [facility] Comment on above: Order Comment: Speci men Type: BLOOD SPECIMENOrdering Facility: [facility] Address: [address] [place] [address] Performed By: #### 5 7021-8 ####[facility] HOSPITALLIA [id number] [place] [address] [place] Platelets (Bld) [#/Vol] 236 10*3/uL Normal 150-400 [facility] Comment on above: Order Comment: Speci men Type: BLOOD SPECIMENOrdering Facility: [facility] Address: [address] [place] [address] Performed By: #### 5 7021-8 ####[facility] HOSPITALNCLIA [id number] [place] [address] [place] RBC (Bld) [#/Vol] 4.93 10*6/uL Normal 3.90-5.20 [facility] Comment on above: Order Comment: Speci men Type: BLOOD SPECIMENOrdering Facility: [facility] Address: [address] [place] [address] Performed By: #### 5 7021-8 ####[facility] SOUTHSIDEMorgan [id number] [place] [address] [place] WBC (Bld) [#/Vol] 5.39 10*3/uL Normal 3.70-11.00 [facility] Comment on above: Order Comment: Speci men Type: BLOOD SPECIMENOrdering Facility: [facility] Address: [address] [place] [address] Performed By: #### 5 7021-8 ####[facility] [id number] [place] [address] [place] Comprehensive metabolic 2000 panelon 07-22-2024 Albumin [Mass/Vol] 4.3 g/dL Normal 3.9-4.9 [facility] Comment on above: Order Comment: Speci men Type: BLOOD SPECIMENOrdering Facility: [facility] Address: [address] [place] [address] Performed By: #### 2 4323-8 ####[facility] LABCLIA [id number] [place] [address] [place] ALP [Catalytic activity/Vol] 87 U/L Normal 34-123 [facility] Comment on above: Order Comment: Speci men Type: BLOOD SPECIMENOrdering Facility: [facility] Address: [address] [place] [address] Performed By: #### 2 4323-8 ####[facility] LABCLIA [id number] [place] [address] [place] ALT [Catalytic activity/Vol] 10 U/L Normal 7-38 [facility] Comment on above: Order Comment: Speci men Type: BLOOD SPECIMENOrdering Facility: [facility] Address: [address] [place] [address] Performed By: #### 2 4323-8 ####[facility] LABCLIA [id number] [place] [id number] [place] Anion gap [Moles/Vol] 13 mmol/L Normal 8-15 [facility] Comment on above: Order Comment: Speci men Type: BLOOD SPECIMENOrdering Facility: [facility] Address: [address] [place] [address] Performed By: #### 2 4323-8 ####[facility] LABCLIA [id number] [place] [address] [place] AST [Catalytic activity/Vol] 18 U/L Normal 13-35 [facility] Comment on above: Order Comment: Speci men Type: BLOOD SPECIMENOrdering Facility: [facility] Address: [address] [place] [address] Performed By: #### 2 4323-8 ####[facility] LABCLIA [id number] [place] [address] [place] Bilirubin [Mass/Vol] 0.5 mg/dL Normal 0.2-1.3 [facility] Comment on above: Order Comment: Speci men Type: BLOOD SPECIMENOrdering Facility: [facility] Address: [address] [place] [address] Performed By: #### 2 4323-8 ####[facility] LABCLIA [id number] [place] [address] [place] Calcium [Mass/Vol] 10.0 mg/dL Normal 8.5-10.2 [facility] Comment on above: Order Comment: Speci men Type: BLOOD SPECIMENOrdering Facility: [facility] Address: [address] [place] [address] Performed By: #### 2 4323-8 ####[facility] LABCLIA [id number] [place] [address] [place] Chloride [Moles/Vol] 103 mmol/L Normal 98-107 [facility] Comment on above: Order Comment: Speci men Type: BLOOD SPECIMENOrdering Facility: [facility] Address: [address] [place] [address] Performed By: #### 2 4323-8 ####[facility] LABCLIA [id number] [place] [address] [place] CO2 [Moles/Vol] 23 mmol/L Normal 22-30 [facility] Comment on above: Order Comment: Speci men Type: BLOOD SPECIMENOrdering Facility: [facility] Address: [address] [place] [address] Performed By: #### 2 4323-8 ####[facility] LABIA [id number] [place] [address] [place] Creatinine [Mass/Vol] 0.97 mg/dL High 0.58-0.96 [facility] Comment on above: Order Comment: Speci men Type: BLOOD SPECIMENOrdering Facility: [facility] Address: [address] [place] [address] Performed By: #### 2 4323-8 ####[facility] LABIA [id number] [address] [place] Creatinine and Glomerular filtration rate.predicted panel (S/P/Bld) 64 mL/min/1.73m??? Normal >=60 [facility] Comment on above: Order Comment: Speci men Type: BLOOD SPECIMENOrdering Facility: [facility] Address: [address] [place] [address] Result Comment: Sigrid mated Glomerular Filtration Rate [...] actual GFR. Performed By: #### 2 4323-8 ####[facility] LABIA [id number] [place] [address] [place] Glucose [Mass/Vol] 118 mg/dL High 74-99 [facility] Comment on above: Order Comment: Jalen men Type: BLOOD SPECIMENOrdering Facility: [facility] Address: [address] [place] [address] Result Comment: The [place] [employer] (ADA) provides guidance for cutoff [...] Standards of Medical Care in Diabetes 2016, [place] [employer]. Diabetes Care. 2016.39(Suppl 1). Performed By: #### 2 4323-8 ####[facility] LABIA [id number] [place] [address] [place] Potassium [Moles/Vol] 4.3 mmol/L Normal 3.7-5.1 [facility] Comment on above: Order Comment: Wmi men Type: BLOOD SPECIMENOrdering Facility: [facility] Address: [address] [place] [address] Performed By: #### 2 4323-8 ####[facility] LABIA [id number] [place] [address] [place] Protein [Mass/Vol] 7.1 g/dL Normal 6.3-8.0 [facility] Comment on above: Order Comment: Jalen men Type: BLOOD SPECIMENOrdering Facility: [facility] Address: [address] [place] [address] Performed By: #### 2 4323-8 ####[facility] LABCLIA [id number] [place] [address] [place] Sodium [Moles/Vol] 139 mmol/L Normal 136-144 [facility] Comment on above: Order Comment: Speci men Type: BLOOD SPECIMENOrdering Facility: [facility] Address: [address] [place] [address] Performed By: #### 2 4323-8 ####[facility] LABCLIA [id number] [place] [address] [place] Urea nitrogen [Mass/Vol] 14 mg/dL Normal 7-21 [facility] Comment on above: Order Comment: Speci men Type: BLOOD SPECIMENOrdering Facility: [facility] Address: [address] [place] [address] Performed By: #### 2 4323-8 ####[facility] LABCLIA [id number] [place] [address] [place] HISTORY PHYSICALon HISTORY PHYSICAL Normal [facility] T3 SerPl-mCncon 07-22-2024 T3 [Mass/Vol] 95 ng/dL Normal 79-165 [facility] Comment on above: Order Comment: Speci men Type: BLOOD SPECIMENOrdering Facility: [facility] Address: [address] [place] [address] Performed By: #### 3 024-7, 3053-6, 3016-3 ####[facility] LABIA [id number] [place] [address] [place] T4 Free SerPl-mCncon 024 Free T4 [Mass/Vol] 1.3 ng/dL Normal 0.9-1.7 [facility] Comment on above: Order Comment: Speci men Type: BLOOD SPECIMENOrdering Facility: [facility] Address: [address] [place] [address] Performed By: #### 3 024-7, 3053-6, 3016-3 ####[facility] LABCLIA [id number] [place] [address] [place] TSH SerPl-aCncon 07-22-2024 TSH Qn 0.183 m[IU]/L Low 0.270-4.200 [facility] Comment on above: Order Comment: Speci men Type: BLOOD SPECIMENOrdering Facility: [facility] Address: [address] [place] [address] Performed By: #### 3 024-7, 3053-6, 3016-3 ####[facility] LABCLIA [id number] [address] [place] CNOVon 07-21-2024 CNOV Normal [facility] PVR ANK PRESS ARTEM VAS LABon 07-21-2024 PVR ANK PRESS ARTEM VAS LAB Normal [facility] CNCOon 06-24-2024 CNCO Letter Text Normal [facility] CNOVon 06-23-2024 CNOV Office Visit (AGHWW1 ) -------- DIANNE ALVES ([id number]) 1955 F Date Time Provider Department 06/23/24 11:30 AM DOMINICK PAYTON AGHWW1 During your visit today, we recorded the following information about you: Respiration Weight Height 18/minute 97.5 kg 1.676 m Dominick aPyton MD 06/24/2024 10:47 AM Signed PAIN EVALUATION [...] AND Elbow Surgeon Department of Orthopaedic Surgery [facility] Referring Provider: SELF [200] Allergies As [...] g to (more content not included)... Normal [facility] Colonoscopy Reporton 024 Colonoscopy Report [facility] Medical Records Department [address] [place] [address] Colonoscopy Report MR#: [id number] Acct: [id number] Name: DIANNE ALVES Rep #: [id number] : 1955 69 From: Stef Friend DO PCP: Dr. Leonie Peterson MD Status:[facility] Patient Name: Dianne Alves Procedure Date: 04/29/2024 [...] for surveillance. Procedure Code(s): --- Professional --- 51618, Colonoscopy, flexible; with removal of tumor(s), polyp(s), or other lesion(s) by snare technique 30277, 59, Colonoscopy, flexible; with biopsy, single or multiple CPT copyright 2021 [employer]. All rights reserved. The codes documented in this report are preliminary and upon coder operator review may be revised to meet current compliance requirements. Stef Bennett DO 04/29/2024 11:15:46 AM This report has been signed electronically. Number of Addenda: 0 Note Initiated On: (more content not included)... Normal [facility] MR/POSTOP.Jay Jay 04-29-2024 MR/POSTOP.[facility] Medical Records Department [address] [place] [address] Anesthesia Postop Eval I 04/29/24 1115 MR#: [id number] Acct: [id number] Name: DIANNE ALVES Rep #: [id number] : 1955 69 From: Juancarlos Bernardo PCP: Dr. Leonie Peterson MD Status:REG SDC Y Race: AA Location: [place] [address] Anesthesia: Postop Eval I Current Vital Signs [...] 1 completed: Yes 04/29/24 1116 Date Juancarlos Quinn Signature: Date CC: Signed Normal [facility] MR/PDHUMLOP6hg 04-29-2024 /[facility] Medical Records Department [address] [place] [address] Anesthesia Postop Eval II 04/29/24 1143 MR#: [id number] Acct: [id number] Name: DIANNE ALVES Rep #: [id number] : 1955 69 From: Robert Smith MD PCP: Dr. Leonie Peterson MD Status:REG [facility] Y Race: AA Location: [place] [address] Anesthesia Postop Eval I Sum Postop Eval [...] Robert Quinn Signature: Date CC: Signed Normal [facility] Surgery Specimen Level Keren 04-29-2024 Surgery Specimen Level IV Patient Age/Sex Location Account Attending Physician DIANNE ALVES 69/F EN [id number] Stef Bennett DO Specimen: [id number] Received: 04/29/24 Status: GREGORY Saldaña Num: [id number] Spec Type: COLON BX Subm Dr: Stef Bennett, DO HEADER OPERATION: Colonoscopy, polypectomy, clip, biopsy PRE-OP DIAGNOSIS: Encounter for screening for malignant neoplasm of colon TISSUE SUBMITTED: A- Hepatic flexure polyp, B- Transverse colon polyp biopsy, C- Sigmoid colon polyp MICROSCOPIC DIAGNOSIS A. Colonic polyp at hepatic flexure, biopsy: Fragments of tubular adenoma. B. Transverse colon polyp, biopsy: Fragments of tubular adenoma. C. Sigmoid colon polyp, biopsy: Tubular adenoma. AM/ 04/30/2024 MICROSCOPIC DESCRIPTION Slides are reviewed. GROSS [...] bisected and totally submitted in one cassette. AM/ 04/29/2024 TC:5 AM/ 04/29/2024 TC: CPT:28012z8 Patient Age/Sex Location Account Attending Physician DIANNE ALVES 69/F EN [id number] Stef Bennett DO Signed (signature on file) Dr. Chencho Barrientos DO 04/30/[address] [facility] Comment on above: Performed By: #### P SABINE ####[facility] [address] [place], [place], [id number] Chema 03-24-2024 CNOV Office Visit (AGHWW1 ) -------- LONGDIANNE CASTREJON ([id number]) 1955 F Date Time Provider Department 03/24/24 10:45 AM DOMINICK PAYTON AGHWW1 During your visit today, we recorded the following information about you: Respiration Weight Height 18/minute 97.1 kg 1.676 m Lynne Peña LPN 03/24/2024 10:56 AM Signed Injection [...] AND Elbow Surgeon Department of Orthopaedic Surgery [facility] Referring Provider: SELF [200] Allergies As of Date: 03/24/2024 (No Known Allergies) Date Reviewed: 03/24/2024 Reviewed by: Lynne Peña LPN - Fully Assessed Reason for Visit: Follow Up [171] Pain [78] Injections [199] Primary Visit Diagnosis:Left shoulder pain, unspecified chronicity [M25.512] Other Visit Diagnosis:Failure of rotator cuff repair [M96.89] Order(s):Large Joint Arthro/Inj: L shoulder joint [DOH170] Order #: [id number] [] bupivacaine (PF) 0.25 % (2.5 mg/mL) [...] pads 2-3x daily for urge incontinence - gwrrcktgbt-qknhdbsi-jspm oterol (BREZTRI) 160-9-4.8 mcg/actuation HFA aerosol inhaler [...] without sciatic*05/03/2021 (more content not included)... Normal [facility] CNOVon 12-17-2023 CNOV Office Visit (AGHWW1 ) -------- DIANNE ALVES ([id number]) 1955 F Date Time Provider Department 12/17/23 10:45 AM DOMINICK PAYTON AGHWW1 During your visit today, we recorded the following information about you: Respiration Weight Height 16/minute 98.4 kg 1.676 m Shady Tamayo Tech 12/17/2023 10:50 AM Signed REVIEW OF SYSTEMS: [...] AND Elbow Surgeon Department of Orthopaedic Surgery [facility] Allergies As of Date: 12/17/2023 (No Known Allergies) Date Reviewed: 12/17/2023 Reviewed by: Shady Tamayo Tech - Fully Assessed Reason for Visit: Follow Up [171] Primary Visit Diagnosis:Failure of rotator cuff repair [M96.89] Other Visit Diagnosis:Left shoulder pain, unspecified chronicity [M25.512] Order(s):Large Joint Arthro/Inj: L shoulder joint [YZO306] Order #: [id number] [] bupivacaine (PF) 0.25 % (2.5 mg/mL) [...] mouth once daily. Take with food. - thowqfdxxi-biconyyg-cbyo oterol (BREZTRI) 160-9-4.8 mcg/actuation HFA aerosol inhaler [...] Weakness [R53. (more content not included)... Normal [facility] Absolute lymphocyte countOrd ered By: Debbie Delgadillo on 11-21-2023 Lymphocytes Auto (Unsp spec) [#/Vol] 2.03 10*3/uL 0.83-4.51 [facility] Automated lymphocyte count a s percentage of total leukocytesOrdered By: Debbie Delgadillo on 11-21-2023 Lymphocytes/100 WBC Auto (Unsp spec) 26.8 % 19-41 [facility] Basophil percentageOrdered B y: Debbie Delgadillo on 11-21-2023 Basophil percentage 0-5 SEEN /hpf 0-5 [facility] Basophils/100 WBC (Bld) 0.5 % 0-1 [facility] Bilirubin [Mass/Vol] 0.70 mg/dL 0.20-1.00 [facility] Comment on above: For patients on eltr ombopag therapy, use of Dimension [place] TBIL is not recommended. Chloride [Moles/Vol] 112 mmol/L 98-107 [facility] Eosinophils/100 WBC (Bld) 0.5 % 0-5 [facility] Glucose [Mass/Vol] 97 mg/dL 74-106 [facility] Hemoglobin (Bld) [Mass/Vol] 15.8 g/dL 12.0-15.0 [facility] Monocytes/100 WBC (Bld) 7.3 % 0-10 [facility] Neutrophils (Bld) [#/Vol] 4.9 10*3/uL 2.0-7.7 [facility] Neutrophils/100 WBC (Bld) 64.6 % 47-70 [facility] Potassium [Moles/Vol] 4.0 mmol/L 3.5-5.1 [facility] Comment on above: Slight Hemolysis, Re sult may be falsely increased. Protein [Mass/Vol] 7.4 g/dL 6.4-8.2 [facility] Sodium [Moles/Vol] 138 mmol/L 136-145 [facility] WBC (Bld) [#/Vol] 7.6 10*3/uL 4.4-11.0 [facility] Bilirubin Test strip Ql (U)O rdered By: Debbie Delgadillo on 11-21-2023 Bilirubin Ql (U) Negative Negative [facility] Determination of erythrocyte mean corpuscular volume (MCV)Ordered By: Debbie Delgadillo on 11-21-2023 MCV (RBC) [Entitic vol] 88.4 fL 81-99 [facility] Direct bilirubinOrdered By: Debbie Delgadillo on 11-21-2023 Bilirubin.direct [Mass/Vol] 0.14 mg/dL 0.00-0.30 [facility] Erythrocyte distribution wid th ratioOrdered By: Debbie Delgadillo on 11-21-2023 Erythrocyte distribution width (RBC) [Ratio] 13.3 % 11.6-14.6 [facility] Erythrocyte distribution wid th standard deviationOrdered By: Debbie Delgadillo on 11-21-2023 Erythrocyte distribution width (RBC) [Entitic vol] 43.2 fL 35.1-43.9 [facility] Hematocrit Auto (Bld) [Volum e fraction]Ordered By: Debbie Delgadillo on 11-21-2023 Hematocrit (Bld) [Volume fraction] 49.6 % 37-47 [facility] Immature granulocytes/100 WB C Auto (Bld)Ordered By: Debbie Delgadillo on 11-21-2023 Immature granulocytes/100 WBC (Bld) 0.300 % 0.0-0.9 [facility] Comment on above: IG% - Immature Granu locytes (promyelocytes, myelocytes and metamyelocytes) > 1% indicates that a LEFT SHIFT is Present. Ketones Test strip Ql (U)Ord ered By: Debbie Delgadillo on 11-21-2023 Ketones Ql (U) 15 mg/dl Negative [facility] Laboratory - Chemistry and C hemistry - challengeOrdered By: Debbie Delgadillo on 11-21-2023 ALP [Catalytic activity/Vol] 88 U/L 45-117 [facility] ALT [Catalytic activity/Vol] 26 U/L 13-56 [facility] CO2 [Moles/Vol] 23.0 mmol/L 21.0-32.0 [facility] Globulin (S) [Mass/Vol] 3.7 g/dL 2.2-4.2 [facility] Urea nitrogen/Creatinine [Mass ratio] 19.4 mg/mg 10-20 [facility] - Hematology and Cell countsOrdered By: Debbie Delgadillo on 11-21-2023 MCH (RBC) [Entitic mass] 28.2 pg 27.0-32.0 [facility] MCHC (RBC) [Mass/Vol] 31.9 g/dL 32-36 [facility] Nucleated RBC/100 WBC (Bld) [Ratio] 0 % 0-5 [facility] Platelet mean volume (Bld) [Entitic vol] 10.5 fL 6.2-12.0 [facility] Platelets (Bld) [#/Vol] 196 10*3/uL 150-450 [facility] Mucus LM Ql (Urine sed)Order ed By: Debbie Delgadillo on 11-21-2023 Mucus Ql (Urine sed) 0 SEEN /hpf [facility] Nitrite Test strip Ql (U)Ord ered By: Debbie Delgadillo on 11-21-2023 Nitrite Ql (U) Negative Negative [facility] No Panel InformationOrdered By: Debbie Delgadillo on 11-21-2023 Troponin I High Sensitivity 64 pg/mL 3.0-54.0 [facility] Comment on above: Please Note: New Fina t Units and Gender Specific Reference Ranges. For more information see Policy Stat Procedure [place] High Sensitivity Troponin (TNIH) and attachments. Urine RBC 0 SEEN /hpf 0-5 [facility] Estimated Creatinine Clearance Calc 64.92 ml/min [facility] Estimated GFR (MDRD) Amer 73 mL/min >60 [facility] Comment on above: GFR Calc Estimated GFR (MDRD) Non-Af Amer 60 mL/min >60 [facility] Comment on above: Non- GFR Calc Protein Test strip Ql (U)Ord ered By: Debbie Delgadillo on 11-21-2023 Protein Ql (U) 30 mg/dl Negative [facility] RBC Auto (Bld) [#/Vol]Ordere d By: Debbie Delgadillo on 11-21-2023 RBC (Bld) [#/Vol] 5.61 10*6/uL 4.2-5.4 [facility] Serum or plasma calcium margarita urement (mass/volume)Ordered By: Debbie Delgadillo on 11-21-2023 Calcium [Mass/Vol] 9.7 mg/dL 8.5-10.1 [facility] Serum or plasma creatinine m easurement (mass/volume)Ordered By: Debbie Delgadillo on 11-21-2023 Creatinine [Mass/Vol] 0.98 mg/dL 0.55-1.02 [facility] Comment on above: The validity of the calculated GFR & GFRAA in patients over 70 years has not been determined. Clinical correlation is essential. Serum or plasma urea nitroge n measurement (mass/volume)Ordered By: Debbie Delgadillo on 11-21-2023 Urea nitrogen [Mass/Vol] 19 mg/dL 7-18 [facility] Squamous epithelial cells de tection in urine sediment by light microscopyOrdered By: Debbie Delgadillo on 11-21-2023 Epithelial cells.squamous LM Ql (Urine sed) 0 SEEN /hpf 5-10 [facility] Thin prep Papanicolaou smear with manual screeningOrdered By: Debbie Delgadillo on 11-21-2023 Thin prep Papanicolaou smear with manual screening 3.7 g/dL 3.2-5.0 [facility] Thin prep Papanicolaou smear with manual screening 17 U/L 15-37 [facility] Comment on above: Slight Hemolysis, Re sult may be falsely increased. Thin prep Papanicolaou smear with manual screening 3 5-15 [facility] Urine blood detectionOrdered By: Debbie Delgadillo on 11-21-2023 RBC Ql (U) Negative Negative [facility] Urine clarityOrdered By: Milla Delgadillo on 11-21-2023 Clarity (U) Clear Clear [facility] Urine color determinationOrd ered By: Debbie Delgadillo on 11-21-2023 Color (U) Yellow Yellow [facility] Urine glucose detectionOrder ed By: Debbie Delgadillo on 11-21-2023 Glucose Ql (U) Normal mg/dl Normal [facility] Urine leukocyte esterase det ection by dipstickOrdered By: Debbie Delgadillo on 11-21-2023 Leukocyte esterase Test strip Ql (U) 25 /ul Negative [facility] Urine pHOrdered By: Debbie eDlgadillo on 11-21-2023 pH (U) 6.0 [pH] 5.0 - 8.0 [facility] Urine sediment bacteria coun t by microscopy (number/high power field)Ordered By: Debbie Delgadillo on 11-21-2023 Bacteria LM.HPF (Urine sed) [#/Area] 0 /[HPF] None Seen [facility] Urine specific gravity measu rementOrdered By: Debbie Delgadillo on 11-21-2023 Specific gravity (U) [Rel density] 1.020 1.002-1.030 [facility] Urine urobilinogen measureme ntOrdered By: Debbie Delgadillo on 11-21-2023 Urobilinogen Ql (U) Normal mg/dl Normal [facility] CNOVon 11-05-2023 CNOV Office Visit ([id number] ) -------- DIANNE ALVES ([id number]) 1955 F Date Time Provider Department 11/05/23 1:15 PM DOMINICK PAYTON HWW1 During your visit today, we recorded the [...] AND Elbow Surgeon Department of Orthopaedic Surgery [facility] Lynne Peña LPN 11/13/2023 1:13 PM Signed Injection prepared per Dr. Payton's order and handed directly to him. 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 Normal [facility] Basophil percentageOrdered B y: Aquiles Jones on 08-13-2023 Chloride [Moles/Vol] 101 mmol/L 98-107 [facility] Glucose [Mass/Vol] 119 mg/dL 74-106 [facility] Comment on above: Fasting Glucose resu lt from 100 to 125 mg/dL suggests IMPAIRED HOMEOSTASIS per A.D.A. criteria. Potassium [Moles/Vol] 4.8 mmol/L 3.5-5.1 [facility] Sodium [Moles/Vol] 135 mmol/L 136-145 [facility] WBC (Bld) [#/Vol] 6.6 10*3/uL 4.4-11.0 [facility] Blood erythrocytes count (nu mber/volume)Ordered By: Aquiles Jones on 08-13-2023 RBC (Bld) [#/Vol] 4.61 10*6/uL 4.2-5.4 [facility] Blood hemoglobin measurement (mass/volume)Ordered By: Aquiles Jones on 08-13-2023 Hemoglobin (Bld) [Mass/Vol] 13.5 g/dL 12.0-15.0 [facility] Blood platelet mean volumeOr dered By: Aquiles Jones on 08-13-2023 Platelet mean volume (Bld) [Entitic vol] 10.8 fL 6.2-12.0 [facility] Determination of erythrocyte mean corpuscular volume (MCV)Ordered By: Aquiles Jones on 08-13-2023 MCV (RBC) [Entitic vol] 93.3 fL 81-99 [facility] Hematocrit Auto (Bld) [Volum e fraction]Ordered By: Aquiles Jones on 08-13-2023 Hematocrit (Bld) [Volume fraction] 43.0 % 37-47 [facility] Laboratory - Chemistry and C hemistry - challengeOrdered By: Aquiles Jones on 08-13-2023 CO2 [Moles/Vol] 27.0 mmol/L 21.0-32.0 [facility] Urea nitrogen/Creatinine [Mass ratio] 21.5 mg/mg 10-20 [facility] Laboratory - Hematology and Cell countsOrdered By: Aquiles Jones on 08-13-2023 Erythrocyte distribution width (RBC) [Entitic vol] 52.2 fL 35.1-43.9 [facility] Erythrocyte distribution width (RBC) [Ratio] 15.0 % 11.6-14.6 [facility] MCH (RBC) [Entitic mass] 29.3 pg 27.0-32.0 [facility] MCHC Auto (RBC) [Mass/Vol]Or dered By: Aquiles Jones on 08-13-2023 MCHC (RBC) [Mass/Vol] 31.4 g/dL 32-36 [facility] No Panel InformationOrdered By: Aquiles Jones on 08-13-2023 Estimated GFR (MDRD) Amer 57 mL/min >60 [facility] Comment on above: GFR Calc Estimated GFR (MDRD) Non-Af Amer 47 mL/min >60 [facility] Comment on above: Non- GFR Calc Platelets bldOrdered By: Erika Jones on 08-13-2023 Platelets (Bld) [#/Vol] 304 10*3/uL 150-450 [facility] Serum or plasma calcium margarita urement (mass/volume)Ordered By: Aquiles Jones on 08-13-2023 Calcium [Mass/Vol] 9.4 mg/dL 8.5-10.1 [facility] Serum or plasma creatinine m easurement (mass/volume)Ordered By: Aquiles Jones on 08-13-2023 Creatinine [Mass/Vol] 1.21 mg/dL 0.55-1.02 [facility] Comment on above: The validity of the calculated GFR & GFRAA in patients over 70 years has not been determined. Clinical correlation is essential. Serum or plasma urea nitroge n measurement (mass/volume)Ordered By: Aquiles Jones on 08-13-2023 Urea nitrogen [Mass/Vol] 26 mg/dL 7-18 [facility] Thin prep Papanicolaou smear with manual screeningOrdered By: Aquiles Jones on 08-13-2023 Thin prep Papanicolaou smear with manual screening 7 5-15 [facility] Basophil percentageOrdered B y: Shady Burris on 08-12-2023 Chloride [Moles/Vol] 102 mmol/L 98-107 [facility] Glucose [Mass/Vol] 148 mg/dL 74-106 [facility] Comment on above: Fasting Glucose resu lt greater than or equal to 126 mg/dL suggests DIABETES MELLITUS per A.D.A. criteria. Potassium [Moles/Vol] 5.1 mmol/L 3.5-5.1 [facility] Sodium [Moles/Vol] 138 mmol/L 136-145 [facility] Laboratory - Chemistry and C hemistry - challengeOrdered By: Shady Burris on 08-12-2023 CO2 [Moles/Vol] 31.0 mmol/L 21.0-32.0 [facility] Urea nitrogen/Creatinine [Mass ratio] 22.1 mg/mg 10-20 [facility] No Panel InformationOrdered By: Shady Burris on 08-12-2023 Estimated Creatinine Clearance Calc 37.58 ml/min [facility] Estimated GFR (MDRD) Amer 50 mL/min >60 [facility] Comment on above: GFR Calc Estimated GFR (MDRD) Non-Af Amer 41 mL/min >60 [facility] Comment on above: Non- GFR Calc Serum or plasma calcium margarita urement (mass/volume)Ordered By: Shady Burris on 08-12-2023 Calcium [Mass/Vol] 9.0 mg/dL 8.5-10.1 [facility] Serum or plasma creatinine m easurement (mass/volume)Ordered By: Shady Burris on 08-12-2023 Creatinine [Mass/Vol] 1.36 mg/dL 0.55-1.02 [facility] Comment on above: The validity of the calculated GFR & GFRAA in patients over 70 years has not been determined. Clinical correlation is essential. Serum or plasma urea nitroge n measurement (mass/volume)Ordered By: Shady Burris on 08-12-2023 Urea nitrogen [Mass/Vol] 30 mg/dL 7-18 [facility] Thin prep Papanicolaou smear with manual screeningOrdered By: Shady Burris on 08-12-2023 Thin prep Papanicolaou smear with manual screening 5 5-15 [facility] Absolute lymphocyte countOrd ered By: Julio Duong on 08-11-2023 Lymphocytes Auto (Unsp spec) [#/Vol] 2.50 10*3/uL 0.83-4.51 [facility] Basophil percentageOrdered B y: Julio Duong on 08-11-2023 Basophils/100 WBC (Bld) 0.7 % 0-1 [facility] Eosinophils/100 WBC (Bld) 6.7 % 0-5 [facility] Neutrophils (Bld) [#/Vol] 2.3 10*3/uL 2.0-7.7 [facility] Neutrophils/100 WBC (Bld) 40.1 % 47-70 [facility] WBC (Bld) [#/Vol] 5.7 10*3/uL 4.4-11.0 [facility] Blood erythrocytes count (nu mber/volume)Ordered By: Julio Duong on 08-11-2023 RBC (Bld) [#/Vol] 4.50 10*6/uL 4.2-5.4 [facility] Blood hemoglobin measurement (mass/volume)Ordered By: Julio Duong on 08-11-2023 Hemoglobin (Bld) [Mass/Vol] 12.9 g/dL 12.0-15.0 [facility] Blood lymphocytes/100 leukoc ytesOrdered By: Julio Duong on 08-11-2023 Lymphocytes/100 WBC (Bld) 44.2 % 19-41 [facility] Blood monocytes/100 leukocyt esOrdered By: Julio Duong on 08-11-2023 Monocytes/100 WBC (Bld) 8.1 % 0-10 [facility] Blood platelet mean volumeOr dered By: Julio Duong on 08-11-2023 Platelet mean volume (Bld) [Entitic vol] 10.2 fL 6.2-12.0 [facility] Determination of erythrocyte mean corpuscular volume (MCV)Ordered By: Julio Duong on 08-11-2023 MCV (RBC) [Entitic vol] 91.8 fL 81-99 [facility] Hematocrit Auto (Bld) [Volum e fraction]Ordered By: Julio Duong on 08-11-2023 Hematocrit (Bld) [Volume fraction] 41.3 % 37-47 [facility] Laboratory - Hematology and Cell countsOrdered By: Julio Duong on 08-11-2023 Erythrocyte distribution width (RBC) [Entitic vol] 50.7 fL 35.1-43.9 [facility] Erythrocyte distribution width (RBC) [Ratio] 15.0 % 11.6-14.6 [facility] Immature granulocytes/100 WBC (Bld) 0.200 % 0.0-0.9 [facility] Comment on above: IG% - Immature Granu locytes (promyelocytes, myelocytes and metamyelocytes) > 1% indicates that a LEFT SHIFT is Present. MCH (RBC) [Entitic mass] 28.7 pg 27.0-32.0 [facility] Nucleated RBC/100 WBC (Bld) [Ratio] 0 % 0-5 [facility] MCHC Auto (RBC) [Mass/Vol]Or dered By: Julio Duong on 08-11-2023 MCHC (RBC) [Mass/Vol] 31.2 g/dL 32-36 [facility] Platelets bldOrdered By: Conchis Duong on 08-11-2023 Platelets (Bld) [#/Vol] 268 10*3/uL 150-450 [facility] Basophil percentageOrdered B y: Miguelina Castanon on 08-06-2023 Bilirubin [Mass/Vol] 0.30 mg/dL 0.20-1.00 [facility] Comment on above: For patients on eltr ombopag therapy, use of Dimension [place] TBIL is not recommended. Cholesterol [Mass/Vol] 131 mg/dL <200 [facility] Comment on above: <200 mg/dL Desirable 200-240 mg/dL Borderline >240 mg/dL High Risk Protein [Mass/Vol] 6.2 g/dL 6.4-8.2 [facility] Triglyceride [Mass/Vol] 108 mg/dL <199 [facility] Comment on above: The drugs N-Acetylcy steine and Metamizole may falsely depress this assay.Serum Triglycerides Reference Interval Normal <150 mg/dL Borderline high 150 - 199 mg/dL High 200 - 499 mg/dL Very High > or = 500 mg/dL Laboratory - Chemistry and C hemistry - challengeOrdered By: Miguelina Castanon on 08-06-2023 ALP [Catalytic activity/Vol] 77 U/L 45-117 [facility] ALT [Catalytic activity/Vol] 20 U/L 13-56 [facility] Globulin (S) [Mass/Vol] 3.4 g/dL 2.2-4.2 [facility] Serum or plasma albumin margarita urement (mass/volume)Ordered By: Miguelina Castanon on 08-06-2023 Albumin [Mass/Vol] 2.8 g/dL 3.2-5.0 [facility] Serum or plasma albumin/glob ulin mass ratioOrdered By: Miguelina Castanon on 08-06-2023 Albumin/Globulin [Mass ratio] 0.8 {ratio} 0.9-2.4 [facility] Serum or plasma cholesterol in HDL measurement (mass/volume)Ordered By: Miguelina Castanon on 08-06-2023 Cholesterol in HDL [Mass/Vol] 46 mg/dL >40 [facility] Comment on above: The drugs N-Acetylcy steine and Metamizole may falsely depress this assay. Reference Range HDL <40 mg/dL Low HDL Cholesterol HDL >or= 60 mg/dL High HDL Cholesterol Serum or plasma cholesterol in VLDL measurement (mass/volume)Ordered By: Miguelina Castanon on 08-06-2023 Cholesterol in VLDL [Mass/Vol] 22 mg/dL 5-40 [facility] Serum or plasma low density lipoprotein (LDL) cholesterol measurement (mass/volume)Ordered By: Miguelina Castanon on 08-06-2023 Cholesterol in LDL [Mass/Vol] 63 mg/dL 0-130 [facility] Thin prep Papanicolaou smear with manual screeningOrdered By: Miguelina Castanon on 08-06-2023 Thin prep Papanicolaou smear with manual screening 14 U/L 15-37 [facility] Absolute lymphocyte countOrd ered By: Castro Lane on 08-05-2023 Lymphocytes Auto (Unsp spec) [#/Vol] 2.38 10*3/uL 0.83-4.51 [facility] Basophil percentageOrdered B y: Castro Lane on 08-05-2023 Basophils/100 WBC (Bld) 0.6 % 0-1 [facility] Chloride [Moles/Vol] 103 mmol/L 98-107 [facility] Eosinophils/100 WBC (Bld) 5.7 % 0-5 [facility] Glucose [Mass/Vol] 115 mg/dL 74-106 [facility] Comment on above: Fasting Glucose resu lt from 100 to 125 mg/dL suggests IMPAIRED HOMEOSTASIS per A.D.A. criteria. Neutrophils (Bld) [#/Vol] 3.1 10*3/uL 2.0-7.7 [facility] Neutrophils/100 WBC (Bld) 48.3 % 47-70 [facility] Potassium [Moles/Vol] 5.2 mmol/L 3.5-5.1 [facility] Sodium [Moles/Vol] 137 mmol/L 136-145 [facility] WBC (Bld) [#/Vol] 6.3 10*3/uL 4.4-11.0 [facility] Blood erythrocytes count (nu mber/volume)Ordered By: Castro Lane on 08-05-2023 RBC (Bld) [#/Vol] 4.69 10*6/uL 4.2-5.4 [facility] Blood hemoglobin measurement (mass/volume)Ordered By: Castro Lane on 08-05-2023 Hemoglobin (Bld) [Mass/Vol] 13.4 g/dL 12.0-15.0 [facility] Blood lymphocytes/100 leukoc ytesOrdered By: Castro Lane on 08-05-2023 Lymphocytes/100 WBC (Bld) 37.6 % 19-41 [facility] Blood monocytes/100 leukocyt esOrdered By: Castro [address] on 08-05-2023 Monocytes/100 WBC (Bld) 7.6 % 0-10 [facility] Blood platelet mean volumeOr dered By: Castro Lane on 08-05-2023 Platelet mean volume (Bld) [Entitic vol] 10.5 fL 6.2-12.0 [facility] Determination of erythrocyte mean corpuscular volume (MCV)Ordered By: Castro Lane on 08-05-2023 MCV (RBC) [Entitic vol] 94.9 fL 81-99 [facility] Hematocrit Auto (Bld) [Volum e fraction]Ordered By: Castro Lane on 08-05-2023 Hematocrit (Bld) [Volume fraction] 44.5 % 37-47 [facility] Laboratory - Chemistry and C hemistry - challengeOrdered By: Miguelina Castanon on 08-05-2023 Magnesium [Mass/Vol] 2.6 mg/dL 1.6-2.6 [facility] Laboratory - Chemistry and C hemistry - challengeOrdered By: Castro Lane on 08-05-2023 CO2 [Moles/Vol] 30.0 mmol/L 21.0-32.0 [facility] Natriuretic peptide B (Bld) [Mass/Vol] 7.2 pg/mL 0-100 [facility] Urea nitrogen/Creatinine [Mass ratio] 21.5 mg/mg 10-20 [facility] Laboratory - Drug toxicology Ordered By: Castro Lane on 08-05-2023 Amphetamines Ql (U) Negative <1000 ng/mL [facility] Benzodiazepines Ql (U) Negative < 200 ng/mL [facility] Cannabinoids Screen Ql (U) Negative < 50 ng/mL [facility] Cocaine Ql (U) Negative < 300 ng/mL [facility] Opiates Ql (U) Positive < 300 ng/mL [facility] Laboratory - Hematology and Cell countsOrdered By: Castro Lane on 08-05-2023 Erythrocyte distribution width (RBC) [Entitic vol] 54.4 fL 35.1-43.9 [facility] Erythrocyte distribution width (RBC) [Ratio] 15.6 % 11.6-14.6 [facility] Immature granulocytes/100 WBC (Bld) 0.200 % 0.0-0.9 [facility] Comment on above: IG% - Immature Granu locytes (promyelocytes, myelocytes and metamyelocytes) > 1% indicates that a LEFT SHIFT is Present. MCH (RBC) [Entitic mass] 28.6 pg 27.0-32.0 [facility] Nucleated RBC/100 WBC (Bld) [Ratio] 0 % 0-5 [facility] MCHC Auto (RBC) [Mass/Vol]Or dered By: Castro Lane on 08-05-2023 MCHC (RBC) [Mass/Vol] 30.1 g/dL 32-36 [facility] No Panel InformationOrdered By: Miguelina Castanon on 08-05-2023 Troponin I High Sensitivity 64 pg/mL 3.0-54.0 [facility] Comment on above: Please Note: New Fina t Units and Gender Specific Reference Ranges. For more information see Policy Stat Procedure [place] High Sensitivity Troponin (TNIH) and attachments. No Panel InformationOrdered By: Woodrow Cardenas on 08-05-2023 D-Dimer Quantitative (PE/DVT) 9.13 FEU/ug/m 0.27-0.49 [facility] Comment on above: D-Dimer ELEVATED (>0 .49): Additional studies and clinicalassessments are indicated to conclude diagnosis of:Deep Vein Thrombosis (DVT) or Pulmonary Embolism (PE)CRITICAL VALUE VERIFIED. CALLED TO ROSALINDA MONTANO ([facility])08/05/23 0920 Niles Mendoza.RESULTS READ BACK BY SAME. No Panel InformationOrdered By: Castro Lane on 08-05-2023 MDMA (Ecstasy) Screen Negative < 500 ng/mL [facility] Urine Barbiturates Screen Negative < 200 ng/mL [facility] Urine Drug Screen Comment [facility] Comment on above: CONFIRMATORY TESTING FOR ALL [...] Methadone Screen Negative < 300 ng/mL [facility] Estimated Creatinine Clearance Calc 39.31 ml/min [facility] Estimated GFR (MDRD) Amer 53 mL/min >60 [facility] Comment on above: GFR Calc Estimated GFR (MDRD) Non-Af Amer 43 mL/min >60 [facility] Comment on above: Non- GFR Calc Troponin I High Sensitivity 73 pg/mL 3.0-54.0 [facility] Comment on above: Please Note: New Fina t Units and Gender Specific Reference Ranges. For more information see Policy Stat Procedure [place] High Sensitivity Troponin (TNIH) and attachments. Platelets bldOrdered By: Temo Lane on 08-05-2023 Platelets (Bld) [#/Vol] 244 10*3/uL 150-450 [facility] Serum or plasma calcium margarita urement (mass/volume)Ordered By: Castro Lane on 08-05-2023 Calcium [Mass/Vol] 9.2 mg/dL 8.5-10.1 [facility] Serum or plasma creatinine m easurement (mass/volume)Ordered By: Castro Lane on 08-05-2023 Creatinine [Mass/Vol] 1.30 mg/dL 0.55-1.02 [facility] Comment on above: The validity of the calculated GFR & GFRAA in patients over 70 years has not been determined. Clinical correlation is essential. Serum or plasma urea nitroge n measurement (mass/volume)Ordered By: Castro Lane on 08-05-2023 Urea nitrogen [Mass/Vol] 28 mg/dL 7-18 [facility] Thin prep Papanicolaou smear with manual screeningOrdered By: Castro Lane on 08-05-2023 Thin prep Papanicolaou smear with manual screening 4 5-15 [facility] Urine phencyclidine (PCP) de tectionOrdered By: Castro Lane on 08-05-2023 Phencyclidine Ql (U) Negative < 25 ng/mL [facility] Absolute lymphocyte countOrd ered By: Stef Bennett on 01-14-2023 Lymphocytes Auto (Unsp spec) [#/Vol] 1.72 10*3/uL 0.83-4.51 [facility] Basophil percentageOrdered B y: Stef Bennett on 01-14-2023 Ammonia (P) [Moles/Vol] 15.0 umol/L 11-32 [facility] Basophil percentage < 0.2 AI 0.0-0.9 [facility] Basophils/100 WBC (Bld) 0.3 % 0-1 [facility] Bilirubin [Mass/Vol] 0.40 mg/dL 0.20-1.00 [facility] Comment on above: For patients on eltr ombopag therapy, use of Dimension [place] TBIL is not recommended. Chloride [Moles/Vol] 109 mmol/L 98-[address] [facility] Eosinophils/100 WBC (Bld) 4.0 % 0-5 [facility] Glucose [Mass/Vol] 146 mg/dL 74-106 [facility] Comment on above: Fasting Glucose resu lt greater than or equal to 126 mg/dL suggests DIABETES MELLITUS per A.D.A. criteria. LDH [Catalytic activity/Vol] 213 U/L 84-246 [facility] Neutrophils (Bld) [#/Vol] 3.7 10*3/uL 2.0-7.7 [facility] Neutrophils/100 WBC (Bld) 61.6 % 47-70 [facility] Potassium [Moles/Vol] 3.9 mmol/L 3.5-5.1 [facility] Protein [Mass/Vol] 7.3 g/dL 6.4-8.2 [facility] Sodium [Moles/Vol] 139 mmol/L 136-145 [facility] WBC (Bld) [#/Vol] 6.0 10*3/uL 4.4-11.0 [facility] Blood erythrocytes count (nu mber/volume)Ordered By: Stef Bennett on 01-14-2023 RBC (Bld) [#/Vol] 5.03 10*6/uL 4.2-5.4 [facility] Blood hemoglobin measurement (mass/volume)Ordered By: Stef Bennett on 01-14-2023 Hemoglobin (Bld) [Mass/Vol] 14.6 g/dL 12.0-15.0 [facility] Blood lymphocytes/100 leukoc ytesOrdered By: Stef Bennett on 01-14-2023 Lymphocytes/100 WBC (Bld) 28.6 % 19-41 [facility] Blood monocytes/100 leukocyt esOrdered By: Stef Bennett on 01-14-2023 Monocytes/100 WBC (Bld) 5.5 % 0-10 [facility] Blood platelet mean volumeOr dered By: Stef Bennett on 01-14-2023 Platelet mean volume (Bld) [Entitic vol] 10.3 fL 6.2-12.0 [facility] Determination of erythrocyte mean corpuscular volume (MCV)Ordered By: Stef Bennett on 01-14-2023 MCV (RBC) [Entitic vol] 89.3 fL 81-99 [facility] Erythrocyte sedimentation ra teOrdered By: Stef Bennett on 01-14-2023 ESR (Bld) [Velocity] 19 mm/h 0-30 [facility] HIV 1 and HIV-2 antibody ass ay with HIV-1 p24 antigen detectionOrdered By: Stef Bennett on 01-14-2023 HIV 1+2 Ab+HIV1 p24 Ag IA Ql Non-Reactive Nonreactive [facility] Hematocrit Auto (Bld) [Volum e fraction]Ordered By: Stef Bennett on 01-14-2023 Hematocrit (Bld) [Volume fraction] 44.9 % 37-47 [facility] INR in Blood by Coagulation assayOrdered By: Stef Bennett on 01-14-2023 INR Coag (Bld) [Relative time] 1.1 {INR} [facility] Laboratory - Chemistry and C hemistry - challengeOrdered By: Stef Bennett on 01-14-2023 ALP [Catalytic activity/Vol] 94 U/L 45-117 [facility] ALT [Catalytic activity/Vol] 24 U/L 13-56 [facility] CO2 [Moles/Vol] 23.0 mmol/L 21.0-32.0 [facility] Globulin (S) [Mass/Vol] 3.3 g/dL 2.2-4.2 [facility] Urea nitrogen/Creatinine [Mass ratio] 19.2 mg/mg 10-20 [facility] Laboratory - CoagulationOrde red By: Stef Bennett on 01-14-2023 PT Coag (PPP) [Time] 14.2 s 11.7-14.9 [facility] Laboratory - Hematology and Cell countsOrdered By: Stef Bennett on 01-14-2023 Erythrocyte distribution width (RBC) [Entitic vol] 46.4 fL 35.1-43.9 [facility] Erythrocyte distribution width (RBC) [Ratio] 14.1 % 11.6-14.6 [facility] Immature granulocytes/100 WBC (Bld) 0.000 % 0.0-0.9 [facility] Comment on above: IG% - Immature Granu locytes (promyelocytes, myelocytes and metamyelocytes) > 1% indicates that a LEFT SHIFT is Present. MCH (RBC) [Entitic mass] 29.0 pg 27.0-32.0 [facility] Nucleated RBC/100 WBC (Bld) [Ratio] 0 % 0-5 [facility] MCHC Auto (RBC) [Mass/Vol]Or dered By: Stef Friend on 01-14-2023 MCHC (RBC) [Mass/Vol] 32.5 g/dL 32-36 [facility] No Panel InformationOrdered By: Stef Friend on 01-14-2023 Centromere B Antibody <0.2 AI 0.0-0.9 [facility] Estimated GFR (MDRD) Amer 68 mL/min >60 [facility] Comment on above: GFR Calc Estimated GFR (MDRD) Non-Af Amer 56 mL/min >60 [facility] Comment on above: Non- GFR Calc Hepatitis C Antibody Reactive Nonreactive [facility] Comment on above: Previous reported re sult: Preliminary Reactive Edited by: TIMO on 01/15/23:0728 AMENDED REPORT 01/15/23 0728 HEPATITIS C AB previously reported as: Preliminary Reactive Non Reactive: < 0.8 Equivocal: >/= 0.8 to < 1.0 Reactive: >/= 1.0The CDC recommends that a reactive/equivocal HCV antibody result be followed up by the HCV Nucleic Acid Amplificationtest (094256) Miscellaneous Test See comment [facility] Comment on above: TEST RESULTS LIMITSH CV RNA Diagnosis, NAAHCV RNA, Quantitation HCV Not Detected IU/mLNo evidence of active HCV infection.Test Information: The quantitative range of this assay is 15 IU/mL to 100 million IU/mL. TESTING PERFORMED AT [facility]. ORIGINAL REPORT ON FILE IN LAB CONTAINS ADDITIONAL TEST SITE INFORMATION. [employer] CLERK Antibody <0.2 AI 0.0-0.9 [facility] Platelets bldOrdered By: Pedro Bennett on 01-14-2023 Platelets (Bld) [#/Vol] 244 10*3/uL 150-450 [facility] Serum DNA double strand anti body assay (units/volume)Ordered By: Stef Bennett on 01-14-2023 DNA double strand Ab Qn (S) 3 [IU]/mL 0-9 [facility] Comment on above: Negative <5 Equivoca l 5 - 9 Positive >9 Serum Tia-1 antibody assay (u nits/volume)Ordered By: Stef Bennett on 01-14-2023 Tia-1 extractable nuclear Ab Qn (S) <0.2 AI 0.0-0.9 [facility] Serum Scl-70 extractable nuc lear antibody assay (units/volume)Ordered By: Stef Bennett on 01-14-2023 SCL-70 extractable nuclear Ab Qn (S) <0.2 AI 0.0-0.9 [facility] Serum Farah extractable nucl ear antibody detectionOrdered By: Stef Bennett on 01-14-2023 Farah extractable nuclear Ab Ql (S) <0.2 AI 0.0-0.9 [facility] Serum mitochondria antibody detectionOrdered By: Stef Bennett on 01-14-2023 Mitochondria Ab Ql (S) <20.0 Units 0.0-20.0 [facility] Comment on above: Negative 0.0 - 20.0 Equivocal 20.1 - 24.9 Positive >24.9Mitochondrial (M2) Antibodies are found in 90-96% ofpatients with primary biliary cirrhosis.Performed at: - [address] [id number] Director: Curry Andrews PhD, Phone: [phone] Serum or plasma C reactive p rotein measurement (mass/volume)Ordered By: Stef Bennett on 01-14-2023 CRP [Mass/Vol] mg/L 0.0-3.0 [facility] Comment on above: C-Reactive Protein ( CRP) provides useful information for thediagnosis, therapy and monitoring of inflammatory processesand associated diseases. For the evaluation of Relative Riskfor Cardiovascular Disease, a High Sensitivity CRP (HSCRP)should be ordered. Serum or plasma albumin margarita urement (mass/volume)Ordered By: Stef Bennett on 01-14-2023 Albumin [Mass/Vol] 4.0 g/dL 3.2-5.0 [facility] Serum or plasma albumin/glob ulin mass ratioOrdered By: Stef Bennett on 01-14-2023 Albumin/Globulin [Mass ratio] 1.2 {ratio} 0.9-2.4 [facility] Serum or plasma calcium margarita urement (mass/volume)Ordered By: Stef Bennett on 01-14-2023 Calcium [Mass/Vol] 9.2 mg/dL 8.5-10.1 [facility] Serum or plasma creatinine m easurement (mass/volume)Ordered By: Stef Bennett on 01-14-2023 Creatinine [Mass/Vol] 1.04 mg/dL 0.55-1.02 [facility] Comment on above: The validity of the calculated GFR & GFRAA in patients over 70 years has not been determined. Clinical correlation is essential. Serum or plasma ferritin joseph surement (mass/volume)Ordered By: Stef Bennett on 01-14-2023 Ferritin [Mass/Vol] 67 ng/mL 8-252 [facility] Serum or plasma urea nitroge n measurement (mass/volume)Ordered By: Stef Bennett on 01-14-2023 Urea nitrogen [Mass/Vol] 20 mg/dL 7-18 [facility] Thin prep Papanicolaou smear with manual screeningOrdered By: Stef Bennett on 01-14-2023 Thin prep Papanicolaou smear with manual screening 21 U/L 15-37 [facility] Thin prep Papanicolaou smear with manual screening 7 5-15 [facility] Absolute lymphocyte countOrd ered By: Dr. Kingsley on 10-22-2022 Lymphocytes Auto (Unsp spec) [#/Vol] 2.52 10*3/uL 0.83-4.51 [facility] Basophil percentageOrdered B y: Dr. Kingsley on 10-22-2022 Basophils/100 WBC (Bld) 0.5 % 0-1 [facility] Chloride [Moles/Vol] 110 mmol/L 98-107 [facility] Eosinophils/100 WBC (Bld) 5.9 % 0-5 [facility] Glucose [Mass/Vol] 96 mg/dL 74-106 [facility] Neutrophils (Bld) [#/Vol] 2.9 10*3/uL 2.0-7.7 [facility] Neutrophils/100 WBC (Bld) 46.3 % 47-70 [facility] Potassium [Moles/Vol] 5.4 mmol/L 3.5-5.1 [facility] Comment on above: Moderate Hemolysis, Result may be falsely increased. Sodium [Moles/Vol] 138 mmol/L 136-145 [facility] WBC (Bld) [#/Vol] 6.3 10*3/uL 4.4-11.0 [facility] Blood erythrocytes count (nu mber/volume)Ordered By: Dr. Kingsley on 10-22-2022 RBC (Bld) [#/Vol] 4.77 10*6/uL 4.2-5.4 [facility] Blood hemoglobin measurement (mass/volume)Ordered By: Dr. Kingsley on 10-22-2022 Hemoglobin (Bld) [Mass/Vol] 14.1 g/dL 12.0-15.0 [facility] Blood lymphocytes/100 leukoc ytesOrdered By: Dr. Kingsley on 10-22-2022 Lymphocytes/100 WBC (Bld) 40.1 % 19-41 [facility] Blood monocytes/100 leukocyt esOrdered By: Dr. Kingsley on 10-22-2022 Monocytes/100 WBC (Bld) 7.0 % 0-10 [facility] Blood platelet mean volumeOr dered By: Dr. Kingsley on 10-22-2022 Platelet mean volume (Bld) [Entitic vol] 10.1 fL 6.2-12.0 [facility] Determination of erythrocyte mean corpuscular volume (MCV)Ordered By: Dr. Kingsley on 10-22-2022 MCV (RBC) [Entitic vol] 90.4 fL 81-99 [facility] Hematocrit Auto (Bld) [Volum e fraction]Ordered By: Dr. Kingsley on 10-22-2022 Hematocrit (Bld) [Volume fraction] 43.1 % 37-47 [facility] Laboratory - Chemistry and C hemistry - challengeOrdered By: Dr. Kingsley on 10-22-2022 CO2 [Moles/Vol] 22.0 mmol/L 21.0-32.0 [facility] Urea nitrogen/Creatinine [Mass ratio] 17.0 mg/mg 10-20 [facility] - Hematology and Cell countsOrdered By: Dr. Kingsley on 10-22-2022 Erythrocyte distribution width (RBC) [Entitic vol] 45.9 fL 35.1-43.9 [facility] Erythrocyte distribution width (RBC) [Ratio] 13.9 % 11.6-14.6 [facility] Immature granulocytes/100 WBC (Bld) 0.200 % 0.0-0.9 [facility] Comment on above: IG% - Immature Granu locytes (promyelocytes, myelocytes and metamyelocytes) > 1% indicates that a LEFT SHIFT is Present. MCH (RBC) [Entitic mass] 29.6 pg 27.0-32.0 [facility] Nucleated RBC/100 WBC (Bld) [Ratio] 0 % 0-5 [facility] MCHC Auto (RBC) [Mass/Vol]Or dered By: Dr. Kingsley on 10-22-2022 MCHC (RBC) [Mass/Vol] 32.7 g/dL 32-36 [facility] No Panel InformationOrdered By: Dr. Kingsley on 10-22-2022 Estimated Creatinine Clearance Calc 46.25 ml/min [facility] Estimated GFR (MDRD) Amer 63 mL/min >60 [facility] Comment on above: GFR Calc Estimated GFR (MDRD) Non-Af Amer 52 mL/min >60 [facility] Comment on above: Non- GFR Calc Platelets bldOrdered By: Dr. Kingsley on 10-22-2022 Platelets (Bld) [#/Vol] 244 10*3/uL 150-450 [facility] Serum or plasma calcium margarita urement (mass/volume)Ordered By: Dr. Kingsley on 10-22-2022 Calcium [Mass/Vol] 9.2 mg/dL 8.5-10.1 [facility] Serum or plasma creatinine m easurement (mass/volume)Ordered By: Dr. Kingsley on 10-22-2022 Creatinine [Mass/Vol] 1.12 mg/dL 0.55-1.02 [facility] Comment on above: The validity of the calculated GFR & GFRAA in patients over 70 years has not been determined. Clinical correlation is essential. Serum or plasma urea nitroge n measurement (mass/volume)Ordered By: Dr. Kingsley on 10-22-2022 Urea nitrogen [Mass/Vol] 19 mg/dL 7-18 [facility] Thin prep Papanicolaou smear with manual screeningOrdered By: Dr. Kingsley on 10-22-2022 Thin prep Papanicolaou smear with manual screening 6 5-15 [facility] Absolute lymphocyte countOrd ered By: Dr. Marshall on 07-30-2022 Lymphocytes Auto (Unsp spec) [#/Vol] 2.42 10*3/uL 0.83-4.51 [facility] Basophil percentageOrdered B y: Dr. Marshall on 07-30-2022 Basophils/100 WBC (Bld) 0.7 % 0-1 [facility] Chloride [Moles/Vol] 106 mmol/L 98-107 [facility] Eosinophils/100 WBC (Bld) 6.9 % 0-5 [facility] Glucose [Mass/Vol] 100 mg/dL 74-106 [facility] Comment on above: Fasting Glucose resu lt from 100 to 125 mg/dL suggests IMPAIRED HOMEOSTASIS per A.D.A. criteria. Neutrophils (Bld) [#/Vol] 2.8 10*3/uL 2.0-7.7 [facility] Neutrophils/100 WBC (Bld) 45.4 % 47-70 [facility] Potassium [Moles/Vol] 3.9 mmol/L 3.5-5.1 [facility] Sodium [Moles/Vol] 140 mmol/L 136-145 [facility] WBC (Bld) [#/Vol] 6.1 10*3/uL 4.4-11.0 [facility] Blood erythrocytes count (nu mber/volume)Ordered By: Dr. Marshall on 07-30-2022 RBC (Bld) [#/Vol] 4.70 10*6/uL 4.2-5.4 [facility] Blood hemoglobin measurement (mass/volume)Ordered By: Dr. Marshall on 07-30-2022 Hemoglobin (Bld) [Mass/Vol] 14.1 g/dL 12.0-15.0 [facility] Blood lymphocytes/100 leukoc ytesOrdered By: Dr. Marshall on 07-30-2022 Lymphocytes/100 WBC (Bld) 39.5 % 19-41 [facility] Blood monocytes/100 leukocyt esOrdered By: Dr. Marshall on 07-30-2022 Monocytes/100 WBC (Bld) 7.2 % 0-10 [facility] Blood platelet mean volumeOr dered By: Dr. Marshall on 07-30-2022 Platelet mean volume (Bld) [Entitic vol] 10.3 fL 6.2-12.0 [facility] COVID-19 virus antigen assay Ordered By: Dr. Marshall on 07-30-2022 SARS-CoV-2 (COVID-19) Ag IA.rapid Ql (Resp) [facility] Determination of erythrocyte mean corpuscular volume (MCV)Ordered By: Dr. Marshall on 07-30-2022 MCV (RBC) [Entitic vol] 90.9 fL 81-99 [facility] Hematocrit Auto (Bld) [Volum e fraction]Ordered By: Dr. Marshall on 07-30-2022 Hematocrit (Bld) [Volume fraction] 42.7 % 37-47 [facility] - Chemistry and C hemistry - challengeOrdered By: Dr. Marshall on 07-30-2022 CO2 [Moles/Vol] 30.0 mmol/L 21.0-32.0 [facility] Urea nitrogen/Creatinine [Mass ratio] 17.1 mg/mg 10-20 [facility] - Hematology and Cell countsOrdered By: Dr. Marshall on 07-30-2022 Erythrocyte distribution width (RBC) [Entitic vol] 44.6 fL 35.1-43.9 [facility] Erythrocyte distribution width (RBC) [Ratio] 13.3 % 11.6-14.6 [facility] Immature granulocytes/100 WBC (Bld) 0.300 % 0.0-0.9 [facility] Comment on above: IG% - Immature Granu locytes (promyelocytes, myelocytes and metamyelocytes) > 1% indicates that a LEFT SHIFT is Present. MCH (RBC) [Entitic mass] 30.0 pg 27.0-32.0 [facility] Nucleated RBC/100 WBC (Bld) [Ratio] 0 % 0-5 [facility] MCHC Auto (RBC) [Mass/Vol]Or dered By: Dr. Marshall on 07-30-2022 MCHC (RBC) [Mass/Vol] 33.0 g/dL 32-36 [facility] No Panel InformationOrdered By: Dr. Marshall on 07-30-2022 Estimated Creatinine Clearance Calc 52.33 ml/min [facility] Estimated GFR (MDRD) Amer 72 mL/min >60 [facility] Comment on above: GFR Calc Estimated GFR (MDRD) Non-Af Amer 59 mL/min >60 [facility] Comment on above: Non- GFR Calc Platelets bldOrdered By: Dr. Marshall on 07-30-2022 Platelets (Bld) [#/Vol] 245 10*3/uL 150-450 [facility] Serum or plasma calcium margarita urement (mass/volume)Ordered By: Dr. Marshall on 07-30-2022 Calcium [Mass/Vol] 9.8 mg/dL 8.5-10.1 [facility] Serum or plasma creatinine m easurement (mass/volume)Ordered By: Dr. Marshall on 07-30-2022 Creatinine [Mass/Vol] 0.99 mg/dL 0.55-1.02 [facility] Comment on above: The validity of the calculated GFR & GFRAA in patients over 70 years has not been determined. Clinical correlation is essential. Serum or plasma urea nitroge n measurement (mass/volume)Ordered By: Dr. Marshall on 07-30-2022 Urea nitrogen [Mass/Vol] 17 mg/dL 7-18 [facility] Thin prep Papanicolaou smear with manual screeningOrdered By: Dr. Marshall on 07-30-2022 Thin prep Papanicolaou smear with manual screening 4 5-15 [facility] CKon 04-13-2020 CK [Catalytic activity/Vol] 216 U/L High 30-170 [facility] Comment on above: Performed By: #### H EMDF, CMP3, ETOH4, CK3 #### [address] Total CK 216 U/L High 30 - 170 [facility] SARS-CoV-2 Not Detected Expected Result: Not Detected _ Real-time, RT-PCR performed on the [facility] by the [facility]. Negative results do not preclude SARS-CoV-2 infection and should not be used as the sole basis for treatment or other patient management decisions. This assay was developed by [employer] and distributed under an Emergency Use Authorization (EUA) granted by the FDA for the qualitative detection of SARS-CoV-2 nucleic acid. [place], [place] Test Performed by [facility], [address] [place] [id number] Specimen Source Comment:Nasopharyngeal Swab [place], [place] Comp Metabolic Panelon 04-13 ALP [Catalytic activity/Vol] 72 U/L Normal 38-126 [facility] Comment on above: Performed By: #### H EMDF, CMP3, ETOH4, CK3 #### [address] ALT [Catalytic activity/Vol] 17 U/L Normal 0-34 [facility] Comment on above: Result Comment: The ALT test is performed by an updated assay method. Please note that the reference intervals have been changed and are now sex specific. Performed By: #### H EMDF, CMP3, ETOH4, CK3 #### [place] [address] [place], [place] AST [Catalytic activity/Vol] 32 U/L Normal 15-46 [facility] Comment on above: Performed By: #### H EMDF, CMP3, ETOH4, CK3 #### [address] Calcium [Mass/Vol] 9.6 mg/dL Normal 8.4-10.4 [facility] Comment on above: Performed By: #### H EMDF, CMP3, ETOH4, CK3 #### [address] Glucose [Mass/Vol] 107 mg/dL High 70-100 [facility] Comment on above: Performed By: #### H EMDF, CMP3, ETOH4, CK3 #### [facility] [address] [place], [place] Protein [Mass/Vol] 7.3 g/dL Normal 6.3-8.2 [facility] Comment on above: Performed By: #### H EMDF, CMP3, ETOH4, CK3 #### [facility] [address], [place] Urea nitrogen [Mass/Vol] 17 mg/dL Normal 7-20 [facility] Comment on above: Performed By: #### H EMDF, CMP3, ETOH4, CK3 #### [place] [address] [place], [place] Anion gap [Moles/Vol] 7 Normal [facility] Comment on above: Performed By: #### H EMDF, CMP3, ETOH4, CK3 #### [place] [address] [place], [place] Bilirubin [Mass/Vol] 0.5 mg/dL Normal 0.2-1.3 [facility] Comment on above: Performed By: #### H EMDF, CMP3, ETOH4, CK3 #### [place] [address] [place], [place] CO2 [Moles/Vol] 25 mmol/L Normal 22-30 [facility] Comment on above: Performed By: #### H EMDF, CMP3, ETOH4, CK3 #### [place] [address] [place], [place] Creatinine [Mass/Vol] 0.98 mg/dL Normal 0.52-1.25 [facility] Comment on above: Performed By: #### H EMDF, CMP3, ETOH4, CK3 #### [facility] [address], [place] GFR/1.73 sq M predicted among blacks MDRD (S/P/Bld) [Vol rate/Area] 70.5 mL/min/{1.73_m2} Normal >60 [facility] Comment on above: Performed By: #### H EMDF, CMP3, ETOH4, CK3 #### [address] [phone] GFR/1.73 sq M predicted among non-blacks MDRD (S/P/Bld) [Vol rate/Area] 60.9 mL/min/{1.73_m2} Normal >60 [facility] Comment on above: Result Comment: KDIG O [...] #### H EMDF, CMP3, ETOH4, CK3 #### [address] [address] Albumin [Mass/Vol] 4.2 g/dL Normal 3.5-5.0 [facility] Comment on above: Performed By: #### H EMDF, CMP3, ETOH4, CK3 #### [address] [address] Chloride [Moles/Vol] 105 mmol/L Normal 98-107 [facility] Comment on above: Performed By: #### H EMDF, CMP3, ETOH4, CK3 #### [address] [address] Potassium [Moles/Vol] 3.9 mmol/L Normal 3.5-5.1 [facility] Comment on above: Performed By: #### H EMDF, CMP3, ETOH4, CK3 #### [facility] [address], [place] Sodium [Moles/Vol] 137 mmol/L Normal 135-145 [facility] Comment on above: Performed By: #### H EMDF, CMP3, ETOH4, CK3 #### [place] [address] [place] [place], [place] Complete Urinalysison 2019 Appearance (U) Clear Normal Clear [facility] Comment on above: Result Comment: . Performed By: #### C UA2, DRGA4 #### [place] [address] [place], [place] Bacteria LM.HPF (Urine sed) [#/Area] Negative Normal Negative [facility] Comment on above: Result Comment: . Performed By: #### C UA2, DRGA4 #### [place] [address] [place], [place] Bilirubin,Urine Negative Normal Negative [facility] Comment on above: Result Comment: . Performed By: #### C UA2, DRGA4 #### [place] [address] [place], [place] Cast, Hyaline Negative Normal Negative [facility] Comment on above: Result Comment: . Performed By: #### C UA2, DRGA4 #### [place] [address] [place], [place] Color (U) Yellow Normal Lt. Yellow [facility] Comment on above: Result Comment: . Performed By: #### C UA2, DRGA4 #### [place] [address] [place], [place] Glucose Ql (U) Normal Normal Normal (<70) [facility] Comment on above: Result Comment: . Performed By: #### C UA2, DRGA4 #### [place] [address] [place], [place] Ketone,Urine Trace Abnormal Negative [facility] Comment on above: Result Comment: . Performed By: #### C UA2, DRGA4 #### [place] [address] [place], [place] Leukocytes,Urine 25 Charles/uL Abnormal Negative [facility] Comment on above: Result Comment: . Performed By: #### C UA2, DRGA4 #### [facility] [address], [place] Mucous Threads Few Normal Negative [facility] Comment on above: Result Comment: . Performed By: #### C UA2, DRGA4 #### [facility] [address], [place] Nitrites,Urine Negative Normal Negative [facility] Comment on above: Result Comment: . Performed By: #### C UA2, DRGA4 #### [facility] [address], [place] Occult Blood,Urine Negative Normal Negative [facility] Comment on above: Result Comment: . Performed By: #### C UA2, DRGA4 #### [place] [address] [place], [place] pH (U) 5.5 Normal 5.0-8.0 [facility] Comment on above: Result Comment: . Performed By: #### C UA2, DRGA4 #### [place] [address] [place], [place] Protein (U) [Mass/Vol] 20 mg/dL Abnormal Negative [facility] Comment on above: Result Comment: . Performed By: #### C UA2, DRGA4 #### [place] [address] [place], [place] RBC LM.HPF (Urine sed) [#/Area] 0 - 2 Normal 0-2 [facility] Comment on above: Result Comment: . Performed By: #### C UA2, DRGA4 #### [facility] [address], [place] Specific Pelzer,Urine > 1.030 Abnormal 1.005 - 1.030 [facility] Comment on above: Result Comment: . Performed By: #### C UA2, DRGA4 #### [facility] [address], [place] Squamous Epithelial 3 - 5 Normal 3-5 [facility] Comment on above: Result Comment: . Performed By: #### C UA2, DRGA4 #### [facility] [address] [place]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 Systolic blood pressure 182 mm[Hg] Dr. Aquiles Jones Work Phone: [facility] 08-12-2023 14:00-0500 Inhaled oxygen flow rate 2 L/min Dr. Leonie Peterson Work Phone: [facility] 08-12-2023 14:00-0500 SaO2% (BldA) [Mass fraction] 99 % Dr. Leonie Peterson Work Phone: [facility] 08-12-2023 13:28-0500 Body temperature 97.8 [degF] Dr. Leonie Peterson Work Phone: [facility] 08-12-2023 13:28-0500 Diastolic blood pressure 48 mm[Hg] Dr. Leonie Peterson Work Phone: [facility] 08-12-2023 13:28-0500 Heart rate 87 /min Dr. Leonie Peterson Work Phone: [facility] 08-12-2023 13:28-0500 Respiratory rate 18 /min Dr. Leonie Peterson Work Phone: 3(509)296-740735 [place] [address] 08-12-2023 13:28-0500 Systolic blood pressure 105 mm[Hg] Dr. Leonie Peterson Work Phone: 6(874)876-734235 [place] [address] 08-12-2023 04:00-0500 Body mass index (BMI) [Ratio] 30.3 kg/m2 Dr. Leonie Peterson Work Phone: 3(131)601-204535 [place] [address] 08-12-2023 04:00-0500 Body weight 85.[address] Leonie Peterson Work Phone: 3(214)762-320635 [place] [address] 08-05-2023 08:52-0500 Body height 167.[address] Leonie Peterson Work Phone: 8(692)349-416435 [place] [address] 08-05-2023 07:59-0500 Diastolic blood pressure 97 mm[Hg] Dr. Leonie Peterson Work Phone: 2(475)300-990435 [place] [address] 08-05-2023 07:59-0500 Heart rate 89 /min Dr. Leonie Peterson Work Phone: 4(832)716-279135 [place] [address] 08-05-2023 07:59-0500 Respiratory rate 16 /min Dr. Leonie Peterson Work Phone: 4(386)311-966835 [place] [address] 08-05-2023 07:59-0500 SaO2% (BldA) [Mass fraction] 98 % Dr. Leonie Peterson Work Phone: 7(827)031-278835 [place] [address] 08-05-2023 07:59-0500 Systolic blood pressure 112 mm[Hg] Dr. Leonie Peterson Work Phone: 2(928)018-681835 [place] [address] 08-05-2023 04:58-0500 Inhaled oxygen flow rate 2 L/min Dr. Leonie Peterson Work Phone: 8(046)324-394135 [place] [address] 08-05-2023 02:19-0500 Body height 167.[address] Leonie Peterson Work Phone: 6(022)583-880235 [place] [address] 08-05-2023 02:19-0500 Body mass index (BMI) [Ratio] 39.1 kg/m2 Dr. Leonie Peterson Work Phone: 2(314)020-289135 [place] [address] 08-05-2023 02:19-0500 Body temperature 96.9 [degF] Dr. Leonie Peterson Work Phone: 9(483)829-376235 [place] [address] 08-05-2023 02:19-0500 Body weight 109.[address] Leonie Peterson Work Phone: 3(072)771-065135 [place] [address] 06-04-2023 12:45-0400 Body height 167.[address] Leonie Peterson Work Phone: 0(491)076-082035 [place] [address] 06-04-2023 12:45-0400 Body temperature 98.6 [degF] Dr. Leonie Peterson Work Phone: 7(597)573-441735 [place] [address] 06-04-2023 12:45-0400 Diastolic blood pressure 88 mm[Hg] Dr. Leonie Peterson Work Phone: 6(148)208-380335 [place] [address] 06-04-2023 12:45-0400 Heart rate 89 /min Dr. Leonie Peterson Work Phone: 6(217)405-687335 [place] [address] 06-04-2023 12:45-0400 Inhaled oxygen flow rate 3 L/min Dr. Leonie Peterson Work Phone: 4(752)402-055735 [place] [address] 06-04-2023 12:45-0400 Respiratory rate 20 /min Dr. Leonie Peterson Work Phone: 0(489)102-039535 [place] [address] 06-04-2023 12:45-0400 SaO2% (BldA) [Mass fraction] 92 % Dr. Leonie Peterson Work Phone: 3(658)855-213735 [place] [address] 06-04-2023 12:45-0400 Systolic blood pressure 99 mm[Hg] Dr. Leonie Peterson Work Phone: 7(691)920-922735 [place] [address] 04-29-2023 14:12-0400 Body mass index (BMI) [Ratio] 35.4 kg/m2 Dr. Leonie Peterson Work Phone: 7(943)492-773935 [place] [address] 04-29-2023 14:12-0400 Body temperature 98.2 [degF] Dr. Leonie Peterson Work Phone: 4(375)303-786235 [place] [address] 04-29-2023 14:12-0400 Body weight 99.[address] Leonie Peterson Work Phone: 3(693)394-581135 [place] [address] 04-29-2023 14:12-0400 Diastolic blood pressure 82 mm[Hg] Dr. Leonie Peterson Work Phone: 9(544)613-643635 [place] [address] 04-29-2023 14:12-0400 Heart rate 78 /min Dr. Leonie Peterson Work Phone: 7(588)173-964435 [place] [address] 04-29-2023 14:12-0400 Respiratory rate 22 /min Dr. Leonie Peterson Work Phone: 2(160)359-879135 [place] [address] 04-29-2023 14:12-0400 Systolic blood pressure 128 mm[Hg] Dr. Leonie Peterson Work Phone: 0(608)461-383635 [place] [address] 04-13-2023 10:31-0400 Body height 167.[address] Leonie Peterson Work Phone: 2(910)318-199335 [place] [address] 04-13-2023 10:31-0400 Body mass index (BMI) [Ratio] 35.8 kg/m2 Dr. Leonie Peterson Work Phone: 0(627)968-045335 [place] [address] 04-13-2023 10:31-0400 Body temperature 97.9 [degF] Dr. Leonie Peterson Work Phone: 1(705)578-912935 [place] [address] 04-13-2023 10:31-0400 Body weight 100.[address] Leonie Peterson Work Phone: 9(289)735-990535 [place] [address] 04-13-2023 10:31-0400 Diastolic blood pressure 134 mm[Hg] Dr. Leonie Peterson Work Phone: 8(617)772-453935 [place] [address] 04-13-2023 10:31-0400 Heart rate 88 /min Dr. Leonie Peterson Work Phone: 0(528)197-149335 [place] [address] 04-13-2023 10:31-0400 Inhaled oxygen flow rate 3 L/min Dr. Leonie Peterson Work Phone: 7(240)619-100990 [place] [address] 04-13-2023 10:31-0400 Respiratory rate 16 /min Dr. Leonie Peterson Work Phone: 5(028)902-973735 [place] [address] 04-13-2023 10:31-0400 SaO2% (BldA) [Mass fraction] 96 % Dr. Leonie Peterson Work Phone: 4(034)669-766435 [place] [address] 04-13-2023 10:31-0400 Systolic blood pressure 181 mm[Hg] Dr. Leonie Peterson Work Phone: 9(222)220-063335 [place] [address] 02-15-2023 17:34-0400 Diastolic blood pressure 75 mm[Hg] Dr. Leonie Peterson Work Phone: 8(723)204-941035 [place] [address] 02-15-2023 17:34-0400 Heart rate 76 /min Dr. Leonie Peterson Work Phone: 0(124)387-341935 [place] [address] 02-15-2023 17:34-0400 Respiratory rate 14 /min Dr. Leonie Peterson Work Phone: 9(787)672-683635 [place] [address] 02-15-2023 17:34-0400 SaO2% (BldA) [Mass fraction] 99 % Dr. Leonie Petesron Work Phone: 6(847)164-797335 [place] [address] 02-15-2023 17:34-0400 Systolic blood pressure 106 mm[Hg] Dr. Leonie Peterson Work Phone: 7(069)666-489635 [place] [address] 02-15-2023 14:53-0400 Body mass index (BMI) [Ratio] 36.6 kg/m2 Dr. Leonie Peterson Work Phone: 5(782)786-158735 [place] [address] 02-15-2023 14:53-0400 Body temperature 98 [degF] Dr. Leonie Peterson Work Phone: 8(288)059-494835 [place] [address] 02-15-2023 14:53-0400 Body weight [address] Leonie Petesron Work Phone: 8(999)162-574335 [place] [address] 02-15-2023 13:00-0400 Body mass index (BMI) [Ratio] 35.6 kg/m2 Dr. Leonie Peterson Work Phone: 7(921)123-761235 [place] [address] 02-15-2023 13:00-0400 Body weight 100.[address] Leonie Peterson Work Phone: [facility] 02-15-2023 13:00-0400 Diastolic blood pressure 73 mm[Hg] Dr. Leonie Peterson Work Phone: [facility] 02-15-2023 13:00-0400 Heart rate 89 /min Dr. Leonie Peterson Work Phone: [facility] 02-15-2023 13:00-0400 Inhaled oxygen flow rate 3 L/min Dr. Leonie Peterson Work Phone: [facility] 02-15-2023 13:00-0400 Respiratory rate 18 /min Dr. Leonie Peterson Work Phone: [facility] 02-15-2023 13:00-0400 SaO2% (BldA) [Mass fraction] 9 % Dr. Leonie Peterson Work Phone: [facility] 02-15-2023 13:00-0400 Systolic blood pressure 124 mm[Hg] Dr. Leoine Peterson Work Phone: [facility] 10-22-2022 15:58-0500 Body height 167.64 cm [facility] 10-22-2022 15:58-0500 Body mass index (BMI) [Ratio] 33.9 kg/m2 [facility] 10-22-2022 15:58-0500 Body temperature 97 [degF] [facility] 10-22-2022 15:58-0500 Body weight 95.25 kg [facility] 10-22-2022 15:58-0500 Diastolic blood pressure 86 mm[Hg] [facility] 10-22-2022 15:58-0500 Heart rate 85 /min [facility] 10-22-2022 15:58-0500 Respiratory rate 18 /min [facility] 10-22-2022 15:58-0500 SaO2% (BldA) [Mass fraction] 100 % [facility] 10-22-2022 15:58-0500 Systolic blood pressure 122 mm[Hg] [facility] 07-30-2022 15:57-0400 Respiratory rate 18 /min [facility] 07-30-2022 15:57-0400 SaO2% (BldA) [Mass fraction] 97 % [facility] 07-30-2022 14:34-0400 Heart rate 98 /min [facility] 07-30-2022 14:03-0400 Inhaled oxygen flow rate 3 L/min [facility] 07-30-2022 12:33-0400 Body height 167.64 cm [facility] Work Phone: 07-30-2022 12:33-0400 Body mass index (BMI) [Ratio] 32.9 kg/m2 [facility] 07-30-2022 12:33-0400 Body temperature 97.8 [degF] [facility] 07-30-2022 12:33-0400 Body weight 92.53 kg [facility] 07-30-2022 12:33-0400 Diastolic blood pressure 93 mm[Hg] [facility] 07-30-2022 12:33-0400 Systolic blood pressure 140 mm[Hg] [facility] 04-13-2020 18:51-0400 Body Temperature 98.4 [degF] [facility] [place] 04-13-2020 18:51-0400 BP Diastolic 84 mm[Hg] [facility] [place] 04-13-2020 18:51-0400 BP Systolic 145 mm[Hg] [facility] [place] 04-13-2020 18:51-0400 Pulse (Heart Rate) 79 /min [facility] 04-13-2020 18:51-0400 Pulse Oximetry 95 % [facility] [place] 04-13-2020 18:51-0400 Respiratory Rate 18 /min [facility] 04-13-2020 09:30-0400 BMI (Body Mass Index) 16.94 kg/m2 [facility] 04-13-2020 09:30-0400 Body weight 47.6 kg Tommie Odonnell [facility] PATRICIA Comment on above: pt states she has lost weight r/t daily cocaine use over the past year 04-13-2020 08:58-0400 Height 167.6 cm Tommie Longoria [facility] PATRICIA 06-12-2019 00:29-0400 Body temperature 37.0 degrees [facility] Comment on above: Result Comment: NOTE: PATIENT RESULTS AR E NOT CORRECTED FOR TEMPERATURE. Performed By: #### V FPA3 #### [facility] [id number] [place] [address] Encounters Encounter Date Encounter Type Care Provider Facility Start: 07-12-2025 End: 07-12-2025 ambulatory [facility] Facility:[facility] Start: 07-12-2025 Patient encounter procedure LEONIE [facility] Start: 06-22-2025 End: 06-22-2025 ambulatory CHRISTA FRANZ Facility:[facility] Start: 06-01-2025 End: 06-01-2025 [facility] Start: 05-11-2025 ambulatory [facility] Facility:[facility] Start: 05-11-2025 End: 05-11-2025 ambulatory HAYLEE WANG Facility:[facility] Start: 04-09-2025 End: 04-09-2025 ambulatory ELI BRAGG Facility:[facility] Start: 03-23-2025 End: 03-23-2025 ambulatory CHRISTA FRANZ Facility:[facility] Start: 03-01-2025 End: 03-01-2025 [facility] Start: 02-23-2025 End: 02-23-2025 ambulatory CHRISTA FRANZ Facility:[facility] Start: 02-05-2025 ambulatory HAYLEE WANG Facil ity:[facility] Start: 02-05-2025 End: 02-05-2025 ambulatory HAYLEE WANG Facility:[facility] Start: 02-02-2025 End: 02-02-2025 ambulatory TRACEY GOINS Facility:[facility] Start: 01-01-2025 End: 01-01-2025 ambulatory ELI OLDER Facility:[facility] Start: 12-21-2024 End: 12-21-2024 ambulatory ELHAM DOMINGUEZ Facility:[facility] Start: 12-18-2024 End: 12-18-2024 ambulatory SALYERSVILLE OLDER Facility:[facility] Start: 12-11-2024 End: 12-11-2024 Emergency department patient visit Titi Jesus Facility:[facility] Start: 12-11-2024 End: 12-11-2024 ambulatory SALYERSVILLE OLDER Facility:[facility] Start: 12-10-2024 End: 12-10-2024 ambulatory [facility] Facility:[facility] Start: 11-23-2024 Non-patient / Non-visit Dr. Stephenie velasco MD -[facility] Work Phone: Start: 11-23-2024 Non-patient / Non-visit Dr. Elizabeth Corley MD -[facility] Start: 11-22-2024 Non-patient / Non-visit Dr. Elizabeth Kenny MD [facility] Work Phone: Start: 11-21-2024 Non-patient / Non-visit Dr. Elizabeth Kenny MD [facility] Work Phone: Start: 11-20-2024 Non-patient / Non-visit Dr. Elizabeth Kenny MD [facility] Work Phone: Start: 11-20-2024 Non-patient / Non-visit Dr. Zeyad Urbina own [facility] Start: 11-19-2024 Non-patient / Non-visit Dr. Elizabteh Kenny MD [facility] Work Phone: Start: 11-19-2024 Non-patient / Non-visit Dr. Zeyad Urbina own [facility] Start: 11-18-2024 ambulatory Alexia Jeffery [facility] Start: 11-18-2024 Non-patient / Non-[facility] Start: 11-17-2024 End: 11-17-2024 ambulatory Alexia Gil Facility:[facility] Start: 11-17-2024 End: 11-17-2024 Non-patient / Non-visit Dr. Alexia Gil MD [facility] Work Phone: Start: 11-17-2024 ambulatory Stephenie Yu Facility:[facility] Start: 11-17-2024 End: 11-23-2024 Evaluation and management of inpatient Stepheniegreg Yu Facility:[facility] Start: 11-17-2024 ambulatory [facility] Facility:[facility] Start: 11-09-2024 End: 11-09-2024 ambulatory MYKE CHONG Facility:[facility] Start: 10-30-2024 End: 10-30-2024 ambulatory ELI BRAGG Facility:[facility] Start: 10-27-2024 End: 10-27-2024 ambulatory YUE FRANKS [facility] Start: 09-21-2024 End: 09-21-2024 ambulatory [facility] Start: 09-15-2024 End: 09-15-2024 ambulatory YUE FRANKS [facility] Start: 08-21-2024 ambulatory Leonie Ganta Facility:[facility] Start: 08-18-2024 End: 08-18-2024 ambulatory DOMINICK PAYTON Facility:[facility] Start: 08-14-2024 End: 08-14-2024 ambulatory LISS STUBBS Facility:[facility] Start: 08-07-2024 End: 08-09-[address] [facility] Facility[facility] Start: 07-31-2024 End: 07-31-2024 ambulatory [facility] Facility:[facility] Start: 07-29-2024 End: 07-29-2024 ambulatory HAYLEE WANG Facility:[facility] Start: 07-22-2024 Encounter for other preprocedural examination ELHAM DOMINGUEZ [facility] Start: 07-22-2024 End: 07-22-2024 ambulatory ELHAM RAMANITALO GARCIAVinnie Facility:[facility] Start: 07-21-2024 End: 07-21-2024 ambulatory TRACEY GOINS Facility:[facility] Start: 06-23-2024 End: 06-23-2024 ambulatory DOMINICK PAYTON Facility:[facility] Start: 04-29-2024 End: 04-29-2024 ambulatory Stef Donald Facility:[facility] Start: 04-14-2024 ambulatory Leonie Peterson [facility] Start: 03-30-2024 ambulatory Stef Bennett Facility :[facility] Start: 03-24-2024 End: 03-24-2024 ambulatory DOMINICK PAYTON Facility:[facility] Start: 12-17-2023 End: 12-17-2023 ambulatory DOMINICKUSMAN PAYTON Facility:[facility] Start: 11-21-2023 End: 11-21-2023 Emergency department patient visit Dr. Aquiles Jones Work Phone: [facility] Work Phone: Start: 11-10-2023 End: 11-10-2023 Emergency department patient visit Dr. Aquiles Jones Work Phone: [facility] Work Phone: Start: 11-05-2023 End: 11-05-2023 ambulatory DOMINICK RASHAUN BAUGHIT Facility:[facility] Start: 08-13-[address] Aquiles gupta Work Phone: [facility] Start: 08-12-2023 Non-patient / Non-visit Dr. Sanjuana Peterson Work Phone: [facility] Work Phone: Start: 08-12-2023 End: 08-12-2023 Non-patient / Non-visit Dr. Aquiles Jones Work Phone: [facility] Work Phone: Start: 08-11-2023 Non-patient / Non-visit Dr. Sanjuana Peterson Work Phone: [facility] Work Phone: Start: 08-10-2023 Non-patient / Non-visit Dr. Sanjuana Peterson Work Phone: [facility] Work Phone: Start: 08-09-2023 Non-patient / Non-visit Dr. Sanjuana Peterson Work Phone: [facility] Work Phone: Start: 08-08-2023 Non-patient / Non-visit Dr. Sanjuana Peterson Work Phone: [facility] Work Phone: Start: 08-07-2023 Non-patient / Non-visit Dr. Sanjuana Peterson Work Phone: [facility] Start: 08-07-2023 Non-patient / Non-visit Dr. Sanjuana Peterson Work Phone: [facility] Work Phone: Start: 08-06-2023 Non-patient / Non-visit Dr. Sanjuana Peterson Work Phone: [facility] Start: 08-06-2023 Non-patient / Non-visit Dr. Sanjuana Peterson Work Phone: [facility] Work Phone: Start: 08-05-2023 Non-patient / Non-visit Dr. Sanjuana Peterson Work Phone: [facility] Start: 08-05-2023 End: 08-12-2023 Evaluation and management of inpatient Dr. Leonie Peterson Work Phone: [facility] Work Phone: Start: 08-05-2023 End: 08-12-[address] Leonie Peterson Work Phone: [facility] Work Phone: Start: 06-24-2023 End: 06-24-[address] Leonie Peterson Work Phone: [facility] Work Phone: Start: 06-24-2023 End: 06-24-[address] Leonie Peterson Work Phone: [facility] Work Phone: Start: 06-20-[address] Luba Peterson Work Phone: [facility] Work Phone: Start: 06-17-2023 End: 06-17-[address] Leonie Peterson Work Phone: [facility] Work Phone: Start: 06-17-2023 End: 06-17-[address] Leonie Peterson Work Phone: [facility] Work Phone: Start: 06-04-2023 End: 06-04-2023 Emergency department patient visit Dr. Leonie Peterson Work Phone: [facility] Work Phone: Start: 05-29-[address] Luba Peterson Work Phone: [facility] Work Phone: Start: 05-23-2023 End: 05-23-[address] Leonie Peterson Work Phone: [facility] Work Phone: Start: 04-29-2023 End: 04-29-[address] Leonie Peterson Work Phone: [facility] Work Phone: Start: 04-13-2023 End: 04-13-2023 Emergency department patient visit Dr. Leonie Peterson Work Phone: [facility] Work Phone: Start: 02-15-2023 End: 02-15-2023 Emergency department patient visit Dr. Leonie Peterson Work Phone: [facility] Work Phone: Start: 02-15-[address] Leonie Peterson Work Phone: [facility] Start: 02-15-2023 End: 02-15-2023 Admission to same day surgery center Dr. Leonie Peterson Work Phone: [facility] Start: 02-15-2023 End: 02-15-[address] Leonie Peterson Work Phone: [facility] Work Phone: Start: 01-29-2023 End: 01-29-[address] Leonie Peterson Work Phone: [facility] Work Phone: Start: 01-14-2023 End: 01-14-[address] Leonie Peterson Work Phone: [facility] Work Phone: Start: 01-14-2023 End: 01-14-[address] Leonie Peterson Work Phone: [facility] Start: 10-22-2022 End: 10-22-2022 Emergency department patient visit [facility] Start: 09-19-2022 End: 09-19-[address] [facility] Work Phone: Start: 09-19-2022 End: 09-19-[address] [facility] Start: 07-30-2022 End: 07-30-2022 Emergency department patient visit [facility] Start: 04-13-2020 End: 04-13-2020 Emergency department patient visit Tommie Odonnell Work Phone: [facility] Emergency Dept Comment on above: Cocaine abuse (HCC) (Primary Dx) Start: 12-12-2019 End: 12-13-2019 Emergency department patient visit LUCIANO LAWRENCE Facility:[facility] Start: 01-05-2019 End: 01-05-2019 Patient encounter procedure Myke Burdick Facility:[facility] Start: 12-12-2018 Patient encounter procedure Myke Burdick Facility:[facility] Start: 11-18-2018 Patient encounter procedure Myke Burdick Facility:[facility] Procedures Date Procedure Procedure Detail Performing Clinician Start: 06-22-2025 Echocardiography LORI DOMINGUEZ Start: 12-11-2024 CT angiography of ch est with contrast Dr. Leonie Peterson MD Work Phone: Start: 11-23-2024 Cardiovascular stres s test using pharmacologic stress agent Dr. Lenoie Peterson MD Work Phone: Start: 11-19-2024 Legionella pneumophi la antigen assay Dr. Leonie Peterson MD Work Phone: Start: 11-19-2024 Streptococcus pneumo niae antigen assay Dr. Leonie Peterson MD Work Phone: Start: 11-19-2024 CT angiography of ch est with contrast Dr. Leonie Peterson MD Work Phone: Start: 11-17-2024 SARS-CoV-2, Influenz a & RSV (PCR) Dr. Leonie Peterson MD Work Phone: Start: 11-17-2024 X-ray of chest, PA a nd lateral views Dr. Leonie Peterson MD Work Phone: Start: 06-23-2024 Follow-up visit Follow Up PRASANTH PAYTON Start: 11-21-2023 Plain chest X-ray Dr. Tino Jones Work Phone: Start: 11-21-2023 CT of abdomen and pe lvis without contrast Dr. Aquiles Jones Work Phone: Start: 11-10-2023 X-ray of both feet Dr. Aquiles Jones Work Phone: Start: 08-08-2023 Pulmonary ventilatio n perfusion study Dr. Leonie Peterson Work Phone: Start: 08-05-2023 Cardiovascular stres s test using pharmacologic stress agent Dr. Leonie Peterson Work Phone: Start: 08-05-2023 Plain chest X-ray Dr. Taryn Peterson Work Phone: Start: 06-17-2023 Ultrasound elastogra phy of liver Dr. Leonie Peterson Work Phone: Start: 06-04-2023 Plain x-ray of pelvi s and lower extremity Dr. Leonie Peterson Work Phone: Start: 05-23-2023 Diagnostic radiograp hy of abdomen, decubitus and erect Dr. Leonie Peterson Work Phone: Start: 04-13-2023 Plain x-ray of pelvi s and lower extremity Dr. Leonie Peterson Work Phone: Start: 02-15-2023 Plain chest X-ray Dr. Taryn Peterson Work Phone: Start: 02-15-2023 CT cervical spine wi thout contrast Dr. Leonie Peterson Work Phone: Start: 02-15-2023 CT of head without contrast Dr. Leonie Peterson Work Phone: Start: 02-15-2023 Plain X-ray of shoulder Dr. Leonie Peterson Work Phone: Start: 02-15-2023 Plain x-ray of wrist Dr Juan Antonio Peterson Work Phone: Start: 10-22-2022 X-ray of cervical [...] int rlmnr crv/thrc w/img gdn Myke Burdick Viral antigen assay Viral antigen assay Plan of Treatment Date Care Activity Detail Author Start: 12-11-2024 End: 12-11-2024 [facility] Start: 12-11-2024 [facility] Start: 11-23-[address] [facility] Start: 11-22-2024 [facility] Start: 11-20-2024 [facility] Start: 11-19-[address] [facility] Start: 11-19-[address] [facility] Start: 11-17-[address] [facility] Start: 11-17-2024 Following clinical pathway protocol [facility] Start: 11-17-2024 Assessment of risk of venous thromboembolism [facility] Start: 11-17-2024 Insertion of catheter into peripheral vein [facility] Start: 11-17-2024 Measuring intake and output [facility] Start: 11-17-[address] [facility] Start: 11-17-2024 Providing care according to standard [facility] Start: 11-17-2024 Provision of activity privileges [facility] Start: 11-17-2024 Referral to occupational therapist [facility] Start: 11-17-[address] [facility] Start: 11-17-2024 [facility] Start: 11-17-[address] [facility] Start: 11-17-[address] [facility] Start: 11-17-2024 [facility] Start: 11-21-2023 [facility] Start: 11-10-2023 [facility] Start: 08-12-[address] [facility] Start: 08-08-2023 Care planning and problem solving actions [facility] Start: 08-08-2023 Referral to occupational therapist [facility] Start: 08-08-[address] [facility] Start: 08-08-[address] [facility] Start: 08-06-2023 End: 08-07-2023 [facility] Start: 08-05-2023 [facility] Start: 08-05-2023 Following clinical pathway protocol [facility] Start: 08-05-2023 Assessment of risk of venous thromboembolism [facility] Start: 08-05-2023 Care of central venous catheter [facility] Start: 08-05-[address] [facility] Start: 08-05-2023 Insertion of catheter into peripheral vein [facility] Start: 08-05-2023 Introduction of urinary catheter [facility] Start: 08-05-2023 Measuring intake and output [facility] Start: 08-05-[address] [facility] Start: 08-05-2023 Providing care according to standard [facility] Start: 08-05-2023 Provision of activity privileges [facility] Start: 08-05-[address] [facility] Start: 08-05-2023 [facility] Start: 08-05-2023 Hospital admission, emergency, from emergency room, medical nature [facility] Start: 08-05-[address] [facility] Start: 08-05-[address] [facility] Start: 08-05-[address] [facility] Start: 08-05-2023 CT angiography of chest with contrast CTA Chest W/WO Contrast [facility] Start: 08-05-2023 [facility] Start: 04-13-2023 Plain x-ray of pelvis and lower extremity HIP, UNI W/ Pelvis 2-[address] [facility] Start: 04-13-2023 XR Pelvis and Hip Views [facility] Start: 01-29-[address] [facility] Start: 01-14-2023 Acute hepatitis 2000 panel - Serum [facility] Start: 01-14-2023 Angiotensin converting enzyme [Enzymatic activity/volume] in Serum or Plasma [facility] Start: 01-14-2023 Ceruloplasmin [Mass/volume] in Serum or Plasma [facility] Start: 01-14-2023 Copper [Moles/volume] in Serum or Plasma [facility] Start: 01-14-2023 Haptoglobin [Mass/volume] in Serum or Plasma [facility] Start: 01-14-2023 Hepatitis A virus Ab panel - Serum [facility] Start: 01-14-2023 Hepatitis B virus genotype [Identifier] in Serum or Plasma by SHEELA with probe detection [facility] Start: 01-14-2023 Hepatitis C virus RNA assay [facility] Start: 01-14-2023 Smooth muscle Ab [Presence] in Serum [facility] Start: 01-14-2023 [facility] Start: 07-30-2022 [facility] Start: 05-31-2020 Influenza vaccination Flu vaccine (#1) [place], [place] Start: 01-19-2006 Screening for malignant neoplasm of breast Breast cancer screen [place] Start: 01-19-2006 Screening for malignant neoplasm of colon Colon cancer screen colonoscopy [place] Start: 01-19-2006 Shingles Vaccine (1 of 2) Shingles Vaccine (1 of 2) [place], [place] Start: 1996 Lipid panel Lipid screen [place] Start: 01-19-1977 Screening for malignant neoplasm of cervix Cervical cancer screen [place] Start: 01-19-1975 DTaP/Tdap/Td vaccine (1 - Tdap) DTaP/Tdap/Td vaccine (1 - Tdap) [place] Start: 01-19-1971 HIV screening HIV screen [place], [place] Start: 1956 Creatinine measurement Creatinine monitoring [place], [place] Start: 1956 Hepatitis C screening Hepatitis C screen [place], [place] Start: 1956 Potassium monitoring Potassium monitoring [place] Hepatic function panel [facility] Hepatitis A virus Ab [Presence] in Serum [facility] Hepatitis A virus Ig M Ab [Presence] in Serum [facility] Hepatitis B core ant ibody measurement, IgM type [facility] Hepatitis B surface antigen measurement [facility] Hepatitis C antibody measurement [facility] Hepatitis C virus ge notype [Identifier] in Blood by SHEELA with probe detection [facility] Liver stiffness by US.transient elastography [facility] Neutrophil cytoplasm ic Ab.classic [Units/volume] in Serum [facility] P-ANCA measurement [facility] Patient Education [facility] Work Phone: Patient referral [facility] Work Phone: PCR for Hepatitis C [facility] T4 free measurement [facility] Thyroid stimulating hormone measurement [facility] Triiodothyronine, fr ee measurement [facility] Immunizations Immunization Date Immunization Notes Care Provider Fa luis 10-19-2021 Covid (Pfizer) Dr. Leonie nuñez Work Phone: [facility] 2021 Covid (Pfizer) Dr. Leonie nuñez Work Phone: [facility] 12-23-2020 Covid (Pfizer) Dr. Leonie nuñez Work Phone: [facility] 08-17-2015 pneumococcal polysaccharide vaccine, [address] Leonie Peterson Work Phone: [facility] Payers Date Payer Category Payer Self-pay [id number] 2021 Medicare [id number] 2017 Medicaid [id number] 2017 Medicare [id number] 2016 Unknown [facility] MEDICAID [id number] 2016-Present [phone] CLAIMS DEPARTMENT [address] [place] [address] [id number]. [id number] 1956 Unknown [id number] 2..[id number] 1955 Unknown [id number] 2.16840.1.831310.3.579.2.356 1955 Unknown [id number] 2..840.1.410221.3.579.2.356 1955 Unknown [id number] 2.16.840.1.681173.3.579.2.732 Medicare [id number] Unknown [id number] 2.16.840.1.603520.3.579.2.462 Unknown [id number] 2.16.840.1.577642.3.579.2.462 Unknown [id number] 2.16.840.1.953135.3.579.2.462 Unknown [id number] 2.16.840.1.039321.3.579.2.462 Unknown [id number] 2.16.840.1.965570.3.579.2.462 Unknown [id number] 2.16.840.1.584788.3.579.2.462 Unknown [id number] 2.16.840.1.795301.3.579.2.462 Unknown [id number] 2.16.840.1.559183.3.579.2.462 Unknown [id number] 2.16.840.1.747815.3.579.2.462 Unknown [id number] 2.16.840.1.989852.3.579.2.462 Unknown [id number] 2.16.840.1.001394.3.579.2.462 Unknown [id number] 2.16.840.1.847816.3.579.2.462 Unknown [id number] 2.16.840.1.432132.3.579.2.462 Unknown [id number] 2.16.840.1.180667.3.579.2.462 Unknown [id number] 2.16.840.1.573696.3.579.2.462 Unknown [id number] 2.16.840.1.463924.3.579.2.462 Unknown [id number] 2.16.840.1.055850.3.579.2.462 Unknown [id number] 2.16.840.1.048006.3.579.2.462 Unknown [id number] 2.16.840.1.947969.3.579.2.462 Social History Date Type Detail Facility Start: 04-13-2020 Tobacco smoking stat [facility] Current every day smoker [place], [place] History of tobacco use Cigarette Smoker M [place], [place] Start: 04-13-2020 Cigarettes smoked current (pack per day) - Reported [place] Start: 04-13-2020 Tobacco use and exposure Never used [place] Start: 04-13-2020 Alcohol intake Current drinke r of alcohol (finding) [place] Sex Assigned At Not on file [place] Exposure to SARS-CoV -2 (event) Not sure [place] Start: 07-30-2022 End: 11-21-2023 Tobacco smoking status NHIS Unknown if ever smoked [facility] Start: 09-12-2020 None [facility] Start: 09-12-2020 Alone [facility] Start: 02-08-2021 Cigarettes [facility] Start: 1955 Sex Assigned At Female [facility] Start: 12-11-2024 Tobacco smoking stat us NHIS Ex-smoker (finding) [facility] Start: 12-11-2024 Sex Female (finding) [facility] Medical Equipment Procedure Code Equipment Code Equipment Origin al Text Equipment Identifier Dates Colonoscopy Ligation clip, metallic ([id number] [facility] Start: 04-29-2024 Goals Date Patient Goal Desired Activity /State Functional Status Date Assessment Result Facility 11-23-2024 Functional status Ambulates [facility] Work Phone: 08-12-2023 Functional status Ambulates;Bathroom Priv ilege [facility] Work Phone: Mental Status Date Assessment Result Facility 12-11-2024 Cognitive function Level Of Cons ciousness Awake;Alert;Appropriate;Follow s Commands [facility] Work Phone: 11-23-2024 Cognitive function Voice/Name [facility] Work Phone: 08-12-2023 Cognitive function Voice/Name [facility] Work Phone: 08-05-2023 Cognitive function Voice/Name [facility] Work Phone: 10-22-2022 Cognitive function Level Of Cons ciousness Awake;Alert;Appropriate;Follow s Commands [facility] Work Phone: Clinical Notes 10-22-2022 to 07-12-2025 Note Date & Type Note Facility 07-12-2025 Note [facility] 06-22-2025 Note [facility] 06-01-2025 Note [facility] 05-11-2025 Note [facility] 05-11-2025 Note [facility] 04-16-2025 Note [facility] 04-09-2025 Note [facility] 03-23-2025 Note [facility] 03-01-2025 Note [facility] 02-05-2025 Note [facility] 02-05-2025 Note [facility] 01-01-2025 Note [facility] 12-21-2024 Note [facility] 12-18-2024 Note [facility] 12-11-[address] [facility] 12-11-2024 Radiology Diagnostic study note [facility] Services [address], [place] [address] CTA Chest W/WO Contrast MR#: [id number] Acct: [id number] Name: DIANNE ALVES Rep #: [id number] : 1955 F 69 From: Xiomara Do MD PCP: Dr. Leonie Peterson MD Status: REG E R Study:CTA Chest W/WO Contrast Date of Exam: 12/11/24 Exam# [id number] Ordering Dr: Remedios Jesus MD PROCEDURE: CTA [...] use of iterative reconstruction technique). Reading Location: [place] CC: Dr. Leonie Peterson MD; Dr. Titi Jesus MD ~ Drill Runner: Signed [facility] 12-11-2024 Discharge summary Note Date/Time December 11, 2024 7:36pm [facility] Medical Records Department [address] [place] [address] Emergency Department Summary 12/11/24 MR#: [id number] Acct: [id number] Name: DIANNE ALVES Rep #:[id number] : 1955 69 From: Titi Jesus MD PCP: Dr. Leonie Peterson MD Status:REG E R Location: ED HPI History of Present Illness Chief Complaint: Abn Labs Informant: patient Onset/Context/Timing Onset: Days Context: Gradual Onset Timing: Continuous Current Severity: Mild Maximum Severity: Mild Narrative Narrative: 69-year-old female history of prior ME, hep C, COPD, hypertension, prior lower extremity [...] similar symptoms: No Recent Illness/Hospitalization: Yes [facility] Medical History Type 2 acute myocardial infarction [...] all 4 extremities. 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 Equal symmetrical radial pulses. Dorsi plantarflexion [...] % (Auto) 49.1 Lymph % (Auto) 37.9 Rooks % (Auto) 7.5 Eos % (Auto) 4.8 [...] use of iterative reconstruction technique). Reading Location: [place] Rhythm Strip Rhythm Strip: Sinus Rhythm Rate: 86 Ectopy: None EKG Initial EKG: Attestation: I personally reviewed and interpreted this EKG as follows: Interpretation: Sinus Rhythm and No Acute Injury Pattern Comments: Normal sinus rhythm rate 86 no acute signs of ME nor ischemia. Discharge Plan Triage Chief Complaint: Abn Labs ED Provider: Titi Jesus Dx/Rx/DC Orders Clinical Impression: Chest pain, History of deep vein thrombosis, History of COPD Instructions: ED Chest Pain, Uncertain Cause Prescriptions: No Action furosemide 20 mg tablet 20 mg PO DAILY Breztri Aerosphere 160-9-4.8 mcg/actuation HFA [...] WHEEZING) Qty: 90 0RF Primary Care Provider: Leonie Peterson Referrals: Leonie Peterson MD [Primary Care Provider] - As Needed Activity Restrictions/Additional Instructions: See CAT scan your chest look good. No blood clot. Your other tests look good tonight. Follow-up with your doctor as needed. Print Language: Qatari Disposition Disposition: Home, Self Care What to do if you have Problems For any increased pain, shortness of breath, bleeding, nausea or vomiting, chestpain, or any unexpected problems, contact your Primary Care Provider. Call [facility] ([phone]) or report to the closest Emergency Room. Call 911 if necessary. 12/11/241935 <Electronically signed by Titi Jesus MD> Cosigner Signature (if applicable): CC: Dr. Leonie Peterson MD ~ Signed [facility] Work Phone: 1(545) 250-515403-14-2025 [facility]03-14-2025 [facility]2025 [facility] 11-23-2024 [facility] Medical Records Department [address] [place] [address] Discharge Summary 11/23/24 1458 MR#: [id number] Acct: [id number] Name: DIANNE ALVES Rep #: [id number] : 1955 69 From: Stephenie Yu MD PCP: Dr. Leonie Peterson MD Status:ADM IN Location: [place] [address] Providers Date of Admission: 11/17/24 Date of Discharge: 11/23/24 Primary Care Physician: Dr. Leonie Peterson MD Consultations 11/19/24 09:34 Consult: Sealing Machine Operator / Pulmonary Medicine Routine Consulting Provider: Intensivists/Pulmonary [...] cannula chronically, GERD, hep C who presented [facility] ED 09/16/2025 due to shortness of breath [...] 14.8, Hct 46.5, MCV (more content not included)...[facility]02-18-2025 Evaluation note* Diagnosis Onset Date Resolution Status Admit Date Influenza A acute October 2:58pm Acute on chronic hypoxic respiratory failure resolved October 2:58pm Type 2 acute myocardial infarction inactive November 17 2:58pm [facility] Work Phone: 1(271) 263-551302-10-2025 [facility]2025 [facility]-31-2025 [facility] 10-27-2024 NoteHNO ID: [id number] Author: YUE FRANKS PA-C Service: ? Author Type: Physician Law Writer Type: Progress Notes Filed: 10/27/2024 10:59 Note Text: Yue Franks PA-C Department of Orthopaedics October 27, [...] needed, return to clinic with any concerns. [facility]-17-2024 NoteHNO ID: [id number] Author: YUE FRANKS PA-C Service: ? Author Type: Physician Law Writer Type: Progress Notes Filed: 09/15/2024 11:13 Note Text: Yue Franks PA-C Department of Orthopaedics September 15, [...] repeat xrays of shoulder at that time. [facility]-2024 [facility]11-29-2024 [facility]Fire[facility]11-26-2024 [facility]Fire[facility]11-20-2024 NoteHNO ID: [id number] Author: DOMINICK PAYTON MD Service: ? Author Type: Physician Type: Progress Notes Filed: 08/19/2024 08:50 Note Text: PAIN EVALUATION 08/18/2024 1041 Pain Level: 8 Description: Sharp;Burning;Aching Frequency: Continuous Dianne E Long comes in today for first postoperative visit [...] AND Elbow Surgeon Department of Orthopaedic Surgery [facility]11-19-2024 NoteHNO ID: [id number] Author: DIOGENES VARELA Tech Service: ? Author Type: Artificial Candy Maker Type: Progress Notes Filed: 08/19/2024 08:50 Note [...] Negative for diabetic associated symptoms HEMATOLOGY: [facility]11-15-2024 [facility]Fire[facility]11-15-2024 [facility]Fire[facility]11-12-2024 [facility]Fire[facility]11-10-2024 NoteHNO ID: [id number] Author: TALON BRITT MD Service: General Internal [...] II avoid nephrotoxic drugs Discharge home with [facility] Med reviewed PERTINENT ROS: All other reviewed [...] organomegaly EXTREMITIES: no edema SIGNATURE: Talon Britt [facility] [id number] NoteHNO ID: [id number] Author: TALON BRITT MD Service: General Internal [...] organomegaly EXTREMITIES: no edema SIGNATURE: Talon Britt [facility] HospitalKenekosc04-38-3251 NoteHNO ID: [id number] Author: ISHAAN WALTERS MD Service: ? Author [...] August 07, 2024 TIME: 4:48 PM CSN: [id number] NoteHNO ID: [id number] Author: DAIJA LEDEZMA RT(Elham) Service: ? Author [...] PATIENT PRESENTS WITH AN IMPLANTABLE OR ATTACHED TRAFFIC POLICE OFFICER: No RADIOLOGY DEPARTMENT: General X-ray: Exam(s) Completed: Upper Extremity X-Ray(s): Shoulder, AP / TRUE AP left PERIPHERAL IV DATA: Not applicable SIGNED BY: RT Aysha(R) August 07, 2024 4:29 PMMer[facility] [id number] NoteHNO ID: [id number] Author: ESTEVAN MUNGUIA APRN.CRNA Service: Anesthesiology Author Type: Nurse Clinical Trial Coordinator Type: Anesthesia Procedure Notes Filed: 08/07/2024 13:11 Note Text: ANESTHESIOLOGY PROCEDURE NOTE Airway General Information Procedure Start Time/Medication Administration: 08/07/2024 1:01 PM Procedure End Time: 08/07/2024 1:10 PM Patient location during procedure: OR Timeout Performed Pre-procedure: timeout performed Consent Obtained: Yes Patient identity confirmed: arm band Staffing AIRPLANE PILOT CROP DUSTING: Estevan Munguia APRN.AIRPLANE PILOT CROP DUSTING Performed by: LEX Indications and Patient Condition [...] no Airway not difficult SIGNATURE: Estevan Munguia APRN.AIRPLANE PILOT CROP DUSTING PATIENT NAME: Dianne Alves DATE: August 07, 2024 TIME: 1:10 PM CSN: [id number] [id number] [facility]10-30-2024 [facility]-2024 [facility]-25-2024 [facility]Fire[facility]10-22-2024 Note [facility]09-25-2024 NoteHNO ID: [id number] Author: DOMINICK PAYTON MD Service: ? Author [...] AND Elbow Surgeon Department of Orthopaedic Surgery [facility]07-31-2024 [facility] Medical Records Department [address] [place] [address] History Physical Exam 04/29/24912 MR#: [id number] Acct: [id number] Name: DIANNE ALVES Rep #: [id number] : 1955 69 From: Stef Friend DO PCP: Dr. Leonie Peterson MD Status:[facility] Location: [address] - General General Date of Admission: [...] cramping, chest pain or shortness of breath. [facility] Medical History (Updated 04/27/24 @ 10:49 by [...] Unknown History mcg-formot 4.8 mcg/actuation HFA inhaler (Breztri Aerosphere) gabapentin 300 mg capsule 300 mg PO [...] sweating, cold or heat (more content not included)...[facility]06-25-2024 NoteO ID: [id number] Author: DOMINICK PAYTON MD Service: ? Author [...] AND Elbow Surgeon Department of Orthopaedic Surgery [facility]06-25-2024 NoteHNO ID: [id number] Author: LYNNE PEÑA LPN Service: ? Author Type: LICENSED NURSE Type: Progress Notes Filed: 03/24/2024 10:56 Note Text: Injection prepared per Dr. Payton's order and handed directly to him. Injection site: left shoulder Lynne Peña [facility]-2024 NoteHNO ID: [id number] Author: DOMINICK PAYTON MD Service: ? Author [...] AND Elbow Surgeon Department of Orthopaedic Surgery [facility]03-19-2024 NoteHNO ID: [id number] Author: SHADY TAMAYO Tech Service: ? Author Type: Artificial Candy Maker Type: Progress Notes Filed: 12/17/2023 10:50 Note [...] HEMATOLOGY: Negative for excessive bleeding, clots, bleeding disorders.[facility]02-11-2024 Discharge summary Author Isidro Dominguez [facility] November 10, 2023 11:08pm Note Date/Time November 10, 2023 6:57pm [facility] Medical Records Department [address] [place] [address] Emergency Department Summary 11/10/23 MR#: [id number] Acct: [id number] Name: DIANNE ALVES Rep #:[id number] : 1955 68 From: Isidro Dominguez MD PCP: Dr. Leonie Peterson MD Status:REG E R Location: ED HPI History of Present Illness Chief Complaint: Lower Extremity Injury Informant: patient Narrative Narrative: Patient accidentally slipped and hit the left lateral 3 toes into the leg of a couch at home. No other injury. She did not fall to the ground. Nothing was else was hurt. This happened about 5 or 6 hours ago. [facility] Medical History Alcohol abuse Chronic hepatitis C [...] Days Qty: 5.6 0RF Primary Care Provider: Leonie Peterson Referrals: Leonie Peterson MD [Primary Care Provider] - 1 Week Disposition Disposition: Home, Self Care What to do if you have Problems For any increased pain, shortness of breath, bleeding, nausea or vomiting, chestpain, or any unexpected problems, contact your Primary Care Provider. Call [facility] ([phone]) or report to the closest Emergency Room. Call 911 if necessary. 11/10/232307 <Electronically signed by Isidro Dominguez MD> Cosigner Signature (if applicable): CC: Dr. Leonie Peterson MD ~ Signed [facility] Work Phone: 1(873) 434-472602-06-2024 NoteHNO ID: [id number] Author: LYNNE PEÑA LPN Service: ? Author Type: LICENSED NURSE Type: Progress Notes Filed: 11/13/2023 13:13 Note Text: Injection prepared per Dr. Payton's order and handed directly to him. Injection site: left shoulder Lynne Peña [facility]02-06-2024 NoteHNO ID: [id number] Author: DOMINICK PAYTON MD Service: ? Author [...] AND Elbow Surgeon Department of Orthopaedic Surgery [facility]02-06-2024 NoteHNO ID: [id number] Author: DIOGENES VARELA Tech Service: ? Author Type: Artificial Candy Maker Type: Progress Notes Filed: 11/13/2023 13:13 Note Text: REVIEW OF SYSTEMS: GENERAL: Well developed, well nourished. No acute distress PAIN: Negative for pain, history of chronic pain or current treatment for chronic pain conditions CARDIOVASCULAR: Negative for chest pain, leg swelling and palpations. MSK: Negative for joint swelling SKIN: Rash yes NEURO: Numbness/tingling of extremties ENDOCRINE: Negative for diabetic associated symptoms HEMATOLOGY: [facility]11-13-2023 Discharge summary Author Shady Burris [facility] August 12, 2023 1:42pm Note Date/Time August 12, 2023 1:33pm [facility] Medical Records Department [address] [place] [address] Transfer to [facility] MR#: [id number] Acct: [id number] Name: DIANNE ALVES Rep #:[id number] : 1955 68 From: Shady nichole DO PCP: Dr. Aquiles Jones MD Status:ADM I NO Certification of patient admission REQUIRED AT TIME OF ADMISSION. I CERTIFY THAT POST-HOSPITAL F SERVICES ARE REQUIRED TO BE GIVEN ON AN IN-PATIENT BASIS BECAUSE OF THE ABOVE NAMED PATIENT'S NEED FOR LONG TERM CARE ON A CONTINUING BASIS FOR THE CONDITION(S) FOR WHICH HE/SHE WAS RECEIVING IN-PATIENT HOSPITAL SERVICES PRIOR TO HIS/HER TRANSFER TO THE [facility]. 08/12/23 1342<Electronically signed by Shady Burris DO> Diet Diet Order/Speech Therapy: 08/07/23 [...] specified health status Plan Patient presented to [facility] on 08/05/2023 from [facility] with chest pain. Hospital course as noted [...] debility: Patient came to the ED from [facility]. PT/OT/case management followed during this hospitalization. Patient was stable for discharge back to [facility] [place] on 08/12. Patient notably did require oxycodone [...] Admission Admit Date/Time: 08/05/23 05:27 Attending Provider: Shady Burris Primary Care Provider: Aquiles Jones Consulting [...] Aquiles Jones MD [Primary Care Provider] - LEI BRAGG NP-Taryn [Non-Staff] - Disposition Disposition (needs filled in before D/C Order can be placed): Long-Term Facility Charges/Coding Visit Charges Inpatient E&M: 09496 Disch Hosp >30min (1) Chest pain Qualifiers: Chest pain type: unspecified Qualified Code(s): R07.9 - Chest pain, unspecified 08/12/23 1342 <Electronically signed by Shady Burris DO> Cosigner Signature (if applicable): CC: Dr. Miguelina Castanon MD; Dr. Woodrow Cardenas DO; Dr. Aquiles Jones MD; Dr. Julio Duong MD ~ [facility] Work Phone: 1(381) 892-283511-13-2023 Consult note Author Melvin West [facility] August 12, 2023 1:37pm Note Date/Time August 12, 2023 1:37pm [facility] Medical Records Department [address] [place] [address] Counseling Note - Pharmacy 08/12/23 1337 MR#: [id number] Acct: [id number] Name: LONGDIANNE STACEY Rep #:[id number] : 1955 68 From: Melvin West PCP: Dr. Aquiles Jones MD Status:ADM I NO Y Location: [place] [address] Pharmacy [place] Med Reconciliation Pharmacy Service has performed discharge [...] Signature (if applicable): Date CC: ~ Signed [facility] Work Phone: 1(475) 398-322911-13-2023 Discharge summary Author Shady Burris [facility] August 12, 2023 1:28pm Note Date/Time August 12, 2023 1:22pm [facility] Medical Records Department [address] [place] [address] Instructions for Home/Discharge Instructions 08/12/23 1321 MR#: [id number] Acct: [id number] Name: DIANNE ALVES Rep #:[id number] : 1955 68 From: Shady nichole DO PCP: Dr. Aquiles Jones MD [...] Admission Admit Date/Time: 08/05/23 05:27 Attending Provider: Shady Burris Primary Care Provider: Aquiles Jones Consulting [...] in before D/C Order can be placed): Long-Term Facility 08/12/23 1328<Electronically signed by Shady Burris DO>Shady Burris DO CC: Dr. Miguelina Castanon MD; Dr. Woodrow Cardenas DO; Dr. Aquiles Jones MD; Dr. Julio Duong MD ~ Signed [facility] Work Phone: 1(221) 169-481011-12-2023 Progress note Author Julio Duong [facility] August 11, 2023 3:12pm Note Date/Time August 11, 2023 3:11pm [facility] Medical Records Department [address] [place] [address] Progress Note - Hospitalist 08/11/23 1508 MR#: [id number] Acct: [id number] Name: DIANNE ALVES Rep #:[id number] : 1955 68 From: Julio Wilkins PCP: Dr. Aquiles Jnoes MD Status:ADM I NO Location: [place] [address] Reason for Visit Reason for Visit: Diagnoses [...] (Auto) 40.1 L, Lymph % (Auto) 44.2 H,Rooks % (Auto) 8.1, Eos % (Auto) 6.7 [...] abuse with chronic hepatitis C: Reportedly clean [facility] e 03/2020 with history of crack [...] is for the patient to return to [facility] [place], however she will require precertification before that. [...] authorization afterwards. Charges/Coding Visit Charges Inpatient E&M: 99505 Subs Hosp L2 08/11/231510 <Electronically signed by Julio Duong MD> Cosigner Signature (if applicable): CC: ~ Signed ADDENDUM by Dr. Julio Duong MD on 08/11/23 at 1512 Addendum Patient had hyperkalemia K6.2. Kayexalate was given. Repeat potassium 5.8. Patient creatinine 1.43 estimated creatinine clearance 35.7, CKD stage IIIb 08/11/231511<Electronically signed by Julio Duong MD> Cosigner Signature (if applicable): cc: ~* Signed [facility] Work Phone: 1(870) 137-772611-11-2023 Progress note Author Julio Duong [facility] August 10, 2023 2:25pm Note Date/Time August 10, 2023 2:25pm [facility] Medical Records Department [address] [place] [address] Progress Note - Hospitalist 08/10/231421 MR#: [id number] Acct: [id number] Name: DIANNE ALVES Rep #:[id number] : 1955 68 From: Julio Wilkins PCP: Dr. Aquiles Jones MD Status:ADM I NO Location: [place] [address] Reason for Visit Reason for Visit: Diagnoses [...] but unable to be performed until the th so as the rest of the contrast [...] is for the patient to return to [facility] [place], however she will require precertification before that. [...] authorization afterwards. Charges/Coding Visit Charges Inpatient E&M: 99768 Subs Hosp L2 08/10/23 1427 <Electronically signed by Julio Duong MD> Cosigner Signature (if applicable): CC: ~ Signed [facility] Work Phone: 1(249) 840-927011-10-2023 Progress note Author Julio Duong [facility] August 09, 2023 5:22pm Note Date/Time August 09, 2023 5:22pm [facility] Medical Records Department [address] [place] [address] Progress Note - Hospitalist 08/09/23 1719 MR#: [id number] Acct: [id number] Name: DIANNE ALVES Rep #:[id number] : 1955 68 From: Julio Wilkins PCP: Dr. Aquiles Jones MD Status:ADM I NO Location: [place] [id number] Reason for Visit Reason for Visit: [...] is for the patient to return to [facility] [place], however she will require precertification before that. [...] authorization afterwards. Charges/Coding Visit Charges Inpatient E&M: 79497 Subs Hosp L2 08/09/23 1722 <Electronically signed by Julio Duong MD> Cosigner Signature (if applicable): CC: ~ Signed [facility] Work Phone: 1([phone]) 639-936611-09-2023 Progress note Author Julio Duong [facility] August 08, 2023 5:35pm Note Date/Time August 08, 2023 5 :36pm [facility] Medical Records Department [facility] [place] [address] Progress Note - Hospitalist 08/08/23 1731 MR#: [id number] Acct: [id number] Name: DIANNE ALVES Rep #:[id number] : 1955 68 From: Julio Wilkins PCP: Dr. Aquiles Jones MD Status:ADM I NO Location: [place] [address] Reason for Visit Reason for Visit: Diagnoses [...] Referring Physician: Aquiles Jones Performed By: Cherry Mercedes, RVT Lung Scan-VQ NM 08/08/23 10:00 IMPRESSION: 1. VERY LOW PROBABILITY FOR PULMONARY EMBOLUS (<10%) 99m Tc DTPA aerosol ventilation / 99m Tc MAA pulmonary perfusion imaging examination, according to PIOPED II interpretive criteria with regard given to the presence of > 2 ventilation-perfusion matches without corresponding radiographic changes. (Sotssherman et al, Radiology 246: 941, 2008 Soladi et al, J Nucl Med 49: 1741, 2008). 2. Central clumping of the aerosol may be secondary to obstructive airway mechanics and or clinical tachypnea. Electronically Signed: Duke DO Kannan at 11:19 EST Reading Location ID and State: [facility] / [place] Tel , Service support , Physical Exam Narrative Seen and examined. [...] with chronic hepatitis C: Reportedly clean [place] 03/2020 with history of crack and cocaine [...] is for the patient to return to [facility] [place], however she will require precertification before that. [...] authorization afterwards. Charges/Coding Visit Charges Inpatient E&M: 02101 Subs Hosp L2 08/08/23 1735 <Electronically signed by Julio Duong MD> Cosigner Signature (if applicable): CC: ~ Signed [facility] Work Phone: [phone]) 208-257411-08-2023 Progress note Author Woodrow Cardenas [facility] August 07, 2023 2:50pm Note Date/Time August 07, 2023 8 :52am [facility] Medical Records Department [facility] [place] [address] Progress Note - Hospitalist 08/07/23 0851 MR#: [id number] Acct: [id number] Name: DIANNE ALVES Rep #:[id number] : 1955 68 From: Woodrow Cardenas DO PCP: Dr. Aquiles Jones MD Status:ADM I NO Location: [place] [address] Reason for Visit Reason for Visit: Diagnoses [...] (Auto) 42.9 L, Lymph % (Auto) 39.6, Rooks % (Auto) 10.2 H, Eos % (Auto) [...] VQ scan to be performed on the nin is negative then the triple-lumen catheter can [...] is for the patient to return to [facility] [place], however she will require precertification before that. [...] isin place Charges/Coding Visit Charges Inpatient E&M: 82053 Subs Hosp L2 08/07/23 1450 <Electronically signed by Woodrow Cardenas DO> Cosigner Signature (if applicable): CC: ~ Signed [facility] Work Phone: 1(277) 742-778411-07-2023 Progress note Author Woodrow Cardenas [facility] August 06, 2023 2:18pm Note Date/Time August 06, 2023 8 :36am [facility] Medical Records Department [address] [facility] [place] [address] Progress Note - Hospitalist 08/06/23 0835 MR#: [id number] Acct: [id number] Name: DIANNE ALVES Rep #:[id number] : 1955 68 From: Woodrow Cardenas DO PCP: Dr. Aquiles Jones MD Status:ADM I NO Location: [place] [address] Reason for Visit Reason for Visit: Diagnoses [...] Full code. Charges/Coding Visit Charges Inpatient E&M: 49599 Subs Hosp L2 08/06/23 1418 <Electronically signed by Woodrow Cardenas DO> Cosigner Signature (if applicable): CC: ~ Signed [facility] Work Phone: [phone]) 160-276811-06-2023 Progress note Author Woodrow Cardenas [facility] August 05, 2023 1:28pm Note Date/Time August 05, 2023 8 :09am [facility] Medical Records Department [address] [place] [address] Progress Note - Hospitalist 08/05/23 0804 MR#: [id number] Acct: [id number] Name: DIANNE ALVES Rep #:[id number] : 1955 68 From: Woodrow Cardenas DO PCP: Dr. Aquiles Jones MD Status:ADM I NO Location: [place] [address] 1 Reason for Visit Reason for Visit: [...] % (Auto) 48.3, Lymph % (Auto) 37.6, Rooks % (Auto) 7.6, Eos % (Auto) 5.7 [...] at bedside. Charges/Coding Visit Charges Inpatient E&M: 15080 Subs Hosp L2 08/05/23 1328 <Electronically signed by Woodrow Cardenas DO> Cosigner Signature (if applicable): CC: ~ Signed [facility] Work Phone: [phone]) 819-217311-06-2023 Discharge [address] [facility] August 05, 2023 7:57am Note Date/Time August 05, 2023 2 :22am [facility] Medical Records Department [address] [place] [address] Emergency Department Summary 08/05/23 MR#: [id number] Acct: [id number] Name: DIANNE ALVES Rep #:[id number] : 1955 68 From: Castro Guallpa PCP: Dr. Aquiles Jones MD Status:ADM I NO Location: [address] History of Present Illness Chief Complaint: Chest Pain [facility] Medical History (Updated 08/05/23 @ 05:26 by [...] others: EMS Consults: Internal medicine (Dr. Castanon) [facility] Narrative: Patient was hemodynamically stable, afebrile, [...] despite significant pain. Had a conversation with quantitative consultant, RN for the patient about IV access. [...] through a line company per hospitalist. Per quantitative consultant is not available until potentially 10 or [...] a wire introducer was placed, a 7 Gibraltarian triple lumen catheter was placed using Seldinger [...] % (Auto) 48.3 Lymph % (Auto) 37.6 Rooks % (Auto) 7.6 Eos % (Auto) 5.7 [...] 5:28 EST Reading Location ID and State: [facility] / [place] Tel , Service support , Discharge Plan Triage Chief Complaint: Chest Pain ED Provider: Castro Lane Dx/Rx/DC Orders Primary Care Provider: Aquiles Jones What to do if you have Problems For any increased pain, shortness of breath, bleeding, nausea or vomiting, chestpain, or any unexpected problems, contact your Primary Care Provider. Call [facility] ([phone]) or report to the closest Emergency Room. Call 911 if necessary. 08/05/23 7010 <Electronically signed by Castro Lane DO> Cosigner [...] cc: Dr. Aquiles Jones MD ~* Signed [facility] Work Phone: 1([phone]) 928-878811-06-2023 History and physical note Author Miguelina Castanon [facility] August 05, 2023 5:49am Note Date/Time August 05, 2023 5 :30am [facility] Medical Records Department [address] [place] [address] H&P Exam - Hospitalist 08/05/23 0525 MR#: [id number] Acct: [id number] Name: DIANNE ALVES Rep #:[id number] : 1955 68 From: Miguelina Castanon MD PCP: Dr. Aquiles Jones MD Status:ADM I NO Location: [place] [phone]- [phone] HPI - General General Date of Admission: 08/05/23 Date of Service: 08/05/23 Chief Complaint: Chest pain. 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 [facility] Medical History (Updated 08/05/23 @ 05:26 by [...] % (Auto) 48.3, Lymph % (Auto) 37.6, Rooks % (Auto) 7.6, Eos % (Auto) 5.7 [...] Depression and Anxiety who presents to the [facility] ED on 08/05/23 with history of [...] Full code. Charges/Coding Visit Charges Inpatient E&M: 52486 Init Hosp L2 08/05/23 0549 <Electronically signed by Miguelina Castanon MD> Cosigner Signature (if applicable): CC: Dr. Miguelina Castanon MD; Dr. Aquiles Jones MD~ Signed [facility] Work Phone: 1(216) 208-730211-06-2023 History and physical note Author Miguelina Castanon [facility] August 05, 2023 5:49am Note Date/Time August 05, 2023 5 :30am [facility] Medical Records Department [address] [place] [address] [place] [address] H&P Exam - Hospitalist 08/05/23 0525 MR#: [id number] Acct: [id number] Name: DIANNE ALVES Rep #:[id number] : 1955 68 From: Miguelina Castanon MD PCP: Dr. Aquiles Jones MD Status:ADM I NO Location: [place] [address] HPI - General General Date of Admission: 08/05/23 Date of Service: 08/05/23 Chief Complaint: Chest pain. 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 [facility] Medical History (Updated 08/05/23 @ 05:26 by [...] % (Auto) 48.3, Lymph % (Auto) 37.6, Rooks % (Auto) 7.6, Eos % (Auto) 5.7 [...] Depression and Anxiety who presents to the [facility] ED on 08/05/23 with history of [...] Full code. Charges/Coding Visit Charges Inpatient E&M: 48246 Init Hosp L2 08/05/23 0549 <Electronically signed by Miguelina Castanon MD> Cosigner Signature (if applicable): CC: Dr. Miguelina Castanon MD; Dr. Aquiles Jones MD~ Signed [facility] Work Phone: 1([phone]) [phone] Discharge summary Author Castro [facility] August 05, 2023 7:57am Note Date/Time August 05, 2023 2 :22am [facility] Medical Records Department [address] [place] [address] Emergency Department Summary 08/05/23 MR#: [id number] Acct: [id number] Name: DIANNE ALVES Rep #:[id number] : 1955 68 From: Castro Guallpa PCP: Dr. Aquiles Jones MD Status:ADM I NO Location: [address] History of Present Illness Chief Complaint: Chest Pain [facility] Medical History (Updated 08/05/23 @ 05:26 by [...] despite significant pain. Had a conversation with quantitative consultant, RN for the patient about IV access. [...] through a line company per hospitalist. Per quantitative consultant is not available until potentially 10 or [...] a wire introducer was placed, a 7 Gibraltarian triple lumen catheter was placed using Seldinger [...] % (Auto) 48.3 Lymph % (Auto) 37.6 Rooks % (Auto) 7.6 Eos % (Auto) 5.7 [...] evidence of acute cardiopulmonary disease. Electronically Signed: Colekira HuynhDO at 5:28 EST , Discharge Plan Triage Chief Complaint: Chest Pain ED Provider: Castro Lane Dx/Rx/DC Orders Primary Care Provider: Aquiles Jones What to do if you have Problems For any increased pain, shortness of breath, bleeding, nausea or vomiting, chestpain, or any unexpected problems, contact your Primary Care Provider. Call [facility] ([phone]) or report to the closest Emergency Room. [...] procedure well with no immediate complications 08/05/23 075<Electronically signed by Castro Lane DO> Cosigner Signature (if applicable): cc: Dr. Aquiles Jones MD ~* Signed [facility] Work Phone: 1(800) 733-329909-25-2023 Discharge summary Author Felicitas Harris [facility] June 24, 2023 11:10am Note Date/Time June 24, 2023 11:10am [facility] Occupational Therapy [facility] 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 refer to pt return DrJuan Antonio pt did meet initial established goals of left wrist. pt agrees to call and return to discuss pain of left thumb and muscle spasms. d/c sentence: If there are questions or concerns regarding this patient's occupational therapy, please fell free to call me at [phone]. Thank you for the referral of this patient. Sincerely, Felicitas Harris, OTR/L, CHT <Electronically signed by Felicitas Harris OTR/L, CHT> 06/24/23 1110 CC: ENTRY SPECIALIST-C ELI BRAGG; Dr. Capo Yu MD ~ MK Signed [facility] Work Phone: 1(862) 899-287609-05-2023 Discharge summary Author Lucas Marshall [facility] June 04, 2023 3:14pm Note Date/Time June 04, 2023 2:03pm [facility] Medical Records Department [address] [place] [address] Emergency Department Summary 06/04/23 MR#: [id number] Acct: [id number] Name: DIANNE ALVES Rep #:[id number] : 1955 68 From: Lucas Penny PCP: CHICO DREW Status:REG ER Location: ED HPI History of Present Illness Chief Complaint: Back Informant: patient Narrative Narrative: Here with daughter nontraumatic right hip pain since yesterday. On meloxicam last dose this morning. Status post left ORIF of the wrist in February from [facility]. States his residual tingling to [...] mcg-glycopyr 9 mcg-formot 4.8 mcg/actuation HFA inhaler ([employer]) 2 inh inhalation BID 02/08/23 [History Last [...] clinician: N/A This note was generated with [employer] dictation software. It may contain incorrectwords, spelling, [...] your Primary Care Provider. Call [facility] ([phone]) or report to the closest Emergency Room. Call 911 if necessary. 06/04/23 9072 <Electronically signed by Lucas Penny> Cosigner Signature (if applicable): CC: CHICO BRAGG ~ Signed [facility] Work Phone: 1(204) 960-705301-23-[address] [facility] October 22, 2022 6:28pm Note Date/Time October 22, 2022 4 :44pm [facility] Medical Records Department [address] [place] [address] Emergency Department Summary 10/22/22 MR#: [id number] Acct: [id number] Name: DIANNE ALVES Rep #:[id number] : 1955 67 From: Ganga Kingsley MD PCP: Dr. Leonie Peterson MD Status:REG E R Location: ED HPI [...] she be discharged safely home to use efky-usj-xovhqop medications. She was told that narcotic pain [...] (Auto) 46.3 L Lymph % (Auto) 40.1 Rooks % (Auto) 7.0 Eos % (Auto) 5.9 [...] mg PO Q6H PRN PRN (Reason: pain -07/09) 0RF meloxicam 7.5 MG tablet 7.5 mg [...] DAILY Qty: 12 0RF Primary Care Provider: Leonie Peterson Referrals: Leonie Peterson MD [Primary Care Provider] - As soon as possible Disposition Disposition: Home, Self Care What to do if you have Problems For any increased pain, shortness of breath, bleeding, nausea or vomiting, chestpain, or any unexpected problems, contact your Primary Care Provider. Call [facility] ([phone]) or report to the closest Emergency Room. Call 911 if necessary. 10/22/221827 <Electronically signed by Ganga Kingsley MD> Cosigner Signature (if applicable): CC: Dr. Leonie Peterson MD ~ Signed [facility] Work Phone: Evaluation noteNo assessment information available [facility] Work Phone: Evaluation note* Diagnosis Onset Date Resolution Status Hepatitis A chronic Hepatitis C chronic [facility] Work Phone: Evaluation note* Diagnosis Onset Date Resolution Status Hepatitis A chronic Hepatitis C chronic Preop cardiovascular exam [place] [facility] Work Phone: Evaluation note* Diagnosis Onset Date Resolution Status Preop cardiovascular exam [place] Euthyroid sick syndrome acut e Bloating acute Hepatitis A chronic Hepatitis C chronic [facility] Work Phone: Evaluation note* Diagnosis Onset Date Resolution Status Euthyroid sick syndrome acut e Bloating acute Hepatitis A chronic Hepatitis C chronic [facility] Work Phone: Evaluation note* Diagnosis Onset Date Resolution Status Euthyroid sick syndrome acut e Bloating acute Hepatitis A chronic Hepatitis C chronic Chest pain acute [facility] Work Phone: Evaluation note* Diagnosis Onset Date Resolution Status Euthyroid sick syndrome acut e Bloating acute Hepatitis A chronic Hepatitis C chronic Chest pain acute Difficult intravenous access acute [facility] Work Phone: Evaluation note* Diagnosis Onset Date Resolution Status Difficult intravenous access acute Chest pain resolved [facility] Work Phone: Hospital Discharge instructions Additional Instructions Take antibiotic and steroid as prescribed. Next dose tomorrow. Keep yoUr pulmonology appointment tomorrow. COVID-negative chest x-ray negative labs are stable. return if any worsening symptoms.[facility] Work Phone: Hospital Discharge instructions Additional Instructions Motrin and Tylenol for pain. The x-rays of your hip showed arthritis but no broken bones or any other significant abnormalities. Follow-up with your doctor if not improving.[facility] Work Phone: Hospital Discharge instructions Additional Instructions Right hip x-ray negative. Take steroids, continue your meloxicam. Use Percocet as needed. Follow-up with your doctors.[facility] Work Phone: Hospital Discharge instructions Additional Instructions See CAT scan your chest look good. No blood clot. Your other tests look good tonight. Follow-up with your doctor as needed.[facility] Work Phone: Reason for referral (narrative)No reason for referral [facility] Work Phone: Summary Purpose Family History No Family History Records Found Relationship Condition Age at Onset Recorded Date/T elvis Not Specified Alcoholism Unknown Hypertension Unknown Relationship Condition Age at Onset Recorded Date/T elvis Not Specified Alcoholism Unknown mother Hypertension Unknown Advance Directives No Advanced Directives Records FoundDocuments on File Type Date Recorded Patient Director Perioperative Expl anation Advance Directives and Living Will Power of Hairspring Truer Advance Directive Response Recorded Date/ Time Living Will No July 30 2:10pm Power of Hairspring Truer No July 30, 2022 2:10pm Advance Directive Response Recorded Date/ Time Living Will No July 30 1:10pm Power of Hairspring Truer No July 30, 2022 1:10pm Advance Directive Response Recorded Date/ Time Living Will No October 22 4:35pm Power of Hairspring Truer No October 22, 2022 4:35pm Advance Directive Response Recorded Date/ Time Living Will No October 22 5:35pm Power of Hairspring Truer No October 22, 2022 5:35pm Advance Directive Response Recorded Date/ Time Living Will No April 13, 2023 10:36am Power of Hairspring Truer No April 13 10:36am Advance Directive Response Recorded Date/ Time Living Will No June 04, 2 023 3:10pm Power of Hairspring Truer No June 04, 2023 3:10pm Advance Directive Response Recorded Date/ Time Living Will No June 04, 023 2:10pm Power of Hairspring Truer No June 04, 2023 2:10pm Advance Directive Response Recorded Date/ Time Living Will No August 05 8:52am Power of Hairspring Truer No August 05, 2023 8:52am Advance Directive Response Recorded Date/ Time Living Will No November 10 024 8:26pm Power of Hairspring Truer No November 10, 2023 8:26pm Advance Directive Response Recorded Date/ Time Living Will No November 21 024 11:32am Power of Hairspring Truer No November 21, 2023 11:32am Advance Directive Response Recorded Date/ Time Living Will No November 17 025 5:00pm Power of Hairspring Truer No November 17, 2024 5:00pm Living Will No December 11, 2024 4:45pm Power of Hairspring Truer No December 11 4:45pm Hospital Course Note NAME: DIANNE ALVES MR# : [id number] ADMIT DATE: 11/25/2019 DISCHARGE DATE: 12/07/2019 DISCHARGE SUMMARY HISTORY OF PRESENT ILLNESS: The patient is a 64-year-old -[place] female who was evicted from her apartment [...] not included)... Discharge Instructions * Instructions* Ishaan Martinez PA - 04/13/2020 You were seen in the emergency Department for your cocaine. Unfortunately there are no beds at [facility]. Please follow-up with the resources provided to you for local help. * Attachments The following attachments cannot be sent through Care Everywhere. * Drug Overdose: Cocaine (Qat[place]) documented in this encounter Assessments Diagnosis Cocaine [...] Complaint Admit Date ACUTE ON CHRONIC RESPIRATORY FAILURE/2ND TO FLU November 17, 2024 2:58pm CP November 17, 2024 6:45pm ACUTE ON CHRONIC RESPIRATORY FAILURE/2ND TO FLU November 18, 2024 1:59pm ACUTE ON CHRONIC RESPIRATORY FAILURE/2ND TO FLU November 19, 2024 10:06am ACUTE ON CHRONIC [...] section and content) DATE CREATED AUTHOR 02/04/2019 [facility] DATE CREATED AUTHOR AUTHOR'S ORGANIZ ATION 06/19/2019 [employer] DATE CREATED AUTHOR AUTHOR'S ORGANIZ ATION 12/14/2019 [facility] DATE CREATED AUTHOR AUTHOR'S ORGANIZ ATION 02/12/2020 [facility] DATE CREATED AUTHOR AUTHOR'S ORGANIZ ATION 04/22/2020 [facility] DATE CREATED AUTHOR AUTHOR'S ORGANIZ ATION 10/29/2021 [facility] DATE CREATED AUTHOR AUTHOR'S ORGANIZ ATION 08/22/2024 [facility] DATE CREATED AUTHOR AUTHOR'S ORGANIZ ATION 10/28/2024 [facility] DATE CREATED AUTHOR AUTHOR'S ORGANIZ ATION 12/22/2024 [facility] DATE CREATED AUTHOR AUTHOR'S ORGANIZ ATION 07/17/2025 [facility] Reason for Visit (unrecogniz ed section and [...] Status: Active Member Role Status Dates Dr. Leonie Peterson MD Primary Care Provider Active Team Status: Inactive Member Role Status Dates Dr. Leonie Peterson MD Primary Care Provider Active Start: November 17, 2024 End: November 23, 2024 Dr. Doron Bernardo DO Emergency Provider Active Start: November 17, 2024 [...] Status: Active Member Role Status Dates Dr. Leonie Peterson MD Primary Care Provider Active Start: November 17, 2024 End: November 17, 2024 Dr. Alexia Gil MD Attending Provider Active Start: November 17, 2024 End: November 17, 2024 Dr. Alexia Gil MD Referring Provider Active Start: November 17, 2024 End: November 17, 2024 Team Status: Active Member Role Status Dates Dr. Leonie Peterson MD Primary Care Provider Active Start: November 18, 2024 Dr. Alexia Gil MD Attending Provider Active Start: November 18, 2024 Team Status: Active Member Role Status Dates Dr. Leonie Peterson MD Primary Care Provider Active Start: November [...] Status: Active Member Role Status Dates Dr. Leonie Peterson MD Primary Care Provider Active Start: November [...] Active Start : November 19, 2024 Dr. Darrly Evans MD Other Provider Active Sta rt: [...] t: November 19, 2024 Dr. Lion Khan , Other Provider Active St art: November 19, [...] Status: Active Member Role Status Dates Dr. Leonie Peterson MD Primary Care Provider Active Start: November [...] Status: Active Member Role Status Dates Dr. Leonie Peterson MD Primary Care Provider Active Start: November [...] November 20, 2024 Dr. Zeyad Espinoza DO Attending Provider Active S tart: November 20, [...] Status: Active Member Role Status Dates Dr. Leonie Peterson MD Primary Care Provider Active Start: November [...] Status: Active Member Role Status Dates Dr. Leonie Peterson MD Primary Care Provider Active Start: November [...] Start : November 21, 2024 Dr. Darryl Evans MD Other Provider Active Sta rt: November 21, 2024 Dr. Heladio Paige MD Other Provider Active St art: November 21, 2024 Dr. Nelson Interiano MD Other Provider Active S tart: November 21, 2024 Dr. Maria M Ochao MD Other Provider Active Start: November 21, [...] Active St art: November 21, 2024 Dr. Eladio Garcia MD Other Provider Active Star t: November 21, 2024 Dr. Lion Khan , Other Provider Active St art: November 21, [...] Status: Active Member Role Status Dates Dr. Leonie Peterson MD Primary Care Provider Active Start: November [...] St art: November 22, 2024 Dr. Nelson Interiano MD Other Provider [...] Sta rt: November 22, 2024 Dr. Kane Knox MD Other Provider Active Star t: November 22, 2024 Dr. Vishnu Herrera MD Other Provider Active St art: November 22, 2024 Dr. Eladio Garcia MD Other Provider Active Star t: November 22, 2024 Dr. Lion Khan DO Other Provider Active St art: November 22, [...] Status: Active Member Role Status Dates Dr. Leonie Peterson MD Primary Care Provider Active Start: November [...] Status: Active Member Role Status Dates Dr. Leonie Peterson MD Primary Care Provider Active Start: November [...] Status: Inactive Member Role Status Dates Dr. Leonie Peterson MD Primary Care Provider Active Start: December [...] Woodrow Cardenas DO Other Provider Active Dr. Shady Burris DO Attending Provider, Other Provider Active Dr. [...] Woodrow Cardenas DO Other Provider Active Dr. Shady Burris , DO Attending Provider Active Dr. Julio Duong MD Other Provider Active Team Status: Active Member Role Status Dates Dr. Aquiles Jones MD Primary Care Provider Active Aquiles COLE Attending Provider Active Team Status: Inactive Member Role Status Dates Dr. Isidro Dominguez MD Emergency Provider Active Dr. Leonie Peterson MD Primary Care Provider Active Team Status: Active Member Role Status Dates Dr. Aquiles Jones MD Primary Care Provider Active Team Status: Inactive Member Role Status Dates Dr. Leonie Peterson MD Referring Provider Active Dr. Stef Bennett DO Attending Provider Active ELI BRAGG , ENTRY SPECIALIST-C Primary Care Provider Active Team Status: Inactive Member Role Status Dates Dr. Leonie Peterson MD Referring Provider Active Dr. Omar Walters MD Attending Provider Active ELI BRAGG , ENTRY SPECIALIST-C Primary Care Provider Active Team Status: Inactive Member Role Status Dates Dr. Capo Yu MD Attending Provider, Referring Provider Active ELI BRAGG , ENTRY SPECIALIST-C Primary Care Provider Active Team Status: Inactive Member Role Status Dates ELI BRAGG ENTRY SPECIALIST-C Primary Care Provider Active Dr. Stef Bennett DO Attending Provider, Referring Provider Active Team Status: Inactive Member Role Status Dates ELI BRAGG ENTRY SPECIALIST-C Primary Care Provider Active Dr. Lucas Marshall DO Attending Provider, Emergency Provide r Active Team Status: Active Member Role Status Dates Dr. Castro Lane DO Emergency Provider Active Dr. Aquiles Jones MD Primary Care Provider Active Dr. Miguelina Castanon MD Admit Provider, Other Provider Active Dr. Woodrow Cardenas DO Attending Provider Active Team Status: Inactive Member Role Status Dates Dr. Leonie Peterson MD Primary Care Provider Active Dr. Titi Jesus MD Attending Provider, Emergency Pro vider Active Team Status: Inactive Member Role Status Dates Dr. Leonie Peterson MD Primary Care Provider Active Dr. Lucas Marshall DO Attending Provider, Emergency Provide r Active Team Status: Inactive Member Role Status Dates Dr. Leonie Peterson MD Primary Care Provi mal, Attending Provider, Referring Provider Active Team Status: Inactive Member Role Status Dates Dr. Leonie Peterson MD Primary Care Provider Active Ganga Kingsley MD Emergency Provider Active Team Status: Inactive Member Role Status Dates Dr. Leonie Peterson MD Primary Care Provider, Referring Provider Active Dr. Stef Bennett DO Attending Provider Active Team Status: Inactive Member Role Status Dates Dr. Leonie Peterson MD Primary Care Provider Active Ganga iKngsley MD Attending Provider, Emergency Provid er Active Team Status: Inactive Member Role Status Dates Dr. Leonie Peterson MD Primary Care Provider Active Dr. Stef Bennett DO Attending Provider, Referring Provider Active Team Status: Inactive Member Role Status Dates Dr. Leonie Peterson MD Primary Care Provider, Referring Provider Active Dr. Yeison Verma MD Attending Provider Active Team Status: Inactive Member Role Status Dates Dr. Leonie Peterson MD Primary Care Provider Active Dr. Debbie Delgadillo MD Attending Provider, Emergency Provider Active Team Status: Inactive Member Role Status Dates Dr. Leonie Peterson MD Primary Care Provider Active Dr. Titi Jesus MD Emergency Provider Active Team Status: Active Member Role Status Dates ELI BRAGG , ENTRY SPECIALIST-C Primary Care Provider Active Team Status: Active Member Role Status Dates Dr. Capo Yu MD Attending Provider, Referring Provider Active ELI OLDER , ENTRY SPECIALIST-C Primary Care Provider Active Team Status: Inactive Member Role Status Dates ELI BRAGG , ENTRY SPECIALIST-C Primary Care Provider Active Dr. Lucas Marshall DO Emergency Provider Active Team Status: Active Member Role Status Dates Dr. Aquiles Jones MD Primary Care Provider Active Dr. Woodrow Cristobal MD Attending Provider Active Team Status: Inactive Member Role Status Dates Dr. Isidro Dominguez MD Attending Provider, Emergency Provider Active Dr. Leonie Peterson MD Primary Care Provider Active Team Status: Inactive Member Role Status Dates Dr. Leonie Peterson MD Primary Care Provider Active Dr. Debbie [...] BE BASED ON THE PRIMARY CLINICAL RECORDS. [employer] provides no warranty or guarantee of the accuracy or completeness of information in this document.
--- NOTE | 2025-09-26 04:39 | CT_ITS ---
PROCEDURE: EXTREMITY LOWER WITHOUT CONTRA 09/26/2025 REASON FOR EXAM: RIGHT THIGH PAIN TECHNIQUE: Procedure Code: CTELWO Modality: CT Procedure: EXTREMITY LOWER WITHOUT CONTRA Coronal and Sagittal reconstruction series were provided. One or more dose reduction techniques were used (e.g., Automated exposure control, adjustment of the mA and/or kV according to patient size, use of iterative reconstruction technique). RADIATION DOSE SUMMARY: DLP: 1556.05 mGycm FINDINGS: The lower abdominal organs are unremarkable. There is aortic atherosclerosis with bilateral common iliac artery stents. The uterus is unremarkable. There is intravenous contrast in the bladder, which appears unremarkable. There are no acute fractures. There are no dislocations. The joint spaces are well-maintained. The articular surfaces are intact. Bony mineralization is normal. There are no periosteal reactions. There are no aggressive osseous lesions. Evaluation for underlying abscesses is limited without the use of intravenous contrast. However, there are no hypoattenuating lesions to suggest an abscess. CT/Extremity Lower without Contra IMPRESSION: No acute osseous findings. Evaluation for an underlying abscess is limited without the use of intravenous contrast. However, there are no hypoattenuating lesions to suggest an abscess. No soft tissue irregularities of the right lower extremity. Reading Location: [id number]
--- OUTSIDE RECORDS SUMMARY | 2025-09-26 05:35 | XMS RPT_ITS | CCD ---
Author Organization [facility] Care Team Providers Care Icu Rn Name Role Phone Myke Burdick Attending Unavail [...] Provider Dr. Omar Walters Attending Provider OLDER, PMP-C ELI Primary Care Provider Dr. Stef Bennett Attending Provider Dr. Leonie Peterson Referring Provider Dr. Leonie Peterson Referring Provider Dr. Omar Walters Attending Provider OLDER, PMP-C ELI Primary Care Provider Dr. Stef Bennett Attending Provider Dr. Aquiles Jones Primary Care Provider Dr. Tej Corley Attending Provider [phone] Emergency Provider [phone] Dr. Miguelina Castanon Admit Provider Dr. Miguelina [...] Stef Consulting Unavailable Tej Corley Attending Unavailabl nidu Kenny, Rita Vani Referring Unavailable Zeyad Espinoza [...] Lion Consulting Unavailable Dianna Shah Consulting Unavailable Robbins, Soleyanoelle Consulting Unavailable Fernstrom, Jorje Consulting Unavailable [...] Nathan CORTÉS, Dr. Darryl Jiménez Other Provider Royal CORTÉS, Dr. Leija Other Provider Laisha CORTÉS, Dr. Damon Other Provider Don CORTÉS, Dr. Franz Other Provider [phone] Shyanne CORTÉS, Dr. Cortes Other Provider Dr. Kd Corral MD Other Provider Dr. Kvng Vizcaino MD Other Provider Dr. Niyah Mejia MD Other Provider Blayne CORTÉS, Dr. Estrada Other Provider Unavailabl indu Smith MD, Dr. Chahal Other Provider [phone] Dr. Kane Knox MD Other Provider [phone] Vishnu Herrera MD Other Provider [phone] Jose CORTÉS, Dr. Hendricks Other Provider Dr. Lion Khan DO Other Provider Alyssa CORTÉS, Dr. Bustamante Other Provider Marielos CORTÉS, Dr. Carrion Other Provider [phone] Zack DONOVAN, Dr. Recinos Other Provider Valeriano CORTÉS, Dr. Chen Other Provider Richi CORTÉS, Dr. Low Other Provider Efraín CORTÉS, Dr. Rita Ludwig Other Provider Jeffery CORTÉS, Dr. Hale Attending Provider Jeffery CORTÉS, Dr. Hale Referring Provider Efraín CORTÉS, Dr. Rita Ludwig Attending Provider Efraín CORTÉS, Dr. Rita Ludwig Referring Provider Dr. Zeyad Espinoza DO Attending Provider Jory CORTÉS, Dr. Burnham Attending Provider Edin CORTÉS, Dr. Walls Emergency Provider [phone] BENDARAM, ELHAM MCKAY Referring Unavaila ble GANTA, [...] source) traMADol Drug Allergy 05-22-2016 Nausea Only [facility]- [place], [place] Medications Current Medications Medication [...] mg by inhalation every six hours Ipratropium [place] 0.02 % Solution Active 0.5 mg INHALATION [...] 1:24pm docusate sodium 50 mg / sennosides, intermediate 8.6 mg oral tablet (4 sources) Start: [...] February 08, 2023 1:24pm polyethylene glycol 3350 26749 mg powder for oral solution (4 sources) [...] and chronic respiratory failure with hypoxia; Translations: [Pubol-nf-fcrmkyf respiratory failure] Onset: 07-19-2022 11-25-2024 Chronic Spondylosis; [...] current use of drug therapy; Translations: [Other manager long term care (current) drug therapy] Onset: 04-17-2016 05-22-2016 Unclassified [...] Reference Range Facility CNOVon 07-12-2025 CNOV Normal [facility] CNPNon 06-30-2025 CNPN Normal [facility] CNPNon 06-24-2025 CNPN Normal [facility] CNOVon 06-22-2025 CNOV Normal [facility] LUNG DIFFUSION CAPACITY (GUANAKO O)on 06-22-2025 LUNG DIFFUSION CAPACITY (DLCO) Normal [facility] SPIROMETRY WITH DILATOR IF O BSTRUCTEDon 06-22-2025 SPIROMETRY WITH DILATOR IF OBSTRUCTED Normal [facility] CNOVon 06-01-2025 CNOV Normal [facility] T3Free SerPl-mCncon 06-01-20 25 Free T3 [Mass/Vol] 2.8 pg/mL Normal 2.3-4.1 [facility] Comment on above: Order Comment: Speci men Type: BLOOD SPECIMENOrdering Facility: [facility] Address: [address] [place] [address] Performed By: #### 3 051-0, 3024-7, 3016-3 ####[facility] LABCLIA [id number] [address] [place] T4 Free SerPl-mCncon 025 Free T4 [Mass/Vol] 1.1 ng/dL Normal 0.9-1.7 [facility] Comment on above: Order Comment: Speci men Type: BLOOD SPECIMENOrdering Facility: [facility] Address: [address] [place] [address] Performed By: #### 3 051-0, 3024-7, 3016-3 ####[facility] LABCLIA [id number] [place] [address] [place] TSH SerPl-aCncon 06-01-2025 TSH Qn 0.560 m[IU]/L Normal 0.270-4.200 [facility] Comment on above: Order Comment: Speci men Type: BLOOD SPECIMENOrdering Facility: [facility] Address: [address] [place] [address] Performed By: #### 3 051-0, 3024-7, 3016-3 ####[facility] LABCLIA [id number] [place] [address] [place] CNOVon 05-11-2025 CNOV Normal [facility] XR CHEST 2V FRONTAL/LATon XR CHEST 2V FRONTAL/LAT Normal [facility] CNPNon 05-04-2025 CNPN Normal [facility] CNCOon 04-21-2025 CNCO Letter Text Normal [facility] CNPNon 04-16-2025 CNPN Normal [facility] CNOVon 04-09-2025 CNOV Normal [facility] CNOVon 03-23-2025 CNOV Normal [facility] CNPTOUTREACHon 03-02-2025 CNPTOUTREACH Normal [facility] CNOVon 03-01-2025 CNOV Normal [facility] T3 SerPl-mCncon 03-01-2025 T3 [Mass/Vol] 100 ng/dL Normal 79-165 [facility] Comment on above: Order Comment: Speci men Type: BLOOD SPECIMENOrdering Facility: [facility] Address: [address] [place] [address] Performed By: #### 3 053-6, 3016-3, 3024-7 ####[facility] LABCLIA [id number] [place] [address] [place] T4 Free SerPl-mCncon 025 Free T4 [Mass/Vol] 1.0 ng/dL Normal 0.9-1.7 [facility] Comment on above: Order Comment: Speci men Type: BLOOD SPECIMENOrdering Facility: [facility] Address: [address] [place] [address] Performed By: #### 3 053-6, 3016-3, 302-7 ####[facility] LABCLIA [id number] [place] [address] [place] TSH SerPl-aCncon 03-01-2025 TSH Qn 0.354 m[IU]/L Normal 0.270-4.200 [facility] Comment on above: Order Comment: Speci men Type: BLOOD SPECIMENOrdering Facility: [facility] Address: [address] [place] [address] Performed By: #### 3 053-6, 3016-3, 7 ####[facility] LABCLIA [id number] [place] [address] [place] Bacteria Spec Resp Culton Bacteria identified Respiratory culture Nom (Unsp spec) ORGANISM ID: 1 Few normal respiratory tanesha GRAM STAIN: Rare Mixed oral tanesha Rare Polymorphonuclear leukocytes Abnormal [facility] Comment on above: Performed By: #### 3 2355-0 ####[facility] LABCLIA [id number] [address] [place] CNOVon 02-05-2025 CNOV Normal [facility] XR CHEST 2V FRONTAL/LATon XR CHEST 2V FRONTAL/LAT Normal [facility] PVR ANK PRESS ARTEM VAS LABon 02-02-2025 PVR ANK PRESS ARTEM VAS LAB Normal [facility] CNOVon 01-01-2025 CNOV Normal [facility] CNOVon 12-21-2024 CNOV Normal [facility] Bacteria Ur Culton Bacteria identified Cx Nom (U) ORGANISM ID: 1 10,000 -<50,000 CFU/ml Normal urogenital tanesha Normal [facility] Comment on above: Performed By: #### 6 30-4 ####[facility] LABCLIA [id number] [place] [address] [place] CNOVon 12-18-2024 CNOV Normal [facility] Urinalysis complete panel (U )on 12-18-2024 Bacteria LM.HPF (Urine sed) [#/Area] Negative Normal Negative [facility] Comment on above: Order Comment: Speci men Type: URINE SPECIMENOrdering Facility: [facility] Address: [address] [place] [address] Performed By: #### 2 4356-8 ####[facility] LABCLIA [id number] [place] [address] [place] Bilirubin Ql (U) Negative Normal Negative [facility] Comment on above: Order Comment: Speci men Type: URINE SPECIMENOrdering Facility: [facility] Address: [address] [place] [address] Performed By: #### 2 4356-8 ####[facility] LABCLIA [id number] [place] [address] [place] Clarity (Unsp spec) Clear Normal Clear [facility] Comment on above: Order Comment: Speci men Type: URINE SPECIMENOrdering Facility: [facility] Address: [address] [place] [address] Performed By: #### 2 4356-8 ####[facility] LABCLIA [id number] [place] [address] [place] Color (U) Yellow Normal Yellow [facility] Comment on above: Order Comment: Speci men Type: URINE SPECIMENOrdering Facility: [facility] Address: [address] [place] [address] Performed By: #### 2 4356-8 ####[facility] LABCLIA [id number] [place] [address] [place] Epithelial cells LM.HPF (Urine sed) [#/Area] Few Normal [facility] Comment on above: Order Comment: Speci men Type: URINE SPECIMENOrdering Facility: [facility] Address: [address] [place] [address] Performed By: #### 2 4356-8 ####[facility] LABCLIA [id number] [address], [place] [address] [place] Glucose Test strip (U) [Mass/Vol] Negative Normal Negative [facility] Comment on above: Order Comment: Speci men Type: URINE SPECIMENOrdering Facility: [facility] Address: [address] [place] [address] Performed By: #### 2 4356-8 ####[facility] LABCLIA [id number] [address], [place] [address] [place] Hemoglobin Ql (U) Negative Normal Negative [facility] Comment on above: Order Comment: Speci men Type: URINE SPECIMENOrdering Facility: [facility] Address: [address] [place] [address] Performed By: #### 2 4356-8 ####[facility] LABCLIA [id number] [address], [place] [address] [place] Hyaline casts (Urine sed) [#/Area] 0 /[LPF] Normal 0 /LPF [facility] Comment on above: Order Comment: Speci men Type: URINE SPECIMENOrdering Facility: [facility] Address: [address] [place] [address] Performed By: #### 2 4356-8 ####[facility] LABCLIA [id number] [place] [id number] [place] Ketones Ql (U) Negative Normal Negative [facility] Comment on above: Order Comment: Speci men Type: URINE SPECIMENOrdering Facility: [facility] Address: [address] [place] [address] Performed By: #### 2 4356-8 ####[facility] LABCLIA [id number] [address], [facility] [place] Leukocyte esterase Test strip Ql (U) Negative Normal Negative [facility] Comment on above: Order Comment: Speci men Type: URINE SPECIMENOrdering Facility: [facility] Address: [address] [place] [address] Performed By: #### 2 4356-8 ####[facility] LABCLIA [id number] [place] [address] [place] Nitrite Ql (U) Negative Normal Negative [facility] Comment on above: Order Comment: Speci men Type: URINE SPECIMENOrdering Facility: [facility] Address: [address] [place] [address] Performed By: #### 2 4356-8 ####[facility] LABCLIA [id number] [place] [address] [place] pH (U) 5.5 [pH] Normal <8.5 [facility] Comment on above: Order Comment: Speci men Type: URINE SPECIMENOrdering Facility: [facility] Address: [address] [place] [address] Performed By: #### 2 4356-8 ####[facility] LABCLIA [id number] [place] [address] [place] Protein (U) [Mass/Vol] Trace Abnormal Negative Cl [facility] Comment on above: Order Comment: Speci men Type: URINE SPECIMENOrdering Facility: [facility] Address: [address] [place] [address] Performed By: #### 2 4356-8 ####[facility] LABCLIA [id number] [place] [id number] [place] RBC LM.HPF (Urine sed) [#/Area] 0-2 /HPF Normal 0-2 /HPF [facility] Comment on above: Order Comment: Speci men Type: URINE SPECIMENOrdering Facility: [facility] Address: [address] [place] [address] Performed By: #### 2 4356-8 ####[facility] LABCLIA [id number] [place] [address] [place] Specific gravity (U) [Rel density] 1.025 Normal 1.005-1.030 [facility] Comment on above: Order Comment: Speci men Type: URINE SPECIMENOrdering Facility: [facility] Address: [address] [place] [address] Performed By: #### 2 4356-8 ####[facility] LABIA [id number] [place] [id number] [facility] Urobilinogen Ql (U) 0.2 EU/dL Normal 0.2-1.0 EU/dL [facility] Comment on above: Order Comment: Speci men Type: URINE SPECIMENOrdering Facility: [facility] Address: [address] [place] [address] Performed By: #### 2 4356-8 ####[facility] LABIA [id number] [place] [address] [place] WBC LM.HPF (Urine sed) [#/Area] 0-5 /HPF Normal 0-5 /HPF [facility] Comment on above: Order Comment: Speci men Type: URINE SPECIMENOrdering Facility: [facility] Address: [address] [place] [address] Performed By: #### 2 4356-8 ####[facility] LABIA [id number] [place] [id number] [place] 12 Lead EKGon 12-11-2024 12 Lead EKG [facility] [address] [place] [address] 12 Lead EKG 12/11/24 1638 MR#: [id number] Acct: [id number] Name: DIANNE ALVES Rep #: [id number] : 1955 69 From: Tej Corley MD [...] Abnormal ECG Confirmed by JORY CORTÉS, RANJAN ([id number]), associate entertainment editor JUSTYN TURPIN ([id number]) on 12/14/2024 10:57:23 AM Referred By: Confirmed By: RANJAN CORLEY MD 12/14/24 105 Date Tej Corley MD CC: Dr. Leonie Peterson MD; Dr. Titi Jesus MD Signed Normal [facility] Absolute neutrophil countOrd ered By: Titi Jesus on 12-11-2024 Neutrophils (Bld) [#/Vol] 2.7 10*3/uL 2.0-7.7 [facility] Anion gap in Serum or Plasma Ordered By: Titi Jesus on 12-11-2024 Anion gap [Moles/Vol] 13 mmol/L 02-11 [facility] BUN/creatinine ratioOrdered By: Titi Jesus on 12-11-2024 Urea nitrogen/Creatinine [Mass ratio] 11.2 mg/mg - [facility] Basic Metabolic Profile (BMP )on 12-11-2024 BUN/CRE 11.2 RATIO Normal 07-19 [facility] Comment on above: Performed By: #### L 509.7000 #### [facility] [address] [place], [address] Calcium [Mass/Vol] 9.6 mg/dL Normal 7.6-11.0 [facility] Comment on above: Performed By: #### L 509.7000 #### [facility] [address] [place], [address] Chloride [Moles/Vol] 105 mmol/L Normal 98-108 [facility] Comment on above: Performed By: #### L 509.7000 #### [facility] [address] [place], [address] CO2 [Moles/Vol] 23.3 mmol/L Normal 21.0-32.0 [facility] Comment on above: Performed By: #### L 509.7000 #### [facility] [address] [place], [address] Creatinine [Mass/Vol] 1.03 mg/dL Normal 0.70-1.20 [facility] Comment on above: Performed By: #### L 509.7000 #### [facility] [address] [place], [address] ECRCL 60.72 ml/min Normal 50-250 [facility] Comment on above: Performed By: #### L 509.7000 #### [facility] [address] [place], [address] GAP 13 Normal 5-15 [facility] Comment on above: Performed By: #### L 509.7000 #### [facility] [address] [place], [address] GFR/1.73 sq M.predicted among non-blacks MDRD (S/P/Bld) [Vol rate/Area] 59 mL/min/{1.73_m2} Low >60 [facility] Comment on above: Result Comment: mL/m in/1.73m2 CKD-EPI Creatinine Equation (2020) Performed By: #### L 509.7000 #### [facility] [address] [place], [address] Glucose [Mass/Vol] 120 mg/dL High 70-99 [facility] Comment on above: Performed By: #### L 509.7000 #### [facility] [address] [place], [address] Potassium [Moles/Vol] 3.7 mmol/L Normal 3.3-5.1 [facility] Comment on above: Performed By: #### L 509.7000 #### [facility] [address] [place], [place], [address] Sodium [Moles/Vol] 141 mmol/L Normal 133-145 [facility] Comment on above: Performed By: #### L 509.7000 #### [facility] [address] [place], [place], [address] Urea nitrogen [Mass/Vol] 12 mg/dL Normal 4-19 [facility] Comment on above: Performed By: #### L 509.7000 #### [facility] [address] [place], [place], [address] Basic metabolic 2000 panelon 12-11-2024 Anion gap [Moles/Vol] 12 mmol/L Normal 8-15 [facility] Comment on above: Order Comment: Speci men Type: BLOOD SPECIMENOrdering Facility: [facility] Address: [address] [place] [address] Performed By: #### 2 4321-2, 3015-3, ####[facility] LABIA [id number] [place] [address] [place] Calcium [Mass/Vol] 9.8 mg/dL Normal 8.5-10.2 [facility] Comment on above: Order Comment: Speci men Type: BLOOD SPECIMENOrdering Facility: [facility] Address: [address] [place] [address] Performed By: #### 2 4321-2, 3015-3, ####[facility] LABCLIA [id number] [place] [id number] [place] Chloride [Moles/Vol] 104 mmol/L Normal 98-107 [facility] Comment on above: Order Comment: Speci men Type: BLOOD SPECIMENOrdering Facility: [facility] Address: [address] [place] [id number] Performed By: #### 2 4321-2, 6-3, ####[facility] LABCLIA [id number] [place] [id number] [place] CO2 [Moles/Vol] 26 mmol/L Normal 22-30 [facility] Comment on above: Order Comment: Speci men Type: BLOOD SPECIMENOrdering Facility: [facility] Address: [address] [place] [address] Performed By: #### 2 4321-2, 3015-3, ####[facility] LABIA [id number] [place] [id number] [place] Creatinine [Mass/Vol] 1.00 mg/dL High 0.58-0.96 [facility] Comment on above: Order Comment: Speci men Type: BLOOD SPECIMENOrdering Facility: [facility] Address: [address] [place] [address] Performed By: #### 2 4321-2, 3, ####[facility] LABIA [id number] [place] [address] [place] Creatinine and Glomerular filtration rate.predicted panel (S/P/Bld) 61 mL/min/1.73m??? Normal >=60 [facility] Comment on above: Order Comment: Speci men Type: BLOOD SPECIMENOrdering Facility: [facility] Address: [address] [place] [address] Result Comment: Sigrid mated Glomerular Filtration Rate [...] GFR. Performed By: #### 2 4321-2, 6-3, ####[facility] LABCLIA [id number] [place] [id number] [place] Glucose [Mass/Vol] 103 mg/dL High 74-99 [facility] Comment on above: Order Comment: Speci men Type: BLOOD SPECIMENOrdering Facility: [facility] Address: [address] [place] [address] Result Comment: The [place] [employer] (ADA) provides guidance for cutoff [...] Standards of Medical Care in Diabetes 2016, [place] [employer]. Diabetes Care. 2016.39(Suppl 1). Performed By: #### 2 4321-2, 3015-3, ####[facility] [id number] [place] [address] [place] Potassium [Moles/Vol] 4.0 mmol/L Normal 3.7-5.1 [facility] Comment on above: Order Comment: Speci men Type: BLOOD SPECIMENOrdering Facility: [facility] Address: [address] [place], [place] [address] Performed By: #### 2 4321-2, 3, ####[facility] [id number] [place] [address] [place] Sodium [Moles/Vol] 142 mmol/L Normal 136-144 [facility] Comment on above: Order Comment: Speci men Type: BLOOD SPECIMENOrdering Facility: [facility] Address: [address] [place], [place] [address] Performed By: #### 2 4321-2, 3, ####[facility] LABCLIA [id number] [address] [address] [place] Urea nitrogen [Mass/Vol] 10 mg/dL Normal 7-21 [facility] Comment on above: Order Comment: Speci men Type: BLOOD SPECIMENOrdering Facility: [facility] Address: [address] [place] [address] Performed By: #### 2 4321-2, 3016-3, 25592-1 ####[facility] LABCLIA [id number] [address] [address] [place] Basophil percentageOrdered B y: Titi Jesus on 12-11-2024 Basophils/100 WBC (Bld) 0.5 % 0-1 [facility] CBC W Auto Differential pane l (Bld)on 12-11-2024 Basophils (Bld) [#/Vol] 10*3/uL Normal <0.11 [facility] Comment on above: Order Comment: Speci men Type: BLOOD SPECIMENOrdering Facility: [facility] Address: [address] [place] [address] Performed By: #### 5 7021-8 ####[facility] LABCLIA [id number] [place] [address] [place] Basophils/100 WBC (Bld) 0.4 % Normal [facility] Comment on above: Order Comment: Speci men Type: BLOOD SPECIMENOrdering Facility: [facility] Address: [address] [place] [address] Performed By: #### 5 7021-8 ####[facility] LABCLIA [id number] [place] [address] [place] Differential cell count method Nom (Bld) Auto Normal [facility] Comment on above: Order Comment: Speci men Type: BLOOD SPECIMENOrdering Facility: [facility] Address: [address] [place] [address] Performed By: #### 5 7021-8 ####[facility] LABCLIA [id number] [place] [address] [place] Eosinophils (Bld) [#/Vol] 0.26 10*3/uL Normal <0.46 [facility] Comment on above: Order Comment: Speci men Type: BLOOD SPECIMENOrdering Facility: [facility] Address: [address] [place] [address] Performed By: #### 5 7021-8 ####[facility] LABCLIA [id number] [place] [address] [place] Eosinophils/100 WBC (Bld) 4.7 % Normal [facility] Comment on above: Order Comment: Speci men Type: BLOOD SPECIMENOrdering Facility: [facility] Address: [address] [place] [address] Performed By: #### 5 7021-8 ####[facility] LABCLIA [id number] [place] [address] [place] Erythrocyte distribution width (RBC) [Ratio] 14.4 % Normal 11.5-15.0 [facility] Comment on above: Order Comment: Speci men Type: BLOOD SPECIMENOrdering Facility: [facility] Address: [address] [place] [address] Performed By: #### 5 7021-8 ####[facility] LABCLIA [id number] [place] [address] [place] Hematocrit (Bld) [Volume fraction] 41.9 % Normal 36.0-46.0 [facility] Comment on above: Order Comment: Speci men Type: BLOOD SPECIMENOrdering Facility: [facility] Address: [address] [place] [address] Performed By: #### 5 7021-8 ####[facility] LABCLIA [id number] [address], [facility] [place] Hemoglobin (Bld) [Mass/Vol] 13.5 g/dL Normal 11.5-15.5 [facility] Comment on above: Order Comment: Speci men Type: BLOOD SPECIMENOrdering Facility: [facility] Address: [address] [place] [address] Performed By: #### 5 7021-8 ####[facility] LABCLIA [id number] [address] [place] [address] [place] Immature granulocytes (Bld) [#/Vol] 10*3/uL Normal <0.10 [facility] Comment on above: Order Comment: Speci men Type: BLOOD SPECIMENOrdering Facility: [facility] Address: [address] [place] [address] Performed By: #### 5 7021-8 ####[facility] LABCLIA [id number] [place] [address] [place] Immature granulocytes/100 WBC (Bld) 0.0 % Normal [facility] Comment on above: Order Comment: Speci men Type: BLOOD SPECIMENOrdering Facility: [facility] Address: [address] [place] [address] Performed By: #### 5 7021-8 ####[facility] LABCLIA [id number] [place] [address] [place] Lymphocytes (Bld) [#/Vol] 1.81 10*3/uL Normal 1.00-4.00 [facility] Comment on above: Order Comment: Speci men Type: BLOOD SPECIMENOrdering Facility: [facility] Address: [address] [place] [address] Performed By: #### 5 7021-8 ####[facility] LABCLIA [id number] [place] [id number] [place] Lymphocytes/100 WBC (Bld) 32.4 % Normal [facility] Comment on above: Order Comment: Speci men Type: BLOOD SPECIMENOrdering Facility: [facility] Address: [address] [place] [address] Performed By: #### 5 7021-8 ####[facility] LABIA [id number] [place] [address] [place] MCH (RBC) [Entitic mass] 28.8 pg Normal 26.0-34.0 [facility] Comment on above: Order Comment: Speci men Type: BLOOD SPECIMENOrdering Facility: [facility] Address: [address] [place] [address] Performed By: #### 5 7021-8 ####[facility] LABIA [id number] [place] [address] [place] MCHC (RBC) [Mass/Vol] 32.2 g/dL Normal 30.5-36.0 [facility] Comment on above: Order Comment: Speci men Type: BLOOD SPECIMENOrdering Facility: [facility] Address: [address] [place] [address] Performed By: #### 5 7021-8 ####[facility] LABIA [id number] [place] [address] [place] MCV (RBC) [Entitic vol] 89.5 fL Normal 80.0-100.0 [facility] Comment on above: Order Comment: Speci men Type: BLOOD SPECIMENOrdering Facility: [facility] Address: [address] [place] [address] Performed By: #### 5 7021-8 ####[facility] [id number] [place] [address] [place] Monocytes (Bld) [#/Vol] 0.39 10*3/uL Normal <0.87 [facility] Comment on above: Order Comment: Speci men Type: BLOOD SPECIMENOrdering Facility: [facility] Address: [address] [place] [address] Performed By: #### 5 7021-8 ####[facility] LABIA [id number] [address] [place] Monocytes/100 WBC (Bld) 7.0 % Normal [facility] Comment on above: Order Comment: Speci men Type: BLOOD SPECIMENOrdering Facility: [facility] Address: [address] [place] [address] Performed By: #### 5 7021-8 ####[facility] LABCLIA [id number] [place] [id number] [place] Neutrophils (Bld) [#/Vol] 3.11 10*3/uL Normal 1.45-7.50 [facility] Comment on above: Order Comment: Speci men Type: BLOOD SPECIMENOrdering Facility: [facility] Address: [address] [place] [address] Performed By: #### 5 7021-8 ####[facility] LABCLIA [id number] [place] [address] [place] Neutrophils/100 WBC (Bld) 55.5 % Normal [facility] Comment on above: Order Comment: Speci men Type: BLOOD SPECIMENOrdering Facility: [facility] Address: [address] [place] [address] Performed By: #### 5 7021-8 ####[facility] LABCLIA [id number] [place] [address] [place] Nucleated RBC (Bld) [#/Vol] 10*3/uL Normal <0.01 [facility] Comment on above: Order Comment: Speci men Type: BLOOD SPECIMENOrdering Facility: [facility] Address: [address] [place] [address] Performed By: #### 5 7021-8 ####[facility] LABCLIA [id number] [place] [address] [place] Nucleated RBC/100 WBC (Bld) [Ratio] 0.0 /100 WBC Normal [facility] Comment on above: Order Comment: Speci men Type: BLOOD SPECIMENOrdering Facility: [facility] Address: [address] [place] [address] Performed By: #### 5 7021-8 ####[facility] LABCLIA [id number] [facility] [address] [place] [address] [place] Platelet mean volume (Bld) [Entitic vol] 10.2 fL Normal 9.0-12.7 [facility] Comment on above: Order Comment: Speci men Type: BLOOD SPECIMENOrdering Facility: [facility] Address: [address] [place] [address] Performed By: #### 5 7021-8 ####[facility] LABCLIA [id number] [address] [place] [address] [place] Platelets (Bld) [#/Vol] 259 10*3/uL Normal 150-400 [facility] Comment on above: Order Comment: Speci men Type: BLOOD SPECIMENOrdering Facility: [facility] Address: [address] [place] [address] Performed By: #### 5 7021-8 ####[facility] LABIA [id number] [address] [place] [address] [place] RBC (Bld) [#/Vol] 4.68 10*6/uL Normal 3.90-5.20 [facility] Comment on above: Order Comment: Speci men Type: BLOOD SPECIMENOrdering Facility: [facility] Address: [address] [place] [address] Performed By: #### 5 7021-8 ####[facility] LABCLIA [id number] [address] [place] [address] [place] WBC (Bld) [#/Vol] 5.59 10*3/uL Normal 3.70-11.00 [facility] Comment on above: Order Comment: Speci men Type: BLOOD SPECIMENOrdering Facility: [facility] Address: [address] [place] [address] Performed By: #### 5 7021-8 ####[facility] LABIA [id number] [address] [place] [address] [place] CBC W/Diff, Automatedon 03-1 Absolute Lymph 2.11 X10 3/uL Normal 0.83-4.51 [facility] Comment on above: Performed By: #### L 509.7000 #### [facility] [address] [place], [address] Absolute Neut 2.7 X10 3/uL Normal 2.0-7.7 [facility] Comment on above: Performed By: #### L 509.7000 #### [facility] [address] [place], [address] Basophils/100 WBC (Bld) 0.5 % Normal 0-1 [facility] Comment on above: Performed By: #### L 509.7000 #### [facility] [address] [place], [address] Eosinophils/100 WBC (Bld) 4.8 % Normal 0-5 [facility] Comment on above: Performed By: #### L 509.7000 #### [facility] [address] [place], [address] Erythrocyte distribution width (RBC) [Ratio] 14.3 % Normal 11.6-14.6 [facility] Comment on above: Performed By: #### L 509.7000 #### [facility] [address] [place], [address] Hematocrit (Bld) [Volume fraction] 39.5 % Normal 37-47 [facility] Comment on above: Performed By: #### L 509.7000 #### [facility] [address] [place], [address] Hemoglobin (Bld) [Mass/Vol] 13.0 g/dL Normal 12.0-15.0 [facility] Comment on above: Performed By: #### L 509.7000 #### [facility] [address] [place], [address] IG% 0.200 Normal 0.0-0.9 [facility] Comment on above: Result Comment: IG% - Immature Granulocytes (promyelocytes, myelocytes and metamyelocytes) > 1% indicates that a LEFT SHIFT is Present. Performed By: #### L 509.7000 #### [facility] [address] [place], [address] Lymphocytes/100 WBC (Bld) 37.9 % Normal 19-41 [facility] Comment on above: Performed By: #### L 509.7000 #### [facility] [address] [place], [address] MCH (RBC) [Entitic mass] 28.8 pg Normal 27.0-32.0 [facility] Comment on above: Performed By: #### L 509.7000 #### [facility] [address] [place], [address] MCHC (RBC) [Mass/Vol] 32.9 g/dL Normal 32-36 [facility] Comment on above: Performed By: #### L 509.7000 #### [facility] [address] [place], [address] MCV (RBC) [Entitic vol] 87.6 fL Normal 81-99 [facility] Comment on above: Performed By: #### L 509.7000 #### [facility] [address] [place], [address] Monocytes/100 WBC (Bld) 7.5 % Normal 0-10 [facility] Comment on above: Performed By: #### L 509.7000 #### [facility] [address] [place], [address] Neutrophils/100 WBC (Bld) 49.1 % Normal 47-70 [facility] Comment on above: Performed By: #### L 509.7000 #### [facility] [address] [place], [address] Nucleated RBC (Bld) [#/Vol] 0 10*3/uL Normal 0-5 [facility] Comment on above: Performed By: #### L 509.7000 #### [facility] [address] [place], [address] Platelet mean volume (Bld) [Entitic vol] 9.5 fL Normal 6.2-12.0 [facility] Comment on above: Performed By: #### L 509.7000 #### [facility] [address] [place], [address] Platelets (Bld) [#/Vol] 266 10*3/uL Normal 150-450 [facility] Comment on above: Performed By: #### L 509.7000 #### [facility] [address] [place], [address] RBC (Bld) [#/Vol] 4.51 10*6/uL Normal 4.2-5.4 [facility] Comment on above: Performed By: #### L 509.7000 #### [facility] [address] [place], [address] RDW SD 45.6 fl High 35.1-43.9 [facility] Comment on above: Performed By: #### L 509.7000 #### [facility] [address] [place], [address] WBC (Bld) [#/Vol] 5.6 10*3/uL Normal 4.4-11.0 [facility] Comment on above: Performed By: #### L 509.7000 #### [facility] [address] [place], [address] CNOVon 12-11-2024 CNOV Normal [facility] CTA Chest W/WO Contraston CTA Chest W/WO Contrast [facility] Imaging Services [address] [place] [address] CTA Chest W/WO Contrast MR#: [id number] Acct: [id number] Name: DIANNE ALVES Rep #: [id number] : 1955 F 69 From: Ramirez griggs MD PCP: Dr. Leonie Peterson MD Status: REG ER Study: CTA Chest W/WO Contrast Date of Exam: 12/11/24 Exam# [id number] Ordering Dr: Titi Jesus MD PROCEDURE: CTA [...] use of iterative reconstruction technique). Reading Location: [facility] CC: Dr. Leonie Peterson MD; Dr. Titi Jesus MD Chief Ii Dispatcher: Signed Normal [facility] Carbon dioxide, total [Moles /volume] in Central venous bloodOrdered By: Titi Jesus on 12-11-2024 CO2 [Moles/Vol] 23.3 mmol/L 21.0-32.0 [facility] Chloride assayOrdered By: Zheng Jesus on 12-11-2024 Chloride [Moles/Vol] 105 mmol/L 98-108 [facility] D dimer FEU PPP-mCncon 12-11 Fibrin D-dimer FEU (PPP) [Mass/Vol] 4180 ng/mL FEU High <500 [facility] Comment on above: Order Comment: Speci men Type: BLOOD SPECIMENOrdering Facility: [facility] Address: [address] [place] [address] Performed By: #### 4 8065-7 ####[facility] LABCLIA [id number] [place] [address] [place] NRE50po 12-11-2024 ECG01 Normal [facility] Emergency Department Summary on 12-11-2024 Emergency Department Summary [facility] Medical Records Department [address] [place] [address] Emergency Department Summary 12/11/24 MR#: [id number] Acct: [id number] Name: DIANNE ALVES Rep #: [id number] : 1955 69 From: Titi Jesus MD [...] Prior similar symptoms: No Recent Illness/Hospitalization: Yes [facility] Medical History Type 2 acute [...] hematuria Musculoskeletal (more content not included)... Normal [facility] Eosinophil percentageOrdered By: Titi Jesus on 12-11-2024 Eosinophils/100 WBC (Bld) 4.8 % 0-5 [facility] Erythrocyte distribution wid th ratioOrdered By: Titi Jesus on 12-11-2024 Erythrocyte distribution width (RBC) [Ratio] 14.3 % 11.6-14.6 [facility] Erythrocyte distribution wid th standard deviationOrdered By: Titi Jesus on 12-11-2024 Erythrocyte distribution width (RBC) [Entitic vol] 45.6 fL High 35.1-43.9 [facility] Estimation of creatinine adriana aranceOrdered By: Titi Jesus on 12-11-2024 Estimated Creatinine Clearance Calc 60.72 ml/min 50-250 [facility] Fibrin D-dimer FEU (PPP) [Ma ss/Vol]on 12-11-2024 D DIMER AGE-RELATED CUTOFF 680 ng/mL FEU Normal [facility] Comment on above: Order Comment: Speci men Type: BLOOD SPECIMENOrdering Facility: [facility] Address: [address] [place] [address] Performed By: #### 4 8065-7 ####[facility] LABCLIA [id number] [place] [address] [place] GFR/1.73 sq M.predicted zeina g non-blacks MDRD (S/P/Bld) [Vol rate/Area]Ordered By: Titi Jesus on 12-11-2024 Estimated GFR (MDRD) Non-Af Amer 59 Low >60 [facility] Comment on above: mL/min/1.73m2 CKD-EP I Creatinine Equation (2020) Hematocrit Auto (Bld) [Volum e fraction]Ordered By: Titi Jesus on 12-11-2024 Hematocrit (Bld) [Volume fraction] 39.5 % 37-47 [facility] Hemoglobin measurementOrdere d By: Titi Jesus on 12-11-2024 Hemoglobin (Bld) [Mass/Vol] 13.0 g/dL 12.0-15.0 [facility] Immature granulocytes/100 WB C Auto (Bld)Ordered By: Titi Jesus on 12-11-2024 Immature granulocytes/100 WBC (Bld) 0.200 % 0.0-0.9 [facility] Comment on above: IG% - Immature Granu locytes (promyelocytes, myelocytes and metamyelocytes) > 1% indicates that a LEFT SHIFT is Present. L499.0042on 12-11-2024 Trop T High Sen Normal <=14 [facility] Comment on above: Result Comment: Moraima abel via OM: Ordered Performed By: #### L 509.7000 #### [facility] [address] [place], [address] L501.4021on 12-11-2024 Trop T High Sen 14 ng/L Normal <=14 [facility] Comment on above: Performed By: #### L 501.4021 ####[facility] [address] [place], [address] Lymphocytes Auto (Unsp spec) [#/Vol]Ordered By: Titi Jesus on 12-11-2024 Lymphocytes (Bld) [#/Vol] 2.11 10*3/uL 0.83-4.51 [facility] Lymphocytes/100 WBC Auto (Un sp spec)Ordered By: Titi Jesus on 12-11-2024 Lymphocytes/100 WBC (Bld) 37.9 % 19-41 [facility] MCV (mean corpuscular volume ) determinationOrdered By: Titi Jesus on 12-11-2024 MCV (RBC) [Entitic vol] 87.6 fL 81-99 [facility] Magnesium SerPl-mCncon 12-11 Magnesium [Mass/Vol] 2.0 mg/dL Normal 1.7-2.3 [facility] Comment on above: Order Comment: Speci men Type: BLOOD SPECIMENOrdering Facility: [facility] Address: [address] [place] [address] Performed By: #### 2 4321-2, 3016-3, 75351-4 ####[facility] LABCLIA [id number] [place] [address] [place] Mean corpuscular hemoglobin (MCH) determinationOrdered By: Titi Jesus on 12-11-2024 MCH (RBC) [Entitic mass] 28.8 pg 27.0-32.0 [facility] Mean corpuscular hemoglobin concentration (MCHC) determinationOrdered By: Titi Jesus on 12-11-2024 MCHC (RBC) [Mass/Vol] 32.9 g/dL 32-36 [facility] Mean platelet volume determi nationOrdered By: Titi Jesus on 12-11-2024 Platelet mean volume (Bld) [Entitic vol] 9.5 fL 6.2-12.0 [facility] Monocyte percentageOrdered B y: Titi Jesus on 12-11-2024 Monocytes/100 WBC (Bld) 7.5 % 0-10 [facility] Neutrophil percentageOrdered By: Titi Jesus on 12-11-2024 Neutrophils/100 WBC (Bld) 49.1 % 47-70 [facility] No Panel InformationOrdered By: Titi Jesus on 12-11-2024 Troponin T High Sensitivity 14 ng/L <14 [facility] Nucleated red blood cell per centageOrdered By: Titi Jesus on 12-11-2024 Nucleated RBC/100 WBC (Bld) [Ratio] 0 % 0-5 [facility] Platelet countOrdered By: Zheng Jesus on 12-11-2024 Platelets (Bld) [#/Vol] 266 10*3/uL 150-450 [facility] Potassium (Unsp spec) [Mass/ Vol]Ordered By: Titi Jesus on 12-11-2024 Potassium [Moles/Vol] 3.7 mmol/L 3.3-5.1 [facility] RBC Auto (Bld) [#/Vol]Ordere d By: Titi Jesus on 12-11-2024 RBC (Bld) [#/Vol] 4.51 10*6/uL 4.2-5.4 [facility] Serum creatinine measurement (mass/volume)Ordered By: Titi Jesus on 12-11-2024 Creatinine [Mass/Vol] 1.03 mg/dL 0.70-1.20 [facility] Serum glucose measurement (m ass/volume)Ordered By: Titi Jesus on 12-11-2024 Glucose [Mass/Vol] 120 mg/dL High 70-99 [facility] Serum or plasma calcium margarita urement (mass/volume)Ordered By: Titi Jesus on 12-11-2024 Calcium [Mass/Vol] 9.6 mg/dL 7.6-11.0 [facility] Serum or plasma urea nitroge n measurement (mass/volume)Ordered By: Titi Jesus on 12-11-2024 Urea nitrogen [Mass/Vol] 12 mg/dL 4-19 [facility] Sodium levelOrdered By: Titi Jesus on 12-11-2024 Sodium [Moles/Vol] 141 mmol/L 133-145 [facility] TSH SerPl-aCncon 12-11-2024 TSH Qn 0.610 m[IU]/L Normal 0.270-4.200 [facility] Comment on above: Order Comment: Speci men Type: BLOOD SPECIMENOrdering Facility: [facility] Address: [address] [place] [address] Performed By: #### 2 4321-2, 3016-3, 94276-5 ####[facility] LABCLIA [id number] [address] White blood cell (WBC) count Ordered By: Titi Jesus on 12-11-2024 WBC (Bld) [#/Vol] 5.6 10*3/uL 4.4-11.0 [facility] XR CHEST 2V FRONTAL/LATon XR CHEST 2V FRONTAL/LAT Normal [facility] BD DXA - AXIAL SKELETONon BD DXA - AXIAL SKELETON Normal [facility] BD DXA TRABECLR BONE SCORE ( TBS)on 12-10-2024 BD DXA TRABECLR BONE SCORE (TBS) Normal [facility] Basic Metabolic Profile (BMP )on 11-26-2024 BUN Normal 7-18 [facility] Comment on above: Result Comment: Canc elled via OM: Order cancelled - Patient discharged Performed By: #### L 100.0100, L500.2500 #### [facility] [address] [place], [address] BUN/CRE Normal 10-20 [facility] Comment on above: Result Comment: Canc elled via OM: Order cancelled - Patient discharged Performed By: #### L 100.0100, L500.2500 #### [facility] [address] [place], [address] CA,Total Normal 8.5-10.1 [facility] Comment on above: Result Comment: Canc elled via OM: Order cancelled - Patient discharged Performed By: #### L 100.0100, L500.2500 #### [facility] [address] [place], [address] CL Normal 98-107 [facility] Comment on above: Result Comment: Canc elled via OM: Order cancelled - Patient discharged Performed By: #### L 100.0100, L500.2500 #### [facility] [address] [place], [address] CO2 Normal 21.0-32.0 [facility] Comment on above: Result Comment: Canc elled via OM: Order cancelled - Patient discharged Performed By: #### L 100.0100, L500.2500 #### [facility] [address] [place], [address] CREAT,SERUM Normal 0.55-1.02 [facility] Comment on above: Result Comment: Canc elled via OM: Order cancelled - Patient discharged Performed By: #### L 100.0100, L500.2500 #### [facility] [address] [place], [address] EST GFR Normal >60 [facility] Comment on above: Result Comment: Canc elled via OM: Order cancelled - Patient discharged Performed By: #### L 100.0100, L500.2500 #### [facility] [address] [place], [address] EST GFR - AA Normal >60 [facility] Comment on above: Result Comment: Canc elled via OM: Order cancelled - Patient discharged Performed By: #### L 100.0100, L500.2500 #### [facility] [address] [place], [address] GAP Normal 5-15 [facility] Comment on above: Result Comment: Canc elled via OM: Order cancelled - Patient discharged Performed By: #### L 100.0100, L500.2500 #### [facility] [address] [place], [address] GLU Normal 74-106 [facility] Comment on above: Result Comment: Canc elled via OM: Order cancelled - Patient discharged Performed By: #### L 100.0100, L500.2500 #### [facility] [address] [place], [address] Potassium Normal 3.5-5.1 [facility] Comment on above: Result Comment: Canc elled via OM: Order cancelled - Patient discharged Performed By: #### L 100.0100, L500.2500 #### [facility] [address] [place], [address] Basic Metabolic Profile (BMP) Normal 136-145 [facility] Comment on above: Result Comment: Canc elled via OM: Order cancelled - Patient discharged Performed By: #### L 100.0100, L500.2500 #### [facility] [address] [place], [address] CBC W/Diff, Automatedon 02-2 Absolute Neut Normal 2.0-7.7 [facility] Comment on above: Result Comment: Canc elled via OM: Order cancelled - Patient discharged Performed By: #### L 100.0100, L500.2500 #### [facility] [address] [place], [address] HCT Normal 37-47 [facility] Comment on above: Result Comment: Canc elled via OM: Order cancelled - Patient discharged Performed By: #### L 100.0100, L500.2500 #### [facility] [address] [place], [address] HGB Normal 12.0-15.0 [facility] Comment on above: Result Comment: Canc elled via OM: Order cancelled - Patient discharged Performed By: #### L 100.0100, L500.2500 #### [facility] [address] [place], [address] MCH Normal 27.0-32.0 [facility] Comment on above: Result Comment: Canc elled via OM: Order cancelled - Patient discharged Performed By: #### L 100.0100, L500.2500 #### [facility] [address] [place], [address] MCHC Normal 32-36 [facility] Comment on above: Result Comment: Canc elled via OM: Order cancelled - Patient discharged Performed By: #### L 100.0100, L500.2500 #### [facility] [address] [place], [address] MCV Normal 81-99 [facility] Comment on above: Result Comment: Canc elled via OM: Order cancelled - Patient discharged Performed By: #### L 100.0100, L500.2500 #### [facility] [address] [place], [address] NEUT% Normal 47-70 [facility] Comment on above: Result Comment: Canc elled via OM: Order cancelled - Patient discharged Performed By: #### L 100.0100, L500.2500 #### [facility] [address] [place], [address] PLT Normal 150-450 [facility] Comment on above: Result Comment: Canc elled via OM: Order cancelled - Patient discharged Performed By: #### L 100.0100, L500.2500 #### [facility] [address] [place], [address] RBC Normal 4.2-5.4 [facility] Comment on above: Result Comment: Canc elled via OM: Order cancelled - Patient discharged Performed By: #### L 100.0100, L500.2500 #### [facility] [address] [place], [address] RDW CV Normal 11.6-14.6 [facility] Comment on above: Result Comment: Canc elled via OM: Order cancelled - Patient discharged Performed By: #### L 100.0100, L500.2500 #### [facility] [facility] [address] [place], [address] RDW SD Normal 35.1-43.9 [facility] Comment on above: Result Comment: Canc elled via OM: Order cancelled - Patient discharged Performed By: #### L 100.0100, L500.2500 #### [facility] [address] [place], [address] WBC Normal 4.4-11.0 [facility] Comment on above: Result Comment: Canc elled via OM: Order cancelled - Patient discharged Performed By: #### L 100.0100, L500.2500 #### [facility] [address] [place], [address] Basic Metabolic Profile (BMP )on 11-25-2024 BUN Normal 7-18 [facility] Comment on above: Result Comment: Canc elled via OM: Order cancelled - Patient discharged Performed By: #### L 100.0100, L500.2500 #### [facility] [address] [place], [address] BUN/CRE Normal 10-20 [facility] Comment on above: Result Comment: Canc elled via OM: Order cancelled - Patient discharged Performed By: #### L 100.0100, L500.2500 #### [facility] [address] [place], [address] CA,Total Normal 8.5-10.1 [facility] Comment on above: Result Comment: Canc elled via OM: Order cancelled - Patient discharged Performed By: #### L 100.0100, L500.2500 #### [facility] [address] [place], [address] CL Normal 98-107 [facility] Comment on above: Result Comment: Canc elled via OM: Order cancelled - Patient discharged Performed By: #### L 100.0100, L500.2500 #### [facility] [address] [place], [address] CO2 Normal 21.0-32.0 [facility] Comment on above: Result Comment: Canc elled via OM: Order cancelled - Patient discharged Performed By: #### L 100.0100, L500.2500 #### [facility] [address] [place], [address] CREAT,SERUM Normal 0.55-1.02 [facility] Comment on above: Result Comment: Canc elled via OM: Order cancelled - Patient discharged Performed By: #### L 100.0100, L500.2500 #### [facility] [address] [place], [address] EST GFR Normal >60 [facility] Comment on above: Result Comment: Canc elled via OM: Order cancelled - Patient discharged Performed By: #### L 100.0100, L500.2500 #### [facility] [address] [place], [address] EST GFR - AA Normal >60 [facility] Comment on above: Result Comment: Canc elled via OM: Order cancelled - Patient discharged Performed By: #### L 100.0100, L500.2500 #### [facility] [address] [place], [address] GAP Normal 5-15 [facility] Comment on above: Result Comment: Canc elled via OM: Order cancelled - Patient discharged Performed By: #### L 100.0100, L500.2500 #### [facility] [address] [place], [address] GLU Normal 74-106 [facility] Comment on above: Result Comment: Canc elled via OM: Order cancelled - Patient discharged Performed By: #### L 100.0100, L500.2500 #### [facility] [address] [place], [address] Potassium Normal 3.5-5.1 [facility] Comment on above: Result Comment: Canc elled via OM: Order cancelled - Patient discharged Performed By: #### L 100.0100, L500.2500 #### [facility] [address] [place], [address] Basic Metabolic Profile (BMP) Normal 136-145 [facility] Comment on above: Result Comment: Canc elled via OM: Order cancelled - Patient discharged Performed By: #### L 100.0100, L500.2500 #### [facility] [address] [place], [address] CBC W/Diff, Automatedon 02-2 Absolute Neut Normal 2.0-7.7 [facility] Comment on above: Result Comment: Canc elled via OM: Order cancelled - Patient discharged Performed By: #### L 100.0100, L500.2500 #### [facility] [address] [place], [address] HCT Normal 37-47 [facility] Comment on above: Result Comment: Canc elled via OM: Order cancelled - Patient discharged Performed By: #### L 100.0100, L500.2500 #### [facility] [address] [place], [address] HGB Normal 12.0-15.0 [facility] Comment on above: Result Comment: Canc elled via OM: Order cancelled - Patient discharged Performed By: #### L 100.0100, L500.2500 #### [facility] [address] [place], [address] MCH Normal 27.0-32.0 [facility] Comment on above: Result Comment: Canc elled via OM: Order cancelled - Patient discharged Performed By: #### L 100.0100, L500.2500 #### [facility] [address] [place], [address] MCHC Normal 32-36 [facility] Comment on above: Result Comment: Canc elled via OM: Order cancelled - Patient discharged Performed By: #### L 100.0100, L500.2500 #### [facility] [address] [place], [address] MCV Normal 81-99 [facility] Comment on above: Result Comment: Canc elled via OM: Order cancelled - Patient discharged Performed By: #### L 100.0100, L500.2500 #### [facility] [address] [place], [address] NEUT% Normal 47-70 [facility] Comment on above: Result Comment: Canc elled via OM: Order cancelled - Patient discharged Performed By: #### L 100.0100, L500.2500 #### [facility] [address] [place], [address] PLT Normal 150-450 [facility] Comment on above: Result Comment: Canc elled via OM: Order cancelled - Patient discharged Performed By: #### L 100.0100, L500.2500 #### [facility] [address] [place], [address] RBC Normal 4.2-5.4 [facility] Comment on above: Result Comment: Canc elled via OM: Order cancelled - Patient discharged Performed By: #### L 100.0100, L500.2500 #### [facility] [address] [place], [address] RDW CV Normal 11.6-14.6 [facility] Comment on above: Result Comment: Canc elled via OM: Order cancelled - Patient discharged Performed By: #### L 100.0100, L500.2500 #### [facility] [address] [place], [address] RDW SD Normal 35.1-43.9 [facility] Comment on above: Result Comment: Canc elled via OM: Order cancelled - Patient discharged Performed By: #### L 100.0100, L500.2500 #### [facility] [address] [place], [address] WBC Normal 4.4-11.0 [facility] Comment on above: Result Comment: Canc elled via OM: Order cancelled - Patient discharged Performed By: #### L 100.0100, L500.2500 #### [facility] [address] [place], [address] Basic Metabolic Profile (BMP )on 11-24-2024 BUN Normal 7-18 [facility] Comment on above: Result Comment: Canc elled via OM: Order cancelled - Patient discharged Performed By: #### L 509.7000 #### [facility] [address] [place], [address] BUN/CRE Normal 10-20 [facility] Comment on above: Result Comment: Canc elled via OM: Order cancelled - Patient discharged Performed By: #### L 509.7000 #### [facility] [address] [place], [address] CA,Total Normal 8.5-10.1 [facility] Comment on above: Result Comment: Canc elled via OM: Order cancelled - Patient discharged Performed By: #### L 509.7000 #### [facility] [address] [place], [address] CL Normal 98-107 [facility] Comment on above: Result Comment: Canc elled via OM: Order cancelled - Patient discharged Performed By: #### L 509.7000 #### [facility] [address] [place], [address] CO2 Normal 21.0-32.0 [facility] Comment on above: Result Comment: Canc elled via OM: Order cancelled - Patient discharged Performed By: #### L 509.7000 #### [facility] [address] [place], [address] CREAT,SERUM Normal 0.55-1.02 [facility] Comment on above: Result Comment: Canc elled via OM: Order cancelled - Patient discharged Performed By: #### L 509.7000 #### [facility] [address] [place], [address] EST GFR Normal >60 [facility] Comment on above: Result Comment: Canc elled via OM: Order cancelled - Patient discharged Performed By: #### L 509.7000 #### [facility] [address] [place], [address] EST GFR - AA Normal >60 [facility] Comment on above: Result Comment: Canc elled via OM: Order cancelled - Patient discharged Performed By: #### L 509.7000 #### [facility] [address] [place], [address] GAP Normal 5-15 [facility] Comment on above: Result Comment: Canc elled via OM: Order cancelled - Patient discharged Performed By: #### L 509.7000 #### [facility] [address] [place], [address] GLU Normal 74-106 [facility] Comment on above: Result Comment: Canc elled via OM: Order cancelled - Patient discharged Performed By: #### L 509.7000 #### [facility] [address] [place], [address] Potassium Normal 3.5-5.1 [facility] Comment on above: Result Comment: Canc elled via OM: Order cancelled - Patient discharged Performed By: #### L 509.7000 #### [facility] [address] [place], [address] Basic Metabolic Profile (BMP) Normal 136-145 [facility] Comment on above: Result Comment: Canc elled via OM: Order cancelled - Patient discharged Performed By: #### L 509.7000 #### [facility] [address] [place], [address] CBC W/Diff, Automatedon 02-2 Absolute Neut Normal 2.0-7.7 [facility] Comment on above: Result Comment: Canc elled via OM: Order cancelled - Patient discharged Performed By: #### L 509.7000 #### [facility] [address] [place], [address] HCT Normal 37-47 [facility] Comment on above: Result Comment: Canc elled via OM: Order cancelled - Patient discharged Performed By: #### L 509.7000 #### [facility] [address] [place], [address] HGB Normal 12.0-15.0 [facility] Comment on above: Result Comment: Canc elled via OM: Order cancelled - Patient discharged Performed By: #### L 509.7000 #### [facility] [address] [place], [address] MCH Normal 27.0-32.0 [facility] Comment on above: Result Comment: Canc elled via OM: Order cancelled - Patient discharged Performed By: #### L 509.7000 #### [facility] [address] [place], [address] MCHC Normal 32-36 [facility] Comment on above: Result Comment: Canc elled via OM: Order cancelled - Patient discharged Performed By: #### L 509.7000 #### [facility] [address] [place], [address] MCV Normal 81-99 [facility] Comment on above: Result Comment: Canc elled via OM: Order cancelled - Patient discharged Performed By: #### L 509.7000 #### [facility] [address] [place], [address] NEUT% Normal 47-70 [facility] Comment on above: Result Comment: Canc elled via OM: Order cancelled - Patient discharged Performed By: #### L 509.7000 #### [facility] [address] [place], [address] PLT Normal 150-450 [facility] Comment on above: Result Comment: Canc elled via OM: Order cancelled - Patient discharged Performed By: #### L 509.7000 #### [facility] [address] [place], [address] RBC Normal 4.2-5.4 [facility] Comment on above: Result Comment: Canc elled via OM: Order cancelled - Patient discharged Performed By: #### L 509.7000 #### [facility] [address] [place], [address] RDW CV Normal 11.6-14.6 [facility] Comment on above: Result Comment: Canc elled via OM: Order cancelled - Patient discharged Performed By: #### L 509.7000 #### [facility] [address] [place], [address] RDW SD Normal 35.1-43.9 [facility] Comment on above: Result Comment: Canc elled via OM: Order cancelled - Patient discharged Performed By: #### L 509.7000 #### [facility] [address] [place], [address] WBC Normal 4.4-11.0 [facility] Comment on above: Result Comment: Canc elled via OM: Order cancelled - Patient discharged Performed By: #### L 509.7000 #### [facility] [address] [place], [address] 12 Lead EKGon 11-23-2024 12 Lead EKG [facility] [address] [place] [address] 12 Lead EKG 11/23/24 0538 MR#: [id number] Acct: [id number] Name: DIANNE ALVES Rep #: [id number] : 1955 69 From: Amrik Weber MD Attending Dr: Dr. Stephenie Yu MD Status: ADM IN Ordering Dr: Rita Kenny MD Date: 11/23/24 Location: [facility] Sex: F AA Admitted: 11/17/24 Test Reason [...] ischemia Abnormal ECG Confirmed by Amrik Weber ([id number]), associate entertainment editor JUSTYN TURPIN ([id number]) on 11/23/2024 10:37:36 AM Referred By: Confirmed By: Amrik Weber 11/23/24 1037 Date Amrik Weber MD CC: Dr. Leonie Peterson MD; Dr. Rita Kenny MD; Dr. Stephenie Yu MD Signed Normal [facility] Absolute neutrophil countOrd ered By: Rita Kenny on 11-23-2024 Neutrophils (Bld) [#/Vol] 7.1 10*3/uL 2.0-7.7 [facility] Basic Metabolic Profile (BMP )on 11-23-2024 BUN/CRE 28.2 RATIO High 10-20 [facility] Comment on above: Performed By: #### L 100.0100, L500.2500 #### [facility] [address] [place], [address] CA,Total 9.0 mg/dL Normal 8.5-10.1 [facility] Comment on above: Performed By: #### L 100.0100, L500.2500 #### [facility] [address] [place], [address] Chloride [Moles/Vol] 103 mmol/L Normal 98-107 [facility] Comment on above: Performed By: #### L 100.0100, L500.2500 #### [facility] [address] [place], [address] CO2 [Moles/Vol] 26.0 mmol/L Normal 21.0-32.0 [facility] Comment on above: Performed By: #### L 100.0100, L500.2500 #### [facility] [address] [place], [address] Creatinine [Mass/Vol] 1.17 mg/dL High 0.55-1.02 [facility] Comment on above: Result Comment: The validity of the calculated GFR GFRAA in patients over 70 years has not been determined. Clinical correlation is essential. Performed By: #### L 100.0100, L500.2500 #### [facility] [address] [place], [address] ECRCL 52.87 ml/min Normal [facility] Comment on above: Performed By: #### L 100.0100, L500.2500 #### [facility] [address] [place], [address] EST GFR - AA 59 mL/min Low >60 [facility] Comment on above: Result Comment: Afri can Ecuadorean GFR Calc Performed By: #### L 100.0100, L500.2500 #### [facility] [address] [place], [address] GAP 7 Normal 5-15 [facility] Comment on above: Performed By: #### L 100.0100, L500.2500 #### [facility] [address] [place], [address] GFR/1.73 sq M.predicted among non-blacks MDRD (S/P/Bld) [Vol rate/Area] 49 mL/min/{1.73_m2} Low >60 [facility] Comment on above: Result Comment: Non- GFR Calc Performed By: #### L 100.0100, L500.2500 #### [facility] [address] [place], [address] Glucose [Mass/Vol] 113 mg/dL High 74-106 [facility] Comment on above: Result Comment: Fast ing Glucose result from 100 to 125 mg/dL suggests IMPAIRED HOMEOSTASIS per A.D.A. criteria. Performed By: #### L 100.0100, L500.2500 #### [facility] [address] [place], [address] Potassium [Moles/Vol] 4.5 mmol/L Normal 3.5-5.1 [facility] Comment on above: Performed By: #### L 100.0100, L500.2500 #### [facility] [address] [place], [address] Sodium [Moles/Vol] 136 mmol/L Normal 136-145 [facility] Comment on above: Performed By: #### L 100.0100, L500.2500 #### [facility] [address] [place], [address] Urea nitrogen [Mass/Vol] 33 mg/dL High 7-18 [facility] Comment on above: Performed By: #### L 100.0100, L500.2500 #### [facility] [address] [place], [address] Basophil percentageOrdered B y: Rita Kenny on 11-23-2024 Basophils/100 WBC (Bld) 0.3 % 0-1 [facility] Blood urea nitrogen (BUN)/cr eatinine ratioOrdered By: Rita Kenny on 11-23-2024 Urea nitrogen/Creatinine [Mass ratio] 28.2 mg/mg High 10-20 [facility] CBC W/Diff, Automatedon 11-01 Absolute Lymph 2.32 X10 3/uL Normal 0.83-4.51 [facility] Comment on above: Performed By: #### L 100.0100, L500.2500 #### [facility] [address] [place], [address] Absolute Neut 7.1 X10 3/uL Normal 2.0-7.7 [facility] Comment on above: Performed By: #### L 100.0100, L500.2500 #### [facility] [address] [place], [address] Basophils/100 WBC (Bld) 0.3 % Normal 0-1 [facility] Comment on above: Performed By: #### L 100.0100, L500.2500 #### [facility] [address] [place], [address] Eosinophils/100 WBC (Bld) 0.1 % Normal 0-5 [facility] Comment on above: Performed By: #### L 100.0100, L500.2500 #### [facility] [address] [place], [address] Erythrocyte distribution width (RBC) [Ratio] 13.8 % Normal 11.6-14.6 [facility] Comment on above: Performed By: #### L 100.0100, L500.2500 #### [facility] [address] [place], [address] Hematocrit (Bld) [Volume fraction] 46.5 % Normal 37-47 [facility] Comment on above: Performed By: #### L 100.0100, L500.2500 #### [facility] [address] [place], [address] Hemoglobin (Bld) [Mass/Vol] 14.8 g/dL Normal 12.0-15.0 [facility] Comment on above: Performed By: #### L 100.0100, L500.2500 #### [facility] [address] [place], [address] IG% 1.300 High 0.0-0.9 [facility] Comment on above: Result Comment: IG% - Immature Granulocytes (promyelocytes, myelocytes and metamyelocytes) > 1% indicates that a LEFT SHIFT is Present. Performed By: #### L 100.0100, L500.2500 #### [facility] [address] [place], [address] Lymphocytes/100 WBC (Bld) 22.2 % Normal 19-41 [facility] Comment on above: Performed By: #### L 100.0100, L500.2500 #### [facility] [address] [place], [address] MCH (RBC) [Entitic mass] 28.2 pg Normal 27.0-32.0 [facility] Comment on above: Performed By: #### L 100.0100, L500.2500 #### [facility] [address] [place], [address] MCHC (RBC) [Mass/Vol] 31.8 g/dL Low 32-36 [facility] Comment on above: Performed By: #### L 100.0100, L500.2500 #### [facility] [address] [place], [address] MCV (RBC) [Entitic vol] 88.6 fL Normal 81-99 [facility] Comment on above: Performed By: #### L 100.0100, L500.2500 #### [facility] [address] [place], [address] Monocytes/100 WBC (Bld) 8.3 % Normal 0-10 [facility] Comment on above: Performed By: #### L 100.0100, L500.2500 #### [facility] [address] [place], [address] Neutrophils/100 WBC (Bld) 67.8 % Normal 47-70 [facility] Comment on above: Performed By: #### L 100.0100, L500.2500 #### [facility] [address] [place], [address] Nucleated RBC (Bld) [#/Vol] 0 10*3/uL Normal 0-5 [facility] Comment on above: Performed By: #### L 100.0100, L500.2500 #### [facility] [address] [place], [address] Platelet mean volume (Bld) [Entitic vol] 10.5 fL Normal 6.2-12.0 [facility] Comment on above: Performed By: #### L 100.0100, L500.2500 #### [facility] [address] [place], [address] Platelets (Bld) [#/Vol] 346 10*3/uL Normal 150-450 [facility] Comment on above: Performed By: #### L 100.0100, L500.2500 #### [facility] [address] [place], [address] RBC (Bld) [#/Vol] 5.25 10*6/uL Normal 4.2-5.4 [facility] Comment on above: Performed By: #### L 100.0100, L500.2500 #### [facility] [address] [place], [address] RDW SD 44.6 fl High 35.1-43.9 [facility] Comment on above: Performed By: #### L 100.0100, L500.2500 #### [facility] [address] [place], [address] WBC (Bld) [#/Vol] 10.5 10*3/uL Normal 4.4-11.0 [facility] Comment on above: Performed By: #### L 100.0100, L500.2500 #### [facility] [address] [place], [address] Carbon dioxide measurementOr dered By: Ritamorgan Kenny on 11-23-2024 CO2 [Moles/Vol] 26.0 mmol/L 21.0-32.0 [facility] Chloride measurementOrdered By: Rita Kenny on 11-23-2024 Chloride [Moles/Vol] 103 mmol/L 98-107 [facility] Discharge Instructionon 11-01 Discharge Instruction [facility] Medical Records Department [address] [place] [address] Instructions for Home/Discharge Instructions 11/23/24 1522 MR#: [id number] Acct: [id number] Name: DIANNE ALVES Rep #: [id number] : 1955 69 From: Stephenie Yu MD [...] to your preferred pharmacy on file, [facility] [place] -Please call your primary care provider's office [...] Dr. Maria M Ochoa MD Signed Normal [facility] Discharge Instruction [facility] Medical Records Department [address] [place] [address] Instructions for Home/Discharge Instructions 11/23/24 1452 MR#: [id number] Acct: [id number] Name: DIANNE ALVES Rep #: [id number] : 1955 69 From: Stephenie Yu MD [...] to your preferred pharmacy on file, [facility] [place] -Please call your primary care provider's office [...] can be placed): Home, Self Care 11/23/24 9049 Stephenie Yu MD CC: Dr. Antwon Ferreira [...] Dr. Maria M Ochoa MD Signed Normal [facility] Eosinophil percentageOrdered By: Rita Kenny on 11-23-2024 Eosinophils/100 WBC (Bld) 0.1 % 0-5 [facility] Erythrocyte distribution wid th ratioOrdered By: Rita Kenny on 11-23-2024 Erythrocyte distribution width (RBC) [Ratio] 13.8 % 11.6-14.6 [facility] Erythrocyte distribution wid th standard deviationOrdered By: Rita Kenny on 11-23-2024 Erythrocyte distribution width (RBC) [Entitic vol] 44.6 fL High 35.1-43.9 [facility] Estimated glomerular filtrat ion rate (GFR) AmericanOrdered By: Rita Kenny on 11-23-2024 Estimated GFR (MDRD) Amer 59 mL/min Low >60 [facility] Comment on above: GFR Calc Estimation of creatinine adriana aranceOrdered By: Rita Kenny on 11-23-2024 Estimated Creatinine Clearance Calc 52.87 ml/min [facility] Glomerular filtration rate ( GFR) estimationOrdered By: Rita Kenny on 11-23-2024 Estimated GFR (MDRD) Non-Af Amer 49 mL/min Low >60 [facility] Comment on above: Non- GFR Calc Glucose measurementOrdered B y: Rita Kenny on 11-23-2024 Glucose [Mass/Vol] 113 mg/dL High 74-106 [facility] Comment on above: Fasting Glucose resu lt from 100 to 125 mg/dL suggests IMPAIRED HOMEOSTASIS per A.D.A. criteria. Hematocrit Auto (Bld) [Volum e fraction]Ordered By: Rita Kenny on 11-23-2024 Hematocrit (Bld) [Volume fraction] 46.5 % 37-47 [facility] Hemoglobin measurementOrdere d By: Rita Kenny on 11-23-2024 Hemoglobin (Bld) [Mass/Vol] 14.8 g/dL 12.0-15.0 [facility] Immature granulocytes/100 WB C Auto (Bld)Ordered By: Rita Kenny on 11-23-2024 Immature granulocytes/100 WBC (Bld) 1.300 % High 0.0-0.9 [facility] Comment on above: IG% - Immature Granu locytes (promyelocytes, myelocytes and metamyelocytes) > 1% indicates that a LEFT SHIFT is Present. Lymphocytes Auto (Unsp spec) [#/Vol]Ordered By: Rita Kenny on 11-23-2024 Lymphocytes (Bld) [#/Vol] 2.32 10*3/uL 0.83-4.51 [facility] Lymphocytes/100 WBC Auto (Un sp spec)Ordered By: Rita Kenny on 11-23-2024 Lymphocytes/100 WBC (Bld) 22.2 % 19-41 [facility] MCV (mean corpuscular volume ) determinationOrdered By: Rita Kenny on 11-23-2024 MCV (RBC) [Entitic vol] 88.6 fL 81-99 [facility] Mean corpuscular hemoglobin (MCH) determinationOrdered By: Rita Kenny on 11-23-2024 MCH (RBC) [Entitic mass] 28.2 pg 27.0-32.0 [facility] Mean corpuscular hemoglobin concentration (MCHC) determinationOrdered By: Rita Kenny on 11-23-2024 MCHC (RBC) [Mass/Vol] 31.8 g/dL Low 32-36 [facility] Mean platelet volume determi nationOrdered By: Rita Kenny on 11-23-2024 Platelet mean volume (Bld) [Entitic vol] 10.5 fL 6.2-12.0 [facility] Monocyte percentageOrdered B y: Rita Kenny on 11-23-2024 Monocytes/100 WBC (Bld) 8.3 % 0-10 [facility] Neutrophil percentageOrdered By: Rita Kenny on 11-23-2024 Neutrophils/100 WBC (Bld) 67.8 % 47-70 [facility] Nucleated red blood cell per centageOrdered By: Rita Kenny on 11-23-2024 Nucleated RBC/100 WBC (Bld) [Ratio] 0 % 0-5 [facility] Platelet countOrdered By: Na elizabeth Kenny on 11-23-2024 Platelets (Bld) [#/Vol] 346 10*3/uL 150-450 [facility] Potassium measurementOrdered By: Rita Kenny on 11-23-2024 Potassium [Moles/Vol] 4.5 mmol/L 3.5-5.1 [facility] RBC Auto (Bld) [#/Vol]Ordere d By: Rita Kenny on 11-23-2024 RBC (Bld) [#/Vol] 5.25 10*6/uL 4.2-5.4 [facility] Serum anion gap measurementO rdered By: Rita Kenny on 11-23-2024 Anion gap [Moles/Vol] 7 mmol/L 5-15 [facility] Serum or plasma calcium margarita urement (mass/volume)Ordered By: Rita Karlbella on 11-23-2024 Calcium [Mass/Vol] 9.0 mg/dL 8.5-10.1 [facility] Serum or plasma creatinine m easurement (mass/volume)Ordered By: Rita Barajasbella on 11-23-2024 Creatinine [Mass/Vol] 1.17 mg/dL High 0.55-1.02 [facility] Comment on above: The validity of the calculated GFR & GFRAA in patients over 70 years has not been determined. Clinical correlation is essential. Serum or plasma urea nitroge n measurement (mass/volume)Ordered By: Ritamorgan Kenny on 11-23-2024 Urea nitrogen [Mass/Vol] 33 mg/dL High 7-18 [facility] Sodium levelOrdered By: Rita Karlbella on 11-23-2024 Sodium [Moles/Vol] 136 mmol/L 136-145 [facility] Stress Reporton 11-23-2024 Stress Report [facility] [address] [place] [id number] MR#: [id number] Acct: [id number] Name: DIANNE ALVES Rep #: [id number] : 1955 69 From: Tej Corley MD [...] than 70%. This note was generated with [employer] software. It may contain incorrect words, spelling, [...] MD; Dr. Sebastian Kimble MD; Dr. Kd oCrral MD; Dr. Kvng Vizcaino MD; Dr. Niyah [...] MD Date Dictated: 11/23/241326 Date Transcribed: 11/23/241326 Chief Ii Dispatcher: NN Signed Normal [facility] White blood cell (WBC) count Ordered By: Rita Kenny on 11-23-2024 WBC (Bld) [#/Vol] 10.5 10*3/uL 4.4-11.0 [facility] Basic Metabolic Profile (BMP )on 11-22-2024 BUN/CRE 26.9 RATIO High 10-20 [facility] Comment on above: Performed By: #### L 509.7000 #### [facility] [address] [place], [address] CA,Total 9.0 mg/dL Normal 8.5-10.1 [facility] Comment on above: Performed By: #### L 509.7000 #### [facility] [address] [place], [address] Chloride [Moles/Vol] 100 mmol/L Normal 98-107 [facility] Comment on above: Performed By: #### L 509.7000 #### [facility] [address] [place], [address] CO2 [Moles/Vol] 26.0 mmol/L Normal 21.0-32.0 [facility] Comment on above: Performed By: #### L 509.7000 #### [facility] [address] [place], [address] Creatinine [Mass/Vol] 1.45 mg/dL High 0.55-1.02 [facility] Comment on above: Result Comment: The validity of the calculated GFR GFRAA in patients over 70 years has not been determined. Clinical correlation is essential. Performed By: #### L 509.7000 #### [facility] [address] [place], [address] ECRCL 42.59 ml/min Normal [facility] Comment on above: Performed By: #### L 509.7000 #### [facility] [address] [place], [address] EST GFR - AA 46 mL/min Low >60 [facility] Comment on above: Result Comment: Afri can Ecuadorean GFR Calc Performed By: #### L 509.7000 #### [facility] [address] [place], [address] GAP 11 Normal 5-15 [facility] Comment on above: Performed By: #### L 509.7000 #### [facility] [address] [place], [address] GFR/1.73 sq M.predicted among non-blacks MDRD (S/P/Bld) [Vol rate/Area] 38 mL/min/{1.73_m2} Low >60 [facility] Comment on above: Result Comment: Non- GFR Calc Performed By: #### L 509.7000 #### [facility] [address] [place], [address] Glucose [Mass/Vol] 172 mg/dL High 74-106 [facility] Comment on above: Result Comment: Fast ing Glucose result greater than or equal to 126 mg/dL suggests DIABETES MELLITUS per A.D.A. criteria. Performed By: #### L 509.7000 #### [facility] [address] [place], [address] Potassium [Moles/Vol] 4.7 mmol/L Normal 3.5-5.1 [facility] Comment on above: Performed By: #### L 509.7000 #### [facility] [address] [place], [address] Sodium [Moles/Vol] 137 mmol/L Normal 136-145 [facility] Comment on above: Performed By: #### L 509.7000 #### [facility] [address] [place], [address] Urea nitrogen [Mass/Vol] 39 mg/dL High 7-18 [facility] Comment on above: Performed By: #### L 509.7000 #### [facility] [address] [place], [address] CBC W/Diff, Automatedon 02-2 -2024 Absolute Lymph 1.19 X10 3/uL Normal 0.83-4.51 [facility] Comment on above: Performed By: #### L 509.7000 #### [facility] [address] [place], [address] Absolute Neut 7.9 X10 3/uL High 2.0-7.7 [facility] Comment on above: Performed By: #### L 509.7000 #### [facility] [address] [place], [address] Basophils/100 WBC (Bld) 0.3 % Normal 0-1 [facility] Comment on above: Performed By: #### L 509.7000 #### [facility] [address] [place], [address] Eosinophils/100 WBC (Bld) 0.0 % Normal 0-5 [facility] Comment on above: Performed By: #### L 509.7000 #### [facility] [address] [place], [address] Erythrocyte distribution width (RBC) [Ratio] 13.7 % Normal 11.6-14.6 [facility] Comment on above: Performed By: #### L 509.7000 #### [facility] [address] [place], [address] Hematocrit (Bld) [Volume fraction] 45.4 % Normal 37-47 [facility] Comment on above: Performed By: #### L 509.7000 #### [facility] [address] [place], [address] Hemoglobin (Bld) [Mass/Vol] 14.8 g/dL Normal 12.0-15.0 [facility] Comment on above: Performed By: #### L 509.7000 #### [facility] [address] [place], [address] IG% 1.400 High 0.0-0.9 [facility] Comment on above: Result Comment: IG% - Immature Granulocytes (promyelocytes, myelocytes and metamyelocytes) > 1% indicates that a LEFT SHIFT is Present. Performed By: #### L 509.7000 #### [facility] [address] [place], [address] Lymphocytes/100 WBC (Bld) 12.1 % Low 19-41 [facility] Comment on above: Performed By: #### L 509.7000 #### [facility] [address] [place], [address] MCH (RBC) [Entitic mass] 28.7 pg Normal 27.0-32.0 [facility] Comment on above: Performed By: #### L 509.7000 #### [facility] [address] [place], [address] MCHC (RBC) [Mass/Vol] 32.6 g/dL Normal 32-36 [facility] Comment on above: Performed By: #### L 509.7000 #### [facility] [address] [place], [address] MCV (RBC) [Entitic vol] 88.2 fL Normal 81-99 [facility] Comment on above: Performed By: #### L 509.7000 #### [facility] [address] [place], [address] Monocytes/100 WBC (Bld) 5.9 % Normal 0-10 [facility] Comment on above: Performed By: #### L 509.7000 #### [facility] [address] [place], [address] Neutrophils/100 WBC (Bld) 80.3 % High 47-70 [facility] Comment on above: Performed By: #### L 509.7000 #### [facility] [address] [place], [address] Nucleated RBC (Bld) [#/Vol] 0 10*3/uL Normal 0-5 [facility] Comment on above: Performed By: #### L 509.7000 #### [facility] [address] [place], [address] Platelet mean volume (Bld) [Entitic vol] 11.0 fL Normal 6.2-12.0 [facility] Comment on above: Performed By: #### L 509.7000 #### [facility] [address] [place], [address] Platelets (Bld) [#/Vol] 346 10*3/uL Normal 150-450 [facility] Comment on above: Performed By: #### L 509.7000 #### [facility] [address] [place], [address] RBC (Bld) [#/Vol] 5.15 10*6/uL Normal 4.2-5.4 [facility] Comment on above: Performed By: #### L 509.7000 #### [facility] [address] [place], [address] RDW SD 44.1 fl High 35.1-43.9 [facility] Comment on above: Performed By: #### L 509.7000 #### [facility] [address] [place], [address] WBC (Bld) [#/Vol] 9.8 10*3/uL Normal 4.4-11.0 [facility] Comment on above: Performed By: #### L 509.7000 #### [facility] [address] [place], [address] Basic Metabolic Profile (BMP )on 11-21-2024 BUN/CRE 20.8 RATIO High 10-20 [facility] Comment on above: Performed By: #### L 509.7000 #### [facility] [address] [place], [address] CA,Total 9.4 mg/dL Normal 8.5-10.1 [facility] Comment on above: Performed By: #### L 509.7000 #### [facility] [address] [place], [address] Chloride [Moles/Vol] 102 mmol/L Normal 98-107 [facility] Comment on above: Performed By: #### L 509.7000 #### [facility] [address] [place], [address] CO2 [Moles/Vol] 26.0 mmol/L Normal 21.0-32.0 [facility] Comment on above: Performed By: #### L 509.7000 #### [facility] [address] [place], [address] Creatinine [Mass/Vol] 1.25 mg/dL High 0.55-1.02 [facility] Comment on above: Result Comment: The validity of the calculated GFR GFRAA in patients over 70 years has not been determined. Clinical correlation is essential. Performed By: #### L 509.7000 #### [facility] [address] [place], [address] ECRCL 49.49 ml/min Normal [facility] Comment on above: Performed By: #### L 509.7000 #### [facility] [address] [place], [address] EST GFR - AA 55 mL/min Low >60 [facility] Comment on above: Result Comment: Afri can Ecuadorean GFR Calc Performed By: #### L 509.7000 #### [facility] [address] [place], [address] GAP 9 Normal 5-15 [facility] Comment on above: Performed By: #### L 509.7000 #### [facility] [address] [place], [address] GFR/1.73 sq M.predicted among non-blacks MDRD (S/P/Bld) [Vol rate/Area] 45 mL/min/{1.73_m2} Low >60 [facility] Comment on above: Result Comment: Non- GFR Calc Performed By: #### L 509.7000 #### [facility] [address] [place], [address] Glucose [Mass/Vol] 129 mg/dL High 74-106 [facility] Comment on above: Result Comment: Fast ing Glucose result greater than or equal to 126 mg/dL suggests DIABETES MELLITUS per A.D.A. criteria. Performed By: #### L 509.7000 #### [facility] [address] [place], [address] Potassium [Moles/Vol] 4.4 mmol/L Normal 3.5-5.1 [facility] Comment on above: Performed By: #### L 509.7000 #### [facility] [address] [place], [address] Sodium [Moles/Vol] 137 mmol/L Normal 136-145 [facility] Comment on above: Performed By: #### L 509.7000 #### [facility] [address] [place], [address] Urea nitrogen [Mass/Vol] 26 mg/dL High 7-18 [facility] Comment on above: Performed By: #### L 509.7000 #### [facility] [address] [place], [address] CBC W/Diff, Automatedon 11-01 Absolute Lymph 1.11 X10 3/uL Normal 0.83-4.51 [facility] Comment on above: Performed By: #### L 509.7000 #### [facility] [address] [place], [address] Absolute Neut 7.0 X10 3/uL Normal 2.0-7.7 [facility] Comment on above: Performed By: #### L 509.7000 #### [facility] [address] [place], [address] Basophils/100 WBC (Bld) 0.2 % Normal 0-1 [facility] Comment on above: Performed By: #### L 509.7000 #### [facility] [address] [place], [address] Eosinophils/100 WBC (Bld) 0.0 % Normal 0-5 [facility] Comment on above: Performed By: #### L 509.7000 #### [facility] [address] [place], [address] Erythrocyte distribution width (RBC) [Ratio] 13.8 % Normal 11.6-14.6 [facility] Comment on above: Performed By: #### L 509.7000 #### [facility] [address] [place], [address] Hematocrit (Bld) [Volume fraction] 44.5 % Normal 37-47 [facility] Comment on above: Performed By: #### L 509.7000 #### [facility] [address] [place], [address] Hemoglobin (Bld) [Mass/Vol] 14.5 g/dL Normal 12.0-15.0 [facility] Comment on above: Performed By: #### L 509.7000 #### [facility] [address] [place], [address] IG% 1.100 High 0.0-0.9 [facility] Comment on above: Result Comment: IG% - Immature Granulocytes (promyelocytes, myelocytes and metamyelocytes) > 1% indicates that a LEFT SHIFT is Present. Performed By: #### L 509.7000 #### [facility] [address] [place], [address] Lymphocytes/100 WBC (Bld) 13.0 % Low 19-41 [facility] Comment on above: Performed By: #### L 509.7000 #### [facility] [address] [place], [address] MCH (RBC) [Entitic mass] 28.9 pg Normal 27.0-32.0 [facility] Comment on above: Performed By: #### L 509.7000 #### [facility] [address] [place], [address] MCHC (RBC) [Mass/Vol] 32.6 g/dL Normal 32-36 [facility] Comment on above: Performed By: #### L 509.7000 #### [facility] [address] [place], [address] MCV (RBC) [Entitic vol] 88.6 fL Normal 81-99 [facility] Comment on above: Performed By: #### L 509.7000 #### [facility] [address] [place], [address] Monocytes/100 WBC (Bld) 3.9 % Normal 0-10 [facility] Comment on above: Performed By: #### L 509.7000 #### [facility] [address] [place], [address] Neutrophils/100 WBC (Bld) 81.8 % High 47-70 [facility] Comment on above: Performed By: #### L 509.7000 #### [facility] [address] [place], [address] Nucleated RBC (Bld) [#/Vol] 0 10*3/uL Normal 0-5 [facility] Comment on above: Performed By: #### L 509.7000 #### [facility] [address] [place], [address] Platelet mean volume (Bld) [Entitic vol] 10.6 fL Normal 6.2-12.0 [facility] Comment on above: Performed By: #### L 509.7000 #### [facility] [address] [place], [address] Platelets (Bld) [#/Vol] 321 10*3/uL Normal 150-450 [facility] Comment on above: Performed By: #### L 509.7000 #### [facility] [address] [place], [address] RBC (Bld) [#/Vol] 5.02 10*6/uL Normal 4.2-5.4 [facility] Comment on above: Performed By: #### L 509.7000 #### [facility] [address] [place], [address] RDW SD 44.8 fl High 35.1-43.9 [facility] Comment on above: Performed By: #### L 509.7000 #### [facility] [address] [place], [address] WBC (Bld) [#/Vol] 8.6 10*3/uL Normal 4.4-11.0 [facility] Comment on above: Performed By: #### L 509.7000 #### [facility] [address] [place], [address] Basic Metabolic Profile (BMP )on 11-20-2024 BUN/CRE 16.4 RATIO Normal 10-20 [facility] Comment on above: Performed By: #### L 100.0100, L500.2500 #### [facility] [address] [place], [address] CA,Total 9.7 mg/dL Normal 8.5-10.1 [facility] Comment on above: Performed By: #### L 100.0100, L500.2500 #### [facility] [address] [place], [address] Chloride [Moles/Vol] 102 mmol/L Normal 98-107 [facility] Comment on above: Performed By: #### L 100.0100, L500.2500 #### [facility] [address] [place], [address] CO2 [Moles/Vol] 29.0 mmol/L Normal 21.0-32.0 [facility] Comment on above: Performed By: #### L 100.0100, L500.2500 #### [facility] [address] [place], [address] Creatinine [Mass/Vol] 1.16 mg/dL High 0.55-1.02 [facility] Comment on above: Result Comment: The validity of the calculated GFR GFRAA in patients over 70 years has not been determined. Clinical correlation is essential. Performed By: #### L 100.0100, L500.2500 #### [facility] [address] [place], [address] ECRCL 53.62 ml/min Normal [facility] Comment on above: Performed By: #### L 100.0100, L500.2500 #### [facility] [address] [place], [address] EST GFR - AA 60 mL/min Normal >60 [facility] Comment on above: Result Comment: Afri can Ecuadorean GFR Calc Performed By: #### L 100.0100, L500.2500 #### [facility] [address] [place], [address] GAP 6 Normal 5-15 [facility] Comment on above: Performed By: #### L 100.0100, L500.2500 #### [facility] [address] [place], [address] GFR/1.73 sq M.predicted among non-blacks MDRD (S/P/Bld) [Vol rate/Area] 49 mL/min/{1.73_m2} Low >60 [facility] Comment on above: Result Comment: Non- GFR Calc Performed By: #### L 100.0100, L500.2500 #### [facility] [address] [place], [address] Glucose [Mass/Vol] 135 mg/dL High 74-106 [facility] Comment on above: Result Comment: Fast ing Glucose result greater than or equal to 126 mg/dL suggests DIABETES MELLITUS per A.D.A. criteria. Performed By: #### L 100.0100, L500.2500 #### [facility] [address] [place], [address] Potassium [Moles/Vol] 4.3 mmol/L Normal 3.5-5.1 [facility] Comment on above: Performed By: #### L 100.0100, L500.2500 #### [facility] [address] [place], [address] Sodium [Moles/Vol] 138 mmol/L Normal 136-145 [facility] Comment on above: Performed By: #### L 100.0100, L500.2500 #### [facility] [address] [place], [address] Urea nitrogen [Mass/Vol] 19 mg/dL High 7-18 [facility] Comment on above: Performed By: #### L 100.0100, L500.2500 #### [facility] [address] [place], [address] CBC W/Diff, Automatedon 11-01 Absolute Lymph 0.87 X10 3/uL Normal 0.83-4.51 [facility] Comment on above: Performed By: #### L 100.0100, L500.2500 #### [facility] [address] [place], [address] Absolute Neut 8.9 X10 3/uL High 2.0-7.7 [facility] Comment on above: Performed By: #### L 100.0100, L500.2500 #### [facility] [address] [place], [address] Basophils/100 WBC (Bld) 0.2 % Normal 0-1 [facility] Comment on above: Performed By: #### L 100.0100, L500.2500 #### [facility] [address] [place], [address] Eosinophils/100 WBC (Bld) 0.0 % Normal 0-5 [facility] Comment on above: Performed By: #### L 100.0100, L500.2500 #### [facility] [address] [place], [address] Erythrocyte distribution width (RBC) [Ratio] 13.8 % Normal 11.6-14.6 [facility] Comment on above: Performed By: #### L 100.0100, L500.2500 #### [facility] [address] [place], [address] Hematocrit (Bld) [Volume fraction] 42.9 % Normal 37-47 [facility] Comment on above: Performed By: #### L 100.0100, L500.2500 #### [facility] [address] [place], [address] Hemoglobin (Bld) [Mass/Vol] 14.0 g/dL Normal 12.0-15.0 [facility] Comment on above: Performed By: #### L 100.0100, L500.2500 #### [facility] [address] [place], [address] IG% 1.500 High 0.0-0.9 [facility] Comment on above: Result Comment: IG% - Immature Granulocytes (promyelocytes, myelocytes and metamyelocytes) > 1% indicates that a LEFT SHIFT is Present. Performed By: #### L 100.0100, L500.2500 #### [facility] [address] [place], [address] Lymphocytes/100 WBC (Bld) 8.5 % Low 19-41 [facility] Comment on above: Performed By: #### L 100.0100, L500.2500 #### [facility] [address] [place], [address] MCH (RBC) [Entitic mass] 28.7 pg Normal 27.0-32.0 [facility] Comment on above: Performed By: #### L 100.0100, L500.2500 #### [facility] [address] [place], [address] MCHC (RBC) [Mass/Vol] 32.6 g/dL Normal 32-36 [facility] Comment on above: Performed By: #### L 100.0100, L500.2500 #### [facility] [address] [place], [address] MCV (RBC) [Entitic vol] 88.1 fL Normal 81-99 [facility] Comment on above: Performed By: #### L 100.0100, L500.2500 #### [facility] [address] [place], [address] Monocytes/100 WBC (Bld) 2.4 % Normal 0-10 [facility] Comment on above: Performed By: #### L 100.0100, L500.2500 #### [facility] [address] [place], [address] Neutrophils/100 WBC (Bld) 87.4 % High 47-70 [facility] Comment on above: Performed By: #### L 100.0100, L500.2500 #### [facility] [address] [place], [address] Nucleated RBC (Bld) [#/Vol] 0 10*3/uL Normal 0-5 [facility] Comment on above: Performed By: #### L 100.0100, L500.2500 #### [facility] [address] [place], [address] Platelet mean volume (Bld) [Entitic vol] 10.7 fL Normal 6.2-12.0 [facility] Comment on above: Performed By: #### L 100.0100, L500.2500 #### [facility] [address] [place], [address] Platelets (Bld) [#/Vol] 289 10*3/uL Normal 150-450 [facility] Comment on above: Performed By: #### L 100.0100, L500.2500 #### [facility] [address] [place], [address] RBC (Bld) [#/Vol] 4.87 10*6/uL Normal 4.2-5.4 [facility] Comment on above: Performed By: #### L 100.0100, L500.2500 #### [facility] [address] [place], [address] RDW SD 44.6 fl High 35.1-43.9 [facility] Comment on above: Performed By: #### L 100.0100, L500.2500 #### [facility] [address] [place], [address] WBC (Bld) [#/Vol] 10.2 10*3/uL Normal 4.4-11.0 [facility] Comment on above: Performed By: #### L 100.0100, L500.2500 #### [facility] [address] [place], [address] Arterial patency Wrist arter y --pre arterial punctureOrdered By: Rita Kenny on 11-19-2024 Nichole Test Positive [facility] Base excess Calc (BldV) [Mol es/Vol]Ordered By: Rita Kenny on 11-19-2024 Blood Gas Base Excess 0 mmol/L -2-2 [facility] Basic Metabolic Profile (BMP )on 11-19-2024 BUN/CRE 13.5 RATIO Normal 07-19 [facility] Comment on above: Performed By: #### L 100.0100, L500.2500 #### [facility] [address] [place], [address] CA,Total 9.6 mg/dL Normal 8.5-10.1 [facility] Comment on above: Performed By: #### L 100.0100, L500.2500 #### [facility] [address] [place], [address] Chloride [Moles/Vol] 108 mmol/L High 98-107 [facility] Comment on above: Performed By: #### L 100.0100, L500.2500 #### [facility] [address] [place], [address] CO2 [Moles/Vol] 24.0 mmol/L Normal 21.0-32.0 [facility] Comment on above: Performed By: #### L 100.0100, L500.2500 #### [facility] [address] [place], [address] Creatinine [Mass/Vol] 1.04 mg/dL High 0.55-1.02 [facility] Comment on above: Result Comment: The validity of the calculated GFR GFRAA in patients over 70 years has not been determined. Clinical correlation is essential. Performed By: #### L 100.0100, L500.2500 #### [facility] [address] [place], [address] ECRCL 59.81 ml/min Normal [facility] Comment on above: Performed By: #### L 100.0100, L500.2500 #### [facility] [address] [place], [address] EST GFR - AA 68 mL/min Normal >60 [facility] Comment on above: Result Comment: Afri can Ecuadorean GFR Calc Performed By: #### L 100.0100, L500.2500 #### [facility] [address] [place], [address] GAP 7 Normal 5-15 [facility] Comment on above: Performed By: #### L 100.0100, L500.2500 #### [facility] [address] [place], [address] GFR/1.73 sq M.predicted among non-blacks MDRD (S/P/Bld) [Vol rate/Area] 56 mL/min/{1.73_m2} Low >60 [facility] Comment on above: Result Comment: Non- GFR Calc Performed By: #### L 100.0100, L500.2500 #### [facility] [address] [place], [address] Glucose [Mass/Vol] 153 mg/dL High 74-106 [facility] Comment on above: Result Comment: Fast ing Glucose result greater than or equal to 126 mg/dL suggests DIABETES MELLITUS per A.D.A. criteria. Performed By: #### L 100.0100, L500.2500 #### [facility] [address] [place], [address] Potassium [Moles/Vol] 4.0 mmol/L Normal 3.5-5.1 [facility] Comment on above: Performed By: #### L 100.0100, L500.2500 #### [facility] [address] [place], [address] Sodium [Moles/Vol] 139 mmol/L Normal 136-145 [facility] Comment on above: Performed By: #### L 100.0100, L500.2500 #### [facility] [address] [place], [address] Urea nitrogen [Mass/Vol] 14 mg/dL Normal 7-18 [facility] Comment on above: Performed By: #### L 100.0100, L500.2500 #### [facility] [address] [place], [address] Blood Gases by [facility] 025 NICHOLE TEST Positive Normal [facility] Comment on above: Performed By: #### L 9000.0800 #### [facility] [address] [place], [address] Base excess Calc (Bld) [Moles/Vol] 0 mmol/L Normal -2 to +2 [facility] Comment on above: Performed By: #### L 9000.0800 #### [facility] [address] [place], [address] Blood Gas Type ART Normal [facility] Comment on above: Performed By: #### L 9000.0800 #### [facility] [address] [place], [address] CO2 [Moles/Vol] 23 mmol/L Normal [facility] Comment on above: Performed By: #### L 9000.0800 #### [facility] [address] [place], [address] FI02 12.0 Normal [facility] Comment on above: Performed By: #### L 9000.0800 #### [facility] [address] [place], [address] HCO3 (Bld) [Moles/Vol] 22.1 mmol/L Normal 22-26 [facility] Comment on above: Performed By: #### L 0.0800 #### [facility] [address] [place], [address] Mode Not entered Normal [facility] Comment on above: Performed By: #### L 8999.0800 #### [facility] [address] [place], [address] O2 Delivery Dev Cannula Normal [facility] Comment on above: Performed By: #### L 8999.0800 #### [facility] [address] [place], [address] pCO2 25.4 mmHg Low 35-45 [facility] Comment on above: Performed By: #### L 8999.0800 #### [facility] [address] [place], [address] pH (Bld) 7.55 [pH] High 7.35-7.45 [facility] Comment on above: Performed By: #### L 8999.08 #### [facility] [address] [place], [address] PO2 162 mmHG High 75-100 [facility] Comment on above: Performed By: #### L 0.0800 #### [facility] [address] [place], [address] SITE L Radial Normal [facility] Comment on above: Performed By: #### L 8999.08 #### [facility] [address] [place], [address] SO2 100 High 95-99 [facility] Comment on above: Performed By: #### L 8999.0800 #### [facility] [address] [place], [address] Blood bicarbonate measuremen tOrdered By: Rita Kenny on 11-19-2024 Blood Gas Bicarbonate Actual 22.1 mmol/L - [facility] CBC W/Diff, Automatedon 11-01 Absolute Lymph 0.91 X10 3/uL Normal 0.83-4.51 [facility] Comment on above: Performed By: #### L 100.0100, L500.2500 #### [facility] [address] [place], [address] Absolute Neut 11.6 X10 3/uL High 2.0-7.7 [facility] Comment on above: Performed By: #### L 100.0100, L500.2500 #### [facility] [address] [place], [address] Basophils/100 WBC (Bld) 0.2 % Normal 0-1 [facility] Comment on above: Performed By: #### L 100.0100, L500.2500 #### [facility] [address] [place], [address] Eosinophils/100 WBC (Bld) 0.0 % Normal 0-5 [facility] Comment on above: Performed By: #### L 100.0100, L500.2500 #### [facility] [address] [place], [address] Erythrocyte distribution width (RBC) [Ratio] 13.7 % Normal 11.6-14.6 [facility] Comment on above: Performed By: #### L 100.0100, L500.2500 #### [facility] [address] [place], [address] Hematocrit (Bld) [Volume fraction] 40.8 % Normal 37-47 [facility] Comment on above: Performed By: #### L 100.0100, L500.2500 #### [facility] [address] [place], [address] Hemoglobin (Bld) [Mass/Vol] 13.4 g/dL Normal 12.0-15.0 [facility] Comment on above: Performed By: #### L 100.0100, L500.2500 #### [facility] [address] [place], [address] IG% 1.000 High 0.0-0.9 [facility] Comment on above: Result Comment: IG% - Immature Granulocytes (promyelocytes, myelocytes and metamyelocytes) > 1% indicates that a LEFT SHIFT is Present. Performed By: #### L 100.0100, L500.2500 #### [facility] [address] [place], [address] Lymphocytes/100 WBC (Bld) 7.0 % Low 19-41 [facility] Comment on above: Performed By: #### L 100.0100, L500.2500 #### [facility] [address] [place], [address] MCH (RBC) [Entitic mass] 29.1 pg Normal 27.0-32.0 [facility] Comment on above: Performed By: #### L 100.0100, L500.2500 #### [facility] [address] [place], [address] MCHC (RBC) [Mass/Vol] 32.8 g/dL Normal 32-36 [facility] Comment on above: Performed By: #### L 100.0100, L500.2500 #### [facility] [address] [place], [address] MCV (RBC) [Entitic vol] 88.5 fL Normal 81-99 [facility] Comment on above: Performed By: #### L 100.0100, L500.2500 #### [facility] [address] [place], [address] Monocytes/100 WBC (Bld) 2.5 % Normal 0-10 [facility] Comment on above: Performed By: #### L 100.0100, L500.2500 #### [facility] [address] [place], [address] Neutrophils/100 WBC (Bld) 89.3 % High 47-70 [facility] Comment on above: Performed By: #### L 100.0100, L500.2500 #### [facility] [address] [place], [address] Nucleated RBC (Bld) [#/Vol] 0 10*3/uL Normal 0-5 [facility] Comment on above: Performed By: #### L 100.0100, L500.2500 #### [facility] [address] [place], [address] Platelet mean volume (Bld) [Entitic vol] 11.8 fL Normal 6.2-12.0 [facility] Comment on above: Performed By: #### L 100.0100, L500.2500 #### [facility] [address] [place], [address] Platelets (Bld) [#/Vol] 261 10*3/uL Normal 150-450 [facility] Comment on above: Performed By: #### L 100.0100, L500.2500 #### [facility] [address] [place], [address] RBC (Bld) [#/Vol] 4.61 10*6/uL Normal 4.2-5.4 [facility] Comment on above: Performed By: #### L 100.0100, L500.2500 #### [facility] [address] [place], [address] RDW SD 44.3 fl High 35.1-43.9 [facility] Comment on above: Performed By: #### L 100.0100, L500.2500 #### [facility] [address] [place], [address] WBC (Bld) [#/Vol] 13.0 10*3/uL High 4.4-11.0 [facility] Comment on above: Performed By: #### L 100.0100, L500.2500 #### [facility] [address] [place], [address] CTA Chest W/WO Contraston CTA Chest W/WO Contrast [facility] Imaging Services [address] [facility] [place], [place] [address] CTA Chest W/WO Contrast MR#: [id number] Acct: [id number] Name: DIANNE ALVES Rep #: [id number] : 1955 F 69 From: Anthony wolff MD PCP: Dr. Leonie Peterson MD Status: ADM IN Study: CTA Chest W/WO Contrast Date of Exam: 11/19/24 Exam# [id number] Ordering Dr: Rita Kenny MD PROCEDURE: CTA [...] use of iterative reconstruction technique). Reading Location: [id number] CC: Dr. Leonie Peterson MD; Dr. Rita Kenny MD Chief Ii Dispatcher: Signed Normal [facility] Consultation - Intensiviston 11-19-2024 Consultation - Global Program Director [facility] Medical Records Department [address] [place] [address] Consultation - Global Program Director 11/19/24 1006 MR#: [id number] Acct: [id number] Name: DIANNE ALVES Rep #: [id number] : 1955 69 From: Zeyad Espinoza DO PCP: Dr. Leonie Peterson MD Status:ADM IN Location: [place] [id number] Assessment Plan Assessment/Plan (1) Influenza A: (2) [...] as indicated. This note was generated with [employer] dictation software. It may contain incorrect words, [...] followed in the pulmonary medicine clinic at [facility] due to a history of COPD and [...] systolic pressure estimated to be 36 mmHg. [facility] Medical History (Updated 11/17/24 @ 16:23 by [...] pain 02/15/23 (more content not included)... Normal [facility] Determination of fraction of inspired oxygenOrdered By: Rita Kenny on 11-19-2024 Blood Gas Oxygen Percent 12.0 [facility] L. pneumophila Ag Ql (U)Orde red By: Zeyad Espinoza on 11-19-2024 Legionella Antigen [facility] Legionella Antigen Urineon 0 11-19-2024 LEGU URINE, CLEAN CATCH Legionella Antigen result interpretation: L pneumo Ag Ur Ql Negative Presumptive negative for Legionella pneumophila serogroup 1 antigen in urine, suggesting no recent or current infection. Legionella Ag, Urine Negative (See interpretation below) Normal [facility] Comment on above: Performed By: #### M 300.3000, M300.6556 ####[facility] [address] [place], [place], [id number] No Panel InformationOrdered By: Rita Kenny on 11-19-2024 Blood Gas Sample Site L Radial [facility] Blood Gas Specimen Type ART [facility] Blood Gas Vent Mode Not entered [facility] Oxygen Delivery Device Cannula [facility] Oxygen saturation measuremen tOrdered By: Rita Kenny on 11-19-2024 Blood Gas Oxygen Saturation 100 % High 95-99 [facility] Partial pressure of carbon d ioxide measurementOrdered By: Rita Kenny on 11-19-2024 Arterial Blood Partial Pressure CO2 25.4 mmHg Low 35-45 [facility] Partial pressure of oxygen m easurementOrdered By: Rita Kenny on 11-19-2024 Arterial Blood Partial Pressure O2 162 mmHG High 75-100 [facility] Procalcitoninon 11-19-2024 Procalcitonin 0.05 ng/mL Normal 0.00-0.09 [facility] Comment on above: Result Comment: A [...] obtained. Performed By: #### L 509.7000 #### [facility] [place], [address] Procalcitonin [Mass/Vol]Orde red By: Zeyad Espinoza on 11-19-2024 Procalcitonin 0.05 ng/mL 0.00-0.09 [facility] Comment on above: A procalcitonin (PCT [...] Test Negative URINE (See interpretation below) Normal [facility] Comment on above: Performed By: #### L 509.7000 #### [facility] [address] [place], [address] Streptococcus pneumoniae ant igen assayOrdered By: Zeyad Espinoza on 11-19-2024 Streptococcus pneumoniae Antigen (M [facility] Total carbon dioxide measure mentOrdered By: Rita Kenny on 11-19-2024 Blood Gas Total CO2 23 mmol/L [facility] pH (Unsp spec)Ordered By: Elizabeth Kenny on 11-19-2024 Blood Gas pH 7.55 High 7.35-7.45 [facility] Basic Metabolic Profile (BMP )on 11-18-2024 BUN/CRE 10.8 RATIO Normal - [facility] Comment on above: Performed By: #### L 500.2500, L100.0100 #### [facility] [address] [place], [address] CA,Total 9.3 mg/dL Normal 8.5-10.1 [facility] Comment on above: Performed By: #### L 500.2500, L100.0100 #### [facility] [address] [place], [address] Chloride [Moles/Vol] 105 mmol/L Normal 98-107 [facility] Comment on above: Performed By: #### L 500.2500, L100.0100 #### [facility] [address] [place], [address] CO2 [Moles/Vol] 24.0 mmol/L Normal 21.0-32.0 [facility] Comment on above: Performed By: #### L 500.2500, L100.0100 #### [facility] [address] [place], [address] Creatinine [Mass/Vol] 1.11 mg/dL High 0.55-1.02 [facility] Comment on above: Result Comment: The validity of the calculated GFR GFRAA in patients over 70 years has not been determined. Clinical correlation is essential. Performed By: #### L 500.2500, L100.0100 #### [facility] [address] [place], [address] ECRCL 55.64 ml/min Normal [facility] Comment on above: Performed By: #### L 500.2500, L100.0100 #### [facility] [address] [place], [address] EST GFR - AA 63 mL/min Normal >60 [facility] Comment on above: Result Comment: Afri can Ecuadorean GFR Calc Performed By: #### L 500.2500, L100.0100 #### [facility] [address] [place], [address] GAP 10 Normal 5-15 [facility] Comment on above: Performed By: #### L 500.2500, L100.0100 #### [facility] [address] [place], [address] GFR/1.73 sq M.predicted among non-blacks MDRD (S/P/Bld) [Vol rate/Area] 52 mL/min/{1.73_m2} Low >60 [facility] Comment on above: Result Comment: Non- GFR Calc Performed By: #### L 500.2500, L100.0100 #### [facility] [address] [place], [address] Glucose [Mass/Vol] 272 mg/dL High 74-106 [facility] Comment on above: Result Comment: Gluc ose result greater than or equal to 200 mg/dL suggests DIABETES MELLITUS per A.D.A. criteria. Performed By: #### L 500.2500, L100.0100 #### [facility] [address] [place], [address] Potassium [Moles/Vol] 3.4 mmol/L Low 3.5-5.1 [facility] Comment on above: Performed By: #### L 500.2500, L100.0100 #### [facility] [address] [place], [address] Sodium [Moles/Vol] 139 mmol/L Normal 136-145 [facility] Comment on above: Performed By: #### L 500.2500, L100.0100 #### [facility] [address] [place], [address] Urea nitrogen [Mass/Vol] 12 mg/dL Normal 7-18 [facility] Comment on above: Performed By: #### L 500.2500, L100.0100 #### [facility] [address] [place], [address] CBC W/Diff, Automatedon 10-31 Absolute Lymph 1.20 X10 3/uL Normal 0.83-4.51 [facility] Comment on above: Performed By: #### L 500.2500, L100.0100 #### [facility] [address] [place], [address] Absolute Neut 6.1 X10 3/uL Normal 2.0-7.7 [facility] Comment on above: Performed By: #### L 500.2500, L100.0100 #### [facility] [address] [place], [address] Basophils/100 WBC (Bld) 0.3 % Normal 0-1 [facility] Comment on above: Performed By: #### L 500.2500, L100.0100 #### [facility] [address] [place], [address] Eosinophils/100 WBC (Bld) 0.0 % Normal 0-5 [facility] Comment on above: Performed By: #### L 500.2500, L100.0100 #### [facility] [address] [place], [address] Erythrocyte distribution width (RBC) [Ratio] 13.3 % Normal 11.6-14.6 [facility] Comment on above: Performed By: #### L 500.2500, L100.0100 #### [facility] [address] [place], [address] Hematocrit (Bld) [Volume fraction] 40.4 % Normal 37-47 [facility] Comment on above: Performed By: #### L 500.2500, L100.0100 #### [facility] [address] [place], [address] Hemoglobin (Bld) [Mass/Vol] 13.4 g/dL Normal 12.0-15.0 [facility] Comment on above: Performed By: #### L 500.2500, L100.0100 #### [facility] [address] [place], [address] IG% 0.300 Normal 0.0-0.9 [facility] Comment on above: Result Comment: IG% - Immature Granulocytes (promyelocytes, myelocytes and metamyelocytes) > 1% indicates that a LEFT SHIFT is Present. Performed By: #### L 500.2500, L100.0100 #### [facility] [address] [place], [address] Lymphocytes/100 WBC (Bld) 16.1 % Low 19-41 [facility] Comment on above: Performed By: #### L 500.2500, L100.0100 #### [facility] [address] [place], [address] MCH (RBC) [Entitic mass] 29.0 pg Normal 27.0-32.0 [facility] Comment on above: Performed By: #### L 500.2500, L100.0100 #### [facility] [address] [place], [address] MCHC (RBC) [Mass/Vol] 33.2 g/dL Normal 32-36 [facility] Comment on above: Performed By: #### L 500.2500, L100.0100 #### [facility] [address] [place], [address] MCV (RBC) [Entitic vol] 87.4 fL Normal 81-99 [facility] Comment on above: Performed By: #### L 500.2500, L100.0100 #### [facility] [address] [place], [address] Monocytes/100 WBC (Bld) 1.2 % Normal 0-10 [facility] Comment on above: Performed By: #### L 500.2500, L100.0100 #### [facility] [address] [place], [address] Neutrophils/100 WBC (Bld) 82.1 % High 47-70 [facility] Comment on above: Performed By: #### L 500.2500, L100.0100 #### [facility] [address] [place], [address] Nucleated RBC (Bld) [#/Vol] 0 10*3/uL Normal 0-5 [facility] Comment on above: Performed By: #### L 500.2500, L100.0100 #### [facility] [address] [place], [address] Platelet mean volume (Bld) [Entitic vol] 11.5 fL Normal 6.2-12.0 [facility] Comment on above: Performed By: #### L 500.2500, L100.0100 #### [facility] [address] [place], [address] Platelets (Bld) [#/Vol] 205 10*3/uL Normal 150-450 [facility] Comment on above: Performed By: #### L 500.2500, L100.0100 #### [facility] [address] [place], [address] RBC (Bld) [#/Vol] 4.62 10*6/uL Normal 4.2-5.4 [facility] Comment on above: Performed By: #### L 500.2500, L100.0100 #### [facility] [address] [place], [address] RDW SD 42.8 fl Normal 35.1-43.9 [facility] Comment on above: Performed By: #### L 500.2500, L100.0100 #### [facility] [address] [place], [address] WBC (Bld) [#/Vol] 7.5 10*3/uL Normal 4.4-11.0 [facility] Comment on above: Performed By: #### L 500.2500, L100.0100 #### [facility] [address] [place], [address] BNP (brain natriuretic pepti de measurement)Ordered By: Doron Bernardo on 11-17-2024 Natriuretic peptide B (Bld) [Mass/Vol] 25.2 pg/mL 0-100 [facility] BNP,B-Type NATRIURETIC PEPTI Izaiah 11-17-2024 Natriuretic peptide B (Bld) [Mass/Vol] 25.2 pg/mL Normal 0-100 [facility] Comment on above: Performed By: #### L 100.0100, L500.2500 #### [facility] [address] [place], [address] Basic Metabolic Profile (BMP )on 11-17-2024 BUN/CRE 9.3 RATIO Low 10-20 [facility] Comment on above: Performed By: #### L 100.0100, L500.2500 #### [facility] [address] [place], [address] CA,Total 9.4 mg/dL Normal 8.5-10.1 [facility] Comment on above: Performed By: #### L 100.0100, L500.2500 #### [facility] [address] [place], [address] Chloride [Moles/Vol] 102 mmol/L Normal 98-107 [facility] Comment on above: Performed By: #### L 100.0100, L500.2500 #### [facility] [address] [place], [address] CO2 [Moles/Vol] 27.0 mmol/L Normal 21.0-32.0 [facility] Comment on above: Performed By: #### L 100.0100, L500.2500 #### [facility] [address] [place], [address] Creatinine [Mass/Vol] 1.07 mg/dL High 0.55-1.02 [facility] Comment on above: Result Comment: The validity of the calculated GFR GFRAA in patients over 70 years has not been determined. Clinical correlation is essential. Performed By: #### L 100.0100, L500.2500 #### [facility] [address] [place], [address] ECRCL 57.66 ml/min Normal [facility] Comment on above: Performed By: #### L 100.0100, L500.2500 #### [facility] [address] [place], [address] EST GFR - AA 65 mL/min Normal >60 [facility] Comment on above: Result Comment: Afri can Ecu[place] GFR Calc Performed By: #### L 100.0100, L500.2500 #### [facility] [address] [place], [address] GAP 10 Normal 5-15 [facility] Comment on above: Performed By: #### L 100.0100, L500.2500 #### [facility] [address] [place], [address] GFR/1.73 sq M.predicted among non-blacks MDRD (S/P/Bld) [Vol rate/Area] 54 mL/min/{1.73_m2} Low >60 [facility] Comment on above: Result Comment: Non- GFR Calc Performed By: #### L 100.0100, L500.2500 #### [facility] [address] [place], [address] Glucose [Mass/Vol] 105 mg/dL Normal 74-106 [facility] Comment on above: Result Comment: Fast ing Glucose result from 100 to 125 mg/dL suggests IMPAIRED HOMEOSTASIS per A.D.A. criteria. Performed By: #### L 100.0100, L500.2500 #### [facility] [address] [place], [address] Potassium [Moles/Vol] 3.5 mmol/L Normal 3.5-5.1 [facility] Comment on above: Result Comment: Slig ht Hemolysis, Result may be falsely increased. Performed By: #### L 100.0100, L500.2500 #### [facility] [address] [place], [address] Sodium [Moles/Vol] 139 mmol/L Normal 136-145 [facility] Comment on above: Performed By: #### L 100.0100, L500.2500 #### [facility] [address] [place], [address] Urea nitrogen [Mass/Vol] 10 mg/dL Normal 7-18 [facility] Comment on above: Performed By: #### L 100.0100, L500.2500 #### [facility] [address] [place], [address] CBC W/Diff, Automatedon 10-31 PLT EST A Normal ADEQ [facility] Comment on above: Performed By: #### L 100.0100, L500.2500 #### [facility] [address] [place], [address] Chest PA and Lateralon 11-17 Chest PA and Lateral [facility] Imaging Services [address] [place] [address] Chest PA and Lateral MR#: [id number] Acct: [id number] Name: DIANNE ALVES Rep #: [id number] : 1955 F 69 From: Aquiles De La Torre MD PCP: Dr. Leonie Peterson MD Status: REG ER Study: Chest PA and Lateral Date of Exam: 11/17/24 Exam# [id number] Ordering Dr: Doron Bernardo DO PROCEDURE: CHEST [...] Leonie Peterson MD; Dr. Doron Bernardo DO Chief Ii Dispatcher: Signed Normal [facility] Echo Complete W/ Contraston 11-17-2024 Echo Complete W/ Contrast [facility] [address] [place] [address] Echo Complete W/ Contrast 11/18/24 1311 MR#: [id number] Acct: [id number] Name: DIANNE ALVES Rep #: [id number] : 1955 69 From: Alexia Gil MD Attending Dr: Dr. Rita Kenny MD Status: AD M IN Ordering Dr: Stephenie Yu MD Date: 11/17/24 Location: [facility] Sex: F AA Admitted: 11/17/24 Reason For [...] Dictated: 11/18/24 1311 Date Transcribed: 11/18/24 1447 Chief Ii Dispatcher: Signed Normal [facility] Emergency Department Summary on 11-17-2024 Emergency Department Summary [facility] Medical Records Department [address] [place] [address] Emergency Department Summary 11/17/24 MR#: [id number] Acct: [id number] Name: DIANNE ALVES Rep #: [id number] : 1955 69 From: Doron Bernardo DO [...] placed her on 5 L nasal cannula. [facility] Medical History Wears glasses Post-menopausal [...] conjunctival injection (more content not included)... Normal [facility] H AND P Exam - Hospitaliston 11-17-2024 H&P Exam - Hospitalist [facility] Medical Records Department [address] [place] [address] H P Exam - Hospitalist 11/17/24 1457 MR#: [id number] Acct: [id number] Name: DIANNE ALVES Rep #: [id number] : 1955 69 From: Stephenie Yu MD PCP: Dr. Leonie Peterson MD Status:ADM IN Location: [place] [id number] HPI - General General Date of Admission: 11/17/24 Date of Service: 11/17/24 Chief Complaint: Increase shortness of breath HPI Narrative DIANNE ALVES, is a 69-year-old female history of COPD on 2 L nasal cannula chronically, GERD, hep C who presented [facility] ED 09/16/2025 due to shortness of [...] thinner or if she is on 1. [facility] Medical History Wears glasses Post-menopausal Gastric reflux [...] former substanc (more content not included)... Normal [facility] Influenza virus A and B and SARS-CoV-2 (COVID-19) and Respiratory syncytial virus RNAOrdered By: Doron Bernardo on 11-17-2024 SARS-CoV-2 (COVID-19) RNA SHEELA+probe Ql (Unsp spec) Influenzae A Abnormal [facility] International normalized rat io (INR) calculationOrdered By: Doron Bernardo on 11-17-2024 INR Coag (Bld) [Relative time] 1.1 {INR} [facility] L501.4020on 11-17-2024 TROPONIN-I HS 59 pg/mL High 3.0-54.0 [facility] Comment on above: Order Comment: 'TROP ' Serial specimen #1, #2 or #3: 1 Result Comment: Plea se Note: New Test Units and Gender Specific Reference Ranges. For more information see Policy Stat Procedure [place] High Sensitivity Troponin (TNIH) and attachments. Performed By: #### L 100.0100, L500.2500 #### [facility] [address] [place], [address] TROPONIN-I HS 71 pg/mL High 3.0-54.0 [facility] Comment on above: Result Comment: Plea se Note: New Test Units and Gender Specific Reference Ranges. For more information see Policy Stat Procedure [place] High Sensitivity Troponin (TNIH) and attachments. Performed By: #### L 501.4020 #### [facility] [address] [place], [address] L501.5425on 11-17-2024 TROPONIN-I HS 68 pg/mL High 3.0-54.0 [facility] Comment on above: Order Comment: 1Y Result Comment: [place] Note: New Test Units and Gender Specific Reference Ranges. For more information see Policy Stat Procedure [place] High Sensitivity Troponin (TNIH) and attachments. Performed By: #### L 100.0100, L500.2500 #### [facility] [address] [place], [address] M100.678on 11-17-2024 M100.678 Normal Reference Ran ge = Negative FLUABV+SARS-CoV-2+RSV Pnl Resp SHEELA+probe [employer] Instrument, PCR method FLUABV+SARS-CoV-2+RSV Pnl Resp SHEELA+probe Copy of report sent to Infection Control Printer MS#[id number] 11/17/24 3352 HEATHERJAIMIE. FLUABV+SARS-CoV-2+RSV Pnl Resp SHEELA+probe RESULTS CALLED TO Yves FITZPATRICK 11/17/24 1317 [place]. REPORT READ BACK BY . SARS-CoV-2 (COVID 19) Negative INFLUENZA A A Positive A INFLUENZA B Negative RSV PCR Negative INFLUENZAE A Normal [facility] Comment on above: Performed By: #### M 100.678 ####[facility] [address] [place], [place], [id number] Partial Thromboplast Timeon 11-17-2024 aPTT Coag (Bld) [Time] 28.7 s Normal 24.1-36.2 [facility] Comment on above: Order Comment: HUGO Alegria PREVIOUS SPECIMEN REJECTED DUE TOHEMOLYSIS. 11/17/24 1237 Maria Elena Courtney. Performed By: #### L 300.4310, L300.3900 ####[facility] [address] [place], [place], [id number] Platelets LM Ql (Bld)Ordered By: Doron Bernardo on 11-17-2024 Platelet Estimate A ADEQ [facility] Prothrombin Time w/INRon INR Coag (PPP) [Relative time] 1.1 {INR} Normal [facility] Comment on above: Order Comment: REDRA W. PREVIOUS SPECIMEN REJECTED DUE TOHEMOLYSIS. 11/17/24 1237 Maria Elena Courtney. Performed By: #### L 300.4310, L300.3900 ####[facility] [address] [place], [address] PT Coag (PPP) [Time] 14.5 s Normal 11.7-14.9 [facility] Comment on above: Order Comment: REDRA W. PREVIOUS SPECIMEN REJECTED DUE TOHEMOLYSIS. 11/17/24 1237 Maria Elena Courtney. Performed By: #### L 300.4310, L300.3900 ####[facility] [address] [place], [address] INR Normal [facility] Comment on above: Result Comment: This specimen has been REJECTED due to Laboratory criteria: Hemolyzed. KRANTHI has been notified of need of recollection. 11/17/24 1236 Maria Elena Dealzano Performed By: #### L 100.0100, L500.2500 #### [facility] [address] [place], [address] PROTIME Normal 11.7-14.9 [facility] Comment on above: Result Comment: This specimen has been REJECTED due to Laboratory criteria: Hemolyzed. KRANTHI has been notified of need of recollection. 11/17/24 1236 Maria Elena Dealzano Performed By: #### L 100.0100, L500.2500 #### [facility] [address] [place], [address] Prothrombin timeOrdered By: Doron Bernardo on 11-17-2024 PT Coag (PPP) [Time] 14.5 s 11.7-14.9 [facility] Troponin IOrdered By: Stephenie Yu on 11-17-2024 Troponin I High Sensitivity 59 pg/mL High 3.0-54.0 [facility] Comment on above: Please Note: New Fina t Units and Gender Specific Reference Ranges. For more information see Policy Stat Procedure [place] High Sensitivity Troponin (TNIH) and attachments. aPTT Coag (PPP) [Time]Ordere d By: Doron Bernardo on 11-17-2024 aPTT Coag (Bld) [Time] 28.7 s 24.1-36.2 Wo [facility] CNCOon 11-11-2024 CNCO Letter Text Normal [facility] CNOVon 11-09-2024 CNOV Normal [facility] CT LUNG SCREEN WO IVCONon CT LUNG SCREEN WO IVCON Normal [facility] Basic metabolic 2000 panelon 10-30-2024 Anion gap [Moles/Vol] 11 mmol/L Normal 8-15 [facility] Comment on above: Order Comment: Speci men Type: BLOOD SPECIMENOrdering Facility: [facility] Address: [address] [place] [address] Performed By: #### 2 4321-2, 83551-4, 3051-0, 3053-6 ####[facility] LABCLIA [id number] [place] [address] [place] Calcium [Mass/Vol] 9.8 mg/dL Normal 8.5-10.2 [facility] Comment on above: Order Comment: Speci men Type: BLOOD SPECIMENOrdering Facility: [facility] Address: [address] [place] [address] Performed By: #### 2 4321-2, 40218-4, 3051-0, 3053-6 ####[facility] LABCLIA [id number] [place] [address] [place] Chloride [Moles/Vol] 106 mmol/L Normal 98-107 [facility] Comment on above: Order Comment: Speci men Type: BLOOD SPECIMENOrdering Facility: [facility] Address: [address] [place] [address] Performed By: #### 2 4321-2, 20027-8, 3051-0, 3053-6 ####[facility] LABCLIA [id number] [place] [address] [place] CO2 [Moles/Vol] 23 mmol/L Normal 22-30 [facility] Comment on above: Order Comment: Speci men Type: BLOOD SPECIMENOrdering Facility: [facility] Address: [address] [place] [address] Performed By: #### 2 4321-2, 77160-1, 3051-0, 3053-6 ####[facility] LABCLIA [id number] [place] [address] [place] Creatinine [Mass/Vol] 1.03 mg/dL High 0.58-0.96 [facility] Comment on above: Order Comment: Speci men Type: BLOOD SPECIMENOrdering Facility: [facility] Address: [address] [place] [address] Performed By: #### 2 4321-2, 55003-3, 3051-0, 3053-6 ####[facility] LABIA [id number] [place] [address] [place] Creatinine and Glomerular filtration rate.predicted panel (S/P/Bld) 59 mL/min/1.73m??? Low >=60 [facility] Comment on above: Order Comment: Jalen santizo Type: BLOOD SPECIMENOrdering Facility: [facility] Address: [address] [place] [address] Result Comment: Sigrid mated Glomerular Filtration Rate [...] actual GFR. Performed By: #### 2 4321-2, 58974-8, 3051-0, 3053-6 ####[facility] LABCLIA [id number] [place] [id number] [place] Glucose [Mass/Vol] 98 mg/dL Normal 74-99 [facility] Comment on above: Order Comment: Wmi men Type: BLOOD SPECIMENOrdering Facility: [facility] Address: [address] [place] [address] Result Comment: The [place] Diabetes Association (ADA) provides guidance for cutoff [...] Standards of Medical Care in Diabetes 2016, [place] Diabetes Association. Diabetes Care. 2016.39(Suppl 1). Performed By: #### 2 4321-2, 08573-8, 3051-0, 3053-6 ####[facility] LABCLIA [id number] [place] [address] [place] Potassium [Moles/Vol] 4.1 mmol/L Normal 3.7-5.1 [facility] Comment on above: Order Comment: Jalen santizo Type: BLOOD SPECIMENOrdering Facility: [facility] Address: [address] [place] [address] Performed By: #### 2 4321-2, 73441-9, 3051-0, 3053-6 ####[facility] LABCLIA [id number] [place] [address] [place] Sodium [Moles/Vol] 140 mmol/L Normal 136-144 [facility] Comment on above: Order Comment: Wmi men Type: BLOOD SPECIMENOrdering Facility: [facility] Address: [address] [place] [address] Performed By: #### 2 4321-2, 24626-4, 3051-0, 3053-6 ####[facility] LABCLIA [id number] [place] [address] [place] Urea nitrogen [Mass/Vol] 14 mg/dL Normal 7-21 [facility] Comment on above: Order Comment: Speci men Type: BLOOD SPECIMENOrdering Facility: [facility] Address: [address] [place] [address] Performed By: #### 2 4321-2, 56508-6, 3051-0, 3053-6 ####[facility] LABCLIA [id number] [place] [address] [place] CBC W Auto Differential pane l (Bld)on 10-30-2024 Basophils (Bld) [#/Vol] 0.04 10*3/uL Normal <0.11 [facility] Comment on above: Order Comment: Speci men Type: BLOOD SPECIMENOrdering Facility: [facility] Address: [address] [place] [address] Performed By: #### 5 7021-8 ####[facility] LABCLIA [id number] [place] [address] [place] Basophils/100 WBC (Bld) 0.7 % Normal [facility] Comment on above: Order Comment: Speci men Type: BLOOD SPECIMENOrdering Facility: [facility] Address: [address] [place] [address] Performed By: #### 5 7021-8 ####[facility] LABCLIA [id number] [place] [address] [place] Differential cell count method Nom (Bld) Auto Normal [facility] Comment on above: Order Comment: Speci men Type: BLOOD SPECIMENOrdering Facility: [facility] Address: [address] [place] [address] Performed By: #### 5 7021-8 ####[facility] LABCLIA [id number] [place] [address] [place] Eosinophils (Bld) [#/Vol] 0.27 10*3/uL Normal <0.46 [facility] Comment on above: Order Comment: Speci men Type: BLOOD SPECIMENOrdering Facility: [facility] Address: [address] [place] [address] Performed By: #### 5 7021-8 ####[facility] LABCLIA [id number] [place] [id number] [place] Eosinophils/100 WBC (Bld) 4.7 % Normal [facility] Comment on above: Order Comment: Speci men Type: BLOOD SPECIMENOrdering Facility: [facility] Address: [address] [place] [address] Performed By: #### 5 7021-8 ####[facility] LABIA [id number] [place] [address] [place] Erythrocyte distribution width (RBC) [Ratio] 13.9 % Normal 11.5-15.0 [facility] Comment on above: Order Comment: Speci men Type: BLOOD SPECIMENOrdering Facility: [facility] Address: [address] [place] [address] Performed By: #### 5 7021-8 ####[facility] LABCLIA [id number] [place] [address] [place] Hematocrit (Bld) [Volume fraction] 46.4 % High 36.0-46.0 [facility] Comment on above: Order Comment: Speci men Type: BLOOD SPECIMENOrdering Facility: [facility] Address: [address] [place] [address] Performed By: #### 5 7021-8 ####[facility] LABCLIA [id number] [place] [id number] [place] Hemoglobin (Bld) [Mass/Vol] 15.1 g/dL Normal 11.5-15.5 [facility] Comment on above: Order Comment: Speci men Type: BLOOD SPECIMENOrdering Facility: [facility] Address: [address] [place] [address] Performed By: #### 5 7021-8 ####[facility] LABCLIA [id number] [place] [address] [place] Immature granulocytes (Bld) [#/Vol] 10*3/uL Normal <0.10 [facility] Comment on above: Order Comment: Speci men Type: BLOOD SPECIMENOrdering Facility: [facility] Address: [address] [place] [address] Performed By: #### 5 7021-8 ####[facility] LABCLIA [id number] [place] [address] [place] Immature granulocytes/100 WBC (Bld) 0.2 % Normal [facility] Comment on above: Order Comment: Speci men Type: BLOOD SPECIMENOrdering Facility: [facility] Address: [address] [place] [address] Performed By: #### 5 7021-8 ####[facility] LABCLIA [id number] [place] [address] [place] Lymphocytes (Bld) [#/Vol] 2.33 10*3/uL Normal 1.00-4.00 [facility] Comment on above: Order Comment: Speci men Type: BLOOD SPECIMENOrdering Facility: [facility] Address: [address] [place] [address] Performed By: #### 5 7021-8 ####[facility] LABCLIA [id number] [place] [address] [place] Lymphocytes/100 WBC (Bld) 40.9 % Normal [facility] Comment on above: Order Comment: Speci men Type: BLOOD SPECIMENOrdering Facility: [facility] Address: [address] [place] [address] Performed By: #### 5 7021-8 ####[facility] LABCLIA [id number] [place] [address] [place] MCH (RBC) [Entitic mass] 29.2 pg Normal 26.0-34.0 [facility] Comment on above: Order Comment: Speci men Type: BLOOD SPECIMENOrdering Facility: [facility] Address: [address] [place] [address] Performed By: #### 5 7021-8 ####[facility] LABCLIA [id number] [place] [address] [place] MCHC (RBC) [Mass/Vol] 32.5 g/dL Normal 30.5-36.0 [facility] Comment on above: Order Comment: Speci men Type: BLOOD SPECIMENOrdering Facility: [facility] Address: [address] [place] [address] Performed By: #### 5 7021-8 ####[facility] LABIA [id number] [place] [address] [place] MCV (RBC) [Entitic vol] 89.6 fL Normal 80.0-100.0 [facility] Comment on above: Order Comment: Speci men Type: BLOOD SPECIMENOrdering Facility: [facility] Address: [address] [place] [address] Performed By: #### 5 7021-8 ####[facility] LABIA [id number] [place] [address] [place] Monocytes (Bld) [#/Vol] 0.37 10*3/uL Normal <0.87 [facility] Comment on above: Order Comment: Speci men Type: BLOOD SPECIMENOrdering Facility: [facility] Address: [address] [place] [address] Performed By: #### 5 7021-8 ####[facility] LABIA [id number] [place] [address] [place] Monocytes/100 WBC (Bld) 6.5 % Normal [facility] Comment on above: Order Comment: Speci men Type: BLOOD SPECIMENOrdering Facility: [facility] Address: [address] [place] [address] Performed By: #### 5 7021-8 ####[facility] LABCLIA [id number] [place] [address] [place] Neutrophils (Bld) [#/Vol] 2.67 10*3/uL Normal 1.45-7.50 [facility] Comment on above: Order Comment: Speci men Type: BLOOD SPECIMENOrdering Facility: [facility] Address: [address] [place] [address] Performed By: #### 5 7021-8 ####[facility] LABCLIA [id number] [place] [address] [place] Neutrophils/100 WBC (Bld) 47.0 % Normal [facility] Comment on above: Order Comment: Speci men Type: BLOOD SPECIMENOrdering Facility: [facility] Address: [address] [place] [address] Performed By: #### 5 7021-8 ####[facility] LABCLIA [id number] [place] [address] [place] Nucleated RBC (Bld) [#/Vol] 10*3/uL Normal <0.01 [facility] Comment on above: Order Comment: Speci men Type: BLOOD SPECIMENOrdering Facility: [facility] Address: [address] [place] [address] Performed By: #### 5 7021-8 ####[facility] LABCLIA [id number] [place] [address] [place] Nucleated RBC/100 WBC (Bld) [Ratio] 0.0 /100 WBC Normal [facility] Comment on above: Order Comment: Speci men Type: BLOOD SPECIMENOrdering Facility: [facility] Address: [address] [place] [address] Performed By: #### 5 7021-8 ####[facility] LABCLIA [id number] [place] [address] [place] Platelet mean volume (Bld) [Entitic vol] 10.8 fL Normal 9.0-12.7 [facility] Comment on above: Order Comment: Speci men Type: BLOOD SPECIMENOrdering Facility: [facility] Address: [address] [place] [address] Performed By: #### 5 7021-8 ####[facility] LABCLIA [id number] [place] [address] [place] Platelets (Bld) [#/Vol] 290 10*3/uL Normal 150-400 [facility] Comment on above: Order Comment: Speci men Type: BLOOD SPECIMENOrdering Facility: [facility] Address: [address] [place] [address] Performed By: #### 5 7021-8 ####[facility] LABCLIA [id number] [place] [address] [place] RBC (Bld) [#/Vol] 5.18 10*6/uL Normal 3.90-5.20 [facility] Comment on above: Order Comment: Speci men Type: BLOOD SPECIMENOrdering Facility: [facility] Address: [address] [place] [address] Performed By: #### 5 7021-8 ####[facility] LABCLIA [id number] [place] [address] [place] WBC (Bld) [#/Vol] 5.69 10*3/uL Normal 3.70-11.00 [facility] Comment on above: Order Comment: Speci men Type: BLOOD SPECIMENOrdering Facility: [facility] Address: [address] [place] [address] Performed By: #### 5 7021-8 ####[facility] LABCLIA [id number] [place] [address] [place] CNOVon 10-30-2024 CNOV Normal [facility] HbA1c (Bld)on 10-30-2024 Average glucose Estimated from glycated hemoglobin (Bld) [Mass/Vol] 120 mg/dL Normal [facility] Comment on above: Order Comment: Jalen santizo Type: BLOOD SPECIMENOrdering Facility: [facility] Address: [address] [place] [address] Result Comment: eAG: (Estimated average glucose) is a calculated value from HgbA1c and is sales representative malt liquors of the average blood glucose level in the last 2-3 month period. Performed By: #### 5 5454-3 ####[facility] LABCLIA [id number] [place] [address] [place] HbA1c (Bld) [Mass fraction] 5.8 % High 4.3-5.6 [facility] Comment on above: Order Comment: Jalen santizo Type: BLOOD SPECIMENOrdering Facility: [facility] Address: [address] [place] [address] Result Comment: Amer ican Diabetes Association guidelines indicate that patients with HgbA1c in the range 5.7-6.4% are at increased risk for development of diabetes, and intervention by lifestyle modification may be beneficial. HgbA1c greater or equal to 6.5% is considered diagnostic of diabetes. Performed By: #### 5 5454-3 ####[facility] LABCLIA [id number] [place] [address] [place] Lipid 1996 panelon 5 Cholesterol [Mass/Vol] 241 mg/dL High <200 [facility] Comment on above: Order Comment: Jalen santizo Type: BLOOD SPECIMENOrdering Facility: [facility] Address: [address] [place] [address] Result Comment: <200 mg/dL, Desirable 200-239 mg/dL, Borderline high>239 mg/dL, High Performed By: #### 2 4321-2, 56928-4, 3051-0, 3053-6 ####[facility] LABCLIA [id number] [address] [place] Cholesterol in HDL [Mass/Vol] 51 mg/dL Normal >39 [facility] Comment on above: Order Comment: Jalen sukhdev Type: BLOOD SPECIMENOrdering Facility: [facility] Address: [address] [place] [address] Result Comment: 40-5 9 mg/dL, Acceptable>59 mg/dL, High: Negative risk factor for coronary heart disease<40 mg/dL, Low: Positive risk factor for coronary heart disease Performed By: #### 2 4321-2, 17520-0, 3051-0, 3053-6 ####[facility] LABCLIA [id number] [place] [id number] [place] Cholesterol in LDL [Mass/Vol] 166 mg/dL High <100 [facility] Comment on above: Order Comment: Speci men Type: BLOOD SPECIMENOrdering Facility: [facility] Address: [address] [place] [address] Result Comment: <100 mg/dL, Optimal 100-129 mg/dL, Near optimal/above optimal 130-159 mg/dL, Borderline high 160-189 mg/dL, High>189 mg/dL, Very highSecondary prevention optimal LDL Cholesterol levels are recommended to be < 70 mg/dL Performed By: #### 2 4321-2, 84415-9, 3051-0, 3053-6 ####[facility] LABCLIA [id number] [place] [address] [place] Cholesterol in LDL/Cholesterol in HDL [Mass ratio] 3.25 {ratio} High <2.54 [facility] Comment on above: Order Comment: Speci men Type: BLOOD SPECIMENOrdering Facility: [facility] Address: [address] [place] [address] Result Comment: Refe rence:1. National Cholesterol Education Program ATP III Guideline At-A-Glance Quick Desk Reference: National Heart, Lung, and Blood [place]. National Institutes of Health. 2001: NIH Publication No. 01-3305.2. An International Atherosclerosis Society position paper: global recommendations for the management of dyslipidemia: executive summary, Atherosclerosis. 2014: 232(2):410-413. Performed By: #### 2 4321-2, 56159-3, 3051-0, 3053-6 ####[facility] LABCLIA [id number] [address] [address] [place] Cholesterol in VLDL [Mass/Vol] 24 mg/dL Normal <30 [facility] Comment on above: Order Comment: Speci men Type: BLOOD SPECIMENOrdering Facility: [facility] Address: [address] [place] [address] Performed By: #### 2 4321-2, 74267-2, 305-0, 305-6 ####[facility] LABCLIA [id number] [address] [address] [place] Cholesterol non HDL [Mass/Vol] 190 mg/dL High <130 [facility] Comment on above: Order Comment: Speci men Type: BLOOD SPECIMENOrdering Facility: [facility] Address: [address] [place] [address] Result Comment: <130 mg/dL, Optimal 130-159 mg/dL, Near optimal/above optimal 160-189 mg/dL, Borderline high 190-219 mg/dL, High>219 mg/dL, Very highSecondary prevention optimal non HDL Cholesterol levels are recommended to be <100 mg/dL Performed By: #### 2 4321-2, 80660-0, 305-0, 305-6 ####[facility] LABCLIA [id number] [address] [address] [place] Cholesterol.total/Chol esterol in HDL [Mass ratio] 4.73 {ratio} Normal <5.10 [facility] Comment on above: Order Comment: Speci men Type: BLOOD SPECIMENOrdering Facility: [facility] Address: [address] [place], [place] [id number] Performed By: #### 2 4321-2, 53001-3, 305-0, 305-6 ####[facility] LABCLIA [id number] [address] [address] [place] FASTING TIME 12 hrs Normal [facility] Comment on above: Order Comment: Speci men Type: BLOOD SPECIMENOrdering Facility: [facility] Address: [address] [place] [address] Performed By: #### 2 4321-2, 23005-1, 305-0, 3056 ####[facility] LABCLIA [id number] [place] [address] [place] Triglyceride [Mass/Vol] 120 mg/dL Normal <150 [facility] Comment on above: Order Comment: Speci men Type: BLOOD SPECIMENOrdering Facility: [facility] Address: [address] [place] [address] Result Comment: <150 mg/dL, Normal 150-199 mg/dL, Borderline high 200-499 mg/dL, High>499 mg/dL, Very high Performed By: #### 2 4321-2, 38262-7, 305-0, 6 ####[facility] LABCLIA [id number] [place] [address] [place] Magnesium SerPl-mCncon 10-30 Magnesium [Mass/Vol] 2.0 mg/dL Normal 1.7-2.3 [facility] Comment on above: Order Comment: Speci men Type: BLOOD SPECIMENOrdering Facility: [facility] Address: [address] [place] [address] Performed By: #### 3 024-7, 96306-7, 3016-3 ####[facility] LABCLIA [id number] [place] [address] [place] T3 SerPl-mCncon 10-30-2024 T3 [Mass/Vol] 101 ng/dL Normal 79-165 [facility] Comment on above: Order Comment: Speci men Type: BLOOD SPECIMENOrdering Facility: [facility] Address: [address] [place] [address] Performed By: #### 2 4321-2, 38233-2, 305-0, 3056 ####[facility] LABCLIA [id number] [place] [address] [place] T3Free SerPl-mCncon 10-30-19 25 Free T3 [Mass/Vol] 3.1 pg/mL Normal 2.3-4.1 [facility] Comment on above: Order Comment: Speci men Type: BLOOD SPECIMENOrdering Facility: [facility] Address: [address] [place] [address] Performed By: #### 2 4321-2, 62336-9, 3051-0, 3053-6 ####[facility] LABIA [id number] [place] [address] [place] T4 Free SerPl-mCncon 025 Free T4 [Mass/Vol] 1.3 ng/dL Normal 0.9-1.7 [facility] Comment on above: Order Comment: Speci men Type: BLOOD SPECIMENOrdering Facility: [facility] Address: [address] [place] [address] Performed By: #### 3 024-7, 45136-3, 3016-3 ####[facility] [id number] [place] [address] [place] TSH SerPl-aCncon 10-30-2024 TSH Qn 0.138 m[IU]/L Low 0.270-4.200 [facility] Comment on above: Order Comment: Speci men Type: BLOOD SPECIMENOrdering Facility: [facility] Address: [address] [place] [address] Performed By: #### 3 024-7, 02052-9, 3016-3 ####[facility] [id number] [place] [id number] [place] CNOVon 10-27-2024 CNOV Office Visit (AGHWW1 ) -------- DIANNE ALVES ([id number]) 1955 F Date Time Provider Department 10/27/24 [...] Order(s):XR SHOULDER 3V AP/Y VIEW/AXILLARY LEFT (AK) [[id number]] Order #: [id number] diclofenac (VOLTAREN) 1 % topical gelApply 2 [...] as needed for wheezing/shortness of breath. - bcykhtvipo-vrzikgnx-rbik oterol (BREZTRI) 160-9-4.8 mcg/actuation HFA aerosol inhaler [...] 09/13/2022 Pulmona (more content not included)... Normal [facility] CNPNon 09-25-2024 CNPN Normal [facility] CNOVon 09-21-2024 CNOV Normal [facility] T3 SerPl-mCncon 09-21-2024 T3 [Mass/Vol] 88 ng/dL Normal 79-165 [facility] Comment on above: Order Comment: Speci men Type: BLOOD SPECIMENOrdering Facility: [facility] Address: [address] [place] [address] Performed By: #### 3 053-6, 3016-3, 3024-7 ####[facility] LABCLIA [id number] [facility] [id number] [address] [place] T4 Free SerPl-mCncon 024 Free T4 [Mass/Vol] 1.3 ng/dL Normal 0.9-1.7 [facility] Comment on above: Order Comment: Speci men Type: BLOOD SPECIMENOrdering Facility: [facility] Address: [address] [place] [address] Performed By: #### 3 053-6, 3016-3, 3024-7 ####[facility] LABCLIA [id number] [address] [place] TSH SerPl-aCncon 09-21-2024 TSH Qn 0.648 m[IU]/L Normal 0.270-4.200 [facility] Comment on above: Order Comment: Speci men Type: BLOOD SPECIMENOrdering Facility: [facility] Address: [address] [place] [address] Performed By: #### 3 053-6, 3016-3, 3024-7 ####[facility] LABCLIA [id number] [address] OF [facility] CNOVon 09-15-2024 CNOV Office Visit (AGHWW1 ) -------- DIANNE ALVES ([id number]) 1955 F Date Time Provider Department 09/15/24 [...] Order(s):XR SHOULDER 3V AP/Y VIEW/AXILLARY LEFT ([place]) [[id number]] Order #: [id number] CONSULT TO PHYSICAL THERAPY [9032] Order #: [id number]: 1 FUTURE oxyCODONE-acetaminophen (PERCOCET) 5-325 mg tabletTake [...] as needed for wheezing/shortness of breath. - npolxypgko-epxplkgl-xwmm oterol (BREZTRI) 160-9-4.8 mcg/actuation HFA aerosol inhaler [...] 11/01/2020 Other (more content not included)... Normal [facility] CNPTOUTREACHon 09-08-2024 CNPTOUTREACH Normal [facility] CNPTOUTREACHon 08-28-2024 CNPTOUTREACH Normal [facility] CNPTOUTREACHon 08-25-2024 CNPTOUTREACH Normal [facility] CNOVon 08-18-2024 CNOV Office Visit (AGHWW1 ) -------- DIANNE ALVES ([id number]) 1955 F Date Time Provider Department 08/18/24 10:45 AM DOMINICK PAYTON HWW1 During your visit today, we recorded the following information about you: Temperature Weight Height 98.2 degrees 97.5 kg 1.676 m Dioegnes Varela Tech 08/19/2024 8:50 AM Signed REVIEW [...] AND Elbow Surgeon Department of Orthopaedic Surgery [facility] Allergies As of Date: 08/18/2024 (No Known Allergies) Date Reviewed: 08/18/2024 Reviewed by: Diogenes Varela Tech - Fully Assessed Reason for Visit: Follow Up [171] Pain [78] Post Op [174] Primary Visit Diagnosis:S/P reverse total shoulder arthroplasty, left [Z96.612] Order(s):XR SHOULDER 3V AP/Y VIEW/AXILLARY LEFT (AK) [[id number]] Order #: [id number] oxyCODONE-acetaminophen (PERCOCET) 5-325 mg tabletTake 1 tablet [...] as needed for wheezing/shortness of breath. - rleueiyzde-kmtpnokr-pbrc oterol (BREZTRI) 160-9-4.8 mcg/actuation HFA aerosol inhaler [...] Disp pa (more content not included)... Normal [facility] CNPNon 08-18-2024 CNPN Normal [facility] CNPNon 08-17-2024 CNPN Normal [facility] CBC panel Auto (Bld)on 08-14 Erythrocyte distribution width (RBC) [Ratio] 14.4 % Normal 11.5-15.0 [facility] Comment on above: Order Comment: Speci men Type: BLOOD SPECIMENOrdering Facility: [facility] Address: [address] [place] [address] Performed By: #### 5 8410-2 ####[facility] LABIA [id number] [place] [address] [place] Hematocrit (Bld) [Volume fraction] 41.4 % Normal 36.0-46.0 [facility] Comment on above: Order Comment: Speci men Type: BLOOD SPECIMENOrdering Facility: [facility] Address: [address] [place] [address] Performed By: #### 5 8410-2 ####[facility] LABIA [id number] [place] [address] [place] Hemoglobin (Bld) [Mass/Vol] 13.2 g/dL Normal 11.5-15.5 [facility] Comment on above: Order Comment: Speci men Type: BLOOD SPECIMENOrdering Facility: [facility] Address: [address] [place] [address] Performed By: #### 5 8410-2 ####[facility] LABIA [id number] [place] [address] [place] MCH (RBC) [Entitic mass] 29.3 pg Normal 26.0-34.0 [facility] Comment on above: Order Comment: Speci men Type: BLOOD SPECIMENOrdering Facility: [facility] Address: [address] [place] [address] Performed By: #### 5 8410-2 ####[facility] LABIA [id number] [place] [address] [place] MCHC (RBC) [Mass/Vol] 31.9 g/dL Normal 30.5-36.0 [facility] Comment on above: Order Comment: Speci men Type: BLOOD SPECIMENOrdering Facility: [facility] Address: [address] [place] [address] Performed By: #### 5 8410-2 ####[facility] LABCLIA [id number] [place] [address] [place] MCV (RBC) [Entitic vol] 92.0 fL Normal 80.0-100.0 [facility] Comment on above: Order Comment: Speci men Type: BLOOD SPECIMENOrdering Facility: [facility] Address: [address] [place] [address] Performed By: #### 5 8410-2 ####[facility] LABCLIA [id number] [place] [address] [place] Nucleated RBC (Bld) [#/Vol] 10*3/uL Normal <0.01 [facility] Comment on above: Order Comment: Speci men Type: BLOOD SPECIMENOrdering Facility: [facility] Address: [address] [place] [address] Performed By: #### 5 8410-2 ####[facility] LABCLIA [id number] [place] [address] [place] Platelet mean volume (Bld) [Entitic vol] 10.7 fL Normal 9.0-12.7 [facility] Comment on above: Order Comment: Speci men Type: BLOOD SPECIMENOrdering Facility: [facility] Address: [address] [place] [address] Performed By: #### 5 8410-2 ####[facility] LABCLIA [id number] [place] [address] [place] Platelets (Bld) [#/Vol] 301 10*3/uL Normal 150-400 [facility] Comment on above: Order Comment: Speci men Type: BLOOD SPECIMENOrdering Facility: [facility] Address: [address] [place] [address] Performed By: #### 5 8410-2 ####[facility] LABCLIA [id number] [place] [address] [place] RBC (Bld) [#/Vol] 4.50 10*6/uL Normal 3.90-5.20 [facility] Comment on above: Order Comment: Speci men Type: BLOOD SPECIMENOrdering Facility: [facility] Address: [address] [place] [address] Performed By: #### 5 8410-2 ####[facility] LABCLIA [id number] [place] [address] [place] WBC (Bld) [#/Vol] 7.01 10*3/uL Normal 3.70-11.00 [facility] Comment on above: Order Comment: Speci men Type: BLOOD SPECIMENOrdering Facility: [facility] Address: [address] [place] [address] Performed By: #### 5 8410-2 ####[facility] LABCLIA [id number] [place] [address] [place] CNOVon 08-14-2024 CNOV Normal [facility] CNPNon 08-14-2024 CNPN Normal [facility] PT panel Coag (PPP)on 2023 INR Coag (PPP) [Relative time] 1.1 {INR} Normal 0.9-1.3 [facility] Comment on above: Order Comment: Speci men Type: BLOOD SPECIMENOrdering Facility: [facility] Address: [address] [place] [address] Result Comment: Soraida min K Antagonist (VKA) Therapeutic Range: INR 2 to 3 (Target INR of 2.5)Note: For patients treated with VKA drugs, such as warfarin, the [place] [employer] 2012 Guideline recommends [...] al. Chest 2012, 141:7S-47SNishimura RA, et al. [facility] 2017, 70: 252-289 Performed By: #### 3 4528-0 ####[facility] [id number] [place] [address] [place] PT Coag (PPP) [Time] 11.3 s Normal 9.7-13.0 [facility] Comment on above: Order Comment: Speci men Type: BLOOD SPECIMENOrdering Facility: [facility] Address: [address] [place] [address] Performed By: #### 3 4528-0 ####[facility] [id number] [place] [address] [place] XR RIBS 2V AP/OBL RTon 08-14 XR RIBS 2V AP/OBL RT Normal [facility] XR SHOULDER 2V AP/TRUE AP LT on 08-14-2024 XR SHOULDER 2V AP/TRUE AP LT Normal [facility] CNPNon 08-13-2024 CNPN Normal [facility] CNPNon 08-12-2024 CNPN Normal [facility] CNPTOUTREACHon 08-11-2024 CNPTOUTREACH Normal [facility] CNPNon 08-10-2024 CNPN Normal [facility] CASE MANAGEMon 08-09-2024 CASE MANAGEM HNO ID: [id number] Author: VANESA GUERRA RN Service: ? Author Type: Registered Nurse Type: Care Mgt Progress Note Filed: 08/09/2024 10:54 Note Text: CARE MANAGEMENT DISCHARGE NOTE SERVICE DATE: August 09, 2024 SERVICE TIME: 10:13 AM Admission Date: 08/07/2024 LOS: 0 days Discharge Arrangement Discharge Arrangement: Home with Home Health Services Arranged Medical Services: Skilled Home Health Care Type: Home Health Agency, [facility], Physical Therapy, Occupational Therapy Provider Name: [facility] Caregiver Assessment Caregiver is ready, willing and able to meet the patient's needs as recommended by the inter-professional team: Yes Name of Caregiver: Jainism friends Transportation Arrangements Transportation Arrangements: Car- Friend to transport Handoff Communication: Handoff to: Primary Care Physician Primary Care Physician Name/Phone: Dr. Leonie Peterson- [phone] Additional Information: Discharge order written for today. [facility] will be seeing the patient for [facility] services at discharge, they will notify the patient of a start of care date. Notified [facility] of the patients discharge home today. Discharge instructions sent to [employer] [facility] via [employer]. Patient states she has a portable 02 tank with her for her transport home. Discharge Information Row Name Admission (Current) from 08/07/[address] Health Care Agency [facility] SIGNATURE: Vanesa Guerra RN PATIENT NAME: Dianne Alves DATE: August 09, 2024 TIME: 10:13 AM CONTACT #: [phone] [facility] CASE MGT INIT Barbara 2023 CASE MGT INIT [facility] HNO ID: [id number] Author: VANESA GUERRA RN Service: ? Author [...] Care Advance Directives Current Advance Directive: None Millinery Department Manager Attempted to Assist with AD Completion: Yes Action: Patient Unwilling Current Living Arrangements and Support Lives with: Alone Type of Residence: Private Residence (Apartment or Condo) Does the patient have to climb stairs at home?: No Support: Jainism/karo community How do you manage to accomplish the following: Independent: Ambulation;Bathe/Shower; Dress;Meals/Meal Prep;Going to the bathroom;Medication Management Dependent: Transportation to appointments/community Current Services/Equipment Current Post-Acute Service(s): DME, Oxygen Current O2 Usage (device, rate, continuous/pulse and hrs per day): 2 LPM, continuous Current DME Type: Rollator Scooter, Cane Discharge Planning Patient Goal(s): Be able to go home, Less pain [place] of Choice Explained: [place] of Choice Given: Yes Level of Care Discussed: Home Care Are you interested in bedside delivery of your medications? No Drug [place] Discharge Planning Participant(s): Patient Patient/Family Comments: [...] an apartment with no steps, stated Independent [employer], has equipment at home but does not need to use it. Does not drive, takes a cab to her doctor appointments and mosque members take her grocery shopping. The patient has Home 02 at 2L through [employer], states has her portable tank with her for her transport home. The patient stated she wants HHC at discharge, no preference on a HHC agency. Referral placed to multiple C agencies. CM department will continue to follow for DC needs. 9:32 am- [facility] able to accept. SIGNATURE: Vanesa Guerra RN PATIENT NAME: Dianne Alves DATE: August 09, 2024 TIME: 9:11 AM CONTACT #: [phone] [facility] 08-09-2024 [facility] HNO ID: [id number] Author: DOMINICK PAYTON MD Service: Orthopaedic Surgery [...] BLOOD PRESSURE KIT 1 Each once daily. wicubiaghq-exfccerk-qzmm oterol 160-9-4.8 mcg/actuation HFA aerosol inhaler Commonly [...] Your Medications These medications were sent to [facility] [place] [address] - [address] - [phone] [address] [place] [address] docusate sodium 100 mg capsule ondansetron 4 mg tablet oxyCODONE-acetaminophen 5-325 mg tablet polyethylene glycol 3350 17 gram packet FINAL DIAGNOSIS: s/p left reverse total shoulder arthroplasty Obesity Class I (BMI 30-34.9) SIGNATURE: Dominick Payton MD PATIENT NAME: Dianne Alves DATE: August 19, 2024 TIME: 10:32 AM [facility] THERAPY NTon 08-09-2024 THERAPY NT HNO ID: [id number] Author: CHANDLER ARAIZA PT Service: Physical Therapy Author Type: Physical Therapist Type: Therapy (PT/OT/Speech/Resp) Filed: 08/09/2024 10:10 Note Text: -------- Summary: PT Evaluation -------- Physical Therapy Evaluation Summary SERVICE DATE: 08/09/2024 SERVICE TIME: 912 to 935 ROOM: [id number] PT 6 Clicks Score: 19 Total Joint [...] Other: See Comment Comments: from friends at mosque Entry To Home: No Stairs Number Of Stairs To Bed/Bath: 0 Tub/Shower Type: combo Laundry: assume self completes Equipment Owned: Rollator, Grab Bars- Shower PRIOR FUNCTIONAL LEVEL Within Functional Limits Patient reports independence with ADLs/IADLs [employer]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 - driving. Reports has 2 dogs who [...] Lord can heal her. Reports friend from mosque will drive her home today. No use of AD [employer] CONSULTANT SUBJECTIVE Pt reports, I don't want to [...] Reduced mobility-other TREATMENT INTERVENTIONS Evaluation, Gait Training (71633) Timed Code Treatment (minutes): 8 Skilled Treatment [...] allow saf (more content not included)... Normal [facility] THERAPY NT HNO ID: [id number] Author: CHANDLER ARAIZA, PT Service: Physical Therapy Author Type: Physical Therapist Type: Therapy (PT/OT/Speech/Resp) Filed: 08/09/2024 09:07 Note Text: -------- Summary: PT MV -------- PHYSICAL THERAPY MISSED VISIT SERVICE DATE: 08/09/2024 SERVICE TIME: 0900 ROOM: [place] [address] Patient not seen due to Refused Treatment. [...] DATE: August 09, 2024 TIME: 9:00 AM [facility] ANES POSTPROC EVALon 024 ANES POSTPROC EVAL HNO ID: [id number] Author: ISHAAN WALTERS MD Service: ? Author Type: Anesthesiologist Type: Anesthesia Postprocedure Evaluation Filed: 08/07/2024 16:46 Note Text: POST ANESTHESIA EVALUATION NOTE : 1955 Procedure Summary Date: 08/07/24 Room / Location: [place] [address] / [place] Anesthesia Start: 1251 Anesthesia Stop: 1422 [...] August 07, 2024 TIME: 4:46 PM CSN: [id number] [facility] ANES PRE-OPon 08-07-2024 ANES PRE-OP HNO ID: [id number] Author: ISHAAN WALTERS MD Service: ? Author Type: Anesthesiologist Type: Anesthesia Preprocedure Evaluation Filed: 08/07/2024 15:55 Note Text: ANESTHESIOLOGY DAY OF SURGERY NOTE : 1955 Procedure Information Anesthesia Start Date/Time: 08/07/24 1251 Procedure: REVERSE TOTAL SHOULDER ARTHROPLASTY (Left: Shoulder) Location: [place] / [place] Surgeons: Dominick Payton MD Estimated body [...] and consent discussed: yes. Patient / Responsible Republican agrees to proceed: yes Patient / Surrogate [...] once bobby (more content not included)... Normal [facility] CONSULTon 08-07-2024 CONSULT HNO ID: [id number] Author: TALON BRITT MD Service: General Internal Medicine Author Type: Physician Type: Consults Filed: 08/09/2024 11:03 Note Text: [facility]- Consultation DIANNE ALVES Indu : 1955 AGE: 69 SEX: F ACCTNUM: [id number] [facility]: Surgical LOCATION: [facility] ATTENDING PHYSICIAN: DOMINICK PAYTON DATE OF SERVICE: [...] the hospital. Talon Britt M.D. Internal Medicine [id number]:[id number] /[id number] [facility] HISTORY PHYSICALon HISTORY PHYSICAL HNO ID: [id number] Author: DOMINICK PAYTON MD Service: Orthopaedic Surgery Author Type: Physician Type: H&P Filed: 08/07/2024 12:48 Note Text: UPDATED HISTORY AND PHYSICAL EXAMINATION SERVICE DATE: 08/07/2024 SERVICE TIME: 12:48 PM SENSITIVE EXAMINATION CONSENT: The sensitive examination was discussed with the Patient or Patient's Authorized Supervisor [employer]. As applicable, any other physician, advance practice provider, medical student, or other health professional student that will be observing or involved in the sensitive examination for educational or training purposes was discussed with the Patient or Authorized Supervisor [employer]. The Patient or Authorized Supervisor [employer] has agreed to proceed with the sensitive [...] DATE: August 07, 2024 TIME: 12:48 PM [facility] NURSING PROGon 08-07-2024 NURSING PROG HNO ID: [id number] Author: GIA BOB RN Service: Nursing Author Type: Registered Nurse Type: Nursing Progress Note Filed: 08/07/2024 12:30 Note Text: Dr. Walters at bedside for Left interscalene nerve block. RN at bedside, pt monitored throughout, BP 152/80 Pulse 77 Temp 36.3 ?C (97.3 ?F) (Temporal Artery) Resp 18 SpO2 95% .Pt tolerated procedure without difficulty. 2mg versed given after sign in. [facility] OPERATIVE NOon 08-07-2024 OPERATIVE NO HNO ID: [id number] Author: DOMINICK PAYTON MD Service: Orthopaedic Surgery Author Type: Physician Type: Operative Report Filed: 08/07/2024 16:00 Note Text: OPERATIVE/PROCEDURE REPORT LOG ID: [id number] SURGERY/PROCEDURE DATE: 08/07/2024 INCISION/PROCEDURE START TIME: 1:23 PM INCISION CLOSE/PROCEDURE END TIME: 2:13 PM SURGEON(S)/PROCEDURALIST (S) AND MOUNTER(S): Surgeons and Role: * Dominick Payton MD - Primary Physician [employer]et [employer]: Ana Holder PA-C; Yue Franks PA-C SURGERY/PROCEDURE(S): [...] The humeral metaphysis was reamed using the [employer] reamer. Then the canal was sized and [...] placed and (more content not included)... Normal [facility] XR SHOULDER SPECIFY 1V LTon 08-07-2024 [...] as discussed in results portion of report Chief Ii Dispatcher: VINCENT Transcribe Date/Time: Aug 07 2024 4:37P Dictated by : GELA CAMARGO DO This examination was interpreted and the report reviewed and electronically signed by: GELA CAMARGO DO on Aug 07 2024 4:38PM EST [id number] Normal [facility] CNOVon 07-31-2024 CNOV Normal [facility] ECG COMPLETEon 07-31-2024 ECG COMPLETE Normal [facility] CNOVon 07-29-2024 CNOV Normal [facility] CNPNon 07-27-2024 CNPN Normal [facility] CNPTOUTREACHon 07-24-2024 CNPTOUTREACH Normal [facility] CBC W Auto Differential pane l (Bld)on 07-22-2024 Basophils (Bld) [#/Vol] 0.04 10*3/uL Normal <0.11 [facility] Comment on above: Order Comment: Speci men Type: BLOOD SPECIMENOrdering Facility: [facility] Address: [address] [place] [address] Performed By: #### 5 7021-8 ####[facility] [id number] [place] [address] [place] Basophils/100 WBC (Bld) 0.7 % Normal [facility] Comment on above: Order Comment: Speci men Type: BLOOD SPECIMENOrdering Facility: [facility] Address: [address] [place] [address] Performed By: #### 5 7021-8 ####[facility] [id number] [place] [address] [place] Differential cell count method Nom (Bld) Auto Normal [facility] Comment on above: Order Comment: Speci men Type: BLOOD SPECIMENOrdering Facility: [facility] Address: [address] [place] [address] Performed By: #### 5 7021-8 ####[facility] [id number] [place] [address] [place] Eosinophils (Bld) [#/Vol] 0.18 10*3/uL Normal <0.46 [facility] Comment on above: Order Comment: Speci men Type: BLOOD SPECIMENOrdering Facility: [facility] Address: [address] [place] [address] Performed By: #### 5 7021-8 ####[facility] [id number] [place] [address] [place] Eosinophils/100 WBC (Bld) 3.3 % Normal [facility] Comment on above: Order Comment: Speci men Type: BLOOD SPECIMENOrdering Facility: [facility] Address: [address] [place] [address] Performed By: #### 5 7021-8 ####[facility] [id number] [place] [address] [place] Erythrocyte distribution width (RBC) [Ratio] 14.9 % Normal 11.5-15.0 [facility] Comment on above: Order Comment: Speci men Type: BLOOD SPECIMENOrdering Facility: [facility] Address: [address] [place] [address] Performed By: #### 5 7021-8 ####[facility] ERWNCLIA [id number] [place] [address] [place] Hematocrit (Bld) [Volume fraction] 44.6 % Normal 36.0-46.0 [facility] Comment on above: Order Comment: Speci men Type: BLOOD SPECIMENOrdering Facility: [facility] Address: [address] [place] [address] Performed By: #### 5 7021-8 ####[facility] [id number] [place] [address] [place] Hemoglobin (Bld) [Mass/Vol] 14.6 g/dL Normal 11.5-15.5 [facility] Comment on above: Order Comment: Speci men Type: BLOOD SPECIMENOrdering Facility: [facility] Address: [address] [place] [address] Performed By: #### 5 7021-8 ####[facility] [id number] [place] [address] [place] Immature granulocytes (Bld) [#/Vol] 10*3/uL Normal <0.10 [facility] Comment on above: Order Comment: Speci men Type: BLOOD SPECIMENOrdering Facility: [facility] Address: [address] [place] [address] Performed By: #### 5 7021-8 ####[facility] [id number] [address] [place] Immature granulocytes/100 WBC (Bld) 0.0 % Normal [facility] Comment on above: Order Comment: Speci men Type: BLOOD SPECIMENOrdering Facility: [facility] Address: [address] [place] [address] Performed By: #### 5 7021-8 ####[facility] [id number] [place] [address] [place] Lymphocytes (Bld) [#/Vol] 1.64 10*3/uL Normal 1.00-4.00 [facility] Comment on above: Order Comment: Speci men Type: BLOOD SPECIMENOrdering Facility: [facility] Address: [address] [place] [address] Performed By: #### 5 7021-8 ####[facility] [id number] [place] [address] [place] Lymphocytes/100 WBC (Bld) 30.4 % Normal [facility] Comment on above: Order Comment: Speci men Type: BLOOD SPECIMENOrdering Facility: [facility] Address: [address] [place] [address] Performed By: #### 5 7021-8 ####[facility] [id number] [place] [address] [place] MCH (RBC) [Entitic mass] 29.6 pg Normal 26.0-34.0 [facility] Comment on above: Order Comment: Speci men Type: BLOOD SPECIMENOrdering Facility: [facility] Address: [address] [place] [address] Performed By: #### 5 7021-8 ####[facility] [id number] [place] [address] [place] MCHC (RBC) [Mass/Vol] 32.7 g/dL Normal 30.5-36.0 [facility] Comment on above: Order Comment: Speci men Type: BLOOD SPECIMENOrdering Facility: [facility] Address: [address] [place] [address] Performed By: #### 5 7021-8 ####[facility] [id number] [place] [address] [place] MCV (RBC) [Entitic vol] 90.5 fL Normal 80.0-100.0 [facility] Comment on above: Order Comment: Speci men Type: BLOOD SPECIMENOrdering Facility: [facility] Address: [address] [place] [address] Performed By: #### 5 7021-8 ####[facility] TASHBEVERLY [id number] [place] [address] [place] Monocytes (Bld) [#/Vol] 0.27 10*3/uL Normal <0.87 [facility] Comment on above: Order Comment: Speci men Type: BLOOD SPECIMENOrdering Facility: [facility] Address: [address] [place] [address] Performed By: #### 5 7021-8 ####[facility] [id number] [place] [address] [place] Monocytes/100 WBC (Bld) 5.0 % Normal [facility] Comment on above: Order Comment: Speci men Type: BLOOD SPECIMENOrdering Facility: [facility] Address: [address] [place] [address] Performed By: #### 5 7021-8 ####[facility] [id number] [place] [address] [place] Neutrophils (Bld) [#/Vol] 3.26 10*3/uL Normal 1.45-7.50 [facility] Comment on above: Order Comment: Speci men Type: BLOOD SPECIMENOrdering Facility: [facility] Address: [address] [place] [address] Performed By: #### 5 7021-8 ####[facility] [id number] [place] [address] [place] Neutrophils/100 WBC (Bld) 60.6 % Normal [facility] Comment on above: Order Comment: Speci men Type: BLOOD SPECIMENOrdering Facility: [facility] Address: [address] [place] [address] Performed By: #### 5 7021-8 ####[facility] ERWKARYNLIA [id number] [place] [address] [place] Nucleated RBC (Bld) [#/Vol] 10*3/uL Normal <0.01 [facility] Comment on above: Order Comment: Speci men Type: BLOOD SPECIMENOrdering Facility: [facility] Address: [address] [place] [address] Performed By: #### 5 7021-8 ####[facility] [id number] [place] [address] [place] Nucleated RBC/100 WBC (Bld) [Ratio] 0.0 /100 WBC Normal [facility] Comment on above: Order Comment: Speci men Type: BLOOD SPECIMENOrdering Facility: [facility] Address: [address] [place] [address] Performed By: #### 5 7021-8 ####[facility] [id number] [place] [address] [place] Platelet mean volume (Bld) [Entitic vol] 10.4 fL Normal 9.0-12.7 [facility] Comment on above: Order Comment: Speci men Type: BLOOD SPECIMENOrdering Facility: [facility] Address: [address] [place] [address] Performed By: #### 5 7021-8 ####[facility] [id number] [place] [address] [place] Platelets (Bld) [#/Vol] 236 10*3/uL Normal 150-400 [facility] Comment on above: Order Comment: Speci men Type: BLOOD SPECIMENOrdering Facility: [facility] Address: [address] [place] [address] Performed By: #### 5 7021-8 ####[facility] [id number] [place] [address] [place] RBC (Bld) [#/Vol] 4.93 10*6/uL Normal 3.90-5.20 [facility] Comment on above: Order Comment: Speci men Type: BLOOD SPECIMENOrdering Facility: [facility] Address: [address] [place] [address] Performed By: #### 5 7021-8 ####[facility] ROOMMorgan [id number] [place] [address] [place] WBC (Bld) [#/Vol] 5.39 10*3/uL Normal 3.70-11.00 [facility] Comment on above: Order Comment: Speci men Type: BLOOD SPECIMENOrdering Facility: [facility] Address: [address] [place] [address] Performed By: #### 5 7021-8 ####[facility] [id number] [place] [address] [place] Comprehensive metabolic 2000 panelon 07-22-2024 Albumin [Mass/Vol] 4.3 g/dL Normal 3.9-4.9 [facility] Comment on above: Order Comment: Speci men Type: BLOOD SPECIMENOrdering Facility: [facility] Address: [address] [place] [address] Performed By: #### 2 4323-8 ####[facility] LABCLIA [id number] [place] [address] [place] ALP [Catalytic activity/Vol] 87 U/L Normal 34-123 [facility] Comment on above: Order Comment: Speci men Type: BLOOD SPECIMENOrdering Facility: [facility] Address: [address] [place] [address] Performed By: #### 2 4323-8 ####[facility] LABCLIA [id number] [place] [address] [place] ALT [Catalytic activity/Vol] 10 U/L Normal 7-38 [facility] Comment on above: Order Comment: Speci men Type: BLOOD SPECIMENOrdering Facility: [facility] Address: [address] [place] [address] Performed By: #### 2 4323-8 ####[facility] LABCLIA [id number] [place] [id number] [place] Anion gap [Moles/Vol] 13 mmol/L Normal 8-15 [facility] Comment on above: Order Comment: Speci men Type: BLOOD SPECIMENOrdering Facility: [facility] Address: [address] [place] [address] Performed By: #### 2 4323-8 ####[facility] LABCLIA [id number] [place] [address] [place] AST [Catalytic activity/Vol] 18 U/L Normal 13-35 [facility] Comment on above: Order Comment: Speci men Type: BLOOD SPECIMENOrdering Facility: [facility] Address: [address] [place] [address] Performed By: #### 2 4323-8 ####[facility] LABCLIA [id number] [place] [address] [place] Bilirubin [Mass/Vol] 0.5 mg/dL Normal 0.2-1.3 [facility] Comment on above: Order Comment: Speci men Type: BLOOD SPECIMENOrdering Facility: [facility] Address: [address] [place] [address] Performed By: #### 2 4323-8 ####[facility] LABCLIA [id number] [place] [address] [place] Calcium [Mass/Vol] 10.0 mg/dL Normal 8.5-10.2 [facility] Comment on above: Order Comment: Speci men Type: BLOOD SPECIMENOrdering Facility: [facility] Address: [address] [place] [address] Performed By: #### 2 4323-8 ####[facility] LABCLIA [id number] [place] [address] [place] Chloride [Moles/Vol] 103 mmol/L Normal 98-107 [facility] Comment on above: Order Comment: Speci men Type: BLOOD SPECIMENOrdering Facility: [facility] Address: [address] [place] [address] Performed By: #### 2 4323-8 ####[facility] LABCLIA [id number] [place] [address] [place] CO2 [Moles/Vol] 23 mmol/L Normal 22-30 [facility] Comment on above: Order Comment: Speci men Type: BLOOD SPECIMENOrdering Facility: [facility] Address: [address] [place] [address] Performed By: #### 2 4323-8 ####[facility] LABIA [id number] [place] [address] [place] Creatinine [Mass/Vol] 0.97 mg/dL High 0.58-0.96 [facility] Comment on above: Order Comment: Speci men Type: BLOOD SPECIMENOrdering Facility: [facility] Address: [address] [place] [address] Performed By: #### 2 4323-8 ####[facility] LABIA [id number] [address] [place] Creatinine and Glomerular filtration rate.predicted panel (S/P/Bld) 64 mL/min/1.73m??? Normal >=60 [facility] Comment on above: Order Comment: Speci men Type: BLOOD SPECIMENOrdering Facility: [facility] Address: [address] [place] [address] Result Comment: Sigrid mated Glomerular Filtration Rate [...] actual GFR. Performed By: #### 2 4323-8 ####[facility] LABIA [id number] [place] [address] [place] Glucose [Mass/Vol] 118 mg/dL High 74-99 [facility] Comment on above: Order Comment: Jalen men Type: BLOOD SPECIMENOrdering Facility: [facility] Address: [address] [place] [address] Result Comment: The [place] [employer] Association (ADA) provides guidance for cutoff [...] Standards of Medical Care in Diabetes 2016, [place] [employer]. Diabetes Care. 2016.39(Suppl 1). Performed By: #### 2 4323-8 ####[facility] LABIA [id number] [place] [address] [place] Potassium [Moles/Vol] 4.3 mmol/L Normal 3.7-5.1 [facility] Comment on above: Order Comment: Wmi men Type: BLOOD SPECIMENOrdering Facility: [facility] Address: [address] [place] [address] Performed By: #### 2 4323-8 ####[facility] LABIA [id number] [place] [address] [place] Protein [Mass/Vol] 7.1 g/dL Normal 6.3-8.0 [facility] Comment on above: Order Comment: Jalen men Type: BLOOD SPECIMENOrdering Facility: [facility] Address: [address] [place] [address] Performed By: #### 2 4323-8 ####[facility] LABCLIA [id number] [place] [address] [place] Sodium [Moles/Vol] 139 mmol/L Normal 136-144 [facility] Comment on above: Order Comment: Speci men Type: BLOOD SPECIMENOrdering Facility: [facility] Address: [address] [place] [address] Performed By: #### 2 4323-8 ####[facility] LABCLIA [id number] [place] [address] [place] Urea nitrogen [Mass/Vol] 14 mg/dL Normal 7-21 [facility] Comment on above: Order Comment: Speci men Type: BLOOD SPECIMENOrdering Facility: [facility] Address: [address] [place] [address] Performed By: #### 2 4323-8 ####[facility] LABCLIA [id number] [place] [address] [place] HISTORY PHYSICALon HISTORY PHYSICAL Normal [facility] T3 SerPl-mCncon 07-22-2024 T3 [Mass/Vol] 95 ng/dL Normal 79-165 [facility] Comment on above: Order Comment: Speci men Type: BLOOD SPECIMENOrdering Facility: [facility] Address: [address] [place] [address] Performed By: #### 3 024-7, 3053-6, 3016-3 ####[facility] LABIA [id number] [place] [address] [place] T4 Free SerPl-mCncon 024 Free T4 [Mass/Vol] 1.3 ng/dL Normal 0.9-1.7 [facility] Comment on above: Order Comment: Speci men Type: BLOOD SPECIMENOrdering Facility: [facility] Address: [address] [place] [address] Performed By: #### 3 024-7, 3053-6, 3016-3 ####[facility] LABCLIA [id number] [place] [address] [place] TSH SerPl-aCncon 07-22-2024 TSH Qn 0.183 m[IU]/L Low 0.270-4.200 [facility] Comment on above: Order Comment: Speci men Type: BLOOD SPECIMENOrdering Facility: [facility] Address: [address] [place] [address] Performed By: #### 3 024-7, 3053-6, 3016-3 ####[facility] LABCLIA [id number] [address] [place] CNOVon 07-21-2024 CNOV Normal [facility] PVR ANK PRESS ARTEM VAS LABon 07-21-2024 PVR ANK PRESS ARTEM VAS LAB Normal [facility] CNCOon 06-24-2024 CNCO Letter Text Normal [facility] CNOVon 06-23-2024 CNOV Office Visit (AGHWW1 ) -------- DIANNE ALVES ([id number]) 1955 F Date Time Provider Department 06/23/24 [...] AND Elbow Surgeon Department of Orthopaedic Surgery [facility] Referring Provider: SELF [200] Allergies As [...] g to (more content not included)... Normal [facility] Colonoscopy Reporton 024 Colonoscopy Report [facility] Medical Records Department [address] [facility] [address] Colonoscopy Report MR#: [id number] Acct: [id number] Name: DIANNE ALVES Rep #: [id number] : 1955 69 From: Stef Friend DO PCP: Dr. Leonie Peterson MD Status:[facility] Patient Name: Dianne Alves Procedure Date: [...] for surveillance. Procedure Code(s): --- Professional --- 57891, Colonoscopy, flexible; with removal of tumor(s), polyp(s), or other lesion(s) by snare technique 29028, 59, Colonoscopy, flexible; with biopsy, single or multiple CPT copyright 2021 [employer]. All rights reserved. The codes documented in this report are preliminary and upon parachute folder review may be revised to meet current compliance requirements. Stef Bennett DO 04/29/2024 11:15:46 AM This report has been signed electronically. Number of Addenda: 0 Note Initiated On: (more content not included)... Normal [facility] MR/POSTOP.Jay [place] 04-29-2024 MR/POSTOP.[facility] Medical Records Department [address] [place] [address] Anesthesia Postop Eval I 04/29/24 1115 MR#: [id number] Acct: [id number] Name: DIANNE ALVES Rep #: [id number] : 1955 69 From: Juancarlos Bernardo PCP: Dr. Leonie Peterson MD Status:REG SDC Y Race: AA Location: [place] [address] Anesthesia: Postop Eval I Current Vital Signs [...] Juancarlos Quinn Signature: Date CC: Signed Normal [facility] MR/[id number] 04-29-2024 /[facility] Medical Records Department [address] [place] [address] Anesthesia Postop Eval II 04/29/24 1143 MR#: [id number] Acct: [id number] Name: DIANNE ALVES Rep #: [id number] : 1955 69 From: Robert Smith MD PCP: Dr. Leonie Peterson MD Status:REG [facility] Y Race: AA Location: [place] [address] Anesthesia Postop Eval I Sum Postop Eval [...] Robert Quinn Signature: Date CC: Signed Normal [facility] Surgery Specimen Level Keren 04-29-2024 Surgery Specimen Level IV Patient Age/Sex Location Account Attending Physician DIANNE ALVES 69/F EN [id number] Stef Bennett DO Specimen: [id number] Received: 04/29/24 Status: GREGORY Saldaña Num: [id number] Spec Type: COLON BX Subm Dr: Stef [...] cassette. AM/ 04/29/2024 TC:5 AM/ 04/29/2024 TC: CPT:90680s6 Patient Age/Sex Location Account Attending Physician DIANNE ALVES 69/F EN [id number] Stef Bennett DO Signed (signature on file) Dr. Chencho Barrientos DO 04/30/24 1134 Normal [facility] Comment on above: Performed By: #### P SABINE ####[facility] [id number] [place], [place], [id number] [place] 03-24-2024 CNOV Office Visit (AGHWW1 ) -------- LONGDIANNE CASTREJON ([id number]) 1955 F Date Time Provider Department 03/24/24 [...] AND Elbow Surgeon Department of Orthopaedic Surgery [facility] Referring Provider: SELF [200] Allergies As of Date: 03/24/2024 (No Known Allergies) Date Reviewed: 03/24/2024 Reviewed by: Lynne Peña LPN - Fully Assessed Reason for Visit: Follow Up [171] Pain [78] Injections [199] Primary Visit Diagnosis:Left shoulder pain, unspecified chronicity [M25.512] Other Visit Diagnosis:Failure of rotator cuff repair [M96.89] Order(s):Large Joint Arthro/Inj: L shoulder joint [[id number]] Order #: [id number] [] bupivacaine (PF) 0.25 % (2.5 mg/mL) [...] pads 2-3x daily for urge incontinence - ugrxmedwwr-mvzyiojg-phiw oterol (BREZTRI) 160-9-4.8 mcg/actuation HFA aerosol inhaler [...] without sciatic*05/03/2021 (more content not included)... Normal [facility] CNOVon 12-17-2023 CNOV Office Visit (AGHWW1 ) -------- DIANNE ALVES ([id number]) 1955 F Date Time Provider Department 12/17/23 [...] AND Elbow Surgeon Department of Orthopaedic Surgery [facility] Allergies As of Date: 12/17/2023 (No Known Allergies) Date Reviewed: 12/17/2023 Reviewed by: Shady Tamayo Tech - Fully Assessed Reason for Visit: Follow Up [171] Primary Visit Diagnosis:Failure of rotator cuff repair [M96.89] Other Visit Diagnosis:Left shoulder pain, unspecified chronicity [M25.512] Order(s):Large Joint Arthro/Inj: L shoulder joint [[id number]] Order #: [id number] [] bupivacaine (PF) 0.25 % (2.5 mg/mL) [...] mouth once daily. Take with food. - wcyaghncua-ioagbvnz-lqqr oterol (BREZTRI) 160-9-4.8 mcg/actuation HFA aerosol inhaler [...] Weakness [R53. (more content not included)... Normal [facility] Absolute lymphocyte countOrd ered By: Debbie Delgadillo on 11-21-2023 Lymphocytes Auto (Unsp spec) [#/Vol] 2.03 10*3/uL 0.83-4.51 [facility] Automated lymphocyte count a s percentage of total leukocytesOrdered By: Debbie Delgadillo on 11-21-2023 Lymphocytes/100 WBC Auto (Unsp spec) 26.8 % 19-41 [facility] Basophil percentageOrdered B y: Debbie Delgadillo on 11-21-2023 Basophil percentage 0-5 SEEN /hpf 0-5 [facility] Basophils/100 WBC (Bld) 0.5 % 0-1 [facility] Bilirubin [Mass/Vol] 0.70 mg/dL 0.20-1.00 [facility] Comment on above: For patients on eltr ombopag therapy, use of Dimension [place] TBIL is not recommended. Chloride [Moles/Vol] 112 mmol/L 98-107 [facility] Eosinophils/100 WBC (Bld) 0.5 % 0-5 [facility] Glucose [Mass/Vol] 97 mg/dL 74-106 [facility] Hemoglobin (Bld) [Mass/Vol] 15.8 g/dL 12.0-15.0 [facility] Monocytes/100 WBC (Bld) 7.3 % 0-10 [facility] Neutrophils (Bld) [#/Vol] 4.9 10*3/uL 2.0-7.7 [facility] Neutrophils/100 WBC (Bld) 64.6 % 47-70 [facility] Potassium [Moles/Vol] 4.0 mmol/L 3.5-5.1 [facility] Comment on above: Slight Hemolysis, Re sult may be falsely increased. Protein [Mass/Vol] 7.4 g/dL 6.4-8.2 [facility] Sodium [Moles/Vol] 138 mmol/L 136-145 [facility] WBC (Bld) [#/Vol] 7.6 10*3/uL 4.4-11.0 [facility] Bilirubin Test strip Ql (U)O rdered By: Debbie Delgadillo on 11-21-2023 Bilirubin Ql (U) Negative Negative [facility] Determination of erythrocyte mean corpuscular volume (MCV)Ordered By: Debbie Delgadillo on 11-21-2023 MCV (RBC) [Entitic vol] 88.4 fL 81-99 [facility] Direct bilirubinOrdered By: Debbie Delgadillo on 11-21-2023 Bilirubin.direct [Mass/Vol] 0.14 mg/dL 0.00-0.30 [facility] Erythrocyte distribution wid th ratioOrdered By: Debbie Delgadillo on 11-21-2023 Erythrocyte distribution width (RBC) [Ratio] 13.3 % 11.6-14.6 [facility] Erythrocyte distribution wid th standard deviationOrdered By: Debbie Delgadillo on 11-21-2023 Erythrocyte distribution width (RBC) [Entitic vol] 43.2 fL 35.1-43.9 [facility] Hematocrit Auto (Bld) [Volum e fraction]Ordered By: Debbie Delgadillo on 11-21-2023 Hematocrit (Bld) [Volume fraction] 49.6 % 37-47 [facility] Immature granulocytes/100 WB C Auto (Bld)Ordered By: Debbie Delgadillo on 11-21-2023 Immature granulocytes/100 WBC (Bld) 0.300 % 0.0-0.9 [facility] Comment on above: IG% - Immature Granu locytes (promyelocytes, myelocytes and metamyelocytes) > 1% indicates that a LEFT SHIFT is Present. Ketones Test strip Ql (U)Ord ered By: Debbie Delgadillo on 11-21-2023 Ketones Ql (U) 15 mg/dl Negative [facility] Laboratory - Chemistry and C hemistry - challengeOrdered By: Debbie Delgadillo on 11-21-2023 ALP [Catalytic activity/Vol] 88 U/L 45-117 [facility] ALT [Catalytic activity/Vol] 26 U/L 13-56 [facility] CO2 [Moles/Vol] 23.0 mmol/L 21.0-32.0 [facility] Globulin (S) [Mass/Vol] 3.7 g/dL 2.2-4.2 [facility] Urea nitrogen/Creatinine [Mass ratio] 19.4 mg/mg 10-20 [facility] Laboratory - Hematology and Cell countsOrdered By: Debbie Delgadillo on 11-21-2023 MCH (RBC) [Entitic mass] 28.2 pg 27.0-32.0 [facility] MCHC (RBC) [Mass/Vol] 31.9 g/dL 32-36 [facility] Nucleated RBC/100 WBC (Bld) [Ratio] 0 % 0-5 [facility] Platelet mean volume (Bld) [Entitic vol] 10.5 fL 6.2-12.0 [facility] Platelets (Bld) [#/Vol] 196 10*3/uL 150-450 [facility] Mucus LM Ql (Urine sed)Order ed By: Debbie Delgadillo on 11-21-2023 Mucus Ql (Urine sed) 0 SEEN /hpf [facility] Nitrite Test strip Ql (U)Ord ered By: Debbie Delgadillo on 11-21-2023 Nitrite Ql (U) Negative Negative [facility] No Panel InformationOrdered By: Debbie Delgadillo on 11-21-2023 Troponin I High Sensitivity 64 pg/mL 3.0-54.0 [facility] Comment on above: Please Note: New Fina t Units and Gender Specific Reference Ranges. For more information see Policy Stat Procedure [place] High Sensitivity Troponin (TNIH) and attachments. Urine RBC 0 SEEN /hpf 0-5 [facility] Estimated Creatinine Clearance Calc 64.92 ml/min [facility] Estimated GFR (MDRD) Amer 73 mL/min >60 [facility] Comment on above: GFR Calc Estimated GFR (MDRD) Non-Af Amer 60 mL/min >60 [facility] Comment on above: Non- GFR Calc Protein Test strip Ql (U)Ord ered By: Debbie Delgadillo on 11-21-2023 Protein Ql (U) 30 mg/dl Negative [facility] RBC Auto (Bld) [#/Vol]Ordere d By: Debbie Delgadillo on 11-21-2023 RBC (Bld) [#/Vol] 5.61 10*6/uL 4.2-5.4 [facility] Serum or plasma calcium margarita urement (mass/volume)Ordered By: Debbie Delgadillo on 11-21-2023 Calcium [Mass/Vol] 9.7 mg/dL 8.5-10.1 [facility] Serum or plasma creatinine m easurement (mass/volume)Ordered By: Debbie Delgadillo on 11-21-2023 Creatinine [Mass/Vol] 0.98 mg/dL 0.55-1.02 [facility] Comment on above: The validity of the calculated GFR & GFRAA in patients over 70 years has not been determined. Clinical correlation is essential. Serum or plasma urea nitroge n measurement (mass/volume)Ordered By: Debbie Delgadillo on 11-21-2023 Urea nitrogen [Mass/Vol] 19 mg/dL 7-18 [facility] Squamous epithelial cells de tection in urine sediment by light microscopyOrdered By: Debbie Delgadillo on 11-21-2023 Epithelial cells.squamous LM Ql (Urine sed) 0 SEEN /hpf 5-10 [facility] Thin prep Papanicolaou smear with manual screeningOrdered By: Debbie Delgadillo on 11-21-2023 Thin prep Papanicolaou smear with manual screening 3.7 g/dL 3.2-5.0 [facility] Thin prep Papanicolaou smear with manual screening 17 U/L 15-37 [facility] Comment on above: Slight Hemolysis, Re sult may be falsely increased. Thin prep Papanicolaou smear with manual screening 3 5-15 [facility] Urine blood detectionOrdered By: Debbie Delgadillo on 11-21-2023 RBC Ql (U) Negative Negative [facility] Urine clarityOrdered By: Milla Delgadillo on 11-21-2023 Clarity (U) Clear Clear [facility] Urine color determinationOrd ered By: Debbie Delgadillo on 11-21-2023 Color (U) Yellow Yellow [facility] Urine glucose detectionOrder ed By: Debbie Delgadillo on 11-21-2023 Glucose Ql (U) Normal mg/dl Normal [facility] Urine leukocyte esterase det ection by dipstickOrdered By: Debbie Delgadillo on 11-21-2023 Leukocyte esterase Test strip Ql (U) 25 /ul Negative [facility] Urine pHOrdered By: Debbie Delgadillo on 11-21-2023 pH (U) 6.0 [pH] 5.0 - 8.0 [facility] Urine sediment bacteria coun t by microscopy (number/high power field)Ordered By: Debbie Delgadillo on 11-21-2023 Bacteria LM.HPF (Urine sed) [#/Area] 0 /[HPF] None Seen [facility] Urine specific gravity measu rementOrdered By: Debbie Delgadillo on 11-21-2023 Specific gravity (U) [Rel density] 1.020 1.002-1.030 [facility] Urine urobilinogen measureme ntOrdered By: Debbie Delgadillo on 11-21-2023 Urobilinogen Ql (U) Normal mg/dl Normal [facility] CNOVon 11-05-2023 CNOV Office Visit (AGHWW1 ) -------- DIANNE ALVES ([id number]) 1955 F Date Time Provider Department 11/05/23 [...] AND Elbow Surgeon Department of Orthopaedic Surgery [facility] Lynne Peña LPN 11/13/2023 1:13 PM [...] [M19.212] Order(s):Large Joint Arthro/Inj: L shoulder joint [[id number]] Order #: [id number] [] bupivacaine (PF) 0.25 % (2.5 mg/mL) [...] capsule by (more content not included)... Normal [facility] Basophil percentageOrdered B y: Aquiles Jones on 08-13-2023 Chloride [Moles/Vol] 101 mmol/L 98-107 [facility] Glucose [Mass/Vol] 119 mg/dL 74-106 [facility] Comment on above: Fasting Glucose resu lt from 100 to 125 mg/dL suggests IMPAIRED HOMEOSTASIS per A.D.A. criteria. Potassium [Moles/Vol] 4.8 mmol/L 3.5-5.1 [facility] Sodium [Moles/Vol] 135 mmol/L 136-145 [facility] WBC (Bld) [#/Vol] 6.6 10*3/uL 4.4-11.0 [facility] Blood erythrocytes count (nu mber/volume)Ordered By: Aquiles Jones on 08-13-2023 RBC (Bld) [#/Vol] 4.61 10*6/uL 4.2-5.4 [facility] Blood hemoglobin measurement (mass/volume)Ordered By: Aquiles Jones on 08-13-2023 Hemoglobin (Bld) [Mass/Vol] 13.5 g/dL 12.0-15.0 [facility] Blood platelet mean volumeOr dered By: Aquiles Jones on 08-13-2023 Platelet mean volume (Bld) [Entitic vol] 10.8 fL 6.2-12.0 [facility] Determination of erythrocyte mean corpuscular volume (MCV)Ordered By: Aquiles Jones on 08-13-2023 MCV (RBC) [Entitic vol] 93.3 fL 81-99 [facility] Hematocrit Auto (Bld) [Volum e fraction]Ordered By: Aquiles Jones on 08-13-2023 Hematocrit (Bld) [Volume fraction] 43.0 % 37-47 [facility] Laboratory - Chemistry and C hemistry - challengeOrdered By: Aquiles Jones on 08-13-2023 CO2 [Moles/Vol] 27.0 mmol/L 21.0-32.0 [facility] Urea nitrogen/Creatinine [Mass ratio] 21.5 mg/mg 10-20 [facility] - Hematology and Cell countsOrdered By: Aquiles Jones on 08-13-2023 Erythrocyte distribution width (RBC) [Entitic vol] 52.2 fL 35.1-43.9 [facility] Erythrocyte distribution width (RBC) [Ratio] 15.0 % 11.6-14.6 [facility] MCH (RBC) [Entitic mass] 29.3 pg 27.0-32.0 [facility] MCHC Auto (RBC) [Mass/Vol]Or dered By: Aquiles Jones on 08-13-2023 MCHC (RBC) [Mass/Vol] 31.4 g/dL 32-36 [facility] No Panel InformationOrdered By: Aquiles Jones on 08-13-2023 Estimated GFR (MDRD) Amer 57 mL/min >60 [facility] Comment on above: GFR Calc Estimated GFR (MDRD) Non-Af Amer 47 mL/min >60 [facility] Comment on above: Non- GFR Calc Platelets bldOrdered By: Erika Jones on 08-13-2023 Platelets (Bld) [#/Vol] 304 10*3/uL 150-450 [facility] Serum or plasma calcium margarita urement (mass/volume)Ordered By: Aquiles Jones on 08-13-2023 Calcium [Mass/Vol] 9.4 mg/dL 8.5-10.1 [facility] Serum or plasma creatinine m easurement (mass/volume)Ordered By: Aquiles Jones on 08-13-2023 Creatinine [Mass/Vol] 1.21 mg/dL 0.55-1.02 [facility] Comment on above: The validity of the calculated GFR & GFRAA in patients over 70 years has not been determined. Clinical correlation is essential. Serum or plasma urea nitroge n measurement (mass/volume)Ordered By: Aquiles Jones on 08-13-2023 Urea nitrogen [Mass/Vol] 26 mg/dL 7-18 [facility] Thin prep Papanicolaou smear with manual screeningOrdered By: Aquiles Jones on 08-13-2023 Thin prep Papanicolaou smear with manual screening 7 5-15 [facility] Basophil percentageOrdered B y: Shady Burris on 08-12-2023 Chloride [Moles/Vol] 102 mmol/L 98-107 [facility] Glucose [Mass/Vol] 148 mg/dL 74-106 [facility] Comment on above: Fasting Glucose resu lt greater than or equal to 126 mg/dL suggests DIABETES MELLITUS per A.D.A. criteria. Potassium [Moles/Vol] 5.1 mmol/L 3.5-5.1 [facility] Sodium [Moles/Vol] 138 mmol/L 136-145 [facility] Laboratory - Chemistry and C hemistry - challengeOrdered By: Shady Burris on 08-12-2023 CO2 [Moles/Vol] 31.0 mmol/L 21.0-32.0 [facility] Urea nitrogen/Creatinine [Mass ratio] 22.1 mg/mg 10-20 [facility] No Panel InformationOrdered By: Shady Burris on 08-12-2023 Estimated Creatinine Clearance Calc 37.58 ml/min [facility] Estimated GFR (MDRD) Amer 50 mL/min >60 [facility] Comment on above: GFR Calc Estimated GFR (MDRD) Non-Af Amer 41 mL/min >60 [facility] Comment on above: Non- GFR Calc Serum or plasma calcium margarita urement (mass/volume)Ordered By: Shady Burris on 08-12-2023 Calcium [Mass/Vol] 9.0 mg/dL 8.5-10.1 [facility] Serum or plasma creatinine m easurement (mass/volume)Ordered By: Shady Burris on 08-12-2023 Creatinine [Mass/Vol] 1.36 mg/dL 0.55-1.02 [facility] Comment on above: The validity of the calculated GFR & GFRAA in patients over 70 years has not been determined. Clinical correlation is essential. Serum or plasma urea nitroge n measurement (mass/volume)Ordered By: Shady Burris on 08-12-2023 Urea nitrogen [Mass/Vol] 30 mg/dL 7-18 [facility] Thin prep Papanicolaou smear with manual screeningOrdered By: Shady Burris on 08-12-2023 Thin prep Papanicolaou smear with manual screening 5 5-15 [facility] Absolute lymphocyte countOrd ered By: Julio Duong on 08-11-2023 Lymphocytes Auto (Unsp spec) [#/Vol] 2.50 10*3/uL 0.83-4.51 [facility] Basophil percentageOrdered B y: Julio Duong on 08-11-2023 Basophils/100 WBC (Bld) 0.7 % 0-1 [facility] Eosinophils/100 WBC (Bld) 6.7 % 0-5 [facility] Neutrophils (Bld) [#/Vol] 2.3 10*3/uL 2.0-7.7 [facility] Neutrophils/100 WBC (Bld) 40.1 % 47-70 [facility] WBC (Bld) [#/Vol] 5.7 10*3/uL 4.4-11.0 [facility] Blood erythrocytes count (nu mber/volume)Ordered By: Julio Duong on 08-11-2023 RBC (Bld) [#/Vol] 4.50 10*6/uL 4.2-5.4 [facility] Blood hemoglobin measurement (mass/volume)Ordered By: Julio Duong on 08-11-2023 Hemoglobin (Bld) [Mass/Vol] 12.9 g/dL 12.0-15.0 [facility] Blood lymphocytes/100 leukoc ytesOrdered By: Julio Duong on 08-11-2023 Lymphocytes/100 WBC (Bld) 44.2 % 19-41 [facility] Blood monocytes/100 leukocyt esOrdered By: Julio Duong on 08-11-2023 Monocytes/100 WBC (Bld) 8.1 % 0-10 [facility] Blood platelet mean volumeOr dered By: Julio Duong on 08-11-2023 Platelet mean volume (Bld) [Entitic vol] 10.2 fL 6.2-12.0 [facility] Determination of erythrocyte mean corpuscular volume (MCV)Ordered By: Julio Duong on 08-11-2023 MCV (RBC) [Entitic vol] 91.8 fL 81-99 [facility] Hematocrit Auto (Bld) [Volum e fraction]Ordered By: Julio Duong on 08-11-2023 Hematocrit (Bld) [Volume fraction] 41.3 % 37-47 [facility] Laboratory - Hematology and Cell countsOrdered By: Julio Duong on 08-11-2023 Erythrocyte distribution width (RBC) [Entitic vol] 50.7 fL 35.1-43.9 [facility] Erythrocyte distribution width (RBC) [Ratio] 15.0 % 11.6-14.6 [facility] Immature granulocytes/100 WBC (Bld) 0.200 % 0.0-0.9 [facility] Comment on above: IG% - Immature Granu locytes (promyelocytes, myelocytes and metamyelocytes) > 1% indicates that a LEFT SHIFT is Present. MCH (RBC) [Entitic mass] 28.7 pg 27.0-32.0 [facility] Nucleated RBC/100 WBC (Bld) [Ratio] 0 % 0-5 [facility] MCHC Auto (RBC) [Mass/Vol]Or dered By: Julio Duong on 08-11-2023 MCHC (RBC) [Mass/Vol] 31.2 g/dL 32-36 [facility] Platelets bldOrdered By: Conchis Duong on 08-11-2023 Platelets (Bld) [#/Vol] 268 10*3/uL 150-450 [facility] Basophil percentageOrdered B y: Miguelina Castanon on 08-06-2023 Bilirubin [Mass/Vol] 0.30 mg/dL 0.20-1.00 [facility] Comment on above: For patients on eltr ombopag therapy, use of Dimension [place] TBIL is not recommended. Cholesterol [Mass/Vol] 131 mg/dL <200 [facility] Comment on above: <200 mg/dL Desirable 200-240 mg/dL Borderline >240 mg/dL High Risk Protein [Mass/Vol] 6.2 g/dL 6.4-8.2 [facility] Triglyceride [Mass/Vol] 108 mg/dL <199 [facility] Comment on above: The drugs N-Acetylcy steine and Metamizole may falsely depress this assay.Serum Triglycerides Reference Interval Normal <150 mg/dL Borderline high 150 - 199 mg/dL High 200 - 499 mg/dL Very High > or = 500 mg/dL Laboratory - Chemistry and C hemistry - challengeOrdered By: Miguelina Castanon on 08-06-2023 ALP [Catalytic activity/Vol] 77 U/L 45-117 [facility] ALT [Catalytic activity/Vol] 20 U/L 13-56 [facility] Globulin (S) [Mass/Vol] 3.4 g/dL 2.2-4.2 [facility] Serum or plasma albumin margarita urement (mass/volume)Ordered By: Miguelina Castanon on 08-06-2023 Albumin [Mass/Vol] 2.8 g/dL 3.2-5.0 [facility] Serum or plasma albumin/glob ulin mass ratioOrdered By: Miguelina Castanon on 08-06-2023 Albumin/Globulin [Mass ratio] 0.8 {ratio} 0.9-2.4 [facility] Serum or plasma cholesterol in HDL measurement (mass/volume)Ordered By: Miguelina Castanon on 08-06-2023 Cholesterol in HDL [Mass/Vol] 46 mg/dL >40 [facility] Comment on above: The drugs N-Acetylcy steine and Metamizole may falsely depress this assay. Reference Range HDL <40 mg/dL Low HDL Cholesterol HDL >or= 60 mg/dL High HDL Cholesterol Serum or plasma cholesterol in VLDL measurement (mass/volume)Ordered By: Miguelina Castanon on 08-06-2023 Cholesterol in VLDL [Mass/Vol] 22 mg/dL 5-40 [facility] Serum or plasma low density lipoprotein (LDL) cholesterol measurement (mass/volume)Ordered By: Miguelina Castanon on 08-06-2023 Cholesterol in LDL [Mass/Vol] 63 mg/dL 0-130 [facility] Thin prep Papanicolaou smear with manual screeningOrdered By: Miguelina Castanon on 08-06-2023 Thin prep Papanicolaou smear with manual screening 14 U/L 15-37 [facility] Absolute lymphocyte countOrd ered By: Castro Lane on 08-05-2023 Lymphocytes Auto (Unsp spec) [#/Vol] 2.38 10*3/uL 0.83-4.51 [facility] Basophil percentageOrdered B y: Castro Lane on 08-05-2023 Basophils/100 WBC (Bld) 0.6 % 0-1 [facility] Chloride [Moles/Vol] 103 mmol/L 98-107 [facility] Eosinophils/100 WBC (Bld) 5.7 % 0-5 [facility] Glucose [Mass/Vol] 115 mg/dL 74-106 [facility] Comment on above: Fasting Glucose resu lt from 100 to 125 mg/dL suggests IMPAIRED HOMEOSTASIS per A.D.A. criteria. Neutrophils (Bld) [#/Vol] 3.1 10*3/uL 2.0-7.7 [facility] Neutrophils/100 WBC (Bld) 48.3 % 47-70 [facility] Potassium [Moles/Vol] 5.2 mmol/L 3.5-5.1 [facility] Sodium [Moles/Vol] 137 mmol/L 136-145 [facility] WBC (Bld) [#/Vol] 6.3 10*3/uL 4.4-11.0 [facility] Blood erythrocytes count (nu mber/volume)Ordered By: Castro Lane on 08-05-2023 RBC (Bld) [#/Vol] 4.69 10*6/uL 4.2-5.4 [facility] Blood hemoglobin measurement (mass/volume)Ordered By: Castro Lane on 08-05-2023 Hemoglobin (Bld) [Mass/Vol] 13.4 g/dL 12.0-15.0 [facility] Blood lymphocytes/100 leukoc ytesOrdered By: Castro Lane on 08-05-2023 Lymphocytes/100 WBC (Bld) 37.6 % 19-41 [facility] Blood monocytes/100 leukocyt esOrdered By: Castro [address] on 08-05-2023 Monocytes/100 WBC (Bld) 7.6 % 0-10 [facility] Blood platelet mean volumeOr dered By: Castro Lane on 08-05-2023 Platelet mean volume (Bld) [Entitic vol] 10.5 fL 6.2-12.0 [facility] Determination of erythrocyte mean corpuscular volume (MCV)Ordered By: Castro Lane on 08-05-2023 MCV (RBC) [Entitic vol] 94.9 fL 81-99 [facility] Hematocrit Auto (Bld) [Volum e fraction]Ordered By: Castro Lane on 08-05-2023 Hematocrit (Bld) [Volume fraction] 44.5 % 37-47 [facility] Laboratory - Chemistry and C hemistry - challengeOrdered By: Miguelina Castanon on 08-05-2023 Magnesium [Mass/Vol] 2.6 mg/dL 1.6-2.6 [facility] Laboratory - Chemistry and C hemistry - challengeOrdered By: Castro Lane on 08-05-2023 CO2 [Moles/Vol] 30.0 mmol/L 21.0-32.0 [facility] Natriuretic peptide B (Bld) [Mass/Vol] 7.2 pg/mL 0-100 [facility] Urea nitrogen/Creatinine [Mass ratio] 21.5 mg/mg 10-20 [facility] Laboratory - Drug toxicology Ordered By: Castro Lane on 08-05-2023 Amphetamines Ql (U) Negative <1000 ng/mL [facility] Benzodiazepines Ql (U) Negative < 200 ng/mL [facility] Cannabinoids Screen Ql (U) Negative < 50 ng/mL [facility] Cocaine Ql (U) Negative < 300 ng/mL [facility] Opiates Ql (U) Positive < 300 ng/mL [facility] Laboratory - Hematology and Cell countsOrdered By: Castro Lane on 08-05-2023 Erythrocyte distribution width (RBC) [Entitic vol] 54.4 fL 35.1-43.9 [facility] Erythrocyte distribution width (RBC) [Ratio] 15.6 % 11.6-14.6 [facility] Immature granulocytes/100 WBC (Bld) 0.200 % 0.0-0.9 [facility] Comment on above: IG% - Immature Granu locytes (promyelocytes, myelocytes and metamyelocytes) > 1% indicates that a LEFT SHIFT is Present. MCH (RBC) [Entitic mass] 28.6 pg 27.0-32.0 [facility] Nucleated RBC/100 WBC (Bld) [Ratio] 0 % 0-5 [facility] MCHC Auto (RBC) [Mass/Vol]Or dered By: Castro Lane on 08-05-2023 MCHC (RBC) [Mass/Vol] 30.1 g/dL 32-36 [facility] No Panel InformationOrdered By: Miguelina Castanon on 08-05-2023 Troponin I High Sensitivity 64 pg/mL 3.0-54.0 [facility] Comment on above: Please Note: New Fina t Units and Gender Specific Reference Ranges. For more information see Policy Stat Procedure [place] High Sensitivity Troponin (TNIH) and attachments. No Panel InformationOrdered By: Woodrow Cardenas on 08-05-2023 D-Dimer Quantitative (PE/DVT) 9.13 FEU/ug/m 0.27-0.49 [facility] Comment on above: D-Dimer ELEVATED (>0 .49): Additional studies and clinicalassessments are indicated to conclude diagnosis of:Deep Vein Thrombosis (DVT) or Pulmonary Embolism (PE)CRITICAL VALUE VERIFIED. CALLED TO ROSALINDA MONTANO ([facility])08/05/23 0920 Niles Mendoza.RESULTS READ BACK BY SAME. No Panel InformationOrdered By: Castro Lane on 08-05-2023 MDMA (Ecstasy) Screen Negative < 500 ng/mL [facility] Urine Barbiturates Screen Negative < 200 ng/mL [facility] Urine Drug Screen Comment [facility] Comment on above: CONFIRMATORY TESTING FOR [...] Screen Negative < 300 ng/mL [facility] Estimated Creatinine Clearance Calc 39.31 ml/min [facility] Estimated GFR (MDRD) Amer 53 mL/min >60 [facility] Comment on above: GFR Calc Estimated GFR (MDRD) Non-Af Amer 43 mL/min >60 [facility] Comment on above: Non- GFR Calc Troponin I High Sensitivity 73 pg/mL 3.0-54.0 [facility] Comment on above: Please Note: New Fina t Units and Gender Specific Reference Ranges. For more information see Policy Stat Procedure [place] High Sensitivity Troponin (TNIH) and attachments. Platelets bldOrdered By: Temo Lane on 08-05-2023 Platelets (Bld) [#/Vol] 244 10*3/uL 150-450 [facility] Serum or plasma calcium margarita urement (mass/volume)Ordered By: Castro Lane on 08-05-2023 Calcium [Mass/Vol] 9.2 mg/dL 8.5-10.1 [facility] Serum or plasma creatinine m easurement (mass/volume)Ordered By: Castro Lane on 08-05-2023 Creatinine [Mass/Vol] 1.30 mg/dL 0.55-1.02 [facility] Comment on above: The validity of the calculated GFR & GFRAA in patients over 70 years has not been determined. Clinical correlation is essential. Serum or plasma urea nitroge n measurement (mass/volume)Ordered By: Castro Lane on 08-05-2023 Urea nitrogen [Mass/Vol] 28 mg/dL 7-18 [facility] Thin prep Papanicolaou smear with manual screeningOrdered By: Castro Lane on 08-05-2023 Thin prep Papanicolaou smear with manual screening 4 5-15 [facility] Urine phencyclidine (PCP) de tectionOrdered By: Castro Lane on 08-05-2023 Phencyclidine Ql (U) Negative < 25 ng/mL [facility] Absolute lymphocyte countOrd ered By: Stef Bennett on 01-14-2023 Lymphocytes Auto (Unsp spec) [#/Vol] 1.72 10*3/uL 0.83-4.51 [facility] Basophil percentageOrdered B y: Stef Bennett on 01-14-2023 Ammonia (P) [Moles/Vol] 15.0 umol/L 11-32 [facility] Basophil percentage < 0.2 AI 0.0-0.9 [facility] Basophils/100 WBC (Bld) 0.3 % 0-1 [facility] Bilirubin [Mass/Vol] 0.40 mg/dL 0.20-1.00 [facility] Comment on above: For patients on eltr ombopag therapy, use of Dimension [place] TBIL is not recommended. Chloride [Moles/Vol] 109 mmol/L 98-[address] [facility] Eosinophils/100 WBC (Bld) 4.0 % 0-5 [facility] Glucose [Mass/Vol] 146 mg/dL 74-106 [facility] Comment on above: Fasting Glucose resu lt greater than or equal to 126 mg/dL suggests DIABETES MELLITUS per A.D.A. criteria. LDH [Catalytic activity/Vol] 213 U/L 84-246 [facility] Neutrophils (Bld) [#/Vol] 3.7 10*3/uL 2.0-7.7 [facility] Neutrophils/100 WBC (Bld) 61.6 % 47-70 [facility] Potassium [Moles/Vol] 3.9 mmol/L 3.5-5.1 [facility] Protein [Mass/Vol] 7.3 g/dL 6.4-8.2 [facility] Sodium [Moles/Vol] 139 mmol/L 136-145 [facility] WBC (Bld) [#/Vol] 6.0 10*3/uL 4.4-11.0 [facility] Blood erythrocytes count (nu mber/volume)Ordered By: Stef Bennett on 01-14-2023 RBC (Bld) [#/Vol] 5.03 10*6/uL 4.2-5.4 [facility] Blood hemoglobin measurement (mass/volume)Ordered By: Stef Bennett on 01-14-2023 Hemoglobin (Bld) [Mass/Vol] 14.6 g/dL 12.0-15.0 [facility] Blood lymphocytes/100 leukoc ytesOrdered By: Stef Bennett on 01-14-2023 Lymphocytes/100 WBC (Bld) 28.6 % 19-41 [facility] Blood monocytes/100 leukocyt esOrdered By: Stef Bennett on 01-14-2023 Monocytes/100 WBC (Bld) 5.5 % 0-10 [facility] Blood platelet mean volumeOr dered By: Stef Bennett on 01-14-2023 Platelet mean volume (Bld) [Entitic vol] 10.3 fL 6.2-12.0 [facility] Determination of erythrocyte mean corpuscular volume (MCV)Ordered By: Stef Bennett on 01-14-2023 MCV (RBC) [Entitic vol] 89.3 fL 81-99 [facility] Erythrocyte sedimentation ra teOrdered By: Stef Benntet on 01-14-2023 ESR (Bld) [Velocity] 19 mm/h 0-30 [facility] HIV 1 and HIV-2 antibody ass ay with HIV-1 p24 antigen detectionOrdered By: Stef Bennett on 01-14-2023 HIV 1+2 Ab+HIV1 p24 Ag IA Ql Non-Reactive Nonreactive [facility] Hematocrit Auto (Bld) [Volum e fraction]Ordered By: Stef Bennett on 01-14-2023 Hematocrit (Bld) [Volume fraction] 44.9 % 37-47 [facility] INR in Blood by Coagulation assayOrdered By: Stef Bennett on 01-14-2023 INR Coag (Bld) [Relative time] 1.1 {INR} [facility] Laboratory - Chemistry and C hemistry - challengeOrdered By: Stef Bennett on 01-14-2023 ALP [Catalytic activity/Vol] 94 U/L 45-117 [facility] ALT [Catalytic activity/Vol] 24 U/L 13-56 [facility] CO2 [Moles/Vol] 23.0 mmol/L 21.0-32.0 [facility] Globulin (S) [Mass/Vol] 3.3 g/dL 2.2-4.2 [facility] Urea nitrogen/Creatinine [Mass ratio] 19.2 mg/mg 10-20 [facility] Laboratory - CoagulationOrde red By: Stef Bennett on 01-14-2023 PT Coag (PPP) [Time] 14.2 s 11.7-14.9 [facility] Laboratory - Hematology and Cell countsOrdered By: Stef Bennett on 01-14-2023 Erythrocyte distribution width (RBC) [Entitic vol] 46.4 fL 35.1-43.9 [facility] Erythrocyte distribution width (RBC) [Ratio] 14.1 % 11.6-14.6 [facility] Immature granulocytes/100 WBC (Bld) 0.000 % 0.0-0.9 [facility] Comment on above: IG% - Immature Granu locytes (promyelocytes, myelocytes and metamyelocytes) > 1% indicates that a LEFT SHIFT is Present. MCH (RBC) [Entitic mass] 29.0 pg 27.0-32.0 [facility] Nucleated RBC/100 WBC (Bld) [Ratio] 0 % 0-5 [facility] MCHC Auto (RBC) [Mass/Vol]Or dered By: Stef Friend on 01-14-2023 MCHC (RBC) [Mass/Vol] 32.5 g/dL 32-36 [facility] No Panel InformationOrdered By: Stef Friend on 01-14-2023 Centromere B Antibody <0.2 AI 0.0-0.9 [facility] Estimated GFR (MDRD) Amer 68 mL/min >60 [facility] Comment on above: GFR Calc Estimated GFR (MDRD) Non-Af Amer 56 mL/min >60 [facility] Comment on above: Non- GFR Calc Hepatitis C Antibody Reactive Nonreactive [facility] Comment on above: Previous reported re sult: Preliminary Reactive Edited by: TIMO on 01/15/23:0728 AMENDED REPORT 01/15/23 0728 HEPATITIS C AB previously reported as: Preliminary Reactive Non Reactive: < 0.8 Equivocal: >/= 0.8 to < 1.0 Reactive: >/= 1.0The CDC recommends that a reactive/equivocal HCV antibody result be followed up by the HCV Nucleic Acid Amplificationtest (477096) Miscellaneous Test See comment [facility] Comment on above: TEST RESULTS LIMITSH CV RNA Diagnosis, NAAHCV RNA, Quantitation HCV Not Detected IU/mLNo evidence of active HCV infection.Test Information: The quantitative range of this assay is 15 IU/mL to 100 million IU/mL. TESTING PERFORMED AT [facility] [place]. ORIGINAL REPORT ON FILE IN LAB CONTAINS ADDITIONAL TEST SITE INFORMATION. TRANSMISSION REPAIRER Antibody <0.2 AI 0.0-0.9 [facility] Platelets bldOrdered By: Pedro Bennett on 01-14-2023 Platelets (Bld) [#/Vol] 244 10*3/uL 150-450 [facility] Serum DNA double strand anti body assay (units/volume)Ordered By: Stef Bennett on 01-14-2023 DNA double strand Ab Qn (S) 3 [IU]/mL 0-9 [facility] Comment on above: Negative <5 Equivoca l 5 - 9 Positive >9 Serum Tia-1 antibody assay (u nits/volume)Ordered By: Stef Bennett on 01-14-2023 Tia-1 extractable nuclear Ab Qn (S) <0.2 AI 0.0-0.9 [facility] Serum Scl-70 extractable nuc lear antibody assay (units/volume)Ordered By: Stef Bennett on 01-14-2023 SCL-70 extractable nuclear Ab Qn (S) <0.2 AI 0.0-0.9 [facility] Serum Farah extractable nucl ear antibody detectionOrdered By: Stef Bennett on 01-14-2023 Farah extractable nuclear Ab Ql (S) <0.2 AI 0.0-0.9 [facility] Serum mitochondria antibody detectionOrdered By: Stef Bennett on 01-14-2023 Mitochondria Ab Ql (S) <20.0 Units 0.0-20.0 [facility] Comment on above: Negative 0.0 - 20.0 Equivocal 20.1 - 24.9 Positive >24.9Mitochondrial (M2) Antibodies are found in 90-96% ofpatients with primary biliary cirrhosis.Performed at: - [address] [id number] Director: Curry Andrews PhD, Phone: [phone] Serum or plasma C reactive p rotein measurement (mass/volume)Ordered By: Stef Bennett on 01-14-2023 CRP [Mass/Vol] mg/L 0.0-3.0 [facility] Comment on above: C-Reactive Protein ( CRP) provides useful information for thediagnosis, therapy and monitoring of inflammatory processesand associated diseases. For the evaluation of Relative Riskfor Cardiovascular Disease, a High Sensitivity CRP (HSCRP)should be ordered. Serum or plasma albumin margarita urement (mass/volume)Ordered By: Stef Bennett on 01-14-2023 Albumin [Mass/Vol] 4.0 g/dL 3.2-5.0 [facility] Serum or plasma albumin/glob ulin mass ratioOrdered By: Stef Bennett on 01-14-2023 Albumin/Globulin [Mass ratio] 1.2 {ratio} 0.9-2.4 [facility] Serum or plasma calcium margarita urement (mass/volume)Ordered By: Stef Bennett on 01-14-2023 Calcium [Mass/Vol] 9.2 mg/dL 8.5-10.1 [facility] Serum or plasma creatinine m easurement (mass/volume)Ordered By: Stef Bennett on 01-14-2023 Creatinine [Mass/Vol] 1.04 mg/dL 0.55-1.02 [facility] Comment on above: The validity of the calculated GFR & GFRAA in patients over 70 years has not been determined. Clinical correlation is essential. Serum or plasma ferritin joseph surement (mass/volume)Ordered By: Stef Bennett on 01-14-2023 Ferritin [Mass/Vol] 67 ng/mL 8-252 [facility] Serum or plasma urea nitroge n measurement (mass/volume)Ordered By: Stef Bennett on 01-14-2023 Urea nitrogen [Mass/Vol] 20 mg/dL 7-18 [facility] Thin prep Papanicolaou smear with manual screeningOrdered By: Stef Bennett on 01-14-2023 Thin prep Papanicolaou smear with manual screening 21 U/L 15-37 [facility] Thin prep Papanicolaou smear with manual screening 7 5-15 [facility] Absolute lymphocyte countOrd ered By: Dr. Kingsley on 10-22-2022 Lymphocytes Auto (Unsp spec) [#/Vol] 2.52 10*3/uL 0.83-4.51 [facility] Basophil percentageOrdered B y: Dr. Kingsley on 10-22-2022 Basophils/100 WBC (Bld) 0.5 % 0-1 [facility] Chloride [Moles/Vol] 110 mmol/L 98-107 [facility] Eosinophils/100 WBC (Bld) 5.9 % 0-5 [facility] Glucose [Mass/Vol] 96 mg/dL 74-106 [facility] Neutrophils (Bld) [#/Vol] 2.9 10*3/uL 2.0-7.7 [facility] Neutrophils/100 WBC (Bld) 46.3 % 47-70 [facility] Potassium [Moles/Vol] 5.4 mmol/L 3.5-5.1 [facility] Comment on above: Moderate Hemolysis, Result may be falsely increased. Sodium [Moles/Vol] 138 mmol/L 136-145 [facility] WBC (Bld) [#/Vol] 6.3 10*3/uL 4.4-11.0 [facility] Blood erythrocytes count (nu mber/volume)Ordered By: Dr. Kingsley on 10-22-2022 RBC (Bld) [#/Vol] 4.77 10*6/uL 4.2-5.4 [facility] Blood hemoglobin measurement (mass/volume)Ordered By: Dr. Kingsley on 10-22-2022 Hemoglobin (Bld) [Mass/Vol] 14.1 g/dL 12.0-15.0 [facility] Blood lymphocytes/100 leukoc ytesOrdered By: Dr. Kingsley on 10-22-2022 Lymphocytes/100 WBC (Bld) 40.1 % 19-41 [facility] Blood monocytes/100 leukocyt esOrdered By: Dr. Kingsley on 10-22-2022 Monocytes/100 WBC (Bld) 7.0 % 0-10 [facility] Blood platelet mean volumeOr dered By: Dr. Kingsley on 10-22-2022 Platelet mean volume (Bld) [Entitic vol] 10.1 fL 6.2-12.0 [facility] Determination of erythrocyte mean corpuscular volume (MCV)Ordered By: Dr. Kingsley on 10-22-2022 MCV (RBC) [Entitic vol] 90.4 fL 81-99 [facility] Hematocrit Auto (Bld) [Volum e fraction]Ordered By: Dr. Kingsley on 10-22-2022 Hematocrit (Bld) [Volume fraction] 43.1 % 37-47 [facility] Laboratory - Chemistry and C hemistry - challengeOrdered By: Dr. Kingsley on 10-22-2022 CO2 [Moles/Vol] 22.0 mmol/L 21.0-32.0 [facility] Urea nitrogen/Creatinine [Mass ratio] 17.0 mg/mg 10-20 [facility] Laboratory - Hematology and Cell countsOrdered By: Dr. Kingsley on 10-22-2022 Erythrocyte distribution width (RBC) [Entitic vol] 45.9 fL 35.1-43.9 [facility] Erythrocyte distribution width (RBC) [Ratio] 13.9 % 11.6-14.6 [facility] Immature granulocytes/100 WBC (Bld) 0.200 % 0.0-0.9 [facility] Comment on above: IG% - Immature Granu locytes (promyelocytes, myelocytes and metamyelocytes) > 1% indicates that a LEFT SHIFT is Present. MCH (RBC) [Entitic mass] 29.6 pg 27.0-32.0 [facility] Nucleated RBC/100 WBC (Bld) [Ratio] 0 % 0-5 [facility] MCHC Auto (RBC) [Mass/Vol]Or dered By: Dr. Kingsley on 10-22-2022 MCHC (RBC) [Mass/Vol] 32.7 g/dL 32-36 [facility] No Panel InformationOrdered By: Dr. Kingsley on 10-22-2022 Estimated Creatinine Clearance Calc 46.25 ml/min [facility] Estimated GFR (MDRD) Amer 63 mL/min >60 [facility] Comment on above: GFR Calc Estimated GFR (MDRD) Non-Af Amer 52 mL/min >60 [facility] Comment on above: Non- GFR Calc Platelets bldOrdered By: Dr. Kingsley on 10-22-2022 Platelets (Bld) [#/Vol] 244 10*3/uL 150-450 [facility] Serum or plasma calcium margarita urement (mass/volume)Ordered By: Dr. Kingsley on 10-22-2022 Calcium [Mass/Vol] 9.2 mg/dL 8.5-10.1 [facility] Serum or plasma creatinine m easurement (mass/volume)Ordered By: Dr. Kingsley on 10-22-2022 Creatinine [Mass/Vol] 1.12 mg/dL 0.55-1.02 [facility] Comment on above: The validity of the calculated GFR & GFRAA in patients over 70 years has not been determined. Clinical correlation is essential. Serum or plasma urea nitroge n measurement (mass/volume)Ordered By: Dr. Kingsley on 10-22-2022 Urea nitrogen [Mass/Vol] 19 mg/dL 7-18 [facility] Thin prep Papanicolaou smear with manual screeningOrdered By: Dr. Kingsley on 10-22-2022 Thin prep Papanicolaou smear with manual screening 6 5-15 [facility] Absolute lymphocyte countOrd ered By: Dr. Marshall on 07-30-2022 Lymphocytes Auto (Unsp spec) [#/Vol] 2.42 10*3/uL 0.83-4.51 [facility] Basophil percentageOrdered B y: Dr. Marshall on 07-30-2022 Basophils/100 WBC (Bld) 0.7 % 0-1 [facility] Chloride [Moles/Vol] 106 mmol/L 98-107 [facility] Eosinophils/100 WBC (Bld) 6.9 % 0-5 [facility] Glucose [Mass/Vol] 100 mg/dL 74-106 [facility] Comment on above: Fasting Glucose resu lt from 100 to 125 mg/dL suggests IMPAIRED HOMEOSTASIS per A.D.A. criteria. Neutrophils (Bld) [#/Vol] 2.8 10*3/uL 2.0-7.7 [facility] Neutrophils/100 WBC (Bld) 45.4 % 47-70 [facility] Potassium [Moles/Vol] 3.9 mmol/L 3.5-5.1 [facility] Sodium [Moles/Vol] 140 mmol/L 136-145 [facility] WBC (Bld) [#/Vol] 6.1 10*3/uL 4.4-11.0 [facility] Blood erythrocytes count (nu mber/volume)Ordered By: Dr. Marshall on 07-30-2022 RBC (Bld) [#/Vol] 4.70 10*6/uL 4.2-5.4 [facility] Blood hemoglobin measurement (mass/volume)Ordered By: Dr. Marshall on 07-30-2022 Hemoglobin (Bld) [Mass/Vol] 14.1 g/dL 12.0-15.0 [facility] Blood lymphocytes/100 leukoc ytesOrdered By: Dr. Marshall on 07-30-2022 Lymphocytes/100 WBC (Bld) 39.5 % 19-41 [facility] Blood monocytes/100 leukocyt esOrdered By: Dr. Marshall on 07-30-2022 Monocytes/100 WBC (Bld) 7.2 % 0-10 [facility] Blood platelet mean volumeOr dered By: Dr. Marshall on 07-30-2022 Platelet mean volume (Bld) [Entitic vol] 10.3 fL 6.2-12.0 [facility] COVID-19 virus antigen assay Ordered By: Dr. Marshall on 07-30-2022 SARS-CoV-2 (COVID-19) Ag IA.rapid Ql (Resp) [facility] Determination of erythrocyte mean corpuscular volume (MCV)Ordered By: Dr. Marshall on 07-30-2022 MCV (RBC) [Entitic vol] 90.9 fL 81-99 [facility] Hematocrit Auto (Bld) [Volum e fraction]Ordered By: Dr. Marshall on 07-30-2022 Hematocrit (Bld) [Volume fraction] 42.7 % 37-47 [facility] Laboratory - Chemistry and C hemistry - challengeOrdered By: Dr. Marshall on 07-30-2022 CO2 [Moles/Vol] 30.0 mmol/L 21.0-32.0 [facility] Urea nitrogen/Creatinine [Mass ratio] 17.1 mg/mg 10-20 [facility] Laboratory - Hematology and Cell countsOrdered By: Dr. Marshall on 07-30-2022 Erythrocyte distribution width (RBC) [Entitic vol] 44.6 fL 35.1-43.9 [facility] Erythrocyte distribution width (RBC) [Ratio] 13.3 % 11.6-14.6 [facility] Immature granulocytes/100 WBC (Bld) 0.300 % 0.0-0.9 [facility] Comment on above: IG% - Immature Granu locytes (promyelocytes, myelocytes and metamyelocytes) > 1% indicates that a LEFT SHIFT is Present. MCH (RBC) [Entitic mass] 30.0 pg 27.0-32.0 [facility] Nucleated RBC/100 WBC (Bld) [Ratio] 0 % 0-5 [facility] MCHC Auto (RBC) [Mass/Vol]Or dered By: Dr. Marshall on 07-30-2022 MCHC (RBC) [Mass/Vol] 33.0 g/dL 32-36 [facility] No Panel InformationOrdered By: Dr. Marshall on 07-30-2022 Estimated Creatinine Clearance Calc 52.33 ml/min [facility] Estimated GFR (MDRD) Amer 72 mL/min >60 [facility] Comment on above: GFR Calc Estimated GFR (MDRD) Non-Af Amer 59 mL/min >60 [facility] Comment on above: Non- GFR Calc Platelets bldOrdered By: Dr. Marshall on 07-30-2022 Platelets (Bld) [#/Vol] 245 10*3/uL 150-450 [facility] Serum or plasma calcium margarita urement (mass/volume)Ordered By: Dr. Marshall on 07-30-2022 Calcium [Mass/Vol] 9.8 mg/dL 8.5-10.1 [facility] Serum or plasma creatinine m easurement (mass/volume)Ordered By: Dr. Marshall on 07-30-2022 Creatinine [Mass/Vol] 0.99 mg/dL 0.55-1.02 [facility] Comment on above: The validity of the calculated GFR & GFRAA in patients over 70 years has not been determined. Clinical correlation is essential. Serum or plasma urea nitroge n measurement (mass/volume)Ordered By: Dr. Marshall on 07-30-2022 Urea nitrogen [Mass/Vol] 17 mg/dL 7-18 [facility] Thin prep Papanicolaou smear with manual screeningOrdered By: Dr. Marshall on 07-30-2022 Thin prep Papanicolaou smear with manual screening 4 5-15 [facility] CKon 04-13-2020 CK [Catalytic activity/Vol] 216 U/L High 30-170 [facility] Comment on above: Performed By: #### H EMDF, CMP3, ETOH4, CK3 #### [address] Total CK 216 U/L High 30 - 170 U[facility] SARS-CoV-2 Not Detected Expected Result: Not Detected _ Real-time, RT-PCR performed on the [employer] System by the [facility]biology Service. Negative results do not preclude SARS-CoV-2 infection and should not be used as the sole basis for treatment or other patient management decisions. This assay was developed by [employer] and distributed under an Emergency Use Authorization (EUA) granted by the FDA for the qualitative detection of SARS-CoV-2 nucleic acid. [place], [place] Test Performed by [facility], [address] [place] [id number] Specimen Source Comment:Nasopharyngeal Swab [place], [place] Comp Metabolic Panelon 04-13 ALP [Catalytic activity/Vol] 72 U/L Normal 38-126 [facility] Comment on above: Performed By: #### H EMDF, CMP3, ETOH4, CK3 #### [address] ALT [Catalytic activity/Vol] 17 U/L Normal 0-34 [facility] Comment on above: Result Comment: The ALT test is performed by an updated assay method. Please note that the reference intervals have been changed and are now sex specific. Performed By: #### H EMDF, CMP3, ETOH4, CK3 #### [address] [place] [address] [place], [place] AST [Catalytic activity/Vol] 32 U/L Normal 15-46 [facility] Comment on above: Performed By: #### H EMDF, CMP3, ETOH4, CK3 #### [address] Calcium [Mass/Vol] 9.6 mg/dL Normal 8.4-10.4 [facility] Comment on above: Performed By: #### H EMDF, CMP3, ETOH4, CK3 #### [address] Glucose [Mass/Vol] 107 mg/dL High 70-100 [facility] Comment on above: Performed By: #### H EMDF, CMP3, ETOH4, CK3 #### [facility] [address], [place] Protein [Mass/Vol] 7.3 g/dL Normal 6.3-8.2 [facility] Comment on above: Performed By: #### H EMDF, CMP3, ETOH4, CK3 #### [facility] [address], [place] Urea nitrogen [Mass/Vol] 17 mg/dL Normal 7-20 [facility] Comment on above: Performed By: #### H EMDF, CMP3, ETOH4, CK3 #### [address] [place] [address] [address], [place] Anion gap [Moles/Vol] 7 Normal [facility] Comment on above: Performed By: #### H EMDF, CMP3, ETOH4, CK3 #### [address] [place] [address] [address], [place] Bilirubin [Mass/Vol] 0.5 mg/dL Normal 0.2-1.3 [facility] Comment on above: Performed By: #### H EMDF, CMP3, ETOH4, CK3 #### [address] [place] [address] [address], [place] CO2 [Moles/Vol] 25 mmol/L Normal 22-30 [facility] Comment on above: Performed By: #### H EMDF, CMP3, ETOH4, CK3 #### [place] [address] [address], [place] Creatinine [Mass/Vol] 0.98 mg/dL Normal 0.52-1.25 [facility] Comment on above: Performed By: #### H EMDF, CMP3, ETOH4, CK3 #### [facility] [address], [place] GFR/1.73 sq M predicted among blacks MDRD (S/P/Bld) [Vol rate/Area] 70.5 mL/min/{1.73_m2} Normal >60 [facility] Comment on above: Performed By: #### H EMDF, CMP3, ETOH4, CK3 #### [address] [id number] GFR/1.73 sq M predicted among non-blacks MDRD (S/P/Bld) [Vol rate/Area] 60.9 mL/min/{1.73_m2} Normal >60 [facility] Comment on above: Result Comment: KDIG O [...] #### H EMDF, CMP3, ETOH4, CK3 #### [address] [id number] Albumin [Mass/Vol] 4.2 g/dL Normal 3.5-5.0 [facility] Comment on above: Performed By: #### H EMDF, CMP3, ETOH4, CK3 #### [address] [address] Chloride [Moles/Vol] 105 mmol/L Normal 98-107 [facility] Comment on above: Performed By: #### H EMDF, CMP3, ETOH4, CK3 #### [address] [address] Potassium [Moles/Vol] 3.9 mmol/L Normal 3.5-5.1 [facility] Comment on above: Performed By: #### H EMDF, CMP3, ETOH4, CK3 #### [facility] [address], [place] Sodium [Moles/Vol] 137 mmol/L Normal 135-145 [facility] Comment on above: Performed By: #### H EMDF, CMP3, ETOH4, CK3 #### [place] [address] [address], [place] Complete Urinalysison 2019 Appearance (U) Clear Normal Clear [facility] Comment on above: Result Comment: . Performed By: #### C UA2, DRGA4 #### [place] [address] [address], [place] Bacteria LM.HPF (Urine sed) [#/Area] Negative Normal Negative [facility] Comment on above: Result Comment: . Performed By: #### C UA2, DRGA4 #### [address] [place] [address] [address], [place] Bilirubin,Urine Negative Normal Negative [facility] Comment on above: Result Comment: . Performed By: #### C UA2, DRGA4 #### [place] [address] [address], [place] Cast, Hyaline Negative Normal Negative [facility] Comment on above: Result Comment: . Performed By: #### C UA2, DRGA4 #### [place] [address] [address] [place], [place] Color (U) Yellow Normal Lt. Yellow [facility] Comment on above: Result Comment: . Performed By: #### C UA2, DRGA4 #### [place] [address] [address] [place], [place] Glucose Ql (U) Normal Normal Normal (<70) [facility] Comment on above: Result Comment: . Performed By: #### C UA2, DRGA4 #### [place] [address] [address] [place], [place] Ketone,Urine Trace Abnormal Negative [facility] Comment on above: Result Comment: . Performed By: #### C UA2, DRGA4 #### [place] [address] [address] [place], [place] Leukocytes,Urine 25 Charles/uL Abnormal Negative [facility] Comment on above: Result Comment: . Performed By: #### C UA2, DRGA4 #### [facility] [address], [place] Mucous Threads Few Normal Negative [facility] Comment on above: Result Comment: . Performed By: #### C UA2, DRGA4 #### [facility] [address], [place] Nitrites,Urine Negative Normal Negative [facility] Comment on above: Result Comment: . Performed By: #### C UA2, DRGA4 #### [facility] [address], [place] Occult Blood,Urine Negative Normal Negative [facility] Comment on above: Result Comment: . Performed By: #### C UA2, DRGA4 #### [place] [address] [address] [place], [place] pH (U) 5.5 Normal 5.0-8.0 [facility] Comment on above: Result Comment: . Performed By: #### C UA2, DRGA4 #### [place] [address] [address] [place], [place] Protein (U) [Mass/Vol] 20 mg/dL Abnormal Negative [facility] Comment on above: Result Comment: . Performed By: #### C UA2, DRGA4 #### [place] [address] [address] [place], [place] RBC LM.HPF (Urine sed) [#/Area] 0 - 2 Normal 0-2 [facility] Comment on above: Result Comment: . Performed By: #### C UA2, DRGA4 #### [facility] [address], [place] Specific Alpine,Urine > 1.030 Abnormal 1.005 - 1.030 [facility] Comment on above: Result Comment: . Performed By: #### C UA2, DRGA4 #### [facility] [address], [place] Squamous Epithelial 3 - 5 Normal 3-5 [facility] Comment on above: Result Comment: . Performed By: #### C UA2, DRGA4 #### [facility] [address] [place] [address] Urobilinogen,Urine 3 mg/dL Abnormal Normal (0-1) [facility] Comment on above: Result Comment: . Performed By: #### C UA2, DRGA4 #### [facility] [address] [place] [address] WBC LM.HPF (Urine sed) [#/Area] 6 - 10 Abnormal 0-5 [facility] Comment on above: Result Comment: . Performed By: #### C UA2, DRGA4 #### [facility] [address] [place] [address] Comprehensive Metabolic Pane cassia 04-13-2020 Albumin [Mass/Vol] 4.2 g/dL 3.5 - 5 g/dL [place], [place] ALP [Catalytic activity/Vol] 72 U/L 38 - 126 U/L [place], [place] ALT [Catalytic activity/Vol] 17 U/L 0 - 34 U/L [place] Comment on above: The ALT test is perf ormed by an updated assay method. Please note that the reference intervals have been changed and are now sex specific. Anion gap [Moles/Vol] 7 mmol/L [place], [place] AST [Catalytic activity/Vol] 32 U/L 15 - 46 U/L [place] Bilirubin Ql (U) 0.5 mg/dL 0.2 - 1.3 mg/dL [place] Calcium [Mass/Vol] 9.6 mg/dL 8.4 - 10. 4 mg/dL [place] Chloride [Moles/Vol] 105 mmol/L 98 - 10 7 mmol/L [place] CO2 [Moles/Vol] 25 mmol/L 22 - 30 mmol/L [place] Creatinine [Mass/Vol] 0.98 mg/dL 0.52 - 1.25 mg/dL [place] EGFR IF NonAfrican Ecuadorean 60.9 mL/min >60 [place] Comment on above: KDIGO guidelines pro [...] MDRD (S/P/Bld) [Vol rate/Area] 70.5 mL/min/{1.73_m2} >60 [facility], [place] Glucose [Mass/Vol] 107 mg/dL High 70 - 100 mg/dL [place], [place] Potassium [Moles/Vol] 3.9 mmol/L 3.5 - 5.1 mmol/L [facility], [place] Protein [Mass/Vol] 7.3 g/dL 6.3 - 8.2 g/dL [place] Sodium [Moles/Vol] 137 mmol/L 135 - 145 mmol/L [facility], [place] Urea nitrogen [Mass/Vol] 17 mg/dL 7 - 20 mg/dL [place] Drugs of Abuseon 04-13-2020 Phencyclidine (PCP), Ur Negative Normal [facility] Comment on above: Result Comment: The expected [...] Performed By: #### C UA2, DRGA4 #### [facility] [address] [place] [address] Methadone, Ur Negative Normal [facility] Comment on above: Performed By: #### C UA2, DRGA4 #### [facility] [address] [place] [address] Opiates, Ur Negative Normal [facility] Comment on above: Performed By: #### C UA2, DRGA4 #### [facility] [address] [facility], [place] Cocaine, Ur Positive Normal [facility] Comment on above: Performed By: #### C UA2, DRGA4 #### [facility] [address] [facility], [place] Amphetamines, Ur Negative Normal [facility] Comment on above: Performed By: #### C UA2, DRGA4 #### [facility] [address], [place] Barbiturates, Ur Negative Normal [facility] Comment on above: Performed By: #### C UA2, DRGA4 #### [facility] [address] [place] [address] Benzodiazepines, Ur Negative Normal [facility] Comment on above: Performed By: #### C UA2, DRGA4 #### [facility] [address], [place] Oxycodone/Oxymorphine, Ur Negative Normal [facility] Comment on above: Performed By: #### C UA2, DRGA4 #### [facility] [address] [facility], [place] Ethanolon 04-13-2020 Ethanol Lvl <0.010 0 - 0.01 g/dL [facility], [place] Comment on above: NOTE: This result is for medical treatment only. Analysis performed using non-forensic procedures. Ethanol Serum/Plasmaon 04-13 Ethanol-Serum/Plasma < 0.010 Normal 0.000-0.010 [facility] Comment on above: Result Comment: NOTE : This result is for medical treatment only. Analysis performed using non-forensic procedures. Performed By: #### H EMDF, CMP3, ETOH4, CK3 #### [facility] [address] [place] [address] Hemogram (CBC) w/Auto Diffon 04-13-2020 Absolute Baso # 0.0 10*3/uL 0 - 0.2 10*3/uL [place] Absolute Neut # 3.8 10*3/uL 1.8 - 7 10*3/uL [place] Basophils/100 WBC (Bld) 0.5 % 0 - 2 % [place] Eosinophils (Bld) [#/Vol] 0.2 10*3/uL 0 - 0.5 10*3/uL [place] Eosinophils/100 WBC (Bld) 2.4 % 1 - 6 % [place] Erythrocyte distribution width (RBC) [Ratio] 15.3 % High 11.5 - 14.5 % [place] Granulocytes/100 WBC (Bld) 58.0 % 40 - 80 % [place] Hematocrit (Bld) [Volume fraction] 46.0 % 35 - 47 % [place] Hemoglobin (Bld) [Mass/Vol] 15.5 g/dL 11.7 - 16 g/dL [place] Interpretation and review of laboratory results Abnormal [place] Lymphocytes (Bld) [#/Vol] 2.2 10*3/uL 1 - 4.3 10*3/uL [place] Lymphocytes/100 WBC (Bld) 34.0 % 20 - 40 % [place] MCH (RBC) [Entitic mass] 31.3 pg 26 - 34 pg [place] MCHC (RBC) [Mass/Vol] 33.7 % 32 - 36 % [place] MCV (RBC) [Entitic vol] 93.1 fL 79 - 98 fL [place] Monocytes (Bld) [#/Vol] 0.3 10*3/uL 0 - 0.8 10*3/uL [place] Monocytes/100 WBC (Bld) 5.1 % 2 - 10 % [place] Platelet mean volume (Bld) [Entitic vol] 9.3 fL 7.4 - 10.4 fL [place] Platelets (Bld) [#/Vol] 211 10*3/uL 140 - 440 10*3/uL [place] RBC (Bld) [#/Vol] 4.94 10*6/uL 3.8 - 5.2 10*6/uL [place] WBC (Bld) [#/Vol] 6.6 10*3/uL 3.6 - 10.7 10*3/uL [place] Test Performed by [facility], [address] [place] [id number] [place] [address] Hemogram w/ Autodiffon 04-13 Abs Baso Cnt 0.0 10*3/uL Normal 0.0-0.2 [facility] Comment on above: Performed By: #### H EMDF, CMP3, ETOH4, CK3 #### [address] Abs Neutrophile Cnt 3.8 10*3/uL Normal 1.8-7.0 [facility] Comment on above: Performed By: #### H EMDF, CMP3, ETOH4, CK3 #### [address] [address] Basophils/100 WBC (Bld) 0.5 % Normal 0.0-2.0 [facility] Comment on above: Performed By: #### H EMDF, CMP3, ETOH4, CK3 #### [address] [address] Eosinophils (Bld) [#/Vol] 0.2 10*3/uL Normal 0.0-0.5 [facility] Comment on above: Performed By: #### H EMDF, CMP3, ETOH4, CK3 #### [address] [address] Eosinophils/100 WBC (Bld) 2.4 % Normal 1.0-6.0 [facility] Comment on above: Performed By: #### H EMDF, CMP3, ETOH4, CK3 #### [place] [address] [address] [place], [place] Erythrocyte distribution width (RBC) [Ratio] 15.3 % High 11.5-14.5 [facility] Comment on above: Performed By: #### H EMDF, CMP3, ETOH4, CK3 #### [place] [address] [place], [place] Granulocytes/100 WBC (Bld) 58.0 % Normal 40.0-80.0 [facility] Comment on above: Performed By: #### H EMDF, CMP3, ETOH4, CK3 #### [address] Hematocrit (Bld) [Volume fraction] 46.0 % Normal 35.0-47.0 [facility] Comment on above: Performed By: #### H EMDF, CMP3, ETOH4, CK3 #### [place] [address] [place] Hemoglobin (Bld) [Mass/Vol] 15.5 g/dL Normal 11.7-16.0 [facility] Comment on above: Performed By: #### H EMDF, CMP3, ETOH4, CK3 #### [address] Lymphocytes (Bld) [#/Vol] 2.2 10*3/uL Normal 1.0-4.3 [facility] Comment on above: Performed By: #### H EMDF, CMP3, ETOH4, CK3 #### [address] Lymphocytes/100 WBC (Bld) 34.0 % Normal 20.0-40.0 [facility] Comment on above: Performed By: #### H EMDF, CMP3, ETOH4, CK3 #### [address] MCH (RBC) [Entitic mass] 31.3 pg Normal 26.0-34.0 [facility] Comment on above: Performed By: #### H EMDF, CMP3, ETOH4, CK3 #### [place] [address] [address] [place], [place] MCHC (RBC) [Mass/Vol] 33.7 % Normal 32.0-36.0 [facility] Comment on above: Performed By: #### H EMDF, CMP3, ETOH4, CK3 #### [address] MCV (RBC) [Entitic vol] 93.1 fL Normal 79.0-98.0 [facility] Comment on above: Performed By: #### H EMDF, CMP3, ETOH4, CK3 #### [address] Monocytes (Bld) [#/Vol] 0.3 10*3/uL Normal 0.0-0.8 [facility] Comment on above: Performed By: #### H EMDF, CMP3, ETOH4, CK3 #### [address] Monocytes/100 WBC (Bld) 5.1 % Normal 2.0-10.0 [facility] Comment on above: Performed By: #### H EMDF, CMP3, ETOH4, CK3 #### [address] Platelet mean volume (Bld) [Entitic vol] 9.3 fL Normal 7.4-10.4 [facility] Comment on above: Performed By: #### H EMDF, CMP3, ETOH4, CK3 #### [address] Platelets (Bld) [#/Vol] 211 10*3/uL Normal 140-440 [facility] Comment on above: Performed By: #### H EMDF, CMP3, ETOH4, CK3 #### [address] RBC (Bld) [#/Vol] 4.94 10*6/uL Normal 3.80-5.20 [facility] Comment on above: Performed By: #### H EMDF, CMP3, ETOH4, CK3 #### [place] [address] [address] [place], [place] WBC (Bld) [#/Vol] 6.6 10*3/uL Normal 3.6-10.7 [facility] Comment on above: Performed By: #### H EMDF, CMP3, ETOH4, CK3 #### [place] [address] [place], [place] Otheron 04-13-2020 Interpretation and review of laboratory results Abnormal [place], [place] Test Performed by [facility], [place] [address] [place] [id number] 04-13-2020 SARS-CoV-2 SARS-CoV-2 --> Statu s: F Not Detected Expected Result: Not Detected _ Real-time, RT-PCR performed on the [employer] System by the [facility] Service. Negative results do not preclude SARS-CoV-2 infection and should not be used as the sole basis for treatment or other patient management decisions. This assay was developed by [employer] and distributed under an Emergency Use Authorization (EUA) granted by the FDA for the qualitative detection of SARS-CoV-2 nucleic acid. Expected Result: Not Detected _ Real-time, RT-PCR performed on the [employer] System by the [facility]biology Service. Negative results do not preclude SARS-CoV-2 infection and should not be used as the sole basis for treatment or other patient management decisions. This assay was developed by [employer] and distributed under an Emergency Use Authorization (EUA) granted by the FDA for the qualitative detection of SARS-CoV-2 nucleic acid. Normal [facility] Comment on above: Order Comment: Speci men Source Comment:Nasopharyngeal Swab Performed By: #### C OVID #### [place] [address] [address] [place], [place] Urinalysison 04-13-2020 Appearance (U) Clear Clear NA [place] Comment on above: . Bacteria, UA Negative Negative /[HPF] [place] Comment on above: . Bilirubin Urine Negative Negative mg/dL [place] Comment on above: . Color (U) Yellow Lt. Yellow NA [place] Comment on above: . Glucose, Ur Normal Normal (<70) mg/dL [place] Comment on above: . Hyaline Casts, UA Negative Negative /[LPF] [place] Comment on above: . Interpretation and review of laboratory results Abnormal [place] Ketones Ql (U) Trace Abnormal Negative mg/dL [place] Comment on above: . LEUKOCYTES, UA 25 Abnormal Negative Charles/uL [place] Comment on above: . Mucous Threads Few Negative /[LPF] [place] Comment on above: . Nitrite, Urine Negative Negative NA [place] Comment on above: . Occult Blood,Urine Negative Negative mg/dL [place] Comment on above: . pH (U) 5.5 [pH] [place] Comment on above: . Protein (U) [Mass/Vol] 20 mg/dL Abnormal Negative [place], [place] Comment on above: . RBC (U) [#/Vol] 0-2 0 - 2 /[HPF] [place] Comment on above: . Specific Alpine, Urine >1.030 Abnormal [place] Comment on above: . Squam Epithel, UA 3-5 3 - 5 /[HPF] [place] Comment on above: . Urobilinogen, Urine 3 mg/dL Abnormal Normal (0-1) [place] Comment on above: . WBC, UA 6-10 Abnormal 0 - 5 /[HPF] [place] Comment on above: . Test Performed by [facility], [address] [place] [address] [place] Urine Drug Screenon 04-13-20 20 Amphetamines, urine Negative [place] Barbiturates, Ur Negative [place] Benzodiazepine Ur Qual Negative [place], [place] Cocaine Metabolites, Ur Positive [place] Methadone, Urine Negative [place] Opiates, Urine Negative [place] Oxycodone Screen, Ur Negative [place] PCP, Urine Negative [place] Comment on above: The expected value [...] confirmation under separate order. Test Performed by [facility], [address] [place] [id number] [place] [address] Psychiatric Progress Noteon 12-04-2019 Psychiatric Progress Note [facility] Pt Name: DIANNE ALVES [address] MR#: [id number] [place] [address] ACCT: [id number] PROGRESS NOTE - Psychiatric : 57 Service Date: 12/04/19 1618 NAME: DIANNE ALVES MR#: [id number] DATE OF SERVICE: 12/04/2019 PSYCHIATRIC PROGRESS NOTE [...] discharge would be finalized. LANDRY JOE MD ANS/MODL/[id number] Electronically Signed eSign Date and Time Olivia Joe MD 12/08/19 1330 Normal [facility] CHEST PA/AP & LATERAL OR 2 V WSon 12-01-2019 CHEST PA/AP & LATERAL OR 2 VWS STUDY: CHEST PA/AP LATERAL OR 2 VWS; 12/01/2019 4:23 pm INDICATION: FPC PLACEMENT. COMPARISON: None. ACCESSION NUMBER(S): [id number] ORDERING CLINICIAN: Irwin Joe FINDINGS: The lungs appear clear without pleural effusion. The lungs are hyperinflated. Normal heart size, mediastinum, tea, and pulmonary vasculature. IMPRESSION: Pulmonary emphysema. No active disease in the chest. Normal [facility] Psychiatric Progress Noteon 12-01-2019 Psychiatric Progress Note [facility] Pt Name: DIANNE ALVES [address] [place] [address] MR#: [id number] [place] [address] ACCT: [id number] PROGRESS NOTE - Psychiatric : 57 Service Date: 12/01/192229 NAME: DIANNE ALVES MR#: [id number] DATE OF SERVICE: 12/01/2019 PSYCHIATRIC PROGRESS NOTE [...] further, discharge be considered. LANDRY JOE MD ANS/MODL/[id number] Electronically Signed eSign Date and Time Olivia Joe MD 12/04/19 1601 Normal [facility] BASIC MET PANELon 11-29-2019 Anion gap [Moles/Vol] 8 mmol/L Normal 6-18 [facility] Comment on above: Order Comment: CONSE RVATION Performed By: #### L 600.44584 #### Test performed at: [address] [address] Calcium [Mass/Vol] 9.3 mg/dL Normal 8.5-10.1 [facility] Comment on above: Order Comment: CONSE RVATION Performed By: #### L 600.32746 #### Test performed at: [address] [address] Chloride [Moles/Vol] 103 mmol/L Normal 98-107 [facility] Comment on above: Order Comment: CONSE RVATION Performed By: #### L 600.97226 #### Test performed at: [address] [address] CO2 [Moles/Vol] 31 mmol/L Normal 21-32 [facility] Comment on above: Order Comment: CONSE RVATION Performed By: #### L 600.20617 #### Test performed at: [address] [address] Creatinine [Mass/Vol] 1.120 mg/dL High 0.550-1.020 [facility] Comment on above: Order Comment: CONSE RVATION Performed By: #### L 600.73358 #### Test performed at: [address] [address] Glucose [Mass/Vol] 97 mg/dL Normal 70-99 [facility] Comment on above: Order Comment: CONSE RVATION Result Comment: Fast ing GLUCOSE reference range has been updated per (ADA) [place] Diabetes [employer]'s recommendation. 12/23/2018 Performed By: #### L 600.63333 #### Test performed at: [address] [address] OSM 292 mosm/kg Normal 270-300 [facility] Comment on above: Order Comment: CONSE RVATION Performed By: #### L 600.20980 #### Test performed at: [address] [address] Potassium [Moles/Vol] 4.5 mmol/L Normal 3.5-5.1 [facility] Comment on above: Order Comment: CONSE RVATION Performed By: #### L 600.40547 #### Test performed at: [address] [address] Sodium [Moles/Vol] 138 mmol/L Normal 136-145 [facility] Comment on above: Order Comment: CONSE RVATION Performed By: #### L 600.49342 #### Test performed at: [address] [address] Urea nitrogen [Mass/Vol] 31 mg/dL High 7-18 [facility] Comment on above: Order Comment: CONSE RVATION Performed By: #### L 600.22866 #### Test performed at: [address] [address] CBCon 11-29-2019 Erythrocyte distribution width (RBC) [Ratio] 15.5 % High 11.5-14.5 [facility] Comment on above: Order Comment: CONSE RVATION Performed By: #### L 600.56831 #### Test performed at: [place] [id number] Hematocrit (Bld) [Volume fraction] 40.9 % Normal 36.0-48.0 [facility] Comment on above: Order Comment: CONSE RVATION Performed By: #### L 600.90451 #### Test performed at: [place] [address] Hemoglobin (Bld) [Mass/Vol] 13.4 g/dL Normal 12.0-15.0 [facility] Comment on above: Order Comment: CONSE RVATION Performed By: #### L 600.00801 #### Test performed at: [address] [address] MCH (RBC) [Entitic mass] 30.8 pg Normal 25.4-34.6 [facility] Comment on above: Order Comment: CONSE RVATION Performed By: #### L 600.34113 #### Test performed at: [address] [address] MCHC (RBC) [Mass/Vol] 32.8 g/dL Normal 31.5-36.5 [facility] Comment on above: Order Comment: CONSE RVATION Performed By: #### L 600.49210 #### Test performed at: [address] [address] MCV (RBC) [Entitic vol] 94.0 fL Normal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 Updated By: Bernadette Arenas; 08/03/2015 4:04:31 PM GuaiFENesin 100 MG/5ML SYRP; USE DIRECTED NEEDED; Therapy: 03Aug2015 to Recorded Dispense: 0 Days ; #: Sufficient ML; Refill: 0; EARL = N; Record; Last Updated By: Bernadette Arenas; 08/03/2015 4:04:31 PM Lidocaine 5 % External Patch; APPLY DIRECTED; Therapy: (Recorded:83Lgg7654) to Recorded Dispense: 0 Days ; #: [...] Vital Signs Recorded: 12Dec2018 10:53AM Heart Rate94 Cnetmegw168 Bwibayenw35 Height5 ft 6 in Nwkekl172 lb BMI Gfiqathozo16.73 BSA Calculated1.9 Pain Scale10/10 Physical Exam Constitutional: [...] as risks benefits [place]. [place] [address]. -PT for neck. 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/16/2015, Ultrasound-guided access to bilateral common [...] Meds Acidophilus Oral Capsule; TAKE DIRECTED; Therapy: (Recorded:95Rzc2621) to Recorded Dispense: 0 Days ; #: Sufficient Capsule; Refill: 0;For: Health Maintenance; EARL = N; Record; Last Updated By: Bernadette Arenas; 09/01/2015 1:18:49 PM Docusate Sodium 100 MG Oral Capsule; TAKE 1 CAPSULE TWICE DAILY; Therapy: (Recorded:65Pmx8747) to Recorded Dispense: 0 Days ; #: [...] 3350 Oral Powder; USE DIRECTED NEEDED; Therapy: (Recorded:[id number]) to Recorded Dispense: 0 Days ; #: Sufficient GM; Refill: 0;For: Health Maintenance; EARL = N; Record; Last Updated By: Bernadette Arenas; 09/01/2015 1:18:50 PM Vitamin B1 100 MG TABS; TAKE 1 TABLET DAILY DIRECTED; Therapy: (Recorded:16Vna5082) to Recorded Dispense: 0 Days ; #: [...] MG TABS; Take 1 tablet daily; Therapy: (Recorded:69Feq2055) to Recorded Dispense: 0 Days ; #: [...] Oral Tablet; Take 1 tablet daily; Therapy: (Recorded:64Wqh0442) to Recorded Dispense: 0 Days ; #: Sufficient Tablet; Refill: 0; EARL = N; Record; Last Updated By: Bernadette Arenas; 09/01/2015 1:18:50 PM Cyclobenzaprine HCl - 5 MG Oral Tablet; TAKE 1 TABLET 3 times daily as directed; Therapy: 03Aug2015 to Recorded Dispense: 0 Days ; #: Sufficient Tablet; Refill: 0; EARL = N; Record; Last Updated By: Bernadette Arneas; 08/03/2015 4:04:31 PM DuoNeb 0.5-2.5 (3) MG/3ML SOLN; USE DIRECTED NEEDED; Therapy: (Recorded:55Vdm0914) to Recorded Dispense: 0 Days ; #: Sufficient; Refill: 0; EARL = N; Record; Last Updated By: Bernadette Arenas; 09/01/2015 1:18:50 PM Gabapentin 300 MG Oral Capsule; USE DIRECTED NEEDED; Therapy: 10Jun2014 to (Evaluate:63Ehh6494) Recorded Dispense: 0 Days ; #: Sufficient Capsule; Refill: 0; EARL = N; Record; Last Updated By: Bernadette Arenas; 08/03/2015 4:04:31 PM GuaiFENesin 100 MG/5ML SYRP; USE DIRECTED NEEDED; Therapy: 03Aug2015 to Recorded Dispense: 0 Days ; #: Sufficient ML; Refill: 0; EARL = N; Record; Last Updated By: Bernadette Arenas; 08/03/2015 4:04:31 PM Lidocaine 5 % External Patch; APPLY DIRECTED; Therapy: (Recorded:10Azx0176) to Recorded Dispense: 0 Days ; #: [...] 08/03/2015 4:04:31 PM Vitals Vital Signs Recorded: 43Tkc7657 12:51PM Heart Rate98 Ssnloifr905 Qqykogubj19 Physical Exam Constitutional: General appearance is abnormal. [...] and time. Recent/remote memory as evidenced through krkl-vi-uvbt interaction and discussion appear grossly intact. Mood [...] Hold For - Scheduling,Retrospective Authorization Requested for: [id number] Ordered;For: Cervical radicular pain; Ordered By: Myke Burdick Performed: Due: 94Tyq2139; Last Updated By: Brittany Rogers; 11/18/2018 1:22:07 PM MRI Cervical without Contrast; Status:Active; Requested for:04Dec2018; Perform:[facility];Ordered; For:Cervical radicular [...] Nov 20 2018 11:18AM EST (Author) Normal [facility] Initial Visit (Rheumatology) on 10-29-2018 Initial Visit [...] 2017. 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 Vitals Vital Signs Recorded: 29Oct2018 11:29AM Ozmlvewsuni77.8 F Heart Rate93 Whyfvnox555 Fzhzekaoj96 Height5 ft 6 in Fnxlas206 lb BMI Ygmfslighb59.73 BSA Calculated1.9 Physical Exam General: appears well. [...] View; Status:Hold For - Scheduling; Requested for:29Oct2018; Perform:[facility]; Due:27Jan2019;Ordered; For:Cervical [...] assay SARS-CoV-2 (COVID-19) Ag IA.rapid Ql (Resp) [facility] Work Phone: Vital Signs Date Time Vital Sign Value Performing Clinician Facility 12-11-2024 19:00-0400 Diastolic blood pressure 76 mm[Hg] Dr. Leonie Peterson MD Work Phone: [facility] 12-11-2024 19:00-0400 Heart rate 72 /min Dr. Leonie Peterson MD Work Phone: [facility] 12-11-2024 19:00-0400 Respiratory rate 16 /min Dr. Leonie Peterson MD Work Phone: [facility] 12-11-2024 19:00-0400 SaO2% (BldA) [Mass fraction] 96 % Dr. Leonie Peterson MD Work Phone: [facility] 12-11-2024 19:00-0400 Systolic blood pressure 148 mm[Hg] Dr. Leonie Peterson MD Work Phone: [facility] 12-11-2024 18:00-0400 Inhaled oxygen flow rate 2 L/min Dr. Leonie Peterson MD Work Phone: [facility] 12-11-2024 15:46-0400 Body mass index (BMI) [Ratio] 33.7 kg/m2 Dr. Leonie Peterson MD Work Phone: [facility] 12-11-2024 15:46-0400 Body weight [address] Leonie Peterson MD Work Phone: 5(347)203-638380 [place] [address] 12-11-2024 15:44-0400 Body height 167.[address] Leonie Peterson MD Work Phone: 5(723)986-802180 [place] [address] 12-11-2024 15:44-0400 Body temperature 97.4 [degF] Dr. Leonie Peterson MD Work Phone: 6(377)538-060380 [place] [address] 11-23-2024 17:05-0500 Body temperature 97.3 [degF] Dr. Leonie Peterson MD Work Phone: 6(250)567-777780 [place] [address] 11-23-2024 17:05-0500 Diastolic blood pressure 71 mm[Hg] Dr. Leonie Peterson MD Work Phone: 5(093)073-435280 [place] [address] 11-23-2024 17:05-0500 Heart rate 86 /min Dr. Leonie Peterson MD Work Phone: 7(926)790-685580 [place] [address] 11-23-2024 17:05-0500 Inhaled oxygen flow rate 2 L/min Dr. Leonie Peterson MD Work Phone: 7(762)954-833480 [place] [address] 11-23-2024 17:05-0500 Respiratory rate 20 /min Dr. Leonie Peterson MD Work Phone: 0(428)806-160280 [place] [address] 11-23-2024 17:05-0500 SaO2% (BldA) [Mass fraction] 99 % Dr. Leonie Peterson MD Work Phone: 1(754)363-079880 [place] [address] 11-23-2024 17:05-0500 Systolic blood pressure 115 mm[Hg] Dr. Leonie Peterson MD Work Phone: 0(027)511-567880 [place] [address] 11-23-2024 03:11-0500 Body mass index (BMI) [Ratio] 33 kg/m2 Dr. Leonie Peterson MD Work Phone: 5(262)276-281580 [place] [address] 11-23-2024 03:11-0500 Body weight [address] Leonie Peterson MD Work Phone: 2(101)128-500180 [place] [address] 11-21-2023 18:05-0500 Body temperature 97.1 [degF] Dr. Aquiles Jones Work Phone: [facility] 11-21-2023 18:05-0500 Diastolic blood pressure 82 mm[Hg] Dr. Aquiles Jones Work Phone: [facility] 11-21-2023 18:05-0500 Heart rate 83 /min Dr. Aquiles Jones Work Phone: [facility] 11-21-2023 18:05-0500 Respiratory rate 17 /min Dr. Aquiles Jones Work Phone: [facility] 11-21-2023 18:05-0500 SaO2% (BldA) [Mass fraction] 99 % Dr. Aquiles Jones Work Phone: [facility] 11-21-2023 18:05-0500 Systolic blood pressure 124 mm[Hg] Dr. Aquiles Jones Work Phone: [facility] 11-21-2023 16:54-0500 Inhaled oxygen flow rate 2 L/min Dr. Aquiles Jones Work Phone: [facility] 11-21-2023 11:32-0500 Body mass index (BMI) [Ratio] 34 kg/m2 Dr. Aquiles Jones Work Phone: [facility] 11-21-2023 11:32-0500 Body weight 95.[address] Aquiles Jones Work Phone: [facility] 11-21-2023 11:24-0500 Body height 167.[address] Aquiles Jones Work Phone: [facility] 11-10-2023 18:41-0500 Body height 167.[address] Aquiles Jones Work Phone: [facility] 11-10-2023 18:41-0500 Body mass index (BMI) [Ratio] 35 kg/m2 Dr. Aquiles Jones Work Phone: [facility] 11-10-2023 18:41-0500 Body temperature 97.3 [degF] Dr. Aquiles Jones Work Phone: [facility] 11-10-2023 18:41-0500 Body weight 98.[address] Aquiles Jones Work Phone: [facility] 11-10-2023 18:41-0500 Diastolic blood pressure 94 mm[Hg] Dr. Aquiles Jones Work Phone: [facility] 11-10-2023 18:41-0500 Heart rate 92 /min Dr. Aquiles Jones Work Phone: [facility] 11-10-2023 18:41-0500 Respiratory rate 16 /min Dr. Aquiles Jones Work Phone: [facility] 11-10-2023 18:41-0500 SaO2% (BldA) [Mass fraction] 99 % Dr. Aquiles Jones Work Phone: [facility] 11-10-2023 18:41-0500 Systolic blood pressure 182 mm[Hg] Dr. Aquiles Jones Work Phone: [facility] 08-12-2023 14:00-0500 Inhaled oxygen flow rate 2 L/min Dr. Leonie Peterson Work Phone: [facility] 08-12-2023 14:00-0500 SaO2% (BldA) [Mass fraction] 99 % Dr. Leonie Peterson Work Phone: [facility] 08-12-2023 13:28-0500 Body temperature 97.8 [degF] Dr. Leonie Peterson Work Phone: [facility] 08-12-2023 13:28-0500 Diastolic blood pressure 48 mm[Hg] Dr. Leonie Peterson Work Phone: [facility] 08-12-2023 13:28-0500 Heart rate 87 /min Dr. Leonie Peterson Work Phone: [facility] 08-12-2023 13:28-0500 Respiratory rate 18 /min Dr. Leonie Peterson Work Phone: 4(867)894-050480 [place] [address] 08-12-2023 13:28-0500 Systolic blood pressure 105 mm[Hg] Dr. Leonie Peterson Work Phone: 1(038)605-357680 [place] [address] 08-12-2023 04:00-0500 Body mass index (BMI) [Ratio] 30.3 kg/m2 Dr. Leonie Peterson Work Phone: 0(004)718-284280 [place] [address] 08-12-2023 04:00-0500 Body weight 85.[address] Leonie Peterson Work Phone: 6(399)349-465880 [place] [address] 08-05-2023 08:52-0500 Body height 167.[address] Leonie Peterson Work Phone: 7(184)482-614780 [place] [address] 08-05-2023 07:59-0500 Diastolic blood pressure 97 mm[Hg] Dr. Leonie Peterson Work Phone: 7(222)203-578880 [place] [address] 08-05-2023 07:59-0500 Heart rate 89 /min Dr. Leonie Peterson Work Phone: 7(962)864-622580 [place] [address] 08-05-2023 07:59-0500 Respiratory rate 16 /min Dr. Leonie Peterson Work Phone: 4(342)015-720480 [place] [address] 08-05-2023 07:59-0500 SaO2% (BldA) [Mass fraction] 98 % Dr. Leonie Peterson Work Phone: 4(166)845-873080 [place] [address] 08-05-2023 07:59-0500 Systolic blood pressure 112 mm[Hg] Dr. Leonie Peterson Work Phone: 6(976)096-336280 [place] [address] 08-05-2023 04:58-0500 Inhaled oxygen flow rate 2 L/min Dr. Leonie Peterson Work Phone: 3(431)606-317280 [place] [address] 08-05-2023 02:19-0500 Body height 167.[address] Leonie Peterson Work Phone: 9(433)477-817780 [place] [address] 08-05-2023 02:19-0500 Body mass index (BMI) [Ratio] 39.1 kg/m2 Dr. Leonie Peterson Work Phone: 8(495)385-653580 [place] [address] 08-05-2023 02:19-0500 Body temperature 96.9 [degF] Dr. Leonie Peterson Work Phone: 8(879)375-805980 [place] [address] 08-05-2023 02:19-0500 Body weight 109.[address] Leonie Peterson Work Phone: 9(535)715-209980 [place] [address] 06-04-2023 12:45-0400 Body height 167.[address] Leonie Peterson Work Phone: 9(328)630-084080 [place] [address] 06-04-2023 12:45-0400 Body temperature 98.6 [degF] Dr. Leonie Peterson Work Phone: 7(398)871-619080 [place] [address] 06-04-2023 12:45-0400 Diastolic blood pressure 88 mm[Hg] Dr. Leonie Peterson Work Phone: 4(204)437-075880 [place] [address] 06-04-2023 12:45-0400 Heart rate 89 /min Dr. Leonie Peterson Work Phone: 2(271)552-816280 [place] [address] 06-04-2023 12:45-0400 Inhaled oxygen flow rate 3 L/min Dr. Leonie Peterson Work Phone: 9(804)075-225880 [place] [address] 06-04-2023 12:45-0400 Respiratory rate 20 /min Dr. Leonie Peterson Work Phone: 7(484)790-064980 [place] [address] 06-04-2023 12:45-0400 SaO2% (BldA) [Mass fraction] 92 % Dr. Leonie Peterson Work Phone: 3(888)859-826780 [place] [address] 06-04-2023 12:45-0400 Systolic blood pressure 99 mm[Hg] Dr. Leonie Peterson Work Phone: 0(059)030-466980 [place] [address] 04-29-2023 14:12-0400 Body mass index (BMI) [Ratio] 35.4 kg/m2 Dr. Lenoie Peterson Work Phone: 6(429)156-407880 [place] [address] 04-29-2023 14:12-0400 Body temperature 98.2 [degF] Dr. Leonie Peterson Work Phone: 5(532)003-974980 [place] [address] 04-29-2023 14:12-0400 Body weight 99.[address] Leonie Peterson Work Phone: 7(699)943-640380 [place] [address] 04-29-2023 14:12-0400 Diastolic blood pressure 82 mm[Hg] Dr. Leonie Peterson Work Phone: 3(031)542-858480 [place] [address] 04-29-2023 14:12-0400 Heart rate 78 /min Dr. Leonie Peterson Work Phone: 4(181)532-055680 [place] [address] 04-29-2023 14:12-0400 Respiratory rate 22 /min Dr. Leonie Peterson Work Phone: 0(606)920-464480 [place] [address] 04-29-2023 14:12-0400 Systolic blood pressure 128 mm[Hg] Dr. Leonie Peterson Work Phone: 8(646)893-773180 [place] [address] 04-13-2023 10:31-0400 Body height 167.[address] Leonie Peterson Work Phone: 3(468)324-095280 [place] [address] 04-13-2023 10:31-0400 Body mass index (BMI) [Ratio] 35.8 kg/m2 Dr. Leonie Peterson Work Phone: 3(245)909-656680 [place] [address] 04-13-2023 10:31-0400 Body temperature 97.9 [degF] Dr. Leonie Petesron Work Phone: 2(396)084-295780 [place] [address] 04-13-2023 10:31-0400 Body weight 100.[address] Leonie Peterson Work Phone: 9(059)410-754180 [place] [address] 04-13-2023 10:31-0400 Diastolic blood pressure 134 mm[Hg] Dr. Leonie Peterson Work Phone: 9(299)747-942780 [place] [address] 04-13-2023 10:31-0400 Heart rate 88 /min Dr. Leonie Peterson Work Phone: 7(649)063-430680 [place] [address] 04-13-2023 10:31-0400 Inhaled oxygen flow rate 3 L/min Dr. Leonie Peterson Work Phone: 9(089)695-608481 [place] [address] 04-13-2023 10:31-0400 Respiratory rate 16 /min Dr. Leonie Peterson Work Phone: 4(743)217-088080 [place] [address] 04-13-2023 10:31-0400 SaO2% (BldA) [Mass fraction] 96 % Dr. Leonie Peterson Work Phone: 0(552)656-163080 [place] [address] 04-13-2023 10:31-0400 Systolic blood pressure 181 mm[Hg] Dr. Leonie Peterson Work Phone: 9(097)827-037680 [place] [address] 02-15-2023 17:34-0400 Diastolic blood pressure 75 mm[Hg] Dr. Leonie Peterson Work Phone: 7(823)013-389380 [place] [address] 02-15-2023 17:34-0400 Heart rate 76 /min Dr. Leonie Peterson Work Phone: 0(419)115-745280 [place] [address] 02-15-2023 17:34-0400 Respiratory rate 14 /min Dr. Leonie Peterson Work Phone: 5(031)861-325580 [place] [address] 02-15-2023 17:34-0400 SaO2% (BldA) [Mass fraction] 99 % Dr. Leonie Peterson Work Phone: 0(537)765-289680 [place] [address] 02-15-2023 17:34-0400 Systolic blood pressure 106 mm[Hg] Dr. Leonie Peterson Work Phone: 9(007)095-854280 [place] [address] 02-15-2023 14:53-0400 Body mass index (BMI) [Ratio] 36.6 kg/m2 Dr. Leonie Peterson Work Phone: 7(261)257-587480 [place] [address] 02-15-2023 14:53-0400 Body temperature 98 [degF] Dr. Leonie Peterson Work Phone: 7(697)483-116580 [place] [address] 02-15-2023 14:53-0400 Body weight [address] Leonie Peterson Work Phone: 8(112)549-833080 [place] [address] 02-15-2023 13:00-0400 Body mass index (BMI) [Ratio] 35.6 kg/m2 Dr. Leonie Peterson Work Phone: 7(128)172-492880 [place] [address] 02-15-2023 13:00-0400 Body weight 100.[address] Leonie Peterson Work Phone: [facility] 02-15-2023 13:00-0400 Diastolic blood pressure 73 mm[Hg] Dr. Leonie Peterson Work Phone: [facility] 02-15-2023 13:00-0400 Heart rate 89 /min Dr. Leonie Peterson Work Phone: [facility] 02-15-2023 13:00-0400 Inhaled oxygen flow rate 3 L/min Dr. Leonie Peterson Work Phone: [facility] 02-15-2023 13:00-0400 Respiratory rate 18 /min Dr. Leonie Peterson Work Phone: [facility] 02-15-2023 13:00-0400 SaO2% (BldA) [Mass fraction] 9 % Dr. Leonie Peterson Work Phone: [facility] 02-15-2023 13:00-0400 Systolic blood pressure 124 mm[Hg] Dr. Leonie Peterson Work Phone: [facility] 10-22-2022 15:58-0500 Body height 167.64 cm [facility] 10-22-2022 15:58-0500 Body mass index (BMI) [Ratio] 33.9 kg/m2 [facility] 10-22-2022 15:58-0500 Body temperature 97 [degF] [facility] 10-22-2022 15:58-0500 Body weight 95.25 kg [facility] 10-22-2022 15:58-0500 Diastolic blood pressure 86 mm[Hg] [facility] 10-22-2022 15:58-0500 Heart rate 85 /min [facility] 10-22-2022 15:58-0500 Respiratory rate 18 /min [facility] 10-22-2022 15:58-0500 SaO2% (BldA) [Mass fraction] 100 % [facility] 10-22-2022 15:58-0500 Systolic blood pressure 122 mm[Hg] [facility] 07-30-2022 15:57-0400 Respiratory rate 18 /min [facility] 07-30-2022 15:57-0400 SaO2% (BldA) [Mass fraction] 97 % [facility] 07-30-2022 14:34-0400 Heart rate 98 /min [facility] 07-30-2022 14:03-0400 Inhaled oxygen flow rate 3 L/min [facility] 07-30-2022 12:33-0400 Body height 167.64 cm [facility] Work Phone: 07-30-2022 12:33-0400 Body mass index (BMI) [Ratio] 32.9 kg/m2 [facility] 07-30-2022 12:33-0400 Body temperature 97.8 [degF] [facility] 07-30-2022 12:33-0400 Body weight 92.53 kg [facility] 07-30-2022 12:33-0400 Diastolic blood pressure 93 mm[Hg] [facility] 07-30-2022 12:33-0400 Systolic blood pressure 140 mm[Hg] [facility] 04-13-2020 18:51-0400 Body Temperature 98.4 [degF] [facility] [place] 04-13-2020 18:51-0400 BP Diastolic 84 mm[Hg] [facility] , [place] 04-13-2020 18:51-0400 BP Systolic 145 mm[Hg] [facility] , [place] 04-13-2020 18:51-0400 Pulse (Heart Rate) 79 /min [facility] 04-13-2020 18:51-0400 Pulse Oximetry 95 % [facility] , [place] 04-13-2020 18:51-0400 Respiratory Rate 18 /min [facility] 04-13-2020 09:30-0400 BMI (Body Mass Index) 16.94 kg/m2 [facility] 04-13-2020 09:30-0400 Body weight 47.6 kg Tommie Odonnell [facility] PATRICIA Comment on above: pt states she has lost weight r/t daily cocaine use over the past year 04-13-2020 08:58-0400 Height 167.6 cm Tommie Longoria [facility] PATRICIA 06-12-2019 00:29-0400 Body temperature 37.0 degrees C [facility] Comment on above: Result Comment: NOTE: PATIENT RESULTS AR E NOT CORRECTED FOR TEMPERATURE. Performed By: #### V FPA3 #### [facility] [id number] [address] Encounters Encounter Date Encounter Type Care Provider Facility Start: 07-12-2025 End: 07-12-2025 ambulatory [facility] Facility:[facility] Start: 07-12-2025 Patient encounter procedure LEONIE [facility] Start: 06-22-2025 End: 06-22-2025 ambulatory CHRISTA FRANZ Facility:[facility] Start: 06-01-2025 End: 06-01-2025 [facility] Start: 05-11-[facility]25 [facility] Start: 05-11-2025 End: 05-11-2025 ambulatory HAYLEE WANG Facility:[facility] Start: 04-09-2025 End: 04-09-2025 ambulatory ELI BRAGG Facility:[facility] Start: 03-23-2025 End: 03-23-2025 ambulatory CHRISTA FRANZ Facility:[facility] Start: 03-01-2025 End: 03-01-2025 [facility] Start: 02-23-2025 End: 02-23-2025 ambulatory CHRISTA FRANZ Facility:[facility] Start: 02-05-2025 ambulatory HAYLEE WANG Facil ity:[facility] Start: 02-05-2025 End: 02-05-2025 ambulatory HAYLEE WANG Facility:[facility] Start: 02-02-2025 End: 02-02-2025 ambulatory TRACEY GOINS Facility:[facility] Start: 01-01-2025 End: 01-01-2025 ambulatory ELI OLDER Facility:[facility] Start: 12-21-2024 End: 12-21-2024 ambulatory ELHAM DOMINGUEZ Facility:[facility] Start: 12-18-2024 End: 12-18-2024 ambulatory PRITCHETT OLDER Facility:[facility] Start: 12-11-2024 End: 12-11-2024 Emergency department patient visit Titi Jesus Facility:[facility] Start: 12-11-2024 End: 12-11-2024 ambulatory PRITCHETT OLDER Facility:[facility] Start: 12-10-2024 End: 12-10-2024 ambulatory [facility] Facility:[facility] Start: 11-23-2024 Non-patient / Non-visit Dr. Stephenie velasco MD -[facility] Work Phone: Start: 11-23-2024 Non-patient / Non-visit Dr. Elizabeth Corley MD -[facility] Start: 11-22-2024 Non-patient / Non-visit Dr. Elizabeth Kenny MD [facility] Work Phone: Start: 11-21-2024 Non-patient / Non-visit Dr. Elizabeth Kenny MD [facility] Work Phone: Start: 11-20-2024 Non-patient / Non-visit Dr. Elizabeth Kenny MD [facility] Work Phone: Start: 11-20-2024 Non-patient / Non-visit Dr. Zeyad Urbina own [facility] Start: 11-19-2024 Non-patient / Non-visit Dr. Elizabeth Kenny MD [facility] Work Phone: Start: 11-19-2024 Non-patient / Non-visit Dr. Zeyad Urbina own [facility] Start: 11-18-2024 ambulatory Alexia Jeffery [facility] Start: 11-18-2024 Non-patient / Non-[facility] Start: 11-17-2024 End: 11-17-2024 ambulatory Alexia Gil Facility:[facility] Start: 11-17-2024 End: 11-17-2024 Non-patient / Non-visit Dr. Alexia Gil MD -[facility] Work Phone: Start: 11-17-2024 ambulatory Stephenie Yu [facility] Start: 11-17-2024 End: 11-23-2024 Evaluation and management of inpatient Stepheniegreg Yu Facility:[facility] Start: 11-17-2024 ambulatory [facility] Facility:[facility] Start: 11-09-2024 End: 11-09-2024 ambulatory MYKE CHONG Facility:[facility] Start: 10-30-2024 End: 10-30-2024 ambulatory ELI BRAGG Facility:[facility] Start: 10-27-2024 End: 10-27-2024 ambulatory YUE FRANKS [facility] Start: 09-21-2024 End: 09-21-2024 [facility] Start: 09-15-2024 End: 09-15-2024 ambulatory YUE FRANKS [facility] Start: 08-21-2024 ambulatory Leonie Ganta Facility:[facility] Start: 08-18-2024 End: 08-18-2024 ambulatory DOMINICK PAYTON Facility:[facility] Start: 08-14-2024 End: 08-14-2024 ambulatory LISS STUBBS Facility:[facility] Start: 08-07-2024 End: 08-09-2024 ambulatory [facility] Facility[facility] Start: 07-31-2024 End: 07-31-2024 ambulatory ELI [facility] Facility:[facility] Start: 07-29-2024 End: 07-29-2024 ambulatory HAYLEE WANG Facility:[facility] Start: 07-22-2024 Encounter for other preprocedural examination ELHAM [facility] Start: 07-22-2024 End: 07-22-2024 ambulatory ELHAM RAMANITALO GARCIAVinnie Facility:[facility] Start: 07-21-2024 End: 07-21-2024 ambulatory TRACEY GOINS Facility:[facility] Start: 06-23-2024 End: 06-23-2024 ambulatory DOMINICK PAYTON Facility:[facility] Start: 04-29-2024 End: 04-29-2024 ambulatory Stef Donald Facility:[facility] Start: 04-14-2024 ambulatory Leonei Peterson [facility] Start: 03-30-2024 ambulatory Stef Bennett Facility :[facility] Start: 03-24-2024 End: 03-24-2024 ambulatory DOMINICK PAYTON Facility:[facility] Start: 12-17-2023 End: 12-17-2023 ambulatory DOMINICKUSMAN PAYTON Facility:[facility] Start: 11-21-2023 End: 11-21-2023 Emergency department patient visit Dr. Aquiles Jones Work Phone: [facility] Work Phone: Start: 11-10-2023 End: 11-10-2023 Emergency department patient visit Dr. Aquiles Jones Work Phone: [facility] Work Phone: Start: 11-05-2023 End: 11-05-2023 ambulatory DOMINICK RASHAUN BAUGHIT Facility:[facility] Start: 08-13-[address] Aquiles gupta Work Phone: [facility] Start: 08-12-2023 Non-patient / Non-visit Dr. Sanjuana Peterson Work Phone: [facility] Work Phone: Start: 08-12-2023 End: 08-12-2023 Non-patient / Non-visit Dr. Aquiles Jones Work Phone: [facility] Work Phone: Start: 08-11-2023 Non-patient / Non-visit Dr. Sanjuana Peterson Work Phone: [facility] Work Phone: Start: 08-10-2023 Non-patient / Non-visit Dr. Sanjuana Peterson Work Phone: [facility] Work Phone: Start: 08-09-2023 Non-patient / Non-visit Dr. Sanjuana Peterson Work Phone: [facility] Work Phone: Start: 08-08-2023 Non-patient / Non-visit Dr. Sanjuana Peterson Work Phone: [facility] Work Phone: Start: 08-07-2023 Non-patient / Non-visit Dr. Sanjuana Peterson Work Phone: [facility] Start: 08-07-2023 Non-patient / Non-visit Dr. Sanjuana Peterson Work Phone: [facility] Work Phone: Start: 08-06-2023 Non-patient / Non-visit Dr. Sanjuana Peterson Work Phone: [facility] Start: 08-06-2023 Non-patient / Non-visit Dr. Sanjuana Peterson Work Phone: [facility] Work Phone: Start: 08-05-2023 Non-patient / Non-visit Dr. Sanjuana Peterson Work Phone: [facility] Start: 08-05-2023 End: 08-12-2023 Evaluation and management of inpatient Dr. Leonie Peterson Work Phone: [facility]-Progressive Care Unit Work Phone: Start: 08-05-2023 End: 08-12-[address] Leonie Peterson Work Phone: [facility] Work Phone: Start: 06-24-2023 End: 06-24-[address] Leonie Peterson Work Phone: [facility] Work Phone: Start: 06-24-2023 End: 06-24-[address] Leonie Peterson Work Phone: [facility]-Occupational Therapy Work Phone: Start: 06-20-[address] Luba Peterson Work Phone: [facility] Work Phone: Start: 06-17-2023 End: 06-17-[address] Leonie Peterson Work Phone: [facility] Work Phone: Start: 06-17-2023 End: 06-17-[address] Leonie Peterson Work Phone: [facility] Work Phone: Start: 06-04-2023 End: 06-04-2023 Emergency department patient visit Dr. Leonie Peterson Work Phone: [facility]-Emergency Department Work Phone: Start: 05-29-[address] Luba Peterson Work Phone: [facility]Occupational Therapy Work Phone: Start: 05-23-2023 End: 05-23-[address] Leonie Peterson Work Phone: [facility] Work Phone: Start: 04-29-2023 End: 04-29-[address] Leonie Peterson Work Phone: [facility] Work Phone: Start: 04-13-2023 End: 04-13-2023 Emergency department patient visit Dr. Leonie Peterson Work Phone: [facility]-Emergency Department Work Phone: Start: 02-15-2023 End: 02-15-2023 Emergency department patient visit Dr. Leonie Peterson Work Phone: [facility]Emergency Department Work Phone: Start: 02-15-[address] Leonie Peterson Work Phone: [facility] Start: 02-15-2023 End: 02-15-2023 Admission to same day surgery center Dr. Leonie Peterson Work Phone: [facility] Start: 02-15-2023 End: 02-15-[address] Leonie Peterson Work Phone: [facility] Work Phone: Start: 01-29-2023 End: 01-29-[address] Leonie Peterson Work Phone: [facility]-Pulmonary Services/Neurology Work Phone: Start: 01-14-2023 End: 01-14-[address] Leonie Peterson Work Phone: [facility] Work Phone: Start: 01-14-2023 End: 01-14-[address] Leonie Peterson Work Phone: [facility] Start: 10-22-2022 End: 10-22-2022 Emergency department patient visit [facility]Emergency Department Start: 09-19-2022 End: 09-19-2022 ambulatory [facility] Work Phone: Start: 09-19-2022 End: 09-19-2022 Discharged Recurring [facility]Physical Therapy Start: 07-30-2022 End: 07-30-2022 Emergency department patient visit [facility]gency [facility] Start: 04-13-2020 End: 04-13-2020 Emergency department patient visit Tommie Odonnell Work Phone: [facility] Emergency Dept Comment on above: Cocaine abuse (HCC) (Primary Dx) Start: 12-12-2019 End: 12-13-2019 Emergency department patient visit LUCIANO LAWRENCE Facility:[facility] Start: 01-05-2019 End: 01-05-2019 Patient encounter procedure Myke Burdick Facility:[facility] Start: 12-12-2018 Patient encounter procedure Myke Burdick Facility:[facility] Start: 11-18-2018 Patient encounter procedure Myke Burdick Facility:[facility] Procedures Date Procedure Procedure Detail Performing Clinician Start: 06-22-2025 Echocardiography LORI DOMINGUEZ Start: 12-11-2024 CT angiography of ch est with contrast Dr. Leonie Peterson MD Work Phone: Start: 11-23-2024 Cardiovascular stres s test using pharmacologic stress agent Dr. Leonie Peterson MD Work Phone: Start: 11-19-2024 Legionella [...] Activity Detail Author Start: 12-11-2024 End: 12-11-2024 [facility] Start: 12-11-2024 [facility] Start: 11-23-2024 Patient discharge [facility] Start: 11-22-2024 [facility] Start: 11-20-2024 [facility] Start: 11-19-2024 Physiotherapy of chest [facility] Start: 11-19-2024 Consultation [facility] Start: 11-17-2024 Respiratory secretion precautions [facility] Start: 11-17-2024 Following clinical pathway protocol [facility] Start: 11-17-2024 Assessment of risk of venous thromboembolism [facility] Start: 11-17-2024 Insertion of catheter into peripheral vein [facility] Start: 11-17-2024 Measuring intake and output [facility] Start: 11-17-2024 Oxygen therapy [facility] Start: 11-17-2024 Providing care according to standard [facility] Start: 11-17-2024 Provision of activity privileges [facility] Start: 11-17-2024 Referral to occupational therapist [facility] Start: 11-17-2024 Referral to service [facility] Start: 11-17-2024 [facility] Start: 11-17-2024 Admission procedure [facility] Start: 11-17-2024 Inhalation therapy procedure [facility] Start: 11-17-2024 [facility] Start: 11-21-2023 [facility] Start: 11-10-2023 [facility] Start: 08-12-2023 Patient discharge [facility] Start: 08-08-2023 Care planning and problem solving actions [facility] Start: 08-08-2023 Referral to occupational therapist [facility] Start: 08-08-2023 Referral to service [facility] Start: 08-08-2023 Physiotherapy of chest [facility] Start: 08-06-2023 End: 08-07-2023 [facility] Start: 08-05-2023 [facility] Start: 08-05-2023 Following clinical pathway protocol [facility] Start: 08-05-2023 Assessment of risk of venous thromboembolism [facility] Start: 08-05-2023 Care of central venous catheter [facility] Start: 08-05-2023 Inhalation therapy procedure [facility] Start: 08-05-2023 Insertion of catheter into peripheral vein [facility] Start: 08-05-2023 Introduction of urinary catheter [facility] Start: 08-05-2023 Measuring intake and output [facility] Start: 08-05-2023 Oxygen therapy [facility] Start: 08-05-2023 Providing care according to standard [facility] Start: 08-05-2023 Provision of activity privileges [facility] Start: 08-05-2023 Referral to service [facility] Start: 08-05-2023 [facility] Start: 08-05-2023 Hospital admission, emergency, from emergency room, medical nature [facility] Start: 08-05-2023 Troponin I measurement [facility] Start: 08-05-2023 Verification routine [facility] Start: 08-05-2023 Admission procedure [facility] Start: 08-05-2023 CT angiography of chest with contrast CTA Chest W/WO Contrast [facility] Start: 08-05-2023 [facility] Start: 04-13-2023 Plain x-ray of pelvis and lower extremity HIP, UNI W/ Pelvis 2-3 Views [facility] Start: 04-13-2023 XR Pelvis and Hip Views [facility] Start: 01-29-2023 Physiotherapy of chest [facility] Start: 01-14-2023 Acute hepatitis 2000 panel - Serum [facility] Start: 01-14-2023 Angiotensin converting enzyme [Enzymatic activity/volume] in Serum or Plasma [facility] Start: 01-14-2023 Ceruloplasmin [Mass/volume] in Serum or Plasma [facility] Start: 01-14-2023 Copper [Moles/volume] in Serum or Plasma [facility] Start: 01-14-2023 Haptoglobin [Mass/volume] in Serum or Plasma [facility] Start: 01-14-2023 Hepatitis A virus Ab panel - Serum [facility] Start: 01-14-2023 Hepatitis B virus genotype [Identifier] in Serum or Plasma by SHEELA with probe detection [facility] Start: 01-14-2023 Hepatitis C virus RNA assay [facility] Start: 01-14-2023 Smooth muscle Ab [Presence] in Serum [facility] Start: 01-14-2023 [facility] Start: 07-30-2022 [facility] Start: 05-31-2020 Influenza vaccination Flu vaccine (#1) [place], [place] Start: 01-19-2006 Screening for malignant neoplasm of breast Breast cancer screen [place], [place] Start: 01-19-2006 Screening for malignant neoplasm of colon Colon cancer screen colonoscopy [place] Start: 01-19-2006 Shingles Vaccine (1 of 2) Shingles Vaccine (1 of 2) [place], [place] Start: 1996 Lipid panel Lipid screen [place] Start: 01-19-1977 Screening for malignant neoplasm of cervix Cervical cancer screen [place] Start: 01-19-1975 DTaP/Tdap/Td vaccine (1 - Tdap) DTaP/Tdap/Td vaccine (1 - Tdap) [place] Start: 01-19-1971 HIV screening HIV screen [place] Start: 1956 Creatinine measurement Creatinine monitoring [place], [place] Start: 1956 Hepatitis C screening Hepatitis C screen [place], [place] Start: 1955 Potassium monitoring Potassium monitoring [place] Hepatic function panel [facility] Hepatitis A virus Ab [Presence] in Serum [facility] Hepatitis A virus Ig M Ab [Presence] in Serum [facility] Hepatitis B core ant ibody measurement, IgM type [facility] Hepatitis B surface antigen measurement [facility] Hepatitis C antibody measurement [facility] Hepatitis C virus ge notype [Identifier] in Blood by SHEELA with probe detection [facility] Liver stiffness by US.transient elastography [facility] Neutrophil cytoplasm ic Ab.classic [Units/volume] in Serum [facility] P-ANCA measurement [facility] Patient Education [facility] Work Phone: Patient referral [facility] Work Phone: PCR for Hepatitis C [facility] T4 free measurement [facility] Thyroid stimulating hormone measurement [facility] Triiodothyronine, fr ee measurement [facility] Immunizations Immunization Date Immunization Notes Care Provider Fa luis 10-19-2021 Covid (Pfizer) Dr. Leonie nuñez Work Phone: [facility] 2021 Covid (Pfizer) Dr. Leonie nuñez Work Phone: [facility] 12-23-2020 Covid (Pfizer) Dr. Leonie nuñez Work Phone: [facility] 08-17-2015 pneumococcal polysaccharide vaccine, [address] Leonie Peterson Work Phone: [facility] Payers Date Payer Category Payer Self-pay [id number] 2021 Medicare [id number] 2017 Medicaid [id number] 2017 Medicare [id number] 2016 Unknown [facility] MEDICA[facility] [id number] 2016-Present [phone] CLAIMS DEPARTMENT [address] [place] [address] [id number] 1956 Unknown [id number] 2..[id number] 1955 Unknown [id number] [id number] 1955 Unknown [id number] 2..840.1.482017.3.579.2.356 1955 Unknown [id number] 2.16.840.1.734109.3.579.2.732 Medicare [id number] Unknown [id number] 2.16.840.1.819041.3.579.2.462 Unknown [id number] 2.16.840.1.365399.3.579.2.462 Unknown [id number] 2.16.840.1.706276.3.579.2.462 Unknown [id number] 2.16.840.1.549359.3.579.2.462 Unknown [id number] 2.16.840.1.206514.3.579.2.462 Unknown [id number] 2.16.840.1.246944.3.579.2.462 Unknown [id number] 2.16.840.1.529426.3.579.2.462 Unknown [id number] 2.16.840.1.551506.3.579.2.462 Unknown [id number] 2.16.840.1.602565.3.579.2.462 Unknown [id number] 2.16.840.1.929368.3.579.2.462 Unknown [id number] 2.16.840.1.968168.3.579.2.462 Unknown [id number] 2.16.840.1.995916.3.579.2.462 Unknown [id number] 2.16.840.1.029019.3.579.2.462 Unknown [id number] 2.16.840.1.109682.3.579.2.462 Unknown [id number] 2.16.840.1.764670.3.579.2.462 Unknown [id number] 2.16.840.1.061697.3.579.2.462 Unknown [id number] 2.16.840.1.429207.3.579.2.462 Unknown [id number] 2.16.840.1.873883.3.579.2.462 Unknown [id number] 2.16.840.1.585674.3.579.2.462 Social History Date Type Detail Facility Start: 04-13-2020 Tobacco smoking stat [facility] Current every day smoker [place], [place] History of tobacco use Cigarette Smoker M [place] Start: 04-13-2020 Cigarettes smoked current (pack per day) - Reported [place] Start: 04-13-2020 Tobacco use and exposure Never used [place] Start: 04-13-2020 Alcohol intake Current drinke r of alcohol (finding) [place] Sex Assigned At [place] on file [place] Exposure to SARS-CoV -2 (event) Not sure [place] Start: 07-30-2022 End: 11-21-2023 Tobacco smoking status NHIS Unknown if ever smoked [facility] Start: 09-12-2020 None [facility] Start: 09-12-2020 Alone [facility] Start: 02-08-2021 Cigarettes [facility] Start: 1955 Sex Assigned At Female [facility] Start: 12-11-2024 Tobacco smoking stat us NHIS Ex-smoker (finding) [facility] Start: 12-11-2024 Sex Female (finding) [facility] Medical Equipment Procedure Code Equipment Code Equipment Origin al Text Equipment Identifier Dates Colonoscopy Ligation clip, metallic ([id number] [facility] Start: 04-29-2024 Goals Date Patient Goal Desired Activity /State Functional Status Date Assessment Result Facility 11-23-2024 Functional status Ambulates [facility] Work Phone: 08-12-2023 Functional status Ambulates;Bathroom Priv ilege [facility] Work Phone: Mental Status Date Assessment Result Facility 12-11-2024 Cognitive function Level Of Cons ciousness Awake;Alert;Appropriate;Follow s Commands [facility] Work Phone: 11-23-2024 Cognitive function Voice/Name [facility] Work Phone: 08-12-2023 Cognitive function Voice/Name [facility] Work Phone: 08-05-2023 Cognitive function Voice/Name [facility] Work Phone: 10-22-2022 Cognitive function Level Of Cons ciousness Awake;Alert;Appropriate;Follow s Commands [facility] Work Phone: Clinical Notes 10-22-2022 to 07-12-2025 Note Date & Type Note Facility 07-12-2025 Note [facility] 06-22-2025 Note [facility] 06-01-2025 Note [facility] 05-11-2025 Note [facility] 05-11-2025 Note [facility] 04-16-2025 Note [facility] 04-09-2025 Note [facility] 03-23-2025 Note [facility] 03-01-2025 Note [facility] 02-05-2025 Note [facility] 02-05-2025 Note [facility] 01-01-2025 Note [facility] 12-21-2024 Note [facility] 12-18-2024 Note [facility] 12-11-2024 Discharge summary [facility] 12-11-2024 Radiology Diagnostic study note [facility] Imaging Services [address] [place], [place] [address] CTA Chest W/WO Contrast MR#: [id number] Acct: [id number] Name: DIANNE ALVES Rep #: [id number] : 1955 F 69 From: Xiomara Do MD PCP: Dr. Leonie Peterson MD Status: REG E R Study:CTA Chest W/WO Contrast Date of Exam: 12/11/24 Exam# [id number] Ordering Dr: Remedios Jesus MD PROCEDURE: CTA [...] use of iterative reconstruction technique). Reading Location: [place] CC: Dr. Leonie Peterson MD; Dr. Titi Jesus MD ~ Chief Ii Dispatcher: Signed [facility] 12-11-2024 Discharge summary Note Date/Time December 11, 2024 7:36pm [facility] Medical Records Department [address] [place] [address] Emergency Department Summary 12/11/24 MR#: [id number] Acct: [id number] Name: DIANNE ALVES Rep #:[id number] : 1955 69 From: Titi Jesus MD [...] similar symptoms: No Recent Illness/Hospitalization: Yes [facility] Medical History Type 2 acute myocardial [...] all 4 extremities. 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 Equal symmetrical radial pulses. Dorsi plantarflexion [...] % (Auto) 49.1 Lymph % (Auto) 37.9 Henderson % (Auto) 7.5 Eos % (Auto) 4.8 [...] with your doctor as needed. Print Language: Uruguayan Disposition Disposition: Home, Self Care What to do if you have Problems For any increased pain, shortness of breath, bleeding, nausea or vomiting, chestpain, or any unexpected problems, contact your Primary Care Provider. Call [facility] ([phone]) or report to the closest Emergency Room. Call 911 if necessary. 12/11/241935 <Electronically signed by Titi Jesus MD> Cosigner Signature (if applicable): CC: Dr. Leonie Peterson MD ~ Signed [facility] Work Phone: [phone] [facility]03-14-2025 [facility]2025 [facility] 11-23-2024 [facility] Medical Records Department [address] [place] [address] Discharge Summary 11/23/24 1458 MR#: [id number] Acct: [id number] Name: DIANNE ALVES Rep #: [id number] : 1955 69 From: Stephenie Yu MD PCP: Dr. Leonie Peterson MD Status:ADM IN Location: [place] [address] Providers Date of Admission: 11/17/24 Date of Discharge: 11/23/24 Primary Care Physician: Dr. Leonie Peterson MD Consultations 11/19/24 09:34 Consult: Global Program Director / Pulmonary Medicine Routine Consulting Provider: Intensivists/Pulmonary [...] cannula chronically, GERD, hep C who presented [facility] ED 09/16/2025 due to shortness of [...] 14.8, Hct 46.5, MCV (more content not included)...[facility]02-18-2025 Evaluation note* Diagnosis Onset Date Resolution Status Admit Date Influenza A acute October 2:58pm Acute on chronic hypoxic respiratory failure resolved October 2:58pm Type 2 acute myocardial infarction inactive November 17 2:58pm [facility] Work Phone: [phone] [facility] [facility] 10[facility]2024 NoteHNO ID: [id number] Author: YUE FRANKS PA-C Service: ? Author Type: Physician Rivet Heater Gas Type: Progress Notes Filed: 10/27/2024 10:59 Note [...] return to clinic with any concerns. [facility]-2024 NoteHNO ID: [id number] Author: YUE FRANKS PA-C Service: ? Author Type: Physician Rivet Heater Gas Type: Progress Notes Filed: 09/15/2024 11:13 Note [...] xrays of shoulder at that time. [facility]29[facility]26-[facility]11-20-2024 NoteHNO ID: [id number] Author: DOMINICK PAYTON MD Service: ? Author [...] AND Elbow Surgeon Department of Orthopaedic Surgery [facility]11-19-2024 NoteHNO ID: [id number] Author: DIOGENES VARELA Tech Service: ? Author Type: Garnett Machine Operator Helper Type: Progress Notes Filed: 08/19/2024 08:50 Note [...] Negative for diabetic associated symptoms HEMATOLOGY: [facility]11-15-[facility]24 [facility]-15-[facility]-12-[facility]24 [facility]11-10-2024 NoteHNO ID: [id number] Author: TALON BRITT MD Service: General Internal [...] II avoid nephrotoxic drugs Discharge home with [facility] Med reviewed PERTINENT ROS: All other [...] organomegaly EXTREMITIES: no edema SIGNATURE: Talon Britt [facility] [id number] NoteHNO ID: [id number] Author: TALON BRITT MD Service: General Internal [...] organomegaly EXTREMITIES: no edema SIGNATURE: Talon Britt [facility] [id number] NoteHNO ID: [id number] Author: ISHAAN WALTERS MD Service: ? Author [...] August 07, 2024 TIME: 4:48 PM CSN: [id number] [id number] NoteHNO ID: [id number] Author: DAIJA LEDEZMA RT(Elham) Service: ? Author [...] PATIENT PRESENTS WITH AN IMPLANTABLE OR ATTACHED SHEARER SCREEN MEASURER AND TRIMMER: No RADIOLOGY DEPARTMENT: General X-ray: Exam(s) Completed: Upper Extremity X-Ray(s): Shoulder, AP / TRUE AP left PERIPHERAL IV DATA: Not applicable SIGNED BY: RT Aysha(R) August 07, 2024 4:29 PMSt[facility] HospitalYmredhue37-54-4584 NoteHNO ID: [id number] Author: ESTEVAN MUNGUIA APRN.CRNA Service: Anesthesiology Author Type: Nurse Epic Analyst Type: Anesthesia Procedure Notes Filed: 08/07/2024 13:11 Note Text: ANESTHESIOLOGY PROCEDURE NOTE Airway General Information Procedure Start Time/Medication Administration: 08/07/2024 1:01 PM Procedure End Time: 08/07/2024 1:10 PM Patient location during procedure: OR Timeout Performed Pre-procedure: timeout performed Consent Obtained: Yes Patient identity confirmed: arm band Staffing PROJECT MANAGEMENT: Estevan Munguia APRN.PROJECT MANAGEMENT Performed by: LEX Indications and Patient Condition [...] no Airway not difficult SIGNATURE: Estevan Munguia APRN.PROJECT MANAGEMENT PATIENT NAME: Dianne Alves DATE: August 07, 2024 TIME: 1:10 PM CSN: [id number] [id number] [facility]10-30-[facility]24 [facility]10-30-2024 [facility]10-25-[facility]24 [facility]10-22-2024 Note [facility]-25-2024 NoteHNO ID: [id number] Author: DOMINICK PAYTON MD Service: ? Author [...] AND Elbow Surgeon Department of Orthopaedic Surgery [facility]07-31-2024 [facility] Medical Records Department [address] [place] [address] History Physical Exam 04/29/24912 MR#: [id number] Acct: [id number] Name: DIANNE ALVES Rep #: [id number] : 1955 69 From: Stef Friend DO PCP: Dr. Leonie Peterson MD Status:[facility] Location: [address] - General General Date of Admission: [...] cramping, chest pain or shortness of breath. [facility] Medical History (Updated 04/27/24 @ 10:49 [...] sweating, cold or heat (more content not included)...[facility]06-25-2024 NoteO ID: [id number] Author: DOMINICK PAYTON MD Service: ? Author [...] AND Elbow Surgeon Department of Orthopaedic Surgery [facility]06-25-2024 NoteHNO ID: [id number] Author: LYNNE PEÑA LPN Service: ? Author Type: LICENSED NURSE Type: Progress Notes Filed: 03/24/2024 10:56 Note Text: Injection prepared per Dr. Payton's order and handed directly to him. Injection site: left shoulder Lynne Peña [facility]03-[facility]-2024 NoteHNO ID: [id number] Author: DOMINICK PAYTON MD Service: ? Author [...] AND Elbow Surgeon Department of Orthopaedic Surgery [facility]03-19-2024 NoteHNO ID: [id number] Author: SHADY TAMAYO Tech Service: ? Author Type: Garnett Machine Operator Helper Type: Progress Notes Filed: 12/17/2023 10:50 Note [...] HEMATOLOGY: Negative for excessive bleeding, clots, bleeding disorders.[facility]02[facility] Discharge summary Author Isidro Dominguez [facility] November 10, 2023 11:08pm Note Date/Time November 10, 2023 6:57pm [facility] Medical Records Department [address] [place] [address] Emergency Department Summary 11/10/23 MR#: [id number] Acct: [id number] Name: DIANNE ALVES Rep #:[id number] : 1955 68 From: Isidro Dominguez MD [...] happened about 5 or 6 hours ago. [facility] Medical History Alcohol abuse Chronic hepatitis C [...] your Primary Care Provider. Call [facility] ([phone]) or report to the closest Emergency Room. Call 911 if necessary. 11/10/232307 <Electronically signed by Isidro Dominguez MD> Cosigner Signature (if applicable): CC: Dr. Leonie Peterson MD ~ Signed [facility] Work Phone: 1(604) 695-284402-06-2024 NoteHNO ID: [id number] Author: LYNNE PEÑA LPN Service: ? Author Type: LICENSED NURSE Type: Progress Notes Filed: 11/13/2023 13:13 Note Text: Injection prepared per Dr. Payton's order and handed directly to him. Injection site: left shoulder Lynne Peña [facility]02-06-2024 NoteHNO ID: [id number] Author: DOMINICK PAYTON MD Service: ? Author [...] AND Elbow Surgeon Department of Orthopaedic Surgery [facility]02-06-2024 NoteHNO ID: [id number] Author: DIOGENES VARELA Tech Service: ? Author Type: Garnett Machine Operator Helper Type: Progress Notes Filed: 11/13/2023 13:13 Note Text: REVIEW OF SYSTEMS: GENERAL: Well developed, well nourished. No acute distress PAIN: Negative for pain, history of chronic pain or current treatment for chronic pain conditions CARDIOVASCULAR: Negative for chest pain, leg swelling and palpations. MSK: Negative for joint swelling SKIN: Rash yes NEURO: Numbness/tingling of extremties ENDOCRINE: Negative for diabetic associated symptoms HEMATOLOGY: Cl[facility]11-13-2023 Discharge summary Author Shady Burris [facility] August 12, 2023 1:42pm Note Date/Time August 12, 2023 1:33pm [facility] Medical Records Department [address] [place] [address] Transfer to [facility] MR#: [id number] Acct: [id number] Name: DIANNE ALVES Rep #:[id number] : 1955 68 From: Shady nichole DO PCP: Dr. Aquiles Jones MD Status:ADM I NO Certification of patient admission REQUIRED AT TIME OF ADMISSION. I CERTIFY THAT POST-HOSPITAL F SERVICES ARE REQUIRED TO BE GIVEN ON AN IN-PATIENT BASIS BECAUSE OF THE ABOVE NAMED PATIENT'S NEED FOR [facility] CARE ON A CONTINUING BASIS FOR THE CONDITION(S) FOR WHICH HE/SHE WAS RECEIVING IN-PATIENT HOSPITAL SERVICES PRIOR TO HIS/HER TRANSFER TO THE [facility]. 08/12/23 1342<Electronically signed by Shady Burris DO> [...] specified health status Plan Patient presented to [facility] on 08/05/2023 from [facility] with chest pain. Hospital course as noted [...] debility: Patient came to the ED from [facility]. PT/OT/case management followed during this hospitalization. Patient was stable for discharge back to [facility] on 08/12. Patient notably did require oxycodone [...] in before D/C Order can be placed): [facility] Charges/Coding Visit Charges Inpatient E&M: 38207 Disch Hosp >30min (1) Chest pain Qualifiers: Chest pain type: unspecified Qualified Code(s): R07.9 - Chest pain, unspecified 08/12/23 1342 <Electronically signed by Shady Burris DO> Cosigner Signature (if applicable): CC: Dr. Miguelina Castanon MD; Dr. Woodrow Cardenas DO; Dr. Aquiles Jones MD; Dr. Julio Duong MD ~ [facility] Work Phone: 1(599) 702-895911-13-2023 Consult note Author Melvin West [facility] August 12, 2023 1:37pm Note Date/Time August 12, 2023 1:37pm [facility] Medical Records Department [address] [place] [address] Counseling Note - Pharmacy 08/12/23 1337 MR#: [id number] Acct: [id number] Name: LONGDIANNE STACEY Rep #:[id number] : 1955 68 From: Melvin West PCP: Dr. Aquiles Jones MD Status:ADM I NO Y Location: [place] [address] Pharmacy [place] Med Reconciliation Pharmacy Service has [...] Signature (if applicable): Date CC: ~ Signed [facility] Work Phone: 1(690) 234-807611-13-2023 Discharge summary Author Shady Burris [facility] August 12, 2023 1:28pm Note Date/Time August 12, 2023 1:22pm [facility] Medical Records Department [address] [place] [address] Instructions for Home/Discharge Instructions 08/12/23 1321 MR#: [id number] Acct: [id number] Name: DIANNE ALVES Rep #:[id number] : 1955 68 From: Shady nichole DO [...] in before D/C Order can be placed): [facility] 08/12/23 1328<Electronically signed by Shady Burris DO>Shady Burris DO CC: Dr. Miguelina Castanon MD; Dr. Woodrow Cardenas DO; Dr. Aquiles Jones MD; Dr. Julio Duong MD ~ Signed [facility] Work Phone: 1(156) 549-118711-12-2023 Progress note Author Julio Duong [facility] August 11, 2023 3:12pm Note Date/Time August 11, 2023 3:11pm [facility] Medical Records Department [address] [place] [address] Progress Note - Hospitalist 08/11/23 1508 MR#: [id number] Acct: [id number] Name: DIANNE ALVES Rep #:[id number] : 1955 68 From: Julio Wilkins PCP: Dr. Aquiles Jones MD Status:ADM I NO Location: [place] [address] Reason for Visit Reason for Visit: Diagnoses [...] Std Deviation 50.7 H, RDW Coeff of Olge 15.0 H, Plt Count 268, MPV 10.2, Immature Gran % (Auto) 0.200, Neut % (Auto) 40.1 L, Lymph % (Auto) 44.2 H,Henderson % (Auto) 8.1, Eos % (Auto) 6.7 [...] abuse with chronic hepatitis C: Reportedly clean [facility] e 03/2020 with history of crack and [...] is for the patient to return to [facility], however she will require precertification before that. [...] authorization afterwards. Charges/Coding Visit Charges Inpatient E&M: 71494 Subs Hosp L2 08/11/231510 <Electronically signed by Julio Duong MD> Cosigner Signature (if applicable): CC: ~ Signed ADDENDUM by Dr. Julio Duong MD on 08/11/23 at 1512 Addendum Patient had hyperkalemia K6.2. Kayexalate was given. Repeat potassium 5.8. Patient creatinine 1.43 estimated creatinine clearance 35.7, CKD stage IIIb 08/11/231511<Electronically signed by Julio Duong MD> Cosigner Signature (if applicable): cc: ~* Signed [facility] Work Phone: 1(793) 519-314511-11-2023 Progress note Author Julio Duong [facility] August 10, 2023 2:25pm Note Date/Time August 10, 2023 2:25pm [facility] Medical Records Department [address] [place] [address] Progress Note - Hospitalist 08/10/231421 MR#: [id number] Acct: [id number] Name: DIANNE ALVES Rep #:[id number] : 1955 68 From: Julio Wilkins PCP: Dr. Aquiles Jones MD Status:ADM I NO Location: [place] [address] Reason for Visit Reason for Visit: Diagnoses [...] is for the patient to return to [facility], however she will require precertification before that. [...] authorization afterwards. Charges/Coding Visit Charges Inpatient E&M: 79948 Subs Hosp L2 08/10/23 1421 <Electronically signed by Julio Duong MD> Cosigner Signature (if applicable): CC: ~ Signed [facility] Work Phone: 1(409) 341-487111-10-2023 Progress note Author Julio Duong [facility] August 09, 2023 5:22pm Note Date/Time August 09, 2023 5:22pm [facility] Medical Records Department [address] [place] [address] Progress Note - Hospitalist 08/09/23 1719 MR#: [id number] Acct: [id number] Name: DIANNE ALVES Rep #:[id number] : 1955 68 From: Julio Wilkins PCP: Dr. Aquiles Jones MD Status:ADM I NO Location: [place] [id number] Reason for Visit Reason for Visit: [...] is for the patient to return to [facility], however she will require precertification before that. [...] authorization afterwards. Charges/Coding Visit Charges Inpatient E&M: 25746 Subs Hosp L2 08/09/23 1722 <Electronically signed by Juloi Duong MD> Cosigner Signature (if applicable): CC: ~ Signed [facility] Work Phone: 1(987) 886-700711-09-2023 Progress note Author Julio Duong [facility] August 08, 2023 5:35pm Note Date/Time August 08, 2023 5 :36pm [facility] Medical Records Department [facility] [place] [address] Progress Note - Hospitalist 08/08/23 1731 MR#: [id number] Acct: [id number] Name: DIANNE ALVES Rep #:[id number] : 1955 68 From: Julio Wilkins PCP: Dr. Aquiles Jones MD Status:ADM I NO Location: [place] [address] Reason for Visit Reason for Visit: Diagnoses [...] 11:19 EST Reading Location ID and State: [facility] / [place] Tel , Service support , Physical Exam [...] with chronic hepatitis C: Reportedly clean [facility] 03/2020 with history of crack and cocaine [...] is for the patient to return to [facility], however she will require precertification before that. [...] authorization afterwards. Charges/Coding Visit Charges Inpatient E&M: 85619 Subs Hosp L2 08/08/23 1735 <Electronically signed by Julio Duong MD> Cosigner Signature (if applicable): CC: ~ Signed [facility] Work Phone: 1(193) 386-682111-08-2023 Progress note Author Woodrow Cardenas [facility] August 07, 2023 2:50pm Note Date/Time August 07, 2023 8 :52am [facility] Medical Records Department [facility] [place] [address] Progress Note - Hospitalist 08/07/23 0851 MR#: [id number] Acct: [id number] Name: DIANNE ALVES Rep #:[id number] : 1955 68 From: Woodrow Cardenas DO PCP: Dr. Aquiles Jones MD Status:ADM I NO Location: [place] [address] Reason for Visit Reason for Visit: Diagnoses [...] (Auto) 42.9 L, Lymph % (Auto) 39.6, Henderson % (Auto) 10.2 H, Eos % (Auto) [...] is for the patient to return to [facility], however she will require precertification before that. [...] isin place Charges/Coding Visit Charges Inpatient E&M: 92596 Subs Hosp L2 08/07/23 1450 <Electronically signed by Woodrow Cardenas DO> Cosigner Signature (if applicable): CC: ~ Signed [facility] Work Phone: 1(670) 582-700611-07-2023 Progress note Author Woodrow Cardenas [facility] August 06, 2023 2:18pm Note Date/Time August 06, 2023 8 :36am [facility] Medical Records Department [address] [facility] [place] [address] Progress Note - Hospitalist 08/06/23 0835 MR#: [id number] Acct: [id number] Name: DIANNE ALVES Rep #:[id number] : 1955 68 From: Woodrow Cardenas DO PCP: Dr. Aquiles Jones MD Status:ADM I NO Location: [place] [address] Reason for Visit Reason for Visit: Diagnoses [...] Full code. Charges/Coding Visit Charges Inpatient E&M: 00944 Subs Hosp L2 08/06/23 1418 <Electronically signed by Woodrow Cardenas DO> Cosigner Signature (if applicable): CC: ~ Signed [facility] Work Phone: 1(650) 510-864311-06-2023 Progress note Author Woodrow Cardenas [facility] August 05, 2023 1:28pm Note Date/Time August 05, 2023 8 :09am [facility] Medical Records Department [address] [place] [address] Progress Note - Hospitalist 08/05/23 0804 MR#: [id number] Acct: [id number] Name: DIANNE ALVES Rep #:[id number] : 1955 68 From: Woodrow Cardenas DO PCP: Dr. Aquiles Jones MD Status:ADM I NO Location: [place] [address] 1 Reason for Visit Reason for Visit: [...] % (Auto) 48.3, Lymph % (Auto) 37.6, Henderson % (Auto) 7.6, Eos % (Auto) 5.7 [...] at bedside. Charges/Coding Visit Charges Inpatient E&M: 64256 Subs Hosp L2 08/05/23 1328 <Electronically signed by Woodrow Cardenas DO> Cosigner Signature (if applicable): CC: ~ Signed [facility] Work Phone: 1([phone]) 860-643211-06-2023 [address] [facility] August 05, 2023 7:57am Note Date/Time August 05, 2023 2 :22am [facility] Medical Records Department [address] [place] [address] Emergency Department Summary 08/05/23 MR#: [id number] Acct: [id number] Name: DIANNE ALVES Rep #:[id number] : 1955 68 From: Castro Guallpa PCP: Dr. Aquiles Jones MD Status:ADM I NO Location: [address] History of Present Illness Chief Complaint: Chest Pain [facility] Medical History (Updated 08/05/23 @ [...] others: EMS Consults: Internal medicine (Dr. Castanon) [facility] Narrative: Patient was hemodynamically stable, afebrile, [...] despite significant pain. Had a conversation with charge aide, RN for the patient about IV access. [...] through a line company per hospitalist. Per charge aide is not available until potentially 10 or [...] a wire introducer was placed, a 7 Welsh triple lumen catheter was placed using Seldinger [...] % (Auto) 48.3 Lymph % (Auto) 37.6 Henderson % (Auto) 7.6 Eos % (Auto) 5.7 [...] 5:28 EST Reading Location ID and State: [facility] / [place] Tel , Service support , Discharge Plan Triage Chief Complaint: Chest Pain ED Provider: Castro Lane Dx/Rx/DC Orders Primary Care Provider: Aquiles Jones What to do if you have Problems For any increased pain, shortness of breath, bleeding, nausea or vomiting, chestpain, or any unexpected problems, contact your Primary Care Provider. Call [facility] ([phone]) or report to the closest Emergency Room. Call 911 if necessary. 08/05/23 0098 <Electronically signed by Castro Lane DO> Cosigner [...] cc: Dr. Aquiles Jones MD ~* Signed [facility] Work Phone: [phone]) 546-481911-06-2023 History and physical note Author Miguelina Castanon [facility] August 05, 2023 5:49am Note Date/Time August 05, 2023 5 :30am [facility] Medical Records Department [address] [place] [address] H&P Exam - Hospitalist 08/05/23 0525 MR#: [id number] Acct: [id number] Name: DIANNE ALVES Rep #:[id number] : 1955 68 From: Miguelina Castanon MD PCP: Dr. Aquiles Jones MD Status:ADM I NO Location: [place] [id number]- 1 HPI - General General Date of Admission: 08/05/23 Date of Service: 08/05/23 Chief Complaint: Chest pain. HPI Narrative The patient is a 68 y/o F w/ PMHx: Morbid Obesity, Chart reported thyroid disorder unclear type, PAD s/p LLE angioplasty/PCI, Hx VTE, COPD, EtOH abuse, Polysubstance abuse, Chronic Hepatitis C, HTN, Former tobacco use, Depression and Anxiety who presents to the [facility] ED on 08/05/23 with history of [...] with ED ordered CTPA as best course. [facility] Medical History (Updated 08/05/23 @ 05:26 [...] % (Auto) 48.3, Lymph % (Auto) 37.6, Henderson % (Auto) 7.6, Eos % (Auto) 5.7 [...] Depression and Anxiety who presents to the [facility] ED on 08/05/23 with history of [...] Full code. Charges/Coding Visit Charges Inpatient E&M: 55137 Init Hosp L2 08/05/23 0549 <Electronically signed by Miguelina Castanon MD> Cosigner Signature (if applicable): CC: Dr. Miguelina Castanon MD; Dr. Aquiles Jones MD~ Signed [facility] Work Phone: [phone]) [phone] History and physical note Author Miguelina Castanon [facility] August 05, 2023 5:49am Note Date/Time August 05, 2023 5 :30am [facility] Medical Records Department [address] [place] [address] [place] [address] H&P Exam - Hospitalist 08/05/23 0525 MR#: [id number] Acct: [id number] Name: DIANNE ALVES Rep #:[id number] : 1955 68 From: Miguelina Castanon MD PCP: Dr. qAuiles Jones MD Status:ADM I NO Location: [place] [address] HPI - General General Date of Admission: 08/05/23 Date of Service: 08/05/23 Chief Complaint: Chest pain. HPI Narrative The patient is a 68 y/o F w/ PMHx: Morbid Obesity, Chart reported thyroid disorder unclear type, PAD s/p LLE angioplasty/PCI, Hx VTE, COPD, EtOH abuse, Polysubstance abuse, Chronic Hepatitis C, HTN, Former tobacco use, Depression and Anxiety who presents to the [facility] ED on 08/05/23 with history of [...] with ED ordered CTPA as best course. [facility] Medical History (Updated 08/05/23 @ 05:26 [...] % (Auto) 48.3, Lymph % (Auto) 37.6, Henderson % (Auto) 7.6, Eos % (Auto) 5.7 [...] Depression and Anxiety who presents to the [facility] ED on 08/05/23 with history of [...] Full code. Charges/Coding Visit Charges Inpatient E&M: 88276 Init Hosp L2 08/05/23 0549 <Electronically signed by Miguelina Castanon MD> Cosigner Signature (if applicable): CC: Dr. Miguelina Castanon MD; Dr. Aquiles Jones MD~ Signed [facility] Work Phone: 1(240) 194-275611-06-2023 Discharge summary Author Castro [facility] August 05, 2023 7:57am Note Date/Time August 05, 2023 2 :22am [facility] Medical Records Department [address] [place] [address] Emergency Department Summary 08/05/23 MR#: [id number] Acct: [id number] Name: DIANNE ALVES Rep #:[id number] : 1955 68 From: Castro Guallpa PCP: Dr. Aquiles Jones MD Status:ADM I NO Location: [address] History of Present Illness Chief Complaint: Chest Pain [facility] Medical History (Updated 08/05/23 @ [...] despite significant pain. Had a conversation with charge aide, RN for the patient about IV access. [...] through a line company per hospitalist. Per charge aide is not available until potentially 10 or [...] a wire introducer was placed, a 7 Welsh triple lumen catheter was placed using Seldinger [...] % (Auto) 48.3 Lymph % (Auto) 37.6 Henderson % (Auto) 7.6 Eos % (Auto) 5.7 [...] your Primary Care Provider. Call [facility] ([phone]) or report to the closest Emergency Room. [...] cc: Dr. Aquiles Jones MD ~* Signed [facility] Work Phone: 1(405) 209-239009-25-2023 Discharge summary Author Felicitas Harris [facility] June 24, 2023 11:10am Note Date/Time June 24, 2023 11:10am [facility] Occupational Therapy [facility] 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 Thank you for the referral of this patient. Sincerely, Felicitas Harris, OTR/L, CHT <Electronically signed by Felicitas Harris OTR/L, CHT> 06/24/23 1110 CC: PMP-C ELI BRAGG; Dr. Capo Yu MD ~ MK Signed [facility] Work Phone: [phone]) 445-299309-05-2023 Discharge summary Author Lucas Marshall [facility] June 04, 2023 3:14pm Note Date/Time June 04, 2023 2:03pm [facility] Medical Records Department [address] [place] [address] Emergency Department Summary 06/04/23 MR#: [id number] Acct: [id number] Name: DIANNE ALVES Rep #:[id number] : 1955 68 From: Lucas Penny PCP: CHICO DREW Status:REG ER Location: ED HPI History of Present Illness Chief Complaint: Back Informant: patient Narrative Narrative: Here with daughter nontraumatic right hip pain since yesterday. On meloxicam last dose this morning. Status post left ORIF of the wrist in February from [facility]. States his residual tingling to her thumb. [...] mcg-glycopyr 9 mcg-formot 4.8 mcg/actuation HFA inhaler ([employer]) 2 inh inhalation BID 02/08/23 [History Last [...] clinician: N/A This note was generated with [employer] dictation software. It may contain incorrectwords, spelling, and punctuation that were not noted in checking the note beforesigning. Radiography Diagnostic Testing: Clinical Impression(s) from Imaging Studies Hip/Pelvis X-Ray 06/04/23 14:30 IMPRESSION: No evidence of displaced pelvic or hip fracture. Electronically Signed: rAnold Alatorre MD at 14:47 EDT , Discharge [...] your Primary Care Provider. Call [facility] ([phone]) or report to the closest Emergency Room. Call 911 if necessary. 06/04/23 7826 <Electronically signed by Lucas Penny> Cosigner Signature (if applicable): CC: CHICO BRAGG ~ Signed [facility] Work Phone: [phone]) 287-253401-23-[address] Kingsley [facility] October 22, 2022 6:28pm Note Date/Time October 22, 2022 4 :44pm [facility] Medical Records Department [address] [place] [address] Emergency Department Summary 10/22/22 MR#: [id number] Acct: [id number] Name: DIANNE ALVES Rep #:[id number] : 1955 67 From: Ganga Kingsley MD [...] she be discharged safely home to use ulac-hcf-ibwvabx medications. She was told that narcotic pain [...] (Auto) 46.3 L Lymph % (Auto) 40.1 Henderson % (Auto) 7.0 Eos % (Auto) 5.9 [...] your Primary Care Provider. Call [facility] ([phone]) or report to the closest Emergency Room. Call 911 if necessary. 10/22/221827 <Electronically signed by Ganga Kingsley MD> Cosigner Signature (if applicable): CC: Dr. Leonie Peterson MD ~ Signed [facility] Work Phone: Evaluation noteNo assessment information available [facility] Work Phone: Evaluation note* Diagnosis Onset Date Resolution Status Hepatitis A chronic Hepatitis C chronic [facility] Work Phone: Evaluation note* Diagnosis Onset Date Resolution Status Hepatitis A chronic Hepatitis C chronic Preop cardiovascular exam ac modoc [facility] Work Phone: Evaluation note* Diagnosis Onset Date Resolution Status Preop cardiovascular exam ac modoc Euthyroid sick syndrome acut e Bloating acute Hepatitis A chronic Hepatitis C chronic [facility] Work Phone: Evaluation note* Diagnosis Onset Date Resolution Status Euthyroid sick syndrome acut e Bloating acute Hepatitis A chronic Hepatitis C chronic [facility] Work Phone: Evaluation note* Diagnosis Onset Date Resolution Status Euthyroid sick syndrome acut e Bloating acute Hepatitis A chronic Hepatitis C chronic Chest pain acute [facility] Work Phone: Evaluation note* Diagnosis Onset Date Resolution Status Euthyroid sick syndrome acut e Bloating acute Hepatitis A chronic Hepatitis C chronic Chest pain acute Difficult intravenous access acute [facility] Work Phone: Evaluation note* Diagnosis Onset Date Resolution Status Difficult intravenous access acute Chest pain resolved [facility] Work Phone: Hospital Discharge instructions Additional Instructions Take antibiotic and steroid as prescribed. Next dose tomorrow. Keep yoUr pulmonology appointment tomorrow. COVID-negative chest x-ray negative labs are stable. return if any worsening symptoms.[facility] Work Phone: Hospital Discharge instructions Additional Instructions Motrin and Tylenol for pain. The x-rays of your hip showed arthritis but no broken bones or any other significant abnormalities. Follow-up with your doctor if not improving.[facility] Work Phone: Hospital Discharge instructions Additional Instructions Right hip x-ray negative. Take steroids, continue your meloxicam. Use Percocet as needed. Follow-up with your doctors.[facility] Work Phone: Hospital Discharge instructions Additional Instructions See CAT scan your chest look good. No blood clot. Your other tests look good tonight. 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 Advance Directives and Living Will Power of Packing Tractor Machine Operator Advance Directive Response Recorded Date/ Time Living Will No July 30 2:10pm Power of Packing Tractor Machine Operator No July 30, 2022 2:10pm Advance Directive Response Recorded Date/ Time Living Will No July 30 1:10pm Power of Packing Tractor Machine Operator No July 30, 2022 1:10pm Advance Directive Response Recorded Date/ Time Living Will No October 22 4:35pm Power of Packing Tractor Machine Operator No October 22, 2022 4:35pm Advance Directive Response Recorded Date/ Time Living Will No October 22 5:35pm Power of Packing Tractor Machine Operator No October 22, 2022 5:35pm Advance Directive Response Recorded Date/ Time Living Will No April 13, 2023 10:36am Power of Packing Tractor Machine Operator No April 13 10:36am Advance Directive Response Recorded Date/ Time Living Will No June 04, 2 023 3:10pm Power of Packing Tractor Machine Operator No June 04, 2023 3:10pm Advance Directive Response Recorded Date/ Time Living Will No June 04, 023 2:10pm Power of Packing Tractor Machine Operator No June 04, 2023 2:10pm Advance Directive Response Recorded Date/ Time Living Will No August 05 8:52am Power of Packing Tractor Machine Operator No August 05, 2023 8:52am Advance Directive Response Recorded Date/ Time Living Will No November 10 024 8:26pm Power of Packing Tractor Machine Operator No November 10, 2023 8:26pm Advance Directive Response Recorded Date/ Time Living Will No November 21 024 11:32am Power of Packing Tractor Machine Operator No November 21, 2023 11:32am Advance Directive Response Recorded Date/ Time Living Will No November 17 025 5:00pm Power of Packing Tractor Machine Operator No November 17, 2024 5:00pm Living Will No December 11, 2024 4:45pm Power of Packing Tractor Machine Operator No December 11 4:45pm Hospital Course Note NAME: DIANNE ALVES MR# : [id number] ADMIT DATE: 11/25/2019 DISCHARGE DATE: 12/07/2019 DISCHARGE SUMMARY HISTORY OF PRESENT ILLNESS: The patient is a 64-year-old -[place] female who was evicted from her apartment [...] cocaine. Unfortunately there are no beds at [facility]. Please follow-up with the resources provided to you for local help. * Attachments The following attachments cannot be sent through Care Everywhere. * Drug Overdose: Cocaine ([place]rugu[place]) documented in this encounter Assessments Diagnosis Cocaine [...] and content) DATE CREATED AUTHOR 02/04/2019 [facility] DATE CREATED AUTHOR AUTHOR'S ORGANIZ ATION 06/19/2019 [employer] DATE CREATED AUTHOR AUTHOR'S ORGANIZ ATION 12/14/2019 [facility] DATE CREATED AUTHOR AUTHOR'S ORGANIZ ATION 02/12/2020 [facility] DATE CREATED AUTHOR AUTHOR'S ORGANIZ ATION 04/22/2020 [facility] DATE CREATED AUTHOR AUTHOR'S ORGANIZ ATION 10/29/2021 [facility] DATE CREATED AUTHOR AUTHOR'S ORGANIZ ATION 08/22/2024 [facility] DATE CREATED AUTHOR AUTHOR'S ORGANIZ ATION 10/28/2024 [facility] DATE CREATED AUTHOR AUTHOR'S ORGANIZ ATION 12/22/2024 [facility] DATE CREATED AUTHOR AUTHOR'S ORGANIZ ATION 07/17/2025 [facility] Reason for Visit (unrecogniz ed section and [...] 2024 End: November 23, 2024 Dr. Eladio Gracia MD Other Provider Active Star t: November [...] Sta rt: November 19, 2024 Dr. Fela Simth MD Other Provider Active Sta rt: November [...] Active Start: November 20, 2024 Dr. Jose oRsa MD Other Provider Active Star t: November [...] St art: November 20, 2024 Dr. Dianna Sahh MD Other Provider Active Start: November 20, [...] Provider Active Start: November 20, 2024 Dr. oDron Bernardo DO Emergency Provider Active Start: November 20, 2024 Dr. Stephenie Yu MD Admit Provider Active Star t: November 20, 2024 Dr. Stephenie Yu MD Other Provider Active Star t: November 20, 2024 Dr. Rtia Kenny MD Attending Provider Active Start: November [...] Active Start : November 22, 2024 Dr. dK Corral MD Other Provider Active Start: November [...] Provider Active Start: November 23, 2024 Dr. Stehpenie Yu MD Admit Provider Active Star t: [...] DO Attending Provider Active ELI BRAGG , PMP-C Primary Care Provider Active Team Status: Inactive Member Role Status Dates Dr. Leonie Peterson MD Referring Provider Active Dr. Omar Walters MD Attending Provider Active ELI BRAGG , PMP-C Primary Care Provider Active Team Status: Inactive Member Role Status Dates Dr. Capo Yu MD Attending Provider, Referring Provider Active ELI BRAGG , PMP-C Primary Care Provider Active Team Status: Inactive Member Role Status Dates ELI BRAGG PMP-C Primary Care Provider Active Dr. Stef Bennett DO Attending Provider, Referring Provider Active Team Status: Inactive Member Role Status Dates ELI BRAGG PMP-C Primary Care Provider Active Dr. Lucas Marshall [...] Member Role Status Dates ELI BRAGG , PMP-C Primary Care Provider Active Team Status: Active Member Role Status Dates Dr. Capo Yu MD Attending Provider, Referring Provider Active ELI OLDER , PMP-C Primary Care Provider Active Team Status: Inactive Member Role Status Dates ELI BRAGG , PMP-C Primary Care Provider Active Dr. Lucas Marshall [...] BE BASED ON THE PRIMARY CLINICAL RECORDS. [employer] provides no warranty or guarantee of the accuracy or completeness of information in this document.
--- OUTSIDE RECORDS SUMMARY | 2025-09-26 05:37 | XMS RPT_ITS | CCD ---
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 Omar Walters Attending Provider OLDER, RECYCLING CREW SUPERVISOR-C ELI Primary Care Provider Dr. Stef Bennett Attending Provider Dr. Leonie Peterson Referring Provider Dr. Leonie Peterson Referring Provider Dr. Omar Walters Attending Provider OLDER, RECYCLING CREW SUPERVISOR-C ELI Primary Care Provider Dr. Stef Bennett Attending Provider Dr. Aquiles Jones Primary Care Provider Dr. Tej Corley Attending Provider Dr. Castro Lane Emergency Provider Dr. Miguelina Castanon Admit Provider Dr. Miguelina Castanon Other Provider Dr. Woodrow Cardenas Attending Provider Dr. Woodrow Cardenas Other Provider Dr. Woodrow Cristobal Attending Provider Dr. Julio Duong Attending Provider Dr. Julio Duong Other Provider Dr. Shady Burris Attending Provider [phone] Dr. Shady Burris Other Provider Dr. Woodrow [...] [employer] Unavailable Dianna Shah Consulting Unavailable Chilo, Soleyanoelle Consulting Unavailable Fernstrom, Jorje Consulting Unavailable [...] Provider Laisha CORTÉS, Dr. Damon Other Provider [phone] Don CORTÉS, Dr. Franz Other Provider [phone] Shyanne CORTÉS, Dr. Cortes Other Provider Dr. Kd Corral MD Other Provider Dr. Kvng Vizcaino MD Other Provider Dr. Niyah Mejia MD Other Provider Blayne CORTÉS, Dr. Estrada Other Provider Unavailabl indu Smith MD, Dr. Chahal Other Provider Dr. Kane Knox MD Other Provider Dr. Vishnu Herrera MD Other Provider Jose CORTÉS, Dr. Hendricks Other Provider Dr. Lion Khan DO Other Provider [phone] Alyssa CORTÉS, Dr. Bustamante Other Provider Marielos CORTÉS, Dr. Carrion Other Provider [phone] Zack DONOVAN, Dr. Recinos Other Provider Valeriano [...] source) traMADol Drug Allergy 05-22-2016 Nausea Only [facility] [place], [place] Medications Current Medications Medication Drug [...] mg by inhalation every six hours Ipratropium Stirling 0.02 % Solution Active 0.5 mg INHALATION [...] 1:24pm docusate sodium 50 mg / sennosides, custodial 8.6 mg oral tablet (4 sources) Start: [...] February 08, 2023 1:24pm polyethylene glycol 3350 06051 mg powder for oral solution (4 sources) [...] and chronic respiratory failure with hypoxia; Translations: [Abgom-nt-rnchsuy respiratory failure] Onset: 07-19-2022 11-25-2024 Chronic Spondylosis; [...] current use of drug therapy; Translations: [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] Onset: 04-17-2016 05-22-2016 Unclassified [...] Reference Range Facility CNOVon 07-12-2025 CNOV Normal [facility] CNPNon 06-30-2025 CNPN Normal [facility] CNPNon 06-24-2025 CNPN Normal [facility] CNOVon 06-22-2025 CNOV Normal [facility] LUNG DIFFUSION CAPACITY (GUANAKO O)on 06-22-2025 LUNG DIFFUSION CAPACITY (DLCO) Normal [facility] SPIROMETRY WITH DILATOR IF O BSTRUCTEDon 06-22-2025 SPIROMETRY WITH DILATOR IF OBSTRUCTED Normal [facility] CNOVon 06-01-2025 CNOV Normal [facility] T3Free SerPl-mCncon 06-01-20 25 Free T3 [Mass/Vol] 2.8 pg/mL Normal 2.3-4.1 [facility] Comment on above: Order Comment: Speci men Type: BLOOD SPECIMENOrdering Facility: [facility] Address: [address] [place] [address] Performed By: #### 3 051-0, 3024-7, 3016-3 ####[facility] LABCLIA [id number] [address] [place] T4 Free SerPl-mCncon 025 Free T4 [Mass/Vol] 1.1 ng/dL Normal 0.9-1.7 [facility] Comment on above: Order Comment: Speci men Type: BLOOD SPECIMENOrdering Facility: [facility] Address: [address] [place] [address] Performed By: #### 3 051-0, 3024-7, 3016-3 ####[facility] LABCLIA [id number] [place] [address] [place] TSH SerPl-aCncon 06-01-2025 TSH Qn 0.560 m[IU]/L Normal 0.270-4.200 [facility] Comment on above: Order Comment: Speci men Type: BLOOD SPECIMENOrdering Facility: [facility] Address: [address] [place] [address] Performed By: #### 3 051-0, 3024-7, 3016-3 ####[facility] LABCLIA [id number] [place] [address] [place] CNOVon 05-11-2025 CNOV Normal [facility] XR CHEST 2V FRONTAL/LATon XR CHEST 2V FRONTAL/LAT Normal [facility] CNPNon 05-04-2025 CNPN Normal [facility] CNCOon 04-21-2025 CNCO Letter Text Normal [facility] CNPNon 04-16-2025 CNPN Normal [facility] CNOVon 04-09-2025 CNOV Normal [facility] CNOVon 03-23-2025 CNOV Normal [facility] CNPTOUTREACHon 03-02-2025 CNPTOUTREACH Normal [facility] CNOVon 03-01-2025 CNOV Normal [facility] T3 SerPl-mCncon 03-01-2025 T3 [Mass/Vol] 100 ng/dL Normal 79-165 [facility] Comment on above: Order Comment: Speci men Type: BLOOD SPECIMENOrdering Facility: [facility] Address: [address] [place] [address] Performed By: #### 3 053-6, 3016-3, 3024-7 ####[facility] LABCLIA [id number] [place] [address] [place] T4 Free SerPl-mCncon 025 Free T4 [Mass/Vol] 1.0 ng/dL Normal 0.9-1.7 [facility] Comment on above: Order Comment: Speci men Type: BLOOD SPECIMENOrdering Facility: [facility] Address: [address] [place] [address] Performed By: #### 3 053-6, 3016-3, 302-7 ####[facility] LABCLIA [id number] [place] [address] [place] TSH SerPl-aCncon 03-01-2025 TSH Qn 0.354 m[IU]/L Normal 0.270-4.200 [facility] Comment on above: Order Comment: Speci men Type: BLOOD SPECIMENOrdering Facility: [facility] Address: [address] [place] [address] Performed By: #### 3 053-6, 3016-3, 7 ####[facility] LABCLIA [id number] [place] [address] [place] Bacteria Spec Resp Culton Bacteria identified Respiratory culture Nom (Unsp spec) ORGANISM ID: 1 Few normal respiratory tanesha GRAM STAIN: Rare Mixed oral tanesha Rare Polymorphonuclear leukocytes Abnormal [facility] Comment on above: Performed By: #### 3 2355-0 ####[facility] LABCLIA [id number] [address] [place] CNOVon 02-05-2025 CNOV Normal [facility] XR CHEST 2V FRONTAL/LATon XR CHEST 2V FRONTAL/LAT Normal [facility] PVR ANK PRESS ARTEM VAS LABon 02-02-2025 PVR ANK PRESS ARTEM VAS LAB Normal [facility] CNOVon 01-01-2025 CNOV Normal [facility] CNOVon 12-21-2024 CNOV Normal [facility] Bacteria Ur Culton Bacteria identified Cx Nom (U) ORGANISM ID: 1 10,000 -<50,000 CFU/ml Normal urogenital tanesha Normal [facility] Comment on above: Performed By: #### 6 30-4 ####[facility] LABCLIA [id number] [place] [address] [place] CNOVon 12-18-2024 CNOV Normal [facility] Urinalysis complete panel (U )on 12-18-2024 Bacteria LM.HPF (Urine sed) [#/Area] Negative Normal Negative [facility] Comment on above: Order Comment: Speci men Type: URINE SPECIMENOrdering Facility: [facility] Address: [address] [place] [address] Performed By: #### 2 4356-8 ####[facility] LABCLIA [id number] [place] [address] [place] Bilirubin Ql (U) Negative Normal Negative [facility] Comment on above: Order Comment: Speci men Type: URINE SPECIMENOrdering Facility: [facility] Address: [address] [place] [address] Performed By: #### 2 4356-8 ####[facility] LABCLIA [id number] [place] [address] [place] Clarity (Unsp spec) Clear Normal Clear [facility] Comment on above: Order Comment: Speci men Type: URINE SPECIMENOrdering Facility: [facility] Address: [address] [place] [address] Performed By: #### 2 4356-8 ####[facility] LABCLIA [id number] [place] [address] [place] Color (U) Yellow Normal Yellow [facility] Comment on above: Order Comment: Speci men Type: URINE SPECIMENOrdering Facility: [facility] Address: [address] [place] [address] Performed By: #### 2 4356-8 ####[facility] LABCLIA [id number] [place] [address] [place] Epithelial cells LM.HPF (Urine sed) [#/Area] Few Normal [facility] Comment on above: Order Comment: Speci men Type: URINE SPECIMENOrdering Facility: [facility] Address: [address] [place] [address] Performed By: #### 2 4356-8 ####[facility] LABCLIA [id number] [address], [place] [address] [place] Glucose Test strip (U) [Mass/Vol] Negative Normal Negative [facility] Comment on above: Order Comment: Speci men Type: URINE SPECIMENOrdering Facility: [facility] Address: [address] [place] [address] Performed By: #### 2 4356-8 ####[facility] LABCLIA [id number] [address], [place] [address] [place] Hemoglobin Ql (U) Negative Normal Negative [facility] Comment on above: Order Comment: Speci men Type: URINE SPECIMENOrdering Facility: [facility] Address: [address] [place] [address] Performed By: #### 2 4356-8 ####[facility] LABCLIA [id number] [address], [place] [address] [place] Hyaline casts (Urine sed) [#/Area] 0 /[LPF] Normal 0 /LPF [facility] Comment on above: Order Comment: Speci men Type: URINE SPECIMENOrdering Facility: [facility] Address: [address] [place] [address] Performed By: #### 2 4356-8 ####[facility] LABCLIA [id number] [place] [id number] [place] Ketones Ql (U) Negative Normal Negative [facility] Comment on above: Order Comment: Speci men Type: URINE SPECIMENOrdering Facility: [facility] Address: [address] [place] [address] Performed By: #### 2 4356-8 ####[facility] LABCLIA [id number] [address], [facility] [place] Leukocyte esterase Test strip Ql (U) Negative Normal Negative [facility] Comment on above: Order Comment: Speci men Type: URINE SPECIMENOrdering Facility: [facility] Address: [address] [place] [address] Performed By: #### 2 4356-8 ####[facility] LABCLIA [id number] [place] [address] [place] Nitrite Ql (U) Negative Normal Negative [facility] Comment on above: Order Comment: Speci men Type: URINE SPECIMENOrdering Facility: [facility] Address: [address] [place] [address] Performed By: #### 2 4356-8 ####[facility] LABCLIA [id number] [place] [address] [place] pH (U) 5.5 [pH] Normal <8.5 [facility] Comment on above: Order Comment: Speci men Type: URINE SPECIMENOrdering Facility: [facility] Address: [address] [place] [address] Performed By: #### 2 4356-8 ####[facility] LABCLIA [id number] [place] [address] [place] Protein (U) [Mass/Vol] Trace Abnormal Negative [facility] Comment on above: Order Comment: Speci men Type: URINE SPECIMENOrdering Facility: [facility] Address: [address] [place] [address] Performed By: #### 2 4356-8 ####[facility] LABCLIA [id number] [place] [id number] [place] RBC LM.HPF (Urine sed) [#/Area] 0-2 /HPF Normal 0-2 /HPF [facility] Comment on above: Order Comment: Speci men Type: URINE SPECIMENOrdering Facility: [facility] Address: [address] [place] [address] Performed By: #### 2 4356-8 ####[facility] LABCLIA [id number] [place] [address] [place] Specific gravity (U) [Rel density] 1.025 Normal 1.005-1.030 [facility] Comment on above: Order Comment: Speci men Type: URINE SPECIMENOrdering Facility: [facility] Address: [address] [place] [address] Performed By: #### 2 4356-8 ####[facility] LABIA [id number] [place] [id number] [facility] Urobilinogen Ql (U) 0.2 EU/dL Normal 0.2-1.0 EU/dL [facility] Comment on above: Order Comment: Speci men Type: URINE SPECIMENOrdering Facility: [facility] Address: [address] [place] [address] Performed By: #### 2 4356-8 ####[facility] LABIA [id number] [place] [address] [place] WBC LM.HPF (Urine sed) [#/Area] 0-5 /HPF Normal 0-5 /HPF [facility] Comment on above: Order Comment: Speci men Type: URINE SPECIMENOrdering Facility: [facility] Address: [address] [place] [address] Performed By: #### 2 4356-8 ####[facility] LABIA [id number] [place] [id number] [place] 12 Lead EKGon 12-11-2024 12 Lead EKG [facility] [address] [place] [address] 12 Lead EKG 12/11/24 1638 MR#: [id number] Acct: [id number] Name: DIANNE ALVES Rep #: [id number] : 1955 69 From: Tej Corley MD [...] Abnormal ECG Confirmed by JORY CORTÉS, RANJAN ([id number]), associate editor JUSTYN TURPIN ([id number]) on 12/14/2024 10:57:23 AM Referred By: Confirmed By: RANJAN CORLEY MD 12/14/24 105 Date Tej Corley MD CC: Dr. Leonie Peterson MD; Dr. Titi Jesus MD Signed Normal [facility] Absolute neutrophil countOrd ered By: Titi Jesus on 12-11-2024 Neutrophils (Bld) [#/Vol] 2.7 10*3/uL 2.0-7.7 [facility] Anion gap in Serum or Plasma Ordered By: Titi Jesus on 12-11-2024 Anion gap [Moles/Vol] 13 mmol/L 02-11 [facility] BUN/creatinine ratioOrdered By: Titi Jesus on 12-11-2024 Urea nitrogen/Creatinine [Mass ratio] 11.2 mg/mg - [facility] Basic Metabolic Profile (BMP )on 12-11-2024 BUN/CRE 11.2 RATIO Normal 07-19 [facility] Comment on above: Performed By: #### L 509.7000 #### [facility] [address] [place], [address] Calcium [Mass/Vol] 9.6 mg/dL Normal 7.6-11.0 [facility] Comment on above: Performed By: #### L 509.7000 #### [facility] [address] [place], [address] Chloride [Moles/Vol] 105 mmol/L Normal 98-108 [facility] Comment on above: Performed By: #### L 509.7000 #### [facility] [address] [place], [address] CO2 [Moles/Vol] 23.3 mmol/L Normal 21.0-32.0 [facility] Comment on above: Performed By: #### L 509.7000 #### [facility] [address] [place], [address] Creatinine [Mass/Vol] 1.03 mg/dL Normal 0.70-1.20 [facility] Comment on above: Performed By: #### L 509.7000 #### [facility] [address] [place], [address] ECRCL 60.72 ml/min Normal 50-250 [facility] Comment on above: Performed By: #### L 509.7000 #### [facility] [address] [place], [address] GAP 13 Normal 5-15 [facility] Comment on above: Performed By: #### L 509.7000 #### [facility] [address] [place], [address] GFR/1.73 sq M.predicted among non-blacks MDRD (S/P/Bld) [Vol rate/Area] 59 mL/min/{1.73_m2} Low >60 [facility] Comment on above: Result Comment: mL/m in/1.73m2 CKD-EPI Creatinine Equation (2020) Performed By: #### L 509.7000 #### [facility] [address] [place], [address] Glucose [Mass/Vol] 120 mg/dL High 70-99 [facility] Comment on above: Performed By: #### L 509.7000 #### [facility] [address] [place], [address] Potassium [Moles/Vol] 3.7 mmol/L Normal 3.3-5.1 [facility] Comment on above: Performed By: #### L 509.7000 #### [facility] [address] [place], [place], [address] Sodium [Moles/Vol] 141 mmol/L Normal 133-145 [facility] Comment on above: Performed By: #### L 509.7000 #### [facility] [address] [place], [place], [address] Urea nitrogen [Mass/Vol] 12 mg/dL Normal 4-19 [facility] Comment on above: Performed By: #### L 509.7000 #### [facility] [address] [place], [place], [address] Basic metabolic 2000 panelon 12-11-2024 Anion gap [Moles/Vol] 12 mmol/L Normal 8-15 [facility] Comment on above: Order Comment: Speci men Type: BLOOD SPECIMENOrdering Facility: [facility] Address: [address] [place] [address] Performed By: #### 2 4321-2, 3015-3, ####[facility] LABIA [id number] [place] [address] [place] Calcium [Mass/Vol] 9.8 mg/dL Normal 8.5-10.2 [facility] Comment on above: Order Comment: Speci men Type: BLOOD SPECIMENOrdering Facility: [facility] Address: [address] [place] [address] Performed By: #### 2 4321-2, 3015-3, ####[facility] LABCLIA [id number] [place] [id number] [place] Chloride [Moles/Vol] 104 mmol/L Normal 98-107 [facility] Comment on above: Order Comment: Speci men Type: BLOOD SPECIMENOrdering Facility: [facility] Address: [address] [place] [id number] Performed By: #### 2 4321-2, 6-3, ####[facility] LABCLIA [id number] [place] [id number] [place] CO2 [Moles/Vol] 26 mmol/L Normal 22-30 [facility] Comment on above: Order Comment: Speci men Type: BLOOD SPECIMENOrdering Facility: [facility] Address: [address] [place] [address] Performed By: #### 2 4321-2, 3015-3, ####[facility] LABIA [id number] [place] [id number] [place] Creatinine [Mass/Vol] 1.00 mg/dL High 0.58-0.96 [facility] Comment on above: Order Comment: Speci men Type: BLOOD SPECIMENOrdering Facility: [facility] Address: [address] [place] [address] Performed By: #### 2 4321-2, 3, ####[facility] LABIA [id number] [place] [address] [place] Creatinine and Glomerular filtration rate.predicted panel (S/P/Bld) 61 mL/min/1.73m??? Normal >=60 [facility] Comment on above: Order Comment: Speci men Type: BLOOD SPECIMENOrdering Facility: [facility] Address: [address] [place] [address] Result Comment: Sigrid mated Glomerular Filtration Rate [...] GFR. Performed By: #### 2 4321-2, 6-3, ####[facility] LABCLIA [id number] [place] [id number] [place] Glucose [Mass/Vol] 103 mg/dL High 74-99 [facility] Comment on above: Order Comment: Speci men Type: BLOOD SPECIMENOrdering Facility: [facility] Address: [address] [place] [address] Result Comment: The [place] Diabetes Association (ADA) provides guidance for cutoff [...] Standards of Medical Care in Diabetes 2016, [place] [employer]. Diabetes Care. 2016.39(Suppl 1). Performed By: #### 2 4321-2, 3015-3, ####[facility] [id number] [place] [address] [place] Potassium [Moles/Vol] 4.0 mmol/L Normal 3.7-5.1 [facility] Comment on above: Order Comment: Speci men Type: BLOOD SPECIMENOrdering Facility: [facility] Address: [address] [place], [place] [address] Performed By: #### 2 4321-2, 3, ####[facility] [id number] [place] [address] [place] Sodium [Moles/Vol] 142 mmol/L Normal 136-144 [facility] Comment on above: Order Comment: Speci men Type: BLOOD SPECIMENOrdering Facility: [facility] Address: [address] [place], [place] [address] Performed By: #### 2 4321-2, 3, ####[facility] LABCLIA [id number] [address] [address] [place] Urea nitrogen [Mass/Vol] 10 mg/dL Normal 7-21 [facility] Comment on above: Order Comment: Speci men Type: BLOOD SPECIMENOrdering Facility: [facility] Address: [address] [place] [address] Performed By: #### 2 4321-2, 3016-3, 49233-0 ####[facility] LABCLIA [id number] [address] [address] [place] Basophil percentageOrdered B y: Titi Jesus on 12-11-2024 Basophils/100 WBC (Bld) 0.5 % 0-1 [facility] CBC W Auto Differential pane l (Bld)on 12-11-2024 Basophils (Bld) [#/Vol] 10*3/uL Normal <0.11 [facility] Comment on above: Order Comment: Speci men Type: BLOOD SPECIMENOrdering Facility: [facility] Address: [address] [place] [address] Performed By: #### 5 7021-8 ####[facility] LABCLIA [id number] [place] [address] [place] Basophils/100 WBC (Bld) 0.4 % Normal [facility] Comment on above: Order Comment: Speci men Type: BLOOD SPECIMENOrdering Facility: [facility] Address: [address] [place] [address] Performed By: #### 5 7021-8 ####[facility] LABCLIA [id number] [place] [address] [place] Differential cell count method Nom (Bld) Auto Normal [facility] Comment on above: Order Comment: Speci men Type: BLOOD SPECIMENOrdering Facility: [facility] Address: [address] [place] [address] Performed By: #### 5 7021-8 ####[facility] LABCLIA [id number] [place] [address] [place] Eosinophils (Bld) [#/Vol] 0.26 10*3/uL Normal <0.46 [facility] Comment on above: Order Comment: Speci men Type: BLOOD SPECIMENOrdering Facility: [facility] Address: [address] [place] [address] Performed By: #### 5 7021-8 ####[facility] LABCLIA [id number] [place] [address] [place] Eosinophils/100 WBC (Bld) 4.7 % Normal [facility] Comment on above: Order Comment: Speci men Type: BLOOD SPECIMENOrdering Facility: [facility] Address: [address] [place] [address] Performed By: #### 5 7021-8 ####[facility] LABCLIA [id number] [place] [address] [place] Erythrocyte distribution width (RBC) [Ratio] 14.4 % Normal 11.5-15.0 [facility] Comment on above: Order Comment: Speci men Type: BLOOD SPECIMENOrdering Facility: [facility] Address: [address] [place] [address] Performed By: #### 5 7021-8 ####[facility] LABCLIA [id number] [place] [address] [place] Hematocrit (Bld) [Volume fraction] 41.9 % Normal 36.0-46.0 [facility] Comment on above: Order Comment: Speci men Type: BLOOD SPECIMENOrdering Facility: [facility] Address: [address] [place] [address] Performed By: #### 5 7021-8 ####[facility] LABCLIA [id number] [address], [facility]95 [place] [place] Hemoglobin (Bld) [Mass/Vol] 13.5 g/dL Normal 11.5-15.5 [facility] Comment on above: Order Comment: Speci men Type: BLOOD SPECIMENOrdering Facility: [facility] Address: [address] [place] [address] Performed By: #### 5 7021-8 ####[facility] LABCLIA [id number] [address] [place] [address] [place] Immature granulocytes (Bld) [#/Vol] 10*3/uL Normal <0.10 [facility] Comment on above: Order Comment: Speci men Type: BLOOD SPECIMENOrdering Facility: [facility] Address: [address] [place] [address] Performed By: #### 5 7021-8 ####[facility] LABCLIA [id number] [place] [address] [place] Immature granulocytes/100 WBC (Bld) 0.0 % Normal [facility] Comment on above: Order Comment: Speci men Type: BLOOD SPECIMENOrdering Facility: [facility] Address: [address] [place] [address] Performed By: #### 5 7021-8 ####[facility] LABCLIA [id number] [place] [address] [place] Lymphocytes (Bld) [#/Vol] 1.81 10*3/uL Normal 1.00-4.00 [facility] Comment on above: Order Comment: Speci men Type: BLOOD SPECIMENOrdering Facility: [facility] Address: [address] [place] [address] Performed By: #### 5 7021-8 ####[facility] LABCLIA [id number] [place] [id number] [place] Lymphocytes/100 WBC (Bld) 32.4 % Normal [facility] Comment on above: Order Comment: Speci men Type: BLOOD SPECIMENOrdering Facility: [facility] Address: [address] [place] [address] Performed By: #### 5 7021-8 ####[facility] LABIA [id number] [place] [address] [place] MCH (RBC) [Entitic mass] 28.8 pg Normal 26.0-34.0 [facility] Comment on above: Order Comment: Speci men Type: BLOOD SPECIMENOrdering Facility: [facility] Address: [address] [place] [address] Performed By: #### 5 7021-8 ####[facility] LABIA [id number] [place] [address] [place] MCHC (RBC) [Mass/Vol] 32.2 g/dL Normal 30.5-36.0 [facility] Comment on above: Order Comment: Speci men Type: BLOOD SPECIMENOrdering Facility: [facility] Address: [address] [place] [address] Performed By: #### 5 7021-8 ####[facility] LABIA [id number] [place] [address] [place] MCV (RBC) [Entitic vol] 89.5 fL Normal 80.0-100.0 [facility] Comment on above: Order Comment: Speci men Type: BLOOD SPECIMENOrdering Facility: [facility] Address: [address] [place] [address] Performed By: #### 5 7021-8 ####[facility] [id number] [place] [address] [place] Monocytes (Bld) [#/Vol] 0.39 10*3/uL Normal <0.87 [facility] Comment on above: Order Comment: Speci men Type: BLOOD SPECIMENOrdering Facility: [facility] Address: [address] [place] [address] Performed By: #### 5 7021-8 ####[facility] LABIA [id number] [address] [place] Monocytes/100 WBC (Bld) 7.0 % Normal [facility] Comment on above: Order Comment: Speci men Type: BLOOD SPECIMENOrdering Facility: [facility] Address: [address] [place] [address] Performed By: #### 5 7021-8 ####[facility] LABCLIA [id number] [place] [id number] [place] Neutrophils (Bld) [#/Vol] 3.11 10*3/uL Normal 1.45-7.50 [facility] Comment on above: Order Comment: Speci men Type: BLOOD SPECIMENOrdering Facility: [facility] Address: [address] [place] [address] Performed By: #### 5 7021-8 ####[facility] LABCLIA [id number] [place] [address] [place] Neutrophils/100 WBC (Bld) 55.5 % Normal [facility] Comment on above: Order Comment: Speci men Type: BLOOD SPECIMENOrdering Facility: [facility] Address: [address] [place] [address] Performed By: #### 5 7021-8 ####[facility] LABCLIA [id number] [place] [address] [place] Nucleated RBC (Bld) [#/Vol] 10*3/uL Normal <0.01 [facility] Comment on above: Order Comment: Speci men Type: BLOOD SPECIMENOrdering Facility: [facility] Address: [address] [place] [address] Performed By: #### 5 7021-8 ####[facility] LABCLIA [id number] [place] [address] [place] Nucleated RBC/100 WBC (Bld) [Ratio] 0.0 /100 WBC Normal [facility] Comment on above: Order Comment: Speci men Type: BLOOD SPECIMENOrdering Facility: [facility] Address: [address] [place] [address] Performed By: #### 5 7021-8 ####[facility] LABCLIA [id number] [facility] [address] [place] [address] [place] Platelet mean volume (Bld) [Entitic vol] 10.2 fL Normal 9.0-12.7 [facility] Comment on above: Order Comment: Speci men Type: BLOOD SPECIMENOrdering Facility: [facility] Address: [address] [place] [address] Performed By: #### 5 7021-8 ####[facility] LABCLIA [id number] [address] [place] [address] [place] Platelets (Bld) [#/Vol] 259 10*3/uL Normal 150-400 [facility] Comment on above: Order Comment: Speci men Type: BLOOD SPECIMENOrdering Facility: [facility] Address: [address] [place] [address] Performed By: #### 5 7021-8 ####[facility] LABIA [id number] [address] [place] [address] [place] RBC (Bld) [#/Vol] 4.68 10*6/uL Normal 3.90-5.20 [facility] Comment on above: Order Comment: Speci men Type: BLOOD SPECIMENOrdering Facility: [facility] Address: [address] [place] [address] Performed By: #### 5 7021-8 ####[facility] LABCLIA [id number] [address] [place] [address] [place] WBC (Bld) [#/Vol] 5.59 10*3/uL Normal 3.70-11.00 [facility] Comment on above: Order Comment: Speci men Type: BLOOD SPECIMENOrdering Facility: [facility] Address: [address] [place] [address] Performed By: #### 5 7021-8 ####[facility] LABIA [id number] [address] [place] [address] [place] CBC W/Diff, Automatedon 03-1 Absolute Lymph 2.11 X10 3/uL Normal 0.83-4.51 [facility] Comment on above: Performed By: #### L 509.7000 #### [facility] [address] [place], [address] Absolute Neut 2.7 X10 3/uL Normal 2.0-7.7 [facility] Comment on above: Performed By: #### L 509.7000 #### [facility] [address] [place], [address] Basophils/100 WBC (Bld) 0.5 % Normal 0-1 [facility] Comment on above: Performed By: #### L 509.7000 #### [facility] [address] [place], [address] Eosinophils/100 WBC (Bld) 4.8 % Normal 0-5 [facility] Comment on above: Performed By: #### L 509.7000 #### [facility] [address] [place], [address] Erythrocyte distribution width (RBC) [Ratio] 14.3 % Normal 11.6-14.6 [facility] Comment on above: Performed By: #### L 509.7000 #### [facility] [address] [place], [address] Hematocrit (Bld) [Volume fraction] 39.5 % Normal 37-47 [facility] Comment on above: Performed By: #### L 509.7000 #### [facility] [address] [place], [address] Hemoglobin (Bld) [Mass/Vol] 13.0 g/dL Normal 12.0-15.0 [facility] Comment on above: Performed By: #### L 509.7000 #### [facility] [address] [place], [address] IG% 0.200 Normal 0.0-0.9 [facility] Comment on above: Result Comment: IG% - Immature Granulocytes (promyelocytes, myelocytes and metamyelocytes) > 1% indicates that a LEFT SHIFT is Present. Performed By: #### L 509.7000 #### [facility] [address] [place], [address] Lymphocytes/100 WBC (Bld) 37.9 % Normal 19-41 [facility] Comment on above: Performed By: #### L 509.7000 #### [facility] [address] [place], [address] MCH (RBC) [Entitic mass] 28.8 pg Normal 27.0-32.0 [facility] Comment on above: Performed By: #### L 509.7000 #### [facility] [address] [place], [address] MCHC (RBC) [Mass/Vol] 32.9 g/dL Normal 32-36 [facility] Comment on above: Performed By: #### L 509.7000 #### [facility] [address] [place], [address] MCV (RBC) [Entitic vol] 87.6 fL Normal 81-99 [facility] Comment on above: Performed By: #### L 509.7000 #### [facility] [address] [place], [address] Monocytes/100 WBC (Bld) 7.5 % Normal 0-10 [facility] Comment on above: Performed By: #### L 509.7000 #### [facility] [address] [place], [address] Neutrophils/100 WBC (Bld) 49.1 % Normal 47-70 [facility] Comment on above: Performed By: #### L 509.7000 #### [facility] [address] [place], [address] Nucleated RBC (Bld) [#/Vol] 0 10*3/uL Normal 0-5 [facility] Comment on above: Performed By: #### L 509.7000 #### [facility] [address] [place], [address] Platelet mean volume (Bld) [Entitic vol] 9.5 fL Normal 6.2-12.0 [facility] Comment on above: Performed By: #### L 509.7000 #### [facility] [address] [place], [address] Platelets (Bld) [#/Vol] 266 10*3/uL Normal 150-450 [facility] Comment on above: Performed By: #### L 509.7000 #### [facility] [address] [place], [address] RBC (Bld) [#/Vol] 4.51 10*6/uL Normal 4.2-5.4 [facility] Comment on above: Performed By: #### L 509.7000 #### [facility] [address] [place], [address] RDW SD 45.6 fl High 35.1-43.9 [facility] Comment on above: Performed By: #### L 509.7000 #### [facility] [address] [place], [address] WBC (Bld) [#/Vol] 5.6 10*3/uL Normal 4.4-11.0 [facility] Comment on above: Performed By: #### L 509.7000 #### [facility] [address] [place], [address] CNOVon 12-11-2024 CNOV Normal [facility] CTA Chest W/WO Contraston CTA Chest W/WO Contrast [facility] Imaging Services [address] [place] [address] CTA Chest W/WO Contrast MR#: [id number] Acct: [id number] Name: DIANNE ALVES Rep #: [id number] : 1955 F 69 From: Ramirez griggs MD PCP: Dr. Leonie Peterson MD Status: REG ER Study: CTA Chest W/WO Contrast Date of Exam: 12/11/24 Exam# [id number] Ordering Dr: Titi Jesus MD PROCEDURE: CTA [...] iterative reconstruction technique). Reading Location: [facility] CC: Dr. Leonie Peterson MD; Dr. Titi Jesus MD Ict Analyst: Signed Normal [facility] Carbon dioxide, total [Moles /volume] in Central venous bloodOrdered By: Titi Jesus on 12-11-2024 CO2 [Moles/Vol] 23.3 mmol/L 21.0-32.0 [facility] Chloride assayOrdered By: Zheng Jesus on 12-11-2024 Chloride [Moles/Vol] 105 mmol/L 98-108 [facility] D dimer FEU PPP-mCncon 12-11 Fibrin D-dimer FEU (PPP) [Mass/Vol] 4180 ng/mL FEU High <500 [facility] Comment on above: Order Comment: Speci men Type: BLOOD SPECIMENOrdering Facility: [facility] Address: [address] [place] [address] Performed By: #### 4 8065-7 ####[facility] LABCLIA [id number] [place] [address] [place] [id number] 12-11-2024 ECG01 Normal [facility] Emergency Department Summary on 12-11-2024 Emergency Department Summary [facility] Medical Records Department [address] [place] [address] Emergency Department Summary 12/11/24 MR#: [id number] Acct: [id number] Name: DIANNE ALVES Rep #: [id number] : 1955 69 From: Titi Jesus MD PCP: Dr. Leonie Peterson MD Status:REG ER Location: ED HPI History of Present Illness Chief Complaint: Abn Labs Informant: patient Onset/Context/Timing Onset: Days Context: Gradual Onset Timing: Continuous Current Severity: Mild Maximum Severity: Mild Narrative Narrative: 69-year-old female history of prior [place], hep C, COPD, hypertension, prior lower extremity [...] Prior similar symptoms: No Recent Illness/Hospitalization: Yes [facility] Medical History Type 2 acute myocardial infarction [...] hematuria Musculoskeletal (more content not included)... Normal [facility] Eosinophil percentageOrdered By: Titi Jesus on 12-11-2024 Eosinophils/100 WBC (Bld) 4.8 % 0-5 [facility] Erythrocyte distribution wid th ratioOrdered By: Titi Jesus on 12-11-2024 Erythrocyte distribution width (RBC) [Ratio] 14.3 % 11.6-14.6 [facility] Erythrocyte distribution wid th standard deviationOrdered By: Titi Jesus on 12-11-2024 Erythrocyte distribution width (RBC) [Entitic vol] 45.6 fL High 35.1-43.9 [facility] Estimation of creatinine adriana aranceOrdered By: Titi Jesus on 12-11-2024 Estimated Creatinine Clearance Calc 60.72 ml/min 50-250 [facility] Fibrin D-dimer FEU (PPP) [Ma ss/Vol]on 12-11-2024 D DIMER AGE-RELATED CUTOFF 680 ng/mL FEU Normal [facility] Comment on above: Order Comment: Speci men Type: BLOOD SPECIMENOrdering Facility: [facility] Address: [address] [place] [address] Performed By: #### 4 8065-7 ####[facility] LABCLIA [id number] [place] [address] [place] GFR/1.73 sq M.predicted zeina g non-blacks MDRD (S/P/Bld) [Vol rate/Area]Ordered By: Titi Jesus on 12-11-2024 Estimated GFR (MDRD) Non-Af Amer 59 Low >60 [facility] Comment on above: mL/min/1.73m2 CKD-EP I Creatinine Equation (2020) Hematocrit Auto (Bld) [Volum e fraction]Ordered By: Titi Jesus on 12-11-2024 Hematocrit (Bld) [Volume fraction] 39.5 % 37-47 [facility] Hemoglobin measurementOrdere d By: Titi Jesus on 12-11-2024 Hemoglobin (Bld) [Mass/Vol] 13.0 g/dL 12.0-15.0 [facility] Immature granulocytes/100 WB C Auto (Bld)Ordered By: Titi Jesus on 12-11-2024 Immature granulocytes/100 WBC (Bld) 0.200 % 0.0-0.9 [facility] Comment on above: IG% - Immature Granu locytes (promyelocytes, myelocytes and metamyelocytes) > 1% indicates that a LEFT SHIFT is Present. L499.0042on 12-11-2024 Trop T High Sen Normal <=14 [facility] Comment on above: Result Comment: Moraima abel via OM: Ordered Performed By: #### L 509.7000 #### [facility] [address] [place], [address] L501.4021on 12-11-2024 Trop T High Sen 14 ng/L Normal <=14 [facility] Comment on above: Performed By: #### L 501.4021 ####[facility] [address] [place], [address] Lymphocytes Auto (Unsp spec) [#/Vol]Ordered By: Titi Jesus on 12-11-2024 Lymphocytes (Bld) [#/Vol] 2.11 10*3/uL 0.83-4.51 [facility] Lymphocytes/100 WBC Auto (Un sp spec)Ordered By: Titi Jesus on 12-11-2024 Lymphocytes/100 WBC (Bld) 37.9 % 19-41 [facility] MCV (mean corpuscular volume ) determinationOrdered By: Titi Jesus on 12-11-2024 MCV (RBC) [Entitic vol] 87.6 fL 81-99 [facility] Magnesium SerPl-mCncon 12-11 Magnesium [Mass/Vol] 2.0 mg/dL Normal 1.7-2.3 [facility] Comment on above: Order Comment: Speci men Type: BLOOD SPECIMENOrdering Facility: [facility] Address: [address] [place] [address] Performed By: #### 2 4321-2, 3016-3, 75847-7 ####[facility] LABCLIA [id number] [place] [address] [place] Mean corpuscular hemoglobin (MCH) determinationOrdered By: Titi Jesus on 12-11-2024 MCH (RBC) [Entitic mass] 28.8 pg 27.0-32.0 [facility] Mean corpuscular hemoglobin concentration (MCHC) determinationOrdered By: Titi Jesus on 12-11-2024 MCHC (RBC) [Mass/Vol] 32.9 g/dL 32-36 [facility] Mean platelet volume determi nationOrdered By: Titi Jesus on 12-11-2024 Platelet mean volume (Bld) [Entitic vol] 9.5 fL 6.2-12.0 [facility] Monocyte percentageOrdered B y: Titi Jesus on 12-11-2024 Monocytes/100 WBC (Bld) 7.5 % 0-10 [facility] Neutrophil percentageOrdered By: Titi Jesus on 12-11-2024 Neutrophils/100 WBC (Bld) 49.1 % 47-70 [facility] No Panel InformationOrdered By: Titi Jesus on 12-11-2024 Troponin T High Sensitivity 14 ng/L <14 [facility] Nucleated red blood cell per centageOrdered By: Titi Jesus on 12-11-2024 Nucleated RBC/100 WBC (Bld) [Ratio] 0 % 0-5 [facility] Platelet countOrdered By: Zheng Jesus on 12-11-2024 Platelets (Bld) [#/Vol] 266 10*3/uL 150-450 [facility] Potassium (Unsp spec) [Mass/ Vol]Ordered By: Titi Jesus on 12-11-2024 Potassium [Moles/Vol] 3.7 mmol/L 3.3-5.1 [facility] RBC Auto (Bld) [#/Vol]Ordere d By: Titi Jesus on 12-11-2024 RBC (Bld) [#/Vol] 4.51 10*6/uL 4.2-5.4 [facility] Serum creatinine measurement (mass/volume)Ordered By: Titi Jesus on 12-11-2024 Creatinine [Mass/Vol] 1.03 mg/dL 0.70-1.20 [facility] Serum glucose measurement (m ass/volume)Ordered By: Titi Jesus on 12-11-2024 Glucose [Mass/Vol] 120 mg/dL High 70-99 [facility] Serum or plasma calcium margarita urement (mass/volume)Ordered By: Titi Jesus on 12-11-2024 Calcium [Mass/Vol] 9.6 mg/dL 7.6-11.0 [facility] Serum or plasma urea nitroge n measurement (mass/volume)Ordered By: Titi Jesus on 12-11-2024 Urea nitrogen [Mass/Vol] 12 mg/dL 4-19 [facility] Sodium levelOrdered By: Titi Jesus on 12-11-2024 Sodium [Moles/Vol] 141 mmol/L 133-145 [facility] TSH SerPl-aCncon 12-11-2024 TSH Qn 0.610 m[IU]/L Normal 0.270-4.200 [facility] Comment on above: Order Comment: Speci men Type: BLOOD SPECIMENOrdering Facility: [facility] Address: [address] [place] [address] Performed By: #### 2 4321-2, 3016-3, 49675-6 ####[facility] LABCLIA [id number] [address] White blood cell (WBC) count Ordered By: Titi Jesus on 12-11-2024 WBC (Bld) [#/Vol] 5.6 10*3/uL 4.4-11.0 [facility] XR CHEST 2V FRONTAL/LATon XR CHEST 2V FRONTAL/LAT Normal [facility] BD DXA - AXIAL SKELETONon BD DXA - AXIAL SKELETON Normal [facility] BD DXA TRABECLR BONE SCORE ( TBS)on 12-10-2024 BD DXA TRABECLR BONE SCORE (TBS) Normal [facility] Basic Metabolic Profile (BMP )on 11-26-2024 BUN Normal 7-18 [facility] Comment on above: Result Comment: Canc elled via OM: Order cancelled - Patient discharged Performed By: #### L 100.0100, L500.2500 #### [facility] [address] [place], [address] BUN/CRE Normal 10-20 [facility] Comment on above: Result Comment: Canc elled via OM: Order cancelled - Patient discharged Performed By: #### L 100.0100, L500.2500 #### [facility] [address] [place], [address] CA,Total Normal 8.5-10.1 [facility] Comment on above: Result Comment: Canc elled via OM: Order cancelled - Patient discharged Performed By: #### L 100.0100, L500.2500 #### [facility] [address] [place], [address] CL Normal 98-107 [facility] Comment on above: Result Comment: Canc elled via OM: Order cancelled - Patient discharged Performed By: #### L 100.0100, L500.2500 #### [facility] [address] [place], [address] CO2 Normal 21.0-32.0 [facility] Comment on above: Result Comment: Canc elled via OM: Order cancelled - Patient discharged Performed By: #### L 100.0100, L500.2500 #### [facility] [address] [place], [address] CREAT,SERUM Normal 0.55-1.02 [facility] Comment on above: Result Comment: Canc elled via OM: Order cancelled - Patient discharged Performed By: #### L 100.0100, L500.2500 #### [facility] [address] [place], [address] EST GFR Normal >60 [facility] Comment on above: Result Comment: Canc elled via OM: Order cancelled - Patient discharged Performed By: #### L 100.0100, L500.2500 #### [facility] [address] [place], [address] EST GFR - AA Normal >60 [facility] Comment on above: Result Comment: Canc elled via OM: Order cancelled - Patient discharged Performed By: #### L 100.0100, L500.2500 #### [facility] [address] [place], [address] GAP Normal 5-15 [facility] Comment on above: Result Comment: Canc elled via OM: Order cancelled - Patient discharged Performed By: #### L 100.0100, L500.2500 #### [facility] [address] [place], [address] GLU Normal 74-106 [facility] Comment on above: Result Comment: Canc elled via OM: Order cancelled - Patient discharged Performed By: #### L 100.0100, L500.2500 #### [facility] [address] [place], [address] Potassium Normal 3.5-5.1 [facility] Comment on above: Result Comment: Canc elled via OM: Order cancelled - Patient discharged Performed By: #### L 100.0100, L500.2500 #### [facility] [address] [place], [address] Basic Metabolic Profile (BMP) Normal 136-145 [facility] Comment on above: Result Comment: Canc elled via OM: Order cancelled - Patient discharged Performed By: #### L 100.0100, L500.2500 #### [facility] [address] [place], [address] CBC W/Diff, Automatedon 02-2 Absolute Neut Normal 2.0-7.7 [facility] Comment on above: Result Comment: Canc elled via OM: Order cancelled - Patient discharged Performed By: #### L 100.0100, L500.2500 #### [facility] [address] [place], [address] HCT Normal 37-47 [facility] Comment on above: Result Comment: Canc elled via OM: Order cancelled - Patient discharged Performed By: #### L 100.0100, L500.2500 #### [facility] [address] [place], [address] HGB Normal 12.0-15.0 [facility] Comment on above: Result Comment: Canc elled via OM: Order cancelled - Patient discharged Performed By: #### L 100.0100, L500.2500 #### [facility] [address] [place], [address] MCH Normal 27.0-32.0 [facility] Comment on above: Result Comment: Canc elled via OM: Order cancelled - Patient discharged Performed By: #### L 100.0100, L500.2500 #### [facility] [address] [place], [address] MCHC Normal 32-36 [facility] Comment on above: Result Comment: Canc elled via OM: Order cancelled - Patient discharged Performed By: #### L 100.0100, L500.2500 #### [facility] [address] [place], [address] MCV Normal 81-99 [facility] Comment on above: Result Comment: Canc elled via OM: Order cancelled - Patient discharged Performed By: #### L 100.0100, L500.2500 #### [facility] [address] [place], [address] NEUT% Normal 47-70 [facility] Comment on above: Result Comment: Canc elled via OM: Order cancelled - Patient discharged Performed By: #### L 100.0100, L500.2500 #### [facility] [address] [place], [address] PLT Normal 150-450 [facility] Comment on above: Result Comment: Canc elled via OM: Order cancelled - Patient discharged Performed By: #### L 100.0100, L500.2500 #### [facility] [address] [place], [address] RBC Normal 4.2-5.4 [facility] Comment on above: Result Comment: Canc elled via OM: Order cancelled - Patient discharged Performed By: #### L 100.0100, L500.2500 #### [facility] [address] [place], [address] RDW CV Normal 11.6-14.6 [facility] Comment on above: Result Comment: Canc elled via OM: Order cancelled - Patient discharged Performed By: #### L 100.0100, L500.2500 #### [facility] [address] [place], [address] RDW SD Normal 35.1-43.9 [facility] Comment on above: Result Comment: Canc elled via OM: Order cancelled - Patient discharged Performed By: #### L 100.0100, L500.2500 #### [facility] [address] [place], [address] WBC Normal 4.4-11.0 [facility] Comment on above: Result Comment: Canc elled via OM: Order cancelled - Patient discharged Performed By: #### L 100.0100, L500.2500 #### [facility] [address] [place], [address] Basic Metabolic Profile (BMP )on 11-25-2024 BUN Normal 7-18 [facility] Comment on above: Result Comment: Canc elled via OM: Order cancelled - Patient discharged Performed By: #### L 100.0100, L500.2500 #### [facility] [address] [place], [address] BUN/CRE Normal 10-20 [facility] Comment on above: Result Comment: Canc elled via OM: Order cancelled - Patient discharged Performed By: #### L 100.0100, L500.2500 #### [facility] [address] [place], [address] CA,Total Normal 8.5-10.1 [facility] Comment on above: Result Comment: Canc elled via OM: Order cancelled - Patient discharged Performed By: #### L 100.0100, L500.2500 #### [facility] [address] [place], [address] CL Normal 98-107 [facility] Comment on above: Result Comment: Canc elled via OM: Order cancelled - Patient discharged Performed By: #### L 100.0100, L500.2500 #### [facility] [address] [place], [address] CO2 Normal 21.0-32.0 [facility] Comment on above: Result Comment: Canc elled via OM: Order cancelled - Patient discharged Performed By: #### L 100.0100, L500.2500 #### [facility] [address] [place], [address] CREAT,SERUM Normal 0.55-1.02 [facility] Comment on above: Result Comment: Canc elled via OM: Order cancelled - Patient discharged Performed By: #### L 100.0100, L500.2500 #### [facility] [address] [place], [address] EST GFR Normal >60 [facility] Comment on above: Result Comment: Canc elled via OM: Order cancelled - Patient discharged Performed By: #### L 100.0100, L500.2500 #### [facility] [address] [place], [address] EST GFR - AA Normal >60 [facility] Comment on above: Result Comment: Canc elled via OM: Order cancelled - Patient discharged Performed By: #### L 100.0100, L500.2500 #### [facility] [address] [place], [address] GAP Normal 5-15 [facility] Comment on above: Result Comment: Canc elled via OM: Order cancelled - Patient discharged Performed By: #### L 100.0100, L500.2500 #### [facility] [address] [place], [address] GLU Normal 74-106 [facility] Comment on above: Result Comment: Canc elled via OM: Order cancelled - Patient discharged Performed By: #### L 100.0100, L500.2500 #### [facility] [address] [place], [address] Potassium Normal 3.5-5.1 [facility] Comment on above: Result Comment: Canc elled via OM: Order cancelled - Patient discharged Performed By: #### L 100.0100, L500.2500 #### [facility] [address] [place], [address] Basic Metabolic Profile (BMP) Normal 136-145 [facility] Comment on above: Result Comment: Canc elled via OM: Order cancelled - Patient discharged Performed By: #### L 100.0100, L500.2500 #### [facility] [address] [place], [address] CBC W/Diff, Automatedon 02-2 Absolute Neut Normal 2.0-7.7 [facility] Comment on above: Result Comment: Canc elled via OM: Order cancelled - Patient discharged Performed By: #### L 100.0100, L500.2500 #### [facility] [address] [place], [address] HCT Normal 37-47 [facility] Comment on above: Result Comment: Canc elled via OM: Order cancelled - Patient discharged Performed By: #### L 100.0100, L500.2500 #### [facility] [address] [place], [address] HGB Normal 12.0-15.0 [facility] Comment on above: Result Comment: Canc elled via OM: Order cancelled - Patient discharged Performed By: #### L 100.0100, L500.2500 #### [facility] [address] [place], [address] MCH Normal 27.0-32.0 [facility] Comment on above: Result Comment: Canc elled via OM: Order cancelled - Patient discharged Performed By: #### L 100.0100, L500.2500 #### [facility] [address] [place], [address] MCHC Normal 32-36 [facility] Comment on above: Result Comment: Canc elled via OM: Order cancelled - Patient discharged Performed By: #### L 100.0100, L500.2500 #### [facility] [address] [place], [address] MCV Normal 81-99 [facility] Comment on above: Result Comment: Canc elled via OM: Order cancelled - Patient discharged Performed By: #### L 100.0100, L500.2500 #### [facility] [address] [place], [address] NEUT% Normal 47-70 [facility] Comment on above: Result Comment: Canc elled via OM: Order cancelled - Patient discharged Performed By: #### L 100.0100, L500.2500 #### [facility] [address] [place], [address] PLT Normal 150-450 [facility] Comment on above: Result Comment: Canc elled via OM: Order cancelled - Patient discharged Performed By: #### L 100.0100, L500.2500 #### [facility] [address] [place], [address] RBC Normal 4.2-5.4 [facility] Comment on above: Result Comment: Canc elled via OM: Order cancelled - Patient discharged Performed By: #### L 100.0100, L500.2500 #### [facility] [address] [place], [address] RDW CV Normal 11.6-14.6 [facility] Comment on above: Result Comment: Canc elled via OM: Order cancelled - Patient discharged Performed By: #### L 100.0100, L500.2500 #### [facility] [address] [place], [address] RDW SD Normal 35.1-43.9 [facility] Comment on above: Result Comment: Canc elled via OM: Order cancelled - Patient discharged Performed By: #### L 100.0100, L500.2500 #### [facility] [address] [place], [address] WBC Normal 4.4-11.0 [facility] Comment on above: Result Comment: Canc elled via OM: Order cancelled - Patient discharged Performed By: #### L 100.0100, L500.2500 #### [facility] [address] [place], [address] Basic Metabolic Profile (BMP )on 11-24-2024 BUN Normal 7-18 [facility] Comment on above: Result Comment: Canc elled via OM: Order cancelled - Patient discharged Performed By: #### L 509.7000 #### [facility] [address] [place], [address] BUN/CRE Normal 10-20 [facility] Comment on above: Result Comment: Canc elled via OM: Order cancelled - Patient discharged Performed By: #### L 509.7000 #### [facility] [address] [place], [address] CA,Total Normal 8.5-10.1 [facility] Comment on above: Result Comment: Canc elled via OM: Order cancelled - Patient discharged Performed By: #### L 509.7000 #### [facility] [address] [place], [address] CL Normal 98-107 [facility] Comment on above: Result Comment: Canc elled via OM: Order cancelled - Patient discharged Performed By: #### L 509.7000 #### [facility] [address] [place], [address] CO2 Normal 21.0-32.0 [facility] Comment on above: Result Comment: Canc elled via OM: Order cancelled - Patient discharged Performed By: #### L 509.7000 #### [facility] [address] [place], [address] CREAT,SERUM Normal 0.55-1.02 [facility] Comment on above: Result Comment: Canc elled via OM: Order cancelled - Patient discharged Performed By: #### L 509.7000 #### [facility] [address] [place], [address] EST GFR Normal >60 [facility] Comment on above: Result Comment: Canc elled via OM: Order cancelled - Patient discharged Performed By: #### L 509.7000 #### [facility] [address] [place], [address] EST GFR - AA Normal >60 [facility] Comment on above: Result Comment: Canc elled via OM: Order cancelled - Patient discharged Performed By: #### L 509.7000 #### [facility] [address] [place], [address] GAP Normal 5-15 [facility] Comment on above: Result Comment: Canc elled via OM: Order cancelled - Patient discharged Performed By: #### L 509.7000 #### [facility] [address] [place], [address] GLU Normal 74-106 [facility] Comment on above: Result Comment: Canc elled via OM: Order cancelled - Patient discharged Performed By: #### L 509.7000 #### [facility] [address] [place], [address] Potassium Normal 3.5-5.1 [facility] Comment on above: Result Comment: Canc elled via OM: Order cancelled - Patient discharged Performed By: #### L 509.7000 #### [facility] [address] [place], [address] Basic Metabolic Profile (BMP) Normal 136-145 [facility] Comment on above: Result Comment: Canc elled via OM: Order cancelled - Patient discharged Performed By: #### L 509.7000 #### [facility] [address] [place], [address] CBC W/Diff, Automatedon 02-2 Absolute Neut Normal 2.0-7.7 [facility] Comment on above: Result Comment: Canc elled via OM: Order cancelled - Patient discharged Performed By: #### L 509.7000 #### [facility] [address] [place], [address] HCT Normal 37-47 [facility] Comment on above: Result Comment: Canc elled via OM: Order cancelled - Patient discharged Performed By: #### L 509.7000 #### [facility] [address] [place], [address] HGB Normal 12.0-15.0 [facility] Comment on above: Result Comment: Canc elled via OM: Order cancelled - Patient discharged Performed By: #### L 509.7000 #### [facility] [address] [place], [address] MCH Normal 27.0-32.0 [facility] Comment on above: Result Comment: Canc elled via OM: Order cancelled - Patient discharged Performed By: #### L 509.7000 #### [facility] [address] [place], [address] MCHC Normal 32-36 [facility] Comment on above: Result Comment: Canc elled via OM: Order cancelled - Patient discharged Performed By: #### L 509.7000 #### [facility] [address] [place], [address] MCV Normal 81-99 [facility] Comment on above: Result Comment: Canc elled via OM: Order cancelled - Patient discharged Performed By: #### L 509.7000 #### [facility] [address] [place], [address] NEUT% Normal 47-70 [facility] Comment on above: Result Comment: Canc elled via OM: Order cancelled - Patient discharged Performed By: #### L 509.7000 #### [facility] [address] [place], [address] PLT Normal 150-450 [facility] Comment on above: Result Comment: Canc elled via OM: Order cancelled - Patient discharged Performed By: #### L 509.7000 #### [facility] [address] [place], [address] RBC Normal 4.2-5.4 [facility] Comment on above: Result Comment: Canc elled via OM: Order cancelled - Patient discharged Performed By: #### L 509.7000 #### [facility] [address] [place], [address] RDW CV Normal 11.6-14.6 [facility] Comment on above: Result Comment: Canc elled via OM: Order cancelled - Patient discharged Performed By: #### L 509.7000 #### [facility] [address] [place], [address] RDW SD Normal 35.1-43.9 [facility] Comment on above: Result Comment: Canc elled via OM: Order cancelled - Patient discharged Performed By: #### L 509.7000 #### [facility] [address] [place], [address] WBC Normal 4.4-11.0 [facility] Comment on above: Result Comment: Canc elled via OM: Order cancelled - Patient discharged Performed By: #### L 509.7000 #### [facility] [address] [place], [address] 12 Lead EKGon 11-23-2024 12 Lead EKG [facility] [address] [place] [address] 12 Lead EKG 11/23/24 0538 MR#: [id number] Acct: [id number] Name: DIANNE ALVES Rep #: [id number] : [id number] 69 From: Amrik Weber MD Attending Dr: Dr. Stephenie Yu MD Status: ADM IN Ordering Dr: Rita Kenny MD Date: 11/23/24 Location: [facility] Sex: F AA Admitted: 11/17/24 Test Reason [...] ischemia Abnormal ECG Confirmed by Amrik Weber ([id number]), associate editor JUSTYN TURPIN ([id number]) on 11/23/2024 10:37:36 AM Referred By: Confirmed By: Amrik Weber 11/23/24 1037 Date Amrik Weber MD CC: Dr. Leonie Peterson MD; Dr. Rita Kenny MD; Dr. Stephenie Yu MD Signed Normal [facility] Absolute neutrophil countOrd ered By: Rita Kenny on 11-23-2024 Neutrophils (Bld) [#/Vol] 7.1 10*3/uL 2.0-7.7 [facility] Basic Metabolic Profile (BMP )on 11-23-2024 BUN/CRE 28.2 RATIO High 10-20 [facility] Comment on above: Performed By: #### L 100.0100, L500.2500 #### [facility] [address] [place], [address] CA,Total 9.0 mg/dL Normal 8.5-10.1 [facility] Comment on above: Performed By: #### L 100.0100, L500.2500 #### [facility] [address] [place], [address] Chloride [Moles/Vol] 103 mmol/L Normal 98-107 [facility] Comment on above: Performed By: #### L 100.0100, L500.2500 #### [facility] [address] [place], [address] CO2 [Moles/Vol] 26.0 mmol/L Normal 21.0-32.0 [facility] Comment on above: Performed By: #### L 100.0100, L500.2500 #### [facility] [address] [place], [address] Creatinine [Mass/Vol] 1.17 mg/dL High 0.55-1.02 [facility] Comment on above: Result Comment: The validity of the calculated GFR GFRAA in patients over 70 years has not been determined. Clinical correlation is essential. Performed By: #### L 100.0100, L500.2500 #### [facility] [address] [place], [address] ECRCL 52.87 ml/min Normal [facility] Comment on above: Performed By: #### L 100.0100, L500.2500 #### [facility] [address] [place], [address] EST GFR - AA 59 mL/min Low >60 [facility] Comment on above: Result Comment: Afri can Finnish GFR Calc Performed By: #### L 100.0100, L500.2500 #### [facility] [address] [place], [address] GAP 7 Normal 5-15 [facility] Comment on above: Performed By: #### L 100.0100, L500.2500 #### [facility] [address] [place], [address] GFR/1.73 sq M.predicted among non-blacks MDRD (S/P/Bld) [Vol rate/Area] 49 mL/min/{1.73_m2} Low >60 [facility] Comment on above: Result Comment: Non- GFR Calc Performed By: #### L 100.0100, L500.2500 #### [facility] [address] [place], [address] Glucose [Mass/Vol] 113 mg/dL High 74-106 [facility] Comment on above: Result Comment: Fast ing Glucose result from 100 to 125 mg/dL suggests IMPAIRED HOMEOSTASIS per A.D.A. criteria. Performed By: #### L 100.0100, L500.2500 #### [facility] [address] [place], [address] Potassium [Moles/Vol] 4.5 mmol/L Normal 3.5-5.1 [facility] Comment on above: Performed By: #### L 100.0100, L500.2500 #### [facility] [address] [place], [address] Sodium [Moles/Vol] 136 mmol/L Normal 136-145 [facility] Comment on above: Performed By: #### L 100.0100, L500.2500 #### [facility] [address] [place], [address] Urea nitrogen [Mass/Vol] 33 mg/dL High 7-18 [facility] Comment on above: Performed By: #### L 100.0100, L500.2500 #### [facility] [address] [place], [address] Basophil percentageOrdered B y: Rita Kenny on 11-23-2024 Basophils/100 WBC (Bld) 0.3 % 0-1 [facility] Blood urea nitrogen (BUN)/cr eatinine ratioOrdered By: Rita Kenny on 11-23-2024 Urea nitrogen/Creatinine [Mass ratio] 28.2 mg/mg High 10-20 [facility] CBC W/Diff, Automatedon 11-01 Absolute Lymph 2.32 X10 3/uL Normal 0.83-4.51 [facility] Comment on above: Performed By: #### L 100.0100, L500.2500 #### [facility] [address] [place], [address] Absolute Neut 7.1 X10 3/uL Normal 2.0-7.7 [facility] Comment on above: Performed By: #### L 100.0100, L500.2500 #### [facility] [address] [place], [address] Basophils/100 WBC (Bld) 0.3 % Normal 0-1 [facility] Comment on above: Performed By: #### L 100.0100, L500.2500 #### [facility] [address] [place], [address] Eosinophils/100 WBC (Bld) 0.1 % Normal 0-5 [facility] Comment on above: Performed By: #### L 100.0100, L500.2500 #### [facility] [address] [place], [address] Erythrocyte distribution width (RBC) [Ratio] 13.8 % Normal 11.6-14.6 [facility] Comment on above: Performed By: #### L 100.0100, L500.2500 #### [facility] [address] [place], [address] Hematocrit (Bld) [Volume fraction] 46.5 % Normal 37-47 [facility] Comment on above: Performed By: #### L 100.0100, L500.2500 #### [facility] [address] [place], [address] Hemoglobin (Bld) [Mass/Vol] 14.8 g/dL Normal 12.0-15.0 [facility] Comment on above: Performed By: #### L 100.0100, L500.2500 #### [facility] [address] [place], [address] IG% 1.300 High 0.0-0.9 [facility] Comment on above: Result Comment: IG% - Immature Granulocytes (promyelocytes, myelocytes and metamyelocytes) > 1% indicates that a LEFT SHIFT is Present. Performed By: #### L 100.0100, L500.2500 #### [facility] [address] [place], [address] Lymphocytes/100 WBC (Bld) 22.2 % Normal 19-41 [facility] Comment on above: Performed By: #### L 100.0100, L500.2500 #### [facility] [address] [place], [address] MCH (RBC) [Entitic mass] 28.2 pg Normal 27.0-32.0 [facility] Comment on above: Performed By: #### L 100.0100, L500.2500 #### [facility] [address] [place], [address] MCHC (RBC) [Mass/Vol] 31.8 g/dL Low 32-36 [facility] Comment on above: Performed By: #### L 100.0100, L500.2500 #### [facility] [address] [place], [address] MCV (RBC) [Entitic vol] 88.6 fL Normal 81-99 [facility] Comment on above: Performed By: #### L 100.0100, L500.2500 #### [facility] [address] [place], [address] Monocytes/100 WBC (Bld) 8.3 % Normal 0-10 [facility] Comment on above: Performed By: #### L 100.0100, L500.2500 #### [facility] [address] [place], [address] Neutrophils/100 WBC (Bld) 67.8 % Normal 47-70 [facility] Comment on above: Performed By: #### L 100.0100, L500.2500 #### [facility] [address] [place], [address] Nucleated RBC (Bld) [#/Vol] 0 10*3/uL Normal 0-5 [facility] Comment on above: Performed By: #### L 100.0100, L500.2500 #### [facility] [address] [place], [address] Platelet mean volume (Bld) [Entitic vol] 10.5 fL Normal 6.2-12.0 [facility] Comment on above: Performed By: #### L 100.0100, L500.2500 #### [facility] [address] [place], [address] Platelets (Bld) [#/Vol] 346 10*3/uL Normal 150-450 [facility] Comment on above: Performed By: #### L 100.0100, L500.2500 #### [facility] [address] [place], [address] RBC (Bld) [#/Vol] 5.25 10*6/uL Normal 4.2-5.4 [facility] Comment on above: Performed By: #### L 100.0100, L500.2500 #### [facility] [address] [place], [address] RDW SD 44.6 fl High 35.1-43.9 [facility] Comment on above: Performed By: #### L 100.0100, L500.2500 #### [facility] [address] [place], [address] WBC (Bld) [#/Vol] 10.5 10*3/uL Normal 4.4-11.0 [facility] Comment on above: Performed By: #### L 100.0100, L500.2500 #### [facility] [address] [place], [address] Carbon dioxide measurementOr dered By: Ritamorgan Kenny on 11-23-2024 CO2 [Moles/Vol] 26.0 mmol/L 21.0-32.0 [facility] Chloride measurementOrdered By: Rita Kenny on 11-23-2024 Chloride [Moles/Vol] 103 mmol/L 98-107 [facility] Discharge Instructionon 11-01 Discharge Instruction [facility] Medical Records Department [address] [place] [address] Instructions for Home/Discharge Instructions 11/23/24 1522 MR#: [id number] Acct: [id number] Name: DIANNE ALVES Rep #: [id number] : 1955 69 From: Stephenie Yu MD [...] to your preferred pharmacy on file, drug [place] -Please call your primary care provider's office [...] Dr. Maria M Ochoa MD Signed Normal [facility] Discharge Instruction [facility] Medical Records Department [address] [place] [address] Instructions for Home/Discharge Instructions 11/23/24 1452 MR#: [id number] Acct: [id number] Name: DIANNE ALVES Rep #: [id number] : 1955 69 From: Stephenie Yu MD [...] to your preferred pharmacy on file, drug [place] -Please call your primary care provider's office [...] can be placed): Home, Self Care 11/23/24 6455 Stephenie Yu MD CC: Dr. Antwon Ferreira [...] Dr. Maria M Ochoa MD Signed Normal [facility] Eosinophil percentageOrdered By: Rita Kenny on 11-23-2024 Eosinophils/100 WBC (Bld) 0.1 % 0-5 [facility] Erythrocyte distribution wid th ratioOrdered By: Rita Kenny on 11-23-2024 Erythrocyte distribution width (RBC) [Ratio] 13.8 % 11.6-14.6 [facility] Erythrocyte distribution wid th standard deviationOrdered By: Rita Kenny on 11-23-2024 Erythrocyte distribution width (RBC) [Entitic vol] 44.6 fL High 35.1-43.9 [facility] Estimated glomerular filtrat ion rate (GFR) AmericanOrdered By: Rita Kenny on 11-23-2024 Estimated GFR (MDRD) Amer 59 mL/min Low >60 [facility] Comment on above: GFR Calc Estimation of creatinine adriana aranceOrdered By: iRta Kenny on 11-23-2024 Estimated Creatinine Clearance Calc 52.87 ml/min [facility] Glomerular filtration rate ( GFR) estimationOrdered By: Rita Kenny on 11-23-2024 Estimated GFR (MDRD) Non-Af Amer 49 mL/min Low >60 [facility] Comment on above: Non- GFR Calc Glucose measurementOrdered B y: Rita Kenny on 11-23-2024 Glucose [Mass/Vol] 113 mg/dL High 74-106 [facility] Comment on above: Fasting Glucose resu lt from 100 to 125 mg/dL suggests IMPAIRED HOMEOSTASIS per A.D.A. criteria. Hematocrit Auto (Bld) [Volum e fraction]Ordered By: Rita Kenny on 11-23-2024 Hematocrit (Bld) [Volume fraction] 46.5 % 37-47 [facility] Hemoglobin measurementOrdere d By: Rita Kenny on 11-23-2024 Hemoglobin (Bld) [Mass/Vol] 14.8 g/dL 12.0-15.0 [facility] Immature granulocytes/100 WB C Auto (Bld)Ordered By: Rita Kenny on 11-23-2024 Immature granulocytes/100 WBC (Bld) 1.300 % High 0.0-0.9 [facility] Comment on above: IG% - Immature Granu locytes (promyelocytes, myelocytes and metamyelocytes) > 1% indicates that a LEFT SHIFT is Present. Lymphocytes Auto (Unsp spec) [#/Vol]Ordered By: Rita Kenny on 11-23-2024 Lymphocytes (Bld) [#/Vol] 2.32 10*3/uL 0.83-4.51 [facility] Lymphocytes/100 WBC Auto (Un sp spec)Ordered By: Rita Kenny on 11-23-2024 Lymphocytes/100 WBC (Bld) 22.2 % 19-41 [facility] MCV (mean corpuscular volume ) determinationOrdered By: Rita Kenny on 11-23-2024 MCV (RBC) [Entitic vol] 88.6 fL 81-99 [facility] Mean corpuscular hemoglobin (MCH) determinationOrdered By: Rita Kenny on 11-23-2024 MCH (RBC) [Entitic mass] 28.2 pg 27.0-32.0 [facility] Mean corpuscular hemoglobin concentration (MCHC) determinationOrdered By: Rita Kenny on 11-23-2024 MCHC (RBC) [Mass/Vol] 31.8 g/dL Low 32-36 [facility] Mean platelet volume determi nationOrdered By: Rita Kenny on 11-23-2024 Platelet mean volume (Bld) [Entitic vol] 10.5 fL 6.2-12.0 [facility] Monocyte percentageOrdered B y: Rita Kenny on 11-23-2024 Monocytes/100 WBC (Bld) 8.3 % 0-10 [facility] Neutrophil percentageOrdered By: Rita Kenny on 11-23-2024 Neutrophils/100 WBC (Bld) 67.8 % 47-70 [facility] Nucleated red blood cell per centageOrdered By: Rita Kenny on 11-23-2024 Nucleated RBC/100 WBC (Bld) [Ratio] 0 % 0-5 [facility] Platelet countOrdered By: Na elizabeth Kenny on 11-23-2024 Platelets (Bld) [#/Vol] 346 10*3/uL 150-450 [facility] Potassium measurementOrdered By: Rita Kenny on 11-23-2024 Potassium [Moles/Vol] 4.5 mmol/L 3.5-5.1 [facility] RBC Auto (Bld) [#/Vol]Ordere d By: Rita Kenny on 11-23-2024 RBC (Bld) [#/Vol] 5.25 10*6/uL 4.2-5.4 [facility] Serum anion gap measurementO rdered By: Rita Kenny on 11-23-2024 Anion gap [Moles/Vol] 7 mmol/L 5-15 [facility] Serum or plasma calcium margarita urement (mass/volume)Ordered By: Rita Karlbella on 11-23-2024 Calcium [Mass/Vol] 9.0 mg/dL 8.5-10.1 [facility] Serum or plasma creatinine m easurement (mass/volume)Ordered By: Rita Barajasbella on 11-23-2024 Creatinine [Mass/Vol] 1.17 mg/dL High 0.55-1.02 [facility] Comment on above: The validity of the calculated GFR & GFRAA in patients over 70 years has not been determined. Clinical correlation is essential. Serum or plasma urea nitroge n measurement (mass/volume)Ordered By: Ritamorgan Kenny on 11-23-2024 Urea nitrogen [Mass/Vol] 33 mg/dL High 7-18 [facility] Sodium levelOrdered By: Rita Karlbella on 11-23-2024 Sodium [Moles/Vol] 136 mmol/L 136-145 [facility] Stress Reporton 11-23-2024 Stress Report [facility] Cardiovascular Services [address] [place] [address] MR#: [id number] Acct: [id number] Name: DIANNE ALVES Rep #: [id number] : 1955 69 From: Tej Corley MD [...] than 70%. This note was generated with [employer] software. It may contain incorrect words, spelling, [...] MD Date Dictated: 11/23/241326 Date Transcribed: 11/23/241326 Ict Analyst: NN Signed Normal [facility] White blood cell (WBC) count Ordered By: Rita Kenny on 11-23-2024 WBC (Bld) [#/Vol] 10.5 10*3/uL 4.4-11.0 [facility] Basic Metabolic Profile (BMP )on 11-22-2024 BUN/CRE 26.9 RATIO High 10-20 [facility] Comment on above: Performed By: #### L 509.7000 #### [facility] [address] [place], [address] CA,Total 9.0 mg/dL Normal 8.5-10.1 [facility] Comment on above: Performed By: #### L 509.7000 #### [facility] [address] [place], [address] Chloride [Moles/Vol] 100 mmol/L Normal 98-107 [facility] Comment on above: Performed By: #### L 509.7000 #### [facility] [address] [place], [address] CO2 [Moles/Vol] 26.0 mmol/L Normal 21.0-32.0 [facility] Comment on above: Performed By: #### L 509.7000 #### [facility] [address] [place], [address] Creatinine [Mass/Vol] 1.45 mg/dL High 0.55-1.02 [facility] Comment on above: Result Comment: The validity of the calculated GFR GFRAA in patients over 70 years has not been determined. Clinical correlation is essential. Performed By: #### L 509.7000 #### [facility] [address] [place], [address] ECRCL 42.59 ml/min Normal [facility] Comment on above: Performed By: #### L 509.7000 #### [facility] [address] [place], [address] EST GFR - AA 46 mL/min Low >60 [facility] Comment on above: Result Comment: Afri can Finnish GFR Calc Performed By: #### L 509.7000 #### [facility] [address] [place], [address] GAP 11 Normal 5-15 [facility] Comment on above: Performed By: #### L 509.7000 #### [facility] [address] [place], [address] GFR/1.73 sq M.predicted among non-blacks MDRD (S/P/Bld) [Vol rate/Area] 38 mL/min/{1.73_m2} Low >60 [facility] Comment on above: Result Comment: Non- GFR Calc Performed By: #### L 509.7000 #### [facility] [address] [place], [address] Glucose [Mass/Vol] 172 mg/dL High 74-106 [facility] Comment on above: Result Comment: Fast ing Glucose result greater than or equal to 126 mg/dL suggests DIABETES MELLITUS per A.D.A. criteria. Performed By: #### L 509.7000 #### [facility] [address] [place], [address] Potassium [Moles/Vol] 4.7 mmol/L Normal 3.5-5.1 [facility] Comment on above: Performed By: #### L 509.7000 #### [facility] [address] [place], [address] Sodium [Moles/Vol] 137 mmol/L Normal 136-145 [facility] Comment on above: Performed By: #### L 509.7000 #### [facility] [address] [place], [address] Urea nitrogen [Mass/Vol] 39 mg/dL High 7-18 [facility] Comment on above: Performed By: #### L 509.7000 #### [facility] [address] [place], [address] CBC W/Diff, Automatedon 02-2 -2024 Absolute Lymph 1.19 X10 3/uL Normal 0.83-4.51 [facility] Comment on above: Performed By: #### L 509.7000 #### [facility] [address] [place], [address] Absolute Neut 7.9 X10 3/uL High 2.0-7.7 [facility] Comment on above: Performed By: #### L 509.7000 #### [facility] [address] [place], [address] Basophils/100 WBC (Bld) 0.3 % Normal 0-1 [facility] Comment on above: Performed By: #### L 509.7000 #### [facility] [address] [place], [address] Eosinophils/100 WBC (Bld) 0.0 % Normal 0-5 [facility] Comment on above: Performed By: #### L 509.7000 #### [facility] [address] [place], [address] Erythrocyte distribution width (RBC) [Ratio] 13.7 % Normal 11.6-14.6 [facility] Comment on above: Performed By: #### L 509.7000 #### [facility] [address] [place], [address] Hematocrit (Bld) [Volume fraction] 45.4 % Normal 37-47 [facility] Comment on above: Performed By: #### L 509.7000 #### [facility] [address] [place], [address] Hemoglobin (Bld) [Mass/Vol] 14.8 g/dL Normal 12.0-15.0 [facility] Comment on above: Performed By: #### L 509.7000 #### [facility] [address] [place], [address] IG% 1.400 High 0.0-0.9 [facility] Comment on above: Result Comment: IG% - Immature Granulocytes (promyelocytes, myelocytes and metamyelocytes) > 1% indicates that a LEFT SHIFT is Present. Performed By: #### L 509.7000 #### [facility] [address] [place], [address] Lymphocytes/100 WBC (Bld) 12.1 % Low 19-41 [facility] Comment on above: Performed By: #### L 509.7000 #### [facility] [address] [place], [address] MCH (RBC) [Entitic mass] 28.7 pg Normal 27.0-32.0 [facility] Comment on above: Performed By: #### L 509.7000 #### [facility] [address] [place], [address] MCHC (RBC) [Mass/Vol] 32.6 g/dL Normal 32-36 [facility] Comment on above: Performed By: #### L 509.7000 #### [facility] [address] [place], [address] MCV (RBC) [Entitic vol] 88.2 fL Normal 81-99 [facility] Comment on above: Performed By: #### L 509.7000 #### [facility] [address] [place], [address] Monocytes/100 WBC (Bld) 5.9 % Normal 0-10 [facility] Comment on above: Performed By: #### L 509.7000 #### [facility] [address] [place], [address] Neutrophils/100 WBC (Bld) 80.3 % High 47-70 [facility] Comment on above: Performed By: #### L 509.7000 #### [facility] [address] [place], [address] Nucleated RBC (Bld) [#/Vol] 0 10*3/uL Normal 0-5 [facility] Comment on above: Performed By: #### L 509.7000 #### [facility] [address] [place], [address] Platelet mean volume (Bld) [Entitic vol] 11.0 fL Normal 6.2-12.0 [facility] Comment on above: Performed By: #### L 509.7000 #### [facility] [address] [place], [address] Platelets (Bld) [#/Vol] 346 10*3/uL Normal 150-450 [facility] Comment on above: Performed By: #### L 509.7000 #### [facility] [address] [place], [address] RBC (Bld) [#/Vol] 5.15 10*6/uL Normal 4.2-5.4 [facility] Comment on above: Performed By: #### L 509.7000 #### [facility] [address] [place], [address] RDW SD 44.1 fl High 35.1-43.9 [facility] Comment on above: Performed By: #### L 509.7000 #### [facility] [address] [place], [address] WBC (Bld) [#/Vol] 9.8 10*3/uL Normal 4.4-11.0 [facility] Comment on above: Performed By: #### L 509.7000 #### [facility] [address] [place], [address] Basic Metabolic Profile (BMP )on 11-21-2024 BUN/CRE 20.8 RATIO High 10-20 [facility] Comment on above: Performed By: #### L 509.7000 #### [facility] [address] [place], [address] CA,Total 9.4 mg/dL Normal 8.5-10.1 [facility] Comment on above: Performed By: #### L 509.7000 #### [facility] [address] [place], [address] Chloride [Moles/Vol] 102 mmol/L Normal 98-107 [facility] Comment on above: Performed By: #### L 509.7000 #### [facility] [address] [place], [address] CO2 [Moles/Vol] 26.0 mmol/L Normal 21.0-32.0 [facility] Comment on above: Performed By: #### L 509.7000 #### [facility] [address] [place], [address] Creatinine [Mass/Vol] 1.25 mg/dL High 0.55-1.02 [facility] Comment on above: Result Comment: The validity of the calculated GFR GFRAA in patients over 70 years has not been determined. Clinical correlation is essential. Performed By: #### L 509.7000 #### [facility] [address] [place], [address] ECRCL 49.49 ml/min Normal [facility] Comment on above: Performed By: #### L 509.7000 #### [facility] [address] [place], [address] EST GFR - AA 55 mL/min Low >60 [facility] Comment on above: Result Comment: Afri can Finnish GFR Calc Performed By: #### L 509.7000 #### [facility] [address] [place], [address] GAP 9 Normal 5-15 [facility] Comment on above: Performed By: #### L 509.7000 #### [facility] [address] [place], [address] GFR/1.73 sq M.predicted among non-blacks MDRD (S/P/Bld) [Vol rate/Area] 45 mL/min/{1.73_m2} Low >60 [facility] Comment on above: Result Comment: Non- GFR Calc Performed By: #### L 509.7000 #### [facility] [address] [place], [address] Glucose [Mass/Vol] 129 mg/dL High 74-106 [facility] Comment on above: Result Comment: Fast ing Glucose result greater than or equal to 126 mg/dL suggests DIABETES MELLITUS per A.D.A. criteria. Performed By: #### L 509.7000 #### [facility] [address] [place], [address] Potassium [Moles/Vol] 4.4 mmol/L Normal 3.5-5.1 [facility] Comment on above: Performed By: #### L 509.7000 #### [facility] [address] [place], [address] Sodium [Moles/Vol] 137 mmol/L Normal 136-145 [facility] Comment on above: Performed By: #### L 509.7000 #### [facility] [address] [place], [address] Urea nitrogen [Mass/Vol] 26 mg/dL High 7-18 [facility] Comment on above: Performed By: #### L 509.7000 #### [facility] [address] [place], [address] CBC W/Diff, Automatedon 11-01 Absolute Lymph 1.11 X10 3/uL Normal 0.83-4.51 [facility] Comment on above: Performed By: #### L 509.7000 #### [facility] [address] [place], [address] Absolute Neut 7.0 X10 3/uL Normal 2.0-7.7 [facility] Comment on above: Performed By: #### L 509.7000 #### [facility] [address] [place], [address] Basophils/100 WBC (Bld) 0.2 % Normal 0-1 [facility] Comment on above: Performed By: #### L 509.7000 #### [facility] [address] [place], [address] Eosinophils/100 WBC (Bld) 0.0 % Normal 0-5 [facility] Comment on above: Performed By: #### L 509.7000 #### [facility] [address] [place], [address] Erythrocyte distribution width (RBC) [Ratio] 13.8 % Normal 11.6-14.6 [facility] Comment on above: Performed By: #### L 509.7000 #### [facility] [address] [place], [address] Hematocrit (Bld) [Volume fraction] 44.5 % Normal 37-47 [facility] Comment on above: Performed By: #### L 509.7000 #### [facility] [address] [place], [address] Hemoglobin (Bld) [Mass/Vol] 14.5 g/dL Normal 12.0-15.0 [facility] Comment on above: Performed By: #### L 509.7000 #### [facility] [address] [place], [address] IG% 1.100 High 0.0-0.9 [facility] Comment on above: Result Comment: IG% - Immature Granulocytes (promyelocytes, myelocytes and metamyelocytes) > 1% indicates that a LEFT SHIFT is Present. Performed By: #### L 509.7000 #### [facility] [address] [place], [address] Lymphocytes/100 WBC (Bld) 13.0 % Low 19-41 [facility] Comment on above: Performed By: #### L 509.7000 #### [facility] [address] [place], [address] MCH (RBC) [Entitic mass] 28.9 pg Normal 27.0-32.0 [facility] Comment on above: Performed By: #### L 509.7000 #### [facility] [address] [place], [address] MCHC (RBC) [Mass/Vol] 32.6 g/dL Normal 32-36 [facility] Comment on above: Performed By: #### L 509.7000 #### [facility] [address] [place], [address] MCV (RBC) [Entitic vol] 88.6 fL Normal 81-99 [facility] Comment on above: Performed By: #### L 509.7000 #### [facility] [address] [place], [address] Monocytes/100 WBC (Bld) 3.9 % Normal 0-10 [facility] Comment on above: Performed By: #### L 509.7000 #### [facility] [address] [place], [address] Neutrophils/100 WBC (Bld) 81.8 % High 47-70 [facility] Comment on above: Performed By: #### L 509.7000 #### [facility] [address] [place], [address] Nucleated RBC (Bld) [#/Vol] 0 10*3/uL Normal 0-5 [facility] Comment on above: Performed By: #### L 509.7000 #### [facility] [address] [place], [address] Platelet mean volume (Bld) [Entitic vol] 10.6 fL Normal 6.2-12.0 [facility] Comment on above: Performed By: #### L 509.7000 #### [facility] [address] [place], [address] Platelets (Bld) [#/Vol] 321 10*3/uL Normal 150-450 [facility] Comment on above: Performed By: #### L 509.7000 #### [facility] [address] [place], [address] RBC (Bld) [#/Vol] 5.02 10*6/uL Normal 4.2-5.4 [facility] Comment on above: Performed By: #### L 509.7000 #### [facility] [address] [place], [address] RDW SD 44.8 fl High 35.1-43.9 [facility] Comment on above: Performed By: #### L 509.7000 #### [facility] [address] [place], [address] WBC (Bld) [#/Vol] 8.6 10*3/uL Normal 4.4-11.0 [facility] Comment on above: Performed By: #### L 509.7000 #### [facility] [address] [place], [address] Basic Metabolic Profile (BMP )on 11-20-2024 BUN/CRE 16.4 RATIO Normal 10-20 [facility] Comment on above: Performed By: #### L 100.0100, L500.2500 #### [facility] [address] [place], [address] CA,Total 9.7 mg/dL Normal 8.5-10.1 [facility] Comment on above: Performed By: #### L 100.0100, L500.2500 #### [facility] [address] [place], [address] Chloride [Moles/Vol] 102 mmol/L Normal 98-107 [facility] Comment on above: Performed By: #### L 100.0100, L500.2500 #### [facility] [address] [place], [address] CO2 [Moles/Vol] 29.0 mmol/L Normal 21.0-32.0 [facility] Comment on above: Performed By: #### L 100.0100, L500.2500 #### [facility] [address] [place], [address] Creatinine [Mass/Vol] 1.16 mg/dL High 0.55-1.02 [facility] Comment on above: Result Comment: The validity of the calculated GFR GFRAA in patients over 70 years has not been determined. Clinical correlation is essential. Performed By: #### L 100.0100, L500.2500 #### [facility] [address] [place], [address] ECRCL 53.62 ml/min Normal [facility] Comment on above: Performed By: #### L 100.0100, L500.2500 #### [facility] [address] [place], [address] EST GFR - AA 60 mL/min Normal >60 [facility] Comment on above: Result Comment: Afri can Finnish GFR Calc Performed By: #### L 100.0100, L500.2500 #### [facility] [address] [place], [address] GAP 6 Normal 5-15 [facility] Comment on above: Performed By: #### L 100.0100, L500.2500 #### [facility] [address] [place], [address] GFR/1.73 sq M.predicted among non-blacks MDRD (S/P/Bld) [Vol rate/Area] 49 mL/min/{1.73_m2} Low >60 [facility] Comment on above: Result Comment: Non- GFR Calc Performed By: #### L 100.0100, L500.2500 #### [facility] [address] [place], [address] Glucose [Mass/Vol] 135 mg/dL High 74-106 [facility] Comment on above: Result Comment: Fast ing Glucose result greater than or equal to 126 mg/dL suggests DIABETES MELLITUS per A.D.A. criteria. Performed By: #### L 100.0100, L500.2500 #### [facility] [address] [place], [address] Potassium [Moles/Vol] 4.3 mmol/L Normal 3.5-5.1 [facility] Comment on above: Performed By: #### L 100.0100, L500.2500 #### [facility] [address] [place], [address] Sodium [Moles/Vol] 138 mmol/L Normal 136-145 [facility] Comment on above: Performed By: #### L 100.0100, L500.2500 #### [facility] [address] [place], [address] Urea nitrogen [Mass/Vol] 19 mg/dL High 7-18 [facility] Comment on above: Performed By: #### L 100.0100, L500.2500 #### [facility] [address] [place], [address] CBC W/Diff, Automatedon 11-01 Absolute Lymph 0.87 X10 3/uL Normal 0.83-4.51 [facility] Comment on above: Performed By: #### L 100.0100, L500.2500 #### [facility] [address] [place], [address] Absolute Neut 8.9 X10 3/uL High 2.0-7.7 [facility] Comment on above: Performed By: #### L 100.0100, L500.2500 #### [facility] [address] [place], [address] Basophils/100 WBC (Bld) 0.2 % Normal 0-1 [facility] Comment on above: Performed By: #### L 100.0100, L500.2500 #### [facility] [address] [place], [address] Eosinophils/100 WBC (Bld) 0.0 % Normal 0-5 [facility] Comment on above: Performed By: #### L 100.0100, L500.2500 #### [facility] [address] [place], [address] Erythrocyte distribution width (RBC) [Ratio] 13.8 % Normal 11.6-14.6 [facility] Comment on above: Performed By: #### L 100.0100, L500.2500 #### [facility] [address] [place], [address] Hematocrit (Bld) [Volume fraction] 42.9 % Normal 37-47 [facility] Comment on above: Performed By: #### L 100.0100, L500.2500 #### [facility] [address] [place], [address] Hemoglobin (Bld) [Mass/Vol] 14.0 g/dL Normal 12.0-15.0 [facility] Comment on above: Performed By: #### L 100.0100, L500.2500 #### [facility] [address] [place], [address] IG% 1.500 High 0.0-0.9 [facility] Comment on above: Result Comment: IG% - Immature Granulocytes (promyelocytes, myelocytes and metamyelocytes) > 1% indicates that a LEFT SHIFT is Present. Performed By: #### L 100.0100, L500.2500 #### [facility] [address] [place], [address] Lymphocytes/100 WBC (Bld) 8.5 % Low 19-41 [facility] Comment on above: Performed By: #### L 100.0100, L500.2500 #### [facility] [address] [place], [address] MCH (RBC) [Entitic mass] 28.7 pg Normal 27.0-32.0 [facility] Comment on above: Performed By: #### L 100.0100, L500.2500 #### [facility] [address] [place], [address] MCHC (RBC) [Mass/Vol] 32.6 g/dL Normal 32-36 [facility] Comment on above: Performed By: #### L 100.0100, L500.2500 #### [facility] [address] [place], [address] MCV (RBC) [Entitic vol] 88.1 fL Normal 81-99 [facility] Comment on above: Performed By: #### L 100.0100, L500.2500 #### [facility] [address] [place], [address] Monocytes/100 WBC (Bld) 2.4 % Normal 0-10 [facility] Comment on above: Performed By: #### L 100.0100, L500.2500 #### [facility] [address] [place], [address] Neutrophils/100 WBC (Bld) 87.4 % High 47-70 [facility] Comment on above: Performed By: #### L 100.0100, L500.2500 #### [facility] [address] [place], [address] Nucleated RBC (Bld) [#/Vol] 0 10*3/uL Normal 0-5 [facility] Comment on above: Performed By: #### L 100.0100, L500.2500 #### [facility] [address] [place], [address] Platelet mean volume (Bld) [Entitic vol] 10.7 fL Normal 6.2-12.0 [facility] Comment on above: Performed By: #### L 100.0100, L500.2500 #### [facility] [address] [place], [address] Platelets (Bld) [#/Vol] 289 10*3/uL Normal 150-450 [facility] Comment on above: Performed By: #### L 100.0100, L500.2500 #### [facility] [address] [place], [address] RBC (Bld) [#/Vol] 4.87 10*6/uL Normal 4.2-5.4 [facility] Comment on above: Performed By: #### L 100.0100, L500.2500 #### [facility] [address] [place], [address] RDW SD 44.6 fl High 35.1-43.9 [facility] Comment on above: Performed By: #### L 100.0100, L500.2500 #### [facility] [address] [place], [address] WBC (Bld) [#/Vol] 10.2 10*3/uL Normal 4.4-11.0 [facility] Comment on above: Performed By: #### L 100.0100, L500.2500 #### [facility] [address] [place], [address] Arterial patency Wrist arter y --pre arterial punctureOrdered By: Rita Kenny on 11-19-2024 Nichole Test Positive [facility] Base excess Calc (BldV) [Mol es/Vol]Ordered By: Rita Kenny on 11-19-2024 Blood Gas Base Excess 0 mmol/L -2-2 [facility] Basic Metabolic Profile (BMP )on 11-19-2024 BUN/CRE 13.5 RATIO Normal 07-19 [facility] Comment on above: Performed By: #### L 100.0100, L500.2500 #### [facility] [address] [place], [address] CA,Total 9.6 mg/dL Normal 8.5-10.1 [facility] Comment on above: Performed By: #### L 100.0100, L500.2500 #### [facility] [address] [place], [address] Chloride [Moles/Vol] 108 mmol/L High 98-107 [facility] Comment on above: Performed By: #### L 100.0100, L500.2500 #### [facility] [address] [place], [address] CO2 [Moles/Vol] 24.0 mmol/L Normal 21.0-32.0 [facility] Comment on above: Performed By: #### L 100.0100, L500.2500 #### [facility] [address] [place], [address] Creatinine [Mass/Vol] 1.04 mg/dL High 0.55-1.02 [facility] Comment on above: Result Comment: The validity of the calculated GFR GFRAA in patients over 70 years has not been determined. Clinical correlation is essential. Performed By: #### L 100.0100, L500.2500 #### [facility] [address] [place], [address] ECRCL 59.81 ml/min Normal [facility] Comment on above: Performed By: #### L 100.0100, L500.2500 #### [facility] [address] [place], [address] EST GFR - AA 68 mL/min Normal >60 [facility] Comment on above: Result Comment: Afri can Finnish GFR Calc Performed By: #### L 100.0100, L500.2500 #### [facility] [address] [place], [address] GAP 7 Normal 5-15 [facility] Comment on above: Performed By: #### L 100.0100, L500.2500 #### [facility] [address] [place], [address] GFR/1.73 sq M.predicted among non-blacks MDRD (S/P/Bld) [Vol rate/Area] 56 mL/min/{1.73_m2} Low >60 [facility] Comment on above: Result Comment: Non- GFR Calc Performed By: #### L 100.0100, L500.2500 #### [facility] [address] [place], [address] Glucose [Mass/Vol] 153 mg/dL High 74-106 [facility] Comment on above: Result Comment: Fast ing Glucose result greater than or equal to 126 mg/dL suggests DIABETES MELLITUS per A.D.A. criteria. Performed By: #### L 100.0100, L500.2500 #### [facility] [address] [place], [address] Potassium [Moles/Vol] 4.0 mmol/L Normal 3.5-5.1 [facility] Comment on above: Performed By: #### L 100.0100, L500.2500 #### [facility] [address] [place], [address] Sodium [Moles/Vol] 139 mmol/L Normal 136-145 [facility] Comment on above: Performed By: #### L 100.0100, L500.2500 #### [facility] [address] [place], [address] Urea nitrogen [Mass/Vol] 14 mg/dL Normal 7-18 [facility] Comment on above: Performed By: #### L 100.0100, L500.2500 #### [facility] [address] [place], [address] Blood Gases by [facility] 025 NICHOLE TEST Positive Normal [facility] Comment on above: Performed By: #### L 9000.0800 #### [facility] [address] [place], [address] Base excess Calc (Bld) [Moles/Vol] 0 mmol/L Normal -2 to +2 [facility] Comment on above: Performed By: #### L 9000.0800 #### [facility] [address] [place], [address] Blood Gas Type ART Normal [facility] Comment on above: Performed By: #### L 9000.0800 #### [facility] [address] [place], [address] CO2 [Moles/Vol] 23 mmol/L Normal [facility] Comment on above: Performed By: #### L 9000.0800 #### [facility] [address] [place], [address] FI02 12.0 Normal [facility] Comment on above: Performed By: #### L 9000.0800 #### [facility] [address] [place], [address] HCO3 (Bld) [Moles/Vol] 22.1 mmol/L Normal 22-26 [facility] Comment on above: Performed By: #### L 0.0800 #### [facility] [address] [place], [address] Mode Not entered Normal [facility] Comment on above: Performed By: #### L 8999.0800 #### [facility] [address] [place], [address] O2 Delivery Dev Cannula Normal [facility] Comment on above: Performed By: #### L 8999.0800 #### [facility] [address] [place], [address] pCO2 25.4 mmHg Low 35-45 [facility] Comment on above: Performed By: #### L 8999.0800 #### [facility] [address] [place], [address] pH (Bld) 7.55 [pH] High 7.35-7.45 [facility] Comment on above: Performed By: #### L 8999.08 #### [facility] [address] [place], [address] PO2 162 mmHG High 75-100 [facility] Comment on above: Performed By: #### L 0.0800 #### [facility] [address] [place], [address] SITE L Radial Normal [facility] Comment on above: Performed By: #### L 8999.08 #### [facility] [address] [place], [address] SO2 100 High 95-99 [facility] Comment on above: Performed By: #### L 8999.0800 #### [facility] [address] [place], [address] Blood bicarbonate measuremen tOrdered By: Rita Kenny on 11-19-2024 Blood Gas Bicarbonate Actual 22.1 mmol/L - [facility] CBC W/Diff, Automatedon 11-01 Absolute Lymph 0.91 X10 3/uL Normal 0.83-4.51 [facility] Comment on above: Performed By: #### L 100.0100, L500.2500 #### [facility] [address] [place], [address] Absolute Neut 11.6 X10 3/uL High 2.0-7.7 [facility] Comment on above: Performed By: #### L 100.0100, L500.2500 #### [facility] [address] [place], [address] Basophils/100 WBC (Bld) 0.2 % Normal 0-1 [facility] Comment on above: Performed By: #### L 100.0100, L500.2500 #### [facility] [address] [place], [address] Eosinophils/100 WBC (Bld) 0.0 % Normal 0-5 [facility] Comment on above: Performed By: #### L 100.0100, L500.2500 #### [facility] [address] [place], [address] Erythrocyte distribution width (RBC) [Ratio] 13.7 % Normal 11.6-14.6 [facility] Comment on above: Performed By: #### L 100.0100, L500.2500 #### [facility] [address] [place], [address] Hematocrit (Bld) [Volume fraction] 40.8 % Normal 37-47 [facility] Comment on above: Performed By: #### L 100.0100, L500.2500 #### [facility] [address] [place], [address] Hemoglobin (Bld) [Mass/Vol] 13.4 g/dL Normal 12.0-15.0 [facility] Comment on above: Performed By: #### L 100.0100, L500.2500 #### [facility] [address] [place], [address] IG% 1.000 High 0.0-0.9 [facility] Comment on above: Result Comment: IG% - Immature Granulocytes (promyelocytes, myelocytes and metamyelocytes) > 1% indicates that a LEFT SHIFT is Present. Performed By: #### L 100.0100, L500.2500 #### [facility] [address] [place], [address] Lymphocytes/100 WBC (Bld) 7.0 % Low 19-41 [facility] Comment on above: Performed By: #### L 100.0100, L500.2500 #### [facility] [address] [place], [address] MCH (RBC) [Entitic mass] 29.1 pg Normal 27.0-32.0 [facility] Comment on above: Performed By: #### L 100.0100, L500.2500 #### [facility] [address] [place], [address] MCHC (RBC) [Mass/Vol] 32.8 g/dL Normal 32-36 [facility] Comment on above: Performed By: #### L 100.0100, L500.2500 #### [facility] [address] [place], [address] MCV (RBC) [Entitic vol] 88.5 fL Normal 81-99 [facility] Comment on above: Performed By: #### L 100.0100, L500.2500 #### [facility] [address] [place], [address] Monocytes/100 WBC (Bld) 2.5 % Normal 0-10 [facility] Comment on above: Performed By: #### L 100.0100, L500.2500 #### [facility] [address] [place], [address] Neutrophils/100 WBC (Bld) 89.3 % High 47-70 [facility] Comment on above: Performed By: #### L 100.0100, L500.2500 #### [facility] [address] [place], [address] Nucleated RBC (Bld) [#/Vol] 0 10*3/uL Normal 0-5 [facility] Comment on above: Performed By: #### L 100.0100, L500.2500 #### [facility] [address] [place], [address] Platelet mean volume (Bld) [Entitic vol] 11.8 fL Normal 6.2-12.0 [facility] Comment on above: Performed By: #### L 100.0100, L500.2500 #### [facility] [address] [place], [address] Platelets (Bld) [#/Vol] 261 10*3/uL Normal 150-450 [facility] Comment on above: Performed By: #### L 100.0100, L500.2500 #### [facility] [address] [place], [address] RBC (Bld) [#/Vol] 4.61 10*6/uL Normal 4.2-5.4 [facility] Comment on above: Performed By: #### L 100.0100, L500.2500 #### [facility] [address] [place], [address] RDW SD 44.3 fl High 35.1-43.9 [facility] Comment on above: Performed By: #### L 100.0100, L500.2500 #### [facility] [address] [place], [address] WBC (Bld) [#/Vol] 13.0 10*3/uL High 4.4-11.0 [facility] Comment on above: Performed By: #### L 100.0100, L500.2500 #### [facility] [address] [place], [address] CTA Chest W/WO Contraston CTA Chest W/WO Contrast [facility] Imaging Services [address] [place] [place] [address] CTA Chest W/WO Contrast MR#: [id number] Acct: [id number] Name: DIANNE ALVES Rep #: [id number] : 1955 F 69 From: Anthony wolff MD PCP: Dr. Leonie Peterson MD Status: ADM IN Study: CTA Chest W/WO Contrast Date of Exam: 11/19/24 Exam# [id number] Ordering Dr: Rita Kenny MD PROCEDURE: CTA [...] use of iterative reconstruction technique). Reading Location: [id number] CC: Dr. Leonie Peterson MD; Dr. Rita Kenny MD Ict Analyst: Signed Normal [facility] Consultation - Intensiviston 11-19-2024 Consultation - Video Games Storywriter [facility] Medical Records Department [address] [place] [address] Consultation - Video Games Storywriter 11/19/24 1006 MR#: [id number] Acct: [id number] Name: DIANNE ALVES Rep #: [id number] : 1955 69 From: Zeyad Espinoza DO PCP: Dr. Leonie Peterson MD Status:ADM IN Location: [place] [id number] Assessment Plan Assessment/Plan (1) Influenza A: (2) [...] as indicated. This note was generated with [employer] dictation software. It may contain incorrect words, [...] followed in the pulmonary medicine clinic at [facility] due to a history of COPD [...] systolic pressure estimated to be 36 mmHg. [facility] Medical History (Updated 11/17/24 @ 16:23 by [...] pain 02/15/23 (more content not included)... Normal [facility] Determination of fraction of inspired oxygenOrdered By: Rita Kenny on 11-19-2024 Blood Gas Oxygen Percent 12.0 [facility] L. pneumophila Ag Ql (U)Orde red By: Zeyad Espinoza on 11-19-2024 Legionella Antigen [facility] Legionella Antigen Urineon 0 11-19-2024 LEGU URINE, CLEAN CATCH Legionella Antigen result interpretation: L pneumo Ag Ur Ql Negative Presumptive negative for Legionella pneumophila serogroup 1 antigen in urine, suggesting no recent or current infection. Legionella Ag, Urine Negative (See interpretation below) Normal [facility] Comment on above: Performed By: #### M 300.3860, M300.6379 ####[facility] [id number] [place], [place], [id number] No Panel InformationOrdered By: Rita Kenny on 11-19-2024 Blood Gas Sample Site L Radial [facility] Blood Gas Specimen Type ART [facility] Blood Gas Vent Mode Not entered [facility] Oxygen Delivery Device Cannula [facility] Oxygen saturation measuremen tOrdered By: Rita Kenny on 11-19-2024 Blood Gas Oxygen Saturation 100 % High 95-99 [facility] Partial pressure of carbon d ioxide measurementOrdered By: Rita Kenny on 11-19-2024 Arterial Blood Partial Pressure CO2 25.4 mmHg Low 35-45 [facility] Partial pressure of oxygen m easurementOrdered By: Rita Kenny on 11-19-2024 Arterial Blood Partial Pressure O2 162 mmHG High 75-100 [facility] Procalcitoninon 11-19-2024 Procalcitonin 0.05 ng/mL Normal 0.00-0.09 [facility] Comment on above: Result Comment: A procalcitonin [...] obtained. Performed By: #### L 509.7000 #### [facility] [place], [address] Procalcitonin [Mass/Vol]Orde red By: Zeyad Espinzoa on 11-19-2024 Procalcitonin 0.05 ng/mL 0.00-0.09 [facility] Comment on above: A procalcitonin (PCT ) [...] Test Negative URINE (See interpretation below) Normal [facility] Comment on above: Performed By: #### L 509.7000 #### [facility] [address] [place], [address] Streptococcus pneumoniae ant igen assayOrdered By: Zeyad Espinoza on 11-19-2024 Streptococcus pneumoniae Antigen (M [facility] Total carbon dioxide measure mentOrdered By: Rita Kenny on 11-19-2024 Blood Gas Total CO2 23 mmol/L [facility] pH (Unsp spec)Ordered By: Elizabeth Kenny on 11-19-2024 Blood Gas pH 7.55 High 7.35-7.45 [facility] Basic Metabolic Profile (BMP )on 11-18-2024 BUN/CRE 10.8 RATIO Normal - [facility] Comment on above: Performed By: #### L 500.2500, L100.0100 #### [facility] [address] [place], [address] CA,Total 9.3 mg/dL Normal 8.5-10.1 [facility] Comment on above: Performed By: #### L 500.2500, L100.0100 #### [facility] [address] [place], [address] Chloride [Moles/Vol] 105 mmol/L Normal 98-107 [facility] Comment on above: Performed By: #### L 500.2500, L100.0100 #### [facility] [address] [place], [address] CO2 [Moles/Vol] 24.0 mmol/L Normal 21.0-32.0 [facility] Comment on above: Performed By: #### L 500.2500, L100.0100 #### [facility] [address] [place], [address] Creatinine [Mass/Vol] 1.11 mg/dL High 0.55-1.02 [facility] Comment on above: Result Comment: The validity of the calculated GFR GFRAA in patients over 70 years has not been determined. Clinical correlation is essential. Performed By: #### L 500.2500, L100.0100 #### [facility] [address] [place], [address] ECRCL 55.64 ml/min Normal [facility] Comment on above: Performed By: #### L 500.2500, L100.0100 #### [facility] [address] [place], [address] EST GFR - AA 63 mL/min Normal >60 [facility] Comment on above: Result Comment: Afri can Finnish GFR Calc Performed By: #### L 500.2500, L100.0100 #### [facility] [address] [place], [address] GAP 10 Normal 5-15 [facility] Comment on above: Performed By: #### L 500.2500, L100.0100 #### [facility] [address] [place], [address] GFR/1.73 sq M.predicted among non-blacks MDRD (S/P/Bld) [Vol rate/Area] 52 mL/min/{1.73_m2} Low >60 [facility] Comment on above: Result Comment: Non- GFR Calc Performed By: #### L 500.2500, L100.0100 #### [facility] [address] [place], [address] Glucose [Mass/Vol] 272 mg/dL High 74-106 [facility] Comment on above: Result Comment: Gluc ose result greater than or equal to 200 mg/dL suggests DIABETES MELLITUS per A.D.A. criteria. Performed By: #### L 500.2500, L100.0100 #### [facility] [address] [place], [address] Potassium [Moles/Vol] 3.4 mmol/L Low 3.5-5.1 [facility] Comment on above: Performed By: #### L 500.2500, L100.0100 #### [facility] [facility] [address] [place], [address] Sodium [Moles/Vol] 139 mmol/L Normal 136-145 [facility] Comment on above: Performed By: #### L 500.2500, L100.0100 #### [facility] [address] [place], [address] Urea nitrogen [Mass/Vol] 12 mg/dL Normal 7-18 [facility] Comment on above: Performed By: #### L 500.2500, L100.0100 #### [facility] [address] [place], [address] CBC W/Diff, Automatedon 10-31 Absolute Lymph 1.20 X10 3/uL Normal 0.83-4.51 [facility] Comment on above: Performed By: #### L 500.2500, L100.0100 #### [facility] [address] [place], [address] Absolute Neut 6.1 X10 3/uL Normal 2.0-7.7 [facility] Comment on above: Performed By: #### L 500.2500, L100.0100 #### [facility] [address] [place], [address] Basophils/100 WBC (Bld) 0.3 % Normal 0-1 [facility] Comment on above: Performed By: #### L 500.2500, L100.0100 #### [facility] [address] [place], [address] Eosinophils/100 WBC (Bld) 0.0 % Normal 0-5 [facility] Comment on above: Performed By: #### L 500.2500, L100.0100 #### [facility] [address] [place], [address] Erythrocyte distribution width (RBC) [Ratio] 13.3 % Normal 11.6-14.6 [facility] Comment on above: Performed By: #### L 500.2500, L100.0100 #### [facility] [address] [place], [address] Hematocrit (Bld) [Volume fraction] 40.4 % Normal 37-47 [facility] Comment on above: Performed By: #### L 500.2500, L100.0100 #### [facility] [address] [place], [address] Hemoglobin (Bld) [Mass/Vol] 13.4 g/dL Normal 12.0-15.0 [facility] Comment on above: Performed By: #### L 500.2500, L100.0100 #### [facility] [address] [place], [address] IG% 0.300 Normal 0.0-0.9 [facility] Comment on above: Result Comment: IG% - Immature Granulocytes (promyelocytes, myelocytes and metamyelocytes) > 1% indicates that a LEFT SHIFT is Present. Performed By: #### L 500.2500, L100.0100 #### [facility] [address] [place], [address] Lymphocytes/100 WBC (Bld) 16.1 % Low 19-41 [facility] Comment on above: Performed By: #### L 500.2500, L100.0100 #### [facility] [address] [facility] [place], [address] MCH (RBC) [Entitic mass] 29.0 pg Normal 27.0-32.0 [facility] Comment on above: Performed By: #### L 500.2500, L100.0100 #### [facility] [address] [place], [address] MCHC (RBC) [Mass/Vol] 33.2 g/dL Normal 32-36 [facility] Comment on above: Performed By: #### L 500.2500, L100.0100 #### [facility] [address] [place], [address] MCV (RBC) [Entitic vol] 87.4 fL Normal 81-99 [facility] Comment on above: Performed By: #### L 500.2500, L100.0100 #### [facility] [address] [place], [address] Monocytes/100 WBC (Bld) 1.2 % Normal 0-10 [facility] Comment on above: Performed By: #### L 500.2500, L100.0100 #### [facility] [address] [place], [address] Neutrophils/100 WBC (Bld) 82.1 % High 47-70 [facility] Comment on above: Performed By: #### L 500.2500, L100.0100 #### [facility] [address] [place], [address] Nucleated RBC (Bld) [#/Vol] 0 10*3/uL Normal 0-5 [facility] Comment on above: Performed By: #### L 500.2500, L100.0100 #### [facility] [address] [place], [address] Platelet mean volume (Bld) [Entitic vol] 11.5 fL Normal 6.2-12.0 [facility] Comment on above: Performed By: #### L 500.2500, L100.0100 #### [facility] [address] [place], [address] Platelets (Bld) [#/Vol] 205 10*3/uL Normal 150-450 [facility] Comment on above: Performed By: #### L 500.2500, L100.0100 #### [facility] [address] [place], [address] RBC (Bld) [#/Vol] 4.62 10*6/uL Normal 4.2-5.4 [facility] Comment on above: Performed By: #### L 500.2500, L100.0100 #### [facility] [address] [place], [address] RDW SD 42.8 fl Normal 35.1-43.9 [facility] Comment on above: Performed By: #### L 500.2500, L100.0100 #### [facility] [address] [place], [address] WBC (Bld) [#/Vol] 7.5 10*3/uL Normal 4.4-11.0 [facility] Comment on above: Performed By: #### L 500.2500, L100.0100 #### [facility] [address] [place], [address] BNP (brain natriuretic pepti de measurement)Ordered By: Doron Bernardo on 11-17-2024 Natriuretic peptide B (Bld) [Mass/Vol] 25.2 pg/mL 0-100 [facility] BNP,B-Type NATRIURETIC PEPTI Izaiah 11-17-2024 Natriuretic peptide B (Bld) [Mass/Vol] 25.2 pg/mL Normal 0-100 [facility] Comment on above: Performed By: #### L 100.0100, L500.2500 #### [facility] [address] [place], [address] Basic Metabolic Profile (BMP )on 11-17-2024 BUN/CRE 9.3 RATIO Low 10-20 [facility] Comment on above: Performed By: #### L 100.0100, L500.2500 #### [facility] [address] [place], [address] CA,Total 9.4 mg/dL Normal 8.5-10.1 [facility] Comment on above: Performed By: #### L 100.0100, L500.2500 #### [facility] [address] [place], [address] Chloride [Moles/Vol] 102 mmol/L Normal 98-107 [facility] Comment on above: Performed By: #### L 100.0100, L500.2500 #### [facility] [address] [place], [address] CO2 [Moles/Vol] 27.0 mmol/L Normal 21.0-32.0 [facility] Comment on above: Performed By: #### L 100.0100, L500.2500 #### [facility] [address] [place], [address] Creatinine [Mass/Vol] 1.07 mg/dL High 0.55-1.02 [facility] Comment on above: Result Comment: The validity of the calculated GFR GFRAA in patients over 70 years has not been determined. Clinical correlation is essential. Performed By: #### L 100.0100, L500.2500 #### [facility] [address] [place], [address] ECRCL 57.66 ml/min Normal [facility] Comment on above: Performed By: #### L 100.0100, L500.2500 #### [facility] [address] [place], [address] EST GFR - AA 65 mL/min Normal >60 [facility] Comment on above: Result Comment: Afri can Finnish GFR Calc Performed By: #### L 100.0100, L500.2500 #### [facility] [address] [place], [address] GAP 10 Normal 5-15 [facility] Comment on above: Performed By: #### L 100.0100, L500.2500 #### [facility] [address] [place], [address] GFR/1.73 sq M.predicted among non-blacks MDRD (S/P/Bld) [Vol rate/Area] 54 mL/min/{1.73_m2} Low >60 [facility] Comment on above: Result Comment: Non- GFR Calc Performed By: #### L 100.0100, L500.2500 #### [facility] [address] [place], [address] Glucose [Mass/Vol] 105 mg/dL Normal 74-106 [facility] Comment on above: Result Comment: Fast ing Glucose result from 100 to 125 mg/dL suggests IMPAIRED HOMEOSTASIS per A.D.A. criteria. Performed By: #### L 100.0100, L500.2500 #### [facility] [address] [place], [address] Potassium [Moles/Vol] 3.5 mmol/L Normal 3.5-5.1 [facility] Comment on above: Result Comment: Slig ht Hemolysis, Result may be falsely increased. Performed By: #### L 100.0100, L500.2500 #### [facility] [address] [place], [address] Sodium [Moles/Vol] 139 mmol/L Normal 136-145 [facility] Comment on above: Performed By: #### L 100.0100, L500.2500 #### [facility] [address] [place], [address] Urea nitrogen [Mass/Vol] 10 mg/dL Normal 7-18 [facility] Comment on above: Performed By: #### L 100.0100, L500.2500 #### [facility] [address] [place], [address] CBC W/Diff, Automatedon 10-31 PLT EST A Normal ADEQ [facility] Comment on above: Performed By: #### L 100.0100, L500.2500 #### [facility] [address] [place], [address] Chest PA and Lateralon 11-17 Chest PA and Lateral [facility] Imaging Services [address] [place] [address] Chest PA and Lateral MR#: [id number] Acct: [id number] Name: DIANNE ALVES Rep #: [id number] : 1955 F 69 From: Aquiles De La Torre MD PCP: Dr. Leonie Peterson MD Status: REG ER Study: Chest PA and Lateral Date of Exam: 11/17/24 Exam# [id number] Ordering Dr: Doron Bernardo DO PROCEDURE: CHEST [...] Leonie Peterson MD; Dr. Doron Bernardo DO Ict Analyst: Signed Normal [facility] Echo Complete W/ Contraston 11-17-2024 Echo Complete W/ Contrast [facility] [address] [place] [address] Echo Complete W/ Contrast 11/18/24 1311 MR#: [id number] Acct: [id number] Name: DIANNE ALVES Rep #: [id number] : 1955 69 From: Alexia Gil MD Attending Dr: Dr. Rita Kenny MD Status: AD M IN Ordering Dr: Stephenie Yu MD Date: 11/17/24 Location: [facility] Sex: F AA Admitted: 11/17/24 Reason For [...] Dictated: 11/18/24 1311 Date Transcribed: 11/18/24 1447 Ict Analyst: Signed Normal [facility] Emergency Department Summary on 11-17-2024 Emergency Department Summary [facility] Medical Records Department [address] [place] [address] Emergency Department Summary 11/17/24 MR#: [id number] Acct: [id number] Name: DIANNE ALVES Rep #: [id number] : 1955 69 From: Doron Bernardo DO [...] placed her on 5 L nasal cannula. [facility] Medical History Wears glasses Post-menopausal Gastric reflux [...] conjunctival injection (more content not included)... Normal [facility] H AND P Exam - Hospitaliston 11-17-2024 H&P Exam - Hospitalist [facility] Medical Records Department [address] [place] [address] H P Exam - Hospitalist 11/17/24 1457 MR#: [id number] Acct: [id number] Name: DIANNE ALVES Rep #: [id number] : 1955 69 From: Stephenie Yu MD PCP: Dr. Leonie Peterson MD Status:ADM IN Location: [place] [id number] HPI - General General Date of Admission: 11/17/24 Date of Service: 11/17/24 Chief Complaint: Increase shortness of breath HPI Narrative DIANNE ALVES, is a 69-year-old female history of COPD on 2 L nasal cannula chronically, GERD, hep C who presented [facility] ED 09/16/2025 due to shortness of breath. [...] thinner or if she is on 1. [facility] Medical History Wears glasses Post-menopausal Gastric reflux [...] former substanc (more content not included)... Normal [facility] Influenza virus A and B and SARS-CoV-2 (COVID-19) and Respiratory syncytial virus RNAOrdered By: Doron Bernardo on 11-17-2024 SARS-CoV-2 (COVID-19) RNA SHEELA+probe Ql (Unsp spec) Influenzae A Abnormal [facility] International normalized rat io (INR) calculationOrdered By: Doron Bernardo on 11-17-2024 INR Coag (Bld) [Relative time] 1.1 {INR} [facility] L501.4020on 11-17-2024 TROPONIN-I HS 59 pg/mL High 3.0-54.0 [facility] Comment on above: Order Comment: 'TROP ' Serial specimen #1, #2 or #3: 1 Result Comment: Plea se Note: New Test Units and Gender Specific Reference Ranges. For more information see Policy Stat Procedure [place] High Sensitivity Troponin (TNIH) and attachments. Performed By: #### L 100.0100, L500.2500 #### [facility] [address] [place], [address] TROPONIN-I HS 71 pg/mL High 3.0-54.0 [facility] Comment on above: Result Comment: Plea se Note: New Test Units and Gender Specific Reference Ranges. For more information see Policy Stat Procedure [place] High Sensitivity Troponin (TNIH) and attachments. Performed By: #### L 501.4020 #### [facility] [address] [place], [address] L501.5425on 11-17-2024 TROPONIN-I HS 68 pg/mL High 3.0-54.0 [facility] Comment on above: Order Comment: 1Y Result Comment: [place] Note: New Test Units and Gender Specific Reference Ranges. For more information see Policy Stat Procedure [place] High Sensitivity Troponin (TNIH) and attachments. Performed By: #### L 100.0100, L500.2500 #### [facility] [address] [place], [address] M100.678on 11-17-2024 M100.678 Normal Reference Ran ge = Negative FLUABV+SARS-CoV-2+RSV Pnl Resp SHEELA+probe [employer] Instrument, PCR method FLUABV+SARS-CoV-2+RSV Pnl Resp SHEELA+probe Copy of report sent to Infection Control Printer [id number] 11/17/24 3256 HEATHERJAIMIE. FLUABV+SARS-CoV-2+RSV Pnl Resp SHEELA+probe RESULTS CALLED TO Yves FITZPATRICK 11/17/24 1317 [place]. REPORT READ BACK BY . SARS-CoV-2 (COVID 19) Negative INFLUENZA A A Positive A INFLUENZA B Negative RSV PCR Negative INFLUENZAE A Normal [facility] Comment on above: Performed By: #### M 100.678 ####[facility] [id number] [place], [place], [id number] Partial Thromboplast Timeon 11-17-2024 aPTT Coag (Bld) [Time] 28.7 s Normal 24.1-36.2 [facility] Comment on above: Order Comment: HUGO Alegria PREVIOUS SPECIMEN REJECTED DUE TOHEMOLYSIS. 11/17/24 1237 Maria Elena Courtney. Performed By: #### L 300.4310, L300.3900 ####[facility] [address] [place], [place], [id number] Platelets LM Ql (Bld)Ordered By: Doron Bernardo on 11-17-2024 Platelet Estimate A ADEQ [facility] Prothrombin Time w/INRon INR Coag (PPP) [Relative time] 1.1 {INR} Normal [facility] Comment on above: Order Comment: REDRA W. PREVIOUS SPECIMEN REJECTED DUE TOHEMOLYSIS. 11/17/24 1237 Maria Elena Courtney. Performed By: #### L 300.4310, L300.3900 ####[facility] [address] [place], [address] PT Coag (PPP) [Time] 14.5 s Normal 11.7-14.9 [facility] Comment on above: Order Comment: REDRA W. PREVIOUS SPECIMEN REJECTED DUE TOHEMOLYSIS. 11/17/24 1237 Maria Elena Courtney. Performed By: #### L 300.4310, L300.3900 ####[facility] [address] [place], [address] INR Normal [facility] Comment on above: Result Comment: This specimen has been REJECTED due to Laboratory criteria: Hemolyzed. KRANTHI has been notified of need of recollection. 11/17/24 1236 Maria Elena Dealzano Performed By: #### L 100.0100, L500.2500 #### [facility] [address] [place], [address] PROTIME Normal 11.7-14.9 [facility] Comment on above: Result Comment: This specimen has been REJECTED due to Laboratory criteria: Hemolyzed. KRANTHI has been notified of need of recollection. 11/17/24 1236 Maria Elean Dealzano Performed By: #### L 100.0100, L500.2500 #### [facility] [address] [place], [address] Prothrombin timeOrdered By: Doron Bernardo on 11-17-2024 PT Coag (PPP) [Time] 14.5 s 11.7-14.9 [facility] Troponin IOrdered By: Stephenie Yu on 11-17-2024 Troponin I High Sensitivity 59 pg/mL High 3.0-54.0 [facility] Comment on above: Please Note: New Fina t Units and Gender Specific Reference Ranges. For more information see Policy Stat Procedure [place] High Sensitivity Troponin (TNIH) and attachments. aPTT Coag (PPP) [Time]Ordere d By: Doron Bernardo on 11-17-2024 aPTT Coag (Bld) [Time] 28.7 s 24.1-36.2 [facility] CNCOon 11-11-2024 CNCO Letter Text Normal [facility] CNOVon 11-09-2024 CNOV Normal [facility] CT LUNG SCREEN WO IVCONon CT LUNG SCREEN WO IVCON Normal [facility] Basic metabolic 2000 panelon 10-30-2024 Anion gap [Moles/Vol] 11 mmol/L Normal 8-15 [facility] Comment on above: Order Comment: Speci men Type: BLOOD SPECIMENOrdering Facility: [facility] Address: [address] [place] [address] Performed By: #### 2 4321-2, 32521-3, 3051-0, 3053-6 ####[facility] LABCLIA [id number] [place] [address] [place] Calcium [Mass/Vol] 9.8 mg/dL Normal 8.5-10.2 [facility] Comment on above: Order Comment: Speci men Type: BLOOD SPECIMENOrdering Facility: [facility] Address: [address] [place] [address] Performed By: #### 2 4321-2, 93250-3, 3051-0, 3053-6 ####[facility] LABCLIA [id number] [place] [address] [place] Chloride [Moles/Vol] 106 mmol/L Normal 98-107 [facility] Comment on above: Order Comment: Speci men Type: BLOOD SPECIMENOrdering Facility: [facility] Address: [address] [place] [address] Performed By: #### 2 4321-2, 50501-4, 3051-0, 3053-6 ####[facility] LABCLIA [id number] [place] [address] [place] CO2 [Moles/Vol] 23 mmol/L Normal 22-30 [facility] Comment on above: Order Comment: Speci men Type: BLOOD SPECIMENOrdering Facility: [facility] Address: [address] [place] [address] Performed By: #### 2 4321-2, 70366-4, 3051-0, 3053-6 ####[facility] LABCLIA [id number] [place] [address] [place] Creatinine [Mass/Vol] 1.03 mg/dL High 0.58-0.96 [facility] Comment on above: Order Comment: Speci men Type: BLOOD SPECIMENOrdering Facility: [facility] Address: [address] [place] [address] Performed By: #### 2 4321-2, 73101-6, 3051-0, 3053-6 ####[facility] LABIA [id number] [place] [address] [place] Creatinine and Glomerular filtration rate.predicted panel (S/P/Bld) 59 mL/min/1.73m??? Low >=60 [facility] Comment on above: Order Comment: Jalen santizo Type: BLOOD SPECIMENOrdering Facility: [facility] Address: [address] [place] [address] Result Comment: Sigrid mated Glomerular Filtration Rate [...] actual GFR. Performed By: #### 2 4321-2, 88670-9, 3051-0, 3053-6 ####[facility] LABCLIA [id number] [place] [address] [place] Glucose [Mass/Vol] 98 mg/dL Normal 74-99 [facility] Comment on above: Order Comment: Wmi men Type: BLOOD SPECIMENOrdering Facility: [facility] Address: [address] [place] [address] Result Comment: The [place] Diabetes Association (ADA) provides guidance for cutoff [...] Standards of Medical Care in Diabetes 2016, [place] Diabetes Association. Diabetes Care. 2016.39(Suppl 1). Performed By: #### 2 4321-2, 75325-1, 3051-0, 3053-6 ####[facility] LABCLIA [id number] [place] [address] [place] Potassium [Moles/Vol] 4.1 mmol/L Normal 3.7-5.1 [facility] Comment on above: Order Comment: Jalen santizo Type: BLOOD SPECIMENOrdering Facility: [facility] Address: [address] [place] [address] Performed By: #### 2 4321-2, 44328-2, 3051-0, 3053-6 ####[facility] LABCLIA [id number] [place] [address] [place] Sodium [Moles/Vol] 140 mmol/L Normal 136-144 [facility] Comment on above: Order Comment: Wmi men Type: BLOOD SPECIMENOrdering Facility: [facility] Address: [address] [place] [address] Performed By: #### 2 4321-2, 79320-8, 3051-0, 3053-6 ####[facility] LABCLIA [id number] [place] [address] [place] Urea nitrogen [Mass/Vol] 14 mg/dL Normal 7-21 [facility] Comment on above: Order Comment: Speci men Type: BLOOD SPECIMENOrdering Facility: [facility] Address: [address] [place] [address] Performed By: #### 2 4321-2, 23071-9, 3051-0, 3053-6 ####[facility] LABCLIA [id number] [place] [address] [place] CBC W Auto Differential pane l (Bld)on 10-30-2024 Basophils (Bld) [#/Vol] 0.04 10*3/uL Normal <0.11 [facility] Comment on above: Order Comment: Speci men Type: BLOOD SPECIMENOrdering Facility: [facility] Address: [address] [place] [address] Performed By: #### 5 7021-8 ####[facility] LABCLIA [id number] [place] [address] [place] Basophils/100 WBC (Bld) 0.7 % Normal [facility] Comment on above: Order Comment: Speci men Type: BLOOD SPECIMENOrdering Facility: [facility] Address: [address] [place] [address] Performed By: #### 5 7021-8 ####[facility] LABCLIA [id number] [place] [address] [place] Differential cell count method Nom (Bld) Auto Normal [facility] Comment on above: Order Comment: Speci men Type: BLOOD SPECIMENOrdering Facility: [facility] Address: [address] [place] [address] Performed By: #### 5 7021-8 ####[facility] LABCLIA [id number] [place] [address] [place] Eosinophils (Bld) [#/Vol] 0.27 10*3/uL Normal <0.46 [facility] Comment on above: Order Comment: Speci men Type: BLOOD SPECIMENOrdering Facility: [facility] Address: [address] [place] [address] Performed By: #### 5 7021-8 ####[facility] LABCLIA [id number] [place] [address] [place] Eosinophils/100 WBC (Bld) 4.7 % Normal [facility] Comment on above: Order Comment: Speci men Type: BLOOD SPECIMENOrdering Facility: [facility] Address: [address] [place] [address] Performed By: #### 5 7021-8 ####[facility] LABIA [id number] [place] [address] [place] Erythrocyte distribution width (RBC) [Ratio] 13.9 % Normal 11.5-15.0 [facility] Comment on above: Order Comment: Speci men Type: BLOOD SPECIMENOrdering Facility: [facility] Address: [address] [place] [address] Performed By: #### 5 7021-8 ####[facility] LABCLIA [id number] [place] [address] [place] Hematocrit (Bld) [Volume fraction] 46.4 % High 36.0-46.0 [facility] Comment on above: Order Comment: Speci men Type: BLOOD SPECIMENOrdering Facility: [facility] Address: [address] [place] [address] Performed By: #### 5 7021-8 ####[facility] LABCLIA [id number] [place] [address] [place] Hemoglobin (Bld) [Mass/Vol] 15.1 g/dL Normal 11.5-15.5 [facility] Comment on above: Order Comment: Speci men Type: BLOOD SPECIMENOrdering Facility: [facility] Address: [address] [place] [address] Performed By: #### 5 7021-8 ####[facility] LABCLIA [id number] [place] [address] [place] Immature granulocytes (Bld) [#/Vol] 10*3/uL Normal <0.10 [facility] Comment on above: Order Comment: Speci men Type: BLOOD SPECIMENOrdering Facility: [facility] Address: [address] [place] [address] Performed By: #### 5 7021-8 ####[facility] LABCLIA [id number] [place] [address] [place] Immature granulocytes/100 WBC (Bld) 0.2 % Normal [facility] Comment on above: Order Comment: Speci men Type: BLOOD SPECIMENOrdering Facility: [facility] Address: [address] [place] [address] Performed By: #### 5 7021-8 ####[facility] LABCLIA [id number] [place] [address] [place] Lymphocytes (Bld) [#/Vol] 2.33 10*3/uL Normal 1.00-4.00 [facility] Comment on above: Order Comment: Speci men Type: BLOOD SPECIMENOrdering Facility: [facility] Address: [address] [place] [address] Performed By: #### 5 7021-8 ####[facility] LABCLIA [id number] [place] [address] [place] Lymphocytes/100 WBC (Bld) 40.9 % Normal [facility] Comment on above: Order Comment: Speci men Type: BLOOD SPECIMENOrdering Facility: [facility] Address: [address] [place] [address] Performed By: #### 5 7021-8 ####[facility] LABCLIA [id number] [place] [address] [place] MCH (RBC) [Entitic mass] 29.2 pg Normal 26.0-34.0 [facility] Comment on above: Order Comment: Speci men Type: BLOOD SPECIMENOrdering Facility: [facility] Address: [address] [place] [address] Performed By: #### 5 7021-8 ####[facility] LABCLIA [id number] [place] [address] [place] MCHC (RBC) [Mass/Vol] 32.5 g/dL Normal 30.5-36.0 [facility] Comment on above: Order Comment: Speci men Type: BLOOD SPECIMENOrdering Facility: [facility] Address: [address] [place] [address] Performed By: #### 5 7021-8 ####[facility] LABIA [id number] [place] [address] [place] MCV (RBC) [Entitic vol] 89.6 fL Normal 80.0-100.0 [facility] Comment on above: Order Comment: Speci men Type: BLOOD SPECIMENOrdering Facility: [facility] Address: [address] [place] [address] Performed By: #### 5 7021-8 ####[facility] LABIA [id number] [place] [address] [place] Monocytes (Bld) [#/Vol] 0.37 10*3/uL Normal <0.87 [facility] Comment on above: Order Comment: Speci men Type: BLOOD SPECIMENOrdering Facility: [facility] Address: [address] [place] [address] Performed By: #### 5 7021-8 ####[facility] LABIA [id number] [place] [address] [place] Monocytes/100 WBC (Bld) 6.5 % Normal [facility] Comment on above: Order Comment: Speci men Type: BLOOD SPECIMENOrdering Facility: [facility] Address: [address] [place] [address] Performed By: #### 5 7021-8 ####[facility] LABCLIA [id number] [place] [address] [place] Neutrophils (Bld) [#/Vol] 2.67 10*3/uL Normal 1.45-7.50 [facility] Comment on above: Order Comment: Speci men Type: BLOOD SPECIMENOrdering Facility: [facility] Address: [address] [place] [address] Performed By: #### 5 7021-8 ####[facility] LABCLIA [id number] [place] [address] [place] Neutrophils/100 WBC (Bld) 47.0 % Normal [facility] Comment on above: Order Comment: Speci men Type: BLOOD SPECIMENOrdering Facility: [facility] Address: [address] [place] [address] Performed By: #### 5 7021-8 ####[facility] LABCLIA [id number] [place] [address] [place] Nucleated RBC (Bld) [#/Vol] 10*3/uL Normal <0.01 [facility] Comment on above: Order Comment: Speci men Type: BLOOD SPECIMENOrdering Facility: [facility] Address: [address] [place] [address] Performed By: #### 5 7021-8 ####[facility] LABCLIA [id number] [place] [address] [place] Nucleated RBC/100 WBC (Bld) [Ratio] 0.0 /100 WBC Normal [facility] Comment on above: Order Comment: Speci men Type: BLOOD SPECIMENOrdering Facility: [facility] Address: [address] [place] [address] Performed By: #### 5 7021-8 ####[facility] LABCLIA [id number] [place] [address] [place] Platelet mean volume (Bld) [Entitic vol] 10.8 fL Normal 9.0-12.7 [facility] Comment on above: Order Comment: Speci men Type: BLOOD SPECIMENOrdering Facility: [facility] Address: [address] [place] [address] Performed By: #### 5 7021-8 ####[facility] LABCLIA [id number] [place] [address] [place] Platelets (Bld) [#/Vol] 290 10*3/uL Normal 150-400 [facility] Comment on above: Order Comment: Speci men Type: BLOOD SPECIMENOrdering Facility: [facility] Address: [address] [place] [address] Performed By: #### 5 7021-8 ####[facility] LABCLIA [id number] [place] [address] [place] RBC (Bld) [#/Vol] 5.18 10*6/uL Normal 3.90-5.20 [facility] Comment on above: Order Comment: Speci men Type: BLOOD SPECIMENOrdering Facility: [facility] Address: [address] [place] [address] Performed By: #### 5 7021-8 ####[facility] LABCLIA [id number] [place] [address] [place] WBC (Bld) [#/Vol] 5.69 10*3/uL Normal 3.70-11.00 [facility] Comment on above: Order Comment: Speci men Type: BLOOD SPECIMENOrdering Facility: [facility] Address: [address] [place] [address] Performed By: #### 5 7021-8 ####[facility] LABCLIA [id number] [place] [address] [place] CNOVon 10-30-2024 CNOV Normal [facility] HbA1c (Bld)on 10-30-2024 Average glucose Estimated from glycated hemoglobin (Bld) [Mass/Vol] 120 mg/dL Normal [facility] Comment on above: Order Comment: Jalen santizo Type: BLOOD SPECIMENOrdering Facility: [facility] Address: [address] [place] [address] Result Comment: eAG: (Estimated average glucose) is a calculated value from HgbA1c and is mortician supplies sales representative of the average blood glucose level in the last 2-3 month period. Performed By: #### 5 5454-3 ####[facility] LABCLIA [id number] [place] [address] [place] HbA1c (Bld) [Mass fraction] 5.8 % High 4.3-5.6 [facility] Comment on above: Order Comment: Jalen santizo Type: BLOOD SPECIMENOrdering Facility: [facility] Address: [address] [place] [address] Result Comment: Amer ican Diabetes Association guidelines indicate that patients with HgbA1c in the range 5.7-6.4% are at increased risk for development of diabetes, and intervention by lifestyle modification may be beneficial. HgbA1c greater or equal to 6.5% is considered diagnostic of diabetes. Performed By: #### 5 5454-3 ####[facility] LABCLIA [id number] [place] [address] [place] Lipid 1996 panelon 5 Cholesterol [Mass/Vol] 241 mg/dL High <200 [facility] Comment on above: Order Comment: Jalen santizo Type: BLOOD SPECIMENOrdering Facility: [facility] Address: [address] [place] [address] Result Comment: <200 mg/dL, Desirable 200-239 mg/dL, Borderline high>239 mg/dL, High Performed By: #### 2 4321-2, 38481-7, 3051-0, 3053-6 ####[facility] LABCLIA [id number] [address] [place] Cholesterol in HDL [Mass/Vol] 51 mg/dL Normal >39 [facility] Comment on above: Order Comment: Jalen sukhdev Type: BLOOD SPECIMENOrdering Facility: [facility] Address: [address] [place] [address] Result Comment: 40-5 9 mg/dL, Acceptable>59 mg/dL, High: Negative risk factor for coronary heart disease<40 mg/dL, Low: Positive risk factor for coronary heart disease Performed By: #### 2 4321-2, 71372-0, 3051-0, 3053-6 ####[facility] LABCLIA [id number] [place] [address] [place] Cholesterol in LDL [Mass/Vol] 166 mg/dL High <100 [facility] Comment on above: Order Comment: Speci men Type: BLOOD SPECIMENOrdering Facility: [facility] Address: [address] [place] [address] Result Comment: <100 mg/dL, Optimal 100-129 mg/dL, Near optimal/above optimal 130-159 mg/dL, Borderline high 160-189 mg/dL, High>189 mg/dL, Very highSecondary prevention optimal LDL Cholesterol levels are recommended to be < 70 mg/dL Performed By: #### 2 4321-2, 15272-4, 3051-0, 3053-6 ####[facility] LABCLIA [id number] [place] [address] [place] Cholesterol in LDL/Cholesterol in HDL [Mass ratio] 3.25 {ratio} High <2.54 [facility] Comment on above: Order Comment: Speci men Type: BLOOD SPECIMENOrdering Facility: [facility] Address: [address] [place] [address] Result Comment: Refe rence:1. National Cholesterol Education Program ATP III Guideline At-A-Glance Quick Desk Reference: National Heart, Lung, and Blood Morton. National Institutes of Health. 2001: NIH Publication No. 01-3305.2. An International Atherosclerosis Society position paper: global recommendations for the management of dyslipidemia: executive summary, Atherosclerosis. 2014: 232(2):410-413. Performed By: #### 2 4321-2, 92436-7, 3051-0, 3053-6 ####[facility] LABCLIA [id number] [address] [address] [place] Cholesterol in VLDL [Mass/Vol] 24 mg/dL Normal <30 [facility] Comment on above: Order Comment: Speci men Type: BLOOD SPECIMENOrdering Facility: [facility] Address: [address] [place] [address] Performed By: #### 2 4321-2, 77724-6, 305-0, 305-6 ####[facility] LABCLIA [id number] [address] [address] [place] Cholesterol non HDL [Mass/Vol] 190 mg/dL High <130 [facility] Comment on above: Order Comment: Speci men Type: BLOOD SPECIMENOrdering Facility: [facility] Address: [address] [place] [address] Result Comment: <130 mg/dL, Optimal 130-159 mg/dL, Near optimal/above optimal 160-189 mg/dL, Borderline high 190-219 mg/dL, High>219 mg/dL, Very highSecondary prevention optimal non HDL Cholesterol levels are recommended to be <100 mg/dL Performed By: #### 2 4321-2, 32666-2, 305-0, 305-6 ####[facility] LABCLIA [id number] [address] [address] [place] Cholesterol.total/Chol esterol in HDL [Mass ratio] 4.73 {ratio} Normal <5.10 [facility] Comment on above: Order Comment: Speci men Type: BLOOD SPECIMENOrdering Facility: [facility] Address: [address] [place], [place] [address] Performed By: #### 2 4321-2, 44620-8, 305-0, 305-6 ####[facility] LABCLIA [id number] [address] [address] [place] FASTING TIME 12 hrs Normal [facility] Comment on above: Order Comment: Speci men Type: BLOOD SPECIMENOrdering Facility: [facility] Address: [address] [place] [address] Performed By: #### 2 4321-2, 90737-1, 305-0, 3056 ####[facility] LABCLIA [id number] [place] [address] [place] Triglyceride [Mass/Vol] 120 mg/dL Normal <150 [facility] Comment on above: Order Comment: Speci men Type: BLOOD SPECIMENOrdering Facility: [facility] Address: [address] [place] [address] Result Comment: <150 mg/dL, Normal 150-199 mg/dL, Borderline high 200-499 mg/dL, High>499 mg/dL, Very high Performed By: #### 2 4321-2, 60592-5, 305-0, 6 ####[facility] LABCLIA [id number] [place] [address] [place] Magnesium SerPl-mCncon 10-30 Magnesium [Mass/Vol] 2.0 mg/dL Normal 1.7-2.3 [facility] Comment on above: Order Comment: Speci men Type: BLOOD SPECIMENOrdering Facility: [facility] Address: [address] [place] [address] Performed By: #### 3 024-7, 95797-6, 3016-3 ####[facility] LABCLIA [id number] [place] [address] [place] T3 SerPl-mCncon 10-30-2024 T3 [Mass/Vol] 101 ng/dL Normal 79-165 [facility] Comment on above: Order Comment: Speci men Type: BLOOD SPECIMENOrdering Facility: [facility] Address: [address] [place] [address] Performed By: #### 2 4321-2, 88041-7, 305-0, 3056 ####[facility] LABCLIA [id number] [place] [address] [place] T3Free SerPl-mCncon 10-30-19 25 Free T3 [Mass/Vol] 3.1 pg/mL Normal 2.3-4.1 [facility] Comment on above: Order Comment: Speci men Type: BLOOD SPECIMENOrdering Facility: [facility] Address: [address] [place] [address] Performed By: #### 2 4321-2, 27495-2, 3051-0, 3053-6 ####[facility] LABIA [id number] [place] [address] [place] T4 Free SerPl-mCncon 025 Free T4 [Mass/Vol] 1.3 ng/dL Normal 0.9-1.7 [facility] Comment on above: Order Comment: Speci men Type: BLOOD SPECIMENOrdering Facility: [facility] Address: [address] [place] [address] Performed By: #### 3 024-7, 02312-5, 3016-3 ####[facility] [id number] [place] [address] [place] TSH SerPl-aCncon 10-30-2024 TSH Qn 0.138 m[IU]/L Low 0.270-4.200 [facility] Comment on above: Order Comment: Speci men Type: BLOOD SPECIMENOrdering Facility: [facility] Address: [address] [place] [address] Performed By: #### 3 024-7, 39654-3, 3016-3 ####[facility] [id number] [place] [address] [place] CNOVon 10-27-2024 CNOV Office Visit (AGHWW1 ) -------- DIANNE ALVES ([id number]) 1955 F Date Time Provider Department 10/27/24 [...] Order(s):XR SHOULDER 3V AP/Y VIEW/AXILLARY LEFT ([place]) [[id number]] Order #: [id number] diclofenac (VOLTAREN) 1 % topical gelApply 2 [...] as needed for wheezing/shortness of breath. - kbkeylvazz-xmoavnuw-xgnd oterol (BREZTRI) 160-9-4.8 mcg/actuation HFA aerosol inhaler [...] (more content not included)... Normal [facility] CNPNon 09-25-2024 CNPN Normal [facility] CNOVon 09-21-2024 CNOV Normal [facility] T3 SerPl-mCncon 09-21-2024 T3 [Mass/Vol] 88 ng/dL Normal 79-165 [facility] Comment on above: Order Comment: Speci men Type: BLOOD SPECIMENOrdering Facility: [facility] Address: [address] [place] [address] Performed By: #### 3 053-6, 3016-3, 3024-7 ####[facility] LABCLIA [id number] [facility] [id number] [address] [place] T4 Free SerPl-mCncon 024 Free T4 [Mass/Vol] 1.3 ng/dL Normal 0.9-1.7 [facility] Comment on above: Order Comment: Speci men Type: BLOOD SPECIMENOrdering Facility: [facility] Address: [address] [place] [address] Performed By: #### 3 053-6, 3016-3, 3024-7 ####[facility] LABCLIA [id number] [address] [place] TSH SerPl-aCncon 09-21-2024 TSH Qn 0.648 m[IU]/L Normal 0.270-4.200 [facility] Comment on above: Order Comment: Speci men Type: BLOOD SPECIMENOrdering Facility: [facility] Address: [address] [place] [address] Performed By: #### 3 053-6, 3016-3, 3024-7 ####[facility] LABCLIA [id number] [address] OF [facility] CNOVon 09-15-2024 CNOV Office Visit (AGHWW1 ) -------- DIANNE ALVES ([id number]) 1955 F Date Time Provider Department 09/15/24 [...] Order(s):XR SHOULDER 3V AP/Y VIEW/AXILLARY LEFT ([place]) [[id number]] Order #: [id number] CONSULT TO PHYSICAL THERAPY [9032] Order #: [id number]: 1 FUTURE oxyCODONE-acetaminophen (PERCOCET) 5-325 mg tabletTake [...] as needed for wheezing/shortness of breath. - tatljaiyjs-zoxunooq-cphy oterol (BREZTRI) 160-9-4.8 mcg/actuation HFA aerosol inhaler [...] (more content not included)... Normal [facility] CNPTOUTREACHon 09-08-2024 CNPTOUTREACH Normal [facility] CNPTOUTREACHon 08-28-2024 CNPTOUTREACH Normal [facility] CNPTOUTREACHon 08-25-2024 CNPTOUTREACH Normal [facility] CNOVon 08-18-2024 CNOV Office Visit (AGHWW1 ) -------- DIANNE ALVES ([id number]) 1955 F Date Time Provider Department 08/18/24 [...] AND Elbow Surgeon Department of Orthopaedic Surgery [facility] Allergies As of Date: 08/18/2024 (No Known Allergies) Date Reviewed: 08/18/2024 Reviewed by: Diogenes Varela Tech - Fully Assessed Reason for Visit: Follow Up [171] Pain [78] Post Op [174] Primary Visit Diagnosis:S/P reverse total shoulder arthroplasty, left [Z96.612] Order(s):XR SHOULDER 3V AP/Y VIEW/AXILLARY LEFT ([place]) [[id number]] Order #: [id number] oxyCODONE-acetaminophen (PERCOCET) 5-325 mg tabletTake 1 tablet [...] as needed for wheezing/shortness of breath. - ymsdmeivel-vxvrepdj-gwyg oterol (BREZTRI) 160-9-4.8 mcg/actuation HFA aerosol inhaler [...] Disp pa (more content not included)... Normal [facility] CNPNon 08-18-2024 CNPN Normal [facility] CNPNon 08-17-2024 CNPN Normal [facility] CBC panel Auto (Bld)on 08-14 Erythrocyte distribution width (RBC) [Ratio] 14.4 % Normal 11.5-15.0 [facility] Comment on above: Order Comment: Speci men Type: BLOOD SPECIMENOrdering Facility: [facility] Address: [address] [place] [address] Performed By: #### 5 8410-2 ####[facility] LABIA [id number] [place] [address] [place] Hematocrit (Bld) [Volume fraction] 41.4 % Normal 36.0-46.0 [facility] Comment on above: Order Comment: Speci men Type: BLOOD SPECIMENOrdering Facility: [facility] Address: [address] [place] [address] Performed By: #### 5 8410-2 ####[facility] LABIA [id number] [place] [address] [place] Hemoglobin (Bld) [Mass/Vol] 13.2 g/dL Normal 11.5-15.5 [facility] Comment on above: Order Comment: Speci men Type: BLOOD SPECIMENOrdering Facility: [facility] Address: [address] [place] [address] Performed By: #### 5 8410-2 ####[facility] LABIA [id number] [place] [address] [place] MCH (RBC) [Entitic mass] 29.3 pg Normal 26.0-34.0 [facility] Comment on above: Order Comment: Speci men Type: BLOOD SPECIMENOrdering Facility: [facility] Address: [address] [place] [address] Performed By: #### 5 8410-2 ####[facility] LABIA [id number] [place] [address] [place] MCHC (RBC) [Mass/Vol] 31.9 g/dL Normal 30.5-36.0 [facility] Comment on above: Order Comment: Speci men Type: BLOOD SPECIMENOrdering Facility: [facility] Address: [address] [place] [address] Performed By: #### 5 8410-2 ####[facility] LABCLIA [id number] [place] [address] [place] MCV (RBC) [Entitic vol] 92.0 fL Normal 80.0-100.0 [facility] Comment on above: Order Comment: Speci men Type: BLOOD SPECIMENOrdering Facility: [facility] Address: [address] [place] [address] Performed By: #### 5 8410-2 ####[facility] LABCLIA [id number] [place] [address] [place] Nucleated RBC (Bld) [#/Vol] 10*3/uL Normal <0.01 [facility] Comment on above: Order Comment: Speci men Type: BLOOD SPECIMENOrdering Facility: [facility] Address: [address] [place] [address] Performed By: #### 5 8410-2 ####[facility] LABCLIA [id number] [place] [address] [place] Platelet mean volume (Bld) [Entitic vol] 10.7 fL Normal 9.0-12.7 [facility] Comment on above: Order Comment: Speci men Type: BLOOD SPECIMENOrdering Facility: [facility] Address: [address] [place] [address] Performed By: #### 5 8410-2 ####[facility] LABCLIA [id number] [place] [address] [place] Platelets (Bld) [#/Vol] 301 10*3/uL Normal 150-400 [facility] Comment on above: Order Comment: Speci men Type: BLOOD SPECIMENOrdering Facility: [facility] Address: [address] [place] [address] Performed By: #### 5 8410-2 ####[facility] LABCLIA [id number] [place] [address] [place] RBC (Bld) [#/Vol] 4.50 10*6/uL Normal 3.90-5.20 [facility] Comment on above: Order Comment: Speci men Type: BLOOD SPECIMENOrdering Facility: [facility] Address: [address] [place] [address] Performed By: #### 5 8410-2 ####[facility] LABCLIA [id number] [place] [address] [place] WBC (Bld) [#/Vol] 7.01 10*3/uL Normal 3.70-11.00 [facility] Comment on above: Order Comment: Speci men Type: BLOOD SPECIMENOrdering Facility: [facility] Address: [address] [place] [address] Performed By: #### 5 8410-2 ####[facility] LABCLIA [id number] [place] [address] [place] CNOVon 08-14-2024 CNOV Normal [facility] CNPNon 08-14-2024 CNPN Normal [facility] PT panel Coag (PPP)on 2023 INR Coag (PPP) [Relative time] 1.1 {INR} Normal 0.9-1.3 [facility] Comment on above: Order Comment: Speci men Type: BLOOD SPECIMENOrdering Facility: [facility] Address: [address] [place] [address] Result Comment: Soraida min K Antagonist (VKA) Therapeutic Range: INR 2 to 3 (Target INR of 2.5)Note: For patients treated with VKA drugs, such as warfarin, the [employer] 2012 Guideline recommends [...] al. Chest 2012, 141:7S-47SNishimura RA, et al. [facility] 2017, 70: 252-289 Performed By: #### 3 4528-0 ####[facility] [id number] [place] [address] [place] PT Coag (PPP) [Time] 11.3 s Normal 9.7-13.0 [facility] Comment on above: Order Comment: Speci men Type: BLOOD SPECIMENOrdering Facility: [facility] Address: [address] [place] [address] Performed By: #### 3 4528-0 ####[facility] [id number] [place] [address] [place] XR RIBS 2V AP/OBL RTon 08-14 XR RIBS 2V AP/OBL RT Normal [facility] XR SHOULDER 2V AP/TRUE AP LT on 08-14-2024 XR SHOULDER 2V AP/TRUE AP LT Normal [facility] CNPNon 08-13-2024 CNPN Normal [facility] CNPNon 08-12-2024 CNPN Normal [facility] CNPTOUTREACHon 08-11-2024 CNPTOUTREACH Normal [facility] CNPNon 08-10-2024 CNPN Normal [facility] CASE MANAGEMon 08-09-2024 CASE MANAGEM HNO ID: [id number] Author: VANESA GUERRA RN Service: ? Author Type: Registered Nurse Type: Care Mgt Progress Note Filed: 08/09/2024 10:54 Note Text: CARE MANAGEMENT DISCHARGE NOTE SERVICE DATE: August 09, 2024 SERVICE TIME: 10:13 AM Admission Date: 08/07/2024 LOS: 0 days Discharge Arrangement Discharge Arrangement: Home with Home Health Services Arranged Medical Services: Skilled Home Health Care Type: Home Health Agency, Residential, Physical Therapy, Occupational Therapy Provider Name: [facility] Caregiver Assessment Caregiver is ready, willing and able to meet the patient's needs as recommended by the inter-professional team: Yes Name of Caregiver: Jewish friends Transportation Arrangements Transportation Arrangements: Car- Friend to transport Handoff Communication: Handoff to: Primary Care Physician Primary Care Physician Name/Phone: Dr. Leonie Peterson- [phone] Additional Information: Discharge order written for today. [facility] will be seeing the patient for [facility] services at discharge, they will notify the patient of a start of care date. Notified [facility] of the patients discharge home today. Discharge instructions sent to [facility] via [employer]. Patient states she has a portable 02 tank with her for her transport home. Discharge Information Row Name Admission (Current) from 08/07/[address] Home Health Care Agency [facility] SIGNATURE: Vanesa Guerra RN PATIENT NAME: Dianne Alves DATE: August 09, 2024 TIME: 10:13 AM CONTACT #: [phone] [facility] CASE MGT INIT Barbara 2023 CASE MGT INIT [facility] HNO ID: [id number] Author: VANESA GUERRA RN Service: ? Author [...] Care Advance Directives Current Advance Directive: None Fitness Plan Coordinator Attempted to Assist with AD Completion: Yes Action: Patient Unwilling Current Living Arrangements and Support Lives with: Alone Type of Residence: Private Residence (Apartment or Condo) Does the patient have to climb stairs at home?: No Support: Jewish/karo community How do you manage to accomplish the following: Independent: Ambulation;Bathe/Shower; Dress;Meals/Meal Prep;Going to the bathroom;Medication Management Dependent: Transportation to appointments/community Current Services/Equipment Current Post-Acute Service(s): DME, Oxygen Current O2 Usage (device, rate, continuous/pulse and hrs per day): 2 LPM, continuous Current DME Type: Rollator Scooter, Cane Discharge Planning Patient Goal(s): Be able to go home, Less pain [place] of Choice Explained: [place] of [place] Given: Yes Level of Care Discussed: Home Care Are you interested in bedside delivery of your medications? 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 Does not drive, takes a cab to her doctor appointments and religion members take her grocery shopping. The patient has Home 02 at 2L through [employer], states has her portable tank with her for her transport home. The patient stated she wants HHC at discharge, no preference on a HHC agency. Referral placed to multiple C agencies. CM department will continue to follow for DC needs. 9:32 am- [facility] able to accept. SIGNATURE: Vanesa Guerra RN PATIENT NAME: Dianne Alves DATE: August 09, 2024 TIME: 9:11 AM CONTACT #: [phone] [facility] 08-09-2024 [facility] HNO ID: [id number] Author: DOMINICK PAYTON MD Service: Orthopaedic Surgery [...] BLOOD PRESSURE KIT 1 Each once daily. bkukrbrkln-btwyphbk-smel oterol 160-9-4.8 mcg/actuation HFA aerosol inhaler Commonly [...] Your Medications These medications were sent to [facility] [address] - [place] [address] - [address] - [phone] [address] [place] [address] docusate sodium 100 mg capsule ondansetron 4 mg tablet oxyCODONE-acetaminophen 5-325 mg tablet polyethylene glycol 3350 17 gram packet FINAL DIAGNOSIS: s/p left reverse total shoulder arthroplasty Obesity Class I (BMI 30-34.9) SIGNATURE: Dominick Payton MD PATIENT NAME: Dianne Alves DATE: August 19, 2024 TIME: 10:32 AM [facility] THERAPY NTon 08-09-2024 THERAPY NT HNO ID: [id number] Author: CHANDLER ARAIZA PT Service: Physical Therapy Author Type: Physical Therapist Type: Therapy (PT/OT/Speech/Resp) Filed: 08/09/2024 10:10 Note Text: -------- Summary: PT Evaluation -------- Physical Therapy Evaluation Summary SERVICE DATE: 08/09/2024 SERVICE TIME: 912 to 935 ROOM: [id number]- PT 6 Clicks Score: 19 Total Joint [...] Other: See Comment Comments: from friends at religion Entry To Home: No Stairs Number Of Stairs To Bed/Bath: 0 Tub/Shower Type: combo Laundry: assume self completes Equipment Owned: Rollator, Grab Bars- Shower PRIOR FUNCTIONAL LEVEL Within Functional Limits Patient reports independence with 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 Reports has 2 dogs [...] Lord can heal her. Reports friend from religion will drive her home today. 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 Normal [facility] THERAPY NT HNO ID: [id number] Author: CHANDLER ARAIZA, PT Service: Physical Therapy Author Type: Physical Therapist Type: Therapy (PT/OT/Speech/Resp) Filed: 08/09/2024 09:07 Note Text: -------- Summary: PT MV -------- PHYSICAL THERAPY MISSED VISIT SERVICE DATE: 08/09/2024 SERVICE TIME: 0900 ROOM: [place] [address] Patient not seen due to Refused Treatment. [...] DATE: August 09, 2024 TIME: 9:00 AM [facility] ANES POSTPROC EVALon 024 ANES POSTPROC EVAL HNO ID: [id number] Author: ISHAAN WALTERS MD Service: ? Author Type: Anesthesiologist Type: Anesthesia Postprocedure Evaluation Filed: 08/07/2024 16:46 Note Text: POST ANESTHESIA EVALUATION NOTE : 1955 Procedure Summary Date: 08/07/24 Room / Location: [place] [address] / [place] Anesthesia Start: 1251 Anesthesia Stop: 1422 [...] August 07, 2024 TIME: 4:46 PM CSN: [id number] [facility] ANES PRE-OPon 08-07-2024 ANES PRE-OP HNO ID: [id number] Author: ISHAAN WALTERS MD Service: ? Author Type: Anesthesiologist Type: Anesthesia Preprocedure Evaluation Filed: 08/07/2024 15:55 Note Text: ANESTHESIOLOGY DAY OF SURGERY NOTE : 1955 Procedure Information Anesthesia Start Date/Time: 08/07/24 1251 Procedure: REVERSE TOTAL SHOULDER ARTHROPLASTY (Left: Shoulder) Location: [place] OR / [place] OR Surgeons: Dominick Payton MD Estimated body [...] once bobby (more content not included)... Normal [facility] CONSULTon 08-07-2024 CONSULT HNO ID: [id number] Author: TALON BRITT MD Service: General Internal Medicine Author Type: Physician Type: Consults Filed: 08/09/2024 11:03 Note Text: [facility]- Consultation DIANNE ALVES Indu : 1955 AGE: 69 SEX: F ACCTNUM: [id number] [facility]: Surgical LOCATION: [facility] ATTENDING PHYSICIAN: DOMINICK PAYTON DATE OF SERVICE: [...] the hospital. Talon Britt M.D. Internal Medicine SKJ:[id number] [facility] HISTORY PHYSICALon HISTORY PHYSICAL HNO ID: [id number] Author: DOMINICK PAYTON MD Service: Orthopaedic Surgery Author Type: Physician Type: H&P Filed: 08/07/2024 12:48 Note Text: UPDATED HISTORY AND PHYSICAL EXAMINATION SERVICE DATE: 08/07/2024 SERVICE TIME: 12:48 PM SENSITIVE EXAMINATION CONSENT: The sensitive examination was discussed with the Patient or Patient's Authorized Structural Steel Erector. As applicable, any other physician, advance practice provider, medical student, or other health professional student that will be observing or involved in the sensitive examination for educational or training purposes was discussed with the Patient or Authorized Structural Steel Erector. The Patient or Authorized Structural Steel Erector has agreed to proceed with the sensitive [...] DATE: August 07, 2024 TIME: 12:48 PM [facility] NURSING PROGon 08-07-2024 NURSING PROG HNO ID: [id number] Author: GIA BOB RN Service: Nursing Author Type: Registered Nurse Type: Nursing Progress Note Filed: 08/07/2024 12:30 Note Text: Dr. Walters at bedside for Left interscalene nerve block. RN at bedside, pt monitored throughout, BP 152/80 Pulse 77 Temp 36.3 ?C (97.3 ?F) (Temporal Artery) Resp 18 SpO2 95% .Pt tolerated procedure without difficulty. 2mg versed given after sign in. [facility] OPERATIVE NOon 08-07-2024 OPERATIVE NO HNO ID: [id number] Author: DOMINICK PAYTON MD Service: Orthopaedic Surgery Author Type: Physician Type: Operative Report Filed: 08/07/2024 16:00 Note Text: OPERATIVE/PROCEDURE REPORT LOG ID: [id number] SURGERY/PROCEDURE DATE: 08/07/2024 INCISION/PROCEDURE START TIME: 1:23 PM INCISION CLOSE/PROCEDURE END TIME: 2:13 PM SURGEON(S)/PROCEDURALIST (S) AND HAND KISS SETTER(S): Surgeons and Role: * Dominick Payton MD - Primary Physician Supply Chain Manager: Ana Holder PA-C; Yue Franks PA-C SURGERY/PROCEDURE(S): [...] The humeral metaphysis was reamed using the humReelhouseckTravelTriangle reamer. Then the canal was sized and [...] placed and (more content not included)... Normal [facility] XR SHOULDER SPECIFY 1V LTon 08-07-2024 [...] as discussed in results portion of report Ict Analyst: VINCENT Transcribe Date/Time: Aug 07 2024 4:37P Dictated by : GELA ACMARGO DO This examination was interpreted and the report reviewed and electronically signed by: GELA CAMARGO DO on Aug 07 2024 4:38PM EST [id number] Normal [facility] CNOVon 07-31-2024 CNOV Normal [facility] ECG COMPLETEon 07-31-2024 ECG COMPLETE Normal [facility] CNOVon 07-29-2024 CNOV Normal [facility] CNPNon 07-27-2024 CNPN Normal [facility] CNPTOUTREACHon 07-24-2024 CNPTOUTREACH Normal [facility] CBC W Auto Differential pane l (Bld)on 07-22-2024 Basophils (Bld) [#/Vol] 0.04 10*3/uL Normal <0.11 [facility] Comment on above: Order Comment: Speci men Type: BLOOD SPECIMENOrdering Facility: [facility] Address: [address] [place] [address] Performed By: #### 5 7021-8 ####[facility] [id number] [place] [address] [place] Basophils/100 WBC (Bld) 0.7 % Normal [facility] Comment on above: Order Comment: Speci men Type: BLOOD SPECIMENOrdering Facility: [facility] Address: [address] [place] [address] Performed By: #### 5 7021-8 ####[facility] [id number] [place] [address] [place] Differential cell count method Nom (Bld) Auto Normal [facility] Comment on above: Order Comment: Speci men Type: BLOOD SPECIMENOrdering Facility: [facility] Address: [address] [place] [address] Performed By: #### 5 7021-8 ####[facility] [id number] [place] [address] [place] Eosinophils (Bld) [#/Vol] 0.18 10*3/uL Normal <0.46 [facility] Comment on above: Order Comment: Speci men Type: BLOOD SPECIMENOrdering Facility: [facility] Address: [address] [place] [address] Performed By: #### 5 7021-8 ####[facility] [id number] [place] [address] [place] Eosinophils/100 WBC (Bld) 3.3 % Normal [facility] Comment on above: Order Comment: Speci men Type: BLOOD SPECIMENOrdering Facility: [facility] Address: [address] [place] [address] Performed By: #### 5 7021-8 ####[facility]USL[facility] [id number] [place] [address] [place] Erythrocyte distribution width (RBC) [Ratio] 14.9 % Normal 11.5-15.0 [facility] Comment on above: Order Comment: Speci men Type: BLOOD SPECIMENOrdering Facility: [facility] Address: [address] [place] [address] Performed By: #### 5 7021-8 ####[facility] DORALWNCLIA [id number] [place] [address] [place] Hematocrit (Bld) [Volume fraction] 44.6 % Normal 36.0-46.0 [facility] Comment on above: Order Comment: Speci men Type: BLOOD SPECIMENOrdering Facility: [facility] Address: [address] [place] [address] Performed By: #### 5 7021-8 ####[facility]AMPUSLIA [id number] [place] [address] [place] Hemoglobin (Bld) [Mass/Vol] 14.6 g/dL Normal 11.5-15.5 [facility] Comment on above: Order Comment: Speci men Type: BLOOD SPECIMENOrdering Facility: [facility] Address: [address] [place] [address] Performed By: #### 5 7021-8 ####[facility] [id number] [place] [address] [place] Immature granulocytes (Bld) [#/Vol] 10*3/uL Normal <0.10 [facility] Comment on above: Order Comment: Speci men Type: BLOOD SPECIMENOrdering Facility: [facility] Address: [address] [place] [address] Performed By: #### 5 7021-8 ####[facility]AMPUSLIA [id number] [address] [place] Immature granulocytes/100 WBC (Bld) 0.0 % Normal [facility] Comment on above: Order Comment: Speci men Type: BLOOD SPECIMENOrdering Facility: [facility] Address: [address] [place] [address] Performed By: #### 5 7021-8 ####[facility]CL[facility] [id number] [place] [address] [place] Lymphocytes (Bld) [#/Vol] 1.64 10*3/uL Normal 1.00-4.00 [facility] Comment on above: Order Comment: Speci men Type: BLOOD SPECIMENOrdering Facility: [facility] Address: [address] [place] [address] Performed By: #### 5 7021-8 ####[facility] [id number] [place] [address] [place] Lymphocytes/100 WBC (Bld) 30.4 % Normal [facility] Comment on above: Order Comment: Speci men Type: BLOOD SPECIMENOrdering Facility: [facility] Address: [address] [place] [address] Performed By: #### 5 7021-8 ####[facility] [id number] [place] [address] [place] MCH (RBC) [Entitic mass] 29.6 pg Normal 26.0-34.0 [facility] Comment on above: Order Comment: Speci men Type: BLOOD SPECIMENOrdering Facility: [facility] Address: [address] [place] [address] Performed By: #### 5 7021-8 ####[facility] [id number] [place] [address] [place] MCHC (RBC) [Mass/Vol] 32.7 g/dL Normal 30.5-36.0 [facility] Comment on above: Order Comment: Speci men Type: BLOOD SPECIMENOrdering Facility: [facility] Address: [address] [place] [address] Performed By: #### 5 7021-8 ####[facility]ENNCLI [id number] [place] [address] [place] MCV (RBC) [Entitic vol] 90.5 fL Normal 80.0-100.0 [facility] Comment on above: Order Comment: Speci men Type: BLOOD SPECIMENOrdering Facility: [facility] Address: [address] [place] [address] Performed By: #### 5 7021-8 ####[facility] TASHBEVERLY [id number] [place] [address] [place] Monocytes (Bld) [#/Vol] 0.27 10*3/uL Normal <0.87 [facility] Comment on above: Order Comment: Speci men Type: BLOOD SPECIMENOrdering Facility: [facility] Address: [address] [place] [address] Performed By: #### 5 7021-8 ####[facility] [id number] [place] [address] [place] Monocytes/100 WBC (Bld) 5.0 % Normal [facility] Comment on above: Order Comment: Speci men Type: BLOOD SPECIMENOrdering Facility: [facility] Address: [address] [place] [address] Performed By: #### 5 7021-8 ####[facility]ENNCA [id number] [place] [address] [place] Neutrophils (Bld) [#/Vol] 3.26 10*3/uL Normal 1.45-7.50 [facility] Comment on above: Order Comment: Speci men Type: BLOOD SPECIMENOrdering Facility: [facility] Address: [address] [place] [address] Performed By: #### 5 7021-8 ####[facility]CL[facility] [id number] [place] [address] [place] Neutrophils/100 WBC (Bld) 60.6 % Normal [facility] Comment on above: Order Comment: Speci men Type: BLOOD SPECIMENOrdering Facility: [facility] Address: [address] [place] [address] Performed By: #### 5 7021-8 ####[facility] DORALWKARYNLIA [id number] [place] [address] [place] Nucleated RBC (Bld) [#/Vol] 10*3/uL Normal <0.01 [facility] Comment on above: Order Comment: Speci men Type: BLOOD SPECIMENOrdering Facility: [facility] Address: [address] [place] [address] Performed By: #### 5 7021-8 ####[facility]USLIA [id number] [place] [address] [place] Nucleated RBC/100 WBC (Bld) [Ratio] 0.0 /100 WBC Normal [facility] Comment on above: Order Comment: Speci men Type: BLOOD SPECIMENOrdering Facility: [facility] Address: [address] [place] [address] Performed By: #### 5 7021-8 ####[facility] [id number] [place] [address] [place] Platelet mean volume (Bld) [Entitic vol] 10.4 fL Normal 9.0-12.7 [facility] Comment on above: Order Comment: Speci men Type: BLOOD SPECIMENOrdering Facility: [facility] Address: [address] [place] [address] Performed By: #### 5 7021-8 ####[facility]USLIA [id number] [place] [address] [place] Platelets (Bld) [#/Vol] 236 10*3/uL Normal 150-400 [facility] Comment on above: Order Comment: Speci men Type: BLOOD SPECIMENOrdering Facility: [facility] Address: [address] [place] [address] Performed By: #### 5 7021-8 ####[facility]CL[facility] [id number] [place] [address] [place] RBC (Bld) [#/Vol] 4.93 10*6/uL Normal 3.90-5.20 [facility] Comment on above: Order Comment: Speci men Type: BLOOD SPECIMENOrdering Facility: [facility] Address: [address] [place] [address] Performed By: #### 5 7021-8 ####[facility] [id number] [place] [address] [place] WBC (Bld) [#/Vol] 5.39 10*3/uL Normal 3.70-11.00 [facility] Comment on above: Order Comment: Speci men Type: BLOOD SPECIMENOrdering Facility: [facility] Address: [address] [place] [address] Performed By: #### 5 7021-8 ####[facility] [id number] [place] [address] [place] Comprehensive metabolic 2000 panelon 07-22-2024 Albumin [Mass/Vol] 4.3 g/dL Normal 3.9-4.9 [facility] Comment on above: Order Comment: Speci men Type: BLOOD SPECIMENOrdering Facility: [facility] Address: [address] [place] [address] Performed By: #### 2 4323-8 ####[facility] LABCLIA [id number] [place] [address] [place] ALP [Catalytic activity/Vol] 87 U/L Normal 34-123 [facility] Comment on above: Order Comment: Speci men Type: BLOOD SPECIMENOrdering Facility: [facility] Address: [address] [place] [address] Performed By: #### 2 4323-8 ####[facility] LABCLIA [id number] [place] [address] [place] ALT [Catalytic activity/Vol] 10 U/L Normal 7-38 [facility] Comment on above: Order Comment: Speci men Type: BLOOD SPECIMENOrdering Facility: [facility] Address: [address] [place] [address] Performed By: #### 2 4323-8 ####[facility] LABCLIA [id number] [place] [address] [place] Anion gap [Moles/Vol] 13 mmol/L Normal 8-15 [facility] Comment on above: Order Comment: Speci men Type: BLOOD SPECIMENOrdering Facility: [facility] Address: [address] [place] [address] Performed By: #### 2 4323-8 ####[facility] LABCLIA [id number] [place] [address] [place] AST [Catalytic activity/Vol] 18 U/L Normal 13-35 [facility] Comment on above: Order Comment: Speci men Type: BLOOD SPECIMENOrdering Facility: [facility] Address: [address] [place] [address] Performed By: #### 2 4323-8 ####[facility] LABCLIA [id number] [place] [address] [place] Bilirubin [Mass/Vol] 0.5 mg/dL Normal 0.2-1.3 [facility] Comment on above: Order Comment: Speci men Type: BLOOD SPECIMENOrdering Facility: [facility] Address: [address] [place] [address] Performed By: #### 2 4323-8 ####[facility] LABCLIA [id number] [place] [address] [place] Calcium [Mass/Vol] 10.0 mg/dL Normal 8.5-10.2 [facility] Comment on above: Order Comment: Speci men Type: BLOOD SPECIMENOrdering Facility: [facility] Address: [address] [place] [address] Performed By: #### 2 4323-8 ####[facility] LABCLIA [id number] [place] [address] [place] Chloride [Moles/Vol] 103 mmol/L Normal 98-107 [facility] Comment on above: Order Comment: Speci men Type: BLOOD SPECIMENOrdering Facility: [facility] Address: [address] [place] [address] Performed By: #### 2 4323-8 ####[facility] LABCLIA [id number] [place] [address] [place] CO2 [Moles/Vol] 23 mmol/L Normal 22-30 [facility] Comment on above: Order Comment: Speci men Type: BLOOD SPECIMENOrdering Facility: [facility] Address: [address] [place] [address] Performed By: #### 2 4323-8 ####[facility] LABIA [id number] [place] [address] [place] Creatinine [Mass/Vol] 0.97 mg/dL High 0.58-0.96 [facility] Comment on above: Order Comment: Speci men Type: BLOOD SPECIMENOrdering Facility: [facility] Address: [address] [place] [address] Performed By: #### 2 4323-8 ####[facility] LABIA [id number] [address] [place] Creatinine and Glomerular filtration rate.predicted panel (S/P/Bld) 64 mL/min/1.73m??? Normal >=60 [facility] Comment on above: Order Comment: Speci men Type: BLOOD SPECIMENOrdering Facility: [facility] Address: [address] [place] [address] Result Comment: Sigrid mated Glomerular Filtration Rate [...] actual GFR. Performed By: #### 2 4323-8 ####[facility] LABIA [id number] [place] [address] [place] Glucose [Mass/Vol] 118 mg/dL High 74-99 [facility] Comment on above: Order Comment: Jalen men Type: BLOOD SPECIMENOrdering Facility: [facility] Address: [address] [place] [address] Result Comment: The [place] Diabetes Association (ADA) provides guidance for cutoff [...] Standards of Medical Care in Diabetes 2016, [employer]. Diabetes Care. 2016.39(Suppl 1). Performed By: #### 2 4323-8 ####[facility] LABIA [id number] [place] [address] [place] Potassium [Moles/Vol] 4.3 mmol/L Normal 3.7-5.1 [facility] Comment on above: Order Comment: Wmi men Type: BLOOD SPECIMENOrdering Facility: [facility] Address: [address] [place] [address] Performed By: #### 2 4323-8 ####[facility] LABIA [id number] [place] [address] [place] Protein [Mass/Vol] 7.1 g/dL Normal 6.3-8.0 [facility] Comment on above: Order Comment: Jalen men Type: BLOOD SPECIMENOrdering Facility: [facility] Address: [address] [place] [address] Performed By: #### 2 4323-8 ####[facility] LABCLIA [id number] [place] [address] [place] Sodium [Moles/Vol] 139 mmol/L Normal 136-144 [facility] Comment on above: Order Comment: Speci men Type: BLOOD SPECIMENOrdering Facility: [facility] Address: [address] [place] [address] Performed By: #### 2 4323-8 ####[facility] LABCLIA [id number] [place] [address] [place] Urea nitrogen [Mass/Vol] 14 mg/dL Normal 7-21 [facility] Comment on above: Order Comment: Speci men Type: BLOOD SPECIMENOrdering Facility: [facility] Address: [address] [place] [address] Performed By: #### 2 4323-8 ####[facility] LABCLIA [id number] [place] [address] [place] HISTORY PHYSICALon HISTORY PHYSICAL Normal [facility] T3 SerPl-mCncon 07-22-2024 T3 [Mass/Vol] 95 ng/dL Normal 79-165 [facility] Comment on above: Order Comment: Speci men Type: BLOOD SPECIMENOrdering Facility: [facility] Address: [address] [place] [address] Performed By: #### 3 024-7, 3053-6, 3016-3 ####[facility] LABIA [id number] [place] [address] [place] T4 Free SerPl-mCncon 024 Free T4 [Mass/Vol] 1.3 ng/dL Normal 0.9-1.7 [facility] Comment on above: Order Comment: Speci men Type: BLOOD SPECIMENOrdering Facility: [facility] Address: [address] [place] [address] Performed By: #### 3 024-7, 3053-6, 3016-3 ####[facility] LABCLIA [id number] [place] [address] [place] TSH SerPl-aCncon 07-22-2024 TSH Qn 0.183 m[IU]/L Low 0.270-4.200 [facility] Comment on above: Order Comment: Speci men Type: BLOOD SPECIMENOrdering Facility: [facility] Address: [address] [place] [address] Performed By: #### 3 024-7, 3053-6, 3016-3 ####[facility] LABCLIA [id number] [address] [place] CNOVon 07-21-2024 CNOV Normal [facility] PVR ANK PRESS ARTEM VAS LABon 07-21-2024 PVR ANK PRESS ARTEM VAS LAB Normal [facility] CNCOon 06-24-2024 CNCO Letter Text Normal [facility] CNOVon 06-23-2024 CNOV Office Visit (AGHWW1 ) -------- DIANNE ALVES ([id number]) 1955 F Date Time Provider Department 06/23/24 [...] AND Elbow Surgeon Department of Orthopaedic Surgery [facility] Referring Provider: SELF [200] Allergies As [...] (more content not included)... Normal [facility] Colonoscopy Reporton 024 Colonoscopy Report [facility] Medical Records Department [address] [place] [address] Colonoscopy Report MR#: [id number] Acct: [id number] Name: DIANNE ALVES Rep #: [id number] : 1955 69 From: Stef Friend DO PCP: Dr. Leonie Peterson MD Status:[facility] Patient Name: Dianne Alves Procedure Date: 04/29/2024 [...] for surveillance. Procedure Code(s): --- Professional --- 98293, Colonoscopy, flexible; with removal of tumor(s), polyp(s), or other lesion(s) by snare technique 83968, 59, Colonoscopy, flexible; with biopsy, single or multiple CPT copyright 2021 [employer]. All rights reserved. The codes documented in this report are preliminary and upon channel man review may be revised to meet current compliance requirements. Stef Bennett DO 04/29/2024 11:15:46 AM This report has been signed electronically. Number of Addenda: 0 Note Initiated On: (more content not included)... Normal [facility] MR/POSTOP.Jay Jay 04-29-2024 MR/POSTOP.[facility] Medical Records Department [address] [place] [address] Anesthesia Postop Eval I 04/29/24 1115 MR#: [id number] Acct: [id number] Name: DIANNE ALVES Rep #: [id number] : 1955 69 From: Juancarlos Bernardo PCP: Dr. Leonie Peterson MD Status:REG SDC Y Race: AA Location: [place] [address] Anesthesia: Postop Eval I Current Vital Signs [...] Juancarlos Quinn Signature: Date CC: Signed Normal [facility] MR/LYEFKHJB1me 04-29-2024 [facility] Medical Records Department [address] [place] [address] Anesthesia Postop Eval II 04/29/24 1143 MR#: [id number] Acct: [id number] Name: DIANNE ALVES Rep #: [id number] : 1955 69 From: Robert Smith MD PCP: Dr. Leonie Peterson MD Status:REG [facility] Y Race: AA Location: [place] [address] Anesthesia Postop Eval I Sum Postop Eval [...] Robert Quinn Signature: Date CC: Signed Normal [facility] Surgery Specimen Level Keren 04-29-2024 Surgery Specimen Level IV Patient Age/Sex Location Account Attending Physician DIANNE ALVES 69/F EN [id number] Stef Bennett DO Specimen: [id number] Received: 04/29/24 Status: GREGORY Saldaña Num: [id number] Spec Type: COLON BX Subm Dr: Stef [...] cassette. AM/ 04/29/2024 TC:5 AM/ 04/29/2024 TC: CPT:05350q1 Patient Age/Sex Location Account Attending Physician DIANNE ALVES 69/F EN [id number] Stef Bennett DO Signed (signature on file) Dr. Chencho Barrientos DO 04/30/24 1134 Normal [facility] Comment on above: Performed By: #### P SABINE ####[facility] [address] [place], [place], [id number] Chema 03-24-2024 CNOV Office Visit (AGHWW1 ) -------- LONGDIANNE CASTREJON ([id number]) 1955 F Date Time Provider Department 03/24/24 [...] patient voiced understanding of these instructions. Dominick aPyton MD Shoulder AND Elbow Surgeon Department of Orthopaedic Surgery [facility] Referring Provider: SELF [200] Allergies As of Date: 03/24/2024 (No Known Allergies) Date Reviewed: 03/24/2024 Reviewed by: Lynne Peña LPN - Fully Assessed Reason for Visit: Follow Up [171] Pain [78] Injections [199] Primary Visit Diagnosis:Left shoulder pain, unspecified chronicity [M25.512] Other Visit Diagnosis:Failure of rotator cuff repair [M96.89] Order(s):Large Joint Arthro/Inj: L shoulder joint [NDQ090] Order #: [id number] [] bupivacaine (PF) 0.25 % (2.5 mg/mL) [...] pads 2-3x daily for urge incontinence - rfxotjybdf-jurxovpm-bwul oterol (BREZTRI) 160-9-4.8 mcg/actuation HFA aerosol inhaler [...] (more content not included)... Normal [facility] CNOVon 12-17-2023 CNOV Office Visit (AGHWW1 ) -------- DIANNE ALVES ([id number]) 1955 F Date Time Provider Department 12/17/23 [...] AND Elbow Surgeon Department of Orthopaedic Surgery [facility] Allergies As of Date: 12/17/2023 (No Known Allergies) Date Reviewed: 12/17/2023 Reviewed by: Shady Tamayo Tech - Fully Assessed Reason for Visit: Follow Up [171] Primary Visit Diagnosis:Failure of rotator cuff repair [M96.89] Other Visit Diagnosis:Left shoulder pain, unspecified chronicity [M25.512] Order(s):Large Joint Arthro/Inj: L shoulder joint [HZP126] Order #: [id number] [] bupivacaine (PF) 0.25 % (2.5 mg/mL) [...] mouth once daily. Take with food. - bluxenicml-qwrehayv-hoyh oterol (BREZTRI) 160-9-4.8 mcg/actuation HFA aerosol inhaler [...] (more content not included)... Normal [facility] Absolute lymphocyte countOrd ered By: Debbie Delgadillo on 11-21-2023 Lymphocytes Auto (Unsp spec) [#/Vol] 2.03 10*3/uL 0.83-4.51 [facility] Automated lymphocyte count a s percentage of total leukocytesOrdered By: Debbie Delgadillo on 11-21-2023 Lymphocytes/100 WBC Auto (Unsp spec) 26.8 % 19-41 [facility] Basophil percentageOrdered B y: Debbie Delgadillo on 11-21-2023 Basophil percentage 0-5 SEEN /hpf 0-5 [facility] Basophils/100 WBC (Bld) 0.5 % 0-1 [facility] Bilirubin [Mass/Vol] 0.70 mg/dL 0.20-1.00 [facility] Comment on above: For patients on eltr ombopag therapy, use of Dimension [place] TBIL is not recommended. Chloride [Moles/Vol] 112 mmol/L 98-107 [facility] Eosinophils/100 WBC (Bld) 0.5 % 0-5 [facility] Glucose [Mass/Vol] 97 mg/dL 74-106 [facility] Hemoglobin (Bld) [Mass/Vol] 15.8 g/dL 12.0-15.0 [facility] Monocytes/100 WBC (Bld) 7.3 % 0-10 [facility] Neutrophils (Bld) [#/Vol] 4.9 10*3/uL 2.0-7.7 [facility] Neutrophils/100 WBC (Bld) 64.6 % 47-70 [facility] Potassium [Moles/Vol] 4.0 mmol/L 3.5-5.1 [facility] Comment on above: Slight Hemolysis, Re sult may be falsely increased. Protein [Mass/Vol] 7.4 g/dL 6.4-8.2 [facility] Sodium [Moles/Vol] 138 mmol/L 136-145 [facility] WBC (Bld) [#/Vol] 7.6 10*3/uL 4.4-11.0 [facility] Bilirubin Test strip Ql (U)O rdered By: Debbie Delgadillo on 11-21-2023 Bilirubin Ql (U) Negative Negative [facility] Determination of erythrocyte mean corpuscular volume (MCV)Ordered By: Debbie Delgadillo on 11-21-2023 MCV (RBC) [Entitic vol] 88.4 fL 81-99 [facility] Direct bilirubinOrdered By: Debbie Delgadillo on 11-21-2023 Bilirubin.direct [Mass/Vol] 0.14 mg/dL 0.00-0.30 [facility] Erythrocyte distribution wid th ratioOrdered By: Debbie Delgadillo on 11-21-2023 Erythrocyte distribution width (RBC) [Ratio] 13.3 % 11.6-14.6 [facility] Erythrocyte distribution wid th standard deviationOrdered By: Debbie Delgadillo on 11-21-2023 Erythrocyte distribution width (RBC) [Entitic vol] 43.2 fL 35.1-43.9 [facility] Hematocrit Auto (Bld) [Volum e fraction]Ordered By: Debbie Delgadillo on 11-21-2023 Hematocrit (Bld) [Volume fraction] 49.6 % 37-47 [facility] Immature granulocytes/100 WB C Auto (Bld)Ordered By: Debbie Delgadillo on 11-21-2023 Immature granulocytes/100 WBC (Bld) 0.300 % 0.0-0.9 [facility] Comment on above: IG% - Immature Granu locytes (promyelocytes, myelocytes and metamyelocytes) > 1% indicates that a LEFT SHIFT is Present. Ketones Test strip Ql (U)Ord ered By: Debbie Delgadillo on 11-21-2023 Ketones Ql (U) 15 mg/dl Negative [facility] Laboratory - Chemistry and C hemistry - challengeOrdered By: Debbie Delgadillo on 11-21-2023 ALP [Catalytic activity/Vol] 88 U/L 45-117 [facility] ALT [Catalytic activity/Vol] 26 U/L 13-56 [facility] CO2 [Moles/Vol] 23.0 mmol/L 21.0-32.0 [facility] Globulin (S) [Mass/Vol] 3.7 g/dL 2.2-4.2 [facility] Urea nitrogen/Creatinine [Mass ratio] 19.4 mg/mg 10-20 [facility] Laboratory - Hematology and Cell countsOrdered By: Debbie Delgadillo on 11-21-2023 MCH (RBC) [Entitic mass] 28.2 pg 27.0-32.0 [facility] MCHC (RBC) [Mass/Vol] 31.9 g/dL 32-36 [facility] Nucleated RBC/100 WBC (Bld) [Ratio] 0 % 0-5 [facility] Platelet mean volume (Bld) [Entitic vol] 10.5 fL 6.2-12.0 [facility] Platelets (Bld) [#/Vol] 196 10*3/uL 150-450 [facility] Mucus LM Ql (Urine sed)Order ed By: Debbie Delgadillo on 11-21-2023 Mucus Ql (Urine sed) 0 SEEN /hpf [facility] Nitrite Test strip Ql (U)Ord ered By: Debbie Delgadillo on 11-21-2023 Nitrite Ql (U) Negative Negative [facility] No Panel InformationOrdered By: Debbie Delgadillo on 11-21-2023 Troponin I High Sensitivity 64 pg/mL 3.0-54.0 [facility] Comment on above: Please Note: New Fina t Units and Gender Specific Reference Ranges. For more information see Policy Stat Procedure [place] High Sensitivity Troponin (TNIH) and attachments. Urine RBC 0 SEEN /hpf 0-5 [facility] Estimated Creatinine Clearance Calc 64.92 ml/min [facility] Estimated GFR (MDRD) Amer 73 mL/min >60 [facility] Comment on above: GFR Calc Estimated GFR (MDRD) Non-Af Amer 60 mL/min >60 [facility] Comment on above: Non- GFR Calc Protein Test strip Ql (U)Ord ered By: Debbie Delgadillo on 11-21-2023 Protein Ql (U) 30 mg/dl Negative [facility] RBC Auto (Bld) [#/Vol]Ordere d By: Debbie Delgadillo on 11-21-2023 RBC (Bld) [#/Vol] 5.61 10*6/uL 4.2-5.4 [facility] Serum or plasma calcium margarita urement (mass/volume)Ordered By: Debbie Delgadillo on 11-21-2023 Calcium [Mass/Vol] 9.7 mg/dL 8.5-10.1 [facility] Serum or plasma creatinine m easurement (mass/volume)Ordered By: Debbie Delgadillo on 11-21-2023 Creatinine [Mass/Vol] 0.98 mg/dL 0.55-1.02 [facility] Comment on above: The validity of the calculated GFR & GFRAA in patients over 70 years has not been determined. Clinical correlation is essential. Serum or plasma urea nitroge n measurement (mass/volume)Ordered By: Debbie Delgadillo on 11-21-2023 Urea nitrogen [Mass/Vol] 19 mg/dL 7-18 [facility] Squamous epithelial cells de tection in urine sediment by light microscopyOrdered By: Debbie Delgadillo on 11-21-2023 Epithelial cells.squamous LM Ql (Urine sed) 0 SEEN /hpf 5-10 [facility] Thin prep Papanicolaou smear with manual screeningOrdered By: Debbie Delgadillo on 11-21-2023 Thin prep Papanicolaou smear with manual screening 3.7 g/dL 3.2-5.0 [facility] Thin prep Papanicolaou smear with manual screening 17 U/L 15-37 [facility] Comment on above: Slight Hemolysis, Re sult may be falsely increased. Thin prep Papanicolaou smear with manual screening 3 5-15 [facility] Urine blood detectionOrdered By: Debbie Delgadillo on 11-21-2023 RBC Ql (U) Negative Negative [facility] Urine clarityOrdered By: Milla Delgadillo on 11-21-2023 Clarity (U) Clear Clear [facility] Urine color determinationOrd ered By: Debbie Delgadillo on 11-21-2023 Color (U) Yellow Yellow [facility] Urine glucose detectionOrder ed By: Debbie Delgadillo on 11-21-2023 Glucose Ql (U) Normal mg/dl Normal [facility] Urine leukocyte esterase det ection by dipstickOrdered By: Debbie Delgadillo on 11-21-2023 Leukocyte esterase Test strip Ql (U) 25 /ul Negative [facility] Urine pHOrdered By: Debbie Delgadillo on 11-21-2023 pH (U) 6.0 [pH] 5.0 - 8.0 [facility] Urine sediment bacteria coun t by microscopy (number/high power field)Ordered By: Debbie Delgadillo on 11-21-2023 Bacteria LM.HPF (Urine sed) [#/Area] 0 /[HPF] None Seen [facility] Urine specific gravity measu rementOrdered By: Debbie Delgadillo on 11-21-2023 Specific gravity (U) [Rel density] 1.020 1.002-1.030 [facility] Urine urobilinogen measureme ntOrdered By: Debbie Delgadillo on 11-21-2023 Urobilinogen Ql (U) Normal mg/dl Normal [facility] CNOVon 11-05-2023 CNOV Office Visit (AGHWW1 ) -------- DIANNE ALVES ([id number]) 1955 F Date Time Provider Department 11/05/23 [...] AND Elbow Surgeon Department of Orthopaedic Surgery [facility] Lynne Peña LPN 11/13/2023 1:13 PM [...] [M19.212] Order(s):Large Joint Arthro/Inj: L shoulder joint [NYN711] Order #: [id number] [] bupivacaine (PF) 0.25 % (2.5 mg/mL) [...] (more content not included)... Normal [facility] Basophil percentageOrdered B y: Aquiles Jones on 08-13-2023 Chloride [Moles/Vol] 101 mmol/L 98-107 [facility] Glucose [Mass/Vol] 119 mg/dL 74-106 [facility] Comment on above: Fasting Glucose resu lt from 100 to 125 mg/dL suggests IMPAIRED HOMEOSTASIS per A.D.A. criteria. Potassium [Moles/Vol] 4.8 mmol/L 3.5-5.1 [facility] Sodium [Moles/Vol] 135 mmol/L 136-145 [facility] WBC (Bld) [#/Vol] 6.6 10*3/uL 4.4-11.0 [facility] Blood erythrocytes count (nu mber/volume)Ordered By: Aquiles Jones on 08-13-2023 RBC (Bld) [#/Vol] 4.61 10*6/uL 4.2-5.4 [facility] Blood hemoglobin measurement (mass/volume)Ordered By: Aquiles Jones on 08-13-2023 Hemoglobin (Bld) [Mass/Vol] 13.5 g/dL 12.0-15.0 [facility] Blood platelet mean volumeOr dered By: Aquiles Jones on 08-13-2023 Platelet mean volume (Bld) [Entitic vol] 10.8 fL 6.2-12.0 [facility] Determination of erythrocyte mean corpuscular volume (MCV)Ordered By: Aquiles Jones on 08-13-2023 MCV (RBC) [Entitic vol] 93.3 fL 81-99 [facility] Hematocrit Auto (Bld) [Volum e fraction]Ordered By: Aquiles Jones on 08-13-2023 Hematocrit (Bld) [Volume fraction] 43.0 % 37-47 [facility] Laboratory - Chemistry and C hemistry - challengeOrdered By: Aquiles Jones on 08-13-2023 CO2 [Moles/Vol] 27.0 mmol/L 21.0-32.0 [facility] Urea nitrogen/Creatinine [Mass ratio] 21.5 mg/mg 10-20 [facility] Laboratory - Hematology and Cell countsOrdered By: Aquiles Jones on 08-13-2023 Erythrocyte distribution width (RBC) [Entitic vol] 52.2 fL 35.1-43.9 [facility] Erythrocyte distribution width (RBC) [Ratio] 15.0 % 11.6-14.6 [facility] MCH (RBC) [Entitic mass] 29.3 pg 27.0-32.0 [facility] MCHC Auto (RBC) [Mass/Vol]Or dered By: Aquiles Jones on 08-13-2023 MCHC (RBC) [Mass/Vol] 31.4 g/dL 32-36 [facility] No Panel InformationOrdered By: Aquiles Jones on 08-13-2023 Estimated GFR (MDRD) Amer 57 mL/min >60 [facility] Comment on above: GFR Calc Estimated GFR (MDRD) Non-Af Amer 47 mL/min >60 [facility] Comment on above: Non- GFR Calc Platelets bldOrdered By: Erika Jones on 08-13-2023 Platelets (Bld) [#/Vol] 304 10*3/uL 150-450 [facility] Serum or plasma calcium margarita urement (mass/volume)Ordered By: Aquiles Jones on 08-13-2023 Calcium [Mass/Vol] 9.4 mg/dL 8.5-10.1 [facility] Serum or plasma creatinine m easurement (mass/volume)Ordered By: Aquiles Jones on 08-13-2023 Creatinine [Mass/Vol] 1.21 mg/dL 0.55-1.02 [facility] Comment on above: The validity of the calculated GFR & GFRAA in patients over 70 years has not been determined. Clinical correlation is essential. Serum or plasma urea nitroge n measurement (mass/volume)Ordered By: Aquiles Jones on 08-13-2023 Urea nitrogen [Mass/Vol] 26 mg/dL 7-18 [facility] Thin prep Papanicolaou smear with manual screeningOrdered By: Aquiles Jones on 08-13-2023 Thin prep Papanicolaou smear with manual screening 7 5-15 [facility] Basophil percentageOrdered B y: Shady Burris on 08-12-2023 Chloride [Moles/Vol] 102 mmol/L 98-107 [facility] Glucose [Mass/Vol] 148 mg/dL 74-106 [facility] Comment on above: Fasting Glucose resu lt greater than or equal to 126 mg/dL suggests DIABETES MELLITUS per A.D.A. criteria. Potassium [Moles/Vol] 5.1 mmol/L 3.5-5.1 [facility] Sodium [Moles/Vol] 138 mmol/L 136-145 [facility] Laboratory - Chemistry and C hemistry - challengeOrdered By: Sahdy Burris on 08-12-2023 CO2 [Moles/Vol] 31.0 mmol/L 21.0-32.0 [facility] Urea nitrogen/Creatinine [Mass ratio] 22.1 mg/mg 10-20 [facility] No Panel InformationOrdered By: Shady Burris on 08-12-2023 Estimated Creatinine Clearance Calc 37.58 ml/min [facility] Estimated GFR (MDRD) Amer 50 mL/min >60 [facility] Comment on above: GFR Calc Estimated GFR (MDRD) Non-Af Amer 41 mL/min >60 [facility] Comment on above: Non- GFR Calc Serum or plasma calcium margarita urement (mass/volume)Ordered By: Shady Burris on 08-12-2023 Calcium [Mass/Vol] 9.0 mg/dL 8.5-10.1 [facility] Serum or plasma creatinine m easurement (mass/volume)Ordered By: Shady Burris on 08-12-2023 Creatinine [Mass/Vol] 1.36 mg/dL 0.55-1.02 [facility] Comment on above: The validity of the calculated GFR & GFRAA in patients over 70 years has not been determined. Clinical correlation is essential. Serum or plasma urea nitroge n measurement (mass/volume)Ordered By: Shady Burris on 08-12-2023 Urea nitrogen [Mass/Vol] 30 mg/dL 7-18 [facility] Thin prep Papanicolaou smear with manual screeningOrdered By: Shady Burris on 08-12-2023 Thin prep Papanicolaou smear with manual screening 5 5-15 [facility] Absolute lymphocyte countOrd ered By: Julio Duong on 08-11-2023 Lymphocytes Auto (Unsp spec) [#/Vol] 2.50 10*3/uL 0.83-4.51 [facility] Basophil percentageOrdered B y: uJlio Duong on 08-11-2023 Basophils/100 WBC (Bld) 0.7 % 0-1 [facility] Eosinophils/100 WBC (Bld) 6.7 % 0-5 [facility] Neutrophils (Bld) [#/Vol] 2.3 10*3/uL 2.0-7.7 [facility] Neutrophils/100 WBC (Bld) 40.1 % 47-70 [facility] WBC (Bld) [#/Vol] 5.7 10*3/uL 4.4-11.0 [facility] Blood erythrocytes count (nu mber/volume)Ordered By: Julio Duong on 08-11-2023 RBC (Bld) [#/Vol] 4.50 10*6/uL 4.2-5.4 [facility] Blood hemoglobin measurement (mass/volume)Ordered By: Julio Duong on 08-11-2023 Hemoglobin (Bld) [Mass/Vol] 12.9 g/dL 12.0-15.0 [facility] Blood lymphocytes/100 leukoc ytesOrdered By: Julio Duong on 08-11-2023 Lymphocytes/100 WBC (Bld) 44.2 % 19-41 [facility] Blood monocytes/100 leukocyt esOrdered By: Julio Duong on 08-11-2023 Monocytes/100 WBC (Bld) 8.1 % 0-10 [facility] Blood platelet mean volumeOr dered By: Julio Duong on 08-11-2023 Platelet mean volume (Bld) [Entitic vol] 10.2 fL 6.2-12.0 [facility] Determination of erythrocyte mean corpuscular volume (MCV)Ordered By: Julio Duong on 08-11-2023 MCV (RBC) [Entitic vol] 91.8 fL 81-99 [facility] Hematocrit Auto (Bld) [Volum e fraction]Ordered By: Julio Duong on 08-11-2023 Hematocrit (Bld) [Volume fraction] 41.3 % 37-47 [facility] Laboratory - Hematology and Cell countsOrdered By: Julio Duong on 08-11-2023 Erythrocyte distribution width (RBC) [Entitic vol] 50.7 fL 35.1-43.9 [facility] Erythrocyte distribution width (RBC) [Ratio] 15.0 % 11.6-14.6 [facility] Immature granulocytes/100 WBC (Bld) 0.200 % 0.0-0.9 [facility] Comment on above: IG% - Immature Granu locytes (promyelocytes, myelocytes and metamyelocytes) > 1% indicates that a LEFT SHIFT is Present. MCH (RBC) [Entitic mass] 28.7 pg 27.0-32.0 [facility] Nucleated RBC/100 WBC (Bld) [Ratio] 0 % 0-5 [facility] MCHC Auto (RBC) [Mass/Vol]Or dered By: Julio Duong on 08-11-2023 MCHC (RBC) [Mass/Vol] 31.2 g/dL 32-36 [facility] Platelets bldOrdered By: Conchis Duong on 08-11-2023 Platelets (Bld) [#/Vol] 268 10*3/uL 150-450 [facility] Basophil percentageOrdered B y: Miguelina Castanon on 08-06-2023 Bilirubin [Mass/Vol] 0.30 mg/dL 0.20-1.00 [facility] Comment on above: For patients on eltr ombopag therapy, use of Dimension [place] TBIL is not recommended. Cholesterol [Mass/Vol] 131 mg/dL <200 [facility] Comment on above: <200 mg/dL Desirable 200-240 mg/dL Borderline >240 mg/dL High Risk Protein [Mass/Vol] 6.2 g/dL 6.4-8.2 [facility] Triglyceride [Mass/Vol] 108 mg/dL <199 [facility] Comment on above: The drugs N-Acetylcy steine and Metamizole may falsely depress this assay.Serum Triglycerides Reference Interval Normal <150 mg/dL Borderline high 150 - 199 mg/dL High 200 - 499 mg/dL Very High > or = 500 mg/dL Laboratory - Chemistry and C hemistry - challengeOrdered By: Miguelina Castanon on 08-06-2023 ALP [Catalytic activity/Vol] 77 U/L 45-117 [facility] ALT [Catalytic activity/Vol] 20 U/L 13-56 [facility] Globulin (S) [Mass/Vol] 3.4 g/dL 2.2-4.2 [facility] Serum or plasma albumin margarita urement (mass/volume)Ordered By: Miguelina Castanon on 08-06-2023 Albumin [Mass/Vol] 2.8 g/dL 3.2-5.0 [facility] Serum or plasma albumin/glob ulin mass ratioOrdered By: Miguelina Castanon on 08-06-2023 Albumin/Globulin [Mass ratio] 0.8 {ratio} 0.9-2.4 [facility] Serum or plasma cholesterol in HDL measurement (mass/volume)Ordered By: Miguelina Castanon on 08-06-2023 Cholesterol in HDL [Mass/Vol] 46 mg/dL >40 [facility] Comment on above: The drugs N-Acetylcy steine and Metamizole may falsely depress this assay. Reference Range HDL <40 mg/dL Low HDL Cholesterol HDL >or= 60 mg/dL High HDL Cholesterol Serum or plasma cholesterol in VLDL measurement (mass/volume)Ordered By: Miguelina Castanon on 08-06-2023 Cholesterol in VLDL [Mass/Vol] 22 mg/dL 5-40 [facility] Serum or plasma low density lipoprotein (LDL) cholesterol measurement (mass/volume)Ordered By: Miguelina Castanon on 08-06-2023 Cholesterol in LDL [Mass/Vol] 63 mg/dL 0-130 [facility] Thin prep Papanicolaou smear with manual screeningOrdered By: Miguelina Castanon on 08-06-2023 Thin prep Papanicolaou smear with manual screening 14 U/L 15-37 [facility] Absolute lymphocyte countOrd ered By: Castro Lane on 08-05-2023 Lymphocytes Auto (Unsp spec) [#/Vol] 2.38 10*3/uL 0.83-4.51 [facility] Basophil percentageOrdered B y: Castro Lane on 08-05-2023 Basophils/100 WBC (Bld) 0.6 % 0-1 [facility] Chloride [Moles/Vol] 103 mmol/L 98-107 [facility] Eosinophils/100 WBC (Bld) 5.7 % 0-5 [facility] Glucose [Mass/Vol] 115 mg/dL 74-106 [facility] Comment on above: Fasting Glucose resu lt from 100 to 125 mg/dL suggests IMPAIRED HOMEOSTASIS per A.D.A. criteria. Neutrophils (Bld) [#/Vol] 3.1 10*3/uL 2.0-7.7 [facility] Neutrophils/100 WBC (Bld) 48.3 % 47-70 [facility] Potassium [Moles/Vol] 5.2 mmol/L 3.5-5.1 [facility] Sodium [Moles/Vol] 137 mmol/L 136-145 [facility] WBC (Bld) [#/Vol] 6.3 10*3/uL 4.4-11.0 [facility] Blood erythrocytes count (nu mber/volume)Ordered By: Castro Lane on 08-05-2023 RBC (Bld) [#/Vol] 4.69 10*6/uL 4.2-5.4 [facility] Blood hemoglobin measurement (mass/volume)Ordered By: Castro Lane on 08-05-2023 Hemoglobin (Bld) [Mass/Vol] 13.4 g/dL 12.0-15.0 [facility] Blood lymphocytes/100 leukoc ytesOrdered By: Castro Lane on 08-05-2023 Lymphocytes/100 WBC (Bld) 37.6 % 19-41 [facility] Blood monocytes/100 leukocyt esOrdered By: Castro [address] on 08-05-2023 Monocytes/100 WBC (Bld) 7.6 % 0-10 [facility] Blood platelet mean volumeOr dered By: Castro Lane on 08-05-2023 Platelet mean volume (Bld) [Entitic vol] 10.5 fL 6.2-12.0 [facility] Determination of erythrocyte mean corpuscular volume (MCV)Ordered By: Castro Lane on 08-05-2023 MCV (RBC) [Entitic vol] 94.9 fL 81-99 [facility] Hematocrit Auto (Bld) [Volum e fraction]Ordered By: Castro Lane on 08-05-2023 Hematocrit (Bld) [Volume fraction] 44.5 % 37-47 [facility] Laboratory - Chemistry and C hemistry - challengeOrdered By: Miguelina Castanon on 08-05-2023 Magnesium [Mass/Vol] 2.6 mg/dL 1.6-2.6 [facility] Laboratory - Chemistry and C hemistry - challengeOrdered By: Castro Lane on 08-05-2023 CO2 [Moles/Vol] 30.0 mmol/L 21.0-32.0 [facility] Natriuretic peptide B (Bld) [Mass/Vol] 7.2 pg/mL 0-100 [facility] Urea nitrogen/Creatinine [Mass ratio] 21.5 mg/mg 10-20 [facility] Laboratory - Drug toxicology Ordered By: Castro Lane on 08-05-2023 Amphetamines Ql (U) Negative <1000 ng/mL [facility] Benzodiazepines Ql (U) Negative < 200 ng/mL [facility] Cannabinoids Screen Ql (U) Negative < 50 ng/mL [facility] Cocaine Ql (U) Negative < 300 ng/mL [facility] Opiates Ql (U) Positive < 300 ng/mL [facility] Laboratory - Hematology and Cell countsOrdered By: Castro Lane on 08-05-2023 Erythrocyte distribution width (RBC) [Entitic vol] 54.4 fL 35.1-43.9 [facility] Erythrocyte distribution width (RBC) [Ratio] 15.6 % 11.6-14.6 [facility] Immature granulocytes/100 WBC (Bld) 0.200 % 0.0-0.9 [facility] Comment on above: IG% - Immature Granu locytes (promyelocytes, myelocytes and metamyelocytes) > 1% indicates that a LEFT SHIFT is Present. MCH (RBC) [Entitic mass] 28.6 pg 27.0-32.0 [facility] Nucleated RBC/100 WBC (Bld) [Ratio] 0 % 0-5 [facility] MCHC Auto (RBC) [Mass/Vol]Or dered By: Castro Lane on 08-05-2023 MCHC (RBC) [Mass/Vol] 30.1 g/dL 32-36 [facility] No Panel InformationOrdered By: Miguelina Castanon on 08-05-2023 Troponin I High Sensitivity 64 pg/mL 3.0-54.0 [facility] Comment on above: Please Note: New Fina t Units and Gender Specific Reference Ranges. For more information see Policy Stat Procedure [place] High Sensitivity Troponin (TNIH) and attachments. No Panel InformationOrdered By: Woodrow Cardenas on 08-05-2023 D-Dimer Quantitative (PE/DVT) 9.13 FEU/ug/m 0.27-0.49 [facility] Comment on above: D-Dimer ELEVATED (>0 .49): Additional studies and clinicalassessments are indicated to conclude diagnosis of:Deep Vein Thrombosis (DVT) or Pulmonary Embolism (PE)CRITICAL VALUE VERIFIED. CALLED TO ROSALINDA MONTANO ([facility])08/05/23 0920 Niles Mendoza.RESULTS READ BACK BY SAME. No Panel InformationOrdered By: Castro Lane on 08-05-2023 MDMA (Ecstasy) Screen Negative < 500 ng/mL [facility] Urine Barbiturates Screen Negative < 200 ng/mL [facility] Urine Drug Screen Comment [facility] Comment on above: CONFIRMATORY TESTING FOR ALL [...] Methadone Screen Negative < 300 ng/mL [facility] Estimated Creatinine Clearance Calc 39.31 ml/min [facility] Estimated GFR (MDRD) Amer 53 mL/min >60 [facility] Comment on above: GFR Calc Estimated GFR (MDRD) Non-Af Amer 43 mL/min >60 [facility] Comment on above: Non- GFR Calc Troponin I High Sensitivity 73 pg/mL 3.0-54.0 [facility] Comment on above: Please Note: New Fina t Units and Gender Specific Reference Ranges. For more information see Policy Stat Procedure [place] High Sensitivity Troponin (TNIH) and attachments. Platelets bldOrdered By: Temo Lane on 08-05-2023 Platelets (Bld) [#/Vol] 244 10*3/uL 150-450 [facility] Serum or plasma calcium margarita urement (mass/volume)Ordered By: Castro Lane on 08-05-2023 Calcium [Mass/Vol] 9.2 mg/dL 8.5-10.1 [facility] Serum or plasma creatinine m easurement (mass/volume)Ordered By: Castro Lane on 08-05-2023 Creatinine [Mass/Vol] 1.30 mg/dL 0.55-1.02 [facility] Comment on above: The validity of the calculated GFR & GFRAA in patients over 70 years has not been determined. Clinical correlation is essential. Serum or plasma urea nitroge n measurement (mass/volume)Ordered By: Castro Lane on 08-05-2023 Urea nitrogen [Mass/Vol] 28 mg/dL 7-18 [facility] Thin prep Papanicolaou smear with manual screeningOrdered By: Castro Lane on 08-05-2023 Thin prep Papanicolaou smear with manual screening 4 5-15 [facility] Urine phencyclidine (PCP) de tectionOrdered By: Castro Lane on 08-05-2023 Phencyclidine Ql (U) Negative < 25 ng/mL [facility] Absolute lymphocyte countOrd ered By: Stef Bennett on 01-14-2023 Lymphocytes Auto (Unsp spec) [#/Vol] 1.72 10*3/uL 0.83-4.51 [facility] Basophil percentageOrdered B y: Stef Bennett on 01-14-2023 Ammonia (P) [Moles/Vol] 15.0 umol/L 11-32 [facility] Basophil percentage < 0.2 AI 0.0-0.9 [facility] Basophils/100 WBC (Bld) 0.3 % 0-1 [facility] Bilirubin [Mass/Vol] 0.40 mg/dL 0.20-1.00 [facility] Comment on above: For patients on eltr ombopag therapy, use of Dimension [place] TBIL is not recommended. Chloride [Moles/Vol] 109 mmol/L 98-[address] [facility] Eosinophils/100 WBC (Bld) 4.0 % 0-5 [facility] Glucose [Mass/Vol] 146 mg/dL 74-106 [facility] Comment on above: Fasting Glucose resu lt greater than or equal to 126 mg/dL suggests DIABETES MELLITUS per A.D.A. criteria. LDH [Catalytic activity/Vol] 213 U/L 84-246 [facility] Neutrophils (Bld) [#/Vol] 3.7 10*3/uL 2.0-7.7 [facility] Neutrophils/100 WBC (Bld) 61.6 % 47-70 [facility] Potassium [Moles/Vol] 3.9 mmol/L 3.5-5.1 [facility] Protein [Mass/Vol] 7.3 g/dL 6.4-8.2 [facility] Sodium [Moles/Vol] 139 mmol/L 136-145 [facility] WBC (Bld) [#/Vol] 6.0 10*3/uL 4.4-11.0 [facility] Blood erythrocytes count (nu mber/volume)Ordered By: Stef Bennett on 01-14-2023 RBC (Bld) [#/Vol] 5.03 10*6/uL 4.2-5.4 [facility] Blood hemoglobin measurement (mass/volume)Ordered By: Stef Bennett on 01-14-2023 Hemoglobin (Bld) [Mass/Vol] 14.6 g/dL 12.0-15.0 [facility] Blood lymphocytes/100 leukoc ytesOrdered By: Stef Bennett on 01-14-2023 Lymphocytes/100 WBC (Bld) 28.6 % 19-41 [facility] Blood monocytes/100 leukocyt esOrdered By: Stfe Bennett on 01-14-2023 Monocytes/100 WBC (Bld) 5.5 % 0-10 [facility] Blood platelet mean volumeOr dered By: Stef Bennett on 01-14-2023 Platelet mean volume (Bld) [Entitic vol] 10.3 fL 6.2-12.0 [facility] Determination of erythrocyte mean corpuscular volume (MCV)Ordered By: Stef Bennett on 01-14-2023 MCV (RBC) [Entitic vol] 89.3 fL 81-99 [facility] Erythrocyte sedimentation ra teOrdered By: Stef Bennett on 01-14-2023 ESR (Bld) [Velocity] 19 mm/h 0-30 [facility] HIV 1 and HIV-2 antibody ass ay with HIV-1 p24 antigen detectionOrdered By: Stef Bennett on 01-14-2023 HIV 1+2 Ab+HIV1 p24 Ag IA Ql Non-Reactive Nonreactive [facility] Hematocrit Auto (Bld) [Volum e fraction]Ordered By: Stef Bennett on 01-14-2023 Hematocrit (Bld) [Volume fraction] 44.9 % 37-47 [facility] INR in Blood by Coagulation assayOrdered By: Stef Bennett on 01-14-2023 INR Coag (Bld) [Relative time] 1.1 {INR} [facility] Laboratory - Chemistry and C hemistry - challengeOrdered By: Stef Bennett on 01-14-2023 ALP [Catalytic activity/Vol] 94 U/L 45-117 [facility] ALT [Catalytic activity/Vol] 24 U/L 13-56 [facility] CO2 [Moles/Vol] 23.0 mmol/L 21.0-32.0 [facility] Globulin (S) [Mass/Vol] 3.3 g/dL 2.2-4.2 [facility] Urea nitrogen/Creatinine [Mass ratio] 19.2 mg/mg 10-20 [facility] Laboratory - CoagulationOrde red By: Stef Bennett on 01-14-2023 PT Coag (PPP) [Time] 14.2 s 11.7-14.9 [facility] Laboratory - Hematology and Cell countsOrdered By: Stef Bennett on 01-14-2023 Erythrocyte distribution width (RBC) [Entitic vol] 46.4 fL 35.1-43.9 [facility] Erythrocyte distribution width (RBC) [Ratio] 14.1 % 11.6-14.6 [facility] Immature granulocytes/100 WBC (Bld) 0.000 % 0.0-0.9 [facility] Comment on above: IG% - Immature Granu locytes (promyelocytes, myelocytes and metamyelocytes) > 1% indicates that a LEFT SHIFT is Present. MCH (RBC) [Entitic mass] 29.0 pg 27.0-32.0 [facility] Nucleated RBC/100 WBC (Bld) [Ratio] 0 % 0-5 [facility] MCHC Auto (RBC) [Mass/Vol]Or dered By: Stef Friend on 01-14-2023 MCHC (RBC) [Mass/Vol] 32.5 g/dL 32-36 [facility] No Panel InformationOrdered By: Stef Friend on 01-14-2023 Centromere B Antibody <0.2 AI 0.0-0.9 [facility] Estimated GFR (MDRD) Amer 68 mL/min >60 [facility] Comment on above: GFR Calc Estimated GFR (MDRD) Non-Af Amer 56 mL/min >60 [facility] Comment on above: Non- GFR Calc Hepatitis C Antibody Reactive Nonreactive [facility] Comment on above: Previous reported re sult: Preliminary Reactive Edited by: TIMO on 01/15/23:0728 AMENDED REPORT 01/15/23 0728 HEPATITIS C AB previously reported as: Preliminary Reactive Non Reactive: < 0.8 Equivocal: >/= 0.8 to < 1.0 Reactive: >/= 1.0The CDC recommends that a reactive/equivocal HCV antibody result be followed up by the HCV Nucleic Acid Amplificationtest (661980) Miscellaneous Test See comment [facility] Comment on above: TEST RESULTS LIMITSH CV RNA Diagnosis, NAAHCV RNA, Quantitation HCV Not Detected IU/mLNo evidence of active HCV infection.Test Information: The quantitative range of this assay is 15 IU/mL to 100 million IU/mL. TESTING PERFORMED AT [facility]. ORIGINAL REPORT ON FILE IN LAB CONTAINS ADDITIONAL TEST SITE INFORMATION. SENIOR SYSTEMS DEVELOPER Antibody <0.2 AI 0.0-0.9 [facility] Platelets bldOrdered By: Pedro Bennett on 01-14-2023 Platelets (Bld) [#/Vol] 244 10*3/uL 150-450 [facility] Serum DNA double strand anti body assay (units/volume)Ordered By: Stef Bennett on 01-14-2023 DNA double strand Ab Qn (S) 3 [IU]/mL 0-9 [facility] Comment on above: Negative <5 Equivoca l 5 - 9 Positive >9 Serum Tia-1 antibody assay (u nits/volume)Ordered By: Stef Bennett on 01-14-2023 Tia-1 extractable nuclear Ab Qn (S) <0.2 AI 0.0-0.9 [facility] Serum Scl-70 extractable nuc lear antibody assay (units/volume)Ordered By: Stef Bennett on 01-14-2023 SCL-70 extractable nuclear Ab Qn (S) <0.2 AI 0.0-0.9 [facility] Serum Farah extractable nucl ear antibody detectionOrdered By: Stef Bennett on 01-14-2023 Farah extractable nuclear Ab Ql (S) <0.2 AI 0.0-0.9 [facility] Serum mitochondria antibody detectionOrdered By: Stef Bennett on 01-14-2023 Mitochondria Ab Ql (S) <20.0 Units 0.0-20.0 [facility] Comment on above: Negative 0.0 - 20.0 Equivocal 20.1 - 24.9 Positive >24.9Mitochondrial (M2) Antibodies are found in 90-96% ofpatients with primary biliary cirrhosis.Performed at: - [address] [id number] Director: Curry Andrews PhD, Phone: [phone] Serum or plasma C reactive p rotein measurement (mass/volume)Ordered By: Stef Bennett on 01-14-2023 CRP [Mass/Vol] mg/L 0.0-3.0 [facility] Comment on above: C-Reactive Protein ( CRP) provides useful information for thediagnosis, therapy and monitoring of inflammatory processesand associated diseases. For the evaluation of Relative Riskfor Cardiovascular Disease, a High Sensitivity CRP (HSCRP)should be ordered. Serum or plasma albumin margarita urement (mass/volume)Ordered By: Stef Bennett on 01-14-2023 Albumin [Mass/Vol] 4.0 g/dL 3.2-5.0 [facility] Serum or plasma albumin/glob ulin mass ratioOrdered By: Stef Bennett on 01-14-2023 Albumin/Globulin [Mass ratio] 1.2 {ratio} 0.9-2.4 [facility] Serum or plasma calcium margarita urement (mass/volume)Ordered By: Stef Bennett on 01-14-2023 Calcium [Mass/Vol] 9.2 mg/dL 8.5-10.1 [facility] Serum or plasma creatinine m easurement (mass/volume)Ordered By: Stef Bennett on 01-14-2023 Creatinine [Mass/Vol] 1.04 mg/dL 0.55-1.02 [facility] Comment on above: The validity of the calculated GFR & GFRAA in patients over 70 years has not been determined. Clinical correlation is essential. Serum or plasma ferritin joseph surement (mass/volume)Ordered By: Stef Bennett on 01-14-2023 Ferritin [Mass/Vol] 67 ng/mL 8-252 [facility] Serum or plasma urea nitroge n measurement (mass/volume)Ordered By: Stef Bennett on 01-14-2023 Urea nitrogen [Mass/Vol] 20 mg/dL 7-18 [facility] Thin prep Papanicolaou smear with manual screeningOrdered By: Stef Bennett on 01-14-2023 Thin prep Papanicolaou smear with manual screening 21 U/L 15-37 [facility] Thin prep Papanicolaou smear with manual screening 7 5-15 [facility] Absolute lymphocyte countOrd ered By: Dr. Kingsley on 10-22-2022 Lymphocytes Auto (Unsp spec) [#/Vol] 2.52 10*3/uL 0.83-4.51 [facility] Basophil percentageOrdered B y: Dr. Kingsley on 10-22-2022 Basophils/100 WBC (Bld) 0.5 % 0-1 [facility] Chloride [Moles/Vol] 110 mmol/L 98-107 [facility] Eosinophils/100 WBC (Bld) 5.9 % 0-5 [facility] Glucose [Mass/Vol] 96 mg/dL 74-106 [facility] Neutrophils (Bld) [#/Vol] 2.9 10*3/uL 2.0-7.7 [facility] Neutrophils/100 WBC (Bld) 46.3 % 47-70 [facility] Potassium [Moles/Vol] 5.4 mmol/L 3.5-5.1 [facility] Comment on above: Moderate Hemolysis, Result may be falsely increased. Sodium [Moles/Vol] 138 mmol/L 136-145 [facility] WBC (Bld) [#/Vol] 6.3 10*3/uL 4.4-11.0 [facility] Blood erythrocytes count (nu mber/volume)Ordered By: Dr. Kingsley on 10-22-2022 RBC (Bld) [#/Vol] 4.77 10*6/uL 4.2-5.4 [facility] Blood hemoglobin measurement (mass/volume)Ordered By: Dr. Kingsley on 10-22-2022 Hemoglobin (Bld) [Mass/Vol] 14.1 g/dL 12.0-15.0 [facility] Blood lymphocytes/100 leukoc ytesOrdered By: Dr. Kingsley on 10-22-2022 Lymphocytes/100 WBC (Bld) 40.1 % 19-41 [facility] Blood monocytes/100 leukocyt esOrdered By: Dr. Kingsley on 10-22-2022 Monocytes/100 WBC (Bld) 7.0 % 0-10 [facility] Blood platelet mean volumeOr dered By: Dr. Kingsley on 10-22-2022 Platelet mean volume (Bld) [Entitic vol] 10.1 fL 6.2-12.0 [facility] Determination of erythrocyte mean corpuscular volume (MCV)Ordered By: Dr. Kingsley on 10-22-2022 MCV (RBC) [Entitic vol] 90.4 fL 81-99 [facility] Hematocrit Auto (Bld) [Volum e fraction]Ordered By: Dr. Kingsley on 10-22-2022 Hematocrit (Bld) [Volume fraction] 43.1 % 37-47 [facility] Laboratory - Chemistry and C hemistry - challengeOrdered By: Dr. Kingsley on 10-22-2022 CO2 [Moles/Vol] 22.0 mmol/L 21.0-32.0 [facility] Urea nitrogen/Creatinine [Mass ratio] 17.0 mg/mg 10-20 [facility] Laboratory - Hematology and Cell countsOrdered By: Dr. Kingsley on 10-22-2022 Erythrocyte distribution width (RBC) [Entitic vol] 45.9 fL 35.1-43.9 [facility] Erythrocyte distribution width (RBC) [Ratio] 13.9 % 11.6-14.6 [facility] Immature granulocytes/100 WBC (Bld) 0.200 % 0.0-0.9 [facility] Comment on above: IG% - Immature Granu locytes (promyelocytes, myelocytes and metamyelocytes) > 1% indicates that a LEFT SHIFT is Present. MCH (RBC) [Entitic mass] 29.6 pg 27.0-32.0 [facility] Nucleated RBC/100 WBC (Bld) [Ratio] 0 % 0-5 [facility] MCHC Auto (RBC) [Mass/Vol]Or dered By: Dr. Kingsley on 10-22-2022 MCHC (RBC) [Mass/Vol] 32.7 g/dL 32-36 [facility] No Panel InformationOrdered By: Dr. Kingsley on 10-22-2022 Estimated Creatinine Clearance Calc 46.25 ml/min [facility] Estimated GFR (MDRD) Amer 63 mL/min >60 [facility] Comment on above: GFR Calc Estimated GFR (MDRD) Non-Af Amer 52 mL/min >60 [facility] Comment on above: Non- GFR Calc Platelets bldOrdered By: Dr. Kingsley on 10-22-2022 Platelets (Bld) [#/Vol] 244 10*3/uL 150-450 [facility] Serum or plasma calcium margarita urement (mass/volume)Ordered By: Dr. Kingsley on 10-22-2022 Calcium [Mass/Vol] 9.2 mg/dL 8.5-10.1 [facility] Serum or plasma creatinine m easurement (mass/volume)Ordered By: Dr. Kingsley on 10-22-2022 Creatinine [Mass/Vol] 1.12 mg/dL 0.55-1.02 [facility] Comment on above: The validity of the calculated GFR & GFRAA in patients over 70 years has not been determined. Clinical correlation is essential. Serum or plasma urea nitroge n measurement (mass/volume)Ordered By: Dr. Kingsley on 10-22-2022 Urea nitrogen [Mass/Vol] 19 mg/dL 7-18 [facility] Thin prep Papanicolaou smear with manual screeningOrdered By: Dr. Kingsley on 10-22-2022 Thin prep Papanicolaou smear with manual screening 6 5-15 [facility] Absolute lymphocyte countOrd ered By: Dr. Marshall on 07-30-2022 Lymphocytes Auto (Unsp spec) [#/Vol] 2.42 10*3/uL 0.83-4.51 [facility] Basophil percentageOrdered B y: Dr. Marshall on 07-30-2022 Basophils/100 WBC (Bld) 0.7 % 0-1 [facility] Chloride [Moles/Vol] 106 mmol/L 98-107 [facility] Eosinophils/100 WBC (Bld) 6.9 % 0-5 [facility] Glucose [Mass/Vol] 100 mg/dL 74-106 [facility] Comment on above: Fasting Glucose resu lt from 100 to 125 mg/dL suggests IMPAIRED HOMEOSTASIS per A.D.A. criteria. Neutrophils (Bld) [#/Vol] 2.8 10*3/uL 2.0-7.7 [facility] Neutrophils/100 WBC (Bld) 45.4 % 47-70 [facility] Potassium [Moles/Vol] 3.9 mmol/L 3.5-5.1 [facility] Sodium [Moles/Vol] 140 mmol/L 136-145 [facility] WBC (Bld) [#/Vol] 6.1 10*3/uL 4.4-11.0 [facility] Blood erythrocytes count (nu mber/volume)Ordered By: Dr. Marshall on 07-30-2022 RBC (Bld) [#/Vol] 4.70 10*6/uL 4.2-5.4 [facility] Blood hemoglobin measurement (mass/volume)Ordered By: Dr. Marshall on 07-30-2022 Hemoglobin (Bld) [Mass/Vol] 14.1 g/dL 12.0-15.0 [facility] Blood lymphocytes/100 leukoc ytesOrdered By: Dr. Marshall on 07-30-2022 Lymphocytes/100 WBC (Bld) 39.5 % 19-41 [facility] Blood monocytes/100 leukocyt esOrdered By: Dr. Marshall on 07-30-2022 Monocytes/100 WBC (Bld) 7.2 % 0-10 [facility] Blood platelet mean volumeOr dered By: Dr. Marshall on 07-30-2022 Platelet mean volume (Bld) [Entitic vol] 10.3 fL 6.2-12.0 [facility] COVID-19 virus antigen assay Ordered By: Dr. Marshall on 07-30-2022 SARS-CoV-2 (COVID-19) Ag IA.rapid Ql (Resp) [facility] Determination of erythrocyte mean corpuscular volume (MCV)Ordered By: Dr. Marshall on 07-30-2022 MCV (RBC) [Entitic vol] 90.9 fL 81-99 [facility] Hematocrit Auto (Bld) [Volum e fraction]Ordered By: Dr. Marshall on 07-30-2022 Hematocrit (Bld) [Volume fraction] 42.7 % 37-47 [facility] Laboratory - Chemistry and C hemistry - challengeOrdered By: Dr. Marshall on 07-30-2022 CO2 [Moles/Vol] 30.0 mmol/L 21.0-32.0 [facility] Urea nitrogen/Creatinine [Mass ratio] 17.1 mg/mg 10-20 [facility] Laboratory - Hematology and Cell countsOrdered By: Dr. Marshall on 07-30-2022 Erythrocyte distribution width (RBC) [Entitic vol] 44.6 fL 35.1-43.9 [facility] Erythrocyte distribution width (RBC) [Ratio] 13.3 % 11.6-14.6 [facility] Immature granulocytes/100 WBC (Bld) 0.300 % 0.0-0.9 [facility] Comment on above: IG% - Immature Granu locytes (promyelocytes, myelocytes and metamyelocytes) > 1% indicates that a LEFT SHIFT is Present. MCH (RBC) [Entitic mass] 30.0 pg 27.0-32.0 [facility] Nucleated RBC/100 WBC (Bld) [Ratio] 0 % 0-5 [facility] MCHC Auto (RBC) [Mass/Vol]Or dered By: Dr. Marshall on 07-30-2022 MCHC (RBC) [Mass/Vol] 33.0 g/dL 32-36 [facility] No Panel InformationOrdered By: Dr. Marshall on 07-30-2022 Estimated Creatinine Clearance Calc 52.33 ml/min [facility] Estimated GFR (MDRD) Amer 72 mL/min >60 [facility] Comment on above: GFR Calc Estimated GFR (MDRD) Non-Af Amer 59 mL/min >60 [facility] Comment on above: Non- GFR Calc Platelets bldOrdered By: Dr. Marshall on 07-30-2022 Platelets (Bld) [#/Vol] 245 10*3/uL 150-450 [facility] Serum or plasma calcium margarita urement (mass/volume)Ordered By: Dr. Marshall on 07-30-2022 Calcium [Mass/Vol] 9.8 mg/dL 8.5-10.1 [facility] Serum or plasma creatinine m easurement (mass/volume)Ordered By: Dr. Marshall on 07-30-2022 Creatinine [Mass/Vol] 0.99 mg/dL 0.55-1.02 [facility] Comment on above: The validity of the calculated GFR & GFRAA in patients over 70 years has not been determined. Clinical correlation is essential. Serum or plasma urea nitroge n measurement (mass/volume)Ordered By: Dr. Marshall on 07-30-2022 Urea nitrogen [Mass/Vol] 17 mg/dL 7-18 [facility] Thin prep Papanicolaou smear with manual screeningOrdered By: Dr. Marshall on 07-30-2022 Thin prep Papanicolaou smear with manual screening 4 5-15 [facility] CKon 04-13-2020 CK [Catalytic activity/Vol] 216 U/L High 30-170 [facility] Comment on above: Performed By: #### H EMDF, CMP3, ETOH4, CK3 #### [address] Total CK 216 U/L High 30 - 170 [facility] SARS-CoV-2 Not Detected Expected Result: Not Detected _ Real-time, RT-PCR performed on the [employer] System by the [facility] Microbiology Service. Negative results do not preclude SARS-CoV-2 infection and should not be used as the sole basis for treatment or other patient management decisions. This assay was developed by [employer] and distributed under an Emergency Use Authorization (EUA) granted by the FDA for the qualitative detection of SARS-CoV-2 nucleic acid. [place], [place] Test Performed by [facility], [address] [place] [id number] Specimen Source Comment:Nasopharyngeal Swab [place], [place] Comp Metabolic Panelon 04-13 ALP [Catalytic activity/Vol] 72 U/L Normal 38-126 [facility] Comment on above: Performed By: #### H EMDF, CMP3, ETOH4, CK3 #### [address] ALT [Catalytic activity/Vol] 17 U/L Normal 0-34 [facility] Comment on above: Result Comment: The ALT test is performed by an updated assay method. Please note that the reference intervals have been changed and are now sex specific. Performed By: #### H EMDF, CMP3, ETOH4, CK3 #### [address] [address] [place], [place] AST [Catalytic activity/Vol] 32 U/L Normal 15-46 [facility] Comment on above: Performed By: #### H EMDF, CMP3, ETOH4, CK3 #### [address] Calcium [Mass/Vol] 9.6 mg/dL Normal 8.4-10.4 [facility] Comment on above: Performed By: #### H EMDF, CMP3, ETOH4, CK3 #### [address] Glucose [Mass/Vol] 107 mg/dL High 70-100 [facility] Comment on above: Performed By: #### H EMDF, CMP3, ETOH4, CK3 #### [facility] [address], [place] Protein [Mass/Vol] 7.3 g/dL Normal 6.3-8.2 [facility] Comment on above: Performed By: #### H EMDF, CMP3, ETOH4, CK3 #### [facility] [address], [place] Urea nitrogen [Mass/Vol] 17 mg/dL Normal 7-20 [facility] Comment on above: Performed By: #### H EMDF, CMP3, ETOH4, CK3 #### [address] [address] [address] [place], [place] Anion gap [Moles/Vol] 7 Normal [facility] Comment on above: Performed By: #### H EMDF, CMP3, ETOH4, CK3 #### [address] [address] [address] [place], [place] Bilirubin [Mass/Vol] 0.5 mg/dL Normal 0.2-1.3 [facility] Comment on above: Performed By: #### H EMDF, CMP3, ETOH4, CK3 #### [address] [address] [address] [place], [place] CO2 [Moles/Vol] 25 mmol/L Normal 22-30 [facility] Comment on above: Performed By: #### H EMDF, CMP3, ETOH4, CK3 #### [address] [address] [address] [place], [place] Creatinine [Mass/Vol] 0.98 mg/dL Normal 0.52-1.25 [facility] Comment on above: Performed By: #### H EMDF, CMP3, ETOH4, CK3 #### [facility] [address], [place] GFR/1.73 sq M predicted among blacks MDRD (S/P/Bld) [Vol rate/Area] 70.5 mL/min/{1.73_m2} Normal >60 [facility] Comment on above: Performed By: #### H EMDF, CMP3, ETOH4, CK3 #### [address] [address] GFR/1.73 sq M predicted among non-blacks MDRD (S/P/Bld) [Vol rate/Area] 60.9 mL/min/{1.73_m2} Normal >60 [facility] Comment on above: Result Comment: KDIG [...] #### H EMDF, CMP3, ETOH4, CK3 #### [address] [address] Albumin [Mass/Vol] 4.2 g/dL Normal 3.5-5.0 [facility] Comment on above: Performed By: #### H EMDF, CMP3, ETOH4, CK3 #### [address] [address] Chloride [Moles/Vol] 105 mmol/L Normal 98-107 [facility] Comment on above: Performed By: #### H EMDF, CMP3, ETOH4, CK3 #### [address] [address] Potassium [Moles/Vol] 3.9 mmol/L Normal 3.5-5.1 [facility] Comment on above: Performed By: #### H EMDF, CMP3, ETOH4, CK3 #### [facility] [address], [place] Sodium [Moles/Vol] 137 mmol/L Normal 135-145 [facility] Comment on above: Performed By: #### H EMDF, CMP3, ETOH4, CK3 #### [address] [address] [address] [place], [place] Complete Urinalysison 2019 Appearance (U) Clear Normal Clear [facility] Comment on above: Result Comment: . Performed By: #### C UA2, DRGA4 #### [address] [address] [address] [place], [place] Bacteria LM.HPF (Urine sed) [#/Area] Negative Normal Negative [facility] Comment on above: Result Comment: . Performed By: #### C UA2, DRGA4 #### [address] [address] [address] [place], [place] Bilirubin,Urine Negative Normal Negative [facility] Comment on above: Result Comment: . Performed By: #### C UA2, DRGA4 #### [address] [address] [address] [place], [place] Cast, Hyaline Negative Normal Negative [facility] Comment on above: Result Comment: . Performed By: #### C UA2, DRGA4 #### [address] [address] [address] [place], [place] Color (U) Yellow Normal Lt. Yellow [facility] Comment on above: Result Comment: . Performed By: #### C UA2, DRGA4 #### [address] [address] [address] [place], [place] Glucose Ql (U) Normal Normal Normal (<70) [facility] Comment on above: Result Comment: . Performed By: #### C UA2, DRGA4 #### [address] [address] [address] [place], [place] Ketone,Urine Trace Abnormal Negative [facility] Comment on above: Result Comment: . Performed By: #### C UA2, DRGA4 #### [address] [address] [address] [place], [place] Leukocytes,Urine 25 Charles/uL Abnormal Negative [facility] Comment on above: Result Comment: . Performed By: #### C UA2, DRGA4 #### [facility] [address], [place] Mucous Threads Few Normal Negative [facility] Comment on above: Result Comment: . Performed By: #### C UA2, DRGA4 #### [facility] [address], [place] Nitrites,Urine Negative Normal Negative [facility] Comment on above: Result Comment: . Performed By: #### C UA2, DRGA4 #### [facility] [address], [place] Occult Blood,Urine Negative Normal Negative [facility] Comment on above: Result Comment: . Performed By: #### C UA2, DRGA4 #### [address] [address] [address] [place], [place] pH (U) 5.5 Normal 5.0-8.0 [facility] Comment on above: Result Comment: . Performed By: #### C UA2, DRGA4 #### [address] [address] [address] [place], [place] Protein (U) [Mass/Vol] 20 mg/dL Abnormal Negative [facility] Comment on above: Result Comment: . Performed By: #### C UA2, DRGA4 #### [address] [address] [address] [place], [place] RBC LM.HPF (Urine sed) [#/Area] 0 - 2 Normal 0-2 [facility] Comment on above: Result Comment: . Performed By: #### C UA2, DRGA4 #### [facility] [address], [place] Specific [place],Urine > 1.030 Abnormal 1.005 - 1.030 [facility] Comment on above: Result Comment: . Performed By: #### C UA2, DRGA4 #### [facility] [address], [place] Squamous Epithelial 3 - 5 Normal 3-5 [facility] Comment on above: Result Comment: . Performed By: #### C UA2, DRGA4 #### [facility] [address] [place] [address] Urobilinogen,Urine 3 mg/dL Abnormal Normal (0-1) [facility] Comment on above: Result Comment: . Performed By: #### C UA2, DRGA4 #### [facility] [address] [place] [address] WBC LM.HPF (Urine sed) [#/Area] 6 - 10 Abnormal 0-5 [facility] Comment on above: Result Comment: . Performed By: #### C UA2, DRGA4 #### [facility] [address] [place] [address] Comprehensive Metabolic Pane cassia 04-13-2020 Albumin [Mass/Vol] 4.2 g/dL 3.5 - 5 g/dL [place], [place] ALP [Catalytic activity/Vol] 72 U/L 38 - 126 U/L [place] ALT [Catalytic activity/Vol] 17 U/L 0 - 34 U/L [place] Comment on above: The ALT test is perf ormed by an updated assay method. Please note that the reference intervals have been changed and are now sex specific. Anion gap [Moles/Vol] 7 mmol/L [place], [place] AST [Catalytic activity/Vol] 32 U/L 15 - 46 U/L [place] Bilirubin Ql (U) 0.5 mg/dL 0.2 - 1.3 mg/dL [place] Calcium [Mass/Vol] 9.6 mg/dL 8.4 - 10. 4 mg/dL [place] Chloride [Moles/Vol] 105 mmol/L 98 - 10 7 mmol/L [place] CO2 [Moles/Vol] 25 mmol/L 22 - 30 mmol/L [place] Creatinine [Mass/Vol] 0.98 mg/dL 0.52 - 1.25 mg/dL [place] EGFR IF NonAfrican [place] 60.9 mL/min >60 [place] Comment on above: KDIGO guidelines pro [...] MDRD (S/P/Bld) [Vol rate/Area] 70.5 mL/min/{1.73_m2} >60 [facility], [place] Glucose [Mass/Vol] 107 mg/dL High 70 - 100 mg/dL [place], [place] Potassium [Moles/Vol] 3.9 mmol/L 3.5 - 5.1 mmol/L [facility], [place] Protein [Mass/Vol] 7.3 g/dL 6.3 - 8.2 g/dL [place] Sodium [Moles/Vol] 137 mmol/L 135 - 145 mmol/L [facility], [place] Urea nitrogen [Mass/Vol] 17 mg/dL 7 - 20 mg/dL [place] Drugs of Abuseon 04-13-2020 Phencyclidine (PCP), Ur Negative Normal [facility] Comment on above: Result Comment: The [...] Performed By: #### C UA2, DRGA4 #### [facility] [address] [facility] [place] [address] Methadone, Ur Negative Normal [facility] Comment on above: Performed By: #### C UA2, DRGA4 #### [facility] [address] [place] [address] Opiates, Ur Negative Normal [facility] Comment on above: Performed By: #### C UA2, DRGA4 #### [facility] [address] [facility], [place] Cocaine, Ur Positive Normal [facility] Comment on above: Performed By: #### C UA2, DRGA4 #### [facility] [address] [facility], [place] Amphetamines, Ur Negative Normal [facility] Comment on above: Performed By: #### C UA2, DRGA4 #### [facility] [address], [place] Barbiturates, Ur Negative Normal [facility] Comment on above: Performed By: #### C UA2, DRGA4 #### [facility] [address] [place] [facility] [place] [address] Benzodiazepines, Ur Negative Normal [facility] Comment on above: Performed By: #### C UA2, DRGA4 #### [facility] [address], [place] Oxycodone/Oxymorphine, Ur Negative Normal [facility] Comment on above: Performed By: #### C UA2, DRGA4 #### [facility] [address] [facility], [place] Ethanolon 04-13-2020 Ethanol Lvl <0.010 0 - 0.01 g/dL [facility], [place] Comment on above: NOTE: This result is for medical treatment only. Analysis performed using non-forensic procedures. Ethanol Serum/Plasmaon 04-13 Ethanol-Serum/Plasma < 0.010 Normal 0.000-0.010 [facility] Comment on above: Result Comment: NOTE : This result is for medical treatment only. Analysis performed using non-forensic procedures. Performed By: #### H EMDF, CMP3, ETOH4, CK3 #### [facility] [address] [place] [address] Hemogram (CBC) w/Auto Diffon 04-13-2020 Absolute Baso # 0.0 10*3/uL 0 - 0.2 10*3/uL [place] Absolute Neut # 3.8 10*3/uL 1.8 - 7 10*3/uL [place] Basophils/100 WBC (Bld) 0.5 % 0 - 2 % [place] Eosinophils (Bld) [#/Vol] 0.2 10*3/uL 0 - 0.5 10*3/uL [place] Eosinophils/100 WBC (Bld) 2.4 % 1 - 6 % [place] Erythrocyte distribution width (RBC) [Ratio] 15.3 % High 11.5 - 14.5 % [place] Granulocytes/100 WBC (Bld) 58.0 % 40 - 80 % [place] Hematocrit (Bld) [Volume fraction] 46.0 % 35 - 47 % [place] Hemoglobin (Bld) [Mass/Vol] 15.5 g/dL 11.7 - 16 g/dL [place] Interpretation and review of laboratory results Abnormal [place] Lymphocytes (Bld) [#/Vol] 2.2 10*3/uL 1 - 4.3 10*3/uL [place] Lymphocytes/100 WBC (Bld) 34.0 % 20 - 40 % [place] MCH (RBC) [Entitic mass] 31.3 pg 26 - 34 pg [place] MCHC (RBC) [Mass/Vol] 33.7 % 32 - 36 % [place] MCV (RBC) [Entitic vol] 93.1 fL 79 - 98 fL [place] Monocytes (Bld) [#/Vol] 0.3 10*3/uL 0 - 0.8 10*3/uL [place] Monocytes/100 WBC (Bld) 5.1 % 2 - 10 % [place] Platelet mean volume (Bld) [Entitic vol] 9.3 fL 7.4 - 10.4 fL [place] Platelets (Bld) [#/Vol] 211 10*3/uL 140 - 440 10*3/uL [place] RBC (Bld) [#/Vol] 4.94 10*6/uL 3.8 - 5.2 10*6/uL [place] WBC (Bld) [#/Vol] 6.6 10*3/uL 3.6 - 10.7 10*3/uL [place] Test Performed by [facility], [address] [place] [id number] [place] [address] Hemogram w/ Autodiffon 04-13 Abs Baso Cnt 0.0 10*3/uL Normal 0.0-0.2 [facility] Comment on above: Performed By: #### H EMDF, CMP3, ETOH4, CK3 #### [address] Abs Neutrophile Cnt 3.8 10*3/uL Normal 1.8-7.0 [facility] Comment on above: Performed By: #### H EMDF, CMP3, ETOH4, CK3 #### [address] [address] Basophils/100 WBC (Bld) 0.5 % Normal 0.0-2.0 [facility] Comment on above: Performed By: #### H EMDF, CMP3, ETOH4, CK3 #### [address] [address] Eosinophils (Bld) [#/Vol] 0.2 10*3/uL Normal 0.0-0.5 [facility] Comment on above: Performed By: #### H EMDF, CMP3, ETOH4, CK3 #### [address] [address] Eosinophils/100 WBC (Bld) 2.4 % Normal 1.0-6.0 [facility] Comment on above: Performed By: #### H EMDF, CMP3, ETOH4, CK3 #### [address] [address] [address] [place], [place] Erythrocyte distribution width (RBC) [Ratio] 15.3 % High 11.5-14.5 [facility] Comment on above: Performed By: #### H EMDF, CMP3, ETOH4, CK3 #### [address] [address] [place] Granulocytes/100 WBC (Bld) 58.0 % Normal 40.0-80.0 [facility] Comment on above: Performed By: #### H EMDF, CMP3, ETOH4, CK3 #### [address] Hematocrit (Bld) [Volume fraction] 46.0 % Normal 35.0-47.0 [facility] Comment on above: Performed By: #### H EMDF, CMP3, ETOH4, CK3 #### [address] [address] [place] Hemoglobin (Bld) [Mass/Vol] 15.5 g/dL Normal 11.7-16.0 [facility] Comment on above: Performed By: #### H EMDF, CMP3, ETOH4, CK3 #### [address] Lymphocytes (Bld) [#/Vol] 2.2 10*3/uL Normal 1.0-4.3 [facility] Comment on above: Performed By: #### H EMDF, CMP3, ETOH4, CK3 #### [address] Lymphocytes/100 WBC (Bld) 34.0 % Normal 20.0-40.0 [facility] Comment on above: Performed By: #### H EMDF, CMP3, ETOH4, CK3 #### [address] MCH (RBC) [Entitic mass] 31.3 pg Normal 26.0-34.0 [facility] Comment on above: Performed By: #### H EMDF, CMP3, ETOH4, CK3 #### [address] [address] [address] MCHC (RBC) [Mass/Vol] 33.7 % Normal 32.0-36.0 [facility] Comment on above: Performed By: #### H EMDF, CMP3, ETOH4, CK3 #### [address] MCV (RBC) [Entitic vol] 93.1 fL Normal 79.0-98.0 [facility] Comment on above: Performed By: #### H EMDF, CMP3, ETOH4, CK3 #### [address] Monocytes (Bld) [#/Vol] 0.3 10*3/uL Normal 0.0-0.8 [facility] Comment on above: Performed By: #### H EMDF, CMP3, ETOH4, CK3 #### [address] Monocytes/100 WBC (Bld) 5.1 % Normal 2.0-10.0 [facility] Comment on above: Performed By: #### H EMDF, CMP3, ETOH4, CK3 #### [address] Platelet mean volume (Bld) [Entitic vol] 9.3 fL Normal 7.4-10.4 [facility] Comment on above: Performed By: #### H EMDF, CMP3, ETOH4, CK3 #### [address] Platelets (Bld) [#/Vol] 211 10*3/uL Normal 140-440 [facility] Comment on above: Performed By: #### H EMDF, CMP3, ETOH4, CK3 #### [address] RBC (Bld) [#/Vol] 4.94 10*6/uL Normal 3.80-5.20 [facility] Comment on above: Performed By: #### H EMDF, CMP3, ETOH4, CK3 #### [address] [address] [address], [place] WBC (Bld) [#/Vol] 6.6 10*3/uL Normal 3.6-10.7 [facility] Comment on above: Performed By: #### H EMDF, CMP3, ETOH4, CK3 #### [address] [address] [place], [place] Otheron 04-13-2020 Interpretation and review of laboratory results Abnormal [place] Test Performed by [facility], [place] [address] [place] [id number] 04-13-2020 SARS-CoV-2 SARS-CoV-2 --> Statu s: F Not Detected Expected Result: Not Detected _ Real-time, RT-PCR performed on the [employer] System by the [facility]. Negative results do not preclude SARS-CoV-2 infection and should not be used as the sole basis for treatment or other patient management decisions. This assay was developed by [employer] and distributed under an Emergency Use Authorization (EUA) granted by the FDA for the qualitative detection of SARS-CoV-2 nucleic acid. Expected Result: Not Detected _ Real-time, RT-PCR performed on the [employer] System by the [facility]. Negative results do not preclude SARS-CoV-2 infection and should not be used as the sole basis for treatment or other patient management decisions. This assay was developed by [employer] and distributed under an Emergency Use Authorization (EUA) granted by the FDA for the qualitative detection of SARS-CoV-2 nucleic acid. Normal [facility] Comment on above: Order Comment: Speci men Source Comment:Nasopharyngeal Swab Performed By: #### C OVID #### [address] [address] [address] [place], [place] Urinalysison 04-13-2020 Appearance (U) Clear Clear NA [place] Comment on above: . Bacteria, UA Negative Negative /[HPF] [place] Comment on above: . Bilirubin Urine Negative Negative mg/dL [place] Comment on above: . Color (U) Yellow Lt. Yellow NA [place] Comment on above: . Glucose, Ur Normal Normal (<70) mg/dL [place] Comment on above: . Hyaline Casts, UA Negative Negative /[LPF] [place] Comment on above: . Interpretation and review of laboratory results Abnormal [place] Ketones Ql (U) Trace Abnormal Negative mg/dL [place] Comment on above: . LEUKOCYTES, UA 25 Abnormal Negative Charles/uL [place] Comment on above: . Mucous Threads Few Negative /[LPF] [place] Comment on above: . Nitrite, Urine Negative Negative NA [place] Comment on above: . Occult Blood,Urine Negative Negative mg/dL [place] Comment on above: . pH (U) 5.5 [pH] [place] Comment on above: . Protein (U) [Mass/Vol] 20 mg/dL Abnormal Negative [place] Comment on above: . RBC (U) [#/Vol] 0-2 0 - 2 /[HPF] [place] Comment on above: . Specific [place], Urine >1.030 Abnormal [place] Comment on above: . Squam Epithel, UA 3-5 3 - 5 /[HPF] [place] Comment on above: . Urobilinogen, Urine 3 mg/dL Abnormal Normal (0-1) [place] Comment on above: . WBC, UA 6-10 Abnormal 0 - 5 /[HPF] [place] Comment on above: . Test Performed by [facility], [address] [place] [address] [place] Urine Drug Screenon 04-13-20 20 Amphetamines, urine Negative [place] Barbiturates, Ur Negative [place] Benzodiazepine Ur Qual Negative [place] Cocaine Metabolites, Ur Positive [place] Methadone, Urine Negative [place] Opiates, Urine Negative [place] Oxycodone Screen, Ur Negative [place] PCP, Urine Negative [place] Comment on above: The expected value [...] confirmation under separate order. Test Performed by [facility], [address] [place] [id number] [place] [address] Psychiatric Progress Noteon 12-04-2019 Psychiatric Progress Note [facility] Pt Name: DIANNE ALVES [address] MR#: [id number] [place] [address] ACCT: [id number] PROGRESS NOTE - Psychiatric : 57 Service Date: 12/04/19 1618 NAME: DIANNE ALVES MR#: [id number] DATE OF SERVICE: 12/04/2019 PSYCHIATRIC PROGRESS NOTE [...] discharge would be finalized. LANDRY JOE MD ANS/MODL/[id number] Electronically Signed eSign Date and Time Olivia Joe MD 12/08/19 1330 Normal [facility] CHEST PA/AP & LATERAL OR 2 V WSon 12-01-2019 CHEST PA/AP & LATERAL OR 2 VWS STUDY: CHEST PA/AP LATERAL OR 2 VWS; 12/01/2019 4:23 pm INDICATION: [facility]. COMPARISON: None. ACCESSION NUMBER(S): [id number] ORDERING CLINICIAN: Irwin Joe FINDINGS: The lungs appear clear without pleural effusion. The lungs are hyperinflated. Normal heart size, mediastinum, tea, and pulmonary vasculature. IMPRESSION: Pulmonary emphysema. No active disease in the chest. Normal [facility] Psychiatric Progress Noteon 12-01-2019 Psychiatric Progress Note [facility] Pt Name: DIANNE ALVES [address] [place] [address] MR#: [id number] [place] [address] ACCT: [id number] PROGRESS NOTE - Psychiatric : 57 Service Date: 12/01/192229 NAME: DIANNE ALVES MR#: [id number] DATE OF SERVICE: 12/01/2019 PSYCHIATRIC PROGRESS NOTE [...] further, discharge be considered. LANDRY JOE MD ANS/MODL/[id number] Electronically Signed eSign Date and Time Olivia Joe MD 12/04/19 1601 Normal [facility] BASIC MET PANELon 11-29-2019 Anion gap [Moles/Vol] 8 mmol/L Normal 6-18 [facility] Comment on above: Order Comment: CONSE RVATION Performed By: #### L 600.34524 #### Test performed at: [address] [address] Calcium [Mass/Vol] 9.3 mg/dL Normal 8.5-10.1 [facility] Comment on above: Order Comment: CONSE RVATION Performed By: #### L 600.40954 #### Test performed at: [address] [address] Chloride [Moles/Vol] 103 mmol/L Normal 98-107 [facility] Comment on above: Order Comment: CONSE RVATION Performed By: #### L 600.65487 #### Test performed at: [address] [address] CO2 [Moles/Vol] 31 mmol/L Normal 21-32 [facility] Comment on above: Order Comment: CONSE RVATION Performed By: #### L 600.45575 #### Test performed at: [address] [address] Creatinine [Mass/Vol] 1.120 mg/dL High 0.550-1.020 [facility] Comment on above: Order Comment: CONSE RVATION Performed By: #### L 600.23408 #### Test performed at: [address] [address] Glucose [Mass/Vol] 97 mg/dL Normal 70-99 [facility] Comment on above: Order Comment: CONSE RVATION Result Comment: Fast ing GLUCOSE reference range has been updated per (ADA) [place] [employer]'s recommendation. 12/23/2018 Performed By: #### L 600.21912 #### Test performed at: [address] [address] OSM 292 mosm/kg Normal 270-300 [facility] Comment on above: Order Comment: CONSE RVATION Performed By: #### L 600.32571 #### Test performed at: [address] [address] Potassium [Moles/Vol] 4.5 mmol/L Normal 3.5-5.1 [facility] Comment on above: Order Comment: CONSE RVATION Performed By: #### L 600.80618 #### Test performed at: [address] [address] Sodium [Moles/Vol] 138 mmol/L Normal 136-145 [facility] Comment on above: Order Comment: CONSE RVATION Performed By: #### L 600.19169 #### Test performed at: [address] [address] Urea nitrogen [Mass/Vol] 31 mg/dL High 7-18 [facility] Comment on above: Order Comment: CONSE RVATION Performed By: #### L 600.90366 #### Test performed at: [address] [address] CBCon 11-29-2019 Erythrocyte distribution width (RBC) [Ratio] 15.5 % High 11.5-14.5 [facility] Comment on above: Order Comment: CONSE RVATION Performed By: #### L 600.63428 #### Test performed at: [place] [id number] Hematocrit (Bld) [Volume fraction] 40.9 % Normal 36.0-48.0 [facility] Comment on above: Order Comment: CONSE RVATION Performed By: #### L 600.69702 #### Test performed at: [place] [address] Hemoglobin (Bld) [Mass/Vol] 13.4 g/dL Normal 12.0-15.0 [facility] Comment on above: Order Comment: CONSE RVATION Performed By: #### L 600.06002 #### Test performed at: [address] [address] MCH (RBC) [Entitic mass] 30.8 pg Normal 25.4-34.6 [facility] Comment on above: Order Comment: CONSE RVATION Performed By: #### L 600.82311 #### Test performed at: [address] [address] MCHC (RBC) [Mass/Vol] 32.8 g/dL Normal 31.5-36.5 [facility] Comment on above: Order Comment: CONSE RVATION Performed By: #### L 600.42793 #### Test performed at: [address] [address] MCV (RBC) [Entitic vol] 94.0 fL Normal 79.0-98.0 [facility] Comment on above: Order Comment: CONSE RVATION Performed By: #### L 600.35074 #### Test performed at: [address] [address] NRBC # 0.000 K/uL Normal 0-0.012 [facility] Comment on above: Order Comment: CONSE RVATION Performed By: #### L 600.55949 #### Test performed at: [address] [address] NRBC % 0.0 /100 WBC Normal 0-0.2 [facility] Comment on above: Order Comment: CONSE RVATION Performed By: #### L 600.71273 #### Test performed at: [address] [address] Platelet mean volume (Bld) [Entitic vol] 10.3 fL Normal 8.7-12.4 [facility] Comment on above: Order Comment: CONSE RVATION Performed By: #### L 600.51741 #### Test performed at: [address] [address] Platelets (Bld) [#/Vol] 202 10*3/uL Normal 140-440 [facility] Comment on above: Order Comment: CONSE RVATION Performed By: #### L 600.78505 #### Test performed at: [address] [address] RBC (Bld) [#/Vol] 4.35 10*6/uL Normal 3.5-5.5 [facility] Comment on above: Order Comment: CONSE RVATION Performed By: #### L 600.32274 #### Test performed at: [address] [address] WBC (Bld) [#/Vol] 5.8 10*3/uL Normal 3.9-11.0 [facility] Comment on above: Order Comment: CONSE RVATION Performed By: #### L 600.21932 #### Test performed at: [address] [address] EST. CREAT CLRon 11-29-2019 Creatinine [Mass/Vol] 49.915 ML/MIN Normal [facility] Comment on above: Order Comment: CONSE RVATION Result Comment: This result is an ESTIMATED blood creatinine clearance value which is derived from the patient age, sex, weight, and previous blood creatinine result. Performed By: #### L 600.63531 #### Test performed at: [place] [address] GFR ESTIMATEon 11-29-2019 IF AMER 60 Normal > 60 [facility] Comment on above: Order Comment: [...] for clinical interpretation. Performed By: #### L 600.80107 #### Test performed at: [place] [address] IF non-AFR AMER 49 Low > 60 [facility] Comment on above: Order Comment: CONSE RVATION Performed By: #### L 600.31382 #### Test performed at: [place] [address] TROPONIN QUANTon 11-29-2019 Troponin I.cardiac [Mass/Vol] 0.017 ng/mL Normal 0.01-0.045 [facility] Comment on above: Order Comment: CONSE RVATION Performed By: #### L 600.02205 #### Test performed at: [place] [address] Psychiatric Progress Noteon 11-27-2019 Psychiatric Progress Note [facility] Pt Name: DANIEL ALVESNoelle Griggs [address] [place] [address] MR#: [id number] [place] [address] ACCT: [id number] PROGRESS NOTE - Psychiatric : 57 Service Date: 11/27/19 09 NAME: DIANNE ALVES MR#: [id number] DATE OF SERVICE: 11/27/2019 PSYCHIATRIC PROGRESS NOTE [...] discharge could be finalized. LANDRY JOE MD ANS/MODL/[id number] Electronically Signed eSign Date and Time Olivia Joe MD 12/04/19 1601 Normal [facility] CONSULTATION REPORTon 2019 CONSULTATION REPORT NAME: SOPHIA ALVES MR#: [id number] [employer] FILLER: Cortney Greer MD DATE OF CONSULTATION: 11/26/2019 [...] adding gabapentin and the patient has been [facility] PT NAME: DIANNE ALVES MR#: [id number] [address] [place] [address] ACCT: [id number] : 57 CONSULTATION started on Cymbalta, which is going to help with the depression as well as neuropathy and COPD is currently stable. I will follow the patient along with you. CORTNEY GREER MD MS/MODL/[id number] E/S: Cortney Greer MD 11/26/19 1134 Electronically Signed [facility] PT NAME: DIANNE ALVES MR#: [id number] [address] [place] [address] ACCT: [id number] : 57 CONSULTATION Normal [facility] GLYCO HEMOon 11-26-2019 HbA1c (Bld) [Mass fraction] 5.3 % Normal [facility] Comment on above: Order Comment: TEST: HA1C Added [place] SPECIMEN at 215211/25/19 by [employer] Result Comment: Matt bond Diagnosis HbA1c (%) --------- Diabetic > 6.4 Prediabetes 5.7-6.4 Normal < 5.7 Performed By: #### L 500.98479 #### Test performed at: [place] [address] HISTORY & PHYSICALon 020 HISTORY & PHYSICAL NAME: SOPHIA ALVES MR#: [id number] DATE OF ADMISSION: 11/25/2019 HISTORY AND PHYSICAL SUBJECTIVE: Dianne Alves is a 64-year-old -Finnish female who was evicted from her apartment [...] was positive for cocaine and opioids. The card writer hand in the ED said that she did not have a plan of how to harm herself. Her only protective factor, she has 2 small dogs. Apparently they are with the operations and maintenance supervisor. Today, the patient was seen in her room. Still very labile and tearful during the interview, very focused on her pain in her lower extremity. She reports that both her feet feel like they are on fire. She did tell this card writer hand that she has some insufficiency and she showed this card writer hand a scar in her left groin area [...] history. She recalls she thought being at [facility] on the psych unit previously, but it [...] Management. She thought she might have at [facility] or [facility], but she is no longer getting [...] to people in her apartment building. The operations and maintenance supervisor supposedly has her dogs, but she is [...] hopeless and clearly extremely depressed and anxious. [facility] PT NAME: DIANNE ALVES MR#: [id number] [address] [place] [address] ACCT: [id number] : 57 HISTORY AND PHYSICAL ADM DATE: 11/25/19 PAST PSYCHIATRIC HISTORY: Very difficult to ascertain. She is not remembering where she was admitted. She thought it was [facility]. Possibly was on Seroquel, possibly an antidepressant. [...] allergies. PSYCHOSOCIAL HISTORY: She was born in [place], but raised primarily in [place] by her mother. She lives by herself [...] STATUS EXAMINATION: Dianne Alves is a 64-year-old -Finnish female who looks older than her stated [...] JOE MD Dictated by: GENA LEAHY NP /[facility]/[id number] [facility] PT NAME: DIANNE ALVES MR#: [id number] [address] [place] [address] ACCT: [id number] : 57 HISTORY AND PHYSICAL ADM DATE: 11/25/19 E/S: Olivia Joe MD 11/27/19 0856 Electronically Signed [facility] PT NAME: DIANNE ALVES MR#: [id number] [address] [place] [address] ACCT: [id number] : 57 HISTORY AND PHYSICAL ADM DATE: 11/25/19 Normal [facility] LIPID PROFILEon 11-26-2019 Cholesterol [Mass/Vol] 174 mg/dL Normal <200 [facility] Comment on above: Order Comment: TEST: LIPID Added TO SPECIMEN at 215211/25/19 by [employer] Is patient fasting? UNKNOWN Result Comment: <200 mg/dL (Desirable) 200-240 mg/dL (Borderline) >240 mg/dL (High Risk) Performed By: #### L 500.50005, L500.69316, L500.67537, L500.45500 #### Test performed at: [address] [address] Cholesterol in HDL [Mass/Vol] 71 mg/dL High 40-60 [facility] Comment on above: Order Comment: TEST: LIPID Added TO SPECIMEN at 215211/25/19 by [employer] Is patient fasting? UNKNOWN Performed By: #### L 500.42692, L500.35806, L500.45623, L500.94217 #### Test performed at: [address] [address] Cholesterol in LDL [Mass/Vol] 87 mg/dL Normal 60-130 [facility] Comment on above: Order Comment: TEST: LIPID Added TO SPECIMEN at 215211/25/19 by [employer] Is patient fasting? UNKNOWN Performed By: #### L 500.96844, L500.64718, L500.42819, L500.84683 #### Test performed at: [place] [address] Triglyceride [Mass/Vol] 103 mg/dL Normal <150 [facility] Comment on above: Order Comment: TEST: LIPID Added TO SPECIMEN at 2153 11/25/19 by [employer] Is patient fasting? UNKNOWN Result Comment: <150 mg/dL (Normal) 150-199 mg/dL (Borderline) 200-499 mg/dL (High) >500 mg/dL (Very High) Performed By: #### L 500.23441, L500.30999, L500.51325, L500.81436 #### Test performed at: [place] [address] Psychiatric Progress Noteon 11-26-2019 Psychiatric Progress Note [facility] Pt Name: DIANNE ALVES [address] [place] [address] MR#: [id number] [place] [address] ACCT: [id number] PROGRESS NOTE - Psychiatric : 57 Service Date: 12/02/19 1510 NAME: DIANNE ALVES MR#: [id number] DATE OF SERVICE: 12/02/2019 PSYCHIATRIC PROGRESS NOTE [...] finally agreed to going to a homeless penitentiary from where she could be transferred to transitional housing if she cooperates with her case consultant. So far she is tolerating her medications well. Her pain depression and her thought processes all appear to show improvement. Dianne Alves progress discharge planning followup care was reviewed with the members of nursing team. The patient's chart was reviewed as well. I would maintain her current combination medication, Cymbalta as well as Seroquel. Plan on discharging her to a homeless penitentiary in the next few days' time. MD RICKY GAGNON/MODL/[id number] 1 Electronically Signed eSign Date and Time Olivia Joe MD 12/04/19 1601 Normal [facility] Psychiatric Progress Note [facility] Pt Name: DIANNE ALVES [address] [place] [address] MR#: [id number] [place] [address] ACCT: [id number] PROGRESS NOTE - Psychiatric : 57 Service Date: 12/07/19 152 NAME: DIANNE ALVES MR#: [id number] DATE OF SERVICE: 12/07/2019 PSYCHIATRIC PROGRESS NOTE [...] up on an outpatient basis. MD RICKY GAGNON/MODL/[id number] Electronically Signed eSign Date and Time Olivia Joe MD 12/08/19 1330 Normal [facility] Psychiatric Progress Note [facility] Pt Name: LONGDIANNE CASTREJON [address] MR#: [id number] [place] [id number] ACCT: [id number] PROGRESS NOTE - Psychiatric : 57 Service Date: 12/03/19 1320 NAME: DIANNE ALVES MR#: [id number] DATE OF SERVICE: 12/03/2019 PSYCHIATRIC PROGRESS NOTE [...] for her Social Work has contacted a [facility] and is going to interview her. She [...] that she could be admitted to a [facility] for housing. If those arrangements work out, plan will be to discharge her in the next few days. LANDRY JOE MD Dictated by: GENA LEAHY NP /[facility]/[id number] Electronically Signed eSign Date and Time Olivia Joe MD 12/04/19 1601 Normal [facility] Psychiatric Progress Note [facility] Pt Name: DIANNE ALVES [address] MR#: [id number] [place] [id number] ACCT: [id number] PROGRESS NOTE - Psychiatric : 57 Service Date: 11/30/19 1238 NAME: DIANNE ALVES MR#: [id number] DATE OF SERVICE: 11/30/2019 PSYCHIATRIC PROGRESS NOTE [...] JOE MD Dictated by: GENA LEAHY NP /[facility]/[id number] Electronically Signed eSign Date and Time Olivia Joe MD 12/04/19 1601 Normal [facility] Psychiatric Progress Note [facility] Pt Name: DIANNE ALVES [facility] [address] MR#: [id number] [place] [address] ACCT: [id number] PROGRESS NOTE - Psychiatric : 57 Service Date: 12/05/19 1434 NAME: DIANNE ALVES MR#: [id number] DATE OF SERVICE: 12/05/2019 PSYCHIATRIC PROGRESS NOTE [...] now is agreeable to going to a [facility]. Dianne Alves's progress, discharge planning, followup care [...] discharge will be considered. LANDRY JOE MD ANS/MODL/[id number] Electronically Signed eSign Date and Time Olivia Joe MD 12/08/19 1330 Normal [facility] ALC ETHANOLon 11-25-2019 ALC ETHANOL < 3.0 Normal <10.0 [facility] Comment on above: Order Comment: TEST: LIPID Added TO SPECIMEN at 2153 11/25/19 by [employer] Is patient fasting? UNKNOWN Result Comment: UNCO NFIRMED Toxicology results. For MEDICAL purposes only. Performed By: #### L 500.77503, L500.84444, L500.46228, L500.89100 #### Test performed at: [address] [address] CBC W/DIFFon 11-25-2019 BASO ABS 0.0 K/uL Normal 0.0-0.2 [facility] Comment on above: Order Comment: CONSE RVATION Performed By: #### L 200.51209 #### Test performed at: [address] [address] Basophils/100 WBC (Bld) 0.5 % Normal [facility] Comment on above: Order Comment: CONSE RVATION Performed By: #### L 200.87624 #### Test performed at: [address] [address] EOS ABS 0.4 K/uL Normal 0.0-0.5 [facility] Comment on above: Order Comment: CONSE RVATION Performed By: #### L 200.16303 #### Test performed at: [address] [address] Eosinophils/100 WBC (Bld) 6.2 % Normal [facility] Comment on above: Order Comment: CONSE RVATION Performed By: #### L 200.79868 #### Test performed at: [address] [address] Erythrocyte distribution width (RBC) [Ratio] 15.3 % High 11.5-14.5 [facility] Comment on above: Order Comment: CONSE RVATION Performed By: #### L 200.65802 #### Test performed at: [address] [address] Hematocrit (Bld) [Volume fraction] 44.8 % Normal 36.0-48.0 [facility] Comment on above: Order Comment: CONSE RVATION Performed By: #### L 200.27020 #### Test performed at: [address] [address] Hemoglobin (Bld) [Mass/Vol] 14.8 g/dL Normal 12.0-15.0 [facility] Comment on above: Order Comment: CONSE RVATION Performed By: #### L 200.13980 #### Test performed at: [place] [address] IG % 0.2 % Normal [facility] Comment on above: Order Comment: CONSE RVATION Performed By: #### L 200.82178 #### Test performed at: [place] [address] IG ABS 0.01 K/uL Normal 0-0.05 [facility] Comment on above: Order Comment: CONSE RVATION Performed By: #### L 200.46012 #### Test performed at: [address] [address] Lymphocytes (Bld) [#/Vol] 2.7 10*3/uL Normal 1.2-3.5 [facility] Comment on above: Order Comment: CONSE RVATION Performed By: #### L 200.08113 #### Test performed at: [address] [address] Lymphocytes/100 WBC (Bld) 44.2 % Normal [facility] Comment on above: Order Comment: CONSE RVATION Performed By: #### L 200.69004 #### Test performed at: [address] [address] MCH (RBC) [Entitic mass] 31.0 pg Normal 25.4-34.6 [facility] Comment on above: Order Comment: CONSE RVATION Performed By: #### L 200.85899 #### Test performed at: [address] [address] MCHC (RBC) [Mass/Vol] 33.0 g/dL Normal 31.5-36.5 [facility] Comment on above: Order Comment: CONSE RVATION Performed By: #### L 200.41699 #### Test performed at: [address] [address] MCV (RBC) [Entitic vol] 93.7 fL Normal 79.0-98.0 [facility] Comment on above: Order Comment: CONSE RVATION Performed By: #### L 200.40142 #### Test performed at: [address] [address] MONO ABS 0.5 K/uL Normal 0.0-1.0 [facility] Comment on above: Order Comment: CONSE RVATION Performed By: #### L 200.94676 #### Test performed at: [address] [address] Monocytes/100 WBC (Bld) 7.6 % Normal [facility] Comment on above: Order Comment: CONSE RVATION Performed By: #### L 200.15158 #### Test performed at: [address] [address] NEUTROPHIL ABS 2.6 K/uL Normal 1.4-6.6 [facility] Comment on above: Order Comment: CONSE RVATION Performed By: #### L 200.85208 #### Test performed at: [address] [address] Neutrophils/100 WBC (Bld) 41.3 % Normal [facility] Comment on above: Order Comment: CONSE RVATION Performed By: #### L 200.48856 #### Test performed at: [address] [address] NRBC # 0.000 K/uL Normal 0-0.012 [facility] Comment on above: Order Comment: CONSE RVATION Performed By: #### L 200.86557 #### Test performed at: [address] [address] NRBC % 0.0 /100 WBC Normal 0-0.2 [facility] Comment on above: Order Comment: CONSE RVATION Performed By: #### L 200.03101 #### Test performed at: [address] [address] Platelet mean volume (Bld) [Entitic vol] 10.3 fL Normal 8.7-12.4 [facility] Comment on above: Order Comment: CONSE RVATION Performed By: #### L 200.00132 #### Test performed at: [address] [address] Platelets (Bld) [#/Vol] 233 10*3/uL Normal 140-440 [facility] Comment on above: Order Comment: CONSE RVATION Performed By: #### L 200.08694 #### Test performed at: [address] [address] RBC (Bld) [#/Vol] 4.78 10*6/uL Normal 3.5-5.5 [facility] Comment on above: Order Comment: CONSE RVATION Performed By: #### L 200.51133 #### Test performed at: [address] [address] WBC (Bld) [#/Vol] 6.2 10*3/uL Normal 3.9-11.0 [facility] Comment on above: Order Comment: CONSE RVATION Performed By: #### L 200.13155 #### Test performed at: [address] [address] COMP META PANELon 11-25-2019 Albumin [Mass/Vol] 3.7 g/dL Normal 3.4-5.0 [facility] Comment on above: Order Comment: TEST: LIPID Added TO SPECIMEN at 215211/25/19 by [employer] Is patient fasting? UNKNOWN Performed By: #### L 500.69121, L500.74866, L500.83208, L500.58413 #### Test performed at: [address] [address] ALK PHOS TOTAL 87 U/L Normal 45-117 [facility] Comment on above: Order Comment: TEST: LIPID Added TO SPECIMEN at 215211/25/19 by [employer] Is patient fasting? UNKNOWN Performed By: #### L 500.19780, L500.73903, L500.42972, L500.36500 #### Test performed at: [address] [address] ALT [Catalytic activity/Vol] 21 U/L Normal 13-61 [facility] Comment on above: Order Comment: TEST: LIPID Added TO SPECIMEN at 215211/25/19 by [employer] Is patient fasting? UNKNOWN Performed By: #### L 500.32278, L500.89986, L500.02315, L500.59510 #### Test performed at: [address] [address] AST [Catalytic activity/Vol] 26 U/L Normal 15-37 [facility] Comment on above: Order Comment: TEST: LIPID Added TO SPECIMEN at 215211/25/19 by [employer] Is patient fasting? UNKNOWN Performed By: #### L 500.15529, L500.71859, L500.76249, L500.61516 #### Test performed at: [address] [address] BILI TOTAL 0.2 mg/dL Normal 0.2-1.0 [facility] Comment on above: Order Comment: TEST: LIPID Added TO SPECIMEN at 215211/25/19 by [employer] Is patient fasting? UNKNOWN Performed By: #### L 500.39332, L500.85360, L500.74537, L500.31650 #### Test performed at: [address] [address] Calcium [Mass/Vol] 9.4 mg/dL Normal 8.5-10.1 [facility] Comment on above: Order Comment: TEST: LIPID Added TO SPECIMEN at 215211/25/19 by [employer] Is patient fasting? UNKNOWN Performed By: #### L 500.14781, L500.74080, L500.89721, L500.80107 #### Test performed at: [address] [address] Chloride [Moles/Vol] 108 mmol/L High 98-107 [facility] Comment on above: Order Comment: TEST: LIPID Added TO SPECIMEN at 215211/25/19 by [employer] Is patient fasting? UNKNOWN Performed By: #### L 500.84015, L500.86620, L500.64965, L500.34951 #### Test performed at: [address] [address] CO2 [Moles/Vol] 27 mmol/L Normal 21-32 [facility] Comment on above: Order Comment: TEST: LIPID Added TO SPECIMEN at 215211/25/19 by [employer] Is patient fasting? UNKNOWN Performed By: #### L 500.90911, L500.58396, L500.04337, L500.19035 #### Test performed at: [address] [address] Creatinine [Mass/Vol] 1.120 mg/dL High 0.550-1.020 [facility] Comment on above: Order Comment: TEST: LIPID Added TO SPECIMEN at 215211/25/19 by [employer] Is patient fasting? UNKNOWN Performed By: #### L 500.45114, L500.59661, L500.21198, L500.45991 #### Test performed at: [address] [address] Glucose [Mass/Vol] 94 mg/dL Normal 70-99 [facility] Comment on above: Order Comment: TEST: LIPID Added TO SPECIMEN at 215211/25/19 by [employer] Is patient fasting? UNKNOWN Result Comment: Fast ing GLUCOSE reference range has been updated per (ADA) [place] [employer]'s recommendation. 12/23/2018 Performed By: #### L 500.93007, L500.97835, L500.18500, L500.42391 #### Test performed at: [address] [address] Potassium [Moles/Vol] 5.1 mmol/L Normal 3.5-5.1 [facility] Comment on above: Order Comment: TEST: LIPID Added TO SPECIMEN at 215211/25/19 by [employer] Is patient fasting? UNKNOWN Performed By: #### L 500.26294, L500.12148, L500.28095, L500.74143 #### Test performed at: [address] [address] Protein [Mass/Vol] 7.1 g/dL Normal 6.4-8.2 [facility] Comment on above: Order Comment: TEST: LIPID Added TO SPECIMEN at 215211/25/19 by [employer] Is patient fasting? UNKNOWN Performed By: #### L 500.45614, L500.14251, L500.00516, L500.60719 #### Test performed at: [address] [address] Sodium [Moles/Vol] 138 mmol/L Normal 136-145 [facility] Comment on above: Order Comment: TEST: LIPID Added TO SPECIMEN at 215211/25/19 by [employer] Is patient fasting? UNKNOWN Performed By: #### L 500.97831, L500.30900, L500.23604, L500.19590 #### Test performed at: [address] [address] Urea nitrogen [Mass/Vol] 23 mg/dL High 7-18 [facility] Comment on above: Order Comment: TEST: LIPID Added TO SPECIMEN at 215211/25/19 by [employer] Is patient fasting? UNKNOWN Performed By: #### L 500.25383, L500.66699, L500.23925, L500.56081 #### Test performed at: [place] [address] GFR ESTIMATEon 11-25-2019 IF AMER 60 Normal > 60 [facility] Comment on above: Order Comment: [...] for clinical interpretation. Performed By: #### L 500.60463, L500.73424, L500.00989, L500.85887 #### Test performed at: [place] [address] IF non-AFR AMER 49 Low > 60 [facility] Comment on above: Order Comment: TEST: LIPID Added TO SPECIMEN at 215211/25/19 by [employer] Is patient fasting? UNKNOWN Performed By: #### L 500.43425, L500.77130, L500.16067, L500.01718 #### Test performed at: [place] [address] LIMIT UR TOXon 11-25-2019 UR AMPH Negative Normal Negative [facility] Comment on above: Order Comment: CONSE RVATION Result Comment: CUTO [id number] Performed By: #### L 600.42975 #### Test performed at: [address] [place] [address] UR PARMINDER Negative Normal Negative [facility] Comment on above: Order Comment: CONSE RVATION Result Comment: CUTO TL=433 Performed By: #### L 600.13723 #### Test performed at: [place] [address] UR CITLALY Negative Normal Negative [facility] Comment on above: Order Comment: CONSE RVATION Result Comment: CUTO ZE=247 Performed By: #### L 600.26827 #### Test performed at: [place] [address] UR BUPREN/NORBU Negative Normal Negative [facility] Comment on above: Order Comment: CONSE RVATION Result Comment: CUTO FF=10 Performed By: #### L 600.48924 #### Test performed at: [place] [address] UR BERE/THC Negative Normal Negative [facility] Comment on above: Order Comment: CONSE RVATION Result Comment: CUTO FF=50 Performed By: #### L 600.29660 #### Test performed at: [place] [address] UR ARCHANA Positive Critically abnormal Negative [facility] Comment on above: Order Comment: CONSE RVATION Result Comment: CUTO KX=812 Performed By: #### L 600.53654 #### Test performed at: [place] [id number] UR ECSTASY Negative Normal Negative [facility] Comment on above: Order Comment: CONSE RVATION Result Comment: CUTO YY=445 Performed By: #### L 600.45280 #### Test performed at: [place] [address] UR FENTANYL Negative Normal Negative [facility] Comment on above: Order Comment: CONSE RVATION Result Comment: CUTO RE=[id number] Performed By: #### L 600.00552 #### Test performed at: [address] [address] UR METH Negative Normal Negative [facility] Comment on above: Order Comment: CONSE RVATION Result Comment: CUTO JN=693 Performed By: #### L 600.72560 #### Test performed at: [place] [address] UR OPIAT Positive Critically abnormal Negative [facility] Comment on above: Order Comment: CONSE RVATION Result Comment: CUTO MQ=195 Performed By: #### L 600.88376 #### Test performed at: [place] [address] UR OXYCOCONE Negative Normal Negative [facility] Comment on above: Order Comment: CONSE RVATION Result Comment: CUTO JB=925 Performed By: #### L 600.11545 #### Test performed at: [place] [address] UR PCP Negative Normal Negative [facility] Comment on above: Order Comment: CONSE RVATION Result Comment: CUTO FF=25 Performed By: #### L 600.29722 #### Test performed at: [place] [address] PH TOX 6.0 Normal 5.0-8.0 [facility] Comment on above: Order Comment: CONSE RVATION Performed By: #### L 600.98312 #### Test performed at: [address] [address] TOX COMMENT *PLEASE NOTE: Normal [facility] Comment on above: Order Comment: CONSE RVATION Result Comment: UNCO NFIRMED Toxicology results. For MEDICAL purposes only. Performed By: #### L 600.85403 #### Test performed at: [place] [address] ACUTE TOXICOLOGY PANEL, YANIRA Berrios 06-12-2019 Acetaminophen [Mass/Vol] <10.0 Normal 10.0 - 30.0 [facility] Comment on above: Performed By: #### D RUBL #### [facility] [address] [place] [address] Ethanol [Mass/Vol] mg/dL Normal [facility] Comment on above: Result Comment: FOR MEDICAL USE ONLY. . REF VALUES <10 Performed By: #### D RUBL #### [facility] [address] [place] [address] SALICYLATE <3 Normal 4 - 20 [facility] Comment on above: Performed By: #### D RUBL #### [facility] [address] [place] [address] BASIC METABOLIC PANELon 05-31 Anion gap [Moles/Vol] 12 mmol/L Normal 10 - 20 [facility] Comment on above: Performed By: #### B MP #### [facility] [address] [place] [address] Calcium [Mass/Vol] 9.4 mg/dL Normal 8.6 - 10.6 [facility] Comment on above: Performed By: #### B MP #### [facility] [address] [place] [address] Chloride [Moles/Vol] 107 mmol/L Normal 98 - 107 [facility] Comment on above: Performed By: #### B MP #### [facility] [address] [place] [address] Creatinine [Mass/Vol] 1.10 mg/dL High 0.50 - 1.05 [facility] Comment on above: Performed By: #### B MP #### [facility] [address] [place] [address] GFR- AM. 61 mL/min/1.73m2 Normal >60 [facility] Comment on above: Result Comment: CALC ULATIONS OF ESTIMATED GFR ARE PERFORMED USING THE MDRD STUDY EQUATION FOR THE IDMS-TRACEABLE CREATININE METHODS. CLIN CHEM 2007;53:766-72 Performed By: #### B MP #### [facility] [address] [place] [address] GFR-NON AM. 50 mL/min/1.73m2 Abnormal >60 [facility] Comment on above: Performed By: #### B MP #### [facility] [address] [place] [address] Glucose [Mass/Vol] 128 mg/dL High 74 - 99 [facility] Comment on above: Performed By: #### B MP #### [facility] [address] [place] [address] HCO3 (Bld) [Moles/Vol] 25 mmol/L Normal 21 - 32 [facility] Comment on above: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, Ultrasound-guided access to bilateral [...] Meds Acidophilus Oral Capsule; TAKE DIRECTED; Therapy: (Recorded:82Svy3195) to Recorded Dispense: 0 Days ; #: Sufficient Capsule; Refill: 0;For: Health Maintenance; EARL = N; Record; Last Updated By: Bernadette Arenas; 09/01/2015 1:18:49 PM Docusate Sodium 100 MG Oral Capsule; TAKE 1 CAPSULE TWICE DAILY; Therapy: (Recorded:[id number]) to Recorded Dispense: 0 Days ; #: [...] 3350 Oral Powder; USE DIRECTED NEEDED; Therapy: (Recorded:[id number]) to Recorded Dispense: 0 Days ; #: Sufficient GM; Refill: 0;For: Health Maintenance; EARL = N; Record; Last Updated By: Bernadette Arenas; 09/01/2015 1:18:50 PM Vitamin B1 100 MG TABS; TAKE 1 TABLET DAILY DIRECTED; Therapy: (Recorded:11Zhz6676) to Recorded Dispense: 0 Days ; #: [...] MG TABS; Take 1 tablet daily; Therapy: (Recorded:32Mpd6455) to Recorded Dispense: 0 Days ; #: [...] Oral Tablet; Take 1 tablet daily; Therapy: (Recorded:[id number]) to Recorded Dispense: 0 Days ; #: [...] (3) MG/3ML SOLN; USE DIRECTED NEEDED; Therapy: (Recorded:88Sjm8690) to Recorded Dispense: 0 Days ; #: Sufficient; Refill: 0; EARL = N; Record; Last Updated By: Bernadette Arenas; 09/01/2015 1:18:50 PM Gabapentin 300 MG Oral Capsule; USE DIRECTED NEEDED; Therapy: 10Jun2014 to (Evaluate:30Bbr1785) Recorded Dispense: 0 Days ; #: Sufficient Capsule; Refill: 0; EARL = N; Record; Last Updated By: Bernadette Arenas; 08/03/2015 4:04:31 PM GuaiFENesin 100 MG/5ML SYRP; USE DIRECTED NEEDED; Therapy: 03Aug2015 to Recorded Dispense: 0 Days ; #: Sufficient ML; Refill: 0; EARL = N; Record; Last Updated By: Bernadette Arenas; 08/03/2015 4:04:31 PM Lidocaine 5 % External Patch; APPLY DIRECTED; Therapy: (Recorded:80Nsx3084) to Recorded Dispense: 0 Days ; #: [...] 08/03/2015 4:04:31 PM Vitals Vital Signs Recorded: 13Cfv3507 12:51PM Heart Rate98 Fazaurnc563 Oqsnlaras74 Physical Exam Constitutional: General appearance is abnormal. [...] and time. Recent/remote memory as evidenced through kagg-gh-fcuv interaction and discussion appear grossly intact. Mood [...] pain; EARL = N; Verified Transmission to [facility]; Last Updated By: Mahamed Mcnamara; 11/18/2018 1:22:42 PM Physical Therapy Referral Evaluation and Treatment Evaluate AND Treat 2-3 times per week for 8 weeks Status: Hold For - Scheduling,Retrospective Authorization Requested for: [id number] Ordered;For: Cervical radicular pain; Ordered By: Myke Burdick Performed: Due: [id number]; Last Updated By: Brittany Rogers; 11/18/2018 1:22:07 PM MRI Cervical without Contrast; Status:Active; Requested for:04Dec2018; Perform:[facility];Ordered; For:Cervical radicular pain; [...] EST (Author) Electronically signed by : Myke Burdikc MD; Nov 20 2018 11:18AM EST (Author) Normal [email or web address] Initial Visit (Rheumatology) on 10-29-2018 Initial Visit [...] 2017. 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 Vitals Vital Signs Recorded: 29Oct2018 11:29AM Kkpfajkgfvz13.8 F Heart Rate93 Rtnfxhws343 Hvnccehmx64 Height5 ft 6 in Kfnlbf498 lb BMI Gowcqwybjx06.73 BSA Calculated1.9 Physical Exam General: appears well. [...] View; Status:Hold For - Scheduling; Requested for:29Oct2018; Perform:[facility]; Due:27Jan2019;Ordered; For:Cervical radicular [...] assay SARS-CoV-2 (COVID-19) Ag IA.rapid Ql (Resp) [facility] Work Phone: Vital Signs Date Time Vital Sign Value Performing Clinician Facility 12-11-2024 19:00-0400 Diastolic blood pressure 76 mm[Hg] Dr. Leonie Peterson MD Work Phone: [facility] 12-11-2024 19:00-0400 Heart rate 72 /min Dr. Leonie Peterson MD Work Phone: [facility] 12-11-2024 19:00-0400 Respiratory rate 16 /min Dr. Leonie Peterson MD Work Phone: [facility] 12-11-2024 19:00-0400 SaO2% (BldA) [Mass fraction] 96 % Dr. Leonie Peterson MD Work Phone: [facility] 12-11-2024 19:00-0400 Systolic blood pressure 148 mm[Hg] Dr. Leonie Peterson MD Work Phone: [facility] 12-11-2024 18:00-0400 Inhaled oxygen flow rate 2 L/min Dr. Leonie Peterson MD Work Phone: [facility] 12-11-2024 15:46-0400 Body mass index (BMI) [Ratio] 33.7 kg/m2 Dr. Leonie Peterson MD Work Phone: [facility] 12-11-2024 15:46-0400 Body weight [address] Leonie Peterson MD Work Phone: 9(744)953-904585 [place] [address] 12-11-2024 15:44-0400 Body height 167.[address] Leonie Peterson MD Work Phone: 0(354)843-977385 [place] [address] 12-11-2024 15:44-0400 Body temperature 97.4 [degF] Dr. Leonie Peterson MD Work Phone: 5(764)980-139285 [place] [address] 11-23-2024 17:05-0500 Body temperature 97.3 [degF] Dr. Leonie Peterson MD Work Phone: 6(634)383-857585 [place] [address] 11-23-2024 17:05-0500 Diastolic blood pressure 71 mm[Hg] Dr. Leonie Peterson MD Work Phone: 0(654)657-225285 [place] [address] 11-23-2024 17:05-0500 Heart rate 86 /min Dr. Leonie Peterson MD Work Phone: 9(252)738-436685 [place] [address] 11-23-2024 17:05-0500 Inhaled oxygen flow rate 2 L/min Dr. Leonie Peterson MD Work Phone: 9(041)410-981185 [place] [address] 11-23-2024 17:05-0500 Respiratory rate 20 /min Dr. Leonie Peterson MD Work Phone: 3(373)857-880385 [place] [address] 11-23-2024 17:05-0500 SaO2% (BldA) [Mass fraction] 99 % Dr. Leonie Peterson MD Work Phone: 7(470)643-819185 [place] [address] 11-23-2024 17:05-0500 Systolic blood pressure 115 mm[Hg] Dr. Leonie Peterson MD Work Phone: 5(959)835-437885 [place] [address] 11-23-2024 03:11-0500 Body mass index (BMI) [Ratio] 33 kg/m2 Dr. Leonie Peterson MD Work Phone: 1(136)805-485185 [place] [address] 11-23-2024 03:11-0500 Body weight [address] Leonie Peterson MD Work Phone: 7(700)267-535385 [place] [address] 11-21-2023 18:05-0500 Body temperature 97.1 [degF] Dr. Aquiles Jones Work Phone: [facility] 11-21-2023 18:05-0500 Diastolic blood pressure 82 mm[Hg] Dr. Aquiles Jones Work Phone: [facility] 11-21-2023 18:05-0500 Heart rate 83 /min Dr. Aquiles Jones Work Phone: [facility] 11-21-2023 18:05-0500 Respiratory rate 17 /min Dr. Aquiles Jones Work Phone: [facility] 11-21-2023 18:05-0500 SaO2% (BldA) [Mass fraction] 99 % Dr. Aquiles Jones Work Phone: [facility] 11-21-2023 18:05-0500 Systolic blood pressure 124 mm[Hg] Dr. Aquiles Jones Work Phone: [facility] 11-21-2023 16:54-0500 Inhaled oxygen flow rate 2 L/min Dr. Aquiles Jones Work Phone: [facility] 11-21-2023 11:32-0500 Body mass index (BMI) [Ratio] 34 kg/m2 Dr. Aquiles Jones Work Phone: [facility] 11-21-2023 11:32-0500 Body weight 95.[address] Aquiles Jones Work Phone: [facility] 11-21-2023 11:24-0500 Body height 167.[address] Aquiles Jones Work Phone: [facility] 11-10-2023 18:41-0500 Body height 167.[address] Aquiles Jones Work Phone: [facility] 11-10-2023 18:41-0500 Body mass index (BMI) [Ratio] 35 kg/m2 Dr. Aquiles Jones Work Phone: [facility] 11-10-2023 18:41-0500 Body temperature 97.3 [degF] Dr. Aquiles Jones Work Phone: [facility] 11-10-2023 18:41-0500 Body weight 98.[address] Aquiles Jones Work Phone: [facility] 11-10-2023 18:41-0500 Diastolic blood pressure 94 mm[Hg] Dr. Aquiles Jones Work Phone: [facility] 11-10-2023 18:41-0500 Heart rate 92 /min Dr. Aquiles Jones Work Phone: [facility] 11-10-2023 18:41-0500 Respiratory rate 16 /min Dr. Aquiles Jones Work Phone: [facility] 11-10-2023 18:41-0500 SaO2% (BldA) [Mass fraction] 99 % Dr. Aquiles Jones Work Phone: [facility] 11-10-2023 18:41-0500 Systolic blood pressure 182 mm[Hg] Dr. Aquiles Jones Work Phone: [facility] 08-12-2023 14:00-0500 Inhaled oxygen flow rate 2 L/min Dr. Leonie Peterson Work Phone: [facility] 08-12-2023 14:00-0500 SaO2% (BldA) [Mass fraction] 99 % Dr. Leonie Peterson Work Phone: [facility] 08-12-2023 13:28-0500 Body temperature 97.8 [degF] Dr. Leonie Peterson Work Phone: [facility] 08-12-2023 13:28-0500 Diastolic blood pressure 48 mm[Hg] Dr. Leonie Peterson Work Phone: [facility] 08-12-2023 13:28-0500 Heart rate 87 /min Dr. Leonie Peterson Work Phone: [facility] 08-12-2023 13:28-0500 Respiratory rate 18 /min Dr. Leonie Peterson Work Phone: 6(491)040-909985 [place] [address] 08-12-2023 13:28-0500 Systolic blood pressure 105 mm[Hg] Dr. Leonie Peterson Work Phone: 2(159)053-953185 [place] [address] 08-12-2023 04:00-0500 Body mass index (BMI) [Ratio] 30.3 kg/m2 Dr. Leonie Peterson Work Phone: 2(203)240-138785 [place] [address] 08-12-2023 04:00-0500 Body weight 85.[address] Leonie Peterson Work Phone: 4(560)106-197785 [place] [address] 08-05-2023 08:52-0500 Body height 167.[address] Leonie Peterson Work Phone: 0(304)853-523285 [place] [address] 08-05-2023 07:59-0500 Diastolic blood pressure 97 mm[Hg] Dr. Leonie Peterson Work Phone: 7(856)416-139385 [place] [address] 08-05-2023 07:59-0500 Heart rate 89 /min Dr. Leonie Peterson Work Phone: 5(551)250-151385 [place] [address] 08-05-2023 07:59-0500 Respiratory rate 16 /min Dr. Leonie Peterson Work Phone: 4(354)782-488185 [place] [address] 08-05-2023 07:59-0500 SaO2% (BldA) [Mass fraction] 98 % Dr. Leonie Peterson Work Phone: 5(026)962-911885 [place] [address] 08-05-2023 07:59-0500 Systolic blood pressure 112 mm[Hg] Dr. Leonie Peterson Work Phone: 0(032)625-731185 [place] [address] 08-05-2023 04:58-0500 Inhaled oxygen flow rate 2 L/min Dr. Leonie Peterson Work Phone: 5(009)420-142385 [place] [address] 08-05-2023 02:19-0500 Body height 167.[address] Leonie Peterson Work Phone: 3(002)319-659685 [place] [address] 08-05-2023 02:19-0500 Body mass index (BMI) [Ratio] 39.1 kg/m2 Dr. Leonie Peterson Work Phone: 0(910)239-871985 [place] [address] 08-05-2023 02:19-0500 Body temperature 96.9 [degF] Dr. Leonie Peterson Work Phone: 0(960)229-638685 [place] [address] 08-05-2023 02:19-0500 Body weight 109.[address] Leonie Peterson Work Phone: 1(203)020-051185 [place] [address] 06-04-2023 12:45-0400 Body height 167.[address] Leonie Peterson Work Phone: 2(424)042-789385 [place] [address] 06-04-2023 12:45-0400 Body temperature 98.6 [degF] Dr. Leonie Peterson Work Phone: 8(358)546-923085 [place] [address] 06-04-2023 12:45-0400 Diastolic blood pressure 88 mm[Hg] Dr. Leonie Peterson Work Phone: 9(951)067-186485 [place] [address] 06-04-2023 12:45-0400 Heart rate 89 /min Dr. Leonie Peterson Work Phone: 3(867)605-509085 [place] [address] 06-04-2023 12:45-0400 Inhaled oxygen flow rate 3 L/min Dr. Leonie Peterson Work Phone: 1(098)413-326385 [place] [address] 06-04-2023 12:45-0400 Respiratory rate 20 /min Dr. Leonie Peterson Work Phone: 1(930)728-756185 [place] [address] 06-04-2023 12:45-0400 SaO2% (BldA) [Mass fraction] 92 % Dr. Leonie Peterson Work Phone: 2(672)394-982585 [place] [address] 06-04-2023 12:45-0400 Systolic blood pressure 99 mm[Hg] Dr. Leonie Peterson Work Phone: 2(451)185-049785 [place] [address] 04-29-2023 14:12-0400 Body mass index (BMI) [Ratio] 35.4 kg/m2 Dr. Leonie Peterson Work Phone: 2(033)565-074685 [place] [address] 04-29-2023 14:12-0400 Body temperature 98.2 [degF] Dr. Leonie Peterson Work Phone: 7(120)943-789085 [place] [address] 04-29-2023 14:12-0400 Body weight 99.[address] Leonie Peterson Work Phone: 4(531)541-152185 [place] [address] 04-29-2023 14:12-0400 Diastolic blood pressure 82 mm[Hg] Dr. Leonie Peterson Work Phone: 9(473)862-985485 [place] [address] 04-29-2023 14:12-0400 Heart rate 78 /min Dr. Leonie Peterson Work Phone: 8(532)568-052085 [place] [address] 04-29-2023 14:12-0400 Respiratory rate 22 /min Dr. Leonie Peterson Work Phone: 5(241)509-203885 [place] [address] 04-29-2023 14:12-0400 Systolic blood pressure 128 mm[Hg] Dr. Leonie Peterson Work Phone: 0(918)727-412785 [place] [address] 04-13-2023 10:31-0400 Body height 167.[address] Leonie Peterson Work Phone: 7(099)021-719785 [place] [address] 04-13-2023 10:31-0400 Body mass index (BMI) [Ratio] 35.8 kg/m2 Dr. Leonie Peterson Work Phone: 5(902)137-354885 [place] [address] 04-13-2023 10:31-0400 Body temperature 97.9 [degF] Dr. Leonie Peterson Work Phone: 3(799)637-846785 [place] [address] 04-13-2023 10:31-0400 Body weight 100.[address] Leonie Peterson Work Phone: 8(123)547-343185 [place] [address] 04-13-2023 10:31-0400 Diastolic blood pressure 134 mm[Hg] Dr. Leonie Peterson Work Phone: 3(215)772-907285 [place] [address] 04-13-2023 10:31-0400 Heart rate 88 /min Dr. Leonie Peterson Work Phone: 9(721)177-128685 [place] [address] 04-13-2023 10:31-0400 Inhaled oxygen flow rate 3 L/min Dr. Leonie Peterson Work Phone: 1(856)651-615196 [place] [address] 04-13-2023 10:31-0400 Respiratory rate 16 /min Dr. Leonie Peterson Work Phone: 3(001)273-445985 [place] [address] 04-13-2023 10:31-0400 SaO2% (BldA) [Mass fraction] 96 % Dr. Leonie Peterson Work Phone: 5(105)106-775585 [place] [address] 04-13-2023 10:31-0400 Systolic blood pressure 181 mm[Hg] Dr. Leonie Peterson Work Phone: 1(412)820-002385 [place] [address] 02-15-2023 17:34-0400 Diastolic blood pressure 75 mm[Hg] Dr. Leonie Peterson Work Phone: 5(559)219-764885 [place] [address] 02-15-2023 17:34-0400 Heart rate 76 /min Dr. Leonie Peterson Work Phone: 5(338)347-438985 [place] [address] 02-15-2023 17:34-0400 Respiratory rate 14 /min Dr. Leonie Peterson Work Phone: 2(861)145-961485 [place] [address] 02-15-2023 17:34-0400 SaO2% (BldA) [Mass fraction] 99 % Dr. Leonie Peterson Work Phone: 5(505)100-149385 [place] [address] 02-15-2023 17:34-0400 Systolic blood pressure 106 mm[Hg] Dr. Leonie Peterson Work Phone: 1(879)852-818585 [place] [address] 02-15-2023 14:53-0400 Body mass index (BMI) [Ratio] 36.6 kg/m2 Dr. Leonie Peterson Work Phone: 6(758)148-698085 [place] [address] 02-15-2023 14:53-0400 Body temperature 98 [degF] Dr. Leonie Peterson Work Phone: 7(586)008-652085 [place] [address] 02-15-2023 14:53-0400 Body weight [address] Leonie Peterson Work Phone: 0(146)699-519385 [place] [address] 02-15-2023 13:00-0400 Body mass index (BMI) [Ratio] 35.6 kg/m2 Dr. Leonie Peterson Work Phone: 0(989)239-294085 [place] [address] 02-15-2023 13:00-0400 Body weight 100.[address] Leonie Peterson Work Phone: [facility] 02-15-2023 13:00-0400 Diastolic blood pressure 73 mm[Hg] Dr. Leonie Peterson Work Phone: [facility] 02-15-2023 13:00-0400 Heart rate 89 /min Dr. Leonie Peterson Work Phone: [facility] 02-15-2023 13:00-0400 Inhaled oxygen flow rate 3 L/min Dr. Leonie Peterson Work Phone: [facility] 02-15-2023 13:00-0400 Respiratory rate 18 /min Dr. Leonie Peterson Work Phone: [facility] 02-15-2023 13:00-0400 SaO2% (BldA) [Mass fraction] 9 % Dr. Leonie Peterson Work Phone: [facility] 02-15-2023 13:00-0400 Systolic blood pressure 124 mm[Hg] Dr. Leonie Peterson Work Phone: [facility] 10-22-2022 15:58-0500 Body height 167.64 cm [facility] 10-22-2022 15:58-0500 Body mass index (BMI) [Ratio] 33.9 kg/m2 [facility] 10-22-2022 15:58-0500 Body temperature 97 [degF] [facility] 10-22-2022 15:58-0500 Body weight 95.25 kg [facility] 10-22-2022 15:58-0500 Diastolic blood pressure 86 mm[Hg] [facility] 10-22-2022 15:58-0500 Heart rate 85 /min [facility] 10-22-2022 15:58-0500 Respiratory rate 18 /min [facility] 10-22-2022 15:58-0500 SaO2% (BldA) [Mass fraction] 100 % [facility] 10-22-2022 15:58-0500 Systolic blood pressure 122 mm[Hg] [facility] 07-30-2022 15:57-0400 Respiratory rate 18 /min [facility] 07-30-2022 15:57-0400 SaO2% (BldA) [Mass fraction] 97 % [facility] 07-30-2022 14:34-0400 Heart rate 98 /min [facility] 07-30-2022 14:03-0400 Inhaled oxygen flow rate 3 L/min [facility] 07-30-2022 12:33-0400 Body height 167.64 cm [facility] Work Phone: 07-30-2022 12:33-0400 Body mass index (BMI) [Ratio] 32.9 kg/m2 [facility] 07-30-2022 12:33-0400 Body temperature 97.8 [degF] [facility] 07-30-2022 12:33-0400 Body weight 92.53 kg [facility] 07-30-2022 12:33-0400 Diastolic blood pressure 93 mm[Hg] [facility] 07-30-2022 12:33-0400 Systolic blood pressure 140 mm[Hg] [facility] 04-13-2020 18:51-0400 Body Temperature 98.4 [degF] [facility] [place] 04-13-2020 18:51-0400 BP Diastolic 84 mm[Hg] [facility] [place] 04-13-2020 18:51-0400 BP Systolic 145 mm[Hg] [facility] [place] 04-13-2020 18:51-0400 Pulse (Heart Rate) 79 /min [facility] [place] 04-13-2020 18:51-0400 Pulse Oximetry 95 % [facility] [place] 04-13-2020 18:51-0400 Respiratory Rate 18 /min [facility] [place] 04-13-2020 09:30-0400 BMI (Body Mass Index) 16.94 kg/m2 [facility] [place] 04-13-2020 09:30-0400 Body weight 47.6 kg Tommie Odonnell [facility] PATRICIA Comment on above: pt states she has lost weight r/t daily cocaine use over the past year 04-13-2020 08:58-0400 Height 167.6 cm Tommie Longoria [facility] PATRICIA 06-12-2019 00:29-0400 Body temperature 37.0 degrees C [facility] Comment on above: Result Comment: NOTE: PATIENT RESULTS AR E NOT CORRECTED FOR TEMPERATURE. Performed By: #### V FPA3 #### [facility] [id number] [address] Encounters Encounter Date Encounter Type Care Provider Facility Start: 07-12-2025 End: 07-12-2025 ambulatory [facility] Facility:[facility] Start: 07-12-2025 Patient encounter procedure LEONIE [facility] Start: 06-22-2025 End: 06-22-2025 ambulatory CHRISTA FRANZ Facility:[facility] Start: 06-01-2025 End: 06-01-2025 [facility] Start: 05-11-2025 [facility] Start: 05-11-2025 End: 05-11-2025 ambulatory HAYLEE WANG Facility:[facility] Start: 04-09-2025 End: 04-09-2025 ambulatory ELI BRAGG Facility:[facility] Start: 03-23-2025 End: 03-23-2025 ambulatory CHRISTA FRANZ Facility:[facility] Start: 03-01-2025 End: 03-01-2025 [facility] Start: 02-23-2025 End: 02-23-2025 ambulatory CHRISTA FRANZ Facility:[facility] Start: 02-05-2025 ambulatory HAYLEE WANG Facil ity:[facility] Start: 02-05-2025 End: 02-05-2025 ambulatory HAYLEE WANG Facility:[facility] Start: 02-02-2025 End: 02-02-2025 ambulatory TRACEY GOINS Facility:[facility] Start: 01-01-2025 End: 01-01-2025 ambulatory ELI OLDER Facility:[facility] Start: 12-21-2024 End: 12-21-2024 ambulatory ELHAM DOMINGUEZ Facility:[facility] Start: 12-18-2024 End: 12-18-2024 ambulatory PONCE OLDER Facility:[facility] Start: 12-11-2024 End: 12-11-2024 Emergency department patient visit Titi Jesus Facility:[facility] Start: 12-11-2024 End: 12-11-2024 ambulatory PONCE OLDER Facility:[facility] Start: 12-10-2024 End: 12-10-2024 ambulatory [facility] Facility:[facility] Start: 11-23-2024 Non-patient / Non-visit Dr. Stephenie velasco MD -[facility] Work Phone: Start: 11-23-2024 Non-patient / Non-visit [facility]. [facility] Start: 11-22-2024 Non-patient / Non-visit Dr. Elizabeth Kenny MD [facility] Work Phone: Start: 11-21-2024 Non-patient / Non-visit Dr. Elizabeth Kenny MD [facility] Work Phone: Start: 11-20-2024 Non-patient / Non-visit Dr. Elizabeth Kenny MD [facility] Work Phone: Start: 11-20-2024 Non-patient / Non-visit Dr. Zeyad Urbina own [facility] Start: 11-19-2024 Non-patient / Non-visit Dr. Elizabeth Kenny MD [facility] Work Phone: Start: 11-19-2024 Non-patient / Non-visit Dr. Zeyad Urbina own [facility] Start: 11-18-2024 ambulatory Alexia Jeffery [facility] Start: 11-18-2024 Non-patient / [facility] Start: 11-17-2024 End: 11-17-2024 ambulatory Alexia Gil Facility:[facility] Start: 11-17-2024 End: 11-17-2024 Non-patient / Non-visit Dr. Alexia Gil MD [facility] Work Phone: Start: 11-17-2024 ambulatory Stephenie Yu [facility] Start: 11-17-2024 End: 11-23-2024 Evaluation and management of inpatient Stepheniegreg Yu Facility:[facility] Start: 11-17-2024 ambulatory [facility] Facility:[facility] Start: 11-09-2024 End: 11-09-2024 ambulatory MYKE CHONG Facility:[facility] Start: 10-30-2024 End: 10-30-2024 ambulatory ELI BRAGG Facility:[facility] Start: 10-27-2024 End: 10-27-2024 ambulatory YUE FRANKS [facility] Start: 09-21-2024 End: 09-21-2024 [facility] Start: 09-15-2024 End: 09-15-2024 ambulatory YUE FRANKS [facility] Start: 08-21-2024 ambulatory Leonie Ganta Facility:[facility] Start: 08-18-2024 End: 08-18-2024 ambulatory DOMINICK PAYTON Facility:[facility] Start: 08-14-2024 End: 08-14-2024 ambulatory LISS STUBBS Facility:[facility] Start: 08-07-2024 End: 08-09-[address] [facility] Start: 07-31-2024 End: 07-31-2024 ambulatory ELI [facility] Facility:[facility] Start: 07-29-2024 End: 07-29-2024 ambulatory HAYLEE WANG Facility:[facility] Start: 07-22-2024 Encounter for other preprocedural examination ELHAM DOMINGUEZ [facility] Start: 07-22-2024 End: 07-22-2024 ambulatory ELHAM RAMANITALO GARCIAVinnie Facility:[facility] Start: 07-21-2024 End: 07-21-2024 ambulatory TRACEY GOINS Facility:[facility] Start: 06-23-2024 End: 06-23-2024 ambulatory DOMINICK PAYTON Facility:[facility] Start: 04-29-2024 End: 04-29-2024 ambulatory Stef Donald Facility:[facility] Start: 04-14-2024 ambulatory Leonie Peterson [facility] Start: 03-30-2024 ambulatory Stef Bennett Facility :[facility] Start: 03-24-2024 End: 03-24-2024 ambulatory DOMINICK PAYTON Facility:[facility] Start: 12-17-2023 End: 12-17-2023 ambulatory DOMINICKUSMAN PAYTON Facility:[facility] Start: 11-21-2023 End: 11-21-2023 Emergency department patient visit Dr. Aquiles Jones Work Phone: [facility] Work Phone: Start: 11-10-2023 End: 11-10-2023 Emergency department patient visit Dr. Aquiles Jones Work Phone: [facility] Work Phone: Start: 11-05-2023 End: 11-05-2023 ambulatory DOMINICK RASHAUN BAUGHIT Facility:[facility] Start: 08-13-[address] Aquiles gupta Work Phone: [facility] Start: 08-12-2023 Non-patient / Non-visit Dr. Sanjuana Peterson Work Phone: [facility] Work Phone: Start: 08-12-2023 End: 08-12-2023 Non-patient / Non-visit Dr. Aquiles Jones Work Phone: [facility] Work Phone: Start: 08-11-2023 Non-patient / Non-visit Dr. Sanjuana Peterson Work Phone: [facility] Work Phone: Start: 08-10-2023 Non-patient / Non-visit Dr. Sanjuana Peterson Work Phone: [facility] Work Phone: Start: 08-09-2023 Non-patient / Non-visit Dr. Sanjuana Peterson Work Phone: [facility] Work Phone: Start: 08-08-2023 Non-patient / Non-visit Dr. Sanjuana Peterson Work Phone: [facility] Work Phone: Start: 08-07-2023 Non-patient / Non-visit Dr. Sanjuana Peterson Work Phone: [facility] Start: 08-07-2023 Non-patient / Non-visit Dr. Sanjuana Peterson Work Phone: [facility] Work Phone: Start: 08-06-2023 Non-patient / Non-visit Dr. Sanjuana Peterson Work Phone: [facility] Start: 08-06-2023 Non-patient / Non-visit Dr. Sanjuana Peterson Work Phone: [facility] Work Phone: Start: 08-05-2023 Non-patient / Non-visit Dr. Sanjuana Peterson Work Phone: [facility] Start: 08-05-2023 End: 08-12-2023 Evaluation and management of inpatient Dr. Leonie Peterson Work Phone: [facility]-Progressive Care Unit Work Phone: Start: 08-05-2023 End: 08-12-[address] Leonie Peterson Work Phone: [facility] Work Phone: Start: 06-24-2023 End: 06-24-[address] Lenoie Peterson Work Phone: [facility] Work Phone: Start: 06-24-2023 End: 06-24-[address] Leonie Peterson Work Phone: [facility]-Occupational Therapy Work Phone: Start: 06-20-[address] Luba Peterson Work Phone: [facility] Work Phone: Start: 06-17-2023 End: 06-17-[address] Leonie Peterson Work Phone: [facility] Work Phone: Start: 06-17-2023 End: 06-17-[address] Leonie Peterson Work Phone: [facility] Work Phone: Start: 06-04-2023 End: 06-04-2023 Emergency department patient visit Dr. Leonie Peterson Work Phone: [facility]Emergency Department Work Phone: Start: 05-29-[address] Luba Peterson Work Phone: [facility]Occupational [facility] Work Phone: Start: 05-23-2023 End: 05-23-[address] Leonie Peterson Work Phone: [facility] Work Phone: Start: 04-29-2023 End: 04-29-[address] Leonie Peterson Work Phone: [facility] Work Phone: Start: 04-13-2023 End: 04-13-2023 Emergency department patient visit Dr. Leonie Peterson Work Phone: [facility]Emergency Department Work Phone: Start: 02-15-2023 End: 02-15-2023 Emergency department patient visit Dr. Leonie Peterson Work Phone: [facility]Emergency [facility] Work Phone: Start: 02-15-[address] Leonie Peterson Work Phone: [facility] Start: 02-15-2023 End: 02-15-2023 Admission to same day surgery center Dr. Leonie Peterson Work Phone: [facility] Start: 02-15-2023 End: 02-15-[address] Leonie Peterson Work Phone: [facility] Work Phone: Start: 01-29-2023 End: 01-29-[address] Leonie Peterson Work Phone: [facility]-Pulmonary Services/Neurology Work Phone: Start: 01-14-2023 End: 01-14-[address] Leonie Peterson Work Phone: [facility] Work Phone: Start: 01-14-2023 End: 01-14-[address] Leonie Peterson Work Phone: [facility] Start: 10-22-2022 End: 10-22-2022 Emergency department patient visit [facility]Emergency Department Start: 09-19-2022 End: 09-19-2022 ambulatory [facility] Work Phone: Start: 09-19-2022 End: 09-19-2022 Discharged Recurring [facility]-Physical Therapy Start: 07-30-2022 End: 07-30-2022 Emergency department patient visit [facility]Emergency [facility] Start: 04-13-2020 End: 04-13-2020 Emergency department patient visit Tommie Odonnell Work Phone: [facility] Emergency Dept Comment on above: Cocaine abuse (HCC) (Primary Dx) Start: 12-12-2019 End: 12-13-2019 Emergency department patient visit LUCIANO LAWRENCE Facility:[facility] Start: 01-05-2019 End: 01-05-2019 Patient encounter procedure Myke Burdick Facility:[facility] Start: 12-12-2018 Patient encounter procedure Myke Burdick Facility:[facility] Start: 11-18-2018 Patient encounter procedure Myke Burdick Facility:[facility] Procedures Date Procedure Procedure Detail Performing Clinician [...] Phone: Start: 04-13-2020 Creatine kinase total A sriena Martinez Work Phone: Start: 04-13-2020 Drug screen [...] Activity Detail Author Start: 12-11-2024 End: 12-11-2024 [facility] Start: 12-11-2024 [facility] Start: 11-23-2024 Patient discharge [facility] Start: 11-22-2024 [facility] Start: 11-20-2024 [facility] Start: 11-19-2024 Physiotherapy of chest [facility] Start: 11-19-2024 Consultation [facility] Start: 11-17-2024 Respiratory secretion precautions [facility] Start: 11-17-2024 Following clinical pathway protocol [facility] Start: 11-17-2024 Assessment of risk of venous thromboembolism [facility] Start: 11-17-2024 Insertion of catheter into peripheral vein [facility] Start: 11-17-2024 Measuring intake and output [facility] Start: 11-17-2024 Oxygen therapy [facility] Start: 11-17-2024 Providing care according to standard [facility] Start: 11-17-2024 Provision of activity privileges [facility] Start: 11-17-2024 Referral to occupational therapist [facility] Start: 11-17-2024 Referral to service [facility] Start: 11-17-2024 [facility] Start: 11-17-2024 Admission procedure [facility] Start: 11-17-2024 Inhalation therapy procedure [facility] Start: 11-17-2024 [facility] Start: 11-21-2023 [facility] Start: 11-10-2023 [facility] Start: 08-12-2023 Patient discharge [facility] Start: 08-08-2023 Care planning and problem solving actions [facility] Start: 08-08-2023 Referral to occupational therapist [facility] Start: 08-08-2023 Referral to service [facility] Start: 08-08-2023 Physiotherapy of chest [facility] Start: 08-06-2023 End: 08-07-2023 [facility] Start: 08-05-2023 [facility] Start: 08-05-2023 Following clinical pathway protocol [facility] Start: 08-05-2023 Assessment of risk of venous thromboembolism [facility] Start: 08-05-2023 Care of central venous catheter [facility] Start: 08-05-2023 Inhalation therapy procedure [facility] Start: 08-05-2023 Insertion of catheter into peripheral vein [facility] Start: 08-05-2023 Introduction of urinary catheter [facility] Start: 08-05-2023 Measuring intake and output [facility] Start: 08-05-2023 Oxygen therapy [facility] Start: 08-05-2023 Providing care according to standard [facility] Start: 08-05-2023 Provision of activity privileges [facility] Start: 08-05-2023 Referral to service [facility] Start: 08-05-2023 [facility] Start: 08-05-2023 Hospital admission, emergency, from emergency room, medical nature [facility] Start: 08-05-2023 Troponin I measurement [facility] Start: 08-05-2023 Verification routine [facility] Start: 08-05-2023 Admission procedure [facility] Start: 08-05-2023 CT angiography of chest with contrast CTA Chest W/WO Contrast [facility] Start: 08-05-2023 [facility] Start: 04-13-2023 Plain x-ray of pelvis and lower extremity HIP, UNI W/ Pelvis 2-3 Views [facility] Start: 04-13-2023 XR Pelvis and Hip Views [facility] Start: 01-29-2023 Physiotherapy of chest [facility] Start: 01-14-2023 Acute hepatitis 2000 panel - Serum [facility] Start: 01-14-2023 Angiotensin converting enzyme [Enzymatic activity/volume] in Serum or Plasma [facility] Start: 01-14-2023 Ceruloplasmin [Mass/volume] in Serum or Plasma [facility] Start: 01-14-2023 Copper [Moles/volume] in Serum or Plasma [facility] Start: 01-14-2023 Haptoglobin [Mass/volume] in Serum or Plasma [facility] Start: 01-14-2023 Hepatitis A virus Ab panel - Serum [facility] Start: 01-14-2023 Hepatitis B virus genotype [Identifier] in Serum or Plasma by SHEELA with probe detection [facility] Start: 01-14-2023 Hepatitis C virus RNA assay [facility] Start: 01-14-2023 Smooth muscle Ab [Presence] in Serum [facility] Start: 01-14-2023 [facility] Start: 07-30-2022 [facility] Start: 05-31-2020 Influenza vaccination Flu vaccine (#1) [place] Start: 01-19-2006 Screening for malignant neoplasm of breast Breast cancer screen [place] Start: 01-19-2006 Screening for malignant neoplasm of colon Colon cancer screen colonoscopy [place] Start: 01-19-2006 Shingles Vaccine (1 of 2) Shingles Vaccine (1 of 2) [place] Start: 1996 Lipid panel Lipid screen [place] Start: 01-19-1977 Screening for malignant neoplasm of cervix Cervical cancer screen [place] Start: 01-19-1975 DTaP/Tdap/Td vaccine (1 - Tdap) DTaP/Tdap/Td vaccine (1 - Tdap) [place] Start: 01-19-1971 HIV screening HIV screen [place] Start: 1956 Creatinine measurement Creatinine monitoring [place], [place] Start: 1956 Hepatitis C screening Hepatitis C screen [place] Start: 1956 Potassium monitoring Potassium monitoring [place] Hepatic function panel [facility] Hepatitis A virus Ab [Presence] in Serum [facility] Hepatitis A virus Ig M Ab [Presence] in Serum [facility] Hepatitis B core ant ibody measurement, IgM type [facility] Hepatitis B surface antigen measurement [facility] Hepatitis C antibody measurement [facility] Hepatitis C virus ge notype [Identifier] in Blood by SHEELA with probe detection [facility] Liver stiffness by US.transient elastography [facility] Neutrophil cytoplasm ic Ab.classic [Units/volume] in Serum [facility] P-ANCA measurement [facility] Patient Education [facility] Work Phone: Patient referral [facility] Work Phone: PCR for Hepatitis C [facility] T4 free measurement [facility] Thyroid stimulating hormone measurement [facility] Triiodothyronine, fr ee measurement [facility] Immunizations Immunization Date Immunization Notes Care Provider Fa luis 10-19-2021 Covid (Pfizer) Dr. Leonie nuñez Work Phone: [facility] 2021 Covid (Pfizer) Dr. Leonie nuñez Work Phone: [facility] 12-23-2020 Covid (Pfizer) Dr. Leonie nuñez Work Phone: [facility] 08-17-2015 pneumococcal polysaccharide vaccine, [address] Leonie Peterson Work Phone: [facility] Payers Date Payer Category Payer Self-pay [id number] 2021 Medicare [id number] 2017 Medicaid [id number] 2017 Medicare [id number] 2016 Unknown [facility] MEDICAID [id number] 2016-Present [phone] CLAIMS DEPARTMENT [address] [place] [address] [id number] 1956 Unknown [id number] 1956 Unknown [id number] 1956 Unknown [id number] 2..[id number] 1956 Unknown [id number] [id number] Medicare [id number] Unknown [id number] [id number] Unknown [id number] 2.16.840.1.119067.3.579.2.462 Unknown [id number] 2.16.840.1.027057.3.579.2.462 Unknown [id number] 2.16.840.1.724644.3.579.2.462 Unknown [id number] 2.16.840.1.298088.3.579.2.462 Unknown [id number] 2.16.840.1.978934.3.579.2.462 Unknown [id number] 2.16.840.1.128855.3.579.2.462 Unknown [id number] 2.16.840.1.754523.3.579.2.462 Unknown [id number] 2.16.840.1.308932.3.579.2.462 Unknown [id number] 2.16.840.1.135417.3.579.2.462 Unknown [id number] 2.16.840.1.782174.3.579.2.462 Unknown [id number] 2.16.840.1.481156.3.579.2.462 Unknown [id number] 2.16.840.1.739022.3.579.2.462 Unknown [id number] 2.16.840.1.754467.3.579.2.462 Unknown [id number] 2.16.840.1.920941.3.579.2.462 Unknown [id number] 2.16.840.1.712746.3.579.2.462 Unknown [id number] 2.16.840.1.190469.3.579.2.462 Unknown [id number] 2.16.840.1.239489.3.579.2.462 Unknown [id number] [id number] Social History Date Type Detail Facility Start: 04-13-2020 Tobacco smoking stat [facility] Current every day smoker [place] History of tobacco use Cigarette Sm[place] Start: 04-13-2020 Cigarettes smoked current (pack per day) - Reported [place] Start: 04-13-2020 Tobacco use and exposure Never used [place] Start: 04-13-2020 Alcohol intake Current drinke r of alcohol (finding) [place] Sex Assigned At Not on file [place] Exposure to SARS-CoV -2 (event) Not sure [place] Start: 07-30-2022 End: 11-21-2023 Tobacco smoking status NHIS Unknown if ever smoked [facility] Start: 09-12-[address] [facility] Start: 09-12-[address] [facility] Start: 02-08-[address] [facility] Start: 1955 Sex Assigned At Female [facility] Start: 12-11-2024 Tobacco smoking stat us NHIS Ex-smoker (finding) [facility] Start: 12-11-2024 Sex Female (finding) [facility] Medical Equipment Procedure Code Equipment Code Equipment Origin al Text Equipment Identifier Dates Colonoscopy Ligation clip, metallic [id number] [facility] Start: 04-29-2024 Goals Date Patient Goal Desired Activity /State Functional Status Date Assessment Result Facility 11-23-[address] [facility] Work Phone: 08-12-2023 Functional status Ambulates;Bathroom Priv ilege [facility] Work Phone: Mental Status Date Assessment Result Facility 12-11-2024 Cognitive function Level Of Cons ciousness Awake;Alert;Appropriate;Follow s Commands [facility] Work Phone: 11-23-2024 Cognitive function Voice/Name [facility] Work Phone: 08-12-2023 Cognitive function Voice/Name [facility] Work Phone: 08-05-2023 Cognitive function Voice/Name [facility] Work Phone: 10-22-2022 Cognitive function Level Of Cons ciousness Awake;Alert;Appropriate;Follow s Commands [facility] Work Phone: Clinical Notes 10-22-2022 to 07-12-2025 Note Date & Type Note Facility 07-12-2025 Note [facility] 06-22-2025 Note [facility] 06-01-2025 Note [facility] 05-11-2025 Note [facility] 05-11-2025 Note [facility] 04-16-2025 Note [facility] 04-09-2025 Note [facility] 03-23-2025 Note [facility] 03-01-2025 Note [facility] 02-05-2025 Note [facility] 02-05-2025 Note [facility] 01-01-2025 Note [facility] 12-21-2024 Note [facility] 12-18-2024 Note [facility] 12-11-2024 Discharge summary [facility] 12-11-2024 Radiology Diagnostic study note [facility] Imaging Services [address] [place], [place] [address] CTA Chest W/WO Contrast MR#: [id number] Acct: [id number] Name: DIANNE ALVES Rep #: [id number] : 1955 F 69 From: Xiomara Do MD PCP: Dr. Leonie Peterson MD Status: REG E R Study:CTA Chest W/WO Contrast Date of Exam: 12/11/24 Exam# [id number] Ordering Dr: Remedios Jesus MD PROCEDURE: CTA [...] Peterson MD; Dr. Titi Jesus MD ~ Ict Analyst: Signed [facility] 12-11-2024 Discharge summary Note Date/Time December 11, 2024 7:36pm [facility] Medical Records Department [address] [place] [address] Emergency Department Summary 12/11/24 MR#: [id number] Acct: [id number] Name: DIANNE ALVES Rep #:[id number] : 1955 69 From: Titi Jesus MD PCP: Dr. Leonie Peterson MD Status:REG E R Location: ED HPI History of Present Illness Chief Complaint: Abn Labs Informant: patient Onset/Context/Timing Onset: Days Context: Gradual Onset Timing: Continuous Current Severity: Mild Maximum Severity: Mild Narrative Narrative: 69-year-old female history of prior OK, hep C, COPD, hypertension, prior lower extremity [...] similar symptoms: No Recent Illness/Hospitalization: Yes PFSH [facility] Medical History Type 2 acute myocardial infarction [...] all 4 extremities. 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 Equal symmetrical radial pulses. Dorsi plantarflexion [...] % (Auto) 49.1 Lymph % (Auto) 37.9 [place] % (Auto) 7.5 Eos % (Auto) 4.8 [...] rhythm rate 86 no acute signs of OK nor ischemia. Discharge Plan Triage Chief Complaint: [...] with your doctor as needed. Print Language: Mongolian Disposition Disposition: Home, Self Care What to do if you have Problems For any increased pain, shortness of breath, bleeding, nausea or vomiting, chestpain, or any unexpected problems, contact your Primary Care Provider. Call [facility] ([phone]) or report to the closest Emergency Room. Call 911 if necessary. 12/11/241935 <Electronically signed by Titi Jesus MD> Cosigner Signature (if applicable): CC: Dr. Leonie Peterson MD ~ Signed [facility] Work Phone: 1(239) 398-613103-14-2025 [facility]03-14-20[facility] 11-23-2024 [facility] Medical Records Department [address] [place] [address] Discharge Summary 11/23/24 1458 MR#: [id number] Acct: [id number] Name: DIANNE ALVES Rep #: [id number] : 1955 69 From: Stephenie Yu MD PCP: Dr. Leonie Peterson MD Status:ADM IN Location: [place] [address] Providers Date of Admission: 11/17/24 Date of Discharge: 11/23/24 Primary Care Physician: Dr. Leonie Peterson MD Consultations 11/19/24 09:34 Consult: Video Games Storywriter / Pulmonary Medicine Routine Consulting Provider: Intensivists/Pulmonary [...] cannula chronically, GERD, hep C who presented [facility] ED 09/16/2025 due to shortness of breath [...] 14.8, Hct 46.5, MCV (more content not included)...[facility]02-18-2025 Evaluation note* Diagnosis Onset Date Resolution Status Admit Date Influenza A acute October 2:58pm Acute on chronic hypoxic respiratory failure resolved October 2:58pm Type 2 acute myocardial infarction inactive November 17 2:58pm [facility] Work Phone: 1(853) 664-436102-10-2025 [facility] 10-27-2024 NoteHNO ID: [id number] Author: YUE FRANKS PA-C Service: ? Author Type: Physician Supply Chain Manager Type: Progress Notes Filed: 10/27/2024 10:59 Note [...] with any concerns. [facility]2024 NoteHNO ID: [id number] Author: YUE FRANKS PA-C Service: ? Author Type: Physician Supply Chain Manager Type: Progress Notes Filed: 09/15/2024 11:13 Note [...] at that time. [facility]-2024 NoteHNO ID: [id number] Author: DOMINICK PAYTON MD Service: ? Author [...] AND Elbow Surgeon Department of Orthopaedic Surgery [facility]11-19-2024 NoteHNO ID: [id number] Author: DIOGENES VARELA Tech Service: ? Author Type: Camera Person Type: Progress Notes Filed: 08/19/2024 08:50 Note [...] Negative for diabetic associated symptoms HEMATOLOGY: Clots [facility]11-15-2024 [facility]-10-2024 NoteHNO ID: [id number] Author: TALON BRITT MD Service: General Internal [...] II avoid nephrotoxic drugs Discharge home with [facility] Med reviewed PERTINENT ROS: All other reviewed [...] organomegaly EXTREMITIES: no edema SIGNATURE: Talon Britt [facility] HospitalHaxrteyl33-61-1383 NoteHNO ID: [id number] Author: TALON BRITT MD Service: General Internal [...] organomegaly EXTREMITIES: no edema SIGNATURE: Talon Britt [facility] HospitalEzubhcbs09-25-2874 NoteHNO ID: [id number] Author: ISHAAN WALTERS MD Service: ? Author [...] August 07, 2024 TIME: 4:48 PM CSN: [id number] NoteHNO ID: [id number] Author: DAIJA LEDEZMA RT(Elham) Service: ? Author [...] PATIENT PRESENTS WITH AN IMPLANTABLE OR ATTACHED BAKER CHEF: No RADIOLOGY DEPARTMENT: General X-ray: Exam(s) Completed: Upper Extremity X-Ray(s): Shoulder, AP / TRUE AP left PERIPHERAL IV DATA: Not applicable SIGNED BY: RT Aysha(R) August 07, 2024 4:29 PMBrown Memorial HospitalOnacfphm20-73-5959 NoteHNO ID: [id number] Author: ESTEVAN MUNGUIA APRN.CRNA Service: Anesthesiology Author Type: Nurse Boom Master Type: Anesthesia Procedure Notes Filed: 08/07/2024 13:11 Note Text: ANESTHESIOLOGY PROCEDURE NOTE Airway General Information Procedure Start Time/Medication Administration: 08/07/2024 1:01 PM Procedure End Time: 08/07/2024 1:10 PM Patient location during procedure: OR Timeout Performed Pre-procedure: timeout performed Consent Obtained: Yes Patient identity confirmed: arm band Staffing PHILANTHROPY OFFICER: Estevan Munguia APRN.PHILANTHROPY OFFICER Performed by: LEX Indications and Patient Condition [...] no Airway not difficult SIGNATURE: Estevan Munguia APRN.PHILANTHROPY OFFICER PATIENT NAME: Dianne Alves DATE: August 07, 2024 TIME: 1:10 PM CSN: [id number] [facility]10-30-20[facility]25-20[facility]10-22-2024 Note [facility]09-25-2024 NoteHNO ID: [id number] Author: DOMINICK PAYTON MD Service: ? Author [...] AND Elbow Surgeon Department of Orthopaedic Surgery [facility]07-31-2024 [facility] Medical Records Department [address] [place] [address] History Physical Exam 04/29/24912 MR#: [id number] Acct: [id number] Name: DIANNE ALVES Rep #: [id number] : 1955 69 From: Stef Friend DO PCP: Dr. Leonie Peterson MD Status:[facility] Location: [address] - General General Date of Admission: [...] cramping, chest pain or shortness of breath. [facility] Medical History (Updated 04/27/24 @ 10:49 by [...] sweating, cold or heat (more content not included)...[facility]06-25-2024 NoteO ID: [id number] Author: DOMINICK PAYTON MD Service: ? Author [...] AND Elbow Surgeon Department of Orthopaedic Surgery [facility]06-25-2024 NoteHNO ID: [id number] Author: LYNNE PEÑA LPN Service: ? Author Type: LICENSED NURSE Type: Progress Notes Filed: 03/24/2024 10:56 Note Text: Injection prepared per Dr. Payton's order and handed directly to him. Injection site: left shoulder Lynne Peña [facility]-2024 NoteHNO ID: [id number] Author: DOMINICK PAYTON MD Service: ? Author [...] AND Elbow Surgeon Department of Orthopaedic Surgery [facility]03-19-2024 NoteHNO ID: [id number] Author: SHADY TAMAYO Tech Service: ? Author Type: Camera Person Type: Progress Notes Filed: 12/17/2023 10:50 Note [...] for excessive bleeding, clots, bleeding disorders.[facility]02-11-2024 Discharge summary Author Isidro Dominguez [facility] November 10, 2023 11:08pm Note Date/Time November 10, 2023 6:57pm [facility] Medical Records Department [address] [place] [address] Emergency Department Summary 11/10/23 MR#: [id number] Acct: [id number] Name: DIANNE ALVES Rep #:[id number] : 1955 68 From: Isidro Dominguez MD [...] happened about 5 or 6 hours ago. [facility] Medical History Alcohol abuse Chronic hepatitis C [...] your Primary Care Provider. Call [facility] ([phone]) or report to the closest Emergency Room. Call 911 if necessary. 11/10/232307 <Electronically signed by Isidro Dominguez MD> Cosigner Signature (if applicable): CC: Dr. Leonie Peterson MD ~ Signed [facility] Work Phone: 1(869) 153-894602-06-2024 NoteHNO ID: [id number] Author: LYNNE PEÑA LPN Service: ? Author Type: LICENSED NURSE Type: Progress Notes Filed: 11/13/2023 13:13 Note Text: Injection prepared per Dr. Payton's order and handed directly to him. Injection site: left shoulder Lynne Peña [facility]02-06-2024 NoteHNO ID: [id number] Author: DOMINICK PAYTON MD Service: ? Author [...] AND Elbow Surgeon Department of Orthopaedic Surgery [facility]02-06-2024 NoteHNO ID: [id number] Author: DIOGENES VARELA Tech Service: ? Author Type: Camera Person Type: Progress Notes Filed: 11/13/2023 13:13 Note Text: REVIEW OF SYSTEMS: GENERAL: Well developed, well nourished. No acute distress PAIN: Negative for pain, history of chronic pain or current treatment for chronic pain conditions CARDIOVASCULAR: Negative for chest pain, leg swelling and palpations. MSK: Negative for joint swelling SKIN: Rash yes NEURO: Numbness/tingling of extremties ENDOCRINE: Negative for diabetic associated symptoms HEMATOLOGY: Clots [facility]11-13-2023 Discharge summary Author Shady Burris [facility] August 12, 2023 1:42pm Note Date/Time August 12, 2023 1:33pm [facility] Medical Records Department [address] [place] [address] Transfer to [facility] MR#: [id number] Acct: [id number] Name: DIANNE ALVES Rep #:[id number] : 1955 68 From: Shady nichole DO PCP: Dr. Aquiles Jones MD Status:ADM I NO Certification of patient admission REQUIRED AT TIME OF ADMISSION. I CERTIFY THAT POST-HOSPITAL F SERVICES ARE REQUIRED TO BE GIVEN ON AN IN-PATIENT BASIS BECAUSE OF THE ABOVE NAMED PATIENT'S NEED FOR [facility] CARE ON A CONTINUING BASIS FOR THE CONDITION(S) FOR WHICH HE/SHE WAS RECEIVING IN-PATIENT HOSPITAL SERVICES PRIOR TO HIS/HER TRANSFER TO THE [facility]. 08/12/23 1342<Electronically signed by Shady Burris DO> [...] specified health status Plan Patient presented to [facility] on 08/05/2023 from [facility] with chest pain. Hospital course as [...] debility: Patient came to the ED from [facility]. PT/OT/case management followed during this hospitalization. Patient was stable for discharge back to [facility] on 08/12. Patient notably did require oxycodone [...] in before D/C Order can be placed): Residential Facility Charges/Coding Visit Charges Inpatient E&M: 25753 Disch Hosp >30min (1) Chest pain Qualifiers: Chest pain type: unspecified Qualified Code(s): R07.9 - Chest pain, unspecified 08/12/23 1342 <Electronically signed by Shady Burris DO> Cosigner Signature (if applicable): CC: Dr. Miguelina Castanon MD; Dr. Woodrow Cardenas DO; Dr. Aquiles Jones MD; Dr. Julio Duong MD ~ [facility] Work Phone: 1(900) 764-317611-13-2023 Consult note Author Melvin West [facility] August 12, 2023 1:37pm Note Date/Time August 12, 2023 1:37pm [facility] Medical Records Department [address] [place] [address] Counseling Note - Pharmacy 08/12/23 1337 MR#: [id number] Acct: [id number] Name: LONGDIANNE STACEY Rep #:[id number] : 1955 68 From: Melvin West PCP: Dr. Aquiles Jones MD Status:ADM I NO Y Location: [place] [address] Pharmacy [place] Med Reconciliation Pharmacy Service has performed discharge [...] Signature (if applicable): Date CC: ~ Signed [facility] Work Phone: 1(452) 911-589211-13-2023 Discharge summary Author Shady Burris [facility] August 12, 2023 1:28pm Note Date/Time August 12, 2023 1:22pm [facility] Medical Records Department [address] [place] [address] Instructions for Home/Discharge Instructions 08/12/23 1321 MR#: [id number] Acct: [id number] Name: DIANNE ALVES Rep #:[id number] : 1955 68 From: Shady nichole DO [...] in before D/C Order can be placed): Residential Facility 08/12/23 1328<Electronically signed by Shady Burris DO>Sahdy Burris DO CC: Dr. Miguelina Castanon MD; Dr. Woodrow Cardenas DO; Dr. Aquiles Jones MD; Dr. Julio Duong MD ~ Signed [facility] Work Phone: 1(485) 582-536111-12-2023 Progress note Author Julio Duong [facility] August 11, 2023 3:12pm Note Date/Time August 11, 2023 3:11pm [facility] Medical Records Department [address] [place] [address] Progress Note - Hospitalist 08/11/23 1508 MR#: [id number] Acct: [id number] Name: DIANNE ALVES Rep #:[id number] : 1955 68 From: Julio Wilkins PCP: Dr. Aquiles Jones MD Status:ADM I NO Location: [place] [address] Reason for Visit Reason for Visit: Diagnoses [...] (Auto) 40.1 L, Lymph % (Auto) 44.2 H,[place] % (Auto) 8.1, Eos % (Auto) 6.7 [...] abuse with chronic hepatitis C: Reportedly clean [facility] 03/2020 with history of crack and [...] is for the patient to return to [facility], however she will require precertification before that. [...] authorization afterwards. Charges/Coding Visit Charges Inpatient E&M: 24079 Subs Hosp L2 08/11/231510 <Electronically signed by Julio Duong MD> Cosigner Signature (if applicable): CC: ~ Signed ADDENDUM by Dr. Julio Duong MD on 08/11/23 at 1512 Addendum Patient had hyperkalemia K6.2. Kayexalate was given. Repeat potassium 5.8. Patient creatinine 1.43 estimated creatinine clearance 35.7, CKD stage IIIb 08/11/231511<Electronically signed by Julio Duong MD> Cosigner Signature (if applicable): cc: ~* Signed [facility] Work Phone: 1(994) 241-511911-11-2023 Progress note Author Julio Duong [facility] August 10, 2023 2:25pm Note Date/Time August 10, 2023 2:25pm [facility] Medical Records Department [address] [place] [address] Progress Note - Hospitalist 08/10/231421 MR#: [id number] Acct: [id number] Name: DIANNE ALVES Rep #:[id number] : 1955 68 From: Julio Wilkins PCP: Dr. Aquiles Jones MD Status:ADM I NO Location: [place] [address] Reason for Visit Reason for Visit: Diagnoses [...] is for the patient to return to [facility], however she will require precertification before that. [...] authorization afterwards. Charges/Coding Visit Charges Inpatient E&M: 54932 Subs Hosp L2 08/10/23 1426 <Electronically signed by Julio Duong MD> Cosigner Signature (if applicable): CC: ~ Signed [facility] Work Phone: 1(601) 421-550911-10-2023 Progress note Author Julio Duong [facility] August 09, 2023 5:22pm Note Date/Time August 09, 2023 5:22pm [facility] Medical Records Department [address] [place] [address] Progress Note - Hospitalist 08/09/23 1719 MR#: [id number] Acct: [id number] Name: DIANNE ALVES Rep #:[id number] : 1955 68 From: Julio Wilkins PCP: Dr. Aquiles Jones MD Status:ADM I NO Location: [place] [id number]- 1 Reason for Visit Reason for Visit: [...] is for the patient to return to [facility], however she will require precertification before that. [...] authorization afterwards. Charges/Coding Visit Charges Inpatient E&M: 89245 Subs Hosp L2 08/09/23 1722 <Electronically signed by Julio Duong MD> Cosigner Signature (if applicable): CC: ~ Signed [facility] Work Phone: 1(216) 902-677611-09-2023 Progress note Author Julio Duong [facility] August 08, 2023 5:35pm Note Date/Time August 08, 2023 5 :36pm [facility] Medical Records Department [facility] [place] [address] Progress Note - Hospitalist 08/08/23 1731 MR#: [id number] Acct: [id number] Name: DIANNE ALVES Rep #:[id number] : 1955 68 From: Julio Wilkins PCP: Dr. Aquiles Jones MD Status:ADM I NO Location: [place] [address] Reason for Visit Reason for Visit: Diagnoses [...] 11:19 EST Reading Location ID and State: [facility] / [place] Tel , Service support , Physical Exam [...] with chronic hepatitis C: Reportedly clean si ide 03/2020 with history of crack and cocaine [...] is for the patient to return to [facility], however she will require precertification before that. [...] authorization afterwards. Charges/Coding Visit Charges Inpatient E&M: 65354 Subs Hosp L2 08/08/23 1735 <Electronically signed by Julio Duong MD> Cosigner Signature (if applicable): CC: ~ Signed [facility] Work Phone: [phone]) 681-294811-08-2023 Progress note Author Woodrow Cardenas [facility] August 07, 2023 2:50pm Note Date/Time August 07, 2023 8 :52am [facility] System Medical Records Department [facility] [place] [address] Progress Note - Hospitalist 08/07/23 0851 MR#: [id number] Acct: [id number] Name: DIANNE ALVES Rep #:[id number] : 1955 68 From: Woodrow Cardenas DO PCP: Dr. Aquiles oJnes MD Status:ADM I NO Location: [place] [address] Reason for Visit Reason for Visit: Diagnoses [...] (Auto) 42.9 L, Lymph % (Auto) 39.6, [place] % (Auto) 10.2 H, Eos % (Auto) [...] is for the patient to return to [facility], however she will require precertification before that. [...] isin place Charges/Coding Visit Charges Inpatient E&M: 19118 Subs Hosp L2 08/07/23 1450 <Electronically signed by Woodrow Cardenas DO> Cosigner Signature (if applicable): CC: ~ Signed [facility] Work Phone: [phone]) 663-900311-07-2023 Progress note Author Woodrow Cardenas [facility] August 06, 2023 2:18pm Note Date/Time August 06, 2023 8 :36am [facility] System Medical Records Department [address] [facility] [place] [address] Progress Note - Hospitalist 08/06/23 0835 MR#: [id number] Acct: [id number] Name: DIANNE ALVES Rep #:[id number] : 1955 68 From: Woodrow Cardenas DO PCP: Dr. Aquiles Jones MD Status:ADM I NO Location: [place] [address] Reason for Visit Reason for Visit: Diagnoses [...] Full code. Charges/Coding Visit Charges Inpatient E&M: 03992 Subs Hosp L2 08/06/23 1418 <Electronically signed by Woodrow Cardenas DO> Cosigner Signature (if applicable): CC: ~ Signed [facility] Work Phone: [phone]) 769-849711-06-2023 Progress note Author Woodrow Cardenas [facility] August 05, 2023 1:28pm Note Date/Time August 05, 2023 8 :09am [facility] System Medical Records Department [address] [place] [address] Progress Note - Hospitalist 08/05/23 0804 MR#: [id number] Acct: [id number] Name: DIANNE ALVES Rep #:[id number] : 1955 68 From: Woodrow Cardenas DO PCP: Dr. Aquiles Jones MD Status:ADM I NO Location: [place] [address] 1 Reason for Visit Reason for Visit: [...] % (Auto) 48.3, Lymph % (Auto) 37.6, [place] % (Auto) 7.6, Eos % (Auto) 5.7 [...] at bedside. Charges/Coding Visit Charges Inpatient E&M: 37422 Subs Hosp L2 08/05/23 1328 <Electronically signed by Woodrow Cardenas DO> Cosigner Signature (if applicable): CC: ~ Signed [facility] Work Phone: [phone]) 258-656911-06-20[address] [facility] August 05, 2023 7:57am Note Date/Time August 05, 2023 2 :22am [facility] System Medical Records Department [address] [place] [address] Emergency Department Summary 08/05/23 MR#: [id number] Acct: [id number] Name: DIANNE ALVES Rep #:[id number] : 1955 68 From: Castro Guallpa PCP: Dr. Aquiles Jones MD Status:ADM I NO Location: [address] History of Present Illness Chief Complaint: Chest Pain [facility] Medical History (Updated 08/05/23 @ 05:26 by [...] others: EMS Consults: Internal medicine (Dr. Castanon) [facility] Narrative: Patient was hemodynamically stable, afebrile, nontoxic-appearing. [...] despite significant pain. Had a conversation with weigher and charger, RN for the patient about IV access. [...] through a line company per hospitalist. Per weigher and charger is not available until potentially 10 or [...] a wire introducer was placed, a 7 Nigerian triple lumen catheter was placed using Seldinger [...] % (Auto) 48.3 Lymph % (Auto) 37.6 [place] % (Auto) 7.6 Eos % (Auto) 5.7 [...] 5:28 EST Reading Location ID and State: [facility] / [place] Tel , Service support , Discharge Plan Triage Chief Complaint: Chest Pain ED Provider: Castro Lane Dx/Rx/DC Orders Primary Care Provider: Aquiles Jones What to do if you have Problems For any increased pain, shortness of breath, bleeding, nausea or vomiting, chestpain, or any unexpected problems, contact your Primary Care Provider. Call [facility] ([phone]) or report to the closest Emergency Room. Call 911 if necessary. 08/05/23 5260 <Electronically signed by Castro Lane DO> Cosigner [...] cc: Dr. Aquiles Jones MD ~* Signed [facility] Work Phone: 1(597) 128-200211-06-2023 History and physical note Author Miguelina Castanon [facility] August 05, 2023 5:49am Note Date/Time August 05, 2023 5 :30am [facility] Medical Records Department [address] [place] [address] H&P Exam - Hospitalist 08/05/23 0525 MR#: [id number] Acct: [id number] Name: DIANNE ALVES Rep #:[id number] : 1955 68 From: Miguelina Castanon MD PCP: Dr. Aquiles Jones MD Status:ADM I NO Location: [place] [id number] HPI - General General Date of Admission: 08/05/23 Date of Service: 08/05/23 Chief Complaint: Chest pain. HPI Narrative The patient is a 68 y/o F w/ PMHx: Morbid Obesity, Chart reported thyroid disorder unclear type, PAD s/p LLE angioplasty/PCI, Hx VTE, COPD, EtOH abuse, Polysubstance abuse, Chronic Hepatitis C, HTN, Former tobacco use, Depression and Anxiety who presents to the [facility] ED on 08/05/23 with history of [...] with ED ordered CTPA as best course. [facility] Medical History (Updated 08/05/23 @ 05:26 by [...] % (Auto) 48.3, Lymph % (Auto) 37.6, [place] % (Auto) 7.6, Eos % (Auto) 5.7 [...] Depression and Anxiety who presents to the [facility] ED on 08/05/23 with history of [...] Full code. Charges/Coding Visit Charges Inpatient E&M: 12145 Init Hosp L2 08/05/23 0549 <Electronically signed by Miguelina Castanon MD> Cosigner Signature (if applicable): CC: Dr. Miguelina Castanon MD; Dr. Aquiles Jones MD~ Signed [facility] Work Phone: [phone]) 685-181811-06-2023 History and physical note Author Miguelina Castanon [facility] August 05, 2023 5:49am Note Date/Time August 05, 2023 5 :30am [facility] Health System Medical Records Department [address] [place] [address] [place] [address] H&P Exam - Hospitalist 08/05/23 0525 MR#: [id number] Acct: [id number] Name: DIANNE ALVES Rep #:[id number] : 1955 68 From: Miguelina Castanon MD PCP: Dr. Aquiles Jones MD Status:ADM I NO Location: [place] [address] HPI - General General Date of Admission: 08/05/23 Date of Service: 08/05/23 Chief Complaint: Chest pain. HPI Narrative The patient is a 68 y/o F w/ PMHx: Morbid Obesity, Chart reported thyroid disorder unclear type, PAD s/p LLE angioplasty/PCI, Hx VTE, COPD, EtOH abuse, Polysubstance abuse, Chronic Hepatitis C, HTN, Former tobacco use, Depression and Anxiety who presents to the [facility] ED on 08/05/23 with history of [...] with ED ordered CTPA as best course. [facility] Medical History (Updated 08/05/23 @ 05:26 by [...] % (Auto) 48.3, Lymph % (Auto) 37.6, [place] % (Auto) 7.6, Eos % (Auto) 5.7 [...] Depression and Anxiety who presents to the [facility] ED on 08/05/23 with history of [...] Full code. Charges/Coding Visit Charges Inpatient E&M: 92762 Init Hosp L2 08/05/23 0549 <Electronically signed by Miguelina Castanon MD> Cosigner Signature (if applicable): CC: Dr. Miguelina Castanon MD; Dr. Aquiles Jones MD~ Signed [facility] Work Phone: [phone]) 301-157311-06-2023 Discharge summary Author Castro [facility] August 05, 2023 7:57am Note Date/Time August 05, 2023 2 :22am [facility] Health System Medical Records Department [address] [place] [address] Emergency Department Summary 08/05/23 MR#: [id number] Acct: [id number] Name: DIANNE ALVES Rep #:[id number] : 1955 68 From: Castro Guallpa PCP: Dr. Aquiles Jones MD Status:ADM I NO Location: [address] History of Present Illness Chief Complaint: Chest Pain [facility] Medical History (Updated 08/05/23 @ 05:26 by [...] despite significant pain. Had a conversation with weigher and charger, RN for the patient about IV access. [...] through a line company per hospitalist. Per weigher and charger is not available until potentially 10 or [...] a wire introducer was placed, a 7 Nigerian triple lumen catheter was placed using Seldinger [...] % (Auto) 48.3 Lymph % (Auto) 37.6 [place] % (Auto) 7.6 Eos % (Auto) 5.7 [...] your Primary Care Provider. Call [facility] ([phone]) or report to the closest Emergency Room. [...] cc: Dr. Aquiles Jones MD ~* Signed [facility] Work Phone: 1(728) 645-654109-25-2023 Discharge summary Author Felicitas Harris [facility] June 24, 2023 11:10am Note Date/Time June 24, 2023 11:10am [facility] Occupational Therapy [facility] 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 Thank you for the referral of this patient. Sincerely, Felicitas Harris, OTR/L, CHT <Electronically signed by Felicitas Harris OTR/L, CHT> 06/24/23 1110 CC: RECYCLING CREW SUPERVISOR-C ELI BRAGG; Dr. Capo Yu MD ~ MK Signed [facility] Work Phone: [phone]) 723-501409-05-2023 Discharge summary Author Lucas Marshall [facility] June 04, 2023 3:14pm Note Date/Time June 04, 2023 2:03pm [facility] Medical Records Department [address] [place] [address] Emergency Department Summary 06/04/23 MR#: [id number] Acct: [id number] Name: DIANNE ALVES Rep #:[id number] : 1955 68 From: Lucas Penny PCP: CHICO DREW Status:REG ER Location: ED HPI History of Present Illness Chief Complaint: Back Informant: patient Narrative Narrative: Here with daughter nontraumatic right hip pain since yesterday. On meloxicam last dose this morning. Status post left ORIF of the wrist in February from [facility]. States his residual tingling to her [...] mcg-glycopyr 9 mcg-formot 4.8 mcg/actuation HFA inhaler ([employer]here) 2 inh inhalation BID 02/08/23 [History Last [...] clinician: N/A This note was generated with [employer] dictation software. It may contain incorrectwords, spelling, [...] your Primary Care Provider. Call [facility] ([phone]) or report to the closest Emergency Room. Call 911 if necessary. 06/04/23 0867 <Electronically signed by Lucas Penny> Cosigner Signature (if applicable): CC: CHICO BRAGG ~ Signed [facility] Work Phone: [phone]) 923-558701-23-[address] Kingsley [facility] October 22, 2022 6:28pm Note Date/Time October 22, 2022 4 :44pm [facility] Health System Medical Records Department [address] [place] [address] Emergency Department Summary 10/22/22 MR#: [id number] Acct: [id number] Name: DIANNE ALVES Rep #:[id number] : 1955 67 From: Ganga Kingsley MD [...] she be discharged safely home to use [id number] medications. She was told that narcotic pain [...] (Auto) 46.3 L Lymph % (Auto) 40.1 [place] % (Auto) 7.0 Eos % (Auto) 5.9 [...] your Primary Care Provider. Call [facility] ([phone]) or report to the closest Emergency Room. Call 911 if necessary. 10/22/221827 <Electronically signed by Ganga Kingsley MD> Cosigner Signature (if applicable): CC: Dr. Leonie Peterson MD ~ Signed [facility] Work Phone: Evaluation noteNo assessment information available [facility] Work Phone: Evaluation note* Diagnosis Onset Date Resolution Status Hepatitis A chronic Hepatitis C chronic [facility] Work Phone: Evaluation note* Diagnosis Onset Date Resolution Status Hepatitis A chronic Hepatitis C chronic Preop cardiovascular exam ac creek [facility] Work Phone: Evaluation note* Diagnosis Onset Date Resolution Status Preop cardiovascular exam ac creek Euthyroid sick syndrome acut e Bloating acute Hepatitis A chronic Hepatitis C chronic [facility] Work Phone: Evaluation note* Diagnosis Onset Date Resolution Status Euthyroid sick syndrome acut e Bloating acute Hepatitis A chronic Hepatitis C chronic [facility] Work Phone: Evaluation note* Diagnosis Onset Date Resolution Status Euthyroid sick syndrome acut e Bloating acute Hepatitis A chronic Hepatitis C chronic Chest pain acute [facility] Work Phone: Evaluation note* Diagnosis Onset Date Resolution Status Euthyroid sick syndrome acut e Bloating acute Hepatitis A chronic Hepatitis C chronic Chest pain acute Difficult intravenous access acute [facility] Work Phone: Evaluation note* Diagnosis Onset Date Resolution Status Difficult intravenous access acute Chest pain resolved [facility] Work Phone: Hospital Discharge instructions Additional Instructions Take antibiotic and steroid as prescribed. Next dose tomorrow. Keep yoUr pulmonology appointment tomorrow. COVID-negative chest x-ray negative labs are stable. return if any worsening symptoms.[facility] Work Phone: Hospital Discharge instructions Additional Instructions Motrin and Tylenol for pain. The x-rays of your hip showed arthritis but no broken bones or any other significant abnormalities. Follow-up with your doctor if not improving.[facility] Work Phone: Hospital Discharge instructions Additional Instructions Right hip x-ray negative. Take steroids, continue your meloxicam. Use Percocet as needed. Follow-up with your doctors.[facility] Work Phone: Hospital Discharge instructions Additional Instructions See CAT scan your chest look good. No blood clot. Your other tests look good tonight. 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 Advance Directives and Living Will Power of Youth Services Librarian Advance Directive Response Recorded Date/ Time Living Will No July 30 2:10pm Power of Youth Services Librarian No July 30, 2022 2:10pm Advance Directive Response Recorded Date/ Time Living Will No July 30 1:10pm Power of Youth Services Librarian No July 30, 2022 1:10pm Advance Directive Response Recorded Date/ Time Living Will No October 22 4:35pm Power of Youth Services Librarian No October 22, 2022 4:35pm Advance Directive Response Recorded Date/ Time Living Will No October 22 5:35pm Power of Youth Services Librarian No October 22, 2022 5:35pm Advance Directive Response Recorded Date/ Time Living Will No April 13, 2023 10:36am Power of Youth Services Librarian No April 13 10:36am Advance Directive Response Recorded Date/ Time Living Will No June 04, 2 023 3:10pm Power of Youth Services Librarian No June 04, 2023 3:10pm Advance Directive Response Recorded Date/ Time Living Will No June 04, 023 2:10pm Power of Youth Services Librarian No June 04, 2023 2:10pm Advance Directive Response Recorded Date/ Time Living Will No August 05 8:52am Power of Youth Services Librarian No August 05, 2023 8:52am Advance Directive Response Recorded Date/ Time Living Will No November 10 024 8:26pm Power of Youth Services Librarian No November 10, 2023 8:26pm Advance Directive Response Recorded Date/ Time Living Will No November 21 024 11:32am Power of Youth Services Librarian No November 21, 2023 11:32am Advance Directive Response Recorded Date/ Time Living Will No November 17 025 5:00pm Power of Youth Services Librarian No November 17, 2024 5:00pm Living Will No December 11, 2024 4:45pm Power of Youth Services Librarian No December 11 4:45pm Hospital Course Note NAME: DIANNE ALVES MR# : [id number] ADMIT DATE: 11/25/2019 DISCHARGE DATE: 12/07/2019 DISCHARGE SUMMARY HISTORY OF PRESENT ILLNESS: The patient is a 64-year-old -Finnish female who was evicted from her apartment [...] section and content) DATE CREATED AUTHOR 02/04/[address] [facility] DATE CREATED AUTHOR AUTHOR'S ORGANIZ ATION 06/19/2019 [employer] DATE CREATED AUTHOR AUTHOR'S ORGANIZ ATION 12/14/2019 [facility] DATE CREATED AUTHOR AUTHOR'S ORGANIZ ATION 02/12/2020 [facility] DATE CREATED AUTHOR AUTHOR'S ORGANIZ ATION 04/22/2020 [facility] DATE CREATED AUTHOR AUTHOR'S ORGANIZ ATION 10/29/2021 [facility] DATE CREATED AUTHOR AUTHOR'S ORGANIZ ATION 08/22/2024 [facility] DATE CREATED AUTHOR AUTHOR'S ORGANIZ ATION 10/28/2024 [facility] DATE CREATED AUTHOR AUTHOR'S ORGANIZ ATION 12/22/2024 [facility] DATE CREATED AUTHOR AUTHOR'S ORGANIZ ATION 07/17/2025 [facility] Reason for Visit (unrecogniz ed section [...] Active Start: November 19, 2024 Dr. Stephenie uY MD Admit Provider Active Star t: November [...] Active Start: November 20, 2024 Dr. Stephenie uY MD Admit Provider Active Star t: November [...] Active Start : November 23, 2024 Dr. dK Corral MD Other Provider [...] DO Attending Provider Active ELI BRAGG , RECYCLING CREW SUPERVISOR-C Primary Care Provider Active Team Status: Inactive Member Role Status Dates Dr. Leonie Peterson MD Referring Provider Active Dr. Omar Walters MD Attending Provider Active ELI BRAGG , RECYCLING CREW SUPERVISOR-C Primary Care Provider Active Team Status: Inactive Member Role Status Dates Dr. Capo Yu MD Attending Provider, Referring Provider Active ELI BRAGG , RECYCLING CREW SUPERVISOR-C Primary Care Provider Active Team Status: Inactive Member Role Status Dates ELI BRAGG RECYCLING CREW SUPERVISOR-C Primary Care Provider Active Dr. Stef Bennett DO Attending Provider, Referring Provider Active Team Status: Inactive Member Role Status Dates ELI BRAGG RECYCLING CREW SUPERVISOR-C Primary Care Provider Active Dr. Lucas Marshall [...] Member Role Status Dates ELI BRAGG , RECYCLING CREW SUPERVISOR-C Primary Care Provider Active Team Status: Active Member Role Status Dates Dr. Capo Yu MD Attending Provider, Referring Provider Active ELI OLDER , RECYCLING CREW SUPERVISOR-C Primary Care Provider Active Team Status: Inactive Member Role Status Dates ELI BRAGG , RECYCLING CREW SUPERVISOR-C Primary Care Provider Active Dr. Lucas Marshall [...] BE BASED ON THE PRIMARY CLINICAL RECORDS. [employer] provides no warranty or guarantee of the accuracy or completeness of information in this document.
--- NOTE | 2025-09-26 05:46 | PCM.HP.STD ---
[facility] - General General Date of Admission: 09/26/25 Chief Complaint: Right hip and thigh pain HPI Narrative INDIRA HOLLINGSWORTH, is a 70 F with COPD on 2 L oxygen presents with severe right-sided hip and lateral thigh pain. She is unable to walk on that side but denies any swelling, change in color or appearance, falling or trauma. She states she had a history of DVT at that side few years ago and she has been off anticoagulation at the moment. Patient was seen in the ED and had a CT abdomen/pelvis, was normal and was planned for discharge but she disagreed as her concern was not addressed. When seen, she was in severe pain very restless. Right hip range of motion was not limited or painful during flexion/extension and rotation, no swelling or change in skin or soft tissue appearance of the hip and thigh areas when compared to the left side. Knees were normal without swelling or restricted/painful range of motion as well. Vitals within normal except for hypertension possibly from pain CBC and chemistry were normal Patient will be admitted to the hospital for pain control as well as investigating her pain with a CT of the right hip and thigh with IV contrast and checking CK, ESR and CRP. If all negative will check for DVT although clinically does not look like it. [facility] Medical History (Updated 09/26/25 @ 05:[address] Agusto Orozco MD) Anticoagulant long-term use Type 2 acute myocardial infarction Wears glasses Post-menopausal Gastric reflux Depression Walker as ambulation aid Arthritis Bladder disease High cholesterol Hx of fracture of wrist Back pain Syncope Loss of consciousness Shortness of breath on exertion Leg cramps History of edema History of echocardiogram History of stress test Cardiology follow-up encounter Dependence on supplemental oxygen Euthyroid sick syndrome Thyroid disorder Chronic hepatitis C without hepatic coma Smoker COPD (chronic obstructive pulmonary disease) Presence of stent in artery H/O cocaine abuse H/O ETOH abuse DVT (deep venous thrombosis) Lumbar herniated disc HTN (hypertension) Alcohol abuse Cocaine abuse Home Medications ?Medication ?Instructions ?Recorded ?Last Taken ?Type albuterol sulfate 90 mcg/actuation 2 puff inhalation Q4H PRN Wheezing 08/26/20 08/26/20 History aerosol inhaler aspirin 81 mg chewable tablet 81 mg PO DAILY BLOOD CLOT 08/26/20 09/16/25 History atorvastatin 40 mg tablet 40 mg PO DAILY 02/07/21 09/16/25 History furosemide 20 mg tablet 20 mg PO DAILY 10/17/22 11/16/24 History diclofenac sodium 1 % topical gel 2 g topical BID PRN pain 02/15/23 09/16/25 History (Voltaren Arthritis Pain) omeprazole 40 mg capsule,delayed 40 mg PO DAILY 04/27/24 11/16/24 History release famotidine 40 mg tablet 40 mg PO QHS 11/17/24 09/15/25 History lisinopril 30 mg tablet 30 mg PO DAILY 11/17/24 11/16/24 History methimazole 5 mg tablet 5 mg PO DAILY 11/17/24 Unknown History tizanidine 4 mg tablet 4 mg PO Q8 PRN muscle spasms 11/17/24 Unknown History albuterol sulfate 2.5 mg/3 mL 2.5 mg (3 mL) inhalation Q2H PRN 11/23/24 Unknown Rx (0.083 %) solution for nebulization PRN SOB &/OR WHEEZING #90 mL ipratropium bromide 0.02 % 0.5 mg (2.5 mL) inhalation 11/23/24 09/13/25 Rx solution for inhalation Q6HWA.RT #75 mL fluticasone fur. 100 mcg-umeclid 1 ea inhalation DAILY 09/16/25 Unknown History 62.5 mcg-vilant 25 mcg inhalat.powder (Trelegy Ellipta) hydrocodone-acetaminophen 5-325mg 1 tab PO Q6H PRN PRN Pain 3 days 09/16/25 Unknown Rx 5mg-325mg #10 TABLETS Allergy/AdvReac Type Severity Reaction Status Date / Time No Known Allergies Allergy Verified 09/25/25 20:14 Family History Mother Hypertension Other Alcoholism Surgical History History of rotator cuff surgery H/O vascular surgery Stenosis of artery of left lower extremity Social History household members: none housing: apartment current occupational status: retired Smoking Status: Former smoker how long ago did patient quit smoking: January 2022 alcohol intake: former substance use type: former substance user Date of last use: 03/2020 and crack/cocaine caffeine: Yes Type: carbonated beverages and coffee ROS Constitutional Constitutional: Denies fever(s) or poor appetite ENT HEENT: Reports none Cardiovascular Cardiovascular: Denies chest pain or dyspnea Respiratory/Chest Respiratory/Chest: Denies cough or wheezing Gastrointestinal Gastrointestinal: Denies abdominal pain or change in bowel habits Genitourinary Genitourinary: Denies change in urinary stream or dysuria Musculoskeletal Musculoskeletal: Reports arthralgias and myalgias Integumentary Integumentary: Reports none Neurologic Neurologic: Denies abnormal speech, dizziness, focal weakness, loss of vision or numbness Hematologic/Lymphatic Hematologic/Lymphatic: Reports none Patient's Goals Of Care . What would you like to achieve or improve as a result of your hospital stay?: Get better Vital Signs Vital Signs Vital Signs: 09/25/25 20:12 09/25/25 22:00 09/26/25 00:00 Temperature 98.5 F Temperature Source Oral Pulse Rate 108 H 78 80 Respiratory Rate 18 16 Blood Pressure 145/71 H 147/80 H 152/70 H Blood Pressure Mean 95 102 97 Blood Pressure Source Blood Pressure Position Blood Pressure Location Pulse Ox 96 99 100 Oxygen Delivery Method Nasal Cannula Nasal Cannula Oxygen Flow Rate (L/min) 5 09/26/25 02:00 09/26/25 02:43 09/26/25 05:40 Temperature 98.6 F 97.8 F Temperature Source Oral Pulse Rate 80 72 Respiratory Rate 16 20 H Blood Pressure 150/70 H 150/70 H 160/72 H Blood Pressure Mean 96 96 101 Blood Pressure Source Monitor Blood Pressure Position Semi-Fowlers Blood Pressure Location Left Arm Pulse Ox 100 100 100 Oxygen Delivery Method Nasal Cannula Oxygen Flow Rate (L/min) 4 Weight Weight: 93.5 kg Body Mass Index (BMI) 33.3 Physical Exam Const alert and oriented x3 HEENT normocephalic and head/scalp atraumatic Eyes EOMs intact bilaterally; Negative for no scleral icterus Neck supple Resp normal respiratory effort and clear to auscultation bilaterally Cardio regular rate and regular rhythm; Negative for no murmurs GI normal to inspection, nondistended, normoactive bowel sounds; Negative for non-tender no CVA tenderness Extremity no joint enlargement and no pedal edema Skin no rashes or lesions noted Neuro oriented x3 and moves all extremities Results Lab / Micro Data 09/25/25 20:49 09/25/25 20:49 Labs: Laboratory Results - last 24 hr 09/25/25 20:49: WBC 7.7, RBC 4.75, Hgb 13.7, Hct 42.4, MCV 89.3, MCH 28.8, MCHC 32.3, RDW Std Deviation 44.2 H, RDW Coeff of Oleg 13.4, Plt Count TNP, MPV 10.9, Immature Gran % (Auto) 0.300, Neut % (Auto) 52.8, Lymph % (Auto) 33.5, [place] % (Auto) 5.7, Eos % (Auto) 7.1 H, Baso % (Auto) 0.6, Absolute Neuts (auto) 4.1, Absolute Lymphs (auto) 2.59, Nucleated RBC % 0, Platelet Estimate ADEQUATE, Sodium 140, Potassium 4.6, Chloride 104, Carbon Dioxide 25.8, Anion Gap 10, BUN 12, Creatinine 1.02, Est GFR (MDRD) Non-Af 60, BUN/Creatinine Ratio 12.2, Glucose 103 H, Calcium 9.6, Lipase 36 09/25/25 22:42: Urine Color Straw, Urine Clarity Clear, Urine pH 7.0, Ur Specific [place] 1.010, Urine Protein 15 H, Urine Glucose (UA) Normal, Urine Ketones Negative, Urine Occult Blood Negative, Urine Nitrite Negative, Urine Bilirubin Negative, Urine Urobilinogen Normal, Ur Leukocyte Esterase Negative, Urine RBC 0 SEEN, Urine WBC 0 SEEN, Ur Squamous Epith Cells 0-5 SEEN, Urine Bacteria 1+, Urine Mucus 0 SEEN Imaging Radiology Impression Abdomen/Pelvis CT 09/25/25 20:43 IMPRESSION: 1. No acute findings in the abdomen or pelvis. 2. Mild hepatomegaly. 3. Small fat containing umbilical hernia. 4. Unchanged abdominal aortoiliac stenting. Reading Location: [facility] Hip X-Ray 09/25/25 23:05 IMPRESSION: No acute fractures or dislocations. Mild degenerative changes. Reading Location: [facility] Assessment & Plan Assessment/Plan (1) Right thigh pain: (2) Hip pain, right: (3) COPD (chronic obstructive pulmonary disease): QUALIFIERS: COPD type: COPD with acute exacerbation Qualified Code(s): J44.1 - Chronic obstructive pulmonary disease with (acute) exacerbation PLAN: Plan Admission Pain control: Tylenol, oxycodone, Toradol, tizanidine and morphine as needed CT right thigh with IV contrast Follow CK, ESR and CRP If workup is unrevealing check for DVT. Was not initially checked as clinically not convincing for DVT which she had before. Of anticoagulation at home and Continue other home medication for COPD including her home oxygen, nebulizer treatments, Lasix. Charges/Coding Visit Charges Inpatient E&M: 16701 Init Hosp L3
[2025-09-26 06:29] LABS: CPK Total, Creatine Kinase 180 U/L (24-195); CRP 4.11 mg/L (0.0-3.0)
[2025-09-26] MEDS: Budesonide Respules 0.5 MG/2 ML AMPUL.NEB. INHALATION ×2 (07:01→18:52)
--- NOTE | 2025-09-26 11:44 | PCM.PN.BLA ---
Assessment & Plan Assessment/Plan (1) Right thigh pain: (2) Hip pain, right: (3) COPD (chronic obstructive pulmonary disease): QUALIFIERS: COPD type: COPD with acute exacerbation Qualified Code(s): J44.1 - Chronic obstructive pulmonary disease with (acute) exacerbation PLAN: Plan 1. Hip pain ? CT abdomen and pelvis was unremarkable ? CT scan is pending for right thigh pain and his lower extremity ? CRP is slightly elevated to 4.11 with a CPK of 180 and an ESR of 14 2. Essential HTN/HLD ? Blood pressure stable ? Continue with her home medications ? Continue with Lipitor 3. COPD ? Not in exacerbation ? Continue with her home inhalers 4. GERD ? Stable ? Continue with her home medications 5. Hyperthyroidism ? Stable ? Continue with methimazole DVT: Lovenox
[2025-09-26 19:48] LABS: Magnesium 1.9 mg/dL (1.5-2.2)
--- NOTE | 2025-09-26 20:11 | CPS ---
Pt insisted she needs to be on 4L so she can feel the flow of O2 coming out of the canula
[2025-09-26] MEDS: 0.9% Saline Lock 10 ML Syringe IV (22:55)
[2025-09-27 04:46] VITALS: BP 144/76; PULSE 67; RESP 16; TEMP 36.8; O2SAT 96
[2025-09-27 05:34] LABS: Hematocrit 39.1 % (37-47); Hemoglobin 12.5 g/dL (12.0-15.0); Immature Granulocytes Count 0.010 X10^3/uL (0.0-0.0); Mean Corp Hgb Conc 32.0 g/dL (32-36); Mean Corpuscular Volume 89.1 fL (81-99); Mean Platelet Vol. 10.6 fl (6.2-12.0); NRBC Flagged by Analyzer 0 % (0-5); Platelet Count 239 K/mm3 (150-450); RBC Distribution Width CV 13.5 % (11.6-14.6); RBC Distribution Width SD 44.2 fl (35.1-43.9); Red Blood Count 4.39 M/mm3 (4.2-5.4); White Blood Count 5.4 K/mm3 (4.4-11.0)
[2025-09-27 05:35] LABS: Anion Gap 8 (7-18); BUN 14 mg/dL (4-19); BUN/Creat Ratio 14.3 RATIO (10-20); Calcium,Total 9.0 mg/dL (7.6-11.0); Carbon Dioxide 28.2 mmol/L (20.0-29.0); Chloride 103 mmol/L (96-106); Estimated Creatinine Clearance 63.72 ml/min (50-250); Glucose 99 mg/dL (70-99); Potassium 4.1 mmol/L (3.5-5.1)
[2025-09-27] MEDS: Budesonide Respules 0.5 MG/2 ML AMPUL.NEB. INHALATION ×2 (06:55→19:48)
[2025-09-27 06:56] VITALS: PULSE 84; RESP 14; O2SAT 94
[2025-09-27 09:15] VITALS: BP 137/75; PULSE 66; RESP 14; TEMP 36.6; O2SAT 93
--- NOTE | 2025-09-27 09:25 | PN.HOSP_ITS ---
Subjective Subjective Continues to complain of right leg pain at her hip area that goes down her thigh, imaging is negative Objective Data Objective Data Vital Signs: Vital Signs Temp Pulse Resp BP Pulse Ox O2 Del Method O2 Flow Rate 97.9 F 66 14 137/75 H 93 Nasal Cannula 4 09/27/25 09:15 09/27/25 09:15 09/27/25 09:15 09/27/25 09:15 09/27/25 09:15 09/27/25 09:15 09/27/25 09:15 Oxygen Flow Rate (L/min) 4 Oxygen Delivery Method Nasal Cannula Weight: 206 lb 2.115 oz Body Mass Index (BMI) 33.3 Intake & Output: Intake and Output for Last 24 Hours 09/26/25 09/27/25 09/28/25 03:59 03:59 03:59 Intake Total 1000 / 1000 Balance 1000 / 1000 Lab / Micro Data 09/27/25 05:03 09/27/25 05:03 Labs: Laboratory Results - last 24 hr 09/26/25 05:59: Magnesium 1.9 09/27/25 05:03: WBC 5.4, RBC 4.39, Hgb 12.5, Hct 39.1, MCV 89.1, MCH 28.5, MCHC 32.0, RDW Std Deviation 44.2 H, RDW Coeff of Oleg 13.5, Plt Count 239, MPV 10.6, Immature Gran % (Auto) 0.200, Neut % (Auto) 45.7 L, Lymph % (Auto) 37.7, [place] % (Auto) 6.5, Eos % (Auto) 9.3 H, Baso % (Auto) 0.6, Absolute Neuts (auto) 2.5, Absolute Lymphs (auto) 2.02, Nucleated RBC % 0, Sodium 139, Potassium 4.1, Chloride 103, Carbon Dioxide 28.2, Anion Gap 8, BUN 14, Creatinine 0.96, Estim Creat Clear Calc 63.72, Est GFR (MDRD) Non-Af 64, BUN/Creatinine Ratio 14.3, Glucose 99, Calcium 9.0 Radiography Diagnostic Testing: Radiology Impression Lower Extremity CT 09/26/25 04:39 IMPRESSION: No acute osseous findings. Evaluation for an underlying abscess is limited without the use of intravenous contrast. However, there are no hypoattenuating lesions to suggest an abscess. No soft tissue irregularities of the right lower extremity. Reading Location: [facility] Physical Exam Narrative General: Alert, Oriented x3, Cooperative, No apparent distress HEENT: Atraumatic, PERRLA, EOMI, Normocephalic Oral: Moist Mucosa Neck: Supple, No JVD Lungs: Diminished, Normal air movement, No rhonchi, No wheeze, No rales Cardiovascular: Regular rate, Regular Rhythm, Normal S1, Normal S2, No murmurs Abdomen: Soft, Non Tender, Non-Distended, No Hepato-splenomegaly Extremities: No edema, Capillary Refill Less than 3 Seconds Skin: No rashes, No breakdown Musculoskeletal: No Tenderness to Palpation of Joints or Extremities Neurological: No focal neurological deficits, moves all extremities Psych/Mental Status: Normal Affect, Appropriate Assessment & Plan Assessment/Plan (1) Right thigh pain: (2) Hip pain, right: (3) COPD (chronic obstructive pulmonary disease): QUALIFIERS: COPD type: COPD with acute exacerbation Qualified Code(s): J44.1 - Chronic obstructive pulmonary disease with (acute) exacerbation PLAN: Plan 1. Hip pain ? CT abdomen and pelvis was unremarkable ? CT scan of the right lower extremity is unremarkable, no abscess or osseous issues ? Will obtain a D-dimer today as she is concerned for possible blood clots, discussed with her that they do not usually present with right hip pain ? CRP is slightly elevated to 4.11 with a CPK of 180 and an ESR of 14 ? PT/OT 2. Essential HTN/HLD ? Blood pressure stable ? Continue with her home medications ? Continue with Lipitor 3. COPD ? Not in exacerbation ? Continue with her home inhalers 4. GERD ? Stable ? Continue with her home medications 5. Hyperthyroidism ? Stable ? Continue with methimazole DVT: Lovenox Charges/Coding Visit Charges Inpatient E&M: 24648 Subs Hosp L2
--- NOTE | 2025-09-27 09:37 | CASEMGMT ---
Social Work Face to Face with pt for initial transition planning/care coordination assessment. SW introduced self. Patient is A&O x4 and answers all questions appropriately at this time. Admitting Dx: right thigh pain Primary Care Doctor: Dr. Castillo Speciality doctors: speciality clinic Insurance: [place] Medicare Dual and Medicaid Pharmacy: Patient utilizes [facility]. Advanced directives: none LNOK:. 1 son that is incarcerated Living Situation: Patient lives in an apartment alone with no steps to enter. Her mormonism family is her support. ADL's/Prior level of functioning: independent Transportation: transportation or mormonism family DME: [facility] longterm/home health history: [facility] and HH prior unknown agency Support/Community Services: mormonism Mental Health: depression. She reported she is not currently taking medication. Substance abuse history: Patient she last used crack in March 2020. Assessment: Patient lives in an apartment alone with no steps to enter. Her mormonism family is her support. Patient was independent with ALD's prior to admission. PLAN: To be determined. LUIS EDUARDO Luna
[2025-09-27 10:17] LABS: D-Dimer Quantitative (DVT/PE) 1.69 FEU/ug/m (0.27-0.49)
--- NOTE | 2025-09-27 12:32 | VDLE_ITS ---
Reason For Study Reason For Study: Elevated D Dimer RIGHT LEFT GSV is normal. CFV is compressible, spontaneous, phasic, competent, CFV is compressible, spontaneous, phasic, competent and demonstrates normal augmentation. and demonstrates normal augmentation. FV is compressible, spontaneous, phasic, competent and demonstrates normal augmentation. POP V is compressible, spontaneous, phasic, competent and demonstrates normal augmentation. T/P Trunk is compressible. PTV is compressible. RT PerV is compressible. Procedure This is a venous duplex using B-mode, color flow and spectral Doppler. Exam performed portable in patient room. A preliminary report was called and/or faxed to [facility] MONTANO. VL/Venous Duplex US, Unilateral Interpretation Summary Deep veins of the right lower extremity are patent and compressible segmentally . There is no evidence of right lower extremity deep vein thrombosis. The right great saphenous vein appears patent a nd compressible segmentally. Ordering Physician: Estevan Hutson Referring Physician: Leonie Castillo Performed By: Avelina Baca, TRACY, RVT
--- NOTE | 2025-09-27 14:01 | CASEMGMT ---
Discharge Planning A list of SNF providers including quality and resource use data and consistent with the patient's preferred geographic region, medical needs, and insurance network was created in [facility] Guide.? This list was provided to the SW. Emmie Perkins Discharge Planning Asst.
--- NOTE | 2025-09-27 14:15 | CASEMGMT ---
Social Work A list of?SNF providers including quality and resource use data and consistent with the patient's preferred geographic region, medical needs, and insurance network was created in [facility] Guide.? This list was provided to the patient to review. The patient prefers to DC home. SW explained the concern is she is only a few steps and she lives alone. Plan: [facility] will follow up with the patient tomorrow. LUIS EDUARDO Thomas
[2025-09-27 15:21] VITALS: BP 158/78; PULSE 67; RESP 18; TEMP 36.7; O2SAT 98
[2025-09-27 19:51] VITALS: RESP 18
[2025-09-27 20:53] VITALS: BP 155/72; PULSE 80; RESP 17; TEMP 36.6; O2SAT 93
[2025-09-27] MEDS: 0.9% Saline Lock 10 ML Syringe IV (20:55)
[2025-09-28] VITALS (10 sets, daily range): BP systolic 137–181; BP diastolic 67–89; PULSE 63–91; RESP 16–20; TEMP 36.3–36.9; O2SAT 92–98
[2025-09-28 06:45] LABS: Hematocrit 39.1 % (37-47); Hemoglobin 12.6 g/dL (12.0-15.0); Immature Granulocytes Count 0.020 X10^3/uL (0.0-0.0); Mean Corp Hgb Conc 32.2 g/dL (32-36); Mean Corpuscular Volume 89.3 fL (81-99); Mean Platelet Vol. 10.5 fl (6.2-12.0); NRBC Flagged by Analyzer 0 % (0-5); Platelet Count 223 K/mm3 (150-450); RBC Distribution Width CV 13.5 % (11.6-14.6); RBC Distribution Width SD 44.6 fl (35.1-43.9); Red Blood Count 4.38 M/mm3 (4.2-5.4); White Blood Count 5.7 K/mm3 (4.4-11.0)
[2025-09-28 07:03] LABS: Anion Gap 7 (7-18); BUN 12 mg/dL (4-19); BUN/Creat Ratio 13.3 RATIO (10-20); Calcium,Total 9.1 mg/dL (7.6-11.0); Carbon Dioxide 29.3 mmol/L (20.0-29.0); Chloride 104 mmol/L (96-106); Estimated Creatinine Clearance 65.78 ml/min (50-250); Glucose 95 mg/dL (70-99); Potassium 4.0 mmol/L (3.5-5.1)
[2025-09-28] MEDS: Budesonide Respules 0.5 MG/2 ML AMPUL.NEB. INHALATION ×2 (07:18→19:44)
--- NOTE | 2025-09-28 08:53 | CASEMGMT ---
Social Work SW spoke with the patient and informed her the physician stated she is medically ready for DC. SW asked if the patient considered discharging to a SNF. Patient reported she would DC to TCU. SW sent the referral to TCU. LUIS EDUARDO Luna
--- NOTE | 2025-09-28 09:40 | CASEMGMT ---
Social Work SW informed the patient that she was not accepted at TCU because they do not accept her insurance. SW asked if she wanted to review the SNF list and chose another SNF and the patient stated no. SW asked if patient wants SW to set up HH at [facility] and the patient said yes. SW informed the patient SW will bring her a list of HH agencies that she can make her choices from. LUIS EDUARDO Luna
--- NOTE | 2025-09-28 09:55 | CASEMGMT ---
Discharge Planning A list of?HH providers including quality and resource use data and consistent with the patient's preferred geographic region, medical needs, and insurance network was created in [facility] Guide.? This list was provided to the SW. Emmie Perkins, Discharge Planning Asst
--- NOTE | 2025-09-28 10:11 | PCM.PN.HOSP ---
Subjective Subjective No issues overnight still having some pain Objective Data Objective Data Vital Signs: Vital Signs Temp Pulse Resp BP Pulse Ox O2 Del Method O2 Flow Rate 97.5 F L 75 20 H 137/89 H 97 Nasal Cannula 4 09/28/25 07:50 09/28/25 08:53 09/28/25 07:50 09/28/25 08:53 09/28/25 07:50 09/28/25 08:04 09/28/25 08:05 Oxygen Flow Rate (L/min) 4 Oxygen Delivery Method Nasal Cannula Weight: 206 lb 2.115 oz Body Mass Index (BMI) 33.3 Intake & Output: Intake and Output for Last 24 Hours 09/27/25 09/28/25 09/29/25 03:59 03:59 03:59 Intake Total 360 / 360 Output Total 250 / 250 250 / 250 Balance 110 / 110 -250 / -250 Lab / Micro Data 09/28/25 06:36 09/28/25 06:36 Labs: Laboratory Results - last 24 hr 09/27/25 09:55: D-Dimer Quant (PE/DVT) 1.69 H* 09/28/25 06:36: WBC 5.7, RBC 4.38, Hgb 12.6, Hct 39.1, MCV 89.3, MCH 28.8, MCHC 32.2, RDW Std Deviation 44.6 H, RDW Coeff of Oleg 13.5, Plt Count 223, MPV 10.5, Immature Gran % (Auto) 0.300, Neut % (Auto) 43.3 L, Lymph % (Auto) 38.9, [place] % (Auto) 7.7, Eos % (Auto) 9.1 H, Baso % (Auto) 0.7, Absolute Neuts (auto) 2.5, Absolute Lymphs (auto) 2.23, Nucleated RBC % 0, Sodium 140, Potassium 4.0, Chloride 104, Carbon Dioxide 29.3 H, Anion Gap 7, BUN 12, Creatinine 0.93, Estim Creat Clear Calc 65.78, Est GFR (MDRD) Non-Af 66, BUN/Creatinine Ratio 13.3, Glucose 95, Calcium 9.1 Radiography Diagnostic Testing: Radiology Impression Venous Doppler Study 09/27/25 12:32 Interpretation Summary Deep veins of the right lower extremity are patent and compressible segmentally. There is no evidence of right lower extremity deep vein thrombosis. The right great saphenous vein appears patent and compressible segmentally. Ordering Physician: Estevan Hutson Referring Physician: Leonie Castillo Performed By: Avelina Baca, RDCS, RVT Physical Exam Narrative General: Alert, Oriented x3, Cooperative, No apparent distress HEENT: Atraumatic, PERRLA, EOMI, Normocephalic Oral: Moist Mucosa Neck: Supple, No JVD Lungs: Diminished, Normal air movement, No rhonchi, No wheeze, No rales Cardiovascular: Regular rate, Regular Rhythm, Normal S1, Normal S2, No murmurs Abdomen: Soft, Non Tender, Non-Distended, No Hepato-splenomegaly Extremities: No edema, Capillary Refill Less than 3 Seconds Skin: No rashes, No breakdown Musculoskeletal: No Tenderness to Palpation of Joints or Extremities Neurological: No focal neurological deficits, moves all extremities Psych/Mental Status: Normal Affect, Appropriate Assessment & Plan Assessment/Plan (1) Right thigh pain: (2) Hip pain, right: (3) COPD (chronic obstructive pulmonary disease): QUALIFIERS: COPD type: COPD with acute exacerbation Qualified Code(s): J44.1 - Chronic obstructive pulmonary disease with (acute) exacerbation PLAN: Plan 1. Hip pain ? CT abdomen and pelvis was unremarkable ? CT scan of the right lower extremity is unremarkable, no abscess or osseous issues ? D-dimer was elevated so Doppler was obtained which was negative for blood clot ? CRP is slightly elevated to 4.11 with a CPK of 180 and an ESR of 14 ? PT/OT ? No obvious source of the pain other than likely arthritis no further workup is necessary at this time 2. Essential HTN/HLD ? Blood pressure stable ? Continue with her home medications ? Continue with Lipitor 3. COPD ? Not in exacerbation ? Continue with her home inhalers 4. GERD ? Stable ? Continue with her home medications 5. Hyperthyroidism ? Stable ? Continue with methimazole DVT: Lovenox Charges/Coding Visit Charges Inpatient E&M: 55682 Subs Hosp L2
--- NOTE | 2025-09-28 10:57 | CASEMGMT ---
Social Work A list of?HH providers including quality and resource use data and consistent with the patient's preferred geographic region, medical needs, and insurance network was created in [facility] Guide.? This list was provided to the patient. The patient chose [facility]. A referral will be made to [facility]. LUIS EDUARDO Thomas
--- NOTE | 2025-09-28 11:17 | CASEMGMT ---
CHARMAINE VALENCIA NOTE: Clarification received from Rosalva @ [employer] re: pt's home O2. Pt's current home O2 orders are 2 L/M w/exertion and 6 L/M @ HS. This was documented in home O2 verification intervention. Jumana KRISHNAMURTHY RN CM
--- NOTE | 2025-09-28 11:29 | CASEMGMT ---
Addendum entered by Emmie Perkins 09/28/25 13:54: Note sent via [facility] asking for referral to be cancelled. Original Note: Discharge Planning HH referral sent via [facility] to [facility]. Emmie Perkins DC Planning Asst.
--- NOTE | 2025-09-28 11:45 | CASEMGMT ---
Social Work SW spoke with the patient about DC to [facility] for rehab. Patient is agreeable with having a referral sent to [place]. LUIS EDUARDO Luna
--- NOTE | 2025-09-28 12:06 | CASEMGMT ---
Social Work SW spoke with the patient and she wants a referral to the [facility] instead of [facility]. LUIS EDUARDO Luna
--- NOTE | 2025-09-28 12:25 | CASEMGMT ---
Addendum entered by Emmie Perkins 09/28/25 13:54: [facility] accepted and will submit for precert. SW updated. Original Note: [facility] Emmie Perkins DC Planning Asst.
--- NOTE | 2025-09-28 13:55 | CASEMGMT ---
Social Work SW informed the [facility] that [facility] and is requesting approval with the insurance company. SW informed her SW will keep her updated. LUIS EDUARDO Luna
--- NOTE | 2025-09-28 14:46 | CASEMGMT ---
Social Work SW informed the patient that her insurance approved her [facility] tomorrow. LUIS EDUARDO Luna
--- NOTE | 2025-09-28 15:05 | CASEMGMT ---
Addendum entered by Emmie Perkins 09/29/25 08:34: *correction, [facility] has obtained auth. Original Note: [facility] has obtained auth to admit, effective admit date 09/29. Emmie Perkins DC Planning Asst.
--- NOTE | 2025-09-28 16:34 | NURSING ---
Report called to Sharyn trinh rn, [place] TO TRANSFER
[2025-09-29 04:40] VITALS: BP 148/93; PULSE 79; RESP 16; TEMP 36.6; O2SAT 96
[2025-09-29 07:01] VITALS: PULSE 88; RESP 18; O2SAT 97
[2025-09-29] MEDS: Budesonide Respules 0.5 MG/2 ML AMPUL.NEB. INHALATION (07:01)
[2025-09-29 08:37] VITALS: BP 134/65; PULSE 86; RESP 17; TEMP 36.8; O2SAT 94
[2025-09-29] MEDS: 0.9% Saline Lock 10 ML Syringe IV (08:51)
--- NOTE | 2025-09-29 11:19 | PCM.TXEXTCAR ---
Diet Diet Order/Speech Therapy: INPATIENT Hospital Diet / Speech Therapy Order(s) 09/26/25 04:39 Diet: Regular - General Food consistency:: Regular Liquid Consistency:: Regular/Thin Type of Dietary Supplement:: Ensure Plus High Protein Diet Comments: EPHP with dinner (vanilla or strawberry flavor) Routine Orders/Code Status Routine Lab Work: CBC and BMP Code Status: Full Code DC O2, CPAP, BIPAP needs Home O2 Discharge instructions: No Therapies Physical Therapy: Eval and Treat Occupational Therapy: Eval and Treat Problem/Diagnosis (1) Right thigh pain: Status: Acute Code(s): M79.651 - Pain in right thigh (2) Hip pain, right: Status: Acute Code(s): M25.551 - Pain in right hip (3) COPD (chronic obstructive pulmonary disease): Status: Acute Code(s): J44.9 - Chronic obstructive pulmonary disease, unspecified Plan 1. Hip pain ? CT abdomen and pelvis was unremarkable ? CT scan of the right lower extremity is unremarkable, no abscess or osseous issues ? D-dimer was elevated so Doppler was obtained which was negative for blood clot ? CRP is slightly elevated to 4.11 with a CPK of 180 and an ESR of 14 ? PT/OT ? No obvious source of the pain other than likely arthritis no further workup is necessary at this time 2. Essential HTN/HLD ? Blood pressure stable ? Continue with her home medications ? Continue with Lipitor 3. COPD ? Not in exacerbation ? Continue with her home inhalers 4. GERD ? Stable ? Continue with her home medications 5. Hyperthyroidism ? Stable ? Continue with methimazole DVT: Lovenox Allergies/Procedures Done in Hospital Allergies No Known Allergies Allergy (Verified 09/25/25 20:14) Procedures: None Type of Care/Length of Stay Estimated LOS: Convalescent Care Less Than 30 days Type of Care Needed: Skilled Rehab Potential: Good Prognosis: Good Additional Orders/Day of Discharge Day of Discharge: 09/29/25 Dietary and Speech Recommendations Dietitian Recommendations/Changes: Continue with Regular - General diet for liberalization to promote oral intakes. Will change ONS to EPHP 240mL with dinner vs 120mL TID with medpass. Will continue to follow, monitor oral intakes and modify nutrition interventions as needed. Discharge Plan Admission Admit Date/Time: 09/26/25 04:13 Attending Provider: Estevan Hutson Primary Care Provider: Leonie Castillo Consulting Providers: Agusto Orozco Instructions Patient Instructions: Abdominal Pain Additional Instructions / Restrictions: I recommend taking MiraLAX daily if not twice a day follow-up with your primary care doctor please return if getting worse Discharge Orders/Prescriptions Prescriptions: New oxycodone 5 mg Tablet 5 mg PO Q6H PRN PRN (Reason: Pain Score 1-10) 3 Days Qty: 10 0RF Continued furosemide 20 mg tablet 20 mg PO DAILY diclofenac sodium [Voltaren Arthritis Pain] 1 % gel 2 g topical BID PRN (Reason: pain) Rx Instructions: apply to single elbow, wrist or hand; for hand includes palm/fingers/back of hand aspirin 81 MG tablet,chewable 81 mg PO DAILY albuterol sulfate 18 GM HFA aerosol inhaler 2 puff inhalation Q4H PRN (Reason: Wheezing) Patient Comments: Inhale 2 Puffs as instructed every 4 hours as needed. atorvastatin 40 mg tablet 40 mg PO DAILY Trelegy Ellipta 100-62.5-25 mcg blister with device 1 ea inhalation DAILY hydrocodone-acetaminophen 5-325 mg tablet 1 tab PO Q6H PRN PRN (Reason: Pain) 3 Days Qty: 10 0RF omeprazole 40 mg capsule,delayed release(DR/EC) 40 mg PO DAILY lisinopril 30 mg tablet 30 mg PO DAILY famotidine 40 mg tablet 40 mg PO QHS methimazole 5 mg tablet 5 mg PO DAILY tizanidine 4 mg tablet 4 mg PO Q8 PRN (Reason: muscle spasms) ipratropium bromide 0.02 % Solution 0.5 mg inhalation Q6HWA.RT Qty: 75 0RF albuterol sulfate 2.5 mg /3 mL (0.083 %) Solution For Nebulization 2.5 mg inhalation Q2H PRN PRN (Reason: SOB &/OR WHEEZING) Qty: 90 0RF Referrals / Follow Up: Leonie Castillo MD [Primary Care Provider, Internal Medicine] Disposition Disposition (needs filled in before D/C Order can be placed): Assisted Facility (3) COPD (chronic obstructive pulmonary disease) Qualifiers: COPD type: COPD with acute exacerbation Qualified Code(s): J44.1 - Chronic obstructive pulmonary disease with (acute) exacerbation
--- NOTE | 2025-09-29 11:33 | CASEMGMT ---
Social Work Pt ready for d/c to [place] today. SW completed the hospital exemption form in the [facility] system for pt. DELANEY Barth
--- NOTE | 2025-09-29 11:36 | PHA.DC.MR.R ---
Pharmacy [place] Med Reconciliation Pharmacy Service has performed discharge medication reconciliation for this patient. The patient's discharge medication list was reviewed for discrepancies and discrepancies were resolved. Medications at Discharge Home Medications albuterol sulfate 90 mcg/actuation aerosol inhaler 2 puff inhalation Q4H PRN Wheezing 08/26/20 aspirin 81 mg chewable tablet 81 mg PO DAILY BLOOD CLOT 08/26/20 atorvastatin 40 mg tablet 40 mg PO DAILY 02/07/21 furosemide 20 mg tablet 20 mg PO DAILY 10/17/22 diclofenac sodium 1 % topical gel (Voltaren Arthritis Pain) 2 g topical BID PRN pain 02/15/23 omeprazole 40 mg capsule,delayed release 40 mg PO DAILY 04/27/24 famotidine 40 mg tablet 40 mg PO QHS 11/17/24 lisinopril 30 mg tablet 30 mg PO DAILY 11/17/24 methimazole 5 mg tablet 5 mg PO DAILY 11/17/24 tizanidine 4 mg tablet 4 mg PO Q8 PRN muscle spasms 11/17/24 albuterol sulfate 2.5 mg/3 mL (0.083 %) solution for nebulization 2.5 mg (3 mL) inhalation Q2H PRN PRN SOB &/OR WHEEZING #90 mL 11/23/24 ipratropium bromide 0.02 % solution for inhalation 0.5 mg (2.5 mL) inhalation Q6HWA.RT #75 mL 11/23/24 fluticasone fur. 100 mcg-umeclid 62.5 mcg-vilant 25 mcg inhalat.powder (Trelegy Ellipta) 1 ea inhalation DAILY 09/16/25 hydrocodone-acetaminophen 5-325mg 5mg-325mg 1 tab PO Q6H PRN PRN Pain 3 days #10 TABLETS 09/16/25 oxycodone 5 mg tablet 5 mg PO Q6H PRN PRN Pain Score 1-10 3 days #10 tabs 09/29/25
--- NOTE | 2025-09-29 11:50 | PCM.DC.SUM ---
Providers Date of Admission: 09/26/25 Primary Care Physician: Dr. Leonie Castillo MD Reason For Visit: RIGHT THIGH PAIN Diagnosis Discharge Diagnosis (1) Right thigh pain: Status: Acute Code(s): M79.651 - Pain in right thigh (2) Hip pain, right: Status: Acute Code(s): M25.551 - Pain in right hip (3) COPD (chronic obstructive pulmonary disease): Status: Acute Code(s): J44.9 - Chronic obstructive pulmonary disease, unspecified Qualifiers: COPD type: COPD with acute exacerbation Qualified Code(s): J44.1 - Chronic obstructive pulmonary disease with (acute) exacerbation Plan 1. Hip pain ? CT abdomen and pelvis was unremarkable ? CT scan of the right lower extremity is unremarkable, no abscess or osseous issues ? D-dimer was elevated so Doppler was obtained which was negative for blood clot ? CRP is slightly elevated to 4.11 with a CPK of 180 and an ESR of 14 ? PT/OT ? No obvious source of the pain other than likely arthritis no further workup is necessary at this time 2. Essential HTN/HLD ? Blood pressure stable ? Continue with her home medications ? Continue with Lipitor 3. COPD ? Not in exacerbation ? Continue with her home inhalers 4. GERD ? Stable ? Continue with her home medications 5. Hyperthyroidism ? Stable ? Continue with methimazole DVT: Lovenox Medications at Discharge Home Medications albuterol sulfate 90 mcg/actuation aerosol inhaler 2 puff inhalation Q4H PRN Wheezing 08/26/20 aspirin 81 mg chewable tablet 81 mg PO DAILY BLOOD CLOT 08/26/20 atorvastatin 40 mg tablet 40 mg PO DAILY 02/07/21 furosemide 20 mg tablet 20 mg PO DAILY 10/17/22 diclofenac sodium 1 % topical gel (Voltaren Arthritis Pain) 2 g topical BID PRN pain 02/15/23 omeprazole 40 mg capsule,delayed release 40 mg PO DAILY 04/27/24 famotidine 40 mg tablet 40 mg PO QHS 11/17/24 lisinopril 30 mg tablet 30 mg PO DAILY 11/17/24 methimazole 5 mg tablet 5 mg PO DAILY 11/17/24 tizanidine 4 mg tablet 4 mg PO Q8 PRN muscle spasms 11/17/24 albuterol sulfate 2.5 mg/3 mL (0.083 %) solution for nebulization 2.5 mg (3 mL) inhalation Q2H PRN PRN SOB &/OR WHEEZING #90 mL 11/23/24 ipratropium bromide 0.02 % solution for inhalation 0.5 mg (2.5 mL) inhalation Q6HWA.RT #75 mL 11/23/24 fluticasone fur. 100 mcg-umeclid 62.5 mcg-vilant 25 mcg inhalat.powder (Trelegy Ellipta) 1 ea inhalation DAILY 09/16/25 hydrocodone-acetaminophen 5-325mg 5mg-325mg 1 tab PO Q6H PRN PRN Pain 3 days #10 TABLETS 09/16/25 oxycodone 5 mg tablet 5 mg PO Q6H PRN PRN Pain Score 1-10 3 days #10 tabs 09/29/25 Hospital Course Operations None Procedures None Summary of Care Provided Minutes Spent on Discharge: 35 Hospital Course: Per HPI: INDIRA HOLLINGSWORTH, is a 70 F with COPD on 2 L oxygen presents with severe right-sided hip and lateral thigh pain. She is unable to walk on that side but denies any swelling, change in color or appearance, falling or trauma. She states she had a history of DVT at that side few years ago and she has been off anticoagulation at the moment. Patient was seen in the ED and had a CT abdomen/pelvis, was normal and was planned for discharge but she disagreed as her concern was not addressed. When seen, she was in severe pain very restless. Right hip range of motion was not limited or painful during flexion/extension and rotation, no swelling or change in skin or soft tissue appearance of the hip and thigh areas when compared to the left side. Knees were normal without swelling or restricted/painful range of motion as well. Vitals within normal except for hypertension possibly from pain. CBC and chemistry were normal. Patient will be admitted to the hospital for pain control as well as investigating her pain with a CT of the right hip and thigh with IV contrast and checking CK, ESR and CRP. If all negative will check for DVT although clinically does not look like it. Hospital Course: 1. Hip pain?70-year-old female presented to the hospital with right-sided hip pain and lateral thigh pain initially telling the emergency room that she was having abdominal pain. CT scan was unremarkable. She does have a history of degenerative disc disease however she was not complaining initially of any back pain and is still not complaining of any back pain. She localizes her hip pain to her right lateral hip. Pain levels have also been fairly inconsistent while here so unclear as to the etiology. She did have a hip x-ray which was negative for fracture and CT of the lower extremity was negative for any disease process. As she was continuing to complain of leg pain intermittently a D-dimer was obtained which was a little bit elevated so a venous Doppler study was obtained which was negative for DVT. Given the continued difficulty ambulating and pain management needs, PT and OT evaluated the patient and recommended SNF. I discussed with her the plan for discharge today and she expressed understanding of the risks and benefits of going to the skilled nursing and would like to go today. We did discuss the role of possible lumbar MRI if physical therapy did not lead to any improvement in her symptoms on an outpatient basis which she was agreeable to. 2. Essential hypertension, hyperlipidemia, chronic hypoxic respiratory failure in the setting of COPD, GERD, hypothyroidism all chronic medical conditions which complicate her care. Her home medications were continued where appropriate. She wears 6 L with ambulation and at night and 2 to 4 L at rest during the day which is her baseline. Physical Exam Narrative General: Alert, Oriented x3, Cooperative, No apparent distress HEENT: Atraumatic, PERRLA, EOMI, Normocephalic Oral: Moist Mucosa Neck: Supple, No JVD Lungs: Diminished, Normal air movement, No rhonchi, No wheeze, No rales Cardiovascular: Regular rate, Regular Rhythm, Normal S1, Normal S2, No murmurs Abdomen: Soft, Non Tender, Non-Distended, No Hepato-splenomegaly Extremities: No edema, Capillary Refill Less than 3 Seconds Skin: No rashes, No breakdown Musculoskeletal: No Tenderness to Palpation of Joints or Extremities Neurological: No focal neurological deficits, moves all extremities Psych/Mental Status: Normal Affect, Appropriate Weight / BMI Weight Weight: 206 lb 2.115 oz Body Mass Index (BMI) 33.3 ABG / Lab / Microbiology Data 09/28/25 06:36 09/28/25 06:36 D/C Instructions DC O2, CPAP, BIPAP Needs Home O2 Discharge instructions: No Meaningful Use Info Meaningful Use Meaningful Use Diagnoses (Choose all that apply): None applicable Discharge Plan Admission Admit Date/Time: 09/26/25 04:13 Attending Provider: Estevan Hutson Primary Care Provider: Leonie Castillo Consulting Providers: Agusto Orozco Instructions Patient Instructions: Abdominal Pain Additional Instructions / Restrictions: I recommend taking MiraLAX daily if not twice a day follow-up with your primary care doctor please return if getting worse Discharge Orders/Prescriptions Prescriptions: New oxycodone 5 mg Tablet 5 mg PO Q6H PRN PRN (Reason: Pain Score 1-10) 3 Days Qty: 10 0RF Continued furosemide 20 mg tablet 20 mg PO DAILY diclofenac sodium [Voltaren Arthritis Pain] 1 % gel 2 g topical BID PRN (Reason: pain) Rx Instructions: apply to single elbow, wrist or hand; for hand includes palm/fingers/back of hand aspirin 81 MG tablet,chewable 81 mg PO DAILY albuterol sulfate 18 GM HFA aerosol inhaler 2 puff inhalation Q4H PRN (Reason: Wheezing) Patient Comments: Inhale 2 Puffs as instructed every 4 hours as needed. atorvastatin 40 mg tablet 40 mg PO DAILY Trelegy Ellipta 100-62.5-25 mcg blister with device 1 ea inhalation DAILY hydrocodone-acetaminophen 5-325 mg tablet 1 tab PO Q6H PRN PRN (Reason: Pain) 3 Days Qty: 10 0RF omeprazole 40 mg capsule,delayed release(DR/EC) 40 mg PO DAILY lisinopril 30 mg tablet 30 mg PO DAILY famotidine 40 mg tablet 40 mg PO QHS methimazole 5 mg tablet 5 mg PO DAILY tizanidine 4 mg tablet 4 mg PO Q8 PRN (Reason: muscle spasms) ipratropium bromide 0.02 % Solution 0.5 mg inhalation Q6HWA.RT Qty: 75 0RF albuterol sulfate 2.5 mg /3 mL (0.083 %) Solution For Nebulization 2.5 mg inhalation Q2H PRN PRN (Reason: SOB &/OR WHEEZING) Qty: 90 0RF Referrals / Follow Up: Leonie Castillo MD [Primary Care Provider, Internal Medicine] Disposition Disposition (needs filled in before D/C Order can be placed): [facility] Facility Charges/Coding Visit Charges Inpatient E&M: 72507 Disch Hosp >30min
--- NOTE | 2025-09-29 12:08 | CASEMGMT ---
Discharge Planning Discharge orders, signed med list, and transport time sent via [facility] to [facility]. Physicians will transport pt by wheelchair at 2p. Nursing, SW, pt, and her friend (Felicitas Glez) updated. Emmie Perkins DC Planning Asst.
[2025-09-29] MEDS: Polyethylene Glycol 3350 17 GM PACKET PO (13:11)
[2025-09-29 13:12] VITALS: BP 125/90; PULSE 70; RESP 16; TEMP 36.7; O2SAT 94
--- NOTE | 2025-09-29 14:09 | NURSING ---
REPORT CALLED [facility]
== END 2025-09-29 14:58 | DRG 554 ==
LOC: ED 09-26 01:59 → PCU 09-26 05:15 → MS3 09-28 16:54
PROVIDERS: Admitting Provider Internal Medicine; Emergency Provider Emergency Medicine; PCP Internal Medicine; Referring Provider Internal Medicine; Visit Provider Family Medicine
DX: M16.11 Unilateral primary osteoarthritis, right hip (principal); J44.1 Chronic obstructive pulmonary disease with (acute) exacerbation; J96.11 Chronic respiratory failure with hypoxia; Z99.81 Dependence on supplemental oxygen; E05.90 Thyrotoxicosis, unspecified without thyrotoxic crisis or storm; I10 Essential (primary) hypertension; E78.00 Pure hypercholesterolemia, unspecified; M79.651 Pain in right thigh; K21.9 Gastro-esophageal reflux disease without esophagitis; I25.2 Old myocardial infarction; Z87.891 Personal history of nicotine dependence; Z79.82 Long term (current) use of aspirin; Z79.899 Other long term (current) drug therapy; Z79.51 Long term (current) use of inhaled steroids; Z86.718 Personal history of other venous thrombosis and embolism
CPT/HCPCS: 36415; 73502; 73700; 74177; 80048; 81001; 82550; 83690; 83735; 85025; 85379; 85652; 86140; 93971; 94640; 97110; 97162; 97166; 97530; 97802; 99283; Q9967; A4216; J2405